=== PATIENT | male | born 1995 | race Caucasian/White ===

== ENCOUNTER 2025-02-02 13:23 | Inpatient (IN) | payer OTHER, SELFPAY ==
[2025-02-02] VITALS (14 sets, daily range): BP systolic 112–143; BP diastolic 69–84; BMI 33.3
--- NOTE | 2025-02-02 10:14 | ED.GENMED ---
History of Present Illness
General
Chief Complaint: Wound Check/Suture Removal
Source: patient, records and police
Exam Limitations: none
Time Seen by Provider: 02/02/25 09:37
Nursing documentation reviewed up to this point in time: agreed with
History of Present Illness
History of Present Illness:
29-year-old male with extensive medical history including insulin-dependent diabetes, CAD, CHF, CKD, Guillain-Potts� syndrome, right BKA and recent left 1st and 2nd toe amputation presents to the emergency room from [facility]
for evaluation of pain and bleeding from left foot. Patient reports that he is from [place] and that he receives most of his care throughout his life at [facility] in [place]. He says that unfortunately because of his Guillain-Potts�
syndrome he will sometimes drag his foot and sustained a bad foot wound on his left foot that ultimately became infected and he developed osteomyelitis and required amputation of his 1st and 2nd toe. This was done while incarcerated�was transported
to [facility] for this procedure. Procedure was on 01/21/2025. He says that he also had a heel wound on the left that was debrided at that time. He says that he was discharged on 01/24/2025 and was transported to [place]
in police custody for incarceration in [facility]. He says that after he got off of the plane from [place] he was having bleeding and pain from the surgical sites and was transported to [facility]. He says that he was admitted
at [facility] until yesterday at which point he was discharged back to skilled nursing. Today he bled through his dressing mainly from his heel wound on the left. I spoke to the medical staff at present and they had trouble stopping the bleeding with direct
pressure and so he was referred to the ER. He does have pain in the left foot after the operation but no drainage noted. No other acute issues. He is not apparently on blood thinners.
Review of Systems
Review of Systems
All Other Systems: ROS reviewed and negative except as documented in HPI and ROS
Constitutional: Denies fever
Skin: Reports other (Bleeding from left foot wound)
Phy Exam
Physical Exam
Physical Exam:
General: Awake, alert, oriented x3; no acute distress
Head: Normocephalic, atraumatic
Eyes: Conjunctiva normal
Throat: Airway intact, handling secretions
Neck: Trachea midline, no JVD
Lungs: Clear to auscultation bilaterally, no wheezing, rales, rhonchi
Heart: Regular rate and rhythm, no murmurs, gallops, or rubs
Abd: Soft, non distended, nontender
Skin: Patient has approximately 2 cm diameter wound on the medial aspect of the right heel with slow steady bleeding�oozing, no pulsatile bleeding; no drainage, no erythema the skin or warmth; he also has surgical incision on the tip of the foot
status post amputation of the 1st and 2nd digits of the left foot�sutures remain in place, no wound dehiscence, no drainage or erythema and no bleeding; very minor scab on the right BKA stump but no erythema, warmth or signs of acute infection
Extremities: Right BKA, left foot findings as above
Scores
Heart Failure Risk
Heart Failure Risk Score: Not Applicable
Heart Score for Chest Pain Patients
STEMI patient?: Not applicable
Withdrawal Assessment of Alcohol
Withdrawal Assessment Completed?: Not applicable
Course
Orders/Labs/Results
Orders:
Orders
02/02/25 10:33
PODIATRY CONSULT Urgent
Consulting Provider: Silvina Whatley
Was physician already notified: Yes
02/02/25 10:39
Complete Blood Count/With Diff Urgent
Hemoglobin A1c [Glycohemoglobin (HgbA1c)] Urgent
02/02/25 11:30
Cardiovascular Evaluation Urgent
Comprehensive Metabolic Panel Urgent
02/02/25 12:14
0.9% Sodium Chloride 1000 ml [Nss] 1,000 ml IV BOLUS
Hydrocodone 5/APAP 325 [[place] 5/325] 1 tablet PO NOW STA
02/02/25 12:23
Type+Screen Urgent
PTT Urgent
Prothrombin Time Urgent
Abnormal Lab Results
02/02/25 02/02/25
10:39 11:30
RBC 2.71 L 10^6/uL
(4.70-6.10)
Hgb 7.6 L g/dL
(13.0-18.0)
Hct 23.9 L %
(39.0-52.0)
MCHC 31.8 L g/dL
(33.0-37.0)
RDW 16.4 H %
(11.5-14.5)
Plt Count 412 H 10^3/uL
(130-400)
MPV 11.2 H fL
(7.4-10.4)
Abs Immat Gran (auto) 0.1 H 10^3/uL
(0-0.05)
Absolute Neuts (auto) 6.9 H 10^3/uL
(1.4-6.5)
Absolute Monos (auto) 0.7 H 10^3/uL
(0.1-0.6)
Immature Gran % 1.3 H %
(0-0.5)
Lymphocytes % 17.9 L %
(20.5-51.1)
BUN 60 H mg/dl
(9-20)
Glucose 327 H mg/dl
(70-99)
Triglycerides 316 H mg/dl
(10-149)
VLDL Cholesterol, Calc 63 H mg/dl
(0-30)
02/02/25 10:39
02/02/25 11:30
Vital Signs
Initial and Last Documented VS:
Initial Vital Signs
Temp Pulse Resp BP Pulse Ox
36.7 C 82 16 143/84 98
02/02/25 09:17 02/02/25 09:17 02/02/25 09:17 02/02/25 09:17 02/02/25 09:17
Last Documented Vital Signs
Temp Pulse Resp BP Pulse Ox
36.7 C 80 9 143/84 98
02/02/25 09:17 02/02/25 10:30 02/02/25 10:30 02/02/25 09:17 02/02/25 10:16
MDM/Problems Addressed
Differential Diagnosis Includes:
Chronic wounds
MDM/Problems Addressed:
29-year-old male with complicated recent history presents to the ER essentially for uncontrolled bleeding from recently debrided left heel wound. He also had recent amputation of the first second digit and has clean appearing incision today with no
bleeding. His vital signs are normal. Physical exam as above. I applied Surgicel and gauze dressing for hemostasis of heel wounds. They do not appear necessarily to be acutely infected but he does have area of necrotic appearing tissue near the
heel wound and with poorly controlled bleeding I discussed with podiatry for assessment. Will check a set of baseline lab work. Reassess after the above. I did make record requests with both [facility] and [facility] from recent
admissions to try to obtain collateral history.
Reviewed chart from [facility]�it sounds like he had osteomyelitis and there was concern for necrotizing infection with subcutaneous emphysema at the time. We are still awaiting chart from [facility].
Labs reviewed: CBC shows anemia to 7.6 hemoglobin today�patient says that his baseline runs around 9.5. Still has some light oozing from his wound but with Surgicel dressing applied and has greatly improved. Discussed with podiatry they will
consult on patient. His chemistry today shows marked hyperglycemia to 327 and given this finding in the setting of open wound to the foot I think he does need tighter glucose control. Will plan to admit for trending of hemoglobin, podiatry
consultation and better glucose control. Discussed case with hospitalist for admission.
Chronic conditions affecting care:
Insulin-dependent diabetes, Guillain-Potts� syndrome
*Pulse Oximetry
SaO2: 98
Oxygen Mode of Delivery: Room air
Patient hypoxic: no (98%)
*Critical Care Note
Total Time (30-74mins, 75-104mins- exclusive of procedures): Not Applicable
Data Reviewed
Source: patient, records and police
Patient Management
Discussion with other providers: Hospitalist (Discussed with hospitalist) and Baggage Agent (Discussed with podiatry)
Escalation/DeEscalation of care consider admission/obs:
Admission indicated
ED Attending Note
-
Portions of this chart may have been created with voice recognition software.� Occasional wrong word or��sound alike� substitutions may have occurred due to the inherent limitations of voice recognition software.
Discharge Plan
Departure
Patient Disposition: Admit
Date of Disposition: 02/02/25
Time of Disposition: 12:25
Admit to doctor: Silas
Presentation/result/management discussed w/ accepting MD/DO: Hospitalist
Discharge Problem:
Hyperglycemia, Acute blood loss anemia, Post-op bleeding, Wound, open, foot
Referrals:
[facility] [Family Provider, General]
Interventions
Interventions:
*Risk Screen - Suicide Last Done: 02/02/25 09:17
*General Assessment Last Done: 02/02/25 09:17
*Neglect/Abuse Screening Last Done: 02/02/25 09:17
*ED COVID-19 Vaccine History Last Done: 02/02/25 10:42
Discharge Date and Time
Print Language: IVORIAN
[2025-02-02 10:45] LABS: Hematocrit 23.9 % (39.0-52.0); Hemoglobin 7.6 g/dL (13.0-18.0); Mean Corp Hgb Conc. 31.8 g/dL (33.0-37.0); Mean Corpuscular Volume 88.2 fL (80.0-94.0); Nucleated Red Blood Cells % 0 % (-); Platelet Count 412 10^3/uL (130-400); Red Cell Dist. Width 16.4 % (11.5-14.5)
[2025-02-02 11:52] LABS: ALT (SGPT) 22 U/L (0-50); AST (SGOT) 24 U/L (17-59); Albumin 3.6 g/dl (3.5-5.0); Alkaline Phosphatase 93 U/L (38-126); Blood Urea Nitrogen 60 mg/dl (9-20); Calcium 8.6 mg/dl (8.4-10.2); Carbon Dioxide 29 mmol/L (22-30); Chloride 100 mmol/L (98-107); Estimated Creatinine Clearance 117 ml/min; Glucose 327 mg/dl (70-99); HDL Cholesterol 33 mg/dl; LDL Cholesterol, Calculated 87 mg/dl; Potassium 4.6 mmol/L (3.5-5.1); Sodium 135 mmol/L (135-145); Total Protein 6.9 g/dl (6.3-8.2); Very Low Density Lipoprotein 63 mg/dl (0-30); eGFR > 60.00
--- NOTE | 2025-02-02 12:21 | HPS.HSE ---
Family Physician
-
Family Physician: Facility [facility]. [facility]
Chief Complaint
-
bleeding wound
History of Present Illness
Mr. Sang Anderson is a 29 yo man with hx IDDM, CAD with hx multiple PCI, CHF, CKD, GBS (dx 2018), right BKA, chronic left heel wound and recent left first and second toe amputation (01/21/25), who presents to the ER with pain and bleeding from
wound in left foot.
Patient is from [place]. Due to GBS, he sometimes drags left foot and sustained wound which became infected, he developed osteo and is s/p amputation of 1st and 2nd toe (01/21/25). This was done while patient was incarcerated. Patient was
transported to [place] on 01/24/25 to police custody for incarceration in [facility]. He had bleeding after he got off plane and was hospitalized at [facility]. Patient was discharged yesterday. He bled through dressing today, and
was therefore brought to the ER.
Patient states at recent hospitalization at [place], his pain was controlled and he received local wound care, no surgical intervention.
Currently states pain in heel is getting worse. He states this area never stopped bleeding since he arrived to [place] last week.
No fevers/chills. No shortness of breath. He states the weakness in his left lower extremity from GBS has been getting worse over past several months. No nausea/vomiting/diarrhea. No abdominal pain.
Medical History
Past Medical History
Past Medical History: Reports Other (IDDM, CAD, CHF, CKD, GBS, right BKA)
Past Surgical History: Reports Orthopedic (first and second left toe amputations)
Social History
Tobacco: Non-smoker
Drug: None
Family History
Family History: Not pertinent
Allergies / Home Medications
Allergies reflects when Allergies were last updated in [facility].
Home Medications with original date entered in [facility]
Allergy/Medication List:
Allergies
Allergy/AdvReac Type Severity Reaction Status Date / Time
ibuprofen Allergy Unknown Unknown Verified 02/02/25 09:14
oxycodone Allergy Unknown Unknown Verified 02/02/25 09:14
Penicillins Allergy Unknown Unknown Verified 02/02/25 09:14
sweet potato Allergy Unknown Unknown Verified 02/02/25 09:14
tuna oil Allergy Unknown Unknown Verified 02/02/25 09:14
turkey Allergy Unknown Unknown Verified 02/02/25 09:14
Home Medications
acetaminophen 300 mg-codeine 30 mg tablet 2 tab PO .TAPER Pain 02/02/25
aspirin 81 mg tablet,delayed release 81 mg PO DAILY Blood Clot Prevention/Tx 02/02/25
atorvastatin 80 mg tablet 80 mg PO HS High Cholesterol 02/02/25
carvedilol 25 mg tablet 25 mg PO BID Heart Failure 02/02/25
clopidogrel 75 mg tablet 75 mg PO DAILY Blood Clot Prevention/Tx 02/02/25
insulin glargine 100 unit/mL (3 mL) subcutaneous pen (Lantus Solostar U-100 Insulin) 30 unit SC AMHS Diabetes 02/02/25
insulin lispro 100 unit/mL subcutaneous pen 5 unit SC AC Diabetes 02/02/25
isosorbide mononitrate 60 mg tablet,extended release 24 hr 60 mg PO DAILY Heart Disease/Condition 02/02/25
pantoprazole 40 mg tablet,delayed release (Protonix) 40 mg PO DAILY Gastrointestinal Issue 02/02/25
ranolazine 1,000 mg tablet,extended release,12 hr 1,000 mg PO BID Heart Disease/Condition 02/02/25
torsemide 20 mg tablet 40 mg PO DAILY Fluid Retention/Swelling 02/02/25
Review of Systems
-
History Source: Patient
A 12 point ROS was completed and negative except as noted: Yes
Physical Exam
Vital Signs
Vital Signs
Temp Pulse Resp BP Pulse Ox
98.1 F 80 9 143/84 98
02/02/25 09:17 02/02/25 10:30 02/02/25 10:30 02/02/25 09:17 02/02/25 10:16
Physical Exam
General: No Apparent Distress
HEENT: PERRLA
Respiratory: Clear; No Wheezes
Cardiac: S1/S2 and Regular Rhythm
GI: Soft and Non Tender
Musculoskeletal: Other (right BKA; left foot with steristrips on left heel; sutures in place s/p toe amputation )
Neuro: AO x 3
Psych: Calm
Laboratory Results
-
02/02/25 10:39
02/02/25 11:30
Laboratory Results
Total Bilirubin 0.5 mg/dl (0.2-1.3) 02/02/25 11:30
AST 24 U/L (17-59) 02/02/25 11:30
ALT 22 U/L (0-50) 02/02/25 11:30
Alkaline Phosphatase 93 U/L (38-126) 02/02/25 11:30
Data Reviewed
-
Diagnostic Radiology: Report Reviewed by me
Lab Data: Labs Reviewed by me
Impression/Plan
-
Mr. Sang Anderson is a 29 yo man with hx DM 1, CAD, CHF, CKD, GBS, right BKA and recent left first and second toe amputation who presents to the ER with pain and bleeding from wound in left foot.
Triage VS: T 36.7 C, P 82, RR 16, BP 143/84, SpO2 98%
LABS: WBC 9.7, Hg 7.6, PLT 412, Na 135, K+ 4.6, Cl 100, CO2 29, BUN 60, Cr 1.2, Glucose 327, liver enzymes WNL
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
Osteomyelitis of left hallux s/p amputation on 01/21/25
-patient recently hospitalized in [place] where CT showed subcutaneous emphysema in the hallux s/p 1st and 2nd amputation
-s/p debridement of heel now with persistent bleeding. Per Dr. Posey, small area of necrosis in center, may need further debridement
-Podiatry consulted
-obtain LE arterial US
-pain control
Acute Blood Loss Anemia
-monitor on telemetry until Hg stable
-transfuse 1 unit for Hg <8, given patient's significant cardiac history
-trend Hg
IDDM
Hyperglycemia
-insulin 8 units subQ now
-patient is on Lantus 30units BID at home; aspart 5 units TID pre-meals; start with Lantus 20 units BID and aspart 3 units - adjust as needed
-ISS low
CAD
Hx PCI
-patient states that last stent in his heart was over a year ago
-hold Plavix in setting of bleed
-aspirin 81mg PO QD
-Atorvastatin 80mg PO qhs
-DATA GOVERNANCE ANALYST Coreg, Ranexa
Essential HTN
-DATA GOVERNANCE ANALYST Coreg, Imdur
HF, unknown EF
-continue DATA GOVERNANCE ANALYST Coreg, Imdur
-DATA GOVERNANCE ANALYST Torsemide
Guillian [place]
-PT consult when cleared by Podiatry
GERD
-DATA GOVERNANCE ANALYST Protonix
DVT PPx - SCD (on left)
FULL CODE
76 minutes spent on patient care
[2025-02-02 12:24] LABS: Glycohemoglobin (HgbA1c) 8.1 % (4.0-5.6)
[2025-02-02] MEDS: NOVOLIN R 8 UNITS SC (13:05)
[2025-02-02] MEDS: NSS 1000 IV (13:06)
[2025-02-02] MEDS: NORCO 5/325 1 TABLET PO ×2 (13:06→20:19)
[2025-02-02 13:19] LABS: INR 0.93; PT 13.0 Sec (11.4-14.6)
[2025-02-02 13:20] LABS: APTT 24.3 Sec (23.4-35.0)
[2025-02-02 14:21] LABS: Glucose - Point of Care 272 mg/dl (70-99)
--- NOTE | 2025-02-02 14:38 | CM ---
Patient seen in ED. Patient is currently with guards and plan is to [facility] when medically appropriate. CM will call to [facility] to confirm plan. CM will continue to follow for discharge planning needs.
Plan; return to [facility]
[2025-02-02] MEDS: DILAUDID 0.5 MG IV ×2 (15:58→22:39)
--- NOTE | 2025-02-02 16:42 | PTCARENOTE ---
1632- Pt received to room 328 accompanied by 2 officers.
[2025-02-02 16:51] LABS: Glucose - Point of Care 183 mg/dl (70-99)
--- NOTE | 2025-02-02 17:35 | PTCARENOTE ---
Rn institutional research coordinator- Patient requesting to see the larry. Call placed and left message.
[2025-02-02] MEDS: NOVOLOG FLEXPEN 3 UNITS SC (18:18)
[2025-02-02] MEDS: NOVOLOG FLEXPEN-LOW RESISTANCE 1 UNITS SC (18:18)
[2025-02-02] MEDS: RANEXA EXTENDED RELEASE 1000 MG PO (20:16)
[2025-02-02] MEDS: COREG 25 MG PO (20:16)
--- NOTE | 2025-02-02 22:00 | PTCARENOTE ---
pt blood transfusion completed. vss. no reaction noted. later pt had a soft bm. then a some amount of BRBPR. pt reports hx of hemorrhoids. hgb 8.2 informed ammunition assembly ii laborer Shante. pt has serial h&h already ordered.
[2025-02-02 22:34] LABS: Hemoglobin 8.2 g/dL (13.0-18.0)
[2025-02-02 22:35] LABS: Glucose - Point of Care 215 mg/dl (70-99)
[2025-02-02] MEDS: LIPITOR 80 MG PO (22:37)
[2025-02-02] MEDS: LANTUS 0.2 UNITS SC (22:37)
[2025-02-03] MEDS: NORCO 5/325 1 TABLET PO ×5 (00:47→20:49)
[2025-02-03 03:07] VITALS: BP 126/82
[2025-02-03] MEDS: DILAUDID 0.5 MG IV ×4 (03:23→16:28)
[2025-02-03 06:00] VITALS: BMI 32.1
[2025-02-03 07:50] LABS: Glucose - Point of Care 97 mg/dl (70-99)
[2025-02-03] MEDS: NOVOLOG FLEXPEN-LOW RESISTANCE SC ×3 (08:05→16:37)
[2025-02-03 08:07] VITALS: BP 120/79
[2025-02-03] MEDS: LANTUS 0.2 UNITS SC ×2 (08:07→20:49)
[2025-02-03] MEDS: NOVOLOG FLEXPEN 3 UNITS SC ×3 (08:07→16:37)
[2025-02-03] MEDS: ASPIR LOW (ENTERIC COATED) 81 MG PO (08:08)
[2025-02-03] MEDS: PROTONIX 40 MG PO (08:08)
[2025-02-03] MEDS: DEMADEX 40 MG PO (08:08)
[2025-02-03] MEDS: RANEXA EXTENDED RELEASE 1000 MG PO ×2 (08:08→19:55)
[2025-02-03] MEDS: COREG 25 MG PO ×2 (08:08→19:55)
[2025-02-03] MEDS: IMDUR (EXTENDED RELEASE) 60 MG PO (08:09)
[2025-02-03 08:16] LABS: Hematocrit 26.0 % (39.0-52.0); Hemoglobin 8.3 g/dL (13.0-18.0); Mean Corp Hgb Conc. 31.9 g/dL (33.0-37.0); Mean Corpuscular Volume 87.8 fL (80.0-94.0); Nucleated Red Blood Cells % 0 % (-); Platelet Count 390 10^3/uL (130-400); Red Cell Dist. Width 16.7 % (11.5-14.5)
[2025-02-03 08:43] LABS: Blood Urea Nitrogen 45 mg/dl (9-20); Calcium 8.7 mg/dl (8.4-10.2); Carbon Dioxide 30 mmol/L (22-30); Chloride 105 mmol/L (98-107); Estimated Creatinine Clearance > 125 ml/min; Glucose 95 mg/dl (70-99); Magnesium 2.0 mg/dl (1.6-2.3); Potassium 4.1 mmol/L (3.5-5.1); Sodium 140 mmol/L (135-145); eGFR > 60.00
--- NOTE | 2025-02-03 10:25 | PTCARENOTE ---
pt noted to be bleeding through dressing on LLE. MD Causey and MD Lora made aware. MD lora just left bedside. MD cauesy to arrive around 1200. andriy bandage applied to provided pressure; intervention endorsed by MD Causey. H&H to
be walker at 1330. pt denies feeling lightheaded/dizzy. plan of care continues to be followed.
[2025-02-03 11:23] VITALS: BP 128/77
[2025-02-03 11:42] LABS: Glucose - Point of Care 90 mg/dl (70-99)
--- NOTE | 2025-02-03 12:59 | CM ---
Pt admitted from ED with bleeding wound due to dragging his foot due to Guillain-Potts� Syndrome. Recently moved from [place] to [place].
CM following for discharge to [facility] when medically cleared.
Report: [phone]
--- NOTE | 2025-02-03 13:24 | W.PN.HOSP.TC ---
Today's Communication/Plan
-
Hold Plavix
Pressure to the wound.
Podiatry evaluation
Trend hemoglobin transfuse if below 8
Assessment / Plan
Assessment / Plan
Impression
Mr. Sang Anderson is a 29 yo man with hx DM 1, CAD, CHF, CKD, GBS, right BKA and recent left first and second toe amputation who presents to the ER with pain and bleeding from wound in left foot.
Chronic medial heel wound left foot with soft tissue hemorrhage secondary possibly mechanical trauma and antiplatelet/Plavix
Osteomyelitis of the left hallux status post amputation on 01/21/2025.
Acute blood loss anemia requiring transfusion
IDDM with hyperglycemia
CAD.
Essential hypertension
Heart failure unknown EF, compensated
History of GBS
GERD.
Plan:
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
Osteomyelitis of left hallux s/p amputation on 01/21/25
-patient recently hospitalized in [place] where CT showed subcutaneous emphysema in the hallux s/p 1st and 2nd amputation
-s/p debridement of heel now with persistent bleeding. Per Dr. Posey, small area of necrosis in center, may need further debridement
-Podiatry consulted
- Arterial ultrasound without significant stenosis Limited study given prior amputation.
-pain control
Acute Blood Loss Anemia
-monitor on telemetry until Hg stable
- S/p transfusion 1 unit for Hg <8, given patient's significant cardiac history
-trend Hg transfuse to keep above 8
IDDM
Hyperglycemia
-insulin 8 units subQ now
-patient is on Lantus 30units BID at home; aspart 5 units TID pre-meals; start with Lantus 20 units BID and aspart 3 units - adjust as needed
-ISS low
CAD
Hx PCI
-patient states that last stent in his heart was over a year ago
-hold Plavix in setting of bleed
-aspirin 81mg PO QD
-Atorvastatin 80mg PO qhs
-HARNESS CUTTER Coreg, Ranexa
Essential HTN
-HARNESS CUTTER Coreg, Imdur
HF, unknown EF
-continue HARNESS CUTTER Coreg, Imdur
-HARNESS CUTTER Torsemide
Guillian [place]
-PT consult when cleared by Podiatry
GERD
-HARNESS CUTTER Protonix
DVT PPx - SCD (on left)
FULL CODE
Anticipated Discharge: 24 - 48 hours
Subjective/Interval History
-
Date of Service: February 03, 2025
Objective Data
-
Labs:
Laboratory Results
02/03/25 02/03/25 02/03/25
02:00 03:15 07:46
WBC 7.7
Hgb Cancelled Cancelled 8.3 L
Hct Cancelled 26.0 L
Plt Count 390
Sodium 140
Potassium 4.1
Chloride 105
Carbon Dioxide 30
BUN 45 H
Creatinine 1.1
Glucose 95
Calcium 8.7
02/03/25 02/03/25 02/03/25
10:00 11:15 13:30
WBC
Hgb Cancelled Cancelled Pending
Hct Cancelled Pending
Plt Count
Sodium
Potassium
Chloride
Carbon Dioxide
BUN
Creatinine
Glucose
Calcium
02/03/25 02/03/25
19:15 21:30
WBC
Hgb Cancelled Pending
Hct Cancelled Pending
Plt Count
Sodium
Potassium
Chloride
Carbon Dioxide
BUN
Creatinine
Glucose
Calcium
Vital Signs:
Vital Signs
Temp Pulse Resp BP Pulse Ox
99.1 F 84 14 128/77 99
02/03/25 11:23 02/03/25 11:23 02/03/25 11:23 02/03/25 11:23 02/03/25 11:23
I&O
02/02/25 02/03/25 02/04/25
06:59 06:59 06:59
Intake Total 730 / 730 1080 / 1080
Output Total 1400 / 1400
Balance -670 / -670 1080 / 1080
Physical Exam
-
General: Well Developed and No Apparent Distress
HEENT: Normocephalic, Atraumatic and Moist Mucous Membranes
Respiratory: Clear to Auscultation
Cardiac: Regular Rhythm and S1/S2; Negative Murmur, Rub or Gallop
GI: Soft, Nontender, Nondistended and Normal Bowel Sounds; Negative Organomegaly
Rectal: Deferred by Provider
Musculoskeletal: No Clubbing, No Cyanosis, No Edema and Other (Right BKA)
Skin: Negative Rash
Neuro: Nonfocal/Grossly Intact
--- NOTE | 2025-02-03 13:58 | CON.MD ---
Consultation - Medical
-
Consult for left foot pain and bleeding. 29 year old male admitted with bleeding from left heel. Amputation left 1,2 toes and debridement of left medial heel ulcer on 01/21/25. Taken to the ED as patient bled through surgical dressings. PMH
includes IDDM, CAD, CHF, CKD, Guillain-[place] as well as right BKA.
Patient seen with Nisha from wound care. Dressing clean and in tact with blood soaked through at the medial heel. Dressing removed to reveal no local edema or erythema and no cellulitis. Circular wound at the medial heel approximately 3 cm in
diameter with stable wound edges, central granulation and no sign of soft tissue necrosis. No malodor or drainage present and no active bleeding. Surgical site from left 1,2 toe amputation stable with sutures in tact. No dehiscence and no erythema
present at the forefoot area.
WBC 7.7 with most recent Hgb 26.0 and afebrile. Ultrasound performed shows DP and PT arteries with monophasic wave forms. Arterial duplex of more proximal arteries with multiphasic wave forms. IRVING unmeasurable due to non compressible arteries.
Impression
-Left heel surgical site with uncontrolled bleeding
Status post left hallux and 2nd digit amputation due to osteomyelitis and debridement of left heel ulcer 01/21/25
No sign of surrounding soft tissue infection Ulcer granular with stable edges and no current active bleeding.
Ultrasound shows noncompressible arteries. With an open surgical site, calcified arteries do not compress with normal bandaging causing the wound to bleed with any movement.
Discussed with wound care use of alginate dressing to promote blood clotting at sight
If abnormal bleeding continues, may consider splint to prevent ankle movement
No surgical intervention needed at this time
-IDDM
-CHF
-CAD
-CKD
-Guillain-[place]
[2025-02-03 14:13] LABS: Hematocrit 26.7 % (39.0-52.0); Hemoglobin 8.6 g/dL (13.0-18.0)
[2025-02-03 15:00] VITALS: BP 139/72
[2025-02-03 15:07] VITALS: BMI 32.1
--- NOTE | 2025-02-03 15:41 | WOUNDNOTE ---
[facility] RN note: Patient admitted with left bleeding newly debrided heel wound.
See H&P for complete history.
PMH: IDDM, CHF, CAD, CKD, Guillain-[place]
Wound Location and type/assessment: Patient admitted with left bleeding newly debrided left heel wound (01/21). Patient with recent amputations of first and second toe with sutures intact. Heel with saturated sanguinous dressings, but no erythema,
pain or odor noted. Right BKA intact. Patient is able to turn self in bed and sacrum is intact.
Appetite: Fair
Pressure redistribution devices in place: Versa Care with Accumax, left heel off-loaded with pillow under calf.
Plan: Consulted with Dr. Whatley and plan is for daily wound care to heel with alginate dressing to help manage drainage. Will confirm orders with hospitalist and update nurse. Updated care plan and will follow as needed.
Note to case management of equipment requested for discharge:
Recommend follow up at wound care center upon discharge.
--- NOTE | 2025-02-03 15:52 | WOUNDNOTE ---
TOE [facility] SITE 1995, [id number]
--- NOTE | 2025-02-03 15:53 | WOUNDNOTE ---
LEFT HEEL 1995, [id number]
[2025-02-03 16:38] LABS: Glucose - Point of Care 100 mg/dl (70-99)
[2025-02-03 19:14] VITALS: BP 124/69
[2025-02-03 20:42] LABS: Glucose - Point of Care 132 mg/dl (70-99)
[2025-02-03] MEDS: LIPITOR 80 MG PO (20:49)
[2025-02-03 23:12] VITALS: BP 152/88
[2025-02-04 03:07] VITALS: BP 160/88
[2025-02-04 06:30] LABS: Hematocrit 27.1 % (39.0-52.0); Hemoglobin 8.5 g/dL (13.0-18.0)
[2025-02-04 07:00] VITALS: BP 174/101
--- NOTE | 2025-02-04 07:10 | PTCARENOTE ---
pt given prn norco at 2048 w/ =eff. pt later asked for dilaudid. informed him he was due for the norco =and that i would be back with that. returned and pt was alseep. checked on patient throughout the night and asked if he needed anything. pt
stated he was fine.
[2025-02-04 08:22] LABS: Glucose - Point of Care 334 mg/dl (70-99)
[2025-02-04] MEDS: DEMADEX 40 MG PO (08:37)
[2025-02-04] MEDS: LANTUS 0.2 UNITS SC (08:37)
[2025-02-04] MEDS: IMDUR (EXTENDED RELEASE) 60 MG PO (08:38)
[2025-02-04] MEDS: RANEXA EXTENDED RELEASE 1000 MG PO (08:38)
[2025-02-04] MEDS: PROTONIX 40 MG PO (08:38)
[2025-02-04] MEDS: COREG 25 MG PO (08:38)
[2025-02-04] MEDS: ASPIR LOW (ENTERIC COATED) 81 MG PO (08:38)
[2025-02-04] MEDS: NORCO 5/325 1 TABLET PO (08:38)
[2025-02-04] MEDS: NOVOLOG FLEXPEN 3 UNITS SC ×2 (08:39→12:23)
[2025-02-04] MEDS: NOVOLOG FLEXPEN-LOW RESISTANCE 4 UNITS SC (08:39)
[2025-02-04 10:45] VITALS: BP 159/87
[2025-02-04 11:47] LABS: Troponin I < 0.012 ng/ml
[2025-02-04 12:15] LABS: Glucose - Point of Care 420 mg/dl (70-99)
[2025-02-04] MEDS: NOVOLOG FLEXPEN-LOW RESISTANCE 6 UNITS SC (12:24)
[2025-02-04 12:56] LABS: Glucose 357 mg/dl (70-99)
--- NOTE | 2025-02-04 13:22 | CM ---
Pt cleared for discharge to [facility] today. Pt to return to [facility] via shelter transport.
Report: [phone]
--- NOTE | 2025-02-04 13:36 | W.PN.UPDATE ---
Update Note
Progress Note Update
Dressing checked which is clean and dry with no bleeding through bandaging at the heel. With proper wound care continued, patient stable from a wound standpoint for discharge.
--- NOTE | 2025-02-04 14:13 | CHAP ---
Emotional and spiritual support given as requested. Bible provided, prayer shared.
[2025-02-04 14:19] LABS: Glucose - Point of Care 356 mg/dl (70-99)
--- NOTE | 2025-02-04 14:24 | W.DS.TRANS ---
DC Summary - Service Line Coordinator
-
Discharge Instructions:
Sleep Apnea Risk Low
Discharge Diagnosis/Procedures Chronic medial heel wound left foot with soft
tissue hemorrhage secondary possibly mechanical
trauma and antiplatelet/Plavix
Osteomyelitis of the left hallux status post
amputation on 01/21/2025.
Acute blood loss anemia requiring transfusion
IDDM with hyperglycemia
CAD.
Essential hypertension
Heart failure unknown EF, compensated
History of GBS
GERD.
Diet Diabetic, Carb Controlled
Instructions:
Stand-Alone Forms:
Changes to Home Medications: No
Discharge Medications:
DC Medications w/original date entered in [employer]
acetaminophen 300 mg-codeine 30 mg tablet 2 tab PO .TAPER Pain 02/02/25
aspirin 81 mg tablet,delayed release 81 mg PO DAILY Blood Clot Prevention/Tx 02/02/25
atorvastatin 80 mg tablet 80 mg PO HS High Cholesterol 02/02/25
carvedilol 25 mg tablet 25 mg PO BID Heart Failure 02/02/25
clopidogrel 75 mg tablet 75 mg PO DAILY Blood Clot Prevention/Tx 02/02/25
insulin glargine 100 unit/mL (3 mL) subcutaneous pen (Lantus Solostar U-100 Insulin) 30 unit SC AMHS Diabetes 02/02/25
insulin lispro 100 unit/mL subcutaneous pen 5 unit SC AC Diabetes 02/02/25
isosorbide mononitrate 60 mg tablet,extended release 24 hr 60 mg PO DAILY Heart Disease/Condition 02/02/25
pantoprazole 40 mg tablet,delayed release (Protonix) 40 mg PO DAILY Gastrointestinal Issue 02/02/25
ranolazine 1,000 mg tablet,extended release,12 hr 1,000 mg PO BID Heart Disease/Condition 02/02/25
torsemide 20 mg tablet 40 mg PO DAILY Fluid Retention/Swelling 02/02/25
Home Medication Changes
Pending Results: No
[2025-02-04] MEDS: NOVOLOG FLEXPEN 10 UNITS SC (14:42)
[2025-02-04 15:00] VITALS: BP 152/93
== END 2025-02-04 15:23 | DRG 920 ==
LOC: 3 WEST ACU 13:23
PROVIDERS: ADMITTING PHYSICIAN Student in an Organized Health Care Education/Training Program; ATTENDING PHYSICIAN Internal Medicine; CONSULT PHYSICIAN Podiatrist Foot & Ankle Surgery; EMERGENCY PHYSICIAN Emergency Medicine
PROC: 30233N1 Transfusion of Nonautologous Red Blood Cells into Peripheral Vein, Percutaneous Approach (ICD-10-PCS; 2025-02-02)
DX: L76.22 Postprocedural hemorrhage of skin and subcutaneous tissue following other procedure (principal); D62 Acute posthemorrhagic anemia; I13.0 Hypertensive heart and chronic kidney disease with heart failure and stage 1 through stage 4 chronic kidney disease, or unspecified chronic kidney disease; G61.0 Guillain-Barre syndrome; M86.9 Osteomyelitis, unspecified; T79.7XXA Traumatic subcutaneous emphysema, initial encounter; L97.424 Non-pressure chronic ulcer of left heel and midfoot with necrosis of bone; E10.65 Type 1 diabetes mellitus with hyperglycemia; Z79.4 Long term (current) use of insulin; I25.10 Atherosclerotic heart disease of native coronary artery without angina pectoris; I50.9 Heart failure, unspecified; N18.9 Chronic kidney disease, unspecified; K21.9 Gastro-esophageal reflux disease without esophagitis; E10.69 Type 1 diabetes mellitus with other specified complication; E10.22 Type 1 diabetes mellitus with diabetic chronic kidney disease; Z89.511 Acquired absence of right leg below knee; Z98.61 Coronary angioplasty status
CPT/HCPCS: 80048; 80053; 80061; 82947; 82962; 83036; 83735; 84484; 85014; 85018; 85025; 85610; 85730; 86850; 86900; 86901; 86920; 87070; 93005; 93922; 93925; 99285; P9016

== ENCOUNTER 2025-02-07 19:19 | Inpatient (IN) | payer OTHER, SELFPAY ==
[2025-02-07] VITALS (7 sets, daily range): BP systolic 108–145; BP diastolic 70–87; BMI 32.7
[2025-02-07 13:50] LABS: Glucose - Point of Care 342 mg/dl (70-99)
--- NOTE | 2025-02-07 15:11 | ED.GENMED ---
History of Present Illness
<Poncho Nugent MD, Resident - Last Filed: 02/08/25 05:58>
General
Chief Complaint: Skin Problem
Source: patient and police
Time Seen by Provider: 02/07/25 14:21
History of Present Illness
History of Present Illness:
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
heel and feeling light headed and week. He was at the hospital last week for similar symptoms and was discharged from the hospital following transfusion with a unit of blood. He states that his bleeding from his heel continued after he was
discharged from the hospital to the correctional facility and that he started developing symptoms of anemia. He states that he has been going through multiple dressings for his left foot and the correctional officers confirm that he was bleeding
while brought to the dispensary.
Past History
<Poncho Nugent MD, Resident - Last Filed: 02/08/25 05:58>
Past History
ED Past Medical History: CHF, HTN, IDDM, [place], Other (BKA right, Two toe amputation left, left heel debridement) and Other (Guillian [place], Chronic Inflammatory Demylinating Polyneuropathy)
ED Past Surgical History: Orthopedic (Right BKA, left two toe amputation, left heel debridement)
Social History
Tobacco: Non-smoker
Drug: None
Review of Systems
<Poncho Nugent MD, Resident - Last Filed: 02/08/25 05:58>
Review of Systems
Allergies reviewed?: Yes
Constitutional: Reports fatigue and chills
Phy Exam
<Poncho Nugent MD, Resident - Last Filed: 02/08/25 05:58>
General Physical Exam
General Presentation: moderate distress
General Skin: warm and dry
Cardiovascular Exam
Cardiovascular Exam: regular rate/rhythm and no murmur
Pulmonary Exam
Pulmonary Exam: lungs clear, no respiratory distress, no rales, no crackles and no wheezing
Gastrointestinal Exam
Gastrointestinal Exam: normal bowel sounds, non tender, soft and non distended
Musculoskeletal Exam
Musculoskeletal Exam: BKA (Right foot) and other (Left foot two toe amputation and left heel debridement (bleeding))
Course
<Poncho Nugent MD, Resident - Last Filed: 02/08/25 05:58>
Orders/Labs/Results
Orders:
Orders
02/07/25 Dinner
1800 calorie (15 carb) Diabetic
At Your Request: Full Participation
Does patient need a safe tray?: Yes
02/07/25 15:12
Electrocardiogram (*1) Stat
Reason for Study: Chest Pain
EKG- Treatment ONCE
02/07/25 15:34
Complete Blood Count/With Diff Urgent
Comprehensive Metabolic Panel Urgent
Troponin I Urgent
02/07/25 16:29
Tramadol HCl [Ultram] 50 mg PO NOW STA
02/07/25 16:45
Type+Screen Stat
BBK Wristband Number:
02/07/25 18:05
Oxycodone/Acetaminophen [Percocet 5/325] 1 tablet PO NOW STA
02/07/25 18:37
Splint [Braces/Immobilizers] As Directed
Type of Brace/Immobilizer: Other
Other brace/immobilizer: cam boot
Location for Brace/Immobilizer: left leg
Instructions: apply cam boot now monitor for any bleeding if bleeding please let CR[employer] SC[employer] INVESTIGATOR or
provider know as we will need to call podiatry
02/07/25 19:04
Admit/Transfer Patient As Directed
Co-Sign Provider:
Level of Care: Inpatient admission
Assign to:: Telemetry
Physician / Group: radha stockton
Diagnosis: Blood loss anemia from left heel wound
Reason for Telemetry: Arrhythmia
Date to Stop Telemetry: 02/10/25
Time to Stop Telemetry: 11:00
Reason for Hospitalization: Blood loss anemia from left heel wound
Expected length of stay greater than two midnights?: Yes
ELOS- Estimated Length of Stay in days: 5
I certify the patient meets the requirements for IP care: Yes
Code Status As Directed
Resuscitation Status: Full Code
02/07/25 19:13
PRN Pain Medication Management As Directed
May give lesser potent ordered pain med per pt: Yes
preference::
Protocol:: Medication orders for pain may be administered in a
manner that supports deferring to patient preference
when the pt is:
- Requesting an ordered lesser potent pain medication.
Least to most potent pain medications are defined
as: acetaminophen < NSAID < tramadol < opioids
(morphine, oxycodone, hydromorphone).
- Requesting a lesser dose of the same medication IF
ORDERED.
- Requesting a less intrusive route of administration
if both routes are prescribed by the provider (PO <
IV).
02/07/25 20:54
Acetaminophen [Tylenol] 650 mg PO Q4HPRN PRN
Bisacodyl [Dulcolax] 10 mg RECTAL [id number] PRN
Carvedilol [Coreg] 25 mg PO BID
Docusate W/Senna [Senokot-S] 1 tablet PO BIDPRN PRN
HYDROmorphone [Dilaudid] 0.5 mg IV Q4HPRN PRN
Ondansetron Injectable [Zofran] 4 mg IV Q6HPRN PRN
Polyethylene Glycol Powder [Miralax] 17 grams PO DAILYPRN PRN
insulin glargine [Lantus Solostar U-100 Insulin] 30 unit SC BID
02/07/25 20:54
VTE Contraindication Routine
VTE Mechanical Device Contraindication: Medical Contraindication
Pharmocologic Contraindication: Medical Contraindication
Comment: blleding anemia
Activity As Directed
Activity Level: As Tolerated
Intake/ Output As Directed
Frequency: Per unit guidelines
Vital Signs As Directed
Frequency: Per unit guidelines
Pt Eval And Treat Routine
Activity Level: As Tolerated
02/07/25 21:00
Ranolazine Extended Release [Ranexa Extended Release] 1,000 mg PO BID
02/07/25 22:00
H&H Urgent
Atorvastatin [Lipitor] 80 mg PO HS
Gabapentin [Neurontin] 300 mg PO TID
02/08/25 08:00
Duloxetine Delayed Release [Cymbalta Delayed Release] 30 mg PO DAILY
ISOSORBIDE MONOnitrate ER [Imdur (Extended Release)] 60 mg PO DAILY
Pantoprazole [Protonix] 40 mg PO DAILY
Torsemide [Demadex] 40 mg PO DAILY
02/09/25 06:00
Complete Blood Count/With Diff IN AM
Comprehensive Metabolic Panel IN AM
02/10/25 06:00
Complete Blood Count/With Diff IN AM
Comprehensive Metabolic Panel IN AM
02/10/25 11:00
DC Protocol for Telemetry ONCE
Abnormal Lab Results
02/07/25 02/07/25 02/07/25
13:48 15:34 16:45
RBC 2.77 L 10^6/uL
(4.70-6.10)
Hgb 7.8 L g/dL
(13.0-18.0)
Hct 24.8 L %
(39.0-52.0)
MCHC 31.5 L g/dL
(33.0-37.0)
RDW 17.0 H %
(11.5-14.5)
Plt Count 406 H 10^3/uL
(130-400)
Abs Immat Gran (auto) 0.1 H 10^3/uL
(0-0.05)
Absolute Monos (auto) 0.8 H 10^3/uL
(0.1-0.6)
Immature Gran % 0.8 H %
(0-0.5)
Carbon Dioxide 31 H mmol/L
(22-30)
BUN 26 H mg/dl
(9-20)
Glucose 318 H mg/dl
(70-99)
Calcium 8.1 L mg/dl
(8.4-10.2)
POC Glucose 342 H mg/dl
(70-99)
Crossmatch IS Only See Detail
02/07/25 15:34
02/07/25 15:34
Vital Signs
Initial and Last Documented VS:
Initial Vital Signs
Temp Pulse Resp BP Pulse Ox
98.4 F 94 18 145/85 98
02/07/25 12:57 02/07/25 12:57 02/07/25 12:57 02/07/25 12:57 02/07/25 12:57
Last Documented Vital Signs
Temp Pulse Resp BP Pulse Ox
98.2 F 95 20 114/72 100
02/08/25 11:00 02/08/25 11:00 02/08/25 11:00 02/08/25 11:00 02/08/25 11:00
<Reginald Zamudio MD - Last Filed: 02/08/25 15:04>
Orders/Labs/Results
Orders:
Orders
02/07/25 Dinner
1800 calorie (15 carb) Diabetic
At Your Request: Full Participation
Does patient need a safe tray?: Yes
02/07/25 15:12
Electrocardiogram (*1) Stat
Reason for Study: Chest Pain
EKG- Treatment ONCE
02/07/25 15:34
Complete Blood Count/With Diff Urgent
Comprehensive Metabolic Panel Urgent
Troponin I Urgent
02/07/25 16:29
Tramadol HCl [Ultram] 50 mg PO NOW STA
02/07/25 16:45
Type+Screen Stat
BBK Wristband Number:
02/07/25 18:05
Oxycodone/Acetaminophen [Percocet 5/325] 1 tablet PO NOW STA
02/07/25 18:37
Splint [Braces/Immobilizers] As Directed
Type of Brace/Immobilizer: Other
Other brace/immobilizer: cam boot
Location for Brace/Immobilizer: left leg
Instructions: apply cam boot now monitor for any bleeding if bleeding please let CR[employer] SC[employer] INVESTIGATOR or
provider know as we will need to call podiatry
02/07/25 19:04
Admit/Transfer Patient As Directed
Co-Sign Provider:
Level of Care: Inpatient admission
Assign to:: Telemetry
Physician / Group: radha stockton
Diagnosis: Blood loss anemia from left heel wound
Reason for Telemetry: Arrhythmia
Date to Stop Telemetry: 02/10/25
Time to Stop Telemetry: 11:00
Reason for Hospitalization: Blood loss anemia from left heel wound
Expected length of stay greater than two midnights?: Yes
ELOS- Estimated Length of Stay in days: 5
I certify the patient meets the requirements for IP care: Yes
Code Status As Directed
Resuscitation Status: Full Code
02/07/25 19:13
PRN Pain Medication Management As Directed
May give lesser potent ordered pain med per pt: Yes
preference::
Protocol:: Medication orders for pain may be administered in a
manner that supports deferring to patient preference
when the pt is:
- Requesting an ordered lesser potent pain medication.
Least to most potent pain medications are defined
as: acetaminophen < NSAID < tramadol < opioids
(morphine, oxycodone, hydromorphone).
- Requesting a lesser dose of the same medication IF
ORDERED.
- Requesting a less intrusive route of administration
if both routes are prescribed by the provider (PO <
IV).
02/07/25 20:54
Acetaminophen [Tylenol] 650 mg PO Q4HPRN PRN
Bisacodyl [Dulcolax] 10 mg RECTAL [id number] PRN
Carvedilol [Coreg] 25 mg PO BID
Docusate W/Senna [Senokot-S] 1 tablet PO BIDPRN PRN
HYDROmorphone [Dilaudid] 0.5 mg IV Q4HPRN PRN
Ondansetron Injectable [Zofran] 4 mg IV Q6HPRN PRN
Polyethylene Glycol Powder [Miralax] 17 grams PO DAILYPRN PRN
insulin glargine [Lantus Solostar U-100 Insulin] 30 unit SC BID
02/07/25 20:54
VTE Contraindication Routine
VTE Mechanical Device Contraindication: Medical Contraindication
Pharmocologic Contraindication: Medical Contraindication
Comment: blleding anemia
Activity As Directed
Activity Level: As Tolerated
Intake/ Output As Directed
Frequency: Per unit guidelines
Vital Signs As Directed
Frequency: Per unit guidelines
Pt Eval And Treat Routine
Activity Level: As Tolerated
02/07/25 21:00
Ranolazine Extended Release [Ranexa Extended Release] 1,000 mg PO BID
02/07/25 22:00
H&H Urgent
Atorvastatin [Lipitor] 80 mg PO HS
Gabapentin [Neurontin] 300 mg PO TID
02/08/25 08:00
Duloxetine Delayed Release [Cymbalta Delayed Release] 30 mg PO DAILY
ISOSORBIDE MONOnitrate ER [Imdur (Extended Release)] 60 mg PO DAILY
Pantoprazole [Protonix] 40 mg PO DAILY
Torsemide [Demadex] 40 mg PO DAILY
02/09/25 06:00
Complete Blood Count/With Diff IN AM
Comprehensive Metabolic Panel IN AM
02/10/25 06:00
Complete Blood Count/With Diff IN AM
Comprehensive Metabolic Panel IN AM
02/10/25 11:00
DC Protocol for Telemetry ONCE
Abnormal Lab Results
02/07/25 02/07/25 02/07/25
13:48 15:34 16:45
RBC 2.77 L 10^6/uL
(4.70-6.10)
Hgb 7.8 L g/dL
(13.0-18.0)
Hct 24.8 L %
(39.0-52.0)
MCHC 31.5 L g/dL
(33.0-37.0)
RDW 17.0 H %
(11.5-14.5)
Plt Count 406 H 10^3/uL
(130-400)
Abs Immat Gran (auto) 0.1 H 10^3/uL
(0-0.05)
Absolute Monos (auto) 0.8 H 10^3/uL
(0.1-0.6)
Immature Gran % 0.8 H %
(0-0.5)
Carbon Dioxide 31 H mmol/L
(22-30)
BUN 26 H mg/dl
(9-20)
Glucose 318 H mg/dl
(70-99)
Calcium 8.1 L mg/dl
(8.4-10.2)
POC Glucose 342 H mg/dl
(70-99)
Crossmatch IS Only See Detail
02/07/25 15:34
02/07/25 15:34
Vital Signs
Initial and Last Documented VS:
Initial Vital Signs
Temp Pulse Resp BP Pulse Ox
98.4 F 94 18 145/85 98
02/07/25 12:57 02/07/25 12:57 02/07/25 12:57 02/07/25 12:57 02/07/25 12:57
Last Documented Vital Signs
Temp Pulse Resp BP Pulse Ox
98.2 F 95 20 114/72 100
02/08/25 11:00 02/08/25 11:00 02/08/25 11:00 02/08/25 11:00 02/08/25 11:00
<Poncho Nugent MD, Resident - Last Filed: 02/08/25 05:58>
*Pulse Oximetry
SaO2: 98
Oxygen Mode of Delivery: Room air
Patient hypoxic: no
*Critical Care Note
Total Time (30-74mins, 75-104mins- exclusive of procedures): Not Applicable
ED Attending Note
<Poncho Nugent MD, Resident - Last Filed: 02/08/25 05:58>
-
Portions of this chart may have been created with voice recognition software.� Occasional wrong word or��sound alike� substitutions may have occurred due to the inherent limitations of voice recognition software.
<Reginald Zamudio MD - Last Filed: 02/08/25 15:04>
ED Attending Note
Patient seen and examined by attending physician: Yes
ED Attending Note:
Patient with history of diabetes, status post left toe amputation 2 weeks ago, discharged from the hospital 3 days ago, presents to ED secondary to continual bleeding from his wound after being [facility].
Patient was evaluated by [facility], where he was noted to have significant bleeding. Patient denies dizziness or shortness of breath. Patient does report generalized weakness. In addition, patient is concerned for progressive worsening lower leg
weakness, which patient states that he has had secondary to underlying CIDP, requiring plasma exchange. Denies fever or chills. Denies new trauma.
Physical Exam
General: mild painful distress, not acutely ill. afebrile.
Head: nc/at. eomi
Neck: supple. no meningeal signs.
Heart: s1/s2 regular rate and rhythm
Lungs: no acute respiratory distress. clear bilaterally
Abdomen: normal bowel sounds. not tender.
Neuro: alert and oriented x 3. no focal neurological deficits
Skin: left heel: old blood noted with open wound, without active bleeding. left toes: well healing scar with sutures in place without bleeding
Psychiatric: well kept. interactive and cooperative
Extremities: no edema.
History/exam concerning for ongoing postop bleeding, with hb trending down. No acute hemorrhage noted on initial exam. Will require repeat H/H. Transfusion consent on the chart. In addition, patient with underlying history of CIDP, with worsening
lower leg weakness. Patient has required multiple plasma exchange due to symptoms. As such, may benefit from neurology consultation for plasma exchange treatment.
Discharge Plan
Departure
Patient Disposition: Admit
Date of Disposition: 02/07/25
Time of Disposition: 16:49
Admit to: Med/Surg
Presentation/result/management discussed w/ accepting MD/DO: Hospitalist
Discharge Problem:
Post-op bleeding, Chronic inflammatory demyelinating polyneuropathy
Interventions
Interventions:
*Risk Screen - Suicide Last Done: 02/07/25 13:03
*General Assessment Last Done: 02/07/25 13:03
*Neglect/Abuse Screening Last Done: 02/07/25 13:03
*ED- Fall Risk Assessment Last Done: 02/07/25 13:03
*ED COVID-19 Vaccine History Last Done: 02/07/25 13:03
*Nursing Disposition Last Done: 02/07/25 20:51
ED-Skin Assessment Last Done: 02/07/25 17:51
Discharge Date and Time
Discharge Date/Time: 02/07/25 20:51
[2025-02-07 15:43] LABS: Hematocrit 24.8 % (39.0-52.0); Hemoglobin 7.8 g/dL (13.0-18.0); Mean Corp Hgb Conc. 31.5 g/dL (33.0-37.0); Mean Corpuscular Volume 89.5 fL (80.0-94.0); Nucleated Red Blood Cells % 0 % (-); Platelet Count 406 10^3/uL (130-400); Red Cell Dist. Width 17.0 % (11.5-14.5)
[2025-02-07 16:01] LABS: ALT (SGPT) 22 U/L (0-50); AST (SGOT) 19 U/L (17-59); Albumin 3.5 g/dl (3.5-5.0); Alkaline Phosphatase 85 U/L (38-126); Blood Urea Nitrogen 26 mg/dl (9-20); Calcium 8.1 mg/dl (8.4-10.2); Carbon Dioxide 31 mmol/L (22-30); Chloride 102 mmol/L (98-107); Estimated Creatinine Clearance 116 ml/min; Glucose 318 mg/dl (70-99); Potassium 4.6 mmol/L (3.5-5.1); Sodium 136 mmol/L (135-145); Total Protein 6.6 g/dl (6.3-8.2); eGFR > 60.00
[2025-02-07 16:11] LABS: Troponin I < 0.012 ng/ml
[2025-02-07] MEDS: ULTRAM 50 MG PO (16:41)
--- NOTE | 2025-02-07 18:05 | HPS.HSE ---
Family Physician
-
Family Physician: Facility [facility]
Chief Complaint
-
Left heel wound bleeding
History of Present Illness
29-year-old male from [facility] who was admitted on 02/02/2025 due to blood loss anemia from an oozing left heel wound status post left hallux second digit amputation due to osteomyelitis and debridement of left heel ulcer on
01/21/2025 at that time he did receive transfusion of blood. He was seen by podiatry who recommended alginate dressing and monitoring of wound bleeding with recommendations may need to consider splint to prevent ankle movement. At the correctional
facility he has been going through several dressings to his foot saturated with blood. Correctional officers are confirming that. His hemoglobin was noted to trend down to 7.8 he was 8.5 on 02/04/2025 discharge. Patient reports he has had the
wound dressed 3-4 times a day due to it being saturated. I discussed the case with the prior small machine bindery operator that saw him inpatient who stated that she was advised by prior correctional officers he was picking at the heel. She did not see any obvious
source to cauterize and recommended immobilization with dressings. She is currently recommending a cam boot monitoring of any bleeding and notification to her if any bleeding as he might require vascular surgery evaluation. The patient is
requesting to see neurology for his CIDP he states he is not received his plasma exchange that he normally gets every 2 months where he was residing in [facility] at [facility]. He has past medical history of IDDM, right BKA,S/P
left hallux and 2nd digit amputation due to osteomyelitis and debridement of left heel ulcer 01/21/25, CAD status post PCI, HTN, heart failure unknown EF, Elias Potts�, GERD.
Medical History
Past Medical History
Past Medical History: Reports Other
Additional Past Medical History:
IDDM,
right BKA
S/P left hallux and 2nd digit amputation due to osteomyelitis and debridement of left heel ulcer 01/21/25
CAD status post PCI
HTN
heart failure unknown EF
Guilvernellan Potts�
GERD.
Past Surgical History: Reports Other
Additional Past Surgical History:
right BKA
S/P left hallux and 2nd digit amputation due to osteomyelitis and debridement of left heel ulcer 01/21/25
CAD status post PCI
Social History
Tobacco: Non-smoker
Alcohol: None
Drug: None
Personal: Single
Living: Alf ([facility])
Employment: Disabled
Family History
Family History: Other (Mother factor V Leiden, CAD/CABG, DM 2 55, father living history CAD multiple stents, DM 2, 4 half sisters 1 with history of factor V Leiden)
Allergies / Home Medications
Allergies reflects when Allergies were last updated in eelusion.
Home Medications with original date entered in eelusion
Allergy/Medication List:
Allergies
Allergy/AdvReac Type Severity Reaction Status Date / Time
silver Allergy Mild Hives Verified 02/07/25 13:07
silver nitrate Allergy Mild Hives Verified 02/07/25 13:07
ibuprofen Allergy Unknown Unknown Verified 02/07/25 13:05
oxycodone Allergy Unknown Unknown Verified 02/07/25 13:05
Penicillins Allergy Unknown Unknown Verified 02/07/25 13:05
sweet potato Allergy Unknown Unknown Verified 02/07/25 13:05
tuna oil Allergy Unknown Unknown Verified 02/07/25 13:05
turkey Allergy Unknown Unknown Verified 02/07/25 13:05
Home Medications
acetaminophen 300 mg-codeine 30 mg tablet 2 tab PO DIRECTED Pain 02/02/25
aspirin 81 mg tablet,delayed release 81 mg PO DAILY Blood Clot Prevention/Tx 02/02/25
atorvastatin 80 mg tablet 80 mg PO HS High Cholesterol 02/02/25
carvedilol 25 mg tablet 25 mg PO BID Heart Failure 02/02/25
clopidogrel 75 mg tablet 75 mg PO DAILY Blood Clot Prevention/Tx 02/02/25
insulin glargine 100 unit/mL (3 mL) subcutaneous pen (Lantus Solostar U-100 Insulin) 30 unit SC BID Diabetes 02/02/25
isosorbide mononitrate 60 mg tablet,extended release 24 hr 60 mg PO DAILY Heart Disease/Condition 02/02/25
pantoprazole 40 mg tablet,delayed release (Protonix) 40 mg PO DAILY Gastrointestinal Issue 02/02/25
ranolazine 1,000 mg tablet,extended release,12 hr 1,000 mg PO BID Heart Disease/Condition 02/02/25
torsemide 20 mg tablet 40 mg PO DAILY Fluid Retention/Swelling 02/02/25
duloxetine 30 mg capsule,delayed release 30 mg PO DAILY 02/07/25
gabapentin 300 mg capsule 300 mg PO TID 02/07/25
insulin regular human 100 unit/mL injection solution (Humulin R Regular U-100 Insulin) 1 sliding scale dose SC AC 02/07/25
Review of Systems
-
History Source: Patient and Other (2 correctional officers at bedside)
A 12 point ROS was completed and negative except as noted: Yes
Constitutional: Denies Fever or Chills
EENT: Denies Sore Throat or Runny Nose
Respiratory: Denies Cough or Trouble Breathing
Cardiac: Denies Chest Pain, Diaphoresis, Palpitations or Syncope
Abdomen/GI: Denies Abdominal Pain, Nausea, Vomiting, Diarrhea, Constipated, Bloody Stools or Black Stools
: Denies Dysuria, Frequency, Flank Pain, Incontinence, Difficulty Voiding or Urgency
Musculoskeletal: Reports Other (Right AKA, left heel with compression dressing in place no current active bleeding at present time); Denies Joint Pain or Edema
Skin: Denies Itching or Rash
Neurological: Reports Weakness (Patient reports weakness in bilateral legs due to his CIDP); Denies Dizzy or Headache
Endocrine: Reports No Symptoms
Hematologic/Lymphatic: Reports No Symptoms
Psych: Reports Calm
Physical Exam
Vital Signs
Vital Signs
Temp Pulse Resp BP Pulse Ox
98.4 F 91 18 108/74 99
02/07/25 12:57 02/07/25 17:00 02/07/25 17:00 02/07/25 17:00 02/07/25 17:00
Physical Exam
General: Pain; No Fever or Chills
HEENT: NormoCephalic, Anicteric, Moist mucous membranes, PERRLA, [place] Conjunctivae and No Ptosis
Respiratory: Clear; No Wheezes, Rales or Rhonchi
Cardiac: S1/S2 and Regular Rhythm; No Murmur, Rub, Gallop or Peripheral Edema
GI: Soft, Non Tender, Non Distended, Normal Bowel Sounds and No Hepatosplenomegaly
Rectal: Deferred by Provider
Genito-urinary: Deferred by me
Musculoskeletal: No Clubbing, No Cyanosis, No Edema and Other (Right AKA, left heel with compression dressing in place no current active bleeding at present time)
Skin: Warm and Dry; No Rash
Neuro: AO x 3, No Motor Deficits, Cranial Nerves Intact and No Sensory Deficits; No Slurred Speech, Facial Droop, Tremors or Sedated
Psych: Calm
Laboratory Results
-
02/07/25 15:34
02/07/25 15:34
Laboratory Results
Total Bilirubin 0.3 mg/dl (0.2-1.3) 02/07/25 15:34
AST 19 U/L (17-59) 02/07/25 15:34
ALT 22 U/L (0-50) 02/07/25 15:34
Alkaline Phosphatase 85 U/L (38-126) 02/07/25 15:34
Troponin I < 0.012 ng/ml 02/07/25 15:34
Impression/Plan
-
Impression/plan:
Admit to telemetry
#Acute blood loss anemia secondary to left foot/heel bleeding S/P left hallux and 2nd digit amputation due to osteomyelitis and debridement of left heel ulcer 01/21/25
Hgb 7.8 <8.5 on 02/04/2025
# Acute on chronic pain left heel
- Patient reports is allergic to oxycodone and Percocet makes his throat swell is able to tolerate Vicodin, [place] and Dilaudid however
trend Hg transfuse to keep above 8
- Type and screen obtained blood consent on chart
- Seen by Dr. Hassan recent admission with recommendations below:
Discussed with wound care use of alginate dressing to promote blood clotting at sight
If abnormal bleeding continues, may consider splint to prevent ankle movement
No surgical intervention needed at this time
-Apply Cam boot per podiatry monitor for bleeding - May require vascular surgery discussed case with podiatry Dr. Hassan will update if any wound bleeding this evening
02/02/2025 Ultrasound shows noncompressible arteries. With an open surgical site, calcified arteries do not compress with normal bandaging causing the wound to bleed with any movement.
#Right BKA hx
#CIDP
- Patient reports was getting plasma exchange every 2 months at [facility] in [facility]
Patient requesting neurology evaluation for his CIDP, progressive leg weakness unable to walk and uses prostatic
- Consult neuro
#IDDM
Hyperglycemia
-BS 318
-patient is on Lantus 30units BID at home; aspart 5 units TID pre-meals; start with Lantus 20 units BID and aspart 3 units - adjust as needed
-ISS low
#CAD
#Hx PCI
-patient states that last stent in his heart was over a year ago
-Hold Plavix in setting of bleed
-Hold aspirin 81mg PO QD
-Atorvastatin 80mg PO qhs
-CABLE WORKER HELPER Coreg, Ranexa
#Essential HTN
-CABLE WORKER HELPER Coreg, Imdur
#HF, unknown EF
-continue CABLE WORKER HELPER Coreg, Imdur
-CABLE WORKER HELPER Torsemide
#Guillian Russia
-PT consult when cleared by Podiatry
#GERD
-CABLE WORKER HELPER Protonix
DVT PPx - SCD (on left)
FULL CODE
--- NOTE | 2025-02-07 19:44 | W.PN.UPDATE ---
Update Note
Progress Note Update
This is an addendum to H&P written by Ena Carrillo on 02/07/2025. �Patient seen and examined independently with CUSTOMS COLLECTOR.
29-year-old male past medical history of type I diabetes, right BKA, left hallux/second digit amputation due to osteomyelitis and debridement of left heel ulcer on 01/21, CAD status post PCI a year ago, hypertension, heart failure unknown EF, CIDP,
GERD, presenting with bleeding from the right heel.
Patient was admitted from 02/02 to 02/04 after being admitted from hemorrhage from chronic left foot wound. �Recently hospitalized in [facility] for osteomyelitis and 1st and 2nd hallux amputation. �While recently hospitalized he was seen by
podiatry who performed debridement and recommended dressing changes. �He received 1 unit of blood transfusion. �Plavix was resumed.
He is back again for suspected picking of the heel causing persistent bleeding. �Podiatry recommended compressive dressing with CAM boot to immobilize the ankle and prevent patient from picking. �Hold aspirin and Plavix for now. �Recheck hemoglobin
and transfuse for hemoglobin below 8.
Patient normally gets plasma exchange for CIDP every 2-month which he has not received since September in [place]. Neurology consulted to come up with plan.�
[2025-02-07] MEDS: NORCO 5/325 2 TABLET PO (20:03)
[2025-02-07 21:45] LABS: Glucose - Point of Care 139 mg/dl (70-99)
[2025-02-07] MEDS: DILAUDID 0.5 MG IV (21:50)
[2025-02-07] MEDS: LIPITOR 80 MG PO (21:51)
[2025-02-07] MEDS: COREG 25 MG PO (21:51)
[2025-02-07] MEDS: RANEXA EXTENDED RELEASE 1000 MG PO (21:51)
[2025-02-07] MEDS: NEURONTIN 300 MG PO (21:51)
[2025-02-07 22:14] LABS: Hematocrit 24.2 % (39.0-52.0); Hemoglobin 7.9 g/dL (13.0-18.0)
[2025-02-07] MEDS: LANTUS SC (23:01)
[2025-02-07] MEDS: LANTUS 0.2 UNITS SC (23:13)
[2025-02-08] VITALS (9 sets, daily range): BP systolic 100–129; BP diastolic 58–81
[2025-02-08] MEDS: NORCO 5/325 1 TABLET PO ×5 (00:13→18:25)
--- NOTE | 2025-02-08 02:46 | PTCARENOTE ---
02/07 at 2052- Pt Received via stretcher w/ [employer] at bedside. Assist x2 from stretcher to bed. Telemetry order- NSR on monitor, VSS, 03/23 pain to left foot. CAM boot, Hemal wrap and dressing removed to assess wounds and
redressed- refer to worklist, and bleeding- minimal drainage.
BSG- 139. Lantus 30 units ordered. House OUTSIDE MAINTENANCE WORKER notified, order changed to Lantus 20 units- snack provided.
OUTSIDE MAINTENANCE WORKER also made aware of HGB on admission 7.8- Per Podiatry report, transfuse Hgb <8. 2200 Hgb 7.9- 1 unit PRBC ordered and administered.
PMH/ medications reviewed by this RN and patient/ past medical records. Plan of care discussed. Call morales within reach.
--- NOTE | 2025-02-08 03:19 | PTCARENOTE ---
1 unit PRBC transfused w/o issue.
[2025-02-08] MEDS: DILAUDID 0.5 MG IV ×5 (03:35→20:44)
[2025-02-08 03:42] LABS: Glucose - Point of Care 214 mg/dl (70-99)
[2025-02-08 07:50] LABS: Glucose - Point of Care 110 mg/dl (70-99)
[2025-02-08 08:27] LABS: Hematocrit 27.2 % (39.0-52.0); Hemoglobin 8.7 g/dL (13.0-18.0); Mean Corp Hgb Conc. 32.0 g/dL (33.0-37.0); Mean Corpuscular Volume 89.2 fL (80.0-94.0); Nucleated Red Blood Cells % 0 % (-); Platelet Count 400 10^3/uL (130-400); Red Cell Dist. Width 16.6 % (11.5-14.5)
[2025-02-08] MEDS: NOVOLOG FLEXPEN-LOW RESISTANCE SC ×3 (08:31→18:26)
[2025-02-08] MEDS: IMDUR (EXTENDED RELEASE) 60 MG PO (09:07)
[2025-02-08] MEDS: CYMBALTA DELAYED RELEASE 30 MG PO (09:07)
[2025-02-08] MEDS: LANTUS 0.3 UNITS SC ×2 (09:07→22:23)
[2025-02-08] MEDS: COREG 25 MG PO ×2 (09:08→20:42)
[2025-02-08] MEDS: RANEXA EXTENDED RELEASE 1000 MG PO ×2 (09:08→20:43)
[2025-02-08] MEDS: NEURONTIN 300 MG PO ×3 (09:08→20:43)
[2025-02-08] MEDS: DEMADEX 40 MG PO (09:08)
[2025-02-08] MEDS: PROTONIX 40 MG PO (09:08)
[2025-02-08 09:18] LABS: ALT (SGPT) 20 U/L (0-50); AST (SGOT) 17 U/L (17-59); Albumin 3.8 g/dl (3.5-5.0); Alkaline Phosphatase 84 U/L (38-126); Blood Urea Nitrogen 30 mg/dl (9-20); Calcium 8.1 mg/dl (8.4-10.2); Carbon Dioxide 30 mmol/L (22-30); Chloride 100 mmol/L (98-107); Estimated Creatinine Clearance 107 ml/min; Glucose 116 mg/dl (70-99); Potassium 3.9 mmol/L (3.5-5.1); Sodium 138 mmol/L (135-145); Total Protein 7.3 g/dl (6.3-8.2); eGFR > 60.00
--- NOTE | 2025-02-08 10:36 | CM ---
Reviewed the chart notes and spoke with the patient at the bedside. Two guards at bedside as well. The patient was recently hospitalized here at (02/02-02/04). The patient is wheelchair bound due to R BKA and wounds to L heel. CM continues to
be available to patient/family and is monitoring medical plan for needs at discharge.
Plan: Discharge back to [facility] when medically stable.
Report: [phone]
[2025-02-08 11:27] LABS: Glucose - Point of Care 99 mg/dl (70-99)
--- NOTE | 2025-02-08 11:46 | CON.NEURO ---
Addendum entered and electronically signed by Harry Almaraz MD 02/08/25 14:15:
Studies reviewed.
I have personally examined the patient. I reviewed and agree with the HOSPICE AIDE's Note.
My addenda:
Awake, alert, interactive. No acute distress.
Speech intact.
Follows 2-step requests w/o difficulty. No tremor.
Extra-ocular movements grossly intact.
Facial movements full and symmetric. Hearing intact to normal conversational volume.
Normal UE movements bilaterally.
Neck: full ROM.
Chest: no dyspnea
Heart: no JVD
Ext: (-) Clubbing, (-) Cyanosis, (-) Edema
IMPRESSIONS/RECOMMENDATIONS:
Abrupt onset of osteomyelitis with suggested history of chronic inflammatory demyelinating polyneuropathy (CIDP)
obtain records from [place] regarding prior diagnosis
would pursue outpatient plasma-exchange (PLEX) of 3 or 5 exchanges
would check new Echo prior to PLEX to confirm tolerance for that therapy
consider outpatient treatment with immunosuppressant medications, self-reported inadequate improvement with Efgartigomod
D/W patient
Will continue to follow as outpatient.
Original Note:
Documented by User: Kendra Reese NP 02/08/25 13:23
Neuro Assessment/Plan
Assessment
29-year-old male with a past medical history of IDDM, right BKA,S/P left hallux and 2nd digit amputation due to osteomyelitis and debridement of left heel ulcer 01/21/25, CAD status post PCI, HTN, heart failure unknown EF, Guillain-Potts�, GERD
neurology consulted for history of CIDP.
Plan
Impression: progressive lower extremity weakness due to history of CIDP
-PT/OT evaluations
-plasmapheresis as outpatient
-obtain records from [facility] in [place], [place]
-fall precautions
-case management
All questions encouraged and answered, plan of care discussed with Dr. Almaraz, Dr. Young and patient
Consultation
Order
Date of Consultation: 02/08/25
Requesting Provider: hospitalist/ Dr. Young
Reason for Consult: lower extremity weakness and history of CIDP
Subjective/Objective
Subjective Data
Date of Service: February 08, 2025
29-year-old male with a past medical history of IDDM, right BKA,S/P left hallux and 2nd digit amputation due to osteomyelitis and debridement of left heel ulcer 01/21/25, CAD status post PCI, HTN, heart failure unknown EF, Guillain-Potts�, GERD, who
presents from [facility] on 02/07/2025 for evaluation of increased bleeding from his left heel. He was recently admitted on 02/02/2025 due to blood loss anemia. He is status post left hallux second digit amputation due to
osteomyelitis and debridement of left heel ulcer on 01/21/2025. At that time he did receive transfusion of blood. He was seen by podiatry who recommended alginate dressing and monitoring of wound bleeding with recommendations may need to consider
splint to prevent ankle movement. At the correctional facility he has been going through several dressings to his foot saturated with blood. His hemoglobin was noted to trend down to 7.8 he was 8.5 on 02/04/2025 discharge. Patient reports he has
had the wound dressed 3-4 times a day due to it being saturated. Per his correctional officers, he was picking at the heel. Was seen by podiatry, did not see any obvious source to cauterize and recommended immobilization with dressings. Currently
recommending a cam boot and monitoring of any bleeding and notification to her if any bleeding as he might require vascular surgery evaluation. The patient is requesting to see neurology for his history of CIDP. He states he is not received his
plasma exchange that he normally gets every 2 months where he was residing in [facility] at [facility].
Per patient, he was diagnosed with Guillain-Potts� in 2018, had EMG in 2019 which confirmed CIDP and had 2 more EMGs to confirm diagnosis. He states he has gotten IVIG and plasmapheresis in the past, but plasmapheresis works the best. He states he
cannot take steroids due to his diabetes. He states he has tried Vyvgart but found this ineffective. His last treatment of IVIG was during his hospitalization on October 10 while in [place]. He states the IVIG did not work and he only received 2
treatments instead of his usual 5 treatments. He reports weakness in bilateral legs. Denies dizziness or headache. Denies issues with speech or swallow. Denies chest pain or SOB. Denies vision changes. Denies weakness, numbness or tingling in upper
extremities.
Objective Data
Vital Signs
Temp Pulse Resp BP Pulse Ox
98 F 84 20 129/81 100
02/08/25 07:00 02/08/25 07:00 02/08/25 07:00 02/08/25 07:00 02/08/25 07:00
Lab Results
02/08/25 08:18
02/08/25 08:18
Sodium 138 mmol/L (135-145) 02/08/25 08:18
Potassium 3.9 mmol/L (3.5-5.1) 02/08/25 08:18
BUN 30 mg/dl (9-20) H 02/08/25 08:18
Glucose 116 mg/dl (70-99) H 02/08/25 08:18
Calcium 8.1 mg/dl (8.4-10.2) L 02/08/25 08:18
Patient Allergies
silver Allergy (Mild, Verified 02/07/25 13:07)
Hives
silver nitrate Allergy (Mild, Verified 02/07/25 13:07)
Hives
ibuprofen Allergy (Unknown, Verified 02/07/25 13:05)
Unknown
oxycodone Allergy (Unknown, Verified 02/07/25 13:05)
Unknown
Penicillins Allergy (Unknown, Verified 02/07/25 13:05)
Unknown
sweet potato Allergy (Unknown, Verified 02/07/25 13:05)
Unknown
tuna oil Allergy (Unknown, Verified 02/07/25 13:05)
Unknown
turkey Allergy (Unknown, Verified 02/07/25 13:05)
Unknown
Review of Systems
-
History Source: Patient
Constitutional: Weakness
EENT: No Symptoms Reported
Respiratory: No Symptoms
Cardiac: No Symptoms
Abdomen/GI: No Symptoms
Skin: Sores
Neuro: Weakness
Endocrine: No Symptoms
Hematologic / Lymphatic: No Symptoms
Physical Exam
-
General: No Apparent Distress and Comfortable
HEENT: Normocephalic, Atraumatic and Anicteric
Neck: Full Range of Motion
Respiratory: No Dyspnea
Cardiac: No JVD
GI: Non-distended
Skin: Ulcers and Lesions
Extremities: Other (R BKA)
Psych: Unremarkable
Extended Neurological Exam
Mood & Affect: Mood Unremarkable
Attention Span & Concentration: Awake, Alert, Interactive and No Difficulty with 2 Step Request
Memory: Unremarkable
Tremor: Hand Tremor Absent and Head Tremor Absent
Involuntary Movement: None
Speech: Quality Unremarkable, Quantity Unremarkable and Rate of Production Unremarkable
Cranial Nerve II: Left Eye: Pupillary Reactivity Unremarkable, Pupillary Size Unremarkable and Visual Whittaker Intact
Cranial Nerve II: Right Eye: Pupillary Reactivity Unremarkable, Pupillary Size Unremarkable and Visual Whittaker Intact
Cranial Nerves III, IV, : Extraocular Movement: Extraocular Movement Full in all Directions
Cranial Nerve VII: Facial Symmetry: Normal Facial Symmetry
Cranial Nerve VIII: Hearing: Unremarkable Hearing to Normal Conversational Volume
Cranial Nerves IX, X: Palate Movement: Palate Elevation Symmetric
Muscle Strength, Overall: Reduced (3/5 on the RLE 2/5 on the LLE)
Pronator Drift: No Drift in Upper Extremities
Deep Tendon Reflexes: Absent (lower extremities)
Coordination: [id number] Testing Unremarkable and Reaches for Objects without Difficulty
Data Reviewed
-
Labs: Report Reviewed
Reviewed with: Physician and Patient
Old Records: Summarized
Medications
-
Active Medications
Generic Name Dose Route Start Last Admin
Trade Name Freq PRN Reason Stop Dose Admin
Acetaminophen 650 mg 02/07/25 20:54
Acetaminophen 325 Mg Tablet PO 03/07/25 20:53
Q4HPRN PRN
mild pain/SHANNON/temp> 100.4F
Hydrocodone Bitart/Acetaminophen 1 tablet 02/08/25 00:00 02/08/25 10:02
Hydrocodone 5 Mg/Acetaminophen 325 Mg Tablet PO 02/22/25 00:00 1 tablet
Q4HPRN PRN Administration
mod pain
Atorvastatin Calcium 80 mg 02/07/25 22:00 02/07/25 21:51
Atorvastatin (Lipitor) 80 Mg Tablet PO 03/07/25 21:59 80 mg
HS JATIN Administration
Bisacodyl 10 mg 02/07/25 20:54
Bisacodyl 10 Mg Rectal Suppository RECTAL 03/07/25 20:53
[id number] PRN
constipation
Carvedilol 25 mg 02/07/25 20:54 02/08/25 09:08
Carvedilol 25 Mg Tablet PO 03/07/25 20:53 25 mg
BID JATIN Administration
Dextrose 12.5 grams 02/07/25 20:54
Dextrose 50% (0.5 Grams/Ml) 50 Ml Syringe IV 03/07/25 20:53
[id number] PRN
hypoglycemia
Protocol
Duloxetine HCl 30 mg 02/08/25 08:00 02/08/25 09:07
Duloxetine Delayed Release 30 Mg Capsule PO 03/08/25 07:59 30 mg
DAILY JATIN Administration
Gabapentin 300 mg 02/07/25 22:00 02/08/25 09:08
Gabapentin 300 Mg Capsule PO 03/07/25 21:59 300 mg
TID JATIN Administration
Glucagon 1 mg 02/07/25 20:54
Glucagon 1 Mg Vial IM 03/07/25 20:53
PRN PRN
hypoglycemia
Protocol
Hydromorphone HCl 0.5 mg 02/07/25 20:54 02/08/25 07:41
Hydromorphone 0.5 Mg/0.5 Ml Syringe IV 02/21/25 20:53 0.5 mg
Q4HPRN PRN Administration
severe pain
Insulin Glargine 30 units/ 0.3 mls @ 0 mls/hr 02/07/25 21:00 02/08/25 09:07
Device SC 03/07/25 20:59 0.3 mls
BID JATIN Administration
As Directed
Insulin Aspart 0 units 02/08/25 07:30 02/08/25 08:31
Insulin Aspart Low Resistance 300 Units/3 Ml Pen.Injctr SC 03/08/25 07:29 Not Given
AC JATIN
Protocol
Isosorbide Mononitrate 60 mg 02/08/25 08:00 02/08/25 09:07
Isosorbide Mononitrate 60 Mg Extended Release Tablet PO 03/08/25 07:59 60 mg
DAILY JATIN Administration
Ondansetron HCl 4 mg 02/07/25 20:54
Ondansetron 4 Mg/2 Ml Vial IV 03/07/25 20:53
Q6HPRN PRN
nausea and vomiting
Pantoprazole Sodium 40 mg 02/08/25 08:00 02/08/25 09:08
Pantoprazole 40 Mg Delayed Release Tablet PO 03/08/25 07:59 40 mg
DAILY JATIN Administration
Polyethylene Glycol 17 grams 02/07/25 20:54
Polyethylene Glycol Powder 17 Grams Packet PO 03/07/25 20:53
DAILYPRN PRN
constipation
Ranolazine 1,000 mg 02/07/25 21:00 02/08/25 09:08
Ranolazine 500 Mg Extended Release Tablet PO 03/07/25 20:59 1,000 mg
BID JATIN Administration
Senna/Docusate Sodium 1 tablet 02/07/25 20:54
Docusate W/Senna (Yael-Colace) Tablet PO 03/07/25 20:53
BIDPRN PRN
constipation
Sodium Chloride 0 flush 02/07/25 20:00
Sodium Chloride 0.9% (Flush) Syringe IV 03/07/25 19:59
PER PROTOCOL JATIN
Torsemide 40 mg 02/08/25 08:00 02/08/25 09:08
Torsemide 20 Mg Tablet PO 03/08/25 07:59 40 mg
DAILY JATIN Administration
Home Medications
�Medication �Instructions �Recorded
acetaminophen 300 mg-codeine 30 mg 2 tab PO DIRECTED Pain 02/02/25
tablet
aspirin 81 mg tablet,delayed 81 mg PO DAILY Blood Clot 02/02/25
release Prevention/Tx
atorvastatin 80 mg tablet 80 mg PO HS High Cholesterol 02/02/25
carvedilol 25 mg tablet 25 mg PO BID Heart Failure 02/02/25
clopidogrel 75 mg tablet 75 mg PO DAILY Blood Clot 02/02/25
Prevention/Tx
insulin glargine 100 unit/mL (3 30 unit SC BID Diabetes 02/02/25
mL) subcutaneous pen (Lantus
Solostar U-100 Insulin)
isosorbide mononitrate 60 mg 60 mg PO DAILY Heart 02/02/25
tablet,extended release 24 hr Disease/Condition
pantoprazole 40 mg tablet,delayed 40 mg PO DAILY Gastrointestinal 02/02/25
release (Protonix) Issue
ranolazine 1,000 mg 1,000 mg PO BID Heart 02/02/25
tablet,extended release,12 hr Disease/Condition
torsemide 20 mg tablet 40 mg PO DAILY Fluid 02/02/25
Retention/Swelling
duloxetine 30 mg capsule,delayed 30 mg PO DAILY Mental 02/07/25
release Health/Anxiety
gabapentin 300 mg capsule 300 mg PO TID NEUROPATHIC PAIN 02/07/25
insulin regular human 100 unit/mL 1 sliding scale dose SC AC Diabetes 02/07/25
injection solution (Humulin R
Regular U-100 Insulin)
Past History
Past History
ED Past Medical History: CHF, HTN, IDDM, CT, Other (BKA right, Two toe amputation left, left heel debridement) and Other (Guillian Hammond, Chronic Inflammatory Demylinating Polyneuropathy)
ED Past Surgical History: Orthopedic (Right BKA, left two toe amputation, left heel debridement)
Family/Social History
Tobacco: Non-smoker
Drug: None

Documented by User: Harry Almaraz MD 02/08/25 14:08
Neuro Assessment/Plan
Assessment
29-year-old male with a past medical history of IDDM, right BKA,S/P left hallux and 2nd digit amputation due to osteomyelitis and debridement of left heel ulcer 01/21/25, CAD status post PCI, HTN, heart failure unknown EF, Guillain-Potts�, GERD
neurology consulted for history of CIDP.
Impression: progressive lower extremity weakness due to history of CIDP
-
Plan
PT/OT evaluations
-plasmapheresis as outpatient
-obtain records from [facility] in [place], [place]
-fall precautions
-case management
All questions encouraged and answered, plan of care discussed with Dr. Almaraz, Dr. Young and patient
--- NOTE | 2025-02-08 13:30 | PTCARENOTE ---
Patient has order to straight cath self; straight cath'd -450 ml ye colored urine.
--- NOTE | 2025-02-08 14:39 | WOUNDNOTE ---
L TOE AMP SITES
--- NOTE | 2025-02-08 14:41 | WOUNDNOTE ---
MEDIAL LOWER LEG
--- NOTE | 2025-02-08 14:42 | WOUNDNOTE ---
Geovanna JACOBSON STUMP
--- NOTE | 2025-02-08 14:43 | WOUNDNOTE ---
L MEDIAL LOWER LEG AND HEEL
--- NOTE | 2025-02-08 14:45 | WOUNDNOTE ---
WON RN note: Patient admitted with bleeding Left heel wound.
See H&P for complete history.
PMH: IDDM, CHF, CAD, CKD, Guillain-[place],anemia, CIVP(chronic inflammatory demylinating polyneuropathy), RF, [place], R BKA, L 1-2 toe amp's in [place], L heel debridement by Dr. Whatley 01/21/25.
Wound Location and type/assessment: Patient last seen 02/03 for bleeding L heel wound. Today L toe amp sites with intact sutures, drainage serosanguineous near 3rd toe. Heel has dark maroon center with guzman edges, boggy at heel, suspect fluid
collection under skin. Patient complains of pain upon palpation. + palpable pedal pulses, skin warm and dry. R BKA site with few intact dry scabs, patient states they are from a fall. Has not been using prosthetic leg lately. Using Cam boot for L
leg, removed for assessment. Patient reports he feels pressure and pain in heel when wearing boot. L heel offloaded with folded pillow under calf. Podiatry on consult. Patient able to turn self to L side, sacrum is intact.
Appetite: Fair
Pressure redistribution devices in place: Versa Care with Accumax, left heel off-loaded with pillow under calf.
Plan: Adaptic, ABD and kerlix to toe amp sites, adaptic, alginate abd pad and kerlix applied to L heel. R BKA site applied skin prep and adhesive foam. Offloaded L heel. Will defer to Dr. Whatley for any changes to wound care and offloading. Will
confirm orders with hospitalist and updated nurse Mellisa.
Updated care plan and will follow along as needed.
Note to case management of equipment requested for discharge: TBD
Recommend follow up with [employer].
--- NOTE | 2025-02-08 14:47 | WOUNDNOTE ---
WON RN note: Patient admitted with bleeding Left heel wound.
See H&P for complete history.
PMH: IDDM, CHF, CAD, CKD, Guillain-[place],anemia, CIVP(chronic inflammatory demylinating polyneuropathy), RF, [place], R BKA, L 1-2 toe amp, L heel debridement by Dr. Whatley 01/21/25. Recently admitted for bleeding L heel wound.
Wound Location and type/assessment: Patient last seen 02/03 for same bleeding L heel wound and s/p L great and 2nd toe amputations by Dr. Whatley. Today amp sites with intact sutures, drainage serosanguineous near 3rd toe. Heel has dark maroon
center with guzman edges, boggy at heel, suspect fluid collection under skin. Patient complains of pain upon palpation. + palpable pedal pulses, skin warm and dry. R BKA site with few intact dry scabs, patient states they are from a fall. Has not been
using prosthetic leg lately. Using Cam boot for L leg, removed for assessment. Patient reports he feels pressure and pain in heel when wearing boot. L heel offloaded with folded pillow under calf. Podiatry on consult. Patient able to turn self to L
side, sacrum is intact.
Appetite: Fair
Pressure redistribution devices in place: Versa Care with Accumax, left heel off-loaded with pillow under calf.
Plan: Adaptic, ABD and kerlix to toe amp sites, adaptic, alginate abd pad and kerlix applied to L heel. R BKA site applied skin prep and adhesive foam. Offloaded L heel. Will defer to Dr. Whatley for any changes to wound care and offloading. Will
confirm orders with hospitalist and updated nurse Mellisa.
Updated care plan and will follow along as needed.
Note to case management of equipment requested for discharge: TBD
Recommend follow up with [employer].
--- NOTE | 2025-02-08 16:54 | W.PN.HOSP.TC ---
Today's Communication/Plan
-
Hold Plavix
Wound care per
Podiatry to reevaluate.
Follow-up with hemoglobin in the morning
Assessment / Plan
Assessment / Plan
Impression:
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
Osteomyelitis of the left hallux status post amputation 01/21/2025 in outside hospital
Acute blood loss anemia requiring transfusion
Other conditions
Insulin requiring diabetes.
CAD with stenting
Essential hypertension.
Heart failure with unknown EF, compensated on admission.
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
GERD.
Plan:
Recurrent wound bleeding with acute blood loss anemia.
Blood on admission at 7.8 (8.5 upon discharge in 02/04). Status posttransfusion 1 unit of packed red blood cells improved at 8.7
Wound care with pressure dressing
Podiatry to reevaluate
Hold Plavix until cleared with podiatry
History of CIDP.
Patient reports generalized fatigue.
Requested neurology evaluation
Input appreciated.
Recommended outpatient follow-up and treatment
Chronic pain likely attributed to above as well as recent surgeries.
Continue duloxetine, Tylenol, gabapentin, hydrocodone.
Wean off hydromorphone
Cardiovascular.
CAD with prior PCI and stenting.
Essential hypertension
Chronic CHF unknown EF.
Volume status compensated.
Continue Coreg, Imdur, Ranexa, Demadex
IDDM.
Basal bolus protocol.
Lantus/aspart
Carbohydrate diet
Anticipated Discharge: 24 - 48 hours
Subjective/Interval History
-
Date of Service: February 08, 2025
Objective Data
-
Labs:
Laboratory Results
02/08/25 02/08/25
06:35 08:18
WBC Cancelled 10.6
Hgb Cancelled 8.7 L
Hct Cancelled 27.2 L
Plt Count Cancelled 400
Sodium Cancelled 138
Potassium Cancelled 3.9
Chloride Cancelled 100
Carbon Dioxide Cancelled 30
BUN Cancelled 30 H
Creatinine Cancelled 1.3
Glucose Cancelled 116 H
Calcium Cancelled 8.1 L
Total Bilirubin Cancelled 0.5
AST Cancelled 17
ALT Cancelled 20
Alkaline Phosphatase Cancelled 84
Vital Signs:
Vital Signs
Temp Pulse Resp BP Pulse Ox
99.3 F 90 20 114/69 94
02/08/25 15:01 02/08/25 15:01 02/08/25 15:01 02/08/25 15:01 02/08/25 15:01
I&O
02/07/25 02/08/25 02/09/25
06:59 06:59 06:59
Intake Total 250 / 250
Output Total 350 / 350 450 / 450
Balance -100 / -100 -450 / -450
Physical Exam
-
General: Well Developed and No Apparent Distress
HEENT: Normocephalic, Atraumatic and Moist Mucous Membranes
Respiratory: Clear to Auscultation
Cardiac: Regular Rhythm and S1/S2; Negative Murmur, Rub or Gallop
GI: Soft, Nontender, Nondistended and Normal Bowel Sounds; Negative Organomegaly
Rectal: Deferred by Provider
Musculoskeletal: No Clubbing, No Cyanosis, No Edema and Other (Right BKA)
Skin: Negative Rash
Neuro: Nonfocal/Grossly Intact
[2025-02-08 16:59] LABS: Glucose - Point of Care 170 mg/dl (70-99)
[2025-02-08] MEDS: LIPITOR 80 MG PO (20:43)
[2025-02-08] MEDS: SENOKOT-S 1 TABLET PO (20:43)
[2025-02-08 21:20] LABS: Glucose - Point of Care 279 mg/dl (70-99)
[2025-02-09] VITALS (7 sets, daily range): BP systolic 114–151; BP diastolic 65–82; BMI 32.3
[2025-02-09 03:07] LABS: Glucose - Point of Care 274 mg/dl (70-99)
[2025-02-09] MEDS: TYLENOL 650 MG PO ×2 (03:15→21:04)
[2025-02-09] MEDS: NORCO 5/325 1 TABLET PO ×5 (03:15→21:02)
[2025-02-09] MEDS: DILAUDID 0.5 MG IV ×5 (05:20→22:17)
[2025-02-09 07:09] LABS: Glucose - Point of Care 242 mg/dl (70-99)
[2025-02-09] MEDS: IMDUR (EXTENDED RELEASE) 60 MG PO (08:14)
[2025-02-09] MEDS: COREG 25 MG PO ×2 (08:14→21:04)
[2025-02-09] MEDS: CYMBALTA DELAYED RELEASE 30 MG PO (08:14)
[2025-02-09] MEDS: NEURONTIN 300 MG PO ×3 (08:14→21:05)
[2025-02-09] MEDS: PROTONIX 40 MG PO (08:14)
[2025-02-09] MEDS: RANEXA EXTENDED RELEASE 1000 MG PO ×2 (08:15→21:03)
[2025-02-09] MEDS: DEMADEX 40 MG PO (08:15)
[2025-02-09 08:17] LABS: Hematocrit 25.7 % (39.0-52.0); Hemoglobin 8.2 g/dL (13.0-18.0); Mean Corp Hgb Conc. 31.9 g/dL (33.0-37.0); Mean Corpuscular Volume 88.3 fL (80.0-94.0); Nucleated Red Blood Cells % 0 % (-); Platelet Count 395 10^3/uL (130-400); Red Cell Dist. Width 16.3 % (11.5-14.5)
[2025-02-09] MEDS: NOVOLOG FLEXPEN-LOW RESISTANCE 300 UNITS SC (08:20)
[2025-02-09] MEDS: LANTUS 0.3 UNITS SC ×2 (08:21→22:17)
--- NOTE | 2025-02-09 08:22 | CON.MD ---
Consultation - Medical
-
Consult for Pain and bleeding at surgical wound left foot. 29 year old male with hx of diabetes and Guillain barre syndrome, CHF, CKD, CAD, right BKA and recent Left 1,2 digit amputation due to osteomyelitis presented back to the ED after recent
discharge regarding left heel wound bleeding through the dressing. Patient was incarcerated in [place] and taken to the [facility] for an infection in the left foot. Amputation of the 1,2 toes as well as debridement of medial heel
ulcer was performed on . He was then transported on 01/24/2025 back to [place] and was taken from the airport to [facility] with bleeding through the surgical dressing. Once discharged and sent back to [facility], staff had difficulty stopping the bleeding at the medial heel wound and was sent to ED and admitted. Change in dressing type was suggested and he was discharged, but once again suffered uncontrollable bleeding through wound dressings
and was sent back to the ED.
On examination today, dressing removed and site left open with no spontaneous bleeding noted. Small amount of dark discoloration at the central aspect of the wound, slightly boggy but with no drainage and stable wound edges. Distal sutures in tact
with surrounding dried blood but no dehiscence. Pedal pulses palpable but diminished and minimal active range of motion present.
Impression/Plan
-Excessive bleeding may be due to combination of antiplatelet treatment, trauma and calcified vessels. Ultrasound performed on last admission showed no significant arterial stenosis
-Today plavix held and dressing has been dry since last night. No spontaneous bleeding noted with dressing removed for a time during exam today.
-I dont think further surgical debridement at this time will solve the issue of chronic bleeding. Discussed with wound care team to start Santyl for debridement of any superficial soft tissue necrosis. Suggest we then resume Plavix to test wound
hemostasis and if bleeding persists, may need to cauterize local vessels in the OR.
--- NOTE | 2025-02-09 08:28 | WOUNDNOTE ---
AMANDA RN NOTE: Wound care order updated to include Santyl to L heel after discussing plan with Dr. Whatley. Updated nurse, care plan and discharge instructions.
[2025-02-09 09:01] LABS: ALT (SGPT) 17 U/L (0-50); AST (SGOT) 14 U/L (17-59); Albumin 3.3 g/dl (3.5-5.0); Alkaline Phosphatase 88 U/L (38-126); Blood Urea Nitrogen 32 mg/dl (9-20); Calcium 8.0 mg/dl (8.4-10.2); Carbon Dioxide 30 mmol/L (22-30); Chloride 100 mmol/L (98-107); Estimated Creatinine Clearance 106 ml/min; Glucose 228 mg/dl (70-99); Potassium 4.7 mmol/L (3.5-5.1); Sodium 136 mmol/L (135-145); Total Protein 6.4 g/dl (6.3-8.2); eGFR > 60.00
--- NOTE | 2025-02-09 10:43 | W.PN.HOSP.TC ---
Today's Communication/Plan
-
Resume antiplatelet agents and watch for bleeding.
Check heme stools , iron studies and follow H&H.
Assessment / Plan
Assessment / Plan
Impression:
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
Osteomyelitis of the left hallux status post amputation 01/21/2025 in outside hospital
Acute blood loss anemia requiring transfusion
Other conditions
Insulin requiring diabetes.
CAD with stenting
Essential hypertension.
Heart failure with unknown EF, compensated on admission.
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
GERD.
Plan:
Recurrent wound bleeding with acute blood loss anemia.
Blood on admission at 7.8 (8.5 upon discharge in 02/04). Status posttransfusion 1 unit of packed red blood cells improved at 8.7
Wound care with pressure dressing
Podiatry evaluation noted-no current active bleeding. Recommends resumption of antiplatelet agents and if he were to bleed then consider cautery. Also if he were to bleed will consult cardiology regarding dual antiplatelet use.
History of CIDP.
Patient reports generalized fatigue.
Requested neurology evaluation
Input appreciated.
Recommended outpatient follow-up and treatment
Chronic pain likely attributed to above as well as recent surgeries.
Continue duloxetine, Tylenol, gabapentin, hydrocodone.
Wean off hydromorphone
Cardiovascular.
CAD with prior PCI and stenting.
Essential hypertension
Chronic CHF unknown EF.
Volume status compensated.
Continue Coreg, Imdur, Ranexa, Demadex
IDDM.
Basal bolus protocol.
Lantus/aspart
Carbohydrate diet
Anticipated Discharge: Within 24 hours
Subjective/Interval History
-
Date of Service: February 09, 2025
Left foot in dressing. Apparently no bleeding as noted by media associate.
No fever chills.
Denies any chest pain shortness of breath this morning.
Patient says he had multiple coronary artery stents the last one was in March 2024 in [place]. Patient is from [place].
Objective Data
-
Labs:
Laboratory Results
02/09/25
07:11
WBC 10.6
Hgb 8.2 L
Hct 25.7 L
Plt Count 395
Sodium 136
Potassium 4.7
Chloride 100
Carbon Dioxide 30
BUN 32 H
Creatinine 1.3
Glucose 228 H
Calcium 8.0 L
Total Bilirubin 0.3
AST 14 L
ALT 17
Alkaline Phosphatase 88
Vital Signs:
Vital Signs
Temp Pulse Resp BP Pulse Ox
99.1 F 87 20 125/77 96
02/09/25 07:00 02/09/25 08:15 02/09/25 07:00 02/09/25 08:15 02/09/25 07:00
I&O
02/08/25 02/09/25 02/10/25
06:59 06:59 06:59
Intake Total 250 / 250 1140 / 1140
Output Total 350 / 350 2280 / 2280
Balance -100 / -100 -1140 / -1140
Physical Exam
-
General: No Apparent Distress
Respiratory: Clear to Auscultation and Non Labored Respirations; Negative Accessory Resp Muscle Use
Cardiac: Regular Rhythm and S1/S2
Neuro: AO x 3
Psych: Calm; Negative Confused or Agitated
Data Reviewed
-
Labs: Labs Reviewed by me
[2025-02-09 11:08] LABS: Glucose - Point of Care 259 mg/dl (70-99)
[2025-02-09] MEDS: SANTYL OINTMENT 1 APPLIC TOPICAL (11:31)
[2025-02-09] MEDS: NOVOLOG FLEXPEN-LOW RESISTANCE 3 UNITS SC (11:32)
[2025-02-09] MEDS: PLAVIX 75 MG PO (12:32)
[2025-02-09] MEDS: ASPIR LOW (ENTERIC COATED) 81 MG PO (12:32)
--- NOTE | 2025-02-09 14:11 | PN.CDI ---
CDI
- -
CDI:
Physician Documentation Request
Admit Date: 02/07/25 19:19
Dear Doctor Terrance,
Please review the following and provide your response in the progress notes.
Clinical Indicators:
PN, 02/09
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
#...in the settings of antiplatelet therapy with dual antiplatelet agents.
#...Osteomyelitis of the left hallux status post amputation 01/21/2025 in outside hospital
#...Acute blood loss anemia requiring transfusion
Please clarify the relationship, if any, between these conditions:
Yes, left heel wound recurrent hemorrhage is related to/associated with/due to dual antiplatelet agents.
No, left heel wound recurrent hemorrhage is not related to/associated with/due to dual antiplatelet agents___ but it is due to ___. (Please specify)
Other (please specify)
Use of terms such as suspected, likely, concern for, or probable (associated with a specific diagnosis that is being evaluated, monitored, or treated as if it exists) are acceptable and can be coded in the inpatient setting, when documented at the
time of discharge.
Thank you,
Claudia Finn RN BSN CCDS
CDI Specialist
Please contact via tiger text
Please use your independent medical judgment in providing your response.
--- NOTE | 2025-02-09 14:38 | CM ---
Reviewed the chart notes. CM consult received for an order for plasma exchange therapy for CIDP - 3 treatments every 3 months. CM spoke with [facility] RN and was informed that a copy of this order needs to be in the discharge instructions and then
they will arrange at correctional facility. CM continues to be available to patient/family and is monitoring medical plan for needs at discharge.
Plan: Discharge back to [facility] when medically stable.
--- NOTE | 2025-02-09 16:39 | CHAP ---
Emotional and spiritual support provided as requested. Bible and prayer book given. Will follow as able.
[2025-02-09 17:12] LABS: Glucose - Point of Care 112 mg/dl (70-99)
[2025-02-09] MEDS: NOVOLOG FLEXPEN-LOW RESISTANCE SC (17:12)
[2025-02-09] MEDS: LIPITOR 80 MG PO (21:04)
[2025-02-09 22:15] LABS: Glucose - Point of Care 119 mg/dl (70-99)
[2025-02-10 00:14] LABS: Glucose - Point of Care 161 mg/dl (70-99)
[2025-02-10 03:32] VITALS: BP 141/74
[2025-02-10] MEDS: NORCO 5/325 1 TABLET PO ×5 (05:11→23:39)
[2025-02-10 06:00] VITALS: BMI 32.5
[2025-02-10] MEDS: DILAUDID 0.5 MG IV ×4 (06:33→20:36)
[2025-02-10 08:00] VITALS: BP 150/75
[2025-02-10 08:02] LABS: Glucose - Point of Care 165 mg/dl (70-99)
[2025-02-10 08:06] LABS: Hematocrit 25.1 % (39.0-52.0); Hemoglobin 8.1 g/dL (13.0-18.0); Mean Corp Hgb Conc. 32.3 g/dL (33.0-37.0); Mean Corpuscular Volume 87.8 fL (80.0-94.0); Nucleated Red Blood Cells % 0 % (-); Platelet Count 428 10^3/uL (130-400); Red Cell Dist. Width 16.2 % (11.5-14.5)
[2025-02-10] MEDS: RANEXA EXTENDED RELEASE 1000 MG PO ×2 (08:12→19:37)
[2025-02-10] MEDS: ASPIR LOW (ENTERIC COATED) 81 MG PO (08:12)
[2025-02-10] MEDS: CYMBALTA DELAYED RELEASE 30 MG PO (08:13)
[2025-02-10] MEDS: COREG 25 MG PO ×2 (08:13→19:38)
[2025-02-10] MEDS: DEMADEX 40 MG PO (08:13)
[2025-02-10] MEDS: PROTONIX 40 MG PO (08:13)
[2025-02-10] MEDS: LANTUS 0.3 UNITS SC ×2 (08:14→21:35)
[2025-02-10] MEDS: NOVOLOG FLEXPEN-LOW RESISTANCE 1 UNITS SC (08:16)
[2025-02-10] MEDS: IMDUR (EXTENDED RELEASE) 60 MG PO (08:19)
[2025-02-10] MEDS: NEURONTIN 300 MG PO ×3 (08:19→21:34)
[2025-02-10] MEDS: PLAVIX 75 MG PO (08:19)
[2025-02-10 08:21] LABS: ALT (SGPT) 16 U/L (0-50); AST (SGOT) 14 U/L (17-59); Albumin 3.4 g/dl (3.5-5.0); Alkaline Phosphatase 97 U/L (38-126); Blood Urea Nitrogen 28 mg/dl (9-20); Calcium 8.3 mg/dl (8.4-10.2); Carbon Dioxide 27 mmol/L (22-30); Chloride 101 mmol/L (98-107); Estimated Creatinine Clearance 99 ml/min; Glucose 139 mg/dl (70-99); Potassium 4.4 mmol/L (3.5-5.1); Sodium 136 mmol/L (135-145); Total Protein 6.7 g/dl (6.3-8.2); eGFR > 60.00
[2025-02-10 08:31] LABS: Total Iron Binding Capacity 234 ug/dl (261-462)
[2025-02-10 09:03] LABS: Iron < 20 ug/dl (49-181)
[2025-02-10 10:39] LABS: Ferritin 125.0 ng/ml (17.9-464.0)
--- NOTE | 2025-02-10 10:40 | PTCARENOTE ---
prn pain medication give per parameters. See MAR for proper documentation.
[2025-02-10 11:05] VITALS: BP 150/58
[2025-02-10] MEDS: TYLENOL 650 MG PO (11:25)
[2025-02-10 12:22] LABS: Glucose - Point of Care 274 mg/dl (70-99)
[2025-02-10] MEDS: NOVOLOG FLEXPEN-LOW RESISTANCE 3 UNITS SC ×2 (12:30→17:26)
[2025-02-10] MEDS: SANTYL OINTMENT 1 APPLIC TOPICAL (12:35)
--- NOTE | 2025-02-10 12:42 | W.PN.POD ---
Today's Communication
Today's Communication
improved hemostasis of wound site
Assessment / Plan
-
Impression/plan
Excessive bleeding may be due to combination of antiplatelet treatment, trauma and calcified vessels. Ultrasound performed on last admission showed no significant arterial stenosis
-Plavix and ASA resumed last night. Moderate bleeding on dressing only. No spontaneous bleeding noted with dressing removed for a time during exam today.
-Continue Santyl as a debriding agent. So far hemostasis stable with patient receiving Plavix. Surgical debridement at this time is not warranted.
Subjective
Chief Complaint
Patient admitted with uncontrollable bleeding of left medial heel surgical site.
Subjective
Seen resting in bed with nursing present
Objective
Temp Pulse Resp BP Pulse Ox
100.4 F H 96 20 150/58 97
02/10/25 11:05 02/10/25 11:05 02/10/25 11:05 02/10/25 11:05 02/10/25 11:05
02/10/25 06:57
02/10/25 06:57
Vital Signs and Lab results were reviewed.
Physical Exam
Physical Exam
Dressing with minimal bleeding present, no malodor and no further necrosis. No longer boggy and wound edges stable. No surrounding edema or cellulitis. Rash present anterior leg with similar skin changes surrounding the medial heel wound.
Sutures at the forefoot surgical site stable with no dehiscense.
--- NOTE | 2025-02-10 14:42 | W.PN.HOSP.TC ---
Addendum entered and electronically signed by Bryan Carlos MD 02/17/25 08:04:
Left heal wound with bleeding associated with antiplatelet therapy
Original Note:
Today's Communication/Plan
-
Follow fever curve
Check blood cultures and urine cultures
Follow left foot wound.
Hold on antibiotics today.
Assessment / Plan
Assessment / Plan
Impression:
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
Osteomyelitis of the left hallux status post amputation 01/21/2025 in outside hospital
Acute blood loss anemia requiring transfusion
Fever
Other conditions
Insulin requiring diabetes.
CAD with stenting
Essential hypertension.
Heart failure with unknown EF, compensated on admission.
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
GERD.
Plan:
Recurrent wound bleeding with acute blood loss anemia.
Blood on admission at 7.8 (8.5 upon discharge in 02/04). Status posttransfusion 1 unit of packed red blood cells improved at 8.7
Wound care with pressure dressing
Podiatry evaluation noted-no current active bleeding. Recommends resumption of antiplatelet agents and if he were to bleed then consider cautery. Also if he were to bleed will consult cardiology regarding dual antiplatelet use.
Fever? Source
Fitness Center Attendant did not feel wound is infected.
Check blood cultures. Check urine analysis and a culture. Patient self catheterizes.
History of CIDP.
Patient reports generalized fatigue.
Requested neurology evaluation
Input appreciated.
Recommended outpatient follow-up and treatment
Chronic pain likely attributed to above as well as recent surgeries.
Continue duloxetine, Tylenol, gabapentin, hydrocodone.
Wean off hydromorphone
Cardiovascular.
CAD with prior PCI and stenting.
Essential hypertension
Chronic CHF unknown EF.
Volume status compensated.
Continue Coreg, Imdur, Ranexa, Demadex
IDDM.
Basal bolus protocol.
Lantus/aspart
Carbohydrate diet
Anticipated Discharge: > 48 hours
Subjective/Interval History
-
Date of Service: February 10, 2025
He had a spike of fever today.
Still complains of some discomfort and pain in the left foot. Seen by ophthalmic asst today who felt there was no obvious infection.
Patient also self catheterizes. Denies any pain and burning. Denies any odor.
Feeling constipated.
Denies any sore throat or shortness of breath. No cough.
Objective Data
-
Labs:
Laboratory Results
02/10/25
06:57
WBC 11.6 H
Hgb 8.1 L
Hct 25.1 L
Plt Count 428 H
Sodium 136
Potassium 4.4
Chloride 101
Carbon Dioxide 27
BUN 28 H
Creatinine 1.4 H
Glucose 139 H
Calcium 8.3 L
Total Bilirubin 0.4
AST 14 L
ALT 16
Alkaline Phosphatase 97
Vital Signs:
Vital Signs
Temp Pulse Resp BP Pulse Ox
100.4 F H 96 20 150/58 97
02/10/25 11:05 02/10/25 11:05 02/10/25 11:05 02/10/25 11:05 02/10/25 11:05
I&O
02/09/25 02/10/25 02/11/25
06:59 06:59 06:59
Intake Total 1140 / 1140 1140 / 1140
Output Total 2280 / 2280 2950 / 2950
Balance -1140 / -1140 -1810 / -1810
Physical Exam
-
General: Comfortable
Respiratory: Non Labored Respirations; Negative Clear to Auscultation or Accessory Resp Muscle Use
Cardiac: Regular Rhythm, S1/S2 and Tachycardic
GI: Soft, Nontender, Nondistended and Normal Bowel Sounds
Musculoskeletal: Other (Left foot in dressing)
Neuro: AO x 3
Psych: Calm; Negative Confused
Data Reviewed
-
Labs: Labs Reviewed by me
[2025-02-10 15:35] VITALS: BP 118/69
--- NOTE | 2025-02-10 15:42 | CM ---
Chart reviewed; anticipated discharge > 48 hours
Plan: return to [facility] when medically stable
[2025-02-10 16:57] LABS: Glucose - Point of Care 238 mg/dl (70-99)
[2025-02-10 17:08] LABS: Urine Character Slightly Cloudy (Clear)
[2025-02-10 17:35] LABS: Urine Red Blood Cell 0-2 /HPF (0-2); Urine Squamous Cell 0-2 /LPF (Few); Urine Urothelial Cell 0-2 /LPF (FEW)
[2025-02-10 17:36] LABS: Urine White Cell 60-70 /HPF (0-5)
[2025-02-10] MEDS: COLACE 100 MG PO (19:38)
[2025-02-10] MEDS: LIPITOR 80 MG PO (21:34)
[2025-02-10 21:38] LABS: Glucose - Point of Care 243 mg/dl (70-99)
[2025-02-10 23:32] VITALS: BP 148/87
[2025-02-11] MEDS: DILAUDID 0.5 MG IV ×3 (02:09→11:27)
[2025-02-11] MEDS: NORCO 5/325 1 TABLET PO ×4 (05:04→19:59)
[2025-02-11 05:07] VITALS: BMI 32.7
[2025-02-11 07:45] LABS: Hematocrit 22.3 % (39.0-52.0); Hemoglobin 7.4 g/dL (13.0-18.0); Mean Corp Hgb Conc. 33.2 g/dL (33.0-37.0); Mean Corpuscular Volume 83.2 fL (80.0-94.0); Platelet Count 293 10^3/uL (130-400); Red Cell Dist. Width 15.9 % (11.5-14.5)
[2025-02-11 07:45] LABS: Glucose - Point of Care 224 mg/dl (70-99)
[2025-02-11] MEDS: COREG 25 MG PO ×2 (07:54→20:02)
[2025-02-11] MEDS: NOVOLOG FLEXPEN-LOW RESISTANCE 2 UNITS SC (07:54)
[2025-02-11] MEDS: LANTUS 0.3 UNITS SC ×2 (07:54→21:50)
[2025-02-11] MEDS: RANEXA EXTENDED RELEASE 1000 MG PO ×2 (07:55→19:59)
[2025-02-11] MEDS: PLAVIX 75 MG PO (07:55)
[2025-02-11] MEDS: DEMADEX 40 MG PO (07:55)
[2025-02-11] MEDS: IMDUR (EXTENDED RELEASE) 60 MG PO (07:55)
[2025-02-11] MEDS: CYMBALTA DELAYED RELEASE 30 MG PO (07:55)
[2025-02-11] MEDS: SANTYL OINTMENT 1 APPLIC TOPICAL (07:55)
[2025-02-11] MEDS: PROTONIX 40 MG PO (07:55)
[2025-02-11] MEDS: NEURONTIN 300 MG PO ×3 (07:55→21:49)
[2025-02-11] MEDS: ASPIR LOW (ENTERIC COATED) 81 MG PO (07:55)
[2025-02-11 08:01] VITALS: BP 158/84
[2025-02-11 08:18] LABS: Blood Urea Nitrogen 35 mg/dl (9-20); Calcium 8.7 mg/dl (8.4-10.2); Carbon Dioxide 24 mmol/L (22-30); Chloride 101 mmol/L (98-107); Estimated Creatinine Clearance 107 ml/min; Glucose 212 mg/dl (70-99); Potassium 4.6 mmol/L (3.5-5.1); Sodium 134 mmol/L (135-145); eGFR > 60.00
[2025-02-11] MEDS: COLACE PO (08:57)
--- NOTE | 2025-02-11 09:17 | PTCARENOTE ---
Md made aware of hgb drop from 02/10 to 02/11. IV iron ordered. blood cultures drawn yesterday and remain pending. left heel site with minimal bloody output. kerlix and andriy wrap remain CDI. patient refused colace this morning.
--- NOTE | 2025-02-11 10:44 | CM ---
Reviewed the chart notes. CM continues to be available to patient/family and is monitoring medical plan for needs at discharge.
Plan: Discharge back to [facility] when medically stable.
Report: [phone]
--- NOTE | 2025-02-11 11:09 | W.PN.HOSP.TC ---
Today's Communication/Plan
-
Transfuse 1 unit of PRBC
Trend CBC
Follow-up on the culture data
Await podiatry input
Assessment / Plan
Assessment / Plan
Impression:
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
Osteomyelitis of the left hallux status post amputation 01/21/2025 in outside hospital
Acute blood loss anemia requiring transfusion
Fever
Other conditions
Insulin requiring diabetes.
CAD with stenting
Essential hypertension.
Heart failure with unknown EF, compensated on admission.
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
GERD.
Plan:
Recurrent wound bleeding with acute blood loss anemia.
Hemoglobin of 7.4. Transfuse additional unit of PRBC.
Wound care with pressure dressing
Podiatry evaluation noted-no current active bleeding. No overall breakthrough bleeding. Await for repeat podiatry recs.
Fever? Source
Video Game Maker did not feel wound is infected.
Follow-up on the blood and urine culture data.
Patient self catheterizes.
History of CIDP.
Patient reports generalized fatigue.
Requested neurology evaluation
Input appreciated.
Recommended outpatient follow-up and treatment
Chronic pain likely attributed to above as well as recent surgeries.
Continue duloxetine, Tylenol, gabapentin, hydrocodone.
dc hydromorphone
Cardiovascular.
CAD with prior PCI and stenting.
Essential hypertension
Chronic CHF unknown EF.
Volume status compensated.
Continue Coreg, Imdur, Ranexa, Demadex
IDDM.
Basal bolus protocol.
Lantus/aspart
Carbohydrate diet
Anticipated Discharge: 24 - 48 hours
Subjective/Interval History
-
Date of Service: February 11, 2025
Patient remains afebrile overnight
Not any breakthrough bleeding
Objective Data
-
Labs:
Laboratory Results
02/11/25
07:17
WBC 9.6
Hgb 7.4 L
Hct 22.3 L
Plt Count 293 D
Sodium 134 L
Potassium 4.6
Chloride 101
Carbon Dioxide 24
BUN 35 H
Creatinine 1.3
Glucose 212 H
Calcium 8.7
Vital Signs:
Vital Signs
Temp Pulse Resp BP Pulse Ox
98.1 F 88 16 158/84 98
02/11/25 08:01 02/11/25 08:01 02/11/25 08:01 02/11/25 08:01 02/11/25 08:01
I&O
02/10/25 02/11/25 02/12/25
06:59 06:59 06:59
Intake Total 1140 / 1140 1420 / 1420
Output Total 2950 / 2950 3500 / 3500
Balance -1810 / -1810 -2080 / -2080
Physical Exam
-
General: Comfortable and Other (Looks older than stated age)
Respiratory: Non Labored Respirations; Negative Clear to Auscultation or Accessory Resp Muscle Use
Cardiac: Regular Rhythm and S1/S2
GI: Soft, Nontender, Nondistended and Normal Bowel Sounds
Musculoskeletal: Other (Left foot in dressing. Left lateral leg with old bruise noted and scabbing.)
Neuro: Awake, Alert, Oriented and AO x 3
Psych: Calm; Negative Confused
Data Reviewed
-
Total Time Spent with Patient (in minutes): 55
[2025-02-11] MEDS: NOVOLOG FLEXPEN-LOW RESISTANCE 4 UNITS SC (12:12)
--- NOTE | 2025-02-11 13:00 | W.PN.POD ---
Today's Communication
Today's Communication
Hemostasis achieved at the medial heel wound. Continue with Santyl and wound care. Reconsult as needed
Assessment / Plan
-
Impression/plan
Excessive bleeding left medial heel wound
-May be due to combination of antiplatelet treatment, trauma and calcified vessels. Ultrasound performed on last admission showed no significant arterial stenosis
-Plavix and ASA resumed last night. Minimal bleeding on dressing only. No spontaneous bleeding noted with dressing removed for a time during exam today.
-Continue Santyl as a debriding agent. So far hemostasis stable with patient receiving Plavix. Surgical debridement at this time is not warranted.
-Concern regarding continued low hemoglobin despite hemostasis
-Sign off today as original issue has resolved. Please re consult if needed.
Fever source
-WBC now 9.6 and patient afebrile today. Urine culture positive for gram negative Bacilli
-With low Hgb over time the wound can become infected due to lack of oxygen. If blood cultures negative and other sources ruled out, would consider MRI of the foot to rule this out as source of infection.
Right BKA
-Patient states his right prosthesis is back in [place] where he had his last surgery. For this reason, PT is not an option for weight bearing.
IDDM with peripheral neuropathy
CIDP
CAD
CHF
Subjective
Objective
Temp Pulse Resp BP Pulse Ox
98.1 F 88 16 158/84 98
02/11/25 08:01 02/11/25 08:01 02/11/25 08:01 02/11/25 08:01 02/11/25 08:01
02/11/25 07:17
02/11/25 07:17
Vital Signs and Lab results were reviewed.
Physical Exam
Physical Exam
dressing changed today with no notable bleeding. Some drainage which may be attributed to use of Santyl. No surrounding edema or erythema. Central aspect of the wound dry but no purulence.
[2025-02-11 13:26] VITALS: BP 144/79
[2025-02-11 13:43] VITALS: BP 128/75
[2025-02-11] MEDS: STERILE WATER FOR INJECTION 10 ML IV (14:55)
[2025-02-11] MEDS: ROCEPHIN 1000 MG IV (14:55)
[2025-02-11 15:46] VITALS: BP 132/72
[2025-02-11] MEDS: FERRLECIT 110 MG IV (15:47)
--- NOTE | 2025-02-11 16:00 | PTCARENOTE ---
1 unit of PRBC hung this afternoon. blood complete around 1546. pt IV iron hung following his blood through his R AC site.
[2025-02-11] MEDS: TYLENOL 650 MG PO (16:18)
[2025-02-11] MEDS: NOVOLOG FLEXPEN-LOW RESISTANCE 3 UNITS SC (16:21)
[2025-02-11 16:47] LABS: Glucose - Point of Care 317 mg/dl (70-99)
[2025-02-11 16:48] LABS: Glucose - Point of Care 274 mg/dl (70-99)
[2025-02-11] MEDS: COLACE 100 MG PO (19:59)
[2025-02-11 21:09] LABS: Glucose - Point of Care 269 mg/dl (70-99)
[2025-02-11] MEDS: LIPITOR 80 MG PO (21:50)
[2025-02-11 23:35] VITALS: BP 129/74
[2025-02-12] MEDS: NORCO 5/325 1 TABLET PO ×3 (05:11→14:42)
[2025-02-12 05:45] VITALS: BMI 32.8
[2025-02-12 07:00] VITALS: BP 150/80
[2025-02-12 07:45] LABS: Glucose - Point of Care 174 mg/dl (70-99)
--- NOTE | 2025-02-12 07:57 | W.PN.HOSP.TC ---
Today's Communication/Plan
-
await ucx data
iv abx in the interim
Assessment / Plan
Assessment / Plan
Impression:
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
Osteomyelitis of the left hallux status post amputation 01/21/2025 in outside hospital
Acute blood loss anemia requiring transfusion
Fever likely UTI
Other conditions
Insulin requiring diabetes.
CAD with stenting
Essential hypertension.
Heart failure with unknown EF, compensated on admission.
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
GERD.
Plan:
Recurrent wound bleeding with acute blood loss anemia.
Hemoglobin of 8.2. s/p 2u of PRBC
Wound care with pressure dressing
Podiatry evaluation noted-no current active bleeding. No overall breakthrough bleeding.
Valve Assembler did not feel wound is infected.
Blood cultures are negative. Urine culture gram-negative. Await urine culture identification susceptibility.
Patient self catheterizes.
History of CIDP.
Patient reports generalized fatigue.
Requested neurology evaluation
Input appreciated.
Recommended outpatient follow-up and treatment
Chronic pain likely attributed to above as well as recent surgeries.
Continue duloxetine, Tylenol, gabapentin, hydrocodone.
dc hydromorphone
Cardiovascular.
CAD with prior PCI and stenting.
Essential hypertension
Chronic CHF unknown EF.
Volume status compensated.
Continue Coreg, Imdur, Ranexa, Demadex
IDDM.
Basal bolus protocol.
Lantus/aspart
Carbohydrate diet
Anticipated Discharge: 24 - 48 hours
Subjective/Interval History
-
Date of Service: February 12, 2025
states of pain
had bm yesterday
Objective Data
-
Labs:
Laboratory Results
02/12/25
06:00
WBC Pending
Hgb Pending
Hct Pending
Plt Count Pending
Sodium Pending
Potassium Pending
Chloride Pending
Carbon Dioxide Pending
BUN Pending
Creatinine Pending
Glucose Pending
Calcium Pending
Vital Signs:
Vital Signs
Temp Pulse Resp BP Pulse Ox
98.4 F 81 16 129/74 96
02/11/25 23:35 02/11/25 23:35 02/11/25 23:35 02/11/25 23:35 02/11/25 23:35
I&O
02/11/25 02/12/25 02/13/25
06:59 06:59 06:59
Intake Total 1420 / 1420 2320 / 2320
Output Total 3500 / 3500 2850 / 2850
Balance -2080 / -2080 -530 / -530
Physical Exam
-
General: Comfortable and Other (Looks older than stated age)
Respiratory: Non Labored Respirations; Negative Clear to Auscultation or Accessory Resp Muscle Use
Cardiac: Regular Rhythm and S1/S2
GI: Soft, Nontender, Nondistended and Normal Bowel Sounds
Musculoskeletal: Other (Left foot in dressing. Left lateral leg with old bruise noted and scabbing.)
Neuro: Awake, Alert, Oriented and AO x 3
Psych: Calm; Negative Confused
[2025-02-12] MEDS: SANTYL OINTMENT 1 APPLIC TOPICAL (08:38)
[2025-02-12] MEDS: ASPIR LOW (ENTERIC COATED) 81 MG PO (08:39)
[2025-02-12] MEDS: COREG 25 MG PO ×2 (08:39→19:34)
[2025-02-12] MEDS: NEURONTIN 300 MG PO ×3 (08:40→21:13)
[2025-02-12] MEDS: RANEXA EXTENDED RELEASE 1000 MG PO ×2 (08:40→19:33)
[2025-02-12] MEDS: CYMBALTA DELAYED RELEASE 30 MG PO (08:40)
[2025-02-12] MEDS: DEMADEX 40 MG PO (08:41)
[2025-02-12] MEDS: COLACE PO (08:41)
[2025-02-12] MEDS: IMDUR (EXTENDED RELEASE) 60 MG PO (08:41)
[2025-02-12] MEDS: PROTONIX 40 MG PO (08:42)
[2025-02-12] MEDS: PLAVIX PO (08:42)
[2025-02-12 08:44] LABS: Hematocrit 24.7 % (39.0-52.0); Hemoglobin 8.2 g/dL (13.0-18.0); Mean Corp Hgb Conc. 33.2 g/dL (33.0-37.0); Mean Corpuscular Volume 86.7 fL (80.0-94.0); Nucleated Red Blood Cells % 0 % (-); Platelet Count 447 10^3/uL (130-400); Red Cell Dist. Width 16.1 % (11.5-14.5)
[2025-02-12 09:08] LABS: Blood Urea Nitrogen 36 mg/dl (9-20); Calcium 8.5 mg/dl (8.4-10.2); Carbon Dioxide 30 mmol/L (22-30); Chloride 101 mmol/L (98-107); Estimated Creatinine Clearance 116 ml/min; Glucose 166 mg/dl (70-99); Potassium 4.2 mmol/L (3.5-5.1); Sodium 136 mmol/L (135-145); eGFR > 60.00
[2025-02-12] MEDS: NOVOLOG FLEXPEN-LOW RESISTANCE 1 UNITS SC (10:15)
[2025-02-12] MEDS: LANTUS 0.3 UNITS SC ×2 (10:15→21:13)
[2025-02-12] MEDS: PLAVIX 75 MG PO (10:16)
[2025-02-12 12:21] LABS: Glucose - Point of Care 333 mg/dl (70-99)
[2025-02-12] MEDS: NOVOLOG FLEXPEN-LOW RESISTANCE 4 UNITS SC (13:02)
[2025-02-12] MEDS: ROCEPHIN 1000 MG IV (14:43)
[2025-02-12] MEDS: STERILE WATER FOR INJECTION 10 ML IV (14:43)
[2025-02-12] MEDS: FERRLECIT 110 MG IV (14:44)
[2025-02-12 15:00] VITALS: BP 117/69
[2025-02-12 17:18] LABS: Glucose - Point of Care 277 mg/dl (70-99)
[2025-02-12] MEDS: NOVOLOG FLEXPEN-LOW RESISTANCE 3 UNITS SC (18:16)
[2025-02-12] MEDS: COLACE 100 MG PO (19:34)
[2025-02-12 21:08] LABS: Glucose - Point of Care 210 mg/dl (70-99)
[2025-02-12] MEDS: LIPITOR 80 MG PO (21:13)
[2025-02-12 23:35] VITALS: BP 125/70
[2025-02-13 07:35] VITALS: BP 174/91
[2025-02-13 07:48] LABS: Glucose - Point of Care 134 mg/dl (70-99)
--- NOTE | 2025-02-13 07:50 | W.PN.HOSP.TC ---
Addendum entered and electronically signed by Brian Dunne MD 02/23/25 13:10:
UTI only Without Systemic symptoms
Original Note:
Today's Communication/Plan
-
DC ceftriaxone
ID input for antibiotic
Blood cultures negative
Assessment / Plan
Assessment / Plan
Impression:
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
Osteomyelitis of the left hallux status post amputation 01/21/2025 in outside hospital
Acute blood loss anemia requiring transfusion
Fever likely Klebsiella multidrug urinary tract infection versus low likelihood of wound infection
Other conditions
Insulin requiring diabetes.
CAD with stenting
Essential hypertension.
Heart failure with unknown EF, compensated on admission.
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
GERD.
Plan:
Recurrent wound bleeding with acute blood loss anemia.
Hemoglobin of 8.1. s/p 2u of PRBC
Wound care with pressure dressing
Podiatry evaluation noted-no current active bleeding. No overall breakthrough bleeding.
Job Molder did not feel wound is infected.
Blood cultures are negative.
Urine culture with multidrug-resistant organisms
Patient self catheterizes.
DC ceftriaxone. Sensitivity to only gentamicin and tobramycin noted
Will ask infectious disease for input
History of CIDP.
Patient reports generalized fatigue.
Requested neurology evaluation
Input appreciated.
Recommended outpatient follow-up and treatment
Chronic pain likely attributed to above as well as recent surgeries.
Continue duloxetine, Tylenol, gabapentin, hydrocodone.
dc hydromorphone
Cardiovascular.
CAD with prior PCI and stenting.
Essential hypertension
Chronic CHF unknown EF.
Volume status compensated.
Continue Coreg, Imdur, Ranexa, Demadex
IDDM.
Basal bolus protocol.
Lantus/aspart
Carbohydrate diet
Anticipated Discharge: 24 - 48 hours
Subjective/Interval History
-
Date of Service: February 13, 2025
States he slept well overnight
States feeling weak
Objective Data
-
Labs:
Laboratory Results
02/13/25
06:00
WBC Pending
Hgb Pending
Hct Pending
Plt Count Pending
Sodium Pending
Potassium Pending
Chloride Pending
Carbon Dioxide Pending
BUN Pending
Creatinine Pending
Glucose Pending
Calcium Pending
Vital Signs:
Vital Signs
Temp Pulse Resp BP Pulse Ox
98.2 F 83 20 125/70 96
02/12/25 23:35 02/12/25 23:35 02/12/25 23:35 02/12/25 23:35 02/12/25 23:35
I&O
02/12/25 02/13/25 02/14/25
06:59 06:59 06:59
Intake Total 2320 / 2320 1620 / 1620
Output Total 2850 / 2850 2550 / 2550
Balance -530 / -530 -930 / -930
Physical Exam
-
General: Comfortable and Other (Looks older than stated age)
Respiratory: Non Labored Respirations; Negative Clear to Auscultation or Accessory Resp Muscle Use
Cardiac: Regular Rhythm and S1/S2
GI: Soft, Nontender, Nondistended and Normal Bowel Sounds
Musculoskeletal: Other (Left foot in dressing. Left lateral leg with old bruise noted and scabbing.)
Neuro: Awake, Alert, Oriented and AO x 3
Psych: Calm; Negative Confused
[2025-02-13 09:04] LABS: Hematocrit 25.0 % (39.0-52.0); Hemoglobin 8.1 g/dL (13.0-18.0); Mean Corp Hgb Conc. 32.4 g/dL (33.0-37.0); Mean Corpuscular Volume 85.9 fL (80.0-94.0); Nucleated Red Blood Cells % 0 % (-); Platelet Count 516 10^3/uL (130-400); Red Cell Dist. Width 16.3 % (11.5-14.5)
[2025-02-13] MEDS: ASPIR LOW (ENTERIC COATED) 81 MG PO (09:06)
[2025-02-13] MEDS: NOVOLOG FLEXPEN-LOW RESISTANCE SC ×2 (09:06→12:49)
[2025-02-13] MEDS: DEMADEX 40 MG PO (09:06)
[2025-02-13] MEDS: COREG 25 MG PO ×2 (09:07→20:46)
[2025-02-13] MEDS: RANEXA EXTENDED RELEASE 1000 MG PO ×2 (09:07→20:46)
[2025-02-13] MEDS: IMDUR (EXTENDED RELEASE) 60 MG PO (09:07)
[2025-02-13] MEDS: COLACE 100 MG PO (09:07)
[2025-02-13] MEDS: CYMBALTA DELAYED RELEASE 30 MG PO (09:07)
[2025-02-13] MEDS: PROTONIX 40 MG PO (09:07)
[2025-02-13] MEDS: SANTYL OINTMENT 1 APPLIC TOPICAL (09:08)
[2025-02-13] MEDS: PLAVIX 75 MG PO (09:08)
[2025-02-13] MEDS: NEURONTIN 300 MG PO ×3 (09:08→20:50)
[2025-02-13] MEDS: LANTUS 0.3 UNITS SC ×2 (09:09→21:42)
[2025-02-13 11:57] LABS: Glucose - Point of Care 91 mg/dl (70-99)
[2025-02-13] MEDS: NORCO 5/325 1 TABLET PO (13:11)
[2025-02-13] MEDS: FERRLECIT 110 MG IV (14:22)
[2025-02-13 15:30] VITALS: BP 117/64
[2025-02-13] MEDS: NORCO 7.5/325 1 TABLET PO ×2 (15:48→20:46)
--- NOTE | 2025-02-13 15:52 | CON.ID ---
Consultation
-
Date/Time Consultation Requested: February 13, 2025 1026
Date/Time Consultation Performed: February 13, 2025 1550
Requesting Provider: Dr. Brian Dunne
Performing Provider: Dr. Mary Kay Ca
Reason for Consultation: Drug-resistant UTI
Chief Complaint / Past History
Chief Complaint
Left heel wound bleeding
History of Present Illness
29-year-old male currently incarcerated with history of diabetes mellitus, CAD, Guillain-Potts� syndrome/CIDP, right BKA, left toes osteomyelitis status post amputation and debridement of left heel ulcer on January 21, 2025 who presented to the ER on
February 07 due to profuse bleeding from the left heel wound with blood loss anemia. During the hospital stay he spiked a temperature up to 101.4 on February 09. Also with new leukocytosis. Patient was pancultured. The urine culture resulted as
multidrug-resistant Enterobacter. Blood cultures negative. Patient does report chills yesterday. He also has dysuria. No flank pain. He has chronic bilateral back pain. Patient reports he had history of UTI once and he was septic from it; this
was in [place]. He states he has chronic kidney disease stage III although his current creatinine clearance is more than 60.
Past History
Additional Past Medical History:
Diabetes mellitus
CAD status post PCI
CHF
hx CKD3
Hypertension
Guillain-Potts� syndrome/CIDP, plasma exchange q 2 months
PAD status post right BKA
Left hallux and second toe osteomyelitis status post amputation and debridement of left heel ulcer January 21, 2025
Allergy History:
silver Allergy (Mild, Verified 02/07/25 13:07)
Hives
silver nitrate Allergy (Mild, Verified 02/07/25 13:07)
Hives
ibuprofen Allergy (Unknown, Verified 02/07/25 13:05)
Unknown
oxycodone Allergy (Unknown, Verified 02/07/25 13:05)
Unknown
Penicillins Allergy (Unknown, Verified 02/07/25 13:05)
Unknown
sweet potato Allergy (Unknown, Verified 02/07/25 13:05)
Unknown
tuna oil Allergy (Unknown, Verified 02/07/25 13:05)
Unknown
turkey Allergy (Unknown, Verified 02/07/25 13:05)
Unknown
Medications Reviewed: Yes
Current Antibiotics:
Ceftriaxone
Social History
Tobacco: Non-Smoker
Alcohol: None
Drug: None
Living: Group Home
Family History
Family History: Not Pertinent
Review of Systems
Review of Systems
General: Fever and Chills; Negative Change in Appetite
HEENT: Negative Sinus Problems or Headache
Cardiovascular: Negative Chest Pain or Dyspnea
Respiratory: Negative Dyspnea or Cough
Gasteroenterology: Negative Nausea, Vomiting or Diarrhea
Genital / Urological: Dysuria; Negative Flank Pain
Endocrine: Weakness
All systems: All other systems were reviewed and were negative
Vital Signs
Temp Pulse Resp BP Pulse Ox
98.8 F 87 16 117/64 97
02/13/25 15:30 02/13/25 15:30 02/13/25 15:30 02/13/25 15:30 02/13/25 15:30
Physical Exam
Physical Exam
Constitutional: No Acute Distress and Chronically Ill
Eyes: No Conjunctival Hemorrhage and Sclera Anicteric
Cardiovascular: Regular Rate and S1/S2
Pulmonary: Clear
Gastrointestinal: Soft, Non Tender, Non Distended and Normal Bowel Sounds
Genito-Urinary: Negative CVA Tenderness
Extremities: Other (Right BKA ); Negative Edema
Wound: Other (Left foot dressing dry)
Neurological: AO x 3
Lab / Diagnostic Study Results
02/13/25 08:53
02/13/25 09:39
Abs Immat Gran (auto) 0.2 10^3/uL (0-0.05) H 02/13/25 08:53
Absolute Neuts (auto) 9.3 10^3/uL (1.4-6.5) H 02/13/25 08:53
Absolute Lymphs (auto) 1.2 10^3/uL (1.2-3.4) 02/13/25 08:53
Absolute Monos (auto) 1.0 10^3/uL (0.1-0.6) H 02/13/25 08:53
Absolute Basos (auto) 0.0 10^3/uL (0-0.2) 02/13/25 08:53
Immature Gran % 1.6 % (0-0.5) H 02/13/25 08:53
Neutrophils % 77.7 % (42.2-75.2) H 02/13/25 08:53
Lymphocytes % 9.6 % (20.5-51.1) L 02/13/25 08:53
Monocytes % 8.7 % (1.7-9.3) 02/13/25 08:53
Eosinophils % 2.1 % (0-6) 02/13/25 08:53
Basophils % 0.3 % (0-2) 02/13/25 08:53
Ur Squamous Epith Cells 0-2 /LPF (Few) 02/10/25 17:05
Microbiology Results
Micro:
02/10/25 17:05 Urine Culture - Final
Urine Enterobacter species
02/10/25 19:30 Blood Culture - Preliminary
Blood/Venous No Growth in 48 hours- Final report to follow
02/10/25 18:04 Blood Culture - Preliminary
Blood/Venous No Growth in 48 hours- Final report to follow
02/08/25 16:16 MRSA Screen - Final
Nose No Methicillin Resistant Staphylococcus aureus isolated.
Assessment / Plan
# Symptomatic UTI with MDR/Carbapenem- resistant Enterobacter
# Fever
# Leukocytosis
- Blood cx's negative.
- Organism is sensitive only to aminoglycoside.
- Asked micro to test the Enterobacter for Avycaz sensitivity.
- Start tobramycin IV.
-Monitor closely for nephrotoxicity and ototoxicity while on tobramycin.
-Trend temperature/white count.
-Place patient in contact precaution.
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
Diabetes mellitus
CAD status post PCI
CHF
hx CKD3
Hypertension
Guillain-Potts� syndrome/CIDP, plasma exchange q 2 months
PAD status post right BKA
Left hallux and second toe osteomyelitis status post amputation and debridement of left heel ulcer January 21, 2025
[2025-02-13 16:32] LABS: Glucose - Point of Care 218 mg/dl (70-99)
--- NOTE | 2025-02-13 16:41 | PHA.KIN.INIT ---
Assessment / Plan
- Assessment
Renal Function: Appears similar to baseline
Has Patient Previously Received this Agent: No/Unknown
- Plan
Dosing plan:
Extended interval dosing regimen - treatment of MDR Enterobacter UTI
Maintenance regimen: 540 mg (~6 mg/kg) q24h
Monitoring: Obtain level 02/14 at 6:00 AM labs (~12 hour level)
Initial Pharmacokinetics Note
- -
Patient Age: 29
Patient Sex: Male
Antibiotic: Tobramycin
Antibiotic Day #: 1
Indication: Genito-Urinary Tract
Requesting Provider: Dr. Ca
Pertinent Antimicrobial Allergies:
PCN: unknown
Height / Weight:
Height 6 ft
Actual Weight 109.724 kg
IBW in k.6 kg
Adjusted BW in k.4 kg
Pertinent Past Medical History: DM, Guillian [place], right BKA, BMI: 32.8
- Vital Signs / Lab results
Temp Pulse Resp BP Pulse Ox
98.8 F 87 16 117/64 97
02/13/25 15:30 02/13/25 15:30 02/13/25 15:30 02/13/25 15:30 02/13/25 15:30
Maximum Temperature:
Lab Results - Hematology
02/11/25 02/12/25 02/13/25
07:17 08:01 08:53
WBC 9.6 12.4 H 12.0 H
Lab Results - Chemistry
02/11/25 02/12/25 02/13/25
07:17 08:01 08:53
BUN 35 H 36 H Cancelled
Creatinine 1.3 1.2 Cancelled
Estimated Creat Clear 107 116 Cancelled
02/13/25
09:39
BUN Cancelled
Creatinine Cancelled
Estimated Creat Clear Cancelled
Lab Results - Urine
02/10/25
17:05
Urine Nitrite (Reflex) Negative
Leukocyte Esterase Rfl 3+ A
Urine WBC (Reflex) 60-70 A
Ur Squamous Epith Cells 0-2
Urine Bacteria (Reflex) Moderate A
Microbiology Results
02/10/25 17:05 Urine Culture - Final
Urine Enterobacter species
02/10/25 19:30 Blood Culture - Preliminary
Blood/Venous No Growth in 48 hours- Final report to follow
02/10/25 18:04 Blood Culture - Preliminary
Blood/Venous No Growth in 48 hours- Final report to follow
Historical Micro:
Concomitant Antimicrobials:
[2025-02-13] MEDS: NOVOLOG FLEXPEN-LOW RESISTANCE 2 UNITS SC (17:47)
[2025-02-13] MEDS: NEBCIN 63.5 MG IV (18:06)
[2025-02-13] MEDS: LIPITOR 80 MG PO (20:50)
[2025-02-13] MEDS: COLACE PO (20:51)
[2025-02-13 21:23] LABS: Glucose - Point of Care 237 mg/dl (70-99)
[2025-02-13 23:18] VITALS: BP 136/70
[2025-02-14 06:00] VITALS: BMI 31.3
[2025-02-14 07:36] LABS: Glucose - Point of Care 88 mg/dl (70-99)
[2025-02-14 07:37] VITALS: BP 162/79
[2025-02-14 08:51] LABS: Hematocrit 25.9 % (39.0-52.0); Hemoglobin 8.1 g/dL (13.0-18.0); Mean Corp Hgb Conc. 31.3 g/dL (33.0-37.0); Mean Corpuscular Volume 87.5 fL (80.0-94.0); Nucleated Red Blood Cells % 0 % (-); Platelet Count 529 10^3/uL (130-400); Red Cell Dist. Width 16.8 % (11.5-14.5)
[2025-02-14] MEDS: NORCO 7.5/325 1 TABLET PO ×4 (09:16→22:01)
[2025-02-14] MEDS: PROTONIX 40 MG PO (09:16)
[2025-02-14] MEDS: ASPIR LOW (ENTERIC COATED) 81 MG PO (09:16)
[2025-02-14] MEDS: NEURONTIN 300 MG PO ×3 (09:16→22:02)
[2025-02-14] MEDS: COREG 25 MG PO ×2 (09:17→22:02)
[2025-02-14] MEDS: CYMBALTA DELAYED RELEASE 30 MG PO (09:17)
[2025-02-14] MEDS: PLAVIX 75 MG PO (09:17)
[2025-02-14] MEDS: COLACE 100 MG PO (09:17)
[2025-02-14] MEDS: DEMADEX 40 MG PO (09:17)
[2025-02-14] MEDS: RANEXA EXTENDED RELEASE 1000 MG PO ×2 (09:18→22:02)
[2025-02-14] MEDS: LANTUS 0.3 UNITS SC ×2 (09:18→22:03)
[2025-02-14] MEDS: SANTYL OINTMENT 1 APPLIC TOPICAL (09:18)
[2025-02-14 09:19] LABS: Blood Urea Nitrogen 30 mg/dl (9-20); Calcium 8.5 mg/dl (8.4-10.2); Carbon Dioxide 30 mmol/L (22-30); Chloride 101 mmol/L (98-107); Estimated Creatinine Clearance 97 ml/min; Glucose 74 mg/dl (70-99); Potassium 3.8 mmol/L (3.5-5.1); Sodium 139 mmol/L (135-145); eGFR > 60.00
[2025-02-14] MEDS: IMDUR (EXTENDED RELEASE) 60 MG PO (09:19)
[2025-02-14] MEDS: NOVOLOG FLEXPEN-LOW RESISTANCE SC (09:19)
--- NOTE | 2025-02-14 09:20 | CM ---
Reviewed the chart notes. Patient started on tobramycin IV. CM continues to be available to patient/family and is monitoring medical plan for needs at discharge.
Plan: Discharge back to [facility] when medically stable.
[2025-02-14 11:35] LABS: Glucose - Point of Care 195 mg/dl (70-99)
[2025-02-14] MEDS: NOVOLOG FLEXPEN-LOW RESISTANCE 1 UNITS SC ×2 (11:54→17:29)
--- NOTE | 2025-02-14 14:02 | PHA.KIN.UP ---
Assessment / Plan
- Assessment
Renal Function: Stable
WBC's are: Stable
In the past 24 hrs, patient has been: Afebrile
- Plan: Continue Present Regimen
Continue: Tobramycin 540mg Q24H
Random level pending from outside lab
Will continue present dosing for today
Consider peak/trough following 3rd dose tomorrow
- Follow Up
Pharmacy will continue to follow.
FollowUp Pharmacokinetics Note
- -
Patient Age: 29
Patient Sex: Male
Antibiotic: Tobramycin
Antibiotic Day #: 2
Indication: Genito-Urinary Tract
Requesting Provider: Dr. Ca
Pertinent Antimicrobial Allergies:
PCN - unknown; tolerated amoxicillin
Height / Weight:
Height 6 ft
Actual Weight 104.598 kg
Pertinent Past Medical History: DM, Guillian [place], right BKA, BMI: 32.8
- Vital Signs / Lab Results
Temp Pulse Resp BP Pulse Ox
97.8 F 85 20 162/79 96
02/14/25 07:37 02/14/25 09:17 02/14/25 07:37 02/14/25 09:17 02/14/25 07:37
Lab Results - Hematology
02/12/25 02/13/25 02/14/25
08:01 08:53 08:36
WBC 12.4 H 12.0 H 12.1 H
Lab Results - Chemistry
02/12/25 02/13/25 02/13/25
08:01 08:53 09:39
BUN 36 H Cancelled Cancelled
Creatinine 1.2 Cancelled Cancelled
Estimated Creat Clear 116 Cancelled Cancelled
02/14/25
08:36
BUN 30 H
Creatinine 1.4 H
Estimated Creat Clear 97
Microbiology Results
02/10/25 17:05 Urine Culture - Final
Urine Enterobacter species
02/10/25 19:30 Blood Culture - Preliminary
Blood/Venous No Growth in 72 hours- Final report to follow
02/10/25 18:04 Blood Culture - Preliminary
Blood/Venous No Growth in 72 hours- Final report to follow
[2025-02-14] MEDS: FERRLECIT 110 MG IV (14:42)
[2025-02-14 15:16] VITALS: BP 139/77
--- NOTE | 2025-02-14 15:54 | W.PN.HOSP.TC ---
Today's Communication/Plan
-
Continue tobramycin
Renal bladder sonogram
Castillo catheter
Echocardiogram
Hold Demadex
Assessment / Plan
Assessment / Plan
Impression:
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
Osteomyelitis of the left hallux status post amputation 01/21/2025 in outside hospital
Acute blood loss anemia requiring transfusion
Complicated UTI
Other conditions
Insulin requiring diabetes.
CAD with stenting
Essential hypertension.
Heart failure with unknown EF, compensated on admission.
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
GERD.
Plan:
Recurrent wound bleeding with acute blood loss anemia.
Hemoglobin of 8.1. s/p 2u of PRBC
Wound care with pressure dressing
Podiatry evaluation noted-no current active bleeding. No overall breakthrough bleeding.
Cigar Wrapper Tender Automatic did not feel wound is infected.
Blood cultures are negative.
Urine culture with multidrug-resistant organisms
Patient self catheterizes.
DC ceftriaxone. Sensitivity to only gentamicin and tobramycin noted
Will ask infectious disease for input
Complicated UTI in a patient with chronic bladder outlet obstruction requiring self-catheterization.
Urine culture with MDR Enterobacter sensitive to aminoglycosides only.
Started on tobramycin
Monitor renal function closely
Castillo catheter to be placed on 02/14
AMBER
Creatinine rising to 1.4
Castillo catheter
Renal/bladder sonogram
IV hydration
Monitor renal function closely while on aminoglycosides
Hold Demadex
History of CIDP.
Patient reports generalized fatigue.
Requested neurology evaluation
Input appreciated.
Recommended outpatient follow-up and treatment
Chronic pain likely attributed to above as well as recent surgeries.
Continue duloxetine, Tylenol, gabapentin, hydrocodone.
dc hydromorphone
Cardiovascular.
CAD with prior PCI and stenting.
Essential hypertension
Chronic CHF unknown EF.
Volume status compensated.
PARKING MANAGER regimen: Coreg, Imdur, Ranexa, Demadex
Echocardiogram
IDDM.
Basal bolus protocol.
Lantus/aspart
Carbohydrate diet
Anticipated Discharge: 24 - 48 hours
Subjective/Interval History
-
Date of Service: February 14, 2025
Objective Data
-
Labs:
Laboratory Results
02/14/25
08:36
WBC 12.1 H
Hgb 8.1 L
Hct 25.9 L
Plt Count 529 H
Sodium 139
Potassium 3.8
Chloride 101
Carbon Dioxide 30
BUN 30 H
Creatinine 1.4 H
Glucose 74
Calcium 8.5
Vital Signs:
Vital Signs
Temp Pulse Resp BP Pulse Ox
98.4 F 88 14 139/77 98
02/14/25 15:16 02/14/25 15:16 02/14/25 15:16 02/14/25 15:16 02/14/25 15:16
I&O
02/13/25 02/14/25 02/15/25
06:59 06:59 06:59
Intake Total 1620 / 1620 720 / 720
Output Total 2550 / 2550 2250 / 2250
Balance -930 / -930 -1530 / -1530
Physical Exam
-
General: Comfortable and Other (Looks older than stated age)
Respiratory: Non Labored Respirations; Negative Clear to Auscultation or Accessory Resp Muscle Use
Cardiac: Regular Rhythm and S1/S2
GI: Soft, Nontender, Nondistended and Normal Bowel Sounds
Musculoskeletal: Other (Left foot in dressing. Left lateral leg with old bruise noted and scabbing.)
Neuro: Awake, Alert, Oriented and AO x 3
Psych: Calm; Negative Confused
[2025-02-14] MEDS: DILAUDID 0.25 MG IV (16:23)
[2025-02-14] MEDS: NSS 1000 IV (16:26)
[2025-02-14 17:04] LABS: Glucose - Point of Care 185 mg/dl (70-99)
[2025-02-14] MEDS: NEBCIN 63.5 MG IV (17:30)
[2025-02-14 21:42] LABS: Glucose - Point of Care 158 mg/dl (70-99)
[2025-02-14] MEDS: COLACE PO (21:54)
[2025-02-14] MEDS: LIPITOR 80 MG PO (22:02)
[2025-02-14 23:25] VITALS: BP 147/84
[2025-02-15] VITALS (8 sets, daily range): BP systolic 127–170; BP diastolic 73–92
[2025-02-15] MEDS: DILAUDID 0.25 MG IV ×3 (00:24→18:30)
[2025-02-15 08:14] LABS: Hematocrit 22.6 % (39.0-52.0); Hemoglobin 7.2 g/dL (13.0-18.0); Mean Corp Hgb Conc. 31.9 g/dL (33.0-37.0); Mean Corpuscular Volume 86.3 fL (80.0-94.0); Nucleated Red Blood Cells % 0 % (-); Platelet Count 480 10^3/uL (130-400); Red Cell Dist. Width 16.5 % (11.5-14.5)
[2025-02-15] MEDS: NOVOLOG FLEXPEN-LOW RESISTANCE SC ×2 (08:39→11:54)
[2025-02-15] MEDS: PROTONIX 40 MG PO (08:49)
[2025-02-15] MEDS: PLAVIX 75 MG PO (08:49)
[2025-02-15] MEDS: NEURONTIN 300 MG PO ×3 (08:50→21:55)
[2025-02-15] MEDS: COREG 25 MG PO ×2 (08:50→20:23)
[2025-02-15] MEDS: SANTYL OINTMENT 1 APPLIC TOPICAL (08:50)
[2025-02-15] MEDS: CYMBALTA DELAYED RELEASE 30 MG PO (08:50)
[2025-02-15] MEDS: IMDUR (EXTENDED RELEASE) 60 MG PO (08:50)
[2025-02-15] MEDS: RANEXA EXTENDED RELEASE 1000 MG PO ×2 (08:50→20:23)
[2025-02-15] MEDS: LANTUS 0.3 UNITS SC ×2 (08:51→21:58)
[2025-02-15] MEDS: ASPIR LOW (ENTERIC COATED) 81 MG PO (08:51)
[2025-02-15] MEDS: COLACE PO ×2 (08:54→20:23)
--- NOTE | 2025-02-15 08:57 | PHA.KIN.UP ---
Assessment / Plan
- Assessment
Renal Function: SCR Increasing
Level Today was: Random (7.3 - drawn yesterday ~14.5H after start of prior infusion; level resulted last night)
Based on a variety of nomograms, patient likely to require Q48H interval
Discussed with ID and will switch to gentamicin today for easier monitoring
- Plan: Adjust Regimen Based on Level
Dose will be adjusted to: Gentamicin 540mg Q48H - will start tonight in lieu of tobramycin
Repeat Level due (date): peak 02/15 19:30 and random 02/16 0600
levels will not be at steady state but will obtain 2 levels to assess more patient-specific PK
Changing interval to Q48H; however, will start gent tonight 24H after last tobra dose as switching drug and to assess levels prior to discharge
Follow renal function - may require dosing by level vs further increased interval if continues to increase
- Follow Up
Pharmacy will continue to follow.
FollowUp Pharmacokinetics Note
- -
Patient Age: 29
Patient Sex: Male
Antibiotic: Gentamicin (changed from tobramycin to gentamicin 02/15)
Antibiotic Day #: 3
Indication: Genito-Urinary Tract
Requesting Provider: Dr. Ca
Pertinent Antimicrobial Allergies:
PCN - unknown; tolerated amoxicillin
Height / Weight:
Height 6 ft
Actual Weight 104.598 kg
IBW in k.6 kg
Adjusted BW in k.4 kg
Pertinent Past Medical History: DM, Guillian [place], right BKA, BMI: 32.8
- Vital Signs / Lab Results
Temp Pulse Resp BP Pulse Ox
97.8 F 79 16 149/85 97
02/15/25 07:50 02/15/25 07:50 02/15/25 07:50 02/15/25 07:50 02/15/25 07:50
Lab Results - Hematology
0802/14/25 02/15/25
08:53 08:36 07:48
WBC 12.0 H 12.1 H 9.6
Lab Results - Chemistry
02/12/25 02/13/25 02/13/25
08:01 08:53 09:39
BUN 36 H Cancelled Cancelled
Creatinine 1.2 Cancelled Cancelled
Estimated Creat Clear 116 Cancelled Cancelled
02/14/25
08:36
BUN 30 H
Creatinine 1.4 H
Estimated Creat Clear 97
Microbiology Results
02/10/25 17:05 Urine Culture - Preliminary
Urine Enterobacter species
02/10/25 19:30 Blood Culture - Preliminary
Blood/Venous No Growth in 4 days- Final report to follow
02/10/25 18:04 Blood Culture - Preliminary
Blood/Venous No Growth in 4 days- Final report to follow
Concomitant Antimicrobials:
[2025-02-15] MEDS: NORCO 7.5/325 1 TABLET PO ×3 (08:58→20:26)
[2025-02-15 09:22] LABS: Blood Urea Nitrogen 28 mg/dl (9-20); Calcium 8.1 mg/dl (8.4-10.2); Carbon Dioxide 24 mmol/L (22-30); Chloride 103 mmol/L (98-107); Estimated Creatinine Clearance 80 ml/min; Glucose 80 mg/dl (70-99); Potassium 3.9 mmol/L (3.5-5.1); Sodium 136 mmol/L (135-145); eGFR 55.27
[2025-02-15 10:29] LABS: Total Iron Binding Capacity 189 ug/dl (261-462)
[2025-02-15 10:33] LABS: Iron < 20 ug/dl (49-181)
[2025-02-15 10:41] LABS: Urine Character Clear (Clear)
--- NOTE | 2025-02-15 10:41 | PN.CDI ---
CDI
- -
CDI:
Physician Documentation Request
Admit Date: 02/07/25 19:19
Dear Doctor Hannah,
Please review the following and provide your response in the progress notes.
Clinical Indicators:
PN, 02/09
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
#...in the settings of antiplatelet therapy with dual antiplatelet agents.
#...Osteomyelitis of the left hallux status post amputation 01/21/2025 in outside hospital
#...Acute blood loss anemia requiring transfusion
Please clarify the relationship, if any, between these conditions:
Yes, left heel wound recurrent hemorrhage is related to/associated with/due to dual antiplatelet agents.
No, left heel wound recurrent hemorrhage is not related to/associated with/due to dual antiplatelet agents___ but it is due to ___. (Please specify)
Other (please specify)
Use of terms such as suspected, likely, concern for, or probable (associated with a specific diagnosis that is being evaluated, monitored, or treated as if it exists) are acceptable and can be coded in the inpatient setting, when documented at the
time of discharge.
Thank you,
Claudia Finn RN BSN CCDS
CDI Specialist
Please contact via tiger text
Please use your independent medical judgment in providing your response.
--- NOTE | 2025-02-15 10:45 | PN.CDI ---
CDI
- -
CDI:
Physician Documentation Request
Admit Date: 02/07/25 19:19
Dear Doctor Hannah,
Please review the following and provide your response in the progress notes.
Clinical Indicators:
PN, 02/14
#Complicated UTI in a patient with chronic bladder outlet obstruction
#...requiring self-catheterization.
#Urine culture with MDR Enterobacter sensitive to aminoglycosides only.
#...Started on tobramycin
#Castillo catheter to be placed on 02/14
Based on the above and your clinical assessment, please clarify the relationship, if any, between these conditions:
Yes, Complicated UTI is related to/associated with/due to self-catheterization.
No, Complicated UTI is not related to/associated with/due to self-catheterization but it is due to ___. (Please specify)
Other (please specify)
Unable to determine
Use of terms such as suspected, likely, concern for, or probable (associated with a specific diagnosis that is being evaluated, monitored, or treated as if it exists) are acceptable and can be coded in the inpatient setting, when documented at the
time of discharge.
Thank you,
Claudia Finn RN BSN CCDS
CDI Specialist
Please contact via tiger text
Please use your independent medical judgment in providing your response.
[2025-02-15 11:06] LABS: Urine Red Blood Cell 0-2 /HPF (0-2); Urine White Cell 16-20 /HPF (0-5)
--- NOTE | 2025-02-15 11:10 | PTCARENOTE ---
Hgb this AM was 7.2, made aware, blood products ordered.
[2025-02-15 11:31] LABS: Body Fluid for Eosinophils 2% Eosinophils seen
[2025-02-15 11:44] LABS: Glucose - Point of Care 93 mg/dl (70-99)
[2025-02-15 11:51] LABS: Glucose - Point of Care 120 mg/dl (70-99)
[2025-02-15 11:57] LABS: Ferritin 458.0 ng/ml (17.9-464.0)
--- NOTE | 2025-02-15 12:15 | W.PN.ID1 ---
Date of Service
Date of Service: February 15, 2025
Today's Communication
DC tobramycin.
Assessment / Plan
# Symptomatic UTI with MDR/Carbapenem- resistant Enterobacter
# Fever -resolved
# Leukocytosis - resolved
# AMBER
- Blood cx's negative.
- Organism is sensitive only to aminoglycoside.
- Asked micro to test the Enterobacter for Avycaz sensitivity, pending.
- DC tobramycin due to AMBER and 2% eos in urine.
- Start Avycaz 2.5g IV q8h.
- Follow renal function closely
- Appreciate nephrology eval.
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
Diabetes mellitus
CAD status post PCI
CHF
hx CKD3
Hypertension
Guillain-Potts� syndrome/CIDP, plasma exchange q 2 months
PAD status post right BKA
Left hallux and second toe osteomyelitis status post amputation and debridement of left heel ulcer January 21, 2025
Chief Complaint
-: UTI
Subjective / Review of Systems
No new complaints
Vital Signs / Physical Exam
Vital Signs
Vital Signs
Temp Pulse Resp BP Pulse Ox
97.8 F 79 16 149/85 97
02/15/25 07:50 02/15/25 08:50 02/15/25 07:50 02/15/25 08:50 02/15/25 07:50
Physical Exam
Constitutional: No Acute Distress and Comfortable
Cardiovascular: Regular Rate and S1/S2
Pulmonary: Clear
Gastrointestinal: Soft and Non Tender
Genito-Urinary: Castillo and Clear Urine
Neurological: AO x 3
Objective Data
Lab Data
Lab Results
02/15/25 07:48
02/15/25 07:48
Estimated Creat Clear 80 ml/min 02/15/25 07:48
Total Bilirubin 0.4 mg/dl (0.2-1.3) 02/10/25 06:57
AST 14 U/L (17-59) L 02/10/25 06:57
ALT 16 U/L (0-50) 02/10/25 06:57
Alkaline Phosphatase 97 U/L (38-126) 02/10/25 06:57
Most recent labs reviewed.
Micro Results:
02/10/25 17:05 Urine Culture - Preliminary
Urine Enterobacter species
02/10/25 19:30 Blood Culture - Preliminary
Blood/Venous No Growth in 4 days- Final report to follow
02/10/25 18:04 Blood Culture - Preliminary
Blood/Venous No Growth in 4 days- Final report to follow
02/08/25 16:16 MRSA Screen - Final
Nose No Methicillin Resistant Staphylococcus aureus isolated.
Care Review
Plan reviewed with: Physician (Drs. Young and Angélica)
--- NOTE | 2025-02-15 12:43 | W.CON.NEPH ---
Consultation
-
Date/Time Consultation Requested: 02/15/2025 9 AM
Date/Time Consultation Performed: 02/15/2025 9 AM
Requesting Provider: Dr. Young
Performing Provider: Dr. Lindsay
Reason for Consultation: AMBER
Medical History
-
Chief Complaint: AMBER
History of Present Illness:
This is a 29-year-old incarcerated gentleman who has type 1 diabetes on chronic insulin therapy which is well-controlled by his report. He also has CIDP which he says is treated with plasma exchange every 2 months but he has not had one recently.
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 He presents with osteomyelitis of the left foot status post amputation and debridement of left heel ulcer on January 21, 2025. He was subsequently discharged back to jail but returned
because of bleeding from the left heel wound and anemia. His creatinine typically in the normal range has now increased to 1.7 we are asked to assist with management of the acute kidney injury. He has received only 2 days of aminoglycosides since
admission.
Past Medical History
Diabetes mellitus
CAD status post PCI
CHF
hx CKD3
Hypertension
Guillain-Potts� syndrome/CIDP, plasma exchange q 2 months
PAD status post right BKA
Left hallux and second toe osteomyelitis status post amputation and debridement of left heel ulcer January 21, 2025
Social History
Tobacco: Non-Smoker
Alcohol: None
Living: Detention
Family History
Factor V Leiden, diabetes mellitus type 2, coronary artery disease
Grandmother ESRD in her 80s
Allergies / Home Medications
Allergy/AdvReac Type Severity Reaction Status Date / Time
ibuprofen Allergy Unknown Verified 02/14/25 16:06
oxycodone Allergy Unknown Verified 02/14/25 16:06
Penicillins Allergy Unknown/tolerated Verified 02/14/25 16:06
amoxicillin
silver Allergy Hives Verified 02/14/25 16:06
silver nitrate Allergy Hives Verified 02/14/25 16:06
sweet potato Allergy Unknown Verified 02/14/25 16:06
tuna oil Allergy Unknown Verified 02/14/25 16:06
turkey Allergy Unknown Verified 02/14/25 16:06
�Medication �Instructions �Recorded �Confirmed �Type
acetaminophen 300 mg-codeine 30 mg 2 tab PO DIRECTED Pain 02/02/25 02/07/25 History
tablet
aspirin 81 mg tablet,delayed 81 mg PO DAILY Blood Clot 02/02/25 02/07/25 History
release Prevention/Tx
atorvastatin 80 mg tablet 80 mg PO HS High Cholesterol 02/02/25 02/07/25 History
carvedilol 25 mg tablet 25 mg PO BID Heart Failure 02/02/25 02/07/25 History
clopidogrel 75 mg tablet 75 mg PO DAILY Blood Clot 02/02/25 02/07/25 History
Prevention/Tx
insulin glargine 100 unit/mL (3 30 unit SC BID Diabetes 02/02/25 02/07/25 History
mL) subcutaneous pen (Lantus
Solostar U-100 Insulin)
isosorbide mononitrate 60 mg 60 mg PO DAILY Heart 02/02/25 02/07/25 History
tablet,extended release 24 hr Disease/Condition
pantoprazole 40 mg tablet,delayed 40 mg PO DAILY Gastrointestinal 02/02/25 02/07/25 History
release (Protonix) Issue
ranolazine 1,000 mg 1,000 mg PO BID Heart 02/02/25 02/07/25 History
tablet,extended release,12 hr Disease/Condition
torsemide 20 mg tablet 40 mg PO DAILY Fluid 02/02/25 02/07/25 History
Retention/Swelling
duloxetine 30 mg capsule,delayed 30 mg PO DAILY Mental 02/07/25 02/07/25 History
release Health/Anxiety
gabapentin 300 mg capsule 300 mg PO TID NEUROPATHIC PAIN 02/07/25 02/07/25 History
insulin regular human 100 unit/mL 1 sliding scale dose SC AC Diabetes 02/07/25 02/07/25 History
injection solution (Humulin R
Regular U-100 Insulin)
Review of Systems
-
No chest pain or shortness of breath. Bleeding from the left heel wound.
All other systems: Negative unless noted
Physical Exam
Vital Signs
Vital Signs
Temp Pulse Resp BP Pulse Ox
97.8 F 79 16 149/85 97
02/15/25 07:50 02/15/25 08:50 02/15/25 07:50 02/15/25 08:50 02/15/25 08:14
Lab Results
WBC 9.6 10^3/uL (4.8-10.8) 02/15/25 07:48
RBC 2.62 10^6/uL (4.70-6.10) L 02/15/25 07:48
Hgb 7.2 g/dL (13.0-18.0) L 02/15/25 07:48
Hct 22.6 % (39.0-52.0) L 02/15/25 07:48
Plt Count 480 10^3/uL (130-400) H 02/15/25 07:48
Sodium 136 mmol/L (135-145) 02/15/25 07:48
Potassium 3.9 mmol/L (3.5-5.1) 02/15/25 07:48
Chloride 103 mmol/L (98-107) 02/15/25 07:48
Carbon Dioxide 24 mmol/L (22-30) 02/15/25 07:48
BUN 28 mg/dl (9-20) H 02/15/25 07:48
Creatinine 1.7 mg/dL (0.7-1.3) H 02/15/25 07:48
eGFR 55.27 02/15/25 07:48
Glucose 80 mg/dl (70-99) 02/15/25 07:48
Calcium 8.1 mg/dl (8.4-10.2) L 02/15/25 07:48
Albumin 3.4 g/dl (3.5-5.0) L 02/10/25 06:57
Laboratory Tests
02/12/25 02/14/25 02/15/25
08:01 08:36 07:48
Hgb 8.1 L
Creatinine 1.2
Iron < 20 L
TIBC 189 L
Ferritin 458.0
Urine Occult Blood
Ur Leukocyte Esterase
Urine WBC
Urine Bacteria
Urine Albumin
02/15/25
09:25
Hgb
Creatinine
Iron
TIBC
Ferritin
Urine Occult Blood 3+ A
Ur Leukocyte Esterase 3+ A
Urine WBC 16-20 A
Urine Bacteria Few A
Urine Albumin 3+ A
Laboratory Tests
02/15/25
09:25
Fluid Eosinophils 2% eosinophils seen
Physical Exam
Patient is awake alert oriented and in no distress. Mood and affect were pleasant, insight and judgment were good. Pupils are equal round and reactive to light, extraocular movements are intact, sclera were anicteric. Hearing was normal, ears and
nose are intact. Oropharynx was clear. Neck was supple with trachea midline and no thyromegaly. Heart was regular rate and rhythm without rubs. Lower extremities without edema. Lungs were clear to auscultation bilaterally and with normal
excursion. Abdomen was soft, nontender, with normal active bowel sounds, and no hepatosplenomegaly. Skin was without rash and with normal turgor. Left heel bandaged
Data Reviewed
-
Medical Tests (Nuc Med, Echo etc): Image Personally Visualized and interpreted (EKG 02/14/2025 by my read sinus rhythm)
Labs: Labs Reviewed by me
Old Records: Reviewed
Assessment/Plan
-
Assessment
AMBER
Left heel wound, osteomyelitis
Diabetes mellitus type 1
Anemia, iron deficiency
Heart failure unknown EF
CIDP
GERD
Bladder outlet obstruction, Castillo catheter
Proteinuria
Plan
Quantify proteinuria
IV iron
Antibiotics changed from aminoglycosides
Follow BMP
hold Protonix
Renal ultrasound
Maintain Castillo
Timeline is early for aminoglycoside renal toxicity
[2025-02-15] MEDS: FERRLECIT 110 MG IV (13:21)
--- NOTE | 2025-02-15 14:22 | W.PN.HOSP.TC ---
Today's Communication/Plan
-
Managing AMBER
Antibiotics
Echo
Wound care
Assessment / Plan
Assessment / Plan
Impression:
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
Osteomyelitis of the left hallux status post amputation 01/21/2025 in outside hospital
Acute blood loss anemia requiring transfusion
Complicated UTI
Other conditions
Insulin requiring diabetes.
CAD with stenting
Essential hypertension.
Heart failure with unknown EF, compensated on admission.
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
GERD.
Plan:
Recurrent wound bleeding with acute blood loss anemia.
Appropriate response to transfusion. Continue to follow hemoglobin transfuse if below 7.
Wound care with pressure dressing
Podiatry evaluation noted-no current active bleeding. No overall breakthrough bleeding.
Police Communications Dispatcher did not feel wound is infected.
Blood cultures are negative.
Urine culture with multidrug-resistant organisms
Patient self catheterizes.
DC ceftriaxone. Sensitivity to only gentamicin and tobramycin noted
Will ask infectious disease for input
Complicated UTI in a patient with chronic bladder outlet obstruction requiring self-catheterization.
Urine culture with MDR Enterobacter sensitive to aminoglycosides only.
Started on tobramycin
Given AMBER, antibiotics transition to IV 02/15
Castillo catheter to be placed on 02/14
AMBER
Creatinine rising to 1.7
Castillo catheter placed on 804
Renal/bladder sonogram pending
Urine eosinophils 2% on 02/15, although too early for possible aminoglycoside injury.
Urine protein/creatinine ratio pending
Demadex held on 02/14
IV hydration
Off aminoglycoside
Hold Demadex
Nephrology input appreciated
History of CIDP.
Patient reports generalized fatigue.
Requested neurology evaluation
Input appreciated.
Recommended outpatient follow-up and treatment
Chronic pain likely attributed to above as well as recent surgeries.
Continue duloxetine, Tylenol, gabapentin, hydrocodone.
dc hydromorphone
Cardiovascular.
CAD with prior PCI and stenting.
Essential hypertension
Chronic CHF unknown EF.
Volume status compensated.
LOCATE TECHNICIAN regimen: Coreg, Imdur, Ranexa, Demadex
Echocardiogram
IDDM.
Basal bolus protocol.
Lantus/aspart
Carbohydrate diet
Anticipated Discharge: > 48 hours
Subjective/Interval History
-
Date of Service: February 15, 2025
Objective Data
-
Labs:
Laboratory Results
02/15/25
07:48
WBC 9.6
Hgb 7.2 L
Hct 22.6 L
Plt Count 480 H
Sodium 136
Potassium 3.9
Chloride 103
Carbon Dioxide 24
BUN 28 H
Creatinine 1.7 H
Glucose 80
Calcium 8.1 L
Vital Signs:
Vital Signs
Temp Pulse Resp BP Pulse Ox
97.8 F 79 16 149/85 97
02/15/25 07:50 02/15/25 08:50 02/15/25 07:50 02/15/25 08:50 02/15/25 13:56
I&O
02/14/25 02/15/25 02/16/25
06:59 06:59 06:59
Intake Total 720 / 720 1680 / 1680
Output Total 2250 / 2250 1700 / 1700 700 / 700
Balance -1530 / -1530 -20 / -20 -700 / -700
Physical Exam
-
General: Comfortable and Other (Looks older than stated age)
Respiratory: Non Labored Respirations; Negative Clear to Auscultation or Accessory Resp Muscle Use
Cardiac: Regular Rhythm and S1/S2
GI: Soft, Nontender, Nondistended and Normal Bowel Sounds
Musculoskeletal: Other (Left foot in dressing. Left lateral leg with old bruise noted and scabbing.)
Neuro: Awake, Alert, Oriented and AO x 3
Psych: Calm; Negative Confused
[2025-02-15] MEDS: NORCO 5/325 1 TABLET PO (16:04)
[2025-02-15] MEDS: NOVOLOG FLEXPEN-LOW RESISTANCE 1 UNITS SC (17:37)
[2025-02-15 21:08] LABS: Gentamicin Peak < 0.6 ug/ml
[2025-02-15] MEDS: LIPITOR 80 MG PO (21:55)
[2025-02-15 22:04] LABS: Glucose - Point of Care 188 mg/dl (70-99)
[2025-02-15 22:04] LABS: Glucose - Point of Care 251 mg/dl (70-99)
[2025-02-16] MEDS: NORCO 7.5/325 1 TABLET PO ×5 (01:31→21:09)
[2025-02-16] MEDS: DILAUDID 0.25 MG IV ×3 (02:34→18:38)
[2025-02-16 06:00] VITALS: BMI 31.8
[2025-02-16 07:24] VITALS: BP 171/92
[2025-02-16 08:38] LABS: Glucose - Point of Care 159 mg/dl (70-99)
[2025-02-16] MEDS: CYMBALTA DELAYED RELEASE 30 MG PO (08:39)
[2025-02-16] MEDS: ASPIR LOW (ENTERIC COATED) 81 MG PO (08:39)
[2025-02-16] MEDS: IMDUR (EXTENDED RELEASE) 60 MG PO (08:39)
[2025-02-16] MEDS: NEURONTIN 300 MG PO ×3 (08:39→21:09)
[2025-02-16] MEDS: RANEXA EXTENDED RELEASE 1000 MG PO ×2 (08:39→21:08)
[2025-02-16] MEDS: PROTONIX 40 MG PO (08:40)
[2025-02-16] MEDS: COREG 25 MG PO ×2 (08:40→20:36)
[2025-02-16] MEDS: PLAVIX 75 MG PO (08:40)
[2025-02-16] MEDS: SANTYL OINTMENT 1 APPLIC TOPICAL (08:40)
[2025-02-16] MEDS: COLACE PO ×2 (09:01→20:37)
--- NOTE | 2025-02-16 10:23 | CM ---
Reviewed the chart notes. Tobramycin stopped. Avycaz started. CM continues to be available to patient/family and is monitoring medical plan for needs at discharge.
Plan: Discharge back to [facility] when medically stable.
[2025-02-16] MEDS: NOVOLOG FLEXPEN-LOW RESISTANCE 1 UNITS SC ×3 (10:31→17:26)
[2025-02-16] MEDS: LANTUS 0.3 UNITS SC ×2 (10:31→21:51)
[2025-02-16 11:03] VITALS: BP 157/87
--- NOTE | 2025-02-16 11:15 | W.PN.NEPH.PH ---
Today's Communication / Plan
-
see plan
Assessment/Plan
-
Assessment
AMBER
Left heel wound, osteomyelitis
Diabetes mellitus type 1
Anemia, iron deficiency
Heart failure unknown EF
CIDP
GERD
Bladder outlet obstruction(does SC at home), Brink catheter
Proteinuria
Plan
AMBER-suspect AIN, eosinophil+ve? off Tobramycin 2nd dose on 02/14, hold PPI too
Timeline is early for aminoglycoside renal toxicity
also with albuminuria -Quantify proteinuria
given worsening cr will check serologies, complements
pt reports having AMBER in January cr over 4 and HD was discussed but did not require in one of the [facility]
keep brink for now, non oliguric
renal US shows cystitis and no hydro
wt is up but stable resp status, hold diuretics still
hb stable s/p IV iron
Antibiotics per ID
Follow BMP
adjust meds renally, avoid nephrotoxins
-
-
Date of Service: February 16, 2025
CC / HPI / ROS
-
Chief Complaint:
AMBER
History of Present Illness:
cr up at 2.4, non oliguric with brink
BPs table
wt si up off torsemie
Review of Systems:
no cp or sob
c/o hand edema
known h/o neurogenic bladder and was doing SC at home
no n/v
Labs
-
Labs:
eGFR 55.27 02/15/25 07:48
Albumin 3.4 g/dl (3.5-5.0) L 02/10/25 06:57
Physical Exam
-
Vital Signs:
Vital Signs
Temp Pulse Resp BP Pulse Ox
98.1 F 87 18 157/87 98
02/16/25 07:24 02/16/25 11:03 02/15/25 23:18 02/16/25 11:03 02/16/25 09:00
Cardiovascular:: Regular rate and rhythm
Respiratory:: Bilateral: CTA
Lung Excursion:: Normal
Abdomen:: Nontender and Soft
Extremity Edema:: +1: Left:
Brink Catheter: Yes
Other Findings::
rt BKA, left leg in bandage
[2025-02-16 11:55] LABS: Blood Urea Nitrogen 34 mg/dl (9-20); Calcium 8.4 mg/dl (8.4-10.2); Carbon Dioxide 27 mmol/L (22-30); Chloride 103 mmol/L (98-107); Estimated Creatinine Clearance 57 ml/min; Glucose 126 mg/dl (70-99); Potassium 4.7 mmol/L (3.5-5.1); Sodium 139 mmol/L (135-145); eGFR 36.54
--- NOTE | 2025-02-16 12:44 | W.PN.ID1 ---
Date of Service
Date of Service: February 16, 2025
Today's Communication
Continue Avycaz
Assessment / Plan
# Symptomatic UTI with MDR/Carbapenem- resistant Enterobacter
# Fever -resolved
# Leukocytosis - resolved
# AMBER on day 2 tobramycin -> dc'd
- Blood cx's negative.
- Organism is sensitive to Avycaz
- Continue Avycaz 2.5g IV q8h (d2).
- Follow renal function closely. Unable to draw labs today.
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
Diabetes mellitus
CAD status post PCI
CHF
hx CKD3
Hypertension
Guillain-Potts� syndrome/CIDP, plasma exchange q 2 months
PAD status post right BKA
Left hallux and second toe osteomyelitis status post amputation and debridement of left heel ulcer January 21, 2025
Chief Complaint
-: UTI
Vital Signs / Physical Exam
Vital Signs
Vital Signs
Temp Pulse Resp BP Pulse Ox
98.1 F 87 18 157/87 98
02/16/25 07:24 02/16/25 11:03 02/15/25 23:18 02/16/25 11:03 02/16/25 11:12
Physical Exam
Constitutional: No Acute Distress and Comfortable
Cardiovascular: Regular Rate and S1/S2
Pulmonary: Clear
Gastrointestinal: Soft and Non Tender
Genito-Urinary: Castillo and Clear Urine
Neurological: AO x 3
Objective Data
Lab Data
Lab Results
02/16/25 11:25
Estimated Creat Clear 57 ml/min 02/16/25 11:25
Total Bilirubin 0.4 mg/dl (0.2-1.3) 02/10/25 06:57
AST 14 U/L (17-59) L 02/10/25 06:57
ALT 16 U/L (0-50) 02/10/25 06:57
Alkaline Phosphatase 97 U/L (38-126) 02/10/25 06:57
Most recent labs reviewed.
Micro Results:
02/10/25 17:05 Urine Culture - Final
Urine Enterobacter species
Enterobacter species#2
02/10/25 19:30 Blood Culture - Final
Blood/Venous No Growth - Final Report
02/10/25 18:04 Blood Culture - Final
Blood/Venous No Growth - Final Report
02/08/25 16:16 MRSA Screen - Final
Nose No Methicillin Resistant Staphylococcus aureus isolated.
[2025-02-16 12:47] LABS: Glucose - Point of Care 169 mg/dl (70-99)
[2025-02-16 13:09] LABS: Hematocrit 27.1 % (39.0-52.0); Hemoglobin 8.7 g/dL (13.0-18.0); Mean Corp Hgb Conc. 32.1 g/dL (33.0-37.0); Mean Corpuscular Volume 86.3 fL (80.0-94.0); Nucleated Red Blood Cells % 0 % (-); Platelet Count 554 10^3/uL (130-400); Red Cell Dist. Width 16.7 % (11.5-14.5)
[2025-02-16 15:02] VITALS: BP 134/76
[2025-02-16] MEDS: NORCO 5/325 1 TABLET PO (15:56)
--- NOTE | 2025-02-16 16:41 | W.PN.HOSP.TC ---
Today's Communication/Plan
-
Monitor renal function and urine output.
Maintain Castillo.
Follow serologies.
Continue antibiotics
Assessment / Plan
Assessment / Plan
Impression:
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
Osteomyelitis of the left hallux status post amputation 01/21/2025 in outside hospital
Acute blood loss anemia requiring transfusion
Complicated UTI
Other conditions
Insulin requiring diabetes.
CAD with stenting
Essential hypertension.
Heart failure with unknown EF, compensated on admission.
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
GERD.
Plan:
Recurrent wound bleeding with acute blood loss anemia.
Appropriate response to transfusion. Continue to follow hemoglobin transfuse if below 7.
Wound care with pressure dressing
Podiatry evaluation noted-no current active bleeding. No overall breakthrough bleeding.
Wounds with dry necrotic eschar. Will ask podiatry to reevaluate on 02/16
Complicated UTI in a patient with chronic bladder outlet obstruction requiring self-catheterization.
Urine culture with MDR Enterobacter sensitive to aminoglycosides only.
Started on tobramycin
Given AMBER, antibiotics transition to Avycaz on 02/15
Castillo catheter to be placed on 02/14
AMBER
Possibly AIN. Noted eosinophilia
Nonoliguric
Renal sonogram with no obstruction
Creatinine rising to 2.4
Castillo catheter placed on 804
Renal/bladder sonogram pending
Urine eosinophils 2% on 02/15, although too early for possible aminoglycoside injury.
Urine protein/creatinine ratio pending
Demadex held on 02/14
Off aminoglycoside
Hold Demadex
Nephrology input appreciated
Given rising creatinine glomerulonephritis urology and complement ordered
History of CIDP.
Patient reports generalized fatigue.
Requested neurology evaluation
Input appreciated.
Recommended outpatient follow-up and treatment
Chronic pain likely attributed to above as well as recent surgeries.
Continue duloxetine, Tylenol, gabapentin, hydrocodone.
dc hydromorphone
Cardiovascular.
CAD with prior PCI and stenting.
Essential hypertension
Chronic CHF unknown EF.
Volume status compensated.
BOOM SUPERVISOR regimen: Coreg, Imdur, Ranexa, Demadex
Echocardiogram with preserved biventricular function, no evidence for regional wall motion normalities or valvular dysfunction.
IDDM.
Basal bolus protocol.
Lantus/aspart
Carbohydrate diet
Anticipated Discharge: > 48 hours
Subjective/Interval History
-
Date of Service: February 16, 2025
Objective Data
-
Labs:
Laboratory Results
02/16/25
11:25
WBC 10.7
Hgb 8.7 L D
Hct 27.1 L
Plt Count 554 H
Sodium 139
Potassium 4.7
Chloride 103
Carbon Dioxide 27
BUN 34 H
Creatinine 2.4 H
Glucose 126 H
Calcium 8.4
Vital Signs:
Vital Signs
Temp Pulse Resp BP Pulse Ox
98.0 F 83 16 134/76 95
02/16/25 15:02 02/16/25 15:02 02/16/25 15:02 02/16/25 15:02 02/16/25 15:02
I&O
02/15/25 02/16/25 02/17/25
06:59 06:59 06:59
Intake Total 1680 / 1680 1210 / 1210 782 / 782
Output Total 1700 / 1700 1750 / 1750 500 / 500
Balance -20 / -20 -540 / -540 282 / 282
Physical Exam
-
General: Comfortable and Other (Looks older than stated age)
Respiratory: Non Labored Respirations; Negative Clear to Auscultation or Accessory Resp Muscle Use
Cardiac: Regular Rhythm and S1/S2
GI: Soft, Nontender, Nondistended and Normal Bowel Sounds
Musculoskeletal: Other (Left foot in dressing. Left lateral leg with old bruise noted and scabbing.)
Neuro: Awake, Alert, Oriented and AO x 3
Psych: Calm; Negative Confused
[2025-02-16 17:14] LABS: Glucose - Point of Care 162 mg/dl (70-99)
[2025-02-16] MEDS: ZOFRAN 4 MG IV (17:45)
--- NOTE | 2025-02-16 18:22 | PTCARENOTE ---
Wound care provided to LLE by this RN per wound care orders, patient expressing concern he feels L heel wound has gotten worse over last few days, pic of L heel TT to MD, podiatry reconsulted per MD. Nephro and ID made aware of Cr 2.4 this AM. Per
nephro, keep Castillo in place for AMBER, Castillo order updated to reflect change by this RN.
[2025-02-16] MEDS: LIPITOR 80 MG PO (21:09)
[2025-02-16 21:44] LABS: Glucose - Point of Care 145 mg/dl (70-99)
[2025-02-16 23:12] VITALS: BP 152/83
[2025-02-17] MEDS: NORCO 7.5/325 1 TABLET PO ×4 (01:06→21:47)
[2025-02-17 06:00] VITALS: BMI 31.2
[2025-02-17] MEDS: DILAUDID 0.25 MG IV ×2 (06:25→14:39)
[2025-02-17 07:24] VITALS: BP 155/86
[2025-02-17 08:21] LABS: Hematocrit 30.6 % (39.0-52.0); Hemoglobin 9.7 g/dL (13.0-18.0); Mean Corp Hgb Conc. 31.7 g/dL (33.0-37.0); Mean Corpuscular Volume 86.9 fL (80.0-94.0); Nucleated Red Blood Cells % 0 % (-); Platelet Count 603 10^3/uL (130-400); Red Cell Dist. Width 16.5 % (11.5-14.5)
[2025-02-17] MEDS: NEURONTIN 300 MG PO ×3 (08:58→21:48)
[2025-02-17] MEDS: COREG 25 MG PO ×2 (08:58→19:40)
[2025-02-17] MEDS: IMDUR (EXTENDED RELEASE) 60 MG PO (08:58)
[2025-02-17] MEDS: COLACE 100 MG PO ×2 (08:59→19:40)
[2025-02-17] MEDS: CYMBALTA DELAYED RELEASE 30 MG PO (08:59)
[2025-02-17] MEDS: RANEXA EXTENDED RELEASE 1000 MG PO ×2 (08:59→19:40)
[2025-02-17] MEDS: PLAVIX 75 MG PO (08:59)
[2025-02-17] MEDS: SANTYL OINTMENT 1 APPLIC TOPICAL (08:59)
[2025-02-17] MEDS: ASPIR LOW (ENTERIC COATED) 81 MG PO (08:59)
[2025-02-17 09:05] LABS: Glucose - Point of Care 67 mg/dl (70-99)
[2025-02-17] MEDS: LANTUS 0.3 UNITS SC (09:07)
[2025-02-17] MEDS: NOVOLOG FLEXPEN-LOW RESISTANCE SC ×2 (09:14→12:44)
[2025-02-17 09:27] LABS: Glucose - Point of Care 70 mg/dl (70-99)
[2025-02-17 09:41] LABS: Blood Urea Nitrogen 36 mg/dl (9-20); Calcium 8.4 mg/dl (8.4-10.2); Carbon Dioxide 24 mmol/L (22-30); Chloride 106 mmol/L (98-107); Estimated Creatinine Clearance 47 ml/min; Glucose 55 mg/dl (70-99); Potassium 4.1 mmol/L (3.5-5.1); Sodium 141 mmol/L (135-145); eGFR 29.12
[2025-02-17 10:39] LABS: Glucose - Point of Care 106 mg/dl (70-99)
--- NOTE | 2025-02-17 12:23 | W.PN.NEPH.PH ---
Today's Communication / Plan
-
follow labs and hold diuretic
Assessment/Plan
-
Assessment
AMBER
Left heel wound, osteomyelitis
Diabetes mellitus type 1
Anemia, iron deficiency
Heart failure unknown EF
CIDP
GERD
Bladder outlet obstruction(does SC at home), Brink catheter
Proteinuria
Plan
AMBER-suspect AIN, eosinophil+ve? off Tobramycin 2nd dose on 02/14, hold PPI too
Timeline is early for aminoglycoside renal toxicity
also with albuminuria -3.4gm/gm of cr-check paraprotein w/u too
pending serologies, complements not low
cr cont to increase likely reaching peak, non oliguric with brink
pt reports having AMBER in January cr over 4 and HD was discussed but did not require in one of the [facility]
renal US shows cystitis and no hydro
wt is better and stable resp status, hold diuretics still
hb better s/p IV iron
Antibiotics per ID
Follow BMP
adjust meds renally, avoid nephrotoxins
d/w pt and nursing
records request sent to his old hospital in [place]
-
-
Date of Service: February 17, 2025
CC / HPI / ROS
-
Chief Complaint:
AMBER
History of Present Illness:
cr up at 2.9, non oliguric with brink
BPs table
wt is down off torsemie
Review of Systems:
no cp or sob
c/o hand edema
known h/o neurogenic bladder and was doing SC at home
no n/v
Labs
-
Labs:
WBC 13.7 10^3/uL (4.8-10.8) H 02/17/25 08:11
RBC 3.52 10^6/uL (4.70-6.10) L 02/17/25 08:11
Hgb 9.7 g/dL (13.0-18.0) L 02/17/25 08:11
Hct 30.6 % (39.0-52.0) L 02/17/25 08:11
Plt Count 603 10^3/uL (130-400) H 02/17/25 08:11
Sodium 141 mmol/L (135-145) 02/17/25 08:56
Potassium 4.1 mmol/L (3.5-5.1) 02/17/25 08:56
Chloride 106 mmol/L (98-107) 02/17/25 08:56
Carbon Dioxide 24 mmol/L (22-30) 02/17/25 08:56
BUN 36 mg/dl (9-20) H 02/17/25 08:56
Creatinine 2.9 mg/dL (0.7-1.3) H 02/17/25 08:56
eGFR 29.12 02/17/25 08:56
Glucose 55 mg/dl (70-99) L* 02/17/25 08:56
Calcium 8.4 mg/dl (8.4-10.2) 02/17/25 08:56
Albumin 3.4 g/dl (3.5-5.0) L 02/10/25 06:57
Physical Exam
-
Vital Signs:
Vital Signs
Temp Pulse Resp BP Pulse Ox
97.4 F 87 16 155/86 95
02/17/25 07:24 02/17/25 08:58 02/17/25 07:24 02/17/25 08:58 02/17/25 07:24
Cardiovascular:: Regular rate and rhythm
Respiratory:: Bilateral: CTA
Lung Excursion:: Normal
Abdomen:: Nontender and Soft
Extremity Edema:: +1: Left:
Brink Catheter: Yes
Other Findings::
rt BKA, left leg in bandage
[2025-02-17 12:42] LABS: Glucose - Point of Care 114 mg/dl (70-99)
--- NOTE | 2025-02-17 13:18 | W.PN.POD ---
Today's Communication
Today's Communication
No cellulitis but wound size larger. Generally poor wound healing potential. No acute infection but will continue observation.
Assessment / Plan
-
Impression/plan
Excessive bleeding left medial heel wound
-May be due to combination of antiplatelet treatment, trauma and calcified vessels. Ultrasound performed on last admission showed no significant arterial stenosis
-Wound appears larger but with dry eschar and stable edges. Will other current medical issues, capacity for wound healing even with further debridement, is significantly diminished. No cellulitis present.
-Continue Santyl as a debriding agent. No bleeding from heel ulcer but proximal leg wound and toes with dried blood. Possibly self inflicted.
Right BKA
-Patient states his right prosthesis is back in [place] where he had his last surgery. For this reason, PT is not an option for weight bearing
Symptomatic UTI
-resistant strain of Enterobacter sensitive to Avycaz
IDDM with peripheral neuropathy
CIDP
CAD
CHF
Subjective
Objective
Temp Pulse Resp BP Pulse Ox
97.4 F 87 16 155/86 95
02/17/25 07:24 02/17/25 08:58 02/17/25 07:24 02/17/25 08:58 02/17/25 07:24
02/17/25 08:11
02/17/25 08:56
Vital Signs and Lab results were reviewed.
--- NOTE | 2025-02-17 13:20 | CM ---
Reviewed the chart notes. Patient continues with IV abx. CM continues to be available to patient/family and is monitoring medical plan for needs at discharge.
Plan: Discharge back to [facility] when medically stable.
[2025-02-17 15:59] VITALS: BP 139/81
--- NOTE | 2025-02-17 16:17 | W.PN.ID1 ---
Date of Service
Date of Service: February 17, 2025
Today's Communication
Decrease Avycaz dose
Assessment / Plan
# Symptomatic UTI with MDR/Carbapenem- resistant Enterobacter
# Fever -resolved
# Leukocytosis
# AMBER on day 2 tobramycin -> dc'd
- Blood cx's negative.
- Organism is sensitive to Avycaz
- Renal function continues to decline.
- Decrease dose Avycaz 1.25 g IV q8h (d3) (d4 effective abx)
- Follow wbc and renal function.
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
Diabetes mellitus
CAD status post PCI
CHF
hx CKD3
Hypertension
Guillain-Potts� syndrome/CIDP, plasma exchange q 2 months
PAD status post right BKA
Left hallux and second toe osteomyelitis status post amputation and debridement of left heel ulcer January 21, 2025
Chief Complaint
-: UTI
Subjective / Review of Systems
c/o bladder pressue.
Vital Signs / Physical Exam
Vital Signs
Vital Signs
Temp Pulse Resp BP Pulse Ox
97.4 F 87 16 155/86 95
02/17/25 07:24 02/17/25 08:58 02/17/25 07:24 02/17/25 08:58 02/17/25 07:24
Physical Exam
Constitutional: Chronically Ill
Cardiovascular: Regular Rate and S1/S2
Pulmonary: Clear
Gastrointestinal: Soft, Non Tender and Non Distended
Genito-Urinary: Castillo and Clear Urine
Objective Data
Lab Data
Lab Results
02/17/25 08:11
02/17/25 08:56
Estimated Creat Clear 47 ml/min 02/17/25 08:56
Total Bilirubin 0.4 mg/dl (0.2-1.3) 02/10/25 06:57
AST 14 U/L (17-59) L 02/10/25 06:57
ALT 16 U/L (0-50) 02/10/25 06:57
Alkaline Phosphatase 97 U/L (38-126) 02/10/25 06:57
Most recent labs reviewed.
Micro Results:
02/10/25 17:05 Urine Culture - Final
Urine Enterobacter species
Enterobacter species#2
02/10/25 19:30 Blood Culture - Final
Blood/Venous No Growth - Final Report
02/10/25 18:04 Blood Culture - Final
Blood/Venous No Growth - Final Report
02/08/25 16:16 MRSA Screen - Final
Nose No Methicillin Resistant Staphylococcus aureus isolated.
[2025-02-17 16:52] LABS: Glucose - Point of Care 171 mg/dl (70-99)
[2025-02-17] MEDS: NOVOLOG FLEXPEN-LOW RESISTANCE 1 UNITS SC (17:12)
--- NOTE | 2025-02-17 17:15 | W.PN.HOSP.TC ---
Today's Communication/Plan
-
Hypoglycemic. Reduce insulin dose
Ongoing workup for AMBER
Continue Castillo catheter
Continue antibiotics. Dose being adjusted
Continue wound care
Monitor hemoglobin
Assessment / Plan
Assessment / Plan
Impression:
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
Osteomyelitis of the left hallux status post amputation 01/21/2025 in outside hospital
Acute blood loss anemia requiring transfusion
Complicated UTI
Other conditions
Insulin requiring diabetes.
CAD with stenting
Essential hypertension.
Heart failure with unknown EF, compensated on admission.
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
GERD.
Plan:
Recurrent wound bleeding with acute blood loss anemia.
Appropriate response to transfusion. Continue to follow hemoglobin transfuse if below 7.
Wound care with pressure dressing
Podiatry evaluation noted-no current active bleeding. No overall breakthrough bleeding.
Wounds with dry necrotic eschar. Podiatry reevaluated on 02/17 with so far no indication for additional debridement. Continue wound care
Complicated UTI in a patient with chronic bladder outlet obstruction requiring self-catheterization.
Urine culture with MDR Enterobacter sensitive to aminoglycosides only.
Started on tobramycin
Given AMBER, antibiotics transition to Avycaz on 02/15
Castillo catheter to be placed on 02/14
AMBER
Possibly AIN. Noted eosinophilia
Nonoliguric
Renal sonogram with no obstruction
Creatinine rising to 2.9
Castillo catheter placed on 804
Nonoliguric
Renal/bladder sonogram with no obstruction
Urine eosinophils 2% on 02/15, although too early for possible aminoglycoside injury.
Urine protein/creatinine ratio pending
Demadex held on 02/14
Off aminoglycoside
Nephrology input appreciated
Given rising creatinine glomerulonephritis urology and complement ordered
Patient reports prior history of AMBER with consideration of renal replacement therapy in outside hospital. Medical records requested
History of CIDP.
Patient reports generalized fatigue.
Requested neurology evaluation
Input appreciated.
Recommended outpatient follow-up and treatment
Chronic pain likely attributed to above as well as recent surgeries.
Continue duloxetine, Tylenol, gabapentin, hydrocodone.
dc hydromorphone
Cardiovascular.
CAD with prior PCI and stenting.
Essential hypertension
Chronic CHF unknown EF.
Volume status compensated.
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
Echocardiogram with preserved biventricular function, no evidence for regional wall motion normalities or valvular dysfunction.
IDDM.
With new onset of hypoglycemia on 02/17 possibly related to decreased GFR with AMBER.
Lantus dose reduced from 30 units twice daily to 15 units daily
Follow for recurrent hypoglycemia with serial Accu-Cheks
Monitor oral intake and renal function.
Anticipated Discharge: > 48 hours
Subjective/Interval History
-
Date of Service: February 17, 2025
Objective Data
-
Labs:
Laboratory Results
02/17/25 02/17/25
08:11 08:56
WBC 13.7 H
Hgb 9.7 L
Hct 30.6 L
Plt Count 603 H
Sodium Cancelled 141
Potassium Cancelled 4.1
Chloride Cancelled 106
Carbon Dioxide Cancelled 24
BUN Cancelled 36 H
Creatinine Cancelled 2.9 H
Glucose Cancelled 55 L*
Calcium Cancelled 8.4
Vital Signs:
Vital Signs
Temp Pulse Resp BP Pulse Ox
97.3 F 84 16 139/81 96
02/17/25 15:59 02/17/25 15:59 02/17/25 15:59 02/17/25 15:59 02/17/25 15:59
I&O
02/16/25 02/17/25 02/18/25
06:59 06:59 06:59
Intake Total 1210 / 1210 1364 / 1364
Output Total 1749 / 1749 800 / 800
Balance -540 / -540 -686 / -686 -800 / -800
Physical Exam
-
General: Comfortable and Other (Looks older than stated age)
Respiratory: Non Labored Respirations; Negative Clear to Auscultation or Accessory Resp Muscle Use
Cardiac: Regular Rhythm and S1/S2
GI: Soft, Nontender, Nondistended and Normal Bowel Sounds
Genito-urinary: Castillo
Musculoskeletal: Other (Left foot in dressing. Left lateral leg with old bruise noted and scabbing.)
Neuro: Awake, Alert, Oriented and AO x 3
Psych: Calm; Negative Confused
[2025-02-17] MEDS: LIPITOR 80 MG PO (21:48)
[2025-02-17 21:52] LABS: Glucose - Point of Care 249 mg/dl (70-99)
[2025-02-17 23:18] VITALS: BP 111/63
[2025-02-18 03:14] LABS: Glucose - Point of Care 204 mg/dl (70-99)
[2025-02-18] MEDS: NORCO 7.5/325 1 TABLET PO ×4 (05:51→21:04)
[2025-02-18 06:00] VITALS: BMI 31.2
[2025-02-18 07:50] LABS: Glucose - Point of Care 217 mg/dl (70-99)
[2025-02-18 07:53] VITALS: BP 172/91
[2025-02-18] MEDS: NEURONTIN 300 MG PO ×3 (08:12→21:04)
[2025-02-18] MEDS: COREG 25 MG PO ×2 (08:12→21:04)
[2025-02-18] MEDS: RANEXA EXTENDED RELEASE 1000 MG PO ×2 (08:12→21:05)
[2025-02-18] MEDS: SANTYL OINTMENT 1 APPLIC TOPICAL (08:12)
[2025-02-18] MEDS: ASPIR LOW (ENTERIC COATED) 81 MG PO (08:12)
[2025-02-18] MEDS: CYMBALTA DELAYED RELEASE 30 MG PO (08:13)
[2025-02-18] MEDS: LANTUS 0.15 UNITS SC (08:13)
[2025-02-18] MEDS: COLACE 100 MG PO ×2 (08:13→21:04)
[2025-02-18] MEDS: PLAVIX 75 MG PO (08:13)
[2025-02-18] MEDS: NOVOLOG FLEXPEN-LOW RESISTANCE 2 UNITS SC (08:13)
[2025-02-18] MEDS: IMDUR (EXTENDED RELEASE) 60 MG PO (08:13)
[2025-02-18] MEDS: DILAUDID 0.25 MG IV ×2 (08:15→17:30)
[2025-02-18 08:36] LABS: Blood Urea Nitrogen 37 mg/dl (9-20); Calcium 8.3 mg/dl (8.4-10.2); Carbon Dioxide 29 mmol/L (22-30); Chloride 103 mmol/L (98-107); Estimated Creatinine Clearance 44 ml/min; Glucose 214 mg/dl (70-99); Potassium 4.5 mmol/L (3.5-5.1); Sodium 140 mmol/L (135-145); eGFR 26.88
[2025-02-18] MEDS: NOVOLOG FLEXPEN-LOW RESISTANCE 3 UNITS SC (11:45)
[2025-02-18 12:00] VITALS: BP 165/86
--- NOTE | 2025-02-18 12:26 | W.PN.NEPH.PH ---
Today's Communication / Plan
-
follow BMP
Assessment/Plan
-
Assessment
AMBER
Left heel wound, osteomyelitis
Diabetes mellitus type 1
Anemia, iron deficiency
Heart failure unknown EF
CIDP
GERD
Bladder outlet obstruction(does SC at home), Brink catheter
Proteinuria
Plan
follow BMP
seems to be plateauing
no PPI still
maintain brink until Cr begins to improve
holding diuretics until Cr improves
-
-
Date of Service: February 18, 2025
CC / HPI / ROS
-
Chief Complaint:
AMBER
History of Present Illness:
cr up at 3.1
non oliguric with brink
BPs stable
Review of Systems:
no cp or sob
c/o hand edema unchanged
known h/o neurogenic bladder and was doing SC at home
no n/v
Labs
-
Labs:
WBC 13.7 10^3/uL (4.8-10.8) H 02/17/25 08:11
RBC 3.52 10^6/uL (4.70-6.10) L 02/17/25 08:11
Hgb 9.7 g/dL (13.0-18.0) L 02/17/25 08:11
Hct 30.6 % (39.0-52.0) L 02/17/25 08:11
Plt Count 603 10^3/uL (130-400) H 02/17/25 08:11
Sodium 140 mmol/L (135-145) 02/18/25 07:42
Potassium 4.5 mmol/L (3.5-5.1) 02/18/25 07:42
Chloride 103 mmol/L (98-107) 02/18/25 07:42
Carbon Dioxide 29 mmol/L (22-30) 08/08/25 07:42
BUN 37 mg/dl (9-20) H 02/18/25 07:42
Creatinine 3.1 mg/dL (0.7-1.3) H 02/18/25 07:42
eGFR 26.88 02/18/25 07:42
Glucose 214 mg/dl (70-99) H 02/18/25 07:42
Calcium 8.3 mg/dl (8.4-10.2) L 02/18/25 07:42
Albumin 3.4 g/dl (3.5-5.0) L 02/10/25 06:57
Physical Exam
-
Vital Signs:
Vital Signs
Temp Pulse Resp BP Pulse Ox
97.9 F 91 18 165/86 97
02/18/25 07:53 02/18/25 08:12 02/18/25 07:53 02/18/25 12:00 02/18/25 07:53
Cardiovascular:: Regular rate and rhythm
Respiratory:: Bilateral: Coarse
Lung Excursion:: Normal
Abdomen:: Nontender and Soft
Bowel Sounds:: Normal
Extremity Edema:: +1: Bilateral:
--- NOTE | 2025-02-18 12:28 | W.PN.HOSP.TC ---
Today's Communication/Plan
-
monitor renal function
adjust medications renally
cont abx
nephro, id recs
Assessment / Plan
Assessment / Plan
Impression:
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
Osteomyelitis of the left hallux status post amputation 01/21/2025 in outside hospital
Acute blood loss anemia requiring transfusion
Complicated UTI
Other conditions
Insulin requiring diabetes.
CAD with stenting
Essential hypertension.
Heart failure with unknown EF, compensated on admission.
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
GERD.
Plan:
#Recurrent wound bleeding with acute blood loss anemia.
Appropriate response to transfusion. Continue to follow hemoglobin transfuse if below 7.
Wound care with pressure dressing
Podiatry evaluation noted-no current active bleeding. No overall breakthrough bleeding.
Wounds with dry necrotic eschar. Podiatry reevaluated on 02/17 with so far no indication for additional debridement. Continue wound care
#Complicated UTI in a patient with chronic bladder outlet obstruction requiring self-catheterization.
#Fever, resolved
#leucocytosis
Urine culture with MDR Enterobacter sensitive to aminoglycosides only.
Started on tobramycin - dced with AMBER
Given AMBER, antibiotics transition to Avycaz on 02/15
Castillo catheter to be placed on 02/14
#AMBER
Possibly AIN. Noted eosinophilia
Nonoliguric
Renal sonogram with no obstruction
Creatinine rising to 3.1 today
Castillo catheter placed on 02/14
Nonoliguric
Renal/bladder sonogram with no obstruction
Urine eosinophils 2% on 02/15, although too early for possible aminoglycoside injury.
Demadex held on 02/14
Off aminoglycoside
Nephrology input appreciated
Given rising creatinine glomerulonephritis urology and complement ordered
Patient reports prior history of AMBER with consideration of renal replacement therapy in outside hospital. Medical records requested
#History of CIDP.
Patient reports generalized fatigue.
Requested neurology evaluation
Input appreciated.
Recommended outpatient follow-up and treatment
Chronic pain likely attributed to above as well as recent surgeries.
Continue duloxetine, Tylenol, gabapentin, hydrocodone.
dc hydromorphone
#Cardiovascular.
CAD with prior PCI and stenting.
Essential hypertension
Chronic CHF unknown EF.
Volume status compensated.
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
Echocardiogram with preserved biventricular function, no evidence for regional wall motion normalities or valvular dysfunction.
#IDDM.
With new onset of hypoglycemia on 02/17 possibly related to decreased GFR with AMBER.
Lantus dose reduced from 30 units twice daily to 15 units daily
Follow for recurrent hypoglycemia with serial Accu-Cheks
Monitor oral intake and renal function.
#DVT ppx
-May attempt to start hsq in 24 hours if hgb remains stable; last received unit on 02/15
Anticipated Discharge: > 48 hours
Subjective/Interval History
-
Date of Service: February 18, 2025
no acute events overnight
Objective Data
-
Labs:
Laboratory Results
02/18/25
07:42
Sodium 140
Potassium 4.5
Chloride 103
Carbon Dioxide 29
BUN 37 H
Creatinine 3.1 H
Glucose 214 H
Calcium 8.3 L
Vital Signs:
Vital Signs
Temp Pulse Resp BP Pulse Ox
97.9 F 91 18 165/86 97
02/18/25 07:53 02/18/25 08:12 02/18/25 07:53 02/18/25 12:00 02/18/25 07:53
I&O
02/17/25 02/18/25 02/19/25
06:59 06:59 06:59
Intake Total 1364 / 1364 2416 / 2416
Output Total 2049 1625 / 1625
Balance -686 / -686 791 / 791
Review of Systems
-
History Source: Patient
All other systems: Not reviewed unless documented
Physical Exam
-
General: Comfortable and Other (Looks older than stated age)
Respiratory: Non Labored Respirations; Negative Clear to Auscultation or Accessory Resp Muscle Use
Cardiac: Regular Rhythm and S1/S2
GI: Soft, Nontender, Nondistended and Normal Bowel Sounds
Genito-urinary: Castillo
Musculoskeletal: Other (Left foot in dressing. Left lateral leg with old bruise noted and scabbing.)
Neuro: Awake, Alert, Oriented and AO x 3
Psych: Calm; Negative Confused
Data Reviewed
-
Total Time Spent with Patient (in minutes): 55
Ultrasound: Report Reviewed by me
Labs: Labs Reviewed by me
--- NOTE | 2025-02-18 13:55 | PTCARENOTE ---
BP for AM was 172/91, pain medication administered. Rechecked BP at 165/86, pt still visibly uncomfortable. No new orders at this time.
--- NOTE | 2025-02-18 15:39 | W.PN.ID1 ---
Date of Service
Date of Service: February 18, 2025
Today's Communication
Continue Avycaz 1.25 g IV q8h through 02/20/25
Assessment / Plan
# Symptomatic UTI with MDR/Carbapenem- resistant Enterobacter
# Fever -resolved
# Leukocytosis
# AMBER on day 2 tobramycin -> dc'd
- Blood cx's negative.
- Organism sensitive to Avycaz
- Renal function continues to decline.
-Continue Avycaz 1.25 g IV q8h (d4) (d5 of 7 effective abx) through 02/20/25.
- Follow wbc and renal function.
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
Diabetes mellitus
CAD status post PCI
CHF
hx CKD3
Hypertension
Guillain-Potts� syndrome/CIDP, plasma exchange q 2 months
PAD status post right BKA
Left hallux and second toe osteomyelitis status post amputation and debridement of left heel ulcer January 21, 2025
Chief Complaint
-: UTI
Subjective / Review of Systems
No new complaints.
Vital Signs / Physical Exam
Vital Signs
Vital Signs
Temp Pulse Resp BP Pulse Ox
97.9 F 91 18 165/86 97
02/18/25 07:53 02/18/25 08:12 02/18/25 07:53 02/18/25 12:00 02/18/25 14:39
Physical Exam
Constitutional: Chronically Ill
Cardiovascular: Regular Rate and S1/S2
Pulmonary: Clear
Gastrointestinal: Soft, Non Tender and Non Distended
Genito-Urinary: Castillo and Clear Urine
Objective Data
Lab Data
Lab Results
02/17/25 08:11
02/18/25 07:42
Estimated Creat Clear 44 ml/min 02/18/25 07:42
Total Bilirubin 0.4 mg/dl (0.2-1.3) 02/10/25 06:57
AST 14 U/L (17-59) L 02/10/25 06:57
ALT 16 U/L (0-50) 02/10/25 06:57
Alkaline Phosphatase 97 U/L (38-126) 02/10/25 06:57
Most recent labs reviewed.
Micro Results:
02/10/25 17:05 Urine Culture - Final
Urine Enterobacter species
Enterobacter species#2
02/10/25 19:30 Blood Culture - Final
Blood/Venous No Growth - Final Report
02/10/25 18:04 Blood Culture - Final
Blood/Venous No Growth - Final Report
02/08/25 16:16 MRSA Screen - Final
Nose No Methicillin Resistant Staphylococcus aureus isolated.
[2025-02-18 15:51] VITALS: BP 142/84
[2025-02-18] MEDS: NOVOLOG FLEXPEN-LOW RESISTANCE 4 UNITS SC (17:08)
[2025-02-18] MEDS: LIPITOR 80 MG PO (21:04)
[2025-02-18 21:18] LABS: Glucose - Point of Care 339 mg/dl (70-99)
[2025-02-18] MEDS: NOVOLOG FLEXPEN 4 UNITS SC (21:48)
[2025-02-18 23:03] VITALS: BP 151/81
[2025-02-19 00:10] LABS: Glucose - Point of Care 330 mg/dl (70-99)
[2025-02-19] MEDS: NOVOLOG FLEXPEN 5 UNITS SC ×2 (00:41→22:39)
[2025-02-19] MEDS: NORCO 7.5/325 1 TABLET PO ×3 (01:06→22:53)
[2025-02-19 03:26] LABS: Glucose - Point of Care 298 mg/dl (70-99)
[2025-02-19] MEDS: DILAUDID 0.25 MG IV ×2 (03:51→12:34)
[2025-02-19 04:05] LABS: ANA, IgG Reflex to HEp-2 None Detected (None Detected)
[2025-02-19 06:00] VITALS: BMI 33.1
[2025-02-19 07:45] VITALS: BP 165/92
[2025-02-19 08:11] LABS: Glucose - Point of Care 313 mg/dl (70-99)
[2025-02-19] MEDS: SANTYL OINTMENT 1 APPLIC TOPICAL (08:33)
[2025-02-19] MEDS: CYMBALTA DELAYED RELEASE 30 MG PO (08:34)
[2025-02-19] MEDS: RANEXA EXTENDED RELEASE 1000 MG PO ×2 (08:34→20:23)
[2025-02-19] MEDS: IMDUR (EXTENDED RELEASE) 60 MG PO (08:34)
[2025-02-19] MEDS: COLACE 100 MG PO ×2 (08:34→20:23)
[2025-02-19] MEDS: ASPIR LOW (ENTERIC COATED) 81 MG PO (08:34)
[2025-02-19] MEDS: PLAVIX 75 MG PO (08:34)
[2025-02-19] MEDS: NEURONTIN 300 MG PO ×3 (08:34→22:18)
[2025-02-19] MEDS: LANTUS 0.15 UNITS SC ×2 (08:35→22:15)
[2025-02-19] MEDS: COREG 25 MG PO ×2 (08:35→20:24)
[2025-02-19] MEDS: NOVOLOG FLEXPEN-LOW RESISTANCE 4 UNITS SC ×2 (08:36→12:18)
[2025-02-19 09:48] LABS: Hematocrit 27.5 % (39.0-52.0); Hemoglobin 8.9 g/dL (13.0-18.0); Mean Corp Hgb Conc. 32.4 g/dL (33.0-37.0); Mean Corpuscular Volume 86.2 fL (80.0-94.0); Platelet Count 549 10^3/uL (130-400); Red Cell Dist. Width 16.6 % (11.5-14.5)
--- NOTE | 2025-02-19 11:01 | W.PN.HOSP.TC ---
Today's Communication/Plan
-
CW IV Avycaz
Follow creatinine
Continue with wound care
Assessment / Plan
Assessment / Plan
Impression:
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
Osteomyelitis of the left hallux status post amputation 01/21/2025 in outside hospital
Acute blood loss anemia requiring transfusion
Complicated UTI
AMBER
Other conditions
Insulin requiring diabetes.
CAD with stenting
Essential hypertension.
Heart failure with unknown EF, compensated on admission.
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
GERD.
Plan:
#Recurrent wound bleeding with acute blood loss anemia.
Appropriate response to transfusion. Continue to follow hemoglobin transfuse if below 7.
Wound care with pressure dressing
Podiatry evaluation noted-no current active bleeding. No overall breakthrough bleeding.
Wounds with dry necrotic eschar. Podiatry reevaluated on 02/17 with so far no indication for additional debridement. Continue wound care
#Complicated UTI in a patient with chronic bladder outlet obstruction requiring self-catheterization.
#Fever, resolved
#leucocytosis
Urine culture with MDR Enterobacter sensitive to aminoglycosides only.
Started on tobramycin - dced with AMBER
Given AMBER, antibiotics transition to Avycaz on 02/15
Castillo catheter to be placed on 02/14
#AMBER
Possibly AIN. Noted eosinophilia
Nonoliguric
Renal sonogram with no obstruction
Creatinine rising to 3.1 02/19 , labs pending from today
Castillo catheter placed on 02/14
Nonoliguric
Renal/bladder sonogram with no obstruction
Urine eosinophils 2% on 02/15, although too early for possible aminoglycoside injury.
Demadex held on 02/14
Off aminoglycoside
Nephrology input appreciated
Given rising creatinine glomerulonephritis urology and complement ordered- they are high
Patient reports prior history of AMBER with consideration of renal replacement therapy in outside hospital. Medical records requested
#History of CIDP.
Patient reports generalized fatigue.
Requested neurology evaluation
Input appreciated.
Recommended outpatient follow-up and treatment
Chronic pain likely attributed to above as well as recent surgeries.
Continue duloxetine, Tylenol, gabapentin, hydrocodone.
dc hydromorphone
#Cardiovascular.
CAD with prior PCI and stenting.
Essential hypertension
Chronic CHF unknown EF.
Volume status compensated.
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
Echocardiogram with preserved biventricular function, no evidence for regional wall motion normalities or valvular dysfunction.
#IDDM.
With new onset of hypoglycemia on 02/17 possibly related to decreased GFR with AMBER.
Lantus dose reduced from 30 units twice daily to 15 units daily
Follow for recurrent hypoglycemia with serial Accu-Cheks
Monitor oral intake and renal function.
#DVT ppx
-Start sq heparin
Anticipated Discharge: > 48 hours
Subjective/Interval History
-
Date of Service: February 19, 2025
Voicing no specific complaints.
Denies any shortness of breath or chest pain. No nausea vomiting. Denies fever chills.
Objective Data
-
Labs:
Laboratory Results
02/19/25 02/19/25
09:17 10:32
WBC 9.8
Hgb 8.9 L
Hct 27.5 L
Plt Count 549 H
Sodium Cancelled Pending
Potassium Cancelled Pending
Chloride Cancelled Pending
Carbon Dioxide Cancelled Pending
BUN Cancelled Pending
Creatinine Cancelled Pending
Glucose Cancelled Pending
Calcium Cancelled Pending
Total Bilirubin Cancelled Pending
AST Cancelled Pending
ALT Cancelled Pending
Alkaline Phosphatase Cancelled Pending
Vital Signs:
Vital Signs
Temp Pulse Resp BP Pulse Ox
98.3 F 87 18 165/92 97
02/19/25 07:45 02/19/25 08:35 02/19/25 07:45 02/19/25 08:35 02/19/25 08:53
I&O
02/18/25 02/19/25 02/20/25
06:59 06:59 06:59
Intake Total 2416 / 2416 2316 / 2316
Output Total 1625 / 1625 3400 / 3400
Balance 791 / 791 -1084 / -1084
Physical Exam
-
General: Comfortable
Respiratory: Non Labored Respirations; Negative Accessory Resp Muscle Use
Cardiac: Regular Rhythm and S1/S2
GI: Soft
Neuro: AO x 3
Psych: Calm
Data Reviewed
-
Labs: Labs Reviewed by me
[2025-02-19 11:10] LABS: ALT (SGPT) 10 U/L (0-50); AST (SGOT) 15 U/L (17-59); Albumin 3.3 g/dl (3.5-5.0); Alkaline Phosphatase 98 U/L (38-126); Blood Urea Nitrogen 30 mg/dl (9-20); Calcium 8.4 mg/dl (8.4-10.2); Carbon Dioxide 30 mmol/L (22-30); Chloride 103 mmol/L (98-107); Estimated Creatinine Clearance 62 ml/min; Glucose 339 mg/dl (70-99); Potassium 4.8 mmol/L (3.5-5.1); Sodium 139 mmol/L (135-145); Total Protein 6.7 g/dl (6.3-8.2); eGFR 40.56
[2025-02-19 11:25] LABS: Glucose - Point of Care 340 mg/dl (70-99)
--- NOTE | 2025-02-19 13:18 | W.PN.ID1 ---
Date of Service
Date of Service: February 19, 2025
Today's Communication
Tomorrow last day of Avycaz.
ID will sign off.
Assessment / Plan
# Symptomatic UTI with MDR/Carbapenem- resistant Enterobacter
# Fever -resolved
# Leukocytosis - resolved
# AMBER on day 2 tobramycin -> dc'd
- Blood cx's negative.
- Organism sensitive to Avycaz
- Renal function improving.
- Increase Avycaz 2.5 g IV q8h through 02/20/25 @ 1400 dose. (7 days total appropriate abx.
- Continue contact precaution
ID will sign off.
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
Diabetes mellitus
CAD status post PCI
CHF
hx CKD3
Hypertension
Guillain-Potts� syndrome/CIDP, plasma exchange q 2 months
PAD status post right BKA
Left hallux and second toe osteomyelitis status post amputation and debridement of left heel ulcer January 21, 2025
Chief Complaint
-: UTI
Subjective / Review of Systems
no new complaints
Vital Signs / Physical Exam
Vital Signs
Vital Signs
Temp Pulse Resp BP Pulse Ox
98.3 F 87 18 165/92 97
02/19/25 07:45 02/19/25 08:35 02/19/25 07:45 02/19/25 08:35 02/19/25 08:53
Physical Exam
Constitutional: Chronically Ill
Cardiovascular: Regular Rate and S1/S2
Pulmonary: Clear
Gastrointestinal: Soft, Non Tender and Non Distended
Genito-Urinary: Castillo and Clear Urine
Wound: Other (left foot dressing dry)
Objective Data
Lab Data
Lab Results
02/19/25 09:17
02/19/25 10:32
Estimated Creat Clear 62 ml/min 02/19/25 10:32
Total Bilirubin 0.4 mg/dl (0.2-1.3) 02/19/25 10:32
AST 15 U/L (17-59) L 02/19/25 10:32
ALT 10 U/L (0-50) 02/19/25 10:32
Alkaline Phosphatase 98 U/L (38-126) 02/19/25 10:32
Most recent labs reviewed.
Micro Results:
02/10/25 17:05 Urine Culture - Final
Urine Enterobacter species
Enterobacter species#2
02/10/25 19:30 Blood Culture - Final
Blood/Venous No Growth - Final Report
02/10/25 18:04 Blood Culture - Final
Blood/Venous No Growth - Final Report
02/08/25 16:16 MRSA Screen - Final
Nose No Methicillin Resistant Staphylococcus aureus isolated.
[2025-02-19 13:34] LABS: Serine Protease-3, IgG 1 AU/mL (0-19)
--- NOTE | 2025-02-19 13:43 | W.PN.NEPH.PH ---
Today's Communication / Plan
-
follow BMP
Assessment/Plan
-
Assessment
AMBER
Left heel wound, osteomyelitis
Diabetes mellitus type 1
Anemia, iron deficiency
Heart failure unknown EF
CIDP
GERD
Bladder outlet obstruction(does SC at home), Brink catheter
Proteinuria
Plan
follow BMP
if cr lower tomorrow, voiding trial
no PPI still
holding diuretics today
-
-
Date of Service: February 19, 2025
CC / HPI / ROS
-
Chief Complaint:
AMBER
History of Present Illness:
AMBER/Cr down to 2.2
non oliguric with brink
BPs stable
Review of Systems:
no cp or sob
c/o hand edema unchanged
known h/o neurogenic bladder and was doing CIC at home
no n/v
Labs
-
Labs:
WBC 9.8 10^3/uL (4.8-10.8) 02/19/25 09:17
RBC 3.19 10^6/uL (4.70-6.10) L 02/19/25 09:17
Hgb 8.9 g/dL (13.0-18.0) L 02/19/25 09:17
Hct 27.5 % (39.0-52.0) L 02/19/25 09:17
Plt Count 549 10^3/uL (130-400) H 02/19/25 09:17
Sodium 139 mmol/L (135-145) 02/19/25 10:32
Potassium 4.8 mmol/L (3.5-5.1) 02/19/25 10:32
Chloride 103 mmol/L (98-107) 02/19/25 10:32
Carbon Dioxide 30 mmol/L (22-30) 02/19/25 10:32
BUN 30 mg/dl (9-20) H 02/19/25 10:32
Creatinine 2.2 mg/dL (0.7-1.3) H 02/19/25 10:32
eGFR 40.56 02/19/25 10:32
Glucose 339 mg/dl (70-99) H 02/19/25 10:32
Calcium 8.4 mg/dl (8.4-10.2) 02/19/25 10:32
Albumin 3.3 g/dl (3.5-5.0) L 02/19/25 10:32
Physical Exam
-
Vital Signs:
Vital Signs
Temp Pulse Resp BP Pulse Ox
98.3 F 87 18 165/92 97
02/19/25 07:45 02/19/25 08:35 02/19/25 07:45 02/19/25 08:35 02/19/25 08:53
Cardiovascular:: Regular rate and rhythm
Respiratory:: Bilateral: CTA
Lung Excursion:: Normal
Abdomen:: Nontender and Soft
Bowel Sounds:: Normal
Extremity Edema:: +1: Bilateral:
[2025-02-19 15:50] VITALS: BP 122/65
[2025-02-19 16:18] LABS: Glucose - Point of Care 360 mg/dl (70-99)
[2025-02-19] MEDS: NOVOLOG FLEXPEN-LOW RESISTANCE 5 UNITS SC (16:51)
[2025-02-19] MEDS: HEPARIN 5000 UNITS SC (20:23)
[2025-02-19 21:38] LABS: Glucose - Point of Care 336 mg/dl (70-99)
[2025-02-19] MEDS: LIPITOR 80 MG PO (22:18)
[2025-02-19] MEDS: NOVOLOG FLEXPEN-LOW RESISTANCE SC (22:49)
[2025-02-19 23:42] VITALS: BP 155/88
[2025-02-20 00:24] LABS: Glucose - Point of Care 321 mg/dl (70-99)
[2025-02-20] MEDS: NOVOLOG FLEXPEN 6 UNITS SC (00:57)
[2025-02-20] MEDS: DILAUDID 0.25 MG IV ×4 (01:02→22:59)
[2025-02-20 02:25] VITALS: BMI 31.2
[2025-02-20 03:24] LABS: Glucose - Point of Care 306 mg/dl (70-99)
[2025-02-20] MEDS: NOVOLOG FLEXPEN 10 UNITS SC (03:41)
[2025-02-20 05:07] LABS: Glucose - Point of Care 279 mg/dl (70-99)
[2025-02-20] MEDS: NORCO 7.5/325 1 TABLET PO ×3 (05:18→18:45)
[2025-02-20 06:00] VITALS: BMI 32.7
[2025-02-20 07:37] LABS: Glucose - Point of Care 194 mg/dl (70-99)
[2025-02-20 07:40] VITALS: BP 162/56
[2025-02-20] MEDS: CYMBALTA DELAYED RELEASE 30 MG PO (07:41)
[2025-02-20] MEDS: PLAVIX 75 MG PO (07:41)
[2025-02-20] MEDS: NEURONTIN 300 MG PO ×3 (07:41→23:02)
[2025-02-20] MEDS: RANEXA EXTENDED RELEASE 1000 MG PO ×2 (07:41→21:21)
[2025-02-20] MEDS: SANTYL OINTMENT 1 APPLIC TOPICAL (07:41)
[2025-02-20] MEDS: IMDUR (EXTENDED RELEASE) 60 MG PO (07:41)
[2025-02-20] MEDS: COLACE PO (07:41)
[2025-02-20] MEDS: ASPIR LOW (ENTERIC COATED) 81 MG PO (07:41)
[2025-02-20] MEDS: NOVOLOG FLEXPEN-LOW RESISTANCE 1 UNITS SC (07:42)
[2025-02-20] MEDS: LANTUS 0.15 UNITS SC ×2 (07:42→21:15)
[2025-02-20] MEDS: HEPARIN 5000 UNITS SC (07:43)
[2025-02-20] MEDS: COREG 25 MG PO ×2 (07:44→20:55)
[2025-02-20 08:37] LABS: Hematocrit 27.7 % (39.0-52.0); Hemoglobin 8.8 g/dL (13.0-18.0); Mean Corp Hgb Conc. 31.8 g/dL (33.0-37.0); Mean Corpuscular Volume 87.4 fL (80.0-94.0); Platelet Count 544 10^3/uL (130-400); Red Cell Dist. Width 16.5 % (11.5-14.5)
[2025-02-20 08:57] LABS: Blood Urea Nitrogen 24 mg/dl (9-20); Calcium 8.6 mg/dl (8.4-10.2); Carbon Dioxide 29 mmol/L (22-30); Chloride 102 mmol/L (98-107); Estimated Creatinine Clearance 77 ml/min; Glucose 226 mg/dl (70-99); Potassium 4.4 mmol/L (3.5-5.1); Sodium 138 mmol/L (135-145); eGFR 51.61
[2025-02-20 11:10] LABS: Glucose - Point of Care 310 mg/dl (70-99)
[2025-02-20] MEDS: NOVOLOG FLEXPEN-LOW RESISTANCE 4 UNITS SC ×2 (11:51→16:39)
--- NOTE | 2025-02-20 11:55 | W.PN.HOSP.TC ---
Today's Communication/Plan
-
voiding trial
continue Avycaz per ID
follow neph recs
Assessment / Plan
Assessment / Plan
Impression:
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
Osteomyelitis of the left hallux status post amputation 01/21/2025 in outside hospital
Acute blood loss anemia requiring transfusion
Complicated UTI
AMBER
Other conditions
Insulin requiring diabetes.
CAD with stenting
Essential hypertension.
Heart failure with unknown EF, compensated on admission.
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
GERD.
Plan:
#Recurrent wound bleeding with acute blood loss anemia.
Appropriate response to transfusion. Continue to follow hemoglobin transfuse if below 7.
Wound care with pressure dressing
Podiatry evaluation noted-no current active bleeding. No overall breakthrough bleeding.
Wounds with dry necrotic eschar. Podiatry reevaluated on 02/17 with so far no indication for additional debridement. Continue wound care
#Complicated UTI in a patient with chronic bladder outlet obstruction requiring self-catheterization.
#Fever, resolved
#leucocytosis
Urine culture with MDR Enterobacter sensitive to aminoglycosides only.
Started on tobramycin - dced with AMBER
Given AMBER, antibiotics transition to Avycaz on 02/15 per ID recs
Castillo catheter to be placed on 02/14
#AMBER
Possibly AIN. Noted eosinophilia
Nonoliguric
Renal sonogram with no obstruction
Creatinine rising to 3.1 02/19 , labs pending from today
Castillo catheter placed on 02/14
Nonoliguric
Renal/bladder sonogram with no obstruction
Urine eosinophils 2% on 02/15, although too early for possible aminoglycoside injury.
Demadex held on 02/14
Off aminoglycoside
Nephrology input appreciated
Given rising creatinine glomerulonephritis urology and complement ordered- they are high
Patient reports prior history of AMBER with consideration of renal replacement therapy in outside hospital. Medical records requested
#History of CIDP.
Patient reports generalized fatigue.
Requested neurology evaluation
Input appreciated.
Recommended outpatient follow-up and treatment
Chronic pain likely attributed to above as well as recent surgeries.
Continue duloxetine, Tylenol, gabapentin, hydrocodone.
dc hydromorphone
#Cardiovascular.
CAD with prior PCI and stenting.
Essential hypertension
Chronic CHF unknown EF.
Volume status compensated.
GLOBAL COORDINATOR regimen: Coreg, Imdur, Ranexa, Demadex
Echocardiogram with preserved biventricular function, no evidence for regional wall motion normalities or valvular dysfunction.
#IDDM.
With new onset of hypoglycemia on 02/17 possibly related to decreased GFR with AMBER.
Lantus dose reduced from 30 units twice daily to 15 units daily
Follow for recurrent hypoglycemia with serial Accu-Cheks
Monitor oral intake and renal function.
#DVT ppx
-Start sq heparin
Anticipated Discharge: 24 - 48 hours
Subjective/Interval History
-
Date of Service: February 20, 2025
Seen and examined. No new complaints. No acute overnight events.
Still has Castillo in place
Objective Data
-
Labs:
Laboratory Results
02/20/25 02/20/25 02/20/25
05:50 07:53 08:29
WBC Cancelled Cancelled 12.1 H
Hgb Cancelled Cancelled 8.8 L
Hct Cancelled Cancelled 27.7 L
Plt Count Cancelled Cancelled 544 H
Sodium Cancelled Cancelled 138
Potassium Cancelled Cancelled 4.4
Chloride Cancelled Cancelled 102
Carbon Dioxide Cancelled Cancelled 29
BUN Cancelled Cancelled 24 H
Creatinine Cancelled Cancelled 1.8 H
Glucose Cancelled Cancelled 226 H
Calcium Cancelled Cancelled 8.6
Vital Signs:
Vital Signs
Temp Pulse Resp BP Pulse Ox
98.2 F 89 16 162/56 98
02/20/25 07:40 02/20/25 07:40 02/20/25 07:40 02/20/25 07:40 02/20/25 07:40
I&O
02/19/25 02/20/25 02/21/25
06:59 06:59 06:59
Intake Total 2316 / 2316 1622 / 1622
Output Total 3400 / 3400 4295 / 4295
Balance -1084 / -1084 -2673 / -2673
Physical Exam
-
General: Well Developed and Well Nourished
HEENT: Normocephalic and Atraumatic
Respiratory: Clear to Auscultation
Cardiac: Regular Rhythm and S1/S2
GI: Soft, Nontender, Nondistended and Normal Bowel Sounds
Genito-urinary: Clear Urine and Castillo
Musculoskeletal: No Clubbing, No Cyanosis and No Edema
Skin: Warm and Dry
Neuro: Awake, Alert and AO x 3
Psych: Calm
--- NOTE | 2025-02-20 11:56 | W.PN.NEPH.PH ---
Today's Communication / Plan
-
VT
Assessment/Plan
-
Assessment
AMBER
Left heel wound, osteomyelitis
Diabetes mellitus type 1
Anemia, iron deficiency
Heart failure unknown EF
CIDP
GERD
Bladder outlet obstruction(does SC at home), Brink catheter
Proteinuria
Plan
follow BMP
voiding trial
no PPI still
holding diuretics today
may use diuretics tomorrow if Cr improving
-
-
Date of Service: February 20, 2025
CC / HPI / ROS
-
Chief Complaint:
AMBER
History of Present Illness:
AMBER/Cr down to 1.8
non oliguric with brink
BPs stable
Review of Systems:
no cp or sob
c/o hand edema unchanged
known h/o neurogenic bladder and was doing CIC at home
no n/v
Labs
-
Labs:
WBC 12.1 10^3/uL (4.8-10.8) H 02/20/25 08:29
RBC 3.17 10^6/uL (4.70-6.10) L 02/20/25 08:29
Hgb 8.8 g/dL (13.0-18.0) L 02/20/25 08:29
Hct 27.7 % (39.0-52.0) L 02/20/25 08:29
Plt Count 544 10^3/uL (130-400) H 02/20/25 08:29
Sodium 138 mmol/L (135-145) 02/20/25 08:29
Potassium 4.4 mmol/L (3.5-5.1) 02/20/25 08:29
Chloride 102 mmol/L (98-107) 02/20/25 08:29
Carbon Dioxide 29 mmol/L (22-30) 02/20/25 08:29
BUN 24 mg/dl (9-20) H 02/20/25 08:29
Creatinine 1.8 mg/dL (0.7-1.3) H 02/20/25 08:29
eGFR 51.61 02/20/25 08:29
Glucose 226 mg/dl (70-99) H 02/20/25 08:29
Calcium 8.6 mg/dl (8.4-10.2) 02/20/25 08:29
Albumin 3.3 g/dl (3.5-5.0) L 02/19/25 10:32
Physical Exam
-
Vital Signs:
Vital Signs
Temp Pulse Resp BP Pulse Ox
98.2 F 89 16 162/56 98
02/20/25 07:40 02/20/25 07:40 02/20/25 07:40 02/20/25 07:40 02/20/25 07:40
Cardiovascular:: Regular rate and rhythm
Lung Excursion:: Normal
Abdomen:: Nontender and Soft
Bowel Sounds:: Normal
Extremity Edema:: +1: Bilateral:
--- NOTE | 2025-02-20 12:38 | PTCARENOTE ---
brink catheter taken out at 1230. pt due to void by 1830. wound care completed by RN. prn pain medications given per parameters. see MAR for proper documentation.
--- NOTE | 2025-02-20 13:00 | PTCARENOTE ---
Patient encouraged multiple times to brush teeth and wash hands & face. Patient states, 'I get washed up and brush my teeth before bed, not now.'
[2025-02-20 15:30] VITALS: BP 162/89
[2025-02-20 16:28] LABS: Glucose - Point of Care 316 mg/dl (70-99)
--- NOTE | 2025-02-20 18:15 | PTCARENOTE ---
at 1730 nurse called into patients room to copious amounts of sanguineous drainage on pillow and covidien. Podiatry and hospitalist sent picture. pressure held on suture site for 15-20 minutes. Per Podiatry, tight wrap, elevate, and ice top of foot.
[2025-02-20] MEDS: HEPARIN SC (19:19)
[2025-02-20] MEDS: COLACE 100 MG PO (20:55)
[2025-02-20 21:21] LABS: Glucose - Point of Care 339 mg/dl (70-99)
[2025-02-20] MEDS: LIPITOR 80 MG PO (23:02)
[2025-02-20 23:14] VITALS: BP 160/98
[2025-02-21] MEDS: NORCO 7.5/325 1 TABLET PO ×4 (00:18→17:57)
[2025-02-21 01:23] LABS: 24 Hour Urine Total Volume Random mL; Urine Collection Length Random hr
[2025-02-21] MEDS: DILAUDID 0.25 MG IV ×2 (03:13→11:25)
--- NOTE | 2025-02-21 03:17 | W.PN.UPDATE ---
Update Note
Progress Note Update
Patient with continued elevated glucose levels > 300. Changed to moderate dose SS coverage. Increased long acting insulin coverage, resumed home AM dose @ Lantus 30 units SC, continued lower HS dose @ Lantus 15 units SC. Continue to trend glucose
levels and adjust coverage as needed.
[2025-02-21 05:37] VITALS: BMI 33.4
[2025-02-21 08:12] VITALS: BP 168/101
[2025-02-21 08:12] LABS: Glucose - Point of Care 283 mg/dl (70-99)
[2025-02-21 08:15] VITALS: BP 176/94
[2025-02-21] MEDS: RANEXA EXTENDED RELEASE 1000 MG PO ×2 (08:15→21:04)
[2025-02-21] MEDS: CYMBALTA DELAYED RELEASE 30 MG PO (08:15)
[2025-02-21 08:16] LABS: Hematocrit 25.9 % (39.0-52.0); Hemoglobin 8.3 g/dL (13.0-18.0); Mean Corp Hgb Conc. 32.0 g/dL (33.0-37.0); Mean Corpuscular Volume 86.6 fL (80.0-94.0); Platelet Count 530 10^3/uL (130-400); Red Cell Dist. Width 16.5 % (11.5-14.5)
[2025-02-21] MEDS: PLAVIX PO (08:16)
[2025-02-21] MEDS: HEPARIN SC ×2 (08:16→21:04)
[2025-02-21] MEDS: ASPIR LOW (ENTERIC COATED) PO (08:16)
[2025-02-21] MEDS: SANTYL OINTMENT 1 APPLIC TOPICAL (08:16)
[2025-02-21] MEDS: NEURONTIN 300 MG PO ×2 (08:16→16:41)
[2025-02-21] MEDS: COLACE PO (08:17)
[2025-02-21] MEDS: IMDUR (EXTENDED RELEASE) 60 MG PO (08:17)
[2025-02-21] MEDS: COREG 25 MG PO ×2 (08:17→21:16)
[2025-02-21] MEDS: LANTUS 0.3 UNITS SC (08:18)
[2025-02-21] MEDS: NOVOLOG FLEXPEN-MODERATE RESISTANCE 5 UNITS SC (08:18)
[2025-02-21 08:43] LABS: Blood Urea Nitrogen 19 mg/dl (9-20); Calcium 8.9 mg/dl (8.4-10.2); Carbon Dioxide 29 mmol/L (22-30); Chloride 103 mmol/L (98-107); Estimated Creatinine Clearance 94 ml/min; Glucose 282 mg/dl (70-99); Potassium 4.4 mmol/L (3.5-5.1); Sodium 137 mmol/L (135-145); eGFR > 60.00
[2025-02-21 08:57] LABS: Glucose - Point of Care 259 mg/dl (70-99)
[2025-02-21 08:58] LABS: Glucose - Point of Care 308 mg/dl (70-99)
--- NOTE | 2025-02-21 09:45 | W.PN.UPDATE ---
Update Note
Progress Note Update
Asked to see patient due to left foot active bleeding last night. Sudden onset yesterday early evening and according to patient with no trauma. Pictures shown last night showed active bleeding at the distal site but not the medial heel. After
pressure applied by nursing staff, dressing now appears dry on the outer andriy bandage as well as gauze. Bleed through possibly due to sq heparin dose and once held, hemostasis achieved. Continue Plavix and ASA as per cardiology.
[2025-02-21 10:10] VITALS: BP 147/84
--- NOTE | 2025-02-21 11:05 | CM ---
Reviewed the chart notes. CM continues to be available to patient/family and is monitoring medical plan for needs at discharge.
Plan: Discharge back to [facility] when medically stable.
Report: [phone]
[2025-02-21 11:39] LABS: Glucose - Point of Care 321 mg/dl (70-99)
--- NOTE | 2025-02-21 11:42 | W.PN.NEPH.PH ---
Today's Communication / Plan
-
Reinitiate torsemide
Patient stable for discharge from renal perspective
Assessment/Plan
-
Assessment
AMBER
Left heel wound, osteomyelitis
Diabetes mellitus type 1
Anemia, iron deficiency
Heart failure unknown EF
CIDP
GERD
Bladder outlet obstruction(does SC at home), Castillo catheter
Proteinuria
Plan
follow BMP
voiding trial was completed
creatinine down to 1.5
no PPI still
Reinitiate torsemide at discharge today
Can have follow-up BMP at end of week
Patient is stable for discharge from renal perspective
-
-
Date of Service: February 21, 2025
CC / HPI / ROS
-
Chief Complaint:
AMBER
History of Present Illness:
AMBER/Cr down to 1.5
BPs stable
Review of Systems:
no cp or sob
c/o hand edema unchanged
known h/o neurogenic bladder and was doing CIC at home
no n/v
Labs
-
Labs:
WBC 12.6 10^3/uL (4.8-10.8) H 02/21/25 08:04
RBC 2.99 10^6/uL (4.70-6.10) L 02/21/25 08:04
Hgb 8.3 g/dL (13.0-18.0) L 02/21/25 08:04
Hct 25.9 % (39.0-52.0) L 02/21/25 08:04
Plt Count 530 10^3/uL (130-400) H 02/21/25 08:04
Sodium 137 mmol/L (135-145) 02/21/25 08:04
Potassium 4.4 mmol/L (3.5-5.1) 02/21/25 08:04
Chloride 103 mmol/L (98-107) 02/21/25 08:04
Carbon Dioxide 29 mmol/L (22-30) 02/21/25 08:04
BUN 19 mg/dl (9-20) 02/21/25 08:04
Creatinine 1.5 mg/dL (0.7-1.3) H 02/21/25 08:04
eGFR > 60.00 02/21/25 08:04
Glucose 282 mg/dl (70-99) H 02/21/25 08:04
Calcium 8.9 mg/dl (8.4-10.2) 02/21/25 08:04
Albumin 3.3 g/dl (3.5-5.0) L 02/19/25 10:32
Physical Exam
-
Vital Signs:
Vital Signs
Temp Pulse Resp BP Pulse Ox
98.1 F 102 16 147/84 96
02/21/25 08:12 02/21/25 10:10 02/21/25 08:12 02/21/25 10:10 02/21/25 08:12
Cardiovascular:: Regular rate and rhythm
Lung Excursion:: Normal
Abdomen:: Nontender and Soft
Bowel Sounds:: Normal
Extremity Edema:: +1: Bilateral:
[2025-02-21] MEDS: NOVOLOG FLEXPEN-MODERATE RESISTANCE 7 UNITS SC (12:02)
--- NOTE | 2025-02-21 12:23 | W.DCSUMMARY ---
Discharge Summary
Discharge Data
Date of Admission: 02/07/25
Date of Discharge: 02/21/25
-
Pending Results: No
Hospital Course
29 yo man with hx IDDM, CAD with hx multiple PCI, CHF, CKD, GBS (dx 2018), right BKA, chronic left heel wound and recent left first and second toe amputation (01/21/25)
Presented for left foot wound bleeding after recent hospitalization for debridement of left foot. Podiatry recommended admission compressive dressing with a cam boot. Aspirin and Plavix was held. As hemoglobin was less than eight 1 unit of PRBCs
was provided. Eventually aspirin and Plavix resumed. Podiatry recommended to continue Santyl as a debriding agent and no surgical debridement was warranted.
Hospitalization was complicated by fever. Podiatry evaluated did not believe this was source of fever/infection. No white count elevation. Urine analysis and urine culture positive however has known history of straight cathing. Therefore
infectious diseases consulted as urine cultures were MDR/Carbapenem resistant Enterobacter. Therefore started on tobramycin IV. Unfortunately, hospitalization was further complicated by AMBER which was believed to be secondary to tobramycin with a
peak creatinine of 3.1 and down trended to 1.5 on the day of discharge. Tobramycin was discontinued and was started on Avycaz IV which were discontinued on 02/20/2025 per infectious disease recommendation.
Unfortunately hospitalization was further complicated by wound bleeding on 02/20/2025 with 2 episodes of bleeding. Fortunately hemoglobin reduced remained in no further bleeding was noted after 4 AM. Podiatry did evaluate on the day of discharge
which was 02/21/2025 and recommended outpatient follow-up as there was no further bleeding.
Will need continued PCP and podiatry follow-up.
Wound Care Instructions
L toe amp site: clean with saline, Adaptic, ABD and kerlix daily and prn drainage.
L heel: clean with saline, skin prep periwound, Santyl (sultana thick), adaptic, alginate abd pad and kerlix daily
secure with andriy wrap
R BKA site: skin prep and adhesive foam change q 3 days and prn soilage
Offloading per [employer]
Follow up with [employer] when able
Seen and examined on the day of discharge. No new complaints.
Overnight around 2 AM noted to have bleeding from his left foot. Bandage was saturated. Required dressing change.
Evaluated by podiatry this morning around 945. Wound was clean dry intact and okayed for discharge from a podiatric standpoint
If bleeding recurs change dressing and apply pressure
Hemoglobin stable
General: Well Developed and Well Nourished
HEENT: Normocephalic and Atraumatic
Respiratory: Clear to Auscultation
Cardiac: Regular Rhythm and S1/S2
GI: Soft, Nontender, Nondistended and Normal Bowel Sounds
Musculoskeletal: No Clubbing, No Cyanosis and No Edema
Skin: Warm and Dry, Left foot in dressing.
Neuro: Awake, Alert and AO x 3
More than 30 minutes spent in discharge including
Final examination of the patient
Summarizing hospital stay
Instructions for continuing care to all relevant caregivers
Preparation of discharge records, prescriptions, and referral forms
Total time spent (in minutes): 36mins
Discharge Plan
-
Patient Disposition: Residential
Discharge Diagnosis/Procedures: AMBER
Left heel wound, osteomyelitis
Diabetes mellitus type 1
Anemia, iron deficiency
Heart failure unknown EF
GERD
Bladder outlet obstruction(does SC at home), Castillo catheter
Condition: Fair
Diet: As tolerated
Activity: As tolerated
Activity Restrictions/Additional Instructions:
Presented for left foot wound bleeding after recent hospitalization for debridement of left foot. Podiatry recommended admission compressive dressing with a cam boot. Aspirin and Plavix was held. As hemoglobin was less than eight 1 unit of PRBCs
was provided. Eventually aspirin and Plavix resumed. Podiatry recommended to continue Santyl as a debriding agent and no surgical debridement was warranted.
Hospitalization was complicated by fever. Podiatry evaluated did not believe this was source of fever/infection. No white count elevation. Urine analysis and urine culture positive however has known history of straight cathing. Therefore
infectious diseases consulted as urine cultures were MDR/Carbapenem resistant Enterobacter. Therefore started on tobramycin IV. Unfortunately, hospitalization was further complicated by AMBER which was believed to be secondary to tobramycin with a
peak creatinine of 3.1 and down trended to 1.5 on the day of discharge. Tobramycin was discontinued and was started on Avycaz IV which were discontinued on 02/20/2025 per infectious disease recommendation.
Unfortunately hospitalization was further complicated by wound bleeding on 02/20/2025 with 2 episodes of bleeding. Fortunately hemoglobin reduced remained in no further bleeding was noted after 4 AM. Podiatry did evaluate on the day of discharge
which was 02/21/2025 and recommended outpatient follow-up as there was no further bleeding.
Will need continued PCP and podiatry follow-up.
Wound Care Instructions
L toe amp site: clean with saline, Adaptic, ABD and kerlix daily and prn drainage.
L heel: clean with saline, skin prep periwound, Santyl (sultana thick), adaptic, alginate abd pad and kerlix daily
secure with andriy wrap
R BKA site: skin prep and adhesive foam change q 3 days and prn soilage
Offloading per [employer]
Follow up with [employer] when able
Referrals:
[facility] [Family Provider, General]
Prescriptions:
New
torsemide 20 mg Tablet
40 mg PO DAILY Qty: 30 0RF
docusate sodium 100 mg Capsule
100 mg PO BID Qty: 30 0RF
Continued
atorvastatin 80 mg Tablet
80 mg PO HS
carvedilol 25 mg Tablet
25 mg PO BID
torsemide 20 mg Tablet
40 mg PO DAILY
acetaminophen-codeine 300-30 mg Tablet
2 tab PO DIRECTED
Rx Instructions:
1 tab bid then 1 tab hs
clopidogrel 75 mg Tablet
75 mg PO DAILY
aspirin 81 mg Tablet,Delayed Release (Dr/Ec)
81 mg PO DAILY
isosorbide mononitrate 60 mg Tablet Extended Release 24 Hr
60 mg PO DAILY
pantoprazole [Protonix] 40 mg Tablet,Delayed Release (Dr/Ec)
40 mg PO DAILY
insulin glargine [Lantus Solostar U-100 Insulin] 100 unit/mL (3 mL) Insulin Pen
30 unit SC BID
ranolazine 1,000 mg Tablet Extended Release 12 Hr
1,000 mg PO BID
Humulin R Regular U-100 Insuln 100 unit/mL Solution
1 sliding scale dose SC AC
gabapentin 300 mg Capsule
300 mg PO TID
duloxetine 30 mg Capsule,Delayed Release(Dr/Ec)
30 mg PO DAILY
Discharge Orders:
Discharge Patient (As Directed); Ordered 02/21/25
Ordered By: Calderon Salcido
Discharge Date and Time
Print Language: GEORGIAN
[2025-02-21] MEDS: DEMADEX 40 MG PO (13:00)
--- NOTE | 2025-02-21 14:50 | PTCARENOTE ---
pt with copious amount of sanguineous drainage from L greater toe and second toe amputation site. increased swelling to L foot noted. MD and podiatry made aware. D/C cancelled and vascular surgery to bedside. tightly wrap, elevate and pressure were
encouraged. wound care completed by this RN.
--- NOTE | 2025-02-21 15:40 | CON.VAS ---
Addendum entered and electronically signed by Christoph Castillo III, MD 02/21/25 17:15:
This patient was seen and examined in collaboration with DONTE Marrero. I agree with the history and physical exam as well as the assessment and plan. I have the following additions:
29-year-old male
DM, CKD, CAD, R BKA
Currently incarcerated
Left toe amputations performed in [place] last month
Ongoing oozing from the suture line of the left foot
Called to evaluate
The amputation wound is clean. Skin oozing is identified at the site of one of the sutures
No drainage
No obvious infection
Also has a right medial ankle wound
Patient is allergic to silver and therefore we will not be able to use silver nitrate for cautery.
Dry pressure dressing applied to the left foot amputation site and Hemal wrapped
Will return in the morning and reevaluate. Could use bedside thermal cautery if necessary.
He will need wound care and podiatry followup
Signed:
Christoph Castillo III, MD
Vascular Surgery
[facility]
Original Note:
Consultation
Consultation Request
Date/Time Consultation Performed: 02/21/25 2:30 PM
Performing Provider: Jonathan
Reason for Consultation: Bleeding at TMA site
Medical History
-
Chief Complaint: Bleeding at TMA site
History of Present Illness:
29-year-old male with past medical history significant for CAD with 4 stents, type 1 diabetes, hypertension, heart failure, Guillian Potts�, GERD, CKD 3, right BKA, status post left hallux and second digit amputation due to osteomyelitis on 01/21/2025
in hospital in [place]. Patient is here from [facility] for blood loss anemia from oozing left heel and left hallux and second digit amputation site.
Patient was admitted from 02/02/2025 to 02/04/2025 and again readmitted on 02/07/2025 for oozing from amputation site. Patient was moved from [place] to [facility] last month so all prior medical information has been
requested. Patient is going through multiple dressings a day for continued oozing from amputation site. Vascular consult to evaluate oozing at amputation site.
Patient seen at bedside this afternoon with Dr. Castillo. Amputation site assessed and redressed with tight compression wrap. Scant ooze from middle suture site.
Past Medical History
Past Medical History: Other (CAD with stenting, type 1 diabetes, hypertension, heart failure, Mclean Potts�, GERD, CKD 3)
Past Surgical History: Other (Right BKA, left hallux and second digit amputation due to osteomyelitis)
Social History
Tobacco: Non-Smoker
Personal: Single
Living: Halfway
Allergies / Home Medications
Allergy/AdvReac Type Severity Reaction Status Date / Time
ibuprofen Allergy Unknown Verified 02/14/25 16:06
oxycodone Allergy Unknown Verified 02/14/25 16:06
Penicillins Allergy Unknown/tolerated Verified 02/14/25 16:06
amoxicillin
silver Allergy Hives Verified 02/14/25 16:06
silver nitrate Allergy Hives Verified 02/14/25 16:06
sweet potato Allergy Unknown Verified 02/14/25 16:06
tuna oil Allergy Unknown Verified 02/14/25 16:06
turkey Allergy Unknown Verified 02/14/25 16:06
�Medication �Instructions �Recorded �Confirmed �Type
acetaminophen 300 mg-codeine 30 mg 2 tab PO DIRECTED Pain 02/02/25 02/07/25 History
tablet
aspirin 81 mg tablet,delayed 81 mg PO DAILY Blood Clot 02/02/25 02/07/25 History
release Prevention/Tx
atorvastatin 80 mg tablet 80 mg PO HS High Cholesterol 02/02/25 02/07/25 History
carvedilol 25 mg tablet 25 mg PO BID Heart Failure 02/02/25 02/07/25 History
clopidogrel 75 mg tablet 75 mg PO DAILY Blood Clot 02/02/25 02/07/25 History
Prevention/Tx
insulin glargine 100 unit/mL (3 30 unit SC BID Diabetes 02/02/25 02/07/25 History
mL) subcutaneous pen (Lantus
Solostar U-100 Insulin)
isosorbide mononitrate 60 mg 60 mg PO DAILY Heart 02/02/25 02/07/25 History
tablet,extended release 24 hr Disease/Condition
pantoprazole 40 mg tablet,delayed 40 mg PO DAILY Gastrointestinal 02/02/25 02/07/25 History
release (Protonix) Issue
ranolazine 1,000 mg 1,000 mg PO BID Heart 02/02/25 02/07/25 History
tablet,extended release,12 hr Disease/Condition
torsemide 20 mg tablet 40 mg PO DAILY Fluid 02/02/25 02/07/25 History
Retention/Swelling
duloxetine 30 mg capsule,delayed 30 mg PO DAILY Mental 02/07/25 02/07/25 History
release Health/Anxiety
gabapentin 300 mg capsule 300 mg PO TID NEUROPATHIC PAIN 02/07/25 02/07/25 History
insulin regular human 100 unit/mL 1 sliding scale dose SC AC Diabetes 02/07/25 02/07/25 History
injection solution (Humulin R
Regular U-100 Insulin)
docusate sodium 100 mg capsule 100 mg PO BID #30 caps 02/21/25 Rx
torsemide 20 mg tablet 40 mg (2 x 20 mg) PO DAILY #30 tabs 02/21/25 Rx
Review of Systems
-
History Source: Patient
Constitutional: Reports No Symptoms
EENT: Reports No Symptoms
Respiratory: Reports No Symptoms
Cardiac: Reports No Symptoms
Vascular: Denies Leg Pain / Claudication
: Reports No Symptoms
Musculoskeletal: Reports Muscle Pain, Muscle Stiffness and Edema
Skin: Reports Other (oozing left hallux/second toe amputation site)
Neurological: Reports No Symptoms
Physical Exam
Vital Signs
Temp Pulse Resp BP Pulse Ox
98.1 F 102 16 147/84 96
02/21/25 08:12 02/21/25 10:10 02/21/25 08:12 02/21/25 13:00 02/21/25 08:12
Lab Results
02/21/25 08:04
Troponin I < 0.012 ng/ml 02/07/25 15:34
Physical Exam
General: No Apparent Distress
HEENT: Normocephalic and Atraumatic
Respiratory: Non Labored Respirations
Cardiac: Negative JVD
Musculoskeletal: No Clubbing, No Cyanosis and Edema
Skin: Warm and Other (See wound care notes for images)
Neuro: Awake, Alert and Oriented
Psych: Calm
Assessment / Plan
-
29-year-old male here with continued ooze from left partial TMA site
Plan:
Compression wrap and elevate
Will take dressing down and reevaluate in the morning, may cauterize if still oozing
Data Reviewed
-
Ultrasound: Discussed with Physician
Labs: Labs Reviewed by me
[2025-02-21 15:50] VITALS: BP 107/69
[2025-02-21 16:41] LABS: Glucose - Point of Care 368 mg/dl (70-99)
[2025-02-21] MEDS: NOVOLOG FLEXPEN-MODERATE RESISTANCE 9 UNITS SC (16:41)
[2025-02-21 17:38] LABS: Hematocrit 24.9 % (39.0-52.0); Hemoglobin 8.0 g/dL (13.0-18.0)
--- NOTE | 2025-02-21 18:20 | PTCARENOTE ---
H&H redrawn. results of 8.0. PO prn pain med given per parameters. see MAR for proper documentation.
--- NOTE | 2025-02-21 19:09 | PTCARENOTE ---
Mercedes. states plan for him is to be transferred to a correctional facility with an infirmary but they need to file paperwork after seeing him in person to get the process initiated. hospitalist is aware as well as concrete floor installer.
[2025-02-21] MEDS: COLACE 100 MG PO (21:04)
[2025-02-21] MEDS: LANTUS 0.15 UNITS SC (21:22)
[2025-02-21 21:26] LABS: Glucose - Point of Care 274 mg/dl (70-99)
[2025-02-21 23:24] VITALS: BP 165/85
[2025-02-22] MEDS: LIPITOR 80 MG PO ×2 (00:04→22:51)
[2025-02-22] MEDS: NEURONTIN 300 MG PO ×4 (00:04→22:51)
[2025-02-22] MEDS: NORCO 7.5/325 1 TABLET PO ×4 (00:06→20:20)
[2025-02-22 05:32] VITALS: BMI 32.7
--- NOTE | 2025-02-22 06:35 | PTCARENOTE ---
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
[2025-02-22 07:30] VITALS: BP 135/76
[2025-02-22 07:38] LABS: Glucose - Point of Care 409 mg/dl (70-99)
[2025-02-22 08:57] LABS: Glucose 359 mg/dl (70-99)
[2025-02-22 08:58] LABS: Blood Urea Nitrogen 23 mg/dl (9-20); Calcium 8.4 mg/dl (8.4-10.2); Carbon Dioxide 28 mmol/L (22-30); Chloride 99 mmol/L (98-107); Estimated Creatinine Clearance 93 ml/min; Glucose 364 mg/dl (70-99); Hematocrit 26.2 % (39.0-52.0); Hemoglobin 8.3 g/dL (13.0-18.0); Mean Corp Hgb Conc. 31.7 g/dL (33.0-37.0); Mean Corpuscular Volume 86.8 fL (80.0-94.0); Nucleated Red Blood Cells % 0 % (-); Potassium 4.7 mmol/L (3.5-5.1); Red Cell Dist. Width 16.4 % (11.5-14.5); Sodium 136 mmol/L (135-145); eGFR > 60.00
[2025-02-22] MEDS: RANEXA EXTENDED RELEASE 1000 MG PO ×2 (08:58→20:21)
[2025-02-22] MEDS: ASPIR LOW (ENTERIC COATED) 81 MG PO (08:58)
[2025-02-22] MEDS: COREG 25 MG PO ×2 (08:59→20:24)
[2025-02-22] MEDS: DEMADEX 40 MG PO (08:59)
[2025-02-22] MEDS: COLACE PO (08:59)
[2025-02-22] MEDS: CYMBALTA DELAYED RELEASE 30 MG PO (08:59)
[2025-02-22] MEDS: PLAVIX 75 MG PO (08:59)
[2025-02-22] MEDS: SANTYL OINTMENT TOPICAL (09:00)
[2025-02-22] MEDS: LANTUS 0.3 UNITS SC ×2 (09:00→20:33)
[2025-02-22] MEDS: IMDUR (EXTENDED RELEASE) 60 MG PO (09:00)
[2025-02-22] MEDS: HEPARIN SC ×2 (09:00→15:30)
[2025-02-22] MEDS: NOVOLOG FLEXPEN 8 UNITS SC ×3 (09:06→17:10)
[2025-02-22] MEDS: NOVOLOG FLEXPEN-MODERATE RESISTANCE 9 UNITS SC (09:06)
--- NOTE | 2025-02-22 10:11 | CM ---
Reviewed the chart notes. CM continues to be available to patient/family and is monitoring medical plan for needs at discharge.
Plan: Discharge back to [facility] when medically stable.
Report: [phone]
--- NOTE | 2025-02-22 10:55 | W.PN.VS ---
Addendum entered and electronically signed by Christoph Castillo III, MD 02/22/25 12:06:
This patient was seen and examined in collaboration with DONTE Marrero. I agree with the history and physical exam as well as the assessment and plan. I have the following additions:
Patient had blood through the dressing this morning
Comfortable and in no distress
Removed suture from the amputation wound at bedside to expose the area of bleeding better
Thermal cautery applied to the area of bleeding at the skin edge
Packed the site of bleeding with Surgicel
Covered with dry dressing and compressed with Hemal wrap
Recommend that podiatry reevaluate the patient. If he continues to bleed he will need to have the wound explored and addressed.
Signed:
Christoph Castillo III, MD
Vascular Surgery
[facility]
Original Note:
Today's Communication / Plan
-
Seen and assessed with Dr. Castillo
Assessment/Plan
-
29-year-old male here with continued oozing at partial TMA site
Plan:
1 suture removed and area cauterized by Dr. Castillo at bedside
Site packed and compression wrapped
Recommend monitoring today with hope for DC tomorrow
Subjective Data
-
Date of Service: February 22, 2025
Patient seen at bedside this a.m. with Dr. Castillo. Patient complains of his foot site oozing through the dressing overnight.. No other events
Objective Data
-
Vital Signs
Temp Pulse Resp BP Pulse Ox
98.2 F 87 18 135/76 97
02/22/25 07:30 02/22/25 07:30 02/22/25 07:30 02/22/25 07:30 02/22/25 07:30
Intake and Output
02/21/25 02/22/25 02/23/25
06:59 06:59 06:59
Intake Total 2224 / 2224 2279 / 2279
Output Total 1800 / 1800 3000 / 3000
Balance 424 / 424 -720 / -720
Intake:
Oral fluids 2099 / 2279
IV fluids (Total) 0 / 0
IV piggybacks 124 / 124 0 / 0
Output:
Urine, Voided 1800 / 1800 3000 / 3000
Other:
Number of approximated MODERATE 1
amounts of urine
Lab Results
02/22/25 08:25
02/22/25 08:25
Calcium 8.4 mg/dl (8.4-10.2) 02/22/25 08:25
Total Bilirubin 0.4 mg/dl (0.2-1.3) 02/19/25 10:32
AST 15 U/L (17-59) L 02/19/25 10:32
ALT 10 U/L (0-50) 02/19/25 10:32
Alkaline Phosphatase 98 U/L (38-126) 02/19/25 10:32
Total Protein 6.7 g/dl (6.3-8.2) 02/19/25 10:32
Albumin 3.3 g/dl (3.5-5.0) L 02/19/25 10:32
Physical Exam
-
AAO x 3
No tachypnea on room air
No tachycardia
Foot dressing removed at bedside
Small close at one of the middle suture sites
[2025-02-22] MEDS: DILAUDID 0.25 MG IV ×3 (10:58→22:51)
--- NOTE | 2025-02-22 11:10 | PN.DE.MGMTRT ---
Insulin Management
- -
02/22/2025 Diabetes Management Consult
Patient admitted from [facility] with c/o bleeding L heel wound, feeling light headed and weak. Consult for diabetes management 02/22. PMH type 1 diabetes, R BKA, L toe amputation, recent debridement L heel, [place], chf, HTN, CKD, [place]. Prior to admission was receiving lantus 30 units BID with Regular insulin ss AC. A1C on admission 8.1%, cr 1.5, eGFR > 60.
Patient is awake alert and oriented able to discuss diabetes care. Patient states prior to incarceration he had an insulin pump with CGM (he would not be permitted to use), he is not sure where it is. States he was 5 or 6 when diagnosed with
diabetes. Prior to incarceration was living in a longterm per patient he will return there.
Gllucose range yesterday 274 to 368. Patient received lantus 30 units in AM. Will increase lantus to 30 BID and add 5 units novolog ac with moderate corrective insulin. Instructed patient on use of menu to target 60 grams of carbs per meal. He
verbalized understanding.
Discussed with nurse
Will follow.
Diabetes History
- -
Type of Diabetes: 1
Pre-Admission Diabetes Regimen
02/22/25
08:25
Creatinine 1.5 H
Insulin Pump Settings
IP Diabetes Regimen
02/21/25 02/21/25 02/21/25
11:37 16:40 21:21
Glucose
POC Glucose 321 H 368 H 274 H
02/22/25 02/22/25 02/22/25
07:37 08:25 08:25
Glucose 359 H 364 H
POC Glucose 409 H
Meal type: Breakfast
Meal type: Dinner
Meal type: Dinner
Meal type: Lunch
Amount consumed: 100%
Amount consumed: 100%
Amount consumed: 100%
Amount consumed: 100%
Patient Education
--- NOTE | 2025-02-22 11:54 | W.PN.HOSP.TC ---
Today's Communication/Plan
-
Assessment / Plan
Assessment / Plan
General: Well Developed and Well Nourished
HEENT: Normocephalic and Atraumatic
Respiratory: Clear to Auscultation
Cardiac: Regular Rhythm and S1/S2
GI: Soft, Nontender, Nondistended and Normal Bowel Sounds
Musculoskeletal: No Clubbing, No Cyanosis and No Edema
Skin: Warm and Dry, Left foot in dressing on the distal portion with blood.
Neuro: Awake, Alert and AO x 3
Recurrent wound bleeding of the left foot
Hemoglobin stable
Podiatry consulted and following did not believe any additional debridement was required
Vascular surgery evaluated will perform bedside cauterization as bleeding occurred again
Avoid IV narcotics, wean narcs as tolerated
AMBER
Improved and stable
CAD the s/p PCI
Continue aspirin Plavix
Continue statin beta-ramón
History of CIDP
Continue duloxetine Tylenol gabapentin and hydrocodone
Neurology recommended outpatient follow-up with neurology, outpatient Plex of 3/5 exchanges
Echocardiogram that was requested by neurology to assess if would be able to tolerate Plavix therapy completed
IDDM
Accu-Cheks sliding scale long and short acting insulin
Diabetes management team
Carb controlled diet
Anticipated Discharge: Within 24 hours
Subjective/Interval History
-
Date of Service: February 22, 2025
Seen and examined. No new complaints. No acute overnight events.
Again had more bleeding yesterday therefore discharge was discontinued. Podiatry was notified. Did not believe anything was needed to be done.
Therefore consulted vascular surgery, recommended to wrap the wound tightly compression to prevent any further bleeding diuresis to help resolve the edema has been held and if further bleeding occurs then will require cauterization
This morning further bleeding was noted therefore I notified vascular surgery bedside cauterization completed successfully
-Hemoglobin stable slightly better than yesterday
Objective Data
-
Labs:
Laboratory Results
02/22/25 02/22/25
08:25 08:25
WBC 18.0 H
Hgb 8.3 L
Hct 26.2 L
Plt Count
Sodium 136
Potassium 4.7
Chloride 99
Carbon Dioxide 28
BUN 23 H
Creatinine 1.5 H
Glucose 359 H 364 H
Calcium 8.4
Vital Signs:
Vital Signs
Temp Pulse Resp BP Pulse Ox
98.2 F 87 18 135/76 97
02/22/25 07:30 02/22/25 07:30 02/22/25 07:30 02/22/25 07:30 02/22/25 07:30
I&O
02/21/25 02/22/25 02/23/25
06:59 06:59 06:59
Intake Total 2224 / 2224 2280 / 2280
Output Total 1800 / 1800 3000 / 3000
Balance 424 / 424 -720 / -720
[2025-02-22 12:02] LABS: Glucose - Point of Care 267 mg/dl (70-99)
[2025-02-22] MEDS: NOVOLOG FLEXPEN-MODERATE RESISTANCE 5 UNITS SC (12:04)
[2025-02-22 15:29] VITALS: BP 110/60
[2025-02-22 16:40] LABS: Hematocrit 22.8 % (39.0-52.0); Hemoglobin 7.5 g/dL (13.0-18.0)
[2025-02-22 17:03] LABS: Glucose - Point of Care 139 mg/dl (70-99)
[2025-02-22] MEDS: NOVOLOG FLEXPEN-MODERATE RESISTANCE SC (17:09)
[2025-02-22 17:44] VITALS: BP 128/71
--- NOTE | 2025-02-22 18:15 | W.PN.UPDATE ---
Update Note
Progress Note Update
Called in as left foot wound continues to bleed through despite local cautery by vascular service. Bleeding mild to moderate from focal area at the lateral aspect of the incision site only. Mattress suture and simple suture with 3.0 vicryl placed
along with steri strips. Area watched for 15 minutes with no active bleeding noted. Adaptic and dressing applied. Compression with andriy bandage carefully applied in graded fashion to avoid excessive pressure in the midfoot and ankle which will
cause increase in bleeding from the site. Nursing instructed not to disturb dressing unless bleed through noted and will keep the leg continuously elevated. Will follow up in am.
--- NOTE | 2025-02-22 18:29 | PTCARENOTE ---
Vascular cauterized patient this am. Patient bleeding through dressing. , Vasc and podiatry made aware. Instructed to redress foot with a quickclot dressing. Pt. bleeding through dressing again. Repeat hgb 7.5. Podiatry came to see patient.
Sutures and steri strips applied. Will pass along wound care instructions to shift supervisor film processing rn per podiatry. VSS. Serial H &Hs ordered.
[2025-02-22] MEDS: COLACE 100 MG PO (20:21)
[2025-02-22 20:22] LABS: Glucose - Point of Care 144 mg/dl (70-99)
[2025-02-22 22:35] LABS: Glucose - Point of Care 90 mg/dl (70-99)
[2025-02-22 23:13] VITALS: BP 117/65
[2025-02-22 23:21] LABS: Hematocrit 21.4 % (39.0-52.0); Hemoglobin 7.0 g/dL (13.0-18.0)
[2025-02-22 23:35] LABS: INR 1.01; PT 13.6 Sec (11.4-14.6)
[2025-02-23] VITALS (13 sets, daily range): BP systolic 95–128; BP diastolic 52–71; BMI 33.2
--- NOTE | 2025-02-23 00:10 | W.PN.UPDATE ---
Update Note
Progress Note Update
RN reports patient wound on left foot bleeding more than normal. Advised to reinforced the dressing, elevate leg and let Vascular team aware. Patient reports pain 10/10 one time dose of IV Dilaudid given.
H/h 7.0/21.4, type and screen done, consent in chart. will order 1 unit of PRBC's.
Patient seen again as RN stated still bleeding at the wound site. Podiatry double end production grinder Dr. Giles made aware, Advised she will make Dr. Whatley aware by fwd'n the messege.
Patient seen and evaluated. RN states she reinforced the dressing multiple times and still bleeding.
Left foot is continuos is ooze from the surgical site, Dressing in place. stable VS.
[place] texted Vascular team.
Vascular team Dr. REEVES advised to continue reinforcing and transfuse at present.
H&H pending
bleeding has slowed down per nursing.
--- NOTE | 2025-02-23 07:16 | PN.DE.MGMTRT ---
Insulin Management
- -
02/28/2025 Diabetes Management Consult Follow up
Patient admitted from [facility] 02/07 with c/o bleeding L heel wound, feeling light headed and weak. Consult for diabetes management 02/22. PMH type 1 diabetes, R BKA, L toe amputation, recent debridement L heel, Guill[place], chf, HTN, CKD, [place]. Prior to admission was receiving lantus 30 units BID with Regular insulin ss AC. A1C on admission 8.1%, cr 1.5, eGFR > 60.
Patient is awake alert and oriented able to discuss diabetes care. Patient states prior to incarceration he had an insulin pump with CGM (he would not be permitted to use), he is not sure where it is. States he was 5 or 6 when diagnosed with
diabetes. Prior to incarceration was living in a senior care per patient he will return there.
Glucose range yesterday 274 to 368. Patient received lantus 30 units BID with 8 units novolog ac with moderate corrective insulin yesterday. Glucose range 409 to 90. Will decrease AC novolog to 6 units and reduce corrective insulin to low.
Instructed patient on use of menu to target 60 grams of carbs per meal. He verbalized understanding.
Discussed with nurse
Will follow.
Diabetes History
- -
Type of Diabetes: 1
Pre-Admission Diabetes Regimen
02/22/25
08:25
Creatinine 1.5 H
Insulin Pump Settings
IP Diabetes Regimen
02/22/25 02/22/25 02/22/25
07:37 08:25 08:25
Glucose 359 H 364 H
POC Glucose 409 H
02/22/25 02/22/25 02/22/25
12:00 17:02 20:20
Glucose
POC Glucose 267 H 139 H 144 H
02/22/25
22:33
Glucose
POC Glucose 90
Meal type: Lunch
Meal type: Breakfast
Amount consumed: 100%
Amount consumed: 100%
Patient Education
[2025-02-23 07:26] LABS: Hematocrit 22.2 % (39.0-52.0); Hemoglobin 7.1 g/dL (13.0-18.0)
[2025-02-23 07:57] LABS: Blood Urea Nitrogen 32 mg/dl (9-20); Calcium 7.8 mg/dl (8.4-10.2); Carbon Dioxide 30 mmol/L (22-30); Chloride 99 mmol/L (98-107); Estimated Creatinine Clearance 67 ml/min; Glucose 191 mg/dl (70-99); Potassium 4.1 mmol/L (3.5-5.1); Sodium 133 mmol/L (135-145); eGFR 42.89
[2025-02-23] MEDS: IMDUR (EXTENDED RELEASE) 60 MG PO (08:18)
[2025-02-23] MEDS: RANEXA EXTENDED RELEASE 1000 MG PO ×2 (08:18→20:09)
[2025-02-23] MEDS: PLAVIX PO ×2 (08:18→09:07)
[2025-02-23] MEDS: NEURONTIN 300 MG PO ×3 (08:18→21:22)
[2025-02-23] MEDS: CYMBALTA DELAYED RELEASE 30 MG PO (08:18)
[2025-02-23] MEDS: COLACE 100 MG PO ×2 (08:19→20:08)
[2025-02-23] MEDS: DEMADEX 40 MG PO (08:19)
[2025-02-23] MEDS: COREG 25 MG PO ×2 (08:19→20:09)
[2025-02-23] MEDS: HEPARIN SC ×2 (08:20→09:07)
[2025-02-23] MEDS: ASPIR LOW (ENTERIC COATED) 81 MG PO (08:20)
[2025-02-23 08:21] LABS: Glucose - Point of Care 227 mg/dl (70-99)
[2025-02-23] MEDS: NOVOLOG FLEXPEN-LOW RESISTANCE 2 UNITS SC (08:21)
[2025-02-23] MEDS: LANTUS SC ×2 (08:22→09:06)
[2025-02-23] MEDS: NOVOLOG FLEXPEN SC ×2 (08:24→09:07)
[2025-02-23 08:53] LABS: Albumin 2.28 g/dL (3.75-5.01); SPEP IFE Reflex Not Done; Total Protein-Electrophoresis 6.2 g/dL (6.3-8.2)
--- NOTE | 2025-02-23 08:58 | W.PN.HOSP.TC ---
Today's Communication/Plan
-
1 unit PRBC
repeat Hg this afternoon
hold Hep subQ and Plavix
follow up further Podiatry recommendations
Assessment / Plan
Assessment / Plan
General: Well Developed and Well Nourished
HEENT: Normocephalic and Atraumatic
Respiratory: Clear to Auscultation
Cardiac: Regular Rhythm and S1/S2
GI: Soft, Nontender, Nondistended and Normal Bowel Sounds
Musculoskeletal: No Clubbing, No Cyanosis and No Edema
Skin: Warm and Dry, Left foot in dressing on the distal portion with blood.
Neuro: Awake, Alert and AO x 3
Recurrent wound bleeding of the left foot
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
Osteomyelitis of left hallux s/p amputation on 01/21/25
-appreciate Vascular surgery evaluation - s/p bedside cauterization for recurrent bleeding
-appreciate Podiatry consult - s/p suturing and steri strips yesterday evening, continues to bleed
-stop Plavix (PCI over one year ago)
Acute blood loss anemia
-patient ordered for 5th unit of blood this morning, goal Hg > 8 given cardiac history
AMBER
creatinine up to 2.1 this AM
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
-monitor post additional unit of blood given this AM
CAD the s/p PCI
Continue aspirin, hold PLavix with recurrent bleeding
Continue statin beta-ramón
History of CIDP
Continue duloxetine Tylenol gabapentin and hydrocodone
Neurology recommended outpatient follow-up with neurology, outpatient Plex of 3/5 exchanges
Echocardiogram that was requested by neurology to assess if would be able to tolerate Plavix therapy completed
IDDM
Accu-Cheks sliding scale long and short acting insulin
Diabetes management team
Carb controlled diet
FULL CODE
Anticipated Discharge: 24 - 48 hours
Subjective/Interval History
-
Date of Service: February 23, 2025
continues to have bleeding from wound
Objective Data
-
Labs:
Laboratory Results
02/22/25 02/23/25 02/23/25
23:06 07:16 12:45
Hgb 7.0 L 7.1 L Pending
Hct 21.4 L 22.2 L Pending
PT 13.6
INR 1.01
Sodium 133 L
Potassium 4.1
Chloride 99
Carbon Dioxide 30
BUN 32 H
Creatinine 2.1 H
Glucose 191 H
Calcium 7.8 L
02/23/25
18:45
Hgb Pending
Hct Pending
PT
INR
Sodium
Potassium
Chloride
Carbon Dioxide
BUN
Creatinine
Glucose
Calcium
Vital Signs:
Vital Signs
Temp Pulse Resp BP Pulse Ox
98 F 86 16 128/71 98
02/23/25 07:00 02/23/25 08:19 02/23/25 07:00 02/23/25 08:19 02/23/25 07:00
I&O
02/22/25 02/23/25 02/24/25
06:59 06:59 06:59
Intake Total 2280 / 2280 1870 / 1870
Output Total 3000 / 3000 750 / 750
Balance -720 / -720 1120 / 1120
Review of Systems
-
History Source: Patient
All other systems: Reviewed and negative
Physical Exam
-
General: Well Developed and Well Nourished
HEENT: Normocephalic and Atraumatic
Respiratory: Clear to Auscultation
Cardiac: Regular Rhythm and S1/S2
GI: Soft, Nontender, Nondistended and Normal Bowel Sounds
Genito-urinary: Clear Urine and Castillo
Musculoskeletal: No Clubbing, No Cyanosis, No Edema and Other (right bKa; left foot with oozing around dressing )
Skin: Warm and Dry
Neuro: Awake, Alert and AO x 3
Psych: Calm
Data Reviewed
-
Diagnostic Radiology: Report Reviewed by me
Labs: Labs Reviewed by me
[2025-02-23] MEDS: SANTYL OINTMENT TOPICAL (09:07)
--- NOTE | 2025-02-23 09:26 | CM ---
Reviewed the chart notes. CM continues to be available to patient/family and is monitoring medical plan for needs at discharge.
Plan: Discharge back to [facility] when medically stable.
Report: [phone]
[2025-02-23] MEDS: LANTUS 0.15 UNITS SC (10:11)
--- NOTE | 2025-02-23 11:02 | PN.CDI ---
CDI
- -
CDI:
Physician Documentation Request
Admit Date: 02/07/25 19:19
Dear Doctor Uzair,
Please review the following and provide your response in the progress notes.
Clinical Indicators:
Pt admitted with Bleeding chronic foot wound /ABLA
Progress note 02/10,' Fever? Source...Check blood cultures. Check urine analysis and a culture. Patient self catheterizes.... Tachycardic...'
Progress notes 02/12,' Fever likely UTI ...Blood cultures are negative. Urine culture gram-negative. Await urine culture identification susceptibility.Patient self catheterizes....'
Progress note 02/13, ' Fever likely Klebsiella multidrug urinary tract infection...'
ID progress note 02/15, ' # Symptomatic UTI with MDR/Carbapenem- resistant Enterobacter Fever -resolved Leukocytosis - resolved..'
Tmax 101.4 ( 02/09)
02/09/25
19:27 02/09/25
21:04 02/09/25
23:23
Temp 101.4 F H
Pulse 95 97
02/10/25
11:05
Temp 100.4 F H
Pulse 96
02/12/25 02/13/25 02/14/25
08:01 08:53 08:36
WBC 12.4 H 12.0 H 12.1 H
02/17/25
08:11
WBC 13.7 H
Please clarify which of the following most accurately describes the status of the patient's infection:
Sepsis
- Systemic manifestations of infection, with 2 or more SIRS criteria which include:
- Fever >100.9 degrees F or hypothermia < 96.8 degrees F
- Leukocytosis - WBC > 12,000 or leukopenia - WBC < 4,000 or > 10% bands
- Tachycardia > 90 beats per minute
- Tachypnea - RR > 20 breaths per minute or PaCO2 , 32mmHg
Source: Merck Manual 2013
UTI only , Without Systemic Illness
Other ( please specify)
Use of terms such as suspected, likely, concern for, or probable (associated with a specific diagnosis that is being evaluated, monitored, or treated as if it exists) are acceptable and can be coded in the inpatient setting, when documented at the
time of discharge.
Thank you,
Luz Elena Mtz RN
CDI Specialist
[place] [employer]
Please use your independent medical judgment in providing your response.
[2025-02-23 11:49] LABS: Glucose - Point of Care 272 mg/dl (70-99)
[2025-02-23] MEDS: NOVOLOG FLEXPEN-LOW RESISTANCE 3 UNITS SC ×2 (11:49→17:30)
[2025-02-23] MEDS: NOVOLOG FLEXPEN 6 UNITS SC ×2 (11:50→17:29)
[2025-02-23] MEDS: NORCO 7.5/325 1 TABLET PO ×2 (12:33→20:08)
[2025-02-23 16:59] LABS: Glucose - Point of Care 278 mg/dl (70-99)
--- NOTE | 2025-02-23 17:28 | PTCARENOTE ---
Bleeding noted through dressing. Dressing reenforced per podiatry. Hgb 7.1. 1 unit of PRBCs infused. Podiatry to see patient to reassess foot. Guard came to nurses station to say patient playing with foot wound under blanket. Podiatry made aware.
Order to keep boot to LLE applied at all times. VSS.
--- NOTE | 2025-02-23 17:51 | W.PN.UPDATE ---
Update Note
Progress Note Update
Called once again for bleeding through dressing from distal incision site left LE digital amputations performed in ID on 01/21/25. Sutures placed yesterday laterally remain in tact with eschar present and no active bleeding. The three medial
sutures, in tact yesterday, were completely loose with blood seeping from the adjacent area only. 3.O vicryl mattress sutures placed today medially and active bleeding immediately stopped. Area once again dressed with compression bandage and mid
calf boot placed on left leg and reinforced with taping.
Medial sutures were obviously picked at by the patient as he is aware this will cause bleeding and prevent discharge from the hospital. Guard confirmed patient was trying to pick at the dressing under the sheet, and there is no other way that
sutures in tact 24 hours ago would be pulled loose. Discussed with nursing staff as well. May need additional restraints to prevent him from picking the wound. Same issue occurred just weeks ago at the medial heel ulcer as patient was caught
picking the scab when discharge planning discussed. If no bleeding through dressing overnight, begin discharge planning.
[2025-02-23 18:21] LABS: Hematocrit 23.9 % (39.0-52.0); Hemoglobin 7.9 g/dL (13.0-18.0)
[2025-02-23 20:48] LABS: Glucose - Point of Care 379 mg/dl (70-99)
[2025-02-23] MEDS: LANTUS 0.3 UNITS SC (21:21)
[2025-02-23] MEDS: NOVOLOG FLEXPEN 5 UNITS SC (21:22)
[2025-02-23] MEDS: LIPITOR 80 MG PO (21:22)
[2025-02-23 23:29] LABS: Glucose - Point of Care 344 mg/dl (70-99)
[2025-02-23] MEDS: NOVOLOG FLEXPEN 4 UNITS SC (23:54)
[2025-02-24] MEDS: NORCO 7.5/325 1 TABLET PO ×2 (00:43→12:02)
[2025-02-24 01:17] LABS: Hematocrit 22.0 % (39.0-52.0); Hemoglobin 7.3 g/dL (13.0-18.0)
[2025-02-24 02:14] LABS: Glucose - Point of Care 292 mg/dl (70-99)
[2025-02-24 03:16] VITALS: BP 132/68
[2025-02-24 03:17] VITALS: BP 120/63
[2025-02-24 03:41] VITALS: BP 128/73
[2025-02-24 05:27] VITALS: BMI 33.0
--- NOTE | 2025-02-24 06:06 | W.PN.UPDATE ---
Update Note
Progress Note Update
hgb 7.3/22.0 stable VS, patient asymptomatic, left foot wound wrapped in dressing per nursing. Will transfuse 1 unit of PRBC's to keep hgb >8 given cardiac history.
[2025-02-24 06:36] VITALS: BP 154/84
--- NOTE | 2025-02-24 06:41 | W.PN.UPDATE ---
Update Note
Progress Note Update
hgb 7.3/22.0 stable VS, patient asymptomatic, left foot wound wrapped in dressing per nursing. Will transfuse 1 unit of PRBC's to keep hgb >8 given cardiac history.
[2025-02-24 07:00] VITALS: BP 147/84
--- NOTE | 2025-02-24 07:24 | PN.DE.MGMTRT ---
Insulin Management
- -
02/24/2025 Diabetes Management Consult Follow up
Patient admitted from [facility] 02/07 with c/o bleeding L heel wound, feeling light headed and weak. Consult for diabetes management 02/22. PMH type 1 diabetes, R BKA, L toe amputation, recent debridement L heel, Guillain
[place], chf, HTN, CKD, [place]. Prior to admission was receiving lantus 30 units BID with Regular insulin ss AC. A1C on admission 8.1%, cr 1.5, eGFR > 60.
Patient is awake alert and oriented able to discuss diabetes care.
Yesterday AM lantus decreased to 15 units, glucose range yesterday 227 to 379. Will resume 30 units lantus BID and continue AC novolog 6 units with low corrective insulin.
Discussed with nurse
Will follow.
02/22 Instructed patient on use of menu to target 60 grams of carbs per meal. He verbalized understanding. Patient states prior to incarceration he had an insulin pump with CGM (he would not be permitted to use), he is not sure where it is. States
he was 5 or 6 when diagnosed with diabetes. Prior to incarceration was living in a long-term per patient he will return there.
Diabetes History
- -
Type of Diabetes: 1
Pre-Admission Diabetes Regimen
02/23/25
07:16
Creatinine 2.1 H
Insulin Pump Settings
IP Diabetes Regimen
02/23/25 02/23/25 02/23/25
07:16 08:19 11:48
Glucose 191 H
POC Glucose 227 H 272 H
02/23/25 02/23/25 02/23/25
16:57 20:46 23:25
Glucose
POC Glucose 278 H 379 H 344 H
02/24/25
02:10
Glucose
POC Glucose 292 H
Meal type: Dinner
Meal type: Lunch
Meal type: Breakfast
Amount consumed: 100%
Amount consumed: 100%
Amount consumed: 0
Patient Education
[2025-02-24 07:52] LABS: Glucose - Point of Care 300 mg/dl (70-99)
--- NOTE | 2025-02-24 08:41 | W.PN.HOSP.TC ---
Today's Communication/Plan
-
hopefully discharge if repeat Hg stable, monitor renal function
Assessment / Plan
Assessment / Plan
General: Well Developed and Well Nourished
HEENT: Normocephalic and Atraumatic
Respiratory: Clear to Auscultation
Cardiac: Regular Rhythm and S1/S2
GI: Soft, Nontender, Nondistended and Normal Bowel Sounds
Musculoskeletal: No Clubbing, No Cyanosis and No Edema
Skin: Warm and Dry, Left foot in dressing on the distal portion with blood.
Neuro: Awake, Alert and AO x 3
Recurrent wound bleeding of the left foot
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
Osteomyelitis of left hallux s/p amputation on 01/21/25
-appreciate Vascular surgery evaluation - s/p bedside cauterization for recurrent bleeding
-appreciate Podiatry consult - s/p suturing and steri strips evening 02/22, with return of bleeding --> reevaluated on 02/23 and it was seen that 3 medial sutures that were intact on 02/22 had become loose - it was clear that they were picked at by
patient. Per Dr. Whatley 'Guard confirmed patient was trying to pick at the dressing under the sheet, and there is no other way that sutures in tact 24 hours ago would be pulled loose.'
-stop Plavix (PCI over one year ago)
-boot in place for suture protection
Acute blood loss anemia
-patient ordered for 6th unit of blood this morning, goal Hg > 8 given cardiac history
-OK for DC if Hg stable
AMBER
creatinine up to 2.1 this AM
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
-monitor post additional unit of blood given this AM
CAD the s/p PCI
Continue aspirin, hold PLavix with recurrent bleeding
Continue statin beta-ramón
History of CIDP
Continue duloxetine Tylenol gabapentin and hydrocodone
Neurology recommended outpatient follow-up with neurology, outpatient Plex of 3/5 exchanges
Echocardiogram that was requested by neurology to assess if would be able to tolerate Plavix therapy completed
IDDM
Accu-Cheks sliding scale long and short acting insulin
Diabetes management team
Carb controlled diet
FULL CODE
Anticipated Discharge: Within 24 hours
Subjective/Interval History
-
Date of Service: February 24, 2025
leg wrapped with boot on
Objective Data
-
Labs:
Laboratory Results
02/24/25 02/24/25 02/24/25
00:47 06:00 06:45
WBC Pending
Hgb 7.3 L Pending
Hct 22.0 L Pending
Plt Count Pending
Sodium Pending
Potassium Pending
Chloride Pending
Carbon Dioxide Pending
BUN Pending
Creatinine Pending
Glucose Pending
Calcium Pending
Vital Signs:
Vital Signs
Temp Pulse Resp BP Pulse Ox
97.7 F 85 14 154/84 97
02/24/25 06:36 02/24/25 06:36 02/24/25 06:36 02/24/25 06:36 02/24/25 06:36
I&O
02/23/25 02/24/25 02/25/25
06:59 06:59 06:59
Intake Total 1870 / 1870 1820 / 1820
Output Total 750 / 750 2100 / 2100
Balance 1120 / 1120 -280 / -280
Review of Systems
-
History Source: Patient
All other systems: Reviewed and negative
Physical Exam
-
General: Well Developed and Well Nourished
HEENT: Normocephalic and Atraumatic
Respiratory: Clear to Auscultation
Cardiac: Regular Rhythm and S1/S2
GI: Soft, Nontender, Nondistended and Normal Bowel Sounds
Genito-urinary: Clear Urine and Castillo
Musculoskeletal: No Clubbing, No Cyanosis, No Edema and Other (right bKa; left foot now with boot in place)
Skin: Warm and Dry
Neuro: Awake, Alert and AO x 3
Psych: Calm
[2025-02-24] MEDS: ASPIR LOW (ENTERIC COATED) 81 MG PO (08:53)
[2025-02-24] MEDS: RANEXA EXTENDED RELEASE 1000 MG PO (08:53)
[2025-02-24] MEDS: CYMBALTA DELAYED RELEASE 30 MG PO (08:53)
[2025-02-24] MEDS: IMDUR (EXTENDED RELEASE) 60 MG PO (08:53)
[2025-02-24] MEDS: COLACE 100 MG PO (08:53)
[2025-02-24] MEDS: NEURONTIN 300 MG PO (08:54)
[2025-02-24] MEDS: COREG 25 MG PO (08:54)
[2025-02-24] MEDS: LANTUS 0.3 UNITS SC (08:54)
[2025-02-24] MEDS: NOVOLOG FLEXPEN-LOW RESISTANCE 4 UNITS SC ×2 (08:55→11:57)
[2025-02-24] MEDS: NOVOLOG FLEXPEN 6 UNITS SC ×2 (08:55→11:57)
[2025-02-24] MEDS: SANTYL OINTMENT TOPICAL (08:56)
--- NOTE | 2025-02-24 09:22 | CM ---
Reviewed the chart notes. Per notes, if repeat hgb stable will be discharged. CM continues to be available to patient/family and is monitoring medical plan for needs at discharge.
Plan: Discharge back to [facility] when medically stable.
Report: [phone]
[2025-02-24 09:42] LABS: Hematocrit 27.2 % (39.0-52.0); Hemoglobin 9.0 g/dL (13.0-18.0); Mean Corp Hgb Conc. 33.1 g/dL (33.0-37.0); Mean Corpuscular Volume 85.8 fL (80.0-94.0); Platelet Count 406 10^3/uL (130-400); Red Cell Dist. Width 15.8 % (11.5-14.5)
[2025-02-24 10:37] LABS: Blood Urea Nitrogen 36 mg/dl (9-20); Calcium 8.2 mg/dl (8.4-10.2); Carbon Dioxide 27 mmol/L (22-30); Chloride 100 mmol/L (98-107); Estimated Creatinine Clearance 74 ml/min; Glucose 309 mg/dl (70-99); Potassium 4.6 mmol/L (3.5-5.1); Sodium 133 mmol/L (135-145); eGFR 48.37
--- NOTE | 2025-02-24 10:57 | W.DS.TRANS ---
DC Summary - Counter [employer]
-
Discharge Instructions:
Sleep Apnea Risk Low
Discharge Diagnosis/Procedures AMBER
Left heel wound, osteomyelitis
Diabetes mellitus type 1
Anemia, iron deficiency
Heart failure unknown EF
GERD
Bladder outlet obstruction(does SC at home),
Castillo catheter
Diet As tolerated
Activity As tolerated
Blood Work BMP on Friday02/28/25;
Instructions:
Stand-Alone Forms:
Changes to Home Medications: Yes
Discharge Medications:
DC Medications w/original date entered in [employer]
acetaminophen 300 mg-codeine 30 mg tablet 2 tab PO DIRECTED Pain 02/02/25
aspirin 81 mg tablet,delayed release 81 mg PO DAILY Blood Clot Prevention/Tx 02/02/25
atorvastatin 80 mg tablet 80 mg PO HS High Cholesterol 02/02/25
carvedilol 25 mg tablet 25 mg PO BID Heart Failure 02/02/25
insulin glargine 100 unit/mL (3 mL) subcutaneous pen (Lantus Solostar U-100 Insulin) 30 unit SC BID Diabetes 02/02/25
isosorbide mononitrate 60 mg tablet,extended release 24 hr 60 mg PO DAILY Heart Disease/Condition 02/02/25
pantoprazole 40 mg tablet,delayed release (Protonix) 40 mg PO DAILY Gastrointestinal Issue 02/02/25
ranolazine 1,000 mg tablet,extended release,12 hr 1,000 mg PO BID Heart Disease/Condition 02/02/25
torsemide 20 mg tablet 40 mg PO DAILY Fluid Retention/Swelling 02/02/25
Held on 02/24/25. Instructions: Resume on 02/28/25.
duloxetine 30 mg capsule,delayed release 30 mg PO DAILY Mental Health/Anxiety 02/07/25
gabapentin 300 mg capsule 300 mg PO TID NEUROPATHIC PAIN 02/07/25
insulin regular human 100 unit/mL injection solution (Humulin R Regular U-100 Insulin) 1 sliding scale dose SC AC Diabetes 02/07/25
docusate sodium 100 mg capsule 100 mg PO BID #30 caps 02/21/25
Home Medication Changes
HOLD TORSEMIDE until repeat labs obtained on Friday02/28/25. Resume earlier if you have lower extremity swelling or shortness of breath.
STOP PLAVIX. If recommended by your Offset Press Operator Apprentice to continue then this can be resumed once wounds heal.
Pending Results: No
[2025-02-24 11:13] VITALS: BP 133/78
[2025-02-24 11:55] LABS: Glucose - Point of Care 317 mg/dl (70-99)
--- NOTE | 2025-02-24 12:31 | W.DCSUMMARY ---
Discharge Summary
Discharge Data
Date of Admission: 02/07/25
Date of Discharge: 02/24/25
-
Pending Results: No
Hospital Course
Discharging Physician : Dr. Susanna Rosen
Disposition : Longterm
Principal Discharge diagnosis : Bleeding of chronic wound on left foot, acute blood loss anemia, urinary tract infection
Hospital Course :
Mr. Sang Anderson is a 29 yo man with hx IDDM, CAD with hx multiple PCI, CHF, CKD, GBS (dx 2018), right BKA, chronic left heel wound and recent left first and second toe amputation (01/21/25), admission 02/02-02/04 for medial heel wound bleeding
represented 02/07 with return of bleeding.
Patient was admitted to medicine with Podiatry consulting. Podiatry recommended continued Santyl for debriding agent, compressive dressing with cam boot. His aspirin and plavix were initially held then resumed. Patient then had recurrent bleeding
overnight 02/20. Seen by Podiatry and Vascular surgery. He is status post thermal cautery to area of bleeding at skin edge on 02/22. Podiatry placed sutures and steri strips and hemostasis witnessed. He then had return of bleeding following day.
He was reevaluated on 02/23 by Podiatry and it was seen that 3 medial sutures that were intact on 02/22 had become loose, raising concern they were picked at by patient. Per Dr. Whatley 'Guard confirmed patient was trying to pick at the dressing
under the sheet, and there is no other way that sutures in tact 24 hours ago would be pulled loose.'
He received a total of 6 PRBC during this hospitalization. Given cardiac stent was over one year ago, OK to stop Plavix as risk of bleeding outweigh benefits. Once wound heals can consider resuming if recommended by his field artillery operations man.
Hospitalization was complicated by fever. Podiatry evaluated did not believe that wounds were source of fever/infection. No white count elevation. Urine analysis and urine culture positive however has known history of straight cathing. Therefore
infectious diseases consulted as urine cultures were MDR/Carbapenem resistant Enterobacter. He was started on tobramycin IV. Unfortunately, hospitalization was further complicated by AMBER which was believed to be secondary to tobramycin with a peak
creatinine of 3.1 and down trended. Tobramycin was discontinued and was started on Avycaz IV which were discontinued on 02/20/2025 per infectious disease recommendation.
Regarding AMBER, creatinine remained stable around 1.5 but increased to 2.1 in setting of blood loss. It is improved to 1.9 on day of discharge. I am recommending that patient hold Torsemide until labs are repeated on Wednesday 02/28. He is to resume
Torsemide if renal function improved or earlier if increase in swelling or shortness of breath.
It is a concern that patient will cause self injury to result in readmission as evidenced by him picking at sutures. He also purposely fell of the bed prior to discharge, he has no significant bruising or swelling of knee; has full ROM, did not hit
head.
Time spent on discharge was 40 minutes.
Important imaging findings :
RENAL US 02/16/25
IMPRESSION:
1. Findings consistent with acute cystitis. Otherwise unremarkable exam.
Procedure findings :
Discharge Plan
-
Patient Disposition: Longterm
Discharge Diagnosis/Procedures: AMBER
Left heel wound, osteomyelitis
Diabetes mellitus type 1
Anemia, iron deficiency
Heart failure unknown EF
GERD
Bladder outlet obstruction(does SC at home), Castillo catheter
Condition: Fair
Diet: As tolerated
Activity: As tolerated
Blood Work: BMP on Friday02/28/25;
Specialty Instructions: Weigh Daily- Call MD for wt gain/loss 3 lbs overnight/5 lbs in 1 week
Activity Restrictions/Additional Instructions:
Presented for left foot wound bleeding after recent hospitalization for debridement of left foot. Podiatry recommended admission compressive dressing with a cam boot. His aspirin and plavix were initially held then resumed. Patient had recurrent
bleeding. Sutures were placed. With recurrent bleeding it was noticed that sutures had become loose. They were reapplied and mid calf boot placed on left leg and reinforced with taping to help prevent sutures from getting manipulated.
He received a total of 6 PRBC during this hospitalization. Given cardiac stent was over one year ago, OK to stop Plavix as risk of bleeding outweigh benefits. Once wound heals can consider resuming if recommended by his field artillery operations man.
Hospitalization was complicated by fever. Podiatry evaluated did not believe this was source of fever/infection. No white count elevation. Urine analysis and urine culture positive however has known history of straight cathing. Therefore
infectious diseases consulted as urine cultures were MDR/Carbapenem resistant Enterobacter. Therefore started on tobramycin IV. Unfortunately, hospitalization was further complicated by AMBER which was believed to be secondary to tobramycin with a
peak creatinine of 3.1 and down on the day of discharge. Tobramycin was discontinued and was started on Avycaz IV which were discontinued on 02/20/2025 per infectious disease recommendation.
Will need continued PCP and podiatry follow-up.
Wound Care Instructions
L toe amp site: clean with saline, Adaptic, ABD and kerlix daily and prn drainage.
L heel: clean with saline, skin prep periwound, Santyl (sultana thick), adaptic, alginate abd pad and kerlix daily
secure with andriy wrap
R BKA site: skin prep and adhesive foam change q 3 days and prn soilage
Offloading per Household Appliance Repairer
Follow up with Household Appliance Repairer when able
For treatment of CIDP
Per Dr. Almaraz ( Neurology) assessment: outpatient plasma-exchange therapy for CIDP. 3 treatments every 3 months.
Referrals:
[facility] [Family Provider, General]
Additional Discharge Medication Instructions: HOLD TORSEMIDE until repeat labs obtained on Friday02/28/25. Resume earlier if you have lower extremity swelling or shortness of breath.
STOP PLAVIX. If recommended by your Office Helper Clerical to continue then this can be resumed once wounds heal.
Prescriptions:
New
docusate sodium 100 mg Capsule
100 mg PO BID Qty: 30 0RF
Continued
atorvastatin 80 mg Tablet
80 mg PO HS
carvedilol 25 mg Tablet
25 mg PO BID
acetaminophen-codeine 300-30 mg Tablet
2 tab PO DIRECTED
Rx Instructions:
1 tab bid then 1 tab hs
aspirin 81 mg Tablet,Delayed Release (Dr/Ec)
81 mg PO DAILY
isosorbide mononitrate 60 mg Tablet Extended Release 24 Hr
60 mg PO DAILY
pantoprazole [Protonix] 40 mg Tablet,Delayed Release (Dr/Ec)
40 mg PO DAILY
insulin glargine [Lantus Solostar U-100 Insulin] 100 unit/mL (3 mL) Insulin Pen
30 unit SC BID
ranolazine 1,000 mg Tablet Extended Release 12 Hr
1,000 mg PO BID
Humulin R Regular U-100 Insuln 100 unit/mL Solution
1 sliding scale dose SC AC
gabapentin 300 mg Capsule
300 mg PO TID
duloxetine 30 mg Capsule,Delayed Release(Dr/Ec)
30 mg PO DAILY
Held
torsemide 20 mg Tablet
40 mg PO DAILY
Hold Instructions: Resume on 02/28/25.
Discontinued
clopidogrel 75 mg Tablet
75 mg PO DAILY
Discharge Orders:
Discharge Patient (As Directed); Ordered 02/24/25
Ordered By: Susanna Rosen
Discharge Date and Time
Print Language: FRISIAN
--- NOTE | 2025-02-24 13:08 | FALL ---
Description of Fall:
Patient straight cathing himself on side of bed. Looked back at guard and purposely fell forward onto the floor. No head injury seen during fall.
Injuries Noted:
Pt. c/o of R knee pain.
Action Taken:
MD made aware and came to assess patient. No further actions taken.
Name of Provider Notified: Dr. Rosen
--- NOTE | 2025-02-24 13:15 | PTCARENOTE ---
Dr. Rosen assessed patient post fall. Dr. Rosen said okay to move forward with discharge. Patient and guards made aware of plan.
== END 2025-02-24 13:47 | DRG 813 ==
LOC: 2 NORTH 19:19
PROVIDERS: Clinical Nurse Specialist Family Health; Hospitalist; Internal Medicine; Nurse Practitioner Gerontology; Specialist; ADMITTING PHYSICIAN Hospitalist; ATTENDING PHYSICIAN Student in an Organized Health Care Education/Training Program; CONSULT PHYSICIAN Internal Medicine Infectious Disease; CONSULT PHYSICIAN Internal Medicine Medical Oncology; CONSULT PHYSICIAN Psychiatry & Neurology Neurology; CONSULT PHYSICIAN Surgery Vascular Surgery; EMERGENCY PHYSICIAN Emergency Medicine; OTHER PHYSICIAN Podiatrist Foot & Ankle Surgery
DX: D68.32 Hemorrhagic disorder due to extrinsic circulating anticoagulants (principal); L76.22 Postprocedural hemorrhage of skin and subcutaneous tissue following other procedure; D62 Acute posthemorrhagic anemia; N17.9 Acute kidney failure, unspecified; G61.81 Chronic inflammatory demyelinating polyneuritis; I13.0 Hypertensive heart and chronic kidney disease with heart failure and stage 1 through stage 4 chronic kidney disease, or unspecified chronic kidney disease; N30.00 Acute cystitis without hematuria; Z16.24 Resistance to multiple antibiotics; G61.0 Guillain-Barre syndrome; Z16.13 Resistance to carbapenem; L97.429 Non-pressure chronic ulcer of left heel and midfoot with unspecified severity; I25.10 Atherosclerotic heart disease of native coronary artery without angina pectoris; Z95.5 Presence of coronary angioplasty implant and graft; E10.65 Type 1 diabetes mellitus with hyperglycemia; Z79.4 Long term (current) use of insulin; E10.69 Type 1 diabetes mellitus with other specified complication; E10.22 Type 1 diabetes mellitus with diabetic chronic kidney disease; N18.30 Chronic kidney disease, stage 3 unspecified; I50.9 Heart failure, unspecified; K21.9 Gastro-esophageal reflux disease without esophagitis; Z89.511 Acquired absence of right leg below knee; Z82.49 Family history of ischemic heart disease and other diseases of the circulatory system; Z83.2 Family history of diseases of the blood and blood-forming organs and certain disorders involving the immune mechanism; Z83.3 Family history of diabetes mellitus; Z88.8 Allergy status to other drugs, medicaments and biological substances; Z88.5 Allergy status to narcotic agent; Z88.0 Allergy status to penicillin; Z88.6 Allergy status to analgesic agent; Z79.82 Long term (current) use of aspirin; Z79.02 Long term (current) use of antithrombotics/antiplatelets; Z79.899 Other long term (current) drug therapy; Z87.440 Personal history of urinary (tract) infections; B96.89 Other specified bacterial agents as the cause of diseases classified elsewhere; E78.00 Pure hypercholesterolemia, unspecified; G89.29 Other chronic pain; N32.0 Bladder-neck obstruction; T36.5X5A Adverse effect of aminoglycosides, initial encounter
CPT/HCPCS: 76770; 80048; 80053; 80170; 81003; 81015; 81099; 82570; 82728; 82947; 82962; 83516; 83520; 83540; 83550; 84155; 84156; 84165; 84484; 85014; 85018; 85025; 85027; 85610; 86038; 86160; 86335; 86850; 86900; 86901; 86920; 87040; 87070; 87077; 87086; 87186; 93005; 93306; 97163; 97530; 99285; J0714; J2916; P9016

== ENCOUNTER 2025-02-26 14:56 | Emergency (ER) | payer OTHER, SELFPAY ==
[2025-02-26 14:58] VITALS: BP 129/78
[2025-02-26 15:00] VITALS: BP 126/83
[2025-02-26 15:03] VITALS: BP 189/78; BMI 33.2
--- NOTE | 2025-02-26 15:45 | ED.GENMED ---
History of Present Illness
General
Chief Complaint: Skin Problem
Source: patient
Exam Limitations: none
Time Seen by Provider: 02/26/25 15:12
Nursing documentation reviewed up to this point in time: agreed with
History of Present Illness
History of Present Illness:
Patient to ED with complaint of bleeding from left 2nd toe amputation site. Amputation was completed in [place] in January. He was transported to [facility] where he has been since. He was admitted to our facility 2 times in the past month for bleeding
issues to his left foot. He reports that he has only been bleeding from amputation site but charting also indicates past bleeding from left medial wound site. He has a known history of picking at these wounds which has led to the bleeding. He
denies picking at wounds. Sutures were placed to bleeding amputation site during last admission, plavix was discontinued and he was [facility] to [facility]. He returns today saying he has been bleeding nonstop from site and that he is
concerned that he is anemic. He required transfusions during his last admission. Brought to ED accompanied by [facility] guards.
Past History
Past History
ED Past Medical History: CHF, HTN, IDDM, OR, Other (BKA right, Two toe amputation left, left heel debridement) and Other (Guillian [place], Chronic Inflammatory Demylinating Polyneuropathy)
ED Past Surgical History: Orthopedic (Right BKA, left two toe amputation, left heel debridement)
Social History
Tobacco: Non-smoker
Drug: None
Review of Systems
Review of Systems
Allergies reviewed?: Yes
All Other Systems: ROS reviewed and negative except as documented in HPI and ROS
Constitutional: Reports no symptoms
EENT: Reports no symptoms
Respiratory: Reports no symptoms
Cardiac: Reports no symptoms
ABD/GI: Reports no symptoms
: Reports no symptoms
Musculoskeletal: Reports joint pain (pain to distal left foot)
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
Neurological: Reports no symptoms
Psychiatric: Reports no symptoms
Phy Exam
General Physical Exam
General Presentation: well appearing and no apparent distress
General age: appears stated age
General Skin: warm
General Habitus: normal
General Mental: alert
Musculoskeletal Exam
Musculoskeletal Exam: full ROM and neuro vasc intact
Skin Exam
Skin Exam: normal color, warm/dry, no rash and other (left great toe and 2nd to amputation January 2025 Has had bleeding from amputation site, seen in ED 2 times this month. On arrival dressing with bloody discharge. No active bleeding from site.
Foot left unrapped x 45 minutes, no bleeding. Will redress and discharge back to facility)
Psychiatric Exam
Psychiatric Exam: normal mood/affect
Course
Orders/Labs/Results
Orders:
Orders
02/26/25 15:42
Complete Blood Count/With Diff Urgent
Comprehensive Metabolic Panel Urgent
02/26/25 16:31
Acetaminophen with Codeine [Tylenol #3] 1 tablet PO NOW STA
Abnormal Lab Results
02/26/25
15:42
WBC 12.0 H 10^3/uL
(4.8-10.8)
RBC 2.79 L 10^6/uL
(4.70-6.10)
Hgb 8.0 L g/dL
(13.0-18.0)
Hct 24.8 L %
(39.0-52.0)
MCHC 32.3 L g/dL
(33.0-37.0)
RDW 16.3 H %
(11.5-14.5)
Plt Count 452 H 10^3/uL
(130-400)
Abs Immat Gran (auto) 0.2 H 10^3/uL
(0-0.05)
Absolute Neuts (auto) 8.6 H 10^3/uL
(1.4-6.5)
Absolute Monos (auto) 0.8 H 10^3/uL
(0.1-0.6)
Immature Gran % 1.3 H %
(0-0.5)
Lymphocytes % 19.0 L %
(20.5-51.1)
BUN 30 H mg/dl
(9-20)
Creatinine 1.5 H mg/dL
(0.7-1.3)
Glucose 111 H mg/dl
(70-99)
Calcium 7.8 L mg/dl
(8.4-10.2)
AST 16 L U/L
(17-59)
Albumin 3.4 L g/dl
(3.5-5.0)
02/26/25 15:42
02/26/25 15:42
Vital Signs
Initial and Last Documented VS:
Initial Vital Signs
BP
129/78
02/26/25 14:58
Last Documented Vital Signs
Temp Pulse Resp BP Pulse Ox
97.7 F 88 18 136/73 99
02/26/25 15:03 02/26/25 15:03 02/26/25 15:03 02/26/25 17:00 02/26/25 17:15
*Pulse Oximetry
SaO2: 100
Oxygen Mode of Delivery: Room air
Patient hypoxic: no
*Critical Care Note
Total Time (30-74mins, 75-104mins- exclusive of procedures): Not Applicable
Update Note
Update Note:
Dressing removed from left foot. Left heel ulceration is dry, no bleeding noted, no evidence of infection. Left distal foot amputation site (great toe, 2nd toe) without active bleeding noted. Blood clot at site of 2nd toe amputation. Clot left in
place. Will leave foot undressed to assess for further bleeding.
Patient pulling leg under blanket and concern is that he is picking at wound. [place] removed and foot left open to air x 45 mintues. NO active bleeding noted. Will redress with bulky dressing with specific instructions on continuously monitoring
for self injury. Hgb 8.o. Recommend rechecking this week. NO evidence of infection to amputation site or left medial heel wouond. NO bleeding from medial heel wound.
ED Attending Note
-
Portions of this chart may have been created with voice recognition software.� Occasional wrong word or��sound alike� substitutions may have occurred due to the inherent limitations of voice recognition software.
Discharge Plan
Departure
Patient Disposition: [facility]
Date of Disposition: 02/26/25
Time of Disposition: 17:11
Patient with high blood pressure during this ER visit?: No
Discharge Problem:
Visit for wound check
Instructions: Wound Care (DC)
Prescriptions:
No Action
atorvastatin 80 mg Tablet
80 mg PO HS
carvedilol 25 mg Tablet
25 mg PO BID
torsemide 20 mg Tablet
40 mg PO DAILY
acetaminophen-codeine 300-30 mg Tablet
2 tab PO DIRECTED
Rx Instructions:
1 tab bid then 1 tab hs
aspirin 81 mg Tablet,Delayed Release (Dr/Ec)
81 mg PO DAILY
isosorbide mononitrate 60 mg Tablet Extended Release 24 Hr
60 mg PO DAILY
pantoprazole [Protonix] 40 mg Tablet,Delayed Release (Dr/Ec)
40 mg PO DAILY
insulin glargine [Lantus Solostar U-100 Insulin] 100 unit/mL (3 mL) Insulin Pen
30 unit SC BID
ranolazine 1,000 mg Tablet Extended Release 12 Hr
1,000 mg PO BID
Humulin R Regular U-100 Insuln 100 unit/mL Solution
1 sliding scale dose SC AC
gabapentin 300 mg Capsule
300 mg PO TID
duloxetine 30 mg Capsule,Delayed Release(Dr/Ec)
30 mg PO DAILY
docusate sodium 100 mg Capsule
100 mg PO BID Qty: 30 0RF
Referrals:
UNKNOWN,NO INTERVIEW [Family Provider]
Activity Restrictions/Additional Instructions:
Please keep left foot visible at all times. Continue with daily wound care and extra bulky dressing to prevent access to his wounds.
Interventions
Interventions:
*Risk Screen - Suicide Last Done: 02/26/25 15:03
*General Assessment Last Done: 02/26/25 15:03
*Neglect/Abuse Screening Last Done: 02/26/25 15:03
*ED- Fall Risk Assessment Last Done: 02/26/25 15:03
*ED COVID-19 Vaccine History Last Done: 02/26/25 15:03
*Nursing Disposition Last Done: 02/26/25 17:36
ED-Skin Assessment Last Done: 02/26/25 15:03
Discharge Date and Time
Discharge Date/Time: 02/26/25 17:37
Print Language: SAUDI ARABIAN
[2025-02-26 15:51] LABS: Hematocrit 24.8 % (39.0-52.0); Hemoglobin 8.0 g/dL (13.0-18.0); Mean Corp Hgb Conc. 32.3 g/dL (33.0-37.0); Mean Corpuscular Volume 88.9 fL (80.0-94.0); Nucleated Red Blood Cells % 0 % (-); Platelet Count 452 10^3/uL (130-400); Red Cell Dist. Width 16.3 % (11.5-14.5)
[2025-02-26 16:01] VITALS: BP 105/63
[2025-02-26 16:13] LABS: ALT (SGPT) 14 U/L (0-50); AST (SGOT) 16 U/L (17-59); Albumin 3.4 g/dl (3.5-5.0); Alkaline Phosphatase 72 U/L (38-126); Blood Urea Nitrogen 30 mg/dl (9-20); Calcium 7.8 mg/dl (8.4-10.2); Carbon Dioxide 29 mmol/L (22-30); Chloride 103 mmol/L (98-107); Estimated Creatinine Clearance 93 ml/min; Glucose 111 mg/dl (70-99); Potassium 4.5 mmol/L (3.5-5.1); Sodium 136 mmol/L (135-145); Total Protein 6.4 g/dl (6.3-8.2); eGFR > 60.00
[2025-02-26] MEDS: TYLENOL #3 1 TABLET PO (16:39)
[2025-02-26 17:00] VITALS: BP 136/73
== END 2025-02-26 17:37 ==
LOC: EMR 14:56
PROVIDERS: Nurse Practitioner; EMERGENCY PHYSICIAN Emergency Medicine
DX: Z48.00 Encounter for change or removal of nonsurgical wound dressing (principal); E10.621 Type 1 diabetes mellitus with foot ulcer; L97.429 Non-pressure chronic ulcer of left heel and midfoot with unspecified severity; E10.42 Type 1 diabetes mellitus with diabetic polyneuropathy; G61.81 Chronic inflammatory demyelinating polyneuritis; I11.0 Hypertensive heart disease with heart failure; I50.9 Heart failure, unspecified; I25.2 Old myocardial infarction; Z79.4 Long term (current) use of insulin; Z89.412 Acquired absence of left great toe; Z89.422 Acquired absence of other left toe(s); Z89.511 Acquired absence of right leg below knee
CPT/HCPCS: 99283; 80053; 85025

== ENCOUNTER 2025-02-27 15:48 | Emergency (ER) | payer OTHER, SELFPAY ==
[2025-02-27 16:38] VITALS: BP 133/87
[2025-02-27 16:51] VITALS: BP 133/87
[2025-02-27 16:57] VITALS: BMI 31.9
[2025-02-27 17:00] VITALS: BP 130/87
[2025-02-27 18:00] VITALS: BP 131/90
[2025-02-27 18:22] LABS: Hematocrit 25.3 % (39.0-52.0); Hemoglobin 8.1 g/dL (13.0-18.0); Mean Corp Hgb Conc. 32.0 g/dL (33.0-37.0); Mean Corpuscular Volume 89.4 fL (80.0-94.0); Nucleated Red Blood Cells % 0 % (-); Platelet Count 502 10^3/uL (130-400); Red Cell Dist. Width 16.8 % (11.5-14.5)
--- NOTE | 2025-02-27 18:35 | ED.MUSCINJ ---
HPI-Injury
General
Chief Complaint: Fall
Source: patient
Exam Limitations: none
Time Seen by Provider: 02/27/25 17:13
Nursing documentation reviewed up to this point in time: agreed with
History of Present Illness-Injury
Initial Injury comments:
Note:
CHIEF COMPLAINT(S)
Bleeding toe wound.
HISTORY OF PRESENT ILLNESS
The patient is a 29-year-old male who presented with concerns about a bleeding injury on his left toe and right stump amputations. The patient reported that the injury occurred 'a couple of days ago' but did not provide specific details on the
mechanism of injury. The wound has been bleeding intermittently since the incident. He mentioned there was an attempt to place a dressing on the wound, but it has not stopped the bleeding effectively. The patient expressed awareness of pain around
the affected area. It was noted that the patient is diabetic, which could be significant in the wound healing process.
CHRONIC MEDICAL CONDITIONS SIGNIFICANTLY AFFECTING CARE
Diabetes.
PHYSICAL EXAM
General: Alert, minimal acute distress. Accompanied by [facility] officers
Skin: Warm, dry, but notable for a bleeding wound on the toe with an ineffective previous dressing.
Head: Normocephalic, atraumatic.
Neck: Supple, trachea midline.
Eye Ears, nose, mouth, and throat: Oral mucosa moist.
Respiratory: Respirations are non-labored. No cough
Gastrointestinal: Abdomen nondistended.
Musculoskeletal: Right BKA with small wound. Bleeding was controlled. I did apply some Surgifoam, Kerlix, and Coban. Left toes show multiple amputations. There is scant bleeding at the OpSite. Again Surgifoam, Kerlix, and Coban was applied.
There is a healing DFU to the right heel which was not addressed at this time.
Neurological: Alert and oriented to person, place, time, and situation, No focal neurological deficit observed.
Psychiatric: Cooperative, appropriate mood & affect.
PLAN
1. Apply a medicated dressing to the toe wound to assist with hemostasis and promote healing.
2. Educate the patient on monitoring the wound for signs of infection and advising on promptly seeking medical attention if symptoms worsen.
3. Consider a diabetes management review to ensure that blood glucose levels are well controlled, which is critical in effective wound healing.
4. Follow-up visit to reassess wound healing and response to treatment.
DIFFERENTIAL DIAGNOSIS
The Differential Diagnosis includes, in no particular order and is not limited to:
1. Traumatic injury to the toe
2. Diabetic foot ulcer
3. Infection (local cellulitis)
4. Peripheral vascular disease-related wound
6. Nutritional deficiency-related wound healing impairment
7. Vascular insufficiency
Disposition:
SUMMARY OF ENCOUNTER
The patient, a 29-year-old male with a history of diabetes, presented to the emergency department with a bleeding wound on his left toe and pre-existing right stump amputations. He reported falling out of his wheelchair, causing the injury. The
patient has been seen multiple times recently for similar issues. He was accompanied by [facility] officers. The wound was bleeding intermittently, and there was minimal acute distress noted. Hemostasis was achieved by applying a
medicated dressing, and his hemoglobin, while low at 8.1, had improved since the previous day.
DISPOSITION
Discharge
ASSESSMENT
The bleeding wound on the left toe appears to be related to a fall and complicated by the patients diabetic status, which could delay healing.
PLAN
1. Apply medicated dressing to the bleeding wound to assist with hemostasis and healing.
2. Educate the patient on monitoring for signs of infection and seeking prompt medical attention if symptoms worsen.
3. Review and manage diabetes to ensure optimal wound healing.
4. Schedule a follow-up visit to reassess wound healing and response to treatment.
PATIENT EDUCATION AND COUNSELING
The patient was instructed on monitoring the wound for signs of infection and advised to seek medical attention if symptoms worsen.
FOLLOW-UP INSTRUCTIONS
The patient is advised to schedule a follow-up visit to reassess wound healing and response to treatment.
MEDICAL DECISION MAKING
- Number and Complexity of Problems Addressed: Chronic conditions affecting care include the patients diabetes and recurrent bleeding wounds. The differential diagnosis considered includes traumatic injury to the toe, diabetic foot ulcer, infection,
peripheral vascular disease-related wound, tinea pedis, nutritional deficiency-related wound healing impairment, vascular insufficiency, contact dermatitis, gout, and psoriatic arthritis affecting the toes.
- Data:
Category 1: Hemoglobin was 8.1, which is elevated since yesterday.
- Risk: Consideration of admission/observation was considered given the complexity and risk of the patients presenting complaint, exam findings, and underlying comorbidities. However, ultimately the patient is deemed safe for outpatient management
with close follow-up. Hemostasis was achieved, and there were no indications of acute life/organ-threatening processes. The patient agreed with the discharge plan and is reliable for follow-up.
DIAGNOSIS
Traumatic injury to the toe (ICD-10: S90.921) and Diabetic foot ulcer (ICD-10: E11.621)
Past History
Past History
ED Past Medical History: CHF, HTN, IDDM, [place], Other (BKA right, Two toe amputation left, left heel debridement) and Other (Guillian [place], Chronic Inflammatory Demylinating Polyneuropathy)
ED Past Surgical History: Orthopedic (Right BKA, left two toe amputation, left heel debridement)
Social History
Tobacco: Non-smoker
Drug: None
Phy Exam
Physical Exam
Physical Exam:
.
General Physical Exam
General Presentation: well appearing
Skin Exam
Skin Exam: other (See detailed physical exam)
Injury Course
Orders/Labs/Results
Orders:
Orders
02/27/25 18:13
Complete Blood Count/With Diff Urgent
Comprehensive Metabolic Panel Urgent
Abnormal Lab Results
02/27/25
18:13
WBC 12.6 H 10^3/uL
(4.8-10.8)
RBC 2.83 L 10^6/uL
(4.70-6.10)
Hgb 8.1 L g/dL
(13.0-18.0)
Hct 25.3 L %
(39.0-52.0)
MCHC 32.0 L g/dL
(33.0-37.0)
RDW 16.8 H %
(11.5-14.5)
Plt Count 502 H 10^3/uL
(130-400)
Abs Immat Gran (auto) 0.1 H 10^3/uL
(0-0.05)
Absolute Neuts (auto) 8.5 H 10^3/uL
(1.4-6.5)
Absolute Monos (auto) 1.2 H 10^3/uL
(0.1-0.6)
Immature Gran % 1.0 H %
(0-0.5)
Lymphocytes % 19.8 L %
(20.5-51.1)
02/27/25 18:13
*Pulse Oximetry
SaO2: 98
Oxygen Mode of Delivery: Room air
Patient hypoxic: no
*Critical Care Note
Total Time (30-74mins, 75-104mins- exclusive of procedures): Not Applicable
ED Attending Note
-
Portions of this chart may have been created with voice recognition software.� Occasional wrong word or��sound alike� substitutions may have occurred due to the inherent limitations of voice recognition software.
Discharge Plan
Departure
Patient Disposition: Alf
Date of Disposition: 02/27/25
Time of Disposition: 18:36
Discharge Problem:
Bleeding from wound, Diabetes
Instructions: Wound Care (DC), BLOOD PRESSURE
Prescriptions:
No Action
atorvastatin 80 mg Tablet
80 mg PO HS
carvedilol 25 mg Tablet
25 mg PO BID
torsemide 20 mg Tablet
40 mg PO DAILY
acetaminophen-codeine 300-30 mg Tablet
2 tab PO DIRECTED
Rx Instructions:
1 tab bid then 1 tab hs
aspirin 81 mg Tablet,Delayed Release (Dr/Ec)
81 mg PO DAILY
isosorbide mononitrate 60 mg Tablet Extended Release 24 Hr
60 mg PO DAILY
pantoprazole [Protonix] 40 mg Tablet,Delayed Release (Dr/Ec)
40 mg PO DAILY
insulin glargine [Lantus Solostar U-100 Insulin] 100 unit/mL (3 mL) Insulin Pen
30 unit SC BID
ranolazine 1,000 mg Tablet Extended Release 12 Hr
1,000 mg PO BID
Humulin R Regular U-100 Insuln 100 unit/mL Solution
1 sliding scale dose SC AC
gabapentin 300 mg Capsule
300 mg PO TID
duloxetine 30 mg Capsule,Delayed Release(Dr/Ec)
30 mg PO DAILY
docusate sodium 100 mg Capsule
100 mg PO BID Qty: 30 0RF
Referrals:
[facility] [Family Provider, General]
Activity Restrictions/Additional Instructions:
Patient is medically cleared for incarceration
Please put patient on strict fall precautions.
Interventions
Interventions:
*Risk Screen - Suicide Last Done: 02/27/25 16:53
*General Assessment Last Done: 02/27/25 16:53
*Neglect/Abuse Screening Last Done: 02/27/25 16:53
*ED- Fall Risk Assessment Last Done: 02/27/25 16:53
*ED COVID-19 Vaccine History Last Done: 02/27/25 16:53
ED-Musculoskeletal Assessment Last Done: 02/27/25 16:59
ED- Neurological Assessment Last Done: 02/27/25 16:59
ED-Skin Assessment Last Done: 02/27/25 16:59
Discharge Date and Time
Print Language: BELIZEAN
[2025-02-27 18:37] LABS: ALT (SGPT) 15 U/L (0-50); AST (SGOT) 17 U/L (17-59); Albumin 3.5 g/dl (3.5-5.0); Alkaline Phosphatase 83 U/L (38-126); Blood Urea Nitrogen 30 mg/dl (9-20); Calcium 8.7 mg/dl (8.4-10.2); Carbon Dioxide 28 mmol/L (22-30); Chloride 105 mmol/L (98-107); Estimated Creatinine Clearance 92 ml/min; Glucose 245 mg/dl (70-99); Potassium 4.2 mmol/L (3.5-5.1); Sodium 138 mmol/L (135-145); Total Protein 6.9 g/dl (6.3-8.2); eGFR > 60.00
== END 2025-02-27 19:01 ==
LOC: EMR 15:48
PROVIDERS: EMERGENCY PHYSICIAN Student in an Organized Health Care Education/Training Program
DX: S91.109A Unspecified open wound of unspecified toe(s) without damage to nail, initial encounter (principal); W05.0XXA Fall from non-moving wheelchair, initial encounter; Z89.422 Acquired absence of other left toe(s); E11.42 Type 2 diabetes mellitus with diabetic polyneuropathy; E11.621 Type 2 diabetes mellitus with foot ulcer; L97.419 Non-pressure chronic ulcer of right heel and midfoot with unspecified severity; I11.0 Hypertensive heart disease with heart failure; I50.9 Heart failure, unspecified; I25.2 Old myocardial infarction; Z79.4 Long term (current) use of insulin; Z89.511 Acquired absence of right leg below knee
CPT/HCPCS: 99283; 80053; 85025

== ENCOUNTER 2025-03-05 04:13 | Inpatient (IN) | payer OTHER, SELFPAY ==
[2025-03-04 22:06] VITALS: BP 118/65
[2025-03-04 22:07] VITALS: BP 118/65
[2025-03-04 22:16] VITALS: BMI 32.9
[2025-03-04 22:51] LABS: Hematocrit 18.6 % (39.0-52.0); Hemoglobin 6.0 g/dL (13.0-18.0); Mean Corp Hgb Conc. 32.3 g/dL (33.0-37.0); Mean Corpuscular Volume 87.3 fL (80.0-94.0); Nucleated Red Blood Cells % 0 % (-); Platelet Count 458 10^3/uL (130-400); Red Cell Dist. Width 16.2 % (11.5-14.5)
[2025-03-04 23:00] VITALS: BP 132/68
[2025-03-04 23:00] LABS: ALT (SGPT) 14 U/L (0-50); AST (SGOT) 14 U/L (17-59); Albumin 3.1 g/dl (3.5-5.0); Alkaline Phosphatase 79 U/L (38-126); Blood Urea Nitrogen 29 mg/dl (9-20); Calcium 8.5 mg/dl (8.4-10.2); Carbon Dioxide 27 mmol/L (22-30); Chloride 106 mmol/L (98-107); Estimated Creatinine Clearance 93 ml/min; Glucose 241 mg/dl (70-99); Potassium 4.4 mmol/L (3.5-5.1); Sodium 138 mmol/L (135-145); Total Protein 6.2 g/dl (6.3-8.2); eGFR > 60.00
[2025-03-05] VITALS (23 sets, daily range): BP systolic 100–139; BP diastolic 57–76; BMI 32.9; BMI 34.5
[2025-03-05] MEDS: DILAUDID 1 MG IV (01:07)
--- NOTE | 2025-03-05 01:19 | ED.GENMED ---
History of Present Illness
General
Chief Complaint: Skin Problem
Source: patient
Exam Limitations: none
Time Seen by Provider: 03/04/25 23:50
Nursing documentation reviewed up to this point in time: agreed with
History of Present Illness
History of Present Illness:
29-year-old male with history of CIDP, neurogenic bladder, Cobb Potts�, CHF, HTN, HLD, CO x 2 with stents, Sepsis, IDDM, CKD, GERD, anemia, anxiety/depression, right BKA, left 1st and 2nd toe amputation, left heel ulcer debridement, fracture right
femur repair, appendectomy, CAD status post PCI presents from half-way for significant bleeding from the wounds on his left foot.
The patient had surgery on January 21, where the middle toe and big toe were amputated due to osteomyelitis. The patient has a below-knee amputation on the right leg. Since the surgery on January 21, the patient has had varying degrees of non-stop
bleeding from the left foot since. He is incarcerated and has had to crawl around in his cell causing irritation and worsening bleeding from the wounds on left foot. Bleeding has increased over past 2 weeks and his Plavix and ASA were stopped 2
weeks ago. Today, crawling to get water in his cell, bleeding became much worse. He states he 'passed out' twice today. States he was found unresponsive twice and being awakened by half-way staff by ammonia salts and deep sternal rub. The patient
reports no significant abdominal pain but mentions a recent hospitalization for a urinary tract infection with antibiotic resistance.
Past History
Past History
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
ED Past Surgical History: Orthopedic (Right BKA, left two toe amputation, left heel debridement)
Social History
Tobacco: Non-smoker
Drug: None
Living: half-way
Review of Systems
Review of Systems
Allergies reviewed?: Yes
All Other Systems: ROS reviewed and negative except as documented in HPI and ROS
Constitutional: Reports fever
Respiratory: Denies trouble breathing
Cardiac: Denies chest pain
ABD/GI: Denies abdominal pain or nausea
: Denies dysuria
Skin: Reports other (Bleeding wounds left foot)
Phy Exam
Physical Exam
Physical Exam:
GENERAL: No acute distress. A&Ox3.
CONSTITUTIONAL: 101.1
EYES: clear, conjunctivae normal
ENMT: moist mucus membranes, Pharynx nl
RESPIRATORY: Regular respirations, nonlabored, lungs clear.
CARDIOVASCULAR: Regular rate and rhythm, no murmurs, no rubs.
GI: Soft, nontender, normal BS
Rectal: Light brown stool, hematest negative
MUSCULOSKELETAL: Moves with ease. Well perfused.
SKIN: Warm, dry, pale. Bloody dressing on left foot with ortho boot on. Boot removed, large open wound across the distal left foot, minimal bleeding at this time.
PSYCH: Normal mood and affect. Well kept, interactive and appropriate
NEUROLOGIC: Awake, alert and oriented. No focal neurological deficits
Sepsis
Sepsis Screening
Sepsis Assessment: Sepsis Ruled Out
Sepsis Screen
Sepsis Screen: Sepsis Ruled Out
Date: 03/05/25
Time: 15:42
Course
Orders/Labs/Results
Orders:
Orders
03/04/25 22:33
Complete Blood Count/With Diff Urgent
Comprehensive Metabolic Panel Urgent
03/04/25 23:03
Type And Crossmatch [Type+Screen] Urgent
03/05/25 00:46
HYDROmorphone [Dilaudid] 1 mg IV NOW STA
03/05/25 00:47
Urinalysis Reflex To Culture Urgent
CR Chest - 2 Views Urgent
Comment:
Reason For Exam: fever, anemia,
CR Foot - Left Min 3 Views Urgent
Comment:
Reason For Exam: hx toe amp, osteo, now bleeding profusely
03/05/25 00:48
* Blood Bank Products Urgent
Blood Bank Products: *Packed RBC Leuko(PRBC's)
Quantity: 2
Transfuse Today: Yes
Reason: Bleeding
IV Insert/Care/Rem.- Treatment PRN
03/05/25 01:09
Lactic Acid Q4H
Comment: CANCEL 2nd LACTIC ACID IF 1st LACTIC ACID IS LESS THAN 2
Blood Culture Q30M
SABAS Source: Blood/Venous
Specimen Description:
Blood Culture Q30M
SABAS Source: Blood/Venous
Specimen Description:
03/05/25 01:19
Acetaminophen [Tylenol] 1,000 mg PO NOW STA
03/05/25 03:43
Hydrocodone 7.5/APAP 325 [[place] 7.5/325] 1 tablet PO NOW STA
03/05/25 03:44
Admit/Transfer Patient As Directed
Co-Sign Provider:
Level of Care: Inpatient admission
Assign to:: Telemetry
Physician / Group: Stephen
Diagnosis: Acute Blood Loss Anemia, L Foot Wound
Reason for Telemetry: Arrhythmia
Date to Stop Telemetry: 03/08/25
Time to Stop Telemetry: 11:00
Reason for Hospitalization: Acute Blood Loss Anemia, L Foot Wound
Expected length of stay greater than two midnights?: Yes
ELOS- Estimated Length of Stay in days: 3
I certify the patient meets the requirements for IP care: Yes
03/05/25 03:45
PRN Pain Medication Management As Directed
May give lesser potent ordered pain med per pt: Yes
preference::
Protocol:: Medication orders for pain may be administered in a
manner that supports deferring to patient preference
when the pt is:
- Requesting an ordered lesser potent pain medication.
Least to most potent pain medications are defined
as: acetaminophen < NSAID < tramadol < opioids
(morphine, oxycodone, hydromorphone).
- Requesting a lesser dose of the same medication IF
ORDERED.
- Requesting a less intrusive route of administration
if both routes are prescribed by the provider (PO <
IV).
03/05/25 03:47
Code Status As Directed
Resuscitation Status: Full Code
03/05/25 04:00
Flush (0.9% Sodium Chloride) [Flush (Nss)] See Dose Instructions IV PER PROTOCOL
03/05/25 04:07
COVID-19 Antigen Urgent
Source: Nasal Swab
03/05/25 05:01
Lactic Acid Q4H
Comment: CANCEL 2nd LACTIC ACID IF 1st LACTIC ACID IS LESS THAN 2
03/05/25 Breakfast
2000 calorie (17 carb) Diabetic
At Your Request: Full Participation
03/05/25 06:24
HYDROmorphone [Dilaudid] 0.5 mg IV Q4HPRN PRN
03/05/25 07:07
Wound Culture [Wound/Abscess/Other Culture] Urgent
SABAS Source: Foot
Specimen Description: Left
Date Specimen was Collected: 03/05/25
Time Specimen was Collected: 07:05
03/05/25 07:20
Dextrose 50%-Water [Dextrose 50% Syringe] 12.5 grams IV [id number] PRN
Glucagon [GlucaGen] 1 mg IM PRN PRN
03/05/25 07:20
Consult Notification Routine
Specialty to Notify: Podiatry
Date consulting provider notified: 03/05/25
Time consulting provider notified: 08:07
Notified:: Provider
Comment: TT'd Physician On-Call(Tom)
PODIATRY CONSULT Routine
Consulting Provider: Silvian Whatley
Was physician already notified: No
Reason for consult: L Foot Wound / Bleeding
VTE Contraindication Routine
VTE Mechanical Device Contraindication: Treatment not tolerated
Pharmocologic Contraindication: Bleeding
Activity As Directed
Activity Level: Out of Bed- Chair
With Assistance
Bedside Glucose Monitoring As Directed
Frequency: AC&HS
Additional Instructions:: Change to q6h if pt on TPN, tube feeding or not eating
Bladder Scan As Directed
Follow Bladder Retention/Intermittent Cath Algorithm?: Yes
PRN if no void in __ hours: 6
Frequency: Per Retention Algorithm
If Bladder Scan Result >: 400
then:: Straight cath
I/O [Intake/ Output] As Directed
Frequency: Per unit guidelines
Straight Cath As Directed
Frequency: Per Retention Algorithm
Additional Instructions: straight cath as needed per acute urinary retention algorithm for 24 hrs
Additional Instructions: for bladder scan greater than 400 mL
Vital Signs As Directed
Frequency: Per unit guidelines
Oxygen Therapy [O2 Therapy] [RESP] Routine
Titrate/Wean O2 to maintain O2 sat greater than (%): 94
03/05/25 07:30
Insulin Aspart Corrective Mod [Novolog Flexpen-Moderate Resistance] See Protocol SC AC
03/05/25 08:00
Aspirin Low Dose EC [Aspir Low (Enteric Coated)] 81 mg PO DAILY
Carvedilol [Coreg] 25 mg PO BID
Duloxetine Delayed Release [Cymbalta Delayed Release] 30 mg PO DAILY
Gabapentin [Neurontin] 300 mg PO TID
ISOSORBIDE MONOnitrate ER [Imdur (Extended Release)] 60 mg PO DAILY
Pantoprazole [Protonix] 40 mg PO DAILY
Ranolazine Extended Release [Ranexa Extended Release] 1,000 mg PO BID
Torsemide [Demadex] 40 mg PO DAILY
insulin glargine [Lantus Solostar U-100 Insulin] 30 unit SC BID
03/05/25 08:14
Acetaminophen [Tylenol] 650 mg PO Q4HPRN PRN
Hydrocodone 7.5/APAP 325 [[place] 7.5/325] 1 tablet PO Q4HPRN PRN
03/05/25 08:53
Ferritin Routine
Iron Routine
Total Iron Binding Routine
03/05/25 22:00
Atorvastatin [Lipitor] 80 mg PO HS
Mirtazapine [Remeron] 15 mg PO HS
03/06/25 06:00
Basic Metabolic Panel IN AM
Complete Blood Count/No Diff IN AM
03/08/25 11:00
DC Protocol for Telemetry ONCE
Abnormal Lab Results
03/04/25 03/04/25
22:33 23:03
WBC 12.7 H 10^3/uL
(4.8-10.8)
RBC 2.13 L 10^6/uL
(4.70-6.10)
Hgb 6.0 L* D g/dL
(13.0-18.0)
Hct 18.6 L* %
(39.0-52.0)
MCHC 32.3 L g/dL
(33.0-37.0)
RDW 16.2 H %
(11.5-14.5)
Plt Count 458 H 10^3/uL
(130-400)
Abs Immat Gran (auto) 0.1 H 10^3/uL
(0-0.05)
Absolute Neuts (auto) 9.1 H 10^3/uL
(1.4-6.5)
Absolute Monos (auto) 1.5 H 10^3/uL
(0.1-0.6)
Immature Gran % 1.0 H %
(0-0.5)
Lymphocytes % 13.8 L %
(20.5-51.1)
Monocytes % 11.7 H %
(1.7-9.3)
BUN 29 H mg/dl
(9-20)
Creatinine 1.5 H mg/dL
(0.7-1.3)
Glucose 241 H mg/dl
(70-99)
AST 14 L U/L
(17-59)
Total Protein 6.2 L g/dl
(6.3-8.2)
Albumin 3.1 L g/dl
(3.5-5.0)
Crossmatch IS Only See Detail
03/04/25 22:33
03/04/25 22:33
Vital Signs
Initial and Last Documented VS:
Initial Vital Signs
Temp Pulse Resp BP Pulse Ox
101.1 F H 98 14 118/65 97
03/04/25 22:06 03/04/25 22:06 03/04/25 22:06 03/04/25 22:06 03/04/25 22:06
Last Documented Vital Signs
Temp Pulse Resp BP Pulse Ox
100.0 F 94 20 100/59 98
03/05/25 11:00 03/05/25 11:00 03/05/25 11:00 03/05/25 11:00 03/05/25 11:00
MDM/Problems Addressed
Differential Diagnosis Includes:
Recurrent osteomyelitis, bleeding significant from left foot wound, self-inflicted recurrent wound of left foot.
MDM/Problems Addressed:
29-year-old male with history of CIDP, neurogenic bladder, Yeni Potts�, CHF, HTN, HLD, CO x 2 with stents, Sepsis, IDDM, CKD, GERD, anemia, anxiety/depression, right BKA, left 1st and 2nd toe amputation, left heel ulcer debridement, fracture right
femur repair, appendectomy, CAD status post PCI presents from half-way for significant bleeding from the wounds on his left foot.
The patient had surgery on January 21, where the middle toe and big toe were amputated due to osteomyelitis. The patient has a below-knee amputation on the right leg. Since the surgery on January 21, the patient has had varying degrees of non-stop
bleeding from the left foot since. He is incarcerated and has had to crawl around in his cell causing irritation and worsening bleeding from the wounds on left foot. Bleeding has increased over past 2 weeks and his Plavix and ASA were stopped 2
weeks ago. Today, crawling to get water in his cell, bleeding became much worse. He states he 'passed out' twice today. States he was found unresponsive twice and being awakened by half-way staff by ammonia salts and deep sternal rub. The patient
reports no significant abdominal pain but mentions a recent hospitalization for a urinary tract infection with antibiotic resistance.
Febrile 101.1 po
CBC: WBC 12.7 with shift. Hgb 6.0
CMP: no clinically significant abnormality; Consistent with his CKD, Glucose 241
*Pulse Oximetry
SaO2: 97
Oxygen Mode of Delivery: Room air
Patient hypoxic: no
*Critical Care Note
Total Time (30-74mins, 75-104mins- exclusive of procedures): Not Applicable
ED Attending Note
-
Portions of this chart may have been created with voice recognition software.� Occasional wrong word or��sound alike� substitutions may have occurred due to the inherent limitations of voice recognition software.
Discharge Plan
Departure
Patient Disposition: Admit
Date of Disposition: 03/05/25
Time of Disposition: 02:25
Admit to: Med/Surg
Presentation/result/management discussed w/ accepting MD/DO: Hospitalist
Condition: Fair
Discharge Problem:
Acute blood loss anemia
Interventions
Interventions:
*Risk Screen - Suicide Last Done: 03/04/25 22:06
*General Assessment Last Done: 03/04/25 22:06
*Neglect/Abuse Screening Last Done: 03/04/25 22:06
*ED- Fall Risk Assessment Last Done: 03/04/25 22:16
*ED COVID-19 Vaccine History Last Done: 03/04/25 22:16
*Nursing Disposition Last Done: 03/05/25 07:29
ED-Skin Assessment Last Done: 03/04/25 22:16
Discharge Date and Time
Discharge Date/Time: 03/05/25 07:30
[2025-03-05] MEDS: TYLENOL 1000 MG PO (02:14)
[2025-03-05] MEDS: NORCO 7.5/325 1 TABLET PO ×4 (03:53→20:14)
--- NOTE | 2025-03-05 03:53 | HPS.HSE ---
Family Physician
-
Family Physician: Facility [facility]
Chief Complaint
-
L Foot Pain / Bleeding
History of Present Illness
Patient is a 29y M with PMH significant for DM-I, ASCVD, osteomyelitis and multiple amputations who presents to ED complaining of pain and bleeding of the L foot. Patient was hospitalized here 02/07 - 02/24 for similar complaints. He was seen at
that time by Podiatry And V[facility] Surgery. It is of note that patient was witnessed by staff to intentionally pick at sutures / wounds - presumably to incite further bleeding.
Patient presents to the ED today after having dressings changed 4 times at long term. He states that he has aggravated the wound by having to crawl across his cell.
His L foot again shows pulled loose sutures with oozing blood and poorly healed amputation site.
His initial digital amputation was performed 01/21/25 in [place].
Medical History
Past Medical History
Past Medical History: Reports Other
Additional Past Medical History:
IDDM
Osteomyelitis
S/P left hallux and 2nd digit amputation due to osteomyelitis and debridement of left heel ulcer 01/21/25
CAD status post PCI
Hypertension
CHF
Guillian Potts�
GERD.
Past Surgical History: Reports Other
Additional Past Surgical History:
Right BKA
s/p Left 1st and 2nd digit amputation due to osteomyelitis and debridement of left heel ulcer 01/21/25
PTCA with Stent
Social History
Tobacco: Non-smoker
Alcohol: None
Drug: None
Personal: Single
Living: Custod[facility] ([facility])
Employment: Disabled
Family History
Family History: Other (Mother factor V Leiden, CAD/CABG, DM 2 55, father living history CAD multiple stents, DM 2, 4 half sisters 1 with history of factor V Leiden)
Allergies / Home Medications
Allergies reflects when Allergies were last updated in [facility].
Home Medications with original date entered in [facility]
Allergy/Medication List:
Allergies
Allergy/AdvReac Type Severity Reaction Status Date / Time
ibuprofen Allergy Unknown Verified 03/04/25 22:04
oxycodone Allergy Unknown Verified 03/04/25 22:04
Penicillins Allergy Unknown/tolerated Verified 03/04/25 22:04
amoxicillin
silver Allergy Hives Verified 03/04/25 22:04
silver nitrate Allergy Hives Verified 03/04/25 22:04
sweet potato Allergy Unknown Verified 03/04/25 22:04
tuna oil Allergy Unknown Verified 03/04/25 22:04
turkey Allergy Unknown Verified 03/04/25 22:04
Home Medications
aspirin 81 mg tablet,delayed release 81 mg PO DAILY Blood Clot Prevention/Tx 02/02/25
atorvastatin 80 mg tablet 80 mg PO HS High Cholesterol 02/02/25
carvedilol 25 mg tablet 25 mg PO BID Heart Failure 02/02/25
insulin glargine 100 unit/mL (3 mL) subcutaneous pen (Lantus Solostar U-100 Insulin) 30 unit SC BID Diabetes 02/02/25
isosorbide mononitrate 60 mg tablet,extended release 24 hr 60 mg PO DAILY Heart Disease/Condition 02/02/25
pantoprazole 40 mg tablet,delayed release (Protonix) 40 mg PO DAILY Gastrointestinal Issue 02/02/25
ranolazine 1,000 mg tablet,extended release,12 hr 1,000 mg PO BID Heart Disease/Condition 02/02/25
duloxetine 30 mg capsule,delayed release 30 mg PO DAILY Mental Health/Anxiety 02/07/25
gabapentin 300 mg capsule 300 mg PO TID NEUROPATHIC PAIN 02/07/25
insulin regular human 100 unit/mL injection solution (Humulin R Regular U-100 Insulin) 1 sliding scale dose SC AC Diabetes 02/07/25
docusate sodium 100 mg capsule 100 mg PO BID #30 caps 02/21/25
clopidogrel 75 mg tablet 75 mg PO DAILY 03/05/25
doxycycline monohydrate 100 mg capsule 100 mg PO BID 03/05/25
mirtazapine 15 mg tablet 15 mg PO HS 03/05/25
sulfamethoxazole 800 mg-trimethoprim 160 mg tablet (Bactrim DS) 1 tab PO BID 03/05/25
torsemide 20 mg tablet 40 mg PO DAILY 03/05/25
Review of Systems
-
History Source: Patient
A 12 point ROS was completed and negative except as noted: Yes
Constitutional: Reports Fever and Fatigue; Denies Chills
EENT: Denies Sore Throat
Respiratory: Denies Cough or Trouble Breathing
Cardiac: Denies Chest Pain or Palpitations
Abdomen/GI: Denies Abdominal Pain, Nausea, Vomiting or Diarrhea
: Reports Difficulty Voiding; Denies Dysuria
Musculoskeletal: Reports Joint Pain and Edema
Skin: Reports Other (bleeding / wounds)
Physical Exam
Vital Signs
Vital Signs
Temp Pulse Resp BP Pulse Ox
98.9 F 101 18 121/66 97
03/05/25 03:03 03/05/25 03:30 03/05/25 03:30 03/05/25 03:00 03/05/25 03:30
Physical Exam
General: Other (29y M in mild distress intermittently due to pain.)
HEENT: Moist mucous membranes and PERRLA
Respiratory: Clear; No Wheezes, Rales or Rhonchi
Cardiac: S1/S2 and Regular Rhythm; No Murmur
GI: Soft, Non Tender, Non Distended and Normal Bowel Sounds
Musculoskeletal: Other (s/p R BKA. Superficial abrasion over BKA stump. L foot with open / non-healing wound bed at 1st / 2nd digit amputation site. Suture material hanging loose. Oozing / sanguinous discharge.)
Neuro: AO x 3
Laboratory Results
-
03/04/25 22:33
03/04/25 22:33
Laboratory Results
Lactic Acid 0.9 mmol/L (0.7-2.0) 03/05/25 01:09
Total Bilirubin 0.4 mg/dl (0.2-1.3) 03/04/25 22:33
AST 14 U/L (17-59) L 03/04/25 22:33
ALT 14 U/L (0-50) 03/04/25 22:33
Alkaline Phosphatase 79 U/L (38-126) 03/04/25 22:33
Impression/Plan
-
A/P: Patient is a 29y M with PMH significant for DM-I, ASCVD and osteomyelitis s/p digital amputations who presents to ED from local long term complaining of L foot pain and bleeding.
Non-Healing Left Foot Wound with Bleeding
Acute Blood Loss Anemia secondary to the above
Chronic Anemia
- Admit for further evaluation and treatment.
- Monitor patient closely for any evidence of manipulation / 'picking' at wound(s).
- Podiatry re-evaluation for local care.
- Transfusing PRBCs in the ED for Hgb = 6.
- Hold Plavix (was restarted since last admission - according to long term SEP). Would probably remain off of this.
- Continue ASA for now.
Fever
- Unclear etiology. Follow fever curve. Follow-up culture data.
- Had UTI during most recent visit complicated by abx resistance.
- Check COVID status.
- Monitor for any new symptoms of focal infection.
- Was on doxycycline + Bactrim recently at long term. Hold further abx acutely.
ASCVD
- Stable. No complaints of chest pain, dyspnea, etc.
- Continue ASA as noted above. Discontinue Plavix.
DM-I
- Stable. Continue basal : bolus insulin regimen.
- Follow glucose and cover with SSI as needed.
- A1C = 8.1% last admission.
CKD III
- SCr improving from recent admission / AMBER.
- Hold / discontinue Bactrim.
- Avoid nephrotoxic agents.
- Follow for changes in SCr.
CIDP
- Stable. Continue current med regimen.
- Previously received PLEX in [place] - need OP follow-up to arrange similar treatments locally.
DVT Prophylaxis: Unable to tolerate SCDs. Holding pharmacologic prophylaxis due to bleeding.
Code Status: Full
[2025-03-05] MEDS: FLUSH (NSS) 1 FLUSH IV (03:59)
[2025-03-05 04:36] LABS: COVID-19 Antigen Negative (Negative)
[2025-03-05] MEDS: DILAUDID 0.5 MG IV ×4 (06:29→22:21)
--- NOTE | 2025-03-05 07:34 | W.PN.HOSP.TC ---
Today's Communication/Plan
-
Received transfusion in ED, monitor h/h
Podiatry consult, wound care
Monitor fever curve off abx
Assessment / Plan
Assessment / Plan
A/P: Patient is a 29y M with PMH significant for DM-I, ASCVD and osteomyelitis s/p digital amputations who presents to ED from local snf complaining of L foot pain and bleeding.
Non-Healing Left Foot Wound with Bleeding
XR with large soft tissue wound and severe diffuse soft tissue swelling as well as severe PAD
- Podiatry re-evaluation for local care. D/w Dr. Santos, advised to reconsult Dr. Bucio as pt is known to them
wound care consult
Acute Blood Loss Anemia secondary to the above
Chronic Anemia
Hgb 6, s/p 2 unit PRBC in ED--> repeat 6.8 immediately after second transfusion.
- discontinue plavix
monitor h/h
Fever - improving
- Unclear etiology. XR does not mention OM. Follow fever curve. Follow-up culture data.
down to 100F
- Had UTI during most recent visit complicated by abx resistance.
COVID negative
no PNA on CXR
could be from foot wound, may need wound cx
- Monitor for any new symptoms of focal infection.
- Was on doxycycline + Bactrim recently at snf. Hold further abx acutely.
ASCVD
- Stable. Continue ASA as noted above. Discontinue Plavix.
DM
- Stable. Continue basal : bolus insulin regimen.
- Follow glucose and cover with SSI as needed.
- A1C = 8.1% last admission.
CKD III
- SCr improving from recent admission / AMBER.
- Hold / discontinue Bactrim.
- Avoid nephrotoxic agents.
- Follow for changes in SCr.
CIDP
- Stable. Continue current med regimen.
- Previously received PLEX in [place] - need OP follow-up to arrange similar treatments locally.
DVT Prophylaxis: Unable to tolerate SCDs. Holding pharmacologic prophylaxis due to bleeding.
Code Status: Full
Anticipated Discharge: 24 - 48 hours
Subjective/Interval History
-
Date of Service: March 05, 2025
Still having pain in his left foot. All questions answered as able.
Objective Data
-
Labs:
Laboratory Results
03/04/25
22:33
WBC 12.7 H
Hgb 6.0 L* D
Hct 18.6 L*
Plt Count 458 H
Sodium 138
Potassium 4.4
Chloride 106
Carbon Dioxide 27
BUN 29 H
Creatinine 1.5 H
Glucose 241 H
Calcium 8.5
Total Bilirubin 0.4
AST 14 L
ALT 14
Alkaline Phosphatase 79
Vital Signs:
Vital Signs
Temp Pulse Resp BP Pulse Ox
100.0 F 92 16 120/70 97
03/05/25 07:03 03/05/25 07:03 03/05/25 07:03 03/05/25 07:03 03/05/25 07:03
I&O
03/04/25 03/05/25 03/06/25
06:59 06:59 06:59
Intake Total 500 / 500
Balance 500 / 500
Review of Systems
-
All other systems: Reviewed and negative
Physical Exam
-
General: No Apparent Distress and Obese
HEENT: Moist Mucous Membranes, Anicteric and PERRLA
Respiratory: Clear to Auscultation; Negative Wheezes, Rales or Rhonchi
Cardiac: Regular Rhythm and S1/S2; Negative Murmur, Rub or Gallop
GI: Soft, Nontender, Nondistended and Normal Bowel Sounds
Musculoskeletal: Edema, Left Lower Extrem and Other (R BKA)
Skin: Warm, Dry, Ulcers (L foot in dressing c/d/i) and Lesions (multiple small wounds in various stages of healing on BLE); Negative Rash
Neuro: Awake and AO x 3
Hematologic / Lymphatic: No Lymphadenopathy
Psych: Calm
Data Reviewed
-
Diagnostic Radiology: Report Reviewed by me and Discussed with Physician
Labs: Labs Reviewed by me and Discussed with Patient
--- NOTE | 2025-03-05 08:32 | CM ---
Reviewed chart notes. Patient is from [facility]. Patient has a walker and wheelchair. CM continues to be available to patient/family and is monitoring medical plan for needs at discharge.
Plan: Discharge back to [facility] when medically stable.
Report: [phone]
[2025-03-05] MEDS: COREG 25 MG PO ×2 (08:47→20:13)
[2025-03-05] MEDS: IMDUR (EXTENDED RELEASE) 60 MG PO (08:47)
[2025-03-05] MEDS: NEURONTIN 300 MG PO ×3 (08:47→22:19)
[2025-03-05] MEDS: CYMBALTA DELAYED RELEASE 30 MG PO (08:47)
[2025-03-05] MEDS: RANEXA EXTENDED RELEASE 1000 MG PO ×2 (08:48→20:14)
[2025-03-05] MEDS: ASPIR LOW (ENTERIC COATED) 81 MG PO (08:48)
[2025-03-05] MEDS: DEMADEX PO (08:49)
[2025-03-05] MEDS: PROTONIX 40 MG PO (08:49)
[2025-03-05] MEDS: NOVOLOG FLEXPEN-MODERATE RESISTANCE 7 UNITS SC (08:51)
[2025-03-05] MEDS: LANTUS 0.3 UNITS SC ×2 (08:52→22:12)
[2025-03-05 09:24] LABS: Hematocrit 21.2 % (39.0-52.0); Hemoglobin 6.8 g/dL (13.0-18.0)
[2025-03-05 09:44] LABS: Iron 20 ug/dl (49-181)
[2025-03-05 09:54] LABS: Total Iron Binding Capacity 178 ug/dl (261-462)
[2025-03-05 10:16] LABS: Ferritin 352.0 ng/ml (17.9-464.0)
[2025-03-05] MEDS: NOVOLOG FLEXPEN-MODERATE RESISTANCE 5 UNITS SC (13:25)
--- NOTE | 2025-03-05 13:57 | W.PN.UPDATE ---
Update Note
Progress Note Update
29 M presents with dehiscence of previous amputation site (toes 1,2) and medial heel wound.
- will obtain MRI
- LWC : saline wet to dry dressing with SHILPI
- continue abx
- NWB LLE
- plan for OR debridement Friday
[2025-03-05 15:17] LABS: Hematocrit 19.2 % (39.0-52.0); Hemoglobin 6.3 g/dL (13.0-18.0)
[2025-03-05 16:59] LABS: Urine Character Slightly Cloudy (Clear)
[2025-03-05] MEDS: NOVOLOG FLEXPEN-MODERATE RESISTANCE 3 UNITS SC (17:03)
[2025-03-05 17:19] LABS: Urine Red Blood Cell 0-2 /HPF (0-2)
[2025-03-05 22:14] LABS: Hematocrit 22.1 % (39.0-52.0); Hemoglobin 7.2 g/dL (13.0-18.0)
[2025-03-05] MEDS: REMERON 15 MG PO (22:19)
[2025-03-05] MEDS: LIPITOR 80 MG PO (22:21)
[2025-03-05] MEDS: FLUSH (NSS) 2 FLUSH IV (22:25)
--- NOTE | 2025-03-05 22:34 | PTCARENOTE ---
accucheck 305. not transmitting to system. Covering provider said close enough for coverage, but re-check in 2 hours.
--- NOTE | 2025-03-05 22:42 | PTCARENOTE ---
Hgb 7.2, Advised covering provider.
[2025-03-06] MEDS: NOVOLOG FLEXPEN 5 UNITS SC (00:29)
[2025-03-06 02:29] LABS: Glucose - Point of Care 285 mg/dl (70-99)
[2025-03-06 03:05] VITALS: BP 138/76
[2025-03-06] MEDS: NORCO 7.5/325 1 TABLET PO ×5 (04:14→21:43)
--- NOTE | 2025-03-06 05:19 | PTCARENOTE ---
Patient straight catheterized himself for 1300mls of ye urine.
[2025-03-06 06:00] VITALS: BMI 35.1
[2025-03-06 06:27] LABS: Hematocrit 22.9 % (39.0-52.0); Hemoglobin 7.2 g/dL (13.0-18.0); Mean Corp Hgb Conc. 31.4 g/dL (33.0-37.0); Mean Corpuscular Volume 87.4 fL (80.0-94.0); Platelet Count 416 10^3/uL (130-400); Red Cell Dist. Width 16.9 % (11.5-14.5)
[2025-03-06 06:33] LABS: Blood Urea Nitrogen 27 mg/dl (9-20); Calcium 8.5 mg/dl (8.4-10.2); Carbon Dioxide 27 mmol/L (22-30); Chloride 105 mmol/L (98-107); Estimated Creatinine Clearance 77 ml/min; Glucose 262 mg/dl (70-99); Potassium 4.7 mmol/L (3.5-5.1); Sodium 137 mmol/L (135-145); eGFR 59.44
[2025-03-06 07:15] VITALS: BP 154/84
--- NOTE | 2025-03-06 07:36 | W.PN.HOSP.TC ---
Addendum entered and electronically signed by Khloe Mariscal MD 03/06/25 12:51:
update: positive BCx may be contaminant, possibly diptheroids, rechecking BCx, holding off broad spec abx going back to cefazolin pending repeat Cx
Original Note:
Today's Communication/Plan
-
Hgb improved
Continue wound care. Appreciate podiatry recs for OR on Friday. MRI pending.
empiric abx vanc/cefepime
torsemide for LE swelling, monitor Cr
Assessment / Plan
Assessment / Plan
A/P: Patient is a 29y M with PMH significant for DM-I, ASCVD and osteomyelitis s/p digital amputations who presents to ED from local halfway complaining of L foot pain and bleeding.
Non-Healing Left Foot Wound with Bleeding
XR with large soft tissue wound and severe diffuse soft tissue swelling as well as severe PAD
- Podiatry re-evaluation for local care.
MRI pending
OR for debridement on Friday
wound care consulted
wound cx pending
BCx NGTD
empiric abx vanc/cefepime
Positive blood cultures
2/2 Gram positive bacilli
empiric abx as above
Acute Blood Loss Anemia secondary to the above
Chronic Anemia
Hgb 6, s/p 2 unit PRBC in ED--> now improved to 7.2
- discontinued plavix
monitor h/h
Fever - improving
- Unclear etiology. XR does not mention OM. Follow fever curve. Follow-up culture data. + Blood Cx for GPB
Now afebrile
- Had UTI during most recent visit complicated by abx resistance.
COVID negative
no PNA on CXR
could be from foot wound, f/u wound cx. MRI pending. Empiric abx as above
- Was on doxycycline + Bactrim recently at halfway.
ASCVD
- Stable. Continue ASA as noted above. Discontinue Plavix.
DM
- BG uncontrolled. Lantus 30 units BID, lispro 8 units TID-meals, SSI high
- A1C = 8.1% last admission.
CKD III
- SCr improving from recent admission / AMBER. Pt reports his b/l Cr is 1.1
1.5 on discharge last admission but has not resolved.
- Hold / discontinue Bactrim.
- Avoid nephrotoxic agents.
- Follow for changes in SCr.
BLE edema
resume torsemide but monitor Cr closely
CIDP
- Stable. Continue current med regimen.
- Previously received PLEX in [place] - need OP follow-up to arrange similar treatments locally.
DVT Prophylaxis: Unable to tolerate SCDs. Holding pharmacologic prophylaxis due to bleeding.
Code Status: Full
Anticipated Discharge: 24 - 48 hours
Subjective/Interval History
-
Date of Service: March 06, 2025
Pt still having a lot of pain in his leg. Concerned about BLE swelling but did not take torsemide because it had been held at the halfway due to his kidney fxn. Having normal UOP
Objective Data
-
Labs:
Laboratory Results
03/05/25 03/06/25 03/06/25
22:09 05:37 05:37
WBC 8.9
Hgb 7.2 L 7.2 L Cancelled
Hct 22.1 L 22.9 L
Plt Count
Sodium
Potassium
Chloride
Carbon Dioxide
BUN
Creatinine
Glucose
Calcium
03/06/25
05:37
WBC
Hgb
Hct Cancelled
Plt Count 416 H
Sodium 137
Potassium 4.7
Chloride 105
Carbon Dioxide 27
BUN 27 H
Creatinine 1.6 H
Glucose 262 H
Calcium 8.5
Vital Signs:
Vital Signs
Temp Pulse Resp BP Pulse Ox
98.2 F 86 17 138/76 96
03/06/25 03:05 03/06/25 03:05 03/06/25 03:05 03/06/25 03:05 03/06/25 03:05
I&O
03/05/25 03/06/25 03/07/25
06:59 06:59 06:59
Intake Total 500 / 500 2540 / 2540
Output Total 2200 / 2200
Balance 500 / 500 340 / 340
Review of Systems
-
All other systems: Reviewed and negative
Physical Exam
-
General: No Apparent Distress and Obese
HEENT: Moist Mucous Membranes, Anicteric and PERRLA
Respiratory: Clear to Auscultation; Negative Wheezes, Rales or Rhonchi
Cardiac: Regular Rhythm and S1/S2; Negative Murmur, Rub or Gallop
GI: Soft, Nontender, Nondistended and Normal Bowel Sounds
Musculoskeletal: Edema, Left Lower Extrem and Other (R BKA)
Skin: Warm, Dry, Ulcers (L foot in dressing c/d/i) and Lesions (multiple small wounds in various stages of healing on BLE); Negative Rash
Neuro: Awake and AO x 3
Hematologic / Lymphatic: No Lymphadenopathy
Psych: Calm
Data Reviewed
-
Diagnostic Radiology: Report Reviewed by me and Discussed with Physician
Labs: Labs Reviewed by me and Discussed with Patient
[2025-03-06 08:02] LABS: Glucose - Point of Care 264 mg/dl (70-99)
[2025-03-06] MEDS: NOVOLOG FLEXPEN-MODERATE RESISTANCE 5 UNITS SC (08:33)
[2025-03-06] MEDS: LANTUS 0.3 UNITS SC ×2 (08:34→21:18)
[2025-03-06] MEDS: ASPIR LOW (ENTERIC COATED) 81 MG PO (08:35)
[2025-03-06] MEDS: CYMBALTA DELAYED RELEASE 30 MG PO (08:35)
[2025-03-06] MEDS: IMDUR (EXTENDED RELEASE) 60 MG PO (08:35)
[2025-03-06] MEDS: RANEXA EXTENDED RELEASE 1000 MG PO ×2 (08:35→19:59)
[2025-03-06] MEDS: NEURONTIN 300 MG PO ×3 (08:35→21:18)
[2025-03-06] MEDS: PROTONIX 40 MG PO (08:35)
[2025-03-06] MEDS: COREG 25 MG PO ×2 (08:35→19:59)
[2025-03-06] MEDS: ANCEF 5 IV (08:42)
[2025-03-06 11:00] VITALS: BP 130/67
[2025-03-06] MEDS: DILAUDID 0.5 MG IV ×3 (11:08→19:59)
[2025-03-06] MEDS: DEMADEX 40 MG PO (11:12)
[2025-03-06] MEDS: NOVOLOG FLEXPEN 8 UNITS SC ×2 (11:49→16:55)
[2025-03-06] MEDS: NOVOLOG FLEXPEN-HIGH RESISTANCE 10 UNITS SC (11:50)
[2025-03-06] MEDS: NOVOLOG FLEXPEN-MODERATE RESISTANCE SC (11:53)
--- NOTE | 2025-03-06 13:58 | PHA.VAN.IN ---
Assessment
- Assessment
Renal Function: SCR Appears Elevated from baseline (per notes, patient reports baseline ~1.1 but has been elevated since prior discharge)
Concomitant Antimicrobials: cefazolin
Plan
- Plan
Initial / Loading Dose: 2000mg - administration pending
Maintenance Regimen: dosing by level
Monitoring: random 03/07 06
Pharmacokinetics Vancomycin I
- -
Patient Age: 29
Patient Sex: Male
Vancomycin Day #: 1
Indication: Diabetic Foot
Requesting Provider: Dr. Mariscal
Pertinent Antimicrobial Allergies:
penicillins - unknown; tolerated amoxicillin
Height / Weight:
Height 5 ft 7 in
Actual Weight 101.65 kg
Pertinent Past Medical History: BMI ~35, DM, PAD, CKD 3 (baseline ~1.1)
- Vital Signs / Lab Results
Temp Pulse Resp BP Pulse Ox
98.1 F 85 20 130/67 95
03/06/25 11:00 03/06/25 11:00 03/06/25 11:00 03/06/25 11:00 03/06/25 11:00
Lab Results - Hematology
03/04/25 03/06/25
22:33 05:37
WBC 12.7 H 8.9
Lab Results - Chemistry
03/04/25 03/06/25
22:33 05:37
BUN 29 H 27 H
Creatinine 1.5 H 1.6 H
Estimated Creat Clear 93 77
Albumin 3.1 L
03/05/25 03/05/25
01:09 05:01
Lactic Acid 0.9 1.3
Lab Results - Urine
03/05/25
16:28
Urine Nitrite (Reflex) Negative
Leukocyte Esterase Rfl 1+ A
Urine WBC (Reflex) 6-10
Ur Squamous Epith Cells 3-5
Urine Bacteria (Reflex) Moderate A
Microbiology Results
03/05/25 07:07 Wound Culture - Preliminary
Foot - Left Gram Stain - Preliminary
03/05/25 01:09 Blood Culture - Preliminary
Blood/Venous Positive culture in progress
Gram Stain - Preliminary
03/05/25 01:09 Blood Culture - Preliminary
Blood/Venous Positive culture in progress
Gram Stain - Preliminary
[2025-03-06] MEDS: VANCOCIN 540 MG IV (14:23)
[2025-03-06 15:10] VITALS: BP 119/73
[2025-03-06] MEDS: NOVOLOG FLEXPEN-HIGH RESISTANCE 4 UNITS SC (16:56)
[2025-03-06] MEDS: ANCEF 10 IV ×2 (17:24→23:55)
[2025-03-06 19:00] VITALS: BP 141/81
[2025-03-06] MEDS: REMERON 15 MG PO (21:19)
[2025-03-06] MEDS: LIPITOR 80 MG PO (21:19)
[2025-03-06 23:17] VITALS: BP 124/69
[2025-03-07] MEDS: DILAUDID 0.5 MG IV ×6 (00:05→22:37)
[2025-03-07 03:14] VITALS: BP 124/56
[2025-03-07] MEDS: NORCO 7.5/325 1 TABLET PO ×4 (03:33→20:58)
[2025-03-07] MEDS: TYLENOL 325 MG PO (03:33)
[2025-03-07 05:25] VITALS: BMI 38.2
[2025-03-07 07:51] VITALS: BP 124/74
[2025-03-07 08:14] LABS: Hematocrit 23.3 % (39.0-52.0); Hemoglobin 7.6 g/dL (13.0-18.0)
[2025-03-07 09:01] LABS: Glucose - Point of Care 219 mg/dl (70-99)
[2025-03-07 09:01] LABS: Glucose - Point of Care 305 mg/dl (70-99)
[2025-03-07 09:01] LABS: Glucose - Point of Care 307 mg/dl (70-99)
[2025-03-07 09:01] LABS: Glucose - Point of Care 308 mg/dl (70-99)
[2025-03-07 09:01] LABS: Glucose - Point of Care 318 mg/dl (70-99)
[2025-03-07 09:01] LABS: Glucose - Point of Care 319 mg/dl (70-99)
[2025-03-07 09:01] LABS: Glucose - Point of Care 217 mg/dl (70-99)
[2025-03-07 09:01] LABS: Glucose - Point of Care 278 mg/dl (70-99)
[2025-03-07 09:01] LABS: Glucose - Point of Care 227 mg/dl (70-99)
[2025-03-07] MEDS: LANTUS 0.3 UNITS SC ×2 (09:03→21:53)
--- NOTE | 2025-03-07 09:04 | PHA.VAN.FU ---
Vancomycin Assessment / Plan
- Assessment
Renal Function: SCR Increasing
WBC's are: WNL
In the past 24 hrs, patient has been: Febrile (Tmax: 100.9 (03/07/25 at 3:14 AM))
Concomitant Antimicrobials: Cefazolin 2 gram IV q8h
- Assessment - Therapeutic Drug Monitoring
Random Level: 14.6 (03/07 at 7:33 AM) - ~15H after 2 gram loading dose
- Dosing Plan
Dosing by Level: Re-dose today (Vancomycin 1750 mg x 1 dose)
Patient in AMBER (BL SCr: 1.1), continue dose by level regimen until renal function is stable
- Monitoring Plan
Random Level: 03/08 at 06:00
- Follow Up
Pharmacy will continue to follow.
Vancomycin Follow UP
- -
Patient Age: 29
Patient Sex: Male
Vancomycin Day #: 2
Indication: Diabetic Foot
Requesting Provider: Dr. Mariscal
Pertinent Antimicrobial Allergies:
penicillins - unknown; tolerated amoxicillin
Height / Weight:
Height 5 ft 7 in
Actual Weight 110.495 kg
Pertinent Past Medical History: BMI ~35, DM, PAD, CKD 3 (baseline ~1.1)
- Vital Signs / Lab Results
Temp Pulse Resp BP Pulse Ox
98.0 F 92 16 124/74 96
03/07/25 07:51 03/07/25 07:51 03/07/25 07:51 03/07/25 07:51 03/07/25 07:51
Lab Results - Hematology
03/04/25 03/06/25
22:33 05:37
WBC 12.7 H 8.9
Lab Results - Chemistry
03/04/25 03/06/25
22:33 05:37
BUN 29 H 27 H
Creatinine 1.5 H 1.6 H
Estimated Creat Clear 93 77
Albumin 3.1 L
03/05/25 03/05/25
01:09 05:01
Lactic Acid 0.9 1.3
Microbiology Results
03/05/25 01:09 Blood Culture - Preliminary
Blood/Venous Positive culture in progress
Gram Stain - Preliminary
03/05/25 09:02 MRSA Screen - Final
Nose No Methicillin Resistant Staphylococcus aureus isolated.
03/05/25 07:07 Wound Culture - Preliminary
Foot - Left Gram Stain - Preliminary
03/05/25 01:09 Blood Culture - Preliminary
Blood/Venous Positive culture in progress
Gram Stain - Preliminary
Therapeutic Drug Monitoring
Random Vancomycin 14.6 ug/ml 03/07/25 07:33
[2025-03-07] MEDS: IMDUR (EXTENDED RELEASE) 60 MG PO (09:06)
[2025-03-07] MEDS: NEURONTIN 300 MG PO ×3 (09:06→22:36)
[2025-03-07] MEDS: DEMADEX 40 MG PO (09:06)
[2025-03-07] MEDS: ASPIR LOW (ENTERIC COATED) 81 MG PO (09:06)
[2025-03-07] MEDS: CYMBALTA DELAYED RELEASE 30 MG PO (09:06)
[2025-03-07] MEDS: RANEXA EXTENDED RELEASE 1000 MG PO ×2 (09:06→21:06)
[2025-03-07] MEDS: PROTONIX 40 MG PO (09:06)
[2025-03-07] MEDS: NOVOLOG FLEXPEN-HIGH RESISTANCE 10 UNITS SC (09:07)
[2025-03-07] MEDS: COREG 25 MG PO ×2 (09:07→21:06)
[2025-03-07] MEDS: NOVOLOG FLEXPEN 8 UNITS SC ×3 (09:07→18:16)
[2025-03-07] MEDS: ANCEF 10 IV ×2 (09:08→16:07)
--- NOTE | 2025-03-07 09:26 | WOUNDNOTE ---
R BKA STUMP (DISTAL)
--- NOTE | 2025-03-07 09:29 | WOUNDNOTE ---
L FOOT (PLANTAR LATERAL)
--- NOTE | 2025-03-07 09:29 | WOUNDNOTE ---
L HEEL/CALF (MEDIAL)
--- NOTE | 2025-03-07 09:34 | WOUNDNOTE ---
[facility] RN note: Patient admitted with acute blood loss, anemia, L foot wound. Patient admitted from [facility]. Patient recently at with history of picking at sutures per physician documentation.
See H&P for complete history.
PMH: IDDM, ASCVD, L 1st and 2nd toe amps d/t osteomyelitis (in [place], [place]), R BKA, obesity.
Wound Location and type/assessment: Patient admitted with: full thickness L distal foot from old toe amp sites to muscle, pink with yellow tissue. L lateral plantar foot with purple ecchymotic area with broken blister (not new this admission as per
RN taking care of patient during last admission). L dorsal foot old appearing purple area. L medial calf dry red dermal opening on graft site. L heel necrotic brown ulcer. R distal stump dermal ulcer suspect from patient scratching. R knee small
dermal opening suspect from patient scratching. L pedal pulse present. He was seen by vascular during recent admission.
Appetite: good.
Pressure redistribution devices in place: Centrella Max air bed. Pillow to off load heel. Patient states he doesn't get out of bed. Patient can turn self in bed.
Plan: L foot, L heel dressings changed. Adaptic and gauze applied to L lateral foot and L medial calf wounds. L heel remains offloaded on pillow. Patient for surgery tomorrow. Podiatry to manage wounds.
Will confirm orders with hospitalist or printed circuit boards stripper etcher and discussed with BRYN Beaulieu.
Care plan to be updated and will follow peripherally as needed.
[2025-03-07 11:17] VITALS: BP 105/51
[2025-03-07 11:31] LABS: Glucose - Point of Care 258 mg/dl (70-99)
--- NOTE | 2025-03-07 12:57 | W.PN.HOSP.TC ---
Today's Communication/Plan
-
abx
repeat blood cultures
MRI
OR tentatively tomorrow
Assessment / Plan
Assessment / Plan
A/P: Patient is a 29y M with PMH significant for DM-I, ASCVD and osteomyelitis s/p digital amputations who presents to ED from local [facility] complaining of L foot pain and bleeding.
Non-Healing Left Foot Wound with Bleeding
XR with large soft tissue wound and severe diffuse soft tissue swelling as well as severe PAD
- Podiatry re-evaluation for local care.
MRI pending
OR for debridement on Friday
wound care consulted
wound cx pending
BCx NGTD
empiric abx vanc/cefepime
holding plavix
Sepsis
Positive blood cultures
2/2 Gram positive bacilli
empiric abx as above
Follow-up MRI
Follow cultures
Acute Blood Loss Anemia secondary to the above
Chronic Anemia
Hgb 6, s/p 2 unit PRBC in ED--> now improved to 7.2
- discontinued plavix
-stop Plavix (PCI over one year ago)
monitor h/h
Fever - improving
- Unclear etiology. XR does not mention OM. Follow fever curve. Follow-up culture data. + Blood Cx for GPB
Now afebrile
- Had UTI during most recent visit complicated by abx resistance.
COVID negative
no PNA on CXR
could be from foot wound, f/u wound cx. MRI pending. Empiric abx as above
- Was on doxycycline + Bactrim recently at [facility].
ASCVD
- Stable. Continue ASA as noted above. Discontinue Plavix.
DM
- BG uncontrolled. Lantus 30 units BID, lispro 8 units TID-meals, SSI high
- A1C = 8.1% last admission.
CKD III
- SCr improving from recent admission / AMBER. Pt reports his b/l Cr is 1.1
1.5 on discharge last admission but has not resolved.
- Hold / discontinue Bactrim.
- Avoid nephrotoxic agents.
- Follow for changes in SCr.
BLE edema
resume torsemide but monitor Cr closely
CIDP
- Stable. Continue current med regimen.
- Previously received PLEX in [place] - need OP follow-up to arrange similar treatments locally.
DVT Prophylaxis: Unable to tolerate SCDs. Holding pharmacologic prophylaxis due to bleeding.
Code Status: Full
Total time spent on today's encounter was 51 minutes which included time spent in counseling the patient/family regarding diagnosis and treatment plan as listed above, goals of care, and symptom management. Case was discussed with nursing staff,
specialists, and care coordinators/case management. All labs and imaging personally reviewed by me. Remainder the time spent in detailed review of previous records, lab data, imaging, and other medical provider documentation.
Anticipated Discharge: > 48 hours
Subjective/Interval History
-
Date of Service: March 07, 2025
No acute events overnight
Objective Data
-
Labs:
Laboratory Results
03/07/25
07:33
Hgb 7.6 L
Hct 23.3 L
Vital Signs:
Vital Signs
Temp Pulse Resp BP Pulse Ox
98.2 F 83 16 105/51 92
03/07/25 11:17 03/07/25 11:17 03/07/25 11:17 03/07/25 11:17 03/07/25 11:17
I&O
03/06/25 03/07/25 03/08/25
06:59 06:59 06:59
Intake Total 2540 / 2540 2170 / 2170
Output Total 2200 / 2200 4400 / 4400
Balance 340 / 340 -2230 / -2230
Review of Systems
-
History Source: Patient
All other systems: Not reviewed unless documented
Physical Exam
-
General: No Apparent Distress and Obese
HEENT: Moist Mucous Membranes, Anicteric and PERRLA
Respiratory: Clear to Auscultation; Negative Wheezes, Rales or Rhonchi
Cardiac: Regular Rhythm and S1/S2; Negative Murmur, Rub or Gallop
GI: Soft, Nontender, Nondistended and Normal Bowel Sounds
Musculoskeletal: Edema, Left Lower Extrem and Other (R BKA)
Skin: Warm, Dry, Ulcers (L foot in dressing c/d/i) and Lesions (multiple small wounds in various stages of healing on BLE); Negative Rash
Neuro: Awake and AO x 3
Hematologic / Lymphatic: No Lymphadenopathy
Psych: Calm
Data Reviewed
-
Diagnostic Radiology: Report Reviewed by me and Discussed with Physician
Labs: Labs Reviewed by me
[2025-03-07] MEDS: NOVOLOG FLEXPEN-HIGH RESISTANCE 7 UNITS SC (13:10)
[2025-03-07] MEDS: VANCOCIN 535 MG IV (13:10)
--- NOTE | 2025-03-07 14:22 | CM ---
CM following re: discharge planning.
Reviewed pt's chart, met with pt and two guards at bedside.
Pt is admitted from [facility] and a plan is to discharge pt back to [facility] when medically stable.
[facility] Report: [phone]
[facility]
Plan: Discharge back to [facility] when medically stable.
[2025-03-07 15:55] VITALS: BP 107/62
[2025-03-07 17:29] LABS: Glucose - Point of Care 145 mg/dl (70-99)
[2025-03-07] MEDS: NOVOLOG FLEXPEN-HIGH RESISTANCE SC (17:57)
[2025-03-07 19:00] VITALS: BP 138/75
[2025-03-07 21:22] LABS: Glucose - Point of Care 175 mg/dl (70-99)
[2025-03-07] MEDS: REMERON 15 MG PO (22:36)
[2025-03-07] MEDS: LIPITOR 80 MG PO (22:36)
[2025-03-07] MEDS: BENADRYL 25 MG IV (22:36)
[2025-03-07 23:06] VITALS: BP 118/64
[2025-03-08] VITALS (12 sets, daily range): BP systolic 99–143; BP diastolic 52–83; BMI 38.5
[2025-03-08] MEDS: ANCEF 10 IV ×2 (00:08→08:24)
--- NOTE | 2025-03-08 05:07 | W.PN.UPDATE ---
Update Note
Progress Note Update
RN reports she noted some rash on patients abdomen, back of the thighs, arms, face upper abdomen. Patient seen and evaluated, red flat itchy hives noted reports itching and it started 14 hours ago. Patient thinks its coming from Vancomycin as he
thinks it was his first dose and may have caused the itch.
Denies itchy throat, lip swelling tingling or numbness. stable VS 138/65 80 18 97.9 98% 2L
likely Red man syndrome. May run IV Vancomycin on slower rate.
will hold Vancomycin for now
Benadryl IV given.
[2025-03-08] MEDS: DILAUDID 0.5 MG IV ×7 (05:20→20:38)
[2025-03-08 07:22] LABS: Hematocrit 22.2 % (39.0-52.0); Hemoglobin 7.1 g/dL (13.0-18.0); Mean Corp Hgb Conc. 32.0 g/dL (33.0-37.0); Mean Corpuscular Volume 87.7 fL (80.0-94.0); Platelet Count 476 10^3/uL (130-400); Red Cell Dist. Width 16.4 % (11.5-14.5)
[2025-03-08 07:36] LABS: ALT (SGPT) < 10 U/L (0-50); AST (SGOT) 13 U/L (17-59); Albumin 2.7 g/dl (3.5-5.0); Alkaline Phosphatase 77 U/L (38-126); Blood Urea Nitrogen 28 mg/dl (9-20); Calcium 8.0 mg/dl (8.4-10.2); Carbon Dioxide 27 mmol/L (22-30); Chloride 104 mmol/L (98-107); Estimated Creatinine Clearance 87 ml/min; Glucose 233 mg/dl (70-99); Potassium 4.6 mmol/L (3.5-5.1); Sodium 137 mmol/L (135-145); Total Protein 5.7 g/dl (6.3-8.2); eGFR > 60.00
--- NOTE | 2025-03-08 07:56 | PHA.VAN.FU ---
Vancomycin Assessment / Plan
- Assessment
Renal Function: Stable
WBC's are: WNL
In the past 24 hrs, patient has been: Afebrile
Concomitant Antimicrobials: cefazolin
- Assessment - Therapeutic Drug Monitoring
Random Level: 22 - drawn ~17.5H after previous dose of 1750mg
- Dosing Plan
Dosing by Level: Hold off on dosing today
- Monitoring Plan
Random Level: 03/09 06
- Follow Up
Pharmacy will continue to follow.
Vancomycin Follow UP
- -
Patient Age: 29
Patient Sex: Male
Vancomycin Day #: 3
Indication: Diabetic Foot
Requesting Provider: Dr. Mariscal
Pertinent Antimicrobial Allergies:
penicillins - unknown; tolerated amoxicillin
Height / Weight:
Height 5 ft 7 in
Actual Weight 111.538 kg
Pertinent Past Medical History: BMI ~35, DM, PAD, CKD 3 (baseline ~1.1)
- Vital Signs / Lab Results
Temp Pulse Resp BP Pulse Ox
97.9 F 87 18 143/83 98
03/08/25 03:02 03/08/25 03:02 03/08/25 03:02 03/08/25 03:02 03/08/25 03:02
Lab Results - Hematology
03/06/25 03/08/25
05:37 06:20
WBC 8.9 7.2
Lab Results - Chemistry
03/06/25 03/08/25
05:37 06:20
BUN 27 H 28 H
Creatinine 1.6 H 1.5 H
Estimated Creat Clear 77 87
Albumin 2.7 L
Microbiology Results
03/06/25 13:54 Blood Culture - Preliminary
Blood/Venous No Growth in 24 hours- Final report to follow
03/06/25 13:08 Blood Culture - Preliminary
Blood/Venous No Growth in 24 hours- Final report to follow
03/05/25 01:09 Blood Culture - Preliminary
Blood/Venous Positive culture in progress
Diptheroids
Gram Stain - Preliminary
03/05/25 01:09 Blood Culture - Preliminary
Blood/Venous Diptheroids
Gram Stain - Preliminary
03/05/25 16:28 Urine Culture - Final
Urine NO GROWTH
03/05/25 07:07 Wound Culture - Preliminary
Foot - Left Proteus mirabilis
Gram negative bacilli
Gram Stain - Preliminary
03/05/25 09:02 MRSA Screen - Final
Nose No Methicillin Resistant Staphylococcus aureus isolated.
Therapeutic Drug Monitoring
Random Vancomycin 22.0 ug/ml 03/08/25 06:20
[2025-03-08 08:09] LABS: Glucose - Point of Care 258 mg/dl (70-99)
[2025-03-08] MEDS: NOVOLOG FLEXPEN SC ×3 (08:23→16:57)
[2025-03-08] MEDS: NOVOLOG FLEXPEN-HIGH RESISTANCE 7 UNITS SC (08:24)
[2025-03-08] MEDS: LANTUS 0.3 UNITS SC ×2 (08:24→21:13)
[2025-03-08] MEDS: NEURONTIN 300 MG PO ×2 (08:25→15:07)
[2025-03-08] MEDS: RANEXA EXTENDED RELEASE 1000 MG PO ×2 (08:25→20:45)
[2025-03-08] MEDS: IMDUR (EXTENDED RELEASE) 60 MG PO (08:25)
[2025-03-08] MEDS: PROTONIX 40 MG PO (08:26)
[2025-03-08] MEDS: ASPIR LOW (ENTERIC COATED) 81 MG PO (08:26)
[2025-03-08] MEDS: COREG 25 MG PO ×2 (08:26→20:47)
[2025-03-08] MEDS: DEMADEX 40 MG PO (08:26)
[2025-03-08] MEDS: CYMBALTA DELAYED RELEASE 30 MG PO (08:26)
[2025-03-08] MEDS: NORCO 7.5/325 1 TABLET PO ×3 (08:36→21:51)
[2025-03-08 12:08] LABS: Glucose - Point of Care 193 mg/dl (70-99)
[2025-03-08] MEDS: NOVOLOG FLEXPEN-HIGH RESISTANCE 2 UNITS SC (12:30)
--- NOTE | 2025-03-08 13:17 | W.PN.HOSP.TC ---
Today's Communication/Plan
-
Podiatry plans for debridement +/- Amputation in setting of Osteo
Cont abx
f/u cultures
ID consulted
Assessment / Plan
Assessment / Plan
A/P: Patient is a 29y M with PMH significant for DM-I, ASCVD and osteomyelitis s/p digital amputations who [facility] complaining of L foot pain and bleeding.
#Non-Healing Left Foot Wound with Bleeding
XR with large soft tissue wound and severe diffuse soft tissue swelling as well as severe PAD
- Podiatry re-evaluation for local care.
-MRI�evidence of acute osteomyelitis in the 1st and 2nd metatarsal heads, medial side of the third metatarsal head and base of the proximal phalanx of the third toe, severe cellulitis throughout the dorsal left foot, probable mild acute
osteomyelitis in the posterior -medial calcaneus deep to soft tissue ulcer and mild cellulitis
OR for debridement on Friday, possible amputation
wound care consulted
wound cx pending, gram-negative bacilli growing
BCx NGTD
empiric abx cefepime
holding plavix
#Sepsis
#Positive blood cultures
#Osteomyelitis
2/2 Gram positive bacilli
empiric abx as above
Follow cultures
Intervention as per podiatry
ID consulted
Hold on Vanc
Acute Blood Loss Anemia secondary to the above
Chronic Anemia
Hgb 6, s/p 2 unit PRBC in ED--> now improved to 7.2
- discontinued plavix
-stop Plavix (PCI over one year ago)
monitor h/h
ASCVD
- Stable. Continue ASA as noted above. Discontinue Plavix.
DM
- BG uncontrolled. Lantus 30 units BID, lispro 8 units TID-meals, SSI high
- A1C = 8.1% last admission.
CKD III
- SCr improving from recent admission / AMBER. Pt reports his b/l Cr is 1.1
1.5 on discharge last admission but has not resolved.
- Hold / discontinue Bactrim.
- Avoid nephrotoxic agents.
- Follow for changes in SCr.
BLE edema
resume torsemide but monitor Cr closely
CIDP
- Stable. Continue current med regimen.
- Previously received PLEX in [place] - need OP follow-up to arrange similar treatments locally.
DVT Prophylaxis: Unable to tolerate SCDs. Holding pharmacologic prophylaxis due to bleeding.
Code Status: Full
Total time spent on today's encounter was 53 minutes which included time spent in counseling the patient/family regarding diagnosis and treatment plan as listed above, goals of care, and symptom management. Case was discussed with nursing staff,
specialists, and care coordinators/case management. All labs and imaging personally reviewed by me. Remainder the time spent in detailed review of previous records, lab data, imaging, and other medical provider documentation.
Anticipated Discharge: > 48 hours
Subjective/Interval History
-
Date of Service: March 08, 2025
Itching and rashes diffuse overnight noted this morning, stop vancomycin
Objective Data
-
Labs:
Laboratory Results
03/08/25
06:20
WBC 7.2
Hgb 7.1 L
Hct 22.2 L
Plt Count 476 H
Sodium 137
Potassium 4.6
Chloride 104
Carbon Dioxide 27
BUN 28 H
Creatinine 1.5 H
Glucose 233 H
Calcium 8.0 L
Total Bilirubin 0.2
AST 13 L
ALT < 10
Alkaline Phosphatase 77
Vital Signs:
Vital Signs
Temp Pulse Resp BP Pulse Ox
98.3 F 86 18 121/65 95
03/08/25 11:00 03/08/25 11:00 03/08/25 11:00 03/08/25 11:00 03/08/25 11:00
I&O
03/07/25 03/08/25 03/09/25
06:59 06:59 06:59
Intake Total 2170 / 2170 480 / 480
Output Total 4400 / 4400 1900 / 1900
Balance -2230 / -2230 -1420 / -1420
Review of Systems
-
History Source: Patient
All other systems: Not reviewed unless documented
Physical Exam
-
General: No Apparent Distress and Obese
HEENT: Moist Mucous Membranes, Anicteric and PERRLA
Respiratory: Clear to Auscultation; Negative Wheezes, Rales or Rhonchi
Cardiac: Regular Rhythm and S1/S2; Negative Murmur, Rub or Gallop
GI: Soft, Nontender, Nondistended and Normal Bowel Sounds
Musculoskeletal: Edema, Left Lower Extrem and Other (R BKA)
Skin: Warm, Dry, Ulcers (L foot in dressing c/d/i) and Lesions (multiple small wounds in various stages of healing on BLE); Negative Rash
Neuro: Awake and AO x 3
Hematologic / Lymphatic: No Lymphadenopathy
Psych: Calm
Data Reviewed
-
Diagnostic Radiology: Report Reviewed by me and Discussed with Physician
MRI: Report Reviewed by me
Labs: Labs Reviewed by me
[2025-03-08] MEDS: STERILE WATER FOR INJECTION 10 ML IV (13:44)
[2025-03-08] MEDS: MAXIPIME 2000 MG IV (13:45)
[2025-03-08] MEDS: BENADRYL 50 MG IV (13:45)
--- NOTE | 2025-03-08 14:59 | CON.ID ---
Consultation
-
Date/Time Consultation Requested: March 08, 2025 0850
Date/Time Consultation Performed: March 08, 2025 1130
Requesting Provider: Dr. Gucci Hernandez
Performing Provider: Dr. Mary Kay Ca
Reason for Consultation: Bacteremia, foot infection, Vanco allergy
Chief Complaint / Past History
Chief Complaint
Bleeding from foot
History of Present Illness
29-year-old male currently incarcerated with history of diabetes mellitus, CAD, Guillain-Potts� syndrome/CIDP, right BKA, left toes osteomyelitis status post amputation and debridement of left heel ulcer on January 21, 2025 who presented to the ER on
03/05 due to profuse bleeding from the left toot amp site. He was recently hospitalized from February 07 - February 24 with significant bleeding from the left heel with blood loss anemia; during hospital stay also developed symptomatic UTI with
multidrug-resistant Enterobacter treated with 7-day course of IV antibiotic; also he was in acute renal failure improved at time of discharge. Patient reports that he was placed on doxycycline and Bactrim in [facility] since discharge from last
hospitalization for his foot wounds. Patient states he has been crawling in [facility] to get his medicines and food. He thinks crawling may have dislodged the amputation site sutures which resulted in profuse bleeding. In ER, left foot noted to have
loose sutures with blood oozing. Hemoglobin 6.0. He was febrile Temperature 101.1. He was started on vancomycin and cefazolin. However last night he developed diffuse pruritic rash. Patient reports he never had vancomycin in the past. He has
penicillin allergy but tolerated amoxicillin before. No urine symptoms. No cough or shortness of breath. No diarrhea.
Past History
Additional Past Medical History:
Diabetes mellitus
CAD status post PCI
CHF
hx CKD3
Hypertension
Guillain-Potts� syndrome/CIDP, plasma exchange q 2 months
PAD status post right BKA
Left hallux and second toe osteomyelitis status post amputation and debridement of left heel ulcer January 21, 2025
Allergy History:
ibuprofen Allergy (Verified 03/04/25 22:04)
Unknown
oxycodone Allergy (Verified 03/04/25 22:04)
Unknown
Penicillins Allergy (Verified 03/04/25 22:04)
Unknown/tolerated amoxicillin
silver Allergy (Verified 03/04/25 22:04)
Hives
silver nitrate Allergy (Verified 03/04/25 22:04)
Hives
sweet potato Allergy (Verified 03/04/25 22:04)
Unknown
tuna oil Allergy (Verified 03/04/25 22:04)
Unknown
turkey Allergy (Verified 03/04/25 22:04)
Unknown
Medications Reviewed: Yes
Current Antibiotics:
cefepime day 1
Social History
Tobacco: Non-Smoker
Alcohol: None
Drug: None
Living: [facility]
Family History
Family History: Not Pertinent
Review of Systems
Review of Systems
General: Fever and Chills; Negative Change in Appetite
HEENT: Negative Headache
Cardiovascular: Negative Chest Pain or Dyspnea
Respiratory: Negative Dyspnea or Cough
Gasteroenterology: Negative Nausea, Vomiting or Diarrhea
Genital / Urological: Negative Dysuria or Flank Pain
Hematologic: Bleeding Problems
Endocrine: Weakness
All systems: All other systems were reviewed and were negative
Vital Signs
Temp Pulse Resp BP Pulse Ox
98.3 F 86 18 121/65 95
03/08/25 11:00 03/08/25 11:00 03/08/25 11:00 03/08/25 11:00 03/08/25 11:00
Physical Exam
Physical Exam
Constitutional: No Acute Distress
Cardiovascular: Regular Rate and S1/S2
Pulmonary: Clear
Gastrointestinal: Soft, Non Tender and Non Distended
Genito-Urinary: Negative CVA Tenderness
Extremities: Edema (left meidal heel wound large wound covered with dark brown slough; Left 1st and 2nd amp site with wound dehiscence unhealthy tissue, yellow slough, dried blood)
Skin: Rash (Diffuse round red patches )
Wound: Other (Review of )
Neurological: AO x 3
Lab / Diagnostic Study Results
03/08/25 06:20
Abs Immat Gran (auto) 0.1 10^3/uL (0-0.05) H 03/04/25 22:33
Absolute Neuts (auto) 9.1 10^3/uL (1.4-6.5) H 03/04/25 22:33
Absolute Lymphs (auto) 1.7 10^3/uL (1.2-3.4) 03/04/25 22:33
Absolute Monos (auto) 1.5 10^3/uL (0.1-0.6) H 03/04/25 22:33
Absolute Basos (auto) 0.1 10^3/uL (0-0.2) 03/04/25 22:33
Immature Gran % 1.0 % (0-0.5) H 03/04/25 22:33
Neutrophils % 72.2 % (42.2-75.2) 03/04/25 22:33
Lymphocytes % 13.8 % (20.5-51.1) L 03/04/25 22:33
Monocytes % 11.7 % (1.7-9.3) H 03/04/25 22:33
Eosinophils % 0.9 % (0-6) 03/04/25 22:33
Basophils % 0.4 % (0-2) 03/04/25 22:33
Lactic Acid 1.3 mmol/L (0.7-2.0) 03/05/25 05:01
Ur Squamous Epith Cells 3-5 /LPF (Few) 03/05/25 16:28
Microbiology Results
Micro:
03/07/25 14:26 Blood Culture - Preliminary
Blood/Venous No Growth in 24 hours- Final report to follow
03/06/25 13:54 Blood Culture - Preliminary
Blood/Venous No Growth in 48 hours- Final report to follow
03/06/25 13:08 Blood Culture - Preliminary
Blood/Venous No Growth in 48 hours- Final report to follow
03/05/25 01:09 Blood Culture - Preliminary
Blood/Venous Positive culture in progress
Diptheroids
Gram Stain - Preliminary
03/05/25 07:07 Wound Culture - Preliminary
Foot - Left Proteus mirabilis
Gram negative bacilli
Gram Stain - Preliminary
03/05/25 01:09 Blood Culture - Preliminary
Blood/Venous Diptheroids
Gram Stain - Preliminary
03/05/25 16:28 Urine Culture - Final
Urine NO GROWTH
03/05/25 09:02 MRSA Screen - Final
Nose No Methicillin Resistant Staphylococcus aureus isolated.
03/07/25 MRI LLE: ACUTE OSTEOMYELITIS in the 1st and 2nd METATARSAL HEADS (and in the sesamoid bones plantar to the 1st metatarsal head) which extends 1.7 cm deep to the distal articular surfaces.
2. Mild acute osteomyelitis in the medial side of the 3rd metatarsal head and base of the proximal phalanx of the 3rd toe.
3. Large soft tissue wound distal to the 1st and 2nd metatarsal heads at the site of previous left great toe and 2nd toe amputation.
4. SEVERE CELLULITIS throughout the dorsal left foot.
5. Probable mild acute osteomyelitis in the posteromedial calcaneus deep to a soft tissue ulcer and mild cellulitis.
03/05/25 CXR: No radiographic evidence for pneumonia.
Assessment / Plan
# Acute Osteomyelitis of left first, second, third met heads
# Fever reaolved
- wound dehiscence of recent left hallux and second toe amputation (01/21/25)
- Will likely need TMA
- wound swab; polymicrobial organisms
- Can continue cefepime for now.
# Pruritic rash due to Vancomycin, dc'd
- Supportive are
# Diphtheroid bacteremia x 2 drawn at the same time
# Gram positive bacilli 1 of 4 bottles
- Both skin contaminants
- Repeat blood cx's neg
- No need for abx.
# Conditions [facility]
Diabetes mellitus
CAD status post PCI
CHF
hx CKD3
Hypertension
Guillain-Potts� syndrome/CIDP, plasma exchange q 2 months
PAD status post right BKA
Left hallux and second toe osteomyelitis status post amputation and debridement of left heel ulcer January 21, 2025
Incarcerated
Care Review
Plan reviewed with: Physician (Dr. Hernandez)
--- NOTE | 2025-03-08 14:59 | CM ---
CM following re: discharge planning.
Reviewed pt's chart, met with pt and two guards at bedside.
Pt is admitted from [facility] and a plan is to discharge pt back to [facility] when medically stable.
[facility] Report: [phone]
[facility]
Plan: Discharge back to [facility] when medically stable.
[2025-03-08 16:54] LABS: Glucose - Point of Care 92 mg/dl (70-99)
[2025-03-08] MEDS: NOVOLOG FLEXPEN-HIGH RESISTANCE SC (16:57)
--- NOTE | 2025-03-08 17:15 | PTCARENOTE ---
Addendum entered by Nicolette Hyman RN 03/08/25 18:10:
This RN communicated with MD earlier in shift regarding patient's hgb 7.1 on AM labs, repeat CBC ordered for 2100 tonight per MD.
Original Note:
Patient to OR for L heel debridement and TMA. CHG bath provided, blood sugar taken prior to transport - 92. Patient transported in bed with chart.
[2025-03-08 17:26] LABS: Glucose - Point of Care 84 mg/dl (70-99)
--- NOTE | 2025-03-08 17:46 | CON.SURG ---
Surgical Consultation
-
CONSULTING PHYSICIAN: Sander Montez DPM
REFERRING PHYSICIAN: Khloe Mariscal MD
DATE/TIME OF REQUEST: 03/05/2025
DATE/TIME OF CONSULTATION: 03/05/2025
CHIEF COMPLAINT: Left foot bleeding.
SUBJECTIVE: The patient is a 29 year old male with past medical
history significant for insulin-dependent diabetes, ASCVD,
osteomyelitis with amputations of the left 1st and 2nd toe as well
as previous right lower extremity below knee amputation. He
presents to [facility] complaining of left foot pain and
bleeding. He was hospitalized 02/07/2025 through 02/24/2025 for a
similar complaint where he was seen by Podiatry and Vascular
Surgery services and on that visit witnessed by staff intentionally
picking at sutures and wounds. Today the patient presents in
custody. He had previously had dressings changed during
imprisonment. Left 1st and 2nd toe amputations performed at
[facility] in mid January. Aside from left foot pain,
denies any other complaints. Acknowledges recently blood sugars
have been elevated. Reports fever, but denies chills, shortness of
breath, or chest pain.
PHYSICAL EXAMINATION: The patient appears in no acute distress.
Respirations are unlabored. Left lower extremity exam: DP and PT
pulses faintly palpable. Sensation diminished in stocking glove
distribution. Gross motor function is intact. Tenderness on
palpation across lateral forefoot. He has dehiscence of previous
amputation site with sutures loose. Wound bed appears predominantly
fibrotic with surrounding coagulated blood. No active bleeding at
this time. Wound probes to the level of muscle. Drainage is
predominantly serosanguinous. Additionally, lateral heel eschar.
The foot is edematous and does not recede on elevation. Third toe
with fibrotic area at the PIPJ and rubra does not dissipate on
elevation.
IMAGING: Left foot radiograph: Agree with radiologist.
Left foot MRI: Reviewed and agree with radiologist impression
IMPRESSION:
1. ACUTE OSTEOMYELITIS in the 1st and 2nd METATARSAL HEADS (and in the sesamoid bones plantar to the 1st metatarsal head) which extends 1.7 cm deep to the distal articular surfaces.
2. Mild acute osteomyelitis in the medial side of the 3rd metatarsal head and base of the proximal phalanx of the 3rd toe.
3. Large soft tissue wound distal to the 1st and 2nd metatarsal heads at the site of previous left great toe and 2nd toe amputation.
4. SEVERE CELLULITIS throughout the dorsal left foot.
5. Probable mild acute osteomyelitis in the posteromedial calcaneus deep to a soft tissue ulcer and mild cellulitis.
6. Severe acute on chronic muscle denervation throughout the left foot and lower leg consistent with diabetes mellitus.
LABORATORY DATA: White count 12.7, hemoglobin 6.8, HbA1c 8.1
ASSESSMENT: The patient is a 29 year old male with past medical
history of previous right lower extremity below knee amputation
with amputation of left 1st and 2nd toes and diabetes presenting
with dehiscence of left foot surgical site with superimposed
cellulitis. Concern for underlying infection.
PLAN: Reviewed MRI showing osteomyelitis of 1st/2nd/3rd metatarsal osteomyelitis.
Discussed conservative and surgical treatment options. Given severity of wound and infection
will proceed with left transmetatarsal amputation and heel wound debridement.
Continue antibiotics in meantime. He will remain non-weight bearing to the left lower extremity.
Discussed strict glycemic control and risk for need for additional procedure/loss of limb/loss of life.
Plan for OR debridement Friday.
--- NOTE | 2025-03-08 18:55 | W.PN.SURGUPD ---
Surgical Update
Surgical Update
Patient s/p L TMA primarily closed, and left heel wound debridement with calcaneus biopsy
-Dressings to remain C/D/I, will be changed POD#2
-Follow up 2x pathology (left forefoot, left calcaneus biopsy), 1x culture
-Continue antibiotics, await final antibiotic plan pending calcaneus biopsy
-NWB to LLE
-PT/OT
-No further surgical plans
[2025-03-08 19:26] LABS: Glucose - Point of Care 101 mg/dl (70-99)
[2025-03-08 20:57] LABS: Glucose - Point of Care 106 mg/dl (70-99)
[2025-03-08 22:13] LABS: Hematocrit 23.7 % (39.0-52.0); Hemoglobin 7.7 g/dL (13.0-18.0); Mean Corp Hgb Conc. 32.5 g/dL (33.0-37.0); Mean Corpuscular Volume 86.2 fL (80.0-94.0); Platelet Count 560 10^3/uL (130-400); Red Cell Dist. Width 16.5 % (11.5-14.5)
[2025-03-09] VITALS (8 sets, daily range): BP systolic 114–160; BP diastolic 66–91; PULSE 92; O2SAT 99; BMI 37.7
[2025-03-09] MEDS: MAXIPIME 2000 MG IV ×4 (00:24→21:56)
[2025-03-09] MEDS: LIPITOR 80 MG PO ×2 (00:27→21:56)
[2025-03-09] MEDS: STERILE WATER FOR INJECTION 10 ML IV ×4 (00:27→21:57)
[2025-03-09] MEDS: NEURONTIN 300 MG PO ×4 (00:27→21:56)
[2025-03-09] MEDS: REMERON 15 MG PO ×2 (00:28→21:56)
[2025-03-09] MEDS: DILAUDID 0.5 MG IV ×5 (00:40→18:49)
[2025-03-09 06:29] LABS: Hematocrit 23.3 % (39.0-52.0); Hemoglobin 7.5 g/dL (13.0-18.0); Mean Corp Hgb Conc. 32.2 g/dL (33.0-37.0); Mean Corpuscular Volume 86.9 fL (80.0-94.0); Platelet Count 517 10^3/uL (130-400); Red Cell Dist. Width 16.1 % (11.5-14.5)
[2025-03-09 07:09] LABS: ALT (SGPT) < 10 U/L (0-50); AST (SGOT) 13 U/L (17-59); Albumin 3.1 g/dl (3.5-5.0); Alkaline Phosphatase 89 U/L (38-126); Blood Urea Nitrogen 32 mg/dl (9-20); Calcium 8.2 mg/dl (8.4-10.2); Carbon Dioxide 29 mmol/L (22-30); Chloride 100 mmol/L (98-107); Estimated Creatinine Clearance 86 ml/min; Glucose 465 mg/dl (70-99); Potassium 5.6 mmol/L (3.5-5.1); Sodium 137 mmol/L (135-145); Total Protein 6.3 g/dl (6.3-8.2); eGFR > 60.00
[2025-03-09 07:38] LABS: Glucose - Point of Care 472 mg/dl (70-99)
--- NOTE | 2025-03-09 07:53 | W.PN.UPDATE ---
Update Note
Progress Note Update
29M s/p L TMA primarily closed, and left heel wound debridement with calcaneus biopsy. This AM, patient w/ anticipated postop pain
-Dressings to remain C/D/I, will be changed POD#2
-Follow up 2x pathology (left forefoot, left calcaneus biopsy), 1x culture
-Continue antibiotics, await final antibiotic plan pending calcaneus biopsy
- continue ice/ elevation/ meds for analgesia
-NWB to LLE
-PT/OT
-No further surgical plans
[2025-03-09] MEDS: COREG 25 MG PO ×2 (08:54→21:54)
[2025-03-09] MEDS: ASPIR LOW (ENTERIC COATED) 81 MG PO (08:54)
[2025-03-09] MEDS: CYMBALTA DELAYED RELEASE 30 MG PO (08:55)
[2025-03-09] MEDS: PROTONIX 40 MG PO (08:55)
[2025-03-09] MEDS: RANEXA EXTENDED RELEASE 1000 MG PO ×2 (08:55→21:55)
[2025-03-09] MEDS: NORCO 7.5/325 1 TABLET PO ×4 (08:55→21:58)
[2025-03-09] MEDS: IMDUR (EXTENDED RELEASE) 60 MG PO (08:55)
[2025-03-09] MEDS: DEMADEX 40 MG PO (08:56)
[2025-03-09] MEDS: LANTUS 0.3 UNITS SC ×2 (08:56→21:54)
[2025-03-09] MEDS: NOVOLOG FLEXPEN 8 UNITS SC ×3 (08:58→16:51)
[2025-03-09] MEDS: NOVOLOG FLEXPEN-HIGH RESISTANCE 14 UNITS SC ×2 (08:58→12:08)
[2025-03-09] MEDS: LOKELMA 10 GRAM PO (10:31)
--- NOTE | 2025-03-09 10:34 | W.PN.ID1 ---
Date of Service
Date of Service: March 09, 2025
Today's Communication
Await bone bx. Continue cefepime.
Assessment / Plan
# Acute Osteomyelitis of left first, second, third met heads
# Possible underlying osteo of chronic left heel wound
# Fever resolved
- wound dehiscence of recent left hallux and second toe amputation (01/21/25)
- 03/08 s/p L TMA, heel debridement, and calcaneus biopsy
- Await OR heel biopsy and cx
- Continue cefepime.
# Pruritic rash due to Vancomycin, dc'd
- Supportive care
# Diphtheroid bacteremia x 2 drawn at the same time
# Gram positive bacilli 1 of 4 bottles
- Both skin contaminants
- Repeat blood cx's neg
# Conditions [employer]
Diabetes mellitus
CAD status post PCI
CHF
hx CKD3
Hypertension
Guillain-Potts� syndrome/CIDP, plasma exchange q 2 months
PAD status post right BKA
Left hallux and second toe osteomyelitis status post amputation and debridement of left heel ulcer January 21, 2025
Incarcerated
Chief Complaint
-: Other (osteo)
Subjective / Review of Systems
itchy rash persists
Vital Signs / Physical Exam
Vital Signs
Vital Signs
Temp Pulse Resp BP Pulse Ox
97.6 F 87 18 146/83 99
03/09/25 07:00 03/09/25 08:54 03/09/25 07:00 03/09/25 08:54 03/09/25 07:00
Physical Exam
Constitutional: No Acute Distress
Cardiovascular: Regular Rate and S1/S2
Pulmonary: Clear
Gastrointestinal: Soft, Non Tender and Non Distended
Skin: Rash (erythematous rash stable)
Wound: Other (Left foot dressing dry)
Neurological: AO x 3
Objective Data
Lab Data
Lab Results
03/09/25 05:30
03/09/25 05:30
Estimated Creat Clear 86 ml/min 03/09/25 05:30
Lactic Acid 1.3 mmol/L (0.7-2.0) 03/05/25 05:01
Total Bilirubin 0.3 mg/dl (0.2-1.3) 03/09/25 05:30
AST 13 U/L (17-59) L 03/09/25 05:30
ALT < 10 U/L (0-50) 03/09/25 05:30
Alkaline Phosphatase 89 U/L (38-126) 03/09/25 05:30
Most recent labs reviewed.
Micro Results:
03/08/25 18:14 Wound Culture - Pending
Foot - Left Gram Stain - Preliminary
03/05/25 07:07 Wound Culture - Preliminary
Foot - Left Proteus mirabilis
Gram negative bacilli
Gram Stain - Preliminary
03/08/25 18:14 Anaerobic Culture - Pending
Foot - Left
03/07/25 14:26 Blood Culture - Preliminary
Blood/Venous No Growth in 24 hours- Final report to follow
03/06/25 13:54 Blood Culture - Preliminary
Blood/Venous No Growth in 48 hours- Final report to follow
03/06/25 13:08 Blood Culture - Preliminary
Blood/Venous No Growth in 48 hours- Final report to follow
03/05/25 01:09 Blood Culture - Preliminary
Blood/Venous Positive culture in progress
Diptheroids
Gram Stain - Preliminary
03/05/25 01:09 Blood Culture - Preliminary
Blood/Venous Diptheroids
Gram Stain - Preliminary
03/05/25 16:28 Urine Culture - Final
Urine NO GROWTH
03/05/25 09:02 MRSA Screen - Final
Nose No Methicillin Resistant Staphylococcus aureus isolated.
8/25/25 MRI LLE: ACUTE OSTEOMYELITIS in the 1st and 2nd METATARSAL HEADS (and in the sesamoid bones plantar to the 1st metatarsal head) which extends 1.7 cm deep to the distal articular surfaces.
2. Mild acute osteomyelitis in the medial side of the 3rd metatarsal head and base of the proximal phalanx of the 3rd toe.
3. Large soft tissue wound distal to the 1st and 2nd metatarsal heads at the site of previous left great toe and 2nd toe amputation.
4. SEVERE CELLULITIS throughout the dorsal left foot.
5. Probable mild acute osteomyelitis in the posteromedial calcaneus deep to a soft tissue ulcer and mild cellulitis.
03/05/25 CXR: No radiographic evidence for pneumonia.
[2025-03-09 11:02] LABS: Glucose - Point of Care 537 mg/dl (70-99)
[2025-03-09 12:03] LABS: Glucose 539 mg/dl (70-99)
[2025-03-09 12:13] LABS: Glucose - Point of Care 555 mg/dl (70-99)
--- NOTE | 2025-03-09 13:32 | W.PN.HOSP.TC ---
Today's Communication/Plan
-
Cont abx
F/u OR cultures
Glucose adjustment
Assessment / Plan
Assessment / Plan
A/P: Patient is a 29y M with PMH significant for DM-I, ASCVD and osteomyelitis s/p digital amputations who presents to ED from local nursing home complaining of L foot pain and bleeding.
#Non-Healing Left Foot Wound with Bleeding
XR with large soft tissue wound and severe diffuse soft tissue swelling as well as severe PAD
- Podiatry re-evaluation for local care.
-MRI�evidence of acute osteomyelitis in the 1st and 2nd metatarsal heads, medial side of the third metatarsal head and base of the proximal phalanx of the third toe, severe cellulitis throughout the dorsal left foot, probable mild acute
osteomyelitis in the posterior -medial calcaneus deep to soft tissue ulcer and mild cellulitis
-wound dehiscence of recent left hallux and second toe amputation (01/21/25)
-wound care consulted
-wound cx pending, gram-negative bacilli growing
-BCx NGTD
-empiric abx cefepime
-holding plavix
#Sepsis
#Positive blood cultures
#Osteomyelitis
-empiric abx as above
- wound dehiscence of recent left hallux and second toe amputation (01/21/25)
- 03/08 s/p L TMA, heel debridement, and calcaneus biopsy
- Await OR heel biopsy and cx
- - Continue cefepime.
# Diphtheroid bacteremia x 2 drawn at the same time
# Gram positive bacilli 1 of 4 bottles
- Both skin contaminants
- Repeat blood cx's neg
Acute Blood Loss Anemia secondary to the above
Chronic Anemia
Hgb 6, s/p 2 unit PRBC in ED--> now improved to 7.2
- discontinued plavix
-stop Plavix (PCI over one year ago)
monitor h/h
ASCVD
- Stable. Continue ASA as noted above. Discontinue Plavix.
DM
- BG uncontrolled. Lantus 30 units BID, lispro 8 units TID-meals, SSI high
- A1C = 8.1% last admission.
CKD III
- SCr improving from recent admission / AMBER. Pt reports his b/l Cr is 1.1
1.5 on discharge last admission but has not resolved.
- Hold / discontinue Bactrim.
- Avoid nephrotoxic agents.
- Follow for changes in SCr.
BLE edema
resume torsemide but monitor Cr closely
CIDP
- Stable. Continue current med regimen.
- Previously received PLEX in [place] - need OP follow-up to arrange similar treatments locally.
DVT Prophylaxis: Unable to tolerate SCDs. Holding pharmacologic prophylaxis due to bleeding.
Code Status: Full
Total time spent on today's encounter was 54 minutes which included time spent in counseling the patient/family regarding diagnosis and treatment plan as listed above, goals of care, and symptom management. Case was discussed with nursing staff,
specialists, and care coordinators/case management. All labs and imaging personally reviewed by me. Remainder the time spent in detailed review of previous records, lab data, imaging, and other medical provider documentation.
Anticipated Discharge: > 48 hours
Subjective/Interval History
-
Date of Service: March 09, 2025
wound dehiscence of recent left hallux and second toe amputation (01/21/25)
Objective Data
-
Labs:
Laboratory Results
03/09/25 03/09/25
05:30 11:25
WBC 10.6
Hgb 7.5 L
Hct 23.3 L
Plt Count 517 H
Sodium 137
Potassium 5.6 H
Chloride 100
Carbon Dioxide 29
BUN 32 H
Creatinine 1.5 H
Glucose 465 H* 539 H*
Calcium 8.2 L
Total Bilirubin 0.3
AST 13 L
ALT < 10
Alkaline Phosphatase 89
Vital Signs:
Vital Signs
Temp Pulse Resp BP Pulse Ox
97.8 F 92 18 114/69 99
03/09/25 11:00 03/09/25 11:00 03/09/25 11:00 03/09/25 11:00 03/09/25 11:38
I&O
03/08/25 03/09/25 03/10/25
06:59 06:59 06:59
Intake Total 480 / 480 720 / 720
Output Total 1900 / 1900 3300 / 3300
Balance -1420 / -1420 -2580 / -2580
Review of Systems
-
History Source: Patient
All other systems: Not reviewed unless documented
Data Reviewed
-
Diagnostic Radiology: Report Reviewed by me and Discussed with Physician
MRI: Report Reviewed by me
Labs: Labs Reviewed by me
[2025-03-09 13:47] LABS: Glucose - Point of Care 495 mg/dl (70-99)
[2025-03-09] MEDS: LR 1000 IV ×2 (14:19→18:05)
[2025-03-09 14:30] LABS: Glucose 443 mg/dl (70-99)
--- NOTE | 2025-03-09 14:36 | CM ---
CM following re: discharge planning.
Reviewed pt's chart.
Pt is admitted from [facility] and a plan is to discharge pt back to [facility] when medically stable.
[facility] Report: [phone]
[facility]
Plan: Discharge back to [facility] when medically stable
[2025-03-09] MEDS: NOVOLOG FLEXPEN 10 UNITS SC ×2 (14:38→18:45)
[2025-03-09 15:37] LABS: Glucose - Point of Care 442 mg/dl (70-99)
[2025-03-09 16:21] LABS: Blood Urea Nitrogen 39 mg/dl (9-20); Calcium 8.4 mg/dl (8.4-10.2); Carbon Dioxide 32 mmol/L (22-30); Chloride 98 mmol/L (98-107); Estimated Creatinine Clearance 92 ml/min; Glucose 377 mg/dl (70-99); Potassium 4.9 mmol/L (3.5-5.1); Sodium 133 mmol/L (135-145); eGFR > 60.00
[2025-03-09] MEDS: NOVOLOG FLEXPEN-HIGH RESISTANCE 12 UNITS SC (16:50)
[2025-03-09 18:09] LABS: Glucose - Point of Care 356 mg/dl (70-99)
--- NOTE | 2025-03-09 19:46 | PTCARENOTE ---
Patient's blood sugar on AM labs 465, accucheck JOHANNM, aware, stated give scheduled 8 units and 14 units sliding scale and 30 units Lantus - see MAR. Medication administered, recheck with MD at bedside [facility], stat glucose at 1125 539, this RN
communicated with MD who stated give scheduled 8 units NovoLog and sliding scale, MD made aware sliding scale only goes up to 14 units for sugar as high as 499, MD stated give 14 units along with 8 units scheduled - see MAR and charting. Recheck
after insulin administration [facility], stat glucose at 1402 443. Orders entered per MD for one time dose of 10 units NovoLog and 1000ml LR bolus - see MAR. Recheck [facility], stat glucose at 1551 377, MD stated to give scheduled 8 units and 12 units sliding
scale - see MAR. Verbal order taken for second 1000ml LR bolus. AccuCheck at 1800 356, this RN communicated with MD, verbal order taken for 10 units NovoLog flexpen - see MAR. Dinner at bedside at time of administration. Patient AAOX3 throughout
shift, drowsy, c/o 8-10 LLE pain, medicated throughout shift with PRN PO [place] and 0.5 mg IV Dilaudid. LLE dressing C/D/I. Stat dose of Lokelma given per MD for K of 5.6 on AM labs, repeat BMP this afternoon with K of 4.9. aware, patient
remaining on tele, NSR 80s-90s.
[2025-03-09 20:06] LABS: Glucose - Point of Care 334 mg/dl (70-99)
--- NOTE | 2025-03-09 21:50 | OR.RPT ---
Addendum entered and electronically signed by Sander Montez MD 03/09/25 22:02:

Original Note:
Operative Report
Operative Report
Operative Report
Patient: Sang Anderson
Date of Surgery: 03/08/2025
Surgeon: Sander Montez DPM
Assistants: Sander Long DPM
Preoperative Diagnoses:
Osteomyelitis of the left 1st, 2nd, and 3rd metatarsal heads
Osteomyelitis of the medial calcaneus, left foot
Medial heel decubitus wound, left foot
Postoperative Diagnoses:
Same as preoperative
Procedures Performed:
Left foot transmetatarsal amputation CPT 50176
Medial heel and calcaneus debridement with bone biopsy CPT 17517
Anesthesia:
General anesthesia, 10ccs of 0.5% bupivacaine plain
Estimated Blood Loss:
Minimal
Specimens:
Left forefoot (transmetatarsal amputation specimen) sent to pathology and microbiology
Medial calcaneus bone biopsy sent for pathology
Complications:
None
Indications for Surgery:
The patient is a 29-year-old male with a history of 1st and 2nd toe amputations for osteomyelitis and recurrent nonhealing wounds. Recent advanced imaging and clinical exam confirmed residual osteomyelitis of the 1st, 2nd, and 3rd metatarsal heads,
as well as possible osteomyelitis involving the medial calcaneus in the setting of a chronic medial heel wound. Given failure of conservative treatment, surgical intervention was recommended for infection control and limb salvage. Risks, benefits,
and alternatives were discussed with the patient, and informed consent was obtained.
Operative Findings:
Nonviable, infected bone of the 1st, 2nd, and 3rd metatarsal heads
Grossly infected tissue within the medial heel wound
Medial calcaneus appeared abnormal and was biopsied for culture and histopathology
Adequate bleeding and viable soft tissue at resection margins
Procedure in Detail:
The patient was taken to the operating room, placed supine, and appropriate anesthesia administered. The left lower extremity was prepped and draped in the usual sterile fashion.
1. Transmetatarsal Amputation:
Previous amputation site was noted with grossly necrotic and infected tissue. A fish-mouth incision was designed across the forefoot proximal to the metatarsal heads. Dissection was carried through skin, subcutaneous tissue, and extensor/flexor
tendons to the level of the metatarsal shafts. Periosteum was then gently lifted and the 1st through 5th metatarsals were transected with a sagittal saw just proximal to the heads, ensuring removal of all nonviable bone. The forefoot was sent for
pathology and microbiology. The resection margins demonstrated healthy bleeding bone. The wound was irrigated with copious sterile saline. Hemostasis was achieved. The transmetatarsal amputation site was closed in layers using 3-0 Vicryl for deep
tissues and 3-0 prolene for skin closure in a horizontal mattress fashion.
2. Medial Heel/Calcaneus Wound Debridement with Bone Biopsy:
Attention was directed to the chronic medial heel wound which demonstrated a fibronecrotic wound bed with a small area of communication to the calcaneus. Using a #15 blade and curette, all nonviable soft tissue, including necrotic skin,
subcutaneous tissue, and devitalized tissue, was sharply excised back to subcutaneous tissue with healthy, bleeding margins. Through the wound bed where the calcaneus was exposed, a curette and rongeur were used to debride the medial aspect of the
exposed calcaneus and a bone biopsy specimen from the medial calcaneus was obtaine. No gross purulence was expressed.
Sterile dressings were applied, and the foot was wrapped with a compressive bandage.
The patient tolerated the procedure well and was transferred to the PACU in stable condition.
Disposition:
The patient will be continued on IV antibiotics per Infectious Disease, non-weightbearing to the left lower extremity, and followed closely for wound care and healing progression. Will await calcaneus bone biopsy results for full antibiotic plan.
[2025-03-09 21:58] LABS: Glucose - Point of Care 376 mg/dl (70-99)
[2025-03-10] VITALS (8 sets, daily range): BP systolic 115–150; BP diastolic 62–79; BMI 38.0
[2025-03-10] MEDS: DILAUDID 0.5 MG IV ×4 (00:28→20:48)
[2025-03-10] MEDS: MAXIPIME 2000 MG IV ×3 (06:27→22:40)
[2025-03-10] MEDS: STERILE WATER FOR INJECTION 10 ML IV ×3 (06:27→22:40)
[2025-03-10 06:38] LABS: ALT (SGPT) < 10 U/L (0-50); AST (SGOT) 10 U/L (17-59); Albumin 3.0 g/dl (3.5-5.0); Alkaline Phosphatase 80 U/L (38-126); Blood Urea Nitrogen 38 mg/dl (9-20); Calcium 8.5 mg/dl (8.4-10.2); Carbon Dioxide 32 mmol/L (22-30); Chloride 100 mmol/L (98-107); Estimated Creatinine Clearance 99 ml/min; Glucose 421 mg/dl (70-99); Potassium 4.7 mmol/L (3.5-5.1); Sodium 136 mmol/L (135-145); Total Protein 6.2 g/dl (6.3-8.2); eGFR > 60.00
[2025-03-10 06:59] LABS: Hematocrit 20.4 % (39.0-52.0); Hemoglobin 6.6 g/dL (13.0-18.0); Mean Corp Hgb Conc. 32.4 g/dL (33.0-37.0); Mean Corpuscular Volume 87.2 fL (80.0-94.0); Platelet Count 506 10^3/uL (130-400); Red Cell Dist. Width 16.1 % (11.5-14.5)
[2025-03-10 07:26] LABS: Glucose - Point of Care 505 mg/dl (70-99)
[2025-03-10 08:05] LABS: Glucose 444 mg/dl (70-99)
[2025-03-10] MEDS: LR 1000 IV (08:15)
[2025-03-10] MEDS: LANTUS 0.35 UNITS SC ×2 (08:15→20:48)
[2025-03-10] MEDS: NOVOLOG FLEXPEN-HIGH RESISTANCE 14 UNITS SC ×2 (08:16→13:02)
[2025-03-10] MEDS: NOVOLOG FLEXPEN 12 UNITS SC ×3 (08:16→17:37)
[2025-03-10] MEDS: DEMADEX 40 MG PO (08:18)
[2025-03-10] MEDS: NEURONTIN 300 MG PO ×3 (08:18→22:40)
[2025-03-10] MEDS: ASPIR LOW (ENTERIC COATED) 81 MG PO (08:18)
[2025-03-10] MEDS: PROTONIX 40 MG PO (08:18)
[2025-03-10] MEDS: CYMBALTA DELAYED RELEASE 30 MG PO (08:18)
[2025-03-10] MEDS: RANEXA EXTENDED RELEASE 1000 MG PO ×2 (08:18→20:42)
[2025-03-10] MEDS: IMDUR (EXTENDED RELEASE) 60 MG PO (08:18)
[2025-03-10] MEDS: COREG 25 MG PO ×2 (08:19→20:42)
[2025-03-10] MEDS: NOVOLOG FLEXPEN SC ×2 (08:20→17:35)
[2025-03-10 10:05] LABS: Glucose - Point of Care 407 mg/dl (70-99)
[2025-03-10] MEDS: NORCO 7.5/325 1 TABLET PO (10:21)
[2025-03-10 10:50] LABS: Glucose 375 mg/dl (70-99)
[2025-03-10 12:41] LABS: Glucose - Point of Care 437 mg/dl (70-99)
--- NOTE | 2025-03-10 12:45 | CM ---
CM following re: discharge planning.
Reviewed pt's chart.
Pt is admitted from [facility] and a plan is to discharge pt back to [facility] when medically stable.
[facility] Report: [phone]
[facility]
Plan: Discharge back to [facility] when medically stable
--- NOTE | 2025-03-10 13:04 | W.PN.HOSP.TC ---
Today's Communication/Plan
-
transfuse 1 unit prbc, monitor hgb
glucose/insulin adjustment
cont abx
await cultures
Assessment / Plan
Assessment / Plan
A/P: Patient is a 29y M with PMH significant for DM-I, ASCVD and osteomyelitis s/p digital amputations who presents to ED from local group home complaining of L foot pain and bleeding.
#Non-Healing Left Foot Wound with Bleeding
XR with large soft tissue wound and severe diffuse soft tissue swelling as well as severe PAD
- Podiatry re-evaluation for local care.
-MRI�evidence of acute osteomyelitis in the 1st and 2nd metatarsal heads, medial side of the third metatarsal head and base of the proximal phalanx of the third toe, severe cellulitis throughout the dorsal left foot, probable mild acute
osteomyelitis in the posterior -medial calcaneus deep to soft tissue ulcer and mild cellulitis
-wound dehiscence of recent left hallux and second toe amputation (01/21/25)
-wound care consulted
-wound cx pending, gram-negative bacilli growing
-BCx NGTD
-empiric abx cefepime
-holding plavix
#Sepsis
#Positive blood cultures
#Osteomyelitis
-empiric abx as above
- wound dehiscence of recent left hallux and second toe amputation (01/21/25)
- 03/08 s/p L TMA, heel debridement, and calcaneus biopsy
- Await OR heel biopsy and cx
- - Continue cefepime.
# Diphtheroid bacteremia x 2 drawn at the same time
# Gram positive bacilli 1 of 4 bottles
- Both skin contaminants
- Repeat blood cx's neg
Acute Blood Loss Anemia secondary to the above
Chronic Anemia
Hgb 6, s/p 2 unit PRBC in ED; Repeat unit 03/10 - total 3 units
- discontinued plavix
-stop Plavix (PCI over one year ago)
monitor h/h
ASCVD
- Stable. Continue ASA as noted above. Discontinue Plavix.
DM
- BG uncontrolled. Lantus 35 units BID, lispro 12 units TID-meals, SSI high
- A1C = 8.1% last admission.
CKD III
- SCr improving from recent admission / AMBER. Pt reports his b/l Cr is 1.1
1.5 on discharge last admission but has not resolved.
- Hold / discontinue Bactrim.
- Avoid nephrotoxic agents.
- Follow for changes in SCr.
BLE edema
resume torsemide but monitor Cr closely
CIDP
- Stable. Continue current med regimen.
- Previously received PLEX in [place] - need OP follow-up to arrange similar treatments locally.
DVT Prophylaxis: Unable to tolerate SCDs. Holding pharmacologic prophylaxis due to bleeding.
Code Status: Full
Total time spent on today's encounter was 52 minutes which included time spent in counseling the patient/family regarding diagnosis and treatment plan as listed above, goals of care, and symptom management. Case was discussed with nursing staff,
specialists, and care coordinators/case management. All labs and imaging personally reviewed by me. Remainder the time spent in detailed review of previous records, lab data, imaging, and other medical provider documentation.
Anticipated Discharge: 24 - 48 hours
Subjective/Interval History
-
Date of Service: March 10, 2025
No events overnight
Objective Data
-
Labs:
Laboratory Results
03/10/25 03/10/25 03/10/25
06:00 07:39 10:25
WBC 11.4 H
Hgb 6.6 L*
Hct 20.4 L*
Plt Count 506 H
Sodium 136
Potassium 4.7
Chloride 100
Carbon Dioxide 32 H
BUN 38 H
Creatinine 1.3
Glucose 421 H 444 H 375 H
Calcium 8.5
Total Bilirubin 0.4
AST 10 L
ALT < 10
Alkaline Phosphatase 80
Vital Signs:
Vital Signs
Temp Pulse Resp BP Pulse Ox
97.8 F 82 16 116/62 99
03/10/25 11:46 03/10/25 11:46 03/10/25 11:46 03/10/25 11:46 03/10/25 11:46
I&O
03/09/25 03/10/25 03/11/25
06:59 06:59 06:59
Intake Total 720 / 720 3000 / 3000 0 / 0
Output Total 3300 / 3300 4400 / 4400
Balance -2580 / -2580 -1400 / -1400 0 / 0
Review of Systems
-
History Source: Patient
All other systems: Not reviewed unless documented
Physical Exam
-
General: No Apparent Distress and Obese
HEENT: Moist Mucous Membranes, Anicteric and PERRLA
Respiratory: Clear to Auscultation; Negative Wheezes, Rales or Rhonchi
Cardiac: Regular Rhythm and S1/S2; Negative Murmur, Rub or Gallop
GI: Soft, Nontender, Nondistended and Normal Bowel Sounds
Musculoskeletal: Edema, Left Lower Extrem and Other (R BKA; left hallux and second toe amputation (01/21/25); left foot wrapped in andriy)
Skin: Warm and Dry; Negative Rash
Neuro: Awake and AO x 3
Hematologic / Lymphatic: No Lymphadenopathy
Psych: Calm
Data Reviewed
-
Diagnostic Radiology: Report Reviewed by me and Discussed with Physician
MRI: Report Reviewed by me
Labs: Labs Reviewed by me
[2025-03-10 14:07] LABS: Glucose - Point of Care 472 mg/dl (70-99)
[2025-03-10] MEDS: NOVOLOG FLEXPEN 5 UNITS SC (14:30)
[2025-03-10] MEDS: NOVOLOG vial 10 UNITS SC (14:30)
[2025-03-10 15:30] LABS: Glucose - Point of Care 364 mg/dl (70-99)
[2025-03-10 17:05] LABS: Glucose - Point of Care 317 mg/dl (70-99)
[2025-03-10] MEDS: NOVOLOG FLEXPEN-HIGH RESISTANCE 10 UNITS SC (17:37)
[2025-03-10 20:47] LABS: Glucose - Point of Care 208 mg/dl (70-99)
[2025-03-10] MEDS: LIPITOR 80 MG PO (22:40)
[2025-03-10] MEDS: REMERON 15 MG PO (22:40)
[2025-03-11 04:59] VITALS: BMI 38.1
[2025-03-11] MEDS: DILAUDID 0.5 MG IV ×4 (05:15→18:18)
[2025-03-11] MEDS: MAXIPIME 2000 MG IV (05:15)
[2025-03-11] MEDS: STERILE WATER FOR INJECTION 10 ML IV ×3 (05:16→23:16)
--- NOTE | 2025-03-11 06:18 | PTCARENOTE ---
Pt encouraged throughout shift to straight cath. Patient refused to straight cath throughout shift. Patient educated on importance of straight cathing and UTI prevention.
[2025-03-11 07:00] VITALS: BP 146/81
[2025-03-11 07:16] LABS: Glucose - Point of Care 282 mg/dl (70-99)
[2025-03-11] MEDS: NOVOLOG FLEXPEN-HIGH RESISTANCE 7 UNITS SC (08:02)
[2025-03-11] MEDS: NOVOLOG FLEXPEN 12 UNITS SC ×3 (08:03→18:07)
[2025-03-11] MEDS: LANTUS 0.35 UNITS SC ×2 (08:05→21:32)
[2025-03-11] MEDS: NEURONTIN 300 MG PO ×3 (08:06→21:31)
[2025-03-11] MEDS: IMDUR (EXTENDED RELEASE) 60 MG PO (08:06)
[2025-03-11] MEDS: RANEXA EXTENDED RELEASE 1000 MG PO ×2 (08:06→21:31)
[2025-03-11] MEDS: PROTONIX 40 MG PO (08:06)
[2025-03-11] MEDS: CYMBALTA DELAYED RELEASE 30 MG PO (08:06)
[2025-03-11] MEDS: COREG 25 MG PO ×2 (08:06→21:32)
[2025-03-11 08:08] LABS: Hematocrit 26.1 % (39.0-52.0); Hemoglobin 8.2 g/dL (13.0-18.0); Mean Corp Hgb Conc. 31.4 g/dL (33.0-37.0); Mean Corpuscular Volume 89.1 fL (80.0-94.0); Platelet Count 556 10^3/uL (130-400); Red Cell Dist. Width 16.0 % (11.5-14.5)
[2025-03-11] MEDS: DEMADEX 40 MG PO (08:08)
[2025-03-11] MEDS: ASPIR LOW (ENTERIC COATED) 81 MG PO (08:08)
[2025-03-11 08:23] LABS: ALT (SGPT) < 10 U/L (0-50); AST (SGOT) 12 U/L (17-59); Albumin 3.2 g/dl (3.5-5.0); Alkaline Phosphatase 75 U/L (38-126); Blood Urea Nitrogen 36 mg/dl (9-20); Calcium 8.4 mg/dl (8.4-10.2); Carbon Dioxide 35 mmol/L (22-30); Chloride 100 mmol/L (98-107); Estimated Creatinine Clearance 92 ml/min; Glucose 264 mg/dl (70-99); Potassium 4.5 mmol/L (3.5-5.1); Sodium 142 mmol/L (135-145); Total Protein 6.6 g/dl (6.3-8.2); eGFR > 60.00
--- NOTE | 2025-03-11 11:19 | CM ---
CM following re: discharge planning.
Reviewed pt's chart.
Pt is admitted from [facility] and a plan is to discharge pt back to [facility] when medically stable.
[facility] Report: [phone]
[facility]
Plan: Discharge back to [facility] when medically stable
--- NOTE | 2025-03-11 12:29 | W.PN.HOSP.TC ---
Today's Communication/Plan
-
await cultures
abx
glucose better controlled today
Assessment / Plan
Assessment / Plan
A/P: Patient is a 29y M with PMH significant for DM-I, ASCVD and osteomyelitis s/p digital amputations who presents to ED from local residential complaining of L foot pain and bleeding.
#Non-Healing Left Foot Wound with Bleeding
XR with large soft tissue wound and severe diffuse soft tissue swelling as well as severe PAD
- Podiatry re-evaluation for local care.
-MRI�evidence of acute osteomyelitis in the 1st and 2nd metatarsal heads, medial side of the third metatarsal head and base of the proximal phalanx of the third toe, severe cellulitis throughout the dorsal left foot, probable mild acute
osteomyelitis in the posterior -medial calcaneus deep to soft tissue ulcer and mild cellulitis
-wound dehiscence of recent left hallux and second toe amputation (01/21/25)
-wound care consulted
-wound cx pending, gram-negative bacilli growing
-BCx NGTD
-empiric abx cefepime
-holding plavix
#Sepsis
#Positive blood cultures
#Osteomyelitis
-empiric abx as above
- wound dehiscence of recent left hallux and second toe amputation (01/21/25)
- 03/08 s/p L TMA, heel debridement, and calcaneus biopsy
- Await OR heel biopsy and cx
- - Continue cefepime.
# Diphtheroid bacteremia x 2 drawn at the same time
# Gram positive bacilli 1 of 4 bottles
- Both skin contaminants
- Repeat blood cx's neg
Acute Blood Loss Anemia secondary to the above
Chronic Anemia
Hgb 6, s/p 2 unit PRBC in ED; Repeat unit 03/10 - total 3 units
- discontinued plavix
-stop Plavix (PCI over one year ago)
monitor h/h
ASCVD
- Stable. Continue ASA as noted above. Discontinue Plavix.
DM
- BG uncontrolled. Lantus 35 units BID, lispro 12 units TID-meals, SSI high
- A1C = 8.1% last admission.
CKD III
- SCr improving from recent admission / AMBER. Pt reports his b/l Cr is 1.1
1.5 on discharge last admission but has not resolved.
- Hold / discontinue Bactrim.
- Avoid nephrotoxic agents.
- Follow for changes in SCr.
BLE edema
resume torsemide but monitor Cr closely
CIDP
- Stable. Continue current med regimen.
- Previously received PLEX in [place] - need OP follow-up to arrange similar treatments locally.
DVT Prophylaxis: Unable to tolerate SCDs. Holding pharmacologic prophylaxis due to bleeding.
Code Status: Full
Anticipated Discharge: 24 - 48 hours
Subjective/Interval History
-
Date of Service: March 11, 2025
no acute events overnight
Objective Data
-
Labs:
Laboratory Results
03/11/25
07:03
WBC 11.8 H
Hgb 8.2 L D
Hct 26.1 L
Plt Count 556 H
Sodium 142
Potassium 4.5
Chloride 100
Carbon Dioxide 35 H
BUN 36 H
Creatinine 1.4 H
Glucose 264 H
Calcium 8.4
Total Bilirubin 0.3
AST 12 L
ALT < 10
Alkaline Phosphatase 75
Vital Signs:
Vital Signs
Temp Pulse Resp BP Pulse Ox
98 F 88 18 146/81 96
03/11/25 07:00 03/11/25 08:08 03/11/25 07:00 03/11/25 08:08 03/11/25 08:00
I&O
03/10/25 03/11/25 03/12/25
06:59 06:59 06:59
Intake Total 3000 / 3000 2170 / 2170
Output Total 4400 / 4400 4670 / 4670
Balance -1400 / -1400 -2500 / -2500
Review of Systems
-
History Source: Patient
All other systems: Not reviewed unless documented
Data Reviewed
-
Diagnostic Radiology: Report Reviewed by me and Discussed with Physician
MRI: Report Reviewed by me
Labs: Labs Reviewed by me
[2025-03-11] MEDS: NOVOLOG FLEXPEN-HIGH RESISTANCE 4 UNITS SC (12:46)
[2025-03-11 12:47] LABS: Glucose - Point of Care 227 mg/dl (70-99)
--- NOTE | 2025-03-11 14:11 | W.PN.ID1 ---
Date of Service
Date of Service: March 11, 2025
Today's Communication
Replace cefepime with meropenem.
Await heel bone path.
Assessment / Plan
# Acute Osteomyelitis of left first, second, third met heads
# Possible underlying osteo of chronic left heel wound
# Fever resolved
- wound dehiscence of recent left hallux and second toe amputation (01/21/25)
- 03/08 s/p L TMA, heel debridement, and calcaneus biopsy
- OR cx: MDR-Enterobacter, MSSA, proteus, enterococcus
- Awaiting OR heel biopsy to determine length of abx
- Replace cefepime with meropenem.
# Pruritic rash
- rash persists despite off Vancomycin and therefore not due to Vancomycin
-? due to cefepime -> dc'd
- Supportive care
# Diphtheroid bacteremia x 2 drawn at the same time
# Gram positive bacilli 1 of 4 bottles
- Both skin contaminants
- Repeat blood cx's neg
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
Diabetes mellitus
CAD status post PCI
CHF
hx CKD3
Hypertension
Guillain-Potts� syndrome/CIDP, plasma exchange q 2 months
PAD status post right BKA
Left hallux and second toe osteomyelitis status post amputation and debridement of left heel ulcer January 21, 2025
Incarcerated
Chief Complaint
-: Other (osteo)
Subjective / Review of Systems
Itchy rash still present, no worse, no better.
Vital Signs / Physical Exam
Vital Signs
Vital Signs
Temp Pulse Resp BP Pulse Ox
98 F 88 18 146/81 96
03/11/25 07:00 03/11/25 08:08 03/11/25 07:00 03/11/25 08:08 03/11/25 08:00
Physical Exam
Constitutional: No Acute Distress
Cardiovascular: Regular Rate and S1/S2
Pulmonary: Clear
Gastrointestinal: Soft, Non Tender and Non Distended
Skin: Rash (erythematous round macules/patches on thighs, back, hand)
Wound: Other (Left foot dressing dry)
Neurological: AO x 3
Objective Data
Lab Data
Lab Results
03/11/25 07:03
03/11/25 07:03
Estimated Creat Clear 92 ml/min 03/11/25 07:03
Lactic Acid 1.3 mmol/L (0.7-2.0) 03/05/25 05:01
Total Bilirubin 0.3 mg/dl (0.2-1.3) 03/11/25 07:03
AST 12 U/L (17-59) L 03/11/25 07:03
ALT < 10 U/L (0-50) 03/11/25 07:03
Alkaline Phosphatase 75 U/L (38-126) 03/11/25 07:03
Most recent labs reviewed.
Micro Results:
03/06/25 13:54 Blood Culture - Final
Blood/Venous No Growth - Final Report
03/06/25 13:08 Blood Culture - Final
Blood/Venous No Growth - Final Report
03/05/25 01:09 Blood Culture - Final
Blood/Venous Diptheroids
Gram Stain - Final
03/08/25 18:14 Wound Culture - Preliminary
Foot - Left Proteus mirabilis
Enterobacter cloacae
Enterococcus faecalis
S aureus-Methicillin Sensitive
Gram Stain - Preliminary
03/07/25 14:26 Blood Culture - Preliminary
Blood/Venous No Growth in 72 hours- Final report to follow
03/08/25 18:14 Anaerobic Culture - Preliminary
Foot - Left Culture pending. Anaerobic cultures are examined after 3
days incubation. Additional information to follow.
03/05/25 07:07 Wound Culture - Final
Foot - Left Proteus mirabilis
Enterobacter cloacae
Enterococcus faecalis
S aureus-Methicillin Sensitive
Gram Stain - Final
03/05/25 01:09 Blood Culture - Final
Blood/Venous Diptheroids
Gram Stain - Final
03/05/25 16:28 Urine Culture - Final
Urine NO GROWTH
03/05/25 09:02 MRSA Screen - Final
Nose No Methicillin Resistant Staphylococcus aureus isolated.
03/07/25 MRI LLE: ACUTE OSTEOMYELITIS in the 1st and 2nd METATARSAL HEADS (and in the sesamoid bones plantar to the 1st metatarsal head) which extends 1.7 cm deep to the distal articular surfaces.
2. Mild acute osteomyelitis in the medial side of the 3rd metatarsal head and base of the proximal phalanx of the 3rd toe.
3. Large soft tissue wound distal to the 1st and 2nd metatarsal heads at the site of previous left great toe and 2nd toe amputation.
4. SEVERE CELLULITIS throughout the dorsal left foot.
5. Probable mild acute osteomyelitis in the posteromedial calcaneus deep to a soft tissue ulcer and mild cellulitis.
03/05/25 CXR: No radiographic evidence for pneumonia.
[2025-03-11] MEDS: MAXIPIME IV (14:15)
[2025-03-11] MEDS: STERILE WATER FOR INJECTION IV (14:15)
[2025-03-11 15:00] VITALS: BP 126/72
[2025-03-11] MEDS: MERREM 500 MG IV ×2 (17:58→23:17)
[2025-03-11 18:05] LABS: Glucose - Point of Care 173 mg/dl (70-99)
[2025-03-11] MEDS: NOVOLOG FLEXPEN-HIGH RESISTANCE 2 UNITS SC (18:06)
--- NOTE | 2025-03-11 19:32 | W.PN.UPDATE ---
Update Note
Progress Note Update
29M s/p L TMA primarily closed, and left heel wound debridement with calcaneus biopsy. Today with anticipated pain. incision clean, no drainage w/ skin well reapproximated, no hematoma. heel wound w/ granular bed
-Dressings to remain C/D/I
-- redressed today, betadine paint to incision and xeroform over heel wound, dsd, andriy
-Follow up 2x pathology (left forefoot, left calcaneus biopsy), 1x culture
-Continue antibiotics, await final antibiotic plan pending calcaneus biopsy
- continue ice/ elevation/ meds for analgesia
-NWB to LLE
-PT/OT
-No further surgical plans
[2025-03-11] MEDS: LIPITOR 80 MG PO (21:31)
[2025-03-11] MEDS: REMERON 15 MG PO (21:31)
[2025-03-11 22:57] LABS: Glucose - Point of Care 162 mg/dl (70-99)
[2025-03-11 23:01] VITALS: BP 147/79
[2025-03-12] MEDS: STERILE WATER FOR INJECTION 10 ML IV ×3 (05:28→17:57)
[2025-03-12] MEDS: MERREM 500 MG IV ×3 (05:29→17:57)
[2025-03-12 07:14] VITALS: BP 148/83
[2025-03-12 07:15] LABS: Glucose - Point of Care 106 mg/dl (70-99)
[2025-03-12] MEDS: NOVOLOG FLEXPEN-HIGH RESISTANCE SC ×2 (07:30→12:30)
[2025-03-12 07:44] LABS: Hematocrit 24.7 % (39.0-52.0); Hemoglobin 8.0 g/dL (13.0-18.0); Mean Corp Hgb Conc. 32.4 g/dL (33.0-37.0); Mean Corpuscular Volume 87.6 fL (80.0-94.0); Platelet Count 550 10^3/uL (130-400); Red Cell Dist. Width 16.1 % (11.5-14.5)
[2025-03-12 08:22] LABS: ALT (SGPT) < 10 U/L (0-50); AST (SGOT) 13 U/L (17-59); Albumin 3.1 g/dl (3.5-5.0); Alkaline Phosphatase 72 U/L (38-126); Blood Urea Nitrogen 36 mg/dl (9-20); Calcium 8.4 mg/dl (8.4-10.2); Carbon Dioxide 35 mmol/L (22-30); Chloride 100 mmol/L (98-107); Estimated Creatinine Clearance 99 ml/min; Glucose 90 mg/dl (70-99); Potassium 3.8 mmol/L (3.5-5.1); Sodium 141 mmol/L (135-145); Total Protein 6.4 g/dl (6.3-8.2); eGFR > 60.00
[2025-03-12] MEDS: RANEXA EXTENDED RELEASE 1000 MG PO ×2 (08:36→20:57)
[2025-03-12] MEDS: LANTUS 0.35 UNITS SC (08:36)
[2025-03-12] MEDS: DEMADEX 40 MG PO (08:36)
[2025-03-12] MEDS: PROTONIX 40 MG PO (08:36)
[2025-03-12] MEDS: NEURONTIN 300 MG PO ×3 (08:36→22:13)
[2025-03-12] MEDS: IMDUR (EXTENDED RELEASE) 60 MG PO (08:36)
[2025-03-12] MEDS: ASPIR LOW (ENTERIC COATED) 81 MG PO (08:36)
[2025-03-12] MEDS: CYMBALTA DELAYED RELEASE 30 MG PO (08:36)
[2025-03-12] MEDS: COREG 25 MG PO ×2 (08:36→20:57)
[2025-03-12] MEDS: NOVOLOG FLEXPEN 12 UNITS SC (08:37)
[2025-03-12] MEDS: DILAUDID 0.5 MG IV (08:44)
[2025-03-12] MEDS: NORCO 7.5/325 1 TABLET PO ×2 (11:34→16:21)
--- NOTE | 2025-03-12 11:54 | W.PN.HOSP.TC ---
Today's Communication/Plan
-
Monitor pruritic rash while on meropenem
Await or biopsy
Reduce insulin dosing
Reduce Dilaudid to 2.5 mg
Assessment / Plan
Assessment / Plan
A/P: Patient is a 29y M with PMH significant for DM-I, ASCVD and osteomyelitis s/p digital amputations who presents to ED from local [facility] complaining of L foot pain and bleeding.
#Non-Healing Left Foot Wound with Bleeding
XR with large soft tissue wound and severe diffuse soft tissue swelling as well as severe PAD
- Podiatry re-evaluation for local care.
-MRI�evidence of acute osteomyelitis in the 1st and 2nd metatarsal heads, medial side of the third metatarsal head and base of the proximal phalanx of the third toe, severe cellulitis throughout the dorsal left foot, probable mild acute
osteomyelitis in the posterior -medial calcaneus deep to soft tissue ulcer and mild cellulitis
-wound dehiscence of recent left hallux and second toe amputation (01/21/25)
-wound care consulted
-OR cultures: MDR-Enterobacter, MSSA, proteus, enterococcus
- Awaiting OR heel biopsy to determine length of abx
-BCx NGTD
-cefepime - switched to Meropenem due to rash
-holding plavix
#Sepsis
#Positive blood cultures
#Osteomyelitis
-empiric abx as above
- wound dehiscence of recent left hallux and second toe amputation (01/21/25)
- 03/08 s/p L TMA, heel debridement, and calcaneus biopsy
- Await OR heel biopsy
- Cefepime switched to Meropenem due to pruritic rash
# Diphtheroid bacteremia x 2 drawn at the same time
# Gram positive bacilli 1 of 4 bottles
- Both skin contaminants
- Repeat blood cx's neg
Acute Blood Loss Anemia secondary to the above
Chronic Anemia
Hgb 6, s/p 2 unit PRBC in ED; Repeat unit 8/28 - total 3 units
- discontinued plavix
-stop Plavix (PCI over one year ago)
monitor h/h
ASCVD
- Stable. Continue ASA as noted above. Discontinue Plavix.
DM
- BG uncontrolled. Lantus 32 units BID, lispro 10 units TID-meals, SSI high
- A1C = 8.1% last admission.
CKD III
- SCr improving from recent admission / AMBER. Pt reports his b/l Cr is 1.1
1.5 on discharge last admission but has not resolved.
- Hold / discontinue Bactrim.
- Avoid nephrotoxic agents.
- Follow for changes in SCr.
BLE edema
resume torsemide but monitor Cr closely
CIDP
- Stable. Continue current med regimen.
- Previously received PLEX in [place] - need OP follow-up to arrange similar treatments locally.
DVT Prophylaxis: Unable to tolerate SCDs. Holding pharmacologic prophylaxis due to bleeding.
Code Status: Full
Anticipated Discharge: > 48 hours
Subjective/Interval History
-
Date of Service: March 12, 2025
Papular rash improving after changing abx
Objective Data
-
Labs:
Laboratory Results
03/12/25
07:06
WBC 13.2 H
Hgb 8.0 L
Hct 24.7 L
Plt Count 550 H
Sodium 141
Potassium 3.8
Chloride 100
Carbon Dioxide 35 H
BUN 36 H
Creatinine 1.3
Glucose 90
Calcium 8.4
Total Bilirubin 0.4
AST 13 L
ALT < 10
Alkaline Phosphatase 72
Vital Signs:
Vital Signs
Temp Pulse Resp BP Pulse Ox
98.6 F 87 18 148/83 97
03/12/25 07:14 03/12/25 07:14 03/12/25 07:14 03/12/25 07:14 03/12/25 07:14
I&O
03/11/25 03/12/25 03/13/25
06:59 06:59 06:59
Intake Total 2170 / 2170 2760 / 2760
Output Total 4670 / 4670 1000 / 1000
Balance -2500 / -2500 1760 / 1760
Review of Systems
-
History Source: Patient
All other systems: Not reviewed unless documented
Physical Exam
-
General: No Apparent Distress and Obese
HEENT: Moist Mucous Membranes, Anicteric and PERRLA
Respiratory: Clear to Auscultation; Negative Wheezes, Rales or Rhonchi
Cardiac: Regular Rhythm and S1/S2; Negative Murmur, Rub or Gallop
GI: Soft, Nontender, Nondistended and Normal Bowel Sounds
Musculoskeletal: Edema, Left Lower Extrem and Other (R BKA; left hallux and second toe amputation (01/21/25); left foot wrapped in andriy)
Skin: Warm and Dry; Negative Rash
Neuro: Awake and AO x 3
Hematologic / Lymphatic: No Lymphadenopathy
Psych: Calm
Data Reviewed
-
Diagnostic Radiology: Report Reviewed by me and Discussed with Physician
MRI: Report Reviewed by me
Labs: Labs Reviewed by me
[2025-03-12 12:23] LABS: Glucose - Point of Care 139 mg/dl (70-99)
[2025-03-12] MEDS: NOVOLOG FLEXPEN 10 UNITS SC ×2 (12:40→16:40)
[2025-03-12 15:00] VITALS: BP 108/59
[2025-03-12 16:36] LABS: Glucose - Point of Care 197 mg/dl (70-99)
[2025-03-12] MEDS: NOVOLOG FLEXPEN-HIGH RESISTANCE 2 UNITS SC (16:39)
[2025-03-12 20:33] LABS: Glucose - Point of Care 136 mg/dl (70-99)
[2025-03-12] MEDS: LANTUS 0.32 UNITS SC (20:57)
[2025-03-12] MEDS: DILAUDID 0.25 MG IV (22:12)
[2025-03-12] MEDS: LIPITOR 80 MG PO (22:13)
[2025-03-12] MEDS: REMERON 15 MG PO (22:13)
[2025-03-12 23:20] VITALS: BP 134/74
[2025-03-13] MEDS: STERILE WATER FOR INJECTION 10 ML IV ×5 (00:47→23:07)
[2025-03-13] MEDS: MERREM 500 MG IV ×5 (00:47→23:07)
[2025-03-13] MEDS: DILAUDID 0.25 MG IV ×5 (02:26→20:32)
[2025-03-13 06:43] LABS: ALT (SGPT) < 10 U/L (0-50); AST (SGOT) 18 U/L (17-59); Albumin 3.1 g/dl (3.5-5.0); Alkaline Phosphatase 64 U/L (38-126); Blood Urea Nitrogen 38 mg/dl (9-20); Calcium 8.1 mg/dl (8.4-10.2); Carbon Dioxide 34 mmol/L (22-30); Chloride 97 mmol/L (98-107); Estimated Creatinine Clearance 108 ml/min; Glucose 98 mg/dl (70-99); Potassium 3.7 mmol/L (3.5-5.1); Sodium 137 mmol/L (135-145); Total Protein 6.3 g/dl (6.3-8.2); eGFR > 60.00
[2025-03-13] MEDS: FLUSH (NSS) 3 FLUSH IV (06:47)
[2025-03-13 06:52] LABS: Hematocrit 23.3 % (39.0-52.0); Hemoglobin 7.6 g/dL (13.0-18.0); Mean Corp Hgb Conc. 32.6 g/dL (33.0-37.0); Mean Corpuscular Volume 86.6 fL (80.0-94.0); Platelet Count 431 10^3/uL (130-400); Red Cell Dist. Width 16.2 % (11.5-14.5)
[2025-03-13 07:14] VITALS: BP 142/80
[2025-03-13 08:29] LABS: Glucose - Point of Care 139 mg/dl (70-99)
[2025-03-13] MEDS: NOVOLOG FLEXPEN-HIGH RESISTANCE SC ×2 (08:30→17:26)
[2025-03-13] MEDS: DEMADEX 40 MG PO (08:34)
[2025-03-13] MEDS: NOVOLOG FLEXPEN 10 UNITS SC ×3 (08:35→17:33)
[2025-03-13] MEDS: PROTONIX 40 MG PO (08:35)
[2025-03-13] MEDS: IMDUR (EXTENDED RELEASE) 60 MG PO (08:35)
[2025-03-13] MEDS: NEURONTIN 300 MG PO ×3 (08:35→23:07)
[2025-03-13] MEDS: ASPIR LOW (ENTERIC COATED) 81 MG PO (08:35)
[2025-03-13] MEDS: COREG 25 MG PO ×2 (08:35→20:34)
[2025-03-13] MEDS: CYMBALTA DELAYED RELEASE 30 MG PO (08:35)
[2025-03-13] MEDS: RANEXA EXTENDED RELEASE 1000 MG PO ×2 (08:35→20:32)
[2025-03-13] MEDS: LANTUS 0.32 UNITS SC ×2 (08:35→20:33)
--- NOTE | 2025-03-13 08:37 | PTCARENOTE ---
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 BAN[employer]AD notified and ordered to cover L.foot with a pressure dressing and elevate the L. foot. L.foot has a pressure dressing and is elevated.
[2025-03-13 10:28] VITALS: BMI 38.1
--- NOTE | 2025-03-13 12:44 | W.PN.HOSP.TC ---
Today's Communication/Plan
-
await bx results
abx
Assessment / Plan
Assessment / Plan
A/P: Patient is a 29y M with PMH significant for DM-I, ASCVD and osteomyelitis s/p digital amputations who presents to ED from local assisted complaining of L foot pain and bleeding.
#Non-Healing Left Foot Wound with Bleeding
XR with large soft tissue wound and severe diffuse soft tissue swelling as well as severe PAD
- Podiatry re-evaluation for local care.
-MRI�evidence of acute osteomyelitis in the 1st and 2nd metatarsal heads, medial side of the third metatarsal head and base of the proximal phalanx of the third toe, severe cellulitis throughout the dorsal left foot, probable mild acute
osteomyelitis in the posterior -medial calcaneus deep to soft tissue ulcer and mild cellulitis
-wound dehiscence of recent left hallux and second toe amputation (01/21/25)
- 03/08 s/p L TMA, heel debridement, and calcaneus biopsy
-wound care consulted
-OR cultures: MDR-Enterobacter, MSSA, proteus, enterococcus
- Awaiting OR heel biopsy to determine length of abx
-BCx NGTD
-cefepime - switched to Meropenem due to rash
-stopped plavix
#Sepsis
#Positive blood cultures
#Osteomyelitis
- abx as above
- wound dehiscence of recent left hallux and second toe amputation (01/21/25)
- 03/08 s/p L TMA, heel debridement, and calcaneus biopsy
- Await OR heel biopsy
- Cefepime switched to Meropenem due to pruritic rash
# Diphtheroid bacteremia x 2 drawn at the same time
# Gram positive bacilli 1 of 4 bottles
- Both skin contaminants
- Repeat blood cx's neg
Acute Blood Loss Anemia secondary to the above
Chronic Anemia
Hgb 6, s/p 2 unit PRBC in ED; Repeat unit 03/10 - total 3 units
- discontinued plavix
-stop Plavix (PCI over one year ago)
monitor h/h
ASCVD
- Stable. Continue ASA as noted above. Discontinue Plavix.
DM
- BG uncontrolled. Lantus 32 units BID, lispro 10 units TID-meals, SSI high
- A1C = 8.1% last admission.
CKD III
- SCr improving from recent admission / AMBER. Pt reports his b/l Cr is 1.1
1.5 on discharge last admission but has not resolved.
- Hold / discontinue Bactrim.
- Avoid nephrotoxic agents.
- Follow for changes in SCr.
BLE edema
resume torsemide but monitor Cr closely
CIDP
- Stable. Continue current med regimen.
- Previously received PLEX in [place] - need OP follow-up to arrange similar treatments locally.
DVT Prophylaxis: Unable to tolerate SCDs. Holding pharmacologic prophylaxis due to bleeding.
Code Status: Full
Anticipated Discharge: > 48 hours
Subjective/Interval History
-
Date of Service: March 13, 2025
No acute events overnight
Objective Data
-
Labs:
Laboratory Results
03/13/25
05:51
WBC 13.6 H
Hgb 7.6 L
Hct 23.3 L
Plt Count 431 H D
Sodium 137
Potassium 3.7
Chloride 97 L
Carbon Dioxide 34 H
BUN 38 H
Creatinine 1.2
Glucose 98
Calcium 8.1 L
Total Bilirubin 0.4
AST 18
ALT < 10
Alkaline Phosphatase 64
Vital Signs:
Vital Signs
Temp Pulse Resp BP Pulse Ox
98.0 F 87 18 142/80 96
03/13/25 07:14 03/13/25 07:14 03/13/25 07:14 03/13/25 08:34 03/13/25 07:14
I&O
03/12/25 03/13/25 03/14/25
06:59 06:59 06:59
Intake Total 2760 / 2760 2420 / 2420
Output Total 1000 / 1000 4950 / 4950 1700 / 1700
Balance 1760 / 1760 -2530 / -2530 -1700 / -1700
Review of Systems
-
History Source: Patient
All other systems: Not reviewed unless documented
Data Reviewed
-
Diagnostic Radiology: Report Reviewed by me and Discussed with Physician
MRI: Report Reviewed by me
Labs: Labs Reviewed by me
[2025-03-13 13:10] LABS: Glucose - Point of Care 204 mg/dl (70-99)
[2025-03-13] MEDS: NOVOLOG FLEXPEN-HIGH RESISTANCE 4 UNITS SC (13:13)
[2025-03-13 15:03] VITALS: BP 101/55
[2025-03-13 16:59] LABS: Glucose - Point of Care 140 mg/dl (70-99)
[2025-03-13 21:36] LABS: Glucose - Point of Care 214 mg/dl (70-99)
[2025-03-13] MEDS: LIPITOR 80 MG PO (22:45)
[2025-03-13] MEDS: REMERON 15 MG PO (22:45)
[2025-03-13 23:03] VITALS: BP 132/66
[2025-03-14] MEDS: DILAUDID 0.25 MG IV ×6 (02:11→23:37)
[2025-03-14] MEDS: STERILE WATER FOR INJECTION 10 ML IV ×4 (05:32→23:37)
[2025-03-14] MEDS: MERREM 500 MG IV ×4 (05:32→23:37)
[2025-03-14 06:35] LABS: Hematocrit 23.5 % (39.0-52.0); Hemoglobin 7.7 g/dL (13.0-18.0); Mean Corp Hgb Conc. 32.8 g/dL (33.0-37.0); Mean Corpuscular Volume 87.0 fL (80.0-94.0); Platelet Count 488 10^3/uL (130-400); Red Cell Dist. Width 16.3 % (11.5-14.5)
[2025-03-14 07:05] LABS: ALT (SGPT) < 10 U/L (0-50); AST (SGOT) 14 U/L (17-59); Albumin 3.1 g/dl (3.5-5.0); Alkaline Phosphatase 78 U/L (38-126); Blood Urea Nitrogen 40 mg/dl (9-20); Calcium 8.5 mg/dl (8.4-10.2); Carbon Dioxide 35 mmol/L (22-30); Chloride 96 mmol/L (98-107); Estimated Creatinine Clearance 92 ml/min; Glucose 290 mg/dl (70-99); Potassium 4.2 mmol/L (3.5-5.1); Sodium 136 mmol/L (135-145); Total Protein 6.5 g/dl (6.3-8.2); eGFR > 60.00
[2025-03-14 07:09] VITALS: BP 127/76
[2025-03-14] MEDS: LANTUS 0.32 UNITS SC ×2 (08:03→20:21)
[2025-03-14] MEDS: DEMADEX 40 MG PO (08:03)
[2025-03-14] MEDS: COREG 25 MG PO ×2 (08:03→20:09)
[2025-03-14] MEDS: PROTONIX 40 MG PO (08:03)
[2025-03-14] MEDS: ASPIR LOW (ENTERIC COATED) 81 MG PO (08:03)
[2025-03-14] MEDS: IMDUR (EXTENDED RELEASE) 60 MG PO (08:03)
[2025-03-14] MEDS: RANEXA EXTENDED RELEASE 1000 MG PO ×2 (08:03→20:09)
[2025-03-14] MEDS: NEURONTIN 300 MG PO ×3 (08:03→22:12)
[2025-03-14] MEDS: CYMBALTA DELAYED RELEASE 30 MG PO (08:04)
[2025-03-14 08:41] LABS: Glucose - Point of Care 336 mg/dl (70-99)
[2025-03-14] MEDS: NOVOLOG FLEXPEN 10 UNITS SC ×3 (09:28→16:34)
[2025-03-14] MEDS: NOVOLOG FLEXPEN-HIGH RESISTANCE 10 UNITS SC ×2 (09:29→12:30)
--- NOTE | 2025-03-14 10:15 | W.PN.HOSP.TC ---
Today's Communication/Plan
-
awaiting pathology results
Assessment / Plan
Assessment / Plan
A/P: Patient is a 29y M with PMH significant for DM-I, ASCVD and osteomyelitis s/p digital amputations who presents to ED from local correction complaining of L foot pain and bleeding.
#Non-Healing Left Foot Wound with Bleeding
-MRI�evidence of acute osteomyelitis in the 1st and 2nd metatarsal heads, medial side of the third metatarsal head and base of the proximal phalanx of the third toe, severe cellulitis throughout the dorsal left foot, probable mild acute
osteomyelitis in the posterior -medial calcaneus deep to soft tissue ulcer and mild cellulitis
-wound dehiscence of recent left hallux and second toe amputation (01/21/25)
- 03/08 s/p L TMA, heel debridement, and calcaneus biopsy
- wound care consulted
- OR cultures: MDR-Enterobacter, MSSA, proteus, enterococcus
- Awaiting OR heel biopsy to determine length of abx
-BCx NGTD
-cefepime - switched to Meropenem due to rash.
-stopped plavix
#Sepsis
#Positive blood cultures
#Osteomyelitis
- abx as above
- wound dehiscence of recent left hallux and second toe amputation (01/21/25)
- 03/08 s/p L TMA, heel debridement, and calcaneus biopsy
- Await OR heel biopsy
- Cefepime switched to Meropenem due to pruritic rash
# Diphtheroid bacteremia x 2 drawn at the same time
# Gram positive bacilli 1 of 4 bottles
- Both skin contaminants
- Repeat blood cx's neg
Acute Blood Loss Anemia secondary to the above
Chronic Anemia
Hgb 6, s/p 2 unit PRBC in ED; Repeat unit 03/10 - total 3 units
- discontinued plavix
-stop Plavix (PCI over one year ago)
monitor h/h
ASCVD
- Stable. Continue ASA as noted above. Discontinue Plavix.
DM
- BG uncontrolled. Lantus 32 units BID, lispro 10 units TID-meals, SSI high
- A1C = 8.1% last admission.
CKD III
- SCr improving from recent admission / AMBER. Pt reports his b/l Cr is 1.1
1.5 on discharge last admission but has not resolved.
- Hold / discontinue Bactrim.
- Avoid nephrotoxic agents.
- Follow for changes in SCr.
BLE edema
resume torsemide but monitor Cr closely
CIDP
- Stable. Continue current med regimen.
- Previously received PLEX in [place] - need OP follow-up to arrange similar treatments locally.
DVT Prophylaxis: Unable to tolerate SCDs. Holding pharmacologic prophylaxis due to bleeding.
Code Status: Full
Anticipated Discharge: 24 - 48 hours
Subjective/Interval History
-
Date of Service: March 14, 2025
mild rash worsening over past 24 hours
Objective Data
-
Labs:
Laboratory Results
03/14/25
06:28
WBC 12.1 H
Hgb 7.7 L
Hct 23.5 L
Plt Count 488 H
Sodium 136
Potassium 4.2
Chloride 96 L
Carbon Dioxide 35 H
BUN 40 H
Creatinine 1.4 H
Glucose 290 H
Calcium 8.5
Total Bilirubin 0.4
AST 14 L
ALT < 10
Alkaline Phosphatase 78
Vital Signs:
Vital Signs
Temp Pulse Resp BP Pulse Ox
98.3 F 84 18 127/76 96
03/14/25 07:09 03/14/25 07:09 03/14/25 07:09 03/14/25 08:03 03/14/25 07:09
I&O
0803/14/25 03/15/25
06:59 06:59 06:59
Intake Total 2420 / 2420 600 / 600
Output Total 4950 / 4950 1700 / 1700
Balance -2530 / -2530 -1100 / -1100
Review of Systems
-
History Source: Patient
All other systems: Reviewed and negative
Physical Exam
-
General: No Apparent Distress and Obese
HEENT: Moist Mucous Membranes, Anicteric and PERRLA
Respiratory: Clear to Auscultation; Negative Wheezes, Rales or Rhonchi
Cardiac: Regular Rhythm and S1/S2; Negative Murmur, Rub or Gallop
GI: Soft, Nontender, Nondistended and Normal Bowel Sounds
Musculoskeletal: Edema, Left Lower Extrem and Other (R BKA; left hallux and second toe amputation (01/21/25); left foot wrapped in andriy)
Skin: Warm, Dry and Rash (small circular papular rash throughout arms and legs)
Neuro: Awake and AO x 3
Hematologic / Lymphatic: No Lymphadenopathy
Psych: Calm
Data Reviewed
-
Diagnostic Radiology: Report Reviewed by me
Labs: Labs Reviewed by me
[2025-03-14 12:19] LABS: Glucose - Point of Care 321 mg/dl (70-99)
[2025-03-14 15:19] VITALS: BP 141/83
[2025-03-14 16:28] LABS: Glucose - Point of Care 134 mg/dl (70-99)
[2025-03-14] MEDS: NOVOLOG FLEXPEN-HIGH RESISTANCE SC (16:33)
[2025-03-14 20:23] LABS: Glucose - Point of Care 91 mg/dl (70-99)
[2025-03-14] MEDS: LIPITOR 80 MG PO (22:12)
[2025-03-14] MEDS: REMERON 15 MG PO (22:12)
[2025-03-14 23:08] VITALS: BP 126/67
[2025-03-15] MEDS: STERILE WATER FOR INJECTION 10 ML IV (05:43)
[2025-03-15] MEDS: MERREM 500 MG IV (05:43)
[2025-03-15 06:45] LABS: Hematocrit 24.0 % (39.0-52.0); Hemoglobin 7.7 g/dL (13.0-18.0); Mean Corp Hgb Conc. 32.1 g/dL (33.0-37.0); Mean Corpuscular Volume 87.9 fL (80.0-94.0); Platelet Count 527 10^3/uL (130-400); Red Cell Dist. Width 15.9 % (11.5-14.5)
[2025-03-15 07:09] LABS: Blood Urea Nitrogen 39 mg/dl (9-20); Calcium 8.5 mg/dl (8.4-10.2); Carbon Dioxide 34 mmol/L (22-30); Chloride 97 mmol/L (98-107); Estimated Creatinine Clearance 86 ml/min; Glucose 240 mg/dl (70-99); Potassium 4.3 mmol/L (3.5-5.1); Sodium 137 mmol/L (135-145); eGFR > 60.00
[2025-03-15 07:10] VITALS: BP 159/90
[2025-03-15 07:27] LABS: Glucose - Point of Care 286 mg/dl (70-99)
[2025-03-15] MEDS: CYMBALTA DELAYED RELEASE 30 MG PO (08:30)
[2025-03-15] MEDS: NEURONTIN 300 MG PO ×3 (08:30→22:22)
[2025-03-15] MEDS: IMDUR (EXTENDED RELEASE) 60 MG PO (08:30)
[2025-03-15] MEDS: RANEXA EXTENDED RELEASE 1000 MG PO ×2 (08:30→21:07)
[2025-03-15] MEDS: COREG 25 MG PO ×2 (08:30→21:07)
[2025-03-15] MEDS: PROTONIX 40 MG PO (08:30)
[2025-03-15] MEDS: DEMADEX 40 MG PO (08:31)
[2025-03-15] MEDS: ASPIR LOW (ENTERIC COATED) 81 MG PO (08:31)
[2025-03-15] MEDS: NOVOLOG FLEXPEN 10 UNITS SC ×3 (08:32→16:50)
[2025-03-15] MEDS: LANTUS 0.32 UNITS SC ×2 (08:32→21:12)
[2025-03-15] MEDS: NOVOLOG FLEXPEN-HIGH RESISTANCE 7 UNITS SC (08:33)
[2025-03-15] MEDS: DILAUDID 0.25 MG IV ×4 (08:36→21:11)
[2025-03-15] MEDS: NORCO 7.5/325 1 TABLET PO (10:09)
--- NOTE | 2025-03-15 10:18 | W.PN.ID1 ---
Date of Service
Date of Service: March 15, 2025
Today's Communication
Replace meropenem with dapto and Avycaz.
Assessment / Plan
# Acute Osteomyelitis of left first, second, third met heads with wound dehiscence of recent left hallux and second toe amputation (01/21/25)
# Possible underlying osteo of chronic left heel wound
# Fever resolved
# Pruritic rash persists despite off Vancomycin; cefepime changed to meropenem -> rash worse.
- 03/08 s/p L TMA, heel debridement, and calcaneus biopsy
- OR cx: MDR-Enterobacter, MSSA, proteus, enterococcus
- Awaiting OR heel biopsy to determine length of abx
- Pruritic rash worse on meropenem - >dc
- Start Avicaz 2.5 g IV q8 (pt tolerated last hospitalization)
and Daptomycin 500mg IV q24. Follow CK.
Hold atorvastatin while on Daptomycin.
# Diphtheroid bacteremia x 2 drawn at the same time
# Gram positive bacilli 1 of 4 bottles
- Both skin contaminants
- Repeat blood cx's neg
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
Diabetes mellitus
CAD status post PCI
CHF
hx CKD3
Hypertension
Guillain-Potts� syndrome/CIDP, plasma exchange q 2 months
PAD status post right BKA
Left hallux and second toe osteomyelitis status post amputation and debridement of left heel ulcer January 21, 2025
Incarcerated
Chief Complaint
-: Other (osteo)
Subjective / Review of Systems
c/o pruritic rash worse, now on legs and 'eyes'
Vital Signs / Physical Exam
Vital Signs
Vital Signs
Temp Pulse Resp BP Pulse Ox
98.2 F 89 18 159/90 95
03/15/25 07:10 03/15/25 08:30 03/15/25 07:10 03/15/25 08:30 03/15/25 08:50
Physical Exam
Constitutional: No Acute Distress
Cardiovascular: Regular Rate and S1/S2
Pulmonary: Clear
Gastrointestinal: Soft, Non Tender and Non Distended
Skin: Rash (erythematous round macules/patches on thighs, lower back, BUE, and now BLE lower extremities)
Wound: Other (Left foot dressing dry)
Neurological: AO x 3
Objective Data
Lab Data
Lab Results
03/15/25 05:59
03/15/25 05:59
Estimated Creat Clear 86 ml/min 03/15/25 05:59
Lactic Acid 1.3 mmol/L (0.7-2.0) 03/05/25 05:01
Total Bilirubin 0.4 mg/dl (0.2-1.3) 03/14/25 06:28
AST 14 U/L (17-59) L 03/14/25 06:28
ALT < 10 U/L (0-50) 03/14/25 06:28
Alkaline Phosphatase 78 U/L (38-126) 03/14/25 06:28
Most recent labs reviewed.
Micro Results:
03/08/25 18:14 Wound Culture - Final
Foot - Left Proteus mirabilis
Enterobacter cloacae
Enterococcus faecalis
S aureus-Methicillin Sensitive
Gram Stain - Final
03/08/25 18:14 Anaerobic Culture - Final
Foot - Left NO ANAEROBES ISOLATED
03/07/25 14:26 Blood Culture - Final
Blood/Venous No Growth - Final Report
03/06/25 13:54 Blood Culture - Final
Blood/Venous No Growth - Final Report
03/06/25 13:08 Blood Culture - Final
Blood/Venous No Growth - Final Report
03/05/25 01:09 Blood Culture - Final
Blood/Venous Diptheroids
Gram Stain - Final
03/05/25 07:07 Wound Culture - Final
Foot - Left Proteus mirabilis
Enterobacter cloacae
Enterococcus faecalis
S aureus-Methicillin Sensitive
Gram Stain - Final
03/05/25 01:09 Blood Culture - Final
Blood/Venous Diptheroids
Gram Stain - Final
03/05/25 16:28 Urine Culture - Final
Urine NO GROWTH
03/05/25 09:02 MRSA Screen - Final
Nose No Methicillin Resistant Staphylococcus aureus isolated.
03/07/25 MRI LLE: ACUTE OSTEOMYELITIS in the 1st and 2nd METATARSAL HEADS (and in the sesamoid bones plantar to the 1st metatarsal head) which extends 1.7 cm deep to the distal articular surfaces.
2. Mild acute osteomyelitis in the medial side of the 3rd metatarsal head and base of the proximal phalanx of the 3rd toe.
3. Large soft tissue wound distal to the 1st and 2nd metatarsal heads at the site of previous left great toe and 2nd toe amputation.
4. SEVERE CELLULITIS throughout the dorsal left foot.
5. Probable mild acute osteomyelitis in the posteromedial calcaneus deep to a soft tissue ulcer and mild cellulitis.
03/05/25 CXR: No radiographic evidence for pneumonia.
--- NOTE | 2025-03-15 12:08 | W.PN.HOSP.TC ---
Today's Communication/Plan
-
Follow pathology
Continue antibiotics
Monitor renal function
Bladder scan
Hold Demadex
Assessment / Plan
Assessment / Plan
Impression
Patient is a 29y M with PMH significant for DM-I, ASCVD and osteomyelitis s/p digital amputations who presents to ED from local halfway complaining of L foot pain and bleeding.
Acute osteomyelitis of the left first, second, third metatarsal heads with wound dehiscence over recent left hallux and second toe amputation 01/21/2025.
Left heel purulent cellulitis secondary to decubitus
Diphtheroid bacteremia likely contaminant
Sepsis ruled out
Pruritic rash suspect drug reaction
Acute blood loss anemia
Conditions prior to admission
CAD with prior PCI.
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
CHF preserved EF
IDDM
AMBER with CKD 3A
Essential hypertension
History of GBS/CIDP requiring plasma exchange
.
Plan
Acute osteomyelitis of the left first, second, third metatarsal heads with wound dehiscence over recent left hallux and second toe amputation 01/21/2025.
-MRI�evidence of acute osteomyelitis in the 1st and 2nd metatarsal heads, medial side of the third metatarsal head and base of the proximal phalanx of the third toe, severe cellulitis throughout the dorsal left foot, probable mild acute
osteomyelitis in the posterior -medial calcaneus deep to soft tissue ulcer and mild cellulitis
-wound dehiscence of recent left hallux and second toe amputation (01/21/25)
- 03/08 s/p L TMA, heel debridement, and calcaneus biopsy
- OR cultures: MDR-Enterobacter, MSSA, proteus, enterococcus
-Diphtheroid bacteremia likely contaminant. Sepsis ruled out.
- Awaiting OR heel biopsy to determine length of abx
- Antibiotic regimen being adjusted according to sensitivity as well as drug reaction. Transition to daptomycin and ceftazidime.
- Continue wound care
Acute Blood Loss Anemia secondary to the above
Chronic Anemia
Hgb 6, s/p 2 unit PRBC in ED; Repeat unit 03/10 - total 3 units
-Plavix discontinued (PCI over one year ago)
Follow H&H
AMBER on CKD stage III
Creatinine rising at 1.5.
Prior history of retention. Bladder scan
Hold Demadex
Follow BMP
ASCVD
- Stable. Continue ASA as noted above. Discontinue Plavix.
CHF preserved EF
Monitor volume status closely.
Hold Demadex given rising creatinine
DM
- BG uncontrolled. Lantus 32 units BID, lispro 10 units TID-meals, SSI high
- A1C = 8.1% last admission.
CIDP
- Stable. Continue current med regimen.
- Previously received PLEX in [place] - need OP follow-up to arrange similar treatments locally.
DVT Prophylaxis: Unable to tolerate SCDs. Holding pharmacologic prophylaxis due to bleeding.
Code Status: Full
Anticipated Discharge: > 48 hours
Subjective/Interval History
-
Date of Service: March 15, 2025
Objective Data
-
Labs:
Laboratory Results
03/15/25
05:59
WBC 12.0 H
Hgb 7.7 L
Hct 24.0 L
Plt Count 527 H
Sodium 137
Potassium 4.3
Chloride 97 L
Carbon Dioxide 34 H
BUN 39 H
Creatinine 1.5 H
Glucose 240 H
Calcium 8.5
Vital Signs:
Vital Signs
Temp Pulse Resp BP Pulse Ox
98.2 F 89 18 159/90 95
03/15/25 07:10 03/15/25 08:30 03/15/25 07:10 03/15/25 08:30 03/15/25 10:39
I&O
03/14/25 03/15/25 03/16/25
06:59 06:59 06:59
Intake Total 600 / 600 2700 / 2700
Output Total 1700 / 1700 2650 / 2650 1974
Balance -1100 / -1100 50 / 50 -1974
Physical Exam
-
General: Well Developed and No Apparent Distress
HEENT: Normocephalic, Atraumatic and Moist Mucous Membranes
Respiratory: Clear to Auscultation
Cardiac: Regular Rhythm and S1/S2; Negative Murmur, Rub or Gallop
GI: Soft, Nontender, Nondistended and Normal Bowel Sounds; Negative Organomegaly
Rectal: Deferred by Provider
Musculoskeletal: No Clubbing, No Cyanosis and No Edema
Skin: Negative Rash
Neuro: Nonfocal/Grossly Intact
[2025-03-15] MEDS: CUBICIN 10 MG IV (12:26)
[2025-03-15 12:29] LABS: Glucose - Point of Care 221 mg/dl (70-99)
[2025-03-15] MEDS: NOVOLOG FLEXPEN-HIGH RESISTANCE 4 UNITS SC (12:29)
--- NOTE | 2025-03-15 13:53 | CM ---
CM following re: discharge planning.
Reviewed pt's chart.
Pt is admitted from [facility] and a plan is to discharge pt back to [facility] when medically stable.
[facility] Report: [phone]
[facility]
Plan: Discharge back to [facility] when medically stable
[2025-03-15 15:07] VITALS: BP 127/73
[2025-03-15 15:47] VITALS: BP 107/71; BP 120/72; PULSE 86; O2SAT 99
[2025-03-15 16:46] LABS: Glucose - Point of Care 176 mg/dl (70-99)
[2025-03-15] MEDS: NOVOLOG FLEXPEN-HIGH RESISTANCE 2 UNITS SC (16:50)
[2025-03-15 21:11] LABS: Glucose - Point of Care 160 mg/dl (70-99)
[2025-03-15] MEDS: REMERON 15 MG PO (22:22)
[2025-03-15 23:28] VITALS: BP 126/71
[2025-03-16] MEDS: DILAUDID 0.25 MG IV ×5 (03:56→21:44)
[2025-03-16 06:13] VITALS: BMI 37.1
[2025-03-16 07:10] VITALS: BP 115/68
[2025-03-16 07:30] LABS: Glucose - Point of Care 119 mg/dl (70-99)
[2025-03-16 07:52] LABS: Hematocrit 23.0 % (39.0-52.0); Hemoglobin 7.4 g/dL (13.0-18.0); Mean Corp Hgb Conc. 32.2 g/dL (33.0-37.0); Mean Corpuscular Volume 88.5 fL (80.0-94.0); Nucleated Red Blood Cells % 0 % (-); Platelet Count 526 10^3/uL (130-400); Red Cell Dist. Width 16.1 % (11.5-14.5)
[2025-03-16 08:24] LABS: Blood Urea Nitrogen 40 mg/dl (9-20); Calcium 8.3 mg/dl (8.4-10.2); Carbon Dioxide 34 mmol/L (22-30); Chloride 98 mmol/L (98-107); Estimated Creatinine Clearance 80 ml/min; Glucose 107 mg/dl (70-99); Potassium 4.3 mmol/L (3.5-5.1); Sodium 138 mmol/L (135-145); eGFR 59.44
[2025-03-16] MEDS: NOVOLOG FLEXPEN-HIGH RESISTANCE SC ×3 (09:15→16:56)
[2025-03-16] MEDS: ASPIR LOW (ENTERIC COATED) 81 MG PO (09:16)
[2025-03-16] MEDS: RANEXA EXTENDED RELEASE 1000 MG PO ×2 (09:16→20:41)
[2025-03-16] MEDS: NEURONTIN 300 MG PO ×3 (09:16→21:42)
[2025-03-16] MEDS: IMDUR (EXTENDED RELEASE) 60 MG PO (09:16)
[2025-03-16] MEDS: CYMBALTA DELAYED RELEASE 30 MG PO (09:16)
[2025-03-16] MEDS: COREG 25 MG PO ×2 (09:17→20:47)
[2025-03-16] MEDS: LANTUS 0.32 UNITS SC (09:17)
[2025-03-16] MEDS: PROTONIX 40 MG PO (09:18)
[2025-03-16] MEDS: NOVOLOG FLEXPEN 10 UNITS SC ×3 (09:18→16:56)
--- NOTE | 2025-03-16 10:34 | W.CON.NEPH ---
Consultation
-
Date/Time Consultation Requested: 03/16/2025 9:30 AM
Date/Time Consultation Performed: 03/16/2025 1030 AM
Requesting Provider: Dr. Young
Performing Provider: Dr. Machuca
Reason for Consultation: Acute kidney injury
Medical History
-
Chief Complaint: Acute kidney injury
History of Present Illness:
This is a 29-year-old incarcerated gentleman who has type 1 diabetes on chronic insulin therapy which is well-controlled by his report. He also has CIDP which he says is treated with plasma exchange every 2 months but he has not had one recently.
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 He presented with osteomyelitis of the left foot status post amputation and debridement of left heel ulcer on January 21, 2025. He was subsequently discharged back to [facility] but returned
because of bleeding from the left heel wound and anemia. He was discharged on February 24 with a creatinine of 1.9. The creatinine eventually nadired down to 1.4 and then he was readmitted to the hospital on 03/05/2025 with a creatinine of 1.6. Now
we are reconsulted for creatinine of 1.6. Torsemide held
Past Medical History
Diabetes mellitus
CAD status post PCI
CHF
hx CKD3
Hypertension
Guillain-Potts� syndrome/CIDP, plasma exchange q 2 months
PAD status post right BKA
Left hallux and second toe osteomyelitis status post amputation and debridement of left heel ulcer January 21, 2025
Social History
Tobacco: Non-Smoker
Alcohol: None
Living: Jail
Family History
Factor V Leiden, diabetes mellitus type 2, coronary artery disease
Grandmother ESRD in her 80s
Allergies / Home Medications
Allergy/AdvReac Type Severity Reaction Status Date / Time
ibuprofen Allergy Unknown Verified 03/04/25 22:04
oxycodone Allergy Unknown Verified 03/04/25 22:04
Penicillins Allergy Unknown/tolerated Verified 03/04/25 22:04
amoxicillin
silver Allergy Hives Verified 03/04/25 22:04
silver nitrate Allergy Hives Verified 03/04/25 22:04
sweet potato Allergy Unknown Verified 03/04/25 22:04
tuna oil Allergy Unknown Verified 03/04/25 22:04
turkey Allergy Unknown Verified 03/04/25 22:04
�Medication �Instructions �Recorded �Confirmed �Type
aspirin 81 mg tablet,delayed 81 mg PO DAILY Blood Clot 02/02/25 03/05/25 History
release Prevention/Tx
atorvastatin 80 mg tablet 80 mg PO HS High Cholesterol 02/02/25 03/05/25 History
carvedilol 25 mg tablet 25 mg PO BID Heart Failure 02/02/25 03/05/25 History
insulin glargine 100 unit/mL (3 30 unit SC BID Diabetes 02/02/25 03/05/25 History
mL) subcutaneous pen (Lantus
Solostar U-100 Insulin)
isosorbide mononitrate 60 mg 60 mg PO DAILY Heart 02/02/25 03/05/25 History
tablet,extended release 24 hr Disease/Condition
pantoprazole 40 mg tablet,delayed 40 mg PO DAILY Gastrointestinal 02/02/25 03/05/25 History
release (Protonix) Issue
ranolazine 1,000 mg 1,000 mg PO BID Heart 02/02/25 03/05/25 History
tablet,extended release,12 hr Disease/Condition
duloxetine 30 mg capsule,delayed 30 mg PO DAILY Mental 02/07/25 03/05/25 History
release Health/Anxiety
gabapentin 300 mg capsule 300 mg PO TID NEUROPATHIC PAIN 02/07/25 03/05/25 History
insulin regular human 100 unit/mL 1 sliding scale dose SC AC Diabetes 02/07/25 03/05/25 History
injection solution (Humulin R
Regular U-100 Insulin)
docusate sodium 100 mg capsule 100 mg PO BID #30 caps 02/21/25 03/05/25 Rx
clopidogrel 75 mg tablet 75 mg PO DAILY Blood Clot 03/05/25 03/05/25 History
Prevention/Tx
doxycycline monohydrate 100 mg 100 mg PO BID Infection 03/05/25 03/05/25 History
capsule
mirtazapine 15 mg tablet 15 mg PO HS Sleep 03/05/25 03/05/25 History
sulfamethoxazole 800 1 tab PO BID Infection 03/05/25 03/05/25 History
mg-trimethoprim 160 mg tablet
(Bactrim DS)
torsemide 20 mg tablet 40 mg PO DAILY Fluid 03/05/25 03/05/25 History
Retention/Swelling
Review of Systems
-
History Source: Patient
All other systems: Negative unless noted
Respiratory: No Symptoms
Cardiac: No Symptoms
: Other (Requires chronic straight cath)
Musculoskeletal: Edema and Other (Right AKA)
Skin: Other (Left lower extremity leg wound)
Physical Exam
Vital Signs
Vital Signs
Temp Pulse Resp BP Pulse Ox
98.4 F 79 16 115/68 95
03/16/25 07:10 03/16/25 07:10 03/16/25 07:10 03/16/25 09:17 03/16/25 07:10
Lab Results
03/16/25 06:46
03/16/25 06:46
WBC 11.6 10^3/uL (4.8-10.8) H 03/16/25 06:46
RBC 2.60 10^6/uL (4.70-6.10) L 03/16/25 06:46
Hgb 7.4 g/dL (13.0-18.0) L 03/16/25 06:46
Hct 23.0 % (39.0-52.0) L 03/16/25 06:46
Plt Count 526 10^3/uL (130-400) H 03/16/25 06:46
Sodium 138 mmol/L (135-145) 03/16/25 06:46
Potassium 4.3 mmol/L (3.5-5.1) 03/16/25 06:46
Chloride 98 mmol/L (98-107) 03/16/25 06:46
Carbon Dioxide 34 mmol/L (22-30) H 03/16/25 06:46
BUN 40 mg/dl (9-20) H 03/16/25 06:46
Creatinine 1.6 mg/dL (0.7-1.3) H 03/16/25 06:46
eGFR 59.44 03/16/25 06:46
Glucose 107 mg/dl (70-99) H 03/16/25 06:46
Calcium 8.3 mg/dl (8.4-10.2) L 03/16/25 06:46
Albumin 3.1 g/dl (3.5-5.0) L 03/14/25 06:28
Physical Exam
General: AOx3, Nontoxic , NAD, obese
HEENT: PERRL, EOMI, Anicteric, Conjunctivae Clear, Ear/Nose Intact, Hearing Normal, Oropharynx Clear/Moist, Dentition Intact, Facial Symmetry, Neck Supple, Neck: Trachea Midline, No JVD and No Thyromegaly, no Bruits
Respiratory: Clear to auscultation bilaterally with normal lung exersion
Cardiac: S1/S2 and Regular Rate/Rhythm
Breast: Deferred by me
Abdomen: Soft, Nontender, Nondistended, Normal Bowel Sounds and No Hepatosplenomegaly
Rectal: Deferred by Provider
Genito-urinary: No Costovertebral Tenderness
Extremities: No Clubbing, No Cyanosis and +2 pitting edema of left lower extremity, left foot wound wrapped, right AKA
Skin: No Rash or open lesions
Neuro: Nonfocal/Grossly Intact, CN II-XII (Intact) and Strength (Musculoskeletal exam 5 out of 5 both upper and lower extremities)
Hematologic/Lymphatic: No Cervical Lymphadenopathy, No Submandibular Lymphadenopathy and No Supraclavicular Lymphadenopathy
Psych: Mood/afflect pleasant, Insight/judgement good and Appropriate
Vascular: plus 1pedal and radial pulses
Data Reviewed
-
MRI: Report Reviewed by me (MRI report reviewed from 03/07/2025 of the left foot notable for acute osteomyelitis of first second third metatarsal head severe cellulitis)
Labs: Labs Reviewed by me (BMP CBC urinalysis)
Old Records: Reviewed (Reviewed previous nephrology consultation from February 2025 for acute kidney injury in the EMR)
Assessment/Plan
-
Assessment
AMBER
Left 1st, 2nd and 3rd metatarsal head osteomyelitis
Left heel wound, osteomyelitis
Diabetes mellitus type 1
Anemia, iron deficiency
Heart failure unknown EF
CIDP
GERD
Bladder outlet obstruction(does SC at home), Castillo catheter
Proteinuria
Plan
CKD likely a function of diabetic nephropathy
Creatinine is stable at 1.6
Demadex currently held
Antibiotics likely to be held discussed with infectious disease
Continue frequent straight cath as patient has chronic urinary retention, if creatinine continues to rise we may need to place Castillo cath, otherwise I would recommend straight cath 4-5 times daily
--- NOTE | 2025-03-16 10:42 | PTCARENOTE ---
pt verbalizing 9/10 pain. prn dose given. see MAR for proper documentation.
--- NOTE | 2025-03-16 11:04 | W.PN.ID1 ---
Date of Service
Date of Service: March 16, 2025
Today's Communication
DC antibiotics.
ID will sign off.
Assessment / Plan
# Acute Osteomyelitis of left first, second, third met heads with wound dehiscence of recent left hallux and second toe amputation (01/21/25)
# Possible underlying osteo of chronic left heel wound
# Fever resolved
- 03/08 s/p L TMA, heel debridement, and calcaneus biopsy
- OR cx: MDR-Enterobacter, MSSA, proteus, enterococcus
- TMA path: clean margin (surgical cure)
- Heel bone biopsy: no osteo
- DC Avicaz 2.5 g IV q8 and daptomycin.
# Pruritic rash
- Rash persisted off Vancomycin; on cefepime
- cefepime changed to meropenem -> rash worse.
- Meropenem dc'd - no progression of rash
# Diphtheroid bacteremia x 2 drawn at the same time
# Gram positive bacilli 1 of 4 bottles
- Both skin contaminants
- Repeat blood cx's neg
ID will sign off.
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
Diabetes mellitus
CAD status post PCI
CHF
hx CKD3
Hypertension
Guillain-Potts� syndrome/CIDP, plasma exchange q 2 months
PAD status post right BKA
Left hallux and second toe osteomyelitis status post amputation and debridement of left heel ulcer January 21, 2025
Incarcerated
Chief Complaint
-: Other (osteo)
Subjective / Review of Systems
rash has not progressed.
Vital Signs / Physical Exam
Vital Signs
Vital Signs
Temp Pulse Resp BP Pulse Ox
98.4 F 79 16 115/68 95
03/16/25 07:10 03/16/25 07:10 03/16/25 07:10 03/16/25 09:17 03/16/25 07:10
Physical Exam
Constitutional: No Acute Distress
Cardiovascular: Regular Rate and S1/S2
Pulmonary: Clear
Gastrointestinal: Soft, Non Tender and Non Distended
Skin: Rash (erythematous round macules/patches on thighs, lower back, BUE, and BLE lower extremities stable)
Wound: Other (Left foot dressing dry)
Neurological: AO x 3
Objective Data
Lab Data
Lab Results
03/16/25 06:46
03/16/25 06:46
Estimated Creat Clear 80 ml/min 03/16/25 06:46
Lactic Acid 1.3 mmol/L (0.7-2.0) 03/05/25 05:01
Total Bilirubin 0.4 mg/dl (0.2-1.3) 03/14/25 06:28
AST 14 U/L (17-59) L 03/14/25 06:28
ALT < 10 U/L (0-50) 03/14/25 06:28
Alkaline Phosphatase 78 U/L (38-126) 03/14/25 06:28
Most recent labs reviewed.
Micro Results:
03/08/25 18:14 Wound Culture - Final
Foot - Left Proteus mirabilis
Enterobacter cloacae
Enterococcus faecalis
S aureus-Methicillin Sensitive
Gram Stain - Final
03/08/25 18:14 Anaerobic Culture - Final
Foot - Left NO ANAEROBES ISOLATED
03/07/25 14:26 Blood Culture - Final
Blood/Venous No Growth - Final Report
03/06/25 13:54 Blood Culture - Final
Blood/Venous No Growth - Final Report
03/06/25 13:08 Blood Culture - Final
Blood/Venous No Growth - Final Report
03/05/25 01:09 Blood Culture - Final
Blood/Venous Diptheroids
Gram Stain - Final
03/05/25 07:07 Wound Culture - Final
Foot - Left Proteus mirabilis
Enterobacter cloacae
Enterococcus faecalis
S aureus-Methicillin Sensitive
Gram Stain - Final
03/05/25 01:09 Blood Culture - Final
Blood/Venous Diptheroids
Gram Stain - Final
03/05/25 16:28 Urine Culture - Final
Urine NO GROWTH
03/05/25 09:02 MRSA Screen - Final
Nose No Methicillin Resistant Staphylococcus aureus isolated.
03/07/25 MRI LLE: ACUTE OSTEOMYELITIS in the 1st and 2nd METATARSAL HEADS (and in the sesamoid bones plantar to the 1st metatarsal head) which extends 1.7 cm deep to the distal articular surfaces.
2. Mild acute osteomyelitis in the medial side of the 3rd metatarsal head and base of the proximal phalanx of the 3rd toe.
3. Large soft tissue wound distal to the 1st and 2nd metatarsal heads at the site of previous left great toe and 2nd toe amputation.
4. SEVERE CELLULITIS throughout the dorsal left foot.
5. Probable mild acute osteomyelitis in the posteromedial calcaneus deep to a soft tissue ulcer and mild cellulitis.
03/05/25 CXR: No radiographic evidence for pneumonia.
[2025-03-16 12:36] LABS: Glucose - Point of Care 102 mg/dl (70-99)
--- NOTE | 2025-03-16 13:19 | W.PN.UPDATE ---
Update Note
Progress Note Update
29M s/p L TMA primarily closed, and left heel wound debridement with calcaneus biopsy. Doing well, mild pain left foot. incision clean, no drainage, no bleeding w/ skin well reapproximated, no hematoma. heel wound w/ granular bed
-Dressings to remain C/D/I
-- redressed today, betadine paint to incision,betadine adaptic on heel wound, dsd, andriy
-- Dressing to be changed T/F
-calcaneus pathology w/o OM, forefoot pathology w/ OM
- abx per ID recs
- continue ice/ elevation/ meds for analgesia
-NWB to LLE
-PT/OT
-No further surgical plans
--- NOTE | 2025-03-16 13:26 | CM ---
CM following re: discharge planning.
Reviewed pt's chart.
Pt is admitted from [facility] and a plan is to discharge pt back to [facility] when medically stable.
[facility] Report: [phone]
[facility]
Plan: Discharge back to [facility] when medically stable
[2025-03-16 15:04] LABS: Body Fluid for Eosinophils No Eosinophils seen
[2025-03-16 15:05] VITALS: BP 113/67
--- NOTE | 2025-03-16 15:11 | W.PN.HOSP.TC ---
Today's Communication/Plan
-
Observe off antibiotics
Wound care
Monitor hemoglobin
Hold Demadex
Follow renal function
Continue straight cath
Assessment / Plan
Assessment / Plan
Impression
Patient is a 29y M with PMH significant for DM-I, ASCVD and osteomyelitis s/p digital amputations who [facility] complaining of L foot pain and bleeding.
Acute osteomyelitis of the left first, second, third metatarsal heads with wound dehiscence over recent left hallux and second toe amputation 01/21/2025.
Left heel purulent cellulitis secondary to decubitus
Diphtheroid bacteremia likely contaminant
Sepsis ruled out
Pruritic rash suspect drug reaction
Acute blood loss anemia
Conditions prior to admission
CAD with prior PCI.
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
CHF preserved EF
IDDM
AMBER with CKD 3A
Essential hypertension
History of GBS/CIDP requiring plasma exchange
.
Plan
Acute osteomyelitis of the left first, second, third metatarsal heads with wound dehiscence over recent left hallux and second toe amputation 01/21/2025.
-MRI�evidence of acute osteomyelitis in the 1st and 2nd metatarsal heads, medial side of the third metatarsal head and base of the proximal phalanx of the third toe, severe cellulitis throughout the dorsal left foot, probable mild acute
osteomyelitis in the posterior -medial calcaneus deep to soft tissue ulcer and mild cellulitis
-wound dehiscence of recent left hallux and second toe amputation (01/21/25)
- 03/08 s/p L TMA, heel debridement, and calcaneus biopsy
- OR cultures: MDR-Enterobacter, MSSA, proteus, enterococcus
-Diphtheroid bacteremia likely contaminant. Sepsis ruled out.
- Heel pathology negative for osteomyelitis
- Antibiotic discontinued on 03/16
- Continue wound care
Acute Blood Loss Anemia secondary to the above
Chronic Anemia
Hgb 6, s/p 2 unit PRBC in ED; Repeat unit 03/10 - total 3 units
-Plavix discontinued (PCI over one year ago)
Follow H&H
AMBER on CKD stage III
Creatinine rising at 1.6
Prior history of retention. Bladder scan
Hold Demadex
Follow BMP
Nephrology
ASCVD
- Stable. Continue ASA as noted above. Discontinue Plavix.
CHF preserved EF
Monitor volume status closely.
Hold Demadex given rising creatinine
DM
- BG uncontrolled. Lantus 32 units BID, lispro 10 units TID-meals, SSI high
- A1C = 8.1% last admission.
CIDP
- Stable. Continue current med regimen.
- Previously received PLEX in [place] - need OP follow-up to arrange similar treatments locally.
DVT Prophylaxis: Unable to tolerate SCDs. Holding pharmacologic prophylaxis due to bleeding.
Code Status: Full
Anticipated Discharge: 24 - 48 hours
Subjective/Interval History
-
Date of Service: March 16, 2025
Objective Data
-
Labs:
Laboratory Results
03/16/25
06:46
WBC 11.6 H
Hgb 7.4 L
Hct 23.0 L
Plt Count 526 H
Sodium 138
Potassium 4.3
Chloride 98
Carbon Dioxide 34 H
BUN 40 H
Creatinine 1.6 H
Glucose 107 H
Calcium 8.3 L
Vital Signs:
Vital Signs
Temp Pulse Resp BP Pulse Ox
98.4 F 79 16 115/68 95
03/16/25 07:10 03/16/25 07:10 03/16/25 07:10 03/16/25 09:17 03/16/25 07:10
I&O
03/15/25 03/16/25 03/17/25
06:59 06:59 06:59
Intake Total 2700 / 2700 1370 / 1370
Output Total 2650 / 2650 3075 / 3075
Balance 50 / 50 -1705 / -1705
Physical Exam
-
General: Well Developed and No Apparent Distress
HEENT: Normocephalic, Atraumatic and Moist Mucous Membranes
Respiratory: Clear to Auscultation
Cardiac: Regular Rhythm and S1/S2; Negative Murmur, Rub or Gallop
GI: Soft, Nontender, Nondistended and Normal Bowel Sounds; Negative Organomegaly
Rectal: Deferred by Provider
Musculoskeletal: No Clubbing, No Cyanosis and No Edema
Skin: Negative Rash
Neuro: Nonfocal/Grossly Intact
[2025-03-16 16:57] LABS: Glucose - Point of Care 108 mg/dl (70-99)
[2025-03-16 20:31] LABS: Glucose - Point of Care 73 mg/dl (70-99)
[2025-03-16] MEDS: LANTUS SC (20:47)
[2025-03-16] MEDS: LANTUS 0.16 UNITS SC (21:42)
[2025-03-16] MEDS: REMERON 15 MG PO (21:44)
[2025-03-16 23:22] VITALS: BP 143/78
[2025-03-17 03:21] LABS: Glucose - Point of Care 106 mg/dl (70-99)
[2025-03-17] MEDS: DILAUDID 0.25 MG IV ×5 (03:24→22:20)
[2025-03-17 05:52] VITALS: BMI 37.1
[2025-03-17 07:00] VITALS: BP 163/94
[2025-03-17 07:25] LABS: Glucose - Point of Care 152 mg/dl (70-99)
[2025-03-17] MEDS: NOVOLOG FLEXPEN-HIGH RESISTANCE SC ×2 (08:14→16:53)
[2025-03-17] MEDS: CYMBALTA DELAYED RELEASE 30 MG PO (08:53)
[2025-03-17] MEDS: IMDUR (EXTENDED RELEASE) 60 MG PO (08:53)
[2025-03-17] MEDS: RANEXA EXTENDED RELEASE 1000 MG PO ×2 (08:53→20:00)
[2025-03-17] MEDS: NEURONTIN 300 MG PO ×3 (08:53→22:19)
[2025-03-17] MEDS: PROTONIX 40 MG PO (08:54)
[2025-03-17] MEDS: NOVOLOG FLEXPEN 10 UNITS SC ×2 (08:54→12:39)
[2025-03-17] MEDS: ASPIR LOW (ENTERIC COATED) 81 MG PO (08:54)
[2025-03-17] MEDS: COREG 25 MG PO ×2 (08:54→20:00)
[2025-03-17] MEDS: LANTUS 0.32 UNITS SC (08:56)
[2025-03-17 08:57] LABS: Hematocrit 25.7 % (39.0-52.0); Hemoglobin 8.1 g/dL (13.0-18.0); Mean Corp Hgb Conc. 31.5 g/dL (33.0-37.0); Mean Corpuscular Volume 88.9 fL (80.0-94.0); Nucleated Red Blood Cells % 0 % (-); Platelet Count 585 10^3/uL (130-400); Red Cell Dist. Width 15.9 % (11.5-14.5)
[2025-03-17 09:09] LABS: Blood Urea Nitrogen 38 mg/dl (9-20); Calcium 8.9 mg/dl (8.4-10.2); Carbon Dioxide 32 mmol/L (22-30); Chloride 101 mmol/L (98-107); Estimated Creatinine Clearance 85 ml/min; Glucose 136 mg/dl (70-99); Potassium 4.7 mmol/L (3.5-5.1); Sodium 139 mmol/L (135-145); eGFR > 60.00
--- NOTE | 2025-03-17 10:37 | PTCARENOTE ---
Pt called this RN to room saying he 'accidentally hit his foot and it started bleeding.' Wound care changed per order, new dressing CDI. MD and podiatry made aware.
--- NOTE | 2025-03-17 11:44 | W.PN.NEPH.PH ---
Today's Communication / Plan
-
Restart Demadex 20 mg daily
Sign off
Assessment/Plan
-
Assessment
AMBER
Left 1st, 2nd and 3rd metatarsal head osteomyelitis
Left heel wound, osteomyelitis
Diabetes mellitus type 1
Anemia, iron deficiency
Heart failure unknown EF
CIDP
GERD
Bladder outlet obstruction(does SC at home), Castillo catheter
Proteinuria
Plan
CKD likely a function of diabetic nephropathy
Creatinine is stable at 1.5
Demadex currently held, will restart at half dosage at 20 mg daily
We will sign off
Antibiotics likely to be held discussed with infectious disease
Continue frequent straight cath as patient has chronic urinary retention, if creatinine continues to rise we may need to place Castillo cath, otherwise I would recommend straight cath 4-5 times daily
-
-
Date of Service: March 17, 2025
CC / HPI / ROS
-
Chief Complaint:
Chronic kidney disease
History of Present Illness:
Creatinine down to 1.5
Hemodynamically stable
Review of Systems:
non oliguric
Labs
-
Labs:
WBC 10.7 10^3/uL (4.8-10.8) 03/17/25 07:47
RBC 2.89 10^6/uL (4.70-6.10) L 03/17/25 07:47
Hgb 8.1 g/dL (13.0-18.0) L 03/17/25 07:47
Hct 25.7 % (39.0-52.0) L 03/17/25 07:47
Plt Count 585 10^3/uL (130-400) H 03/17/25 07:47
Sodium 139 mmol/L (135-145) 03/17/25 07:47
Potassium 4.7 mmol/L (3.5-5.1) 03/17/25 07:47
Chloride 101 mmol/L (98-107) 03/17/25 07:47
Carbon Dioxide 32 mmol/L (22-30) H 03/17/25 07:47
BUN 38 mg/dl (9-20) H 03/17/25 07:47
Creatinine 1.5 mg/dL (0.7-1.3) H 03/17/25 07:47
eGFR > 60.00 03/17/25 07:47
Glucose 136 mg/dl (70-99) H 03/17/25 07:47
Calcium 8.9 mg/dl (8.4-10.2) 03/17/25 07:47
Albumin 3.1 g/dl (3.5-5.0) L 03/14/25 06:28
Physical Exam
-
Vital Signs:
Vital Signs
Temp Pulse Resp BP Pulse Ox
97.8 F 87 20 163/94 96
03/17/25 07:00 03/17/25 08:54 03/17/25 07:00 03/17/25 08:54 03/17/25 08:18
Cardiovascular:: Regular rate and rhythm
--- NOTE | 2025-03-17 11:45 | CM ---
Following up on patient.
RN reported that patient is still not ready. Patient's Abx was discontinued, now watching kidney function, and now has new bleed on his left foot due to him kicking the bed.
PLAN: Patient will return to [facility] when stable.
[2025-03-17 11:59] LABS: Glucose - Point of Care 158 mg/dl (70-99)
[2025-03-17] MEDS: NOVOLOG FLEXPEN-HIGH RESISTANCE 2 UNITS SC (12:40)
[2025-03-17] MEDS: DEMADEX 20 MG PO (12:42)
--- NOTE | 2025-03-17 13:42 | W.PN.HOSP.TC ---
Today's Communication/Plan
-
Off antibiotics
Demadex
Follow renal function
Wound care
Assessment / Plan
Assessment / Plan
Impression
Patient is a 29y M with PMH significant for DM-I, ASCVD and osteomyelitis s/p digital amputations who [facility] complaining of L foot pain and bleeding.
Acute osteomyelitis of the left first, second, third metatarsal heads with wound dehiscence over recent left hallux and second toe amputation 01/21/2025.
Left heel purulent cellulitis secondary to decubitus
Diphtheroid bacteremia likely contaminant
Sepsis ruled out
Pruritic rash suspect drug reaction
Acute blood loss anemia
Conditions prior to admission
CAD with prior PCI.
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
CHF preserved EF
IDDM
AMBER with CKD 3A
Essential hypertension
History of GBS/CIDP requiring plasma exchange
.
Plan
Acute osteomyelitis of the left first, second, third metatarsal heads with wound dehiscence over recent left hallux and second toe amputation 01/21/2025.
-MRI�evidence of acute osteomyelitis in the 1st and 2nd metatarsal heads, medial side of the third metatarsal head and base of the proximal phalanx of the third toe, severe cellulitis throughout the dorsal left foot, probable mild acute
osteomyelitis in the posterior -medial calcaneus deep to soft tissue ulcer and mild cellulitis
-wound dehiscence of recent left hallux and second toe amputation (01/21/25)
- 03/08 s/p L TMA, heel debridement, and calcaneus biopsy
- OR cultures: MDR-Enterobacter, MSSA, proteus, enterococcus
-Diphtheroid bacteremia likely contaminant. Sepsis ruled out.
- Heel pathology negative for osteomyelitis
- Antibiotic discontinued on 03/16
- Continue wound care
Acute Blood Loss Anemia secondary to the above
Chronic Anemia
Hgb 6, s/p 2 unit PRBC in ED; Repeat unit 8/28 - total 3 units
-Plavix discontinued (PCI over one year ago)
Follow H&H
AMBER on CKD stage III
Creatinine rising plateaued at 1.5 and likely close to baseline
Continue self-catheterization
Resume Demadex at lower dose 20 mg
Follow BMP
Nephrology input appreciated
ASCVD
- Stable. Continue ASA as noted above. Discontinue Plavix.
CHF preserved EF
Monitor volume status closely.
Hold Demadex given rising creatinine
DM
- BG uncontrolled. Lantus 32 units BID, lispro 10 units TID-meals, SSI high
- A1C = 8.1% last admission.
CIDP
- Stable. Continue current med regimen.
- Previously received PLEX in [place] - need OP follow-up to arrange similar treatments locally.
DVT Prophylaxis: Unable to tolerate SCDs. Holding pharmacologic prophylaxis due to bleeding.
Code Status: Full
Anticipated Discharge: 24 - 48 hours
Subjective/Interval History
-
Date of Service: March 17, 2025
Objective Data
-
Labs:
Laboratory Results
03/17/25
07:47
WBC 10.7
Hgb 8.1 L
Hct 25.7 L
Plt Count 585 H
Sodium 139
Potassium 4.7
Chloride 101
Carbon Dioxide 32 H
BUN 38 H
Creatinine 1.5 H
Glucose 136 H
Calcium 8.9
Vital Signs:
Vital Signs
Temp Pulse Resp BP Pulse Ox
97.8 F 92 20 143/94 96
03/17/25 07:00 03/17/25 12:42 03/17/25 07:00 03/17/25 12:42 03/17/25 13:23
I&O
03/16/25 03/17/25 03/18/25
06:59 06:59 06:59
Intake Total 1370 / 1370 1422 / 1422
Output Total 3075 / 3075 2850 / 2850 875 / 875
Balance -1705 / -1705 -1428 / -1428 -87 / -875
Physical Exam
-
General: Well Developed and No Apparent Distress
HEENT: Normocephalic, Atraumatic and Moist Mucous Membranes
Respiratory: Clear to Auscultation
Cardiac: Regular Rhythm and S1/S2; Negative Murmur, Rub or Gallop
GI: Soft, Nontender, Nondistended and Normal Bowel Sounds; Negative Organomegaly
Rectal: Deferred by Provider
Musculoskeletal: No Clubbing, No Cyanosis and No Edema
Skin: Negative Rash
Neuro: Nonfocal/Grossly Intact
[2025-03-17 14:12] VITALS: BP 132/76; BP 136/84; PULSE 93; O2SAT 97
[2025-03-17 15:00] VITALS: BP 128/77
[2025-03-17 16:52] LABS: Glucose - Point of Care 62 mg/dl (70-99)
[2025-03-17] MEDS: NOVOLOG FLEXPEN SC (16:53)
[2025-03-17 17:09] LABS: Glucose - Point of Care 75 mg/dl (70-99)
[2025-03-17 19:22] VITALS: BP 129/81
[2025-03-17 19:39] LABS: Glucose - Point of Care 155 mg/dl (70-99)
[2025-03-17 21:18] LABS: Glucose - Point of Care 148 mg/dl (70-99)
[2025-03-17] MEDS: LANTUS SC (21:29)
[2025-03-17] MEDS: LIPITOR PO (21:30)
[2025-03-17] MEDS: LANTUS 0.25 UNITS SC (22:18)
[2025-03-17] MEDS: REMERON 15 MG PO (22:19)
[2025-03-17 23:09] VITALS: BP 135/83
[2025-03-17 23:14] VITALS: BP 135/83
[2025-03-18] MEDS: DILAUDID 0.25 MG IV ×2 (02:34→08:31)
[2025-03-18 03:20] LABS: Glucose - Point of Care 153 mg/dl (70-99)
[2025-03-18 06:00] VITALS: BMI 36.8
[2025-03-18 07:00] VITALS: BP 134/80
[2025-03-18 07:21] LABS: Glucose - Point of Care 211 mg/dl (70-99)
[2025-03-18] MEDS: PROTONIX 40 MG PO (08:23)
[2025-03-18] MEDS: ASPIR LOW (ENTERIC COATED) 81 MG PO (08:23)
[2025-03-18] MEDS: NEURONTIN 300 MG PO ×2 (08:23→15:02)
[2025-03-18] MEDS: CYMBALTA DELAYED RELEASE 30 MG PO (08:23)
[2025-03-18] MEDS: DEMADEX 20 MG PO (08:23)
[2025-03-18] MEDS: RANEXA EXTENDED RELEASE 1000 MG PO (08:23)
[2025-03-18] MEDS: IMDUR (EXTENDED RELEASE) 60 MG PO (08:23)
[2025-03-18] MEDS: COREG 25 MG PO (08:23)
[2025-03-18] MEDS: LANTUS 0.32 UNITS SC (08:23)
[2025-03-18] MEDS: NOVOLOG FLEXPEN 10 UNITS SC ×2 (08:24→12:25)
[2025-03-18] MEDS: NOVOLOG FLEXPEN-HIGH RESISTANCE 4 UNITS SC (08:24)
[2025-03-18 08:57] LABS: Hematocrit 27.0 % (39.0-52.0); Hemoglobin 8.4 g/dL (13.0-18.0); Mean Corp Hgb Conc. 31.1 g/dL (33.0-37.0); Mean Corpuscular Volume 89.4 fL (80.0-94.0); Nucleated Red Blood Cells % 0 % (-); Platelet Count 594 10^3/uL (130-400); Red Cell Dist. Width 15.9 % (11.5-14.5)
[2025-03-18 09:31] LABS: Blood Urea Nitrogen 32 mg/dl (9-20); Calcium 8.9 mg/dl (8.4-10.2); Carbon Dioxide 30 mmol/L (22-30); Chloride 102 mmol/L (98-107); Estimated Creatinine Clearance 106 ml/min; Glucose 209 mg/dl (70-99); Potassium 5.2 mmol/L (3.5-5.1); Sodium 138 mmol/L (135-145); eGFR > 60.00
[2025-03-18 12:24] LABS: Glucose - Point of Care 146 mg/dl (70-99)
[2025-03-18] MEDS: NOVOLOG FLEXPEN-HIGH RESISTANCE 1 UNITS SC (12:25)
[2025-03-18] MEDS: NORCO 7.5/325 1 TABLET PO (12:54)
--- NOTE | 2025-03-18 14:37 | W.DCSUMMARY ---
Discharge Summary
Discharge Data
Date of Admission: 03/05/25
Date of Discharge: 03/18/25
-
Pending Results: No
Hospital Course
Patient is a 29y M with PMH significant for DM-I, ASCVD and osteomyelitis s/p digital amputations who presents to ED from local retirement complaining of L foot pain and bleeding.
Acute osteomyelitis of the left first, second, third metatarsal heads with wound dehiscence over recent left hallux and second toe amputation 01/21/2025.
Left heel purulent cellulitis secondary to decubitus
Diphtheroid bacteremia likely contaminant
Sepsis ruled out
Pruritic rash suspect drug reaction
Acute blood loss anemia
Conditions prior to admission
CAD with prior PCI.
PAD status post-RHEOSTAT ASSEMBLER
CHF preserved EF
IDDM
AMBER with CKD 3A
Essential hypertension
History of GBS/CIDP requiring plasma exchange
.
Plan
Acute osteomyelitis of the left first, second, third metatarsal heads with wound dehiscence over recent left hallux and second toe amputation 01/21/2025.
-MRI�evidence of acute osteomyelitis in the 1st and 2nd metatarsal heads, medial side of the third metatarsal head and base of the proximal phalanx of the third toe, severe cellulitis throughout the dorsal left foot, probable mild acute
osteomyelitis in the posterior -medial calcaneus deep to soft tissue ulcer and mild cellulitis
-wound dehiscence of recent left hallux and second toe amputation (01/21/25)
- 03/08 s/p L TMA, heel debridement, and calcaneus biopsy
- OR cultures: MDR-Enterobacter, MSSA, proteus, enterococcus
-Diphtheroid bacteremia likely contaminant. Sepsis ruled out.
- Heel pathology negative for osteomyelitis
- Antibiotic discontinued on 03/16
- Continue wound care as outlined
Acute Blood Loss Anemia secondary to the above
Chronic Anemia
Hgb 6, s/p 2 unit PRBC in ED; Repeat unit 03/10 - total 3 units
-Plavix discontinued (PCI over one year ago)
Hemoglobin remains stable at 8-9
AMBER on CKD stage III
Creatinine rising plateaued at 1.5 and likely close to baseline
Continue self-catheterization
Resume Demadex with dose increased back to preadmission at 40mg daily
Follow BMP
Nephrology input appreciated
ASCVD
- Stable. Continue ASA as noted above. Discontinue Plavix.
CHF preserved EF
Monitor volume status closely.
Hold Demadex given rising creatinine
DM
- BG uncontrolled. Lantus 3 units BID, lispro 10 units TID-meals, SSI high
- A1C = 8.1% last admission.
CIDP
- Stable. Continue current med regimen.
- Previously received PLEX in [place] - need OP follow-up to arrange similar treatments locally.
DVT Prophylaxis: Unable to tolerate SCDs. Holding pharmacologic prophylaxis due to bleeding.
Code Status: Full
Discharge Plan
-
Patient Disposition: Longterm
Discharge Diagnosis/Procedures: Acute osteomyelitis of the left first, second, third metatarsal heads with wound dehiscence over recent left hallux and second toe amputation 01/21/2025.
Left heel purulent cellulitis secondary to decubitus
Diphtheroid bacteremia likely contaminant
Sepsis ruled out
Pruritic rash suspect drug reaction
Acute blood loss anemia
Conditions prior to admission
CAD with prior PCI.
PAD status post-RHEOSTAT ASSEMBLER
CHF preserved EF
IDDM
AMBER with CKD 3A
Essential hypertension
History of GBS/CIDP requiring plasma exchange
Condition: Good
Diet: Diabetic, Carb Controlled
Activity Restrictions/Additional Instructions:
Wound Care Instructions
L foot-as per surgeon's instructions.
L heel-as per surgeon's instructions.
Weight bear restrictions as per surgeon's instruction.
Elevate L heel/foot off bed with pillow/s
Pressure redistributing chair cushion (i.e. Air chair cushion).
Follow up with surgeon.
Referrals:
[facility] [Family Provider, General]
Prescriptions:
New
hydrocodone-acetaminophen 7.5-325 mg Tablet
1 tab PO Q4HPRN PRN (Reason: Moderate pain) Qty: 14 0RF
insulin aspart U-100 100 unit/mL (3 mL) Insulin Pen
10 unit SC AC Qty: 15 0RF
Continued
atorvastatin 80 mg Tablet
80 mg PO HS
carvedilol 25 mg Tablet
25 mg PO BID
aspirin 81 mg Tablet,Delayed Release (Dr/Ec)
81 mg PO DAILY
isosorbide mononitrate 60 mg Tablet Extended Release 24 Hr
60 mg PO DAILY
pantoprazole [Protonix] 40 mg Tablet,Delayed Release (Dr/Ec)
40 mg PO DAILY
insulin glargine [Lantus Solostar U-100 Insulin] 100 unit/mL (3 mL) Insulin Pen
30 unit SC BID
ranolazine 1,000 mg Tablet Extended Release 12 Hr
1,000 mg PO BID
Humulin R Regular U-100 Insuln 100 unit/mL Solution
1 sliding scale dose SC AC
gabapentin 300 mg Capsule
300 mg PO TID
duloxetine 30 mg Capsule,Delayed Release(Dr/Ec)
30 mg PO DAILY
docusate sodium 100 mg Capsule
100 mg PO BID Qty: 30 0RF
mirtazapine 15 mg Tablet
15 mg PO HS
torsemide 20 mg Tablet
40 mg PO DAILY
Discontinued
sulfamethoxazole-trimethoprim [Bactrim DS] 800-160 mg Tablet
1 tab PO BID
doxycycline monohydrate 100 mg Capsule
100 mg PO BID
clopidogrel 75 mg Tablet
75 mg PO DAILY
Discharge Orders:
Discharge Patient (As Directed); Ordered 03/18/25
Ordered By: Lito Young
Discharge Date and Time
Print Language: UKRAINIAN
--- NOTE | 2025-03-18 14:51 | CM ---
CM following re: discharge planning.
Reviewed pt's chart.
Discharge order noted.
Pt is admitted from [facility] and a plan is to discharge pt back to [facility] when medically stable.
[facility] Report: [phone]
[facility]
Plan: Discharge back to [facility] when medically stable
[2025-03-18 15:00] VITALS: BP 134/80
[2025-03-18] MEDS: LOKELMA 10 GRAM PO (15:02)
[2025-03-18 16:27] LABS: Glucose - Point of Care 113 mg/dl (70-99)
[2025-03-18] MEDS: NOVOLOG FLEXPEN SC (16:43)
[2025-03-18] MEDS: NOVOLOG FLEXPEN-HIGH RESISTANCE SC (16:43)
== END 2025-03-18 18:28 | DRG 617 ==
LOC: 2 NORTH 04:13
PROVIDERS: Internal Medicine; Registered Nurse; Student in an Organized Health Care Education/Training Program; ADMITTING PHYSICIAN Hospitalist; ATTENDING PHYSICIAN Internal Medicine; CONSULT PHYSICIAN Internal Medicine Infectious Disease; EMERGENCY PHYSICIAN Student in an Organized Health Care Education/Training Program; OTHER PHYSICIAN Specialist; OTHER PHYSICIAN Student in an Organized Health Care Education/Training Program
PROC: 30233N1 Transfusion of Nonautologous Red Blood Cells into Peripheral Vein, Percutaneous Approach (ICD-10-PCS; 2025-03-05)
PROC: 0QBM0ZX Excision of Left Tarsal, Open Approach, Diagnostic (ICD-10-PCS; 2025-03-09)
PROC: 0Y6U0Z3 Detachment at Left 3rd Toe, Low, Open Approach (ICD-10-PCS; 2025-03-09)
PROC: 0Y6S0Z3 Detachment at Left 2nd Toe, Low, Open Approach (ICD-10-PCS; 2025-03-09)
PROC: 0Y6Y0Z3 Detachment at Left 5th Toe, Low, Open Approach (ICD-10-PCS; 2025-03-09)
PROC: 0Y6Q0Z3 Detachment at Left 1st Toe, Low, Open Approach (ICD-10-PCS; 2025-03-09)
PROC: 0Y6W0Z3 Detachment at Left 4th Toe, Low, Open Approach (ICD-10-PCS; 2025-03-09)
PROC: 0JBR0ZZ Excision of Left Foot Subcutaneous Tissue and Fascia, Open Approach (ICD-10-PCS; 2025-03-09)
DX: E10.69 Type 1 diabetes mellitus with other specified complication (principal); D62 Acute posthemorrhagic anemia; E10.52 Type 1 diabetes mellitus with diabetic peripheral angiopathy with gangrene; M86.172 Other acute osteomyelitis, left ankle and foot; L03.116 Cellulitis of left lower limb; T81.30XA Disruption of wound, unspecified, initial encounter; I50.32 Chronic diastolic (congestive) heart failure; I13.0 Hypertensive heart and chronic kidney disease with heart failure and stage 1 through stage 4 chronic kidney disease, or unspecified chronic kidney disease; G61.81 Chronic inflammatory demyelinating polyneuritis; L97.429 Non-pressure chronic ulcer of left heel and midfoot with unspecified severity; G61.0 Guillain-Barre syndrome; N17.9 Acute kidney failure, unspecified; I25.10 Atherosclerotic heart disease of native coronary artery without angina pectoris; Z95.5 Presence of coronary angioplasty implant and graft; E10.621 Type 1 diabetes mellitus with foot ulcer; Z79.4 Long term (current) use of insulin; N18.31 Chronic kidney disease, stage 3a; K21.9 Gastro-esophageal reflux disease without esophagitis; Z89.511 Acquired absence of right leg below knee; Z82.49 Family history of ischemic heart disease and other diseases of the circulatory system; Z83.2 Family history of diseases of the blood and blood-forming organs and certain disorders involving the immune mechanism; Z83.3 Family history of diabetes mellitus; Z88.5 Allergy status to narcotic agent; Z88.0 Allergy status to penicillin; E78.00 Pure hypercholesterolemia, unspecified; Z79.82 Long term (current) use of aspirin; Z88.8 Allergy status to other drugs, medicaments and biological substances; L29.89 Other pruritus; N32.0 Bladder-neck obstruction; D50.9 Iron deficiency anemia, unspecified; E10.22 Type 1 diabetes mellitus with diabetic chronic kidney disease; F41.9 Anxiety disorder, unspecified; I25.2 Old myocardial infarction; N31.9 Neuromuscular dysfunction of bladder, unspecified; Z79.02 Long term (current) use of antithrombotics/antiplatelets; Z79.899 Other long term (current) drug therapy; Z88.1 Allergy status to other antibiotic agents; F32.A Depression, unspecified
CPT/HCPCS: 71046; 73630; 73718; 80048; 80053; 80202; 81003; 81015; 81099; 82728; 82947; 82962; 83540; 83550; 83605; 85014; 85018; 85025; 85027; 86850; 86900; 86901; 86920; 87040; 87070; 87075; 87077; 87086; 87147; 87186; 87205; 87811; 88304; 88307; 88311; 97163; 97530; 99285; J0714; J0878; P9016

== ENCOUNTER 2025-03-18 19:48 | Emergency (ER) | payer OTHER, SELFPAY ==
[2025-03-18 19:53] VITALS: BP 130/91
--- NOTE | 2025-03-18 22:38 | ED.GENMED ---
History of Present Illness
General
Chief Complaint: Skin Problem
Time Seen by Provider: 03/18/25 21:42
History of Present Illness
History of Present Illness:
29-year-old male with history of diabetes and recent left foot infection presenting to the emergency department from correctional facility for concern of bleeding from postsurgical site. Patient with history of osteomyelitis status post left hallux
and second toe amputation on 01/21, followed by left TMA on 03/08 with heel debridement. Patient had been admitted to the hospital for anemia and osteomyelitis. Patient transfused and blood counts improved. Patient discharged today with stable
hemoglobin, antibiotics stopped on 16 March. Patient discharged today from the hospital and notes that when he was getting into the transfer vehicle back to the correctional facility, he bumped his foot on the side of the truck with subsequent
pain and bleeding. Arrives with concerns of bleeding from postsurgical site. No reported fevers or medical complaints
Past History
Past History
ED Past Medical History: CHF, HTN, IDDM, [place], Other (BKA right, Two toe amputation left, left heel debridement) and Other ([place], Chronic Inflammatory Demylinating Polyneuropathy)
ED Past Surgical History: Orthopedic (Right BKA, left two toe amputation, left heel debridement)
Social History
Tobacco: Non-smoker
Drug: None
Living: detention
Phy Exam
Physical Exam
Physical Exam:
General: Well-appearing, no clinical signs of dehydration, nontoxic and in no acute distress
HEENT: protecting airway
Neck: appears supple
CV: Normal heart rate
Resp: No accessory muscle use, no increased work of breathing
Abd: No distention
Extremities: Status post left TMA with sutures still in place with some opening at the medial aspect of the distal foot with blood clot formation. No active bleeding. No erythema or cellulitic changes. Status post debridement to the left heel,
again without any erythema or warmth to the foot
Neuro: alert, no focal neurologic deficit
: deferred
Rectal: deferred
Psych: Normal affect
Skin: Intact
Course
Vital Signs
Initial and Last Documented VS:
Initial Vital Signs
Temp Pulse Resp BP Pulse Ox
98.6 F 97 18 130/91 98
03/18/25 19:53 03/18/25 19:53 03/18/25 19:53 03/18/25 19:53 03/18/25 19:53
Last Documented Vital Signs
Temp Pulse Resp BP Pulse Ox
98.6 F 97 18 130/91 98
03/18/25 19:53 03/18/25 19:53 03/18/25 19:53 03/18/25 19:53 03/18/25 19:53
MDM/Problems Addressed
MDM/Problems Addressed:
29-year-old with history of diabetes status post left TMA presenting for concern of bleeding foot wound. Vital signs are normal.
On exam patient is resting comfortably, no acute distress. Patient's foot was completely exposed. No active bleeding, however there is a blood clot formation at the medial aspect of the foot near patient's incision. No signs of infection, no
abnormal drainage. Patient's wound was cleaned and majority of blood clot was removed. Again no active bleeding. No neurovascular compromise. No infectious findings. No indication for advanced workup with recent admission and discharge from the
hospital, currently off antibiotics. Wound was dressed with Gelfoam and compressive bandage. Feel stable for discharge with continued outpatient podiatric follow-up. Return precautions discussed
*Pulse Oximetry
SaO2: 98
Oxygen Mode of Delivery: Room air
Patient hypoxic: no
*Critical Care Note
Total Time (30-74mins, 75-104mins- exclusive of procedures): Not Applicable
ED Attending Note
-
Portions of this chart may have been created with voice recognition software.� Occasional wrong word or��sound alike� substitutions may have occurred due to the inherent limitations of voice recognition software.
Discharge Plan
Departure
Patient Disposition: Home (Routine Discharge)
Date of Disposition: 03/18/25
Time of Disposition: 22:43
Patient with high blood pressure during this ER visit?: No
Condition: Good
Discharge Problem:
Bleeding from wound, Encounter for assessment of wound
Instructions: Wound Care (DC)
Prescriptions:
No Action
atorvastatin 80 mg Tablet
80 mg PO HS
carvedilol 25 mg Tablet
25 mg PO BID
aspirin 81 mg Tablet,Delayed Release (Dr/Ec)
81 mg PO DAILY
isosorbide mononitrate 60 mg Tablet Extended Release 24 Hr
60 mg PO DAILY
pantoprazole [Protonix] 40 mg Tablet,Delayed Release (Dr/Ec)
40 mg PO DAILY
insulin glargine [Lantus Solostar U-100 Insulin] 100 unit/mL (3 mL) Insulin Pen
30 unit SC BID
ranolazine 1,000 mg Tablet Extended Release 12 Hr
1,000 mg PO BID
Humulin R Regular U-100 Insuln 100 unit/mL Solution
1 sliding scale dose SC AC
gabapentin 300 mg Capsule
300 mg PO TID
duloxetine 30 mg Capsule,Delayed Release(Dr/Ec)
30 mg PO DAILY
docusate sodium 100 mg Capsule
100 mg PO BID Qty: 30 0RF
mirtazapine 15 mg Tablet
15 mg PO HS
torsemide 20 mg Tablet
40 mg PO DAILY
hydrocodone-acetaminophen 7.5-325 mg Tablet
1 tab PO Q4HPRN PRN (Reason: Moderate pain) Qty: 14 0RF
insulin aspart U-100 100 unit/mL (3 mL) Insulin Pen
10 unit SC AC Qty: 15 0RF
Referrals:
NONE,* [Family Provider, Internal Medicine]
Activity Restrictions/Additional Instructions:
You were seen in the emergency department for bleeding to your foot
You were found to have no active bleeding. Wound was redressed. Please follow-up with your mobility architect manager.
Please follow-up closely with your primary care physician.
Return to the emergency department for any worsening of your symptoms, or any development of chest pain, difficulty breathing, abdominal pain with persistent vomiting and inability to tolerate food or liquid by mouth (concern for dehydration),
weakness, headache or confusion, fever greater than 100.4, or any additional symptoms that are concerning to you.
Thank you for choosing [facility].
Interventions
Interventions:
*Risk Screen - Suicide Last Done: 03/18/25 19:53
*Neglect/Abuse Screening Last Done: 03/18/25 19:53
Discharge Date and Time
Print Language: URUGUAYAN
== END 2025-03-18 23:02 | disposition home or self-care (01) ==
LOC: EMR 19:48
PROVIDERS: EMERGENCY PHYSICIAN Student in an Organized Health Care Education/Training Program
DX: M96.830 Postprocedural hemorrhage of a musculoskeletal structure following a musculoskeletal system procedure (principal); I25.2 Old myocardial infarction; I11.0 Hypertensive heart disease with heart failure; I50.9 Heart failure, unspecified; E11.42 Type 2 diabetes mellitus with diabetic polyneuropathy; Z89.511 Acquired absence of right leg below knee; Z89.422 Acquired absence of other left toe(s)
CPT/HCPCS: 99282

== ENCOUNTER 2025-03-23 08:02 | Inpatient (IN) | payer OTHER, SELFPAY ==
[2025-03-21 20:23] VITALS: BP 153/83
--- NOTE | 2025-03-21 20:35 | ED.GENMED ---
History of Present Illness
General
Chief Complaint: Skin Problem
Time Seen by Provider: 03/21/25 20:35
History of Present Illness
History of Present Illness:
FOCUSED PAST MEDICAL HISTORY
- CIDP, had Gamber a, CHF, high blood pressure, IDDM
REVIEW OF OLD RECORDS
- I reviewed records, the patient was admitted from 03/05/2025 through 03/18/2025. He had left hallux and second toe amputation 01/21/2025. He had transmetatarsal amputation on 82 with heel debridement and calcaneal biopsy OR culture showed MDR
Enterobacter, MSSA, Proteus, Enterococcus and it was felt that diphtheroid bacteremia with contaminant and sepsis has been ruled out. Heel pathology was negative for osteomyelitis. Antibiotics were discontinued around 03 16. He also had blood loss
anemia with a hemoglobin as low as and received 2 units of blood in the emergency department last month. Plavix was discontinued (PCI over a year ago). The patient was also seen in the emergency department 3 days ago and at that time it was
documented that there was no active bleeding and he did have a blood clot that formed medially which was cleaned and removed in the Emergency Department.
Note:
CHIEF COMPLAINT(S)
Postoperative bleeding from surgical wound, poorly controlled blood glucose levels.
HISTORY OF PRESENT ILLNESS
The patient is a 29-year-old male with a recent history of osteomyelitis. He was previously treated for this condition and has since undergone a transmetatarsal amputation of the left foot, performed by Dr. Pond. The patient required a blood
transfusion during his last hospital stay due to low hemoglobin levels. Post-discharge, he returned to the emergency department due to bleeding at the surgical site but was discharged shortly afterward. However, he has been experiencing continued
blood loss over the weekend. Additionally, the staff at [facility], where he currently resides, have reported poorly controlled blood glucose levels. Examination of the left foot reveals a warm and significantly tender dorsal
aspect, with no purulent drainage or foul odor but clotted blood is present at the surgical site without active bleeding. There is concern regarding his current elevated white blood cell count of 12.0 (up from 11.4), a hemoglobin level of 7.5, and
elevated lactic acid at 2.1. His blood glucose is significantly elevated at 438 mg/dL, although he shows no signs of diabetic ketoacidosis.
EXTERNAL RECORDS REVIEWED
Dr. Saini note on the transmetatarsal amputation. Blood transfusion record. Previous lab results showing elevated white blood cell count and low hemoglobin during prior hospitalization.
CHRONIC MEDICAL CONDITIONS SIGNIFICANTLY AFFECTING CARE
The patient has diabetes mellitus, which is currently poorly controlled, complicating his postoperative recovery and necessitating further management of his elevated blood glucose levels.
SOCIAL DETERMINANTS AFFECTING HEALTH
The patient is currently at [facility], which may impact access to consistent healthcare and management for his diabetes and postoperative care.
PHYSICAL EXAM
General: Alert, appears somewhat uncomfortable related to pain at the left foot, he is hypertensive
Skin: Warm, dry.
Head: Normocephalic, atraumatic.
Neck: Supple, trachea midline.
Eye, Ears, Nose, Mouth, and Throat: Oral mucosa moist.
Cardiovascular: Normal peripheral perfusion, no edema. Borderline tachycardic.
Respiratory: Respirations are non-labored.
Gastrointestinal : Abdomen nondistended.
Back: Normal range of motion, normal alignment.
Musculoskeletal: Evidence of transmetatarsal amputation of the left foot. The dorsal aspect of the left foot is warm and significantly tender. However, there is no significant erythema
Neurological: Alert and oriented to person, place, time, and situation. No focal neurological deficit observed.
Psychiatric: Cooperative, appropriate mood & affect.
PROBLEM LIST
Acute Problems:
- Postoperative bleeding from surgical site
- Hyperglycemia
Chronic Problems:
- Diabetes mellitus
PLAN
- Admission/observation to the hospital for re-evaluation of the surgical wound and management of hyperglycemia.
- Consult with podiatry for re-evaluation of the surgical site.
- Blood glucose control through insulin administration, with current glucose at 438 mg/dL.
- Monitor hemoglobin levels closely due to slight decrease and prior transfusion requirements.
- Continue to monitor infection risk given elevated white blood cell count and past osteomyelitis.
DIFFERENTIAL DIAGNOSIS
The Differential Diagnosis includes, in no particular order and is not limited to:
1. Postoperative hemorrhage.
2. Osteomyelitis recurrence.
3. Deep vein thrombosis.
4. Hyperglycemic hyperosmolar state.
5. Diabetic ketoacidosis.
6. Infection at surgical site (non-purulent cellulitis).
7. Anemia secondary to blood loss.
8. Abscess formation at the surgical site (subclinical).
9. Poor wound healing due to diabetes.
10. Systemic inflammatory response syndrome (SIRS) due to high lactic acid.
RADIOLOGY
- X-ray of the left foot shows transmetatarsal amputation which is new in comparison to 2324
LABS
- White count 12.0, hemoglobin 7.5, lactic 2.1
UPDATE
-
Past History
Past History
ED Past Medical History: CHF, HTN, IDDM, [place], Other (BKA right, Two toe amputation left, left heel debridement) and Other (Guillian [place], Chronic Inflammatory Demylinating Polyneuropathy)
ED Past Surgical History: Orthopedic (Right BKA, left two toe amputation, left heel debridement)
Social History
Tobacco: Non-smoker
Drug: None
Living: half-way
Phy Exam
Physical Exam
Physical Exam:
See HPI
Course
Orders/Labs/Results
Orders:
Orders
03/21/25 20:49
CR Foot - Left Min 3 Views Urgent
Comment:
Reason For Exam: eval for osteomyelitis
03/21/25 20:52
HYDROmorphone [Dilaudid] 1 mg IV NOW STA
Ondansetron Injectable [Zofran] 4 mg IV NOW STA
03/21/25 21:00
Type+Screen Urgent
Complete Blood Count/With Diff Urgent
Comprehensive Metabolic Panel Urgent
Lactic Acid Q4H
Comment: CANCEL 2nd LACTIC ACID IF 1st LACTIC ACID IS LESS THAN 2
Blood Culture Q30M
SABAS Source: Blood/Venous
Specimen Description:
Blood Culture Q30M
SABAS Source: Blood/Venous
Specimen Description:
03/21/25 21:16
Wound Culture [Wound/Abscess/Other Culture] Urgent
SABAS Source: Foot
Specimen Description: Left
Date Specimen was Collected: 03/21/25
Time Specimen was Collected: 21:14
03/21/25 22:18
Insulin Human Regular [Novolin R] 10 units SC NOW STA
03/21/25 22:46
HYDROmorphone [Dilaudid] 1 mg IV NOW STA
03/22/25 01:00
Lactic Acid Q4H
Comment: CANCEL 2nd LACTIC ACID IF 1st LACTIC ACID IS LESS THAN 2
Abnormal Lab Results
03/21/25
21:00
WBC 12.0 H 10^3/uL
(4.8-10.8)
RBC 2.71 L 10^6/uL
(4.70-6.10)
Hgb 7.5 L g/dL
(13.0-18.0)
Hct 24.1 L %
(39.0-52.0)
MCHC 31.1 L g/dL
(33.0-37.0)
RDW 16.0 H %
(11.5-14.5)
Plt Count 621 H 10^3/uL
(130-400)
Abs Immat Gran (auto) 0.1 H 10^3/uL
(0-0.05)
Absolute Neuts (auto) 9.1 H 10^3/uL
(1.4-6.5)
Absolute Monos (auto) 1.0 H 10^3/uL
(0.1-0.6)
Immature Gran % 1.0 H %
(0-0.5)
Neutrophils % 75.5 H %
(42.2-75.2)
Lymphocytes % 13.5 L %
(20.5-51.1)
BUN 31 H mg/dl
(9-20)
Glucose 438 H mg/dl
(70-99)
Lactic Acid 2.1 H mmol/L
(0.7-2.0)
Calcium 8.3 L mg/dl
(8.4-10.2)
AST 15 L U/L
(17-59)
03/21/25 21:00
03/21/25 21:00
Vital Signs
Initial and Last Documented VS:
Initial Vital Signs
Temp Pulse Resp BP Pulse Ox
37.3 C 99 18 153/83 97
03/21/25 20:23 03/21/25 20:23 03/21/25 20:23 03/21/25 20:23 03/21/25 20:23
Last Documented Vital Signs
Temp Pulse Resp BP Pulse Ox
37.3 C 99 18 153/83 97
03/21/25 20:23 03/21/25 20:23 03/21/25 20:23 03/21/25 20:23 03/21/25 20:40
*Pulse Oximetry
SaO2: 97
Oxygen Mode of Delivery: Room air
Patient hypoxic: no
*Critical Care Note
Total Time (30-74mins, 75-104mins- exclusive of procedures): Not Applicable
ED Attending Note
-
Portions of this chart may have been created with voice recognition software.� Occasional wrong word or��sound alike� substitutions may have occurred due to the inherent limitations of voice recognition software.
Discharge Plan
Departure
Patient Disposition: Admit
Date of Disposition: 03/21/25
Time of Disposition: 22:47
Presentation/result/management discussed w/ accepting MD/DO: Hospitalist
Discharge Problem:
Hyperglycemia
Prescriptions:
No Action
atorvastatin 80 mg Tablet
80 mg PO HS
carvedilol 25 mg Tablet
25 mg PO BID
aspirin 81 mg Tablet,Delayed Release (Dr/Ec)
81 mg PO DAILY
isosorbide mononitrate 60 mg Tablet Extended Release 24 Hr
60 mg PO DAILY
pantoprazole [Protonix] 40 mg Tablet,Delayed Release (Dr/Ec)
40 mg PO DAILY
insulin glargine [Lantus Solostar U-100 Insulin] 100 unit/mL (3 mL) Insulin Pen
30 unit SC BID
ranolazine 1,000 mg Tablet Extended Release 12 Hr
1,000 mg PO BID
Humulin R Regular U-100 Insuln 100 unit/mL Solution
1 sliding scale dose SC AC
gabapentin 300 mg Capsule
300 mg PO TID
duloxetine 30 mg Capsule,Delayed Release(Dr/Ec)
30 mg PO DAILY
docusate sodium 100 mg Capsule
100 mg PO BID Qty: 30 0RF
mirtazapine 15 mg Tablet
15 mg PO HS
torsemide 20 mg Tablet
40 mg PO DAILY
hydrocodone-acetaminophen 7.5-325 mg Tablet
1 tab PO Q4HPRN PRN (Reason: Moderate pain) Qty: 14 0RF
insulin aspart U-100 100 unit/mL (3 mL) Insulin Pen
10 unit SC AC Qty: 15 0RF
Referrals:
[facility] [Family Provider, General]
Interventions
Interventions:
*Risk Screen - Suicide Last Done: 03/21/25 20:23
*General Assessment Last Done: 03/21/25 20:23
*Neglect/Abuse Screening Last Done: 03/21/25 20:23
ED-Skin Assessment Last Done: 03/21/25 21:51
Discharge Date and Time
Print Language: OCCITAN
[2025-03-21] MEDS: DILAUDID 1 MG IV ×2 (21:04→23:36)
[2025-03-21] MEDS: ZOFRAN 4 MG IV (21:05)
[2025-03-21 21:20] LABS: Hematocrit 24.1 % (39.0-52.0); Hemoglobin 7.5 g/dL (13.0-18.0); Mean Corp Hgb Conc. 31.1 g/dL (33.0-37.0); Mean Corpuscular Volume 88.9 fL (80.0-94.0); Nucleated Red Blood Cells % 0 % (-); Red Cell Dist. Width 16.0 % (11.5-14.5)
[2025-03-21 21:27] LABS: ALT (SGPT) 12 U/L (0-50); AST (SGOT) 15 U/L (17-59); Albumin 3.5 g/dl (3.5-5.0); Alkaline Phosphatase 82 U/L (38-126); Blood Urea Nitrogen 31 mg/dl (9-20); Calcium 8.3 mg/dl (8.4-10.2); Carbon Dioxide 27 mmol/L (22-30); Chloride 105 mmol/L (98-107); Glucose 438 mg/dl (70-99); Potassium 4.5 mmol/L (3.5-5.1); Sodium 138 mmol/L (135-145); Total Protein 7.1 g/dl (6.3-8.2); eGFR > 60.00
[2025-03-21 21:43] LABS: Platelet Count 621 10^3/uL (130-400)
[2025-03-21] MEDS: NOVOLIN R 10 UNITS SC (23:28)
[2025-03-21 23:30] VITALS: BP 139/84
[2025-03-21 23:43] LABS: Glucose - Point of Care 288 mg/dl (70-99)
[2025-03-22] VITALS (11 sets, daily range): BP systolic 101–153; BP diastolic 50–86; BMI 32.6
--- NOTE | 2025-03-22 00:10 | HPS.HSE ---
Family Physician
-
Family Physician: Facility [facility]
Chief Complaint
-
L Foot Pain / Bleeding
History of Present Illness
Patient is a 29y M with PMH significant for DM-I, ASCVD and multiple LE amputations who presents to ED complaining of L foot pain, swelling and bleeding. Patient was recently admitted to from 03/05 - 03/18 for osteomyelitis of the L foot. He
initially underwent amputation of 1st two digits of the L foot on 01/21/25. He returned with wound dehiscence and ultimately required TMA and heel debridement (03/08/25). Patient completed inpatient course of abx on 03/16.
Patient states that he 'banged' his foot on vehicle when leaving the hospital. He returned that same day for evaluation and wound was wrapped / redressed.
He states that since that time he has had worsening bleeding / oozing from the L foot and increased pain in the L foot.
No fevers / chills. He complains of chest pain, headache, occasional SOB and has a generally positive ROS.
Medical History
Past Medical History
Past Medical History: Reports Other
Additional Past Medical History:
IDDM
Osteomyelitis
S/P left hallux and 2nd digit amputation due to osteomyelitis and debridement of left heel ulcer 01/21/25
CAD status post PCI
Hypertension
CHF
Guillian Potts�
GERD.
Past Surgical History: Reports Other
Additional Past Surgical History:
Left TMA and Heel Debridement (03/08/25)
s/p Left 1st and 2nd digit amputation due to osteomyelitis and debridement of left heel ulcer (01/21/25)
PTCA with Stent
Right BKA
Social History
Tobacco: Non-smoker
Alcohol: None
Drug: None
Personal: Single
Living: Residential ([facility]
Employment: Disabled
Family History
Family History: Other (Mother factor V Leiden, CAD/CABG, DM 2 55, father living history CAD multiple stents, DM 2, 4 half sisters 1 with history of factor V Leiden)
Allergies / Home Medications
Allergies reflects when Allergies were last updated in [facility].
Home Medications with original date entered in [facility]
Allergy/Medication List:
Allergies
Allergy/AdvReac Type Severity Reaction Status Date / Time
cefepime Allergy Itching, Verified 03/18/25 19:52
rash
ibuprofen Allergy Unknown Verified 03/18/25 19:52
meropenem Allergy Itching, Verified 03/18/25 19:52
rash
oxycodone Allergy Unknown Verified 03/18/25 19:52
Penicillins Allergy Unknown Verified 03/18/25 19:52
silver Allergy Hives Verified 03/18/25 19:52
silver nitrate Allergy Hives Verified 03/18/25 19:52
sweet potato Allergy Unknown Verified 03/18/25 19:52
tuna oil Allergy Unknown Verified 03/18/25 19:52
turkey Allergy Unknown Verified 03/18/25 19:52
Home Medications
aspirin 81 mg tablet,delayed release 81 mg PO DAILY Blood Clot Prevention/Tx 02/02/25
atorvastatin 80 mg tablet 80 mg PO HS High Cholesterol 02/02/25
carvedilol 25 mg tablet 25 mg PO BID Heart Failure 02/02/25
insulin glargine 100 unit/mL (3 mL) subcutaneous pen (Lantus Solostar U-100 Insulin) 30 unit SC BID Diabetes 02/02/25
isosorbide mononitrate 60 mg tablet,extended release 24 hr 60 mg PO DAILY Heart Disease/Condition 02/02/25
pantoprazole 40 mg tablet,delayed release (Protonix) 40 mg PO DAILY Gastrointestinal Issue 02/02/25
ranolazine 1,000 mg tablet,extended release,12 hr 1,000 mg PO BID Heart Disease/Condition 02/02/25
duloxetine 30 mg capsule,delayed release 30 mg PO DAILY Mental Health/Anxiety 02/07/25
gabapentin 300 mg capsule 300 mg PO TID NEUROPATHIC PAIN 02/07/25
insulin regular human 100 unit/mL injection solution (Humulin R Regular U-100 Insulin) 1 sliding scale dose SC AC Diabetes 02/07/25
docusate sodium 100 mg capsule 100 mg PO BID #30 caps 02/21/25
mirtazapine 15 mg tablet 30 mg PO HS Sleep 03/05/25
torsemide 20 mg tablet 40 mg PO DAILY Fluid Retention/Swelling 03/05/25
insulin aspart U-100 100 unit/mL (3 mL) subcutaneous pen 10 unit (0.1 mL) SC AC #15 mL 03/18/25
clopidogrel 75 mg tablet 75 mg PO DAILY 03/21/25
collagenase clostridium histo. 250 unit/gram topical ointment (Santyl) 1 applic topical HS 03/21/25
sodium hypochlorite 0.5 % solution (Dakin's Solution) 1 applic topical BID 03/21/25
Review of Systems
-
History Source: Patient
A 12 point ROS was completed and negative except as noted: Yes
Constitutional: Reports Fatigue; Denies Fever or Chills
EENT: Denies Sore Throat
Respiratory: Reports Trouble Breathing; Denies Cough
Cardiac: Reports Chest Pain; Denies Palpitations
Abdomen/GI: Reports Nausea; Denies Abdominal Pain, Vomiting or Diarrhea
: Denies Dysuria, Frequency or Flank Pain
Musculoskeletal: Reports Joint Pain and Edema
Neurological: Reports Headache; Denies Dizzy
Psych: Denies Depression or Anxiety
Physical Exam
Vital Signs
Vital Signs
Temp Pulse Resp BP Pulse Ox
98.3 F 93 18 139/84 98
03/21/25 23:30 03/21/25 23:30 03/21/25 23:30 03/21/25 23:30 03/21/25 23:30
Physical Exam
General: Other (29y M in no acute distress. Not ill-appearing.)
HEENT: Moist mucous membranes and PERRLA
Respiratory: Clear; No Wheezes, Rales or Rhonchi
Cardiac: S1/S2 and Regular Rhythm; No Murmur
GI: Soft, Non Tender, Non Distended and Normal Bowel Sounds
Musculoskeletal: Other (s/p R BKA. L TMA with bulky gauze dressing in place over the L foot at present. No evident bleeding / strikethrough.)
Neuro: AO x 3
Laboratory Results
-
03/21/25 21:00
03/21/25 21:00
Laboratory Results
Lactic Acid 2.1 mmol/L (0.7-2.0) H 03/21/25 21:00
Total Bilirubin 0.4 mg/dl (0.2-1.3) 03/21/25 21:00
AST 15 U/L (17-59) L 03/21/25 21:00
ALT 12 U/L (0-50) 03/21/25 21:00
Alkaline Phosphatase 82 U/L (38-126) 03/21/25 21:00
Impression/Plan
-
A/P: Patient is a 29y M with PMH significant for DM-I, ASCVD and osteomyelitis s/p digital amputations who presents to ED from local [facility] complaining of L foot pain and bleeding.
s/p L TMA and Heel Debridement (03/08/25)
Subacute Blood Loss Anemia secondary to the above
Chronic Anemia / Iron Deficiency
- Admit for further evaluation and treatment.
- Images taken prior to new dressing application show post-op changes without significant erythema, bleeding, discharge, etc.
- Podiatry eval in AM for any wound concerns.
- Observe off of any new abx for now per ID recommendations.
- Follow temperature curve. Monitor for any new / worsening symptoms.
- Follow H&H for any changes - Hgb fairly stable compared to prior.
- Transfuse if needed. (Consent signed / in chart).
- TSat was 11% on recent labs - add supplemental iron.
ASCVD
Chest Pain
- Patient states that he has been having frequent chest pain.
- Prior h/o CAD with stent, significant PAD with multiple amputations, etc.
- Check EKG, troponin.
- Continue current med regimen including DAPT, statin, etc.
DM-I with Hyperglycemia
- Stable. Continue basal : bolus insulin regimen.
- Follow glucose and cover with SSI as needed.
- A1C = 8.1% in January.
CKD III
- Stable. Renal function is at / near known baseline.
- Follow for any changes.
CIDP
- Stable. Continue current med regimen.
- Previously received PLEX in [place] - need OP follow-up to arrange similar treatments locally.
DVT Prophylaxis: Lovenox
Code Status: Full
[2025-03-22 01:24] LABS: Glucose - Point of Care 242 mg/dl (70-99)
[2025-03-22] MEDS: FLUSH (NSS) 1 FLUSH IV (02:41)
[2025-03-22 03:14] LABS: Troponin I < 0.012 ng/ml
[2025-03-22] MEDS: NORCO 5/325 1 TABLET PO ×2 (04:27→08:29)
[2025-03-22 06:55] LABS: Hematocrit 23.1 % (39.0-52.0); Hemoglobin 7.3 g/dL (13.0-18.0); Mean Corp Hgb Conc. 31.6 g/dL (33.0-37.0); Mean Corpuscular Volume 90.2 fL (80.0-94.0); Platelet Count 548 10^3/uL (130-400); Red Cell Dist. Width 15.9 % (11.5-14.5)
[2025-03-22 07:12] LABS: Troponin I < 0.012 ng/ml
[2025-03-22 07:15] LABS: Blood Urea Nitrogen 30 mg/dl (9-20); Calcium 8.1 mg/dl (8.4-10.2); Carbon Dioxide 26 mmol/L (22-30); Chloride 104 mmol/L (98-107); Estimated Creatinine Clearance 116 ml/min; Glucose 71 mg/dl (70-99); Potassium 4.0 mmol/L (3.5-5.1); Sodium 138 mmol/L (135-145); eGFR > 60.00
[2025-03-22] MEDS: NOVOLOG FLEXPEN SC (08:03)
[2025-03-22 08:04] LABS: Glucose - Point of Care 43 mg/dl (70-99)
[2025-03-22 08:20] LABS: Glucose - Point of Care 41 mg/dl (70-99)
[2025-03-22] MEDS: DEXTROSE 50% SYRINGE 12.5 GRAMS IV (08:25)
[2025-03-22] MEDS: COREG 25 MG PO ×2 (08:28→20:14)
[2025-03-22] MEDS: FEOSOL 325 MG PO ×2 (08:28→20:14)
[2025-03-22] MEDS: COLACE 100 MG PO ×2 (08:28→20:14)
[2025-03-22] MEDS: NEURONTIN 300 MG PO ×3 (08:28→22:26)
[2025-03-22] MEDS: ASPIR LOW (ENTERIC COATED) 81 MG PO (08:28)
[2025-03-22] MEDS: PROTONIX 40 MG PO (08:29)
[2025-03-22] MEDS: PLAVIX 75 MG PO (08:29)
[2025-03-22 08:52] LABS: Glucose - Point of Care 127 mg/dl (70-99)
--- NOTE | 2025-03-22 08:54 | W.PN.HOSP.TC ---
Today's Communication/Plan
-
Awaiting podiatry evaluation
Continue monitoring for any worsening neurological symptoms
Monitor sugar levels
Monitor pain levels
Assessment / Plan
Assessment / Plan
Assessment:
29-year-old with a past medical history significant for diabetes mellitus type 1, ASCVD and multiple lower extremity amputations presented to the [place] ED complaining of left foot pain, swelling and bleeding. He had recently been admitted to
the [facility] from 03/05 to 03/18 for osteomyelitis of the left foot. He had undergone amputation of the first 2 digits of the left foot on 01/21/2025. He returned for further hospitalization requiring TMA and heel debridement on 03/08/25 and
completed his in patient course of antibiotics on 03/16. As per the patient, he had banged his foot while leaving the hospital which has continued to cause and worsening bleeding/oozing from the left foot. Patient was admitted to the hospital for
podiatry evaluation regarding any wound concerns however his wound did not show any significant erythema, bleeding or discharge. Does not have any fever or chills, but reported some chest pain with negative workup.
Plan:
# Increased bleeding/oozing from site of L TMA and Heel Debridement (03/08/25)
# Subacute Blood Loss Anemia secondary to the above
# Chronic Anemia / Iron Deficiency
- Awaiting podiatry evaluation regarding any procedures that are planned
- No antibiotic treatment for now, no evidence of any infectious process
- Continue monitoring for any fevers, signs of infection
- Hemoglobin has been chronically low, continue monitor and transfuse as needed to keep hemoglobin> 7
- Consent has been signed and in chart
- Iron supplementation started
- Continues to ask for pain medications, pain control ordered
- ID consulted, input appreciated. No Abx necessary at this time as per ID.
- Podiatry to assess tomorrow for any planned procedure at [facility] time
# History of ASCVD
# Chest Pain
- EKG/troponin negative for any acute process
- Chest pain most likely musculoskeletal
- Less concern for anything like pulmonary embolism as lungs clear
# DM-I with Hyperglycemia
- Hypoglycemic this morning, Lantus was halved for this morning
- Follow glucose and cover with SSI as needed, continue home dose of insulin per meals.
- A1C = 8.1% in January.
- Diabetes CLIENT EXPERIENCE MANAGER consulted, input appreciated
# CKD IIIa
- Creatinine around his normal baseline, 1.2
- Continue monitoring BMP
# CIDP
- Continue current meds, will need to arrange for PLEX in outpatient setting once discharged
DVT Prophylaxis: Lovenox
Code Status: Full
Anticipated Discharge: Within 24 hours
Subjective/Interval History
-
Date of Service: March 22, 2025
Patient seen this morning following dressing change by podiatry. Patient says that he is in more pain due to the recent dressing change. Otherwise reports that his symptoms did not really change since he has been here. No acute changes since he
was seen last.
Objective Data
-
Labs:
Laboratory Results
03/21/25 03/22/25
21:00 06:24
WBC 12.0 H 11.7 H
Hgb 7.5 L 7.3 L
Hct 24.1 L 23.1 L
Plt Count 621 H 548 H
Sodium 138 138
Potassium 4.5 4.0
Chloride 105 104
Carbon Dioxide 27 26
BUN 31 H 30 H
Creatinine 1.3 1.2
Glucose 438 H 71
Calcium 8.3 L 8.1 L
Total Bilirubin 0.4
AST 15 L
ALT 12
Alkaline Phosphatase 82
Vital Signs:
Vital Signs
Temp Pulse Resp BP Pulse Ox
97.8 F 83 9 153/86 99
03/22/25 08:26 03/22/25 08:28 03/22/25 07:00 03/22/25 08:28 03/22/25 07:00
Review of Systems
-
History Source: Patient
Constitutional: Reports No Symptoms
EENT: Reports No Symptoms Reported
Respiratory: Reports No Symptoms
Cardiac: Reports No Symptoms
Abdomen/GI: Reports No Symptoms
Genitourinary: Reports No Symptoms
Musculoskeletal: Reports Joint Pain
Skin: Reports No Symptoms
Neuro: Reports No Symptoms
Endocrine: Reports No Symptoms
Hematologic / Lymphatic: Reports No Symptoms
Allergy / Immunology: Reports No Symptoms
Physical Exam
-
General: Well Developed, Well Nourished, No Apparent Distress and Obese
HEENT: Normocephalic and Atraumatic
Respiratory: Clear to Auscultation and Non Labored Respirations; Negative Wheezes, Rales or Rhonchi
Cardiac: Regular Rhythm and S1/S2; Negative Murmur
GI: Soft, Nontender, Nondistended and Normal Bowel Sounds
Musculoskeletal: Other (R BKA; left hallux and second toe amputation; left foot wrapped in dressing)
Skin: Warm and Dry; Negative Rash
Neuro: Awake and AO x 3
Psych: Calm
Data Reviewed
-
Diagnostic Radiology: Report Reviewed by me, Discussed with Physician, Discussed with Nurse and Discussed with Patient
Labs: Labs Reviewed by me, Discussed with Physician, Discussed with Nurse and Discussed with Patient
--- NOTE | 2025-03-22 09:15 | W.PN.UPDATE ---
Update Note
Progress Note Update
29M presents s/p L TMA and heel debridement with dehiscence, high risk of proximal amputation/loss of life.
- strongly recommend IV abx for surgical dehiscence and high risk limb amputation
- tentative plan for OR debridement with NPWT, pending progression of wound/plantar TMA flap
- will order non-invasive vascular studies
- Strict NWB LLE
- offloading precautions
- discussed tight glycemic control for incision healing
- LWC rendered, irrigation with betadine saline mix, packed with betadine dsd
- will reassess tomorrow for possible OR
[2025-03-22] MEDS: LANTUS 0.15 UNITS SC (09:21)
[2025-03-22] MEDS: RANEXA EXTENDED RELEASE 1000 MG PO ×2 (09:21→20:14)
[2025-03-22] MEDS: IMDUR (EXTENDED RELEASE) 60 MG PO (09:22)
[2025-03-22] MEDS: CYMBALTA DELAYED RELEASE 30 MG PO (09:22)
[2025-03-22] MEDS: DEMADEX 40 MG PO (09:22)
--- NOTE | 2025-03-22 09:40 | PTCARENOTE ---
pt aaox3. states 9/10 pain in left foot. dressing changed by podiatry and infectious disease dr. bo narco given pt states it does not work. dr boykin notified and in room to see pt. pt accucheck this morning was 43 juice given repeat was 41 1/2
amp dextrose given repeat 127 and pt then had breakfast. lantus decreased per dr Boykin. pt is shackled to stretcher with two guards in room
--- NOTE | 2025-03-22 10:29 | CON.ID ---
Consultation
-
Date/Time Consultation Requested: March 22, 2025 0204
Date/Time Consultation Performed: March 22, 2025 1031
Requesting Provider: Dr. Jose Mitchell
Performing Provider: Dr. Mary Kay Ca
Reason for Consultation: Foot wound
Chief Complaint / Past History
Chief Complaint
Foot wound bleeding
History of Present Illness
29-year-old male currently incarcerated with history of diabetes mellitus, CAD, Guillain-Potts� syndrome/CIDP, right BKA, left toes osteomyelitis status post amputation and debridement of left heel ulcer on January 21, 2025 who presented to the ER on
03/22 due to profuse bleeding from the left foot amp site. He was recently hospitalized from February 07 - February 24 with significant bleeding from the left heel with blood loss anemia; during hospital stay also developed symptomatic UTI with
multidrug-resistant Enterobacter treated with 7-day course of IV Avycaz; also he was in acute renal failure improved at time of discharge. He was recently re-hospitalized March 05 - March 18 with left foot amp site wound dehiscence and
bleeding. He thought perhaps crawling may have dislodged the amputation site sutures which resulted in profuse bleeding. Hemoglobin 6.0. He was febrile Temperature 101.1. He was placed on cefepime but developed pruritic rash. Cefepime changed
to meropenem with progression of pruritic rash. He received a short course of Avycaz. He underwent left foot TMA and debridement of left heel wound with bone biopsy. Pathology came back clean margin at TMA site, healed biopsy no osteomyelitis.
Antibiotic was discontinued. He was discharged back to skilled nursing on March 18.
He reports the day of discharge March 18 from the hospital, he banged his left foot against the car door. He was in the ER the same day due to bleeding. Bleeding stopped and he was discharged to skilled nursing. However, bleeding persisted and he
complains of increase foot pain. The TMA site noted to have wound dehiscence. In ED afebrile. Foot ray no osteo. He reports no fever or chills. The previous rash has resolved.
Past History
Additional Past Medical History:
Diabetes mellitus
CAD status post PCI
CHF
hx CKD3
Hypertension
Guillain-Potts� syndrome/CIDP, plasma exchange q 2 months
PAD status post right BKA
Left hallux and second toe osteomyelitis status post amputation and debridement of left heel ulcer January 21, 2025
Left foot TMA, I+D left heel wound and bone biopsy of heel Mar 08, 2025
Allergy History:
cefepime Allergy (Verified 03/18/25 19:52)
Itching, rash
ibuprofen Allergy (Verified 03/18/25 19:52)
Unknown
meropenem Allergy (Verified 03/18/25 19:52)
Itching, rash
oxycodone Allergy (Verified 03/18/25 19:52)
Unknown
Penicillins Allergy (Verified 03/18/25 19:52)
Unknown
silver Allergy (Verified 03/18/25 19:52)
Hives
silver nitrate Allergy (Verified 03/18/25 19:52)
Hives
sweet potato Allergy (Verified 03/18/25 19:52)
Unknown
tuna oil Allergy (Verified 03/18/25 19:52)
Unknown
turkey Allergy (Verified 03/18/25 19:52)
Unknown
Medications Reviewed: Yes
Current Antibiotics:
none
Social History
Tobacco: Non-Smoker
Alcohol: None
Drug: None
Living: [facility]
Family History
Family History: Not Pertinent
Review of Systems
Review of Systems
General: Negative Fever, Chills or Change in Appetite
HEENT: Negative Sinus Problems or Headache
Respiratory: Negative Dyspnea or Cough
Genital / Urological: Negative Dysuria or Flank Pain
Endocrine: Negative Weakness
Skin / Hair / Nails: Negative Rash
All systems: All other systems were reviewed and were negative
Vital Signs
Temp Pulse Resp BP Pulse Ox
97.8 F 87 13 153/86 98
03/22/25 08:26 03/22/25 09:30 03/22/25 09:30 03/22/25 09:22 03/22/25 08:45
Physical Exam
Physical Exam
Constitutional: No Acute Distress and Comfortable
Eyes: Pupils Equal and Sclera Anicteric
Cardiovascular: Regular Rate and S1/S2
Pulmonary: Clear
Gastrointestinal: Soft, Non Tender and Normal Bowel Sounds
Wound: Other (LLE: Medial heel wound with some granulation tissue, no deep probe. Left TMA site wound dehiscence laterally with packing in place, rest of TMA site without erythema. Dorsal foot with ecchymotic lesions. )
Lab / Diagnostic Study Results
03/22/25 06:24
03/22/25 06:24
Abs Immat Gran (auto) 0.1 10^3/uL (0-0.05) H 03/21/25 21:00
Absolute Neuts (auto) 9.1 10^3/uL (1.4-6.5) H 03/21/25 21:00
Absolute Lymphs (auto) 1.6 10^3/uL (1.2-3.4) 03/21/25 21:00
Absolute Monos (auto) 1.0 10^3/uL (0.1-0.6) H 03/21/25 21:00
Absolute Basos (auto) 0.1 10^3/uL (0-0.2) 03/21/25 21:00
Immature Gran % 1.0 % (0-0.5) H 03/21/25 21:00
Neutrophils % 75.5 % (42.2-75.2) H 03/21/25 21:00
Lymphocytes % 13.5 % (20.5-51.1) L 03/21/25 21:00
Monocytes % 8.2 % (1.7-9.3) 03/21/25 21:00
Eosinophils % 1.1 % (0-6) 03/21/25 21:00
Basophils % 0.7 % (0-2) 03/21/25 21:00
Lactic Acid 0.9 mmol/L (0.7-2.0) 03/22/25 02:26
Microbiology Results
Micro:
03/21/25 21:16 Wound Culture - Pending
Foot - Left Gram Stain - Pending
03/21/25 21:00 Blood Culture - Pending
Blood/Venous
03/21/25 21:00 Blood Culture - Pending
Blood/Venous
Assessment / Plan
# Left foot TMA site wound dehiscence with bleeding due to trauma
# Recent 03/08 s/p L TMA (surgical cure), heel debridement, and calcaneus biopsy (negative osteo)
# Allergies: PCN, cephalosporin, meropenem
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
# Incarcerated
- Left foot does not appear to have active infection.
- Recommend observe off abx
- Contact isolation
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
Diabetes mellitus
CAD status post PCI
CHF
hx CKD3
Hypertension
Guillain-Potts� syndrome/CIDP, plasma exchange q 2 months
PAD status post right BKA
Left hallux and second toe osteomyelitis status post amputation and debridement of left heel ulcer January 21, 2025
Left foot TMA, I+D left heel wound and bone biopsy of heel Mar 08, 2025
Care Review
Plan reviewed with: Physician (Dr. Porter Nugent)
[2025-03-22 10:37] LABS: Glycohemoglobin (HgbA1c) 6.9 % (4.0-5.6)
[2025-03-22 11:00] LABS: Glucose - Point of Care 281 mg/dl (70-99)
--- NOTE | 2025-03-22 12:09 | PN.DE.MGMTRT ---
Insulin Management
- -
03/22/2025 Diabetes Management Consult
Patient admitted from [facility] 03/21 with c/o bleeding L heel wound. PMH type 1 diabetes, R BKA, L toe amputation, recent debridement L heel, Guillian Meyers Chuck, chf, HTN, CKD, [place], recent admission 01/21 and 03/05 s/p
transmetatarsal L amputation and debridement. Prior to admission was receiving lantus 30 units BID with Humalog insulin ss AC. A1C on admission 6.9%, cr 1.2, eGFR > 60 (improved from 8.1%).
Patient is awake alert and oriented able to discuss diabetes care. Prior to incarceration was living in a [facility] per patient he will return there.
Glucose on admission 438, and 288 @ HS, received 10 units Regular insulin at that time.
Glucose this AM 43, treated then 127. Patient received lantus 15 units this AM and ordered BID. Patient also ordered 10 units novolog ac with moderate corrective insulin. Will reduce corrective insulin from moderate to low and increase lantus to
30 units first dose to start with dinner. (To resume last admission regimen). Will assess glucose for need to further adjust insulin.
Discussed with nurse
Will follow.
Diabetes History
- -
Type of Diabetes: 1
Pre-Admission Diabetes Regimen
03/21/25 03/22/25
21:00 06:24
Creatinine 1.3 1.2
Lab Results
Hemoglobin A1c 6.9 % (4.0-5.6) H 03/22/25 06:24
Insulin Pump Settings
IP Diabetes Regimen
03/21/25 03/21/25 03/22/25
21:00 23:32 01:23
Glucose 438 H
POC Glucose 288 H 242 H
03/22/25 03/22/25 03/22/25
06:24 07:58 08:19
Glucose 71
POC Glucose 43 L* 41 L*
03/22/25 03/22/25
08:50 10:59
Glucose
POC Glucose 127 H 281 H
Meal type: Breakfast
Amount consumed: 100%
Patient Education
[2025-03-22 12:49] LABS: Glucose - Point of Care 282 mg/dl (70-99)
[2025-03-22] MEDS: NOVOLOG FLEXPEN 10 UNITS SC ×2 (12:54→16:51)
[2025-03-22] MEDS: NOVOLOG FLEXPEN-LOW RESISTANCE 3 UNITS SC (12:55)
--- NOTE | 2025-03-22 13:47 | WOUNDNOTE ---
L MEDIAL LOWER LEG
--- NOTE | 2025-03-22 13:47 | WOUNDNOTE ---
L TMA WITH PACKING IN PLACE
--- NOTE | 2025-03-22 13:49 | WOUNDNOTE ---
WO RN note: Patient admitted with hyperglycemia and L foot surgical wound. Patient admitted from [facility]. Patient recently at discharged 03/18/25.
PMH: IDDM, ASCVD, L 1st and 2nd toe amps d/t osteomyelitis (in [place], [place]), R BKA, obesity.
Wound Location and type/assessment: Patient admitted with s/p non healing surgical wound post TMA and L heel debridement by Dr. Long 03/08/25. Podiatry and I&D saw patient today, packing left in place for possible OR. See pictures for details of
wounds.
Appetite: good.
Pressure redistribution devices in place: stretcher, recommend Accumax. Pillow under L leg.
Plan: L foot, L heel dressing outer dressing changed. Will follow along peripherally and assist Podiatry as needed. Will confirm orders with sinter feeder and discussed with BRYN Hilliard.
Care plan to be updated.
--- NOTE | 2025-03-22 15:00 | PTCARENOTE ---
03/22- Patient transferred and oriented to unit without issue. AAOX3; Teley #[id number], NSR. L-foot wound is freshly dressed by WOC RN in ED- dressing CDI. Will not disturb dressing at this time. R-BKA stump has a soft granulation with surrounding
erythema, no drainage. Cleaned and covered with silicone boarder foam. superior aspect of R-knee has a fully granulated abrasion KEV. Patient denies any current needs at this time.
--- NOTE | 2025-03-22 15:43 | CM ---
CM reviewed chart and met with pt bedside in ED. Pt currently resides at [facility].
He has been using a wheelchair as he is non weight bearing on his R foot. He also has a walker.
OBS form reviewed and signed by pt.
Discharge plan: Return to [facility] when medically stable.
[2025-03-22 16:46] LABS: Glucose - Point of Care 198 mg/dl (70-99)
[2025-03-22] MEDS: LANTUS 0.3 UNITS SC (16:50)
[2025-03-22] MEDS: FERRLECIT 110 MG IV (16:50)
[2025-03-22] MEDS: NOVOLOG FLEXPEN-LOW RESISTANCE 1 UNITS SC (16:51)
[2025-03-22] MEDS: LOVENOX 40 MG SC (16:52)
[2025-03-22] MEDS: TYLENOL 650 MG PO (20:17)
[2025-03-22 20:42] LABS: Glucose - Point of Care 135 mg/dl (70-99)
[2025-03-22] MEDS: LIPITOR 80 MG PO (22:26)
[2025-03-22] MEDS: REMERON 30 MG PO (22:26)
[2025-03-23] VITALS (9 sets, daily range): BP systolic 121–151; BP diastolic 69–82; BMI 32.7
--- NOTE | 2025-03-23 00:40 | PTCARENOTE ---
Patient reports having a neurogenic bladder and that he straight caths himself. Bladder scan at 2215 was 305. Repeat bladder scan at 0015 was 1130. Straight cath'd patient, 1125mls output of urine .
[2025-03-23 02:54] LABS: Glucose - Point of Care 180 mg/dl (70-99)
--- NOTE | 2025-03-23 06:00 | PTCARENOTE ---
Bladder scanned patient at 0545 d/t no urine output. Bladder scan was 777. Straight cath'd patient, 760mls urine output at 0600. Patient tolerated procedure well.
--- NOTE | 2025-03-23 07:47 | W.PN.HOSP.TC ---
Addendum entered and electronically signed by Calderon Salcido MD 03/23/25 16:57:
give 1u prbc though hgb not <7, planning for OR
pending pod follow up
Original Note:
Today's Communication/Plan
-
Awaiting podiatry eval
Pain control with Tylenol
Bladder scan and straight catheter now, may require Castillo catheter if staying
Monitor for any worsening condition
Assessment / Plan
Assessment / Plan
Assessment:
29-year-old with a past medical history significant for diabetes mellitus type 1, ASCVD and multiple lower extremity amputations presented to the [place] ED complaining of left foot pain, swelling and bleeding. He had recently been admitted to
the [facility] from 03/05 to 03/18 for osteomyelitis of the left foot. He had undergone amputation of the first 2 digits of the left foot on 01/21/2025. He returned for further hospitalization requiring TMA and heel debridement on 03/08/25 and
completed his in patient course of antibiotics on 03/16. As per the patient, he had banged his foot while leaving the hospital which has continued to cause and worsening bleeding/oozing from the left foot. Patient was admitted to the hospital for
podiatry evaluation regarding any wound concerns however his wound did not show any significant erythema, bleeding or discharge. Does not have any fever or chills, but reported some chest pain with negative workup. Pending further podiatry eval
today, will determine if he needs to go back to the OR.
Plan:
# Increased bleeding/oozing from site of L TMA and Heel Debridement (03/08/25)
# Subacute Blood Loss Anemia secondary to the above
# Chronic Anemia / Iron Deficiency
- Awaiting podiatry evaluation regarding any procedures that are planned
- No antibiotic treatment for now, no evidence of any infectious process
- Continue monitoring for any fevers, signs of infection
- Hemoglobin has been chronically low, continue monitor and transfuse as needed to keep hemoglobin> 7
- Consent has been signed and in chart
- Iron supplementation continue
- Pain control ordered with tylenol, opiates discontinued
- ID consulted, input appreciated. No Abx necessary at this time as per ID.
- Pending podiatry eval today. Possible OR
# History of ASCVD
# Chest Pain
- EKG/troponin negative for any acute process
- Chest pain most likely musculoskeletal
- Less concern for anything like pulmonary embolism as lungs clear
- Continue ASA
- Continue statin
- Continue Ranolazine
- Continue Carvedilol
# DM-I with Hyperglycemia and neuropathy
- A1C = 8.1% in January.
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
- Patient back to his home dose of 30 units of glargine twice daily alongside low-dose insulin sliding scale
- Bladder scan, straight cath as necessary, may need Castillo catheter
- Continue gabapentin, continue duloxetine
# CKD IIIa
- Creatinine around his normal baseline, 1.2
- Continue monitoring BMP
#GERD
- Continue Pantoprazole
# CIDP
- Continue current meds, will need to arrange for PLEX in outpatient setting once discharged
DVT Prophylaxis: Lovenox
Code Status: Full
Anticipated Discharge: 24 - 48 hours
Subjective/Interval History
-
Date of Service: March 23, 2025
Patient seen this morning, was resting comfortably. I woke patient, who said that he has been feeling as well due to his left lower extremity. Overall no further changes from yesterday.
Objective Data
-
Labs:
Laboratory Results
03/23/25
06:00
WBC Pending
Hgb Pending
Hct Pending
Plt Count Pending
Sodium Pending
Potassium Pending
Chloride Pending
Carbon Dioxide Pending
BUN Pending
Creatinine Pending
Glucose Pending
Calcium Pending
Total Bilirubin Pending
AST Pending
ALT Pending
Alkaline Phosphatase Pending
Vital Signs:
Vital Signs
Temp Pulse Resp BP Pulse Ox
98.2 F 91 20 135/82 97
03/23/25 03:00 03/23/25 03:00 03/23/25 03:00 03/23/25 03:00 03/23/25 03:00
I&O
03/22/25 03/23/25 03/24/25
06:59 06:59 06:59
Intake Total 960 / 960
Output Total 1885 / 1885
Balance -925 / -925
Review of Systems
-
History Source: Patient
Constitutional: Reports No Symptoms
EENT: Reports No Symptoms Reported
Respiratory: Reports No Symptoms
Cardiac: Reports Chest Pain
Abdomen/GI: Reports No Symptoms
Genitourinary: Reports Difficulty Voiding
Musculoskeletal: Reports Joint Pain
Skin: Reports No Symptoms
Neuro: Reports No Symptoms
Endocrine: Reports No Symptoms
Hematologic / Lymphatic: Reports No Symptoms
Allergy / Immunology: Reports No Symptoms
Physical Exam
-
General: Well Developed, Well Nourished, Conversant and Obese
HEENT: Normocephalic and Atraumatic
Respiratory: Clear to Auscultation and Non Labored Respirations; Negative Wheezes, Rales or Rhonchi
Cardiac: Regular Rhythm and S1/S2; Negative Murmur
GI: Soft, Nontender, Nondistended and Normal Bowel Sounds
Musculoskeletal: Other (R BKA; left hallux and second toe amputation; left foot wrapped in dressing)
Skin: Warm and Dry; Negative Rash
Neuro: Awake and AO x 3
Psych: Calm
Data Reviewed
-
Labs: Labs Reviewed by me, Discussed with Physician, Discussed with Nurse and Discussed with Patient
--- NOTE | 2025-03-23 07:50 | PN.DE.MGMTRT ---
Insulin Management
- -
03/23/2025: Diabetes Management Follow up
Patient admitted from [facility] 03/21 with c/o bleeding L heel wound. PMH type 1 diabetes, R BKA, L toe amputation, recent debridement L heel, Guillian [place], CHF, HTN, CKD, [place], recent admission 01/21 and 03/05 s/p
transmetatarsal L amputation and debridement. Prior to admission was receiving Lantus 30 units BID with Humalog insulin ss AC. A1C on admission 6.9%, Cr 1.2, eGFR > 60 (improved from 8.1%).
Prior to incarceration was living in a [place] [facility] per patient he will return there.
Patient is awake, alert and oriented, able to discuss diabetes care.
Insulin dose was adjusted yesterday to BID, Lantus 30 units was started at dinner time, HS Glucose was 135, up to 185 @3AM and fasting 245 this AM.
Pt is scheduled to receive 30 units Lantus this AM. Will cont Lantus 30 units BID.
States he is not hungry for breakfast this morning. Will cont AC NovoLog 10 units and low corrective with meals
Will assess glucose trend for need to further adjust insulin today.
Discussed with nurse. Will cont to follow.
Diabetes History
- -
Type of Diabetes: 2 requiring insulin
Pre-Admission Diabetes Regimen
Lab Results
Hemoglobin A1c 6.9 % (4.0-5.6) H 03/22/25 06:24
Insulin Pump Settings
IP Diabetes Regimen
03/22/25 03/22/25 03/22/25
07:58 08:19 08:50
POC Glucose 43 L* 41 L* 127 H
03/22/25 03/22/25 03/22/25
10:59 12:48 16:45
POC Glucose 281 H 282 H 198 H
03/22/25 03/23/25
20:41 02:53
POC Glucose 135 H 180 H
Meal type: Dinner
Meal type: Breakfast
Amount consumed: 100%
Amount consumed: 100%
Patient Education
[2025-03-23 07:54] LABS: Glucose - Point of Care 245 mg/dl (70-99)
[2025-03-23] MEDS: IMDUR (EXTENDED RELEASE) 60 MG PO (08:32)
[2025-03-23] MEDS: COLACE 100 MG PO (08:32)
[2025-03-23] MEDS: COREG 25 MG PO ×2 (08:32→21:28)
[2025-03-23] MEDS: PLAVIX 75 MG PO (08:32)
[2025-03-23] MEDS: ASPIR LOW (ENTERIC COATED) 81 MG PO (08:32)
[2025-03-23] MEDS: FEOSOL 325 MG PO ×2 (08:32→21:29)
[2025-03-23] MEDS: CYMBALTA DELAYED RELEASE 30 MG PO (08:32)
[2025-03-23] MEDS: PROTONIX 40 MG PO (08:32)
[2025-03-23] MEDS: NEURONTIN 300 MG PO ×3 (08:32→21:29)
[2025-03-23] MEDS: RANEXA EXTENDED RELEASE 1000 MG PO ×2 (08:33→21:29)
[2025-03-23] MEDS: DEMADEX 40 MG PO (08:33)
[2025-03-23] MEDS: LANTUS 0.3 UNITS SC ×2 (08:34→17:07)
[2025-03-23] MEDS: NOVOLOG FLEXPEN-LOW RESISTANCE 2 UNITS SC ×3 (08:37→17:08)
[2025-03-23] MEDS: NOVOLOG FLEXPEN SC (08:41)
[2025-03-23 09:05] LABS: Hematocrit 22.3 % (39.0-52.0); Hemoglobin 7.1 g/dL (13.0-18.0); Mean Corp Hgb Conc. 31.8 g/dL (33.0-37.0); Mean Corpuscular Volume 88.8 fL (80.0-94.0); Nucleated Red Blood Cells % 0 % (-); Platelet Count 555 10^3/uL (130-400); Red Cell Dist. Width 16.0 % (11.5-14.5)
[2025-03-23 10:19] LABS: ALT (SGPT) 10 U/L (0-50); AST (SGOT) 12 U/L (17-59); Albumin 3.0 g/dl (3.5-5.0); Alkaline Phosphatase 85 U/L (38-126); Blood Urea Nitrogen 30 mg/dl (9-20); Calcium 8.2 mg/dl (8.4-10.2); Carbon Dioxide 29 mmol/L (22-30); Chloride 104 mmol/L (98-107); Estimated Creatinine Clearance 99 ml/min; Glucose 236 mg/dl (70-99); Potassium 4.3 mmol/L (3.5-5.1); Sodium 138 mmol/L (135-145); Total Protein 6.2 g/dl (6.3-8.2); eGFR > 60.00
[2025-03-23 11:28] LABS: Glucose - Point of Care 226 mg/dl (70-99)
--- NOTE | 2025-03-23 12:04 | WOUNDNOTE ---
AMANDA RN NOTE: Dr. Long confirmed he plans to follow results of studies and reevaluate patient today. Requested wound care orders from Dr. Huntley for nurses to follow will assist as needed.
[2025-03-23] MEDS: NOVOLOG FLEXPEN 10 UNITS SC ×2 (12:35→17:08)
--- NOTE | 2025-03-23 16:16 | W.PN.UPDATE ---
Update Note
Progress Note Update
29M presents s/p L TMA and heel debridement with dehiscence. DTI posterior heel. High risk of proximal amputation/loss of life.
- plan for OR Friday, Debridement with possible NPWT
- arterial duplex reviewed
- strongly recommend IV abx for surgical dehiscence and high risk limb amputation
- Strict NWB LLE
- offloading precautions
- discussed tight glycemic control for incision healing
- LWC rendered: irrigation, packed with betadine dsd
- will continue to monitor
[2025-03-23 16:58] LABS: Glucose - Point of Care 226 mg/dl (70-99)
[2025-03-23] MEDS: TYLENOL 650 MG PO (17:06)
[2025-03-23] MEDS: LOVENOX 40 MG SC (17:09)
[2025-03-23] MEDS: COLACE PO (20:19)
[2025-03-23] MEDS: VISBIOME 2 CAP PO (21:28)
[2025-03-23] MEDS: REMERON 30 MG PO (21:29)
[2025-03-23] MEDS: LIPITOR 80 MG PO (21:29)
[2025-03-23 21:50] LABS: Glucose - Point of Care 94 mg/dl (70-99)
[2025-03-24 03:00] VITALS: BP 159/92
[2025-03-24 03:43] VITALS: BMI 32.3
[2025-03-24 07:25] VITALS: BP 144/87
--- NOTE | 2025-03-24 07:36 | W.PN.HOSP.TC ---
Addendum entered and electronically signed by Calderon Salcido MD 03/24/25 12:47:
Wound swab demonstrated Enterococcus/Anna albicans
Infectious disease following recommend start IV vancomycin
Follow renal function
2 OR on 03/25/2025 with podiatry
Diarrhea
Check C. difficile as was on prolonged antibiotics
If negative start Imodium
If becomes too frequent consider fecal management system
Original Note:
Today's Communication/Plan
-
Continue monitoring hemoglobin
Continue tight glycemic control
Monitor for any worsening pain
Monitor for any change in dressing
OR tomorrow
Assessment / Plan
Assessment / Plan
Assessment:
29-year-old with a past medical history significant for diabetes mellitus type 1, ASCVD and multiple lower extremity amputations presented to the [place] ED complaining of left foot pain, swelling and bleeding. He had recently been admitted to
[facility] from 03/05 to 03/18 for osteomyelitis of the left foot. He had undergone amputation of the first 2 digits of the left foot on 01/21/2025. He returned for further hospitalization requiring TMA and heel debridement on 03/08/25 and
completed his in patient course of antibiotics on 03/16. As per the patient, he had banged his foot while leaving the hospital which has continued to cause and worsening bleeding/oozing from the left foot. Patient was admitted to the hospital for
podiatry evaluation regarding any wound concerns however his wound did not show any significant erythema, bleeding or discharge. Does not have any fever or chills, but reported some chest pain with negative workup.
Plan:
# Increased bleeding/oozing from site of L TMA and Heel Debridement (03/08/25)
# Subacute Blood Loss Anemia secondary to the above
# Chronic Anemia / Iron Deficiency
- Awaiting podiatry evaluation regarding any procedures that are planned
- No antibiotic treatment for now, no evidence of any infectious process
- Continue monitoring for any fevers, signs of infection
- Hemoglobin has been chronically low, continue monitor and transfuse as needed to keep hemoglobin> 7
- Patient's hemoglobin was 7.1 yesterday, transfused 1 unit of PRBC. Continue to monitor CBC
- Consent has been signed and in chart
- Iron supplementation continue
- Pain control ordered with tylenol, opiates discontinued
- ID consulted, input appreciated. No Abx necessary at this time as per ID.
-Vascular ultrasound ordered by podiatry, showed no significant arterial stenosis on the left however Doppler waveforms suggest disease within the distal SFA/popliteal artery and infrapopliteal disease may also be present as per arterial studies.
Multiple lymph nodes were also seen in the left thigh which may be reactive.
- Plan by podiatry is for OR Friday, will for possible debridement and negative pressure wound therapy
# History of ASCVD
# Chest Pain
- EKG/troponin negative for any acute process
- Chest pain most likely musculoskeletal
- Less concern for anything like pulmonary embolism as lungs clear
- Continue ASA
- Continue statin
- Continue Ranolazine
- Continue Carvedilol
# DM-I with Hyperglycemia and neuropathy
- A1C = 8.1% in January.
- Diabetes WAREHOUSE AND RECEIVING SUPERVISOR consulted, input appreciated
- Patient back to his home dose of 30 units of glargine twice daily alongside low-dose insulin sliding scale
- Bladder scan, straight cath as necessary, may need Castillo catheter
- Continue gabapentin, continue duloxetine
# CKD IIIa
- Creatinine around his normal baseline, 1.2
- Continue monitoring BMP
#GERD
- Continue Pantoprazole
# CIDP
- Continue current meds, will need to arrange for PLEX in outpatient setting once discharged
DVT Prophylaxis: Lovenox
Code Status: Full
Anticipated Discharge: 24 - 48 hours
Subjective/Interval History
-
Date of Service: March 24, 2025
Patient seen this morning, resting comfortably in bed. Reported no overnight issues. Discussed with him regarding plan, podiatry signed yesterday and relayed the plan as well. No further questions from him at this time.
Objective Data
-
Labs:
Laboratory Results
03/24/25
06:00
WBC Pending
Hgb Pending
Hct Pending
Plt Count Pending
Sodium Pending
Potassium Pending
Chloride Pending
Carbon Dioxide Pending
BUN Pending
Creatinine Pending
Glucose Pending
Calcium Pending
Total Bilirubin Pending
AST Pending
ALT Pending
Alkaline Phosphatase Pending
Vital Signs:
Vital Signs
Temp Pulse Resp BP Pulse Ox
98.0 F 88 20 159/92 96
03/24/25 03:00 03/24/25 03:00 03/24/25 03:00 03/24/25 03:00 03/24/25 03:00
I&O
03/23/25 03/24/25 03/25/25
06:59 06:59 06:59
Intake Total 960 / 960 1610 / 1610
Output Total 1885 / 1885 800 / 800
Balance -925 / -925 810 / 810
Review of Systems
-
History Source: Patient
Constitutional: Reports No Symptoms
EENT: Reports No Symptoms Reported
Respiratory: Reports No Symptoms
Cardiac: Reports No Symptoms
Abdomen/GI: Reports No Symptoms
Genitourinary: Reports Difficulty Voiding
Musculoskeletal: Reports Joint Pain (Left lower extremity pain)
Skin: Reports No Symptoms
Neuro: Reports No Symptoms
Endocrine: Reports No Symptoms
Hematologic / Lymphatic: Reports No Symptoms
Allergy / Immunology: Reports No Symptoms
Physical Exam
-
General: Well Developed, Well Nourished, Conversant and Obese
HEENT: Normocephalic and Atraumatic
Respiratory: Clear to Auscultation and Non Labored Respirations; Negative Wheezes, Rales or Rhonchi
Cardiac: Regular Rhythm and S1/S2; Negative Murmur
GI: Soft, Nontender, Nondistended and Normal Bowel Sounds
Musculoskeletal: Other (R BKA; left hallux and second toe amputation; left foot wrapped in dressing)
Skin: Warm and Dry; Negative Rash
Neuro: Awake and AO x 3
Psych: Calm
Data Reviewed
-
Ultrasound: Report Reviewed by me, Discussed with Physician, Discussed with Nurse and Discussed with Patient
Labs: Labs Reviewed by me, Discussed with Physician, Discussed with Nurse and Discussed with Patient
[2025-03-24 07:55] LABS: Glucose - Point of Care 108 mg/dl (70-99)
[2025-03-24 08:25] LABS: Hematocrit 24.7 % (39.0-52.0); Hemoglobin 8.0 g/dL (13.0-18.0); Mean Corp Hgb Conc. 32.4 g/dL (33.0-37.0); Mean Corpuscular Volume 88.2 fL (80.0-94.0); Platelet Count 611 10^3/uL (130-400); Red Cell Dist. Width 16.1 % (11.5-14.5)
[2025-03-24] MEDS: NOVOLOG FLEXPEN-LOW RESISTANCE SC (08:33)
[2025-03-24] MEDS: IMDUR (EXTENDED RELEASE) 60 MG PO (08:34)
[2025-03-24] MEDS: LANTUS 0.3 UNITS SC ×2 (08:34→18:13)
[2025-03-24] MEDS: CYMBALTA DELAYED RELEASE 30 MG PO (08:34)
[2025-03-24] MEDS: RANEXA EXTENDED RELEASE 1000 MG PO ×2 (08:34→21:39)
[2025-03-24] MEDS: COREG 25 MG PO ×2 (08:34→21:40)
[2025-03-24] MEDS: NEURONTIN 300 MG PO ×3 (08:34→21:39)
[2025-03-24] MEDS: FEOSOL 325 MG PO ×2 (08:35→21:39)
[2025-03-24] MEDS: DEMADEX 40 MG PO (08:35)
[2025-03-24] MEDS: PROTONIX 40 MG PO (08:35)
[2025-03-24] MEDS: ASPIR LOW (ENTERIC COATED) 81 MG PO (08:35)
[2025-03-24] MEDS: COLACE PO ×2 (08:35→19:50)
[2025-03-24] MEDS: PLAVIX 75 MG PO (08:35)
[2025-03-24] MEDS: NOVOLOG FLEXPEN SC ×2 (08:38→08:43)
[2025-03-24 09:11] LABS: ALT (SGPT) 11 U/L (0-50); AST (SGOT) 12 U/L (17-59); Albumin 3.3 g/dl (3.5-5.0); Alkaline Phosphatase 87 U/L (38-126); Blood Urea Nitrogen 25 mg/dl (9-20); Calcium 8.4 mg/dl (8.4-10.2); Carbon Dioxide 29 mmol/L (22-30); Chloride 106 mmol/L (98-107); Estimated Creatinine Clearance 106 ml/min; Glucose 112 mg/dl (70-99); Potassium 3.7 mmol/L (3.5-5.1); Sodium 143 mmol/L (135-145); Total Protein 6.9 g/dl (6.3-8.2); eGFR > 60.00
--- NOTE | 2025-03-24 10:27 | W.PN.ID1 ---
Date of Service
Date of Service: March 24, 2025
Today's Communication
Start IV Vancomycin.
Assessment / Plan
# Left foot TMA site wound dehiscence with bleeding due to trauma
# Recent 03/08 s/p L TMA (surgical cure), heel debridement, and calcaneus biopsy (negative osteo)
# Allergies: PCN, cephalosporin, meropenem; tolerated Avyzaz
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
# Incarcerated
- To OR 03/25/25.
- Wound swab cx Enterococcus
- Abx as requested by Podiatry.
- Start IV Vancomycin.
- Follow levels and renal function closely.
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
Diabetes mellitus
CAD status post PCI
CHF
hx CKD3
Hypertension
Guillain-Potts� syndrome/CIDP, plasma exchange q 2 months
PAD status post right BKA
Left hallux and second toe osteomyelitis status post amputation and debridement of left heel ulcer January 21, 2025
Left foot TMA, I+D left heel wound and bone biopsy of heel Mar 08, 2025
Chief Complaint
-: Other (Foot wound)
Subjective / Review of Systems
No new complaints. + foot pain
Vital Signs / Physical Exam
Vital Signs
Vital Signs
Temp Pulse Resp BP Pulse Ox
98.4 F 88 16 144/87 98
03/24/25 07:25 03/24/25 07:25 03/24/25 07:25 03/24/25 07:25 03/24/25 07:25
Physical Exam
Constitutional: No Acute Distress and Comfortable
Eyes: No Conjunctival Hemorrhage and Sclera Anicteric
Cardiovascular: Regular Rate and S1/S2
Pulmonary: Clear
Gastrointestinal: Soft, Non Tender and Non Distended
Genito-Urinary: Negative CVA Tenderness
Extremities: Negative Edema
Wound: Other (Left foot dressing dry - see wound photos)
Neurological: AO x 3
Objective Data
Lab Data
Lab Results
03/24/25 07:46
03/24/25 07:46
Estimated Creat Clear 106 ml/min 03/24/25 07:46
Lactic Acid 0.9 mmol/L (0.7-2.0) 03/22/25 02:26
Total Bilirubin 0.4 mg/dl (0.2-1.3) 03/24/25 07:46
AST 12 U/L (17-59) L 03/24/25 07:46
ALT 11 U/L (0-50) 03/24/25 07:46
Alkaline Phosphatase 87 U/L (38-126) 03/24/25 07:46
Most recent labs reviewed.
Micro Results:
03/21/25 21:16 Wound Culture - Preliminary
Foot - Left Enterococcus species
Gram Stain - Preliminary
03/21/25 21:00 Blood Culture - Preliminary
Blood/Venous No Growth in 48 hours- Final report to follow
03/21/25 21:00 Blood Culture - Preliminary
Blood/Venous No Growth in 48 hours- Final report to follow
03/22/25 13:07 MRSA Screen - Final
Nose No Methicillin Resistant Staphylococcus aureus isolated.
--- NOTE | 2025-03-24 10:46 | PHA.VAN.IN ---
Assessment
- Assessment
Renal Function: Appears similar to baseline
Plan
- Plan
Initial / Loading Dose: 2000mg - administration pending
Maintenance Regimen: dosing by level
Monitoring: random 03/25 0600
patient previously accumulated following a dose of 2g and 1750mg
Patient's CrCl likely not reflective of Vanco clearance
Pharmacokinetics Vancomycin I
- -
Patient Age: 29
Patient Sex: Male
Vancomycin Day #: 1
Indication: Skin And Soft Tissue
Requesting Provider: Dr. Ca
Pertinent Antimicrobial Allergies:
cefepime - itching, rash
meropenem - itching, rash
penicillins - unknown
Height / Weight:
Height 6 ft
Actual Weight 107.983 kg
Pertinent Past Medical History: BMI ~32, DM, PAD, CKD 3 (baseline ~1.1)
- Vital Signs / Lab Results
Temp Pulse Resp BP Pulse Ox
98.4 F 88 16 144/87 98
03/24/25 07:25 03/24/25 07:25 03/24/25 07:25 03/24/25 07:25 03/24/25 07:25
Lab Results - Hematology
03/21/25 03/22/25 03/23/25
21:00 06:24 08:26
WBC 12.0 H 11.7 H 12.0 H
03/24/25
07:46
WBC 11.3 H
Lab Results - Chemistry
03/21/25 03/22/25 03/23/25
21:00 06:24 08:26
BUN 31 H 30 H 30 H
Creatinine 1.3 1.2 1.4 H
Estimated Creat Clear 116 99
Albumin 3.5 3.0 L
03/24/25
07:46
BUN 25 H
Creatinine 1.3
Estimated Creat Clear 106
Albumin 3.3 L
03/21/25 03/22/25
21:00 02:26
Lactic Acid 2.1 H 0.9
Microbiology Results
03/21/25 21:16 Wound Culture - Preliminary
Foot - Left Enterococcus species
Gram Stain - Preliminary
03/21/25 21:00 Blood Culture - Preliminary
Blood/Venous No Growth in 48 hours- Final report to follow
03/21/25 21:00 Blood Culture - Preliminary
Blood/Venous No Growth in 48 hours- Final report to follow
03/22/25 13:07 MRSA Screen - Final
Nose No Methicillin Resistant Staphylococcus aureus isolated.
[2025-03-24 11:15] LABS: Glucose - Point of Care 200 mg/dl (70-99)
[2025-03-24 11:20] VITALS: BP 133/78
--- NOTE | 2025-03-24 12:10 | PN.DE.MGMTRT ---
Insulin Management
- -
03/24/2025: Diabetes Management Follow up
Patient admitted from [facility] 03/21 with c/o bleeding L heel wound. PMH type 1 diabetes, R BKA, L toe amputation, recent debridement L heel, Guillian [place], CHF, HTN, CKD, [place], recent admission 01/21 and 03/05 s/p
transmetatarsal L amputation and debridement. Prior to admission was receiving Lantus 30 units BID with Humalog insulin ss AC. A1C on admission 6.9%, Cr 1.2, eGFR > 60 (improved from 8.1%).
Prior to incarceration was living in a senior living per patient he will return there.
Patient is awake, alert and oriented, able to discuss diabetes care.
Patient received BID, Lantus 30 units with novolog 10 units AC, HS Glucose was 94.
Fasting glucose 108 this AM. Patient received lantus 30 units this AM but refused AC novolog, ate full breakfast. Pre lunch glucose 200. Discussed with patient importance of glucose control for wound healing and that refusing insulin would not be
the best choice as he is facing surgery on Friday.
Will cont Lantus 30 units BID with AC NovoLog 10 units and low corrective with meals
Will assess glucose trend for need to further adjust insulin today. Patient for possible OR tomorrow.
Discussed with nurse. Will cont to follow.
Diabetes History
- -
Type of Diabetes: 1
Pre-Admission Diabetes Regimen
03/24/25
07:46
Creatinine 1.3
Lab Results
Hemoglobin A1c 6.9 % (4.0-5.6) H 03/22/25 06:24
Insulin Pump Settings
IP Diabetes Regimen
03/23/25 03/23/25 03/24/25
16:57 21:48 07:46
Glucose 112 H
POC Glucose 226 H 94
03/24/25 03/24/25
07:53 11:14
Glucose
POC Glucose 108 H 200 H
Meal type: Breakfast
Meal type: Dinner
Amount consumed: 75%
Amount consumed: 100%
Patient Education
--- NOTE | 2025-03-24 12:13 | CM ---
CM reviewed chart, patient inmate from [facility], guards present. Per podiatry, plan for OR tomorrow. On IV antibiotics. Patient has been using a WC as he is non weight bearing to foot, also has walker. CM will continue to follow for all discharge
planning needs.
Plan; return to [facility] when medically stable, watch for IV antibiotic needs upon d/c
[2025-03-24] MEDS: VANCOCIN 540 MG IV (13:00)
[2025-03-24] MEDS: NOVOLOG FLEXPEN 10 UNITS SC ×2 (13:03→18:11)
[2025-03-24] MEDS: NOVOLOG FLEXPEN-LOW RESISTANCE 2 UNITS SC (13:07)
[2025-03-24 15:34] VITALS: BP 143/88
[2025-03-24] MEDS: IMODIUM 2 MG PO ×2 (15:45→21:39)
[2025-03-24 16:49] LABS: Glucose - Point of Care 188 mg/dl (70-99)
[2025-03-24] MEDS: NOVOLOG FLEXPEN-LOW RESISTANCE 1 UNITS SC (18:12)
[2025-03-24] MEDS: LOVENOX 40 MG SC (18:13)
[2025-03-24 19:00] VITALS: BP 135/78
[2025-03-24 21:38] LABS: Glucose - Point of Care 149 mg/dl (70-99)
[2025-03-24] MEDS: LIPITOR 80 MG PO (21:39)
[2025-03-24] MEDS: REMERON 30 MG PO (21:39)
--- NOTE | 2025-03-24 21:50 | PTCARENOTE ---
Addendum entered by Zurdo Polk RN 03/25/25 01:24:
Pt with 101.9 temp, Tylenol administered per order. Temp rechecked, 102.4. ADVANCE AGENT on floor made aware, CBC, BMP, Lactic and Blood cultures ordered.
Original Note:
Pt reporting itchiness and rash. Upon assessment pt with blanchable red macular spots generalized, scattered throughout body. Pt reports itchy but not sore, says this started to occur post Vanco administration earlier in the day but did not think
much of it. Pt states he had previous episode of a rash with prior Vanco admin in a past hospital admission. ADVANCE AGENT made aware. 25mg PO Benadryl ordered and given per order. ADVANCE AGENT at bedside. 25mg IV Benadryl and 4mg IV Decadron ordered and administered
per order. 1X neb treatment ordered as well. No further orders.
--- NOTE | 2025-03-24 21:57 | W.PN.UPDATE ---
Update Note
Progress Note Update
-at 10 pm Patient developed itchy rash on face, chest, back and b/ arms. Patient received first dose of vancomycin at 1 pm today. Initially denies sob and no swelling of face/ lips noted. One time order of po Benadryl.
Around one hr later patient developed sob, erythema around eyes. IV benadryl, dexamethasone and neb treatment ordered.
Patient stated that he had allergic reaction to vancomycin before. Will D/C vanco
-Fever with a temp 101.9 ? could related to the vaco reaction or infection? will repeat blood cultures and order lactic.
[2025-03-24] MEDS: BENADRYL 25 MG PO (22:12)
[2025-03-24 23:00] VITALS: BP 126/66
[2025-03-24] MEDS: DECADRON 4 MG IV (23:09)
[2025-03-24] MEDS: BENADRYL 25 MG IV (23:10)
[2025-03-24] MEDS: VENTOLIN NEBULES 2.5 MG INH (23:37)
[2025-03-25] VITALS (14 sets, daily range): BP systolic 86–154; BP diastolic 64–91; BMI 31.7
[2025-03-25] MEDS: TYLENOL 650 MG PO (00:02)
[2025-03-25 01:35] LABS: Hematocrit 24.8 % (39.0-52.0); Hemoglobin 8.0 g/dL (13.0-18.0); Mean Corp Hgb Conc. 32.3 g/dL (33.0-37.0); Mean Corpuscular Volume 85.8 fL (80.0-94.0); Platelet Count 528 10^3/uL (130-400); Red Cell Dist. Width 16.3 % (11.5-14.5)
[2025-03-25 01:45] LABS: Blood Urea Nitrogen 28 mg/dl (9-20); Calcium 8.6 mg/dl (8.4-10.2); Carbon Dioxide 28 mmol/L (22-30); Chloride 104 mmol/L (98-107); Estimated Creatinine Clearance 106 ml/min; Glucose 97 mg/dl (70-99); Potassium 3.6 mmol/L (3.5-5.1); Sodium 138 mmol/L (135-145); eGFR > 60.00
[2025-03-25 06:35] LABS: Glucose - Point of Care 217 mg/dl (70-99)
--- NOTE | 2025-03-25 07:56 | PN.DE.MGMTRT ---
Insulin Management
- -
03/25/2025: Diabetes Management Follow up
Patient admitted from [facility] 03/21 with c/o bleeding L heel wound. PMH type 1 diabetes, R BKA, L toe amputation, recent debridement L heel, Guillian [place], CHF, HTN, CKD, [place], recent admission 01/21 and 03/05 s/p
transmetatarsal L amputation and debridement. Prior to admission was receiving Lantus 30 units BID with Humalog insulin ss AC. A1C on admission 6.9%, Cr 1.2, eGFR > 60 (improved from 8.1%).
Prior to incarceration was living in a half-way per patient he will return there.
Patient is awake, alert and oriented, resting in bed, offers no complaints, able to discuss diabetes care.
Patient is NPO for OR today, received BID Lantus 30 units with NovoLog 10 units AC, HS Glucose was 149 and down to 97@ 2AM.
Fasting glucose 217 this AM. Pre meal glucose range 188 to 200 yesterday.
Will cont Lantus 30 units BID with AC NovoLog 10 units and low corrective with meals.
Will assess glucose trend for need to further adjust insulin today.
Discussed with patient importance of glucose control for wound healing and that refusing insulin would not be the best choice as he is facing surgery on Friday.
Discussed with nurse. Will cont to follow.
Diabetes History
- -
Type of Diabetes: 2 requiring insulin
Pre-Admission Diabetes Regimen
03/24/25 03/25/25
07:46 01:16
Creatinine 1.3 1.3
Lab Results
Hemoglobin A1c 6.9 % (4.0-5.6) H 03/22/25 06:24
Insulin Pump Settings
IP Diabetes Regimen
03/24/25 03/24/25 03/24/25
07:46 11:14 16:48
Glucose 112 H
POC Glucose 200 H 188 H
09/06/0703/25/25 03/25/25
21:37 01:16 06:34
Glucose 97
POC Glucose 149 H 217 H
Meal type: Dinner
Meal type: Lunch
Amount consumed: 75%
Amount consumed: 75%
Patient Education
[2025-03-25 08:01] LABS: Glucose - Point of Care 258 mg/dl (70-99)
--- NOTE | 2025-03-25 08:20 | W.PN.HOSP.TC ---
Addendum entered and electronically signed by Calderon Salcido MD 03/25/25 13:30:
Wound swab demonstrated Enterococcus/Anna albicans
Infectious disease following recommend start IV vancomycin, enterococcus is vre also had a reaction to vanc therefore, DC vanc. Would initiate Ampicillin as sensitive but allergic to this
Follow renal function
2 OR on 03/25/2025 with podiatry
Diarrhea
Cdif Ag +, toxin neg
Start Imodium
Original Note:
Today's Communication/Plan
-
Podiatry surgery today
Continue monitoring sugars
Changing antibiotics from vancomycin
Watch for any further drug reactions
Assessment / Plan
Assessment / Plan
Assessment:
29-year-old with a past medical history significant for diabetes mellitus type 1, ASCVD and multiple lower extremity amputations presented to the [facility] complaining of left foot pain, swelling and bleeding. He had recently been admitted to
the [facility] from 03/05 to 03/18 for osteomyelitis of the left foot. He had undergone amputation of the first 2 digits of the left foot on 01/21/2025. He returned for further hospitalization requiring TMA and heel debridement on 03/08/25 and
completed his in patient course of antibiotics on 03/16. As per the patient, he had banged his foot while leaving the hospital which has continued to cause and worsening bleeding/oozing from the left foot. Patient was admitted to the hospital for
podiatry evaluation regarding any wound concerns however his wound did not show any significant erythema, bleeding or discharge. Does not have any fever or chills, but reported some chest pain with negative workup.
Plan:
# Increased bleeding/oozing from site of L TMA and Heel Debridement (03/08/25)
# Subacute Blood Loss Anemia secondary to the above
# Chronic Anemia / Iron Deficiency
- Awaiting podiatry evaluation regarding any procedures that are planned
- No antibiotic treatment for now, no evidence of any infectious process
- Continue monitoring for any fevers, signs of infection
- Hemoglobin has been chronically low, continue monitor and transfuse as needed to keep hemoglobin> 7
- Patient's hemoglobin was 7.1 yesterday, transfused 1 unit of PRBC. Continue to monitor CBC
- Consent has been signed and in chart
- Iron supplementation continue
- Pain control ordered with tylenol, opiates discontinued
- ID consulted, input appreciated. Vancomycin was started yesterday following their discussion with podiatry, patient had an adverse allergic reaction to vancomycin which was discontinued.
- Awaiting further recommendations to starting IV antibiotics
-Vascular ultrasound ordered by podiatry, showed no significant arterial stenosis on the left however Doppler waveforms suggest disease within the distal SFA/popliteal artery and infrapopliteal disease may also be present as per arterial studies.
Multiple lymph nodes were also seen in the left thigh which may be reactive.
- Plan by podiatry is for OR Friday, for possible debridement and negative pressure wound therapy
# History of ASCVD
# Chest Pain
- EKG/troponin negative for any acute process
- Chest pain most likely musculoskeletal
- Less concern for anything like pulmonary embolism as lungs clear
- Continue ASA
- Continue statin
- Continue Ranolazine
- Continue Carvedilol
# DM-I with Hyperglycemia and neuropathy
- A1C = 8.1% in January.
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
- Patient back to his home dose of 30 units of glargine twice daily alongside low-dose insulin sliding scale
- Bladder scan, straight cath as necessary, may need Castillo catheter
- Continue gabapentin, continue duloxetine
# CKD IIIa
- Creatinine around his normal baseline, 1.2
- Continue monitoring BMP
#GERD
- Continue Pantoprazole
# CIDP
- Continue current meds, will need to arrange for PLEX in outpatient setting once discharged
DVT Prophylaxis: Lovenox
Code Status: Full
Anticipated Discharge: Within 24 hours
Subjective/Interval History
-
Date of Service: March 25, 2025
Spoke with patient today, was resting comfortably in his bed. Let me know that he had a bout of difficulty breathing, increased temperature and rash on his upper extremities last night. He said that he has had allergic reaction to vancomycin
before which is what may have been causing his symptoms last night. Recommendation was discontinued and he was given a dose of Benadryl which seemed to resolve his symptoms. This morning he did not have any of the symptoms that he had last night,
had no difficulty breathing had no shortness of breath, and had no further evidence of rash that I can see. Overall feeling better and ready for podiatry surgery today.
Objective Data
-
Labs:
Laboratory Results
03/25/25 03/25/25
01:16 06:00
WBC 12.9 H Pending
Hgb 8.0 L Pending
Hct 24.8 L Pending
Plt Count 528 H Pending
Sodium 138 Pending
Potassium 3.6 Pending
Chloride 104 Pending
Carbon Dioxide 28 Pending
BUN 28 H Pending
Creatinine 1.3 Pending
Glucose 97 Pending
Calcium 8.6 Pending
Total Bilirubin Pending
AST Pending
ALT Pending
Alkaline Phosphatase Pending
Vital Signs:
Vital Signs
Temp Pulse Resp BP Pulse Ox
97.7 F 86 18 154/91 99
03/25/25 07:18 03/25/25 07:18 03/25/25 07:18 03/25/25 07:18 03/25/25 07:18
I&O
03/24/25 03/25/25 03/26/25
06:59 06:59 06:59
Intake Total 1610 / 1610 1100 / 1100
Output Total 800 / 800 4000 / 4000
Balance 810 / 810 -2900 / -2900
Review of Systems
-
History Source: Patient
Constitutional: Reports No Symptoms
EENT: Reports No Symptoms Reported
Respiratory: Reports No Symptoms
Cardiac: Reports No Symptoms
Abdomen/GI: Reports No Symptoms
Genitourinary: Reports Difficulty Voiding (Self caths)
Musculoskeletal: Reports Joint Pain (Left lower extremity pain)
Skin: Reports No Symptoms
Neuro: Reports No Symptoms
Endocrine: Reports No Symptoms
Hematologic / Lymphatic: Reports No Symptoms
Allergy / Immunology: Reports No Symptoms
Physical Exam
-
General: Well Developed, Well Nourished, Conversant and Obese
HEENT: Normocephalic and Atraumatic
Respiratory: Clear to Auscultation and Non Labored Respirations; Negative Wheezes, Rales or Rhonchi
Cardiac: Regular Rhythm and S1/S2; Negative Murmur
GI: Soft, Nontender, Nondistended and Normal Bowel Sounds
Musculoskeletal: Other (R BKA; left hallux and second toe amputation; left foot wrapped in dressing)
Skin: Warm and Dry; Negative Rash
Neuro: Awake and AO x 3
Psych: Calm
Data Reviewed
-
Labs: Labs Reviewed by me, Discussed with Physician, Discussed with Nurse and Discussed with Patient
[2025-03-25] MEDS: NOVOLOG FLEXPEN-LOW RESISTANCE SC ×2 (08:37→12:00)
[2025-03-25] MEDS: NOVOLOG FLEXPEN SC ×2 (08:37→12:00)
[2025-03-25] MEDS: RANEXA EXTENDED RELEASE 1000 MG PO ×2 (08:38→20:59)
[2025-03-25] MEDS: LANTUS SC (08:38)
[2025-03-25] MEDS: DEMADEX 40 MG PO (08:39)
[2025-03-25] MEDS: COLACE 100 MG PO ×2 (08:39→20:58)
[2025-03-25] MEDS: IMDUR (EXTENDED RELEASE) 60 MG PO (08:39)
[2025-03-25] MEDS: CYMBALTA DELAYED RELEASE 30 MG PO (08:39)
[2025-03-25] MEDS: NEURONTIN 300 MG PO ×3 (08:39→20:59)
[2025-03-25] MEDS: PROTONIX 40 MG PO (08:39)
[2025-03-25] MEDS: ASPIR LOW (ENTERIC COATED) 81 MG PO (08:39)
[2025-03-25] MEDS: FEOSOL 325 MG PO ×2 (08:40→20:59)
[2025-03-25] MEDS: COREG 25 MG PO ×2 (08:40→20:58)
[2025-03-25] MEDS: PLAVIX 75 MG PO (08:40)
[2025-03-25 09:44] LABS: Hematocrit 25.3 % (39.0-52.0); Hemoglobin 8.3 g/dL (13.0-18.0); Mean Corp Hgb Conc. 32.8 g/dL (33.0-37.0); Mean Corpuscular Volume 85.8 fL (80.0-94.0); Platelet Count 552 10^3/uL (130-400); Red Cell Dist. Width 15.9 % (11.5-14.5)
[2025-03-25 10:01] LABS: ALT (SGPT) 11 U/L (0-50); AST (SGOT) 12 U/L (17-59); Albumin 3.4 g/dl (3.5-5.0); Alkaline Phosphatase 88 U/L (38-126); Blood Urea Nitrogen 31 mg/dl (9-20); Calcium 8.4 mg/dl (8.4-10.2); Carbon Dioxide 24 mmol/L (22-30); Chloride 105 mmol/L (98-107); Estimated Creatinine Clearance 105 ml/min; Glucose 276 mg/dl (70-99); Potassium 3.9 mmol/L (3.5-5.1); Sodium 140 mmol/L (135-145); Total Protein 7.0 g/dl (6.3-8.2); eGFR > 60.00
[2025-03-25 11:42] LABS: Glucose - Point of Care 289 mg/dl (70-99)
--- NOTE | 2025-03-25 14:09 | W.PN.ID1 ---
Date of Service
Date of Service: March 25, 2025
Today's Communication
transition to daptomycin.
Assessment / Plan
# Left foot TMA site wound dehiscence with bleeding due to trauma
# Recent 03/08 s/p L TMA (surgical cure), heel debridement, and calcaneus biopsy (negative osteo)
# Allergies: PCN, cephalosporin, meropenem; tolerated Avyzaz
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
# Incarcerated
- To OR 03/25/25.
- Wound swab cx Enterococcus (VRE); sensitive to dapto.
- Transition to daptomycin. Hold statin.
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
Diabetes mellitus
CAD status post PCI
CHF
hx CKD3
Hypertension
Guillain-Potts� syndrome/CIDP, plasma exchange q 2 months
PAD status post right BKA
Left hallux and second toe osteomyelitis status post amputation and debridement of left heel ulcer January 21, 2025
Left foot TMA, I+D left heel wound and bone biopsy of heel Mar 08, 2025
Chief Complaint
-: Other (Foot wound)
Subjective / Review of Systems
Patient seen and examined. Chart reviewed. Patient received vancomycin yesterday afternoon at approximately 1 PM. Reportedly well for the next 8 to 9 hours, but per chart review, at approximately 10 PM patient developed itchy rash on face, chest,
back and bilateral arms. Currently feels well. Rash has resolved. No shortness of breath.
Vital Signs / Physical Exam
Vital Signs
Vital Signs
Temp Pulse Resp BP Pulse Ox
98.4 F 93 18 143/87 95
03/25/25 11:45 03/25/25 11:45 03/25/25 11:45 03/25/25 11:45 03/25/25 11:45
Physical Exam
Constitutional: No Acute Distress and Comfortable
Eyes: No Conjunctival Hemorrhage and Sclera Anicteric
Cardiovascular: Regular Rate and S1/S2
Pulmonary: Clear
Gastrointestinal: Soft, Non Tender and Non Distended
Genito-Urinary: Negative CVA Tenderness
Extremities: Negative Edema
Wound: Other (Left foot dressing dry - see wound photos)
Neurological: AO x 3
Objective Data
Lab Data
Lab Results
03/25/25 09:32
03/25/25 09:32
Estimated Creat Clear 105 ml/min 03/25/25 09:32
Lactic Acid 0.8 mmol/L (0.7-2.0) 03/25/25 01:16
Total Bilirubin 0.5 mg/dl (0.2-1.3) 03/25/25 09:32
AST 12 U/L (17-59) L 03/25/25 09:32
ALT 11 U/L (0-50) 03/25/25 09:32
Alkaline Phosphatase 88 U/L (38-126) 03/25/25 09:32
Most recent labs reviewed.
Micro Results:
03/24/25 12:51 Salmonella/Shigella Culture - Preliminary
Feces/Stool Culture in Progress
Campylobacter Culture - Preliminary
Culture in Progress
Shiga Toxin Test - Pending
03/25/25 09:33 Blood Culture - Pending
Blood/Venous
03/21/25 21:16 Wound Culture - Final
Foot - Left Enterococcus faecalis - VRE
Anna albicans
Gram Stain - Final
03/25/25 01:16 Blood Culture - Pending
Blood/Venous
03/21/25 21:00 Blood Culture - Preliminary
Blood/Venous No Growth in 72 hours- Final report to follow
03/21/25 21:00 Blood Culture - Preliminary
Blood/Venous No Growth in 72 hours- Final report to follow
03/24/25 12:53 C. difficile GDH Antigen & Toxins - Final
Feces/Stool C. difficile antigen positive, toxin negative.
Clostridium difficile present, but toxin not detected.
Patient may be a carrier, colonized with nontoxinogenic
strain or the level of toxin in sample is below detection
limits. This information should be used in conjunction with
the patient's clinical history.
03/22/25 13:07 MRSA Screen - Final
Nose No Methicillin Resistant Staphylococcus aureus isolated.
[2025-03-25] MEDS: IMODIUM 2 MG PO (14:50)
[2025-03-25 15:54] LABS: Glucose - Point of Care 318 mg/dl (70-99)
--- NOTE | 2025-03-25 16:59 | W.PN.SURGUPD ---
Surgical Update
Surgical Update
29 yo M s/p left foot debridement with metatarsal debridement, heel wound debridement, wound vac application
-2x cultures obtained, 1x pathology of 2nd metatarsal
-Wound VAC to remain C/D/I at 125mmHg
-Continue abx per ID recs
-Plan for return to OR for possible debridement vs closure pending cultures and clinical evaluation
[2025-03-25] MEDS: SUBLIMAZE 50 MCG IV (17:32)
[2025-03-25] MEDS: DILAUDID 0.5 MG IV (17:58)
[2025-03-25] MEDS: CUBICIN IV (18:20)
[2025-03-25 19:28] LABS: Glucose - Point of Care 261 mg/dl (70-99)
[2025-03-25] MEDS: NOVOLOG FLEXPEN 10 UNITS SC (19:29)
[2025-03-25] MEDS: NOVOLOG FLEXPEN-LOW RESISTANCE 3 UNITS SC (19:30)
[2025-03-25] MEDS: LANTUS 0.3 UNITS SC (19:31)
[2025-03-25] MEDS: LOVENOX 40 MG SC (19:32)
--- NOTE | 2025-03-25 20:00 | PTCARENOTE ---
Addendum entered by Libia Gallagher RN 03/25/25 23:04:
At 2100 also reached out to podiatry-surgical dumper [employer], no response.
Original Note:
Pt. received from PACU, left foot wound vac alarming when pt. brought to room, tried to trouble shoot without success, pt. bleeding moderately, notified DONTE Romero, took off dressing and placed new wound vac dressing, pain medication
administered, will continue to monitor.
[2025-03-25] MEDS: FLUSH (NSS) 1 FLUSH IV ×2 (20:55→22:23)
[2025-03-25] MEDS: DILAUDID 0.25 MG IV ×2 (20:55→22:29)
[2025-03-25] MEDS: REMERON 30 MG PO (20:59)
[2025-03-25 21:13] LABS: Glucose - Point of Care 342 mg/dl (70-99)
--- NOTE | 2025-03-25 22:18 | W.PN.UPDATE ---
Update Note
Progress Note Update
-Around 9 pm, Called at bedside as wound vac is not functioning. Wound vac machine tube is clogged and blood leaking around the dressing. Old dressing/granu foam/ suction tubing/and canister were removed and exchanged. Wound vac machine worked fine.
IVF maintenance ordered NSS 100cc/hr.
-2 hrs Later, reported by nursing staff that machine is not functioning again, Wrecker Operator economic geographer recommended to add compression dressing and leave wound vac off at the mean time.
- 4am Patient is hypotensive 80/40, hr 80 asymptomatic. Compression dressing noted with no blood leaking
-NSS IV bolus 1000cc ordered.
-Stat h&h, type& screen ordered.
-hgb 5.7 previously 8.3.
-2 units of blood ordered.
-Tele
[2025-03-25] MEDS: NSS 1000 IV (22:22)
[2025-03-25] MEDS: NOVOLOG FLEXPEN 4 UNITS SC (22:28)
[2025-03-26] VITALS (17 sets, daily range): BP systolic 86–125; BP diastolic 41–62; BMI 31.0
[2025-03-26 00:13] LABS: Glucose - Point of Care 310 mg/dl (70-99)
--- NOTE | 2025-03-26 00:45 | PTCARENOTE ---
Pt's new wound vac occluded and pt. bleeding moderately through dressing again, notified podiatry/surg Dr. Guerra, ordered a compression dressing and leave wound vac off for now, will continue to monitor.
[2025-03-26] MEDS: DILAUDID 0.25 MG IV ×6 (02:37→22:58)
[2025-03-26] MEDS: NSS 1000 IV (04:28)
--- NOTE | 2025-03-26 05:00 | PTCARENOTE ---
Pt. willian blood pressure 80/42, pt. noted he felt 'dizzy', left foot dressing saturating through the heel area on the compression dressing, notified DONTE Romero, stat labs ordered, 1000 NSS bolus given, hgb 5.7, two units PRBC's ordered, will
continue to monitor.
[2025-03-26 05:07] LABS: Hematocrit 17.7 % (39.0-52.0); Hemoglobin 5.7 g/dL (13.0-18.0)
[2025-03-26 08:16] LABS: Glucose - Point of Care 295 mg/dl (70-99)
[2025-03-26] MEDS: COREG PO (08:43)
[2025-03-26] MEDS: IMDUR (EXTENDED RELEASE) PO (08:44)
[2025-03-26] MEDS: CYMBALTA DELAYED RELEASE 30 MG PO (08:45)
[2025-03-26] MEDS: PLAVIX 75 MG PO (08:45)
[2025-03-26] MEDS: DEMADEX 40 MG PO (08:45)
[2025-03-26] MEDS: ASPIR LOW (ENTERIC COATED) 81 MG PO (08:45)
[2025-03-26] MEDS: PROTONIX 40 MG PO (08:45)
[2025-03-26] MEDS: COLACE 100 MG PO ×2 (08:45→21:52)
[2025-03-26] MEDS: RANEXA EXTENDED RELEASE 1000 MG PO ×2 (08:45→21:52)
[2025-03-26] MEDS: NEURONTIN 300 MG PO ×3 (08:45→21:52)
[2025-03-26] MEDS: NOVOLOG FLEXPEN 10 UNITS SC ×4 (08:46→23:52)
[2025-03-26] MEDS: NOVOLOG FLEXPEN-LOW RESISTANCE 3 UNITS SC (08:46)
[2025-03-26] MEDS: FEOSOL 325 MG PO ×2 (08:46→21:52)
[2025-03-26] MEDS: LANTUS 0.3 UNITS SC ×2 (08:46→17:06)
--- NOTE | 2025-03-26 10:27 | W.PN.UPDATE ---
Update Note
Progress Note Update
29 yo M s/p left foot debridement with metatarsal debridement, heel wound debridement, wound vac application. Patient NAD, overnight NPWT removed due to blockage and converted to saline wet to dry dressing. AM hgb 5.7 receiving 2 units. dressing
with NO strikethrough.
- NWB RLE
- continue offloading precautions, pillow behind calf to have heel and lateral foot in floating position
-2x cultures obtained, 1x pathology of 2nd metatarsal
- Anticipate reapplication of NPWT Friday
-Continue abx per ID recs
-Plan for return to OR for possible debridement vs closure pending cultures and clinical evaluation
[2025-03-26 11:23] LABS: ALT (SGPT) < 10 U/L (0-50); AST (SGOT) 12 U/L (17-59); Albumin 2.6 g/dl (3.5-5.0); Alkaline Phosphatase 52 U/L (38-126); Blood Urea Nitrogen 45 mg/dl (9-20); Calcium 7.7 mg/dl (8.4-10.2); Carbon Dioxide 25 mmol/L (22-30); Chloride 102 mmol/L (98-107); Estimated Creatinine Clearance 54 ml/min; Glucose 313 mg/dl (70-99); Potassium 4.2 mmol/L (3.5-5.1); Sodium 134 mmol/L (135-145); Total Protein 5.6 g/dl (6.3-8.2); eGFR 34.80
[2025-03-26 11:50] LABS: Glucose - Point of Care 366 mg/dl (70-99)
[2025-03-26 11:53] LABS: Glucose - Point of Care 336 mg/dl (70-99)
[2025-03-26] MEDS: NOVOLOG FLEXPEN-LOW RESISTANCE 4 UNITS SC (12:01)
--- NOTE | 2025-03-26 12:02 | W.PN.UPDATE ---
Addendum entered and electronically signed by Calderon Salcido MD 03/26/25 14:35:
Repeat BMP reviewed
Cr remains high
Likely AMBER which is secondary to acute blood loss anemia secondary to podiatry debridement and likely ischemic atn will low BP
Gives prbc
Main need IVF
Repeat BMP in the evening
Check RBUS
Check Urine studies such as Tabatha/UCr/UProtein
Original Note:
Update Note
Progress Note Update
S/p left foot debridement postop day one of the metatarsal, heel, pod #1.
Wound VAC per Pod
Nonweightbearing right lower extremity
Offloading
Blood cultures and intraoperative cultures
Continue antibiotics per infectious disease podiatry
Plan to return to the OR for possible debridement versus closure pending cultures and clinical evaluation per podiatry
Acute blood loss anemia requiring blood transfusion related to operative debridement of left foot and associated with aspirin Plavix for CAD history.
Repeat CBC after second unit of PRBC completed
Maintain Hgb >7
Diarrhea, improving on Imodium
Cdif Ag +, toxin neg
[2025-03-26 12:38] LABS: Hematocrit 21.6 % (39.0-52.0); Hemoglobin 6.9 g/dL (13.0-18.0)
[2025-03-26 12:41] LABS: Blood Urea Nitrogen 43 mg/dl (9-20); Calcium 7.5 mg/dl (8.4-10.2); Carbon Dioxide 25 mmol/L (22-30); Chloride 101 mmol/L (98-107); Estimated Creatinine Clearance 48 ml/min; Glucose 312 mg/dl (70-99); Potassium 4.0 mmol/L (3.5-5.1); Sodium 135 mmol/L (135-145); eGFR 30.37
[2025-03-26] MEDS: BENADRYL 25 MG IV ×3 (13:26→23:03)
--- NOTE | 2025-03-26 13:34 | W.PN.ID1 ---
Date of Service
Date of Service: March 26, 2025
Today's Communication
continue daptomycin
Assessment / Plan
# Left foot TMA site wound dehiscence with bleeding due to trauma
# Recent 03/08 s/p L TMA (surgical cure), heel debridement, and calcaneus biopsy (negative osteo)
# AMBER
# Allergies: PCN, cephalosporin, meropenem; tolerated Avyzaz
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
# Incarcerated
- taken OR 03/25/25; wound vac placed
- follow up AMBER - possibly related to hypotension
- check urine for eosinophils
- rash is macular, flat, pruritic, not hives, may be related to vancomycin which is still in his system at this time
- Wound swab cx Enterococcus (VRE); sensitive to dapto.
- c/w daptomycin. Hold statin.
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
Diabetes mellitus
CAD status post PCI
CHF
hx CKD3
Hypertension
Guillain-Potts� syndrome/CIDP, plasma exchange q 2 months
PAD status post right BKA
Left hallux and second toe osteomyelitis status post amputation and debridement of left heel ulcer January 21, 2025
Left foot TMA, I+D left heel wound and bone biopsy of heel Mar 08, 2025
Chief Complaint
-: Other (Foot wound)
Subjective / Review of Systems
afebrile
bp stable
reported a rash of the palmar aspect, he hasnt yet received a dose of daptomycin, suspect rash may relate to recent vancomycin
Vital Signs / Physical Exam
Vital Signs
Vital Signs
Temp Pulse Resp BP Pulse Ox
98.1 F 81 18 99/46 100
03/26/25 13:15 03/26/25 13:15 03/26/25 13:15 03/26/25 13:15 03/26/25 11:15
Physical Exam
Constitutional: No Acute Distress
Cardiovascular: Regular Rate and S1/S2; Negative Murmur or Rub
Pulmonary: Clear and Symmetric; Negative Wheezes or Rales
Gastrointestinal: Soft, Non Tender, Non Distended and Normal Bowel Sounds
Skin: Warm and Dry; Negative Rash or Jaundice
Objective Data
Lab Data
Lab Results
03/26/25 12:13
03/26/25 12:13
Estimated Creat Clear 48 ml/min 03/26/25 12:13
Lactic Acid 0.8 mmol/L (0.7-2.0) 03/25/25 01:16
Total Bilirubin 0.3 mg/dl (0.2-1.3) 03/26/25 10:47
AST 12 U/L (17-59) L 03/26/25 10:47
ALT < 10 U/L (0-50) 03/26/25 10:47
Alkaline Phosphatase 52 U/L (38-126) 03/26/25 10:47
Most recent labs reviewed.
Micro Results:
03/25/25 16:56 Anaerobic Culture - Preliminary
Foot - Left Culture pending. Anaerobic cultures are examined after 3
days incubation. Additional information to follow.
03/25/25 16:56 Wound Culture - Preliminary
Foot - Left Gram Stain - Preliminary
03/25/25 16:52 Anaerobic Culture - Preliminary
Foot - Left Culture pending. Anaerobic cultures are examined after 3
days incubation. Additional information to follow.
03/25/25 16:52 Wound Culture - Preliminary
Foot - Left Gram Stain - Preliminary
03/25/25 09:33 Blood Culture - Preliminary
Blood/Venous No Growth in 24 hours- Final report to follow
03/24/25 12:51 Salmonella/Shigella Culture - Final
Feces/Stool No Salmonella, Shigella, Aeromonas or Plesiomonas species
isolated.
Campylobacter Culture - Final
No Campylobacter species isolated.
Shiga Toxin Test - Pending
03/25/25 01:16 Blood Culture - Preliminary
Blood/Venous No Growth in 24 hours- Final report to follow
03/21/25 21:00 Blood Culture - Preliminary
Blood/Venous No Growth in 4 days- Final report to follow
03/21/25 21:00 Blood Culture - Preliminary
Blood/Venous No Growth in 4 days- Final report to follow
03/25/25 16:52 Fungal Culture - Preliminary
Foot - Left Culture in progress.
Positive cultures are reported as soon as detected.
Final report to follow in four to five weeks.
03/21/25 21:16 Wound Culture - Final
Foot - Left Enterococcus faecalis - VRE
Anna albicans
Gram Stain - Final
03/24/25 12:53 C. difficile GDH Antigen & Toxins - Final
Feces/Stool C. difficile antigen positive, toxin negative.
Clostridium difficile present, but toxin not detected.
Patient may be a carrier, colonized with nontoxinogenic
strain or the level of toxin in sample is below detection
limits. This information should be used in conjunction with
the patient's clinical history.
03/22/25 13:07 MRSA Screen - Final
Nose No Methicillin Resistant Staphylococcus aureus isolated.
--- NOTE | 2025-03-26 15:08 | W.PN.HOSP.TC ---
Addendum entered and electronically signed by Calderon Salcido MD 03/26/25 17:31:
see update note
Original Note:
Today's Communication/Plan
-
Transfuse PRBC 2 units
Assessment / Plan
Assessment / Plan
Assessment:
29-year-old with a past medical history significant for diabetes mellitus type 1, ASCVD and multiple lower extremity amputations presented to the [facility] ED complaining of left foot pain, swelling and bleeding. He had recently been admitted to
the hospital from 03/05 to 03/18 for osteomyelitis of the left foot. He had undergone amputation of the first 2 digits of the left foot on 01/21/2025. He returned for further hospitalization requiring TMA and heel debridement on 03/08/25 and
completed his in patient course of antibiotics on 03/16. As per the patient, he had banged his foot while leaving the hospital which has continued to cause and worsening bleeding/oozing from the left foot. Patient was admitted to the hospital for
podiatry evaluation regarding any wound concerns however his wound did not show any significant erythema, bleeding or discharge. Does not have any fever or chills, but reported some chest pain with negative workup.
Plan:
Left foot TMA site with wound dehiscence:
Acute bleed: from site of L TMA and Heel Debridement (03/25) overnight. H&H 5.7/17.7. 2 units PRBC was ordered. Hgb 6.9 after 1 unit transfused, give second bag. Recheck CBC
Acute blood Loss Anemia secondary to the above:
Chronic Anemia / Iron Deficiency:
- Vascular ultrasound showed no significant arterial stenosis on the left however Doppler waveforms suggest disease within the distal SFA/popliteal artery and infrapopliteal disease may also be present as per arterial studies. Multiple lymph nodes
were also seen in the left thigh which may be reactive.
- Status postdebridement yesterday. Appreciate podiatry, likely plan for closure soon
- No antibiotic treatment for now, no evidence of any infectious process
- Iron supplementation continue
- Pain control with as needed Dilaudid/Tylenol. Discontinue Dilaudid after today
- ID consulted, input appreciated. Vancomycin was started yesterday following their discussion with podiatry, patient had an adverse allergic reaction to vancomycin which was discontinued
Itchy rash:
- Patchy itchy rash noted over the past few days. Does not appear to be hives. Likely from earlier reaction vancomycin
- As needed diphenhydramine
# History of ASCVD
# Chest Pain
- EKG/troponin negative for any acute process
- Chest pain is chronic. Not above baseline. Most likely musculoskeletal
- Less concern for anything like pulmonary embolism as lungs clear, adequate saturation, normal resp rate
- Continue ASA
- Continue statin
- Continue Ranolazine
- Continue Carvedilol
# DM-I with Hyperglycemia and neuropathy
- A1C = 8.1% in January.
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
- Patient back to his home dose of 30 units of glargine twice daily alongside low-dose insulin sliding scale
- Bladder scan, straight cath as necessary, may need Castillo catheter
- Continue gabapentin, continue duloxetine
# CKD IIIa
- Creatinine around his normal baseline, 1.2
- Continue monitoring BMP
#GERD
- Continue Pantoprazole
# CIDP
- Continue current meds, will need to arrange for PLEX in outpatient setting once discharged
DVT Prophylaxis: Lovenox
Code Status: Full
Anticipated Discharge: > 48 hours
Subjective/Interval History
-
Date of Service: March 26, 2025
Overnight, wound vac dressing malfunction overnight with significant bleeding from site. H&H 5.7/17.7. 2 units PRBC was ordered. 1 unit PRBC was given
Pt reports pain in leg and itchy rash
Objective Data
-
Labs:
Laboratory Results
03/26/25 03/26/25 03/26/25
04:53 10:47 12:13
WBC Cancelled
Hgb 5.7 L* D Cancelled 6.9 L* D
Hct 17.7 L* Cancelled 21.6 L
Plt Count Cancelled
Sodium 134 L 135
Potassium 4.2 4.0
Chloride 102 101
Carbon Dioxide 25 25
BUN 45 H 43 H
Creatinine 2.5 H 2.8 H
Glucose 313 H 312 H
Calcium 7.7 L 7.5 L
Total Bilirubin 0.3
AST 12 L
ALT < 10
Alkaline Phosphatase 52
Vital Signs:
Vital Signs
Temp Pulse Resp BP Pulse Ox
97.8 F 86 18 101/51 100
03/26/25 13:35 03/26/25 13:35 03/26/25 13:35 03/26/25 13:35 03/26/25 11:15
I&O
03/25/25 03/26/25 03/27/25
06:59 06:59 06:59
Intake Total 1100 / 1100 1460 / 1460 250 / 250
Output Total 4000 / 4000 600 / 600
Balance -2900 / -2900 860 / 860 250 / 250
Review of Systems
-
History Source: Patient
Respiratory: Reports Other (denies new SOB)
Cardiac: Reports Other (denies new chest pain or paplpitations)
Abdomen/GI: Reports Diarrhea; Denies Abdominal Pain, Nausea, Vomiting or Bloody Stools
Genitourinary: Denies Dysuria or Difficulty Voiding
Musculoskeletal: Reports Other (left foot pain )
Skin: Reports Itching and Rash
Physical Exam
-
General: Well Developed, Well Nourished, No Apparent Distress and Comfortable
HEENT: Normocephalic, Atraumatic and Moist Mucous Membranes
Respiratory: Clear to Auscultation and Non Labored Respirations; Negative Wheezes, Rales, Rhonchi or Crackles
Cardiac: Regular Rhythm, S1/S2 and Irregular Rhythm
GI: Soft, Nontender, Nondistended and Normal Bowel Sounds
Musculoskeletal: No Clubbing, No Cyanosis and Other (left foot in compression dressing, intact. Tender)
Skin: Warm, Dry and Rash (Scattered patchy rash across buttock, legs, hands)
Neuro: Awake, Alert and Oriented
Psych: Calm
[2025-03-26] MEDS: CUBICIN 16 MG IV (15:16)
[2025-03-26 16:34] LABS: Glucose - Point of Care 357 mg/dl (70-99)
[2025-03-26] MEDS: LOVENOX 40 MG SC (17:05)
[2025-03-26] MEDS: NOVOLOG FLEXPEN-LOW RESISTANCE 5 UNITS SC (17:06)
[2025-03-26 19:50] LABS: Hematocrit 23.4 % (39.0-52.0); Hemoglobin 7.9 g/dL (13.0-18.0); Mean Corp Hgb Conc. 33.8 g/dL (33.0-37.0); Mean Corpuscular Volume 86.7 fL (80.0-94.0); Platelet Count 396 10^3/uL (130-400); Red Cell Dist. Width 14.9 % (11.5-14.5)
[2025-03-26 19:57] LABS: Body Fluid for Eosinophils No Eosinophils seen
[2025-03-26 19:58] LABS: Blood Urea Nitrogen 49 mg/dl (9-20); Calcium 7.5 mg/dl (8.4-10.2); Carbon Dioxide 24 mmol/L (22-30); Chloride 100 mmol/L (98-107); Estimated Creatinine Clearance 47 ml/min; Glucose 364 mg/dl (70-99); Potassium 4.4 mmol/L (3.5-5.1); Sodium 132 mmol/L (135-145); eGFR 29.12
[2025-03-26 21:25] LABS: Glucose - Point of Care 412 mg/dl (70-99)
--- NOTE | 2025-03-26 21:25 | PTCARENOTE ---
Pt's blood sugar was high on glucometer, stat lab noted 404, notified DONTE Núñez, ordered Novalog 10 units to be given.
[2025-03-26] MEDS: COREG 25 MG PO (21:54)
[2025-03-26] MEDS: REMERON 30 MG PO (21:54)
[2025-03-26 22:53] LABS: Glucose 404 mg/dl (70-99)
[2025-03-26] MEDS: FLUSH (NSS) 1 FLUSH IV (22:59)
[2025-03-27 03:20] VITALS: BP 119/65
[2025-03-27] MEDS: DILAUDID 0.25 MG IV ×4 (04:03→21:16)
[2025-03-27] MEDS: FLUSH (NSS) 1 FLUSH IV (04:04)
[2025-03-27 05:59] VITALS: BMI 31.2
[2025-03-27 07:33] LABS: Glucose - Point of Care 327 mg/dl (70-99)
[2025-03-27 08:00] VITALS: BP 138/82
--- NOTE | 2025-03-27 08:13 | OR.RPT ---
Operative Report
Operative Report
Operative Report
Patient: Sang Anderson

Date of Surgery: 03/25/2025
Surgeon: Sander Montez DPM
Assistants: Sander Long DPM
Anesthesia: General anesthesia
Preoperative Diagnosis:
Left transmetatarsal amputation site wound dehiscence with infection
Left heel diabetic wound down to muscle player
Postoperative Diagnosis:
Same as preoperative
Procedure:
Debridement of infected left transmetatarsal amputation site including removal of nonviable bone CPT 19138 Modifier-79
Excisional debridement of left heel wound down to subcutaneous tissue CPT 73899 Modifier-79
Hemostasis: Anatomic dissection
Estimated Blood Loss: <50 mL
Specimens:
Intraoperative wound culture (pre-pulse lavage)
Intraoperative wound culture (post-pulse lavage)
Bone specimen, left 2nd metatarsal, to pathology
Complications: None
Indications for Surgery:
The patient is a 29-year-old male with a history of left transmetatarsal amputation and concomitant heel debridement performed on 03/08/2025. He was discharged but subsequently re-presented to [facility] with wound dehiscence and clinical
signs of infection at the transmetatarsal amputation site. He was started on intravenous antibiotics. Given the extent of soft tissue compromise and concern for ongoing deep infection with possible osteomyelitis, surgical exploration, incision and
drainage, and debridement including bone removal were indicated. The risks, benefits, and alternatives were discussed with the patient, and informed consent was obtained.
Procedure in Detail:
The patient was brought to the operating room and placed supine on the operating table. General anesthesia was induced. The left foot was prepped and draped in the usual sterile manner. A surgical timeout was performed.
Attention was directed to the left transmetatarsal amputation site. A full thickness surgical dehiscence was noted with necrosis noted to the plantar skin flap. Multiplane fascial exploration was carried out through the wound dehiscence. Dissection
was carried through skin, subcutaneous tissue, and down to fascial layers. Extensive necrotic and nonviable soft tissue was identified and excised. No gurinder purulent drainage was encountered.
A culture was taken of the wound bed prior to irrigation. All nonviable bone was then identified and removed using a sagittal saw, including a segment of the 2nd metatarsal, which was sent to pathology for evaluation. Residual bone appeared firm and
viable following debridement. Following bone and soft tissue debridement, the wound was irrigated with copious pulsatile lavage. A second culture was obtained post-lavage to assess for residual contamination.
The wound was inspected thoroughly, and no further necrotic or infected tissue remained. Hemostasis was achieved with electrocautery. The wound was left open and a wound VAC was applied and secured with tegaderm. An excellent seal was noted and
wound VAC was functioning at 125mmHg.
Attention was then directed to the left heel wound. The wound was sharply debrided using a #15 blade and curette down to subcutaneous tissue. Devitalized skin and soft tissue were removed. No evidence of active infection was present in the heel
wound. Irrigation with sterile saline was performed, and a sterile dressing was applied.
The patient tolerated the procedure well and was transported to recovery in stable condition. He will continue to receive antibiotics per ID recommendations. We will follow his cultures and pathology results. Will continue with local wound care and
monitor his wound. Will require rigid blood sugar control and wound to be free from infection and necrosis prior to delayed primary closure.
[2025-03-27 08:55] LABS: Hematocrit 22.5 % (39.0-52.0); Hemoglobin 7.4 g/dL (13.0-18.0); Mean Corp Hgb Conc. 32.9 g/dL (33.0-37.0); Mean Corpuscular Volume 86.2 fL (80.0-94.0); Platelet Count 382 10^3/uL (130-400); Red Cell Dist. Width 14.9 % (11.5-14.5)
[2025-03-27] MEDS: LANTUS 0.3 UNITS SC ×2 (09:03→16:53)
[2025-03-27] MEDS: NOVOLOG FLEXPEN-LOW RESISTANCE 4 UNITS SC (09:04)
[2025-03-27] MEDS: NOVOLOG FLEXPEN 10 UNITS SC ×3 (09:04→16:54)
[2025-03-27] MEDS: PROTONIX 40 MG PO (09:05)
[2025-03-27] MEDS: ASPIR LOW (ENTERIC COATED) 81 MG PO (09:05)
[2025-03-27] MEDS: NEURONTIN 300 MG PO ×3 (09:05→21:14)
[2025-03-27] MEDS: FEOSOL 325 MG PO ×2 (09:06→19:42)
[2025-03-27] MEDS: IMDUR (EXTENDED RELEASE) 60 MG PO (09:06)
[2025-03-27] MEDS: PLAVIX 75 MG PO (09:06)
[2025-03-27] MEDS: COLACE 100 MG PO ×2 (09:06→19:42)
[2025-03-27] MEDS: CYMBALTA DELAYED RELEASE 30 MG PO (09:06)
[2025-03-27] MEDS: DEMADEX 40 MG PO (09:06)
[2025-03-27] MEDS: RANEXA EXTENDED RELEASE 1000 MG PO ×2 (09:06→19:43)
[2025-03-27] MEDS: COREG 25 MG PO ×2 (09:07→19:54)
[2025-03-27 09:23] LABS: Blood Urea Nitrogen 49 mg/dl (9-20); Calcium 7.6 mg/dl (8.4-10.2); Carbon Dioxide 26 mmol/L (22-30); Chloride 103 mmol/L (98-107); Estimated Creatinine Clearance 62 ml/min; Glucose 298 mg/dl (70-99); Sodium 135 mmol/L (135-145); eGFR 40.56
[2025-03-27 09:30] LABS: Potassium 4.1 mmol/L (3.5-5.1)
[2025-03-27 10:56] LABS: Urine Character Clear (Clear)
--- NOTE | 2025-03-27 11:04 | W.PN.UPDATE ---
Update Note
Progress Note Update
S/p left foot debridement postop day one of the metatarsal, heel, pod #1.
Wound VAC per Pod
Nonweightbearing right lower extremity
Offloading
Blood cultures and intraoperative cultures
Continue antibiotics per infectious disease podiatry
Plan to return to the OR for possible debridement versus closure pending cultures and clinical evaluation per podiatry
Acute blood loss anemia requiring blood transfusion related to operative debridement of left foot and associated with aspirin Plavix for CAD history.
Repeat CBC after second unit of PRBC completed
Maintain Hgb >7
Diarrhea, improving on Imodium
Cdif Ag +, toxin neg
AMBER
Cr remains high, though improving
Likely AMBER which is secondary to acute blood loss anemia secondary to podiatry debridement and likely ischemic atn will low BP
Gives prbc
Main need IVF
Repeat BMP in the evening
Check RBUS
Check Urine studies such as Tabatha/UCr/UProtein
[2025-03-27 11:09] LABS: Urine Squamous Cell 0-2 /LPF (Few)
[2025-03-27 11:11] LABS: Urine Red Blood Cell 0-2 /HPF (0-2)
[2025-03-27 12:00] VITALS: BP 140/83
--- NOTE | 2025-03-27 12:01 | W.PN.HOSP.TC ---
Addendum entered and electronically signed by Calderon Salcido MD 03/27/25 12:21:
please see update note
Original Note:
Today's Communication/Plan
-
Continue Daptomycin
elevate left foot, soft padding, offload pressure
Assessment / Plan
Assessment / Plan
Assessment:
29-year-old with a past medical history significant for diabetes mellitus type 1, ASCVD and multiple lower extremity amputations presented to the [place] ED complaining of left foot pain, swelling and bleeding. He had recently been admitted to
the hospital from 03/05 to 03/18 for osteomyelitis of the left foot. He had undergone amputation of the first 2 digits of the left foot on 01/21/2025. He returned for further hospitalization requiring TMA and heel debridement on 03/08/25 and
completed his in patient course of antibiotics on 03/16. As per the patient, he had banged his foot while leaving the hospital which has continued to cause and worsening bleeding/oozing from the left foot. Patient was admitted to the hospital for
podiatry evaluation regarding any wound concerns however his wound did not show any significant erythema, bleeding or discharge. Does not have any fever or chills, but reported some chest pain with negative workup.
Plan:
Left foot TMA site with wound dehiscence:
Acute bleed: from site of L TMA and Heel Debridement (03/25) overnight. Associated with aspirin Plavix for CAD history. Hgb 5.7 on 03/26. 2 units PRBC given. Hemoglobin currently 7.4.
Acute blood Loss Anemia secondary to the above:
Chronic Anemia / Iron Deficiency:
- Vascular ultrasound showed no significant arterial stenosis on the left however Doppler waveforms suggest disease within the distal SFA/popliteal artery and infrapopliteal disease may also be present as per arterial studies. Multiple lymph nodes
were also seen in the left thigh which may be reactive.
- Status postdebridement 03/25. Appreciate podiatry, plan for closure soon
- Continue Daptomycin
- Iron supplementation continue
- Pain control with as needed Dilaudid/Tylenol.
- Appreciate ID
Itchy rash:
- Patchy itchy rash noted over the past few days. Does not appear to be hives. Likely from earlier reaction vancomycin
- As needed diphenhydramine
# History of ASCVD
# Chest Pain
- EKG/troponin negative for any acute process
- Chest pain is chronic. Not above baseline. Most likely musculoskeletal
- Less concern for anything like pulmonary embolism as lungs clear, adequate saturation, normal resp rate
- Continue ASA
- Continue statin
- Continue Ranolazine
- Continue Carvedilol
# DM-I with Hyperglycemia and neuropathy
- A1C = 8.1% in January.
- Diabetes WINDOW AIR CONDITIONER INSTALLER consulted, input appreciated
- Patient back to his home dose of 30 units of glargine twice daily alongside low-dose insulin sliding scale
- Pt self caths, may need Castillo catheter
- Continue gabapentin, continue duloxetine
# AMBER on CKD IIIa
- Creatinine baseline, 1.2. increased to 2.9. now downtrending, 2.2
- Likely prerenal from hypovolemic state
- Check urine studies
- Continue monitoring BMP
#GERD
- Continue Pantoprazole
# CIDP
- Continue current meds, will need to arrange for PLEX in outpatient setting once discharged
DVT Prophylaxis: Lovenox
Code Status: Full
Anticipated Discharge: > 48 hours
Subjective/Interval History
-
Date of Service: March 27, 2025
NovoLog given overnight for hyperglycemia, treated with NovoLog 10 units
Objective Data
-
Labs:
Laboratory Results
03/27/25
07:59
WBC 9.1
Hgb 7.4 L
Hct 22.5 L
Plt Count 382
Sodium 135
Potassium 4.1
Chloride 103
Carbon Dioxide 26
BUN 49 H
Creatinine 2.2 H
Glucose 298 H
Calcium 7.6 L
Vital Signs:
Vital Signs
Temp Pulse Resp BP Pulse Ox
97.7 F 82 16 138/82 100
03/27/25 08:00 03/27/25 09:07 03/27/25 08:00 03/27/25 09:07 03/27/25 08:00
I&O
03/26/25 03/27/25 03/28/25
06:59 06:59 06:59
Intake Total 1460 / 1460 1700 / 1700
Output Total 600 / 600 450 / 450
Balance 860 / 860 1250 / 1250
Review of Systems
-
History Source: Patient
Constitutional: Denies Fever
Respiratory: Denies Trouble Breathing
Cardiac: Denies Chest Pain
Abdomen/GI: Denies Abdominal Pain, Nausea or Vomiting
Genitourinary: Reports Difficulty Voiding (Self caths)
Musculoskeletal: Reports Other (Left foot pain)
Skin: Reports Itching and Rash
Physical Exam
-
General: Well Developed, Well Nourished and No Apparent Distress
HEENT: Normocephalic and Atraumatic
Respiratory: Clear to Auscultation and Non Labored Respirations; Negative Wheezes, Rales, Rhonchi or Crackles
Cardiac: Regular Rhythm and S1/S2; Negative Murmur or Rub
GI: Soft, Nontender, Nondistended and Normal Bowel Sounds
Musculoskeletal: No Clubbing, No Cyanosis and No Edema
Skin: Rash
Neuro: Awake, Alert and Oriented
Psych: Calm
[2025-03-27] MEDS: TYLENOL 650 MG PO ×2 (12:54→19:54)
[2025-03-27 12:55] LABS: Glucose - Point of Care 239 mg/dl (70-99)
[2025-03-27] MEDS: NOVOLOG FLEXPEN-LOW RESISTANCE 2 UNITS SC (12:56)
[2025-03-27] MEDS: CUBICIN 16 MG IV (14:40)
[2025-03-27 16:00] VITALS: BP 106/62
[2025-03-27 16:52] LABS: Glucose - Point of Care 165 mg/dl (70-99)
[2025-03-27] MEDS: NOVOLOG FLEXPEN-LOW RESISTANCE 1 UNITS SC (16:54)
[2025-03-27] MEDS: LOVENOX 40 MG SC (17:21)
[2025-03-27] MEDS: BENADRYL 25 MG IV (19:44)
[2025-03-27 19:58] VITALS: BP 116/67
[2025-03-27] MEDS: REMERON 30 MG PO (21:14)
[2025-03-27 21:45] LABS: Glucose - Point of Care 248 mg/dl (70-99)
[2025-03-27 23:32] VITALS: BP 112/59
[2025-03-28] VITALS (10 sets, daily range): BP systolic 111–137; BP diastolic 60–82; BMI 32.1
[2025-03-28] MEDS: DILAUDID 0.25 MG IV ×4 (03:46→22:28)
[2025-03-28] MEDS: BENADRYL 25 MG IV ×3 (03:47→20:07)
[2025-03-28 06:44] LABS: Hematocrit 21.8 % (39.0-52.0); Hemoglobin 7.2 g/dL (13.0-18.0); Mean Corp Hgb Conc. 33.0 g/dL (33.0-37.0); Mean Corpuscular Volume 89.3 fL (80.0-94.0); Platelet Count 375 10^3/uL (130-400); Red Cell Dist. Width 15.0 % (11.5-14.5)
[2025-03-28 07:04] LABS: Blood Urea Nitrogen 49 mg/dl (9-20); Calcium 8.2 mg/dl (8.4-10.2); Carbon Dioxide 26 mmol/L (22-30); Chloride 106 mmol/L (98-107); Estimated Creatinine Clearance 86 ml/min; Glucose 200 mg/dl (70-99); Potassium 4.5 mmol/L (3.5-5.1); Sodium 139 mmol/L (135-145); eGFR 59.44
[2025-03-28 07:57] LABS: Glucose - Point of Care 210 mg/dl (70-99)
[2025-03-28] MEDS: NOVOLOG FLEXPEN 10 UNITS SC (08:06)
[2025-03-28] MEDS: IMDUR (EXTENDED RELEASE) 60 MG PO (08:07)
[2025-03-28] MEDS: NOVOLOG FLEXPEN-LOW RESISTANCE 2 UNITS SC (08:07)
[2025-03-28] MEDS: LANTUS 0.3 UNITS SC (08:07)
[2025-03-28] MEDS: NEURONTIN 300 MG PO ×3 (08:07→22:16)
[2025-03-28] MEDS: DEMADEX 40 MG PO (08:08)
[2025-03-28] MEDS: RANEXA EXTENDED RELEASE 1000 MG PO ×2 (08:08→20:07)
[2025-03-28] MEDS: ASPIR LOW (ENTERIC COATED) 81 MG PO (08:09)
[2025-03-28] MEDS: COLACE 100 MG PO (08:09)
[2025-03-28] MEDS: PLAVIX 75 MG PO (08:09)
[2025-03-28] MEDS: COREG 25 MG PO ×2 (08:09→20:07)
[2025-03-28] MEDS: PROTONIX 40 MG PO (08:09)
[2025-03-28] MEDS: CYMBALTA DELAYED RELEASE 30 MG PO (08:09)
[2025-03-28] MEDS: FEOSOL 325 MG PO ×2 (08:09→22:15)
--- NOTE | 2025-03-28 08:16 | PN.DE.MGMTRT ---
Insulin Management
- -
03/28/2025: Diabetes Management Follow up
Patient admitted from [facility] 03/21 with c/o bleeding L heel wound. PMH type 1 diabetes, R BKA, L toe amputation, recent debridement L heel, Guillian Brooks, CHF, HTN, CKD, [place], recent admission 01/21 and 03/05 s/p
transmetatarsal L amputation and debridement. Prior to admission was receiving Lantus 30 units BID with Humalog insulin ss AC. A1C on admission 6.9%, Cr 1.2, eGFR > 60 (improved from 8.1%).
Prior to incarceration was living in a shelter per patient he will return there.
Patient is awake, alert and oriented, resting in bed, offers no complaints, able to discuss diabetes care plan at length.
HS Glucose was 248, received Lantus 30 units, fasting glucose today 200 V, 210 POC. Will increase BID Lantus to 34 units.
Premeal glucose yesterday was 165 to 327, received 1 to 4 units of corrective insulin with meals
Will increase AC NovoLog to 12 units. Cont low corrective with meals.
Will assess glucose trend for need to further adjust insulin today.
Pt asking for Glucerna supplements for added protein intake to promote wound healing, Will ask Dietitian to review.
Discussed with nurse. Will cont to follow.
Diabetes History
- -
Type of Diabetes: 1
Pre-Admission Diabetes Regimen
03/27/25 03/28/25
07:59 06:25
Creatinine 2.2 H 1.6 H
Lab Results
Hemoglobin A1c 6.9 % (4.0-5.6) H 03/22/25 06:24
Insulin Pump Settings
IP Diabetes Regimen
03/27/25 03/27/25 03/27/25
07:59 12:54 16:51
Glucose 298 H
POC Glucose 239 H 165 H
03/27/25 03/28/25 03/28/25
21:44 06:25 07:43
Glucose 200 H
POC Glucose 248 H 210 H
Meal type: Dinner
Meal type: Breakfast
Meal type: Lunch
Amount consumed: 100%
Amount consumed: 100%
Amount consumed: 100%
Patient Education
--- NOTE | 2025-03-28 08:23 | W.PN.HOSP.TC ---
Today's Communication/Plan
-
Awaiting podiatry recommendations, possible wound VAC today
Transfusion 1 unit of blood most likely today
Continue monitoring for any worsening symptoms
Wound care as needed
Assessment / Plan
Assessment / Plan
Assessment:
29-year-old with a past medical history significant for diabetes mellitus type 1, ASCVD and multiple lower extremity amputations presented to the [place] ED complaining of left foot pain, swelling and bleeding. He had recently been admitted to
the [facility] from 03/05 to 03/18 for osteomyelitis of the left foot. He had undergone amputation of the first 2 digits of the left foot on 01/21/2025. He returned for further hospitalization requiring TMA and heel debridement on 03/08/25 and
completed his in patient course of antibiotics on 03/16. As per the patient, he had banged his foot while leaving the hospital which has continued to cause and worsening bleeding/oozing from the left foot. Patient was admitted to the hospital for
podiatry evaluation regarding any wound concerns however his wound did not show any significant erythema, bleeding or discharge. Does not have any fever or chills, but reported some chest pain with negative workup. Patient is currently postop
day#3 following left foot debridement of metatarsal and heel.
Plan:
#Left foot TMA site with wound dehiscence:
#Acute bleed: from site of L TMA and Heel Debridement (03/25) overnight. Associated with aspirin Plavix for CAD history. Hgb 5.7 on 03/26. 2 units PRBC given.
#Acute blood Loss Anemia secondary to the above:
#Chronic Anemia / Iron Deficiency:
- Vascular ultrasound showed no significant arterial stenosis on the left however Doppler waveforms suggest disease within the distal SFA/popliteal artery and infrapopliteal disease may also be present as per arterial studies. Multiple lymph nodes
were also seen in the left thigh which may be reactive.
- Status postdebridement 03/25. Appreciate podiatry, plan for closure probably today
- Wound cultures grew MRSA, VRE
- Appreciate ID
- Continue Daptomycin
- Iron supplementation continue
- Pain control with as needed Dilaudid/Tylenol
- Hemoglobin dropped to 7.2, most likely will require another unit of blood today
#Itchy rash:
- Patchy itchy rash noted over the past few days. Does not appear to be hives. Likely from earlier reaction vancomycin
- As needed diphenhydramine
# History of ASCVD
# Chest Pain
- EKG/troponin negative for any acute process
- Chest pain is chronic. Not above baseline. Most likely musculoskeletal
- Less concern for anything like pulmonary embolism as lungs clear, adequate saturation, normal resp rate
- Continue ASA
- Continue statin
- Continue Ranolazine
- Continue Carvedilol
# DM-I with Hyperglycemia and neuropathy
- A1C = 8.1% in January.
- Diabetes DIRECTOR ADVERTISING consulted, input appreciated
- Patient back to his home dose of 30 units of glargine twice daily alongside low-dose insulin sliding scale
- Pt self caths, may need Castillo catheter
- Continue gabapentin, continue duloxetine
# AMBER on CKD IIIa
- Creatinine baseline, 1.2. increased to 2.9. now downtrending, 1.6
- Urine studies show pre-renal cause, likely from hypovolemic state
- Continue monitoring BMP
#GERD
- Continue Pantoprazole
# CIDP
- Continue current meds, will need to arrange for PLEX in outpatient setting once discharged
DVT Prophylaxis: Lovenox
Code Status: Full
Anticipated Discharge: 24 - 48 hours
Subjective/Interval History
-
Date of Service: March 28, 2025
Patient seen today, resting comfortably in his bed. Dressing was intact, not bleeding at the time however patient says that it had been bleeding profusely over the weekend. Does not report any shortness of breath, dizziness, fatigue at this time.
Continued lower extremity pain in the left foot.
Objective Data
-
Labs:
Laboratory Results
03/28/25
06:25
WBC 9.9
Hgb 7.2 L
Hct 21.8 L
Plt Count 375
Sodium 139
Potassium 4.5
Chloride 106
Carbon Dioxide 26
BUN 49 H
Creatinine 1.6 H
Glucose 200 H
Calcium 8.2 L
Vital Signs:
Vital Signs
Temp Pulse Resp BP Pulse Ox
97.7 F 85 16 137/82 96
03/28/25 07:47 03/28/25 08:08 03/28/25 07:47 03/28/25 08:08 03/28/25 07:47
I&O
03/27/25 03/28/25 03/29/25
06:59 06:59 06:59
Intake Total 1700 / 1700 1406 / 1406
Output Total 450 / 450 3775 / 3775
Balance 1250 / 1250 -2369 / -2369
Review of Systems
-
History Source: Patient
Constitutional: Reports No Symptoms
EENT: Reports No Symptoms Reported
Respiratory: Reports No Symptoms
Cardiac: Reports No Symptoms
Abdomen/GI: Reports No Symptoms
Genitourinary: Reports Difficulty Voiding (Self caths)
Musculoskeletal: Reports Joint Pain (Left lower extremity pain)
Skin: Reports No Symptoms
Neuro: Reports No Symptoms
Endocrine: Reports No Symptoms
Hematologic / Lymphatic: Reports No Symptoms
Allergy / Immunology: Reports No Symptoms
Physical Exam
-
General: Well Developed, Well Nourished, Conversant and Obese
HEENT: Normocephalic and Atraumatic
Respiratory: Clear to Auscultation and Non Labored Respirations; Negative Wheezes, Rales or Rhonchi
Cardiac: Regular Rhythm and S1/S2; Negative Murmur
GI: Soft, Nontender, Nondistended and Normal Bowel Sounds
Musculoskeletal: Other (R BKA; left hallux and second toe amputation; left foot wrapped in dressing)
Skin: Warm and Dry; Negative Rash
Neuro: Awake and AO x 3
Psych: Calm
Data Reviewed
-
Labs: Labs Reviewed by me, Discussed with Physician, Discussed with Nurse and Discussed with Patient
--- NOTE | 2025-03-28 10:57 | CM ---
Chart reviewed. Care ongoing.
Currently postop day#3 following left foot debridement of metatarsal and heel.
Poss wound VAC today, awaiting podiatry
Possible transfusion today
[facility]
--- NOTE | 2025-03-28 11:04 | W.PN.ID1 ---
Date of Service
Date of Service: March 28, 2025
Today's Communication
Continue daptomycin.
Assessment / Plan
# Pruritic rash due to Vancomycin
# Left foot TMA site wound dehiscence
# Recent 03/08 s/p L TMA (surgical cure), heel debridement, and calcaneus biopsy (negative osteo)
# AMBER improving
# Allergies: PCN, cephalosporin, meropenem, Vancomycin; tolerated Avyzaz
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
# Incarcerated
- taken OR 03/25/25 s/p I+D, removal of necrotic bone at amp site, I+D heel wound to subcutaneous tisse; wound vac placed
- OR cx Enterococcus (VRE) and MRSA.
- Path pending
- Continue daptomycin. Hold statin.
- Check CK
- Await path to determine length of abx course.
-Continue contact isolation
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
Diabetes mellitus
CAD status post PCI
CHF
hx CKD3
Hypertension
Guillain-Potts� syndrome/CIDP, plasma exchange q 2 months
PAD status post right BKA
Left hallux and second toe osteomyelitis status post amputation and debridement of left heel ulcer January 21, 2025
Left foot TMA, I+D left heel wound and bone biopsy of heel Mar 08, 2025
Chief Complaint
-: Other (Foot wound)
Subjective / Review of Systems
Rash and itching stable, not worse. + diarrhea.
Vital Signs / Physical Exam
Vital Signs
Vital Signs
Temp Pulse Resp BP Pulse Ox
97.7 F 85 16 137/82 96
03/28/25 07:47 03/28/25 08:08 03/28/25 07:47 03/28/25 08:08 03/28/25 07:47
Physical Exam
Constitutional: No Acute Distress and Comfortable
Cardiovascular: Regular Rate and S1/S2
Pulmonary: Clear
Gastrointestinal: Soft, Non Tender and Non Distended
Skin: Rash (Scattered macules )
Wound: Other (left foot dressing dry. )
Neurological: AO x 3
Objective Data
Lab Data
Lab Results
03/28/25 06:25
03/28/25 06:25
Estimated Creat Clear 86 ml/min 03/28/25 06:25
Lactic Acid 0.8 mmol/L (0.7-2.0) 03/25/25 01:16
Total Bilirubin 0.3 mg/dl (0.2-1.3) 03/26/25 10:47
AST 12 U/L (17-59) L 03/26/25 10:47
ALT < 10 U/L (0-50) 03/26/25 10:47
Alkaline Phosphatase 52 U/L (38-126) 03/26/25 10:47
Most recent labs reviewed.
Micro Results:
03/27/25 10:35 Urine Culture - Preliminary
Urine Yeast
03/25/25 09:33 Blood Culture - Preliminary
Blood/Venous No Growth in 72 hours- Final report to follow
03/24/25 12:51 Salmonella/Shigella Culture - Final
Feces/Stool No Salmonella, Shigella, Aeromonas or Plesiomonas species
isolated.
Campylobacter Culture - Final
No Campylobacter species isolated.
Shiga Toxin Test - Final
No E. coli Shiga Toxin 1 or 2 detected.
03/25/25 16:56 Wound Culture - Preliminary
Foot - Left Staph aureus MRSA
Enterococcus faecalis - VRE
Gram Stain - Preliminary
03/25/25 16:52 Wound Culture - Preliminary
Foot - Left Staph aureus MRSA
Enterococcus faecalis - VRE
Gram Stain - Preliminary
03/25/25 01:16 Blood Culture - Preliminary
Blood/Venous No Growth in 72 hours- Final report to follow
03/21/25 21:00 Blood Culture - Final
Blood/Venous No Growth - Final Report
03/21/25 21:00 Blood Culture - Final
Blood/Venous No Growth - Final Report
03/25/25 16:56 Anaerobic Culture - Preliminary
Foot - Left Culture pending. Anaerobic cultures are examined after 3
days incubation. Additional information to follow.
03/25/25 16:52 Anaerobic Culture - Preliminary
Foot - Left Culture pending. Anaerobic cultures are examined after 3
days incubation. Additional information to follow.
03/25/25 16:52 Fungal Culture - Preliminary
Foot - Left Culture in progress.
Positive cultures are reported as soon as detected.
Final report to follow in four to five weeks.
03/21/25 21:16 Wound Culture - Final
Foot - Left Enterococcus faecalis - VRE
Anna albicans
Gram Stain - Final
03/24/25 12:53 C. difficile GDH Antigen & Toxins - Final
Feces/Stool C. difficile antigen positive, toxin negative.
Clostridium difficile present, but toxin not detected.
Patient may be a carrier, colonized with nontoxinogenic
strain or the level of toxin in sample is below detection
limits. This information should be used in conjunction with
the patient's clinical history.
03/22/25 13:07 MRSA Screen - Final
Nose No Methicillin Resistant Staphylococcus aureus isolated.
[2025-03-28 11:28] LABS: Glucose - Point of Care 162 mg/dl (70-99)
[2025-03-28] MEDS: NOVOLOG FLEXPEN 12 UNITS SC ×2 (12:13→17:33)
[2025-03-28] MEDS: NOVOLOG FLEXPEN-LOW RESISTANCE 1 UNITS SC ×2 (12:14→17:33)
--- NOTE | 2025-03-28 13:30 | WOUNDNOTE ---
[facility] RN note: Patient s/p L foot debridement, TMA revision by Dr. Montez on 03/25/25 with wound vac. Patient and RN Edgar report vac did not stay on d/t bleeding (Vac ulta pump serial # [id number] was placed in the OR on Friday03/25/25 and was
removed that day d/t bleeding and switched to Vac Ulta pump serial # [id number] which did not stay on d/t bleeding same day. Notified [employer] re: [employer] portal and put in for rental of 1 day for vac serial #[id number] and metal pickling equipment operator in [employer]
(Allie's desk) and requested a metal pickling equipment operator�of consignment vac [id number] for non use (metal pickling equipment operator in room 426 or 4W soiled utility room). L foot dressing with Hemal D+I. Sacral skin intact. Heel off bed with pillow. Patient has an air chair cushion and turns
self in bed. Instructed patient frequent turning and heel elevation. Podiatry to direct L foot wound care instruction.
[2025-03-28] MEDS: CUBICIN 16 MG IV (15:18)
[2025-03-28 16:57] LABS: Glucose - Point of Care 178 mg/dl (70-99)
[2025-03-28] MEDS: TYLENOL 1000 MG PO (17:31)
[2025-03-28] MEDS: LANTUS 0.34 UNITS SC (17:32)
[2025-03-28] MEDS: LOVENOX 40 MG SC (17:32)
[2025-03-28 21:10] LABS: Glucose - Point of Care 194 mg/dl (70-99)
[2025-03-28] MEDS: REMERON 30 MG PO (22:15)
[2025-03-29] MEDS: TYLENOL 1000 MG PO ×4 (00:05→17:18)
[2025-03-29] MEDS: BENADRYL 25 MG IV ×4 (00:07→22:34)
[2025-03-29 03:33] VITALS: BP 132/79
[2025-03-29 06:00] VITALS: BMI 31.8
[2025-03-29] MEDS: DILAUDID 0.25 MG IV ×3 (06:06→18:13)
[2025-03-29 07:25] VITALS: BP 104/53
--- NOTE | 2025-03-29 07:56 | PN.DE.MGMTRT ---
Insulin Management
- -
03/29/2025: Diabetes Management Follow up
Patient admitted from [facility] 03/21 with c/o bleeding L heel wound. PMH type 1 diabetes, R BKA, L toe amputation, recent debridement L heel, Guillian Cullman, CHF, HTN, CKD, [place], recent admission 01/21 and 03/05 s/p
transmetatarsal L amputation and debridement. Prior to admission was receiving Lantus 30 units BID with Humalog insulin ss AC. A1C on admission 6.9%, Cr 1.2, eGFR > 60 (improved from 8.1%).
Prior to incarceration was living in a halfway per patient he will return there.
Patient is awake, alert and oriented, resting in bed, offers no complaints, able to discuss diabetes care plan at length.
Premeal glucose yesterday was 162 to 210, received 1 to 2 units of corrective insulin with meals
AC NovoLog increased yesterday to 12 units, lantus increased to 34 units BID first dose last evening with low corrective with meals.
Fasting glucose 148. Will make no change to current regimen as glucose improved.
Will assess glucose trend for need to further adjust insulin today.
Discussed with nurse.
Will cont to follow.
Diabetes History
- -
Type of Diabetes: 1
Pre-Admission Diabetes Regimen
Lab Results
Hemoglobin A1c 6.9 % (4.0-5.6) H 03/22/25 06:24
Insulin Pump Settings
IP Diabetes Regimen
03/28/25 03/28/25 03/28/25
07:43 11:24 16:55
POC Glucose 210 H 162 H 178 H
03/28/25
21:09
POC Glucose 194 H
Patient Education
[2025-03-29 08:03] LABS: Glucose - Point of Care 148 mg/dl (70-99)
[2025-03-29] MEDS: NOVOLOG FLEXPEN-LOW RESISTANCE SC ×2 (08:07→11:49)
[2025-03-29] MEDS: LANTUS 0.34 UNITS SC ×2 (08:25→17:16)
[2025-03-29] MEDS: RANEXA EXTENDED RELEASE 1000 MG PO ×2 (08:26→20:49)
[2025-03-29] MEDS: CYMBALTA DELAYED RELEASE 30 MG PO (08:26)
[2025-03-29] MEDS: NOVOLOG FLEXPEN 12 UNITS SC ×3 (08:26→17:17)
[2025-03-29] MEDS: DEMADEX 40 MG PO (08:26)
[2025-03-29] MEDS: NEURONTIN 300 MG PO ×3 (08:26→20:49)
[2025-03-29] MEDS: ASPIR LOW (ENTERIC COATED) 81 MG PO (08:27)
[2025-03-29] MEDS: PLAVIX 75 MG PO (08:27)
[2025-03-29] MEDS: FEOSOL 325 MG PO ×2 (08:27→20:49)
[2025-03-29] MEDS: PROTONIX 40 MG PO (08:27)
[2025-03-29] MEDS: IMDUR (EXTENDED RELEASE) 60 MG PO (08:27)
[2025-03-29] MEDS: COREG 25 MG PO ×2 (08:27→20:54)
[2025-03-29 08:46] LABS: Hematocrit 24.2 % (39.0-52.0); Hemoglobin 8.0 g/dL (13.0-18.0); Mean Corp Hgb Conc. 33.1 g/dL (33.0-37.0); Mean Corpuscular Volume 90.0 fL (80.0-94.0); Nucleated Red Blood Cells % 0 % (-); Platelet Count 397 10^3/uL (130-400); Red Cell Dist. Width 15.9 % (11.5-14.5)
[2025-03-29 09:27] LABS: ALT (SGPT) 11 U/L (0-50); AST (SGOT) 13 U/L (17-59); Albumin 2.9 g/dl (3.5-5.0); Alkaline Phosphatase 71 U/L (38-126); Blood Urea Nitrogen 39 mg/dl (9-20); Calcium 8.0 mg/dl (8.4-10.2); Carbon Dioxide 30 mmol/L (22-30); Chloride 106 mmol/L (98-107); Estimated Creatinine Clearance 98 ml/min; Glucose 148 mg/dl (70-99); Potassium 4.7 mmol/L (3.5-5.1); Sodium 140 mmol/L (135-145); Total Protein 5.9 g/dl (6.3-8.2); eGFR > 60.00
--- NOTE | 2025-03-29 10:02 | W.PN.HOSP.TC ---
Today's Communication/Plan
-
Awaiting plan by podiatry, possible OR today or further in the week
Continue monitoring for any worsening symptoms like any bleeding
Continue antibiotics
Assessment / Plan
Assessment / Plan
Assessment:
29-year-old with a past medical history significant for diabetes mellitus type 1, ASCVD and multiple lower extremity amputations presented to the [facility] ED complaining of left foot pain, swelling and bleeding. He had recently been admitted to
the [facility] from 03/05 to 03/18 for osteomyelitis of the left foot. He had undergone amputation of the first 2 digits of the left foot on 01/21/2025. He returned for further hospitalization requiring TMA and heel debridement on 03/08/25 and
completed his in patient course of antibiotics on 03/16. As per the patient, he had banged his foot while leaving the hospital which has continued to cause and worsening bleeding/oozing from the left foot. Patient was admitted to the hospital for
podiatry evaluation regarding any wound concerns however his wound did not show any significant erythema, bleeding or discharge. Does not have any fever or chills, but reported some chest pain with negative workup. Patient is currently postop
day#4 following left foot debridement of metatarsal and heel.
Plan:
#Left foot TMA site with wound dehiscence:
#Acute bleed: from site of L TMA and Heel Debridement (03/25) overnight. Associated with aspirin Plavix for CAD history. Hgb 5.7 on 03/26. 2 units PRBC given.
#Acute blood Loss Anemia secondary to the above:
#Chronic Anemia / Iron Deficiency:
- Vascular ultrasound showed no significant arterial stenosis on the left however Doppler waveforms suggest disease within the distal SFA/popliteal artery and infrapopliteal disease may also be present as per arterial studies. Multiple lymph nodes
were also seen in the left thigh which may be reactive.
- Status postdebridement 03/25. Appreciate podiatry, plan for closure/further OR today or further week depending on podiatry
- Wound cultures grew MRSA, VRE
- Appreciate ID
- Continue Daptomycin
- Iron supplementation continue
- Pain control with as needed Dilaudid/Tylenol
- Hemoglobin dropped to 7.2 requiring blood transfusion, given 1 unit of blood
- Hemoglobin today was 8.0 much improved from yesterday
- Continue monitoring hemoglobin daily and transfuse as needed
#Itchy rash:
- Resolved for now, continue monitoring for any development of rash
# History of ASCVD
# Chest Pain
- EKG/troponin negative for any acute process
- Chest pain is chronic. Not above baseline. Most likely musculoskeletal
- Less concern for anything like pulmonary embolism as lungs clear, adequate saturation, normal resp rate
- Continue ASA
- Continue statin
- Continue Ranolazine
- Continue Carvedilol
# DM-I with Hyperglycemia and neuropathy
- A1C = 8.1% in January.
- Diabetes EYEGLASS MAKER consulted, input appreciated
- Patient back to his home dose of 30 units of glargine twice daily alongside low-dose insulin sliding scale
- Pt self caths, may need Castillo catheter
- Continue gabapentin, continue duloxetine
# AMBER on CKD IIIa
- Creatinine baseline, 1.2. increased to 2.9. now downtrending, 1. 4
- Urine studies show pre-renal cause, likely from hypovolemic state
- Continue monitoring BMP
#GERD
- Continue Pantoprazole
# CIDP
- Continue current meds, will need to arrange for PLEX in outpatient setting once discharged
DVT Prophylaxis: Lovenox
Code Status: Full
Anticipated Discharge: 24 - 48 hours
Subjective/Interval History
-
Date of Service: March 29, 2025
Patient seen this morning, says that he is feeling pretty much the same. No changes from yesterday, reports that the bleeding has much improved from over the weekend. No wound VAC still, as per discussions with patient and podiatry he most likely
be going back to the OR over the week. Pain level is under control for now.
Objective Data
-
Labs:
Laboratory Results
03/29/25
08:18
WBC 10.7
Hgb 8.0 L
Hct 24.2 L
Plt Count 397
Sodium 140
Potassium 4.7
Chloride 106
Carbon Dioxide 30
BUN 39 H
Creatinine 1.4 H
Glucose 148 H
Calcium 8.0 L
Total Bilirubin 0.1 L
AST 13 L
ALT 11
Alkaline Phosphatase 71
Vital Signs:
Vital Signs
Temp Pulse Resp BP Pulse Ox
97.8 F 76 16 104/53 96
03/29/25 07:25 03/29/25 07:25 03/29/25 07:25 03/29/25 07:25 03/29/25 07:25
I&O
03/28/25 03/29/25 03/30/25
06:59 06:59 06:59
Intake Total 1406 / 1406 250 / 250
Output Total 3775 / 3775 5030 / 5030
Balance -2369 / -2369 -4780 / -4780
Review of Systems
-
History Source: Patient
Constitutional: Reports No Symptoms
EENT: Reports No Symptoms Reported
Respiratory: Reports No Symptoms
Cardiac: Reports No Symptoms
Abdomen/GI: Reports No Symptoms
Genitourinary: Reports Difficulty Voiding (Self caths)
Musculoskeletal: Reports Joint Pain (Left lower extremity pain)
Skin: Reports No Symptoms
Neuro: Reports No Symptoms
Endocrine: Reports No Symptoms
Hematologic / Lymphatic: Reports No Symptoms
Allergy / Immunology: Reports No Symptoms
Physical Exam
-
General: Well Developed, Well Nourished, Conversant and Obese
HEENT: Normocephalic and Atraumatic
Respiratory: Clear to Auscultation and Non Labored Respirations; Negative Wheezes, Rales or Rhonchi
Cardiac: Regular Rhythm and S1/S2; Negative Murmur
GI: Soft, Nontender, Nondistended and Normal Bowel Sounds
Musculoskeletal: Other (R BKA; left hallux and second toe amputation; left foot wrapped in dressing)
Skin: Warm and Dry; Negative Rash
Neuro: Awake and AO x 3
Psych: Calm
Data Reviewed
-
Labs: Labs Reviewed by me, Discussed with Physician and Discussed with Patient
--- NOTE | 2025-03-29 10:54 | CM ---
Patient seen at bedside with long-term guards present on . Patient asked about next steps, CM spoke with physician and pending possible wound vac when [facility] contact number is [phone]/fax [phone]. CM will
continue to follow for discharge planning needs.
Plan; return to [facility] when medically appropriate.
[2025-03-29 11:25] VITALS: BP 121/64
--- NOTE | 2025-03-29 11:29 | W.PN.ID1 ---
Date of Service
Date of Service: March 29, 2025
Today's Communication
Continue daptomycin.
Assessment / Plan
# Pruritic rash due to Vancomycin
# Left foot TMA site wound dehiscence
# Recent 03/08 s/p L TMA (surgical cure), heel debridement, and calcaneus biopsy (negative osteo)
# AMBER improving
# Allergies: PCN, cephalosporin, meropenem, Vancomycin; tolerated Avyzaz
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
# Incarcerated
- taken OR 03/25/25 s/p I+D, removal of necrotic bone at amp site, I+D heel wound to subcutaneous tisse; wound vac placed
- OR cx Enterococcus (VRE) and MRSA.
- Path pending
- Will take back to OR this week, per Podiatry.
- Continue daptomycin. Hold statin.
CK normal
-Continue contact isolation
Conditions APPEALS REPRESENTATIVE
Diabetes mellitus
CAD status post PCI
CHF
hx CKD3
Hypertension
Guillain-Potts� syndrome/CIDP, plasma exchange q 2 months
PAD status post right BKA
Left hallux and second toe osteomyelitis status post amputation and debridement of left heel ulcer January 21, 2025
Left foot TMA, I+D left heel wound and bone biopsy of heel Mar 08, 2025
Chief Complaint
-: Other (Foot wound)
Subjective / Review of Systems
Feels tired. Itching controlled with antihistamine. No worsening of rash.
Vital Signs / Physical Exam
Vital Signs
Vital Signs
Temp Pulse Resp BP Pulse Ox
97.8 F 76 16 104/53 96
03/29/25 07:25 03/29/25 07:25 03/29/25 07:25 03/29/25 07:25 03/29/25 07:25
Physical Exam
Constitutional: No Acute Distress and Comfortable
Cardiovascular: Regular Rate and S1/S2
Pulmonary: Clear
Gastrointestinal: Soft, Non Tender and Non Distended
Skin: Rash (Scattered macules )
Wound: Other (left foot dressing dry. )
Neurological: AO x 3
Objective Data
Lab Data
Lab Results
03/29/25 08:18
03/29/25 08:18
Estimated Creat Clear 98 ml/min 03/29/25 08:18
Lactic Acid 0.8 mmol/L (0.7-2.0) 03/25/25 01:16
Total Bilirubin 0.1 mg/dl (0.2-1.3) L 03/29/25 08:18
AST 13 U/L (17-59) L 03/29/25 08:18
ALT 11 U/L (0-50) 03/29/25 08:18
Alkaline Phosphatase 71 U/L (38-126) 03/29/25 08:18
Most recent labs reviewed.
Micro Results:
03/25/25 09:33 Blood Culture - Preliminary
Blood/Venous No Growth in 4 days- Final report to follow
03/25/25 16:52 Fungal Culture - Preliminary
Foot - Left Culture in progress.
Positive cultures are reported as soon as detected.
Final report to follow in four to five weeks.
03/25/25 16:52 Anaerobic Culture - Preliminary
Foot - Left Culture pending. Anaerobic cultures are examined after 3
days incubation. Additional information to follow.
03/27/25 10:35 Urine Culture - Final
Urine Anna albicans
03/25/25 01:16 Blood Culture - Preliminary
Blood/Venous No Growth in 4 days- Final report to follow
03/25/25 16:56 Anaerobic Culture - Preliminary
Foot - Left NO ANAEROBES ISOLATED
03/24/25 12:51 Salmonella/Shigella Culture - Final
Feces/Stool No Salmonella, Shigella, Aeromonas or Plesiomonas species
isolated.
Campylobacter Culture - Final
No Campylobacter species isolated.
Shiga Toxin Test - Final
No E. coli Shiga Toxin 1 or 2 detected.
03/25/25 16:56 Wound Culture - Preliminary
Foot - Left Staph aureus MRSA
Enterococcus faecalis - VRE
Gram Stain - Preliminary
03/25/25 16:52 Wound Culture - Preliminary
Foot - Left Staph aureus MRSA
Enterococcus faecalis - VRE
Gram Stain - Preliminary
03/21/25 21:00 Blood Culture - Final
Blood/Venous No Growth - Final Report
03/21/25 21:00 Blood Culture - Final
Blood/Venous No Growth - Final Report
03/21/25 21:16 Wound Culture - Final
Foot - Left Enterococcus faecalis - VRE
Anna albicans
Gram Stain - Final
03/24/25 12:53 C. difficile GDH Antigen & Toxins - Final
Feces/Stool C. difficile antigen positive, toxin negative.
Clostridium difficile present, but toxin not detected.
Patient may be a carrier, colonized with nontoxinogenic
strain or the level of toxin in sample is below detection
limits. This information should be used in conjunction with
the patient's clinical history.
03/22/25 13:07 MRSA Screen - Final
Nose No Methicillin Resistant Staphylococcus aureus isolated.
[2025-03-29 11:47] LABS: Glucose - Point of Care 129 mg/dl (70-99)
[2025-03-29] MEDS: CUBICIN 16 MG IV (15:09)
[2025-03-29 15:20] VITALS: BP 108/57
[2025-03-29 16:11] LABS: Glucose - Point of Care 187 mg/dl (70-99)
[2025-03-29] MEDS: NOVOLOG FLEXPEN-LOW RESISTANCE 1 UNITS SC (17:17)
[2025-03-29] MEDS: LOVENOX 40 MG SC (17:18)
[2025-03-29 19:30] VITALS: BP 133/77
[2025-03-29] MEDS: REMERON 30 MG PO (20:49)
[2025-03-29 21:29] LABS: Glucose - Point of Care 212 mg/dl (70-99)
[2025-03-29 23:36] VITALS: BP 118/70
[2025-03-30] MEDS: TYLENOL PO (00:35)
[2025-03-30] MEDS: BENADRYL 25 MG IV ×5 (04:18→23:06)
[2025-03-30] MEDS: DILAUDID 0.25 MG IV ×4 (04:18→23:07)
[2025-03-30] MEDS: TYLENOL 1000 MG PO ×4 (05:22→23:06)
[2025-03-30 05:58] VITALS: BMI 32.1
[2025-03-30 07:25] VITALS: BP 139/79
--- NOTE | 2025-03-30 07:43 | W.PN.HOSP.TC ---
Today's Communication/Plan
-
Monitor Hemoglobin, awaiting further recommendations from podiatry
Continue IV antibiotics
Assessment / Plan
Assessment / Plan
Assessment:
29-year-old with a past medical history significant for diabetes mellitus type 1, ASCVD and multiple lower extremity amputations presented to the [place] ED complaining of left foot pain, swelling and bleeding. He had recently been admitted to
the hospital from 03/05 to 03/18 for osteomyelitis of the left foot. He had undergone amputation of the first 2 digits of the left foot on 01/21/2025. He returned for further hospitalization requiring TMA and heel debridement on 03/08/25 and
completed his in patient course of antibiotics on 03/16. As per the patient, he had banged his foot while leaving the hospital which has continued to cause and worsening bleeding/oozing from the left foot. Patient was admitted to the hospital for
podiatry evaluation regarding any wound concerns however his wound did not show any significant erythema, bleeding or discharge. Does not have any fever or chills, but reported some chest pain with negative workup. Patient is currently postop
day#5 following left foot debridement of metatarsal and heel.
Plan:
#Left foot TMA site with wound dehiscence:
#Acute bleed: from site of L TMA and Heel Debridement (03/25) overnight. Associated with aspirin Plavix for CAD history. Hgb 5.7 on 03/26. 2 units PRBC given.
#Acute blood Loss Anemia secondary to the above:
#Chronic Anemia / Iron Deficiency:
- Vascular ultrasound showed no significant arterial stenosis on the left however Doppler waveforms suggest disease within the distal SFA/popliteal artery and infrapopliteal disease may also be present as per arterial studies. Multiple lymph nodes
were also seen in the left thigh which may be reactive.
- Wound cultures grew MRSA, VRE
- Appreciate ID
- Continue Daptomycin
- Iron supplementation continue
- Pain control with as needed Dilaudid/Tylenol
- Status postdebridement 03/25. Appreciate podiatry, plan for closure/further OR today or further week. Discussed with them yesterday that they are currently awaiting pathology results before further procedures
- Hemoglobin dropped to 7.2 requiring blood transfusion, given 1 unit of blood
- Continue monitoring hemoglobin daily and transfuse as needed
#Itchy rash:
- Resolved for now, continue monitoring for any development of rash
# History of ASCVD
# Chest Pain
- EKG/troponin negative for any acute process
- Chest pain is chronic. Not above baseline. Most likely musculoskeletal
- Less concern for anything like pulmonary embolism as lungs clear, adequate saturation, normal resp rate
- Continue ASA
- Continue statin
- Continue Ranolazine
- Continue Carvedilol
# DM-I with Hyperglycemia and neuropathy
- A1C = 8.1% in January.
- Diabetes SITE CONTROLLER consulted, input appreciated
- Patient back to his home dose of 30 units of glargine twice daily alongside low-dose insulin sliding scale
- Pt self caths, may need Castillo catheter
- Continue gabapentin, continue duloxetine
# AMBER on CKD IIIa
- Creatinine baseline, 1.2. increased to 2.9. now downtrending, 1. 4
- Urine studies show pre-renal cause, likely from hypovolemic state
- Continue monitoring BMP
#GERD
- Continue Pantoprazole
# CIDP
- Continue current meds, will need to arrange for PLEX in outpatient setting once discharged
DVT Prophylaxis: Lovenox
Code Status: Full
Anticipated Discharge: > 48 hours
Subjective/Interval History
-
Date of Service: March 30, 2025
Patient seen today in the morning, resting comfortably in his bed. Reports no concerns at this time. Aware of possible further debridement/OR later in the week.
Objective Data
-
Labs:
Laboratory Results
03/30/25
06:28
WBC Pending
Hgb Pending
Hct Pending
Plt Count Pending
Sodium Pending
Potassium Pending
Chloride Pending
Carbon Dioxide Pending
BUN Pending
Creatinine Pending
Glucose Pending
Calcium Pending
Total Bilirubin Pending
AST Pending
ALT Pending
Alkaline Phosphatase Pending
Vital Signs:
Vital Signs
Temp Pulse Resp BP Pulse Ox
98.2 F 85 20 118/70 98
03/29/25 23:36 03/29/25 23:36 03/29/25 23:36 03/29/25 23:36 03/29/25 23:36
I&O
03/29/25 03/30/25 03/31/25
06:59 06:59 06:59
Intake Total 250 / 250 1680 / 1680
Output Total 5030 / 5030 3040 / 3040
Balance -4780 / -4780 -1360 / -1360
Review of Systems
-
History Source: Patient
Constitutional: Reports No Symptoms
EENT: Reports No Symptoms Reported
Respiratory: Reports No Symptoms
Cardiac: Reports No Symptoms
Abdomen/GI: Reports No Symptoms
Genitourinary: Reports Difficulty Voiding (Self caths)
Musculoskeletal: Reports Joint Pain (Left lower extremity pain)
Skin: Reports No Symptoms
Neuro: Reports No Symptoms
Endocrine: Reports No Symptoms
Hematologic / Lymphatic: Reports No Symptoms
Allergy / Immunology: Reports No Symptoms
Physical Exam
-
General: Well Developed, Well Nourished, Conversant and Obese
HEENT: Normocephalic and Atraumatic
Respiratory: Clear to Auscultation and Non Labored Respirations; Negative Wheezes, Rales or Rhonchi
Cardiac: Regular Rhythm and S1/S2; Negative Murmur
GI: Soft, Nontender, Nondistended and Normal Bowel Sounds
Musculoskeletal: Other (R BKA; left hallux and second toe amputation; left foot wrapped in dressing)
Skin: Warm and Dry; Negative Rash
Neuro: Awake and AO x 3
Psych: Calm
Data Reviewed
-
Labs: Labs Reviewed by me, Discussed with Physician and Discussed with Patient
[2025-03-30 07:56] LABS: Glucose - Point of Care 221 mg/dl (70-99)
[2025-03-30 08:17] LABS: Hematocrit 26.3 % (39.0-52.0); Hemoglobin 8.7 g/dL (13.0-18.0); Mean Corp Hgb Conc. 33.1 g/dL (33.0-37.0); Mean Corpuscular Volume 90.7 fL (80.0-94.0); Platelet Count 456 10^3/uL (130-400); Red Cell Dist. Width 15.9 % (11.5-14.5)
--- NOTE | 2025-03-30 08:22 | PN.DE.MGMTRT ---
Insulin Management
- -
03/30/2025: Diabetes Management Follow up
Patient admitted from [facility] 03/21 with c/o bleeding L heel wound. PMH type 1 diabetes, R BKA, L toe amputation, recent debridement L heel, Gu[place], CHF, HTN, CKD, NV, recent admission 01/21 and 03/05 s/p
transmetatarsal L amputation and debridement. Prior to admission was receiving Lantus 30 units BID with Humalog insulin ss AC. A1C on admission 6.9%, Cr 1.2, eGFR > 60 (improved from 8.1%).
Prior to incarceration was living in a [facility] per patient he will return there.
Patient is awake, alert and oriented, resting in bed, offers no complaints, able to discuss diabetes care plan at length.
Premeal glucose yesterday was 129 to 187, received 1 to 2 units of corrective insulin with meals; HS glucose 212.
Yesterday received AC NovoLog 12 units, lantus 34 units BID with low corrective with meals.
Fasting glucose 221. Patient did have multiple saltine wrappers on bedside table but denied eating last evening. Will make no change to current regimen as glucose improved.
Will assess glucose trend for need to further adjust insulin today.
Discussed with nurse.
Will cont to follow.
Diabetes History
- -
Type of Diabetes: 1
Pre-Admission Diabetes Regimen
03/29/25
08:18
Creatinine 1.4 H
Lab Results
Hemoglobin A1c 6.9 % (4.0-5.6) H 03/22/25 06:24
Insulin Pump Settings
IP Diabetes Regimen
03/29/25 03/29/25 03/29/25
08:18 11:46 16:09
Glucose 148 H
POC Glucose 129 H 187 H
03/29/25 03/30/25
21:28 07:55
Glucose
POC Glucose 212 H 221 H
Meal type: Lunch
Meal type: Breakfast
Amount consumed: 100%
Amount consumed: 100%
Patient Education
[2025-03-30] MEDS: PLAVIX 75 MG PO (09:02)
[2025-03-30] MEDS: IMDUR (EXTENDED RELEASE) 60 MG PO (09:02)
[2025-03-30] MEDS: COREG 25 MG PO ×2 (09:02→20:26)
[2025-03-30] MEDS: NEURONTIN 300 MG PO ×3 (09:02→20:26)
[2025-03-30] MEDS: DEMADEX 40 MG PO (09:03)
[2025-03-30] MEDS: RANEXA EXTENDED RELEASE 1000 MG PO ×2 (09:03→20:27)
[2025-03-30] MEDS: CYMBALTA DELAYED RELEASE 30 MG PO (09:03)
[2025-03-30] MEDS: PROTONIX 40 MG PO (09:03)
[2025-03-30] MEDS: ASPIR LOW (ENTERIC COATED) 81 MG PO (09:03)
[2025-03-30] MEDS: NOVOLOG FLEXPEN 12 UNITS SC ×3 (09:04→17:55)
[2025-03-30] MEDS: NOVOLOG FLEXPEN-LOW RESISTANCE 2 UNITS SC (09:04)
[2025-03-30] MEDS: FEOSOL 325 MG PO ×2 (09:04→20:27)
[2025-03-30 09:23] LABS: ALT (SGPT) 13 U/L (0-50); AST (SGOT) 17 U/L (17-59); Albumin 3.2 g/dl (3.5-5.0); Alkaline Phosphatase 74 U/L (38-126); Blood Urea Nitrogen 38 mg/dl (9-20); Calcium 8.2 mg/dl (8.4-10.2); Carbon Dioxide 28 mmol/L (22-30); Chloride 103 mmol/L (98-107); Estimated Creatinine Clearance 115 ml/min; Glucose 213 mg/dl (70-99); Potassium 5.0 mmol/L (3.5-5.1); Sodium 136 mmol/L (135-145); Total Protein 6.5 g/dl (6.3-8.2); eGFR > 60.00
--- NOTE | 2025-03-30 09:53 | W.PN.ID1 ---
Date of Service
Date of Service: March 30, 2025
Today's Communication
Continue daptomycin.
Assessment / Plan
# Pruritic rash due to Vancomycin
# Left foot TMA site wound dehiscence
# Recent 03/08 s/p L TMA (surgical cure), heel debridement, and calcaneus biopsy (negative osteo)
# AMBER improving
# Allergies: PCN, cephalosporin, meropenem, Vancomycin; tolerated Avyzaz
# MDRO
# Incarcerated
- taken OR 03/25/25 s/p I+D, removal of necrotic bone at amp site, I+D heel wound to subcutaneous tisse; wound vac placed
- OR cx Enterococcus (VRE) and MRSA.
- Path pending
- Will take back to OR this week, per Podiatry.
- Continue daptomycin. Hold statin.
CK normal
-Continue contact isolation
Conditions PATIENT ACCESS DIRECTOR
Diabetes mellitus
CAD status post PCI
CHF
hx CKD3
Hypertension
Guillain-Potts� syndrome/CIDP, plasma exchange q 2 months
PAD status post right BKA
Left hallux and second toe osteomyelitis status post amputation and debridement of left heel ulcer January 21, 2025
Left foot TMA, I+D left heel wound and bone biopsy of heel Mar 08, 2025
Chief Complaint
-: Other (Foot wound)
Subjective / Review of Systems
Tolerating daptomycin.
No new complaints.Still itching from previous vancomycin.
No diarrhea.
Vital Signs / Physical Exam
Vital Signs
Vital Signs
Temp Pulse Resp BP Pulse Ox
98.1 F 81 16 139/79 97
03/30/25 07:25 03/30/25 09:02 03/30/25 07:25 03/30/25 09:02 03/30/25 07:25
Physical Exam
Constitutional: No Acute Distress and Comfortable
Cardiovascular: Regular Rate and S1/S2
Pulmonary: Clear
Gastrointestinal: Soft, Non Tender and Non Distended
Skin: Rash (Scattered macules )
Wound: Other (left foot dressing dry. )
Neurological: AO x 3
Objective Data
Lab Data
Lab Results
03/30/25 07:50
03/30/25 07:50
Estimated Creat Clear 115 ml/min 03/30/25 07:50
Lactic Acid 0.8 mmol/L (0.7-2.0) 03/25/25 01:16
Total Bilirubin 0.3 mg/dl (0.2-1.3) 03/30/25 07:50
AST 17 U/L (17-59) 03/30/25 07:50
ALT 13 U/L (0-50) 03/30/25 07:50
Alkaline Phosphatase 74 U/L (38-126) 03/30/25 07:50
Most recent labs reviewed.
Micro Results:
03/25/25 09:33 Blood Culture - Final
Blood/Venous No Growth - Final Report
03/25/25 16:56 Wound Culture - Final
Foot - Left Staph aureus MRSA
Enterococcus faecalis - VRE
Gram Stain - Final
03/25/25 16:56 Anaerobic Culture - Final
Foot - Left NO ANAEROBES ISOLATED
03/25/25 16:52 Wound Culture - Final
Foot - Left Staph aureus MRSA
Enterococcus faecalis - VRE
Gram Stain - Final
03/25/25 16:52 Anaerobic Culture - Final
Foot - Left NO ANAEROBES ISOLATED
03/25/25 01:16 Blood Culture - Final
Blood/Venous No Growth - Final Report
03/25/25 16:52 Fungal Culture - Preliminary
Foot - Left Culture in progress.
Positive cultures are reported as soon as detected.
Final report to follow in four to five weeks.
03/27/25 10:35 Urine Culture - Final
Urine Anna albicans
03/24/25 12:51 Salmonella/Shigella Culture - Final
Feces/Stool No Salmonella, Shigella, Aeromonas or Plesiomonas species
isolated.
Campylobacter Culture - Final
No Campylobacter species isolated.
Shiga Toxin Test - Final
No E. coli Shiga Toxin 1 or 2 detected.
03/21/25 21:00 Blood Culture - Final
Blood/Venous No Growth - Final Report
03/21/25 21:00 Blood Culture - Final
Blood/Venous No Growth - Final Report
03/21/25 21:16 Wound Culture - Final
Foot - Left Enterococcus faecalis - VRE
Anna albicans
Gram Stain - Final
03/24/25 12:53 C. difficile GDH Antigen & Toxins - Final
Feces/Stool C. difficile antigen positive, toxin negative.
Clostridium difficile present, but toxin not detected.
Patient may be a carrier, colonized with nontoxinogenic
strain or the level of toxin in sample is below detection
limits. This information should be used in conjunction with
the patient's clinical history.
03/22/25 13:07 MRSA Screen - Final
Nose No Methicillin Resistant Staphylococcus aureus isolated.
[2025-03-30] MEDS: LANTUS 0.34 UNITS SC ×2 (10:22→17:57)
[2025-03-30 12:57] LABS: Glucose - Point of Care 169 mg/dl (70-99)
[2025-03-30] MEDS: NOVOLOG FLEXPEN-LOW RESISTANCE 1 UNITS SC (13:28)
[2025-03-30 15:25] VITALS: BP 105/53
[2025-03-30] MEDS: CUBICIN 16 MG IV (15:31)
[2025-03-30 16:58] LABS: Glucose - Point of Care 127 mg/dl (70-99)
[2025-03-30] MEDS: NOVOLOG FLEXPEN-LOW RESISTANCE SC (17:06)
[2025-03-30] MEDS: LOVENOX 40 MG SC (17:55)
[2025-03-30 21:22] LABS: Glucose - Point of Care 109 mg/dl (70-99)
[2025-03-30 22:39] VITALS: BP 130/72
[2025-03-30] MEDS: REMERON 30 MG PO (23:06)
[2025-03-31] MEDS: DILAUDID 0.25 MG IV ×3 (05:16→17:57)
[2025-03-31] MEDS: TYLENOL 1000 MG PO ×4 (05:16→23:30)
[2025-03-31] MEDS: BENADRYL 25 MG IV ×3 (05:23→17:57)
[2025-03-31 06:00] VITALS: BMI 31.5
[2025-03-31 07:07] VITALS: BP 123/64
--- NOTE | 2025-03-31 07:52 | W.PN.HOSP.TC ---
Today's Communication/Plan
-
Awaiting podiatry evaluation
Continue monitoring for any worsening symptoms
Transfuse blood if needed
Continue IV antibiotics
Assessment / Plan
Assessment / Plan
Assessment:
29-year-old with a past medical history significant for diabetes mellitus type 1, ASCVD and multiple lower extremity amputations presented to the [place] ED complaining of left foot pain, swelling and bleeding. He had recently been admitted to
the hospital from 03/05 to 03/18 for osteomyelitis of the left foot. He had undergone amputation of the first 2 digits of the left foot on 01/21/2025. He returned for further hospitalization requiring TMA and heel debridement on 03/08/25 and
completed his in patient course of antibiotics on 03/16. As per the patient, he had banged his foot while leaving the hospital which has continued to cause and worsening bleeding/oozing from the left foot. Patient was admitted to the hospital for
podiatry evaluation regarding any wound concerns however his wound did not show any significant erythema, bleeding or discharge. Does not have any fever or chills, but reported some chest pain with negative workup. Patient is currently postop
day#6 following left foot debridement of metatarsal and heel.
Plan:
#Left foot TMA site with wound dehiscence:
#Acute bleed: from site of L TMA and Heel Debridement (03/25) overnight. Associated with aspirin Plavix for CAD history. Hgb 5.7 on 03/26. 2 units PRBC given.
#Acute blood Loss Anemia secondary to the above:
#Chronic Anemia / Iron Deficiency:
- Vascular ultrasound showed no significant arterial stenosis on the left however Doppler waveforms suggest disease within the distal SFA/popliteal artery and infrapopliteal disease may also be present as per arterial studies. Multiple lymph nodes
were also seen in the left thigh which may be reactive.
- Wound cultures grew MRSA, VRE
- Appreciate ID
- Continue Daptomycin
- Iron supplementation continue
- Pain control with as needed Dilaudid/Tylenol
- Status postdebridement 03/25. Appreciate podiatry, plan for closure/further OR today or further week. Still awaiting pathology results, should see patient today for further evaluation.
- Hemoglobin dropped to 7.2 requiring blood transfusion, given 1 unit of blood
- Continue monitoring hemoglobin daily and transfuse as needed
#Itchy rash:
- Resolved for now, continue monitoring for any development of rash
# History of ASCVD
# Chest Pain
- EKG/troponin negative for any acute process
- Chest pain is chronic. Not above baseline. Most likely musculoskeletal
- Less concern for anything like pulmonary embolism as lungs clear, adequate saturation, normal resp rate
- Continue ASA
- Continue statin
- Continue Ranolazine
- Continue Carvedilol
# DM-I with Hyperglycemia and neuropathy
- A1C = 8.1% in January.
- Diabetes BLOOD DONOR RECRUITER consulted, input appreciated
- Patient back to his home dose of 30 units of glargine twice daily alongside low-dose insulin sliding scale
- Pt self caths, may need Castillo catheter
- Continue gabapentin, continue duloxetine
# AMBER on CKD IIIa
- Creatinine baseline, 1.2. increased to 2.9. now downtrending, 1. 4
- Urine studies show pre-renal cause, likely from hypovolemic state
- Continue monitoring BMP
#GERD
- Continue Pantoprazole
# CIDP
- Continue current meds, will need to arrange for PLEX in outpatient setting once discharged
DVT Prophylaxis: Lovenox
Code Status: Full
Anticipated Discharge: > 48 hours
Subjective/Interval History
-
Date of Service: March 31, 2025
Patient seen this morning, was complaining of left lower extremity pain. Says that he has been feeling like the lower extremity is burning. Has not noticed any fever or chills.
Objective Data
-
Labs:
Laboratory Results
03/31/25
06:00
WBC Pending
Hgb Pending
Hct Pending
Plt Count Pending
Sodium Pending
Potassium Pending
Chloride Pending
Carbon Dioxide Pending
BUN Pending
Creatinine Pending
Glucose Pending
Calcium Pending
Total Bilirubin Pending
AST Pending
ALT Pending
Alkaline Phosphatase Pending
Vital Signs:
Vital Signs
Temp Pulse Resp BP Pulse Ox
98.7 F 96 16 130/72 94
03/30/25 22:39 03/30/25 22:39 03/30/25 22:39 03/30/25 22:39 03/30/25 22:39
I&O
03/30/25 03/31/25 04/01/25
06:59 06:59 06:59
Intake Total 1680 / 1680 1640 / 1640
Output Total 3040 / 3040 3050 / 3050
Balance -1360 / -1360 -1410 / -1410
Review of Systems
-
History Source: Patient
Constitutional: Reports No Symptoms
EENT: Reports No Symptoms Reported
Respiratory: Reports No Symptoms
Cardiac: Reports No Symptoms
Abdomen/GI: Reports No Symptoms
Genitourinary: Reports Difficulty Voiding (Self caths)
Musculoskeletal: Reports Joint Pain (Left lower extremity pain)
Skin: Reports No Symptoms
Neuro: Reports No Symptoms
Endocrine: Reports No Symptoms
Hematologic / Lymphatic: Reports No Symptoms
Allergy / Immunology: Reports No Symptoms
Physical Exam
-
General: Well Developed, Well Nourished, Conversant and Obese
HEENT: Normocephalic and Atraumatic
Respiratory: Clear to Auscultation and Non Labored Respirations; Negative Wheezes, Rales, Rhonchi or Crackles
Cardiac: Regular Rhythm and S1/S2; Negative Murmur or Tachycardic
GI: Soft, Nontender, Nondistended and Normal Bowel Sounds
Musculoskeletal: No Clubbing, No Cyanosis and Other (R BKA; left hallux and second toe amputation; left foot wrapped in dressing)
Skin: Warm and Dry; Negative Rash
Neuro: Awake, Alert, Oriented and AO x 3
Psych: Calm
Data Reviewed
-
Labs: Labs Reviewed by me and Discussed with Physician
[2025-03-31 07:56] LABS: Glucose - Point of Care 59 mg/dl (70-99)
--- NOTE | 2025-03-31 08:19 | PN.DE.MGMTRT ---
Insulin Management
- -
03/30/2025: Diabetes Management Follow up
Patient admitted from [facility] 03/21 with c/o bleeding L heel wound. PMH type 1 diabetes, R BKA, L toe amputation, recent debridement L heel, Guillian [place], CHF, HTN, CKD, [place], recent admission 01/21 and 03/05 s/p
transmetatarsal L amputation and debridement. Prior to admission was receiving Lantus 30 units BID with Humalog insulin ss AC. A1C on admission 6.9%, Cr 1.2, eGFR > 60 (improved from 8.1%).
Prior to incarceration was living in a care home per patient he will return there.
Patient is awake, alert and oriented, resting in bed, offers no complaints, able to discuss diabetes care plan at length.
Premeal glucose yesterday was 109 to 221, received 1 to 2 units of corrective insulin with meals; HS glucose 109.
Yesterday received AC NovoLog 12 units, lantus 34 units BID with low corrective with meals.
Fasting glucose 59. Suspect his dinner intake was poor. Will reduce evening lantus to 32 units, continue 34 units in AM and 12 units novolog AC with low corrective insulin AC.
Will assess glucose trend for need to further adjust insulin today.
Discussed with nurse.
Will cont to follow.
Diabetes History
- -
Type of Diabetes: 1
Pre-Admission Diabetes Regimen
03/30/25
07:50
Creatinine 1.2
Lab Results
Hemoglobin A1c 6.9 % (4.0-5.6) H 03/22/25 06:24
Insulin Pump Settings
IP Diabetes Regimen
03/30/25 03/30/25 03/30/25
07:50 12:56 16:57
Glucose 213 H
POC Glucose 169 H 127 H
03/30/25 03/31/25
21:21 07:51
Glucose
POC Glucose 109 H 59 L
Meal type: Lunch
Meal type: Breakfast
Amount consumed: 100%
Amount consumed: 100%
Patient Education
[2025-03-31 08:23] LABS: Glucose - Point of Care 61 mg/dl (70-99)
[2025-03-31 08:41] LABS: Glucose - Point of Care 81 mg/dl (70-99)
[2025-03-31 08:54] LABS: Hematocrit 25.9 % (39.0-52.0); Hemoglobin 8.3 g/dL (13.0-18.0); Mean Corp Hgb Conc. 32.0 g/dL (33.0-37.0); Mean Corpuscular Volume 91.5 fL (80.0-94.0); Platelet Count 445 10^3/uL (130-400); Red Cell Dist. Width 15.8 % (11.5-14.5)
[2025-03-31] MEDS: NOVOLOG FLEXPEN-LOW RESISTANCE SC ×3 (08:56→16:13)
[2025-03-31] MEDS: ASPIR LOW (ENTERIC COATED) 81 MG PO (08:59)
[2025-03-31] MEDS: DEMADEX 40 MG PO (08:59)
[2025-03-31] MEDS: COREG 25 MG PO ×2 (09:00→21:03)
[2025-03-31] MEDS: PLAVIX 75 MG PO (09:00)
[2025-03-31] MEDS: IMDUR (EXTENDED RELEASE) 60 MG PO (09:00)
[2025-03-31] MEDS: NEURONTIN 300 MG PO ×3 (09:00→21:02)
[2025-03-31] MEDS: RANEXA EXTENDED RELEASE 1000 MG PO ×2 (09:00→21:01)
[2025-03-31] MEDS: PROTONIX 40 MG PO (09:00)
[2025-03-31] MEDS: CYMBALTA DELAYED RELEASE 30 MG PO (09:00)
[2025-03-31] MEDS: FEOSOL 325 MG PO ×2 (09:00→21:02)
[2025-03-31] MEDS: LANTUS SC (09:04)
[2025-03-31] MEDS: NOVOLOG FLEXPEN 12 UNITS SC ×3 (09:13→17:58)
--- NOTE | 2025-03-31 09:13 | CM ---
Chart reviewed. Care ongoing.
Cont IV abx
Await podiatry eval
[facility]
Report: [phone]

Plan: Return to [facility] when medically stable
[2025-03-31] MEDS: LANTUS 0.34 UNITS SC (09:14)
[2025-03-31 09:34] LABS: ALT (SGPT) 13 U/L (0-50); AST (SGOT) 15 U/L (17-59); Albumin 3.1 g/dl (3.5-5.0); Alkaline Phosphatase 86 U/L (38-126); Blood Urea Nitrogen 37 mg/dl (9-20); Calcium 8.6 mg/dl (8.4-10.2); Carbon Dioxide 33 mmol/L (22-30); Chloride 102 mmol/L (98-107); Estimated Creatinine Clearance 98 ml/min; Glucose 59 mg/dl (70-99); Potassium 4.7 mmol/L (3.5-5.1); Sodium 140 mmol/L (135-145); Total Protein 6.6 g/dl (6.3-8.2); eGFR > 60.00
--- NOTE | 2025-03-31 10:08 | W.PN.ID1 ---
Date of Service
Date of Service: March 31, 2025
Today's Communication
See below.
Assessment / Plan
# Leukocytosis trending up
# Temps trending up
# Left foot TMA site wound dehiscence with necrosis
# Recent 03/08 s/p L TMA (surgical cure), heel debridement, and calcaneus biopsy (negative osteo)
# AMBER improving
# Allergies: PCN, cephalosporin, meropenem, Vancomycin; tolerated Avyzaz
# MDRO
# Incarcerated
- taken OR 03/25/25 s/p I+D, removal of necrotic bone at amp site, I+D heel wound to subcutaneous tisse; wound vac placed
- OR cx Enterococcus (VRE) and MRSA.
- Path still pending.
- Will take back to OR this week, per Podiatry.
- Continue daptomycin. Hold statin.
CK normal
- Work-up for leukocytosis and increase temps
No diarrhea - not C. diff.
Chest exam clear - not PNA
Check for COVID.
Check blood cx's x 2
For LLE venous US per primary team.
Follow temps/wbc
-Continue contact isolation
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
Diabetes mellitus
CAD status post PCI
CHF
hx CKD3
Hypertension
Guillain-Potts� syndrome/CIDP, plasma exchange q 2 months
PAD status post right BKA
Left hallux and second toe osteomyelitis status post amputation and debridement of left heel ulcer January 21, 2025
Left foot TMA, I+D left heel wound and bone biopsy of heel Mar 08, 2025
Chief Complaint
-: Leukocytosis and Other (Foot wound)
Subjective / Review of Systems
c/o 'flu-like sxs' past few days.
+ fever
No rhinorrhea/sorethroat/cough
No diarrhea.
Increase urination (self-cath)
c/o left calf discomfort
Vital Signs / Physical Exam
Vital Signs
Vital Signs
Temp Pulse Resp BP Pulse Ox
100.0 F 96 18 130/72 96
03/31/25 07:07 03/31/25 08:59 03/31/25 07:07 03/31/25 08:59 03/31/25 07:07
Physical Exam
Constitutional: Comfortable and Chronically Ill
Head: Other (No frontal or maxillary sinus tenderness)
Cardiovascular: Regular Rate and S1/S2
Pulmonary: Clear, Symmetric and Non Labored; Negative Wheezes, Rales, Rhonchi or Coarse
Gastrointestinal: Soft, Non Tender, Non Distended and Normal Bowel Sounds
Genito-Urinary: Negative CVA Tenderness
Extremities: Negative Edema
Musculoskeletal: Negative Spinal Tenderness
Wound: Other (left foot dressing dry)
Neurological: AO x 3; Negative Meningeal Signs
Lines: Other (LUE midline no erythema)
Objective Data
Lab Data
Lab Results
03/31/25 08:31
03/31/25 08:31
Estimated Creat Clear 98 ml/min 03/31/25 08:31
Lactic Acid 0.8 mmol/L (0.7-2.0) 03/25/25 01:16
Total Bilirubin 0.5 mg/dl (0.2-1.3) 03/31/25 08:31
AST 15 U/L (17-59) L 03/31/25 08:31
ALT 13 U/L (0-50) 03/31/25 08:31
Alkaline Phosphatase 86 U/L (38-126) 03/31/25 08:31
Most recent labs reviewed.
Micro Results:
03/25/25 09:33 Blood Culture - Final
Blood/Venous No Growth - Final Report
03/25/25 16:56 Wound Culture - Final
Foot - Left Staph aureus MRSA
Enterococcus faecalis - VRE
Gram Stain - Final
03/25/25 16:56 Anaerobic Culture - Final
Foot - Left NO ANAEROBES ISOLATED
03/25/25 16:52 Wound Culture - Final
Foot - Left Staph aureus MRSA
Enterococcus faecalis - VRE
Gram Stain - Final
03/25/25 16:52 Anaerobic Culture - Final
Foot - Left NO ANAEROBES ISOLATED
03/25/25 01:16 Blood Culture - Final
Blood/Venous No Growth - Final Report
03/25/25 16:52 Fungal Culture - Preliminary
Foot - Left Culture in progress.
Positive cultures are reported as soon as detected.
Final report to follow in four to five weeks.
03/27/25 10:35 Urine Culture - Final
Urine Anna albicans
03/24/25 12:51 Salmonella/Shigella Culture - Final
Feces/Stool No Salmonella, Shigella, Aeromonas or Plesiomonas species
isolated.
Campylobacter Culture - Final
No Campylobacter species isolated.
Shiga Toxin Test - Final
No E. coli Shiga Toxin 1 or 2 detected.
03/21/25 21:00 Blood Culture - Final
Blood/Venous No Growth - Final Report
03/21/25 21:00 Blood Culture - Final
Blood/Venous No Growth - Final Report
03/21/25 21:16 Wound Culture - Final
Foot - Left Enterococcus faecalis - VRE
Anna albicans
Gram Stain - Final
03/24/25 12:53 C. difficile GDH Antigen & Toxins - Final
Feces/Stool C. difficile antigen positive, toxin negative.
Clostridium difficile present, but toxin not detected.
Patient may be a carrier, colonized with nontoxinogenic
strain or the level of toxin in sample is below detection
limits. This information should be used in conjunction with
the patient's clinical history.
03/22/25 13:07 MRSA Screen - Final
Nose No Methicillin Resistant Staphylococcus aureus isolated.
Care Review
Plan reviewed with: Physician (Dr. Nugent)
[2025-03-31 10:43] LABS: Glucose - Point of Care 195 mg/dl (70-99)
[2025-03-31 11:03] LABS: COVID-19 Antigen Negative (Negative)
[2025-03-31 11:44] LABS: Nucleated Red Blood Cells % 0 % (-)
[2025-03-31 11:49] LABS: Glucose - Point of Care 162 mg/dl (70-99)
[2025-03-31 13:36] LABS: Glucose - Point of Care 94 mg/dl (70-99)
[2025-03-31 15:05] VITALS: BP 123/73
[2025-03-31] MEDS: CUBICIN 16 MG IV (15:18)
[2025-03-31 16:00] LABS: Glucose - Point of Care 73 mg/dl (70-99)
[2025-03-31 17:17] LABS: Glucose - Point of Care 74 mg/dl (70-99)
[2025-03-31] MEDS: LOVENOX 40 MG SC (17:58)
[2025-03-31 18:34] LABS: Glucose - Point of Care 68 mg/dl (70-99)
[2025-03-31 18:48] LABS: Glucose - Point of Care 94 mg/dl (70-99)
[2025-03-31 19:17] LABS: Glucose - Point of Care 117 mg/dl (70-99)
[2025-03-31 20:59] LABS: Glucose - Point of Care 125 mg/dl (70-99)
[2025-03-31] MEDS: LANTUS 0.32 UNITS SC (21:01)
[2025-03-31] MEDS: REMERON 30 MG PO (21:02)
[2025-03-31 21:09] VITALS: BP 106/53
[2025-03-31 22:49] LABS: Glucose - Point of Care 117 mg/dl (70-99)
[2025-03-31 23:00] VITALS: BP 128/71
[2025-04-01] MEDS: BENADRYL 25 MG IV ×2 (02:07→08:26)
[2025-04-01] MEDS: DILAUDID 0.25 MG IV ×4 (02:08→20:46)
[2025-04-01 04:02] LABS: Glucose - Point of Care 118 mg/dl (70-99)
[2025-04-01 06:00] VITALS: BMI 31.4
[2025-04-01] MEDS: TYLENOL 1000 MG PO ×4 (06:03→22:58)
[2025-04-01 07:26] LABS: Hematocrit 26.3 % (39.0-52.0); Hemoglobin 8.3 g/dL (13.0-18.0); Mean Corp Hgb Conc. 31.6 g/dL (33.0-37.0); Mean Corpuscular Volume 91.0 fL (80.0-94.0); Nucleated Red Blood Cells % 0 % (-); Platelet Count 457 10^3/uL (130-400); Red Cell Dist. Width 15.3 % (11.5-14.5)
[2025-04-01 07:31] VITALS: BP 121/72
--- NOTE | 2025-04-01 07:52 | W.PN.HOSP.TC ---
Today's Communication/Plan
-
Awaiting pathology results, podiatry evaluation
Continue monitoring for any worsening pain
Continue antibiotics
Awaiting blood cultures
Assessment / Plan
Assessment / Plan
Assessment:
29-year-old with a past medical history significant for diabetes mellitus type 1, ASCVD and multiple lower extremity amputations presented to the [place] ED complaining of left foot pain, swelling and bleeding. He had recently been admitted to
the hospital from 03/05 to 03/18 for osteomyelitis of the left foot. He had undergone amputation of the first 2 digits of the left foot on 01/21/2025. He returned for further hospitalization requiring TMA and heel debridement on 03/08/25 and
completed his in patient course of antibiotics on 03/16. As per the patient, he had banged his foot while leaving the hospital which has continued to cause and worsening bleeding/oozing from the left foot. Patient was admitted to the hospital for
podiatry evaluation regarding any wound concerns however his wound did not show any significant erythema, bleeding or discharge. Does not have any fever or chills, but reported some chest pain with negative workup. Patient is currently postop
day#7 following left foot debridement of metatarsal and heel.
Plan:
#Left foot TMA site with wound dehiscence:
#Acute bleed: from site of L TMA and Heel Debridement (03/25) overnight. Associated with aspirin Plavix for CAD history. Hgb 5.7 on 03/26. 2 units PRBC given.
#Acute blood Loss Anemia secondary to the above:
#Chronic Anemia / Iron Deficiency:
- Vascular ultrasound showed no significant arterial stenosis on the left however Doppler waveforms suggest disease within the distal SFA/popliteal artery and infrapopliteal disease may also be present as per arterial studies. Multiple lymph nodes
were also seen in the left thigh which may be reactive.
- Wound cultures grew MRSA, VRE
- Appreciate ID
- Continue Daptomycin
- Had increased leukocytosis yesterday, with alert but elevated temperatures to 100 F, blood cultures were drawn will continue to follow
- Underwent ultrasound of the left lower extremity did not show any evidence of DVT
- Iron supplementation continue
- Pain control with as needed Dilaudid/Tylenol
- Hemoglobin dropped to 7.2 requiring blood transfusion, given 1 unit of blood
- Continue monitoring hemoglobin daily and transfuse as needed
- Status postdebridement 03/25. Appreciate podiatry, plan for closure/further OR today or further week. Still awaiting pathology results, should see patient today for further evaluation. Discussed with pathology who stated that bone samples need
to decalcify, usually takes 3 to 5 days for samples to come out. Podiatry still awaiting pathology results for further plan.
#Itchy rash:
- Resolved for now, continue monitoring for any development of rash
# History of ASCVD
# Chest Pain
- EKG/troponin negative for any acute process
- Chest pain is chronic. Not above baseline. Most likely musculoskeletal
- Less concern for anything like pulmonary embolism as lungs clear, adequate saturation, normal resp rate
- Continue ASA
- Continue statin
- Continue Ranolazine
- Continue Carvedilol
# DM-I with Hyperglycemia and neuropathy
- A1C = 8.1% in January.
- Diabetes CEMENT PATCHER consulted, input appreciated
- Pt self caths, may need Castillo catheter
- Continue gabapentin, continue duloxetine
# MABER on CKD IIIa
- Continue to monitoring creatinine, has been hovering around 1.4/1.5
- Urine studies show pre-renal cause, likely from hypovolemic state
- Continue monitoring BMP
#GERD
- Continue Pantoprazole
# CIDP
- Continue current meds, will need to arrange for PLEX in outpatient setting once discharged
DVT Prophylaxis: Lovenox
Code Status: Full
Anticipated Discharge: > 48 hours
Subjective/Interval History
-
Date of Service: April 01, 2025
Saw patient this morning, was resting comfortably in his bed. Feeling a lot better from yesterday, reports that his breathing is much improved, and does not feel any fevers like symptoms as he was feeling yesterday. Does not report any worsening
pain, says that his symptoms have improved from yesterday.
Objective Data
-
Labs:
Laboratory Results
04/01/25
07:06
WBC 12.3 H
Hgb 8.3 L
Hct 26.3 L
Plt Count 457 H
Sodium Pending
Potassium Pending
Chloride Pending
Carbon Dioxide Pending
BUN Pending
Creatinine Pending
Glucose Pending
Calcium Pending
Total Bilirubin Pending
AST Pending
ALT Pending
Alkaline Phosphatase Pending
Vital Signs:
Vital Signs
Temp Pulse Resp BP Pulse Ox
97.4 F 83 18 128/71 97
03/31/25 23:00 03/31/25 23:00 03/31/25 23:00 03/31/25 23:00 03/31/25 23:00
I&O
03/31/25 04/01/25 04/02/25
06:59 06:59 06:59
Intake Total 1640 / 1640 240 / 240
Output Total 3050 / 3050 1974 / 1974
Balance -1410 / -1410 -1735 / -1735
Review of Systems
-
History Source: Patient
Constitutional: Reports No Symptoms; Denies Fever or Fatigue
EENT: Reports No Symptoms Reported
Respiratory: Reports No Symptoms
Cardiac: Reports No Symptoms
Abdomen/GI: Reports No Symptoms; Denies Abdominal Pain or Nausea
Genitourinary: Reports Difficulty Voiding (Self caths)
Musculoskeletal: Reports Joint Pain (Left lower extremity pain)
Skin: Reports No Symptoms
Neuro: Reports No Symptoms
Endocrine: Reports No Symptoms
Hematologic / Lymphatic: Reports No Symptoms; Denies Bleeding or Bruising
Allergy / Immunology: Reports No Symptoms
Physical Exam
-
General: Well Developed, Well Nourished, Conversant and Obese
HEENT: Normocephalic and Atraumatic
Respiratory: Clear to Auscultation and Non Labored Respirations; Negative Wheezes, Rales, Rhonchi or Crackles
Cardiac: Regular Rhythm and S1/S2; Negative Murmur or Tachycardic
GI: Soft, Nontender, Nondistended and Normal Bowel Sounds; Negative Organomegaly
Musculoskeletal: No Clubbing, No Cyanosis and Other (R BKA; left hallux and second toe amputation; left foot wrapped in dressing)
Skin: Warm and Dry; Negative Rash or Ulcers
Neuro: Awake, Alert, Oriented and AO x 3
Psych: Calm
Data Reviewed
-
Labs: Labs Reviewed by me, Discussed with Physician and Discussed with Patient
[2025-04-01 07:55] LABS: ALT (SGPT) 12 U/L (0-50); AST (SGOT) 14 U/L (17-59); Albumin 3.2 g/dl (3.5-5.0); Alkaline Phosphatase 83 U/L (38-126); Blood Urea Nitrogen 33 mg/dl (9-20); Calcium 8.8 mg/dl (8.4-10.2); Carbon Dioxide 32 mmol/L (22-30); Chloride 103 mmol/L (98-107); Estimated Creatinine Clearance 91 ml/min; Glucose 122 mg/dl (70-99); Potassium 4.5 mmol/L (3.5-5.1); Sodium 140 mmol/L (135-145); Total Protein 6.6 g/dl (6.3-8.2); eGFR > 60.00
[2025-04-01 08:13] LABS: Glucose - Point of Care 128 mg/dl (70-99)
--- NOTE | 2025-04-01 08:14 | PN.DE.MGMTRT ---
Insulin Management
- -
04/01/2025: Diabetes Management Follow up
Patient admitted from [facility] 03/21 with c/o bleeding L heel wound. PMH type 1 diabetes, R BKA, L toe amputation, recent debridement L heel, Guillian [place], CHF, HTN, CKD, [place], recent admission 01/21 and 03/05 s/p
transmetatarsal L amputation and debridement. Prior to admission was receiving Lantus 30 units BID with Humalog insulin ss AC. A1C on admission 6.9%, Cr 1.2, eGFR > 60 (improved from 8.1%).
Prior to incarceration was living in a senior care per patient he will return there.
Patient is awake, alert and oriented, resting in bed, offers no complaints, able to discuss diabetes care plan at length.
Noted for recurrent episodes of hypoglycemia yesterday, as low as 59.
Yesterday received AC NovoLog 12 units, Lantus 34 units with breakfast and 30 units at HS.
Fasting glucose 122 V, 128 POC. Will reduce Lantus dose to 30 units BID and reduce AC NovoLog to 10 units with low corrective insulin AC.
Will assess glucose trend for need to further adjust insulin today.
Discussed with nurse. Will cont to follow.
Diabetes History
- -
Type of Diabetes: 2 requiring insulin
Pre-Admission Diabetes Regimen
03/31/25 04/01/25
08:31 07:06
Creatinine 1.4 H 1.5 H
Lab Results
Hemoglobin A1c 6.9 % (4.0-5.6) H 03/22/25 06:24
Insulin Pump Settings
IP Diabetes Regimen
03/31/25 03/31/25 03/31/25
08:22 08:31 08:40
Glucose 59 L
POC Glucose 61 L 81
03/31/25 03/31/25 03/31/25
10:41 11:46 13:34
Glucose
POC Glucose 195 H 162 H 94
03/31/25 03/31/25 03/31/25
15:59 17:14 18:33
Glucose
POC Glucose 73 74 68 L
03/31/25 03/31/25 03/31/25
18:47 19:15 20:57
Glucose
POC Glucose 94 117 H 125 H
03/31/25 04/01/25 04/01/25
22:47 04:01 07:06
Glucose 122 H
POC Glucose 117 H 118 H
04/01/25
08:12
Glucose
POC Glucose 128 H
Patient Education
[2025-04-01] MEDS: ASPIR LOW (ENTERIC COATED) 81 MG PO (08:24)
[2025-04-01] MEDS: NOVOLOG FLEXPEN-LOW RESISTANCE SC ×2 (08:24→17:11)
[2025-04-01] MEDS: FEOSOL 325 MG PO ×2 (08:25→20:56)
[2025-04-01] MEDS: NEURONTIN 300 MG PO ×3 (08:25→22:55)
[2025-04-01] MEDS: IMDUR (EXTENDED RELEASE) 60 MG PO (08:25)
[2025-04-01] MEDS: CYMBALTA DELAYED RELEASE 30 MG PO (08:25)
[2025-04-01] MEDS: COREG 25 MG PO ×2 (08:25→20:52)
[2025-04-01] MEDS: DEMADEX 40 MG PO (08:25)
[2025-04-01] MEDS: RANEXA EXTENDED RELEASE 1000 MG PO ×2 (08:26→20:56)
[2025-04-01] MEDS: PLAVIX 75 MG PO (08:26)
[2025-04-01] MEDS: PROTONIX 40 MG PO (08:26)
[2025-04-01] MEDS: NOVOLOG FLEXPEN SC (09:34)
[2025-04-01] MEDS: LANTUS SC (09:34)
[2025-04-01] MEDS: LANTUS 0.3 UNITS SC (10:13)
[2025-04-01] MEDS: NOVOLOG FLEXPEN 10 UNITS SC ×3 (10:13→17:16)
[2025-04-01 11:34] LABS: Glucose - Point of Care 237 mg/dl (70-99)
[2025-04-01] MEDS: NOVOLOG FLEXPEN-LOW RESISTANCE 2 UNITS SC (12:38)
--- NOTE | 2025-04-01 13:33 | PTCARENOTE ---
Addendum entered by Silvina Cuello RN 04/01/25 17:23:
Dressing reinforced again with new 4x4's, ABD's and hemal wrap after pt straight cathed himself and dangled foot over edge of bed. Blood noted all over floor and dressing.
Original Note:
Pt's dressing changed by podiatry. Dressing/ foot noted to be dripping blood onto the sheets through the dressing. Hemal wrap removed and dressing reinforced. will continue to monitor and reinforce as needed.
--- NOTE | 2025-04-01 14:01 | WOUNDNOTE ---
[facility] RN note: Babar texted Dr. Jb Long asking if nursing is the change patient's L foot/heel dressing. Dr. Long responded he changed patient's dressing today and due to the problems he's had with bleeding they's rather leave the clot
as undisturbed as possible. He stated they plan to take patient to OR early next week when path results are in. Podiatry to manage patient's L heel/foot wounds. Will follow peripherally as needed. Nursing can contact podiatry service with
questions/problems regarding patient's foot/heel wounds. Babar texted Silvina an update.
[2025-04-01] MEDS: CUBICIN 16 MG IV (14:31)
--- NOTE | 2025-04-01 14:54 | W.PN.ID1 ---
Date of Service
Date of Service: April 01, 2025
Today's Communication
Continue daptomycin.
Assessment / Plan
# Leukocytosis spontaneously trending down
# Left foot TMA site wound dehiscence with necrosis
# Recent 03/08 s/p L TMA (surgical cure), heel debridement, and calcaneus biopsy (negative osteo)
# AMBER improving
# Allergies: PCN, cephalosporin, meropenem, Vancomycin; tolerated Avyzaz
# MDRO
# Incarcerated
- Blood cx neg's to date
- taken OR 03/25/25 s/p I+D, removal of necrotic bone at amp site, I+D heel wound to subcutaneous tisse; wound vac placed
- OR cx Enterococcus (VRE) and MRSA.
- Bone path: 2nd metatarsal focal acute osteo
- Per Podiatry, for additional surgery
- Continue daptomycin (d8). Hold statin.
Check CK on Friday.
- Follow wbc.
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
Diabetes mellitus
CAD status post PCI
CHF
hx CKD3
Hypertension
Guillain-Potts� syndrome/CIDP, plasma exchange q 2 months
PAD status post right BKA
Left hallux and second toe osteomyelitis status post amputation and debridement of left heel ulcer January 21, 2025
Left foot TMA, I+D left heel wound and bone biopsy of heel Mar 08, 2025
Chief Complaint
-: Leukocytosis and Other (Foot wound)
Subjective / Review of Systems
Still itching. Asking for increase dose of Benadryl at night.
Vital Signs / Physical Exam
Vital Signs
Vital Signs
Temp Pulse Resp BP Pulse Ox
98.1 F 89 18 121/72 93
04/01/25 07:31 04/01/25 07:31 04/01/25 07:31 04/01/25 07:31 04/01/25 08:20
Physical Exam
Constitutional: Comfortable and Chronically Ill
Eyes: Sclera Anicteric
Cardiovascular: Regular Rate and S1/S2
Pulmonary: Clear, Symmetric and Non Labored; Negative Wheezes, Rales, Rhonchi or Coarse
Gastrointestinal: Soft, Non Tender, Non Distended and Normal Bowel Sounds
Genito-Urinary: Negative CVA Tenderness
Extremities: Negative Edema
Musculoskeletal: Negative Spinal Tenderness
Wound: Other (left foot dressing dry)
Neurological: AO x 3
Lines: Other (LUE midline no erythema)
Objective Data
Lab Data
Lab Results
04/01/25 07:06
04/01/25 07:06
Estimated Creat Clear 91 ml/min 04/01/25 07:06
Lactic Acid 0.8 mmol/L (0.7-2.0) 03/25/25 01:16
Total Bilirubin 0.3 mg/dl (0.2-1.3) 04/01/25 07:06
AST 14 U/L (17-59) L 04/01/25 07:06
ALT 12 U/L (0-50) 04/01/25 07:06
Alkaline Phosphatase 83 U/L (38-126) 04/01/25 07:06
Most recent labs reviewed.
Micro Results:
03/31/25 10:51 Blood Culture - Preliminary
Blood/Venous No Growth in 24 hours- Final report to follow
03/31/25 10:22 Blood Culture - Preliminary
Blood/Venous No Growth in 24 hours- Final report to follow
03/25/25 09:33 Blood Culture - Final
Blood/Venous No Growth - Final Report
03/25/25 16:56 Wound Culture - Final
Foot - Left Staph aureus MRSA
Enterococcus faecalis - VRE
Gram Stain - Final
03/25/25 16:56 Anaerobic Culture - Final
Foot - Left NO ANAEROBES ISOLATED
03/25/25 16:52 Wound Culture - Final
Foot - Left Staph aureus MRSA
Enterococcus faecalis - VRE
Gram Stain - Final
03/25/25 16:52 Anaerobic Culture - Final
Foot - Left NO ANAEROBES ISOLATED
03/25/25 01:16 Blood Culture - Final
Blood/Venous No Growth - Final Report
03/25/25 16:52 Fungal Culture - Preliminary
Foot - Left Culture in progress.
Positive cultures are reported as soon as detected.
Final report to follow in four to five weeks.
03/27/25 10:35 Urine Culture - Final
Urine Anna albicans
03/24/25 12:51 Salmonella/Shigella Culture - Final
Feces/Stool No Salmonella, Shigella, Aeromonas or Plesiomonas species
isolated.
Campylobacter Culture - Final
No Campylobacter species isolated.
Shiga Toxin Test - Final
No E. coli Shiga Toxin 1 or 2 detected.
03/21/25 21:00 Blood Culture - Final
Blood/Venous No Growth - Final Report
03/21/25 21:00 Blood Culture - Final
Blood/Venous No Growth - Final Report
03/21/25 21:16 Wound Culture - Final
Foot - Left Enterococcus faecalis - VRE
Anna albicans
Gram Stain - Final
03/24/25 12:53 C. difficile GDH Antigen & Toxins - Final
Feces/Stool C. difficile antigen positive, toxin negative.
Clostridium difficile present, but toxin not detected.
Patient may be a carrier, colonized with nontoxinogenic
strain or the level of toxin in sample is below detection
limits. This information should be used in conjunction with
the patient's clinical history.
03/22/25 13:07 MRSA Screen - Final
Nose No Methicillin Resistant Staphylococcus aureus isolated.
--- NOTE | 2025-04-01 16:15 | W.PN.UPDATE ---
Update Note
Progress Note Update
29 yo M s/p left foot debridement with metatarsal debridement, heel wound debridement. patiend doing well. Plantar flap with adequate perfusion, wound bed granular w/ sanguinous drainage. no purulence, no fluctuance. Post lavage Micro returned
positive for MRSA and Enterococcus. Patho returned this afternoon with focal OM.
- plan for OR friday open TMA revision, tentative plan for NPWT
- local wound care rendered today : adaptic, betadine dsd, andriy. Dressing to remian intact until OR, in effort to preserve clot.
- NWB RLE
- continue offloading precautions, pillow behind calf to have heel and lateral foot in floating position
-Continue abx per ID recs
- will continue to monitor
[2025-04-01] MEDS: LOVENOX SC (17:10)
[2025-04-01 17:16] LABS: Glucose - Point of Care 127 mg/dl (70-99)
[2025-04-01 20:48] LABS: Glucose - Point of Care 91 mg/dl (70-99)
[2025-04-01] MEDS: BENADRYL 50 MG IV (20:58)
[2025-04-01 22:05] LABS: Glucose - Point of Care 115 mg/dl (70-99)
[2025-04-01] MEDS: REMERON 30 MG PO (22:55)
[2025-04-01 23:00] VITALS: BP 122/69
[2025-04-02 00:18] LABS: Glucose - Point of Care 132 mg/dl (70-99)
[2025-04-02] MEDS: LANTUS 0.3 UNITS SC ×3 (00:36→21:37)
--- NOTE | 2025-04-02 04:33 | PTCARENOTE ---
At 1999, pt had 30 units of lantus insulin scheduled; however, the glucose level at that time was noted to be 91. ASSEMBLER KNIFE was promptly notified, advised holding the lantus dose until 0000 (midnight). The ASSEMBLER KNIFE instructed to reassess the pt's glucose at that
time and to administer the insulin only if glucose levels exceeded 100. The pt verbalized concern regarding perceived hypoglycemic symptoms and expressed that their glucose felt as though it was dropping. A repeat glucose was obtained approx 2200,
glucose- 115. At 0000, the pt's glucose was reassessed and found to be 132. Based on ASSEMBLER KNIFE's prior guidance, 30 units of lantus were administered at that time without complication. ASSEMBLER KNIFE updated accordingly. Throughout shift, pt remained hemodynamically
stable, without acute distress. No s/s of hypoglycemia were observed during reassessments. Pt education was reinforced regarding glucose monitoring, insulin timing, and sx reporting.
[2025-04-02 05:18] VITALS: BMI 31.9
[2025-04-02 05:50] LABS: Hematocrit 24.4 % (39.0-52.0); Hemoglobin 7.8 g/dL (13.0-18.0); Mean Corp Hgb Conc. 32.0 g/dL (33.0-37.0); Mean Corpuscular Volume 90.0 fL (80.0-94.0); Platelet Count 468 10^3/uL (130-400); Red Cell Dist. Width 15.0 % (11.5-14.5)
[2025-04-02] MEDS: TYLENOL 1000 MG PO ×4 (05:51→23:21)
[2025-04-02] MEDS: DILAUDID 0.25 MG IV ×3 (06:15→18:25)
[2025-04-02 06:20] LABS: Blood Urea Nitrogen 37 mg/dl (9-20); Calcium 8.5 mg/dl (8.4-10.2); Carbon Dioxide 32 mmol/L (22-30); Chloride 103 mmol/L (98-107); Estimated Creatinine Clearance 86 ml/min; Glucose 116 mg/dl (70-99); Potassium 4.8 mmol/L (3.5-5.1); Sodium 139 mmol/L (135-145); eGFR 59.44
[2025-04-02 07:25] VITALS: BP 123/71
--- NOTE | 2025-04-02 08:38 | W.PN.HOSP.TC ---
Today's Communication/Plan
-
Continue antibiotics
Continue monitoring Castillo output
Monitoring sugar levels
Assessment / Plan
Assessment / Plan
Assessment:
29-year-old with a past medical history significant for diabetes mellitus type 1, ASCVD and multiple lower extremity amputations presented to the [place] ED complaining of left foot pain, swelling and bleeding. He had recently been admitted to
the hospital from 03/05 to 03/18 for osteomyelitis of the left foot. He had undergone amputation of the first 2 digits of the left foot on 01/21/2025. He returned for further hospitalization requiring TMA and heel debridement on 03/08/25 and
completed his in patient course of antibiotics on 03/16. As per the patient, he had banged his foot while leaving the hospital which has continued to cause and worsening bleeding/oozing from the left foot. Patient was admitted to the hospital for
podiatry evaluation regarding any wound concerns however his wound did not show any significant erythema, bleeding or discharge. Does not have any fever or chills, but reported some chest pain with negative workup. Patient is currently postop
day#8 following left foot debridement of metatarsal and heel.
Plan:
#Left foot TMA site with wound dehiscence:
#Acute bleed: from site of L TMA and Heel Debridement (03/25) overnight. Associated with aspirin Plavix for CAD history. Hgb 5.7 on 03/26. 2 units PRBC given.
#Acute blood Loss Anemia secondary to the above:
#Chronic Anemia / Iron Deficiency:
- Vascular ultrasound showed no significant arterial stenosis on the left however Doppler waveforms suggest disease within the distal SFA/popliteal artery and infrapopliteal disease may also be present as per arterial studies. Multiple lymph nodes
were also seen in the left thigh which may be reactive.
- Wound cultures grew MRSA, VRE
- Appreciate ID
- Continue Daptomycin
- Blood cultures did not show any growth
- Underwent ultrasound of the left lower extremity did not show any evidence of DVT
- Iron supplementation continue
- Pain control with as needed Dilaudid/Tylenol
- Continue monitoring hemoglobin daily and transfuse as needed
- Status postdebridement 03/25.
- Pathology results came back yesterday which showed focal acute osteomyelitis and detached fragment of fibrino-purulent exudate
- Following podiatry evaluation yesterday, plan is for OR either Friday or Friday for further surgical intervention. Open TMA revision and negative pressure wound therapy at that time.
#Itchy rash:
- Resolved for now, but itchiness continues. Will give Benadryl every 12 hours as needed
# History of ASCVD
# Chest Pain
- EKG/troponin negative for any acute process
- Chest pain is chronic. Not above baseline. Most likely musculoskeletal
- Less concern for anything like pulmonary embolism as lungs clear, adequate saturation, normal resp rate
- ASA held
- Statin held
- Continue Ranolazine
- Continue Carvedilol
# DM-I with Hyperglycemia and neuropathy
- A1C = 8.1% in January.
- Diabetes [employer] consulted, input appreciated
- Pt self caths, started on Castillo catheter until surgery on Friday/Friday
- Continue gabapentin, continue duloxetine
# AMBER on CKD IIIa
- Continue to monitoring creatinine, has been hovering around 1.4/1.5
- Urine studies show pre-renal cause, likely from hypovolemic state
- Continue monitoring BMP
#GERD
- Continue Pantoprazole
# CIDP
- Continue current meds, will need to arrange for PLEX in outpatient setting once discharged
DVT Prophylaxis: SCD
Code Status: Full
Anticipated Discharge: > 48 hours
Subjective/Interval History
-
Date of Service: April 02, 2025
Patient seen this morning, resting comfortably in his bed. Reports no real changes from yesterday. Was able to discuss plan moving forward including that podiatry is planning for further surgical intervention Friday or Friday. Patient relates
that he has been feeling a lot of itchiness still so would want Benadryl at least twice a day. Overall no other changes, reports no worsening of pain, shortness of breath, chest pain or any febrile like symptoms.
Objective Data
-
Labs:
Laboratory Results
04/02/25
05:39
WBC 12.5 H
Hgb 7.8 L
Hct 24.4 L
Plt Count 468 H
Sodium 139
Potassium 4.8
Chloride 103
Carbon Dioxide 32 H
BUN 37 H
Creatinine 1.6 H
Glucose 116 H
Calcium 8.5
Vital Signs:
Vital Signs
Temp Pulse Resp BP Pulse Ox
98.2 F 84 16 123/71 97
04/02/25 07:25 04/02/25 07:25 04/02/25 07:25 04/02/25 07:25 04/02/25 07:25
I&O
04/01/25 04/02/25 04/03/25
06:59 06:59 06:59
Intake Total 240 / 240
Output Total 1974 700 / 700
Balance -1735 / -1735 -700 / -700
Review of Systems
-
History Source: Patient
Constitutional: Reports No Symptoms; Denies Fever or Fatigue
EENT: Reports No Symptoms Reported
Respiratory: Reports No Symptoms
Cardiac: Reports No Symptoms
Abdomen/GI: Reports No Symptoms; Denies Abdominal Pain or Nausea
Genitourinary: Reports Difficulty Voiding (Castillo catheter placed yesterday)
Musculoskeletal: Reports Joint Pain (Left lower extremity pain)
Skin: Reports No Symptoms
Neuro: Reports No Symptoms
Endocrine: Reports No Symptoms
Hematologic / Lymphatic: Reports No Symptoms; Denies Bleeding or Bruising
Allergy / Immunology: Reports No Symptoms
Physical Exam
-
General: Well Developed, Well Nourished, Comfortable, Conversant and Obese
HEENT: Normocephalic and Atraumatic
Respiratory: Clear to Auscultation and Non Labored Respirations; Negative Wheezes, Rales, Rhonchi or Crackles
Cardiac: Regular Rhythm and S1/S2; Negative Murmur, Calf Tenderness or Tachycardic
GI: Soft, Nontender, Nondistended and Normal Bowel Sounds; Negative Organomegaly
Genito-urinary: No Costovertebral Tender, Clear Urine and Castillo
Musculoskeletal: No Clubbing, No Cyanosis and Other (R BKA; left hallux and second toe amputation; left foot wrapped in dressing)
Skin: Warm and Dry; Negative Rash or Ulcers
Neuro: Awake, Alert, Oriented and AO x 3
Psych: Calm
Data Reviewed
-
Labs: Labs Reviewed by me, Discussed with Physician and Discussed with Patient
[2025-04-02 09:45] LABS: Glucose - Point of Care 145 mg/dl (70-99)
[2025-04-02] MEDS: NOVOLOG FLEXPEN-LOW RESISTANCE SC (09:51)
[2025-04-02] MEDS: CYMBALTA DELAYED RELEASE 30 MG PO (09:51)
[2025-04-02] MEDS: NOVOLOG FLEXPEN 10 UNITS SC ×3 (09:51→18:32)
[2025-04-02] MEDS: FEOSOL 325 MG PO ×2 (09:52→21:28)
[2025-04-02] MEDS: PLAVIX 75 MG PO (09:52)
[2025-04-02] MEDS: IMDUR (EXTENDED RELEASE) 60 MG PO (09:52)
[2025-04-02] MEDS: RANEXA EXTENDED RELEASE 1000 MG PO ×2 (09:52→21:28)
[2025-04-02] MEDS: DEMADEX 40 MG PO (09:53)
[2025-04-02] MEDS: COREG 25 MG PO ×2 (09:53→21:28)
[2025-04-02] MEDS: NEURONTIN 300 MG PO ×3 (10:00→21:38)
[2025-04-02] MEDS: PROTONIX 40 MG PO (10:00)
[2025-04-02 12:23] LABS: Glucose - Point of Care 272 mg/dl (70-99)
[2025-04-02] MEDS: NOVOLOG FLEXPEN-LOW RESISTANCE 3 UNITS SC (12:28)
[2025-04-02] MEDS: CUBICIN 16 MG IV (14:32)
[2025-04-02] MEDS: BENADRYL 50 MG PO (14:34)
[2025-04-02 15:25] VITALS: BP 125/60
[2025-04-02 18:31] LABS: Glucose - Point of Care 164 mg/dl (70-99)
[2025-04-02] MEDS: NOVOLOG FLEXPEN-LOW RESISTANCE 1 UNITS SC (18:32)
[2025-04-02 21:33] LABS: Glucose - Point of Care 199 mg/dl (70-99)
[2025-04-02] MEDS: REMERON 30 MG PO (21:40)
[2025-04-02 23:00] VITALS: BP 126/65
[2025-04-03] MEDS: BENADRYL 50 MG PO (02:46)
[2025-04-03] MEDS: DILAUDID 0.25 MG IV ×4 (02:46→22:23)
[2025-04-03 02:51] VITALS: BMI 30.7
[2025-04-03 05:08] LABS: Hematocrit 21.9 % (39.0-52.0); Hemoglobin 7.0 g/dL (13.0-18.0); Mean Corp Hgb Conc. 32.0 g/dL (33.0-37.0); Mean Corpuscular Volume 90.1 fL (80.0-94.0); Platelet Count 504 10^3/uL (130-400); Red Cell Dist. Width 14.8 % (11.5-14.5)
[2025-04-03 05:28] LABS: Blood Urea Nitrogen 40 mg/dl (9-20); Calcium 8.5 mg/dl (8.4-10.2); Carbon Dioxide 30 mmol/L (22-30); Chloride 102 mmol/L (98-107); Estimated Creatinine Clearance 79 ml/min; Glucose 162 mg/dl (70-99); Potassium 4.8 mmol/L (3.5-5.1); Sodium 138 mmol/L (135-145); eGFR 55.27
[2025-04-03] MEDS: TYLENOL 1000 MG PO ×3 (06:00→18:01)
--- NOTE | 2025-04-03 06:12 | PTCARENOTE ---
Pt refused CHG wipes (midline in right arm). When offered the CHG wipes, pt stated, 'I did it twice.' Nurse clarified, 'Do you mean the brink wipes?' Pt responded, 'The orange ones, right?' and stated, 'I don't want to do it.' Pt refusal
acknowledged. Education provided regarding difference in wipes and purpose. Nursing to pass onto day shift.
[2025-04-03 07:26] VITALS: BP 131/75
[2025-04-03 07:58] LABS: Glucose - Point of Care 151 mg/dl (70-99)
--- NOTE | 2025-04-03 08:00 | W.PN.HOSP.TC ---
Today's Communication/Plan
-
Blood transfusion
Continue antibiotics
Monitor for any further blood loss
Monitor for any fevers
Assessment / Plan
Assessment / Plan
Assessment:
29-year-old with a past medical history significant for diabetes mellitus type 1, ASCVD and multiple lower extremity amputations presented to the [place] ED complaining of left foot pain, swelling and bleeding. He had recently been admitted to
the hospital from 03/05 to 03/18 for osteomyelitis of the left foot. He had undergone amputation of the first 2 digits of the left foot on 01/21/2025. He returned for further hospitalization requiring TMA and heel debridement on 03/08/25 and
completed his in patient course of antibiotics on 03/16. As per the patient, he had banged his foot while leaving the hospital which has continued to cause and worsening bleeding/oozing from the left foot. Patient was admitted to the hospital for
podiatry evaluation regarding any wound concerns however his wound did not show any significant erythema, bleeding or discharge. Does not have any fever or chills, but reported some chest pain with negative workup. Patient is currently postop
day#8 following left foot debridement of metatarsal and heel.
Plan:
#Left foot TMA site with wound dehiscence:
#Acute bleed: from site of L TMA and Heel Debridement (03/25) overnight. Associated with aspirin Plavix for CAD history. Hgb 5.7 on 03/26. 2 units PRBC given.
#Acute blood Loss Anemia secondary to the above:
#Chronic Anemia / Iron Deficiency:
- Vascular ultrasound showed no significant arterial stenosis on the left however Doppler waveforms suggest disease within the distal SFA/popliteal artery and infrapopliteal disease may also be present as per arterial studies. Multiple lymph nodes
were also seen in the left thigh which may be reactive.
- Wound cultures grew MRSA, VRE
- Appreciate ID
- Continue Daptomycin
- Blood cultures did not show any growth
- Underwent ultrasound of the left lower extremity did not show any evidence of DVT
- Iron supplementation continue
- Pain control with as needed Dilaudid/Tylenol
- Continue monitoring hemoglobin daily and transfuse as needed
- Status postdebridement 03/25.
- Pathology results came back which showed focal acute osteomyelitis and detached fragment of fibrino-purulent exudate
- Following podiatry evaluation, plan is for OR either Friday or Friday for further surgical intervention. Open TMA revision and negative pressure wound therapy at that time.
- Hemoglobin fell to 7.0 today, will give a unit of blood.
#Itchy rash:
- Resolved for now, but itchiness continues. Will give Benadryl every 12 hours as needed.
- P.o. Benadryl not working for him, will continue IV Benadryl
# History of ASCVD
# Chest Pain
- EKG/troponin negative for any acute process
- Chest pain is chronic. Not above baseline. Most likely musculoskeletal
- ASA held
- Statin held
- Continue Ranolazine
- Continue Carvedilol
# DM-I with Hyperglycemia and neuropathy
- A1C = 8.1% in January.
- Diabetes [employer] consulted, input appreciated
- Pt self caths, started on Castillo catheter until surgery on Friday/Friday
- Continue gabapentin, continue duloxetine
# AMBER on CKD IIIa
- Continue to monitoring creatinine, has been hovering around 1.4/1.5
- Urine studies show pre-renal cause, likely from hypovolemic state
- Increased to 1.7 today, will monitor following transfusion of blood which should help creatinine levels
- Continue monitoring BMP
#GERD
- Continue Pantoprazole
# CIDP
- Continue current meds, will need to arrange for PLEX in outpatient setting once discharged
DVT Prophylaxis: SCDs
Full Code
Anticipated Discharge: > 48 hours
Subjective/Interval History
-
Date of Service: April 03, 2025
Patient seen this morning, no acute complaints at this time. Says that he has been bleeding from his left lower extremity more recently. Looking forward to getting surgery possibly tomorrow. Says he prefers IV Benadryl because it helps with his
itchiness a lot more than p.o. Benadryl so would like to be converted. Overall no chest pain, shortness of breath, difficulty breathing at this time.
Objective Data
-
Labs:
Laboratory Results
04/03/25
04:53
WBC 16.1 H
Hgb 7.0 L
Hct 21.9 L
Plt Count 504 H
Sodium 138
Potassium 4.8
Chloride 102
Carbon Dioxide 30
BUN 40 H
Creatinine 1.7 H
Glucose 162 H
Calcium 8.5
Vital Signs:
Vital Signs
Temp Pulse Resp BP Pulse Ox
99.1 F 95 18 126/65 94
04/02/25 23:00 04/02/25 23:00 04/02/25 23:00 04/02/25 23:00 04/02/25 23:00
I&O
04/02/25 04/03/25 04/04/25
06:59 06:59 06:59
Intake Total 1440 / 1440
Output Total 700 / 700 1800 / 1800
Balance -700 / -700 -360 / -360
Review of Systems
-
History Source: Patient
Constitutional: Reports No Symptoms; Denies Fever or Fatigue
EENT: Reports No Symptoms Reported
Respiratory: Reports No Symptoms
Cardiac: Reports No Symptoms
Abdomen/GI: Reports No Symptoms; Denies Abdominal Pain or Nausea
Genitourinary: Reports Difficulty Voiding (Castillo catheter continues)
Musculoskeletal: Reports Joint Pain (Left lower extremity pain)
Skin: Reports No Symptoms
Neuro: Reports No Symptoms
Endocrine: Reports No Symptoms
Hematologic / Lymphatic: Reports No Symptoms; Denies Bleeding or Bruising
Allergy / Immunology: Reports No Symptoms
Physical Exam
-
General: Well Developed, Well Nourished, Comfortable, Conversant and Obese
HEENT: Normocephalic and Atraumatic
Respiratory: Clear to Auscultation and Non Labored Respirations; Negative Wheezes, Rales, Rhonchi or Crackles
Cardiac: Regular Rhythm and S1/S2; Negative Murmur, Calf Tenderness or Tachycardic
GI: Soft, Nontender, Nondistended and Normal Bowel Sounds; Negative Organomegaly
Genito-urinary: No Costovertebral Tender, Clear Urine and Castillo
Musculoskeletal: No Clubbing, No Cyanosis and Other (R BKA; left hallux and second toe amputation; left foot wrapped in dressing, not bleeding at this time)
Skin: Warm and Dry; Negative Rash or Ulcers
Neuro: Awake, Alert, Oriented, AO x 3 and No Sensory Deficits
Psych: Calm
Data Reviewed
-
Labs: Labs Reviewed by me, Discussed with Physician, Discussed with Nurse and Discussed with Patient
[2025-04-03] MEDS: LANTUS 0.3 UNITS SC (09:30)
[2025-04-03] MEDS: NEURONTIN 300 MG PO ×3 (09:32→21:00)
[2025-04-03] MEDS: RANEXA EXTENDED RELEASE 1000 MG PO ×2 (09:33→20:47)
[2025-04-03] MEDS: CYMBALTA DELAYED RELEASE 30 MG PO (09:33)
[2025-04-03] MEDS: IMDUR (EXTENDED RELEASE) 60 MG PO (09:34)
[2025-04-03] MEDS: PROTONIX 40 MG PO (09:34)
[2025-04-03] MEDS: PLAVIX 75 MG PO (09:34)
[2025-04-03] MEDS: COREG 25 MG PO ×2 (09:35→20:58)
[2025-04-03] MEDS: NOVOLOG FLEXPEN-LOW RESISTANCE 1 UNITS SC ×2 (09:35→17:59)
[2025-04-03] MEDS: FEOSOL 325 MG PO ×2 (09:36→20:47)
[2025-04-03] MEDS: DEMADEX 40 MG PO (09:36)
[2025-04-03] MEDS: NOVOLOG FLEXPEN 10 UNITS SC ×3 (09:36→18:00)
[2025-04-03 13:06] LABS: Glucose - Point of Care 136 mg/dl (70-99)
[2025-04-03] MEDS: NOVOLOG FLEXPEN-LOW RESISTANCE SC (14:26)
[2025-04-03 15:19] VITALS: BP 118/62
[2025-04-03 15:29] VITALS: BP 118/62
[2025-04-03] MEDS: CUBICIN 16 MG IV (15:37)
[2025-04-03 15:50] VITALS: BP 118/62
[2025-04-03 16:48] LABS: Glucose - Point of Care 155 mg/dl (70-99)
[2025-04-03 18:02] VITALS: BP 127/65
[2025-04-03] MEDS: BENADRYL 50 MG IV (18:19)
[2025-04-03 20:48] LABS: Glucose - Point of Care 71 mg/dl (70-99)
[2025-04-03] MEDS: REMERON 30 MG PO (21:00)
[2025-04-03] MEDS: LANTUS SC (21:09)
[2025-04-03] MEDS: LANTUS 0.15 UNITS SC (21:10)
[2025-04-03 23:00] VITALS: BP 136/82
[2025-04-04] VITALS (13 sets, daily range): BP systolic 89–132; BP diastolic 51–79; BMI 31.8
[2025-04-04] MEDS: TYLENOL 1000 MG PO ×3 (00:13→18:37)
[2025-04-04 03:34] LABS: Glucose - Point of Care 134 mg/dl (70-99)
[2025-04-04] MEDS: DILAUDID 0.25 MG IV ×3 (05:25→21:57)
--- NOTE | 2025-04-04 08:00 | W.PN.HOSP.TC ---
Addendum entered and electronically signed by Reginald Araya MD 04/04/25 21:36:
Attending Addendum-
I saw and evaluated the patient. I reviewed the resident�s note and agree with findings and plan as documented in the resident�s note. Sub: complains of pain in left foot controlled with narcotics. Denies fevresc hills. Complains if diarrhea. Full
12 point ROS reviewed and negative except as documented Exam: Vitals reviewed in chart GEN-NAD heart RRR lungs clear abd soft ND ND pos BS. LE - right BKA left TMA brink in place draing clear yellow urine
Plan:
#Left foot TMA wound dehiscence and osteomyelitis
#h/o Left TMA on 03/08
- Wound cultures-MRSA and VRE
- Appreciate ID
- Continue Daptomycin #11, monitor CPK
- Blood cultures NGTD
- Pain control
- Continue monitoring hemoglobin daily and transfuse as needed
- Status post debridement 03/25
- Pathology- showed focal acute osteomyelitis and detached fragment of fibrino-purulent exudate
- for OR 04/04 - Open TMA revision and wound debridement by pods
#Acute bleed: from site of L TMA and Heel Debridement 03/25 Associated with aspirin Plavix for CAD history
#Acute blood Loss Anemia secondary to the above
#Chronic Anemia / Iron Deficiency
- hold asa, cont plavix
- ctm CBC
- tx for HB < 7
# CAD with Stents
- cont plavix coreg
# HTN- cont imdur and coreg
# Diarrhea
- check c diff if continues
# Volume Overload
- now euvolemic
- on torsemide
- ECHO WNL
- would consider dcing
# DM-I with neuropathy
- A1C 8.1->6.9
- Diabetes TESTING MANAGER on board, input appreciated
- cont L 30BID home, N 10u q ac added
- cont duloxetine and gabapentin
# Urinary Retention
- Pt self caths
- cont brink for now, DC post op
# AMBER
- slow improvement
- unclear if CKD
- Urine studies show pre-renal cause, likely from hypovolemic state
- Continue monitoring BMP
#GERD
- Continue Pantoprazole
# CIDP
- Continue current meds, will need to arrange for PLEX in outpatient setting once discharged
DVT Prophylaxis: SCDs
Full Code
Time spent coordinating care, review of plan of care with resident, personally reviewed records in EMR, med rec, consults, notes, labs, radiology, d/w nursing, pods � 53 mins
Original Note:
Today's Communication/Plan
-
Patient slated to go to the operating room for a TMA of the second metatarsal. Depending on how he tolerates the procedure and his recovery process we will move forward with treatment plan.
Assessment / Plan
Assessment / Plan
Assessment/Plan:
-Left foot TMA site with wound dehiscence:
-Acute bleed: from site of L TMA and Heel Debridement (03/25) overnight. Associated with aspirin Plavix for CAD history. Hgb 5.7 on 03/26. 2 units PRBC given.
-Acute blood Loss Anemia secondary to the above:
Vascular ultrasound showed no significant arterial stenosis on the left however Doppler waveforms suggest disease within the distal SFA/popliteal artery and infrapopliteal disease may also be present as per arterial studies. Multiple lymph nodes
were also seen in the left thigh which may be reactive.
Wound cultures grew MRSA, VRE
Appreciate ID recommendations
Continue Daptomycin
Blood cultures did not show any growth
Underwent ultrasound of the left lower extremity did not show any evidence of DVT
Iron supplementation continue
Continue monitoring hemoglobin daily and transfuse as needed
Status postdebridement 03/25.
Pathology results came back which showed focal acute osteomyelitis and detached fragment of fibrino-purulent exudate
Patient slated to go to the operating room on 04/04/2025
-Itchy rash:
Continue IV Benadryl
- History of ASCVD
- Chest pain:
EKG/troponin negative for any acute process
Chest pain is chronic. Not above baseline. Most likely musculoskeletal
ASA held
Statin held
Continue Ranolazine
Continue Carvedilol
Type 1 diabetes with Hyperglycemia and neuropathy: Monitoring
A1C = 8.1% in January.
Diabetes TESTING MANAGER consulted, input appreciated
Pt self caths, started on Brink catheter until surgery on Friday/Friday
Continue gabapentin, continue duloxetine
-AMBER on CKD IIIa: Unresolved
Continue to monitoring creatinine, has been hovering around 1.4/1.5
Urine studies show pre-renal cause, likely from hypovolemic state
Continued elevated creatinine level at 1.6 on 04/04/2025
Continue monitoring BMP
-GERD
Continue Pantoprazole
-Chronic inflammatory demyelinating polyneuropathy:
Continue current meds, will need to arrange for PLEX in outpatient setting once discharged
FULL CODE STATUS
Stress Ulcer Prophylaxis: Pantoprazole
DVT Prophylaxis: Clopidogrel and SCDs
Imaging:
Procedures:
Anticipated Discharge: > 48 hours
Subjective/Interval History
-
Date of Service: April 04, 2025
Met with the patient at the bedside. Overall he is doing well and is a bit anxious prior to his upcoming surgery. He has some questions about how the procedure may go. Supportive counseling provided at the bedside. Patient inquired about pain
control postoperatively and states that his current pain management is adequate prior to the procedure.
Objective Data
-
Labs:
Laboratory Results
04/04/25
09:21
WBC 12.6 H
Hgb 8.1 L
Hct 24.9 L
Plt Count 508 H
Sodium 137
Potassium 4.1
Chloride 102
Carbon Dioxide 29
BUN 32 H
Creatinine 1.6 H
Glucose 148 H
Calcium 8.2 L
Vital Signs:
Vital Signs
Temp Pulse Resp BP Pulse Ox
98.1 F 94 12 104/61 100
04/04/25 18:30 04/04/25 18:30 04/04/25 18:30 04/04/25 18:30 04/04/25 18:30
I&O
04/03/25 04/04/25 04/05/25
06:59 06:59 06:59
Intake Total 1440 / 1440 740 / 740 300 / 300
Output Total 1800 / 1800 1350 / 1350
Balance -360 / -360 740 / 740 -1050 / -1050
Review of Systems
-
History Source: Patient
Constitutional: Reports No Symptoms
EENT: Reports No Symptoms Reported
Respiratory: Reports No Symptoms
Cardiac: Reports No Symptoms
Abdomen/GI: Reports No Symptoms
Genitourinary: Reports No Symptoms
Musculoskeletal: Reports Muscle Pain (Left foot)
Skin: Reports No Symptoms
Neuro: Reports No Symptoms
Endocrine: Reports No Symptoms
Hematologic / Lymphatic: Reports No Symptoms
Physical Exam
-
General: Well Developed, Well Nourished and Obese
HEENT: Normocephalic and Atraumatic
Respiratory: Clear to Auscultation
Cardiac: Regular Rhythm and S1/S2
GI: Soft, Nontender, Nondistended and Normal Bowel Sounds
Musculoskeletal: Other (Right below the knee amputation, left hallux toe amputation, left foot wrapped)
Skin: Warm, Dry, Lesions (Lesions on left foot) and Other (No bleeding at this time)
Neuro: Awake, Alert, Oriented and AO x 3
Psych: Calm
--- NOTE | 2025-04-04 08:13 | PN.DE.MGMTRT ---
Insulin Management
- -
04/03/2025: Diabetes Management Follow up
Patient admitted from [facility] 03/21 with c/o bleeding L heel wound. PMH type 1 diabetes, R BKA, L toe amputation, recent debridement L heel, Guillian [place], CHF, HTN, CKD, MA, recent admission 01/21 and 03/05 s/p
transmetatarsal L amputation and debridement. Prior to admission was receiving Lantus 30 units BID with Humalog insulin ss AC. A1C on admission 6.9%, Cr 1.2, eGFR > 60 (improved from 8.1%).
Prior to incarceration was living in a care home per patient he will return there.
Patient is awake, alert and oriented, resting in bed, offers no complaints, able to discuss diabetes care plan.
NPO for OR today. Yesterday received AC NovoLog 10 units, Lantus 30 units with breakfast and reduced dose of 15 units at 2/2 NPO status.
3AM glucose 134 V, 128 POC. Will make no changes to current regimen: Lantus 30 units BID and AC NovoLog 10 units with low corrective insulin AC.
Will assess glucose trend for need to further adjust insulin today.
Discussed with nurse. Will cont to follow.
Diabetes History
- -
Type of Diabetes: 1
Pre-Admission Diabetes Regimen
Lab Results
Hemoglobin A1c 6.9 % (4.0-5.6) H 03/22/25 06:24
Insulin Pump Settings
IP Diabetes Regimen
04/03/25 04/03/25 04/03/25
13:05 16:46 20:47
POC Glucose 136 H 155 H 71
04/04/25
03:33
POC Glucose 134 H
Meal type: Dinner
Meal type: Lunch
Meal type: Breakfast
Amount consumed: 100%
Amount consumed: 100%
Amount consumed: 95%
Patient Education
[2025-04-04] MEDS: NOVOLOG FLEXPEN SC ×3 (08:27→18:45)
[2025-04-04] MEDS: RANEXA EXTENDED RELEASE 1000 MG PO ×2 (08:53→21:52)
[2025-04-04] MEDS: IMDUR (EXTENDED RELEASE) 60 MG PO (08:54)
[2025-04-04] MEDS: COREG 25 MG PO ×2 (08:54→21:55)
[2025-04-04] MEDS: PLAVIX 75 MG PO (08:54)
[2025-04-04] MEDS: PROTONIX 40 MG PO (08:54)
[2025-04-04] MEDS: NEURONTIN 300 MG PO ×3 (08:54→21:55)
[2025-04-04] MEDS: CYMBALTA DELAYED RELEASE 30 MG PO (08:54)
[2025-04-04] MEDS: FEOSOL 325 MG PO ×2 (08:55→21:55)
[2025-04-04] MEDS: DEMADEX 40 MG PO (08:59)
[2025-04-04] MEDS: NOVOLOG FLEXPEN-LOW RESISTANCE SC ×3 (09:07→18:41)
[2025-04-04 09:09] LABS: Glucose - Point of Care 140 mg/dl (70-99)
[2025-04-04] MEDS: LANTUS 0.3 UNITS SC (09:10)
[2025-04-04 09:30] LABS: Hematocrit 24.9 % (39.0-52.0); Hemoglobin 8.1 g/dL (13.0-18.0); Mean Corp Hgb Conc. 32.5 g/dL (33.0-37.0); Mean Corpuscular Volume 90.2 fL (80.0-94.0); Platelet Count 508 10^3/uL (130-400); Red Cell Dist. Width 14.8 % (11.5-14.5)
--- NOTE | 2025-04-04 10:08 | W.PN.ID1 ---
Date of Service
Date of Service: April 04, 2025
Today's Communication
Continue daptomycin
Assessment / Plan
# Leukocytosis trending down
# Left foot TMA site wound dehiscence with necrosis
# Recent 03/08 s/p L TMA (surgical cure), heel debridement, and calcaneus biopsy (negative osteo)
# AMBER improving
# Allergies: PCN, cephalosporin, meropenem, Vancomycin; tolerated Avyzaz
# MDRO
# Incarcerated
- Blood cx neg's to date
- taken OR 03/25/25 s/p I+D, removal of necrotic bone at amp site, I+D heel wound to subcutaneous tisse; wound vac placed
- OR cx Enterococcus (VRE) and MRSA.
- 03/25 Bone path: 2nd metatarsal focal acute osteo
- Per Podiatry, for open TMA revision today
- Continue daptomycin (d11). Hold statin.
CK pending
- Follow wbc.
Conditions [employer]
Diabetes mellitus
CAD status post PCI
CHF
hx CKD3
Hypertension
Guillain-Potts� syndrome/CIDP, plasma exchange q 2 months
PAD status post right BKA
Left hallux and second toe osteomyelitis status post amputation and debridement of left heel ulcer January 21, 2025
Left foot TMA, I+D left heel wound and bone biopsy of heel Mar 08, 2025
Chief Complaint
-: Leukocytosis and Other (Foot wound)
Subjective / Review of Systems
No new complaints.
Vital Signs / Physical Exam
Vital Signs
Vital Signs
Temp Pulse Resp BP Pulse Ox
98 F 81 12 132/74 98
04/04/25 07:00 04/04/25 08:54 04/04/25 07:00 04/04/25 08:54 04/04/25 07:00
Physical Exam
Constitutional: Comfortable and Chronically Ill
Eyes: Sclera Anicteric
Cardiovascular: Regular Rate and S1/S2
Pulmonary: Clear, Symmetric and Non Labored; Negative Wheezes, Rales, Rhonchi or Coarse
Gastrointestinal: Soft, Non Tender, Non Distended and Normal Bowel Sounds
Genito-Urinary: Negative CVA Tenderness
Extremities: Negative Edema
Musculoskeletal: Negative Spinal Tenderness
Wound: Other (left foot dressing dry)
Neurological: AO x 3
Lines: Other (LUE midline no erythema)
Objective Data
Lab Data
Lab Results
04/04/25 09:21
Estimated Creat Clear 79 ml/min 04/03/25 04:53
Lactic Acid 0.8 mmol/L (0.7-2.0) 03/25/25 01:16
Total Bilirubin 0.3 mg/dl (0.2-1.3) 04/01/25 07:06
AST 14 U/L (17-59) L 04/01/25 07:06
ALT 12 U/L (0-50) 04/01/25 07:06
Alkaline Phosphatase 83 U/L (38-126) 04/01/25 07:06
Most recent labs reviewed.
Micro Results:
03/31/25 10:51 Blood Culture - Preliminary
Blood/Venous No Growth in 72 hours- Final report to follow
03/31/25 10:22 Blood Culture - Preliminary
Blood/Venous No Growth in 72 hours- Final report to follow
03/25/25 09:33 Blood Culture - Final
Blood/Venous No Growth - Final Report
03/25/25 16:56 Wound Culture - Final
Foot - Left Staph aureus MRSA
Enterococcus faecalis - VRE
Gram Stain - Final
03/25/25 16:56 Anaerobic Culture - Final
Foot - Left NO ANAEROBES ISOLATED
03/25/25 16:52 Wound Culture - Final
Foot - Left Staph aureus MRSA
Enterococcus faecalis - VRE
Gram Stain - Final
03/25/25 16:52 Anaerobic Culture - Final
Foot - Left NO ANAEROBES ISOLATED
03/25/25 01:16 Blood Culture - Final
Blood/Venous No Growth - Final Report
03/25/25 16:52 Fungal Culture - Preliminary
Foot - Left Culture in progress.
Positive cultures are reported as soon as detected.
Final report to follow in four to five weeks.
03/27/25 10:35 Urine Culture - Final
Urine Anna albicans
03/24/25 12:51 Salmonella/Shigella Culture - Final
Feces/Stool No Salmonella, Shigella, Aeromonas or Plesiomonas species
isolated.
Campylobacter Culture - Final
No Campylobacter species isolated.
Shiga Toxin Test - Final
No E. coli Shiga Toxin 1 or 2 detected.
03/21/25 21:00 Blood Culture - Final
Blood/Venous No Growth - Final Report
03/21/25 21:00 Blood Culture - Final
Blood/Venous No Growth - Final Report
03/21/25 21:16 Wound Culture - Final
Foot - Left Enterococcus faecalis - VRE
Anna albicans
Gram Stain - Final
03/24/25 12:53 C. difficile GDH Antigen & Toxins - Final
Feces/Stool C. difficile antigen positive, toxin negative.
Clostridium difficile present, but toxin not detected.
Patient may be a carrier, colonized with nontoxinogenic
strain or the level of toxin in sample is below detection
limits. This information should be used in conjunction with
the patient's clinical history.
03/22/25 13:07 MRSA Screen - Final
Nose No Methicillin Resistant Staphylococcus aureus isolated.
[2025-04-04 10:13] LABS: Blood Urea Nitrogen 32 mg/dl (9-20); Calcium 8.2 mg/dl (8.4-10.2); Carbon Dioxide 29 mmol/L (22-30); Chloride 102 mmol/L (98-107); Estimated Creatinine Clearance 86 ml/min; Glucose 148 mg/dl (70-99); Potassium 4.1 mmol/L (3.5-5.1); Sodium 137 mmol/L (135-145); eGFR 59.44
[2025-04-04] MEDS: TYLENOL PO (12:00)
[2025-04-04 12:07] LABS: Glucose - Point of Care 130 mg/dl (70-99)
[2025-04-04] MEDS: BENADRYL 50 MG IV (12:20)
--- NOTE | 2025-04-04 12:47 | CM ---
Chart reviewed. Care ongoing
Per Podiatry, for open TMA revision today
Cont IV abx
[facility]
Report: [phone]

Plan: [facility] when medically stable
[2025-04-04 16:12] LABS: Glucose - Point of Care 78 mg/dl (70-99)
[2025-04-04] MEDS: CUBICIN IV (16:24)
--- NOTE | 2025-04-04 17:02 | W.PN.SURGUPD ---
Surgical Update
Surgical Update
29 yo M s/p L TMA revision and heel wound debridement, packed open
-Dressings can be reinforced as needed
-Continue antibiotics per ID recs
-2x pathology (metatarsals, and clearing fragment) 1x post washout culture
-Surgical plans pending pathology/culture
-Strict NWB to LLE
[2025-04-04 17:04] LABS: Glucose - Point of Care 107 mg/dl (70-99)
[2025-04-04 17:09] LABS: Glucose - Point of Care 111 mg/dl (70-99)
[2025-04-04] MEDS: DILAUDID 0.5 MG IV ×2 (17:11→17:24)
[2025-04-04 18:41] LABS: Glucose - Point of Care 81 mg/dl (70-99)
--- NOTE | 2025-04-04 19:00 | PTCARENOTE ---
pt returned from OR for LLE debridement at 1830. pt site is andriy wrapped with some bloody drainage. pt currently resting in bed comfortably and eating dinner.
[2025-04-04 21:18] LABS: Glucose - Point of Care 213 mg/dl (70-99)
[2025-04-04] MEDS: REMERON 30 MG PO (21:55)
--- NOTE | 2025-04-04 22:08 | OR.RPT ---
Operative Report
Operative Report
Operative Report
Patient: Sang Anderson

Date of Surgery: 04/04/2025
Surgeon: Sander Montez DPM
Assistants: Sander Long DPM
Anesthesia: General anesthesia
Preoperative Diagnosis:
Left transmetatarsal amputation site wound dehiscence with infection
Left heel diabetic wound down to muscle player
Postoperative Diagnosis:
Same as preoperative
Procedure:
Debridement of infected left transmetatarsal amputation site including removal of nonviable bone CPT 90459 Modifier-58
Excisional debridement of left heel wound down to subcutaneous tissue CPT 55938 Modifier-58
Hemostasis: Anatomic dissection
Estimated Blood Loss: <50 mL
Specimens:
Intraoperative wound culture (post-pulse lavage)
Left metatarsals
Left 2nd metatarsal clearing fragment
Complications: None
Indications for Surgery:
The patient is a 29-year-old male with a history of left transmetatarsal amputation and concomitant heel debridement performed on 03/08/2025. He was discharged but subsequently re-presented to [facility] with wound dehiscence and clinical
signs of infection at the transmetatarsal amputation site. He then underwent TMA debridement on 03/25/2025. Post lavage cultures yielded bacteria and bone pathology was positive for osteomyelitis. He has been on intravenous antibiotics. Given the
extent of soft tissue compromise and concern for ongoing deep infection with osteomyelitis based on previous pathology, transmetatarsal amputation revision and heel debridement was indicated. The risks, benefits, and alternatives were discussed with
the patient, and informed consent was obtained.
Procedure in Detail:
The patient was brought to the operating room and placed supine on the operating table. General anesthesia was induced. The left foot was prepped and draped in the usual sterile manner. A surgical timeout was performed.
Attention was directed to the left transmetatarsal amputation site. The wound was explored and multiplane fascial exploration was carried out through the amputation site. Dissection was carried through skin, subcutaneous tissue, and down to fascial
layers. Extensive necrotic and nonviable soft tissue was identified and excised. No gurinder purulent drainage was encountered.
All nonviable bone was then identified and removed using a sagittal saw, including distal segments from all 5 metatarsals, which were sent to pathology for evaluation. A clearing fragment of metatarsal bone was obtained from the 2nd metatarsal.
Residual bone appeared firm and viable following debridement. Following bone and soft tissue debridement, the wound was irrigated with copious pulsatile lavage. A culture was obtained post-lavage to assess for residual infection.
The wound was inspected thoroughly, and no further necrotic or infected tissue remained. Hemostasis was achieved with electrocautery and vessel ligature.
Attention was then directed to the left heel wound. The wound was sharply debrided using a #15 blade and curette down to subcutaneous tissue and muscle layer. Devitalized skin and soft tissue were removed. No evidence of active infection was present
in the heel wound. There was a stable eschar noted to the posterior heel which remained intact. Irrigation with sterile saline was performed, and a sterile dressing was applied.
The patient tolerated the procedure well and was transported to recovery in stable condition. He will continue to receive antibiotics per ID recommendations. We will follow his cultures and pathology results. Will continue with local wound care and
monitor his wound. Will require rigid blood sugar control and wound to be free from infection and necrosis prior to delayed primary closure.
[2025-04-04 22:41] LABS: Glucose - Point of Care 243 mg/dl (70-99)
[2025-04-04 22:50] LABS: Hematocrit 23.0 % (39.0-52.0); Hemoglobin 7.5 g/dL (13.0-18.0)
[2025-04-04] MEDS: LR 1000 IV (23:20)
[2025-04-05] VITALS (8 sets, daily range): BP systolic 97–125; BP diastolic 56–71; BMI 30.7
[2025-04-05] MEDS: TYLENOL 1000 MG PO ×4 (00:39→23:47)
[2025-04-05] MEDS: LANTUS 0.3 UNITS SC ×3 (00:39→20:52)
--- NOTE | 2025-04-05 02:15 | PTCARENOTE ---
Sx site noted to have copious amts of sanguinous drainage. Pt appeared pale and diaphoretic. Pt c/o 'dizziness'. BS was 243. Discussed with [employer] SAMPLER extrusion engineer S Ximena. Hgb draw noted to be 7.5 from 8.1 in the AM. Lantus was given as ordered after said
discussion. No orders for blood product placed. As per AIR SAMPLER the site was redressed as per orders. Hemal wrap removed and ABDs applied and rewrapped with Hemal wrap. At this time the new dsg remains CDI. Pt is sleeping comfortably. Will recheck BS @
0300hrs. No s/s of acute distress at this time. Will continue to monitor.
[2025-04-05 03:37] LABS: Glucose - Point of Care 259 mg/dl (70-99)
[2025-04-05] MEDS: DILAUDID 0.25 MG IV ×3 (04:24→21:08)
[2025-04-05] MEDS: BENADRYL 50 MG IV ×2 (04:24→21:07)
--- NOTE | 2025-04-05 06:47 | W.PN.UPDATE ---
Update Note
Progress Note Update
~ 22:30 Pt post op Left transmetatarsal amputation site wound dehiscence with infection and left heel diabetic wound down to muscle layer. Pt w/significant drainage since arrival to floor ~ 19:00. Vital signs stable. Patient does look pale and is
slightly diaphoretic.
Ordered IV fluid bolus. Serial Hgb ordered, dressing reinforced. All anticoagulants on hold, including plavix. TT to podiatry, Dr. Montez, to update on event, asked to ensure leg is elevated and continue to reinforce dressing.
~ 6 am Pt is better, bleeding is much less and vital signs are stable. Hgb 8.1 -> 7.5, awaiting am labs for next Hgb. Pt already type and crossed, consent in chart, if blood products are required.
[2025-04-05 07:14] LABS: Glucose - Point of Care 169 mg/dl (70-99)
--- NOTE | 2025-04-05 07:19 | W.PN.HOSP.TC ---
Addendum entered and electronically signed by Reginald Araya MD 04/05/25 21:10:
Attending Addendum-
I saw and evaluated the patient. I reviewed the resident�s note and agree with findings and plan as documented in the resident�s note. Sub: ON-post op wound draining profusely was transfused prbc. complains of pain in left foot and 'itchiness'
requesting more frequent Benadryl. Denies fevers chills. Complains if diarrhea. Full 12 point ROS reviewed and negative except as documented Exam: Vitals reviewed in chart GEN-NAD heart RRR lungs clear abd soft ND ND pos BS. LE - right BKA left TMA
bandaged brink in place draining concentrated urine
Plan:
#Left foot TMA wound dehiscence and osteomyelitis
#h/o Left TMA on 03/08
- Wound cultures-MRSA and VRE
- Appreciate ID
- Continue Daptomycin #12, monitor CPK
- Blood cultures NGTD
- Pain control
- Status post debridement 03/25
- Pathology 03/25- showed focal acute osteomyelitis and detached fragment of fibrino-purulent exudate
- OR 04/04 - Debridement of infected left transmetatarsal amputation site including removal of nonviable bone
-Excisional debridement of left heel wound down to subcutaneous tissue
- path sent 04/04-P
- strict NWB
#Acute bleed: from site of L TMA and Heel Debridement ssociated with aspirin Plavix for CAD history
#Acute blood Loss Anemia secondary to the above
#Chronic Anemia / Iron Deficiency
- hold asa, hold plavix (need to find out when stents were placed)
- ctm CBC
- tx 1 unit PRBC 04/05
- tx for HB < 7
# CAD with Stents
- hold plavix cont coreg
# HTN- cont imdur and coreg
# Hypovolemic/Dehydration
- start IVF
- DC torsemide
- ECHO WNL
# DM-I with neuropathy
- A1C 8.1->6.9
- Diabetes FOOD CART ATTENDANT on board, input appreciated
- cont L 30BID home, N 10u q ac added
- cont duloxetine and gabapentin
# Urinary Retention
- Pt self caths
- cont brink for now, DC in am if able
# AMBER
- worsening
- unclear if CKD
- Urine studies show pre-renal cause, likely from hypovolemic state
- restart IVF
- dc torsemide
- Continue monitoring BMP
#GERD
- Continue Pantoprazole
# CIDP
- Continue current meds, will need to arrange for PLEX in outpatient setting once discharged
DVT Prophylaxis: SCDs
Full Code
Dispo eventual DC back to [facility]
Time spent coordinating care, review of plan of care with resident, personally reviewed records in EMR, med rec, consults, notes, labs, radiology, d/w nursing, co � 51 mins
Original Note:
Today's Communication/Plan
-
Patient was given an IV fluid bolus late last evening because he looked pale. Anticoagulants were held. Continue to hold anticoagulants. Hemoglobin was stable at 7.5.
Morning labs showed a hemoglobin of 6.6 and the patient received 1 PRBC. Additional IV fluid support given
Holding torsemide
Assessment / Plan
Assessment / Plan
Assessment/Plan:
-Left foot TMA site with wound dehiscence:
-History of left foot TMA on 03/08:
-Acute bleed: from site of L TMA and Heel Debridement (03/25) overnight. Associated with aspirin Plavix for CAD history. Hgb 5.7 on 03/26. 2 units PRBC given.
-Acute blood Loss Anemia secondary to the above:
Vascular ultrasound showed no significant arterial stenosis on the left however Doppler waveforms suggest disease within the distal SFA/popliteal artery and infrapopliteal disease may also be present as per arterial studies. Multiple lymph nodes
were also seen in the left thigh which may be reactive.
Wound cultures grew MRSA, VRE
Appreciate ID recommendations
Continue Daptomycin (currently on day 12 on 04/05/2025)
Blood cultures did not show any growth
Underwent ultrasound of the left lower extremity did not show any evidence of DVT
Iron supplementation continue
Continue monitoring hemoglobin daily and transfuse as needed
Status postdebridement 03/25.
Pathology results came back which showed focal acute osteomyelitis and detached fragment of fibrino-purulent exudate
Patient underwent his open TMA revision and wound debridement on 04/04 -there was significant drainage postoperatively
Holding anticoagulants postoperatively
Continue antibiotics as per ID recommendations
Podiatry continues to follow and depending on pathology and culture of the surgical specimens care plan will be adjusted.
Podiatry recommends nonweightbearing to the left lower extremity and continued elevation of the extremity on 2-3 pillows
-Itchy rash:
Continue IV Benadryl
-Diarrhea:
Check stool sample for C. difficile if loose stool continues
- Urinary retention:
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
Patient self caths
Brink catheter has been discontinued. Patient will be able to self cath as he usually does this in the outpatient setting
- History of ASCVD
- Chest pain:
EKG/troponin negative for any acute process
ASA held
Statin held
Continue Ranolazine
Continue Carvedilol
Type 1 diabetes with Hyperglycemia and neuropathy: Monitoring
A1C = 8.1% in January.
Diabetes FOOD CART ATTENDANT consulted, recommendations appreciated
Continue gabapentin, continue duloxetine
-AMBER on CKD IIIa: Unresolved
Continue to monitoring creatinine, has been hovering around 1.4/1.5
Urine studies show pre-renal cause, likely from hypovolemic state
Continued elevated creatinine level at 1.6 on 04/04/2025
Continue monitoring BMP.
Holding torsemide
IV fluid support
-GERD
Continue Pantoprazole
-Chronic inflammatory demyelinating polyneuropathy:
Continue current meds, will need to arrange for PLEX in outpatient setting once discharged
FULL CODE STATUS
Stress Ulcer Prophylaxis: Pantoprazole
DVT Prophylaxis: Clopidogrel and SCDs
Imaging:
-Left foot x-ray conducted on 03/21/2025:
Status post amputation at the level of the first through fifth proximal metatarsal bones.
No radiographic evidence for osteomyelitis.
- Bilateral lower extremity arterial ultrasound exam conducted on 03/23/2025:
1. Ankle-brachial indices and toe brachial indices could not be measured due to prior amputations.
2. No focal significant arterial stenosis demonstrated on the left side on duplex imaging. Spectral Doppler waveform analysis is suggestive of disease within the distal SFA/popliteal artery. Infrapopliteal disease may also be present.
3. Multiple lymph nodes are seen within the left thigh, which may be reactive.
-Peripheral vascular ultrasound of the left lower extremity conducted on 03/31/2025:
No evidence of DVT of the left lower extremity.
Procedures:
Debridement of infected left transmetatarsal amputation site including removal of nonviable bone
Excisional debridement of left heel wound down to subcutaneous tissue
Anticipated Discharge: > 48 hours
Subjective/Interval History
-
Date of Service: April 05, 2025
Met with patient at the bedside. Overall, he is stable and feels uncomfortable in his left leg. He hopes to have his pain medications adjusted. When I walked into the room he was sleeping in bed and I woke him up to talk to him. Kind and
pleasant in conversation. Patient also inquires about adjusting his Benadryl dose as he feels itchiness because he says that he is allergic to the current antibiotic. Patient does not feel short of breath nor does he have any chest pain. No
dizziness, nausea, vomiting, or diarrhea. Patient ate his breakfast completely.
Objective Data
-
Labs:
Laboratory Results
04/04/25 04/05/25 04/05/25
22:39 03:00 07:14
WBC Pending
Hgb 7.5 L Cancelled Pending
Hct 23.0 L Cancelled Pending
Plt Count Pending
Sodium Pending
Potassium Pending
Chloride Pending
Carbon Dioxide Pending
BUN Pending
Creatinine Pending
Glucose Pending
Calcium Pending
Total Bilirubin Pending
AST Pending
ALT Pending
Alkaline Phosphatase Pending
04/05/25 04/05/25 04/05/25
09:00 15:00 21:00
WBC
Hgb Pending Pending Pending
Hct Pending Pending Pending
Plt Count
Sodium
Potassium
Chloride
Carbon Dioxide
BUN
Creatinine
Glucose
Calcium
Total Bilirubin
AST
ALT
Alkaline Phosphatase
Vital Signs:
Vital Signs
Temp Pulse Resp BP Pulse Ox
98.6 F 89 14 118/60 100
04/05/25 03:30 04/05/25 03:30 04/05/25 03:30 04/05/25 03:30 04/05/25 03:30
I&O
04/04/25 04/05/25 04/06/25
06:59 06:59 06:59
Intake Total 740 / 740 300 / 300
Output Total 1350 / 1350
Balance 740 / 740 -1050 / -1050
Review of Systems
-
History Source: Patient
Constitutional: Reports No Symptoms
EENT: Reports No Symptoms Reported
Respiratory: Reports No Symptoms
Cardiac: Reports No Symptoms
Abdomen/GI: Reports No Symptoms
Breast: Reports No Symptoms
Genitourinary: Reports No Symptoms
Musculoskeletal: Reports Muscle Pain (Left lower limb)
Skin: Reports Sores (Left lower limb)
Neuro: Reports No Symptoms
Endocrine: Reports No Symptoms
Hematologic / Lymphatic: Reports No Symptoms
Allergy / Immunology: Reports Other (Itchiness without any visible signs of rash or urticaria)
Physical Exam
-
General: Well Developed, Well Nourished, Comfortable, Conversant and Obese
HEENT: Normocephalic and Atraumatic
Respiratory: Clear to Auscultation and Non Labored Respirations; Negative Wheezes, Rales, Rhonchi or Crackles
Cardiac: Regular Rhythm and S1/S2; Negative Murmur, Calf Tenderness or Tachycardic
GI: Soft, Nontender, Nondistended and Normal Bowel Sounds; Negative Organomegaly
Genito-urinary: No Costovertebral Tender, Clear Urine and Brink
Musculoskeletal: No Clubbing, No Cyanosis and Other (R BKA; left hallux and second toe amputation; left foot wrapped in dressing, not bleeding at this time)
Skin: Warm and Dry; Negative Rash or Ulcers
Neuro: Awake, Alert, Oriented, AO x 3 and No Sensory Deficits
Psych: Calm
--- NOTE | 2025-04-05 08:23 | PN.DE.MGMTRT ---
Insulin Management
- -
04/05/2025: Diabetes Management Follow up
Patient admitted from [facility] 03/21 with c/o bleeding L heel wound. PMH type 1 diabetes, R BKA, L toe amputation, recent debridement L heel, [place], CHF, HTN, CKD, MA, recent admission 01/21 and 03/05 s/p
transmetatarsal L amputation and debridement. Prior to admission was receiving Lantus 30 units BID with Humalog insulin ss AC. A1C on admission 6.9%, Cr 1.2, eGFR > 60 (improved from 8.1%).
Prior to incarceration was living in a jail per patient he will return there.
Patient is awake, alert and oriented, resting in bed, offers no complaints, able to discuss diabetes care plan.
POD 1 s/p L transmetatarsal amputation and L heel debridement. Yesterday was NPO received no novolog, did receive HS Lantus 30 units. Had Increased drainage overnight Hgb 7.5.
3AM glucose 259,fasting glucose today 169. Will make no changes to current regimen: Lantus 30 units BID and AC NovoLog 10 units with low corrective insulin AC.
Will assess glucose trend for need to further adjust insulin today.
Discussed with nurse. Will cont to follow.
Diabetes History
- -
Type of Diabetes: 1
Pre-Admission Diabetes Regimen
04/04/25
09:21
Creatinine 1.6 H
Lab Results
Hemoglobin A1c 6.9 % (4.0-5.6) H 03/22/25 06:24
Insulin Pump Settings
IP Diabetes Regimen
04/04/25 04/04/25 04/04/25
09:06 09:21 12:06
Glucose 148 H
POC Glucose 140 H 130 H
04/04/25 04/04/25 04/04/25
16:10 17:02 17:08
Glucose
POC Glucose 78 107 H 111 H
04/04/25 04/04/25 04/04/25
18:39 21:16 22:40
Glucose
POC Glucose 81 213 H 243 H
04/05/25 04/05/25
03:35 07:10
Glucose
POC Glucose 259 H 169 H
Patient Education
--- NOTE | 2025-04-05 08:45 | W.PN.UPDATE ---
Update Note
Progress Note Update
29 yo M s/p L TMA revision and heel wound debridement, packed open. Patient with sanguinous drainage overnight. Oozing from lateral operative site, After packing with surgifoam and holding extended pressure oozing reduced. Compression wet to dry
betadine pressing applied.
- hold AC, dressings to remain intact, reinforce prn
- will follow AM hgb
-Continue antibiotics per ID recs
-2x pathology (metatarsals, and clearing fragment) 1x post washout culture
-Surgical plans pending pathology/culture
-Strict NWB to LLE
- continue elevation of LLE on 2-3 pillows
[2025-04-05] MEDS: DEMADEX 40 MG PO (09:12)
[2025-04-05] MEDS: PROTONIX 40 MG PO (09:13)
[2025-04-05] MEDS: NEURONTIN 300 MG PO ×3 (09:13→20:44)
[2025-04-05] MEDS: FEOSOL 325 MG PO ×2 (09:13→20:44)
[2025-04-05] MEDS: CYMBALTA DELAYED RELEASE 30 MG PO (09:13)
[2025-04-05] MEDS: RANEXA EXTENDED RELEASE 1000 MG PO ×2 (09:14→20:44)
[2025-04-05] MEDS: IMDUR (EXTENDED RELEASE) PO (09:16)
[2025-04-05] MEDS: COREG PO (09:22)
[2025-04-05] MEDS: NOVOLOG FLEXPEN 10 UNITS SC ×3 (09:22→18:03)
[2025-04-05] MEDS: NOVOLOG FLEXPEN-LOW RESISTANCE 1 UNITS SC (09:23)
[2025-04-05 09:29] LABS: Hematocrit 21.3 % (39.0-52.0); Hemoglobin 7.0 g/dL (13.0-18.0)
[2025-04-05 09:33] LABS: ALT (SGPT) 11 U/L (0-50); AST (SGOT) 11 U/L (17-59); Albumin 3.0 g/dl (3.5-5.0); Alkaline Phosphatase 78 U/L (38-126); Blood Urea Nitrogen 43 mg/dl (9-20); Calcium 8.4 mg/dl (8.4-10.2); Carbon Dioxide 28 mmol/L (22-30); Chloride 99 mmol/L (98-107); Estimated Creatinine Clearance 45 ml/min; Glucose 162 mg/dl (70-99); Potassium 5.0 mmol/L (3.5-5.1); Sodium 135 mmol/L (135-145); Total Protein 6.3 g/dl (6.3-8.2); eGFR 27.96
[2025-04-05 10:30] LABS: Hematocrit 20.3 % (39.0-52.0); Hemoglobin 6.6 g/dL (13.0-18.0); Mean Corp Hgb Conc. 32.5 g/dL (33.0-37.0); Mean Corpuscular Volume 89.8 fL (80.0-94.0); Platelet Count 531 10^3/uL (130-400); Red Cell Dist. Width 15.0 % (11.5-14.5)
--- NOTE | 2025-04-05 11:02 | W.PN.ID1 ---
Date of Service
Date of Service: April 05, 2025
Today's Communication
Continue daptomycin.
Assessment / Plan
# Leukocytosis - post-op
# Left foot TMA site wound dehiscence with necrosis
- Blood cx neg
- OR 03/25/25 s/p I+D, removal of necrotic bone at amp site, I+D heel wound to subcutaneous tisse; wound vac placed
OR cx Enterococcus (VRE) and MRSA.
03/25 Bone path: 2nd metatarsal focal acute osteo
- 04/04/25 s/p open TMA revision today, heel wound debridement.
OR cx pending.
Bone path pending
- Continue daptomycin (d12). Hold statin.
Follow weekly CK.
- Follow wbc.
# Recent 03/08 s/p L TMA (surgical cure), heel debridement, and calcaneus biopsy (negative osteo)
# AMBER
# Allergies: PCN, cephalosporin, meropenem, Vancomycin; tolerated Avyzaz
# MDRO
# Incarcerated
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
Diabetes mellitus
CAD status post PCI
CHF
hx CKD3
Hypertension
Guillain-Potts� syndrome/CIDP, plasma exchange q 2 months
PAD status post right BKA
Left hallux and second toe osteomyelitis status post amputation and debridement of left heel ulcer January 21, 2025
Left foot TMA, I+D left heel wound and bone biopsy of heel Mar 08, 2025
Chief Complaint
-: Leukocytosis and Other (Foot wound)
Subjective / Review of Systems
Had post-op foot bleeding last night. No complaints.
Vital Signs / Physical Exam
Vital Signs
Vital Signs
Temp Pulse Resp BP Pulse Ox
98.3 F 94 16 97/56 100
04/05/25 07:00 04/05/25 07:00 04/05/25 07:00 04/05/25 07:00 04/05/25 07:00
Physical Exam
Constitutional: Comfortable and Chronically Ill
Eyes: Sclera Anicteric
Cardiovascular: Regular Rate and S1/S2
Pulmonary: Clear
Gastrointestinal: Soft, Non Tender, Non Distended and Normal Bowel Sounds
Genito-Urinary: Negative CVA Tenderness
Wound: Other (left foot dressing dry)
Neurological: AO x 3
Lines: Other (LUE midline no erythema)
Objective Data
Lab Data
Lab Results
04/05/25 08:39
Estimated Creat Clear 45 ml/min 04/05/25 08:39
Lactic Acid 0.8 mmol/L (0.7-2.0) 03/25/25 01:16
Total Bilirubin 0.3 mg/dl (0.2-1.3) 04/05/25 08:39
AST 11 U/L (17-59) L 04/05/25 08:39
ALT 11 U/L (0-50) 04/05/25 08:39
Alkaline Phosphatase 78 U/L (38-126) 04/05/25 08:39
Most recent labs reviewed.
Micro Results:
03/31/25 10:51 Blood Culture - Final
Blood/Venous No Growth - Final Report
03/31/25 10:22 Blood Culture - Final
Blood/Venous No Growth - Final Report
04/04/25 16:30 Wound Culture - Pending
Foot - Left Gram Stain - Preliminary
04/04/25 16:30 Anaerobic Culture - Pending
Foot - Left
03/25/25 16:52 Fungal Culture - Preliminary
Foot - Left Culture in progress.
Positive cultures are reported as soon as detected.
Final report to follow in four to five weeks.
03/25/25 09:33 Blood Culture - Final
Blood/Venous No Growth - Final Report
03/25/25 16:56 Wound Culture - Final
Foot - Left Staph aureus MRSA
Enterococcus faecalis - VRE
Gram Stain - Final
03/25/25 16:56 Anaerobic Culture - Final
Foot - Left NO ANAEROBES ISOLATED
03/25/25 16:52 Wound Culture - Final
Foot - Left Staph aureus MRSA
Enterococcus faecalis - VRE
Gram Stain - Final
03/25/25 16:52 Anaerobic Culture - Final
Foot - Left NO ANAEROBES ISOLATED
03/25/25 01:16 Blood Culture - Final
Blood/Venous No Growth - Final Report
03/27/25 10:35 Urine Culture - Final
Urine Anna albicans
03/24/25 12:51 Salmonella/Shigella Culture - Final
Feces/Stool No Salmonella, Shigella, Aeromonas or Plesiomonas species
isolated.
Campylobacter Culture - Final
No Campylobacter species isolated.
Shiga Toxin Test - Final
No E. coli Shiga Toxin 1 or 2 detected.
03/21/25 21:00 Blood Culture - Final
Blood/Venous No Growth - Final Report
03/21/25 21:00 Blood Culture - Final
Blood/Venous No Growth - Final Report
03/21/25 21:16 Wound Culture - Final
Foot - Left Enterococcus faecalis - VRE
Anna albicans
Gram Stain - Final
03/24/25 12:53 C. difficile GDH Antigen & Toxins - Final
Feces/Stool C. difficile antigen positive, toxin negative.
Clostridium difficile present, but toxin not detected.
Patient may be a carrier, colonized with nontoxinogenic
strain or the level of toxin in sample is below detection
limits. This information should be used in conjunction with
the patient's clinical history.
03/22/25 13:07 MRSA Screen - Final
Nose No Methicillin Resistant Staphylococcus aureus isolated.
[2025-04-05 11:49] LABS: Glucose - Point of Care 202 mg/dl (70-99)
[2025-04-05] MEDS: NOVOLOG FLEXPEN-LOW RESISTANCE 2 UNITS SC (12:15)
--- NOTE | 2025-04-05 14:55 | PTCARENOTE ---
pt tolerated infusion 1 unit PRBC, per resident cancel 1500 H&H, recheck @2100. no change in physical assessment. dressing remains CDI
[2025-04-05] MEDS: CUBICIN 16 MG IV (15:15)
[2025-04-05 17:07] LABS: Glucose - Point of Care 124 mg/dl (70-99)
[2025-04-05] MEDS: NOVOLOG FLEXPEN-LOW RESISTANCE SC (17:24)
[2025-04-05] MEDS: NSS 1000 IV (17:29)
[2025-04-05] MEDS: TYLENOL PO (17:34)
--- NOTE | 2025-04-05 18:16 | PTCARENOTE ---
IVF started, pt requesting pain medicine. Midline leaking. fluids paused, iv team contacted. Dilaudid which was already removed from Pyxis- subsequently wasted with 2nd RN d/t delay with VAT
[2025-04-05] MEDS: REMERON 30 MG PO (20:44)
[2025-04-05 20:51] LABS: Glucose - Point of Care 167 mg/dl (70-99)
[2025-04-05] MEDS: COREG 25 MG PO (20:55)
[2025-04-05 22:53] LABS: Glucose - Point of Care 53 mg/dl (70-99)
[2025-04-05 23:33] LABS: Glucose - Point of Care 82 mg/dl (70-99)
[2025-04-05 23:53] LABS: Glucose - Point of Care 117 mg/dl (70-99)
[2025-04-06] VITALS (7 sets, daily range): BP systolic 112–130; BP diastolic 59–72; BMI 31.0
[2025-04-06 00:20] LABS: Hematocrit 20.0 % (39.0-52.0); Hemoglobin 6.6 g/dL (13.0-18.0)
--- NOTE | 2025-04-06 00:33 | W.PN.UPDATE ---
Update Note
Progress Note Update
hgb 6.6, stable Vs, will order 1 unit of PRBC's.
[2025-04-06 01:52] LABS: Glucose - Point of Care 158 mg/dl (70-99)
[2025-04-06 03:57] LABS: Glucose - Point of Care 158 mg/dl (70-99)
--- NOTE | 2025-04-06 04:07 | PTCARENOTE ---
1 unit PRBCs given as ordered for Hgb 6.6. Initial VS @ 0216 98.2 oral, HR 90, RR 18, 130/72 lying utilizing LUE. 15min VS 0231 98.2 oral, HR 89, RR 16, 114/69 lying utilizing LUE. @ 15min tommy pt was w/o complaint and noted sleeping. Infusion rate
@ 125/hr. No s/s of distress assessed. Will continue to monitor.
[2025-04-06] MEDS: TYLENOL 1000 MG PO ×3 (05:41→17:12)
[2025-04-06] MEDS: DILAUDID 0.25 MG IV ×3 (05:42→17:15)
--- NOTE | 2025-04-06 07:39 | W.PN.HOSP.TC ---
Addendum entered and electronically signed by Reginald Araya MD 04/06/25 21:25:
Attending Addendum-
I saw and evaluated the patient. I reviewed the resident�s note and agree with findings and plan as documented in the resident�s note. Sub: ovenright continued to drain profusely was transfused addition unit prbc. complains of pain in left foot.
Denies fevers chills. Complains if diarrhea. Full 12 point ROS reviewed and negative except as documented Exam: Vitals reviewed in chart GEN-NAD heart RRR lungs clear abd soft ND ND pos BS. LE - right BKA left TMA bandaged - NPB
Plan:
#Left foot TMA wound dehiscence and osteomyelitis
#h/o Left TMA on 03/08
- Wound culture 03/25-MRSA and VRE
- wound cx 04/04-Enterobacter
- Appreciate ID
- Continue Daptomycin #13, monitor CPK
- add fortaz/avibactam #1 for Enterobacter likely MDR
- Blood cultures NGTD
- Pain control
- Status post debridement 03/25
- Pathology 03/25- showed focal acute osteomyelitis and detached fragment of fibrino-purulent exudate
- OR 04/04 - Debridement of infected left transmetatarsal amputation site including removal of nonviable bone
- Excisional debridement of left heel wound down to subcutaneous tissue
- path sent 04/04-P
- strict NWB
- may benefit from wound vac if able
#Acute bleed: from site of L TMA and Heel Debridement ssociated with aspirin Plavix for CAD history
#Acute blood Loss Anemia secondary to the above
#Chronic Anemia / Iron Deficiency
- hold asa, hold plavix (need to find out when stents were placed)
- ctm CBC q 12
- tx 1 unit PRBC 04/05, 04/06
- tx for HB < 7
# CAD with Stents
- hold plavix cont coreg
# HTN- cont imdur and coreg
# Hypovolemic/Dehydration
- cont IVF
- DC torsemide
- ECHO WNL
# DM-I with neuropathy
- A1C 8.1->6.9
- Diabetes ENGRAVER on board, input appreciated
- cont L 30 BID home, N 10u q ac added
- cont duloxetine and gabapentin
# Urinary Retention
- Pt self caths
- DC brink
# AMBER
- improved
- unclear if CKD
- Urine studies show pre-renal cause, likely from hypovolemic state
- cont IVF
- dc torsemide
- Continue monitoring BMP
#GERD
- Continue Pantoprazole
# CIDP
- Continue current meds, will need to arrange for PLEX in outpatient setting once discharged
DVT Prophylaxis: SCDs
Full Code
Dispo eventual DC back to [facility]
Time spent coordinating care, review of plan of care with resident, personally reviewed records in EMR, med rec, consults, notes, labs, radiology, d/w nursing, [place] pharmacy� 52 mins
Original Note:
Today's Communication/Plan
-
Patient will be on Lantus 30 at bedtime with NovoLog 10 units as per recommendations from diabetic nurse practitioner
Ceftazidime/avibactam 1250 mg IV every 8 hours added by infectious diseases
Patient received 1 PRBC at 2:16 in the morning on 04/06/2025 for hemoglobin of 6.6 - hgb stable at 7.3
Assessment / Plan
Assessment / Plan
Assessment/Plan:
-Left foot TMA site with wound dehiscence:
-History of left foot TMA on 03/08:
-Acute bleed: from site of L TMA and Heel Debridement (03/25) overnight. Associated with aspirin Plavix for CAD history. Hgb 5.7 on 03/26. 2 units PRBC given.
-Acute blood Loss Anemia secondary to the above:
Vascular ultrasound showed no significant arterial stenosis on the left however Doppler waveforms suggest disease within the distal SFA/popliteal artery and infrapopliteal disease may also be present as per arterial studies. Multiple lymph nodes
were also seen in the left thigh which may be reactive.
Wound cultures grew MRSA, VRE )
Blood cultures did not show any growth
Underwent ultrasound of the left lower extremity did not show any evidence of DVT
Iron supplementation continue
Continue monitoring hemoglobin daily and transfuse as needed
Status postdebridement 03/25.
Pathology results came back which showed focal acute osteomyelitis and detached fragment of fibrino-purulent exudate
Patient underwent his open TMA revision and wound debridement on 04/04 -there was significant drainage postoperatively
Holding anticoagulants postoperatively
Continue antibiotics as per ID recommendations
Podiatry continues to follow and depending on pathology and culture of the surgical specimens care plan will be adjusted.
Podiatry recommends nonweightbearing to the left lower extremity and continued elevation of the extremity on 2-3 pillows
POD #2 on 04/06/25
Appreciate ID recommendations
Continue Daptomycin (currently on day 13 on 04/06/2025)
Ceftazidime/avibactam 1250 mg started
-Itchy rash:
Continue IV Benadryl
-Diarrhea:
Check stool sample for C. difficile if loose stool continues
- Urinary retention:
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
Patient self caths
Brink catheter has been discontinued. Patient will be able to self cath as he usually does this in the outpatient setting
- History of ASCVD
- Chest pain:
EKG/troponin negative for any acute process
ASA held
Statin held
Continue Ranolazine
Continue Carvedilol
Type 1 diabetes with Hyperglycemia and neuropathy: Monitoring
A1C = 8.1% in January.
Diabetes ENGRAVER consulted, recommendations appreciated
Diabetic nurse practitioner recommended 28 units Lantus the evening of 04/06/2025
After initial Lantus dose we will continue the patient on Lantus 30 at bedtime with NovoLog 10 units.
Continue gabapentin, continue duloxetine
-AMBER on CKD IIIa: Unresolved
Continue to monitoring creatinine, has been hovering around 1.4/1.5
Urine studies show pre-renal cause, likely from hypovolemic state
Continued elevated creatinine level at 1.6 on 04/04/2025
Continue monitoring BMP.
Holding torsemide
IV fluid support
-GERD
Continue Pantoprazole
-Chronic inflammatory demyelinating polyneuropathy:
Continue current meds, will need to arrange for PLEX in outpatient setting once discharged
FULL CODE STATUS
Stress Ulcer Prophylaxis: Pantoprazole
DVT Prophylaxis: Clopidogrel and SCDs
Imaging:
-Left foot x-ray conducted on 03/21/2025:
Status post amputation at the level of the first through fifth proximal metatarsal bones.
No radiographic evidence for osteomyelitis.
- Bilateral lower extremity arterial ultrasound exam conducted on 03/23/2025:
1. Ankle-brachial indices and toe brachial indices could not be measured due to prior amputations.
2. No focal significant arterial stenosis demonstrated on the left side on duplex imaging. Spectral Doppler waveform analysis is suggestive of disease within the distal SFA/popliteal artery. Infrapopliteal disease may also be present.
3. Multiple lymph nodes are seen within the left thigh, which may be reactive.
-Peripheral vascular ultrasound of the left lower extremity conducted on 03/31/2025:
No evidence of DVT of the left lower extremity.
Procedures:
Debridement of infected left transmetatarsal amputation site including removal of nonviable bone
Excisional debridement of left heel wound down to subcutaneous tissue
Anticipated Discharge: 24 - 48 hours
Subjective/Interval History
-
Date of Service: April 06, 2025
Met with patient at the bedside. He states that he feels like he 'has been hit by a truck' but believes he is recovering well from is procedure but has concerns about the ongoing occasional blood dripping from the surgical wound. He asked about the
discontinuation of the brink catheter and is aware that he should resume self cathing as needed. Educated provided about infection risks of chronic brink catheter use.
Objective Data
-
Labs:
Labs
04/06/25 08:05
04/06/25 08:05
Vital Signs:
Vital Signs
Temp Pulse Resp BP Pulse Ox
97.9 F 87 16 115/70 100
04/06/25 05:38 04/06/25 05:38 04/06/25 05:38 04/06/25 05:38 04/05/25 23:44
I&O
04/05/25 04/06/25 04/07/25
06:59 06:59 06:59
Intake Total 300 / 300 2900 / 2900
Output Total 1350 / 1350 800 / 800
Balance -1050 / -1050 2100 / 2100
Review of Systems
-
History Source: Patient
Constitutional: Reports No Symptoms
EENT: Reports No Symptoms Reported
Respiratory: Reports No Symptoms
Cardiac: Reports No Symptoms
Abdomen/GI: Reports No Symptoms
Breast: Reports No Symptoms
Genitourinary: Reports No Symptoms
Musculoskeletal: Reports Muscle Pain (Left lower limb)
Skin: Reports Sores (Left lower limb)
Neuro: Reports No Symptoms
Endocrine: Reports No Symptoms
Hematologic / Lymphatic: Reports No Symptoms
Physical Exam
-
General: Well Developed, Well Nourished, Comfortable, Conversant and Obese
HEENT: Normocephalic and Atraumatic
Respiratory: Clear to Auscultation and Non Labored Respirations; Negative Wheezes, Rales, Rhonchi or Crackles
Cardiac: Regular Rhythm and S1/S2; Negative Murmur, Calf Tenderness or Tachycardic
GI: Soft, Nontender, Nondistended and Normal Bowel Sounds; Negative Organomegaly
Genito-urinary: No Costovertebral Tender, Clear Urine and Brink
Musculoskeletal: No Clubbing, No Cyanosis and Other (R BKA; left hallux and second toe amputation; left foot wrapped in dressing, not bleeding at this time)
Skin: Warm and Dry; Negative Rash or Ulcers
Neuro: Awake, Alert, Oriented, AO x 3 and No Sensory Deficits
Psych: Calm
--- NOTE | 2025-04-06 07:49 | PN.DE.MGMTRT ---
Insulin Management
- -
04/06/2025: Diabetes Management Follow up
Patient admitted from [facility] 03/21 with c/o bleeding L heel wound. PMH type 1 diabetes, R BKA, L toe amputation, recent debridement L heel, Guillian Stevinson, CHF, HTN, CKD, [place], recent admission 01/21 and 03/05 s/p
transmetatarsal L amputation and debridement. Prior to admission was receiving Lantus 30 units BID with Humalog insulin ss AC. A1C on admission 6.9%, Cr 1.2, eGFR > 60 (improved from 8.1%).
Prior to incarceration was living in a halfway per patient he will return there.
Patient is awake, alert , sleepy but arouses easy, resting in bed, offers no complaints, able to discuss diabetes care plan.
POD # 2 s/p L transmetatarsal amputation and L heel debridement, hgb 7.3 today, planned for transfusion this morning.
Noted for an episode of hypoglycemia at HS to 53, recovered after treatment, otherwise, glucose range was 124 to 202
Will give reduced dose of Lantus 28 units this morning and reduced dose of NovoLog 8 units at dinner time today.
Cont Lantus 30 units @hs and NovoLog 10 units with breakfast and lunch
Will assess glucose trend for need to further adjust insulin today.
Discussed with nurse. Will cont to follow.
Diabetes History
- -
Type of Diabetes: 1
Pre-Admission Diabetes Regimen
04/05/25
08:39
Creatinine 3.0 H
Lab Results
Hemoglobin A1c 6.9 % (4.0-5.6) H 03/22/25 06:24
Insulin Pump Settings
IP Diabetes Regimen
04/05/25 04/05/25 04/05/25
08:39 11:46 17:05
Glucose 162 H
POC Glucose 202 H 124 H
04/05/25 04/05/25 04/05/25
20:48 22:51 23:31
Glucose
POC Glucose 167 H 53 L* 82
04/05/25 04/06/25 04/06/25
23:51 01:50 03:55
Glucose
POC Glucose 117 H 158 H 158 H
Meal type: Dinner
Meal type: Lunch
Meal type: Breakfast
Amount consumed: 100%
Amount consumed: 100%
Amount consumed: 100%
Patient Education
[2025-04-06 08:05] LABS: Glucose - Point of Care 157 mg/dl (70-99)
[2025-04-06 08:22] LABS: Hematocrit 21.6 % (39.0-52.0); Hemoglobin 7.3 g/dL (13.0-18.0); Mean Corp Hgb Conc. 33.8 g/dL (33.0-37.0); Mean Corpuscular Volume 87.4 fL (80.0-94.0); Platelet Count 433 10^3/uL (130-400); Red Cell Dist. Width 14.7 % (11.5-14.5)
--- NOTE | 2025-04-06 08:53 | W.PN.ID1 ---
Date of Service
Date of Service: April 06, 2025
Today's Communication
Add ceftaz/avibactam.
Assessment / Plan
# Leukocytosis
# Left foot TMA site wound dehiscence with necrosis
- Blood cx neg
- OR 03/25/25 s/p I+D, removal of necrotic bone at amp site, I+D heel wound to subcutaneous tisse; wound vac placed
OR cx Enterococcus (VRE) and MRSA.
03/25 Bone path: 2nd metatarsal focal acute osteo
- 04/04/25 s/p open TMA revision today, heel wound debridement.
OR cx: Enterobacter cloacae - suspect MDR as previous
Bone path pending
Per Podiatry, more surgery pending bone path result.
- Continue daptomycin (d13). Hold statin.
Follow weekly CK.
- Add ceftazidime/avibactam 1.25g IV q8h.
- Follow wbc.
# Recent 03/08 s/p L TMA (surgical cure), heel debridement, and calcaneus biopsy (negative osteo)
# AMBER - abx renally adjusted
# Allergies: PCN, cephalosporin, meropenem, Vancomycin; tolerated Avyzaz
# MDRO
# Incarcerated
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
Diabetes mellitus
CAD status post PCI
CHF
hx CKD3
Hypertension
Guillain-Potts� syndrome/CIDP, plasma exchange q 2 months
PAD status post right BKA
Left hallux and second toe osteomyelitis status post amputation and debridement of left heel ulcer January 21, 2025
Left foot TMA, I+D left heel wound and bone biopsy of heel Mar 08, 2025
Chief Complaint
-: Leukocytosis and Other (Foot wound)
Subjective / Review of Systems
Stable.
Vital Signs / Physical Exam
Vital Signs
Vital Signs
Temp Pulse Resp BP Pulse Ox
97.9 F 87 16 115/70 100
04/06/25 05:38 04/06/25 05:38 04/06/25 05:38 04/06/25 05:38 04/05/25 23:44
Physical Exam
Constitutional: Comfortable and Chronically Ill
Eyes: Sclera Anicteric
Cardiovascular: Regular Rate and S1/S2
Pulmonary: Clear
Gastrointestinal: Soft, Non Tender, Non Distended and Normal Bowel Sounds
Genito-Urinary: Negative CVA Tenderness
Wound: Other (left foot dressing dry)
Neurological: AO x 3
Lines: Other (LUE midline no erythema)
Objective Data
Lab Data
Lab Results
04/06/25 08:05
Estimated Creat Clear 45 ml/min 04/05/25 08:39
Lactic Acid 0.8 mmol/L (0.7-2.0) 03/25/25 01:16
Total Bilirubin 0.3 mg/dl (0.2-1.3) 04/05/25 08:39
AST 11 U/L (17-59) L 04/05/25 08:39
ALT 11 U/L (0-50) 04/05/25 08:39
Alkaline Phosphatase 78 U/L (38-126) 04/05/25 08:39
Most recent labs reviewed.
Micro Results:
04/04/25 16:30 Wound Culture - Preliminary
Foot - Left Enterobacter cloacae
Gram Stain - Preliminary
04/04/25 16:30 Anaerobic Culture - Preliminary
Foot - Left Culture pending. Anaerobic cultures are examined after 3
days incubation. Additional information to follow.
03/31/25 10:51 Blood Culture - Final
Blood/Venous No Growth - Final Report
03/31/25 10:22 Blood Culture - Final
Blood/Venous No Growth - Final Report
03/25/25 16:52 Fungal Culture - Preliminary
Foot - Left Culture in progress.
Positive cultures are reported as soon as detected.
Final report to follow in four to five weeks.
03/25/25 09:33 Blood Culture - Final
Blood/Venous No Growth - Final Report
03/25/25 16:56 Wound Culture - Final
Foot - Left Staph aureus MRSA
Enterococcus faecalis - VRE
Gram Stain - Final
03/25/25 16:56 Anaerobic Culture - Final
Foot - Left NO ANAEROBES ISOLATED
03/25/25 16:52 Wound Culture - Final
Foot - Left Staph aureus MRSA
Enterococcus faecalis - VRE
Gram Stain - Final
03/25/25 16:52 Anaerobic Culture - Final
Foot - Left NO ANAEROBES ISOLATED
03/25/25 01:16 Blood Culture - Final
Blood/Venous No Growth - Final Report
03/27/25 10:35 Urine Culture - Final
Urine Anna albicans
03/24/25 12:51 Salmonella/Shigella Culture - Final
Feces/Stool No Salmonella, Shigella, Aeromonas or Plesiomonas species
isolated.
Campylobacter Culture - Final
No Campylobacter species isolated.
Shiga Toxin Test - Final
No E. coli Shiga Toxin 1 or 2 detected.
03/21/25 21:00 Blood Culture - Final
Blood/Venous No Growth - Final Report
03/21/25 21:00 Blood Culture - Final
Blood/Venous No Growth - Final Report
03/21/25 21:16 Wound Culture - Final
Foot - Left Enterococcus faecalis - VRE
Anna albicans
Gram Stain - Final
03/24/25 12:53 C. difficile GDH Antigen & Toxins - Final
Feces/Stool C. difficile antigen positive, toxin negative.
Clostridium difficile present, but toxin not detected.
Patient may be a carrier, colonized with nontoxinogenic
strain or the level of toxin in sample is below detection
limits. This information should be used in conjunction with
the patient's clinical history.
03/22/25 13:07 MRSA Screen - Final
Nose No Methicillin Resistant Staphylococcus aureus isolated.
[2025-04-06] MEDS: NOVOLOG FLEXPEN-LOW RESISTANCE 1 UNITS SC ×2 (09:02→13:14)
[2025-04-06] MEDS: COREG 25 MG PO ×2 (09:03→20:15)
[2025-04-06] MEDS: RANEXA EXTENDED RELEASE 1000 MG PO ×2 (09:03→20:15)
[2025-04-06] MEDS: LANTUS SC ×3 (09:03→20:38)
[2025-04-06] MEDS: NOVOLOG FLEXPEN 10 UNITS SC ×2 (09:03→13:14)
[2025-04-06] MEDS: NEURONTIN 300 MG PO ×3 (09:04→22:46)
[2025-04-06] MEDS: IMDUR (EXTENDED RELEASE) 60 MG PO (09:04)
[2025-04-06] MEDS: CYMBALTA DELAYED RELEASE 30 MG PO (09:04)
[2025-04-06] MEDS: FEOSOL 325 MG PO ×2 (09:04→20:15)
[2025-04-06] MEDS: PROTONIX 40 MG PO (09:04)
[2025-04-06 09:06] LABS: Blood Urea Nitrogen 46 mg/dl (9-20); Calcium 7.6 mg/dl (8.4-10.2); Carbon Dioxide 25 mmol/L (22-30); Chloride 103 mmol/L (98-107); Estimated Creatinine Clearance 62 ml/min; Glucose 137 mg/dl (70-99); Potassium 4.2 mmol/L (3.5-5.1); Sodium 135 mmol/L (135-145); eGFR 40.56
[2025-04-06] MEDS: LANTUS 0.28 UNITS SC (09:53)
[2025-04-06] MEDS: BENADRYL 50 MG IV (10:20)
[2025-04-06 13:07] LABS: Glucose - Point of Care 153 mg/dl (70-99)
--- NOTE | 2025-04-06 14:59 | VATNOTE ---
Upon assessment of pt's midline, biopatch completely saturated. Received in report that line was leaking yesterday but was pushed further in and redressed with no issues. Line removed and new midline to be placed in L arm. Per pt he is having at
least 2 more surgeries. TCL retrieved was 13 cm. Pressure dressing applied.
[2025-04-06] MEDS: CUBICIN 16 MG IV (16:17)
[2025-04-06 17:11] LABS: Glucose - Point of Care 104 mg/dl (70-99)
[2025-04-06] MEDS: NOVOLOG FLEXPEN-LOW RESISTANCE SC (17:12)
[2025-04-06] MEDS: NOVOLOG FLEXPEN 8 UNITS SC (17:12)
[2025-04-06] MEDS: NSS IV ×2 (18:26→18:27)
[2025-04-06 20:03] LABS: Glucose - Point of Care 49 mg/dl (70-99)
[2025-04-06 20:17] LABS: Glucose - Point of Care 54 mg/dl (70-99)
[2025-04-06 20:38] LABS: Glucose - Point of Care 60 mg/dl (70-99)
[2025-04-06 21:03] LABS: Glucose - Point of Care 109 mg/dl (70-99)
--- NOTE | 2025-04-06 21:32 | GLUCOSE ---
SITUATION:Pt rang call morales and stated he felt sugar was low. Accucheck 49. Given 4 oz OJ. Repeat accucheck 54. Additional OJ given. Repeat accucheck 60. Additional OJ and peanut butter and jana crackers given. Repeat accucheck 109. Discussed with
kelsea KENT and tan to be held tonight. Will recheck accucheck q2 x2 and at 0300.
BACKGROUND:
ASSESSMENT:
RECOMMENDATION:
[2025-04-06] MEDS: REMERON 30 MG PO (22:46)
[2025-04-06 23:06] LABS: Glucose - Point of Care 107 mg/dl (70-99)
[2025-04-06] MEDS: TYLENOL PO (23:53)
[2025-04-07] MEDS: DILAUDID 0.25 MG IV ×4 (00:19→19:27)
[2025-04-07] MEDS: TYLENOL 1000 MG PO ×5 (00:19→23:30)
[2025-04-07] MEDS: BENADRYL 50 MG IV ×2 (01:02→15:40)
[2025-04-07 01:05] LABS: Glucose - Point of Care 121 mg/dl (70-99)
[2025-04-07 03:07] LABS: Glucose - Point of Care 158 mg/dl (70-99)
[2025-04-07 03:30] VITALS: BP 165/72
[2025-04-07 04:34] LABS: Blood Urea Nitrogen 40 mg/dl (9-20); Calcium 7.8 mg/dl (8.4-10.2); Carbon Dioxide 28 mmol/L (22-30); Chloride 104 mmol/L (98-107); Estimated Creatinine Clearance 80 ml/min; Glucose 145 mg/dl (70-99); Potassium 4.1 mmol/L (3.5-5.1); Sodium 138 mmol/L (135-145); eGFR 55.27
[2025-04-07 04:41] LABS: Hematocrit 20.7 % (39.0-52.0); Hemoglobin 7.1 g/dL (13.0-18.0); Mean Corp Hgb Conc. 34.3 g/dL (33.0-37.0); Mean Corpuscular Volume 87.3 fL (80.0-94.0); Platelet Count 468 10^3/uL (130-400); Red Cell Dist. Width 14.7 % (11.5-14.5)
--- NOTE | 2025-04-07 07:20 | W.PN.HOSP.TC ---
Addendum entered and electronically signed by Reginald Araya MD 04/07/25 20:27:
Attending Addendum-
I saw and evaluated the patient. I reviewed the resident�s note and agree with findings and plan as documented in the resident�s note. Sub: overnight wound continued to drain profusely. complains of pain in left foot but sleeping comfortably on
entry to room. Denies fevers chills. Complains o diarrhea. Full 12 point ROS reviewed and negative except as documented Exam: Vitals reviewed in chart GEN-NAD heart RRR lungs clear abd soft ND ND pos BS. LE - right BKA left TMA bandaged - NPB
Plan:
#Left foot TMA wound dehiscence and osteomyelitis
#h/o Left TMA on 03/08
- Wound culture 03/25-MRSA and VRE
- wound cx 04/04-Enterobacter
- Appreciate ID
- Continue Daptomycin #14, monitor CPK
- Continue ceftazidime/avibactam #2- Enterobacter-sensi resulted, may be able to narrow
- Blood cultures NGTD
- Pain control
- Status post debridement 03/25
- Pathology 03/25- showed focal acute osteomyelitis and detached fragment of fibrino-purulent exudate
- OR 04/04 - Debridement of infected left transmetatarsal amputation site including removal of nonviable bone
- Excisional debridement of left heel wound down to subcutaneous tissue
- path sent 04/04-P
- strict NWB
- further treatment dependent on bone path results
#Acute bleed: from site of L TMA and Heel Debridement
#Acute blood Loss Anemia secondary to the above
#Chronic Anemia / Iron Deficiency
- hold asa, hold plavix (need to find out when stents were placed)
- ctm CBC q 12
- tx additional unit 04/07
- tx for HB < 7
# Acute Hypoxemic Respiratory Failure
- wean o2 for sats > 92%
# Diarrhea
-likely abx associated
-add probiotic
-if > 3x in 24 hours check c diff
# CAD with Stents
- hold plavix cont coreg
# HTN- cont imdur and coreg
# DM-I with neuropathy
- A1C 8.1->6.9
- episode of hypoglycemia
- Diabetes TRANSPORTATION DEPARTMENT SUPERVISOR on board, input appreciated
- decrease insulin (home dose- L 30 BID, aspart 10u q ac)
- cont duloxetine and gabapentin
# Urinary Retention
- Pt self caths at home
- urinating as usual
- DC'd brink
# AMBER
- resolving
- DC IVF
- dc torsemide
- Continue monitoring BMP
#GERD
- Continue Pantoprazole
# CIDP
- Continue current meds, arrange for PLEX in outpatient setting once discharged
DVT Prophylaxis: SCDs
Full Code
Dispo eventual DC back to [facility]
Time spent coordinating care, review of plan of care with resident, personally reviewed records in EMR, med rec, consults, notes, labs, radiology, d/w nursing, [place] pharmacy� 51 mins
Original Note:
Today's Communication/Plan
-
Continue current antibiotics
Patient's hemoglobin was 7.1 in the morning�repeat H&H ordered was 6.7 - 1 PRBC given
Assessment / Plan
Assessment / Plan
Assessment/Plan:
-Left foot TMA site with wound dehiscence:
-History of left foot TMA on 03/08:
-Acute bleed: from site of L TMA and Heel Debridement (03/25) overnight.
-Acute blood Loss Anemia secondary to the above:
Vascular ultrasound showed no significant arterial stenosis on the left however Doppler waveforms suggest disease within the distal SFA/popliteal artery and infrapopliteal disease may also be present as per arterial studies. Multiple lymph nodes
were also seen in the left thigh which may be reactive.
Wound cultures grew MRSA, VRE )
Blood cultures did not show any growth
Underwent ultrasound of the left lower extremity did not show any evidence of DVT
Iron supplementation continue
Continue monitoring hemoglobin daily and transfuse as needed to maintain hemoglobin greater than 7
Status postdebridement 03/25.
Pathology results came back which showed focal acute osteomyelitis and detached fragment of fibrino-purulent exudate
Patient underwent his open TMA revision and wound debridement on 04/04 -there was significant drainage postoperatively -patient may benefit from a wound VAC if able
Holding anticoagulants postoperatively
Continue antibiotics as per ID recommendations
Podiatry continues to follow and depending on pathology and culture of the surgical specimens care plan will be adjusted.
Podiatry recommends nonweightbearing to the left lower extremity and continued elevation of the extremity on 2-3 pillows
POD #2 on 04/06/25
Appreciate ID recommendations
Continue Daptomycin (currently on day 13 on 04/06/2025)
Continue ceftazidime/avibactam 1250 mg as per infectious diseases recommendations
Patient's lab work on the morning of 04/07/2025 had a hemoglobin at 7.1 with a hematocrit of 20.7�repeat H&H ordered which was 6.7 - 1 PRBC ordered on 04/07/25
Podiatry has tentatively planned for revision surgery of the L foot after pathology returns from most recent debridement on 04/06/25
-Itchy rash:
Continue IV Benadryl
-Diarrhea:
Check stool sample for C. difficile if loose stool continues
- Urinary retention:
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
Patient self caths
Brink catheter has been discontinued. Patient will be able to self cath as he usually does this in the outpatient setting
- History of ASCVD
- Chest pain:
EKG/troponin negative for any acute process
ASA held
Statin held
Continue Ranolazine
Continue Carvedilol
Type 1 diabetes with Hyperglycemia and neuropathy: Monitoring
A1C = 8.1% in January.
Diabetes TRANSPORTATION DEPARTMENT SUPERVISOR consulted, recommendations appreciated
Diabetic nurse practitioner recommended 28 units Lantus the evening of 04/06/2025
After initial Lantus dose we will continue the patient on Lantus 30 at bedtime with NovoLog 10 units.
Continue gabapentin, continue duloxetine
-AMBER on CKD IIIa: Unresolved
Continue to monitoring creatinine, has been hovering around 1.4/1.5
Urine studies show pre-renal cause, likely from hypovolemic state
Continued elevated creatinine level at 1.6 on 04/04/2025
Continue monitoring BMP.
Holding torsemide
IV fluid support
-GERD
Continue Pantoprazole
-Chronic inflammatory demyelinating polyneuropathy:
Continue current meds, will need to arrange for PLEX in outpatient setting once discharged
FULL CODE STATUS
Stress Ulcer Prophylaxis: Pantoprazole
DVT Prophylaxis: Clopidogrel and SCDs
Imaging:
-Left foot x-ray conducted on 03/21/2025:
Status post amputation at the level of the first through fifth proximal metatarsal bones.
No radiographic evidence for osteomyelitis.
- Bilateral lower extremity arterial ultrasound exam conducted on 03/23/2025:
1. Ankle-brachial indices and toe brachial indices could not be measured due to prior amputations.
2. No focal significant arterial stenosis demonstrated on the left side on duplex imaging. Spectral Doppler waveform analysis is suggestive of disease within the distal SFA/popliteal artery. Infrapopliteal disease may also be present.
3. Multiple lymph nodes are seen within the left thigh, which may be reactive.
-Peripheral vascular ultrasound of the left lower extremity conducted on 03/31/2025:
No evidence of DVT of the left lower extremity.
Procedures:
Debridement of infected left transmetatarsal amputation site including removal of nonviable bone
Excisional debridement of left heel wound down to subcutaneous tissue
Anticipated Discharge: > 48 hours
Subjective/Interval History
-
Date of Service: April 07, 2025
Met with patient at the bedside. He did not complain of any pain today. Unfortunately, he has been contending with ongoing diarrhea but has been able to eat and drink normally. He does not have any nausea or vomiting.
Objective Data
-
Labs:
Laboratory Results
04/07/25
03:48
WBC 15.1 H
Hgb 7.1 L
Hct 20.7 L*
Plt Count 468 H
Sodium 138
Potassium 4.1
Chloride 104
Carbon Dioxide 28
BUN 40 H
Creatinine 1.7 H
Glucose 145 H
Calcium 7.8 L
Vital Signs:
Vital Signs
Temp Pulse Resp BP Pulse Ox
97.8 F 86 18 122/71 100
04/06/25 23:01 04/06/25 23:01 04/06/25 23:01 04/06/25 23:01 04/06/25 23:01
I&O
04/06/25 04/07/25 04/08/25
06:59 06:59 06:59
Intake Total 2900 / 2900 480 / 480
Output Total 800 / 800 2600 / 2600
Balance 2100 / 2100 -2120 / -2120
Review of Systems
-
History Source: Patient
Constitutional: Reports No Symptoms
EENT: Reports No Symptoms Reported
Respiratory: Reports No Symptoms
Cardiac: Reports No Symptoms
Abdomen/GI: Reports Diarrhea
Breast: Reports No Symptoms
Genitourinary: Reports No Symptoms
Musculoskeletal: Reports Muscle Pain (Left lower limb)
Skin: Reports Sores (Left lower limb)
Neuro: Reports No Symptoms
Endocrine: Reports No Symptoms
Hematologic / Lymphatic: Reports No Symptoms
Physical Exam
-
General: Well Developed, Well Nourished, Comfortable, Conversant and Obese
HEENT: Normocephalic and Atraumatic
Respiratory: Clear to Auscultation and Non Labored Respirations; Negative Wheezes, Rales, Rhonchi or Crackles
Cardiac: Regular Rhythm and S1/S2; Negative Murmur, Calf Tenderness or Tachycardic
GI: Soft, Nontender, Nondistended and Normal Bowel Sounds; Negative Organomegaly
Genito-urinary: No Costovertebral Tender, Clear Urine and Brink
Musculoskeletal: No Clubbing, No Cyanosis and Other (R BKA; left hallux and second toe amputation; left foot wrapped in dressing, not bleeding at this time)
Skin: Warm and Dry; Negative Rash or Ulcers
Neuro: Awake, Alert, Oriented, AO x 3 and No Sensory Deficits
Psych: Calm
[2025-04-07 07:31] VITALS: BP 104/57
[2025-04-07 07:38] LABS: Glucose - Point of Care 150 mg/dl (70-99)
--- NOTE | 2025-04-07 08:09 | PN.DE.MGMTRT ---
Insulin Management
- -
04/07/2025: Diabetes Management Follow up
Patient admitted from [facility] 03/21 with c/o bleeding L heel wound. PMH type 1 diabetes, R BKA, L toe amputation, recent debridement L heel, Guillian Lacarne, CHF, HTN, CKD, NC, recent admission 01/21 and 03/05 s/p
transmetatarsal L amputation and debridement. Prior to admission was receiving Lantus 30 units BID with Humalog insulin ss AC. A1C on admission 6.9%, (improved from 8.1%). Cr 1.2, eGFR > 60-->1.7 today
Prior to incarceration was [facility] in a [facility] per patient he will return there.
Patient is awake, alert , sleepy but easily awakens, resting in bed, offers no complaints, able to discuss diabetes care plan.
POD # 2 s/p L transmetatarsal amputation and L heel debridement, hgb 6.7 today, planned for another transfusion this morning.
Pt received a reduced dose of NovoLog 8 units @ Dinner time and Lantus 28 units @ HS
Noted for another episode of hypoglycemia last night, as low as 49, recovered after treatment, otherwise, glucose range was 104 to 157 yesterday.
Will further reduce Lantus to 25 units BID and dinner time NovoLog dose to 5 units.
Cont NovoLog 10 units with breakfast and lunch and corrective with meals. Will add bedtime snack and Glucerna supplemental with meals.
Will assess glucose trend and further adjust insulin if necessary.
Discussed with nurse, she will TT with lunch alondra glucose level. Will cont to follow.
Diabetes History
- -
Type of Diabetes: 1
Pre-Admission Diabetes Regimen
04/06/25 04/07/25
08:05 03:48
Creatinine 2.2 H 1.7 H
Lab Results
Hemoglobin A1c 6.9 % (4.0-5.6) H 03/22/25 06:24
Insulin Pump Settings
IP Diabetes Regimen
04/06/25 04/06/25 04/06/25
08:05 13:06 17:10
Glucose 137 H
POC Glucose 153 H 104 H
04/06/25 04/06/25 04/06/25
20:02 20:16 20:36
Glucose
POC Glucose 49 L* 54 L* 60 L
04/06/25 04/06/25 04/07/25
21:02 23:04 01:03
Glucose
POC Glucose 109 H 107 H 121 H
04/07/25 04/07/25 04/07/25
03:05 03:48 07:36
Glucose 145 H
POC Glucose 158 H 150 H
Meal type: Lunch
Meal type: Breakfast
Amount consumed: 100%
Amount consumed: 100%
Patient Education
[2025-04-07] MEDS: IMDUR (EXTENDED RELEASE) 60 MG PO (09:17)
[2025-04-07] MEDS: COREG 25 MG PO ×2 (09:17→19:31)
[2025-04-07] MEDS: PROTONIX 40 MG PO (09:18)
[2025-04-07] MEDS: FEOSOL 325 MG PO ×2 (09:18→19:28)
[2025-04-07] MEDS: NEURONTIN 300 MG PO ×3 (09:18→21:40)
[2025-04-07] MEDS: RANEXA EXTENDED RELEASE 1000 MG PO ×2 (09:19→19:29)
[2025-04-07] MEDS: CYMBALTA DELAYED RELEASE 30 MG PO (09:19)
[2025-04-07] MEDS: NOVOLOG FLEXPEN-LOW RESISTANCE 1 UNITS SC ×2 (09:26→17:54)
--- NOTE | 2025-04-07 09:38 | W.PN.ID1 ---
Date of Service
Date of Service: April 07, 2025
Today's Communication
Continue dapto and Avycaz
Assessment / Plan
# Leukocytosis
# Left foot TMA site wound dehiscence with necrosis
- Blood cx neg
- OR 03/25/25 s/p I+D, removal of necrotic bone at amp site, I+D heel wound to subcutaneous tisse; wound vac placed
OR cx Enterococcus (VRE) and MRSA.
03/25 Bone path: 2nd metatarsal focal acute osteo
- 04/04/25 s/p open TMA revision today, heel wound debridement.
OR cx: Enterobacter cloacae - suspect MDR as previous
Bone path pending
Per Podiatry, more surgery pending bone path result.
- Continue daptomycin (d14). Hold statin.
Follow weekly CK.
- Continue ceftazidime/avibactam (d2)
- Follow wbc.
# Recent 03/08 s/p L TMA (surgical cure), heel debridement, and calcaneus biopsy (negative osteo)
# AMBER improving - abx dosing renally adjusted
# Allergies: PCN, cephalosporin, meropenem, Vancomycin; tolerated Avyzaz
- c/o increase puritis.
- currently on Benadryl 50mg IV bid prn
- add hydroxyzine 25 mg po bid prn
# Incarcerated
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
Diabetes mellitus
CAD status post PCI
CHF
hx CKD3
Hypertension
Guillain-Potts� syndrome/CIDP, plasma exchange q 2 months
PAD status post right BKA
Left hallux and second toe osteomyelitis status post amputation and debridement of left heel ulcer January 21, 2025
Left foot TMA, I+D left heel wound and bone biopsy of heel Mar 08, 2025
Chief Complaint
-: Leukocytosis and Other (Foot wound)
Subjective / Review of Systems
No rash but complains of increased itching.
Vital Signs / Physical Exam
Vital Signs
Vital Signs
Temp Pulse Resp BP Pulse Ox
97.9 F 83 17 104/57 100
04/07/25 07:31 04/07/25 07:31 04/07/25 07:31 04/07/25 07:31 04/07/25 07:31
Physical Exam
Constitutional: Comfortable and Chronically Ill
Eyes: Sclera Anicteric
Cardiovascular: Regular Rate and S1/S2
Pulmonary: Clear
Gastrointestinal: Soft, Non Tender, Non Distended and Normal Bowel Sounds
Genito-Urinary: Negative CVA Tenderness
Wound: Other (left foot dressing dry)
Neurological: AO x 3
Lines: Other (LUE midline no erythema)
Objective Data
Lab Data
Estimated Creat Clear 80 ml/min 04/07/25 03:48
Lactic Acid 0.8 mmol/L (0.7-2.0) 03/25/25 01:16
Total Bilirubin 0.3 mg/dl (0.2-1.3) 04/05/25 08:39
AST 11 U/L (17-59) L 04/05/25 08:39
ALT 11 U/L (0-50) 04/05/25 08:39
Alkaline Phosphatase 78 U/L (38-126) 04/05/25 08:39
Most recent labs reviewed.
Micro Results:
04/04/25 16:30 Wound Culture - Preliminary
Foot - Left Enterobacter cloacae
Gram Stain - Preliminary
04/04/25 16:30 Anaerobic Culture - Preliminary
Foot - Left Culture pending. Anaerobic cultures are examined after 3
days incubation. Additional information to follow.
03/31/25 10:51 Blood Culture - Final
Blood/Venous No Growth - Final Report
03/31/25 10:22 Blood Culture - Final
Blood/Venous No Growth - Final Report
03/25/25 16:52 Fungal Culture - Preliminary
Foot - Left Culture in progress.
Positive cultures are reported as soon as detected.
Final report to follow in four to five weeks.
03/25/25 09:33 Blood Culture - Final
Blood/Venous No Growth - Final Report
03/25/25 16:56 Wound Culture - Final
Foot - Left Staph aureus MRSA
Enterococcus faecalis - VRE
Gram Stain - Final
03/25/25 16:56 Anaerobic Culture - Final
Foot - Left NO ANAEROBES ISOLATED
03/25/25 16:52 Wound Culture - Final
Foot - Left Staph aureus MRSA
Enterococcus faecalis - VRE
Gram Stain - Final
03/25/25 16:52 Anaerobic Culture - Final
Foot - Left NO ANAEROBES ISOLATED
03/25/25 01:16 Blood Culture - Final
Blood/Venous No Growth - Final Report
03/27/25 10:35 Urine Culture - Final
Urine Anna albicans
03/24/25 12:51 Salmonella/Shigella Culture - Final
Feces/Stool No Salmonella, Shigella, Aeromonas or Plesiomonas species
isolated.
Campylobacter Culture - Final
No Campylobacter species isolated.
Shiga Toxin Test - Final
No E. coli Shiga Toxin 1 or 2 detected.
03/21/25 21:00 Blood Culture - Final
Blood/Venous No Growth - Final Report
03/21/25 21:00 Blood Culture - Final
Blood/Venous No Growth - Final Report
03/21/25 21:16 Wound Culture - Final
Foot - Left Enterococcus faecalis - VRE
Anna albicans
Gram Stain - Final
03/24/25 12:53 C. difficile GDH Antigen & Toxins - Final
Feces/Stool C. difficile antigen positive, toxin negative.
Clostridium difficile present, but toxin not detected.
Patient may be a carrier, colonized with nontoxinogenic
strain or the level of toxin in sample is below detection
limits. This information should be used in conjunction with
the patient's clinical history.
03/22/25 13:07 MRSA Screen - Final
Nose No Methicillin Resistant Staphylococcus aureus isolated.
[2025-04-07] MEDS: NOVOLOG FLEXPEN 10 UNITS SC ×2 (09:55→12:36)
[2025-04-07] MEDS: LANTUS 0.25 UNITS SC ×2 (09:55→21:40)
[2025-04-07 10:48] LABS: Hematocrit 20.4 % (39.0-52.0); Hemoglobin 6.7 g/dL (13.0-18.0); Mean Corp Hgb Conc. 32.8 g/dL (33.0-37.0); Mean Corpuscular Volume 89.5 fL (80.0-94.0); Platelet Count 457 10^3/uL (130-400); Red Cell Dist. Width 14.9 % (11.5-14.5)
[2025-04-07 10:54] LABS: ALT (SGPT) < 10 U/L (0-50); AST (SGOT) 11 U/L (17-59); Albumin 2.8 g/dl (3.5-5.0); Alkaline Phosphatase 76 U/L (38-126); Blood Urea Nitrogen 37 mg/dl (9-20); Calcium 7.7 mg/dl (8.4-10.2); Carbon Dioxide 28 mmol/L (22-30); Chloride 104 mmol/L (98-107); Estimated Creatinine Clearance 80 ml/min; Glucose 227 mg/dl (70-99); Potassium 4.4 mmol/L (3.5-5.1); Sodium 137 mmol/L (135-145); Total Protein 5.8 g/dl (6.3-8.2); eGFR 55.27
[2025-04-07 11:32] LABS: Glucose - Point of Care 229 mg/dl (70-99)
[2025-04-07] MEDS: NOVOLOG FLEXPEN-LOW RESISTANCE 2 UNITS SC (12:34)
--- NOTE | 2025-04-07 14:01 | CM ---
Chart reviewed. Care ongoing
Cont IV abx
Podiatry has tentatively planned for revision surgery of the L foot after pathology returns
POD # 2 s/p L transmetatarsal amputation and L heel debridement, hgb 6.7 today, planned for another transfusion this morning.
CM will cont to follow for d/c planning
Plan: Return to [facility] when medically stable
[2025-04-07 14:21] VITALS: BP 130/72
[2025-04-07 14:36] VITALS: BP 155/73
[2025-04-07] MEDS: CUBICIN 16 MG IV (15:35)
[2025-04-07 16:09] VITALS: BP 165/72
[2025-04-07 16:52] LABS: Glucose - Point of Care 181 mg/dl (70-99)
[2025-04-07] MEDS: NOVOLOG FLEXPEN 5 UNITS SC (17:54)
[2025-04-07 21:26] LABS: Glucose - Point of Care 247 mg/dl (70-99)
[2025-04-07] MEDS: REMERON 30 MG PO (21:40)
[2025-04-07 23:00] VITALS: BP 146/75
[2025-04-08] VITALS (11 sets, daily range): BP systolic 100–123; BP diastolic 43–65; BMI 31.2
[2025-04-08] MEDS: DILAUDID 0.25 MG IV ×4 (02:23→21:52)
[2025-04-08] MEDS: BENADRYL 25 MG IV ×2 (02:24→15:28)
[2025-04-08 05:06] LABS: Hematocrit 23.8 % (39.0-52.0); Hemoglobin 7.9 g/dL (13.0-18.0); Mean Corp Hgb Conc. 33.2 g/dL (33.0-37.0); Mean Corpuscular Volume 89.1 fL (80.0-94.0); Platelet Count 473 10^3/uL (130-400); Red Cell Dist. Width 14.9 % (11.5-14.5)
[2025-04-08 05:24] LABS: ALT (SGPT) < 10 U/L (0-50); AST (SGOT) 11 U/L (17-59); Albumin 2.7 g/dl (3.5-5.0); Alkaline Phosphatase 79 U/L (38-126); Blood Urea Nitrogen 29 mg/dl (9-20); Calcium 8.1 mg/dl (8.4-10.2); Carbon Dioxide 28 mmol/L (22-30); Chloride 106 mmol/L (98-107); Estimated Creatinine Clearance 97 ml/min; Glucose 187 mg/dl (70-99); Potassium 4.4 mmol/L (3.5-5.1); Sodium 139 mmol/L (135-145); Total Protein 5.8 g/dl (6.3-8.2); eGFR > 60.00
[2025-04-08] MEDS: TYLENOL 1000 MG PO ×2 (05:24→17:01)
--- NOTE | 2025-04-08 07:26 | W.PN.HOSP.TC ---
Addendum entered and electronically signed by Reginald Araya MD 04/08/25 21:36:
Attending Addendum-
I saw and evaluated the patient. I reviewed the resident�s note and agree with findings and plan as documented in the resident�s note. Sub: called by nursing re profuse ammount of blood draining from foot. pressure applied and stopped. Denies fevers
chills. Complains of diarrhea. Full 12 point ROS reviewed and negative except as documented Exam: Vitals reviewed in chart GEN-NAD heart RRR lungs clear abd soft ND ND pos BS. LE - right BKA left TMA bandaged and bloody - NPB
Plan:
#Left foot TMA wound dehiscence and osteomyelitis
#h/o Left TMA on 03/08
- Wound culture 03/25-MRSA and VRE
- wound cx 04/04-Enterobacter
- Appreciate ID
- Continue Daptomycin #15, monitor CPK
- Continue ceftazidime/avibactam #3- Enterobacter-sensi resulted, may be able to narrow
- Blood cultures NGTD
- Pain control
- Status post debridement 03/25
- Pathology 03/25- showed focal acute osteomyelitis and detached fragment of fibrino-purulent exudate
- OR 04/04 - Debridement of infected left transmetatarsal amputation site including removal of nonviable bone
- Excisional debridement of left heel wound down to subcutaneous tissue
- path sent 04/04-still P
- strict NWB
- further treatment dependent on bone path results
#Acute bleed: from site of L TMA and Heel Debridement
#Acute blood Loss Anemia secondary to the above
#Chronic Anemia / Iron Deficiency
- hold asa, hold plavix
- ctm CBC q 12
- stat H and H ordered - tx additional unit 04/08
- tx for HB < 7
# Acute Hypoxemic Respiratory Failure
- resolved
# Diarrhea
-likely abx associated
-add probiotic
-if > 3x in 24 hours check c diff
# CAD with Stents
- hold plavix cont coreg
# HTN- cont imdur and coreg
# DM-I with neuropathy
- A1C 8.1->6.9
- episode of hypoglycemia
- Diabetes 911 DISPATCHER on board, input appreciated
- decrease insulin L25/30 N (home dose- L30 BID, N10u q ac)
- cont duloxetine and gabapentin
# Urinary Retention
- Pt self caths at home
- urinating as usual
- DC'd brink
# AMBER
- resolving
- dc torsemide
- Continue monitoring BMP
#GERD
- Continue Pantoprazole
# CIDP
- Continue current meds, arrange for PLEX in outpatient setting once discharged
DVT Prophylaxis: SCDs
Full Code
Dispo eventual DC back to [facility]
Time spent coordinating care, review of plan of care with resident, personally reviewed records in EMR, med rec, consults, notes, labs, radiology, d/w nursing, CO, pharmacy� 52 mins
Original Note:
Today's Communication/Plan
-
Patient had an episode of acute blood loss on 04/08/2025 where a large amount of blood was lost from his foot wound. Repeat H&H ordered. Will transfuse if hemoglobin is below 7.
Continue current antibiotics.
Awaiting culture results from prior surgical debridement.
Assessment / Plan
Assessment / Plan
Assessment/Plan:
-Left foot TMA site with wound dehiscence:
-History of left foot TMA on 03/08:
-Acute bleed: from site of L TMA and Heel Debridement (03/25) overnight.
-Acute blood Loss Anemia secondary to the above:
Vascular ultrasound showed no significant arterial stenosis on the left however Doppler waveforms suggest disease within the distal SFA/popliteal artery and infrapopliteal disease may also be present as per arterial studies. Multiple lymph nodes
were also seen in the left thigh which may be reactive.
Wound cultures grew MRSA, VRE )
Blood cultures did not show any growth
Underwent ultrasound of the left lower extremity did not show any evidence of DVT
Iron supplementation continue
Continue monitoring hemoglobin daily and transfuse as needed to maintain hemoglobin greater than 7
Status postdebridement 03/25.
Pathology results came back which showed focal acute osteomyelitis and detached fragment of fibrino-purulent exudate
Patient underwent his open TMA revision and wound debridement on 04/04 -there was significant drainage postoperatively -patient may benefit from a wound VAC if able
Holding anticoagulants postoperatively
Continue antibiotics as per ID recommendations
Podiatry continues to follow and depending on pathology and culture of the surgical specimens care plan will be adjusted.
Podiatry recommends nonweightbearing to the left lower extremity and continued elevation of the extremity on 2-3 pillows
POD #2 on 04/06/25
Appreciate ID recommendations
Continue Daptomycin (currently on day 13 on 04/06/2025)
Continue ceftazidime/avibactam 1250 mg as per infectious diseases recommendations
Patient's lab work on the morning of 04/07/2025 had a hemoglobin at 7.1 with a hematocrit of 20.7�repeat H&H ordered which was 6.7 - 1 PRBC ordered on 04/07/25
Podiatry has tentatively planned for revision surgery of the L foot after pathology returns from most recent debridement on 04/06/25
Patient had an episode of acute blood loss on 04/08/2025 where a large amount of blood was lost from his foot wound. Repeat H&H ordered. Will transfuse if hemoglobin is below 7.
-Itchy rash:
Continue IV Benadryl
-Diarrhea:
Check stool sample for C. difficile if loose stool continues
- Urinary retention:
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
Patient self caths
Brink catheter has been discontinued. Patient will be able to self cath as he usually does this in the outpatient setting
- History of ASCVD
- Chest pain:
EKG/troponin negative for any acute process
ASA held
Statin held
Continue Ranolazine
Continue Carvedilol
Type 1 diabetes with Hyperglycemia and neuropathy: Monitoring
A1C = 8.1% in January.
Diabetes 911 DISPATCHER consulted, recommendations appreciated
Diabetic nurse practitioner recommended 28 units Lantus the evening of 04/06/2025
After initial Lantus dose we will continue the patient on Lantus 30 at bedtime with NovoLog 10 units.
Continue gabapentin, continue duloxetine
-AMBER on CKD IIIa: Unresolved
Continue to monitoring creatinine, has been hovering around 1.4/1.5
Urine studies show pre-renal cause, likely from hypovolemic state
Continued elevated creatinine level at 1.6 on 04/04/2025
Continue monitoring BMP.
Holding torsemide
IV fluid support
-GERD
Continue Pantoprazole
-Chronic inflammatory demyelinating polyneuropathy:
Continue current meds, will need to arrange for PLEX in outpatient setting once discharged
FULL CODE STATUS
Stress Ulcer Prophylaxis: Pantoprazole
DVT Prophylaxis: SCDs
Imaging:
-Left foot x-ray conducted on 03/21/2025:
Status post amputation at the level of the first through fifth proximal metatarsal bones.
No radiographic evidence for osteomyelitis.
- Bilateral lower extremity arterial ultrasound exam conducted on 03/23/2025:
1. Ankle-brachial indices and toe brachial indices could not be measured due to prior amputations.
2. No focal significant arterial stenosis demonstrated on the left side on duplex imaging. Spectral Doppler waveform analysis is suggestive of disease within the distal SFA/popliteal artery. Infrapopliteal disease may also be present.
3. Multiple lymph nodes are seen within the left thigh, which may be reactive.
-Peripheral vascular ultrasound of the left lower extremity conducted on 03/31/2025:
No evidence of DVT of the left lower extremity.
Procedures:
Debridement of infected left transmetatarsal amputation site including removal of nonviable bone
Excisional debridement of left heel wound down to subcutaneous tissue
Anticipated Discharge: > 48 hours
Subjective/Interval History
-
Date of Service: April 08, 2025
Met with patient at the bedside. Overall he is doing well and says that he is slowly improving. His diet is normal and he is consuming liquids as he usually would. He feels better after receiving 1 unit of blood yesterday. Unfortunately, in the
late morning he had an episode of large bleed and it took some time for the bleeding to stop.
Objective Data
-
Labs:
Laboratory Results
04/08/25
04:28
WBC 12.6 H
Hgb 7.9 L
Hct 23.8 L
Plt Count 473 H
Sodium 139
Potassium 4.4
Chloride 106
Carbon Dioxide 28
BUN 29 H
Creatinine 1.4 H
Glucose 187 H
Calcium 8.1 L
Total Bilirubin 0.2
AST 11 L
ALT < 10
Alkaline Phosphatase 79
Vital Signs:
Vital Signs
Temp Pulse Resp BP Pulse Ox
98.9 F 94 18 146/75 95
04/07/25 23:00 04/07/25 23:00 04/07/25 23:00 04/07/25 23:00 04/07/25 23:00
I&O
04/07/25 04/08/25 04/09/25
06:59 06:59 06:59
Intake Total 480 / 480 2510 / 2510
Output Total 2600 / 2600 1325 / 1325
Balance -2119 / -0 1185 / 1185
Review of Systems
-
History Source: Patient
Constitutional: Reports No Symptoms
EENT: Reports No Symptoms Reported
Respiratory: Reports No Symptoms
Cardiac: Reports No Symptoms
Abdomen/GI: Reports Diarrhea
Breast: Reports No Symptoms
Genitourinary: Reports No Symptoms
Musculoskeletal: Reports Muscle Pain (Left lower limb)
Skin: Reports Sores (Left lower limb)
Neuro: Reports No Symptoms
Endocrine: Reports No Symptoms
Hematologic / Lymphatic: Reports No Symptoms
Physical Exam
-
General: Well Developed, Well Nourished, Comfortable, Conversant and Obese
HEENT: Normocephalic and Atraumatic
Respiratory: Clear to Auscultation and Non Labored Respirations; Negative Wheezes, Rales, Rhonchi or Crackles
Cardiac: Regular Rhythm and S1/S2; Negative Murmur, Calf Tenderness or Tachycardic
GI: Soft, Nontender, Nondistended and Normal Bowel Sounds; Negative Organomegaly
Genito-urinary: No Costovertebral Tender, Clear Urine and Brink
Musculoskeletal: No Clubbing, No Cyanosis and Other (R BKA; left hallux and second toe amputation; left foot wrapped in dressing, not bleeding at this time)
Skin: Warm and Dry; Negative Rash or Ulcers
Neuro: Awake, Alert, Oriented, AO x 3 and No Sensory Deficits
Psych: Calm
[2025-04-08 08:10] LABS: Glucose - Point of Care 198 mg/dl (70-99)
--- NOTE | 2025-04-08 08:54 | PN.DE.MGMTRT ---
Insulin Management
- -
04/08/2025: Diabetes Management Follow up
Patient admitted from [facility] 03/21 with c/o bleeding L heel wound. PMH type 1 diabetes, R BKA, L toe amputation, recent debridement L heel, Guillian Noble, CHF, HTN, CKD, RI, recent admission 01/21 and 03/05 s/p
transmetatarsal L amputation and debridement. Prior to admission was receiving Lantus 30 units BID with Humalog insulin ss AC. A1C on admission 6.9%, (improved from 8.1%). Cr 1.2, eGFR > 60-->1.7 today
Prior to incarceration was living in a custodial per patient he will return there.
Patient is awake, alert, sleepy but easily awakens, resting in bed, offers no complaints, able to discuss diabetes care plan.
POD # 3 s/p Left transmetatarsal amputation and L heel debridement, hgb 7.9-->7.1 today.
Pt received a reduced dose of NovoLog 5 units @ Dinner time, HS glucose was 247, received Lantus 25 units, FBG 187 V, 198 POC.
Will increase dinner time NovoLog dose to 8 units and increase Lantus to 30 units @ HS.
Cont reduced dose of Lantus 25 units in AM and NovoLog 10 units with breakfast and lunch with corrective insulin.
Will assess glucose trend and further adjust insulin if necessary.
Discussed with nurse. Will cont to follow.
Diabetes History
- -
Type of Diabetes: 1
Pre-Admission Diabetes Regimen
04/07/25 04/08/25
59 04:28
Creatinine 1.7 H 1.4 H
Lab Results
Hemoglobin A1c 6.9 % (4.0-5.6) H 03/22/25 06:24
Insulin Pump Settings
IP Diabetes Regimen
04/07/25 04/07/25 04/07/25
11:31 16:46
Glucose 227 H
POC Glucose 229 H 181 H
04/07/25 04/08/25 04/08/25
21:25 04:28 08:08
Glucose 187 H
POC Glucose 247 H 198 H
Meal type: Lunch
Meal type: Breakfast
Amount consumed: 100%
Amount consumed: 100%
Patient Education
[2025-04-08] MEDS: NOVOLOG FLEXPEN 10 UNITS SC ×2 (09:06→12:40)
[2025-04-08] MEDS: IMDUR (EXTENDED RELEASE) 60 MG PO (09:07)
[2025-04-08] MEDS: NEURONTIN 300 MG PO ×3 (09:07→21:12)
[2025-04-08] MEDS: NOVOLOG FLEXPEN-LOW RESISTANCE 1 UNITS SC (09:07)
[2025-04-08] MEDS: RANEXA EXTENDED RELEASE 1000 MG PO ×2 (09:07→21:12)
[2025-04-08] MEDS: PROTONIX 40 MG PO (09:07)
[2025-04-08] MEDS: CYMBALTA DELAYED RELEASE 30 MG PO (09:07)
[2025-04-08] MEDS: FEOSOL 325 MG PO ×2 (09:08→21:12)
[2025-04-08] MEDS: COREG 25 MG PO ×2 (09:08→21:12)
[2025-04-08] MEDS: LANTUS 0.25 UNITS SC (09:16)
--- NOTE | 2025-04-08 10:45 | PTCARENOTE ---
Informed by pct that pts LLE is bleeding through dressing. this RN presents to bedside at 1027 with pt sitting on edge of bed, just finished straight cathing himself. pool of blood on floor with blood actively seeping through dressing. shilpi
removed, kerlix left in place, thick amount of 4x4 applied to saturation site and SHILPI bandage applied to create pressure dressing; bleeding controlled s/p intervention. pt reports feeling dizzy/lightheaded, vitals obtained; stable. MD Araya made
aware at 1028; reports will be rounding shortly. pt remains in bed eating breakfast. [facility] guards remain at bedside. bed low, rails up x 3. call morales in reach. LLE elevated on pillow. plan of care continues to be followed.
[2025-04-08] MEDS: TYLENOL PO (11:28)
[2025-04-08 12:11] LABS: Glucose - Point of Care 203 mg/dl (70-99)
[2025-04-08 12:17] LABS: Hematocrit 21.9 % (39.0-52.0); Hemoglobin 7.1 g/dL (13.0-18.0)
[2025-04-08] MEDS: NOVOLOG FLEXPEN-LOW RESISTANCE 2 UNITS SC ×2 (12:40→17:01)
[2025-04-08] MEDS: CUBICIN 16 MG IV (15:28)
[2025-04-08 16:45] LABS: Glucose - Point of Care 212 mg/dl (70-99)
[2025-04-08] MEDS: NOVOLOG FLEXPEN 8 UNITS SC (17:02)
[2025-04-08 17:33] LABS: Hematocrit 19.6 % (39.0-52.0); Hemoglobin 6.5 g/dL (13.0-18.0)
[2025-04-08] MEDS: REMERON 30 MG PO (21:12)
[2025-04-08] MEDS: ATARAX 25 MG PO (21:21)
[2025-04-08 21:28] LABS: Glucose - Point of Care 204 mg/dl (70-99)
[2025-04-08] MEDS: LANTUS 0.3 UNITS SC (21:51)
[2025-04-09] MEDS: TYLENOL PO (01:41)
[2025-04-09 03:45] VITALS: BMI 31.5
[2025-04-09] MEDS: BENADRYL 25 MG IV ×2 (04:32→17:46)
[2025-04-09] MEDS: DILAUDID 0.25 MG IV ×3 (04:33→17:46)
[2025-04-09 06:27] LABS: ALT (SGPT) < 10 U/L (0-50); AST (SGOT) 12 U/L (17-59); Albumin 2.7 g/dl (3.5-5.0); Alkaline Phosphatase 73 U/L (38-126); Blood Urea Nitrogen 25 mg/dl (9-20); Calcium 8.1 mg/dl (8.4-10.2); Carbon Dioxide 26 mmol/L (22-30); Chloride 108 mmol/L (98-107); Estimated Creatinine Clearance 114 ml/min; Glucose 164 mg/dl (70-99); Potassium 4.5 mmol/L (3.5-5.1); Sodium 139 mmol/L (135-145); Total Protein 5.8 g/dl (6.3-8.2); eGFR > 60.00
[2025-04-09 07:00] LABS: Hematocrit 23.3 % (39.0-52.0); Hemoglobin 7.8 g/dL (13.0-18.0); Mean Corp Hgb Conc. 33.5 g/dL (33.0-37.0); Mean Corpuscular Volume 90.3 fL (80.0-94.0); Platelet Count 497 10^3/uL (130-400); Red Cell Dist. Width 14.6 % (11.5-14.5)
[2025-04-09] MEDS: TYLENOL 1000 MG PO ×3 (07:34→17:44)
[2025-04-09 08:00] VITALS: BP 130/76
[2025-04-09] MEDS: FEOSOL 325 MG PO ×2 (08:31→19:32)
[2025-04-09] MEDS: PROTONIX 40 MG PO (08:31)
[2025-04-09] MEDS: CYMBALTA DELAYED RELEASE 30 MG PO (08:31)
[2025-04-09] MEDS: NEURONTIN 300 MG PO ×3 (08:31→22:52)
[2025-04-09] MEDS: IMDUR (EXTENDED RELEASE) 60 MG PO (08:31)
[2025-04-09] MEDS: RANEXA EXTENDED RELEASE 1000 MG PO ×2 (08:31→19:31)
[2025-04-09] MEDS: COREG 25 MG PO ×2 (08:34→19:32)
[2025-04-09 08:36] LABS: Glucose - Point of Care 163 mg/dl (70-99)
[2025-04-09] MEDS: LANTUS 0.25 UNITS SC (08:37)
[2025-04-09] MEDS: NOVOLOG FLEXPEN-LOW RESISTANCE 1 UNITS SC ×3 (08:38→17:48)
[2025-04-09] MEDS: NOVOLOG FLEXPEN 10 UNITS SC ×2 (08:38→13:13)
--- NOTE | 2025-04-09 11:40 | W.PN.ID1 ---
Date of Service
Date of Service: April 09, 2025
Today's Communication
Continue current abx's.
Assessment / Plan
# Leukocytosis
# Left foot TMA site wound dehiscence with necrosis
- Blood cx neg
- OR 03/25/25 s/p I+D, removal of necrotic bone at amp site, I+D heel wound to subcutaneous tisse; wound vac placed
OR cx Enterococcus (VRE) and MRSA.
03/25 Bone path: 2nd metatarsal focal acute osteo
- 04/04/25 s/p open TMA revision today, heel wound debridement.
OR cx: Enterobacter cloacae - suspect MDR as previous
Bone path pending
Per Podiatry, more surgery pending bone path result.
- Continue daptomycin (d16). Hold statin.
Follow weekly CK.
- Continue ceftazidime/avibactam (d4)
- Follow wbc.
# Recent 03/08 s/p L TMA (surgical cure), heel debridement, and calcaneus biopsy (negative osteo)
# AMBER resolving - abx dosing renally adjusted
# Allergies: PCN, cephalosporin, meropenem, Vancomycin; tolerated Avyzaz
# Incarcerated
Conditions [employer]
Diabetes mellitus
CAD status post PCI
CHF
hx CKD3
Hypertension
Guillain-Potts� syndrome/CIDP, plasma exchange q 2 months
PAD status post right BKA
Left hallux and second toe osteomyelitis status post amputation and debridement of left heel ulcer January 21, 2025
Left foot TMA, I+D left heel wound and bone biopsy of heel Mar 08, 2025
Chief Complaint
-: Leukocytosis and Other (Foot wound)
Subjective / Review of Systems
c/o Atarax ineffective. Unable to sleep due to itching. Asking for q8 IV bendaryl
Vital Signs / Physical Exam
Vital Signs
Vital Signs
Temp Pulse Resp BP Pulse Ox
98.2 F 87 16 130/76 98
04/09/25 08:00 04/09/25 08:34 04/09/25 08:00 04/09/25 08:34 04/09/25 08:00
Physical Exam
Constitutional: Comfortable and Chronically Ill
Eyes: Sclera Anicteric
Cardiovascular: Regular Rate and S1/S2
Pulmonary: Clear
Gastrointestinal: Soft, Non Tender, Non Distended and Normal Bowel Sounds
Genito-Urinary: Negative CVA Tenderness
Skin: Negative Rash
Wound: Other (left foot dressing dried blood)
Neurological: AO x 3
Lines: Other (LUE midline no erythema)
Objective Data
Lab Data
Lab Results
04/09/25 05:40
04/09/25 05:40
Estimated Creat Clear 114 ml/min 04/09/25 05:40
Lactic Acid 0.8 mmol/L (0.7-2.0) 03/25/25 01:16
Total Bilirubin 0.2 mg/dl (0.2-1.3) 04/09/25 05:40
AST 12 U/L (17-59) L 04/09/25 05:40
ALT < 10 U/L (0-50) 04/09/25 05:40
Alkaline Phosphatase 73 U/L (38-126) 04/09/25 05:40
Most recent labs reviewed.
Micro Results:
04/04/25 16:30 Wound Culture - Final
Foot - Left Enterobacter cloacae
Gram Stain - Final
04/04/25 16:30 Anaerobic Culture - Final
Foot - Left NO ANAEROBES ISOLATED
03/31/25 10:51 Blood Culture - Final
Blood/Venous No Growth - Final Report
03/31/25 10:22 Blood Culture - Final
Blood/Venous No Growth - Final Report
03/25/25 16:52 Fungal Culture - Preliminary
Foot - Left Culture in progress.
Positive cultures are reported as soon as detected.
Final report to follow in four to five weeks.
03/25/25 09:33 Blood Culture - Final
Blood/Venous No Growth - Final Report
03/25/25 16:56 Wound Culture - Final
Foot - Left Staph aureus MRSA
Enterococcus faecalis - VRE
Gram Stain - Final
03/25/25 16:56 Anaerobic Culture - Final
Foot - Left NO ANAEROBES ISOLATED
03/25/25 16:52 Wound Culture - Final
Foot - Left Staph aureus MRSA
Enterococcus faecalis - VRE
Gram Stain - Final
03/25/25 16:52 Anaerobic Culture - Final
Foot - Left NO ANAEROBES ISOLATED
03/25/25 01:16 Blood Culture - Final
Blood/Venous No Growth - Final Report
03/27/25 10:35 Urine Culture - Final
Urine Anna albicans
03/24/25 12:51 Salmonella/Shigella Culture - Final
Feces/Stool No Salmonella, Shigella, Aeromonas or Plesiomonas species
isolated.
Campylobacter Culture - Final
No Campylobacter species isolated.
Shiga Toxin Test - Final
No E. coli Shiga Toxin 1 or 2 detected.
03/21/25 21:00 Blood Culture - Final
Blood/Venous No Growth - Final Report
03/21/25 21:00 Blood Culture - Final
Blood/Venous No Growth - Final Report
03/21/25 21:16 Wound Culture - Final
Foot - Left Enterococcus faecalis - VRE
Anna albicans
Gram Stain - Final
03/24/25 12:53 C. difficile GDH Antigen & Toxins - Final
Feces/Stool C. difficile antigen positive, toxin negative.
Clostridium difficile present, but toxin not detected.
Patient may be a carrier, colonized with nontoxinogenic
strain or the level of toxin in sample is below detection
limits. This information should be used in conjunction with
the patient's clinical history.
03/22/25 13:07 MRSA Screen - Final
Nose No Methicillin Resistant Staphylococcus aureus isolated.
Care Review
Plan reviewed with: Physician (Dr. Amato)
--- NOTE | 2025-04-09 11:42 | W.PN.HOSP.TC ---
Today's Communication/Plan
-
Continue antibiotics per ID.
Monitor H&H, transfuse if less than 7.
Wound care.
Accu-Cheks and insulin sliding scale, monitor for hypoglycemia
Monitor for transfusion associated complications.
Assessment / Plan
Assessment / Plan
Assessmen -29-year-old male with PMHx significant for insulin-dependent type 1 diabetes mellitus, CIDP, Hypertension, GERD, CKD stage IIIA, history of osteomyelitis and TMA is admitted to the hospital for evaluation and management of acute blood
loss anemia from TMA wound dehiscence.
Plan-
# Acute blood loss anemia -
from left foot TMA site with wound dehiscence.
S/p 9 units blood transfusion since admission on 03/22/2025
most recent blood transfusion on 04/08/2025
Hemoglobin stable at 7.8, Trend H&H transfuse if less than 7
Monitor for transfusion associated complications.
# acute osteomyelitis of left foot,
Recurrent heel debridements.
History of left foot TMA on 03/25 after heel debridement s/p I+D, removal of necrotic bone at amp site, I+D heel wound to subcutaneous tissue; wound vac placed, cultures showed VRE and MRSA. And pathology showed focal acute osteomyelitis and
detached fragment of fibrinopurulent exudate.
Initial amputation of left forefoot transmetatarsal done on 03/09/2025
Patient readmitted for suspicious wound infection and osteomyelitis on 03/22, postdebridement on 03/25 and 04/04
On 04/04/2025-revision wound debridement, with cultures yielding Enterobacter cloacae, MDR resistant, bone pathology pending. Patient could not tolerate wound VAC. Podiatry notes reviewed, appreciate recommendations, more surgery pending the bone
pathology results. ID on board, vascular surgery on board. Continue medications- Daptomycin day 16, ceftazidime avibactam-day 4
Vascular ultrasound with no significant arterial stenosis within the distal SFA/popliteal artery and possible infrapopliteal disease
Wound cultures showed MRSA, VRE.
No growth in blood cultures.
ID on board, podiatry on board, vascular surgery on board.
pathology on Left second metatarsal bone performed on 03/25/2025 - on 03/28/2025 showed focal acute osteomyelitis and detached fragment of fibrinopurulent exudate.
Pathology of left foot metatarsals sent on 04/05/2025-pending.
Podiatry recommends nonweightbearing to the left lower extremity and continued elevation of the extremity on 2-3 pillows
# Diarrhea-
Likely antibiotic associated
Resolved. Continue probiotic.
# Itchy rash-
Continue Benadryl
# AMBER on CKD stage IIIa-
Improving renal function, serum creatinine improved to 1.2 from peak 3.0
Torsemide held, IV fluids to be continued.
Monitor carefully for blood pressure and volume overload.
# CAD s/p PCI-
# Angina-
Plavix and aspirin held in light of recurrent bleeding.
Statin held for 16 days, patient on daptomycin.
Continue carvedilol and ranolazine.
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
Diabetes education and management on board.
Continue Lantus, NovoLog and sliding scale. (Home dose-Lantus 30 twice daily, NovoLog 10 units)
Currently Lantus 20 5 AM, 30 at bedtime, NovoLog-10 units with breakfast and lunch, 8 units dinner.
Overnight additional insulin requirement minimal.
Hemoglobin A1c at 8.1 as of 02/04.
Accu-Cheks AM and at bedtime
Diabetic diet, follow blood glucose and electrolytes.
Monitor for hypoglycemic episodes.
Continue duloxetine and gabapentin for diabetic neuropathy.
# Essential hypertension-
Continue Imdur and Coreg
# Urinary retention-
Likely from diabetic autonomic dysfunction, neuropathic bladder.
Baseline patient self caths.
Not on Castillo anymore.
# CIDP-
Arrange for Plex outpatient.
# GERD-
Continue pantoprazole.
# Anxiety/depression-
Continue mirtazapine.
# DVT prophylaxis-
SCDs
# CODE STATUS-
Full code
Imaging and procedures-
03/21/2025-left foot x-ray-
Status post amputation at the level of the first through fifth proximal metatarsal bones.
No radiographic evidence for osteomyelitis.
03/23/2025-B/L LLE arterial ultrasound-
1. Ankle-brachial indices and toe brachial indices could not be measured due to prior amputations.
2. No focal significant arterial stenosis demonstrated on the left side on duplex imaging. Spectral Doppler waveform analysis is suggestive of disease within the distal SFA/popliteal artery. Infrapopliteal disease may also be present.
3. Multiple lymph nodes are seen within the left thigh, which may be reactive.
-03/31/2025-left LLE PVS -no DVT
03/03/2025-initial amputation of left transmetatarsal
03/25/2025-debridement of infected left metatarsal amputation
04/04/2025-revision debridement of left heel wound with calcaneal biopsy.
Anticipated Discharge: > 48 hours
Subjective/Interval History
-
Date of Service: April 09, 2025
Patient complains of subjective fevers. Denies chills, appetite changes, nausea, vomiting, had bowel movements, no diarrhea.
Objective Data
-
Labs:
Laboratory Results
04/09/25
05:40
WBC 13.6 H
Hgb 7.8 L
Hct 23.3 L
Plt Count 497 H
Sodium 139
Potassium 4.5
Chloride 108 H
Carbon Dioxide 26
BUN 25 H
Creatinine 1.2
Glucose 164 H
Calcium 8.1 L
Total Bilirubin 0.2
AST 12 L
ALT < 10
Alkaline Phosphatase 73
Vital Signs:
Vital Signs
Temp Pulse Resp BP Pulse Ox
98.2 F 87 16 130/76 98
04/09/25 08:00 04/09/25 08:34 04/09/25 08:00 04/09/25 08:34 04/09/25 08:00
I&O
04/08/25 04/09/25 04/10/25
06:59 06:59 06:59
Intake Total 2510 / 2510 1810 / 1810
Output Total 1325 / 1325 1800 / 1800 1400 / 1400
Balance 1185 / 1185 -1400 / -1400
Review of Systems
-
History Source: Patient
All other systems: Reviewed and negative
Constitutional: Reports Fever (Subjective, no objective evidence)
Physical Exam
-
General: Comfortable and Conversant
Respiratory: Clear to Auscultation; Negative Wheezes, Rales, Rhonchi or Crackles
Cardiac: Regular Rhythm and S1/S2; Negative Murmur, Rub or Gallop
GI: Soft, Nontender, Nondistended and Normal Bowel Sounds
Musculoskeletal: Other (Left foot dried blood noted on the dressing.)
Neuro: AO x 3 and No Motor Deficits
Psych: Calm
Data Reviewed
-
Diagnostic Radiology: Image personally visualized and interpreted, Report Reviewed by me, Discussed with Physician and Discussed with Patient
Medical Tests (Nuc Med, Echo etc): Report Reviewed by me, Discussed with Physician and Discussed with Patient
Labs: Labs Reviewed by me, Discussed with Physician and Discussed with Patient
[2025-04-09 12:03] LABS: Glucose - Point of Care 177 mg/dl (70-99)
[2025-04-09] MEDS: CUBICIN 16 MG IV (15:33)
[2025-04-09 16:00] VITALS: BP 139/73
[2025-04-09] MEDS: NOVOLOG FLEXPEN 8 UNITS SC (17:48)
[2025-04-09 17:49] LABS: Glucose - Point of Care 166 mg/dl (70-99)
[2025-04-09 22:15] LABS: Glucose - Point of Care 228 mg/dl (70-99)
[2025-04-09] MEDS: LANTUS 0.3 UNITS SC (22:51)
[2025-04-09] MEDS: REMERON 30 MG PO (22:52)
[2025-04-09 23:25] VITALS: BP 141/70
[2025-04-10] MEDS: TYLENOL 1000 MG PO ×4 (02:25→17:36)
[2025-04-10] MEDS: DILAUDID 0.25 MG IV ×4 (02:25→21:43)
[2025-04-10 06:00] VITALS: BMI 31.8
[2025-04-10 07:50] LABS: Glucose - Point of Care 121 mg/dl (70-99)
[2025-04-10] MEDS: NOVOLOG FLEXPEN-LOW RESISTANCE SC ×2 (08:21→16:13)
[2025-04-10 08:25] VITALS: BP 124/67
[2025-04-10] MEDS: COREG 25 MG PO ×2 (08:51→19:19)
[2025-04-10] MEDS: IMDUR (EXTENDED RELEASE) 60 MG PO (08:51)
[2025-04-10] MEDS: PROTONIX 40 MG PO (08:51)
[2025-04-10] MEDS: CYMBALTA DELAYED RELEASE 30 MG PO (08:51)
[2025-04-10] MEDS: FEOSOL 325 MG PO ×2 (08:51→19:14)
[2025-04-10] MEDS: NEURONTIN 300 MG PO ×3 (08:51→21:44)
[2025-04-10] MEDS: BENADRYL 25 MG IV ×2 (08:51→19:14)
[2025-04-10] MEDS: LANTUS 0.25 UNITS SC (08:52)
[2025-04-10] MEDS: RANEXA EXTENDED RELEASE 1000 MG PO ×2 (08:53→19:14)
[2025-04-10] MEDS: NOVOLOG FLEXPEN 10 UNITS SC ×2 (08:53→12:35)
[2025-04-10 09:16] LABS: Hematocrit 24.6 % (39.0-52.0); Hemoglobin 7.9 g/dL (13.0-18.0); Mean Corp Hgb Conc. 32.1 g/dL (33.0-37.0); Mean Corpuscular Volume 90.1 fL (80.0-94.0); Platelet Count 556 10^3/uL (130-400); Red Cell Dist. Width 14.7 % (11.5-14.5)
[2025-04-10 09:35] LABS: ALT (SGPT) < 10 U/L (0-50); AST (SGOT) 11 U/L (17-59); Albumin 3.0 g/dl (3.5-5.0); Alkaline Phosphatase 74 U/L (38-126); Blood Urea Nitrogen 18 mg/dl (9-20); Calcium 8.4 mg/dl (8.4-10.2); Carbon Dioxide 26 mmol/L (22-30); Chloride 111 mmol/L (98-107); Estimated Creatinine Clearance 125 ml/min; Glucose 113 mg/dl (70-99); Potassium 4.6 mmol/L (3.5-5.1); Sodium 142 mmol/L (135-145); Total Protein 6.3 g/dl (6.3-8.2); eGFR > 60.00
[2025-04-10 11:43] LABS: Glucose - Point of Care 208 mg/dl (70-99)
--- NOTE | 2025-04-10 12:27 | W.PN.HOSP.TC ---
Today's Communication/Plan
-
Trend H&H, hemoglobin at 7.9.
Check with surgical team for blood transfusion
Assessment / Plan
Assessment / Plan
Assessment -29-year-old male with PMHx significant for insulin-dependent type 1 diabetes mellitus, CIDP, Hypertension, GERD, CKD stage IIIA, history of osteomyelitis and TMA is admitted to the hospital for evaluation and management of acute blood
loss anemia from TMA wound dehiscence.
Plan-
# Acute blood loss anemia -
from left foot TMA site with wound dehiscence.
S/p 9 units blood transfusion since admission on 03/22/2025
most recent blood transfusion on 04/08/2025
Hemoglobin stable at 7.8, Trend H&H transfuse if less than 7
Monitor for transfusion associated complications.
# acute osteomyelitis of left foot,
Recurrent heel debridements.
History of left foot TMA on 03/25 after heel debridement s/p I+D, removal of necrotic bone at amp site, I+D heel wound to subcutaneous tissue; wound vac placed, cultures showed VRE and MRSA. And pathology showed focal acute osteomyelitis and
detached fragment of fibrinopurulent exudate.
Initial amputation of left forefoot transmetatarsal done on 03/09/2025
Patient readmitted for suspicious wound infection and osteomyelitis on 03/22, postdebridement on 03/25 and 04/04
On 04/04/2025-revision wound debridement, with cultures yielding Enterobacter cloacae, MDR resistant, bone pathology pending. Patient could not tolerate wound VAC. Podiatry notes reviewed, appreciate recommendations, more surgery pending the bone
pathology results. ID on board, vascular surgery on board. Continue medications- Daptomycin day 16, ceftazidime avibactam-day 4
Vascular ultrasound with no significant arterial stenosis within the distal SFA/popliteal artery and possible infrapopliteal disease
Wound cultures showed MRSA, VRE.
No growth in blood cultures.
ID on board, podiatry on board, vascular surgery on board.
pathology on Left second metatarsal bone performed on 03/25/2025 - on 03/28/2025 showed focal acute osteomyelitis and detached fragment of fibrinopurulent exudate.
Pathology of left foot metatarsals sent on 04/05/2025-pending.
Podiatry recommends nonweightbearing to the left lower extremity and continued elevation of the extremity on 2-3 pillows
# Diarrhea-
Likely antibiotic associated
Obtain stool C. difficile testing. Continue probiotic.
# Itchy rash-
Continue Benadryl every 8 hourly
# AMBER on CKD stage IIIa-
Improving renal function, serum creatinine improved to 1.2 from peak 3.0
Torsemide held, IV fluids to be continued.
Monitor carefully for blood pressure and volume overload.
# CAD s/p PCI-
# Angina-
Plavix and aspirin held in light of recurrent bleeding.
Statin held for 16 days, patient on daptomycin.
Continue carvedilol and ranolazine.
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
Diabetes education and management on board.
Continue Lantus, NovoLog and sliding scale. (Home dose-Lantus 30 twice daily, NovoLog 10 units)
Currently Lantus 20 5 AM, 30 at bedtime, NovoLog-10 units with breakfast and lunch, 8 units dinner.
Overnight additional insulin requirement minimal.
Hemoglobin A1c at 8.1 as of 02/04.
Accu-Cheks AM and at bedtime
Diabetic diet, follow blood glucose and electrolytes.
Monitor for hypoglycemic episodes.
Continue duloxetine and gabapentin for diabetic neuropathy.
# Essential hypertension-
Continue Imdur and Coreg
# Urinary retention-
Likely from diabetic autonomic dysfunction, neuropathic bladder.
Baseline patient self caths.
Not on Castillo anymore.
# CIDP-
Arrange for Plex outpatient.
# GERD-
Continue pantoprazole.
# Anxiety/depression-
Continue mirtazapine.
# DVT prophylaxis-
SCDs
# CODE STATUS-
Full code
Imaging and procedures-
03/21/2025-left foot x-ray-
Status post amputation at the level of the first through fifth proximal metatarsal bones.
No radiographic evidence for osteomyelitis.
03/23/2025-B/L LLE arterial ultrasound-
1. Ankle-brachial indices and toe brachial indices could not be measured due to prior amputations.
2. No focal significant arterial stenosis demonstrated on the left side on duplex imaging. Spectral Doppler waveform analysis is suggestive of disease within the distal SFA/popliteal artery. Infrapopliteal disease may also be present.
3. Multiple lymph nodes are seen within the left thigh, which may be reactive.
-03/31/2025-left LLE PVS -no DVT
03/03/2025-initial amputation of left transmetatarsal
03/25/2025-debridement of infected left metatarsal amputation
04/04/2025-revision debridement of left heel wound with calcaneal biopsy.
Anticipated Discharge: > 48 hours
Subjective/Interval History
-
Date of Service: April 10, 2025
Complains of worsening itching, Benadryl provides relief but however only last for 8 hours. He is also having intermittent diarrhea and fevers. No fevers overnight but reports to have multiple episodes of loose stools.
Objective Data
-
Labs:
Laboratory Results
04/10/25
08:52
WBC 13.4 H
Hgb 7.9 L
Hct 24.6 L
Plt Count 556 H
Sodium 142
Potassium 4.6
Chloride 111 H
Carbon Dioxide 26
BUN 18
Creatinine 1.1
Glucose 113 H
Calcium 8.4
Total Bilirubin 0.2
AST 11 L
ALT < 10
Alkaline Phosphatase 74
Vital Signs:
Vital Signs
Temp Pulse Resp BP Pulse Ox
98 F 85 18 124/67 100
04/10/25 08:25 04/10/25 08:25 04/10/25 08:25 04/10/25 08:25 04/10/25 08:25
I&O
04/09/25 04/10/25 04/11/25
06:59 06:59 06:59
Intake Total 1810 / 1810 2043 / 2043
Output Total 1800 / 1800 2400 / 2400 1200 / 1200
Balance -356 / -356 -1200 / -1200
Review of Systems
-
History Source: Patient
Constitutional: Reports No Symptoms and Other
Respiratory: Reports No Symptoms
Abdomen/GI: Reports Diarrhea
Genitourinary: Reports No Symptoms
Musculoskeletal: Reports No Symptoms
Skin: Reports Itching
Neuro: Reports No Symptoms
Hematologic / Lymphatic: Reports No Symptoms
Allergy / Immunology: Reports No Symptoms
Physical Exam
-
General: No Apparent Distress and Comfortable
HEENT: Moist Mucous Membranes and PERRLA
Respiratory: Clear to Auscultation; Negative Wheezes, Rales, Rhonchi or Crackles
Cardiac: Regular Rhythm and S1/S2; Negative Murmur, Rub or Gallop
GI: Soft, Nontender, Nondistended and Normal Bowel Sounds
Genito-urinary: No Costovertebral Tender
Musculoskeletal: No Clubbing, No Cyanosis and Other (BKA right leg, L TMA wound debridement-dressing intact, blood soaked the dried.)
Skin: Warm
Neuro: AO x 3 and No Motor Deficits
Psych: Calm
Data Reviewed
-
Labs: Labs Reviewed by me, Discussed with Physician and Discussed with Patient
[2025-04-10] MEDS: NOVOLOG FLEXPEN-LOW RESISTANCE 2 UNITS SC (12:36)
[2025-04-10] MEDS: CUBICIN 16 MG IV (15:19)
[2025-04-10 15:49] LABS: Glucose - Point of Care 120 mg/dl (70-99)
[2025-04-10] MEDS: NOVOLOG FLEXPEN 8 UNITS SC (16:12)
[2025-04-10 16:35] VITALS: BP 121/62
--- NOTE | 2025-04-10 17:03 | W.PN.ID1 ---
Date of Service
Date of Service: April 10, 2025
Today's Communication
continue abx's
Assessment / Plan
# Leukocytosis
# Left foot TMA site wound dehiscence with necrosis
- Blood cx neg
- OR 03/25/25 s/p I+D, removal of necrotic bone at amp site, I+D heel wound to subcutaneous tisse; wound vac placed
OR cx Enterococcus (VRE) and MRSA.
03/25 Bone path: 2nd metatarsal focal acute osteo
- 04/04/25 s/p open TMA revision today, heel wound debridement.
OR cx: Enterobacter cloacae - suspect MDR as previous
Bone path pending
Per Podiatry, more surgery pending bone path result.
- Continue daptomycin (d17). Hold statin.
Follow weekly CK in am
- Continue ceftazidime/avibactam (d5)
- Follow wbc.
# Recent 03/08 s/p L TMA (surgical cure), heel debridement, and calcaneus biopsy (negative osteo)
# AMBER resolving - abx dosing renally adjusted
# Allergies: PCN, cephalosporin, meropenem, Vancomycin; tolerated Avyzaz
# Incarcerated
Conditions HALL MONITOR
Diabetes mellitus
CAD status post PCI
CHF
hx CKD3
Hypertension
Guillain-Potts� syndrome/CIDP, plasma exchange q 2 months
PAD status post right BKA
Left hallux and second toe osteomyelitis status post amputation and debridement of left heel ulcer January 21, 2025
Left foot TMA, I+D left heel wound and bone biopsy of heel Mar 08, 2025
Chief Complaint
-: Leukocytosis and Other (Foot wound)
Subjective / Review of Systems
No new complaints.
Vital Signs / Physical Exam
Vital Signs
Vital Signs
Temp Pulse Resp BP Pulse Ox
99.0 F 81 20 121/62 98
04/10/25 16:35 04/10/25 16:35 04/10/25 16:35 04/10/25 16:35 04/10/25 16:35
Physical Exam
Constitutional: Comfortable and Chronically Ill
Cardiovascular: Regular Rate and S1/S2
Pulmonary: Clear
Gastrointestinal: Soft, Non Tender, Non Distended and Normal Bowel Sounds
Skin: Negative Rash
Wound: Other (left foot dressing dried blood)
Neurological: AO x 3
Lines: Other (LUE midline no erythema)
Objective Data
Lab Data
Lab Results
04/10/25 08:52
04/10/25 08:52
Estimated Creat Clear 125 ml/min 04/10/25 08:52
Lactic Acid 0.8 mmol/L (0.7-2.0) 03/25/25 01:16
Total Bilirubin 0.2 mg/dl (0.2-1.3) 04/10/25 08:52
AST 11 U/L (17-59) L 04/10/25 08:52
ALT < 10 U/L (0-50) 04/10/25 08:52
Alkaline Phosphatase 74 U/L (38-126) 04/10/25 08:52
Most recent labs reviewed.
Micro Results:
04/04/25 16:30 Wound Culture - Final
Foot - Left Enterobacter cloacae
Gram Stain - Final
04/04/25 16:30 Anaerobic Culture - Final
Foot - Left NO ANAEROBES ISOLATED
03/31/25 10:51 Blood Culture - Final
Blood/Venous No Growth - Final Report
03/31/25 10:22 Blood Culture - Final
Blood/Venous No Growth - Final Report
03/25/25 16:52 Fungal Culture - Preliminary
Foot - Left Culture in progress.
Positive cultures are reported as soon as detected.
Final report to follow in four to five weeks.
03/25/25 09:33 Blood Culture - Final
Blood/Venous No Growth - Final Report
03/25/25 16:56 Wound Culture - Final
Foot - Left Staph aureus MRSA
Enterococcus faecalis - VRE
Gram Stain - Final
03/25/25 16:56 Anaerobic Culture - Final
Foot - Left NO ANAEROBES ISOLATED
03/25/25 16:52 Wound Culture - Final
Foot - Left Staph aureus MRSA
Enterococcus faecalis - VRE
Gram Stain - Final
03/25/25 16:52 Anaerobic Culture - Final
Foot - Left NO ANAEROBES ISOLATED
03/25/25 01:16 Blood Culture - Final
Blood/Venous No Growth - Final Report
03/27/25 10:35 Urine Culture - Final
Urine Anna albicans
03/24/25 12:51 Salmonella/Shigella Culture - Final
Feces/Stool No Salmonella, Shigella, Aeromonas or Plesiomonas species
isolated.
Campylobacter Culture - Final
No Campylobacter species isolated.
Shiga Toxin Test - Final
No E. coli Shiga Toxin 1 or 2 detected.
03/21/25 21:00 Blood Culture - Final
Blood/Venous No Growth - Final Report
03/21/25 21:00 Blood Culture - Final
Blood/Venous No Growth - Final Report
03/21/25 21:16 Wound Culture - Final
Foot - Left Enterococcus faecalis - VRE
Anna albicans
Gram Stain - Final
03/24/25 12:53 C. difficile GDH Antigen & Toxins - Final
Feces/Stool C. difficile antigen positive, toxin negative.
Clostridium difficile present, but toxin not detected.
Patient may be a carrier, colonized with nontoxinogenic
strain or the level of toxin in sample is below detection
limits. This information should be used in conjunction with
the patient's clinical history.
03/22/25 13:07 MRSA Screen - Final
Nose No Methicillin Resistant Staphylococcus aureus isolated.
[2025-04-10 21:19] LABS: Glucose - Point of Care 105 mg/dl (70-99)
[2025-04-10] MEDS: LANTUS 0.3 UNITS SC (21:43)
[2025-04-10] MEDS: REMERON 30 MG PO (21:44)
[2025-04-10 23:00] VITALS: BP 149/78
[2025-04-11] MEDS: TYLENOL PO (01:00)
[2025-04-11 02:11] VITALS: BMI 32.5
[2025-04-11] MEDS: TYLENOL 1000 MG PO ×4 (03:50→22:34)
[2025-04-11] MEDS: DILAUDID 0.25 MG IV ×4 (03:51→22:34)
[2025-04-11] MEDS: BENADRYL 25 MG IV ×3 (03:52→21:46)
[2025-04-11 08:00] VITALS: BP 138/69
--- NOTE | 2025-04-11 08:21 | PN.DE.MGMTRT ---
Insulin Management
- -
04/11/2025: Diabetes Management Follow up
Patient admitted from [facility] 03/21 with c/o bleeding L heel wound. PMH type 1 diabetes, R BKA, L toe amputation, recent debridement L heel, Guillian Lupton, CHF, HTN, CKD, PR, recent admission 01/21 and 03/05 s/p
transmetatarsal L amputation and debridement. Prior to admission was receiving Lantus 30 units BID with Humalog insulin ss AC. A1C on admission 6.9%, (improved from 8.1%). Cr 1.2, eGFR > 60-->1.7 today
Prior to incarceration was living in a [facility] per patient he will return there.
Patient is awake, alert, sleepy but easily awakens, resting in bed, offers no complaints, able to discuss diabetes care plan.
POD # 6 s/p Left transmetatarsal amputation and L heel debridement, hgb 7.8 today.
Glucose stable and in range, no episodes of Hypoglycemia over the weekend.
Will make no changes to current regimen: Lantus 25 units in AM, 30 units @ HS. AC NovoLog 10 units with breakfast and lunch and 8 units dinner with corrective insulin. Will assess glucose trend and further adjust insulin if necessary.
Discussed with nurse. Will cont to follow.
Diabetes History
- -
Type of Diabetes: 1
Pre-Admission Diabetes Regimen
04/10/25
08:52
Creatinine 1.1
Lab Results
Hemoglobin A1c 6.9 % (4.0-5.6) H 03/22/25 06:24
Insulin Pump Settings
IP Diabetes Regimen
04/10/25 04/10/25 04/10/25
08:52 11:26 15:47
Glucose 113 H
POC Glucose 208 H 120 H
04/10/25
21:17
Glucose
POC Glucose 105 H
Patient Education
[2025-04-11 08:28] LABS: Glucose - Point of Care 113 mg/dl (70-99)
--- NOTE | 2025-04-11 09:14 | W.PN.HOSP.TC ---
Addendum entered and electronically signed by Reginald Araya MD 04/11/25 20:38:
Attending Addendum-
I saw and evaluated the patient. I reviewed the resident�s note and agree with findings and plan as documented in the resident�s note. Sub: had uneventful weekend. no complaints. Denies fevers chills. Pain in left foot well controlled. Full 12
point ROS reviewed and negative except as documented Exam: Vitals reviewed in chart GEN-NAD heart RRR lungs clear abd soft ND ND pos BS. LE - right BKA left TMA bandaged
Plan:
#Left foot TMA wound dehiscence and osteomyelitis
#h/o Left TMA on 03/08
- Wound culture 03/25-MRSA and VRE
- Wound cx-04/04-Enterobacter sensi resulted
- Appreciate ID
- Continue Daptomycin #18, monitor CPK-WNL
- Continue ceftazidime/avibactam #6
- Blood cultures NGTD
- Pain control
- Status post debridement 03/25
- Pathology 03/25- showed focal acute osteomyelitis and detached fragment of fibrino-purulent exudate
- OR 04/04 - Debridement of infected left transmetatarsal amputation site including removal of nonviable bone
- Excisional debridement of left heel wound down to subcutaneous tissue
- path sent 04/04-still P
- strict NWB
- further treatment dependent on bone path results
#Acute bleed: from site of L TMA and Heel Debridement
#Acute blood Loss Anemia secondary to the above
#Chronic Anemia / Iron Deficiency
- transfused multiple units thus far
- hold asa, hold plavix
- ctm CBC daily
- tx for HB < 7
# Acute Hypoxemic Respiratory Failure
- resolved
# Diarrhea
-likely abx associated
-add probiotic
-if > 3x in 24 hours check c diff
# CAD with Stents
- hold plavix cont coreg
# HTN- cont imdur and coreg
# DM-I with neuropathy
- A1C 8.1->6.9
- Diabetes ANIMAL SITTER on board, input appreciated
- cont L25/30 N (home dose- L30 BID, N10ac)
- cont duloxetine and gabapentin
# Urinary Retention
- Pt self caths at home
- urinating as usual
- DC'd brink
# AMBER
- resolved
- dc'd torsemide
- Continue monitoring BMP
#GERD
- Continue Pantoprazole
# CIDP
- Continue current meds, arrange for PLEX in outpatient setting once discharged
DVT Prophylaxis: SCDs
Full Code
Dispo eventual DC back to [facility]
Time spent coordinating care, review of plan of care with resident, personally reviewed records in EMR, med rec, consults, notes, labs, d/w nursing, CO, pharmacy� 51 mins
Original Note:
Today's Communication/Plan
-
Continue current antibiotics
Awaiting surgical pathology results prior to OR with podiatry
Follow H&H�if hemoglobin less than 7 transfuse red blood cells
Assessment / Plan
Assessment / Plan
HPI: 29-year-old male with PMHx significant for insulin-dependent type 1 diabetes mellitus, CIDP, Hypertension, GERD, CKD stage IIIA, history of osteomyelitis and TMA is admitted to the hospital for evaluation and management of acute blood loss
anemia from TMA wound dehiscence.
Assessment/Plan:
-Left foot TMA site with wound dehiscence:
-History of left foot TMA on 03/08:
-Acute bleed: from site of L TMA and Heel Debridement (03/25 and 04/08)
-Acute blood Loss Anemia secondary to the above:
Vascular ultrasound showed no significant arterial stenosis on the left however Doppler waveforms suggest disease within the distal SFA/popliteal artery and infrapopliteal disease may also be present as per arterial studies. Multiple lymph nodes
were also seen in the left thigh which may be reactive.
Wound cultures grew MRSA, VRE )
Blood cultures did not show any growth
Underwent ultrasound of the left lower extremity did not show any evidence of DVT
Iron supplementation continue
Continue monitoring hemoglobin daily and transfuse as needed to maintain hemoglobin greater than 7
Status postdebridement 03/25.
Pathology results came back which showed focal acute osteomyelitis and detached fragment of fibrino-purulent exudate
Patient underwent his open TMA revision and wound debridement on 04/04 -there was significant drainage postoperatively -patient may benefit from a wound VAC if able
POD #7 on 04/11/25
Holding anticoagulants postoperatively
Continue antibiotics as per ID recommendations
Podiatry continues to follow and depending on pathology and culture of the surgical specimens care plan will be adjusted.
Podiatry recommends nonweightbearing to the left lower extremity and continued elevation of the extremity on 2-3 pillows
Appreciate ID recommendations
Continue Daptomycin (currently on day 18 on 04/11/2025)
Continue ceftazidime/avibactam 1250 mg (Day 6 on 04/11/25) as per infectious diseases recommendations
Patient's lab work on the morning of 04/07/2025 had a hemoglobin at 7.1 with a hematocrit of 20.7�repeat H&H ordered which was 6.7 - 1 PRBC ordered on 04/07/25
Podiatry has tentatively planned for revision surgery of the L foot after pathology returns from most recent debridement on 04/06/25
Patient had an episode of acute blood loss on 04/08/2025 where a large amount of blood was lost from his foot wound. 1 PRBC given on 04/08/25
-Itchy rash:
Continue IV Benadryl
-Diarrhea:
Check stool sample for C. difficile if loose stool continues
- Urinary retention:
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
Patient self caths
Brink catheter has been discontinued. Patient will be able to self cath as he usually does this in the outpatient setting
- History of ASCVD
- Chest pain:
EKG/troponin negative for any acute process
ASA held
Statin held
Continue Ranolazine
Continue Carvedilol
Type 1 diabetes with Hyperglycemia and neuropathy: Monitoring
A1C = 8.1% in January.
Diabetes ANIMAL SITTER consulted, recommendations appreciated
Diabetic nurse practitioner recommended 28 units Lantus the evening of 04/06/2025
After initial Lantus dose we will continue the patient on Lantus 30 at bedtime with NovoLog 10 units.
Continue gabapentin, continue duloxetine
-AMBER on CKD IIIa: Unresolved
Continue to monitoring creatinine, has been hovering around 1.4/1.5
Urine studies show pre-renal cause, likely from hypovolemic state
Continued elevated creatinine level at 1.6 on 04/04/2025
Continue monitoring BMP.
Holding torsemide
IV fluid support
-GERD
Continue Pantoprazole
-Chronic inflammatory demyelinating polyneuropathy:
Continue current meds, will need to arrange for PLEX in outpatient setting once discharged
FULL CODE STATUS
Stress Ulcer Prophylaxis: Pantoprazole
DVT Prophylaxis: SCDs
Imaging:
-Left foot x-ray conducted on 03/21/2025:
Status post amputation at the level of the first through fifth proximal metatarsal bones.
No radiographic evidence for osteomyelitis.
- Bilateral lower extremity arterial ultrasound exam conducted on 03/23/2025:
1. Ankle-brachial indices and toe brachial indices could not be measured due to prior amputations.
2. No focal significant arterial stenosis demonstrated on the left side on duplex imaging. Spectral Doppler waveform analysis is suggestive of disease within the distal SFA/popliteal artery. Infrapopliteal disease may also be present.
3. Multiple lymph nodes are seen within the left thigh, which may be reactive.
-Peripheral vascular ultrasound of the left lower extremity conducted on 03/31/2025:
No evidence of DVT of the left lower extremity.
Procedures:
03/03/2025-initial amputation of left transmetatarsal
03/25/2025-debridement of infected left metatarsal amputation
04/04/2025-revision debridement of left heel wound with calcaneal biopsy.
Anticipated Discharge: > 48 hours
Subjective/Interval History
-
Date of Service: April 11, 2025
Met with patient at the bedside. Overall, he states that he is doing about the same with no further complaints. He is eating and drinking normally. Wound dressings are in place without any drainage or bleeding. Patient has no complaints of
shortness of breath, chest pain, or chest tightness.
Objective Data
-
Labs:
Laboratory Results
04/11/25
08:54
WBC Pending
Hgb Pending
Hct Pending
Plt Count Pending
Sodium Pending
Potassium Pending
Chloride Pending
Carbon Dioxide Pending
BUN Pending
Creatinine Pending
Glucose Pending
Calcium Pending
Total Bilirubin Pending
AST Pending
ALT Pending
Alkaline Phosphatase Pending
Vital Signs:
Vital Signs
Temp Pulse Resp BP Pulse Ox
98.5 F 90 16 138/69 96
04/11/25 08:00 04/11/25 08:00 04/11/25 08:00 04/11/25 08:00 04/11/25 08:00
I&O
04/10/25 04/11/25 04/12/25
06:59 06:59 06:59
Intake Total 2043
Output Total 2400 / 2400 2400 / 2400
Balance -356 / -356 -2400 / -2400
Review of Systems
-
History Source: Patient
Constitutional: Reports No Symptoms
Respiratory: Reports No Symptoms
Genitourinary: Reports No Symptoms
Musculoskeletal: Reports No Symptoms
Skin: Reports No Symptoms
Neuro: Reports No Symptoms
Hematologic / Lymphatic: Reports No Symptoms
Allergy / Immunology: Reports No Symptoms
Physical Exam
-
General: Well Developed, Well Nourished, Comfortable, Conversant and Obese
HEENT: Normocephalic and Atraumatic
Respiratory: Clear to Auscultation and Non Labored Respirations; Negative Wheezes, Rales, Rhonchi or Crackles
Cardiac: Regular Rhythm and S1/S2; Negative Murmur, Calf Tenderness or Tachycardic
GI: Soft, Nontender, Nondistended and Normal Bowel Sounds; Negative Organomegaly
Genito-urinary: No Costovertebral Tender, Clear Urine and Brink
Musculoskeletal: No Clubbing, No Cyanosis and Other (R BKA; left hallux and second toe amputation; left foot wrapped in dressing, not bleeding at this time)
Skin: Warm and Dry; Negative Rash or Ulcers
Neuro: Awake, Alert, Oriented, AO x 3 and No Sensory Deficits
Psych: Calm
[2025-04-11 09:34] LABS: Hematocrit 23.6 % (39.0-52.0); Hemoglobin 7.8 g/dL (13.0-18.0); Mean Corp Hgb Conc. 33.1 g/dL (33.0-37.0); Mean Corpuscular Volume 89.7 fL (80.0-94.0); Platelet Count 598 10^3/uL (130-400); Red Cell Dist. Width 14.5 % (11.5-14.5)
[2025-04-11] MEDS: NOVOLOG FLEXPEN-LOW RESISTANCE SC (09:37)
[2025-04-11] MEDS: NEURONTIN 300 MG PO ×3 (10:15→21:45)
[2025-04-11] MEDS: PROTONIX 40 MG PO (10:16)
[2025-04-11] MEDS: COREG 25 MG PO ×2 (10:16→19:59)
[2025-04-11] MEDS: IMDUR (EXTENDED RELEASE) 60 MG PO (10:16)
[2025-04-11] MEDS: CYMBALTA DELAYED RELEASE 30 MG PO (10:16)
[2025-04-11] MEDS: FEOSOL 325 MG PO ×2 (10:16→20:00)
[2025-04-11] MEDS: LANTUS 0.25 UNITS SC (10:16)
[2025-04-11 10:26] LABS: ALT (SGPT) < 10 U/L (0-50); AST (SGOT) 12 U/L (17-59); Albumin 2.9 g/dl (3.5-5.0); Alkaline Phosphatase 78 U/L (38-126); Blood Urea Nitrogen 18 mg/dl (9-20); Calcium 8.4 mg/dl (8.4-10.2); Carbon Dioxide 27 mmol/L (22-30); Chloride 107 mmol/L (98-107); Estimated Creatinine Clearance 116 ml/min; Glucose 103 mg/dl (70-99); Potassium 4.9 mmol/L (3.5-5.1); Sodium 139 mmol/L (135-145); Total Protein 6.2 g/dl (6.3-8.2); eGFR > 60.00
[2025-04-11] MEDS: NOVOLOG FLEXPEN SC (10:26)
[2025-04-11] MEDS: RANEXA EXTENDED RELEASE 1000 MG PO ×2 (11:33→19:59)
[2025-04-11 12:07] LABS: Glucose - Point of Care 152 mg/dl (70-99)
[2025-04-11] MEDS: NOVOLOG FLEXPEN 10 UNITS SC (12:34)
[2025-04-11] MEDS: NOVOLOG FLEXPEN-LOW RESISTANCE 1 UNITS SC ×2 (12:35→17:52)
--- NOTE | 2025-04-11 12:50 | PTCARENOTE ---
Reached out to Dr. Ca, Dr. Montez, Dr. Andrade, and WOJOSH Wolf for updated wound care orders/plan of care updates with left foot wound. Awaiting response from podiatry...
--- NOTE | 2025-04-11 13:38 | W.PN.ID1 ---
Date of Service
Date of Service: April 11, 2025
Today's Communication
Continue abx's.
Assessment / Plan
# Leukocytosis waxes and wanes
# Left foot TMA site wound dehiscence with necrosis
- Blood cx neg
- OR 03/25/25 s/p I+D, removal of necrotic bone at amp site, I+D heel wound to subcutaneous tisse; wound vac placed
OR cx Enterococcus (VRE) and MRSA.
03/25 Bone path: 2nd metatarsal focal acute osteo
- 04/04/25 s/p open TMA revision , heel wound debridement.
OR cx: Enterobacter cloacae - suspect MDR as previous isolate
Bone path pending
Per Podiatry, more surgery pending bone path result.
- Continue daptomycin (d18). Hold statin.
CK 27
- Continue ceftazidime/avibactam (d6)
- Follow wbc.
# Recent 03/08 s/p L TMA (surgical cure), heel debridement, and calcaneus biopsy (negative osteo)
# AMBER resolving - abx dosing renally adjusted
# Allergies: PCN, cephalosporin, meropenem, Vancomycin; tolerated Avyzaz
# Incarcerated
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
Diabetes mellitus
CAD status post PCI
CHF
hx CKD3
Hypertension
Guillain-Potts� syndrome/CIDP, plasma exchange q 2 months
PAD status post right BKA
Left hallux and second toe osteomyelitis status post amputation and debridement of left heel ulcer January 21, 2025
Left foot TMA, I+D left heel wound and bone biopsy of heel Mar 08, 2025
Chief Complaint
-: Leukocytosis and Other (Foot wound)
Subjective / Review of Systems
q8 benadryl helps with itching.
Vital Signs / Physical Exam
Vital Signs
Vital Signs
Temp Pulse Resp BP Pulse Ox
98.5 F 90 16 138/69 96
04/11/25 08:00 04/11/25 08:00 04/11/25 08:00 04/11/25 08:00 04/11/25 08:00
Physical Exam
Constitutional: Comfortable and Chronically Ill
Cardiovascular: Regular Rate and S1/S2
Pulmonary: Clear
Gastrointestinal: Soft, Non Tender, Non Distended and Normal Bowel Sounds
Wound: Other (left foot dressing dried blood)
Neurological: AO x 3
Lines: Other (LUE midline no erythema)
Objective Data
Lab Data
Lab Results
04/11/25 08:54
04/11/25 08:54
Estimated Creat Clear 116 ml/min 04/11/25 08:54
Lactic Acid 0.8 mmol/L (0.7-2.0) 03/25/25 01:16
Total Bilirubin 0.2 mg/dl (0.2-1.3) 04/11/25 08:54
AST 12 U/L (17-59) L 04/11/25 08:54
ALT < 10 U/L (0-50) 04/11/25 08:54
Alkaline Phosphatase 78 U/L (38-126) 04/11/25 08:54
Most recent labs reviewed.
Micro Results:
03/25/25 16:52 Fungal Culture - Preliminary
Foot - Left Culture in progress.
Positive cultures are reported as soon as detected.
Final report to follow in four to five weeks.
04/04/25 16:30 Wound Culture - Final
Foot - Left Enterobacter cloacae
Gram Stain - Final
04/04/25 16:30 Anaerobic Culture - Final
Foot - Left NO ANAEROBES ISOLATED
03/31/25 10:51 Blood Culture - Final
Blood/Venous No Growth - Final Report
03/31/25 10:22 Blood Culture - Final
Blood/Venous No Growth - Final Report
03/25/25 09:33 Blood Culture - Final
Blood/Venous No Growth - Final Report
03/25/25 16:56 Wound Culture - Final
Foot - Left Staph aureus MRSA
Enterococcus faecalis - VRE
Gram Stain - Final
03/25/25 16:56 Anaerobic Culture - Final
Foot - Left NO ANAEROBES ISOLATED
03/25/25 16:52 Wound Culture - Final
Foot - Left Staph aureus MRSA
Enterococcus faecalis - VRE
Gram Stain - Final
03/25/25 16:52 Anaerobic Culture - Final
Foot - Left NO ANAEROBES ISOLATED
03/25/25 01:16 Blood Culture - Final
Blood/Venous No Growth - Final Report
03/27/25 10:35 Urine Culture - Final
Urine Anna albicans
03/24/25 12:51 Salmonella/Shigella Culture - Final
Feces/Stool No Salmonella, Shigella, Aeromonas or Plesiomonas species
isolated.
Campylobacter Culture - Final
No Campylobacter species isolated.
Shiga Toxin Test - Final
No E. coli Shiga Toxin 1 or 2 detected.
03/21/25 21:00 Blood Culture - Final
Blood/Venous No Growth - Final Report
03/21/25 21:00 Blood Culture - Final
Blood/Venous No Growth - Final Report
03/21/25 21:16 Wound Culture - Final
Foot - Left Enterococcus faecalis - VRE
Anna albicans
Gram Stain - Final
03/24/25 12:53 C. difficile GDH Antigen & Toxins - Final
Feces/Stool C. difficile antigen positive, toxin negative.
Clostridium difficile present, but toxin not detected.
Patient may be a carrier, colonized with nontoxinogenic
strain or the level of toxin in sample is below detection
limits. This information should be used in conjunction with
the patient's clinical history.
03/22/25 13:07 MRSA Screen - Final
Nose No Methicillin Resistant Staphylococcus aureus isolated.
--- NOTE | 2025-04-11 15:29 | CM ---
Chart reviewed. Care ongoing. 04/04/25 s/p open TMA revision , heel wound debridement
Cont to monitor hgb and transfuse as needed
Cont abx
Diabetes management following
[facility]
Report: [phone]

Plan: Eventual return to [facility]
[2025-04-11] MEDS: CUBICIN 16 MG IV (15:39)
[2025-04-11 16:07] VITALS: BP 119/56
[2025-04-11 17:08] LABS: Glucose - Point of Care 170 mg/dl (70-99)
[2025-04-11] MEDS: NOVOLOG FLEXPEN 8 UNITS SC (17:52)
--- NOTE | 2025-04-11 18:37 | PTCARENOTE ---
Dr. Montez confirmed that nursing does not need to change left lower foot wound. Patient taking Dilaudid and Benadryl per order. See MAR/flowsheets for further care details.
[2025-04-11 21:40] LABS: Glucose - Point of Care 181 mg/dl (70-99)
[2025-04-11] MEDS: LANTUS 0.3 UNITS SC (21:45)
[2025-04-11] MEDS: REMERON 30 MG PO (21:46)
[2025-04-11 23:00] VITALS: BP 166/83
[2025-04-12 06:00] VITALS: BMI 32.5
[2025-04-12] MEDS: TYLENOL PO (06:29)
[2025-04-12] MEDS: TYLENOL 1000 MG PO ×3 (06:39→18:12)
[2025-04-12] MEDS: BENADRYL 25 MG IV ×2 (06:40→16:02)
[2025-04-12] MEDS: DILAUDID 0.25 MG IV ×3 (06:40→19:18)
[2025-04-12 07:00] VITALS: BP 116/60
--- NOTE | 2025-04-12 07:30 | W.PN.HOSP.TC ---
Addendum entered and electronically signed by Reginald Araya MD 04/12/25 17:55:
Attending Addendum-
I saw and evaluated the patient. I reviewed the resident�s note and agree with findings and plan as documented in the resident�s note. Sub: Denies fevers chills. Complains of pain in left foot. Full 12 point ROS reviewed and negative except as
documented Exam: Vitals reviewed in chart GEN-NAD heart RRR lungs clear abd soft ND ND pos BS. LE - right BKA left TMA bandaged
Plan:
#Left foot TMA wound dehiscence and osteomyelitis
#h/o Left TMA on 03/08
- Wound culture 03/25-MRSA and VRE
- Wound cx-04/04-Enterobacter Cloacae
- Appreciate ID
- Continue Daptomycin #19, monitor CPK-WNL
- Continue ceftazidime/avibactam #7
- Blood cultures NGTD
- Pain control
- Status post debridement 03/25
- Pathology 03/25- focal acute osteomyelitis and detached fragment of fibrino-purulent exudate
- OR 04/04 - Debridement of infected left transmetatarsal amputation site including removal of nonviable bone
- Excisional debridement of left heel wound down to subcutaneous tissue
- path 04/04 finally back-acute and chronic osteomyelitis
- strict NWB
- will require additional surgery, podiatry made aware
#Acute bleed: from site of L TMA and Heel Debridement
#Acute blood Loss Anemia secondary to the above
#Chronic Anemia / Iron Deficiency
- transfused multiple units thus far
- hold asa, hold plavix
- ctm CBC daily
- tx for HB < 7
# Acute Hypoxemic Respiratory Failure
- resolved
# CAD with Stents
- hold plavix cont coreg
# HTN- cont imdur and coreg
# DM-I with neuropathy
- A1C 8.1->6.9
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
- cont L212/10 N (home dose- L30 BID, N10ac)
- cont duloxetine and gabapentin
# Urinary Retention
- Pt self caths at home
- DC'd brink
# AMBER
- resolved
- dc'd torsemide
- Continue monitoring BMP
#GERD
- Continue Pantoprazole
# CIDP
- Continue current meds, arrange for PLEX in outpatient setting once discharged
DVT Prophylaxis: SCDs
Full Code
Dispo eventual DC back to [facility]
Time spent coordinating care, review of plan of care with resident, personally reviewed records in EMR, med rec, consults, notes, labs, d/w nursing, CO, pharmacy� 52 mins
Original Note:
Today's Communication/Plan
-
Continue current analgesics and supportive measures
Continue wound care
Continue current antibiotics
Awaiting Pathology results from debridement
Upcoming OR with Podiatry following pathology results.
Assessment / Plan
Assessment / Plan
HPI: 29-year-old male with PMHx significant for insulin-dependent type 1 diabetes mellitus, CIDP, Hypertension, GERD, CKD stage IIIA, history of osteomyelitis and TMA is admitted to the hospital for evaluation and management of acute blood loss
anemia from TMA wound dehiscence.
Assessment/Plan:
-Left foot TMA site with wound dehiscence:
-History of left foot TMA on 03/08:
-Acute bleed: from site of L TMA and Heel Debridement (03/25 and 04/08)
-Acute blood Loss Anemia secondary to the above:
Vascular ultrasound showed no significant arterial stenosis on the left however Doppler waveforms suggest disease within the distal SFA/popliteal artery and infrapopliteal disease may also be present as per arterial studies. Multiple lymph nodes
were also seen in the left thigh which may be reactive.
Wound cultures grew MRSA, VRE )
Blood cultures did not show any growth
Underwent ultrasound of the left lower extremity did not show any evidence of DVT
Iron supplementation continue
Continue monitoring hemoglobin daily and transfuse as needed to maintain hemoglobin greater than 7
Status postdebridement 03/25.
Pathology results came back which showed focal acute osteomyelitis and detached fragment of fibrino-purulent exudate
Patient underwent his open TMA revision and wound debridement on 04/04 -there was significant drainage postoperatively -patient may benefit from a wound VAC if able
POD #8 on 04/12/25
Holding anticoagulants postoperatively
Continue antibiotics as per ID recommendations
Podiatry continues to follow and depending on pathology and culture of the surgical specimens care plan will be adjusted.
Podiatry recommends nonweightbearing to the left lower extremity and continued elevation of the extremity on 2-3 pillows
Appreciate ID recommendations
Continue Daptomycin (currently on day 19 on 04/12/2025)
Continue ceftazidime/avibactam 1250 mg (Day 7 on 04/12/25) as per infectious diseases recommendations
Patient's lab work on the morning of 04/07/2025 had a hemoglobin at 7.1 with a hematocrit of 20.7�repeat H&H ordered which was 6.7 - 1 PRBC ordered on 04/07/25
Podiatry has tentatively planned for revision surgery of the L foot after pathology returns from most recent debridement on 04/06/25
Patient had an episode of acute blood loss on 04/08/2025 where a large amount of blood was lost from his foot wound. 1 PRBC given on 04/08/25
-Itchy rash:
Continue IV Benadryl
-Diarrhea:
Check stool sample for C. difficile if loose stool continues
- Urinary retention:
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
Patient self caths
Brink catheter has been discontinued. Patient will be able to self cath as he usually does this in the outpatient setting
- History of ASCVD
- Chest pain:
EKG/troponin negative for any acute process
ASA held
Statin held
Continue Ranolazine
Continue Carvedilol
Type 1 diabetes with Hyperglycemia and neuropathy: Monitoring
A1C = 8.1% in January.
Diabetes BIOMEDICAL ELECTRONICS TECHNICIAN consulted, recommendations appreciated
Diabetic nurse practitioner recommended 28 units Lantus the evening of 04/06/2025
After initial Lantus dose we will continue the patient on Lantus 30 at bedtime with NovoLog 10 units.
Continue gabapentin, continue duloxetine
-AMBER on CKD IIIa: Unresolved
Continue to monitoring creatinine, has been hovering around 1.4/1.5
Urine studies show pre-renal cause, likely from hypovolemic state
Continued elevated creatinine level at 1.6 on 04/04/2025
Continue monitoring BMP.
Holding torsemide
IV fluid support
-GERD
Continue Pantoprazole
-Chronic inflammatory demyelinating polyneuropathy:
Continue current meds, will need to arrange for PLEX in outpatient setting once discharged
FULL CODE STATUS
Stress Ulcer Prophylaxis: Pantoprazole
DVT Prophylaxis: SCDs
Imaging:
-Left foot x-ray conducted on 03/21/2025:
Status post amputation at the level of the first through fifth proximal metatarsal bones.
No radiographic evidence for osteomyelitis.
- Bilateral lower extremity arterial ultrasound exam conducted on 03/23/2025:
1. Ankle-brachial indices and toe brachial indices could not be measured due to prior amputations.
2. No focal significant arterial stenosis demonstrated on the left side on duplex imaging. Spectral Doppler waveform analysis is suggestive of disease within the distal SFA/popliteal artery. Infrapopliteal disease may also be present.
3. Multiple lymph nodes are seen within the left thigh, which may be reactive.
-Peripheral vascular ultrasound of the left lower extremity conducted on 03/31/2025:
No evidence of DVT of the left lower extremity.
Procedures:
03/03/2025-initial amputation of left transmetatarsal
03/25/2025-debridement of infected left metatarsal amputation
04/04/2025-revision debridement of left heel wound with calcaneal biopsy.
Anticipated Discharge: > 48 hours
Subjective/Interval History
-
Date of Service: April 12, 2025
Met with patient at the bedside. Overall, he states that he is doing the same as he did yesterday. He has not had any episodes of diarrhea. He does not have any shortness of breath, chest tightness, or chest pain. He denies any episodes of acute
bleeding. Patient states he had a fever of greater than 100 yesterday and throughout most of last week - last febrile temperature was noted as 100F on 03/31/25.
Objective Data
-
Labs:
Laboratory Results
04/12/25
07:52
WBC 13.7 H
Hgb 7.6 L
Hct 23.5 L
Plt Count 606 H
Sodium 139
Potassium 4.8
Chloride 109 H
Carbon Dioxide 24
BUN 18
Creatinine 1.0
Glucose 65 L
Calcium 8.5
Total Bilirubin 0.4
AST 15 L
ALT < 10
Alkaline Phosphatase 70
Vital Signs:
Vital Signs
Temp Pulse Resp BP Pulse Ox
98.3 F 80 16 116/60 98
04/12/25 07:00 04/12/25 07:00 04/12/25 07:00 04/12/25 08:39 04/12/25 07:00
I&O
04/11/25 04/12/25 04/13/25
06:59 06:59 06:59
Intake Total 1160 / 1160
Output Total 2400 / 2400 2400 / 2400 1200 / 1200
Balance -2400 / -2400 -1240 / -1240 -1200 / -1200
Review of Systems
-
History Source: Patient
Constitutional: Reports No Symptoms
Respiratory: Reports No Symptoms
Genitourinary: Reports No Symptoms
Musculoskeletal: Reports No Symptoms
Skin: Reports No Symptoms
Neuro: Reports No Symptoms
Hematologic / Lymphatic: Reports No Symptoms
Allergy / Immunology: Reports No Symptoms
Physical Exam
-
General: Well Developed, Well Nourished, Comfortable, Conversant and Obese
HEENT: Normocephalic and Atraumatic
Respiratory: Clear to Auscultation and Non Labored Respirations; Negative Wheezes, Rales, Rhonchi or Crackles
Cardiac: Regular Rhythm and S1/S2; Negative Murmur, Calf Tenderness or Tachycardic
GI: Soft, Nontender, Nondistended and Normal Bowel Sounds; Negative Organomegaly
Genito-urinary: No Costovertebral Tender, Clear Urine and Brink
Musculoskeletal: No Clubbing, No Cyanosis and Other (R BKA; left hallux and second toe amputation; left foot wrapped in dressing, not bleeding at this time)
Skin: Warm and Dry; Negative Rash or Ulcers
Neuro: Awake, Alert, Oriented, AO x 3 and No Sensory Deficits
Psych: Calm
--- NOTE | 2025-04-12 08:02 | PN.DE.MGMTRT ---
Insulin Management
- -
04/12/2025: Diabetes Management Follow up
Patient admitted from [facility] 03/21 with c/o bleeding L heel wound. PMH type 1 diabetes, R BKA, L toe amputation, recent debridement L heel, Guillian Francis, CHF, HTN, CKD, CT, recent admission 01/21 and 03/05 s/p
transmetatarsal L amputation and debridement. Prior to admission was receiving Lantus 30 units BID with Humalog insulin ss AC. A1C on admission 6.9%, (improved from 8.1%). Cr 1.2, eGFR > 60-->1.7 today
Prior to incarceration was living in a residential per patient he will return there.
Patient is awake, alert, sleepy but easily awakens, resting in bed, offers no complaints, able to discuss diabetes care plan.
POD # 8 s/p Left transmetatarsal amputation and L heel debridement, hgb 7.8 today.
Glucose stable and in range, no episodes of Hypoglycemia over the weekend.
Fasting glucose today 78, AM novolog held, AM lantus administered. Pre lunch glucose 142.
Will decrease lantus to Lantus 25 units BID with breakfast and HS. AC NovoLog 10 units with breakfast and lunch and 8 units dinner with low corrective insulin. Will assess glucose trend and further adjust insulin if necessary.
Discussed with nurse. Will cont to follow.
Diabetes History
- -
Type of Diabetes: 1
Pre-Admission Diabetes Regimen
04/11/25
08:54
Creatinine 1.2
Lab Results
Hemoglobin A1c 6.9 % (4.0-5.6) H 03/22/25 06:24
Insulin Pump Settings
IP Diabetes Regimen
04/11/25 04/11/25 04/11/25
08:27 08:54 12:05
Glucose 103 H
POC Glucose 113 H 152 H
04/11/25 04/11/25
17:07 21:38
Glucose
POC Glucose 170 H 181 H
Meal type: Dinner
Meal type: Lunch
Meal type: Breakfast
Amount consumed: 100%
Amount consumed: 100%
Amount consumed: 100%
Patient Education
[2025-04-12 08:08] LABS: Glucose - Point of Care 78 mg/dl (70-99)
[2025-04-12 08:09] LABS: Hematocrit 23.5 % (39.0-52.0); Hemoglobin 7.6 g/dL (13.0-18.0); Mean Corp Hgb Conc. 32.3 g/dL (33.0-37.0); Mean Corpuscular Volume 89.4 fL (80.0-94.0); Platelet Count 606 10^3/uL (130-400); Red Cell Dist. Width 14.3 % (11.5-14.5)
[2025-04-12] MEDS: NOVOLOG FLEXPEN-LOW RESISTANCE SC ×2 (08:37→11:52)
[2025-04-12] MEDS: CYMBALTA DELAYED RELEASE 30 MG PO (08:38)
[2025-04-12] MEDS: RANEXA EXTENDED RELEASE 1000 MG PO ×2 (08:39→19:18)
[2025-04-12] MEDS: FEOSOL 325 MG PO ×2 (08:39→19:18)
[2025-04-12] MEDS: NEURONTIN 300 MG PO ×3 (08:39→21:25)
[2025-04-12] MEDS: COREG 25 MG PO ×2 (08:39→19:19)
[2025-04-12] MEDS: PROTONIX 40 MG PO (08:39)
[2025-04-12] MEDS: IMDUR (EXTENDED RELEASE) 60 MG PO (08:39)
[2025-04-12] MEDS: LANTUS 0.25 UNITS SC ×2 (08:40→21:25)
[2025-04-12] MEDS: NOVOLOG FLEXPEN SC ×2 (09:05→12:13)
[2025-04-12 09:11] LABS: ALT (SGPT) < 10 U/L (0-50); AST (SGOT) 15 U/L (17-59); Albumin 3.0 g/dl (3.5-5.0); Alkaline Phosphatase 70 U/L (38-126); Blood Urea Nitrogen 18 mg/dl (9-20); Calcium 8.5 mg/dl (8.4-10.2); Carbon Dioxide 24 mmol/L (22-30); Chloride 109 mmol/L (98-107); Estimated Creatinine Clearance > 125 ml/min; Glucose 65 mg/dl (70-99); Potassium 4.8 mmol/L (3.5-5.1); Sodium 139 mmol/L (135-145); Total Protein 6.5 g/dl (6.3-8.2); eGFR > 60.00
[2025-04-12 11:42] VITALS: BP 108/69; BP 113/61; PULSE 79; PULSE 83
[2025-04-12 11:43] VITALS: BP 108/69; BP 113/61
[2025-04-12 11:49] LABS: Glucose - Point of Care 142 mg/dl (70-99)
--- NOTE | 2025-04-12 13:10 | W.PN.ID1 ---
Date of Service
Date of Service: April 12, 2025
Today's Communication
Continue abx's.
Assessment / Plan
# Leukocytosis waxes and wanes
# Left foot TMA site wound dehiscence with necrosis
- Blood cx neg
- OR 03/25/25 s/p I+D, removal of necrotic bone at amp site, I+D heel wound to subcutaneous tisse; wound vac placed
OR cx Enterococcus (VRE) and MRSA.
03/25 Bone path: 2nd metatarsal focal acute osteo
- 04/04/25 s/p open TMA revision , heel wound debridement.
OR cx: Enterobacter cloacae - suspect MDR as previous isolate
04/04 Clearing fragment bone path: chronic osteo - informed Podiatry of result
- Per Podiatry, more surgery.
- Continue daptomycin (d19). Hold statin.
Follow weekly ck
- Continue ceftazidime/avibactam (d7)
- Follow wbc.
# Recent 03/08 s/p L TMA (surgical cure), heel debridement, and calcaneus biopsy (negative osteo)
# AMBER resolving - abx dosing renally adjusted
# Allergies: PCN, cephalosporin, meropenem, Vancomycin; tolerated Avyzaz
# Incarcerated
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
Diabetes mellitus
CAD status post PCI
CHF
hx CKD3
Hypertension
Guillain-Potts� syndrome/CIDP, plasma exchange q 2 months
PAD status post right BKA
Left hallux and second toe osteomyelitis status post amputation and debridement of left heel ulcer January 21, 2025
Left foot TMA, I+D left heel wound and bone biopsy of heel Mar 08, 2025
Chief Complaint
-: Leukocytosis and Other (Foot wound)
Subjective / Review of Systems
Stable
Vital Signs / Physical Exam
Vital Signs
Vital Signs
Temp Pulse Resp BP Pulse Ox
98.3 F 80 16 116/60 98
04/12/25 07:00 04/12/25 07:00 04/12/25 07:00 04/12/25 08:39 04/12/25 07:00
Physical Exam
Constitutional: Comfortable and Chronically Ill
Cardiovascular: Regular Rate and S1/S2
Pulmonary: Clear
Gastrointestinal: Soft, Non Tender, Non Distended and Normal Bowel Sounds
Wound: Other (left foot dressing dried blood)
Neurological: AO x 3
Lines: Other (LUE midline no erythema)
Objective Data
Lab Data
Lab Results
04/12/25 07:52
04/12/25 07:52
Estimated Creat Clear > 125 ml/min 04/12/25 07:52
Lactic Acid 0.8 mmol/L (0.7-2.0) 03/25/25 01:16
Total Bilirubin 0.4 mg/dl (0.2-1.3) 04/12/25 07:52
AST 15 U/L (17-59) L 04/12/25 07:52
ALT < 10 U/L (0-50) 04/12/25 07:52
Alkaline Phosphatase 70 U/L (38-126) 04/12/25 07:52
Most recent labs reviewed.
Micro Results:
03/25/25 16:52 Fungal Culture - Preliminary
Foot - Left Culture in progress.
Positive cultures are reported as soon as detected.
Final report to follow in four to five weeks.
04/04/25 16:30 Wound Culture - Final
Foot - Left Enterobacter cloacae
Gram Stain - Final
04/04/25 16:30 Anaerobic Culture - Final
Foot - Left NO ANAEROBES ISOLATED
03/31/25 10:51 Blood Culture - Final
Blood/Venous No Growth - Final Report
03/31/25 10:22 Blood Culture - Final
Blood/Venous No Growth - Final Report
03/25/25 09:33 Blood Culture - Final
Blood/Venous No Growth - Final Report
03/25/25 16:56 Wound Culture - Final
Foot - Left Staph aureus MRSA
Enterococcus faecalis - VRE
Gram Stain - Final
03/25/25 16:56 Anaerobic Culture - Final
Foot - Left NO ANAEROBES ISOLATED
03/25/25 16:52 Wound Culture - Final
Foot - Left Staph aureus MRSA
Enterococcus faecalis - VRE
Gram Stain - Final
03/25/25 16:52 Anaerobic Culture - Final
Foot - Left NO ANAEROBES ISOLATED
03/25/25 01:16 Blood Culture - Final
Blood/Venous No Growth - Final Report
03/27/25 10:35 Urine Culture - Final
Urine Anna albicans
03/24/25 12:51 Salmonella/Shigella Culture - Final
Feces/Stool No Salmonella, Shigella, Aeromonas or Plesiomonas species
isolated.
Campylobacter Culture - Final
No Campylobacter species isolated.
Shiga Toxin Test - Final
No E. coli Shiga Toxin 1 or 2 detected.
03/21/25 21:00 Blood Culture - Final
Blood/Venous No Growth - Final Report
03/21/25 21:00 Blood Culture - Final
Blood/Venous No Growth - Final Report
03/21/25 21:16 Wound Culture - Final
Foot - Left Enterococcus faecalis - VRE
Anna albicans
Gram Stain - Final
03/24/25 12:53 C. difficile GDH Antigen & Toxins - Final
Feces/Stool C. difficile antigen positive, toxin negative.
Clostridium difficile present, but toxin not detected.
Patient may be a carrier, colonized with nontoxinogenic
strain or the level of toxin in sample is below detection
limits. This information should be used in conjunction with
the patient's clinical history.
03/22/25 13:07 MRSA Screen - Final
Nose No Methicillin Resistant Staphylococcus aureus isolated.
Care Review
Plan reviewed with: Physician (Dr. Montez)
[2025-04-12 15:12] VITALS: BP 125/66
[2025-04-12] MEDS: CUBICIN 16 MG IV (15:55)
[2025-04-12 17:00] LABS: Glucose - Point of Care 243 mg/dl (70-99)
[2025-04-12] MEDS: NOVOLOG FLEXPEN-LOW RESISTANCE 2 UNITS SC (17:39)
[2025-04-12] MEDS: NOVOLOG FLEXPEN 8 UNITS SC (17:39)
--- NOTE | 2025-04-12 20:13 | W.PN.UPDATE ---
Update Note
Progress Note Update
29 yo M s/p L TMA revision and heel wound debridement, packed open.
- OR debridement tomorrow vs lisfranc disarticulation
-- bone bx : acute OM metatarsals
-- npo at midnight
-- xray reviewed
- hold AC
-Continue antibiotics per ID recs
-Strict NWB to LLE
-continue elevation of LLE on 2-3 pillows
[2025-04-12 20:49] LABS: Glucose - Point of Care 127 mg/dl (70-99)
[2025-04-12] MEDS: REMERON 30 MG PO (21:25)
[2025-04-12 23:00] VITALS: BP 141/67
[2025-04-13] VITALS (11 sets, daily range): BP systolic 0–131; BP diastolic 52–75; BMI 32.1
[2025-04-13] MEDS: TYLENOL PO ×3 (01:00→18:00)
[2025-04-13] MEDS: DILAUDID 0.25 MG IV ×2 (01:20→08:41)
[2025-04-13] MEDS: BENADRYL 25 MG IV ×3 (01:20→21:10)
[2025-04-13] MEDS: TYLENOL 1000 MG PO (04:19)
[2025-04-13 06:02] LABS: Glucose - Point of Care 156 mg/dl (70-99)
[2025-04-13] MEDS: NOVOLOG FLEXPEN-LOW RESISTANCE 1 UNITS SC (06:23)
[2025-04-13] MEDS: NOVOLOG FLEXPEN SC ×3 (06:53→18:15)
--- NOTE | 2025-04-13 07:30 | W.PN.HOSP.TC ---
Addendum entered and electronically signed by Reginald Araya MD 04/13/25 22:00:
Attending Addendum-
I saw and evaluated the patient. I reviewed the resident�s note and agree with findings and plan as documented in the resident�s note. Sub: Denies fevers chills. pain in foot controlled. 'i guess were back to [facility]. ill be here for a while'
anxious about surgery. Full 12 point ROS reviewed and negative except as documented Exam: Vitals reviewed in chart GEN-NAD heart RRR lungs clear abd soft ND ND pos BS. LE - right BKA left TMA bandaged wet with blood
Plan:
#Left foot TMA wound dehiscence and osteomyelitis
#h/o Left TMA on 03/08
- OR 03/25- debridement
- Pathology 03/25- focal acute osteomyelitis and detached fragment of fibrino-purulent exudate
- Wound culture 03/25-MRSA and VRE
- OR 04/04 - Debridement of infected left transmetatarsal amputation site including removal of nonviable bone
- Excisional debridement of left heel wound down to subcutaneous tissue
- path 04/04-acute and chronic osteomyelitis
- Wound cx-04/04-Enterobacter Cloacae
- OR 04/13-left lisfranc disarticulation closed and heel wound debridement
- wound cx 04/13-P
- Appreciate ID
- Continue Daptomycin #20, monitor CPK-WNL
- Continue ceftazidime/avibactam #8
- hopeful DC abx if surgical cure achieved
- Blood cultures NGTD
- Pain control
- strict NWB
#Acute bleed: from site of L TMA and Heel Debridement
#Acute blood Loss Anemia secondary to the above
#Chronic Anemia / Iron Deficiency
- transfused multiple units thus far
- hold asa, hold plavix
- ctm CBC daily
- tx for HB < 7
# CAD with Stents- hold plavix cont coreg
# HTN- cont imdur and coreg
# DM-I with neuropathy
- A1C 8.1->6.9
- Diabetes SENIOR PROGRAM MANAGER on board, input appreciated
- monitor closely was given full dose lantus while NPO.
- cont L25/30 N (home dose- L30 BID, N10ac)
- cont duloxetine and gabapentin
# Urinary Retention
- Pt self caths at home
# AMBER- resolved- dc torsemide
#GERD
- Continue Pantoprazole
# CIDP-pain control
DVT Prophylaxis: SCDs
Full Code
[facility]
Time spent coordinating care, review of plan of care with resident, personally reviewed records in EMR, med rec, consults, notes, labs, d/w nursing, CO, pharmacy pods� 53 mins
Original Note:
Today's Communication/Plan
-
Scheduled for OR with podiatry for debridement vs lisfranc disarticulation on 04/13/25
Continue Abx
Follow pathology samples from today's procedure. Left foot metatarsal and wound culture sent.
Assessment / Plan
Assessment / Plan
HPI: 29-year-old male with PMHx significant for insulin-dependent type 1 diabetes mellitus, CIDP, Hypertension, GERD, CKD stage IIIA, history of osteomyelitis and TMA is admitted to the hospital for evaluation and management of acute blood loss
anemia from TMA wound dehiscence.
Assessment/Plan:
-Left foot TMA site with wound dehiscence:
-History of left foot TMA on 03/08:
-Acute bleed: from site of L TMA and Heel Debridement (03/25 and 04/08)
-Acute blood Loss Anemia secondary to the above:
Vascular ultrasound showed no significant arterial stenosis on the left however Doppler waveforms suggest disease within the distal SFA/popliteal artery and infrapopliteal disease may also be present as per arterial studies. Multiple lymph nodes
were also seen in the left thigh which may be reactive.
Wound cultures grew MRSA, VRE )
Blood cultures did not show any growth
Underwent ultrasound of the left lower extremity did not show any evidence of DVT
Iron supplementation continue
Continue monitoring hemoglobin daily and transfuse as needed to maintain hemoglobin greater than 7
Status postdebridement 03/25.
Pathology results came back which showed focal acute osteomyelitis and detached fragment of fibrino-purulent exudate
Patient underwent his open TMA revision and wound debridement on 04/04 -there was significant drainage postoperatively -patient may benefit from a wound VAC if able
POD #8 on 04/12/25
Holding anticoagulants postoperatively
Continue antibiotics as per ID recommendations
Podiatry continues to follow and depending on pathology and culture of the surgical specimens care plan will be adjusted.
Podiatry recommends nonweightbearing to the left lower extremity and continued elevation of the extremity on 2-3 pillows
Appreciate ID recommendations
Continue Daptomycin (currently on day 19 on 04/12/2025)
Continue ceftazidime/avibactam 1250 mg (Day 7 on 04/12/25) as per infectious diseases recommendations
Patient's lab work on the morning of 04/07/2025 had a hemoglobin at 7.1 with a hematocrit of 20.7�repeat H&H ordered which was 6.7 - 1 PRBC ordered on 04/07/25
Podiatry has tentatively planned for revision surgery of the L foot after pathology returns from most recent debridement on 04/06/25
Patient had an episode of acute blood loss on 04/08/2025 where a large amount of blood was lost from his foot wound. 1 PRBC given on 04/08/25
Scheduled for OR with podiatry for debridement vs lisfranc disarticulation on 04/13/25
-Itchy rash:
Continue IV Benadryl
-Diarrhea:
Check stool sample for C. difficile if loose stool continues
- Urinary retention:
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
Patient self caths
Castillo catheter has been discontinued. Patient will be able to self cath as he usually does this in the outpatient setting
- History of ASCVD
- Chest pain:
EKG/troponin negative for any acute process
ASA held
Statin held
Continue Ranolazine
Continue Carvedilol
Type 1 diabetes with Hyperglycemia and neuropathy: Monitoring
A1C = 8.1% in January.
Diabetes SENIOR PROGRAM MANAGER consulted, recommendations appreciated
Diabetic nurse practitioner recommended 28 units Lantus the evening of 04/06/2025
Lantus adjusted to 25 units BID, Aspart adjusted to 10 units at breakfast and lunch, 8 units at dinner.
Continue gabapentin, continue duloxetine
-AMBER on CKD IIIa: Unresolved
Continue to monitoring creatinine, has been hovering around 1.4/1.5
Urine studies show pre-renal cause, likely from hypovolemic state
Continued elevated creatinine level at 1.6 on 04/04/2025
Continue monitoring BMP.
Holding torsemide
IV fluid support
-GERD
Continue Pantoprazole
-Chronic inflammatory demyelinating polyneuropathy:
Continue current meds, will need to arrange for PLEX in outpatient setting once discharged
FULL CODE STATUS
Stress Ulcer Prophylaxis: Pantoprazole
DVT Prophylaxis: SCDs
Imaging:
-Left foot x-ray conducted on 03/21/2025:
Status post amputation at the level of the first through fifth proximal metatarsal bones.
No radiographic evidence for osteomyelitis.
- Bilateral lower extremity arterial ultrasound exam conducted on 03/23/2025:
1. Ankle-brachial indices and toe brachial indices could not be measured due to prior amputations.
2. No focal significant arterial stenosis demonstrated on the left side on duplex imaging. Spectral Doppler waveform analysis is suggestive of disease within the distal SFA/popliteal artery. Infrapopliteal disease may also be present.
3. Multiple lymph nodes are seen within the left thigh, which may be reactive.
-Peripheral vascular ultrasound of the left lower extremity conducted on 03/31/2025:
No evidence of DVT of the left lower extremity.
Procedures:
03/03/2025-initial amputation of left transmetatarsal
03/25/2025-debridement of infected left metatarsal amputation
04/04/2025-revision debridement of left heel wound with calcaneal biopsy.
Anticipated Discharge: > 48 hours
Subjective/Interval History
-
Date of Service: April 13, 2025
Met with patient at the bedside. He offers no complaints at the present time. He states that he is in the same state of health that he was over the last few days and is aware of his upcoming surgery with podiatry. He is also aware of the most
recent pathology findings from his most recent debridement of the left foot. He is hopeful that this procedure will be successful in managing his ongoing pain and blood loss.
Objective Data
-
Labs:
Laboratory Results
04/13/25
07:30
WBC 12.8 H
Hgb 8.1 L
Hct 25.7 L
Plt Count 686 H
Sodium 140
Potassium 5.0
Chloride 108 H
Carbon Dioxide 25
BUN 18
Creatinine 1.1
Glucose 121 H
Calcium 8.4
Total Bilirubin 0.1 L
AST 11 L
ALT < 10
Alkaline Phosphatase 76
Vital Signs:
Vital Signs
Temp Pulse Resp BP Pulse Ox
97.6 F 93 20 131/75 97
04/13/25 07:30 04/13/25 07:30 04/13/25 07:30 04/13/25 08:36 04/13/25 07:30
I&O
04/12/25 04/13/25 04/14/25
06:59 06:59 06:59
Intake Total 1160 / 1160 1620 / 1620
Output Total 2400 / 2400 2400 / 2400
Balance -1240 / -1240 -780 / -780
Review of Systems
-
History Source: Patient
Constitutional: Reports No Symptoms
Respiratory: Reports No Symptoms
Genitourinary: Reports No Symptoms
Musculoskeletal: Reports No Symptoms
Skin: Reports No Symptoms
Neuro: Reports No Symptoms
Hematologic / Lymphatic: Reports No Symptoms
Allergy / Immunology: Reports No Symptoms
Physical Exam
-
General: Well Developed, Well Nourished, Comfortable, Conversant and Obese
HEENT: Normocephalic and Atraumatic
Respiratory: Clear to Auscultation and Non Labored Respirations; Negative Wheezes, Rales, Rhonchi or Crackles
Cardiac: Regular Rhythm and S1/S2; Negative Murmur, Calf Tenderness or Tachycardic
GI: Soft, Nontender, Nondistended and Normal Bowel Sounds; Negative Organomegaly
Genito-urinary: No Costovertebral Tender, Clear Urine and Castillo
Musculoskeletal: No Clubbing, No Cyanosis and Other (R BKA; left hallux and second toe amputation; left foot wrapped in dressing, not bleeding at this time)
Skin: Warm and Dry; Negative Rash or Ulcers
Neuro: Awake, Alert, Oriented, AO x 3 and No Sensory Deficits
Psych: Calm
[2025-04-13 07:48] LABS: Glucose - Point of Care 124 mg/dl (70-99)
[2025-04-13 08:18] LABS: Hematocrit 25.7 % (39.0-52.0); Hemoglobin 8.1 g/dL (13.0-18.0); Mean Corp Hgb Conc. 31.5 g/dL (33.0-37.0); Mean Corpuscular Volume 91.1 fL (80.0-94.0); Platelet Count 686 10^3/uL (130-400); Red Cell Dist. Width 14.2 % (11.5-14.5)
--- NOTE | 2025-04-13 08:18 | PN.DE.MGMTRT ---
Insulin Management
- -
04/13/2025: Diabetes Management Follow up
Patient admitted from [facility] 03/21 with c/o bleeding L heel wound. PMH type 1 diabetes, R BKA, L toe amputation, recent debridement L heel, Guillian Paulina, CHF, HTN, CKD, RI, recent admission 01/21 and 03/05 s/p
transmetatarsal L amputation and debridement. Prior to admission was receiving Lantus 30 units BID with Humalog insulin ss AC. A1C on admission 6.9%, (improved from 8.1%). Cr 1.1, eGFR > 60 today.
Prior to incarceration was living in a [facility] per patient he will return there.
Patient is awake, alert, sleepy but easily awakens, resting in bed, offers no complaints, able to discuss diabetes care plan.
POD # 9 s/p Left transmetatarsal amputation and L heel debridement, hgb 8.1 today. Patient for OR today with podiatry for further debridement.
Glucose stable and in range, no episodes of Hypoglycemia.
Fasting glucose today 156, patient is NPO for OR, received corrective insulin.
S/P OR will continue Lantus 25 units BID with breakfast and HS. AC NovoLog 10 units with breakfast and lunch and 8 units dinner with low corrective insulin. Will assess glucose trend and further adjust insulin if necessary.
Discussed with nurse. Will cont to follow.
Diabetes History
- -
Type of Diabetes: 1
Pre-Admission Diabetes Regimen
04/12/25
07:52
Creatinine 1.0
Lab Results
Hemoglobin A1c 6.9 % (4.0-5.6) H 03/22/25 06:24
Insulin Pump Settings
IP Diabetes Regimen
04/12/25 04/12/25 04/12/25
07:52 11:47 16:58
Glucose 65 L
POC Glucose 142 H 243 H
09/30/25 10/01/25 10/01/25
20:48 06:01 07:47
Glucose
POC Glucose 127 H 156 H 124 H
Meal type: Lunch
Meal type: Breakfast
Amount consumed: 100%
Amount consumed: 100%
Patient Education
[2025-04-13] MEDS: IMDUR (EXTENDED RELEASE) 60 MG PO (08:35)
[2025-04-13] MEDS: NEURONTIN 300 MG PO ×2 (08:35→21:06)
[2025-04-13] MEDS: RANEXA EXTENDED RELEASE 1000 MG PO ×2 (08:35→20:08)
[2025-04-13] MEDS: FEOSOL 325 MG PO ×2 (08:35→20:08)
[2025-04-13] MEDS: CYMBALTA DELAYED RELEASE 30 MG PO (08:35)
[2025-04-13] MEDS: PROTONIX 40 MG PO (08:35)
[2025-04-13] MEDS: COREG 25 MG PO (08:36)
[2025-04-13] MEDS: LANTUS 0.25 UNITS SC ×2 (08:38→21:47)
[2025-04-13 09:14] LABS: ALT (SGPT) < 10 U/L (0-50); AST (SGOT) 11 U/L (17-59); Albumin 3.0 g/dl (3.5-5.0); Alkaline Phosphatase 76 U/L (38-126); Blood Urea Nitrogen 18 mg/dl (9-20); Calcium 8.4 mg/dl (8.4-10.2); Carbon Dioxide 25 mmol/L (22-30); Chloride 108 mmol/L (98-107); Estimated Creatinine Clearance > 125 ml/min; Glucose 121 mg/dl (70-99); Potassium 5.0 mmol/L (3.5-5.1); Sodium 140 mmol/L (135-145); Total Protein 6.4 g/dl (6.3-8.2); eGFR > 60.00
--- NOTE | 2025-04-13 11:53 | W.PN.ID1 ---
Date of Service
Date of Service: April 13, 2025
Today's Communication
Continue abx's.
Assessment / Plan
# Osteomyelitis Left foot TMA site wound dehiscence with necrosis
# Leukocytosis waxes and wanes
# Allergies: PCN, cephalosporin, meropenem, Vancomycin; tolerated Avyzaz
# Incarcerated
- Blood cx's neg
- OR 03/25/25 s/p I+D, removal of necrotic bone at amp site, I+D heel wound to subcutaneous tisse; wound vac placed
OR cx Enterococcus (VRE) and MRSA.
03/25 Bone path: 2nd metatarsal focal acute osteo
- 04/04/25 s/p open TMA revision , heel wound debridement.
OR cx: Enterobacter cloacae - suspect MDR as previous isolate
04/04 Clearing fragment bone path: chronic osteo
- 04/13 to OR today
- Continue daptomycin (start date 03/25). Hold statin.
Follow CK qMonday, ordered.
- Continue ceftazidime/avibactam (start date 04/06)
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
Diabetes mellitus
CAD status post PCI
CHF
hx CKD3
Hypertension
Guillain-Potts� syndrome/CIDP, plasma exchange q 2 months
PAD status post right BKA
Left hallux and second toe osteomyelitis status post amputation and debridement of left heel ulcer January 21, 2025
Left foot TMA, I+D left heel wound and bone biopsy of heel (neg osteo) Mar 08, 2025 (path surgical cure)
Chief Complaint
-: Leukocytosis and Other (Foot wound)
Subjective / Review of Systems
Will go to OR today. No new issues.
Vital Signs / Physical Exam
Vital Signs
Vital Signs
Temp Pulse Resp BP Pulse Ox
97.6 F 93 20 131/75 97
04/13/25 07:30 10/01/25 07:30 04/13/25 07:30 04/13/25 08:36 04/13/25 07:30
Physical Exam
Constitutional: Comfortable and Chronically Ill
Cardiovascular: Regular Rate and S1/S2
Pulmonary: Clear
Gastrointestinal: Soft, Non Tender, Non Distended and Normal Bowel Sounds
Wound: Other (left foot dressing dried blood)
Neurological: AO x 3
Lines: Other (LUE midline no erythema)
Objective Data
Lab Data
Lab Results
04/13/25 07:30
04/13/25 07:30
Estimated Creat Clear > 125 ml/min 04/13/25 07:30
Lactic Acid 0.8 mmol/L (0.7-2.0) 03/25/25 01:16
Total Bilirubin 0.1 mg/dl (0.2-1.3) L 04/13/25 07:30
AST 11 U/L (17-59) L 04/13/25 07:30
ALT < 10 U/L (0-50) 04/13/25 07:30
Alkaline Phosphatase 76 U/L (38-126) 04/13/25 07:30
Most recent labs reviewed.
Micro Results:
03/25/25 16:52 Fungal Culture - Preliminary
Foot - Left Culture in progress.
Positive cultures are reported as soon as detected.
Final report to follow in four to five weeks.
04/04/25 16:30 Wound Culture - Final
Foot - Left Enterobacter cloacae
Gram Stain - Final
04/04/25 16:30 Anaerobic Culture - Final
Foot - Left NO ANAEROBES ISOLATED
03/31/25 10:51 Blood Culture - Final
Blood/Venous No Growth - Final Report
03/31/25 10:22 Blood Culture - Final
Blood/Venous No Growth - Final Report
03/25/25 09:33 Blood Culture - Final
Blood/Venous No Growth - Final Report
03/25/25 16:56 Wound Culture - Final
Foot - Left Staph aureus MRSA
Enterococcus faecalis - VRE
Gram Stain - Final
03/25/25 16:56 Anaerobic Culture - Final
Foot - Left NO ANAEROBES ISOLATED
03/25/25 16:52 Wound Culture - Final
Foot - Left Staph aureus MRSA
Enterococcus faecalis - VRE
Gram Stain - Final
03/25/25 16:52 Anaerobic Culture - Final
Foot - Left NO ANAEROBES ISOLATED
03/25/25 01:16 Blood Culture - Final
Blood/Venous No Growth - Final Report
03/27/25 10:35 Urine Culture - Final
Urine Anna albicans
03/24/25 12:51 Salmonella/Shigella Culture - Final
Feces/Stool No Salmonella, Shigella, Aeromonas or Plesiomonas species
isolated.
Campylobacter Culture - Final
No Campylobacter species isolated.
Shiga Toxin Test - Final
No E. coli Shiga Toxin 1 or 2 detected.
03/21/25 21:00 Blood Culture - Final
Blood/Venous No Growth - Final Report
03/21/25 21:00 Blood Culture - Final
Blood/Venous No Growth - Final Report
03/21/25 21:16 Wound Culture - Final
Foot - Left Enterococcus faecalis - VRE
Anna albicans
Gram Stain - Final
03/24/25 12:53 C. difficile GDH Antigen & Toxins - Final
Feces/Stool C. difficile antigen positive, toxin negative.
Clostridium difficile present, but toxin not detected.
Patient may be a carrier, colonized with nontoxinogenic
strain or the level of toxin in sample is below detection
limits. This information should be used in conjunction with
the patient's clinical history.
03/22/25 13:07 MRSA Screen - Final
Nose No Methicillin Resistant Staphylococcus aureus isolated.
--- NOTE | 2025-04-13 12:10 | CM ---
CM reviewed chart, guards seen bedside.
Patient for OR today.
Continue antibiotics.
NWB to LLE.
CM will continue to follow for all d/c planning needs.
[facility]
Report: [phone]

Plan: Eventual return to [facility]
[2025-04-13 12:42] LABS: Glucose - Point of Care 80 mg/dl (70-99)
[2025-04-13] MEDS: NOVOLOG FLEXPEN-LOW RESISTANCE SC ×2 (12:43→18:04)
--- NOTE | 2025-04-13 12:50 | PTCARENOTE ---
updated nurse Magy at [facility]
[2025-04-13 13:40] LABS: Glucose - Point of Care 70 mg/dl (70-99)
--- NOTE | 2025-04-13 14:15 | PTCARENOTE ---
Patient ok to go to OR per MD Araya. Patient AAOx4, patient in NAD. VSS
[2025-04-13 15:08] LABS: Glucose - Point of Care 83 mg/dl (70-99)
[2025-04-13] MEDS: NEURONTIN PO (16:00)
[2025-04-13 16:08] LABS: Glucose - Point of Care 65 mg/dl (70-99)
--- NOTE | 2025-04-13 17:19 | W.PN.UPDATE ---
Update Note
Progress Note Update
29 yo M s/p L lisfranc disarticulation closed and heel wound debridement.
- strict NWB LLE
- Drain will be pulled Friday
- Drain stripped q6
- Continue IV abx per ID recs
-- post lavage wound cx, bone bx
- restart AC tomorrow
-- ABLA : follow AM labs
- dressings C/D/I, reinforce as needed
-continue elevation of LLE on 2-3 pillows and offloading precautions
- will reassess on AM rounds
[2025-04-13 17:23] LABS: Glucose - Point of Care 105 mg/dl (70-99)
[2025-04-13] MEDS: DILAUDID 0.5 MG IV ×2 (17:35→17:57)
[2025-04-13] MEDS: ZOFRAN 4 MG IV (17:35)
[2025-04-13] MEDS: CUBICIN IV (17:48)
[2025-04-13] MEDS: COMPAZINE 5 MG IV (17:57)
--- NOTE | 2025-04-13 18:35 | PTCARENOTE ---
Patient returned to unit from OR. VSS. Patient drowsy and awakes to voice. IV antibiotics given. call morales in reach. safety maintained.
[2025-04-13] MEDS: COREG PO (20:15)
[2025-04-13] MEDS: NSS 500 IV (20:38)
[2025-04-13] MEDS: REMERON 30 MG PO (21:06)
[2025-04-13 21:32] LABS: Glucose - Point of Care 321 mg/dl (70-99)
[2025-04-14] VITALS (9 sets, daily range): BP systolic 102–135; BP diastolic 47–83; BMI 31.9
[2025-04-14] MEDS: TYLENOL PO ×2 (01:08→06:28)
[2025-04-14] MEDS: DILAUDID 0.25 MG IV ×3 (07:53→20:03)
[2025-04-14] MEDS: FEOSOL 325 MG PO ×2 (07:55→22:46)
[2025-04-14] MEDS: NEURONTIN 300 MG PO ×3 (07:55→22:46)
[2025-04-14] MEDS: COREG 25 MG PO ×2 (07:55→22:47)
[2025-04-14] MEDS: IMDUR (EXTENDED RELEASE) 60 MG PO (07:55)
[2025-04-14] MEDS: RANEXA EXTENDED RELEASE 1000 MG PO ×2 (07:55→22:46)
[2025-04-14] MEDS: BENADRYL 25 MG IV ×2 (07:55→20:03)
[2025-04-14] MEDS: CYMBALTA DELAYED RELEASE 30 MG PO (07:55)
[2025-04-14] MEDS: PROTONIX 40 MG PO (07:55)
[2025-04-14 07:58] LABS: Glucose - Point of Care 341 mg/dl (70-99)
[2025-04-14] MEDS: LANTUS 0.25 UNITS SC (07:59)
[2025-04-14] MEDS: NOVOLOG FLEXPEN-LOW RESISTANCE 4 UNITS SC ×2 (07:59→12:16)
[2025-04-14] MEDS: NOVOLOG FLEXPEN 10 UNITS SC ×2 (08:01→12:17)
[2025-04-14 08:21] LABS: Hematocrit 22.7 % (39.0-52.0); Hemoglobin 7.1 g/dL (13.0-18.0); Mean Corp Hgb Conc. 31.3 g/dL (33.0-37.0); Mean Corpuscular Volume 93.4 fL (80.0-94.0); Platelet Count 686 10^3/uL (130-400); Red Cell Dist. Width 14.1 % (11.5-14.5)
--- NOTE | 2025-04-14 08:21 | W.PN.HOSP.TC ---
Addendum entered and electronically signed by Reginald Araya MD 04/14/25 20:54:
Attending Addendum-
I saw and evaluated the patient. I reviewed the resident�s note and agree with findings and plan as documented in the resident�s note. Sub: Denies fevers chills. seen with podiatry. foot oozing blood. Full 12 point ROS reviewed and negative except
as documented Exam: Vitals reviewed in chart GEN-NAD heart RRR lungs clear abd soft ND ND pos BS. LE - right BKA left TMA bandaged wet with blood CRAA drain in place
Plan:
#Left foot TMA wound dehiscence and osteomyelitis
#h/o Left TMA on 03/08
- OR 03/25- debridement
- Path 03/25- focal acute osteomyelitis and detached fragment of fibrino-purulent exudate
- Wound culture 03/25-MRSA and VRE
- OR 04/04 - Debridement of infected left transmetatarsal amputation site including removal of nonviable bone
- Excisional debridement of left heel wound down to subcutaneous tissue
- path 04/04-acute and chronic osteomyelitis
- Wound cx-04/04-Enterobacter Cloacae
- OR 04/13-left lisfranc disarticulation closed wound and heel wound debridement, CARA drain placed
- DC CARA drain in am
- wound cx 04/13-P, bone bx-P
- Appreciate ID
- Continue Daptomycin monitor CPK-WNL
- Continue ceftazidime/avibactam
- hopeful DC abx if surgical cure achieved
- Blood cultures NGTD
- Pain control
- strict NWB
# Acute Mild hyperkalemia
- Lokelma x 1, albuterol nebs
- cont insulin regimen
- IV insulin if further increase
- repeat BMP in am
#Acute bleed: from site of L TMA and Heel Debridement
#Acute blood Loss Anemia secondary to the above
#Chronic Anemia / Iron Deficiency
- transfused multiple units thus far
- hold asa, hold plavix
- ctm CBC daily
- transfuse 1 unit PRBC today
- tx for HB < 7
# CAD with Stents- hold plavix cont coreg
# HTN- cont imdur and coreg
# DM-I with neuropathy
- A1C 8.1->6.9
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
- uncontrolled
- increase back to home dose L- N-04/22/10
- cont duloxetine and gabapentin
# Urinary Retention
- Pt self caths at home
# AMBER- resolved- dc torsemide
#GERD
- Continue Pantoprazole
# CIDP-pain control
DVT Prophylaxis: SCDs
Full Code
Dispo eventual DC back to [facility]
Time spent coordinating care, review of plan of care with resident, personally reviewed records in EMR, med rec, consults, notes, labs, d/w nursing, CO, pharmacy, pods� 54 mins
Original Note:
Today's Communication/Plan
-
Patient tolerated the surgical procedure well�strict nonweightbearing on the left lower extremity
Will follow post lavage wound culture and bone culture
Patient's hemoglobin was 7.1 this morning�Will repeat H&H and transfuse PRBCs if hemoglobin is less than 7
CARA drain will likely be pulled Friday
Continue current antibiotics�appreciate infectious diseases recommendations
Will consider resuming anticoagulation tomorrow depending on hemoglobin stability
Assessment / Plan
Assessment / Plan
HPI: 29-year-old male with PMHx significant for insulin-dependent type 1 diabetes mellitus, CIDP, Hypertension, GERD, CKD stage IIIA, history of osteomyelitis and TMA is admitted to the hospital for evaluation and management of acute blood loss
anemia from TMA wound dehiscence.
Assessment/Plan:
-Left foot TMA site with wound dehiscence:
-History of left foot TMA on 03/08:
-Acute bleed: from site of L TMA and Heel Debridement (03/25 and 04/08)
-Acute blood Loss Anemia secondary to the above:
Vascular ultrasound showed no significant arterial stenosis on the left however Doppler waveforms suggest disease within the distal SFA/popliteal artery and infrapopliteal disease may also be present as per arterial studies. Multiple lymph nodes
were also seen in the left thigh which may be reactive.
Wound cultures grew MRSA, VRE
Blood cultures did not show any growth
Underwent ultrasound of the left lower extremity did not show any evidence of DVT
Iron supplementation continue
Continue monitoring hemoglobin daily and transfuse as needed to maintain hemoglobin greater than 7
Status postdebridement 03/25.
Pathology results came back which showed focal acute osteomyelitis and detached fragment of fibrino-purulent exudate
Patient underwent his open TMA revision and wound debridement on 04/04 -there was significant drainage postoperatively - pathology positive for acute and chronic osteomyelitis
Wound culture from 04/04 positive for Enterobacter Cloacae
Continue antibiotics as per ID recommendations
Podiatry recommends nonweightbearing to the left lower extremity and continued elevation of the extremity on 2-3 pillows
Appreciate ID recommendations
Continue Daptomycin (currently on day 21 on 04/14/2025)
Continue ceftazidime/avibactam 1250 mg (Day 9 on 04/14/25) as per infectious diseases recommendations
Patient's lab work on the morning of 04/07/2025 had a hemoglobin at 7.1 with a hematocrit of 20.7�repeat H&H ordered which was 6.7 - 1 PRBC ordered on 04/07/25
Podiatry has tentatively planned for revision surgery of the L foot after pathology returns from most recent debridement on 04/06/25
Patient had an episode of acute blood loss on 04/08/2025 where a large amount of blood was lost from his foot wound. 1 PRBC given on 04/08/25
Scheduled for OR with podiatry for debridement vs lisfranc disarticulation on 04/13/25 - procedure tolerated well
Patient's Hgb is 7.1 on 04/14/25 - repeat H&H ordered - if <7 then will transfuse PRBCs
Continue Holding anticoagulants postoperatively - will resume 24hrs postop while monitoring Hgb
-Itchy rash:
Continue IV Benadryl
-Diarrhea:
Check stool sample for C. difficile if loose stool continues
- Urinary retention:
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
Patient self caths
Castillo catheter has been discontinued. Patient will be able to self cath as he usually does this in the outpatient setting
- History of ASCVD
- Chest pain:
EKG/troponin negative for any acute process
ASA held
Statin held
Continue Ranolazine
Continue Carvedilol
Type 1 diabetes with Hyperglycemia and neuropathy: Monitoring
A1C = 8.1% in January. Hba1c on 03/21/25 was 6.9 indicating improvement in overall glycemic control
Diabetes GATEHOUSE ATTENDANT consulted, recommendations appreciated
Lantus adjusted to 25 units BID, Aspart adjusted to 10 units at breakfast and lunch, 8 units at dinner.
Continue gabapentin, continue duloxetine
-AMBER on CKD IIIa: Unresolved
Continue to monitoring creatinine, has been hovering around 1.4/1.5
Urine studies show pre-renal cause, likely from hypovolemic state
Continued elevated creatinine level at 1.6 on 04/04/2025
Continue monitoring BMP.
Holding torsemide
IV fluid support
-GERD
Continue Pantoprazole
-Chronic inflammatory demyelinating polyneuropathy:
Continue current meds, will need to arrange for PLEX in outpatient setting once discharged
FULL CODE STATUS
Stress Ulcer Prophylaxis: Pantoprazole
DVT Prophylaxis: SCDs
Imaging:
-Left foot x-ray conducted on 03/21/2025:
Status post amputation at the level of the first through fifth proximal metatarsal bones.
No radiographic evidence for osteomyelitis.
- Bilateral lower extremity arterial ultrasound exam conducted on 03/23/2025:
1. Ankle-brachial indices and toe brachial indices could not be measured due to prior amputations.
2. No focal significant arterial stenosis demonstrated on the left side on duplex imaging. Spectral Doppler waveform analysis is suggestive of disease within the distal SFA/popliteal artery. Infrapopliteal disease may also be present.
3. Multiple lymph nodes are seen within the left thigh, which may be reactive.
-Peripheral vascular ultrasound of the left lower extremity conducted on 03/31/2025:
No evidence of DVT of the left lower extremity.
Procedures:
03/03/2025-initial amputation of left transmetatarsal
03/25/2025-debridement of infected left metatarsal amputation
04/04/2025-revision debridement of left heel wound with calcaneal biopsy.
Anticipated Discharge: > 48 hours
Subjective/Interval History
-
Date of Service: April 14, 2025
Met with patient at the bedside. He states that he does not feel that great after his operation but hopes that he will recover well. He notes that his foot has been oozing serous fluid with blood but it looks like it is stopped. Patient did not
order his breakfast yet but intends to eat.
Objective Data
-
Labs:
Laboratory Results
04/14/25
07:42
WBC 13.8 H
Hgb 7.1 L
Hct 22.7 L
Plt Count 686 H
Sodium Pending
Potassium Pending
Chloride Pending
Carbon Dioxide Pending
BUN Pending
Creatinine Pending
Glucose Pending
Calcium Pending
Total Bilirubin Pending
AST Pending
ALT Pending
Alkaline Phosphatase Pending
Vital Signs:
Vital Signs
Temp Pulse Resp BP Pulse Ox
97.6 F 85 16 135/83 100
04/14/25 03:00 04/14/25 03:00 04/14/25 03:00 04/14/25 07:55 04/14/25 03:00
I&O
04/13/25 04/14/25 04/15/25
06:59 06:59 06:59
Intake Total 1620 / 1620 150 / 150
Output Total 2400 / 2400 1480 / 1480
Balance -780 / -780 -1330 / -1330
Review of Systems
-
History Source: Patient
Constitutional: Reports Fatigue
EENT: Reports No Symptoms Reported
Respiratory: Reports No Symptoms
Cardiac: Reports No Symptoms
Abdomen/GI: Reports No Symptoms
Breast: Reports No Symptoms
Musculoskeletal: Reports Joint Pain (Left foot) and Muscle Pain (Left foot)
Skin: Reports Other (Left foot bleeding)
Neuro: Reports No Symptoms
Endocrine: Reports No Symptoms
Hematologic / Lymphatic: Reports Bleeding (Left foot)
Physical Exam
-
General: Well Developed, Well Nourished, Comfortable, Conversant and Obese
HEENT: Normocephalic and Atraumatic
Respiratory: Clear to Auscultation and Non Labored Respirations; Negative Wheezes, Rales, Rhonchi or Crackles
Cardiac: Regular Rhythm and S1/S2; Negative Murmur, Calf Tenderness or Tachycardic
GI: Soft, Nontender, Nondistended and Normal Bowel Sounds; Negative Organomegaly
Genito-urinary: No Costovertebral Tender, Clear Urine and Castillo
Musculoskeletal: No Clubbing, No Cyanosis and Other (R BKA; left hallux and second toe amputation; left foot wrapped in dressing, not bleeding at this time)
Skin: Warm, Dry and Other (CARA Drain with bloody fluid filling 1/4 of the bulb); Negative Rash or Ulcers
Neuro: Awake, Alert, Oriented, AO x 3 and No Sensory Deficits
Psych: Calm
--- NOTE | 2025-04-14 08:21 | PN.DE.MGMTRT ---
Insulin Management
- -
04/14/2025: Diabetes Management Follow up
Patient admitted from [facility] 03/21 with c/o bleeding L heel wound. PMH type 1 diabetes, R BKA, L toe amputation, recent debridement L heel, [place], CHF, HTN, CKD, [place], recent admission 01/21 and 03/05 s/p
transmetatarsal L amputation and debridement. Prior to admission was receiving Lantus 30 units BID with Humalog insulin ss AC. A1C on admission 6.9%, (improved from 8.1%). Cr 1.1, eGFR > 60 today.
Prior to incarceration was living in a residential per patient he will return there.
Patient is awake, alert, sleepy but easily awakens, resting in bed, offers no complaints, able to discuss diabetes care plan.
POD # 1 s/p Left Lisfranc disarticulation closed and L heel debridement, hgb 8.1 today.
Glucose slightly low, 65 late in day due to prolonged NPO HS glucose 321..
Fasting glucose today
Will continue Lantus 25 units BID with breakfast and HS. AC NovoLog 10 units with breakfast and lunch and 8 units dinner with low corrective insulin. Will assess glucose trend and further adjust insulin if necessary.
Discussed with nurse. Will cont to follow.
Diabetes History
- -
Type of Diabetes: 1
Pre-Admission Diabetes Regimen
04/13/25
07:30
Creatinine 1.1
Lab Results
Hemoglobin A1c 6.9 % (4.0-5.6) H 03/22/25 06:24
Insulin Pump Settings
IP Diabetes Regimen
04/13/25 04/13/25 04/13/25
07:30 12:40 13:39
Glucose 121 H
POC Glucose 80 70
04/13/25 04/13/25 04/13/25
15:07 16:06 17:22
Glucose
POC Glucose 83 65 L 105 H
04/13/25 04/14/25
21:31 07:57
Glucose
POC Glucose 321 H 341 H
Meal type: Dinner
Meal type: Lunch
Meal type: Breakfast
Amount consumed: 100%
Patient Education
[2025-04-14 08:43] LABS: ALT (SGPT) < 10 U/L (0-50); AST (SGOT) 10 U/L (17-59); Albumin 2.8 g/dl (3.5-5.0); Alkaline Phosphatase 74 U/L (38-126); Blood Urea Nitrogen 27 mg/dl (9-20); Calcium 8.2 mg/dl (8.4-10.2); Carbon Dioxide 26 mmol/L (22-30); Chloride 107 mmol/L (98-107); Estimated Creatinine Clearance 106 ml/min; Glucose 351 mg/dl (70-99); Potassium 5.6 mmol/L (3.5-5.1); Sodium 139 mmol/L (135-145); Total Protein 6.1 g/dl (6.3-8.2); eGFR > 60.00
--- NOTE | 2025-04-14 11:30 | W.PN.ID1 ---
Date of Service
Date of Service: April 14, 2025
Today's Communication
continue current antibiotics
Assessment / Plan
# Osteomyelitis Left foot TMA site wound dehiscence with necrosis
# Leukocytosis waxes and wanes
# Allergies: PCN, cephalosporin, meropenem, Vancomycin; tolerated Avyzaz
# Incarcerated
- Blood cx's neg
- OR 03/25/25 s/p I+D, removal of necrotic bone at amp site, I+D heel wound to subcutaneous tisse; wound vac placed
OR cx Enterococcus (VRE) and MRSA.
03/25 Bone path: 2nd metatarsal focal acute osteo
- 04/04/25 s/p open TMA revision , heel wound debridement.
OR cx: Enterobacter cloacae - suspect MDR as previous isolate
04/04 Clearing fragment bone path: chronic osteo
- 04/13 s/p lisfranc disarticulation and heel wound debridement
OR cx in progress, bone biopsy
- Continue daptomycin (start date 03/25). Hold statin.
Follow CK qMonday, ordered.
- Continue ceftazidime/avibactam (start date 04/06)
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
Diabetes mellitus
CAD status post PCI
CHF
hx CKD3
Hypertension
Guillain-Potts� syndrome/CIDP, plasma exchange q 2 months
PAD status post right BKA
Left hallux and second toe osteomyelitis status post amputation and debridement of left heel ulcer January 21, 2025
Left foot TMA, I+D left heel wound and bone biopsy of heel (neg osteo) Mar 08, 2025 (path surgical cure)
Chief Complaint
-: Leukocytosis and Other (Foot wound)
Vital Signs / Physical Exam
Vital Signs
Vital Signs
Temp Pulse Resp BP Pulse Ox
97.9 F 88 16 135/83 99
04/14/25 08:25 04/14/25 08:25 04/14/25 08:25 04/14/25 08:25 04/14/25 08:25
Objective Data
Lab Data
Lab Results
04/14/25 13:00
04/14/25 13:00
Estimated Creat Clear 106 ml/min 04/14/25 07:42
Lactic Acid 0.8 mmol/L (0.7-2.0) 03/25/25 01:16
Total Bilirubin 0.2 mg/dl (0.2-1.3) 04/14/25 07:42
AST 10 U/L (17-59) L 04/14/25 07:42
ALT < 10 U/L (0-50) 04/14/25 07:42
Alkaline Phosphatase 74 U/L (38-126) 04/14/25 07:42
Most recent labs reviewed.
Micro Results:
04/13/25 16:07 Wound Culture - Pending
Foot - Left Gram Stain - Preliminary
04/13/25 16:07 Anaerobic Culture - Pending
Foot - Left
03/25/25 16:52 Fungal Culture - Preliminary
Foot - Left Culture in progress.
Positive cultures are reported as soon as detected.
Final report to follow in four to five weeks.
04/04/25 16:30 Wound Culture - Final
Foot - Left Enterobacter cloacae
Gram Stain - Final
04/04/25 16:30 Anaerobic Culture - Final
Foot - Left NO ANAEROBES ISOLATED
03/31/25 10:51 Blood Culture - Final
Blood/Venous No Growth - Final Report
03/31/25 10:22 Blood Culture - Final
Blood/Venous No Growth - Final Report
03/25/25 09:33 Blood Culture - Final
Blood/Venous No Growth - Final Report
03/25/25 16:56 Wound Culture - Final
Foot - Left Staph aureus MRSA
Enterococcus faecalis - VRE
Gram Stain - Final
03/25/25 16:56 Anaerobic Culture - Final
Foot - Left NO ANAEROBES ISOLATED
03/25/25 16:52 Wound Culture - Final
Foot - Left Staph aureus MRSA
Enterococcus faecalis - VRE
Gram Stain - Final
03/25/25 16:52 Anaerobic Culture - Final
Foot - Left NO ANAEROBES ISOLATED
03/25/25 01:16 Blood Culture - Final
Blood/Venous No Growth - Final Report
03/27/25 10:35 Urine Culture - Final
Urine Anna albicans
03/24/25 12:51 Salmonella/Shigella Culture - Final
Feces/Stool No Salmonella, Shigella, Aeromonas or Plesiomonas species
isolated.
Campylobacter Culture - Final
No Campylobacter species isolated.
Shiga Toxin Test - Final
No E. coli Shiga Toxin 1 or 2 detected.
03/21/25 21:00 Blood Culture - Final
Blood/Venous No Growth - Final Report
03/21/25 21:00 Blood Culture - Final
Blood/Venous No Growth - Final Report
03/21/25 21:16 Wound Culture - Final
Foot - Left Enterococcus faecalis - VRE
Anna albicans
Gram Stain - Final
03/24/25 12:53 C. difficile GDH Antigen & Toxins - Final
Feces/Stool C. difficile antigen positive, toxin negative.
Clostridium difficile present, but toxin not detected.
Patient may be a carrier, colonized with nontoxinogenic
strain or the level of toxin in sample is below detection
limits. This information should be used in conjunction with
the patient's clinical history.
03/22/25 13:07 MRSA Screen - Final
Nose No Methicillin Resistant Staphylococcus aureus isolated.
[2025-04-14 12:03] LABS: Glucose - Point of Care 357 mg/dl (70-99)
[2025-04-14 12:16] LABS: Hematocrit 21.4 % (39.0-52.0); Hemoglobin 6.7 g/dL (13.0-18.0)
[2025-04-14] MEDS: TYLENOL 1000 MG PO ×3 (12:17→22:48)
[2025-04-14 14:27] LABS: Potassium 5.5 mmol/L (3.5-5.1)
--- NOTE | 2025-04-14 16:08 | W.PN.SURGUPD ---
Surgical Update
Surgical Update
29 yo M s/p L lisfranc disarticulation closed and heel wound debridement.
- Patient seen and evaluated at bedside
- strict NWB LLE
- Drain will be pulled Friday
- Drain stripped q6
- Continue IV abx per ID recs
-- post lavage wound cx, bone bx
- Will continue to follow
-No further surgical plans
[2025-04-14 16:29] LABS: Glucose - Point of Care 436 mg/dl (70-99)
[2025-04-14 16:32] LABS: Glucose - Point of Care 428 mg/dl (70-99)
[2025-04-14 18:05] LABS: Glucose 401 mg/dl (70-99)
[2025-04-14] MEDS: NOVOLOG FLEXPEN-LOW RESISTANCE 6 UNITS SC (18:12)
[2025-04-14] MEDS: NOVOLOG FLEXPEN 8 UNITS SC (18:12)
[2025-04-14] MEDS: CUBICIN 16 MG IV (19:08)
[2025-04-14] MEDS: LOKELMA 5 GRAM PO (20:44)
[2025-04-14 22:13] LABS: Glucose - Point of Care 366 mg/dl (70-99)
[2025-04-14] MEDS: REMERON 30 MG PO (22:46)
[2025-04-14] MEDS: LANTUS 0.3 UNITS SC (22:46)
[2025-04-15] MEDS: BENADRYL 25 MG IV ×3 (03:54→20:57)
[2025-04-15] MEDS: DILAUDID 0.25 MG IV ×3 (03:54→20:55)
[2025-04-15 05:48] VITALS: BMI 32.6
[2025-04-15] MEDS: TYLENOL PO (06:13)
[2025-04-15 07:00] VITALS: BP 146/88
--- NOTE | 2025-04-15 07:30 | W.PN.HOSP.TC ---
Addendum entered and electronically signed by Reginald Araya MD 04/15/25 19:47:
Attending Addendum-
I saw and evaluated the patient. I reviewed the resident�s note and agree with findings and plan as documented in the resident�s note. Sub: left foot bandage soaked with blood. Denies fevers chills. 'i guess im here for a while' Complains if pain in
left foot. Full 12 point ROS reviewed and negative except as documented Exam: Vitals reviewed in chart GEN-NAD heart RRR lungs clear abd soft ND ND pos BS. LE - right BKA left TMA bandaged wet with blood CARA drain in place
Plan:
#Left foot TMA wound dehiscence and osteomyelitis
#h/o Left TMA on 03/08
- OR 03/25- debridement
- Path 03/25- focal acute osteomyelitis and detached fragment of fibrino-purulent exudate
- Wound culture 03/25-MRSA and VRE
- OR 04/04 - Debridement of infected left transmetatarsal amputation site including removal of nonviable bone
- Excisional debridement of left heel wound down to subcutaneous tissue
- path 04/04-acute and chronic osteomyelitis
- Wound cx-04/04-Enterobacter Cloacae
- OR 04/13-left lisfranc disarticulation, closed wound, and heel wound debridement- CARA drain placed
- DC CARA drain 04/15- minimal drainage
- wound cx 04/13-gram neg bacilli, bone bx-P
- Appreciate ID
- Continue Daptomycin and ceftazidime/avibactam
- hopeful DC abx if surgical cure achieved-await bone bx
- may eventual need left BKA
- Blood cultures NGTD
- Pain control
- strict NWB
# Acute Mild hyperkalemia
- resolved with Lokelma x 1, albuterol nebs
- cont increased insulin regimen
- repeat BMP in am
#Acute bleed: from site of L TMA and Heel Debridement
#Acute blood Loss Anemia secondary to the above
#Chronic Anemia / Iron Deficiency
- transfused multiple units thus far
- hold asa, hold plavix
- ctm CBC daily
- last transfused 1 unit PRBC on 04/14
- tx for HB < 7
# CAD with Stents- hold plavix cont coreg
# HTN- cont imdur and coreg
# DM-I with neuropathy
- A1C 8.1->6.9
- Diabetes [employer] PRINTER on board, input appreciated
- uncontrolled
- increase further to L-32uBID and N-12uqac (home dose L- N-04/22/10)
- cont duloxetine and gabapentin
# Chronic Urinary Retention
- Pt chronincally self caths
#GERD
- Continue Pantoprazole
# CIDP-pain control
DVT Prophylaxis: SCDs
Full Code
Dispo eventual DC back to [facility]
Time spent coordinating care, review of plan of care with resident, personally reviewed records in EMR, med rec, consults, notes, labs, d/w nursing, CO, pharmacy, ID� 52 mins
Original Note:
Today's Communication/Plan
-
Repeat potassium is 4.9 - within normal limits.
Hemoglobin stable at 7.5
Continue Holding anticoagulants postoperatively - will resume near discharge date
CARA drain with scant amount of bloody drainage. Podiatry to DC drain on 04/15/25 if wound stable
Appreciate ID recommendations - likely to be discharged on oral abx after most recent wound culture and bone pathology is complete
Assessment / Plan
Assessment / Plan
HPI: 29-year-old male with PMHx significant for insulin-dependent type 1 diabetes mellitus, CIDP, Hypertension, GERD, CKD stage IIIA, history of osteomyelitis and TMA is admitted to the hospital for evaluation and management of acute blood loss
anemia from TMA wound dehiscence.
Assessment/Plan:
-Left foot TMA site with wound dehiscence:
-History of left foot TMA on 03/08:
-Acute bleed: from site of L TMA and Heel Debridement (03/25 and 04/08)
-Acute blood Loss Anemia secondary to the above:
Vascular ultrasound showed no significant arterial stenosis on the left however Doppler waveforms suggest disease within the distal SFA/popliteal artery and infrapopliteal disease may also be present as per arterial studies. Multiple lymph nodes
were also seen in the left thigh which may be reactive.
Wound cultures grew MRSA, VRE
Blood cultures did not show any growth
Underwent ultrasound of the left lower extremity did not show any evidence of DVT
Iron supplementation continue
Continue monitoring hemoglobin daily and transfuse as needed to maintain hemoglobin greater than 7
Status postdebridement 03/25.
Pathology results came back which showed focal acute osteomyelitis and detached fragment of fibrino-purulent exudate
Patient underwent his open TMA revision and wound debridement on 04/04 -there was significant drainage postoperatively - pathology positive for acute and chronic osteomyelitis
Wound culture from 04/04 positive for Enterobacter Cloacae
Continue antibiotics as per ID recommendations
Podiatry recommends nonweightbearing to the left lower extremity and continued elevation of the extremity on 2-3 pillows
Continue Daptomycin (currently on day 21 on 04/14/2025)
Continue ceftazidime/avibactam 1250 mg (Day 9 on 04/14/25) as per infectious diseases recommendations
Patient's lab work on the morning of 04/07/2025 had a hemoglobin at 7.1 with a hematocrit of 20.7�repeat H&H ordered which was 6.7 - 1 PRBC ordered on 04/07/25
Podiatry has tentatively planned for revision surgery of the L foot after pathology returns from most recent debridement on 04/06/25
Patient had an episode of acute blood loss on 04/08/2025 where a large amount of blood was lost from his foot wound. 1 PRBC given on 04/08/25
Scheduled for OR with podiatry for debridement vs lisfranc disarticulation on 04/13/25 - procedure tolerated well
Patient's Hgb is 7.5 on 04/15/25 - will continue to follow - if <7 then will transfuse PRBCs
Continue Holding anticoagulants postoperatively - will resume near discharge date
CARA drain with scant amount of bloody drainage. Podiatry to DC drain on 04/15/25 if wound stable
Appreciate ID recommendations - likely to be discharged on oral abx after most recent wound culture and bone pathology is complete
-Hyperkalemia: Resolved
Patient was hyperkalemic with postassium of 5.5 on 04/14/25
Lokelma given, Insulin adjusted to home dose.
Repeat potassium on 04/15/25 is 4.9 - within normal limits.
-Itchy rash:
Continue IV Benadryl
-Diarrhea:
Check stool sample for C. difficile if loose stool continues
- Urinary retention:
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
Patient self caths
Castillo catheter has been discontinued. Patient will be able to self cath as he usually does this in the outpatient setting
- History of ASCVD
- Status post stent palcement
- Chest pain:
EKG/troponin negative for any acute process
ASA held
Plavix 75mg held
Statin held
Continue Ranolazine
Continue Carvedilol
Type 1 diabetes with Hyperglycemia and neuropathy: Monitoring
A1C = 8.1% in January. Hba1c on 03/21/25 was 6.9 indicating improvement in overall glycemic control
Diabetes [employer]INTER consulted, recommendations appreciated
Lantus adjusted to 25 units BID, Aspart adjusted to 10 units at breakfast and lunch, 8 units at dinner.
Continue gabapentin, continue duloxetine
-AMBER on CKD IIIa: Unresolved
Continue to monitoring creatinine, has been hovering around 1.4/1.5
Urine studies show pre-renal cause, likely from hypovolemic state
Continued elevated creatinine level at 1.6 on 04/04/2025
Continue monitoring BMP.
Holding torsemide - will resume near date of discharge.
IV fluid support
-GERD
Continue Pantoprazole
-Chronic inflammatory demyelinating polyneuropathy:
Continue current meds, will need to arrange for PLEX in outpatient setting once discharged
FULL CODE STATUS
Stress Ulcer Prophylaxis: Pantoprazole
DVT Prophylaxis: SCDs
Imaging:
-Left foot x-ray conducted on 03/21/2025:
Status post amputation at the level of the first through fifth proximal metatarsal bones.
No radiographic evidence for osteomyelitis.
- Bilateral lower extremity arterial ultrasound exam conducted on 03/23/2025:
1. Ankle-brachial indices and toe brachial indices could not be measured due to prior amputations.
2. No focal significant arterial stenosis demonstrated on the left side on duplex imaging. Spectral Doppler waveform analysis is suggestive of disease within the distal SFA/popliteal artery. Infrapopliteal disease may also be present.
3. Multiple lymph nodes are seen within the left thigh, which may be reactive.
-Peripheral vascular ultrasound of the left lower extremity conducted on 03/31/2025:
No evidence of DVT of the left lower extremity.
Procedures:
03/03/2025-initial amputation of left transmetatarsal
03/25/2025-debridement of infected left metatarsal amputation
04/04/2025-revision debridement of left heel wound with calcaneal biopsy.
Anticipated Discharge: > 48 hours
Subjective/Interval History
-
Date of Service: April 15, 2025
Met with patient at the bedside. Overall his condition remains unchanged from the day prior but he continues to 'feel like crap' postoperatively moreso than he has in the past. He states the unit of blood he received helped a bit but he is still not
at baseline. No nausea, vomiting or diarrhea. No shortness of breath, chest tightness, or chest pain. No abnormal bleeding.
Objective Data
-
Labs:
Laboratory Results
04/15/25
10:55
WBC 12.2 H
Hgb 7.5 L
Hct 23.5 L
Plt Count 687 H
Sodium 138
Potassium 4.9
Chloride 106
Carbon Dioxide 27
BUN 32 H
Creatinine 1.2
Glucose 269 H
Calcium 8.4
Total Bilirubin 0.3
AST 10 L
ALT < 10
Alkaline Phosphatase 75
Vital Signs:
Vital Signs
Temp Pulse Resp BP Pulse Ox
97.7 F 86 16 146/88 97
04/15/25 07:00 04/15/25 09:24 04/15/25 07:00 04/15/25 09:24 04/15/25 07:00
I&O
04/14/25 04/15/25 04/16/25
06:59 06:59 06:59
Intake Total 150 / 150 1542 / 1542
Output Total 1480 / 1480 2210 / 2210 1850 / 1850
Balance -1330 / -1330 -668 / -668 -1850 / -1850
Review of Systems
-
History Source: Patient
Constitutional: Reports Fatigue
EENT: Reports No Symptoms Reported
Respiratory: Reports No Symptoms
Cardiac: Reports No Symptoms
Abdomen/GI: Reports No Symptoms
Breast: Reports No Symptoms
Musculoskeletal: Reports Joint Pain (Left foot) and Muscle Pain (Left foot)
Neuro: Reports No Symptoms
Endocrine: Reports No Symptoms
Physical Exam
-
General: Well Developed, Well Nourished, Comfortable, Conversant and Obese
HEENT: Normocephalic and Atraumatic
Respiratory: Clear to Auscultation and Non Labored Respirations; Negative Wheezes, Rales, Rhonchi or Crackles
Cardiac: Regular Rhythm and S1/S2; Negative Murmur, Calf Tenderness or Tachycardic
GI: Soft, Nontender, Nondistended and Normal Bowel Sounds; Negative Organomegaly
Genito-urinary: No Costovertebral Tender, Clear Urine and Castillo
Musculoskeletal: No Clubbing, No Cyanosis and Other (R BKA; left foot s/p Lisfranc Disarticulation; left foot wrapped in dressing, not bleeding at this time)
Skin: Warm, Dry and Other (CARA Drain with bloody fluid filling 1/4 of the bulb); Negative Rash or Ulcers
Neuro: Awake, Alert, Oriented, AO x 3 and No Sensory Deficits
Psych: Calm
--- NOTE | 2025-04-15 07:32 | PN.DE.MGMTRT ---
Insulin Management
- -
04/15/2025: Diabetes Management Follow up
Patient admitted from [facility] 03/21 with c/o bleeding L heel wound. PMH type 1 diabetes, R BKA, L toe amputation, recent debridement L heel, [place], CHF, HTN, CKD, NV, recent admission 01/21 and 03/05 s/p
transmetatarsal L amputation and debridement. Prior to admission was receiving Lantus 30 units BID with Humalog insulin ss AC. A1C on admission 6.9%, (improved from 8.1%). Cr 1.1, eGFR > 60 today.
Prior to incarceration was living in a longterm per patient he will return there.
Patient is awake, alert, sleepy but easily awakens, resting in bed, offers no complaints, able to discuss diabetes care plan.
POD # 2 s/p Left Lisfranc disarticulation closed and L heel debridement, hgb 7.5 today.
Noted for elevated glucose throughout day yesterday, premeal 341 t0 436, required 3-[address] units of corrective insulin. Dr. Morris increased Lantus dose to 30 units BID and NovoLog dinner dose to 10 units. HS Glucose was 366, received Lantus 30 units,
fasting glucose 269 V, 296 POC.
Will increase Lantus to 32 units BID and AC NovoLog to 12 units.
Cont low corrective with meals. Will assess glucose trend for need to further adjust insulin today if necessary.
Discussed with nurse. Will cont to follow.
Diabetes History
- -
Type of Diabetes: 1
Pre-Admission Diabetes Regimen
04/14/25
07:42
Creatinine 1.3
Lab Results
Hemoglobin A1c 6.9 % (4.0-5.6) H 03/22/25 06:24
Insulin Pump Settings
IP Diabetes Regimen
04/14/25 04/14/25 04/14/25
07:42 07:57 12:02
Glucose 351 H
POC Glucose 341 H 357 H
10/02/25 10/02/25 10/02/25
16:28 16:30 17:39
Glucose 401 H
POC Glucose 436 H 428 H
04/14/25
22:12
Glucose
POC Glucose 366 H
Meal type: Dinner
Meal type: Lunch
Meal type: Breakfast
Amount consumed: 100%
Amount consumed: 100%
Amount consumed: 100%
Patient Education
[2025-04-15 08:36] LABS: Glucose - Point of Care 296 mg/dl (70-99)
[2025-04-15] MEDS: LANTUS 0.3 UNITS SC (09:23)
[2025-04-15] MEDS: RANEXA EXTENDED RELEASE 1000 MG PO ×2 (09:23→20:58)
[2025-04-15] MEDS: IMDUR (EXTENDED RELEASE) 60 MG PO (09:24)
[2025-04-15] MEDS: CYMBALTA DELAYED RELEASE 30 MG PO (09:24)
[2025-04-15] MEDS: FEOSOL 325 MG PO ×2 (09:24→20:56)
[2025-04-15] MEDS: PROTONIX 40 MG PO (09:24)
[2025-04-15] MEDS: COREG 25 MG PO ×2 (09:24→20:56)
[2025-04-15] MEDS: NEURONTIN 300 MG PO ×3 (09:24→21:01)
[2025-04-15] MEDS: NOVOLOG FLEXPEN-LOW RESISTANCE 3 UNITS SC ×3 (09:25→16:37)
[2025-04-15] MEDS: NOVOLOG FLEXPEN 10 UNITS SC ×2 (09:26→12:01)
--- NOTE | 2025-04-15 10:44 | OR.RPT ---
Operative Report
Operative Report
Operative Report
Operative Report
Operative Report
Patient: Sang Anderson

Date of Surgery: 04/13/2025
Surgeon: Sander Montez DPM
Assistants: Sander Long DPM
Anesthesia: General anesthesia
Preoperative Diagnosis:
Left transmetatarsal amputation site wound dehiscence with infection
Left heel diabetic wound down to muscle player
Postoperative Diagnosis:
Same as preoperative
Procedure:
Complex delayed primary closure of surgical wound CPT 27845 Modifier-58
Excision of metatarsal bones with Lisfranc disarticulation CPT 38988 Modifier-58
Excisional debridement of left heel wound down to subcutaneous tissue CPT 83101 Modifier-58
Hemostasis: Anatomic dissection
Estimated Blood Loss: <50 mL
Specimens:
Intraoperative wound culture (post-pulse lavage)
Left metatarsals
Complications: None
Indications for Surgery:
The patient is a 29-year-old male with a history of left transmetatarsal amputation and concomitant heel debridement performed on 03/08/2025. He was discharged but subsequently re-presented to [facility] with wound dehiscence and clinical
signs of infection at the transmetatarsal amputation site. He then underwent TMA debridement on 03/25/2025. Post lavage cultures yielded bacteria and bone pathology was positive for osteomyelitis. Subsequent debridement performed on 04/04/2025 with
post washout cultures still yielded bacteria and bone pathology was positive. He has been on intravenous antibiotics. Given the extent of soft tissue compromise and concern for ongoing deep infection with osteomyelitis based on previous pathology,
Lisfranc amputation with delayed primary closure and heel wound debridement was indicated. The risks, benefits, and alternatives were discussed with the patient, and informed consent was obtained.
Procedure in Detail:
The patient was brought to the operating room and placed supine on the operating table. General anesthesia was induced. The left foot was prepped and draped in the usual sterile manner. A surgical timeout was performed.
Attention was directed to the left transmetatarsal amputation site. The wound was explored and multiplane fascial exploration was carried out through the amputation site. Dissection was carried through skin, subcutaneous tissue, and down to fascial
layers. All necrotic and nonviable soft tissue was identified and excised. No gurinder purulent drainage was encountered.
Metatarsals 1 through 5 were then identified and excised with presumed residual osteomyelitis. A Lisfranc amputation was then performed with a combination of osteotomes, #15 blades, and sagittal keeping the base of the 5th metatarsal base intact to
keep the insertion of the peroneus brevis tendon intact. Cuneiforms, cuboid, and remaining 5th metatarsal base were noted to be firm, viable, and appeared to free from infection. Following demorval of bone, a rongeur was used to remove all residual
necrotic soft tissue from the wound bed and the wound was irrigated with copious pulsatile lavage. A culture was obtained post-lavage to assess for residual infection.
The wound was inspected thoroughly, and no further necrotic or infected tissue remained. Hemostasis was achieved with electrocautery and vessel ligature. The dorsal and plantar skin flaps were re-arranged and re-approximately to performed a complex
delayed primary closure of his surgical wound. A combination of 2-0 PDS and 3-0 PDS were used for deep and subcutaneous tissue closure. 3-0 prolene was used for skin closure. A CARA drain was placed exiting his dorsomedial foot which was secured with
a 3-0 prolene suture.
Attention was then directed to the left heel wound. The wound was sharply debrided using a #15 blade and curette down to subcutaneous tissue and muscle layer. Devitalized skin and soft tissue were removed. No evidence of active infection was present
in the heel wound. There was a stable eschar noted to the posterior heel which remained intact. Irrigation with sterile saline was performed, and a sterile dressing was applied.
The patient tolerated the procedure well and was transported to recovery in stable condition. He will continue to receive antibiotics per ID recommendations. We will follow his cultures and pathology results. Will continue with local wound care and
monitor his wound. Will require rigid blood sugar control and wound to be free from infection and necrosis prior to delayed primary closure.
[2025-04-15 11:29] LABS: Hematocrit 23.5 % (39.0-52.0); Hemoglobin 7.5 g/dL (13.0-18.0); Mean Corp Hgb Conc. 31.9 g/dL (33.0-37.0); Mean Corpuscular Volume 90.7 fL (80.0-94.0); Platelet Count 687 10^3/uL (130-400); Red Cell Dist. Width 14.5 % (11.5-14.5)
[2025-04-15 11:33] LABS: Glucose - Point of Care 291 mg/dl (70-99)
[2025-04-15 11:48] LABS: ALT (SGPT) < 10 U/L (0-50); AST (SGOT) 10 U/L (17-59); Albumin 3.0 g/dl (3.5-5.0); Alkaline Phosphatase 75 U/L (38-126); Blood Urea Nitrogen 32 mg/dl (9-20); Calcium 8.4 mg/dl (8.4-10.2); Carbon Dioxide 27 mmol/L (22-30); Chloride 106 mmol/L (98-107); Estimated Creatinine Clearance 116 ml/min; Glucose 269 mg/dl (70-99); Potassium 4.9 mmol/L (3.5-5.1); Sodium 138 mmol/L (135-145); Total Protein 6.4 g/dl (6.3-8.2); eGFR > 60.00
[2025-04-15] MEDS: TYLENOL 1000 MG PO ×2 (11:52→17:28)
[2025-04-15 12:06] VITALS: PULSE 91; O2SAT 94
--- NOTE | 2025-04-15 14:23 | CM ---
Chart reviewed. Care ongoing.
POD # 2 s/p Left Lisfranc disarticulation closed and L heel debridement. Strict NWB LLE
CARA drain d/c today
Cont abx
Plan: [facility]
--- NOTE | 2025-04-15 14:51 | W.PN.ID1 ---
Date of Service
Date of Service: April 15, 2025
Today's Communication
await pathology
continue current antibiotics
Assessment / Plan
# Osteomyelitis Left foot TMA site wound dehiscence with necrosis
# Leukocytosis waxes and wanes
# Allergies: PCN, cephalosporin, meropenem, Vancomycin; tolerated Avyzaz
# Incarcerated
- Blood cx's neg
- OR 03/25/25 s/p I+D, removal of necrotic bone at amp site, I+D heel wound to subcutaneous tisse; wound vac placed
OR cx Enterococcus (VRE) and MRSA.
03/25 Bone path: 2nd metatarsal focal acute osteo
- 04/04/25 s/p open TMA revision , heel wound debridement.
OR cx: Enterobacter cloacae - suspect MDR as previous isolate
04/04 Clearing fragment bone path: chronic osteo
- 04/13 s/p lisfranc disarticulation and heel wound debridement
OR cx in progress, bone biopsy
- 04/14 await pathology
- Continue daptomycin (start date 03/25). Hold statin.
Follow CK qMonday, ordered.
- Continue ceftazidime/avibactam (start date 04/06)
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
Diabetes mellitus
CAD status post PCI
CHF
hx CKD3
Hypertension
Guillain-Potts� syndrome/CIDP, plasma exchange q 2 months
PAD status post right BKA
Left hallux and second toe osteomyelitis status post amputation and debridement of left heel ulcer January 21, 2025
Left foot TMA, I+D left heel wound and bone biopsy of heel (neg osteo) Mar 08, 2025 (path surgical cure)
Chief Complaint
-: Leukocytosis and Other (Foot wound)
Subjective / Review of Systems
afebrile
bp stable
tolerating current therapies
Vital Signs / Physical Exam
Vital Signs
Vital Signs
Temp Pulse Resp BP Pulse Ox
97.7 F 86 16 146/88 97
04/15/25 07:00 04/15/25 09:24 04/15/25 07:00 04/15/25 09:24 04/15/25 07:00
Physical Exam
Constitutional: No Acute Distress
Cardiovascular: Regular Rate and S1/S2; Negative Murmur or Rub
Pulmonary: Clear and Symmetric; Negative Wheezes or Rales
Gastrointestinal: Soft, Non Tender, Non Distended and Normal Bowel Sounds
Skin: Warm and Dry; Negative Rash or Jaundice
Wound: Other (dressing take down deferred)
Objective Data
Lab Data
Lab Results
04/15/25 10:55
04/15/25 10:55
Estimated Creat Clear 116 ml/min 04/15/25 10:55
Lactic Acid 0.8 mmol/L (0.7-2.0) 03/25/25 01:16
Total Bilirubin 0.3 mg/dl (0.2-1.3) 04/15/25 10:55
AST 10 U/L (17-59) L 04/15/25 10:55
ALT < 10 U/L (0-50) 04/15/25 10:55
Alkaline Phosphatase 75 U/L (38-126) 04/15/25 10:55
Most recent labs reviewed.
Micro Results:
04/13/25 16:07 Wound Culture - Preliminary
Foot - Left Gram negative bacilli
Gram Stain - Preliminary
04/13/25 16:07 Anaerobic Culture - Preliminary
Foot - Left Culture pending. Anaerobic cultures are examined after 3
days incubation. Additional information to follow.
03/25/25 16:52 Fungal Culture - Preliminary
Foot - Left Culture in progress.
Positive cultures are reported as soon as detected.
Final report to follow in four to five weeks.
04/04/25 16:30 Wound Culture - Final
Foot - Left Enterobacter cloacae
Gram Stain - Final
04/04/25 16:30 Anaerobic Culture - Final
Foot - Left NO ANAEROBES ISOLATED
03/31/25 10:51 Blood Culture - Final
Blood/Venous No Growth - Final Report
03/31/25 10:22 Blood Culture - Final
Blood/Venous No Growth - Final Report
03/25/25 09:33 Blood Culture - Final
Blood/Venous No Growth - Final Report
03/25/25 16:56 Wound Culture - Final
Foot - Left Staph aureus MRSA
Enterococcus faecalis - VRE
Gram Stain - Final
03/25/25 16:56 Anaerobic Culture - Final
Foot - Left NO ANAEROBES ISOLATED
03/25/25 16:52 Wound Culture - Final
Foot - Left Staph aureus MRSA
Enterococcus faecalis - VRE
Gram Stain - Final
03/25/25 16:52 Anaerobic Culture - Final
Foot - Left NO ANAEROBES ISOLATED
03/25/25 01:16 Blood Culture - Final
Blood/Venous No Growth - Final Report
03/27/25 10:35 Urine Culture - Final
Urine Anna albicans
03/24/25 12:51 Salmonella/Shigella Culture - Final
Feces/Stool No Salmonella, Shigella, Aeromonas or Plesiomonas species
isolated.
Campylobacter Culture - Final
No Campylobacter species isolated.
Shiga Toxin Test - Final
No E. coli Shiga Toxin 1 or 2 detected.
03/21/25 21:00 Blood Culture - Final
Blood/Venous No Growth - Final Report
03/21/25 21:00 Blood Culture - Final
Blood/Venous No Growth - Final Report
03/21/25 21:16 Wound Culture - Final
Foot - Left Enterococcus faecalis - VRE
Anna albicans
Gram Stain - Final
03/24/25 12:53 C. difficile GDH Antigen & Toxins - Final
Feces/Stool C. difficile antigen positive, toxin negative.
Clostridium difficile present, but toxin not detected.
Patient may be a carrier, colonized with nontoxinogenic
strain or the level of toxin in sample is below detection
limits. This information should be used in conjunction with
the patient's clinical history.
03/22/25 13:07 MRSA Screen - Final
Nose No Methicillin Resistant Staphylococcus aureus isolated.
[2025-04-15 15:00] VITALS: BP 127/71
[2025-04-15] MEDS: CUBICIN 16 MG IV (15:20)
[2025-04-15 16:29] LABS: Glucose - Point of Care 271 mg/dl (70-99)
[2025-04-15] MEDS: NOVOLOG FLEXPEN 12 UNITS SC (16:37)
--- NOTE | 2025-04-15 19:02 | W.PN.UPDATE ---
Update Note
Progress Note Update
29 yo M s/p L lisfranc disarticulation closed and heel wound debridement. plantar flap cft ~4sec, sensation diminished, gross motor function intact, sutures in place with skin well reapproximated
- patient states he is amenable to BKA as next procedure in the setting of continued OM/infection.
- drain pulled today and LWC rendered Betadine dsd, light andriy
- continue offloading precautions
- strict NWB LLE
- Continue IV abx per ID recs
-- post lavage wound cx, bone bx
- Will continue to follow
- No further surgical plans
[2025-04-15 21:01] LABS: Glucose - Point of Care 129 mg/dl (70-99)
[2025-04-15] MEDS: REMERON 30 MG PO (21:01)
[2025-04-15] MEDS: LANTUS 0.32 UNITS SC (21:03)
[2025-04-15 23:36] VITALS: BP 127/75
[2025-04-16] VITALS (8 sets, daily range): BP systolic 108–169; BP diastolic 64–90
[2025-04-16] MEDS: TYLENOL PO (02:14)
[2025-04-16] MEDS: TYLENOL 1000 MG PO ×4 (05:32→23:00)
[2025-04-16] MEDS: DILAUDID 0.25 MG IV ×3 (05:32→21:43)
[2025-04-16] MEDS: BENADRYL 25 MG IV ×3 (05:32→21:42)
--- NOTE | 2025-04-16 06:19 | PTCARENOTE ---
Pt slept well overnight. PRN pain medication administered as ordered. Guards remain at bedside. Vital signs stable. Left foot dressing intact. No issues to report. Will monitor.
[2025-04-16 07:58] LABS: ALT (SGPT) < 10 U/L (0-50); AST (SGOT) 11 U/L (17-59); Albumin 2.8 g/dl (3.5-5.0); Alkaline Phosphatase 69 U/L (38-126); Blood Urea Nitrogen 27 mg/dl (9-20); Calcium 8.4 mg/dl (8.4-10.2); Carbon Dioxide 27 mmol/L (22-30); Chloride 110 mmol/L (98-107); Estimated Creatinine Clearance 116 ml/min; Glucose 89 mg/dl (70-99); Potassium 5.0 mmol/L (3.5-5.1); Sodium 141 mmol/L (135-145); Total Protein 6.1 g/dl (6.3-8.2); eGFR > 60.00
[2025-04-16 07:59] LABS: Glucose - Point of Care 102 mg/dl (70-99)
[2025-04-16 08:08] LABS: Hematocrit 22.3 % (39.0-52.0); Hemoglobin 7.0 g/dL (13.0-18.0); Mean Corp Hgb Conc. 31.4 g/dL (33.0-37.0); Mean Corpuscular Volume 92.1 fL (80.0-94.0); Platelet Count 639 10^3/uL (130-400); Red Cell Dist. Width 14.5 % (11.5-14.5)
[2025-04-16] MEDS: NOVOLOG FLEXPEN-LOW RESISTANCE SC ×3 (08:37→18:31)
[2025-04-16] MEDS: NEURONTIN 300 MG PO ×3 (09:48→21:42)
[2025-04-16] MEDS: COREG 25 MG PO ×2 (09:49→21:41)
[2025-04-16] MEDS: FEOSOL 325 MG PO ×2 (09:49→21:42)
[2025-04-16] MEDS: RANEXA EXTENDED RELEASE 1000 MG PO ×2 (09:50→21:42)
[2025-04-16] MEDS: CYMBALTA DELAYED RELEASE 30 MG PO (09:50)
[2025-04-16] MEDS: IMDUR (EXTENDED RELEASE) 60 MG PO (09:50)
[2025-04-16] MEDS: PROTONIX 40 MG PO (09:51)
[2025-04-16] MEDS: NOVOLOG FLEXPEN 12 UNITS SC ×3 (09:54→18:35)
[2025-04-16] MEDS: LANTUS 0.32 UNITS SC (09:58)
[2025-04-16 13:28] LABS: Glucose - Point of Care 113 mg/dl (70-99)
[2025-04-16 13:44] LABS: LDH 171 U/L (120-246)
[2025-04-16 14:56] LABS: Hematocrit 22.4 % (39.0-52.0); Hemoglobin 7.0 g/dL (13.0-18.0)
--- NOTE | 2025-04-16 15:41 | W.PN.HOSP.TC ---
Today's Communication/Plan
-
1 more unit of PRBC
Anemia workup
Hematology evaluation
Heme test stools
USS abdomen in am
Assessment / Plan
Assessment / Plan
29-year-old male recently admitted to [facility] on 03/05/2025 to 03/17/2025 for osteomyelitis of the left foot. He underwent amputation of the first 2 digits of the left foot on 01/21/2025. Return with wound dehiscence and ultimately
required TMA and heel debridement on 03/08/2025. Completed inpatient course of antibiotics on 03/16/2025. Reportedly he 'banged' his foot on the vehicle while leaving the hospital and returned on the same day for evaluation of the wound. Since then
he has had worsening of bleeding and oozing from the left foot with increased pain in the left foot. Previous notes and discharge summaries reviewed, suspecting that the patient was picking on his surgical wounds which led to the bleeding and
possible infection..
Echo 02/15/2025-normal LV size, wall thickness and systolic function. Right ventricular size and systolic function within normal limits. LA is normal. RA is normal.
Patient is awake alert oriented
Cardiovascular system S1-S2 appreciated
Chest clear to auscultation
Abdomen soft and nontender
Right BKA stump is stable
Left TMA site bandaged
# Osteomyelitis of the left foot TMA site, wound dehiscence with necrosis
Went to the OR on 03/25/2025 for I&D, removal of necrotic bone and amputation site, heel wound debridement and wound VAC-cultures grew VRE and MRSA. Wound pathology showed acute osteomyelitis
Status post revision on 04/04/2025-open TMA revision , removal of nonviable bone and heel wound debridement down to subcutaneous tissue-cultures Enterobacter Cloacae. Pathology clearing fragment chronic osteomyelitis
04/13/2025-Status post left Lisfranc disarticulation, heel wound debridement, plantar flap. Cultures with Enterobacter. Biopsy pending
May need BKA if continues to have osteomyelitis/infection
Strict nonweightbearing
IV antibiotics-daptomycin started on 03/25/2025. Ceftazidime /Avibactam started on 04/06/2025
Infectious disease following
# Diabetes-hemoglobin N1l-ffd reliable in the setting of anemia
Was on Lantus 30 units twice daily and NovoLog 10 units AC prior to arrival
Currently on 32 units of Lantus twice daily and 12 units of NovoLog AC with sliding scale
# Mild hyperkalemia-resolved with Lokelma
# Acute blood loss anemia secondary to bleeding from left TMA and heel debridement on top of chronic anemia
No active bleeding at present but patient still is anemic
Check heme test stools, LDH and haptoglobin, PT PTT INR, Candie test
9 units of PRBCs transfused this admission, Order one more today.
Hematology evaluation given so much blood requirement
Aspirin and Plavix on hold
# Coronary disease with history of PCI-restart aspirin as soon as possible . Continue Imdur, Ranexa and Coreg. Holding statin as being on daptomycin
# Thrombocytosis-likely secondary to infection
# History of heart failure unknown type per chart. Normal EF now.
# Acute kidney injury-resolved
# Hypertension-continue Coreg
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 Continue duloxetine and gabapentin for pain
# Peripheral disease with history of right BKA
# Left hallux and second toe osteomyelitis with amputation and debridement of the left heel ulcer January 21, 2025
Left foot TMA I&D left heel wound and bone biopsy of the heel March 08, 2025-negative pathology for osteomyelitis
# Diabetic neuropathy-continue gabapentin and duloxetine
# Hyperlipidemia-holding statin being on daptomycin
# Chronic urinary retention/neurogenic bladder-self catheterizes
# GERD-continue PPI
# Anxiety and depression-on Remeron, duloxetine
# Hypoalbuminemia
# DVT prophylaxis-SCDs
# Full code
D/W RN
Time over 50 min
Part of this note was created using voice recognition system. Occasional wrong word or��sound alike� substitutions may have inadvertently occurred due to the inherent limitations of voice recognition software. If noted kindly bring it to my
attention for correction.
Anticipated Discharge: > 48 hours
Subjective/Interval History
-
Date of Service: April 16, 2025
Objective Data
-
Labs:
Laboratory Results
04/16/25 04/16/25
07:00 14:10
WBC 13.2 H
Hgb 7.0 L 7.0 L
Hct 22.3 L 22.4 L
Plt Count 639 H
Sodium 141
Potassium 5.0
Chloride 110 H
Carbon Dioxide 27
BUN 27 H
Creatinine 1.2
Glucose 89
Calcium 8.4
Total Bilirubin 0.2
AST 11 L
ALT < 10
Alkaline Phosphatase 69
Vital Signs:
Vital Signs
Temp Pulse Resp BP Pulse Ox
98.1 F 84 20 143/80 97
04/16/25 07:31 04/16/25 09:49 04/16/25 07:31 04/16/25 09:49 04/16/25 07:31
I&O
04/15/25 04/16/25 04/17/25
06:59 06:59 06:59
Intake Total 1542 / 1542 1160 / 1160 1920 / 1920
Output Total 2210 / 2210 2550 / 2550 650 / 650
Balance -668 / -668 -1390 / -1390 1270 / 1270
[2025-04-16] MEDS: CUBICIN 16 MG IV (15:49)
[2025-04-16 16:32] LABS: Glucose - Point of Care 106 mg/dl (70-99)
[2025-04-16] MEDS: NOVOLOG FLEXPEN SC (18:33)
[2025-04-16] MEDS: REMERON 30 MG PO (21:42)
[2025-04-16 22:17] LABS: Glucose - Point of Care 57 mg/dl (70-99)
[2025-04-16 22:44] LABS: Glucose - Point of Care 60 mg/dl (70-99)
[2025-04-16] MEDS: LANTUS SC (22:52)
[2025-04-16 23:05] LABS: Glucose - Point of Care 97 mg/dl (70-99)
--- NOTE | 2025-04-17 01:06 | W.PN.UPDATE ---
Update Note
Progress Note Update
BS 57>60>97
Patient was mildly symptomatic, will hold the insulin
[2025-04-17 02:59] LABS: Glucose - Point of Care 150 mg/dl (70-99)
[2025-04-17 06:00] VITALS: BMI 32.2
[2025-04-17] MEDS: DILAUDID 0.25 MG IV ×3 (06:17→20:25)
[2025-04-17] MEDS: TYLENOL 1000 MG PO ×4 (06:17→23:08)
[2025-04-17 06:51] LABS: INR 1.02; PT 13.7 Sec (11.4-14.6)
[2025-04-17 06:52] LABS: APTT 33.8 Sec (23.4-35.0)
[2025-04-17 06:55] LABS: Hematocrit 27.9 % (39.0-52.0); Hemoglobin 8.7 g/dL (13.0-18.0); Mean Corp Hgb Conc. 31.2 g/dL (33.0-37.0); Mean Corpuscular Volume 89.4 fL (80.0-94.0); Nucleated Red Blood Cells % 0 % (-); Platelet Count 651 10^3/uL (130-400); Red Cell Dist. Width 15.9 % (11.5-14.5)
[2025-04-17 07:27] LABS: ALT (SGPT) 11 U/L (0-50); AST (SGOT) 12 U/L (17-59); Albumin 3.1 g/dl (3.5-5.0); Alkaline Phosphatase 76 U/L (38-126); Blood Urea Nitrogen 21 mg/dl (9-20); Calcium 8.5 mg/dl (8.4-10.2); Carbon Dioxide 27 mmol/L (22-30); Chloride 108 mmol/L (98-107); Estimated Creatinine Clearance > 125 ml/min; Glucose 194 mg/dl (70-99); Potassium 5.2 mmol/L (3.5-5.1); Sodium 140 mmol/L (135-145); Total Protein 6.4 g/dl (6.3-8.2); eGFR > 60.00
--- NOTE | 2025-04-17 07:30 | W.PN.HOSP.TC ---
Addendum entered and electronically signed by Min Collins MD 04/17/25 13:52:
29-year-old male recently admitted to [facility] on 03/05/2025 to 03/17/2025 for osteomyelitis of the left foot. He underwent amputation of the first 2 digits of the left foot on 01/21/2025. Return with wound dehiscence and ultimately
required TMA and heel debridement on 03/08/2025. Completed inpatient course of antibiotics on 03/16/2025. Reportedly he 'banged' his foot on the vehicle while leaving the hospital and returned on the same day for evaluation of the wound. Since then
he has had worsening of bleeding and oozing from the left foot with increased pain in the left foot. Previous notes and discharge summaries reviewed, suspecting that the patient was picking on his surgical wounds which led to the bleeding and
possible infection..
Echo 02/15/2025-normal LV size, wall thickness and systolic function. Right ventricular size and systolic function within normal limits. LA is normal. RA is normal.
Ultrasound of the abdomen-no hepatosplenomegaly
Patient is awake alert oriented
Cardiovascular system S1-S2 appreciated
Chest clear to auscultation
Abdomen soft and nontender
Right BKA stump is stable
Left TMA site bandaged
# Osteomyelitis of the left foot TMA site, wound dehiscence with necrosis
Went to the OR on 03/25/2025 for I&D, removal of necrotic bone and amputation site, heel wound debridement and wound VAC-cultures grew VRE and MRSA. Wound pathology showed acute osteomyelitis
Status post revision on 04/04/2025-open TMA revision , removal of nonviable bone and heel wound debridement down to subcutaneous tissue-cultures Enterobacter Cloacae. Pathology clearing fragment chronic osteomyelitis
04/13/2025-Status post left Lisfranc disarticulation, heel wound debridement, plantar flap. Cultures with Enterobacter. Biopsy pending
May need BKA if continues to have osteomyelitis/infection
Strict nonweightbearing
IV antibiotics-daptomycin started on 03/25/2025. Ceftazidime /Avibactam started on 04/06/2025
Infectious disease following
# Diabetes-hemoglobin B3s-avf reliable in the setting of anemia
Was on Lantus 30 units twice daily and NovoLog 10 units AC prior to arrival
Changed back to 30 units of Lantus twice daily and 10 units of NovoLog AC with sliding scale with low blood sugars
# Mild hyperkalemia-resolved with Lokelma
# Acute blood loss anemia secondary to bleeding from left TMA and heel debridement on top of chronic anemia
No active bleeding at present but patient still is anemic
Check heme test stools, LDH and haptoglobin, PT PTT INR, Candie test
10 units of PRBCs transfused this admission
Candie test positive . Unclear if antibiotics induced
Hematology evaluation given so much blood requirement
Heme chest stools -Heme neg
Aspirin and Plavix on hold
# Coronary disease with history of PCI-restart aspirin as soon as possible . Continue Imdur, Ranexa and Coreg. Holding statin as being on daptomycin
# Thrombocytosis-likely secondary to infection
# History of heart failure unknown type per chart. Normal EF now.
# Acute kidney injury-resolved
# Hypertension-continue Coreg
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 Continue duloxetine and gabapentin for pain
# Peripheral disease with history of right BKA
# Left hallux and second toe osteomyelitis with amputation and debridement of the left heel ulcer January 21, 2025
Left foot TMA I&D left heel wound and bone biopsy of the heel March 08, 2025-negative pathology for osteomyelitis
# Diabetic neuropathy-continue gabapentin and duloxetine
# Hyperlipidemia-holding statin being on daptomycin
# Chronic urinary retention/neurogenic bladder-self catheterizes
# GERD-continue PPI
# Anxiety and depression-on Remeron, duloxetine
# Hypoalbuminemia
# Gallstones
# DVT prophylaxis-SCDs
# Full code
D/W RN
Time over 50 min
Part of this note was created using voice recognition system. Occasional wrong word or��sound alike� substitutions may have inadvertently occurred due to the inherent limitations of voice recognition software. If noted kindly bring it to my
attention for correction.
Original Note:
Today's Communication/Plan
-
Hematology consulted due to anemia despite repeated blood transfusions
We have initiated anemia workup with LDH at 171, haptoglobin pending, Positive Candie test, 1+ BOBBY IgG, and PT/PTT were within normal limits. Based on positive Candie test, consider drug-induced immune hemolytic anemia, delayed hemolytic
transfusion reaction, or cold agglutinin disease
Lantus adjusted to 30 units, Aspart adjusted to 10 units at breakfast, lunch and dinner.
Awaiting pathology results prior to antibiotic adjustment
Awaiting ultrasound of the abdomen
Assessment / Plan
Assessment / Plan
HPI: 29-year-old male with PMHx significant for insulin-dependent type 1 diabetes mellitus, CIDP, Hypertension, GERD, CKD stage IIIA, history of osteomyelitis and TMA is admitted to the hospital for evaluation and management of acute blood loss
anemia from TMA wound dehiscence.
Assessment/Plan:
-Left foot TMA site with wound dehiscence:
-History of left foot TMA on 03/08:
-Acute bleed: from site of L TMA and Heel Debridement (03/25 and 04/08)
-Acute blood Loss Anemia secondary to the above:
Vascular ultrasound showed no significant arterial stenosis on the left however Doppler waveforms suggest disease within the distal SFA/popliteal artery and infrapopliteal disease may also be present as per arterial studies. Multiple lymph nodes
were also seen in the left thigh which may be reactive.
Wound cultures grew MRSA, VRE
Blood cultures did not show any growth
Underwent ultrasound of the left lower extremity did not show any evidence of DVT
Iron supplementation continue
Continue monitoring hemoglobin daily and transfuse as needed to maintain hemoglobin greater than 7
Status postdebridement 03/25.
Pathology results came back which showed focal acute osteomyelitis and detached fragment of fibrino-purulent exudate
Patient underwent his open TMA revision and wound debridement on 04/04 -there was significant drainage postoperatively - pathology positive for acute and chronic osteomyelitis
Wound culture from 04/04 positive for Enterobacter Cloacae
Continue antibiotics as per ID recommendations
Podiatry recommends nonweightbearing to the left lower extremity and continued elevation of the extremity on 2-3 pillows
Continue Daptomycin (currently on day 21 on 04/14/2025)
Continue ceftazidime/avibactam 1250 mg (Day 9 on 04/14/25) as per infectious diseases recommendations
Patient's lab work on the morning of 04/07/2025 had a hemoglobin at 7.1 with a hematocrit of 20.7�repeat H&H ordered which was 6.7 - 1 PRBC ordered on 04/07/25
Podiatry has tentatively planned for revision surgery of the L foot after pathology returns from most recent debridement on 04/06/25
Patient had an episode of acute blood loss on 04/08/2025 where a large amount of blood was lost from his foot wound. 1 PRBC given on 04/08/25
Scheduled for OR with podiatry for debridement vs lisfranc disarticulation on 04/13/25 - procedure tolerated well
Patient's Hgb is 7.5 on 04/15/25 - will continue to follow - if <7 then will transfuse PRBCs
Patient received 1 unit of PRBCs on 04/16/2025
Continue Holding anticoagulants postoperatively - will resume near discharge date
Appreciate ID recommendations - likely to be discharged on oral abx after most recent wound culture and bone pathology is complete
Hematology consulted due to anemia despite repeated blood transfusions
We have initiated anemia workup with LDH at 171, haptoglobin pending, Positive Candie test, 1+ BOBBY IgG, stool heme test, and PT/PTT were within normal limits. Based on positive Candie test, consider drug-induced immune hemolytic anemia, delayed
hemolytic transfusion reaction, or cold agglutinin disease
Abdominal ultrasound ordered to rule out hepatosplenomegaly in the setting of anemia
-Hyperkalemia: Resolved
Patient was hyperkalemic with postassium of 5.5 on 04/14/25
Lokelma given, Insulin adjusted to home dose.
Repeat potassium on 04/15/25 is 4.9 - within normal limits.
-Itchy rash:
Continue IV Benadryl
-Diarrhea:
Check stool sample for C. difficile if loose stool continues
- Urinary retention:
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
Patient self caths
Castillo catheter has been discontinued. Patient will be able to self cath as he usually does this in the outpatient setting
- History of ASCVD
- Status post stent palcement
- Chest pain:
EKG/troponin negative for any acute process
ASA held
Plavix 75mg held
Statin held
Continue Ranolazine
Continue Carvedilol
Type 1 diabetes with Hyperglycemia and neuropathy: Monitoring
A1C = 8.1% in January. Hba1c on 03/21/25 was 6.9 indicating improvement in overall glycemic control
Diabetes DIRECTOR OF PROCUREMENT consulted, recommendations appreciated
Lantus adjusted to 30 units, Aspart adjusted to 10 units at breakfast, lunch and dinner.
Continue gabapentin, continue duloxetine
-AMBER on CKD IIIa: Unresolved
Continue to monitoring creatinine, has been hovering around 1.4/1.5
Urine studies show pre-renal cause, likely from hypovolemic state
Continued elevated creatinine level at 1.6 on 04/04/2025
Continue monitoring BMP.
Holding torsemide - will resume near date of discharge.
IV fluid support
-GERD
Continue Pantoprazole
-Chronic inflammatory demyelinating polyneuropathy:
Continue current meds, will need to arrange for PLEX in outpatient setting once discharged
FULL CODE STATUS
Stress Ulcer Prophylaxis: Pantoprazole
DVT Prophylaxis: SCDs
Imaging:
-Left foot x-ray conducted on 03/21/2025:
Status post amputation at the level of the first through fifth proximal metatarsal bones.
No radiographic evidence for osteomyelitis.
- Bilateral lower extremity arterial ultrasound exam conducted on 03/23/2025:
1. Ankle-brachial indices and toe brachial indices could not be measured due to prior amputations.
2. No focal significant arterial stenosis demonstrated on the left side on duplex imaging. Spectral Doppler waveform analysis is suggestive of disease within the distal SFA/popliteal artery. Infrapopliteal disease may also be present.
3. Multiple lymph nodes are seen within the left thigh, which may be reactive.
-Peripheral vascular ultrasound of the left lower extremity conducted on 03/31/2025:
No evidence of DVT of the left lower extremity.
Procedures:
03/03/2025-initial amputation of left transmetatarsal
03/25/2025-debridement of infected left metatarsal amputation
04/04/2025-revision debridement of left heel wound with calcaneal biopsy.
Anticipated Discharge: > 48 hours
Subjective/Interval History
-
Date of Service: April 17, 2025
Met with patient at the bedside. Overall he states that he is doing the same as he did the day prior. He does not feel any shortness of breath, chest tightness, or chest pain. He has not had any nausea vomiting or diarrhea. He has not had any
episodes of excessive bleeding since his last transfusion.
Objective Data
-
Labs:
Laboratory Results
04/17/25
06:33
WBC 11.4 H
Hgb 8.7 L D
Hct 27.9 L
Plt Count 651 H
PT 13.7
INR 1.02
APTT 33.8
Sodium 140
Potassium 5.2 H
Chloride 108 H
Carbon Dioxide 27
BUN 21 H
Creatinine 1.0
Glucose 194 H
Calcium 8.5
Total Bilirubin 0.3
AST 12 L
ALT 11
Alkaline Phosphatase 76
Vital Signs:
Vital Signs
Temp Pulse Resp BP Pulse Ox
98.7 F 86 14 166/90 95
04/16/25 23:00 10/04/25 23:00 04/16/25 23:00 04/16/25 23:00 04/16/25 23:00
I&O
04/16/25 04/17/25 04/18/25
06:59 06:59 06:59
Intake Total 1160 / 1160 4090 / 4090
Output Total 2550 / 2550 3500 / 3500 1325 / 1325
Balance -1390 / -1390 590 / 590 -1325 / -1325
Review of Systems
-
History Source: Patient
Constitutional: Reports Fatigue
EENT: Reports No Symptoms Reported
Respiratory: Reports No Symptoms
Cardiac: Reports No Symptoms
Abdomen/GI: Reports No Symptoms
Breast: Reports No Symptoms
Musculoskeletal: Reports Joint Pain (Left foot) and Muscle Pain (Left foot)
Neuro: Reports No Symptoms
Endocrine: Reports No Symptoms
Physical Exam
-
General: Well Developed, Well Nourished, Comfortable, Conversant and Obese
HEENT: Normocephalic and Atraumatic
Respiratory: Clear to Auscultation and Non Labored Respirations; Negative Wheezes, Rales, Rhonchi or Crackles
Cardiac: Regular Rhythm and S1/S2; Negative Murmur, Calf Tenderness or Tachycardic
GI: Soft, Nontender, Nondistended and Normal Bowel Sounds; Negative Organomegaly
Genito-urinary: No Costovertebral Tender, Clear Urine and Castillo
Musculoskeletal: No Clubbing, No Cyanosis and Other (R BKA; left foot s/p Lisfranc Disarticulation; left foot wrapped in dressing, not bleeding at this time)
Skin: Warm, Dry and Other (CARA Drain with bloody fluid filling 1/4 of the bulb); Negative Rash or Ulcers
Neuro: Awake, Alert, Oriented, AO x 3 and No Sensory Deficits
Psych: Calm
[2025-04-17 08:00] VITALS: BP 143/78
[2025-04-17] MEDS: BENADRYL 25 MG IV ×2 (09:00→20:24)
[2025-04-17 10:00] LABS: Glucose - Point of Care 252 mg/dl (70-99)
[2025-04-17] MEDS: RANEXA EXTENDED RELEASE 1000 MG PO ×2 (11:19→20:19)
[2025-04-17] MEDS: NEURONTIN 300 MG PO ×3 (11:19→23:08)
[2025-04-17] MEDS: NOVOLOG FLEXPEN-LOW RESISTANCE 3 UNITS SC (11:19)
[2025-04-17] MEDS: COREG 25 MG PO ×2 (11:20→20:20)
[2025-04-17] MEDS: IMDUR (EXTENDED RELEASE) 60 MG PO (11:20)
[2025-04-17] MEDS: FEOSOL 325 MG PO ×2 (11:20→20:19)
[2025-04-17] MEDS: PROTONIX 40 MG PO (11:20)
[2025-04-17] MEDS: LANTUS 0.16 UNITS SC (11:23)
[2025-04-17] MEDS: CYMBALTA DELAYED RELEASE 30 MG PO (11:23)
[2025-04-17] MEDS: NOVOLOG FLEXPEN 8 UNITS SC (11:24)
[2025-04-17 11:25] LABS: Iron 38 ug/dl (49-181)
[2025-04-17 11:35] LABS: Total Iron Binding Capacity 209 ug/dl (261-462)
[2025-04-17 11:41] LABS: Reticulocyte Count 2.8 % (0.4-2.8)
[2025-04-17] MEDS: NOVOLOG FLEXPEN SC ×2 (11:51→18:10)
[2025-04-17] MEDS: LANTUS SC (11:52)
[2025-04-17 12:13] LABS: Ferritin 285.0 ng/ml (17.9-464.0)
[2025-04-17 12:14] LABS: Glucose - Point of Care 346 mg/dl (70-99)
[2025-04-17 12:44] LABS: Folate 3.5 ng/ml (2.76-20); Vitamin B12 588 pg/ml (239-931)
[2025-04-17] MEDS: NOVOLOG FLEXPEN 10 UNITS SC (12:51)
[2025-04-17] MEDS: NOVOLOG FLEXPEN-LOW RESISTANCE 4 UNITS SC (12:51)
--- NOTE | 2025-04-17 14:26 | CON.ONC ---
Consultation
-
Date Consultation Requested: 04/17/25
Date Consultation Performed: 04/17/25
Requesting Provider: Karina
Performing Provider: neo
Reason for Consultation: refractory anemia
Impression
Impression
- persistent moderate to severe anemia
- osteomyelitis s/p toe amputation
- diabetes
Plan
Plan
- pt has had persistent anemia in the setting of osteomyelitis requiring multiple hospitalizations, abx and surgical interventions.
- anemia work-up to date without monoclonal protein on SPEP, normal B12 folate. ESR markedly elevated at 136. IS mild low with inappropriately normal ferritin in setting of inflammation. this supports likely some element of WILBER however would hold
off on IV iron with active infection. Continue PO iron supplement for now.
- check stool hemoccult. although I suspect anemia more related to chronic illness/inflammation if stool hemoccult positive recommend GI evaluation to rule out occult GI losses contributing to anemia.
- CBC daily. transfuse for hgb < 7.0 g/dl.
Patient History
History of Present Illness
patient is a 29 yo M w/ hx of uncontrolled diabetes, PAD s/p R BKA with multiple hospitalizations over past several months for diabetic wounds, osteomyelitis. He is now on 25th day of this admission for infection of left metatarsals with multiple
surgical inventions and amputations on 03/27, 04/04 and 04/14. Throughout his hospital stays as far as our records go he has had persistent moderate to severe anemia with hgb consistently in 8-9 g/dl however multiple drops < 7.0 g/dl requiring
transfusions. He has received 11 units pRBCs through out this stay with most recent 04/16 for hgb 7.0 g/dl, now up to 8.7 g/dl. He has had intermittent operative, post-op bleeding however overall no marked bleeding to explain declines. He denies
having issues with anemia prior to ~ 6 months ago when he had first transfusion during hospital stay in [place]. He had work-up that down for the new anemia and says he was scheduled to have endoscopic exams however was extradited back to [place] before
this was done. He does not intermittent dark stool and having frequent loose stools recently. Denies gurinder blood except for rarely hemorrhoids. Denies family hx of GI cancers however both parents young from other complications. he is on ASA,
plavix at home for hx of PAD. he also takes PO iron for a couple of years.
Patient Medication
�Medication �Instructions �Recorded �Confirmed �Last Taken �Type
aspirin 81 mg tablet,delayed 81 mg PO DAILY Blood Clot 02/02/25 03/23/25 02/02/25 History
release Prevention/Tx
atorvastatin 80 mg tablet 80 mg PO HS High Cholesterol 02/02/25 03/23/25 02/02/25 History
carvedilol 25 mg tablet 25 mg PO BID Heart Failure 02/02/25 03/23/25 02/02/25 History
insulin glargine 100 unit/mL (3 30 unit SC BID Diabetes 02/02/25 03/23/25 02/02/25 History
mL) subcutaneous pen (Lantus
Solostar U-100 Insulin)
isosorbide mononitrate 60 mg 60 mg PO DAILY Heart 02/02/25 03/23/25 02/02/25 History
tablet,extended release 24 hr Disease/Condition
pantoprazole 40 mg tablet,delayed 40 mg PO DAILY Gastrointestinal 02/02/25 03/23/25 02/02/25 History
release (Protonix) Issue
ranolazine 1,000 mg 1,000 mg PO BID Heart 02/02/25 03/23/25 02/02/25 History
tablet,extended release,12 hr Disease/Condition
duloxetine 30 mg capsule,delayed 30 mg PO DAILY Mental 02/07/25 03/23/25 Unknown History
release Health/Anxiety
gabapentin 300 mg capsule 300 mg PO TID NEUROPATHIC PAIN 02/07/25 03/23/25 Unknown History
insulin regular human 100 unit/mL 1 sliding scale dose SC AC Diabetes 02/07/25 03/23/25 Unknown History
injection solution (Humulin R
Regular U-100 Insulin)
docusate sodium 100 mg capsule 100 mg PO BID #30 caps 02/21/25 03/23/25 Unknown Rx
torsemide 20 mg tablet 40 mg PO DAILY Fluid 03/05/25 03/23/25 Unknown History
Retention/Swelling
insulin aspart U-100 100 unit/mL 10 unit (0.1 mL) SC AC #15 mL 03/18/25 03/23/25 Unknown Rx
(3 mL) subcutaneous pen
clopidogrel 75 mg tablet 75 mg PO DAILY Blood Clot 03/21/25 03/23/25 Unknown History
Prevention/Tx
collagenase clostridium histo. 250 1 applic topical HS Skin Issues 03/21/25 03/23/25 Unknown History
unit/gram topical ointment (Santyl)
sodium hypochlorite 0.5 % solution 1 applic topical BID WOUND 03/21/25 03/23/25 Unknown History
(Dakin's Solution)
mirtazapine 30 mg tablet 30 mg PO HS Mental Health/Anxiety 03/23/25 03/23/25 Unknown History
Active Medications
Generic Name Dose Route Start Last Admin
Trade Name Freq PRN Reason Stop Dose Admin
Acetaminophen 1,000 mg 03/28/25 18:00 04/17/25 12:53
Acetaminophen 500 Mg Tablet PO 04/25/25 17:59 1,000 mg
Q6 JATIN Administration
Aspirin 81 mg 03/22/25 08:00 04/01/25 08:24
Aspirin 81 Mg (Enteric Coated) Tablet PO 05/15/25 07:59 81 mg
On Hold: 04/01/25 17:17 DAILY JATIN Administration
Carvedilol 25 mg 03/22/25 08:00 04/17/25 11:20
Carvedilol 25 Mg Tablet PO 05/15/25 07:59 25 mg
BID JATIN Administration
Clopidogrel Bisulfate 75 mg 03/22/25 08:00 04/04/25 08:54
Clopidogrel 75 Mg Tablet PO 05/15/25 07:59 75 mg
On Hold: 04/04/25 23:22 DAILY JATIN Administration
Dextrose 12.5 grams 03/22/25 02:04 03/22/25 08:25
Dextrose 50% (0.5 Grams/Ml) 50 Ml Syringe IV 05/15/25 02:03 12.5 grams
[id number] PRN Administration
hypoglycemia
Protocol
Diphenhydramine HCl 25 mg 04/10/25 09:42 04/17/25 09:00
Diphenhydramine 50 Mg/Ml 1 Ml Vial IV 05/08/25 09:37 25 mg
Q8HPRN PRN Administration
Itchiness
Docusate Sodium 100 mg 03/28/25 11:25
Docusate Sodium 100 Mg Capsule PO 04/25/25 11:24
QIDPRN PRN
Constipation
Duloxetine HCl 30 mg 03/22/25 08:00 04/17/25 11:23
Duloxetine Delayed Release 30 Mg Capsule PO 05/15/25 07:59 30 mg
DAILY JATIN Administration
Enoxaparin Sodium 40 mg 03/22/25 18:00 04/01/25 17:10
Enoxaparin Sodium 40 Mg/0.4 Ml Syringe SC 05/15/25 17:59 Not Given
On Hold: 04/01/25 17:10 QPM JATIN
Ferrous Sulfate 325 mg 03/22/25 08:00 04/17/25 11:20
Ferrous Sulfate 325 Mg Tablet PO 05/15/25 07:59 325 mg
BID JATIN Administration
Gabapentin 300 mg 03/22/25 08:00 04/17/25 11:19
Gabapentin 300 Mg Capsule PO 05/15/25 07:59 300 mg
TID JATIN Administration
Glucagon 1 mg 03/22/25 02:04
Glucagon 1 Mg Vial IM 05/15/25 02:03
PRN PRN
hypoglycemia
Protocol
Hydromorphone HCl 0.25 mg 04/10/25 22:00 04/17/25 12:54
Hydromorphone 0.25 Mg/0.5 Ml Syringe IV 04/24/25 21:59 0.25 mg
Q6HPRN PRN Administration
severe pain
Daptomycin 800 mg/ Device 16 mls @ 0 mls/hr 03/25/25 15:00 04/16/25 15:49
IV 16 mls
Q24H JATIN Administration
As Directed
Ceftazidime/Avibactam 2,500 mg 62 mls @ 18.667 mls/hr 04/17/25 06:00 04/17/25 06:17
/ Sodium Chloride IV 62 mls
Q8H JATIN Administration
Insulin Glargine 30 units/ 0.3 mls @ 0 mls/hr 04/18/25 08:00
Device SC 05/16/25 07:59
DAILY JATIN
As Directed
Insulin Glargine 30 units/ 0.3 mls @ 0 mls/hr 04/17/25 10:56
Device SC 05/13/25 12:50
HS JATIN
As Directed
Insulin Aspart 0 units 04/13/25 21:54 04/17/25 12:51
Insulin Aspart Low Resistance 300 Units/3 Ml Pen.Injctr SC 05/11/25 05:59 4 units
AC JATIN Administration
Protocol
Insulin Aspart 10 units 04/17/25 08:57
Insulin Aspart (Novolog) 100 Units/Ml 3 Ml Flexpen SC 05/05/25 16:29
DAILY@1630 JATIN
Insulin Aspart 10 units 04/17/25 08:57 04/17/25 12:51
Insulin Aspart (Novolog) 100 Units/Ml 3 Ml Flexpen SC 05/05/25 11:29 10 units
DAILY@1130 JATIN Administration
Insulin Aspart 10 units 04/18/25 12:51
Insulin Aspart (Novolog) 100 Units/Ml 3 Ml Flexpen SC 05/16/25 12:50
DAILY@0730 JATIN
Isosorbide Mononitrate 60 mg 03/22/25 08:00 04/17/25 11:20
Isosorbide Mononitrate 60 Mg Extended Release Tablet PO 05/15/25 08:00 60 mg
DAILY JATIN Administration
Mirtazapine 30 mg 03/22/25 22:00 04/16/25 21:42
Mirtazapine 15 Mg Regular Release Tablet PO 05/15/25 21:59 30 mg
HS JATIN Administration
Pantoprazole Sodium 40 mg 03/22/25 08:00 04/17/25 11:20
Pantoprazole 40 Mg Delayed Release Tablet PO 05/15/25 07:59 40 mg
DAILY JATIN Administration
Polyethylene Glycol 17 grams 03/22/25 02:04
Polyethylene Glycol Powder 17 Grams Packet PO 05/15/25 02:03
DAILY PRN
Constipation
Ranolazine 1,000 mg 03/22/25 08:00 04/17/25 11:19
Ranolazine 500 Mg Extended Release Tablet PO 05/15/25 07:59 1,000 mg
BID JATIN Administration
Sodium Chloride 0 flush 03/22/25 03:00 03/27/25 04:04
Sodium Chloride 0.9% (Flush) Syringe IV 05/15/25 02:59 1 flush
PER PROTOCOL JATIN Administration
Torsemide 40 mg 03/22/25 08:00 04/05/25 09:12
Torsemide 20 Mg Tablet PO 05/15/25 07:59 40 mg
On Hold: 04/05/25 16:17 DAILY JATIN Administration
Review of Systems
-
History Source: Patient
All Other Systems: Reviewed and Negative (except noted in HPI)
Physical Exam
-
General: Well Developed, Well Nourished, No Apparent Distress and Obese
HEENT: Negative Jaundice
Cardiology: Normal Sinus Rhythm
Pulmonary: Clear
Extremities: Other (s/p RLE BKA. stump without bleeding, healed. LLE foot dressing dry.)
Neurology: Non Focal
Hematologic / Lymphatic: No Petechiae
Labs
Lab Results
WBC 11.4 10^3/uL (4.8-10.8) H 04/17/25 06:33
RBC 3.12 10^6/uL (4.70-6.10) L 04/17/25 06:33
Hgb 8.7 g/dL (13.0-18.0) L D 04/17/25 06:33
Hct 27.9 % (39.0-52.0) L 04/17/25 06:33
MCV 89.4 fL (80.0-94.0) 04/17/25 06:33
MCH 27.9 pg (27.0-31.0) 04/17/25 06:33
MCHC 31.2 g/dL (33.0-37.0) L 04/17/25 06:33
RDW 15.9 % (11.5-14.5) H 04/17/25 06:33
Plt Count 651 10^3/uL (130-400) H 04/17/25 06:33
MPV 9.0 fL (7.4-10.4) 04/17/25 06:33
Abs Immat Gran (auto) 0.5 10^3/uL (0-0.05) H 04/17/25 06:33
Absolute Neuts (auto) 6.8 10^3/uL (1.4-6.5) H 04/17/25 06:33
Absolute Lymphs (auto) 2.7 10^3/uL (1.2-3.4) 04/17/25 06:33
Absolute Monos (auto) 0.8 10^3/uL (0.1-0.6) H 04/17/25 06:33
Absolute Eos (auto) 0.5 10^3/uL (0-0.7) 04/17/25 06:33
Absolute Basos (auto) 0.1 10^3/uL (0-0.2) 04/17/25 06:33
Immature Gran % 4.6 % (0-0.5) H 04/17/25 06:33
Neutrophils % 59.9 % (42.2-75.2) 04/17/25 06:33
Lymphocytes % 23.8 % (20.5-51.1) 04/17/25 06:33
Monocytes % 6.8 % (1.7-9.3) 04/17/25 06:33
Eosinophils % 4.2 % (0-6) 04/17/25 06:33
Basophils % 0.7 % (0-2) 04/17/25 06:33
Creatinine 1.0 mg/dL (0.7-1.3) 04/17/25 06:33
Vital Signs
Vital Signs
Temp Pulse Resp BP Pulse Ox
98.0 F 82 18 143/78 98
04/17/25 08:00 04/17/25 11:20 04/17/25 08:00 04/17/25 11:20 04/17/25 08:00
[2025-04-17 15:09] VITALS: BP 126/69
[2025-04-17] MEDS: CUBICIN 16 MG IV (15:09)
[2025-04-17 16:40] LABS: Glucose - Point of Care 100 mg/dl (70-99)
[2025-04-17] MEDS: NOVOLOG FLEXPEN-LOW RESISTANCE SC (17:09)
[2025-04-17 20:59] LABS: Glucose - Point of Care 183 mg/dl (70-99)
[2025-04-17] MEDS: REMERON 30 MG PO (23:08)
[2025-04-17 23:13] LABS: Glucose - Point of Care 195 mg/dl (70-99)
[2025-04-17] MEDS: LANTUS 0.3 UNITS SC (23:14)
[2025-04-18 00:02] VITALS: BP 119/68
[2025-04-18 05:55] VITALS: BMI 31.7
[2025-04-18] MEDS: TYLENOL 1000 MG PO ×3 (06:07→23:06)
[2025-04-18] MEDS: DILAUDID 0.25 MG IV ×3 (06:15→20:24)
--- NOTE | 2025-04-18 07:43 | PN.DE.MGMTRT ---
Insulin Management
- -
04/18/2025: Diabetes Management Follow up
Patient admitted from [facility] 03/21 with c/o bleeding L heel wound. PMH type 1 diabetes, R BKA, L toe amputation, recent debridement L heel, [place], CHF, HTN, CKD, NC, recent admission 01/21 and 03/05 s/p
transmetatarsal L amputation and debridement. Prior to admission was receiving Lantus 30 units BID with Humalog insulin ss AC. A1C on admission 6.9%, (improved from 8.1%). Cr 1.1, eGFR > 60 today.
Prior to incarceration was [facility] a [facility] per patient he will return there.
Patient is awake, alert, resting in bed, offers no complaints, able to discuss diabetes care plan.
POD # 5 s/p Left Lisfranc disarticulation closed and L heel debridement, hgb 8.2 today.
04/16, No HS Lantus given due to hypoglycemia of 57. 10/ Pt received reduced dose of Lantus 16 units in AM and AC NovoLog dose was reduced to 10 units. 04/17 Premeal glucose trended up to 346. HS Glucose was 183, pt received Lantus 30 units, fasting
glucose 190 v, 213 POC.
Will adjust AM Lantus dose to 25 units and continue PM dose of 30 units. Cont AC NovoLog to 10 units.
Cont low corrective with meals. Will assess glucose trend for need to further adjust insulin today if necessary.
Discussed with nurse. Will cont to follow.
Diabetes History
- -
Type of Diabetes: 1
Pre-Admission Diabetes Regimen
Lab Results
Hemoglobin A1c 6.9 % (4.0-5.6) H 03/22/25 06:24
Insulin Pump Settings
IP Diabetes Regimen
04/17/25 04/17/25 04/17/25
09:59 12:13 16:36
POC Glucose 252 H 346 H 100 H
04/17/25 04/17/25
20:57 23:11
POC Glucose 183 H 195 H
Meal type: Dinner
Meal type: Lunch
Meal type: Breakfast
Amount consumed: 100%
Amount consumed: 100%
Amount consumed: 100%
Patient Education
[2025-04-18 07:51] LABS: Glucose - Point of Care 213 mg/dl (70-99)
[2025-04-18 08:20] VITALS: BP 132/82
[2025-04-18 08:20] LABS: Hematocrit 26.4 % (39.0-52.0); Hemoglobin 8.2 g/dL (13.0-18.0); Mean Corp Hgb Conc. 31.1 g/dL (33.0-37.0); Mean Corpuscular Volume 90.7 fL (80.0-94.0); Platelet Count 626 10^3/uL (130-400); Red Cell Dist. Width 15.9 % (11.5-14.5)
[2025-04-18 08:50] LABS: ALT (SGPT) 10 U/L (0-50); AST (SGOT) 12 U/L (17-59); Albumin 2.9 g/dl (3.5-5.0); Alkaline Phosphatase 76 U/L (38-126); Blood Urea Nitrogen 22 mg/dl (9-20); Calcium 8.5 mg/dl (8.4-10.2); Carbon Dioxide 24 mmol/L (22-30); Chloride 108 mmol/L (98-107); Estimated Creatinine Clearance 125 ml/min; Glucose 190 mg/dl (70-99); Potassium 5.7 mmol/L (3.5-5.1); Sodium 138 mmol/L (135-145); Total Protein 6.2 g/dl (6.3-8.2); eGFR > 60.00
--- NOTE | 2025-04-18 09:32 | W.PN.ONC2 ---
Today's Communication / Plan
-
daily CBC, transfuse prn, monitor for bleeding, f/u heme stool
Impression
Impression
- persistent moderate to severe anemia -work-up to date without monoclonal protein on SPEP, normal B12 folate. ESR markedly elevated at 136.
-BOBBY + IgG +1, complement negative, elution negative, no antibodies detected
- osteomyelitis s/p toe amputation
- diabetes
Plan
Plan
- pt has had persistent anemia in the setting of osteomyelitis requiring multiple hospitalizations, abx and surgical interventions.
- IS mild low with inappropriately normal ferritin in setting of inflammation. this supports likely some element of WILBER however would hold off on IV iron with active infection. Continue PO iron supplement for now.
- check stool hemoccult. although I suspect anemia more related to chronic illness/inflammation if stool hemoccult positive recommend GI evaluation to rule out occult GI losses contributing to anemia.
- CBC daily. transfuse for hgb < 7.0 g/dl.
Subjective/Objective
Subjective
afebrile, no hypoxia, no hypotension
using tylenol, gabapentin, hydromorphone for pain
denies overt bleeding
Vital Signs:
Vital Signs
Temp Pulse Resp BP Pulse Ox
97.4 F 74 18 132/82 98
04/18/25 08:20 04/18/25 08:20 04/18/25 08:20 04/18/25 08:20 04/18/25 08:20
Lab Results:
Laboratory Data
WBC 11.7 10^3/uL (4.8-10.8) H 04/18/25 07:04
Hgb 8.2 g/dL (13.0-18.0) L 04/18/25 07:04
Plt Count 626 10^3/uL (130-400) H 04/18/25 07:04
PT 13.7 Sec (11.4-14.6) 04/17/25 06:33
INR 1.02 04/17/25 06:33
APTT 33.8 Sec (23.4-35.0) 04/17/25 06:33
eGFR > 60.00 04/18/25 07:04
Physical Exam
General: Well Developed, Well Nourished, No Apparent Distress and Obese
HEENT: Negative Jaundice
Cardiology: Normal Sinus Rhythm
Pulmonary: Clear
Extremities: Other (s/p RLE BKA. stump without bleeding, healed. LLE foot dressing dry.)
Neurology: Non Focal
Hematologic / Lymphatic: No Petechiae
--- NOTE | 2025-04-18 09:33 | W.PN.HOSP.TC ---
Addendum entered and electronically signed by Min Collins MD 04/18/25 17:14:
29-year-old male recently admitted to [facility] on 03/05/2025 to 03/17/2025 for osteomyelitis of the left foot. He underwent amputation of the first 2 digits of the left foot on 01/21/2025. Return with wound dehiscence and ultimately
required TMA and heel debridement on 03/08/2025. Completed inpatient course of antibiotics on 03/16/2025. Reportedly he 'banged' his foot on the vehicle while leaving the hospital and returned on the same day for evaluation of the wound. Since then
he has had worsening of bleeding and oozing from the left foot with increased pain in the left foot. Previous notes and discharge summaries reviewed, suspecting that the patient was picking on his surgical wounds which led to the bleeding and
possible infection..
Echo 02/15/2025-normal LV size, wall thickness and systolic function. Right ventricular size and systolic function within normal limits. LA is normal. RA is normal.
Ultrasound of the abdomen-no hepatosplenomegaly
Patient is awake alert oriented
Cardiovascular system S1-S2 appreciated
Chest clear to auscultation
Abdomen soft and nontender
Right BKA stump is stable
Left TMA site bandaged
# Osteomyelitis of the left foot TMA site, wound dehiscence with necrosis
Went to the OR on 03/25/2025 for I&D, removal of necrotic bone and amputation site, heel wound debridement and wound VAC-cultures grew VRE and MRSA. Wound pathology showed acute osteomyelitis
Status post revision on 04/04/2025-open TMA revision , removal of nonviable bone and heel wound debridement down to subcutaneous tissue-cultures Enterobacter Cloacae. Pathology clearing fragment chronic osteomyelitis
04/13/2025-Status post left Lisfranc disarticulation, heel wound debridement, plantar flap. Cultures with Enterobacter. Biopsy pending
May need BKA if continues to have osteomyelitis/infection
Strict nonweightbearing
IV antibiotics-daptomycin started on 03/25/2025. Ceftazidime /Avibactam started on 04/06/2025
Infectious disease following
# Diabetes-hemoglobin [id number] reliable in the setting of anemia
Was on Lantus 30 units twice daily and NovoLog 10 units AC prior to arrival
Changed back to 30 units of Lantus and and 30 U pm and 10 units of NovoLog AC with sliding scale with low blood sugars
# Mild hyperkalemia- Lokelma
# Acute blood loss anemia secondary to bleeding from left TMA and heel debridement on top of chronic anemia
No active bleeding at present but patient still is anemic
Check heme test stools, LDH and haptoglobin, PT PTT INR, Candie test
10 units of PRBCs transfused this admission
Candie test positive, no antibodies and complement negative therefore hemolysis not suspected.
Hematology evaluation appreciated
Heme chest stools -Heme neg
Aspirin and Plavix on hold
# Coronary disease with history of PCI-restart aspirin as soon as possible . Continue Imdur, Ranexa and Coreg. Holding statin as being on daptomycin
# Thrombocytosis-likely secondary to infection
# History of heart failure unknown type per chart. Normal EF now.
# Acute kidney injury-resolved
# Hypertension-continue Coreg
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 Continue duloxetine and gabapentin for pain
# Peripheral disease with history of right BKA
# Left hallux and second toe osteomyelitis with amputation and debridement of the left heel ulcer January 21, 2025
Left foot TMA I&D left heel wound and bone biopsy of the heel March 08, 2025-negative pathology for osteomyelitis
# Diabetic neuropathy-continue gabapentin and duloxetine
# Hyperlipidemia-holding statin being on daptomycin
# Chronic urinary retention/neurogenic bladder-self catheterizes
# GERD-continue PPI
# Anxiety and depression-on Remeron, duloxetine
# Hypoalbuminemia
# Gallstones
# DVT prophylaxis-SCDs
# Full code
D/W RN
D/W Heme
Original Note:
Today's Communication/Plan
-
Continue current antibiotics
Continue to follow blood glucose levels and adjust insulin as indicated
Potassium was 5.7 this morning - lokelma given - will check repeat BMP
Awaiting surgical pathology results
Assessment / Plan
Assessment / Plan
HPI: 29-year-old male with PMHx significant for insulin-dependent type 1 diabetes mellitus, CIDP, Hypertension, GERD, CKD stage IIIA, history of osteomyelitis and TMA is admitted to the hospital for evaluation and management of acute blood loss
anemia from TMA wound dehiscence.
Assessment/Plan:
-Left foot TMA site with wound dehiscence:
-History of left foot TMA on 03/08:
-Acute bleed: from site of L TMA and Heel Debridement (03/25 and 04/08)
-Acute blood Loss Anemia secondary to the above:
Vascular ultrasound showed no significant arterial stenosis on the left however Doppler waveforms suggest disease within the distal SFA/popliteal artery and infrapopliteal disease may also be present as per arterial studies. Multiple lymph nodes
were also seen in the left thigh which may be reactive.
Wound cultures grew MRSA, VRE
Blood cultures did not show any growth
Underwent ultrasound of the left lower extremity did not show any evidence of DVT
Iron supplementation continue
Continue monitoring hemoglobin daily and transfuse as needed to maintain hemoglobin greater than 7
Status postdebridement 03/25.
Pathology results came back which showed focal acute osteomyelitis and detached fragment of fibrino-purulent exudate
Patient underwent his open TMA revision and wound debridement on 04/04 -there was significant drainage postoperatively - pathology positive for acute and chronic osteomyelitis
Wound culture from 04/04 positive for Enterobacter Cloacae
Continue antibiotics as per ID recommendations
Podiatry recommends nonweightbearing to the left lower extremity and continued elevation of the extremity on 2-3 pillows
Continue Daptomycin (currently on day 21 on 04/14/2025)
Continue ceftazidime/avibactam 1250 mg (Day 9 on 04/14/25) as per infectious diseases recommendations
Patient's lab work on the morning of 04/07/2025 had a hemoglobin at 7.1 with a hematocrit of 20.7�repeat H&H ordered which was 6.7 - 1 PRBC ordered on 04/07/25
Podiatry has tentatively planned for revision surgery of the L foot after pathology returns from most recent debridement on 04/06/25
Patient had an episode of acute blood loss on 04/08/2025 where a large amount of blood was lost from his foot wound. 1 PRBC given on 04/08/25
Scheduled for OR with podiatry for debridement vs lisfranc disarticulation on 04/13/25 - procedure tolerated well
Patient's Hgb is 7.5 on 04/15/25 - will continue to follow - if <7 then will transfuse PRBCs
Patient received 1 unit of PRBCs on 04/16/2025
Continue Holding anticoagulants postoperatively - will resume near discharge date
Appreciate ID recommendations - likely to be discharged on oral abx after most recent wound culture and bone pathology is complete
Appreciate hematology recommendations -they are under the impression that the patient is suffering from some element of WILBER and recommended continuing with oral iron supplement.
We have initiated anemia workup with LDH at 171, haptoglobin pending, Positive Candie test, 1+ BOBBY IgG, stool heme test, and PT/PTT were within normal limits. Based on positive Candie test, consider drug-induced immune hemolytic anemia, delayed
hemolytic transfusion reaction, or cold agglutinin disease
Abdominal ultrasound found that the liver and spleen were within normal limits in size without hepatosplenomegaly. No ascites. Tiny gallstones without sonographic features of acute cholecystitis. No bile duct dilatation.
-Hyperkalemia: Resolved
Patient was hyperkalemic with postassium of 5.5 on 04/14/25
Lokelma given, Insulin adjusted to home dose.
Repeat potassium on 04/15/25 is 4.9 - within normal limits.
Potassium was 5.7 on 04/18/2025�Lokelma given�Will repeat with BMP
-Itchy rash:
Continue IV Benadryl
-Diarrhea:
Check stool sample for C. difficile if loose stool continues
- Urinary retention:
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
Patient self caths
Castillo catheter has been discontinued. Patient will be able to self cath as he usually does this in the outpatient setting
- History of ASCVD
- Status post stent palcement
- Chest pain:
EKG/troponin negative for any acute process
ASA held
Plavix 75mg held
Statin held
Continue Ranolazine
Continue Carvedilol
Type 1 diabetes with Hyperglycemia and neuropathy: Monitoring
A1C = 8.1% in January. Hba1c on 03/21/25 was 6.9 indicating improvement in overall glycemic control
Diabetes [employer] consulted, recommendations appreciated
Lantus adjusted to 30 units, Aspart adjusted to 10 units at breakfast, lunch and dinner.
Continue gabapentin, continue duloxetine
-AMBER on CKD IIIa: Unresolved
Continue to monitoring creatinine, has been hovering around 1.4/1.5
Urine studies show pre-renal cause, likely from hypovolemic state
Continued elevated creatinine level at 1.6 on 04/04/2025
Continue monitoring BMP.
Holding torsemide - will resume near date of discharge.
IV fluid support
-GERD
Continue Pantoprazole
-Chronic inflammatory demyelinating polyneuropathy:
Continue current meds, will need to arrange for PLEX in outpatient setting once discharged
FULL CODE STATUS
Stress Ulcer Prophylaxis: Pantoprazole
DVT Prophylaxis: SCDs
Imaging:
-Left foot x-ray conducted on 03/21/2025:
Status post amputation at the level of the first through fifth proximal metatarsal bones.
No radiographic evidence for osteomyelitis.
- Bilateral lower extremity arterial ultrasound exam conducted on 03/23/2025:
1. Ankle-brachial indices and toe brachial indices could not be measured due to prior amputations.
2. No focal significant arterial stenosis demonstrated on the left side on duplex imaging. Spectral Doppler waveform analysis is suggestive of disease within the distal SFA/popliteal artery. Infrapopliteal disease may also be present.
3. Multiple lymph nodes are seen within the left thigh, which may be reactive.
-Peripheral vascular ultrasound of the left lower extremity conducted on 03/31/2025:
No evidence of DVT of the left lower extremity.
Procedures:
03/03/2025-initial amputation of left transmetatarsal
03/25/2025-debridement of infected left metatarsal amputation
04/04/2025-revision debridement of left heel wound with calcaneal biopsy.
Anticipated Discharge: > 48 hours
Subjective/Interval History
-
Date of Service: April 18, 2025
Objective Data
-
Labs:
Laboratory Results
04/18/25 04/18/25
07:04 15:00
WBC 11.7 H
Hgb 8.2 L
Hct 26.4 L
Plt Count 626 H
Sodium 138 Pending
Potassium 5.7 H Pending
Chloride 108 H Pending
Carbon Dioxide 24 Pending
BUN 22 H Pending
Creatinine 1.1 Pending
Glucose 190 H Pending
Calcium 8.5 Pending
Total Bilirubin 0.4
AST 12 L
ALT 10
Alkaline Phosphatase 76
Vital Signs:
Vital Signs
Temp Pulse Resp BP Pulse Ox
97.4 F 74 18 132/82 98
04/18/25 08:20 04/18/25 08:20 04/18/25 08:20 04/18/25 08:20 04/18/25 08:20
I&O
04/17/25 04/18/25 04/19/25
06:59 06:59 06:59
Intake Total 4090 / 4090
Output Total 3500 / 3500 3325 / 3325
Balance 590 / 590 -3325 / -3325
[2025-04-18] MEDS: LOKELMA 5 GRAM PO (10:06)
[2025-04-18] MEDS: NOVOLOG FLEXPEN-LOW RESISTANCE 2 UNITS SC (10:06)
[2025-04-18] MEDS: LANTUS 0.25 UNITS SC (10:09)
[2025-04-18 10:21] LABS: Nucleated Red Blood Cells % 0 % (-)
--- NOTE | 2025-04-18 10:23 | CM ---
Chart reviewed and geriatric case manager spoke with [facility] today, and updated them on patient progress, wound care, patient able to self straight cath, may need IV ABX at discharge, per nursing at [facility] they are able to provide all patient care needs including
IV ABX if ordered at discharge.
Plan; Patient to return to [facility] when stable.
[facility]
[phone]
[2025-04-18 10:41] LABS: LDH 200 U/L (120-246)
[2025-04-18 11:52] LABS: Glucose - Point of Care 338 mg/dl (70-99)
[2025-04-18] MEDS: NOVOLOG FLEXPEN-LOW RESISTANCE 4 UNITS SC (12:31)
[2025-04-18] MEDS: NOVOLOG FLEXPEN 10 UNITS SC ×2 (12:32→18:04)
[2025-04-18] MEDS: NOVOLOG FLEXPEN SC (12:36)
[2025-04-18] MEDS: CYMBALTA DELAYED RELEASE 30 MG PO (12:36)
[2025-04-18] MEDS: NEURONTIN 300 MG PO ×2 (12:36→22:07)
[2025-04-18] MEDS: PROTONIX 40 MG PO (12:37)
[2025-04-18] MEDS: FEOSOL 325 MG PO ×2 (12:37→20:24)
[2025-04-18] MEDS: RANEXA EXTENDED RELEASE 1000 MG PO ×2 (12:37→20:23)
[2025-04-18] MEDS: IMDUR (EXTENDED RELEASE) 60 MG PO (12:38)
[2025-04-18] MEDS: COREG 25 MG PO ×2 (12:38→20:23)
[2025-04-18] MEDS: FLUSH (NSS) 1 FLUSH IV (12:39)
[2025-04-18] MEDS: BENADRYL 25 MG IV ×2 (12:42→20:44)
[2025-04-18 13:01] VITALS: BP 185/97
[2025-04-18] MEDS: CUBICIN 16 MG IV (15:17)
[2025-04-18 15:41] LABS: Blood Urea Nitrogen 23 mg/dl (9-20); Calcium 8.3 mg/dl (8.4-10.2); Carbon Dioxide 27 mmol/L (22-30); Chloride 107 mmol/L (98-107); Estimated Creatinine Clearance 114 ml/min; Glucose 249 mg/dl (70-99); Potassium 5.4 mmol/L (3.5-5.1); Sodium 139 mmol/L (135-145); eGFR > 60.00
[2025-04-18 16:35] LABS: Glucose - Point of Care 195 mg/dl (70-99)
[2025-04-18 16:49] VITALS: BP 110/65
[2025-04-18] MEDS: NOVOLOG FLEXPEN-LOW RESISTANCE 1 UNITS SC (18:03)
[2025-04-18] MEDS: TYLENOL PO (18:06)
[2025-04-18] MEDS: NEURONTIN PO (18:06)
[2025-04-18] MEDS: LOKELMA 10 GRAM PO (18:07)
[2025-04-18 21:20] LABS: Glucose - Point of Care 77 mg/dl (70-99)
[2025-04-18] MEDS: REMERON 30 MG PO (22:07)
[2025-04-18 22:33] LABS: Glucose - Point of Care 121 mg/dl (70-99)
[2025-04-18] MEDS: LANTUS 0.3 UNITS SC (22:34)
[2025-04-18 22:53] VITALS: BP 103/53
[2025-04-19] MEDS: DILAUDID 0.25 MG IV ×3 (02:37→21:59)
[2025-04-19] MEDS: BENADRYL 25 MG IV ×2 (05:02→15:51)
[2025-04-19] MEDS: TYLENOL 1000 MG PO ×3 (05:02→17:50)
[2025-04-19 06:00] VITALS: BMI 31.6
[2025-04-19 07:25] VITALS: BP 136/72
--- NOTE | 2025-04-19 08:07 | PN.DE.MGMTRT ---
Insulin Management
- -
04/19/2025: Diabetes Management Follow up
Patient admitted from [facility] 03/21 with c/o bleeding L heel wound. PMH type 1 diabetes, R BKA, L toe amputation, recent debridement L heel, Guillian Applegate, CHF, HTN, CKD, [place], recent admission 01/21 and 03/05 s/p
transmetatarsal L amputation and debridement. Prior to admission was receiving Lantus 30 units BID with Humalog insulin ss AC. A1C on admission 6.9%, (improved from 8.1%). Cr 1.1, eGFR > 60 today.
Prior to incarceration was living in a snf per patient he will return there.
Patient is awake, alert, resting in bed, offers no complaints, able to discuss diabetes care plan.
POD # 6 s/p Left Lisfranc disarticulation closed and L heel debridement, hgb 8.2 today.
Insulin regimen 25 units lantus in AM with 30 units @ HS resumed yesterday. Patient received no AM novolog, glucose pre lunch 338. Glucose improved to 121 @ HS.
Fasting glucose this AM 153.
Will continue lantus 25 units in AM and 30 units @ HS with novolog 10 units novolog AC with low corrective with meals. Will assess glucose trend for need to further adjust insulin today if necessary.
Discussed with nurse. Will cont to follow.
Diabetes History
- -
Type of Diabetes: 1
Pre-Admission Diabetes Regimen
04/18/25 04/18/25
07:04 15:12
Creatinine 1.1 1.2
Lab Results
Hemoglobin A1c 6.9 % (4.0-5.6) H 03/22/25 06:24
Insulin Pump Settings
IP Diabetes Regimen
04/18/25 04/18/25 04/18/25
07:04 11:50 15:12
Glucose 190 H 249 H
POC Glucose 338 H
04/18/25 04/18/25 04/18/25
16:19 21:19 22:32
Glucose
POC Glucose 195 H 77 121 H
Meal type: Dinner
Amount consumed: 100%
Patient Education
[2025-04-19 08:39] LABS: Glucose - Point of Care 172 mg/dl (70-99)
--- NOTE | 2025-04-19 08:41 | W.PN.ONC2 ---
Today's Communication / Plan
-
daily CBC, f/u heme stool, transfuse prn
Impression
Impression
- persistent moderate to severe anemia -work-up to date without monoclonal protein on SPEP, normal B12 folate. ESR markedly elevated at 136.
-BOBBY + IgG +1, complement negative, elution negative, no antibodies detected -unclear clinical significance with no other labs consistent with hemolysis
- osteomyelitis s/p toe amputation
- diabetes
-reactive thrombocytosis
Plan
Plan
- pt has had persistent anemia in the setting of osteomyelitis requiring multiple hospitalizations, abx and surgical interventions.
- IS mild low with inappropriately normal ferritin in setting of inflammation. this supports likely some element of WILBER however would hold off on IV iron with active infection. Continue PO iron supplement for now.
- check stool hemoccult. although I suspect anemia more related to chronic illness/inflammation if stool hemoccult positive recommend GI evaluation to rule out occult GI losses contributing to anemia.
- CBC daily. transfuse for hgb < 7.0 g/dl.
Subjective/Objective
Subjective
BM yesterday, no occult stool done
Tmax 100.2F
using Tylenol and hydromorphone prn pain
denies bleeding
Vital Signs:
Vital Signs
Temp Pulse Resp BP Pulse Ox
97.8 F 79 16 136/72 97
04/19/25 07:25 04/19/25 07:25 04/19/25 07:25 04/19/25 07:25 04/19/25 07:25
Lab Results:
Laboratory Data
WBC 11.7 10^3/uL (4.8-10.8) H 04/18/25 07:04
Hgb 8.2 g/dL (13.0-18.0) L 04/18/25 07:04
Plt Count 626 10^3/uL (130-400) H 04/18/25 07:04
PT 13.7 Sec (11.4-14.6) 04/17/25 06:33
INR 1.02 04/17/25 06:33
APTT 33.8 Sec (23.4-35.0) 04/17/25 06:33
eGFR > 60.00 04/18/25 15:12
Physical Exam
General: Well Developed, Well Nourished, No Apparent Distress and Obese
HEENT: Negative Jaundice
Cardiology: Normal Sinus Rhythm
Pulmonary: Clear
Extremities: Other (s/p RLE BKA. stump without bleeding, healed. LLE foot dressing dry.)
Neurology: Non Focal
Hematologic / Lymphatic: No Petechiae
[2025-04-19 08:52] LABS: Hematocrit 25.1 % (39.0-52.0); Hemoglobin 7.9 g/dL (13.0-18.0); Mean Corp Hgb Conc. 31.5 g/dL (33.0-37.0); Mean Corpuscular Volume 90.0 fL (80.0-94.0); Platelet Count 677 10^3/uL (130-400); Red Cell Dist. Width 15.7 % (11.5-14.5)
[2025-04-19 09:22] LABS: ALT (SGPT) 10 U/L (0-50); AST (SGOT) 11 U/L (17-59); Albumin 3.1 g/dl (3.5-5.0); Alkaline Phosphatase 79 U/L (38-126); Blood Urea Nitrogen 20 mg/dl (9-20); Calcium 8.4 mg/dl (8.4-10.2); Carbon Dioxide 28 mmol/L (22-30); Chloride 105 mmol/L (98-107); Estimated Creatinine Clearance 114 ml/min; Glucose 153 mg/dl (70-99); Potassium 5.0 mmol/L (3.5-5.1); Sodium 140 mmol/L (135-145); Total Protein 6.5 g/dl (6.3-8.2); eGFR > 60.00
[2025-04-19] MEDS: NOVOLOG FLEXPEN-LOW RESISTANCE 1 UNITS SC ×2 (09:34→12:41)
[2025-04-19] MEDS: LANTUS 0.25 UNITS SC (09:35)
[2025-04-19] MEDS: NOVOLOG FLEXPEN 10 UNITS SC ×3 (09:35→17:50)
[2025-04-19] MEDS: FEOSOL 325 MG PO ×2 (09:38→21:28)
[2025-04-19] MEDS: NEURONTIN 300 MG PO ×3 (09:38→21:28)
[2025-04-19] MEDS: COREG 25 MG PO ×2 (09:38→21:28)
[2025-04-19] MEDS: RANEXA EXTENDED RELEASE 1000 MG PO ×2 (09:38→21:28)
[2025-04-19] MEDS: CYMBALTA DELAYED RELEASE 30 MG PO (09:39)
[2025-04-19] MEDS: IMDUR (EXTENDED RELEASE) 60 MG PO (09:39)
[2025-04-19] MEDS: PROTONIX 40 MG PO (09:39)
[2025-04-19] MEDS: DEMADEX 40 MG PO (09:42)
--- NOTE | 2025-04-19 10:16 | W.PN.HOSP.TC ---
Addendum entered and electronically signed by Min Collins MD 04/19/25 17:22:
I saw and evaluated the patient. I reviewed the resident�s note and agree with findings and plan as documented in the resident�s note. Plan formulated together
Patient denies any melena he has loose stools. If continues to have loose stools and elevated white count consider checking C. difficile
Still awaiting bone pathology
If it is positive patient amenable for BKA
Original Note:
Today's Communication/Plan
-
Awaiting bone pathology results from left foot metatarsal
Depending on pathology results we will fine-tune antibiotics for discharge
Continue current antibiotics
Torsemide resumed
Assessment / Plan
Assessment / Plan
HPI: 29-year-old male with PMHx significant for insulin-dependent type 1 diabetes mellitus, CIDP, Hypertension, GERD, CKD stage IIIA, history of osteomyelitis and TMA is admitted to the hospital for evaluation and management of acute blood loss
anemia from TMA wound dehiscence.
Assessment/Plan:
-Left foot TMA site with wound dehiscence:
-History of left foot TMA on 03/08:
-Acute bleed: from site of L TMA and Heel Debridement (03/25 and 04/08)
-Acute blood Loss Anemia secondary to the above:
Vascular ultrasound showed no significant arterial stenosis on the left however Doppler waveforms suggest disease within the distal SFA/popliteal artery and infrapopliteal disease may also be present as per arterial studies. Multiple lymph nodes
were also seen in the left thigh which may be reactive.
Wound cultures grew MRSA, VRE
Blood cultures did not show any growth
Underwent ultrasound of the left lower extremity did not show any evidence of DVT
Iron supplementation continue
Continue monitoring hemoglobin daily and transfuse as needed to maintain hemoglobin greater than 7
Status postdebridement 03/25.
Pathology results came back which showed focal acute osteomyelitis and detached fragment of fibrino-purulent exudate
Patient underwent his open TMA revision and wound debridement on 04/04 -there was significant drainage postoperatively - pathology positive for acute and chronic osteomyelitis
Wound culture from 04/04 positive for Enterobacter Cloacae
Continue antibiotics as per ID recommendations
Podiatry recommends nonweightbearing to the left lower extremity and continued elevation of the extremity on 2-3 pillows
Continue Daptomycin (currently on day 21 on 04/14/2025)
Continue ceftazidime/avibactam 1250 mg (Day 9 on 04/14/25) as per infectious diseases recommendations
Patient's lab work on the morning of 04/07/2025 had a hemoglobin at 7.1 with a hematocrit of 20.7�repeat H&H ordered which was 6.7 - 1 PRBC ordered on 04/07/25
Podiatry has tentatively planned for revision surgery of the L foot after pathology returns from most recent debridement on 04/06/25
Patient had an episode of acute blood loss on 04/08/2025 where a large amount of blood was lost from his foot wound. 1 PRBC given on 04/08/25
Scheduled for OR with podiatry for debridement vs lisfranc disarticulation on 04/13/25 - procedure tolerated well
Patient's Hgb is 7.5 on 04/15/25 - will continue to follow - if <7 then will transfuse PRBCs
Patient received 1 unit of PRBCs on 04/16/2025
Continue Holding anticoagulants postoperatively - will resume near discharge date
Appreciate ID recommendations - likely to be discharged on oral abx after most recent wound culture and bone pathology is complete
Appreciate hematology recommendations -they are under the impression that the patient is suffering from some element of WILBER and recommended continuing with oral iron supplement.
We have initiated anemia workup with LDH at 171, haptoglobin pending, Positive Candie test, 1+ BOBBY IgG, stool heme test, and PT/PTT were within normal limits. Based on positive Candie test, consider drug-induced immune hemolytic anemia, delayed
hemolytic transfusion reaction, or cold agglutinin disease
Abdominal ultrasound found that the liver and spleen were within normal limits in size without hepatosplenomegaly. No ascites. Tiny gallstones without sonographic features of acute cholecystitis. No bile duct dilatation.
-Hyperkalemia: Resolved
Patient was hyperkalemic with postassium of 5.5 on 04/14/25
Lokelma given, Insulin adjusted to home dose.
Repeat potassium on 04/15/25 is 4.9 - within normal limits.
Potassium was 5.7 on 04/18/2025�Lokelma given�Will repeat with BMP
Torsemide has been resumed
-Itchy rash:
Continue IV Benadryl
-Diarrhea:
Check stool sample for C. difficile if loose stool continues
- Urinary retention:
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
Patient self caths
Castillo catheter has been discontinued. Patient will be able to self cath as he usually does this in the outpatient setting
- History of ASCVD
- Status post stent palcement
- Chest pain:
EKG/troponin negative for any acute process
ASA held
Plavix 75mg held
Statin held
Continue Ranolazine
Continue Carvedilol
Type 1 diabetes with Hyperglycemia and neuropathy: Monitoring
A1C = 8.1% in January. Hba1c on 03/21/25 was 6.9 indicating improvement in overall glycemic control
Diabetes BUREAU DIRECTOR consulted, recommendations appreciated
Lantus adjusted to 30 units, Aspart adjusted to 10 units at breakfast, lunch and dinner.
Continue gabapentin, continue duloxetine
-AMBER on CKD IIIa: Unresolved
Continue to monitoring creatinine, has been hovering around 1.4/1.5
Urine studies show pre-renal cause, likely from hypovolemic state
Continued elevated creatinine level at 1.6 on 04/04/2025
Continue monitoring BMP.
Torsemide resumed
IV fluid support
-GERD
Continue Pantoprazole
-Chronic inflammatory demyelinating polyneuropathy:
Continue current meds, will need to arrange for PLEX in outpatient setting once discharged
FULL CODE STATUS
Stress Ulcer Prophylaxis: Pantoprazole
DVT Prophylaxis: SCDs
Imaging:
-Left foot x-ray conducted on 03/21/2025:
Status post amputation at the level of the first through fifth proximal metatarsal bones.
No radiographic evidence for osteomyelitis.
- Bilateral lower extremity arterial ultrasound exam conducted on 03/23/2025:
1. Ankle-brachial indices and toe brachial indices could not be measured due to prior amputations.
2. No focal significant arterial stenosis demonstrated on the left side on duplex imaging. Spectral Doppler waveform analysis is suggestive of disease within the distal SFA/popliteal artery. Infrapopliteal disease may also be present.
3. Multiple lymph nodes are seen within the left thigh, which may be reactive.
-Peripheral vascular ultrasound of the left lower extremity conducted on 03/31/2025:
No evidence of DVT of the left lower extremity.
Procedures:
03/03/2025-initial amputation of left transmetatarsal
03/25/2025-debridement of infected left metatarsal amputation
04/04/2025-revision debridement of left heel wound with calcaneal biopsy.
Anticipated Discharge: > 48 hours
Subjective/Interval History
-
Date of Service: April 19, 2025
Met with patient at the bedside. Overall, he offers no new complaints or concerns. He hopes that his last operation was successful and that he will not need any further revisions or surgery moving forward. He is aware of the pathology results
that are pending. Patient denies any shortness of breath, chest tightness, or chest pain. The patient denies any nausea, vomiting, or diarrhea.
Objective Data
-
Labs:
Laboratory Results
04/19/25
08:11
WBC 11.6 H
Hgb 7.9 L
Hct 25.1 L
Plt Count 677 H
Sodium 140
Potassium 5.0
Chloride 105
Carbon Dioxide 28
BUN 20
Creatinine 1.2
Glucose 153 H
Calcium 8.4
Total Bilirubin 0.2
AST 11 L
ALT 10
Alkaline Phosphatase 79
Vital Signs:
Vital Signs
Temp Pulse Resp BP Pulse Ox
97.8 F 79 16 136/72 97
04/19/25 07:25 04/19/25 07:25 04/19/25 07:25 04/19/25 07:25 04/19/25 07:25
I&O
04/18/25 04/19/25 04/20/25
06:59 06:59 06:59
Intake Total 952 / 952
Output Total 3325 / 3325 3000 / 3000
Balance -3325 / -5 -2047 /
Review of Systems
-
History Source: Patient
Constitutional: Reports Fatigue
EENT: Reports No Symptoms Reported
Respiratory: Reports No Symptoms
Cardiac: Reports No Symptoms
Abdomen/GI: Reports No Symptoms
Breast: Reports No Symptoms
Musculoskeletal: Reports Joint Pain (Left foot) and Muscle Pain (Left foot)
Neuro: Reports No Symptoms
Endocrine: Reports No Symptoms
Physical Exam
-
General: Well Developed, Well Nourished, Comfortable, Conversant and Obese
HEENT: Normocephalic and Atraumatic
Respiratory: Clear to Auscultation and Non Labored Respirations; Negative Wheezes, Rales, Rhonchi or Crackles
Cardiac: Regular Rhythm and S1/S2; Negative Murmur, Calf Tenderness or Tachycardic
GI: Soft, Nontender, Nondistended and Normal Bowel Sounds; Negative Organomegaly
Genito-urinary: No Costovertebral Tender, Clear Urine and Castillo
Musculoskeletal: No Clubbing, No Cyanosis and Other (R BKA; left foot s/p Lisfranc Disarticulation; left foot wrapped in dressing, not bleeding at this time)
Skin: Warm and Dry; Negative Rash or Ulcers
Neuro: Awake, Alert, Oriented, AO x 3 and No Sensory Deficits
Psych: Calm
[2025-04-19 12:37] LABS: Glucose - Point of Care 181 mg/dl (70-99)
--- NOTE | 2025-04-19 12:51 | W.PN.ID1 ---
Date of Service
Date of Service: April 19, 2025
Today's Communication
Continue current abx's.
Assessment / Plan
# Osteomyelitis Left foot TMA site wound dehiscence with necrosis
# Leukocytosis waxes and wanes
# Allergies: PCN, cephalosporin, meropenem, Vancomycin; tolerated Avyzaz
# Incarcerated
- Blood cx's neg
- OR 03/25/25 s/p I+D, removal of necrotic bone at amp site, I+D heel wound to subcutaneous tisse; wound vac placed
OR cx Enterococcus (VRE) and MRSA.
03/25 Bone path: 2nd metatarsal focal acute osteo
- 04/04/25 s/p open TMA revision , heel wound debridement.
OR cx: Enterobacter cloacae - suspect MDR as previous isolate
04/04 Clearing fragment bone path: chronic osteo
- 04/13 s/p lisfranc disarticulation and heel wound debridement
OR cx Enterobacter
Bone pathology pending. If positive osteo, pt is amenable to BKA.
- Continue daptomycin (start date 03/25). Hold statin.
Follow CK qMonday
- Continue ceftazidime/avibactam (start date 04/06)
- No need to treat the yeast from foot.
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
Diabetes mellitus
CAD status post PCI
CHF
hx CKD3
Hypertension
Guillain-Potts� syndrome/CIDP, plasma exchange q 2 months
PAD status post right BKA
Left hallux and second toe osteomyelitis status post amputation and debridement of left heel ulcer January 21, 2025
Left foot TMA, I+D left heel wound and bone biopsy of heel (neg osteo) Mar 08, 2025 (path surgical cure)
Chief Complaint
-: Leukocytosis and Other (Foot wound)
Subjective / Review of Systems
No new complaints.
Vital Signs / Physical Exam
Vital Signs
Vital Signs
Temp Pulse Resp BP Pulse Ox
97.8 F 79 16 136/72 97
04/19/25 07:25 04/19/25 07:25 04/19/25 07:25 04/19/25 07:25 04/19/25 07:25
Physical Exam
Constitutional: No Acute Distress
Cardiovascular: Regular Rate and S1/S2
Pulmonary: Clear
Gastrointestinal: Soft, Non Tender, Non Distended and Normal Bowel Sounds
Skin: Negative Rash
Wound: Other (Left foot dressing dry)
Neurological: AO x 3
Objective Data
Lab Data
Lab Results
04/19/25 08:11
04/19/25 08:11
ESR Cancelled 04/17/25 10:48
PT 13.7 Sec (11.4-14.6) 04/17/25 06:33
INR 1.02 04/17/25 06:33
APTT 33.8 Sec (23.4-35.0) 04/17/25 06:33
Estimated Creat Clear 114 ml/min 04/19/25 08:11
Lactic Acid 0.8 mmol/L (0.7-2.0) 03/25/25 01:16
Total Bilirubin 0.2 mg/dl (0.2-1.3) 04/19/25 08:11
AST 11 U/L (17-59) L 04/19/25 08:11
ALT 10 U/L (0-50) 04/19/25 08:11
Alkaline Phosphatase 79 U/L (38-126) 04/19/25 08:11
Most recent labs reviewed.
Micro Results:
03/25/25 16:52 Fungal Culture - Preliminary
Foot - Left Yeast
04/13/25 16:07 Wound Culture - Final
Foot - Left Enterobacter cloacae
Gram Stain - Final
04/13/25 16:07 Anaerobic Culture - Final
Foot - Left NO ANAEROBES ISOLATED
04/04/25 16:30 Wound Culture - Final
Foot - Left Enterobacter cloacae
Gram Stain - Final
04/04/25 16:30 Anaerobic Culture - Final
Foot - Left NO ANAEROBES ISOLATED
03/31/25 10:51 Blood Culture - Final
Blood/Venous No Growth - Final Report
03/31/25 10:22 Blood Culture - Final
Blood/Venous No Growth - Final Report
03/25/25 09:33 Blood Culture - Final
Blood/Venous No Growth - Final Report
03/25/25 16:56 Wound Culture - Final
Foot - Left Staph aureus MRSA
Enterococcus faecalis - VRE
Gram Stain - Final
03/25/25 16:56 Anaerobic Culture - Final
Foot - Left NO ANAEROBES ISOLATED
03/25/25 16:52 Wound Culture - Final
Foot - Left Staph aureus MRSA
Enterococcus faecalis - VRE
Gram Stain - Final
03/25/25 16:52 Anaerobic Culture - Final
Foot - Left NO ANAEROBES ISOLATED
03/25/25 01:16 Blood Culture - Final
Blood/Venous No Growth - Final Report
03/27/25 10:35 Urine Culture - Final
Urine Anna albicans
03/24/25 12:51 Salmonella/Shigella Culture - Final
Feces/Stool No Salmonella, Shigella, Aeromonas or Plesiomonas species
isolated.
Campylobacter Culture - Final
No Campylobacter species isolated.
Shiga Toxin Test - Final
No E. coli Shiga Toxin 1 or 2 detected.
03/21/25 21:00 Blood Culture - Final
Blood/Venous No Growth - Final Report
03/21/25 21:00 Blood Culture - Final
Blood/Venous No Growth - Final Report
03/21/25 21:16 Wound Culture - Final
Foot - Left Enterococcus faecalis - VRE
Anna albicans
Gram Stain - Final
03/24/25 12:53 C. difficile GDH Antigen & Toxins - Final
Feces/Stool C. difficile antigen positive, toxin negative.
Clostridium difficile present, but toxin not detected.
Patient may be a carrier, colonized with nontoxinogenic
strain or the level of toxin in sample is below detection
limits. This information should be used in conjunction with
the patient's clinical history.
03/22/25 13:07 MRSA Screen - Final
Nose No Methicillin Resistant Staphylococcus aureus isolated.
[2025-04-19] MEDS: CUBICIN 16 MG IV (14:09)
[2025-04-19 15:25] VITALS: BP 126/72
[2025-04-19 17:14] LABS: Glucose - Point of Care 82 mg/dl (70-99)
[2025-04-19] MEDS: NOVOLOG FLEXPEN-LOW RESISTANCE SC (17:21)
[2025-04-19 21:21] LABS: Glucose - Point of Care 102 mg/dl (70-99)
[2025-04-19] MEDS: REMERON 30 MG PO (21:29)
[2025-04-19] MEDS: LANTUS 0.3 UNITS SC (21:35)
[2025-04-19] MEDS: FLUSH (NSS) 2 FLUSH IV (22:00)
[2025-04-19 23:24] VITALS: BP 127/71
[2025-04-20] MEDS: TYLENOL 1000 MG PO ×4 (00:51→17:27)
[2025-04-20] MEDS: BENADRYL 25 MG IV ×3 (02:49→20:19)
[2025-04-20] MEDS: FLUSH (NSS) 1 FLUSH IV ×2 (02:51→04:32)
[2025-04-20] MEDS: DILAUDID 0.25 MG IV ×3 (04:31→20:16)
[2025-04-20] MEDS: FLUSH (NSS) 2 FLUSH IV (05:46)
[2025-04-20 07:32] VITALS: BP 94/57
[2025-04-20 08:00] LABS: Glucose - Point of Care 122 mg/dl (70-99)
--- NOTE | 2025-04-20 08:24 | PN.DE.MGMTRT ---
Insulin Management
- -
04/20/2025: Diabetes Management Follow up
Patient admitted from [facility] 03/21 with c/o bleeding L heel wound. PMH type 1 diabetes, R BKA, L toe amputation, recent debridement L heel, Gu[place], CHF, HTN, CKD, IA, recent admission 01/21 and 03/05 s/p
transmetatarsal L amputation and debridement. Prior to admission was receiving Lantus 30 units BID with Humalog insulin ss AC. A1C on admission 6.9%, (improved from 8.1%). Cr 1.1, eGFR > 60 today.
Prior to incarceration was living in a retirement per patient he will return there.
Patient is awake, alert, resting in bed, offers no complaints, able to discuss diabetes care plan.
POD # 7 s/p Left Lisfranc disarticulation closed and L heel debridement, hgb 8.7, cr 1.3, eGFR > 60 today.
Will continue AM Lantus dose to 25 units and continue PM dose of 30 units. Cont AC NovoLog to 10 units.
Cont low corrective with meals. Will assess glucose trend for need to further adjust insulin today if necessary.
Discussed with nurse. Will cont to follow.
Diabetes History
- -
Type of Diabetes: 1
Pre-Admission Diabetes Regimen
04/19/25
08:11
Creatinine 1.2
Lab Results
Hemoglobin A1c 6.9 % (4.0-5.6) H 03/22/25 06:24
Insulin Pump Settings
IP Diabetes Regimen
04/19/25 04/19/25 04/19/25
08:11 08:37 12:36
Glucose 153 H
POC Glucose 172 H 181 H
04/19/25 04/19/25 04/20/25
17:13 21:19 07:59
Glucose
POC Glucose 82 102 H 122 H
Meal type: Breakfast
Amount consumed: 100%
Patient Education
[2025-04-20 08:29] LABS: Hematocrit 27.7 % (39.0-52.0); Hemoglobin 8.7 g/dL (13.0-18.0); Mean Corp Hgb Conc. 31.4 g/dL (33.0-37.0); Mean Corpuscular Volume 93.0 fL (80.0-94.0); Platelet Count 627 10^3/uL (130-400); Red Cell Dist. Width 15.6 % (11.5-14.5)
[2025-04-20 08:47] LABS: ALT (SGPT) < 10 U/L (0-50); AST (SGOT) 12 U/L (17-59); Albumin 3.1 g/dl (3.5-5.0); Alkaline Phosphatase 76 U/L (38-126); Blood Urea Nitrogen 22 mg/dl (9-20); Calcium 8.5 mg/dl (8.4-10.2); Carbon Dioxide 29 mmol/L (22-30); Chloride 107 mmol/L (98-107); Estimated Creatinine Clearance 105 ml/min; Glucose 99 mg/dl (70-99); Potassium 5.2 mmol/L (3.5-5.1); Sodium 141 mmol/L (135-145); Total Protein 6.4 g/dl (6.3-8.2); eGFR > 60.00
--- NOTE | 2025-04-20 08:59 | W.PN.HOSP.TC ---
Addendum entered and electronically signed by Min Collins MD 04/20/25 14:07:
29-year-old male recently admitted to [facility] on 03/05/2025 to 03/17/2025 for osteomyelitis of the left foot. He underwent amputation of the first 2 digits of the left foot on 01/21/2025. Return with wound dehiscence and ultimately
required TMA and heel debridement on 03/08/2025. Completed inpatient course of antibiotics on 03/16/2025. Reportedly he 'banged' his foot on the vehicle while leaving the hospital and returned on the same day for evaluation of the wound. Since then
he has had worsening of bleeding and oozing from the left foot with increased pain in the left foot. Previous notes and discharge summaries reviewed, suspecting that the patient was picking on his surgical wounds which led to the bleeding and
possible infection..
Echo 02/15/2025-normal LV size, wall thickness and systolic function. Right ventricular size and systolic function within normal limits. LA is normal. RA is normal.
Ultrasound of the abdomen-no hepatosplenomegaly
Patient is awake alert oriented
Cardiovascular system S1-S2 appreciated
Chest clear to auscultation
Abdomen soft and nontender
Right BKA stump is stable
Left TMA site bandaged
# Osteomyelitis of the left foot TMA site, wound dehiscence with necrosis
Went to the OR on 03/25/2025 for I&D, removal of necrotic bone and amputation site, heel wound debridement and wound VAC-cultures grew VRE and MRSA. Wound pathology showed acute osteomyelitis
Status post revision on 04/04/2025-open TMA revision , removal of nonviable bone and heel wound debridement down to subcutaneous tissue-cultures Enterobacter Cloacae. Pathology clearing fragment chronic osteomyelitis
04/13/2025-Status post left Lisfranc disarticulation, heel wound debridement, plantar flap. Cultures with Enterobacter. Biopsy pending
May need BKA if continues to have osteomyelitis/infection
Strict nonweightbearing
IV antibiotics-daptomycin started on 03/25/2025. Ceftazidime /Avibactam started on 04/06/2025
Infectious disease following
# Diabetes-hemoglobin G9i-zye reliable in the setting of anemia
Was on Lantus 30 units twice daily and NovoLog 10 units AC prior to arrival
25 units of Lantus am and and 30 U pm and 10 units of NovoLog AC with sliding scale with low blood sugars
# Mild hyperkalemia- Continue Torsamide.
# Acute blood loss anemia secondary to bleeding from left TMA and heel debridement on top of chronic anemia
No active bleeding at present but patient still is anemic
Check heme test stools, LDH and haptoglobin, PT PTT INR, Candie test
10 units of PRBCs transfused this admission
Candie test positive, no antibodies and complement negative therefore hemolysis not suspected.
Hematology evaluation appreciated
Heme chest stools -Heme neg
Aspirin and Plavix on hold
# Coronary disease with history of PCI-restart aspirin as soon as possible . Continue Imdur, Ranexa and Coreg. Holding statin as being on daptomycin
# Thrombocytosis-likely secondary to infection
# History of heart failure unknown type per chart. Normal EF now.
# Acute kidney injury-resolved
# Hypertension-continue Coreg
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 Continue duloxetine and gabapentin for pain
# Peripheral disease with history of right BKA
# Left hallux and second toe osteomyelitis with amputation and debridement of the left heel ulcer January 21, 2025
Left foot TMA I&D left heel wound and bone biopsy of the heel March 08, 2025-negative pathology for osteomyelitis
# Diabetic neuropathy-continue gabapentin and duloxetine
# Hyperlipidemia-holding statin being on daptomycin
# Chronic urinary retention/neurogenic bladder-self catheterizes
# GERD-continue PPI
# Anxiety and depression-on Remeron, duloxetine
# Hypoalbuminemia
# Gallstones
# DVT prophylaxis-SCDs
# Full code
D/W Podiatry
May need BKA
Original Note:
Today's Communication/Plan
-
Patient voiced desire to attempt left BKA. Will reach out to podiatry for futher evaluation and planning.
Assessment / Plan
Assessment / Plan
HPI: 29-year-old male with PMHx significant for insulin-dependent type 1 diabetes mellitus, CIDP, Hypertension, GERD, CKD stage IIIA, history of osteomyelitis and TMA is admitted to the hospital for evaluation and management of acute blood loss
anemia from TMA wound dehiscence.
Assessment/Plan:
-Left foot TMA site with wound dehiscence:
-History of left foot TMA on 03/08:
-Acute bleed: from site of L TMA and Heel Debridement (03/25 and 04/08)
-Acute blood Loss Anemia secondary to the above:
Vascular ultrasound showed no significant arterial stenosis on the left however Doppler waveforms suggest disease within the distal SFA/popliteal artery and infrapopliteal disease may also be present as per arterial studies. Multiple lymph nodes
were also seen in the left thigh which may be reactive.
Wound cultures grew MRSA, VRE
Blood cultures did not show any growth
Underwent ultrasound of the left lower extremity did not show any evidence of DVT
Iron supplementation continue
Continue monitoring hemoglobin daily and transfuse as needed to maintain hemoglobin greater than 7
Status postdebridement 03/25.
Pathology results came back which showed focal acute osteomyelitis and detached fragment of fibrino-purulent exudate
Patient underwent his open TMA revision and wound debridement on 04/04 -there was significant drainage postoperatively - pathology positive for acute and chronic osteomyelitis
Wound culture from 04/04 positive for Enterobacter Cloacae
Continue antibiotics as per ID recommendations
Podiatry recommends nonweightbearing to the left lower extremity and continued elevation of the extremity on 2-3 pillows
Continue Daptomycin (currently on day 21 on 04/14/2025)
Continue ceftazidime/avibactam 1250 mg (Day 9 on 04/14/25) as per infectious diseases recommendations
Patient's lab work on the morning of 04/07/2025 had a hemoglobin at 7.1 with a hematocrit of 20.7�repeat H&H ordered which was 6.7 - 1 PRBC ordered on 04/07/25
Podiatry has tentatively planned for revision surgery of the L foot after pathology returns from most recent debridement on 04/06/25
Patient had an episode of acute blood loss on 04/08/2025 where a large amount of blood was lost from his foot wound. 1 PRBC given on 04/08/25
Scheduled for OR with podiatry for debridement vs lisfranc disarticulation on 04/13/25 - procedure tolerated well
Patient's Hgb is 7.5 on 04/15/25 - will continue to follow - if <7 then will transfuse PRBCs
Patient received 1 unit of PRBCs on 04/16/2025
Continue Holding anticoagulants postoperatively - will resume near discharge date
Appreciate ID recommendations - likely to be discharged on oral abx after most recent wound culture and bone pathology is complete
Appreciate hematology recommendations -they are under the impression that the patient is suffering from some element of WILBER and recommended continuing with oral iron supplement.
We have initiated anemia workup with LDH at 171, haptoglobin pending, Positive Candie test, 1+ BOBBY IgG, stool heme test, and PT/PTT were within normal limits. Based on positive Candie test, consider drug-induced immune hemolytic anemia, delayed
hemolytic transfusion reaction, or cold agglutinin disease
Abdominal ultrasound found that the liver and spleen were within normal limits in size without hepatosplenomegaly. No ascites. Tiny gallstones without sonographic features of acute cholecystitis. No bile duct dilatation.
-Hyperkalemia: Resolved
Patient was hyperkalemic with postassium of 5.5 on 04/14/25
Lokelma given, Insulin adjusted to home dose.
Repeat potassium on 04/15/25 is 4.9 - within normal limits.
Potassium was 5.7 on 04/18/2025�Lokelma given�Will repeat with BMP
Torsemide has been resumed
-Itchy rash:
Continue IV Benadryl
-Diarrhea:
Check stool sample for C. difficile if loose stool continues
- Urinary retention:
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
Patient self caths
Castillo catheter has been discontinued. Patient will be able to self cath as he usually does this in the outpatient setting
- History of ASCVD
- Status post stent palcement
- Chest pain:
EKG/troponin negative for any acute process
ASA held
Plavix 75mg held
Statin held
Continue Ranolazine
Continue Carvedilol
Type 1 diabetes with Hyperglycemia and neuropathy: Monitoring
A1C = 8.1% in January. Hba1c on 03/21/25 was 6.9 indicating improvement in overall glycemic control
Diabetes [employer] consulted, recommendations appreciated
Lantus adjusted to 30 units, Aspart adjusted to 10 units at breakfast, lunch and dinner.
Continue gabapentin, continue duloxetine
-AMBER on CKD IIIa: Unresolved
Continue to monitoring creatinine, has been hovering around 1.4/1.5
Urine studies show pre-renal cause, likely from hypovolemic state
Continued elevated creatinine level at 1.6 on 04/04/2025
Continue monitoring BMP.
Torsemide resumed
IV fluid support
-GERD
Continue Pantoprazole
-Chronic inflammatory demyelinating polyneuropathy:
Continue current meds, will need to arrange for PLEX in outpatient setting once discharged
FULL CODE STATUS
Stress Ulcer Prophylaxis: Pantoprazole
DVT Prophylaxis: SCDs
Imaging:
-Left foot x-ray conducted on 03/21/2025:
Status post amputation at the level of the first through fifth proximal metatarsal bones.
No radiographic evidence for osteomyelitis.
- Bilateral lower extremity arterial ultrasound exam conducted on 03/23/2025:
1. Ankle-brachial indices and toe brachial indices could not be measured due to prior amputations.
2. No focal significant arterial stenosis demonstrated on the left side on duplex imaging. Spectral Doppler waveform analysis is suggestive of disease within the distal SFA/popliteal artery. Infrapopliteal disease may also be present.
3. Multiple lymph nodes are seen within the left thigh, which may be reactive.
-Peripheral vascular ultrasound of the left lower extremity conducted on 03/31/2025:
No evidence of DVT of the left lower extremity.
Procedures:
03/03/2025-initial amputation of left transmetatarsal
03/25/2025-debridement of infected left metatarsal amputation
04/04/2025-revision debridement of left heel wound with calcaneal biopsy.
Anticipated Discharge: > 48 hours
Subjective/Interval History
-
Date of Service: April 20, 2025
Met with patient at the bedside. He states that he has decided to opt for a BKA of the left lower limb. Discussed the pros and cons of the potential procedure. He states that his reasoning is rooted in the fact that he worries that further
revisions may result in him losing more of the limb possibly and further making future prosthesis adaptation more difficult for him.
Objective Data
-
Labs:
Laboratory Results
04/20/25
06:58
WBC 10.2
Hgb 8.7 L
Hct 27.7 L
Plt Count 627 H
Sodium 141
Potassium 5.2 H
Chloride 107
Carbon Dioxide 29
BUN 22 H
Creatinine 1.3
Glucose 99
Calcium 8.5
Total Bilirubin 0.2
AST 12 L
ALT < 10
Alkaline Phosphatase 76
Vital Signs:
Vital Signs
Temp Pulse Resp BP Pulse Ox
98.0 F 74 16 94/57 97
04/20/25 07:32 04/20/25 07:32 04/20/25 07:32 04/20/25 07:32 04/20/25 07:32
I&O
04/19/25 04/20/25 04/21/25
06:59 06:59 06:59
Intake Total 952 / 952 2043
Output Total 3000 / 3000 0 / 220
Balance -2047 / -8 -156 / -156
Review of Systems
-
History Source: Patient
Constitutional: Reports Fatigue
EENT: Reports No Symptoms Reported
Respiratory: Reports No Symptoms
Cardiac: Reports No Symptoms
Abdomen/GI: Reports No Symptoms
Breast: Reports No Symptoms
Musculoskeletal: Reports Joint Pain (Left foot) and Muscle Pain (Left foot)
Neuro: Reports No Symptoms
Endocrine: Reports No Symptoms
Physical Exam
-
General: Well Developed, Well Nourished, Comfortable, Conversant and Obese
HEENT: Normocephalic and Atraumatic
Respiratory: Clear to Auscultation and Non Labored Respirations; Negative Wheezes, Rales, Rhonchi or Crackles
Cardiac: Regular Rhythm and S1/S2; Negative Murmur, Calf Tenderness or Tachycardic
GI: Soft, Nontender, Nondistended and Normal Bowel Sounds; Negative Organomegaly
Genito-urinary: No Costovertebral Tender, Clear Urine and Castillo
Musculoskeletal: No Clubbing, No Cyanosis and Other (R BKA; left foot s/p Lisfranc Disarticulation; left foot wrapped in dressing, not bleeding at this time)
Skin: Warm and Dry; Negative Rash or Ulcers
Neuro: Awake, Alert, Oriented, AO x 3 and No Sensory Deficits
Psych: Calm
[2025-04-20] MEDS: NOVOLOG FLEXPEN-LOW RESISTANCE SC ×3 (09:23→17:24)
[2025-04-20] MEDS: DEMADEX 40 MG PO (09:53)
[2025-04-20] MEDS: PROTONIX 40 MG PO (09:53)
[2025-04-20] MEDS: FEOSOL 325 MG PO ×2 (09:53→20:04)
[2025-04-20] MEDS: NEURONTIN 300 MG PO ×3 (09:53→22:07)
[2025-04-20] MEDS: COREG 25 MG PO ×2 (09:55→20:05)
[2025-04-20] MEDS: CYMBALTA DELAYED RELEASE 30 MG PO (09:55)
[2025-04-20] MEDS: RANEXA EXTENDED RELEASE 1000 MG PO ×2 (09:55→20:04)
[2025-04-20] MEDS: LANTUS 0.25 UNITS SC (09:56)
[2025-04-20] MEDS: IMDUR (EXTENDED RELEASE) 60 MG PO (09:56)
[2025-04-20] MEDS: LOKELMA 5 GRAM PO (09:56)
[2025-04-20] MEDS: NOVOLOG FLEXPEN 10 UNITS SC ×2 (09:56→12:50)
[2025-04-20 12:07] LABS: Glucose - Point of Care 94 mg/dl (70-99)
--- NOTE | 2025-04-20 13:38 | W.PN.ID1 ---
Date of Service
Date of Service: April 20, 2025
Today's Communication
BKA per podiatry.
Contnue abx's.
Assessment / Plan
# Osteomyelitis Left foot TMA site wound dehiscence with necrosis
# Leukocytosis waxes and wanes
# Allergies: PCN, cephalosporin, meropenem, Vancomycin; tolerated Avyzaz
# Incarcerated
- Blood cx's neg
- OR 03/25/25 s/p I+D, removal of necrotic bone at amp site, I+D heel wound to subcutaneous tisse; wound vac placed
OR cx Enterococcus (VRE) and MRSA.
03/25 Bone path: 2nd metatarsal focal acute osteo
- 04/04/25 s/p open TMA revision , heel wound debridement.
OR cx: Enterobacter cloacae - suspect MDR as previous isolate
04/04 Clearing fragment bone path: chronic osteo
- 04/13 s/p lisfranc disarticulation and heel wound debridement
OR cx Enterobacter
04/13 Bone pathology focal chronic osteomyelitis
- Informed podiatry of bone path still with osteo.
Will likely need BKA per Podiatry. Pt amenable to procedure.
- Continue daptomycin (start date 03/25). Hold statin.
Follow CK qMonday
- Continue ceftazidime/avibactam (start date 04/06)
Conditions RESISTANCE BRAZER
Diabetes mellitus
CAD status post PCI
CHF
hx CKD3
Hypertension
Guillain-Potts� syndrome/CIDP, plasma exchange q 2 months
PAD status post right BKA
Left hallux and second toe osteomyelitis status post amputation and debridement of left heel ulcer January 21, 2025
Left foot TMA, I+D left heel wound and bone biopsy of heel (neg osteo) Mar 08, 2025 (path surgical cure)
Chief Complaint
-: Other (Foot wound)
Subjective / Review of Systems
No new complaints.
Vital Signs / Physical Exam
Vital Signs
Vital Signs
Temp Pulse Resp BP Pulse Ox
98.0 F 74 16 94/57 97
04/20/25 07:32 04/20/25 07:32 04/20/25 07:32 04/20/25 07:32 04/20/25 07:32
Physical Exam
Constitutional: No Acute Distress
Cardiovascular: Regular Rate and S1/S2
Pulmonary: Clear
Gastrointestinal: Soft, Non Tender, Non Distended and Normal Bowel Sounds
Skin: Negative Rash
Wound: Other (Left foot dressing dry)
Neurological: AO x 3
Objective Data
Lab Data
Lab Results
04/20/25 06:58
04/20/25 06:58
ESR Cancelled 04/17/25 10:48
PT 13.7 Sec (11.4-14.6) 04/17/25 06:33
INR 1.02 04/17/25 06:33
APTT 33.8 Sec (23.4-35.0) 04/17/25 06:33
Estimated Creat Clear 105 ml/min 04/20/25 06:58
Lactic Acid 0.8 mmol/L (0.7-2.0) 03/25/25 01:16
Total Bilirubin 0.2 mg/dl (0.2-1.3) 04/20/25 06:58
AST 12 U/L (17-59) L 04/20/25 06:58
ALT < 10 U/L (0-50) 04/20/25 06:58
Alkaline Phosphatase 76 U/L (38-126) 04/20/25 06:58
Most recent labs reviewed.
Micro Results:
03/25/25 16:52 Fungal Culture - Preliminary
Foot - Left Anna albicans
04/13/25 16:07 Wound Culture - Final
Foot - Left Enterobacter cloacae
Gram Stain - Final
04/13/25 16:07 Anaerobic Culture - Final
Foot - Left NO ANAEROBES ISOLATED
04/04/25 16:30 Wound Culture - Final
Foot - Left Enterobacter cloacae
Gram Stain - Final
04/04/25 16:30 Anaerobic Culture - Final
Foot - Left NO ANAEROBES ISOLATED
03/31/25 10:51 Blood Culture - Final
Blood/Venous No Growth - Final Report
03/31/25 10:22 Blood Culture - Final
Blood/Venous No Growth - Final Report
03/25/25 09:33 Blood Culture - Final
Blood/Venous No Growth - Final Report
03/25/25 16:56 Wound Culture - Final
Foot - Left Staph aureus MRSA
Enterococcus faecalis - VRE
Gram Stain - Final
03/25/25 16:56 Anaerobic Culture - Final
Foot - Left NO ANAEROBES ISOLATED
03/25/25 16:52 Wound Culture - Final
Foot - Left Staph aureus MRSA
Enterococcus faecalis - VRE
Gram Stain - Final
03/25/25 16:52 Anaerobic Culture - Final
Foot - Left NO ANAEROBES ISOLATED
03/25/25 01:16 Blood Culture - Final
Blood/Venous No Growth - Final Report
03/27/25 10:35 Urine Culture - Final
Urine Anna albicans
03/24/25 12:51 Salmonella/Shigella Culture - Final
Feces/Stool No Salmonella, Shigella, Aeromonas or Plesiomonas species
isolated.
Campylobacter Culture - Final
No Campylobacter species isolated.
Shiga Toxin Test - Final
No E. coli Shiga Toxin 1 or 2 detected.
03/21/25 21:00 Blood Culture - Final
Blood/Venous No Growth - Final Report
03/21/25 21:00 Blood Culture - Final
Blood/Venous No Growth - Final Report
03/21/25 21:16 Wound Culture - Final
Foot - Left Enterococcus faecalis - VRE
Anna albicans
Gram Stain - Final
03/24/25 12:53 C. difficile GDH Antigen & Toxins - Final
Feces/Stool C. difficile antigen positive, toxin negative.
Clostridium difficile present, but toxin not detected.
Patient may be a carrier, colonized with nontoxinogenic
strain or the level of toxin in sample is below detection
limits. This information should be used in conjunction with
the patient's clinical history.
03/22/25 13:07 MRSA Screen - Final
Nose No Methicillin Resistant Staphylococcus aureus isolated.
[2025-04-20] MEDS: CUBICIN 16 MG IV (13:42)
--- NOTE | 2025-04-20 13:45 | CM ---
Chart reviewed. Care ongoing.
Cont IV abx, may can transition to oral
Per chart, patient interested in left BKA. Podiatry to evaluate
[facility]
Report: [phone]

Plan: [facility]
[2025-04-20 15:09] VITALS: BP 132/81
[2025-04-20 15:41] VITALS: BP 124/74
--- NOTE | 2025-04-20 16:32 | W.PN.SURGUPD ---
Surgical Update
Surgical Update
29 yo M s/p L Lisfranc disarticulation
-Patient seen and evaluated at bedside
-Pathology shows chronic OM and post-washout cultures still positive
-Had extensive conversation about continued limb salvage efforts vs proximal amputation
-Given persistent infection despite numerous revision/washout attempts, recommed proximal amputation
-Patient understands the risks of spreading infection, loss of life, etc
-Will discuss with vascular surgery
[2025-04-20 17:09] LABS: Glucose - Point of Care 56 mg/dl (70-99)
[2025-04-20 17:30] LABS: Glucose - Point of Care 56 mg/dl (70-99)
[2025-04-20 17:35] LABS: Glucose - Point of Care 55 mg/dl (70-99)
[2025-04-20 17:58] LABS: Glucose - Point of Care 68 mg/dl (70-99)
[2025-04-20] MEDS: DEXTROSE 50% SYRINGE 12.5 GRAMS IV (18:05)
[2025-04-20] MEDS: NOVOLOG FLEXPEN SC (18:05)
[2025-04-20 18:31] LABS: Glucose - Point of Care 120 mg/dl (70-99)
[2025-04-20 21:23] LABS: Glucose - Point of Care 163 mg/dl (70-99)
[2025-04-20] MEDS: LANTUS 0.3 UNITS SC (22:07)
[2025-04-20] MEDS: REMERON 30 MG PO (22:07)
[2025-04-20 23:17] VITALS: BP 95/45
[2025-04-21] VITALS (14 sets, daily range): BP systolic 106–160; BP diastolic 62–99
[2025-04-21] MEDS: TYLENOL 1000 MG PO ×4 (01:12→18:45)
[2025-04-21] MEDS: DILAUDID 0.25 MG IV ×2 (02:16→08:50)
[2025-04-21 03:13] LABS: Glucose - Point of Care 74 mg/dl (70-99)
[2025-04-21] MEDS: DEXTROSE 50% SYRINGE 12.5 GRAMS IV (03:41)
--- NOTE | 2025-04-21 06:22 | PTCARENOTE ---
Pt refused CHG wipes in preparation for possible OR per report for BKA. Pt said 'there is absolutely no possibility of me going today.' Pt continued refusal. RN provided education.
[2025-04-21 06:32] LABS: Glucose - Point of Care 92 mg/dl (70-99)
[2025-04-21] MEDS: NOVOLOG FLEXPEN SC (07:47)
[2025-04-21] MEDS: NOVOLOG FLEXPEN-LOW RESISTANCE SC (07:47)
--- NOTE | 2025-04-21 08:16 | PN.DE.MGMTRT ---
Insulin Management
- -
04/21/2025: Diabetes Management Follow up
Patient admitted from [facility] 03/21 with c/o bleeding L heel wound. PMH type 1 diabetes, R BKA, L toe amputation, recent debridement L heel, [place], CHF, HTN, CKD, [place], recent admission 01/21 and 03/05 s/p
transmetatarsal L amputation and debridement. Prior to admission was receiving Lantus 30 units BID with Humalog insulin ss AC. A1C on admission 6.9%, (improved from 8.1%). Cr 1.1, eGFR > 60 today.
Prior to incarceration was living in a alf per patient he will return there.
Patient is off the unit to the OR for surgery.
POD # 8 s/p Left Lisfranc disarticulation closed and L heel debridement, hgb 8.7, cr 1.3, eGFR > 60 today. Patient for amputation of L foot 04/21, currently NPO.
Glucose yesterday trended down to 56 pre dinner, patient did not lunch. Fasting glucose today 92.
AM lantus and novolog HELD this AM. To resume ac novolog and hs lantus.
Will continue AM Lantus dose 25 units and PM dose of 30 units. Cont AC NovoLog to 10 units. AC novolog to be held due to NPO status today.
Cont low corrective with meals. Will assess glucose trend for need to further adjust insulin today if necessary.
Discussed with nurse. Will cont to follow.
Diabetes History
- -
Type of Diabetes: 1
Pre-Admission Diabetes Regimen
04/20/25
06:58
Creatinine 1.3
Lab Results
Hemoglobin A1c 6.9 % (4.0-5.6) H 03/22/25 06:24
Insulin Pump Settings
IP Diabetes Regimen
04/20/25 04/20/25 04/20/25
06:58 12:05 17:08
Glucose 99
POC Glucose 94 56 L
04/20/25 04/20/25 04/20/25
17:29 17:33 17:56
Glucose
POC Glucose 56 L 55 L* 68 L
04/20/25 04/20/25 04/21/25
18:30 21:21 03:11
Glucose
POC Glucose 120 H 163 H 74
04/21/25
06:30
Glucose
POC Glucose 92
Meal type: Breakfast
Amount consumed: 100%
Patient Education
[2025-04-21 08:45] LABS: Hematocrit 27.5 % (39.0-52.0); Hemoglobin 8.5 g/dL (13.0-18.0); Mean Corp Hgb Conc. 30.9 g/dL (33.0-37.0); Mean Corpuscular Volume 91.4 fL (80.0-94.0); Platelet Count 620 10^3/uL (130-400); Red Cell Dist. Width 15.5 % (11.5-14.5)
--- NOTE | 2025-04-21 08:46 | CON.VAS ---
Addendum entered and electronically signed by Jose Paris MD 04/21/25 09:31:
Contacted by Dr. Montez to evaluate patient regarding nonsalvageable left lower extremity. Has failed multiple attempts at limb salvage. Persistent extensive osteomyelitis. Remainder of history as noted below. Patient is amenable to proceeding
with amputation. I discussed with him below the knee amputation versus [id number] amputation. Discussed risk/benefits of both alternatives. Discussed the benefit of above-knee amputation being the best chance of healing with least chance of
complications with wound issues or infection. However, discussed the advantage of below the knee amputation mainly being improved ability for ambulation. Given his young age, would favor preservation of limb as much as possible with the hope of
being able to ambulate again (although he will be a bilateral amputee at that point). Procedure discussed. Discussed anticipated outcomes/recovery process. Risks include but limited to bleeding, infections, wound complications, need for revisions
or revision to [id number] amputation also discussed. He understands all wishes to proceed. Plan left BKA today.
Original Note:
Consultation
Consultation Request
Date/Time Consultation Performed: 04/21/2025 7:30 AM
Performing Provider: [place]
Reason for Consultation: Nonhealing left lower extremity wound
Medical History
-
Chief Complaint: Nonhealing left lower extremity wound
History of Present Illness:
29-year-old male with past medical history significant for CAD with 4 stents, type 1 diabetes, hypertension, heart failure, [place] Potts�, GERD, CKD 3, right BKA, status post left hallux and second digit amputation due to osteomyelitis on 01/21/2025
in hospital in [place]. Patient was seen by us last month while inpatient for blood loss anemia due to oozing from the left TMA site. Patient was readmitted on 03/23/2025 from [facility] for left foot pain/bruising/chest
pain/hyperglycemia.
Vascular surgery consult for evaluation for left BKA due to nonhealing left foot wound with osteomyelitis. Patient seen at bedside this a.m. with Dr. Paris. Arterial duplex reviewed. Patient denies hardware in the left lower extremity.
Past Medical History
Past Medical History: Other (CAD with stenting, type 1 diabetes, hypertension, heart failure, [place] Potts�, GERD, CKD 3)
Past Surgical History: Other (Right BKA, left hallux and second digit amputation due to osteomyelitis, multiple debridements by podiatry for the left foot)
Social History
Tobacco: Former Smoker
Personal: Single
Living: Correction
Family History
Family History: Other (Factor V deficiency)
Allergies / Home Medications
Allergy/AdvReac Type Severity Reaction Status Date / Time
cefepime Allergy Itching, Verified 03/18/25 19:52
rash
ibuprofen Allergy Unknown Verified 03/18/25 19:52
meropenem Allergy Itching, Verified 03/18/25 19:52
rash
oxycodone Allergy Unknown Verified 03/18/25 19:52
Penicillins Allergy Unknown Verified 03/18/25 19:52
silver Allergy Hives Verified 03/18/25 19:52
silver nitrate Allergy Hives Verified 03/18/25 19:52
sweet potato Allergy Unknown Verified 03/18/25 19:52
tuna oil Allergy Unknown Verified 03/18/25 19:52
turkey Allergy Unknown Verified 03/18/25 19:52
vancomycin Allergy Itchy Rash Verified 03/28/25 08:47
�Medication �Instructions �Recorded �Confirmed �Type
aspirin 81 mg tablet,delayed 81 mg PO DAILY Blood Clot 02/02/25 03/23/25 History
release Prevention/Tx
atorvastatin 80 mg tablet 80 mg PO HS High Cholesterol 02/02/25 03/23/25 History
carvedilol 25 mg tablet 25 mg PO BID Heart Failure 02/02/25 03/23/25 History
insulin glargine 100 unit/mL (3 30 unit SC BID Diabetes 02/02/25 03/23/25 History
mL) subcutaneous pen (Lantus
Solostar U-100 Insulin)
isosorbide mononitrate 60 mg 60 mg PO DAILY Heart 02/02/25 03/23/25 History
tablet,extended release 24 hr Disease/Condition
pantoprazole 40 mg tablet,delayed 40 mg PO DAILY Gastrointestinal 02/02/25 03/23/25 History
release (Protonix) Issue
ranolazine 1,000 mg 1,000 mg PO BID Heart 02/02/25 03/23/25 History
tablet,extended release,12 hr Disease/Condition
duloxetine 30 mg capsule,delayed 30 mg PO DAILY Mental 02/07/25 03/23/25 History
release Health/Anxiety
gabapentin 300 mg capsule 300 mg PO TID NEUROPATHIC PAIN 02/07/25 03/23/25 History
insulin regular human 100 unit/mL 1 sliding scale dose SC AC Diabetes 02/07/25 03/23/25 History
injection solution (Humulin R
Regular U-100 Insulin)
docusate sodium 100 mg capsule 100 mg PO BID #30 caps 02/21/25 03/23/25 Rx
torsemide 20 mg tablet 40 mg PO DAILY Fluid 03/05/25 03/23/25 History
Retention/Swelling
insulin aspart U-100 100 unit/mL 10 unit (0.1 mL) [facility] #15 mL 03/18/25 03/23/25 Rx
(3 mL) subcutaneous pen
clopidogrel 75 mg tablet 75 mg PO DAILY Blood Clot 03/21/25 03/23/25 History
Prevention/Tx
collagenase clostridium histo. 250 1 applic topical HS Skin Issues 03/21/25 03/23/25 History
unit/gram topical ointment (Santyl)
sodium hypochlorite 0.5 % solution 1 applic topical BID WOUND 03/21/25 03/23/25 History
(Dakin's Solution)
mirtazapine 30 mg tablet 30 mg PO HS Mental Health/Anxiety 03/23/25 03/23/25 History
Review of Systems
-
History Source: Patient
Constitutional: Reports No Symptoms
EENT: Reports No Symptoms
Respiratory: Reports No Symptoms
Cardiac: Reports No Symptoms
Vascular: Denies Leg Pain / Claudication
Abdomen/GI: Reports No Symptoms
: Reports No Symptoms
Musculoskeletal: Reports Edema
Skin: Reports Other (Nonhealing left foot)
Neurological: Reports No Symptoms
Physical Exam
Vital Signs
Temp Pulse Resp BP Pulse Ox
97.8 F 83 16 116/63 99
04/21/25 07:40 04/21/25 07:40 04/21/25 07:40 04/21/25 07:40 04/21/25 07:40
Lab Results
04/21/25 07:36
Troponin I Cancelled 03/22/25 14:04
Physical Exam
General: No Apparent Distress
HEENT: Normocephalic and Atraumatic
Respiratory: Non Labored Respirations
Cardiac: Negative JVD
GI: Soft
Musculoskeletal: No Clubbing, No Cyanosis and Edema
Skin: Warm and Other (Nonhealing left foot wrapped in Hemal)
Neuro: Awake, Alert and Oriented
Psych: Calm
Pulses: Left Popliteal: +2
Assessment / Plan
-
29-year-old male with nonhealing left foot wound/osteomyelitis
Plan:
N.p.o.
OR today for left BKA
Trapeze bed
Data Reviewed
-
Labs: Labs Reviewed by me
[2025-04-21] MEDS: BENADRYL 25 MG IV ×2 (08:51→18:07)
[2025-04-21] MEDS: CYMBALTA DELAYED RELEASE 30 MG PO (08:52)
[2025-04-21] MEDS: FEOSOL 325 MG PO ×2 (08:52→20:41)
[2025-04-21] MEDS: RANEXA EXTENDED RELEASE 1000 MG PO ×2 (08:52→20:41)
[2025-04-21] MEDS: IMDUR (EXTENDED RELEASE) 60 MG PO (08:52)
[2025-04-21] MEDS: COREG 25 MG PO ×2 (08:52→20:41)
[2025-04-21] MEDS: PROTONIX 40 MG PO (08:52)
[2025-04-21] MEDS: NEURONTIN 300 MG PO ×3 (08:52→21:54)
[2025-04-21 09:40] LABS: ALT (SGPT) 10 U/L (0-50); AST (SGOT) 13 U/L (17-59); Albumin 3.2 g/dl (3.5-5.0); Alkaline Phosphatase 71 U/L (38-126); Blood Urea Nitrogen 27 mg/dl (9-20); Calcium 8.4 mg/dl (8.4-10.2); Carbon Dioxide 31 mmol/L (22-30); Chloride 104 mmol/L (98-107); Estimated Creatinine Clearance 98 ml/min; Glucose 94 mg/dl (70-99); Potassium 4.9 mmol/L (3.5-5.1); Sodium 141 mmol/L (135-145); Total Protein 6.5 g/dl (6.3-8.2); eGFR > 60.00
[2025-04-21] MEDS: PERIDEX 0.12% ORAL RINSE 15 ML PO (09:54)
[2025-04-21] MEDS: BACTROBAN 2% OINTMENT 1 APPLIC NASAL (09:57)
[2025-04-21] MEDS: DEMADEX 40 MG PO (09:57)
--- NOTE | 2025-04-21 10:10 | W.PN.HOSP.TC ---
Addendum entered and electronically signed by Min Collins MD 04/21/25 15:55:
Seen and examined the patient earlier today. Status post OR for BKA
Denies any chest pain or shortness of breath
EKG reviewed-no ischemia
Left foot bandaged
Right BKA stump with small wound
Cardiovascular system S1-S2 appreciated
Chest clear to auscultation
Abdomen soft and nontender
Continue postoperative care
Patient may eventually need revision of the right BKA as well to use prosthesis given protrusion of the bone
Restrict potassium in the diet
A dose of Lokelma
Hold torsemide given slightly elevated creatinine today
BMP in the morning
Hopefully antibiotics can be discontinued soon given surgical cure
Original Note:
Today's Communication/Plan
-
Most recent pathology from left foot metatarsal was positive for chronic osteomyelitis with bone remodeling
Patient scheduled for OR today for left BKA. Patient aware of the risks and benefits of the procedure.
Vascular surgery consulted for upcoming OR L BKA procedure
Assessment / Plan
Assessment / Plan
HPI: 29-year-old male with PMHx significant for insulin-dependent type 1 diabetes mellitus, CIDP, Hypertension, GERD, CKD stage IIIA, history of osteomyelitis and TMA is admitted to the hospital for evaluation and management of acute blood loss
anemia from TMA wound dehiscence.
Assessment/Plan:
-Left foot TMA site with wound dehiscence:
-History of left foot TMA on 03/08:
-Acute bleed: from site of L TMA and Heel Debridement (03/25 and 04/08)
-Acute blood Loss Anemia secondary to the above:
Vascular ultrasound showed no significant arterial stenosis on the left however Doppler waveforms suggest disease within the distal SFA/popliteal artery and infrapopliteal disease may also be present as per arterial studies. Multiple lymph nodes
were also seen in the left thigh which may be reactive.
Wound cultures grew MRSA, VRE
Blood cultures did not show any growth
Underwent ultrasound of the left lower extremity did not show any evidence of DVT
Iron supplementation continue
Continue monitoring hemoglobin daily and transfuse as needed to maintain hemoglobin greater than 7
Status postdebridement 03/25.
Pathology results came back which showed focal acute osteomyelitis and detached fragment of fibrino-purulent exudate
Patient underwent his open TMA revision and wound debridement on 04/04 -there was significant drainage postoperatively - pathology positive for acute and chronic osteomyelitis
Wound culture from 04/04 positive for Enterobacter Cloacae
Continue antibiotics as per ID recommendations
Podiatry recommends nonweightbearing to the left lower extremity and continued elevation of the extremity on 2-3 pillows
Continue Daptomycin (currently on day 21 on 04/14/2025)
Continue ceftazidime/avibactam 1250 mg (Day 9 on 04/14/25) as per infectious diseases recommendations
Patient's lab work on the morning of 04/07/2025 had a hemoglobin at 7.1 with a hematocrit of 20.7�repeat H&H ordered which was 6.7 - 1 PRBC ordered on 04/07/25
Podiatry has tentatively planned for revision surgery of the L foot after pathology returns from most recent debridement on 04/06/25
Patient had an episode of acute blood loss on 04/08/2025 where a large amount of blood was lost from his foot wound. 1 PRBC given on 04/08/25
Scheduled for OR with podiatry for debridement vs lisfranc disarticulation on 04/13/25 - procedure tolerated well
Patient's Hgb is 7.5 on 04/15/25 - will continue to follow - if <7 then will transfuse PRBCs
Patient received 1 unit of PRBCs on 04/16/2025
Continue Holding anticoagulants postoperatively - will resume near discharge date
Appreciate ID recommendations - likely to be discharged on oral abx
Appreciate hematology recommendations -they are under the impression that the patient is suffering from some element of WILBER and recommended continuing with oral iron supplement.
We have initiated anemia workup with LDH at 171, haptoglobin pending, Positive Candie test, 1+ BOBBY IgG, stool heme test, and PT/PTT were within normal limits. Based on positive Candie test, consider drug-induced immune hemolytic anemia, delayed
hemolytic transfusion reaction, or cold agglutinin disease
Abdominal ultrasound found that the liver and spleen were within normal limits in size without hepatosplenomegaly. No ascites. Tiny gallstones without sonographic features of acute cholecystitis. No bile duct dilatation.
Most recent pathology from left foot metatarsal was positive for chronic osteomyelitis with bone remodeling
Patient scheduled for OR today for left BKA. Patient aware of the risks and benefits of the procedure.
Vascular surgery consulted for upcoming OR L BKA procedure
-Hyperkalemia: Resolved
Patient was hyperkalemic with postassium of 5.5 on 04/14/25
Lokelma given, Insulin adjusted to home dose.
Repeat potassium on 04/15/25 is 4.9 - within normal limits.
Potassium was 5.7 on 04/18/2025�Lokelma given�Will repeat with BMP
Torsemide has been resumed
-Itchy rash:
Continue IV Benadryl
-Diarrhea:
Check stool sample for C. difficile if loose stool continues
- Urinary retention:
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
Patient self caths
Castillo catheter has been discontinued. Patient will be able to self cath as he usually does this in the outpatient setting
- History of ASCVD
- Status post stent palcement
- Chest pain:
EKG/troponin negative for any acute process
ASA held
Plavix 75mg held
Statin held
Continue Ranolazine
Continue Carvedilol
Type 1 diabetes with Hyperglycemia and neuropathy: Monitoring
A1C = 8.1% in January. Hba1c on 03/21/25 was 6.9 indicating improvement in overall glycemic control
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
Lantus adjusted to 30 units, Aspart adjusted to 10 units at breakfast, lunch and dinner.
Continue gabapentin, continue duloxetine
-AMBER on CKD IIIa: Unresolved
Continue to monitoring creatinine, has been hovering around 1.4/1.5
Urine studies show pre-renal cause, likely from hypovolemic state
Continued elevated creatinine level at 1.6 on 04/04/2025
Continue monitoring BMP.
Torsemide resumed
IV fluid support
-GERD
Continue Pantoprazole
-Chronic inflammatory demyelinating polyneuropathy:
Continue current meds, will need to arrange for PLEX in outpatient setting once discharged
FULL CODE STATUS
Stress Ulcer Prophylaxis: Pantoprazole
DVT Prophylaxis: SCDs
Imaging:
-Left foot x-ray conducted on 03/21/2025:
Status post amputation at the level of the first through fifth proximal metatarsal bones.
No radiographic evidence for osteomyelitis.
- Bilateral lower extremity arterial ultrasound exam conducted on 03/23/2025:
1. Ankle-brachial indices and toe brachial indices could not be measured due to prior amputations.
2. No focal significant arterial stenosis demonstrated on the left side on duplex imaging. Spectral Doppler waveform analysis is suggestive of disease within the distal SFA/popliteal artery. Infrapopliteal disease may also be present.
3. Multiple lymph nodes are seen within the left thigh, which may be reactive.
-Peripheral vascular ultrasound of the left lower extremity conducted on 03/31/2025:
No evidence of DVT of the left lower extremity.
Procedures:
03/03/2025-initial amputation of left transmetatarsal
03/25/2025-debridement of infected left metatarsal amputation
04/04/2025-revision debridement of left heel wound with calcaneal biopsy.
Anticipated Discharge: > 48 hours
Subjective/Interval History
-
Date of Service: April 21, 2025
Met with patient at the bedside. Patient smiling and appears to be happy that he will be undergoing his BKA procedure today. Patient is aware of the risks and benefits of the procedure. He states that he is a little bit worried about the recovery
process and his future outlook but is prepared to face those problems as they come. Patient denies any nausea vomiting or diarrhea. Patient denies any shortness of breath, chest tightness, or chest pain.
Objective Data
-
Labs:
Laboratory Results
04/21/25
07:36
WBC 9.8
Hgb 8.5 L
Hct 27.5 L
Plt Count 620 H
Sodium 141
Potassium 4.9
Chloride 104
Carbon Dioxide 31 H
BUN 27 H
Creatinine 1.4 H
Glucose 94
Calcium 8.4
Total Bilirubin 0.4
AST 13 L
ALT 10
Alkaline Phosphatase 71
Vital Signs:
Vital Signs
Temp Pulse Resp BP Pulse Ox
97.8 F 83 16 116/63 99
04/21/25 07:40 04/21/25 09:57 04/21/25 07:40 04/21/25 09:57 04/21/25 07:40
I&O
04/20/25 04/21/25 04/22/25
06:59 06:59 06:59
Intake Total 2043
Output Total 2200 / 2200 3500 / 3500
Balance -156 / -156 -3500 / -3500
Review of Systems
-
History Source: Patient
Constitutional: Reports Fatigue
EENT: Reports No Symptoms Reported
Respiratory: Reports No Symptoms
Cardiac: Reports No Symptoms
Abdomen/GI: Reports No Symptoms
Breast: Reports No Symptoms
Musculoskeletal: Reports Joint Pain (Left foot) and Muscle Pain (Left foot)
Neuro: Reports No Symptoms
Endocrine: Reports No Symptoms
Physical Exam
-
General: Well Developed, Well Nourished, Comfortable, Conversant and Obese
HEENT: Normocephalic and Atraumatic
Respiratory: Clear to Auscultation and Non Labored Respirations; Negative Wheezes, Rales, Rhonchi or Crackles
Cardiac: Regular Rhythm and S1/S2; Negative Murmur, Calf Tenderness or Tachycardic
GI: Soft, Nontender, Nondistended and Normal Bowel Sounds; Negative Organomegaly
Genito-urinary: No Costovertebral Tender, Clear Urine and Castillo
Musculoskeletal: No Clubbing, No Cyanosis and Other (R BKA; left foot s/p Lisfranc Disarticulation; left foot wrapped in dressing, not bleeding at this time)
Skin: Warm and Dry; Negative Rash or Ulcers
Neuro: Awake, Alert, Oriented, AO x 3 and No Sensory Deficits
Psych: Calm
--- NOTE | 2025-04-21 10:15 | W.PN.ID1 ---
Date of Service
Date of Service: April 21, 2025
Today's Communication
Continue abx's for another 24-48h
Assessment / Plan
# Osteomyelitis Left foot TMA site wound dehiscence with necrosis
# Leukocytosis waxes and wanes
# Allergies: PCN, cephalosporin, meropenem, Vancomycin; tolerated Avyzaz
# Incarcerated
- Blood cx's neg
- OR 03/25/25 s/p I+D, removal of necrotic bone at amp site, I+D heel wound to subcutaneous tisse; wound vac placed
OR cx Enterococcus (VRE) and MRSA.
03/25 Bone path: 2nd metatarsal focal acute osteo
- 04/04/25 s/p open TMA revision , heel wound debridement.
OR cx: Enterobacter cloacae - suspect MDR as previous isolate
04/04 Clearing fragment bone path: chronic osteo
- 04/13 s/p lisfranc disarticulation and heel wound debridement
OR cx Enterobacter
04/13 Bone pathology focal chronic osteomyelitis
- L BKA today per Vascular
- Continue daptomycin (start date 03/25) for another 24-48h
- Continue ceftazidime/avibactam (start date 04/06) for another 24-48h.
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
Diabetes mellitus
CAD status post PCI
CHF
hx CKD3
Hypertension
Guillain-Potts� syndrome/CIDP, plasma exchange q 2 months
PAD status post right BKA
Left hallux and second toe osteomyelitis status post amputation and debridement of left heel ulcer January 21, 2025
Left foot TMA, I+D left heel wound and bone biopsy of heel (neg osteo) Mar 08, 2025 (path surgical cure)
Chief Complaint
-: Other (Foot wound)
Subjective / Review of Systems
Enroute to OR for BKA
Vital Signs / Physical Exam
Vital Signs
Vital Signs
Temp Pulse Resp BP Pulse Ox
97.8 F 83 16 116/63 99
04/21/25 07:40 04/21/25 09:57 04/21/25 07:40 04/21/25 09:57 04/21/25 07:40
Physical Exam
Constitutional: No Acute Distress
Cardiovascular: Regular Rate and S1/S2
Pulmonary: Clear
Gastrointestinal: Soft, Non Tender, Non Distended and Normal Bowel Sounds
Skin: Negative Rash
Wound: Other (Left foot dressing dry)
Neurological: AO x 3
Objective Data
Lab Data
Lab Results
04/21/25 07:36
04/21/25 07:36
ESR Cancelled 04/17/25 10:48
PT 13.7 Sec (11.4-14.6) 04/17/25 06:33
INR 1.02 04/17/25 06:33
APTT 33.8 Sec (23.4-35.0) 04/17/25 06:33
Estimated Creat Clear 98 ml/min 04/21/25 07:36
Lactic Acid 0.8 mmol/L (0.7-2.0) 03/25/25 01:16
Total Bilirubin 0.4 mg/dl (0.2-1.3) 04/21/25 07:36
AST 13 U/L (17-59) L 04/21/25 07:36
ALT 10 U/L (0-50) 04/21/25 07:36
Alkaline Phosphatase 71 U/L (38-126) 04/21/25 07:36
Most recent labs reviewed.
Micro Results:
03/25/25 16:52 Fungal Culture - Preliminary
Foot - Left Anna albicans
04/13/25 16:07 Wound Culture - Final
Foot - Left Enterobacter cloacae
Gram Stain - Final
04/13/25 16:07 Anaerobic Culture - Final
Foot - Left NO ANAEROBES ISOLATED
04/04/25 16:30 Wound Culture - Final
Foot - Left Enterobacter cloacae
Gram Stain - Final
04/04/25 16:30 Anaerobic Culture - Final
Foot - Left NO ANAEROBES ISOLATED
03/31/25 10:51 Blood Culture - Final
Blood/Venous No Growth - Final Report
03/31/25 10:22 Blood Culture - Final
Blood/Venous No Growth - Final Report
03/25/25 09:33 Blood Culture - Final
Blood/Venous No Growth - Final Report
03/25/25 16:56 Wound Culture - Final
Foot - Left Staph aureus MRSA
Enterococcus faecalis - VRE
Gram Stain - Final
03/25/25 16:56 Anaerobic Culture - Final
Foot - Left NO ANAEROBES ISOLATED
03/25/25 16:52 Wound Culture - Final
Foot - Left Staph aureus MRSA
Enterococcus faecalis - VRE
Gram Stain - Final
03/25/25 16:52 Anaerobic Culture - Final
Foot - Left NO ANAEROBES ISOLATED
03/25/25 01:16 Blood Culture - Final
Blood/Venous No Growth - Final Report
03/27/25 10:35 Urine Culture - Final
Urine Anna albicans
03/24/25 12:51 Salmonella/Shigella Culture - Final
Feces/Stool No Salmonella, Shigella, Aeromonas or Plesiomonas species
isolated.
Campylobacter Culture - Final
No Campylobacter species isolated.
Shiga Toxin Test - Final
No E. coli Shiga Toxin 1 or 2 detected.
03/21/25 21:00 Blood Culture - Final
Blood/Venous No Growth - Final Report
03/21/25 21:00 Blood Culture - Final
Blood/Venous No Growth - Final Report
03/21/25 21:16 Wound Culture - Final
Foot - Left Enterococcus faecalis - VRE
Anna albicans
Gram Stain - Final
03/24/25 12:53 C. difficile GDH Antigen & Toxins - Final
Feces/Stool C. difficile antigen positive, toxin negative.
Clostridium difficile present, but toxin not detected.
Patient may be a carrier, colonized with nontoxinogenic
strain or the level of toxin in sample is below detection
limits. This information should be used in conjunction with
the patient's clinical history.
03/22/25 13:07 MRSA Screen - Final
Nose No Methicillin Resistant Staphylococcus aureus isolated.
--- NOTE | 2025-04-21 10:29 | W.SUR.PREOP ---
Pre-Operative Surgical Note
-
I have examined this patient prior to the performance of the scheduled procedure.
The patient's condition is unchanged from the time of the current History and
Physical and the patient is able to undergo the scheduled procedure.
--- NOTE | 2025-04-21 10:30 | PTCARENOTE ---
Pt seen pre-procedure, VSS. Lungs CTA, sat 99% on RA. Pt R wrist PIV flushed and patent. Pt seen by MD, consent obtained. Pt seen by anesthesia as well.
--- NOTE | 2025-04-21 10:32 | W.PN.UPDATE ---
Update Note
Progress Note Update
Vascular notes reviewed, pt for OR. Came to see pt , already went to OR.
Will see after procedure
[2025-04-21 10:51] LABS: Glucose - Point of Care 133 mg/dl (70-99)
--- NOTE | 2025-04-21 12:26 | W.SUR.POST ---
Surgical Immediate Post Op
Note
Pre Op Diagnosis: Nonhealing left lower extremity wound
Post Op Diagnosis: Nonhealing left lower extremity wound
Procedure Performed: Left lower extremity below-knee amputation
Primary Surgeon: Jose Paris M.D., MD
business support assistant: DONTE Marrero
Anesthesia: GETA
Estimated Blood Loss: 50ml
Fluids: See anesthesia flowsheet
Drains/Shunts: N/A
Specimens/Cultures: Left lower extremity leg below amputation site
Doppler/Duplex/Angio (Y/N): No
Complications: None
Operative Findings: Successful amputation with complete hemostasis
--- NOTE | 2025-04-21 12:31 | OR.RPT ---
Operative Report
Operative Report
PROCEDURE DATE: 04/21/2025
Preoperative diagnosis: Chronic osteomyelitis left lower extremity, nonsalvageable limb.
Postoperative diagnosis: Same
Procedure: Left below the knee amputation
Surgeon: Wellington
Campground Attendant: DORON Vitale, required for all aspects of procedure including assistance with traction/countertraction, assistance with closure.
Complications: None
Anesthesia: General
Indications for procedure:
Left foot chronic osteomyelitis. Type I diabetic. Foot surgery felt foot was no longer salvageable from a osteomyelitis/bone infection standpoint. Risk/benefits/alternatives of left below the knee potation also discussed. Patient understood all
and wished to proceed.
Description of procedure:
Patient was identified brought to the operating room placed on the table in supine position. After the adequate administration of anesthesia and perioperative antibiotics he was prepped and draped in the standard surgical fashion. A standard
preoperative timeout was undertaken and everybody was in agreement the plan. Standard posterior flap type incisions were made in the left lower extremity with a transverse incision anteriorly at approximately 10 to 12 cm distal to the tibial
tuberosity. Medial and lateral longitudinal incisions were carried down. And then posterior transverse incision was then again carried down. Care was taken to avoid inflamed skin just distal to this region. The incisions were carried through
the skin subcutaneous tissue with the electrocautery and then through the fascial layer. Hemostasis was achieved as we progressed. Next the muscles of the anterior and lateral compartments of the calf were divided with electrocautery. The
anterior tibial neurovascular bundle was ligated between silk ties and then divided. The muscles/attachments of the tibia medially were also divided with electrocautery. As such the tibia was then freed of all its attachments and the periosteum
was circumferentially elevated. The fibula was similarly freed of all its surrounding soft tissue and muscles. These were transected with electrocautery. The intermuscular septum was then divided with electrocautery. Circumferential dissection
of the fibula was undertaken carefully and the periosteum was elevated circumferentially around the fibula as well. At this point the tibia and fibula were transected with an oscillating saw. The posterior tissues were then cut with a amputation
knife and a direction parallel to the access of the leg. This was then teed off in a perpendicular access at the distal posterior transverse skin incision site. The leg specimen was then removed. The peroneal and posterior tibial arteries were
then controlled. These were then ligated. (Ligated proximally near the transection site with silk suture ligature). Next I removed any redundant muscle with the electrocautery. Next hemostasis was achieved throughout the muscle bed with
[id number] 2-0 and 3-0 silk suture. Next the oscillating saw was used to bevel the anterior aspect of the tibia so as to avoid any pressure point. A rasp was used to smooth the edges. The fibula was then re- transected with the oscillating
saw to a point approximately 1 cm proximal to the tibial transection. The edges were noted to be smooth. Next we irrigated copiously. Hemostasis was confirmed. We then closed in layers after trimming the skin flap of any redundant/dogear type
projections. 0 Vicryl interrupted suture was used to reapproximate the fascial layer. Next running 3-0 Vicryl deep dermal suture layer was run. Finally skin clips were applied. Bulky dressings were applied. The patient tolerated procedure well.
He was transported to recovery room in stable condition.
[2025-04-21 12:45] LABS: Glucose - Point of Care 154 mg/dl (70-99)
[2025-04-21] MEDS: DILAUDID 0.5 MG IV ×2 (12:54→13:05)
[2025-04-21 13:00] LABS: Hematocrit 27.6 % (39.0-52.0); Hemoglobin 8.7 g/dL (13.0-18.0); Mean Corp Hgb Conc. 31.5 g/dL (33.0-37.0); Mean Corpuscular Volume 89.6 fL (80.0-94.0); Platelet Count 558 10^3/uL (130-400); Red Cell Dist. Width 15.4 % (11.5-14.5)
[2025-04-21 13:29] LABS: Blood Urea Nitrogen 26 mg/dl (9-20); Calcium 8.2 mg/dl (8.4-10.2); Carbon Dioxide 29 mmol/L (22-30); Chloride 105 mmol/L (98-107); Estimated Creatinine Clearance 98 ml/min; Glucose 141 mg/dl (70-99); Potassium 5.7 mmol/L (3.5-5.1); Sodium 139 mmol/L (135-145); eGFR > 60.00
[2025-04-21] MEDS: DILAUDID PCA 30 IV (13:34)
[2025-04-21 14:15] LABS: Glucose - Point of Care 172 mg/dl (70-99)
[2025-04-21] MEDS: ASPIR LOW (ENTERIC COATED) 81 MG PO (14:54)
[2025-04-21] MEDS: NOVOLOG FLEXPEN-LOW RESISTANCE 1 UNITS SC (14:57)
--- NOTE | 2025-04-21 15:41 | CM ---
Chart reviewed and patient for OR today for left BKA. Plan to return to [facility] when stable.
Plan; [facility]
[phone]
[2025-04-21] MEDS: CUBICIN 16 MG IV (15:43)
[2025-04-21] MEDS: LOKELMA 10 GRAM PO (16:42)
[2025-04-21 16:48] LABS: Glucose - Point of Care 364 mg/dl (70-99)
--- NOTE | 2025-04-21 17:14 | PTCARENOTE ---
Pt returned from OR with BOWLING PIN SETTERS INSTALLER in place, hand off with PACU staff. Pt with positive femoral pulse with doppler. Cont's pulse ox placed on pt. Pt reports relief from pain with BOWLING PIN SETTERS INSTALLER pump. Pt call morales is within reach, pt rings park. guards at bedside.
will cont to monitor.
[2025-04-21] MEDS: NOVOLOG FLEXPEN-LOW RESISTANCE 5 UNITS SC (18:09)
[2025-04-21] MEDS: NOVOLOG FLEXPEN 10 UNITS SC (18:10)
[2025-04-21 21:07] LABS: Glucose - Point of Care 392 mg/dl (70-99)
[2025-04-21] MEDS: REMERON 30 MG PO (21:54)
[2025-04-21] MEDS: LANTUS 0.3 UNITS SC (21:55)
[2025-04-21 23:49] LABS: Glucose - Point of Care 366 mg/dl (70-99)
[2025-04-22] MEDS: NOVOLOG FLEXPEN-LOW RESISTANCE SC ×2 (00:01→17:11)
[2025-04-22] MEDS: NOVOLOG FLEXPEN 5 UNITS SC (00:07)
[2025-04-22] MEDS: TYLENOL 1000 MG PO ×5 (00:45→23:58)
[2025-04-22 01:54] LABS: Glucose - Point of Care 349 mg/dl (70-99)
[2025-04-22] MEDS: NOVOLOG FLEXPEN 7 UNITS SC (02:23)
[2025-04-22] MEDS: BENADRYL 25 MG IV ×3 (02:30→18:37)
[2025-04-22 02:48] VITALS: BP 111/65
[2025-04-22 03:43] LABS: Glucose - Point of Care 318 mg/dl (70-99)
[2025-04-22 07:42] LABS: Glucose - Point of Care 225 mg/dl (70-99)
[2025-04-22 07:45] VITALS: BP 106/69
--- NOTE | 2025-04-22 08:24 | PN.DE.MGMTRT ---
Insulin Management
- -
04/22/2025: Diabetes Management Follow up
Patient admitted from [facility] 03/21 with c/o bleeding L heel wound. PMH type 1 diabetes, R BKA, L toe amputation, recent debridement L heel, [place], CHF, HTN, CKD, CA, recent admission 01/21 and 03/05 s/p
transmetatarsal L amputation and debridement. Prior to admission was receiving Lantus 30 units BID with Humalog insulin ss AC. A1C on admission 6.9%, (improved from 8.1%). Cr 1.1, eGFR > 60 today.
Prior to incarceration was [facility] in a penit[facility]iary per patient he will return there.
Patient awake, alert, oriented, sitting up in bed, able to discuss diabetes care plan.
POD# 1 s/p Left BKA, doing well, on MAINTENANCE OF WAY CLERK pump for pain control. Hgb 8.5, Cr 1.5, eGFR > 60 today.
Pt did not receive AM Lantus and AC NovoLog yesterday 2/2 NPO status. Glucose has trended up as a result of missed Lantus dose yesterday.
Post -op glucose range has been 364 to 392, fasting glucose was 225 POC today
Will make no changes to his pre-op diabetes regimen as his glucose was controlled. Expect glucose to start trending down later today.
Will continue AM Lantus dose 25 units and PM dose of 30 units. Cont AC NovoLog to 10 units.
Cont low corrective with meals. Will assess glucose trend for need to further adjust insulin today if necessary.
Discussed with nurse. Will cont to follow.
Diabetes History
- -
Type of Diabetes: 1
Pre-Admission Diabetes Regimen
04/21/25 04/21/25
07:36 12:54
Creatinine 1.4 H 1.4 H
Lab Results
Hemoglobin A1c 6.9 % (4.0-5.6) H 03/22/25 06:24
Insulin Pump Settings
IP Diabetes Regimen
04/21/25 04/21/25 04/21/25
07:36 10:40 12:43
Glucose 94
POC Glucose 133 H 154 H
04/21/25 04/21/25 04/21/25
12:54 14:14 16:47
Glucose 141 H
POC Glucose 172 H 364 H
04/21/25 04/21/25 04/22/25
21:06 23:47 01:52
Glucose
POC Glucose 392 H 366 H 349 H
04/22/25 04/22/25
03:41 07:41
Glucose
POC Glucose 318 H 225 H
Meal type: Lunch
Meal type: Breakfast
Amount consumed: 100%
Patient Education
[2025-04-22 08:54] LABS: Hematocrit 28.5 % (39.0-52.0); Hemoglobin 8.5 g/dL (13.0-18.0); Mean Corp Hgb Conc. 29.8 g/dL (33.0-37.0); Mean Corpuscular Volume 95.0 fL (80.0-94.0); Platelet Count 563 10^3/uL (130-400); Red Cell Dist. Width 15.0 % (11.5-14.5)
[2025-04-22 09:22] LABS: Blood Urea Nitrogen 37 mg/dl (9-20); Calcium 8.2 mg/dl (8.4-10.2); Carbon Dioxide 29 mmol/L (22-30); Chloride 100 mmol/L (98-107); Estimated Creatinine Clearance 91 ml/min; Glucose 227 mg/dl (70-99); Potassium 5.2 mmol/L (3.5-5.1); Sodium 136 mmol/L (135-145); eGFR > 60.00
[2025-04-22] MEDS: COREG 25 MG PO ×2 (09:45→20:37)
[2025-04-22] MEDS: RANEXA EXTENDED RELEASE 1000 MG PO ×2 (09:46→20:32)
[2025-04-22] MEDS: IMDUR (EXTENDED RELEASE) 60 MG PO (09:46)
[2025-04-22] MEDS: LANTUS 0.25 UNITS SC (09:46)
[2025-04-22] MEDS: CYMBALTA DELAYED RELEASE 30 MG PO (09:46)
[2025-04-22] MEDS: ASPIR LOW (ENTERIC COATED) 81 MG PO (09:46)
[2025-04-22] MEDS: PROTONIX 40 MG PO (09:46)
[2025-04-22] MEDS: NEURONTIN 300 MG PO ×3 (09:46→21:50)
[2025-04-22] MEDS: FEOSOL 325 MG PO ×2 (09:47→20:32)
[2025-04-22] MEDS: NOVOLOG FLEXPEN-LOW RESISTANCE 2 UNITS SC ×2 (09:48→13:20)
[2025-04-22] MEDS: NOVOLOG FLEXPEN 10 UNITS SC ×3 (09:48→18:36)
--- NOTE | 2025-04-22 10:48 | W.PN.VS ---
Today's Communication / Plan
-
.
Assessment/Plan
-
POD 1 LEFT BKA
Dressing down tomorrow
CRADLE SLIDE MAKER/pain control
Subjective Data
-
Date of Service: April 22, 2025
Reports pain controlled on CRADLE SLIDE MAKER
No other complaints this AM
Has some questions regarding his existing right BKA stump
Objective Data
-
Vital Signs
Temp Pulse Resp BP Pulse Ox
97.6 F 87 18 106/69 99
04/22/25 07:45 04/22/25 07:45 04/22/25 08:00 04/22/25 07:45 04/22/25 08:00
Intake and Output
04/21/25 04/22/25 04/23/25
06:59 06:59 06:59
Intake Total 600 / 600
Output Total 3500 / 3500 2805 / 2805
Balance -3500 / -3500 -2205 / -2205
Intake:
Oral fluids 600 / 600
Output:
Urine, Castillo 2500 / 2500 1805 / 1805
Urine, Voided 1000 / 1000 1000 / 1000
Lab Results
04/22/25 08:39
04/22/25 08:39
Calcium 8.2 mg/dl (8.4-10.2) L 04/22/25 08:39
Total Bilirubin 0.4 mg/dl (0.2-1.3) 04/21/25 07:36
AST 13 U/L (17-59) L 04/21/25 07:36
ALT 10 U/L (0-50) 04/21/25 07:36
Alkaline Phosphatase 71 U/L (38-126) 04/21/25 07:36
Total Protein 6.5 g/dl (6.3-8.2) 04/21/25 07:36
Albumin 3.2 g/dl (3.5-5.0) L 04/21/25 07:36
Physical Exam
-
Non toxic
NAD
Left BKA dressing is clean and dry
Right BKA with superficial scab/ulcer. No infection present
--- NOTE | 2025-04-22 10:49 | W.PN.ID1 ---
Date of Service
Date of Service: April 22, 2025
Today's Communication
- If stump looks clean tomorrow during dressing change, can dc daptomycin and ceftaz/avibactam.
Assessment / Plan
# Osteomyelitis Left foot TMA site wound dehiscence with necrosis
- Failed multiple revisions
- 04/21/25 s/p left BKA
- If stump looks clean tomorrow during dressing change, can dc daptomycin and ceftaz/avibactam.
# Right BKA stump superfical scab over bony prominence.
- Possible revision of stump
# Leukocytosis post-op
Trend wbc.
# Allergies: PCN, cephalosporin, meropenem, Vancomycin; tolerated Avyzaz
# Incarcerated
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
Diabetes mellitus
CAD status post PCI
CHF
hx CKD3
Hypertension
Guillain-Potts� syndrome/CIDP, plasma exchange q 2 months
PAD status post right BKA
Left hallux and second toe osteomyelitis status post amputation and debridement of left heel ulcer January 21, 2025
Left foot TMA, I+D left heel wound and bone biopsy of heel (neg osteo) Mar 08, 2025 (path surgical cure)
Chief Complaint
-: Other (Foot wound)
Subjective / Review of Systems
Post-op pain controlled
Vital Signs / Physical Exam
Vital Signs
Vital Signs
Temp Pulse Resp BP Pulse Ox
97.6 F 87 18 106/69 99
04/22/25 07:45 04/22/25 07:45 04/22/25 08:00 04/22/25 07:45 04/22/25 08:00
Physical Exam
Constitutional: No Acute Distress
Cardiovascular: Regular Rate and S1/S2
Gastrointestinal: Soft, Non Tender and Non Distended
Extremities: Negative Edema
Wound: Other (Left BKA post-op dressing dry. )
Neurological: AO x 3
Objective Data
Lab Data
Lab Results
04/22/25 08:39
04/22/25 08:39
ESR Cancelled 04/17/25 10:48
PT 13.7 Sec (11.4-14.6) 04/17/25 06:33
INR 1.02 04/17/25 06:33
APTT 33.8 Sec (23.4-35.0) 04/17/25 06:33
Estimated Creat Clear 91 ml/min 04/22/25 08:39
Lactic Acid 0.8 mmol/L (0.7-2.0) 03/25/25 01:16
Total Bilirubin 0.4 mg/dl (0.2-1.3) 04/21/25 07:36
AST 13 U/L (17-59) L 04/21/25 07:36
ALT 10 U/L (0-50) 04/21/25 07:36
Alkaline Phosphatase 71 U/L (38-126) 04/21/25 07:36
Most recent labs reviewed.
Micro Results:
03/25/25 16:52 Fungal Culture - Preliminary
Foot - Left Anna albicans
04/13/25 16:07 Wound Culture - Final
Foot - Left Enterobacter cloacae
Gram Stain - Final
04/13/25 16:07 Anaerobic Culture - Final
Foot - Left NO ANAEROBES ISOLATED
04/04/25 16:30 Wound Culture - Final
Foot - Left Enterobacter cloacae
Gram Stain - Final
04/04/25 16:30 Anaerobic Culture - Final
Foot - Left NO ANAEROBES ISOLATED
03/31/25 10:51 Blood Culture - Final
Blood/Venous No Growth - Final Report
03/31/25 10:22 Blood Culture - Final
Blood/Venous No Growth - Final Report
03/25/25 09:33 Blood Culture - Final
Blood/Venous No Growth - Final Report
03/25/25 16:56 Wound Culture - Final
Foot - Left Staph aureus MRSA
Enterococcus faecalis - VRE
Gram Stain - Final
03/25/25 16:56 Anaerobic Culture - Final
Foot - Left NO ANAEROBES ISOLATED
03/25/25 16:52 Wound Culture - Final
Foot - Left Staph aureus MRSA
Enterococcus faecalis - VRE
Gram Stain - Final
03/25/25 16:52 Anaerobic Culture - Final
Foot - Left NO ANAEROBES ISOLATED
03/25/25 01:16 Blood Culture - Final
Blood/Venous No Growth - Final Report
03/27/25 10:35 Urine Culture - Final
Urine Anna albicans
03/24/25 12:51 Salmonella/Shigella Culture - Final
Feces/Stool No Salmonella, Shigella, Aeromonas or Plesiomonas species
isolated.
Campylobacter Culture - Final
No Campylobacter species isolated.
Shiga Toxin Test - Final
No E. coli Shiga Toxin 1 or 2 detected.
03/21/25 21:00 Blood Culture - Final
Blood/Venous No Growth - Final Report
03/21/25 21:00 Blood Culture - Final
Blood/Venous No Growth - Final Report
03/21/25 21:16 Wound Culture - Final
Foot - Left Enterococcus faecalis - VRE
Anna albicans
Gram Stain - Final
03/24/25 12:53 C. difficile GDH Antigen & Toxins - Final
Feces/Stool C. difficile antigen positive, toxin negative.
Clostridium difficile present, but toxin not detected.
Patient may be a carrier, colonized with nontoxinogenic
strain or the level of toxin in sample is below detection
limits. This information should be used in conjunction with
the patient's clinical history.
03/22/25 13:07 MRSA Screen - Final
Nose No Methicillin Resistant Staphylococcus aureus isolated.
[2025-04-22 11:03] VITALS: BP 111/64
[2025-04-22] MEDS: NSS 1000 IV (11:30)
[2025-04-22 11:57] LABS: Glucose - Point of Care 223 mg/dl (70-99)
--- NOTE | 2025-04-22 13:25 | W.PN.HOSP.TC ---
Addendum entered and electronically signed by Min Collins MD 04/22/25 14:33:
Seen and examined the patient earlier today. Agree with the resident's note and assessment plan
Patient states that he is in pain.
Hemoglobin is stable
Left AKA site bandaged
Patient has Dilaudid SENIOR BUSINESS INTELLIGENCE ANALYST pump vascular surgery
Hold torsemide given creatinine is still 1.5
Potassium is better with low potassium diet
Sugars are better since insulin was resumed.
Patient had lunch yesterday after he came back without getting AC NovoLog resumed, given that is resumed at dinnertime it took time to catch up.
Follow on current regimen and watch
Right BKA stump with no infection very superficial. Concerned that patient may be manipulating that area
I would prefer that he heal completely from the left BKA before revision is considered for the right, consider this as outpatient instead of during this admission.
Would keep the right BKA stump also covered
Discussed with Dr. Castillo
Discussed with nursing at bedside
Original Note:
Today's Communication/Plan
-
POD #1 for L BKA
Continue current analgesia
R BKA to be wrapped with gauze and dressing provided to avoid further irritation to the site. Patient may be accidentally irritating the area.
Assessment / Plan
Assessment / Plan
HPI: 29-year-old male with PMHx significant for insulin-dependent type 1 diabetes mellitus, CIDP, Hypertension, GERD, CKD stage IIIA, history of osteomyelitis and TMA is admitted to the hospital for evaluation and management of acute blood loss
anemia from TMA wound dehiscence.
Assessment/Plan:
-Left foot TMA site with wound dehiscence:
-History of left foot TMA on 03/08:
-Acute bleed: from site of L TMA and Heel Debridement (03/25 and 04/08)
-Acute blood Loss Anemia secondary to the above:
Vascular ultrasound showed no significant arterial stenosis on the left however Doppler waveforms suggest disease within the distal SFA/popliteal artery and infrapopliteal disease may also be present as per arterial studies. Multiple lymph nodes
were also seen in the left thigh which may be reactive.
Wound cultures grew MRSA, VRE
Blood cultures did not show any growth
Underwent ultrasound of the left lower extremity did not show any evidence of DVT
Iron supplementation continue
Continue monitoring hemoglobin daily and transfuse as needed to maintain hemoglobin greater than 7
Status postdebridement 03/25.
Pathology results came back which showed focal acute osteomyelitis and detached fragment of fibrino-purulent exudate
Patient underwent his open TMA revision and wound debridement on 04/04 -there was significant drainage postoperatively - pathology positive for acute and chronic osteomyelitis
Wound culture from 04/04 positive for Enterobacter Cloacae
Continue antibiotics as per ID recommendations
Podiatry recommends nonweightbearing to the left lower extremity and continued elevation of the extremity on 2-3 pillows
Continue Daptomycin (currently on day 21 on 04/14/2025)
Continue ceftazidime/avibactam 1250 mg (Day 9 on 04/14/25) as per infectious diseases recommendations
Patient's lab work on the morning of 04/07/2025 had a hemoglobin at 7.1 with a hematocrit of 20.7�repeat H&H ordered which was 6.7 - 1 PRBC ordered on 04/07/25
Podiatry has tentatively planned for revision surgery of the L foot after pathology returns from most recent debridement on 04/06/25
Patient had an episode of acute blood loss on 04/08/2025 where a large amount of blood was lost from his foot wound. 1 PRBC given on 04/08/25
Scheduled for OR with podiatry for debridement vs lisfranc disarticulation on 04/13/25 - procedure tolerated well
Patient's Hgb is 7.5 on 04/15/25 - will continue to follow - if <7 then will transfuse PRBCs
Patient received 1 unit of PRBCs on 04/16/2025
Continue Holding anticoagulants postoperatively - will resume near discharge date
Appreciate ID recommendations - likely to be discharged on oral abx
Appreciate hematology recommendations -they are under the impression that the patient is suffering from some element of WILBER and recommended continuing with oral iron supplement.
We have initiated anemia workup with LDH at 171, haptoglobin pending, Positive Candie test, 1+ BOBBY IgG, stool heme test, and PT/PTT were within normal limits. Based on positive Candie test, consider drug-induced immune hemolytic anemia, delayed
hemolytic transfusion reaction, or cold agglutinin disease
Abdominal ultrasound found that the liver and spleen were within normal limits in size without hepatosplenomegaly. No ascites. Tiny gallstones without sonographic features of acute cholecystitis. No bile duct dilatation.
Most recent pathology from left foot metatarsal was positive for chronic osteomyelitis with bone remodeling
Patient tolerated his Left BKA and is recovering postoperatively. POD 1 L BKA
-Right BKA: Stable/monitoring
gauze and wrapped dressing provided to avoid further irritation to the site. Patient may be accidentally irritating the area.
-Hyperkalemia: Resolved
Patient was hyperkalemic with postassium of 5.5 on 04/14/25
Lokelma given, Insulin adjusted to home dose.
Repeat potassium on 04/15/25 is 4.9 - within normal limits.
Potassium was 5.7 on 04/18/2025�Lokelma given�Will repeat with BMP
Torsemide has been resumed
-Itchy rash:
Continue IV Benadryl
-Diarrhea:
Check stool sample for C. difficile if loose stool continues
- Urinary retention:
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
Patient self caths
Castillo catheter has been discontinued. Patient will be able to self cath as he usually does this in the outpatient setting
- History of ASCVD
- Status post stent palcement
- Chest pain:
EKG/troponin negative for any acute process
ASA held
Plavix 75mg held
Statin held
Continue Ranolazine
Continue Carvedilol
Type 1 diabetes with Hyperglycemia and neuropathy: Monitoring
A1C = 8.1% in January. Hba1c on 03/21/25 was 6.9 indicating improvement in overall glycemic control
Diabetes AS400 ADMINISTRATOR consulted, recommendations appreciated
Lantus adjusted to 30 units, Aspart adjusted to 10 units at breakfast, lunch and dinner.
Continue gabapentin, continue duloxetine
-AMBER on CKD IIIa: Unresolved
Continue to monitoring creatinine, has been hovering around 1.4/1.5
Urine studies show pre-renal cause, likely from hypovolemic state
Continued elevated creatinine level at 1.6 on 04/04/2025
Continue monitoring BMP.
Torsemide resumed
IV fluid support
-GERD
Continue Pantoprazole
-Chronic inflammatory demyelinating polyneuropathy:
Continue current meds, will need to arrange for PLEX in outpatient setting once discharged
FULL CODE STATUS
Stress Ulcer Prophylaxis: Pantoprazole
DVT Prophylaxis: SCDs
Imaging:
-Left foot x-ray conducted on 03/21/2025:
Status post amputation at the level of the first through fifth proximal metatarsal bones.
No radiographic evidence for osteomyelitis.
- Bilateral lower extremity arterial ultrasound exam conducted on 03/23/2025:
1. Ankle-brachial indices and toe brachial indices could not be measured due to prior amputations.
2. No focal significant arterial stenosis demonstrated on the left side on duplex imaging. Spectral Doppler waveform analysis is suggestive of disease within the distal SFA/popliteal artery. Infrapopliteal disease may also be present.
3. Multiple lymph nodes are seen within the left thigh, which may be reactive.
-Peripheral vascular ultrasound of the left lower extremity conducted on 03/31/2025:
No evidence of DVT of the left lower extremity.
Procedures:
03/03/2025-initial amputation of left transmetatarsal
03/25/2025-debridement of infected left metatarsal amputation
04/04/2025-revision debridement of left heel wound with calcaneal biopsy.
Anticipated Discharge: 24 - 48 hours
Subjective/Interval History
-
Date of Service: April 22, 2025
Met with patient at the bedside. He states that he is uncomfortable after his procedure but states that his pain medication management is adequate in controlling his pain. He speculates that he may be able to increase the duration of when he
receives Dilaudid so that he does not experience any type of withdrawal symptoms which he is concerned about. I spoke to the patient about the unlikelihood of withdrawal symptoms and the current hospital setting and that the patient should focus on
his comfort level primarily. Patient shared that he broke one of his upper right teeth. Patient denies any shortness of breath, chest tightness, or chest pain. Patient denies any nausea vomiting or diarrhea.
Objective Data
-
Labs:
Laboratory Results
04/22/25
08:39
WBC 12.0 H
Hgb 8.5 L
Hct 28.5 L
Plt Count 563 H
Sodium 136
Potassium 5.2 H
Chloride 100
Carbon Dioxide 29
BUN 37 H
Creatinine 1.5 H
Glucose 227 H
Calcium 8.2 L
Vital Signs:
Vital Signs
Temp Pulse Resp BP Pulse Ox
97.4 F 87 16 111/64 99
04/22/25 11:03 04/22/25 11:03 04/22/25 11:03 04/22/25 11:03 04/22/25 11:03
I&O
04/21/25 04/22/25 04/23/25
06:59 06:59 06:59
Intake Total 600 / 600
Output Total 3500 / 3500 2805 / 2805
Balance -3500 / -3500 -2205 / -2205
Review of Systems
-
History Source: Patient
Constitutional: Reports Fatigue
EENT: Reports No Symptoms Reported
Respiratory: Reports No Symptoms
Cardiac: Reports No Symptoms
Abdomen/GI: Reports No Symptoms
Breast: Reports No Symptoms
Musculoskeletal: Reports Joint Pain (Left foot) and Muscle Pain (Left foot)
Neuro: Reports No Symptoms
Endocrine: Reports No Symptoms
Physical Exam
-
General: Well Developed, Well Nourished, Comfortable, Conversant and Obese
HEENT: Normocephalic and Atraumatic
Respiratory: Clear to Auscultation and Non Labored Respirations; Negative Wheezes, Rales, Rhonchi or Crackles
Cardiac: Regular Rhythm and S1/S2; Negative Murmur, Calf Tenderness or Tachycardic
GI: Soft, Nontender, Nondistended and Normal Bowel Sounds; Negative Organomegaly
Genito-urinary: No Costovertebral Tender, Clear Urine and Castillo
Musculoskeletal: No Clubbing, No Cyanosis and Other (R BKA with superficial scab/ulcer and no infection. L BKA with clean dressing)
Skin: Warm and Dry; Negative Rash or Ulcers
Neuro: Awake, Alert, Oriented, AO x 3 and No Sensory Deficits
Psych: Calm
[2025-04-22 15:13] VITALS: BP 85/44
[2025-04-22 15:31] LABS: Glucose - Point of Care 183 mg/dl (70-99)
[2025-04-22 16:04] LABS: Hematocrit 26.9 % (39.0-52.0); Hemoglobin 8.1 g/dL (13.0-18.0)
[2025-04-22] MEDS: DILAUDID PCA 30 IV (16:35)
[2025-04-22 16:41] LABS: Glucose - Point of Care 148 mg/dl (70-99)
[2025-04-22] MEDS: NSS 250 IV (16:43)
[2025-04-22] MEDS: CUBICIN 16 MG IV (16:45)
[2025-04-22] MEDS: LOVENOX 40 MG SC (18:39)
[2025-04-22 21:34] LABS: Glucose - Point of Care 102 mg/dl (70-99)
[2025-04-22] MEDS: LANTUS 0.3 UNITS SC (21:49)
[2025-04-22] MEDS: REMERON 30 MG PO (21:50)
[2025-04-22 23:00] VITALS: BP 132/82
[2025-04-23] MEDS: TYLENOL 1000 MG PO ×4 (05:14→23:41)
[2025-04-23 06:00] VITALS: BMI 32.1
--- NOTE | 2025-04-23 06:19 | PTCARENOTE ---
1900 pt was 99% on 2L. attempted off O2 SpO2=90-96% on room air.while sleeping o2=86-90% placed back on o2. pt continues w/ STILL PHOTOGRAPHER Dilaudid pump. encourage patient to perform deep breathing. obtained IS. Pt states he will do it in the am.
0200 pt sleeping
0600 - Castillo removed. pt self caths at baseline. dressing remain c/d/i.
[2025-04-23 07:34] VITALS: BP 144/70
[2025-04-23 07:47] LABS: Glucose - Point of Care 43 mg/dl (70-99)
[2025-04-23 08:08] LABS: Glucose - Point of Care 51 mg/dl (70-99)
[2025-04-23] MEDS: NOVOLOG FLEXPEN-LOW RESISTANCE SC (08:26)
[2025-04-23 08:32] LABS: Glucose - Point of Care 50 mg/dl (70-99)
[2025-04-23] MEDS: NOVOLOG FLEXPEN SC ×2 (08:43→12:19)
[2025-04-23] MEDS: DEXTROSE 50% SYRINGE 12.5 GRAMS IV (08:44)
[2025-04-23] MEDS: NEURONTIN 300 MG PO ×3 (08:46→21:15)
[2025-04-23] MEDS: IMDUR (EXTENDED RELEASE) 60 MG PO (08:46)
[2025-04-23] MEDS: FEOSOL 325 MG PO ×2 (08:46→20:37)
[2025-04-23] MEDS: CYMBALTA DELAYED RELEASE 30 MG PO (08:46)
[2025-04-23] MEDS: RANEXA EXTENDED RELEASE 1000 MG PO ×2 (08:46→20:37)
[2025-04-23] MEDS: PROTONIX 40 MG PO (08:47)
[2025-04-23] MEDS: COREG 25 MG PO ×2 (08:47→20:37)
[2025-04-23] MEDS: ASPIR LOW (ENTERIC COATED) 81 MG PO (08:52)
[2025-04-23 09:37] LABS: Glucose - Point of Care 108 mg/dl (70-99)
[2025-04-23] MEDS: LANTUS SC (11:21)
[2025-04-23 11:43] LABS: Hematocrit 24.8 % (39.0-52.0); Hemoglobin 7.6 g/dL (13.0-18.0); Mean Corp Hgb Conc. 30.6 g/dL (33.0-37.0); Mean Corpuscular Volume 94.7 fL (80.0-94.0); Platelet Count 491 10^3/uL (130-400); Red Cell Dist. Width 15.3 % (11.5-14.5)
[2025-04-23 11:53] LABS: Glucose - Point of Care 158 mg/dl (70-99)
[2025-04-23] MEDS: BENADRYL 25 MG PO (12:04)
[2025-04-23 12:15] LABS: Blood Urea Nitrogen 39 mg/dl (9-20); Calcium 7.6 mg/dl (8.4-10.2); Carbon Dioxide 30 mmol/L (22-30); Chloride 102 mmol/L (98-107); Estimated Creatinine Clearance 77 ml/min; Glucose 95 mg/dl (70-99); Potassium 4.7 mmol/L (3.5-5.1); Sodium 140 mmol/L (135-145); eGFR 51.61
[2025-04-23] MEDS: NOVOLOG FLEXPEN-LOW RESISTANCE 1 UNITS SC (12:55)
[2025-04-23] MEDS: NSS 1000 IV (13:01)
--- NOTE | 2025-04-23 13:46 | W.PN.HOSP.TC ---
Today's Communication/Plan
-
Taper DECORATIVE ENGRAVER pump slowly
Hold NovoLog and a.m. insulin
Use sliding scale for today
Change p.m. insulin dose to 5 units
Monitor blood glucose closely.
Assessment / Plan
Assessment / Plan
Assessment - 29-year-old male with PMHx significant for IDDM, type I, CIDP, GERD, stage IIIa CKD, history of recurrent osteomyelitis with BKA, GERD, TMA, hypertension, CAD s/p CABG, presents to the hospital for evaluation of acute blood loss anemia
from TMA wound dehiscence.
# Acute on chronic anemia-
from left foot TMA site with wound dehiscence.
S/p 9 units blood transfusion since admission on 03/22/2025
most recent blood transfusion on 04/16/25
Hemoglobin stable at 7.8, Trend H&H transfuse if less than 7
Monitor for transfusion associated complications.
Likely a confluence of autoimmune anemia, anemia of chronic disease and acute blood loss, currently on iron supplementation.
Positive Candie test, LDH at 171, 1+ BOBBY IgG, stool heme test sent PT/PTT within normal limits.
Differential diagnosis at this point include drug-induced immune hemolytic anemia, delayed hemolytic transfusion reaction or cold agglutinin disease.
# acute osteomyelitis of left foot,
Recurrent heel debridements.
04/13 s/p lisfranc disarticulation and heel wound debridement, with OR cultures positive for Enterobacter, and bone pathology from 04/13 showed chronic osteomyelitis.
Left BKA on 04/20/2025 , with vascular surgeon, appreciate ID, vascular surgery, orthopedics help in management.
Currently on DECORATIVE ENGRAVER, i told the patient that it would be discontinued by tomorrow night, and currently he should be doing 20 min, and then in the evening switch to 30 minutes.
History of left foot TMA on 03/25 after heel debridement s/p I+D, removal of necrotic bone at amp site, I+D heel wound to subcutaneous tissue; wound vac placed, cultures showed VRE and MRSA. And pathology showed focal acute osteomyelitis and
detached fragment of fibrinopurulent exudate.
Initial amputation of left forefoot transmetatarsal done on 03/09/2025
Patient readmitted for suspicious wound infection and osteomyelitis on 03/22, postdebridement on 03/25 and 04/04
On 04/04/2025-revision wound debridement, with cultures yielding Enterobacter cloacae, MDR resistant, bone pathology pending. Patient could not tolerate wound VAC. Podiatry notes reviewed, appreciate recommendations, more surgery pending the bone
pathology results. ID on board, vascular surgery on board. Continue medications- Daptomycin day 27 ceftazidime avibactam-20, ID recommends discontinuation if stump looks clean. Touch base with vascular surgery for dressing change and stump.
Vascular ultrasound with no significant arterial stenosis within the distal SFA/popliteal artery and possible infrapopliteal disease
Wound cultures showed MRSA, VRE.
No growth in blood cultures.
ID on board, podiatry on board, vascular surgery on board.
pathology on Left second metatarsal bone performed on 03/25/2025 - on 03/28/2025 showed focal acute osteomyelitis and detached fragment of fibrinopurulent exudate.
Pathology of left foot metatarsals sent on 04/05/2025-showed chronic osteomyelitis.
Podiatry recommends nonweightbearing to the left lower extremity and continued elevation of the extremity on 2-3 pillows
# BKA-left-
Currently on DECORATIVE ENGRAVER, advised the patient to switch to 20 minutes and then to 30 minutes, taper by tomorrow night.
No more than 04/24/2025-DECORATIVE ENGRAVER pump
# Diarrhea-
Likely antibiotic associated
C. difficile testing in the past-not conclusive.
# Itchy rash-
Switch to oral Benadryl.
# AMBER on CKD stage IIIa-
Improving renal function, serum creatinine improved to 1.2 from peak 3.0
Torsemide held, IV fluids to be continued.
Monitor carefully for blood pressure and volume overload.
# CAD s/p PCI-
# Angina-
Plavix and aspirin held in light of recurrent bleeding.
Statin held for 31 days, patient on daptomycin.
Continue carvedilol and ranolazine.
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
Diabetes education and management on board.
Continue Lantus, NovoLog and sliding scale. (Home dose-Lantus 30 twice daily, NovoLog 10 units)
Recurrent hypoglycemic episodes in the a.m. today, Lantus 25 units in the a.m. held, all NovoLog held for the day, p.m. Lantus dose changed to 5 units, patient was put on moderate resistance sliding scale for rest of the day.
Will adjust blood sugars as needed in the a.m. tomorrow.
Overnight additional insulin requirement minimal.
Hemoglobin A1c at 8.1 as of 02/04.
Accu-Cheks AM and at bedtime
Diabetic diet, follow blood glucose and electrolytes.
Monitor for hypoglycemic episodes.
Continue duloxetine and gabapentin for diabetic neuropathy.
# Essential hypertension-
Continue Imdur and Coreg
# Urinary retention-
Likely from diabetic autonomic dysfunction, neuropathic bladder.
Baseline patient self caths.
Not on Castillo anymore.
# CIDP-
Arrange for Plex outpatient.
# GERD-
Continue pantoprazole.
# Anxiety/depression-
Continue mirtazapine.
# DVT prophylaxis-
SCDs
# CODE STATUS-
Full code
Imaging and procedures-
03/21/2025-left foot x-ray-
Status post amputation at the level of the first through fifth proximal metatarsal bones.
No radiographic evidence for osteomyelitis.
03/23/2025-B/L LLE arterial ultrasound-
1. Ankle-brachial indices and toe brachial indices could not be measured due to prior amputations.
2. No focal significant arterial stenosis demonstrated on the left side on duplex imaging. Spectral Doppler waveform analysis is suggestive of disease within the distal SFA/popliteal artery. Infrapopliteal disease may also be present.
3. Multiple lymph nodes are seen within the left thigh, which may be reactive.
-03/31/2025-left LLE PVS -no DVT
03/03/2025-initial amputation of left transmetatarsal
03/25/2025-debridement of infected left metatarsal amputation
04/04/2025-revision debridement of left heel wound with calcaneal biopsy.
Anticipated Discharge: > 48 hours
Subjective/Interval History
-
Date of Service: April 23, 2025
Patient reports that he is in severe pain, and states that he would not want to discontinue his DECORATIVE ENGRAVER until a.m.
Objective Data
-
Labs:
Laboratory Results
04/23/25
10:01
WBC 9.6
Hgb 7.6 L
Hct 24.8 L
Plt Count 491 H
Sodium 140
Potassium 4.7
Chloride 102
Carbon Dioxide 30
BUN 39 H
Creatinine 1.8 H
Glucose 95
Calcium 7.6 L
Vital Signs:
Vital Signs
Temp Pulse Resp BP Pulse Ox
98.2 F 88 16 144/70 96
04/23/25 07:34 04/23/25 07:34 04/23/25 08:00 04/23/25 07:34 04/23/25 09:00
I&O
04/22/25 04/23/25 04/24/25
06:59 06:59 06:59
Intake Total 600 / 600 3064 / 3064
Output Total 2805 / 2805 1600 / 1600
Balance -2205 / -2205 1464 / 1464
Review of Systems
-
History Source: Family
All other systems: Reviewed and negative
Constitutional: Reports Other (Pain)
EENT: Reports No Symptoms Reported
Respiratory: Reports No Symptoms
Cardiac: Reports No Symptoms
Abdomen/GI: Reports No Symptoms
Genitourinary: Reports No Symptoms
Musculoskeletal: Reports No Symptoms
Skin: Reports No Symptoms
Neuro: Reports No Symptoms
Endocrine: Reports No Symptoms
Hematologic / Lymphatic: Reports No Symptoms
Allergy / Immunology: Reports No Symptoms
Physical Exam
-
General: Comfortable; Negative Respiratory Distress
HEENT: Moist Mucous Membranes and Russell Conjunctivae; Negative Thrush
Respiratory: Clear to Auscultation; Negative Wheezes, Rales, Rhonchi or Crackles
Cardiac: Regular Rhythm and S1/S2; Negative Murmur, Rub or Gallop
GI: Soft, Nontender, Nondistended and Normal Bowel Sounds
Genito-urinary: No Costovertebral Tender
Musculoskeletal: No Clubbing, No Cyanosis and Other (Bilateral BKA's,)
Skin: Warm
Neuro: AO x 3 and No Motor Deficits
Psych: Calm
Data Reviewed
-
Labs: Labs Reviewed by me, Discussed with Physician and Discussed with Patient
--- NOTE | 2025-04-23 13:50 | W.PN.UPDATE ---
Update Note
Progress Note Update
I saw and evaluated the patient with the residents
A/P:
# Left foot Osteomyelitis with TMA site wound dehiscence with necrosis
Failed multiple revisions
s/p left BKA 04/21/25
Per ID, if stump looks clean during dressing change, can dc daptomycin and ceftaz/avibactam, and plan for DC
Hgb today at 7.6, Cont to monitor
weaning Dilaudid FOOD SPECIALIST
# Right BKA stump with superficial scab over bony prominence, likely due to pt manipulating/picking the area
Possible revision of stump, TBD by vascular surgery
Cont to cover right BKA stump
# IDDM
# Type 1 diabetes with neuropathy
HgbA1C 6.9% on 03/21/25
Hypoglycemia noted 04/23, adjust Lantus to 5 units BID, use ISS for meal time insulin coverage
Continue gabapentin, continue duloxetine for neuropathy
# AMBER on CKD 3
SCr 1.8 today, from baseline 1.2
DOCUMENT CONTROLLER torsemide on hold
Cont gentle IVF
Monitor SCr
Other chronic medical conditions:
# CAD status post PCI
Cont ASA
Resume DOCUMENT CONTROLLER Plavix when OK with vascular surgery
# CHF
# Hypertension
Cont home BP meds with holding parameter
# Guillain-Potts� syndrome/CIDP, plasma exchange q 2 months
# PAD status post right BKA
DVT ppx: Lovenox SQ
FC
total time 51 min
--- NOTE | 2025-04-23 14:38 | W.PN.ID1 ---
Date of Service
Date of Service: April 23, 2025
Today's Communication
If stump looks clean, can dc further daptomycin and ceftaz/avibactam.
Assessment / Plan
# Osteomyelitis Left foot TMA site wound dehiscence with necrosis
- Failed multiple revisions
- 04/21/25 s/p left BKA
- Vascular to change dressing.
If stump looks clean, can dc further daptomycin and ceftaz/avibactam.
# Right BKA stump superfical scab over bony prominence.
- Possible revision of stump
# Leukocytosis post-op
- Resolved
# AMBER-postop
# Allergies: PCN, cephalosporin, meropenem, Vancomycin; tolerated Avyzaz
# Incarcerated
Conditions CHIROPRACTIC DOCTOR
Diabetes mellitus
CAD status post PCI
CHF
hx CKD3
Hypertension
Guillain-Potts� syndrome/CIDP, plasma exchange q 2 months
PAD status post right BKA
Left hallux and second toe osteomyelitis status post amputation and debridement of left heel ulcer January 21, 2025
Left foot TMA, I+D left heel wound and bone biopsy of heel (neg osteo) Mar 08, 2025 (path surgical cure)
Chief Complaint
-: Other (Foot wound)
Vital Signs / Physical Exam
Vital Signs
Vital Signs
Temp Pulse Resp BP Pulse Ox
98.2 F 88 16 144/70 96
04/23/25 07:34 04/23/25 07:34 04/23/25 08:00 04/23/25 07:34 04/23/25 09:00
Physical Exam
Constitutional: No Acute Distress
Cardiovascular: Regular Rate and S1/S2
Gastrointestinal: Soft, Non Tender and Non Distended
Extremities: Negative Edema
Wound: Other (Left BKA post-op dressing dry. )
Neurological: AO x 3
Objective Data
Lab Data
Lab Results
04/23/25 10:01
04/23/25 10:01
ESR Cancelled 04/17/25 10:48
PT 13.7 Sec (11.4-14.6) 04/17/25 06:33
INR 1.02 04/17/25 06:33
APTT 33.8 Sec (23.4-35.0) 04/17/25 06:33
Estimated Creat Clear 77 ml/min 04/23/25 10:01
Lactic Acid 0.8 mmol/L (0.7-2.0) 03/25/25 01:16
Total Bilirubin 0.4 mg/dl (0.2-1.3) 04/21/25 07:36
AST 13 U/L (17-59) L 04/21/25 07:36
ALT 10 U/L (0-50) 04/21/25 07:36
Alkaline Phosphatase 71 U/L (38-126) 04/21/25 07:36
Most recent labs reviewed.
Micro Results:
03/25/25 16:52 Fungal Culture - Preliminary
Foot - Left Anna albicans
04/13/25 16:07 Wound Culture - Final
Foot - Left Enterobacter cloacae
Gram Stain - Final
04/13/25 16:07 Anaerobic Culture - Final
Foot - Left NO ANAEROBES ISOLATED
04/04/25 16:30 Wound Culture - Final
Foot - Left Enterobacter cloacae
Gram Stain - Final
04/04/25 16:30 Anaerobic Culture - Final
Foot - Left NO ANAEROBES ISOLATED
03/31/25 10:51 Blood Culture - Final
Blood/Venous No Growth - Final Report
03/31/25 10:22 Blood Culture - Final
Blood/Venous No Growth - Final Report
03/25/25 09:33 Blood Culture - Final
Blood/Venous No Growth - Final Report
03/25/25 16:56 Wound Culture - Final
Foot - Left Staph aureus MRSA
Enterococcus faecalis - VRE
Gram Stain - Final
03/25/25 16:56 Anaerobic Culture - Final
Foot - Left NO ANAEROBES ISOLATED
03/25/25 16:52 Wound Culture - Final
Foot - Left Staph aureus MRSA
Enterococcus faecalis - VRE
Gram Stain - Final
03/25/25 16:52 Anaerobic Culture - Final
Foot - Left NO ANAEROBES ISOLATED
03/25/25 01:16 Blood Culture - Final
Blood/Venous No Growth - Final Report
03/27/25 10:35 Urine Culture - Final
Urine Anna albicans
03/24/25 12:51 Salmonella/Shigella Culture - Final
Feces/Stool No Salmonella, Shigella, Aeromonas or Plesiomonas species
isolated.
Campylobacter Culture - Final
No Campylobacter species isolated.
Shiga Toxin Test - Final
No E. coli Shiga Toxin 1 or 2 detected.
03/21/25 21:00 Blood Culture - Final
Blood/Venous No Growth - Final Report
03/21/25 21:00 Blood Culture - Final
Blood/Venous No Growth - Final Report
03/21/25 21:16 Wound Culture - Final
Foot - Left Enterococcus faecalis - VRE
Anna albicans
Gram Stain - Final
03/24/25 12:53 C. difficile GDH Antigen & Toxins - Final
Feces/Stool C. difficile antigen positive, toxin negative.
Clostridium difficile present, but toxin not detected.
Patient may be a carrier, colonized with nontoxinogenic
strain or the level of toxin in sample is below detection
limits. This information should be used in conjunction with
the patient's clinical history.
03/22/25 13:07 MRSA Screen - Final
Nose No Methicillin Resistant Staphylococcus aureus isolated.
[2025-04-23 15:21] VITALS: BP 133/68
[2025-04-23] MEDS: CUBICIN 16 MG IV (16:07)
[2025-04-23 17:12] LABS: Glucose - Point of Care 203 mg/dl (70-99)
[2025-04-23] MEDS: NOVOLOG FLEXPEN-LOW RESISTANCE 2 UNITS SC (17:20)
[2025-04-23] MEDS: LOVENOX 40 MG SC (17:21)
--- NOTE | 2025-04-23 18:40 | PTCARENOTE ---
attempted education R/T GINNER pump. Resident spoke with pt earlier in the shift, encouraging less use of GINNER pump with plan to d/c. Pt expressed understanding, order was renewed. at end of shift evaluation pump indicates pt attempted 238 times to
obtain bolus with 51 successful administrations. pt reminded he should be weaning, plan is for GINNER to d/C tomorrow. Pt also education on deep breathing and provided IS. CB in reach
[2025-04-23 20:55] LABS: Glucose - Point of Care 222 mg/dl (70-99)
[2025-04-23] MEDS: LANTUS 0.05 UNITS SC (21:15)
[2025-04-23] MEDS: REMERON 30 MG PO (21:15)
[2025-04-23 23:00] VITALS: BP 132/82
[2025-04-23 23:54] VITALS: PULSE 86
--- NOTE | 2025-04-24 01:09 | PTCARENOTE ---
pt desating down in to the 40s on continuous pulse ox. Pt placed on 2L nasal canula with little improvement. O2 increased to 4L and still very little improvement (pt only reaching low 80s on pulse ox with continued dips to the 40s). WAFER MOUNTER Ross
notified and CPAP ordered placed. Respiratory therapist at bedside to place pt on CPAP. Pt SPO2 improved to 98% with CPAP. Will continue to monitor
[2025-04-24 03:59] VITALS: PULSE 86
[2025-04-24 06:00] VITALS: BMI 34.0
[2025-04-24 07:43] VITALS: BP 132/75
[2025-04-24] MEDS: TYLENOL PO (09:07)
[2025-04-24 09:13] LABS: Glucose - Point of Care 211 mg/dl (70-99)
[2025-04-24] MEDS: PROTONIX 40 MG PO (09:13)
[2025-04-24] MEDS: COREG 25 MG PO ×2 (09:13→21:23)
[2025-04-24] MEDS: CYMBALTA DELAYED RELEASE 30 MG PO (09:13)
[2025-04-24] MEDS: FEOSOL 325 MG PO ×2 (09:13→21:23)
[2025-04-24] MEDS: NEURONTIN 300 MG PO ×3 (09:14→21:24)
[2025-04-24] MEDS: RANEXA EXTENDED RELEASE 1000 MG PO ×2 (09:14→21:24)
[2025-04-24] MEDS: ASPIR LOW (ENTERIC COATED) 81 MG PO (09:14)
[2025-04-24] MEDS: IMDUR (EXTENDED RELEASE) 60 MG PO (09:15)
--- NOTE | 2025-04-24 09:26 | W.PN.UPDATE ---
Update Note
Progress Note Update
I saw and evaluated the patient with the residents
A/P:
# Left foot Osteomyelitis with TMA site wound dehiscence with necrosis
Failed multiple revisions
s/p left BKA 04/21/25
Per ID, if stump looks clean during dressing change, can dc daptomycin and ceftaz/avibactam, and plan for DC
Hgb at 7.3 today, cont to monitor Hgb closely
Stop Dilaudid MAPLE PRODUCTS SUPERVISOR and switch to Dilaudid IV PRN
# Hypoactive delirium likely due to opiate overdose
Narcan x1 dose 04/24
Stop Dilaudid MAPLE PRODUCTS SUPERVISOR and switch to Dilaudid IV PRN
# Right BKA stump with superficial scab over bony prominence, likely due to pt manipulating/picking the area
Possible revision of stump, TBD by vascular surgery
Cont to cover right BKA stump
# IDDM
# Type 1 diabetes with neuropathy
HgbA1C 6.9% on 03/21/25
Hypoglycemia noted 04/23, adjust Lantus to 5 units BID, use ISS for meal time insulin coverage
Continue gabapentin, continue duloxetine for neuropathy
# AMBER on CKD 3
SCr 1.8 today, from baseline 1.2
CORN MILLER torsemide on hold
Cont gentle IVF
Monitor SCr
Other chronic medical conditions:
# CAD status post PCI
Cont ASA
Resume CORN MILLER Plavix when OK with vascular surgery
# CHF
# Hypertension
Cont home BP meds with holding parameter
# Guillain-Potts� syndrome/CIDP, plasma exchange q 2 months
# PAD status post right BKA
DVT ppx: Lovenox SQ
FC
DW Pharm
total time 51 min
--- NOTE | 2025-04-24 09:38 | PTCARENOTE ---
pt's OCULAR PATHOLOGIST pump orders changed. 2 RNs visualized change on OCULAR PATHOLOGIST pump, work list assessment completed to reflect new lock out and max
[2025-04-24] MEDS: NOVOLOG FLEXPEN-LOW RESISTANCE 2 UNITS SC (10:19)
[2025-04-24] MEDS: LANTUS 0.05 UNITS SC ×2 (10:20→21:23)
[2025-04-24] MEDS: NARCAN 0.04 MG IV (10:56)
[2025-04-24] MEDS: NSS (PRESERVATIVE FREE) 0.9 ML IV (10:57)
--- NOTE | 2025-04-24 11:01 | PTCARENOTE ---
s/w attending and resident d/t sedation. pt is lethargic, but easily aroused, 99%, still using Cpap, states he is sleepy. narcan and decrease BODY AND FRAME TECHNICIAN further.
[2025-04-24 11:12] LABS: Hematocrit 23.3 % (39.0-52.0); Hemoglobin 7.3 g/dL (13.0-18.0); Mean Corp Hgb Conc. 31.3 g/dL (33.0-37.0); Mean Corpuscular Volume 91.7 fL (80.0-94.0); Platelet Count 422 10^3/uL (130-400); Red Cell Dist. Width 15.0 % (11.5-14.5)
--- NOTE | 2025-04-24 11:20 | W.PN.HOSP.TC ---
Today's Communication/Plan
-
1 dose Narcan
Wean off of CPAP as possible
If no improvement consider further work up
Lantus BID 5 units with Low ISS ffor now
Assessment / Plan
Assessment / Plan
Assessment - 29-year-old male with PMHx significant for IDDM, type I, CIDP, GERD, stage IIIa CKD, history of recurrent osteomyelitis with BKA, GERD, TMA, hypertension, CAD s/p CABG, presents to the hospital for evaluation of acute blood loss anemia
from TMA wound dehiscence.
# Acute on chronic anemia-
from left foot TMA site with wound dehiscence.
S/p 9 units blood transfusion since admission on 03/22/2025
most recent blood transfusion on 04/16/25
Hemoglobin stable at 7.8, Trend H&H transfuse if less than 7
Monitor for transfusion associated complications.
Likely a confluence of autoimmune anemia, anemia of chronic disease and acute blood loss, currently on iron supplementation.
Positive Candie test, LDH at 171, 1+ BOBBY IgG, stool heme test sent PT/PTT within normal limits.
Differential diagnosis at this point include drug-induced immune hemolytic anemia, delayed hemolytic transfusion reaction or cold agglutinin disease.
# Opioid intoxication with no overdose-
Respiratory depression overnight, sluggish pupils but no pinpoint pupils.
Somnolent but easily arousable, patient made 300 attempts on HORSE RACE STARTER pump through last 24 hours.
Given 1 round of Narcan, changed pain pump to q. 20 minutes lock, patient at lowest rate.
Will switch to every 30 minutes lock in the afternoon and will turn off the pain pump in the night.
# acute osteomyelitis of left foot,
Recurrent heel debridements.
04/13 s/p lisfranc disarticulation and heel wound debridement, with OR cultures positive for Enterobacter, and bone pathology from 04/13 showed chronic osteomyelitis.
Left BKA on 04/20/2025 , with vascular surgeon, appreciate ID, vascular surgery, orthopedics help in management.
Currently on HORSE RACE STARTER, i told the patient that it would be discontinued by tomorrow night, and currently he should be doing 20 min, and then in the evening switch to 30 minutes.
History of left foot TMA on 03/25 after heel debridement s/p I+D, removal of necrotic bone at amp site, I+D heel wound to subcutaneous tissue; wound vac placed, cultures showed VRE and MRSA. And pathology showed focal acute osteomyelitis and
detached fragment of fibrinopurulent exudate.
Initial amputation of left forefoot transmetatarsal done on 03/09/2025
Patient readmitted for suspicious wound infection and osteomyelitis on 03/22, postdebridement on 03/25 and 04/04
On 04/04/2025-revision wound debridement, with cultures yielding Enterobacter cloacae, MDR resistant, bone pathology pending. Patient could not tolerate wound VAC. Podiatry notes reviewed, appreciate recommendations, more surgery pending the bone
pathology results. ID on board, vascular surgery on board. Continue medications- Daptomycin day ceftazidime avibactam-20, ID recommends discontinuation if stump looks clean. Awaiting vascular surgery response, touch based with vascular
surgery.
Vascular ultrasound with no significant arterial stenosis within the distal SFA/popliteal artery and possible infrapopliteal disease
Wound cultures showed MRSA, VRE.
No growth in blood cultures.
ID on board, podiatry on board, vascular surgery on board.
pathology on Left second metatarsal bone performed on 03/25/2025 - on 03/28/2025 showed focal acute osteomyelitis and detached fragment of fibrinopurulent exudate.
Pathology of left foot metatarsals sent on 04/05/2025-showed chronic osteomyelitis.
Podiatry recommends nonweightbearing to the left lower extremity and continued elevation of the extremity on 2-3 pillows
# BKA-left-
Currently on HORSE RACE STARTER, advised the patient to switch to 20 minutes and then to 30 minutes, taper by tomorrow night.
No more than 04/24/2025-HORSE RACE STARTER pump
# Diarrhea-
Likely antibiotic associated
C. difficile testing in the past-not conclusive.
# Itchy rash-
Switch to oral Benadryl.
# AMBER on CKD stage IIIa-
Improving renal function, serum creatinine worsening again, at 1.9 today.
Torsemide held, 2kg weight gain over 24 hours, about 4kg since torsemide held.
In the light of HFpEF, IV fluid rate reduced to 20.
Resume torsemide once PCR discontinued.
Trend serum creatinine.
Monitor carefully for blood pressure and volume overload.
# CAD s/p PCI-
# Angina-
Plavix and aspirin held in light of recurrent bleeding.
Statin held for 31 days, patient on daptomycin.
Continue carvedilol and ranolazine.
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
Diabetes education and management on board.
Continue Lantus, NovoLog and sliding scale. (Home dose-Lantus 30 twice daily, NovoLog 10 units)
Recurrent hypoglycemic episodes in the a.m. today, Lantus 25 units in the a.m. held, all NovoLog held for the day, p.m. Lantus dose changed to 5 units, patient was put on moderate resistance sliding scale for rest of the day on 04/23/2025.
Labile blood sugars, adjusted Lantus to 5 units twice daily with lower assistance sliding scale.
Aspart held. -Day 2
Will adjust blood sugars as needed in the a.m. tomorrow.
Overnight additional insulin requirement minimal.
Hemoglobin A1c at 8.1 as of 02/04.
Accu-Cheks AM and at bedtime
Diabetic diet, follow blood glucose and electrolytes.
Monitor for hypoglycemic episodes.
Continue duloxetine and gabapentin for diabetic neuropathy.
# Essential hypertension-
Continue Imdur and Coreg
# Urinary retention-
Likely from diabetic autonomic dysfunction, neuropathic bladder.
Baseline patient self caths.
Not on Castillo anymore.
# CIDP-
Arrange for Plex outpatient.
# GERD-
Continue pantoprazole.
# Anxiety/depression-
Continue mirtazapine.
# DVT prophylaxis-
SCDs
# CODE STATUS-
Full code
Imaging and procedures-
03/21/2025-left foot x-ray-
Status post amputation at the level of the first through fifth proximal metatarsal bones.
No radiographic evidence for osteomyelitis.
03/23/2025-B/L LLE arterial ultrasound-
1. Ankle-brachial indices and toe brachial indices could not be measured due to prior amputations.
2. No focal significant arterial stenosis demonstrated on the left side on duplex imaging. Spectral Doppler waveform analysis is suggestive of disease within the distal SFA/popliteal artery. Infrapopliteal disease may also be present.
3. Multiple lymph nodes are seen within the left thigh, which may be reactive.
-03/31/2025-left LLE PVS -no DVT
03/03/2025-initial amputation of left transmetatarsal
03/25/2025-debridement of infected left metatarsal amputation
04/04/2025-revision debridement of left heel wound with calcaneal biopsy.
Anticipated Discharge: > 48 hours
Subjective/Interval History
-
Date of Service: April 24, 2025
Overnight, patient made about 300 attempts on his HORSE RACE STARTER pump. He had respiratory depression and was put on CPAP with 4 L nasal cannula flow. Today patient patient is somnolent but easily arousable, and has not been awake enough to use his pain pump
yet. Overnight his insulin requirement was only 4 units.
Objective Data
-
Labs:
Laboratory Results
04/24/25
10:44
WBC 9.6
Hgb 7.3 L
Hct 23.3 L
Plt Count 422 H
Sodium Pending
Potassium Pending
Chloride Pending
Carbon Dioxide Pending
BUN Pending
Creatinine Pending
Glucose Pending
Calcium Pending
Vital Signs:
Vital Signs
Temp Pulse Resp BP Pulse Ox
97.8 F 89 12 132/79 96
04/24/25 07:43 04/24/25 09:13 04/24/25 09:36 04/24/25 09:13 04/24/25 09:36
I&O
04/23/25 04/24/25 04/25/25
06:59 06:59 06:59
Intake Total 3064 / 3064
Output Total 1600 / 1600
Balance 1464 / 1464
Review of Systems
-
Unable to obtain full review of systems at this time due to: Other (Patient somnolent)
Physical Exam
-
General: Other (Somnolent, on CPAP with 4 L oxygen flow.)
HEENT: Moist Mucous Membranes and PERRLA (Sluggish pupil reaction, no pinpoint pupils.)
Respiratory: Clear to Auscultation; Negative Wheezes, Rales, Rhonchi or Crackles
Cardiac: Regular Rhythm and S1/S2; Negative Murmur, Rub or Gallop
GI: Soft, Nontender, Nondistended and Normal Bowel Sounds
Genito-urinary: No Costovertebral Tender
Musculoskeletal: No Clubbing, No Cyanosis and Other (Stump dressings, bilateral lower extremities-intact. Dressing not changed, hence unclear if patient had dry's stump without discharge.)
Skin: Warm
Neuro: No Motor Deficits
Psych: Calm
Data Reviewed
-
Labs: Labs Reviewed by me and Discussed with Physician
[2025-04-24 11:23] LABS: Albumin 3.0 g/dl (3.5-5.0); Blood Urea Nitrogen 41 mg/dl (9-20); Calcium 7.8 mg/dl (8.4-10.2); Carbon Dioxide 24 mmol/L (22-30); Chloride 104 mmol/L (98-107); Estimated Creatinine Clearance 79 ml/min; Glucose 185 mg/dl (70-99); Potassium 4.3 mmol/L (3.5-5.1); Sodium 135 mmol/L (135-145); eGFR 51.61
[2025-04-24] MEDS: TYLENOL 1000 MG PO ×2 (12:38→18:06)
[2025-04-24 12:39] LABS: Glucose - Point of Care 158 mg/dl (70-99)
[2025-04-24] MEDS: NOVOLOG FLEXPEN-LOW RESISTANCE 1 UNITS SC (13:08)
--- NOTE | 2025-04-24 13:42 | PTCARENOTE ---
12:30 d/c ROBOTYPE OPERATOR pump, remaining dilaudid wasted with 2nd RN. Pt is now more awake and alert. 98%RA 12 rr/min
[2025-04-24 15:15] VITALS: BP 111/58
--- NOTE | 2025-04-24 15:46 | PTCARENOTE ---
vascular at bedside, dressing changed
[2025-04-24] MEDS: CUBICIN 16 MG IV (16:05)
[2025-04-24 16:10] LABS: Glucose - Point of Care 258 mg/dl (70-99)
[2025-04-24] MEDS: NOVOLOG FLEXPEN-LOW RESISTANCE 3 UNITS SC (18:05)
[2025-04-24] MEDS: LASIX 20 MG IV (18:06)
[2025-04-24] MEDS: LOVENOX 40 MG SC (18:06)
--- NOTE | 2025-04-24 18:40 | W.PN.VS ---
Today's Communication / Plan
-
no changes
Assessment/Plan
-
POD 3 LEFT BKA
Daily andriy wrap
JOB COACH/JOB DEVELOPER/pain control
possible revision of RLE
Subjective Data
-
Date of Service: April 24, 2025
needed narcan for resp depression. no pain at the moment
Objective Data
-
Vital Signs
Temp Pulse Resp BP Pulse Ox
98.5 F 92 18 111/58 97
04/24/25 15:15 04/24/25 15:15 04/24/25 15:15 04/24/25 15:15 04/24/25 15:15
Intake and Output
04/23/25 04/24/25 04/25/25
06:59 06:59 06:59
Intake Total 3064 / 3064
Output Total 1600 / 1600
Balance 1464 / 1464
Intake:
Oral fluids 2410 / 2410
IV fluids (Total) 530 / 530
IV piggybacks 124 / 124
Output:
Urine, Castillo 500 / 500
Urine, Voided 1100 / 1100
Lab Results
04/24/25 10:44
04/24/25 10:44
Calcium 7.8 mg/dl (8.4-10.2) L 04/24/25 10:44
Total Bilirubin 0.4 mg/dl (0.2-1.3) 04/21/25 07:36
AST 13 U/L (17-59) L 04/21/25 07:36
ALT 10 U/L (0-50) 04/21/25 07:36
Alkaline Phosphatase 71 U/L (38-126) 04/21/25 07:36
Total Protein 6.5 g/dl (6.3-8.2) 04/21/25 07:36
Albumin 3.0 g/dl (3.5-5.0) L 04/24/25 10:44
Physical Exam
-
Left BKA - incision C/D/I
Right BKA - ulceration over tibia
[2025-04-24 20:50] VITALS: BP 161/89
[2025-04-24 20:55] LABS: Glucose - Point of Care 301 mg/dl (70-99)
[2025-04-24] MEDS: DILAUDID 0.5 MG IV (21:25)
[2025-04-24] MEDS: REMERON 30 MG PO (21:25)
[2025-04-24 23:30] VITALS: BP 138/75
[2025-04-25] MEDS: TYLENOL 1000 MG PO ×5 (00:32→23:55)
[2025-04-25 04:14] LABS: Glucose - Point of Care 399 mg/dl (70-99)
[2025-04-25] MEDS: NOVOLOG FLEXPEN 5 UNITS SC (04:52)
[2025-04-25] MEDS: DILAUDID 0.5 MG IV ×2 (04:53→22:27)
[2025-04-25 06:00] VITALS: BMI 32.4
--- NOTE | 2025-04-25 07:30 | W.PN.HOSP.TC ---
Today's Communication/Plan
-
Patient tolerated his Left BKA and is recovering postoperatively. POD 4 on 04/25/24 for L BKA
Wound care as per podiatry and surgery
Continue Holding anticoagulants postoperatively - will resume near discharge date
As per ID recommendations - Stump looks clean, can discontinue Daptomycin and Ceftazidime/Avibactam and plan for DC
Lantus adjusted to 20 units, Aspart adjusted to 8 units at breakfast, lunch and dinner.
One dose of Lantus 20 units and Aspart 8 units given on 04/25/25
1 PRBC given for ongoing anemia
PT/OT eval and treat - preparation for DC planning
Assessment / Plan
Assessment / Plan
HPI: 29-year-old male with PMHx significant for insulin-dependent type 1 diabetes mellitus, CIDP, Hypertension, GERD, CKD stage IIIA, history of osteomyelitis and TMA is admitted to the hospital for evaluation and management of acute blood loss
anemia from TMA wound dehiscence.
Assessment/Plan:
-Left foot TMA site with wound dehiscence:
-History of left foot TMA on 03/08:
-Acute bleed: from site of L TMA and Heel Debridement (03/25 and 04/08)
-Acute blood Loss Anemia secondary to the above:
Vascular ultrasound showed no significant arterial stenosis on the left however Doppler waveforms suggest disease within the distal SFA/popliteal artery and infrapopliteal disease may also be present as per arterial studies. Multiple lymph nodes
were also seen in the left thigh which may be reactive.
Wound cultures grew MRSA, VRE
Blood cultures did not show any growth
Underwent ultrasound of the left lower extremity did not show any evidence of DVT
Iron supplementation continue
Continue monitoring hemoglobin daily and transfuse as needed to maintain hemoglobin greater than 7
Status postdebridement 03/25.
Pathology results came back which showed focal acute osteomyelitis and detached fragment of fibrino-purulent exudate
Patient underwent his open TMA revision and wound debridement on 04/04 -there was significant drainage postoperatively - pathology positive for acute and chronic osteomyelitis
Wound culture from 04/04 positive for Enterobacter Cloacae
Continue antibiotics as per ID recommendations
Podiatry recommends nonweightbearing to the left lower extremity and continued elevation of the extremity on 2-3 pillows
Continue Daptomycin (currently on day 21 on 04/14/2025)
Continue ceftazidime/avibactam 1250 mg (Day 9 on 04/14/25) as per infectious diseases recommendations
Patient's lab work on the morning of 04/07/2025 had a hemoglobin at 7.1 with a hematocrit of 20.7�repeat H&H ordered which was 6.7 - 1 PRBC ordered on 04/07/25
Podiatry has tentatively planned for revision surgery of the L foot after pathology returns from most recent debridement on 04/06/25
Patient had an episode of acute blood loss on 04/08/2025 where a large amount of blood was lost from his foot wound. 1 PRBC given on 04/08/25
Scheduled for OR with podiatry for debridement vs lisfranc disarticulation on 04/13/25 - procedure tolerated well
Patient's Hgb is 7.5 on 04/15/25 - will continue to follow - if <7 then will transfuse PRBCs
Patient received 1 unit of PRBCs on 04/16/2025
Continue Holding anticoagulants postoperatively - will resume near discharge date
Appreciate hematology recommendations -they are under the impression that the patient is suffering from some element of WILBER and recommended continuing with oral iron supplement.
We have initiated anemia workup with LDH at 171, haptoglobin pending, Positive Candie test, 1+ BOBBY IgG, stool heme test, and PT/PTT were within normal limits. Based on positive Candie test, consider drug-induced immune hemolytic anemia, delayed
hemolytic transfusion reaction, or cold agglutinin disease
Abdominal ultrasound found that the liver and spleen were within normal limits in size without hepatosplenomegaly. No ascites. Tiny gallstones without sonographic features of acute cholecystitis. No bile duct dilatation.
Most recent pathology from left foot metatarsal was positive for chronic osteomyelitis with bone remodeling
Patient tolerated his Left BKA and is recovering postoperatively. POD 4 on 04/25/24 for L BKA
As per ID recommendations - Stump looks clean, can discontinue Daptomycin and Ceftazidime/Avibactam and plan for DC
-Right BKA: Stable/monitoring
gauze and wrapped dressing provided to avoid further irritation to the site. Patient may be accidentally irritating the area.
-Hypoactive delirium likely due to opiate overdose: Improving
Narcan x1 dose 04/24
Stopped Dilaudid MEDICAL SCIENCE LIAISON and switch to Dilaudid IV PRN
Continue Dilaudid
-Hyperkalemia: Resolved
Patient was hyperkalemic with postassium of 5.5 on 04/14/25
Lokelma given, Insulin adjusted to home dose.
Repeat potassium on 04/15/25 is 4.9 - within normal limits.
Potassium was 5.7 on 04/18/2025�Lokelma given�Will repeat with BMP
Torsemide has been resumed
-Itchy rash:
Continue IV Benadryl
-Diarrhea:
Check stool sample for C. difficile if loose stool continues
- Urinary retention:
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
Patient self caths
Castillo catheter has been discontinued. Patient will be able to self cath as he usually does this in the outpatient setting
- History of ASCVD
- Status post stent palcement
- Chest pain:
EKG/troponin negative for any acute process
ASA held
Plavix 75mg held
Statin held
Continue Ranolazine
Continue Carvedilol
Type 1 diabetes with Hyperglycemia and neuropathy: Monitoring
A1C = 8.1% in January. Hba1c on 03/21/25 was 6.9 indicating improvement in overall glycemic control
Diabetes SALES AND LEASING CONSULTANT consulted, recommendations appreciated
Continue gabapentin, continue duloxetine
Lantus adjusted to 20 units, Aspart adjusted to 8 units at breakfast, lunch and dinner.
One dose of Lantus 20 units and Aspart 8 units given on 04/25/25
-AMBER on CKD IIIa: Unresolved
Continue to monitoring creatinine, has been hovering around 1.4/1.5
Urine studies show pre-renal cause, likely from hypovolemic state
Continued elevated creatinine level at 1.6 on 04/04/2025
Continue monitoring BMP.
Torsemide held - will resume near discharge and upon improvement of Cr
IV fluid support
-GERD
Continue Pantoprazole
-Chronic inflammatory demyelinating polyneuropathy:
Continue current meds, will need to arrange for PLEX in outpatient setting once discharged
FULL CODE STATUS
Stress Ulcer Prophylaxis: Pantoprazole
DVT Prophylaxis: SCDs
Imaging:
-Left foot x-ray conducted on 03/21/2025:
Status post amputation at the level of the first through fifth proximal metatarsal bones.
No radiographic evidence for osteomyelitis.
- Bilateral lower extremity arterial ultrasound exam conducted on 03/23/2025:
1. Ankle-brachial indices and toe brachial indices could not be measured due to prior amputations.
2. No focal significant arterial stenosis demonstrated on the left side on duplex imaging. Spectral Doppler waveform analysis is suggestive of disease within the distal SFA/popliteal artery. Infrapopliteal disease may also be present.
3. Multiple lymph nodes are seen within the left thigh, which may be reactive.
-Peripheral vascular ultrasound of the left lower extremity conducted on 03/31/2025:
No evidence of DVT of the left lower extremity.
Procedures:
03/03/2025-initial amputation of left transmetatarsal
03/25/2025-debridement of infected left metatarsal amputation
04/04/2025-revision debridement of left heel wound with calcaneal biopsy.
Anticipated Discharge: 24 - 48 hours
Subjective/Interval History
-
Date of Service: April 25, 2025
Met with the patient at the bedside. He was sleeping when I arrived and he woke up with I introduced myself. Patient appears to be sweating and has perspiration on his brow. Slightly flushed. Patient states that his weekend was not the greatest
and is upset with hospital staff for giving him Narcan. Patient does not believe that he needed Narcan and that he is 'hurting' now. Patient denies any nausea, vomiting, or diarrhea. Patient denies any shortness of breath, chest tightness, or
chest pain. Patient did not note that his left BKA wound was slightly oozing blood.
Objective Data
-
Labs:
Labs
04/25/25 07:16
04/25/25 07:16
Vital Signs:
Vital Signs
Temp Pulse Resp BP Pulse Ox
98.5 F 87 16 123/71 97
04/25/25 07:55 04/25/25 07:55 04/25/25 07:55 04/25/25 07:55 04/25/25 07:55
I&O
04/24/25 04/25/25 04/26/25
06:59 06:59 06:59
Output Total 2350 / 2350
Balance -2350 / -2350
Review of Systems
-
History Source: Patient
Constitutional: Reports Fatigue
EENT: Reports No Symptoms Reported
Respiratory: Reports No Symptoms
Cardiac: Reports No Symptoms
Abdomen/GI: Reports No Symptoms
Breast: Reports No Symptoms
Musculoskeletal: Reports Joint Pain (Left Lower Limb) and Muscle Pain (Left Lower Limb)
Neuro: Reports No Symptoms
Endocrine: Reports No Symptoms
Physical Exam
-
General: Well Developed, Well Nourished, Comfortable, Conversant and Obese
HEENT: Normocephalic and Atraumatic
Respiratory: Clear to Auscultation and Non Labored Respirations; Negative Wheezes, Rales, Rhonchi or Crackles
Cardiac: Regular Rhythm and S1/S2; Negative Murmur, Calf Tenderness or Tachycardic
GI: Soft, Nontender, Nondistended and Normal Bowel Sounds; Negative Organomegaly
Genito-urinary: No Costovertebral Tender, Clear Urine and Castillo
Musculoskeletal: No Clubbing, No Cyanosis and Other (R BKA with superficial scab/ulcer and no infection. L BKA with bloody dressing)
Skin: Warm and Dry; Negative Rash or Ulcers
Neuro: Awake, Alert, Oriented, AO x 3 and No Sensory Deficits
Psych: Calm
[2025-04-25 07:45] LABS: Hematocrit 23.0 % (39.0-52.0); Hemoglobin 7.2 g/dL (13.0-18.0); Mean Corp Hgb Conc. 31.3 g/dL (33.0-37.0); Mean Corpuscular Volume 92.0 fL (80.0-94.0); Platelet Count 455 10^3/uL (130-400); Red Cell Dist. Width 15.2 % (11.5-14.5)
[2025-04-25 07:54] LABS: ALT (SGPT) 11 U/L (0-50); AST (SGOT) 11 U/L (17-59); Albumin 2.8 g/dl (3.5-5.0); Alkaline Phosphatase 77 U/L (38-126); Blood Urea Nitrogen 42 mg/dl (9-20); Calcium 8.2 mg/dl (8.4-10.2); Carbon Dioxide 26 mmol/L (22-30); Chloride 106 mmol/L (98-107); Estimated Creatinine Clearance 81 ml/min; Glucose 343 mg/dl (70-99); Potassium 4.6 mmol/L (3.5-5.1); Sodium 139 mmol/L (135-145); Total Protein 5.9 g/dl (6.3-8.2); eGFR 55.27
[2025-04-25 07:55] VITALS: BP 123/71
[2025-04-25 08:00] LABS: Glucose - Point of Care 343 mg/dl (70-99)
--- NOTE | 2025-04-25 08:08 | PN.DE.MGMTRT ---
Insulin Management
- -
04/25/2025: Diabetes Management Follow up
Patient admitted from [facility] 03/21 with c/o bleeding L heel wound. PMH type 1 diabetes, R BKA, L toe amputation, recent debridement L heel, [place], CHF, HTN, CKD, CT, recent admission 01/21 and 03/05 s/p
transmetatarsal L amputation and debridement. Prior to admission was receiving Lantus 30 units BID with Humalog insulin ss AC. A1C on admission 6.9%, (improved from 8.1%). Cr 1.1, eGFR > 60 today.
Prior to incarceration was living in a care home per patient he will return there.
Patient awake, alert, oriented, sitting up in bed, c/o stump pain, able to discuss diabetes care plan.
POD# 4 s/p Left BKA, doing well, off VETERINARY TECHNOLOGY INSTRUCTOR pump. Hgb stable 7.2, Cr 1.7, eGFR 55.27 today.
Pt had an episode of Hypoglycemia on 04/23, his mealtime insulin was discontinued and Lantus dose was reduced to 5 units.
He is noted for elevated glucose overnight. HS glucose was 301, pt was given 5 units of Lantus. 4AM glucose trended up to 399, Nurse reports that pt received 5 units of NovoLog and 250 ml of orange juice. His FBG is 343 V, 343 POC this AM.
Will increase Lantus to 20 units BID and NovoLog AC to 8 units. Cont low corrective with meals.
Will cont to follow and adjust insulin dose if necessary.
Discussed with Nurse and Dr. Perez
Diabetes History
- -
Type of Diabetes: 1
Pre-Admission Diabetes Regimen
04/24/25 04/25/25
10:44 07:16
Creatinine 1.8 H 1.7 H
Lab Results
Hemoglobin A1c 6.9 % (4.0-5.6) H 03/22/25 06:24
Insulin Pump Settings
IP Diabetes Regimen
10/07/0704/24/25 04/24/25
09:11 10:44 12:38
Glucose 185 H
POC Glucose 211 H 158 H
04/24/25 04/24/25 04/25/25
16:09 20:53 04:12
Glucose
POC Glucose 258 H 301 H 399 H
04/25/25 04/25/25
07:16 07:58
Glucose 343 H
POC Glucose 343 H
Meal type: Dinner
Meal type: Lunch
Amount consumed: 75%
Amount consumed: 75%
Patient Education
[2025-04-25] MEDS: NOVOLOG FLEXPEN-LOW RESISTANCE 4 UNITS SC (08:37)
[2025-04-25] MEDS: RANEXA EXTENDED RELEASE 1000 MG PO ×2 (08:38→20:56)
[2025-04-25] MEDS: FEOSOL 325 MG PO ×2 (08:41→20:56)
[2025-04-25] MEDS: NEURONTIN 300 MG PO ×3 (08:41→20:56)
[2025-04-25] MEDS: ASPIR LOW (ENTERIC COATED) 81 MG PO (08:41)
[2025-04-25] MEDS: IMDUR (EXTENDED RELEASE) 60 MG PO (08:41)
[2025-04-25] MEDS: CYMBALTA DELAYED RELEASE 30 MG PO (08:41)
[2025-04-25] MEDS: PROTONIX 40 MG PO (08:41)
[2025-04-25] MEDS: COREG 25 MG PO ×2 (08:41→20:56)
[2025-04-25] MEDS: LANTUS 0.05 UNITS SC (08:43)
--- NOTE | 2025-04-25 09:22 | W.PN.UPDATE ---
Update Note
Progress Note Update
I saw and evaluated the patient with the residents
A/P:
# Left foot Osteomyelitis with TMA site wound dehiscence with necrosis
Failed multiple revisions
s/p left BKA 04/21/25
stump looks clean, DCed further Abx daptomycin and ceftaz/avibactam
Hgb at 7.2 today, transfuse additional unit PRBC
cont to monitor Hgb closely
Stopped Dilaudid TAR DISTILLATION SUPERVISOR and switch to Dilaudid IV PRN
# Hypoactive delirium 04/24 likely due to opiate overdose
# Acute hypoxic respiratory insufficiency 2/2 above
s/p Narcan x1 dose 04/24
Stopped further Dilaudid TAR DISTILLATION SUPERVISOR and switch to Dilaudid IV PRN
Weaned back to RA
CXR unrevealing
# Right BKA stump with superficial scab over bony prominence, likely due to pt manipulating/picking the area
Possible outpt revision of stump
# IDDM
# Type 1 diabetes with neuropathy
HgbA1C 6.9% on 03/21/25
Hypoglycemia noted 04/23, Lantus was decreased, adjusted to 20 units BID by DM REFRIGERATION OPERATOR
Aspart added back to 8 units AC by DM REFRIGERATION OPERATOR
Cont ISS for coverage
Continue gabapentin, continue duloxetine for neuropathy
# AMBER on CKD 3
SCr 1.7 today, from baseline 1.2
DIRT CONTRACTOR torsemide on hold
Monitor SCr
Other chronic medical conditions:
# CAD status post PCI
Cont ASA
Resume DIRT CONTRACTOR Plavix when OK with vascular surgery and when Hgb stable
# CHF
# Hypertension
Cont home BP meds with holding parameter
# Guillain-Potts� syndrome/CIDP, plasma exchange q 2 months
# PAD status post right BKA
DVT ppx: Lovenox SQ
FC
DW DM REFRIGERATION OPERATOR
total time 51 min
[2025-04-25] MEDS: NOVOLOG FLEXPEN 8 UNITS SC ×3 (09:41→17:42)
[2025-04-25] MEDS: LANTUS 0.2 UNITS SC ×2 (09:41→22:28)
--- NOTE | 2025-04-25 10:28 | W.PN.VS ---
Addendum entered and electronically signed by Jose Paris MD 04/25/25 10:34:
Seen and examined with GRIEF COUNSELLOR. Agree with findings as noted below. Left BKA site clean dry and intact. No hematoma. Skin flaps pink. Plan/as discussed and noted below. Right BKA ulceration. I had discussed with him that it might require revision.
However would favor outpatient follow-up. Would favor recovery from the left side before we address the right. Outpatient follow-up will be scheduled by us. We will sign off. Please call with questions.
Original Note:
Today's Communication / Plan
-
Patient seen and examined at bedside with Dr. Jose Paris M.D., below plan reviewed with attending.
Assessment/Plan
-
POD 4 LEFT BKA
Plan:
Daily andriy wrap
Would plan to schedule right BKA revision in the outpatient setting following healing from his recent left BKA
Outpatient follow-up placed in discharge instructions
We will sign off please call with questions or concerns
Subjective Data
-
Date of Service: April 25, 2025
Patient seen evaluated bedside, reports well-managed postoperative pain.
Objective Data
-
Vital Signs
Temp Pulse Resp BP Pulse Ox
98.5 F 87 16 123/71 97
04/25/25 07:55 04/25/25 07:55 04/25/25 07:55 04/25/25 07:55 04/25/25 07:55
Intake and Output
04/24/25 04/25/25 04/26/25
06:59 06:59 06:59
Output Total 2350 / 2350
Balance -2350 / -2350
Output:
Urine, Voided 1000 / 1000
Straight cath output 1350 / 1350
Lab Results
04/25/25 07:16
04/25/25 07:16
Calcium 8.2 mg/dl (8.4-10.2) L 04/25/25 07:16
Total Bilirubin 0.3 mg/dl (0.2-1.3) 04/25/25 07:16
AST 11 U/L (17-59) L 04/25/25 07:16
ALT 11 U/L (0-50) 04/25/25 07:16
Alkaline Phosphatase 77 U/L (38-126) 04/25/25 07:16
Total Protein 5.9 g/dl (6.3-8.2) L 04/25/25 07:16
Albumin 2.8 g/dl (3.5-5.0) L 04/25/25 07:16
Physical Exam
-
Left BKA - incision C/D/I, trino well-approximated
Right BKA - ulceration over tibia, stable
[2025-04-25] MEDS: DILAUDID 1 MG IV ×2 (11:46→18:02)
[2025-04-25 11:54] LABS: Glucose - Point of Care 283 mg/dl (70-99)
--- NOTE | 2025-04-25 12:31 | W.PN.ID1 ---
Date of Service
Date of Service: April 25, 2025
Today's Communication
DC abx's.
ID will sign off.
Assessment / Plan
# Osteomyelitis Left foot TMA site wound dehiscence with necrosis
- Failed multiple revisions
- 04/21/25 s/p left BKA
- Per Vascular stump incision clean, dry during dressing change 04/24.
- dc daptomycin and ceftaz/avibactam.
# Right BKA stump superficial scab over bony prominence.
- Possible revision of stump
# Leukocytosis post-op
- Resolved
# AMBER-postop, improving
# Allergies: PCN, cephalosporin, meropenem, Vancomycin; tolerated Avyzaz
# Incarcerated
ID will sign off.
Conditions [place]
Diabetes mellitus
CAD status post PCI
CHF
hx CKD3
Hypertension
Guillain-Potts� syndrome/CIDP, plasma exchange q 2 months
PAD status post right BKA
Left hallux and second toe osteomyelitis status post amputation and debridement of left heel ulcer January 21, 2025
Left foot TMA, I+D left heel wound and bone biopsy of heel (neg osteo) Mar 08, 2025 (path surgical cure)
Chief Complaint
-: Other (Foot wound)
Subjective / Review of Systems
No acute issues.
Vital Signs / Physical Exam
Vital Signs
Vital Signs
Temp Pulse Resp BP Pulse Ox
98.5 F 87 16 123/71 97
04/25/25 07:55 04/25/25 07:55 04/25/25 07:55 04/25/25 07:55 04/25/25 07:55
Physical Exam
Constitutional: No Acute Distress
Cardiovascular: Regular Rate and S1/S2
Pulmonary: Clear
Gastrointestinal: Soft, Non Tender and Non Distended
Extremities: Negative Edema
Wound: Other (Left BKA dressing dry.)
Neurological: AO x 3
Objective Data
Lab Data
Lab Results
04/25/25 07:16
04/25/25 07:16
ESR Cancelled 04/17/25 10:48
PT 13.7 Sec (11.4-14.6) 04/17/25 06:33
INR 1.02 04/17/25 06:33
APTT 33.8 Sec (23.4-35.0) 04/17/25 06:33
Estimated Creat Clear 81 ml/min 04/25/25 07:16
Lactic Acid 0.8 mmol/L (0.7-2.0) 03/25/25 01:16
Total Bilirubin 0.3 mg/dl (0.2-1.3) 04/25/25 07:16
AST 11 U/L (17-59) L 04/25/25 07:16
ALT 11 U/L (0-50) 04/25/25 07:16
Alkaline Phosphatase 77 U/L (38-126) 04/25/25 07:16
Most recent labs reviewed.
Micro Results:
03/25/25 16:52 Fungal Culture - Preliminary
Foot - Left Anna albicans
04/13/25 16:07 Wound Culture - Final
Foot - Left Enterobacter cloacae
Gram Stain - Final
04/13/25 16:07 Anaerobic Culture - Final
Foot - Left NO ANAEROBES ISOLATED
04/04/25 16:30 Wound Culture - Final
Foot - Left Enterobacter cloacae
Gram Stain - Final
04/04/25 16:30 Anaerobic Culture - Final
Foot - Left NO ANAEROBES ISOLATED
03/31/25 10:51 Blood Culture - Final
Blood/Venous No Growth - Final Report
03/31/25 10:22 Blood Culture - Final
Blood/Venous No Growth - Final Report
03/25/25 09:33 Blood Culture - Final
Blood/Venous No Growth - Final Report
03/25/25 16:56 Wound Culture - Final
Foot - Left Staph aureus MRSA
Enterococcus faecalis - VRE
Gram Stain - Final
03/25/25 16:56 Anaerobic Culture - Final
Foot - Left NO ANAEROBES ISOLATED
03/25/25 16:52 Wound Culture - Final
Foot - Left Staph aureus MRSA
Enterococcus faecalis - VRE
Gram Stain - Final
03/25/25 16:52 Anaerobic Culture - Final
Foot - Left NO ANAEROBES ISOLATED
03/25/25 01:16 Blood Culture - Final
Blood/Venous No Growth - Final Report
03/27/25 10:35 Urine Culture - Final
Urine Anna albicans
03/24/25 12:51 Salmonella/Shigella Culture - Final
Feces/Stool No Salmonella, Shigella, Aeromonas or Plesiomonas species
isolated.
Campylobacter Culture - Final
No Campylobacter species isolated.
Shiga Toxin Test - Final
No E. coli Shiga Toxin 1 or 2 detected.
03/21/25 21:00 Blood Culture - Final
Blood/Venous No Growth - Final Report
03/21/25 21:00 Blood Culture - Final
Blood/Venous No Growth - Final Report
03/21/25 21:16 Wound Culture - Final
Foot - Left Enterococcus faecalis - VRE
Anna albicans
Gram Stain - Final
03/24/25 12:53 C. difficile GDH Antigen & Toxins - Final
Feces/Stool C. difficile antigen positive, toxin negative.
Clostridium difficile present, but toxin not detected.
Patient may be a carrier, colonized with nontoxinogenic
strain or the level of toxin in sample is below detection
limits. This information should be used in conjunction with
the patient's clinical history.
03/22/25 13:07 MRSA Screen - Final
Nose No Methicillin Resistant Staphylococcus aureus isolated.
Care Review
Plan reviewed with: Physician (Dr. Andrade.)
[2025-04-25] MEDS: NOVOLOG FLEXPEN-LOW RESISTANCE 3 UNITS SC (12:46)
[2025-04-25 13:52] VITALS: BP 128/76
[2025-04-25 14:12] VITALS: BP 141/78
[2025-04-25 16:16] VITALS: BP 126/64
[2025-04-25 17:03] LABS: Glucose - Point of Care 234 mg/dl (70-99)
[2025-04-25] MEDS: LOVENOX 40 MG SC (17:42)
[2025-04-25] MEDS: NOVOLOG FLEXPEN-LOW RESISTANCE 2 UNITS SC (17:42)
--- NOTE | 2025-04-25 18:19 | PTCARENOTE ---
Morning Hgb 7.2 Ordered unit of PRBC's infused without apparent reaction. PRN Dilaudid 1mg IV Q3H given for pain.
[2025-04-25 20:48] VITALS: BP 139/68
[2025-04-25] MEDS: REMERON 30 MG PO (20:56)
[2025-04-25 21:43] LABS: Glucose - Point of Care 326 mg/dl (70-99)
[2025-04-25 23:30] VITALS: BP 145/74
[2025-04-26] MEDS: DILAUDID 1 MG IV ×6 (02:00→20:44)
[2025-04-26 06:00] VITALS: BMI 31.9
[2025-04-26] MEDS: TYLENOL 1000 MG PO ×3 (06:00→18:02)
[2025-04-26 07:18] VITALS: BP 154/81
--- NOTE | 2025-04-26 07:30 | W.PN.HOSP.TC ---
Today's Communication/Plan
-
Discharge planning
Will resume anticoagulation and torsemide at discharge.
Assessment / Plan
Assessment / Plan
HPI: 29-year-old male with PMHx significant for insulin-dependent type 1 diabetes mellitus, CIDP, Hypertension, GERD, CKD stage IIIA, history of osteomyelitis and TMA is admitted to the hospital for evaluation and management of acute blood loss
anemia from TMA wound dehiscence.
Assessment/Plan:
-Left foot TMA site with wound dehiscence:
-History of left foot TMA on 03/08:
-Acute bleed: from site of L TMA and Heel Debridement (03/25 and 04/08)
-Acute blood Loss Anemia secondary to the above:
Vascular ultrasound showed no significant arterial stenosis on the left however Doppler waveforms suggest disease within the distal SFA/popliteal artery and infrapopliteal disease may also be present as per arterial studies. Multiple lymph nodes
were also seen in the left thigh which may be reactive.
Wound cultures grew MRSA, VRE
Blood cultures did not show any growth
Underwent ultrasound of the left lower extremity did not show any evidence of DVT
Iron supplementation continue
Continue monitoring hemoglobin daily and transfuse as needed to maintain hemoglobin greater than 7
Status postdebridement 03/25.
Pathology results came back which showed focal acute osteomyelitis and detached fragment of fibrino-purulent exudate
Patient underwent his open TMA revision and wound debridement on 04/04 -there was significant drainage postoperatively - pathology positive for acute and chronic osteomyelitis
Wound culture from 04/04 positive for Enterobacter Cloacae
Continue antibiotics as per ID recommendations
Podiatry recommends nonweightbearing to the left lower extremity and continued elevation of the extremity on 2-3 pillows
Continue Daptomycin (currently on day 21 on 04/14/2025)
Continue ceftazidime/avibactam 1250 mg (Day 9 on 04/14/25) as per infectious diseases recommendations
Patient's lab work on the morning of 04/07/2025 had a hemoglobin at 7.1 with a hematocrit of 20.7�repeat H&H ordered which was 6.7 - 1 PRBC ordered on 04/07/25
Podiatry has tentatively planned for revision surgery of the L foot after pathology returns from most recent debridement on 04/06/25
Patient had an episode of acute blood loss on 04/08/2025 where a large amount of blood was lost from his foot wound. 1 PRBC given on 04/08/25
Scheduled for OR with podiatry for debridement vs lisfranc disarticulation on 04/13/25 - procedure tolerated well
Patient's Hgb is 7.5 on 04/15/25 - will continue to follow - if <7 then will transfuse PRBCs
Patient received 1 unit of PRBCs on 04/16/2025
Continue Holding anticoagulants postoperatively - will resume near discharge date
Appreciate hematology recommendations -they are under the impression that the patient is suffering from some element of WILBER and recommended continuing with oral iron supplement.
We have initiated anemia workup with LDH at 171, haptoglobin pending, Positive Candie test, 1+ BOBBY IgG, stool heme test, and PT/PTT were within normal limits. Based on positive Candie test, consider drug-induced immune hemolytic anemia, delayed
hemolytic transfusion reaction, or cold agglutinin disease
Abdominal ultrasound found that the liver and spleen were within normal limits in size without hepatosplenomegaly. No ascites. Tiny gallstones without sonographic features of acute cholecystitis. No bile duct dilatation.
Most recent pathology from left foot metatarsal was positive for chronic osteomyelitis with bone remodeling
Patient tolerated his Left BKA and is recovering postoperatively. POD 5 on 04/25/24 for L BKA
As per ID recommendations - Stump looks clean, can discontinue Daptomycin and Ceftazidime/Avibactam and plan for DC
-Right BKA: Stable/monitoring
gauze and wrapped dressing provided to avoid further irritation to the site. Patient may be accidentally irritating the area.
-Hypoactive delirium likely due to opiate overdose: Improving
Narcan x1 dose 04/24
Stopped Dilaudid AUTO PHONE INSTALLER and switch to Dilaudid IV PRN
Continue Dilaudid
-Hyperkalemia: Resolved
Patient was hyperkalemic with postassium of 5.5 on 04/14/25
Lokelma given, Insulin adjusted to home dose.
Repeat potassium on 04/15/25 is 4.9 - within normal limits.
Potassium was 5.7 on 04/18/2025�Lokelma given�Will repeat with BMP
Torsemide has been resumed
-Itchy rash:
Continue IV Benadryl
-Diarrhea:
Check stool sample for C. difficile if loose stool continues
- Urinary retention:
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
Patient self caths
Castillo catheter has been discontinued. Patient will be able to self cath as he usually does this in the outpatient setting
- History of ASCVD
- Status post stent palcement
- Chest pain:
EKG/troponin negative for any acute process
ASA held
Plavix 75mg held
Statin held
Continue Ranolazine
Continue Carvedilol
Type 1 diabetes with Hyperglycemia and neuropathy: Monitoring
A1C = 8.1% in January. Hba1c on 03/21/25 was 6.9 indicating improvement in overall glycemic control
Diabetes MAPLE PRODUCTS SUPERVISOR consulted, recommendations appreciated
Continue gabapentin, continue duloxetine
Lantus adjusted to 25 units, Aspart adjusted to 8 units at breakfast, lunch and dinner.
-AMBER on CKD IIIa: Unresolved
Continue to monitoring creatinine, has been hovering around 1.4/1.5
Urine studies show pre-renal cause, likely from hypovolemic state
Continued elevated creatinine level at 1.6 on 04/04/2025
Continue monitoring BMP.
Torsemide held - will resume near discharge and upon improvement of Cr
IV fluid support
-GERD
Continue Pantoprazole
-Chronic inflammatory demyelinating polyneuropathy:
Continue current meds, will need to arrange for PLEX in outpatient setting once discharged
FULL CODE STATUS
Stress Ulcer Prophylaxis: Pantoprazole
DVT Prophylaxis: SCDs
Imaging:
-Left foot x-ray conducted on 03/21/2025:
Status post amputation at the level of the first through fifth proximal metatarsal bones.
No radiographic evidence for osteomyelitis.
- Bilateral lower extremity arterial ultrasound exam conducted on 03/23/2025:
1. Ankle-brachial indices and toe brachial indices could not be measured due to prior amputations.
2. No focal significant arterial stenosis demonstrated on the left side on duplex imaging. Spectral Doppler waveform analysis is suggestive of disease within the distal SFA/popliteal artery. Infrapopliteal disease may also be present.
3. Multiple lymph nodes are seen within the left thigh, which may be reactive.
-Peripheral vascular ultrasound of the left lower extremity conducted on 03/31/2025:
No evidence of DVT of the left lower extremity.
Procedures:
03/03/2025-initial amputation of left transmetatarsal
03/25/2025-debridement of infected left metatarsal amputation
04/04/2025-revision debridement of left heel wound with calcaneal biopsy.
Anticipated Discharge: 24 - 48 hours
Subjective/Interval History
-
Date of Service: April 26, 2025
Met with patient at the bedside. Overall he is doing well and offers no complaints at the present time. The patient does not have any shortness of breath, chest tightness, or chest pain. The patient does not have any nausea, vomiting, or diarrhea.
Objective Data
-
Labs:
Laboratory Results
04/26/25
08:04
WBC 10.6
Hgb 7.9 L
Hct 25.3 L
Plt Count 458 H
Sodium 141
Potassium 4.5
Chloride 111 H
Carbon Dioxide 26
BUN 27 H
Creatinine 1.3
Glucose 303 H
Calcium 8.5
Total Bilirubin 0.1 L
AST 11 L
ALT 10
Alkaline Phosphatase 80
Vital Signs:
Vital Signs
Temp Pulse Resp BP Pulse Ox
98.5 F 89 16 154/81 95
04/26/25 07:18 04/26/25 08:33 04/26/25 07:18 04/26/25 08:33 04/26/25 07:18
I&O
04/25/25 04/26/25 04/27/25
06:59 06:59 06:59
Intake Total 1660 / 1660
Output Total 2350 / 2350 2250 / 2250
Balance -2350 / -2350 -590 / -590
Review of Systems
-
History Source: Patient
Constitutional: Reports Fatigue
EENT: Reports No Symptoms Reported
Respiratory: Reports No Symptoms
Cardiac: Reports No Symptoms
Abdomen/GI: Reports No Symptoms
Breast: Reports No Symptoms
Musculoskeletal: Reports Joint Pain (Left Lower Limb) and Muscle Pain (Left Lower Limb)
Neuro: Reports No Symptoms
Endocrine: Reports No Symptoms
Physical Exam
-
General: Well Developed, Well Nourished, Comfortable, Conversant and Obese
HEENT: Normocephalic and Atraumatic
Respiratory: Clear to Auscultation and Non Labored Respirations; Negative Wheezes, Rales, Rhonchi or Crackles
Cardiac: Regular Rhythm and S1/S2; Negative Murmur, Calf Tenderness or Tachycardic
GI: Soft, Nontender, Nondistended and Normal Bowel Sounds; Negative Organomegaly
Genito-urinary: No Costovertebral Tender, Clear Urine and Castillo
Musculoskeletal: No Clubbing, No Cyanosis and Other (R BKA with superficial scab/ulcer and no infection. L BKA with bloody dressing)
Skin: Warm and Dry; Negative Rash or Ulcers
Neuro: Awake, Alert, Oriented, AO x 3 and No Sensory Deficits
Psych: Calm
[2025-04-26 07:42] LABS: Glucose - Point of Care 322 mg/dl (70-99)
[2025-04-26 08:27] LABS: Hematocrit 25.3 % (39.0-52.0); Hemoglobin 7.9 g/dL (13.0-18.0); Mean Corp Hgb Conc. 31.2 g/dL (33.0-37.0); Mean Corpuscular Volume 90.0 fL (80.0-94.0); Platelet Count 458 10^3/uL (130-400); Red Cell Dist. Width 15.8 % (11.5-14.5)
[2025-04-26] MEDS: NOVOLOG FLEXPEN 8 UNITS SC ×3 (08:31→17:26)
[2025-04-26] MEDS: NOVOLOG FLEXPEN-LOW RESISTANCE 4 UNITS SC (08:32)
[2025-04-26] MEDS: LANTUS 0.2 UNITS SC (08:32)
[2025-04-26] MEDS: RANEXA EXTENDED RELEASE 1000 MG PO ×2 (08:33→19:46)
[2025-04-26] MEDS: COREG 25 MG PO ×2 (08:33→19:46)
[2025-04-26] MEDS: FEOSOL 325 MG PO ×2 (08:33→19:46)
[2025-04-26] MEDS: CYMBALTA DELAYED RELEASE 30 MG PO (08:33)
[2025-04-26] MEDS: IMDUR (EXTENDED RELEASE) 60 MG PO (08:33)
[2025-04-26] MEDS: PROTONIX 40 MG PO (08:33)
--- NOTE | 2025-04-26 08:33 | PN.DE.MGMTRT ---
Insulin Management
- -
04/26/2025: Diabetes Management Follow up
Patient admitted from [email or web address] 03/21 with c/o bleeding L heel wound. PMH type 1 diabetes, R BKA, L toe amputation, recent debridement L heel, [place], CHF, HTN, CKD, MD, recent admission 01/21 and 03/05 s/p
transmetatarsal L amputation and debridement. Prior to admission was receiving Lantus 30 units BID with Humalog insulin ss AC. A1C on admission 6.9%, (improved from 8.1%). Cr 1.1, eGFR > 60 today.
Prior to incarceration was living in a long-term per patient he will return there.
Patient awake, alert, oriented, sitting up in bed, c/o stump pain, able to discuss diabetes care plan. States he doesn't know why his glucose is variable.
POD# 5 s/p Left BKA, doing well, per vascular incision clean dry and intact. Hgb stable 7.9, Cr 1.7, eGFR 55.27 today.
Pt had an episode of Hypoglycemia on 04/23, his mealtime insulin was discontinued and Lantus dose was reduced to 5 units.
Glucose has been labile > 300 then down to 80. Lantus dose was decreased to 5 units BID, glucose > 300. Lantus dose increased to 20 units BID 04/25. Glucose improved 234 to 284, HS glucose 326.
Fasting glucose today 322. Will resume lantus 25 units BID, AM dose of 20 units already given, first increased dose 25 units for HS tonight. Will continue 8 units novolog ac with corrective insulin.
Discussed with nurse, she will hold ac novolog if patient does not eat.
Will cont to follow and adjust insulin dose if necessary.
Diabetes History
- -
Type of Diabetes: 1
Pre-Admission Diabetes Regimen
Lab Results
Hemoglobin A1c 6.9 % (4.0-5.6) H 03/22/25 06:24
Insulin Pump Settings
IP Diabetes Regimen
04/25/25 04/25/25 04/25/25
11:53 17:02 21:42
POC Glucose 283 H 234 H 326 H
04/26/25
07:41
POC Glucose 322 H
Meal type: Lunch
Meal type: Breakfast
Amount consumed: 100%
Amount consumed: 100%
Patient Education
[2025-04-26] MEDS: ASPIR LOW (ENTERIC COATED) 81 MG PO (08:34)
[2025-04-26] MEDS: NEURONTIN 300 MG PO ×3 (08:34→22:27)
[2025-04-26 08:52] LABS: ALT (SGPT) 10 U/L (0-50); AST (SGOT) 11 U/L (17-59); Albumin 2.8 g/dl (3.5-5.0); Alkaline Phosphatase 80 U/L (38-126); Blood Urea Nitrogen 27 mg/dl (9-20); Calcium 8.5 mg/dl (8.4-10.2); Carbon Dioxide 26 mmol/L (22-30); Chloride 111 mmol/L (98-107); Estimated Creatinine Clearance 106 ml/min; Glucose 303 mg/dl (70-99); Potassium 4.5 mmol/L (3.5-5.1); Sodium 141 mmol/L (135-145); Total Protein 5.8 g/dl (6.3-8.2); eGFR > 60.00
[2025-04-26 12:01] LABS: Glucose - Point of Care 235 mg/dl (70-99)
[2025-04-26 12:10] VITALS: BP 156/84; PULSE 86; O2SAT 96
--- NOTE | 2025-04-26 12:27 | W.PN.UPDATE ---
Update Note
Progress Note Update
I saw and evaluated the patient with the residents
A/P:
# Left foot Osteomyelitis with TMA site wound dehiscence with necrosis
Failed multiple revisions
s/p left BKA 04/21/25
stump looks clean, off Abx daptomycin and ceftaz/avibactam
Hgb today at 7.9
cont to monitor Hgb closely
He has received a total of 12 units PRBC thus far
Stopped Dilaudid DIRECTOR VOICE and switch to Dilaudid IV PRN
# Hypoactive delirium 04/24 likely due to opiate overdose, resolved
# Acute hypoxic respiratory insufficiency 2/2 above, resolved
s/p Narcan x1 dose 04/24
Stopped further Dilaudid DIRECTOR VOICE and switch to Dilaudid IV PRN
Weaned back to RA
CXR unrevealing
# Right BKA stump with superficial scab over bony prominence, likely due to pt manipulating/picking the area
Possible outpt revision of stump
# IDDM
# Type 1 diabetes with neuropathy
HgbA1C 6.9% on 03/21/25
Hypoglycemia noted 04/23, Lantus was decreased, adjusted back to 25 units BID by DM INDUSTRIAL COFFEE GRINDER
Aspart added back to 8 units AC by DM INDUSTRIAL COFFEE GRINDER
Cont ISS for coverage
Continue gabapentin, continue duloxetine for neuropathy
# AMBER on CKD 3
SCr 1.3 today, from baseline 1.2
[employer] torsemide on hold
Monitor SCr
Other chronic medical conditions:
# CAD status post PCI
Cont ASA
Resume [employer] Plavix when Hgb remain stable
# CHF
# Hypertension
Cont home BP meds with holding parameter
# Guillain-Potts� syndrome/CIDP, plasma exchange q 2 months
# PAD status post right BKA
DVT ppx: Lovenox SQ
FC
DW CM
total time 51 min
[2025-04-26] MEDS: NOVOLOG FLEXPEN-LOW RESISTANCE 2 UNITS SC (13:21)
--- NOTE | 2025-04-26 14:05 | CM ---
Chart reviewed. Patient s/p L BKA 04/21. Plan to schedule right BKA revision in the outpatient setting following healing from his recent left BKA
Discontinued abx, cont to monitor hgb for potential transfusion
PT/OT recommending acute rehab, however, this plan is not likely as patient will return to [facility]. Patient will need assistance w/ w/c transfers. CM spoke w/ [facility] nurse, Penny, regarding patient's transfer needs and
assistance upon return. Per Penny, who spoke w/ her DON, they are unable to provide a 2 person assist for patient and he would need to be independent w/ his w/c unfortunately. They are unable to provide the level of care patient is requiring at this
time. CM asked if patient would be able to participate in OP therapy to address new deficits, Penny stated that would have to be discussed and determined by the facility's construction project administrator who is not working today. CM was advised to call tomorrow to
speak w/ the construction project administrator
Plan: Return to [facility]
[2025-04-26 15:23] VITALS: BP 141/68
[2025-04-26 17:02] LABS: Glucose - Point of Care 291 mg/dl (70-99)
[2025-04-26] MEDS: NOVOLOG FLEXPEN-LOW RESISTANCE 3 UNITS SC (17:26)
[2025-04-26] MEDS: LOVENOX 40 MG SC (17:30)
[2025-04-26 19:43] VITALS: BP 144/80
[2025-04-26 21:05] LABS: Glucose - Point of Care 266 mg/dl (70-99)
[2025-04-26 22:24] LABS: Glucose - Point of Care 267 mg/dl (70-99)
[2025-04-26] MEDS: LANTUS 0.25 UNITS SC (22:26)
[2025-04-26] MEDS: REMERON 30 MG PO (22:27)
[2025-04-26 23:30] VITALS: BP 168/84
[2025-04-27] MEDS: TYLENOL 1000 MG PO ×5 (00:32→23:57)
[2025-04-27] MEDS: DILAUDID 1 MG IV ×3 (00:35→08:52)
[2025-04-27 01:43] VITALS: BP 130/60
[2025-04-27 06:00] VITALS: BMI 31.8
[2025-04-27 07:30] VITALS: BP 143/85
--- NOTE | 2025-04-27 07:30 | W.PN.HOSP.TC ---
Today's Communication/Plan
-
Patient spiked a fever on 04/27/25 with 101.1 temp. Reconsulted ID, CXR ordered, COVID negative, UA with reflex to culture ordered, BCs x2 ordered.
Ongoing Disposition planning. Plan for outpatient rehab on discharge status post LBKA and with ongoing RBKA status.
Assessment / Plan
Assessment / Plan
HPI: 29-year-old male with PMHx significant for insulin-dependent type 1 diabetes mellitus, CIDP, Hypertension, GERD, CKD stage IIIA, history of osteomyelitis and TMA is admitted to the hospital for evaluation and management of acute blood loss
anemia from TMA wound dehiscence.
Assessment/Plan:
-Left foot TMA site with wound dehiscence:
-History of left foot TMA on 03/08:
-Acute bleed: from site of L TMA and Heel Debridement (03/25 and 04/08)
-Acute blood Loss Anemia secondary to the above:
Vascular ultrasound showed no significant arterial stenosis on the left however Doppler waveforms suggest disease within the distal SFA/popliteal artery and infrapopliteal disease may also be present as per arterial studies. Multiple lymph nodes
were also seen in the left thigh which may be reactive.
Wound cultures grew MRSA, VRE
Blood cultures did not show any growth
Underwent ultrasound of the left lower extremity did not show any evidence of DVT
Iron supplementation continue
Continue monitoring hemoglobin daily and transfuse as needed to maintain hemoglobin greater than 7
Status postdebridement 03/25.
Pathology results came back which showed focal acute osteomyelitis and detached fragment of fibrino-purulent exudate
Patient underwent his open TMA revision and wound debridement on 04/04 -there was significant drainage postoperatively - pathology positive for acute and chronic osteomyelitis
Wound culture from 04/04 positive for Enterobacter Cloacae
Podiatry recommends nonweightbearing to the left lower extremity and continued elevation of the extremity on 2-3 pillows
Patient's lab work on the morning of 04/07/2025 had a hemoglobin at 7.1 with a hematocrit of 20.7�repeat H&H ordered which was 6.7 - 1 PRBC ordered on 04/07/25
Podiatry has tentatively planned for revision surgery of the L foot after pathology returns from most recent debridement on 04/06/25
Patient had an episode of acute blood loss on 04/08/2025 where a large amount of blood was lost from his foot wound. 1 PRBC given on 04/08/25
Scheduled for OR with podiatry for debridement vs lisfranc disarticulation on 04/13/25 - procedure tolerated well
Patient's Hgb is 7.5 on 04/15/25 - will continue to follow - if <7 then will transfuse PRBCs
Patient received 1 unit of PRBCs on 04/16/2025
Continue Holding anticoagulants postoperatively - will resume near discharge date
Appreciate hematology recommendations -they are under the impression that the patient is suffering from some element of WILBER and recommended continuing with oral iron supplement.
We have initiated anemia workup with LDH at 171, haptoglobin pending, Positive Candie test, 1+ BOBBY IgG, stool heme test, and PT/PTT were within normal limits. Based on positive Candie test, consider drug-induced immune hemolytic anemia, delayed
hemolytic transfusion reaction, or cold agglutinin disease
Abdominal ultrasound found that the liver and spleen were within normal limits in size without hepatosplenomegaly. No ascites. Tiny gallstones without sonographic features of acute cholecystitis. No bile duct dilatation.
Most recent pathology from left foot metatarsal was positive for chronic osteomyelitis with bone remodeling
Patient tolerated his Left BKA and is recovering postoperatively. POD 5 on 04/25/24 for L BKA
As per ID recommendations - Stump looks clean, discontinued Daptomycin and Ceftazidime/Avibactam and plan for DC
Patient spiked a fever on 04/27/25 with 101.1 temp. Reconsulted ID, CXR ordered, COVID negative, UA with reflex to culture ordered, BCs x2 ordered.
-Right BKA: Stable/monitoring
gauze and wrapped dressing provided to avoid further irritation to the site. Patient may be accidentally irritating the area.
-Hypoactive delirium likely due to opiate overdose: Improving
Narcan x1 dose 10/12
Stopped Dilaudid CORRECTION OFFICER PENITENTIARY and switch to Dilaudid IV PRN
Continue Dilaudid
-Hyperkalemia: Resolved
Patient was hyperkalemic with postassium of 5.5 on 04/14/25
Lokelma given, Insulin adjusted to home dose.
Repeat potassium on 04/15/25 is 4.9 - within normal limits.
Potassium was 5.7 on 04/18/2025�Lokelma given�Will repeat with BMP
Torsemide has been resumed
-Itchy rash:
Continue IV Benadryl
-Diarrhea:
Check stool sample for C. difficile if loose stool continues
- Urinary retention:
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
Patient self caths
Castillo catheter has been discontinued. Patient will be able to self cath as he usually does this in the outpatient setting
- History of ASCVD
- Status post stent palcement
- Chest pain:
EKG/troponin negative for any acute process
ASA held
Plavix 75mg held
Statin held
Continue Ranolazine
Continue Carvedilol
Type 1 diabetes with Hyperglycemia and neuropathy: Monitoring
A1C = 8.1% in January. Hba1c on 03/21/25 was 6.9 indicating improvement in overall glycemic control
Diabetes PARK KEEPER consulted, recommendations appreciated
Continue gabapentin, continue duloxetine
Lantus adjusted to 25 units, Aspart adjusted to 8 units at breakfast, lunch and dinner.
-AMBER on CKD IIIa: Unresolved
Continue to monitoring creatinine, has been hovering around 1.4/1.5
Urine studies show pre-renal cause, likely from hypovolemic state
Continued elevated creatinine level at 1.6 on 04/04/2025
Continue monitoring BMP.
Torsemide held - will resume near discharge
IV fluid support
-GERD
Continue Pantoprazole
-Chronic inflammatory demyelinating polyneuropathy:
Continue current meds, will need to arrange for PLEX in outpatient setting once discharged
FULL CODE STATUS
Stress Ulcer Prophylaxis: Pantoprazole
DVT Prophylaxis: SCDs
Imaging:
-Left foot x-ray conducted on 03/21/2025:
Status post amputation at the level of the first through fifth proximal metatarsal bones.
No radiographic evidence for osteomyelitis.
- Bilateral lower extremity arterial ultrasound exam conducted on 03/23/2025:
1. Ankle-brachial indices and toe brachial indices could not be measured due to prior amputations.
2. No focal significant arterial stenosis demonstrated on the left side on duplex imaging. Spectral Doppler waveform analysis is suggestive of disease within the distal SFA/popliteal artery. Infrapopliteal disease may also be present.
3. Multiple lymph nodes are seen within the left thigh, which may be reactive.
-Peripheral vascular ultrasound of the left lower extremity conducted on 03/31/2025:
No evidence of DVT of the left lower extremity.
Procedures:
03/03/2025-initial amputation of left transmetatarsal
03/25/2025-debridement of infected left metatarsal amputation
04/04/2025-revision debridement of left heel wound with calcaneal biopsy.
Anticipated Discharge: 24 - 48 hours
Subjective/Interval History
-
Date of Service: April 27, 2025
Met with patient at the bedside. Patient spiked a fever last night and the patient noticed that he has been feeling a little feverish over the evening. Patient denies any shortness of breath, chest tightness, or chest pain. Patient denies any
nausea or vomiting.
Objective Data
-
Labs:
Laboratory Results
04/27/25
07:35
WBC 9.2
Hgb 7.4 L
Hct 23.6 L
Plt Count 404 H
Sodium 139
Potassium 4.4
Chloride 109 H
Carbon Dioxide 25
BUN 23 H
Creatinine 1.1
Glucose 288 H
Calcium 8.4
Total Bilirubin 0.2
AST 10 L
ALT 10
Alkaline Phosphatase 76
Vital Signs:
Vital Signs
Temp Pulse Resp BP Pulse Ox
98.3 F 78 16 143/85 98
04/27/25 07:30 04/27/25 07:30 04/27/25 07:30 04/27/25 07:30 04/27/25 07:30
I&O
04/26/25 04/27/25 04/28/25
06:59 06:59 06:59
Intake Total 1660 / 1660
Output Total 2250 / 2250 2500 / 2500 550 / 550
Balance -590 / -590 -2500 / -2500 -550 / -550
Review of Systems
-
History Source: Patient
Constitutional: Reports Fatigue
EENT: Reports No Symptoms Reported
Respiratory: Reports No Symptoms
Cardiac: Reports No Symptoms
Abdomen/GI: Reports No Symptoms
Breast: Reports No Symptoms
Musculoskeletal: Reports Joint Pain (Left Lower Limb) and Muscle Pain (Left Lower Limb)
Neuro: Reports No Symptoms
Endocrine: Reports No Symptoms
Physical Exam
-
General: Well Developed, Well Nourished, Comfortable, Conversant and Obese
HEENT: Normocephalic and Atraumatic
Respiratory: Clear to Auscultation and Non Labored Respirations; Negative Wheezes, Rales, Rhonchi or Crackles
Cardiac: Regular Rhythm and S1/S2; Negative Murmur, Calf Tenderness or Tachycardic
GI: Soft, Nontender, Nondistended and Normal Bowel Sounds; Negative Organomegaly
Genito-urinary: No Costovertebral Tender, Clear Urine and Castillo
Musculoskeletal: No Clubbing, No Cyanosis and Other (R BKA with superficial scab/ulcer and no infection. L BKA with bloody dressing)
Skin: Warm and Dry; Negative Rash or Ulcers
Neuro: Awake, Alert, Oriented, AO x 3 and No Sensory Deficits
Psych: Calm
[2025-04-27 07:44] LABS: Hematocrit 23.6 % (39.0-52.0); Hemoglobin 7.4 g/dL (13.0-18.0); Mean Corp Hgb Conc. 31.4 g/dL (33.0-37.0); Mean Corpuscular Volume 89.7 fL (80.0-94.0); Platelet Count 404 10^3/uL (130-400); Red Cell Dist. Width 15.9 % (11.5-14.5)
[2025-04-27 07:53] LABS: Glucose - Point of Care 291 mg/dl (70-99)
--- NOTE | 2025-04-27 08:16 | PN.DE.MGMTRT ---
Insulin Management
- -
04/27/2025: Diabetes Management Follow up
Patient admitted from [facility] 03/21 with c/o bleeding L heel wound. PMH type 1 diabetes, R BKA, L toe amputation, recent debridement L heel, Guillian [place], CHF, HTN, CKD, [place], recent admission 01/21 and 03/05 s/p
transmetatarsal L amputation and debridement. Prior to admission was receiving Lantus 30 units BID with Humalog insulin ss AC. A1C on admission 6.9%, (improved from 8.1%). Cr 1.1, eGFR > 60 today.
Prior to incarceration was [facility] a [facility]it[facility] per patient he will return there.
Patient awake, alert, oriented, sitting up in bed, c/o stump pain, able to discuss diabetes care plan. States he doesn't know why his glucose is variable.
POD# 6 s/p Left BKA, doing well, per vascular incision clean dry and intact. Hgb stable 7.4, Cr 1.7, eGFR 55.27 today.
Pt had an episode of Hypoglycemia on 04/23, his mealtime insulin was discontinued and Lantus dose was reduced to 5 units.
Glucose has been labile > 300 then down to 80. Lantus dose was decreased to 5 units BID, glucose > 300. Lantus dose increased to 20 units BID 04/25. Glucose improved 234 to 284, HS glucose 326.
04/26 Fasting glucose 322. Resumed lantus 25 units BID, continue 8 units novolog ac with corrective insulin.
04/27 Fasting glucose 291. Will continue lantus 25 units BD and novolog 8 units AC with low corrective.
Discussed with nurse, she will hold ac novolog if patient does not eat.
Will cont to follow and adjust insulin dose if necessary.
Diabetes History
- -
Type of Diabetes: 1
Pre-Admission Diabetes Regimen
04/26/25
08:04
Creatinine 1.3
Lab Results
Hemoglobin A1c 6.9 % (4.0-5.6) H 03/22/25 06:24
Insulin Pump Settings
IP Diabetes Regimen
04/26/25 04/26/25 04/26/25
08:04 12:00 17:00
Glucose 303 H
POC Glucose 235 H 291 H
04/26/25 04/26/25 04/27/25
21:04 22:23 07:52
Glucose
POC Glucose 266 H 267 H 291 H
Meal type: Breakfast
Amount consumed: 100%
Patient Education
[2025-04-27 08:25] LABS: ALT (SGPT) 10 U/L (0-50); AST (SGOT) 10 U/L (17-59); Albumin 2.7 g/dl (3.5-5.0); Alkaline Phosphatase 76 U/L (38-126); Blood Urea Nitrogen 23 mg/dl (9-20); Calcium 8.4 mg/dl (8.4-10.2); Carbon Dioxide 25 mmol/L (22-30); Chloride 109 mmol/L (98-107); Estimated Creatinine Clearance > 125 ml/min; Glucose 288 mg/dl (70-99); Potassium 4.4 mmol/L (3.5-5.1); Sodium 139 mmol/L (135-145); Total Protein 5.6 g/dl (6.3-8.2); eGFR > 60.00
[2025-04-27] MEDS: NEURONTIN 300 MG PO ×3 (08:50→21:46)
[2025-04-27] MEDS: RANEXA EXTENDED RELEASE 1000 MG PO ×2 (08:50→20:00)
[2025-04-27] MEDS: IMDUR (EXTENDED RELEASE) 60 MG PO (08:50)
[2025-04-27] MEDS: LANTUS 0.25 UNITS SC ×2 (08:50→21:46)
[2025-04-27] MEDS: PROTONIX 40 MG PO (08:50)
[2025-04-27] MEDS: COREG 25 MG PO ×2 (08:50→20:00)
[2025-04-27] MEDS: CYMBALTA DELAYED RELEASE 30 MG PO (08:50)
[2025-04-27] MEDS: ASPIR LOW (ENTERIC COATED) 81 MG PO (08:50)
[2025-04-27] MEDS: FEOSOL 325 MG PO ×2 (08:50→20:00)
[2025-04-27] MEDS: NOVOLOG FLEXPEN-LOW RESISTANCE 3 UNITS SC ×2 (08:51→12:49)
[2025-04-27] MEDS: NOVOLOG FLEXPEN 8 UNITS SC ×3 (08:51→17:34)
[2025-04-27 10:37] LABS: Urine Character Clear (Clear)
[2025-04-27 10:44] LABS: Urine White Cell 30-40 /HPF (0-5)
[2025-04-27 10:50] LABS: COVID-19 Antigen Negative (Negative)
--- NOTE | 2025-04-27 11:50 | PN.CDI ---
Addendum entered and electronically signed by Chiki Andrade MD, Resident 04/27/25 14:44:
None of those codes are indicated for this hospitalization. Patient using opioid medication postoperatively does not meet criteria for something that I would document as a problem code for this patient. Thank you.
Original Note:
CDI
- -
CDI:
Physician Documentation Request
Admit Date: 03/23/25 08:02
Dear Doctor Raymond,
04/23 Patient care note: 'at end of shift evaluation pump indicates pt attempted 238 times to obtain bolus with 51 successful administrations.'
04/24 PCN: 'pt is lethargic, but easily aroused, 99%, still using Cpap, states he is sleepy. narcan and decrease PRIME BROKER further.'
04/26 Dilaudid 1mg IV PRN administered 6 times
04/27 Dilaudid 1mg IV PRN administered 3 times, order discontinued
04/27 Hospitalist PN: 'Hypoactive delirium likely due to opiate overdose: Improving
Narcan x1 dose 04/24
Stopped Dilaudid PRIME BROKER and switch to Dilaudid IV PRN'
If possible, please provide further specificity as outlined below:
Opioid dependence
Opioid use
Other
Use of terms such as suspected, likely, concern for, or probable (associated with a specific diagnosis that is being evaluated, monitored, or treated as if it exists) are acceptable and can be coded in the inpatient setting, when documented at the
time of discharge.
Thank you,
Mayra Coleman RN, BSN
CDI Specialist
Available via [place] text
Please use your independent medical judgment in providing your response.
--- NOTE | 2025-04-27 12:00 | W.PN.UPDATE ---
Update Note
Progress Note Update
I saw and evaluated the patient with the residents
A/P:
# Left foot Osteomyelitis with TMA site wound dehiscence with necrosis
Failed multiple revisions
s/p left BKA 04/21/25
stump looks clean, off Abx daptomycin and ceftaz/avibactam
Hgb today at 7.4
cont to monitor Hgb closely
He has received a total of 12 units PRBC thus far
Stopped Dilaudid SOCIAL WORKER DELINQUENCY PREVENTION and switch to Dilaudid IV PRN
# New fever 04/27
check repeat blood cultures
Check CXR
COVID from 04/27 negative
ID reconsulted
# Hypoactive delirium 04/24 likely due to opiate overdose, resolved
# Acute hypoxic respiratory insufficiency 2/2 above, resolved
s/p Narcan x1 dose 04/24
Stopped further Dilaudid SOCIAL WORKER DELINQUENCY PREVENTION and switched to Dilaudid IV PRN
Weaned back to RA
# Right BKA stump with superficial scab over bony prominence, likely due to pt manipulating/picking the area
Possible outpt revision of stump per vascular
# IDDM
# Type 1 diabetes with neuropathy
HgbA1C 6.9% on 03/21/25
Hypoglycemia noted 04/23, Lantus was decreased then, adjusted back to 25 units BID by DM CARD PUNCHING MACHINE OPERATOR
Aspart added back at 8 units AC by DM CARD PUNCHING MACHINE OPERATOR
Cont ISS for coverage
Continue gabapentin, continue duloxetine for neuropathy
# AMBER on CKD 3
AMBER has resolved
SCr 1.1 today, at baseline
REGISTRATION REP torsemide on hold,
Monitor SCr
Other chronic medical conditions:
# CAD status post PCI
Cont ASA
Resume REGISTRATION REP Plavix when Hgb remain stable
# CHF
check daily weight and SCr
REGISTRATION REP torsemide on hold,
Consider resuming when stable
# Hypertension
Cont home BP meds with holding parameter
# Guillain-Potts� syndrome/CIDP, plasma exchange q 2 months
# PAD status post right BKA
DVT ppx: Lovenox SQ
FC
total time 51 min
--- NOTE | 2025-04-27 12:18 | W.PN.ID1 ---
Date of Service
Date of Service: April 27, 2025
Today's Communication
Observe off abx for now.
Assessment / Plan
# Fever
- Bcx's x 2 pending
- Ordered COVID19 Ag - resulted negative
- Ordered UA/rflx Ucx. UA 2+LE, 30-40WBC, Ucx pending
- Ordered CXR: no consolidation
- Pt with multiple abx allergies. Will observe off abx for now pending cx data.
- Trend temps.
# Osteomyelitis Left foot TMA site wound dehiscence with necrosis
- Failed multiple revisions
- 04/21/25 s/p left BKA
- s/p daptomycin and ceftaz/avibactam, dc'd on 04/25.
# Right BKA stump superficial scab over bony prominence.
- Possible eventual revision of stump
# Leukocytosis post-op
- Resolved
# AMBER-postop, improving
# Allergies: PCN, cephalosporin, meropenem, Vancomycin; tolerated Avyzaz
# Incarcerated
Conditions TECHNOLOGY METHODOLOGY CONSULTANT
Diabetes mellitus
CAD status post PCI
CHF
hx CKD3
Hypertension
Guillain-Potts� syndrome/CIDP, plasma exchange q 2 months
PAD status post right BKA
Left hallux and second toe osteomyelitis status post amputation and debridement of left heel ulcer January 21, 2025
Left foot TMA, I+D left heel wound and bone biopsy of heel (neg osteo) Mar 08, 2025 (path surgical cure)
Chief Complaint
-: Other (Foot wound)
Subjective / Review of Systems
Asked to see due to fever overnight.
Pt without specific sxs: no SHANNON, sorethroat, rhinorrhea, cough, sob, rash, N/V, had 3 BM yesterday none yet today, left stump looked good during dressing change, no suprapubic pain (he self-caths).
Vital Signs / Physical Exam
Vital Signs
Vital Signs
Temp Pulse Resp BP Pulse Ox
98.3 F 78 16 143/85 98
04/27/25 07:30 04/27/25 07:30 04/27/25 07:30 04/27/25 07:30 04/27/25 07:30
Selected Entries
04/26/25
23:30 04/27/25
01:43
Temp 101.1 F H 100.4 F H
Physical Exam
Constitutional: Comfortable and Non-toxic
Head: Other (No sinus tendereness)
Eyes: No Conjunctival Hemorrhage and Sclera Anicteric
Cardiovascular: Regular Rate and S1/S2
Pulmonary: Clear; Negative Wheezes or Rales
Gastrointestinal: Soft, Non Tender, Non Distended and Normal Bowel Sounds
Genito-Urinary: Negative CVA Tenderness
Extremities: Negative Edema
Musculoskeletal: Negative Spinal Tenderness
Skin: Negative Rash
Wound: Other (Left BKA stump SHILPI-Wrap dry; R BKA stump with dry scabs. )
Neurological: AO x 3
Objective Data
Lab Data
Lab Results
04/27/25 07:35
04/27/25 07:35
ESR Cancelled 04/17/25 10:48
PT 13.7 Sec (11.4-14.6) 04/17/25 06:33
INR 1.02 04/17/25 06:33
APTT 33.8 Sec (23.4-35.0) 04/17/25 06:33
Estimated Creat Clear > 125 ml/min 04/27/25 07:35
Lactic Acid 0.8 mmol/L (0.7-2.0) 03/25/25 01:16
Total Bilirubin 0.2 mg/dl (0.2-1.3) 04/27/25 07:35
AST 10 U/L (17-59) L 04/27/25 07:35
ALT 10 U/L (0-50) 04/27/25 07:35
Alkaline Phosphatase 76 U/L (38-126) 04/27/25 07:35
Most recent labs reviewed.
Micro Results:
04/27/25 10:24 Urine Culture - Pending
Urine
04/27/25 09:32 Blood Culture - Pending
Blood/Venous
04/27/25 08:33 Blood Culture - Pending
Blood/Venous
03/25/25 16:52 Fungal Culture - Final
Foot - Left Anna albicans
04/13/25 16:07 Wound Culture - Final
Foot - Left Enterobacter cloacae
Gram Stain - Final
04/13/25 16:07 Anaerobic Culture - Final
Foot - Left NO ANAEROBES ISOLATED
04/04/25 16:30 Wound Culture - Final
Foot - Left Enterobacter cloacae
Gram Stain - Final
04/04/25 16:30 Anaerobic Culture - Final
Foot - Left NO ANAEROBES ISOLATED
03/31/25 10:51 Blood Culture - Final
Blood/Venous No Growth - Final Report
03/31/25 10:22 Blood Culture - Final
Blood/Venous No Growth - Final Report
03/25/25 09:33 Blood Culture - Final
Blood/Venous No Growth - Final Report
03/25/25 16:56 Wound Culture - Final
Foot - Left Staph aureus MRSA
Enterococcus faecalis - VRE
Gram Stain - Final
03/25/25 16:56 Anaerobic Culture - Final
Foot - Left NO ANAEROBES ISOLATED
03/25/25 16:52 Wound Culture - Final
Foot - Left Staph aureus MRSA
Enterococcus faecalis - VRE
Gram Stain - Final
03/25/25 16:52 Anaerobic Culture - Final
Foot - Left NO ANAEROBES ISOLATED
03/25/25 01:16 Blood Culture - Final
Blood/Venous No Growth - Final Report
03/27/25 10:35 Urine Culture - Final
Urine Anna albicans
03/24/25 12:51 Salmonella/Shigella Culture - Final
Feces/Stool No Salmonella, Shigella, Aeromonas or Plesiomonas species
isolated.
Campylobacter Culture - Final
No Campylobacter species isolated.
Shiga Toxin Test - Final
No E. coli Shiga Toxin 1 or 2 detected.
03/21/25 21:00 Blood Culture - Final
Blood/Venous No Growth - Final Report
03/21/25 21:00 Blood Culture - Final
Blood/Venous No Growth - Final Report
03/21/25 21:16 Wound Culture - Final
Foot - Left Enterococcus faecalis - VRE
Anna albicans
Gram Stain - Final
03/24/25 12:53 C. difficile GDH Antigen & Toxins - Final
Feces/Stool C. difficile antigen positive, toxin negative.
Clostridium difficile present, but toxin not detected.
Patient may be a carrier, colonized with nontoxinogenic
strain or the level of toxin in sample is below detection
limits. This information should be used in conjunction with
the patient's clinical history.
03/22/25 13:07 MRSA Screen - Final
Nose No Methicillin Resistant Staphylococcus aureus isolated.
[2025-04-27 12:27] LABS: Glucose - Point of Care 260 mg/dl (70-99)
[2025-04-27] MEDS: DILAUDID 0.5 MG IV ×4 (12:50→23:13)
[2025-04-27 14:32] VITALS: BP 107/53; PULSE 83; O2SAT 98
[2025-04-27 15:35] VITALS: BP 119/68
[2025-04-27 17:26] LABS: Glucose - Point of Care 171 mg/dl (70-99)
[2025-04-27] MEDS: NOVOLOG FLEXPEN-LOW RESISTANCE 1 UNITS SC (17:34)
[2025-04-27] MEDS: LOVENOX 40 MG SC (17:35)
[2025-04-27 19:57] VITALS: BP 168/93
[2025-04-27 21:15] LABS: Glucose - Point of Care 233 mg/dl (70-99)
[2025-04-27] MEDS: REMERON 30 MG PO (21:46)
[2025-04-27 23:00] VITALS: BP 159/81
[2025-04-28] MEDS: TYLENOL 1000 MG PO ×3 (05:51→17:37)
[2025-04-28] MEDS: DILAUDID 0.5 MG IV ×5 (05:51→20:46)
[2025-04-28 07:05] LABS: Hematocrit 23.9 % (39.0-52.0); Hemoglobin 7.5 g/dL (13.0-18.0); Mean Corp Hgb Conc. 31.4 g/dL (33.0-37.0); Mean Corpuscular Volume 91.6 fL (80.0-94.0); Platelet Count 440 10^3/uL (130-400); Red Cell Dist. Width 15.1 % (11.5-14.5)
[2025-04-28 07:11] LABS: ALT (SGPT) 10 U/L (0-50); AST (SGOT) 11 U/L (17-59); Albumin 2.8 g/dl (3.5-5.0); Alkaline Phosphatase 80 U/L (38-126); Blood Urea Nitrogen 22 mg/dl (9-20); Calcium 8.7 mg/dl (8.4-10.2); Carbon Dioxide 26 mmol/L (22-30); Chloride 109 mmol/L (98-107); Estimated Creatinine Clearance > 125 ml/min; Glucose 213 mg/dl (70-99); Potassium 4.2 mmol/L (3.5-5.1); Sodium 139 mmol/L (135-145); Total Protein 6.0 g/dl (6.3-8.2); eGFR > 60.00
[2025-04-28 08:15] VITALS: BP 116/71
--- NOTE | 2025-04-28 08:15 | PN.DE.MGMTRT ---
Insulin Management
- -
04/28/2025: Diabetes Management Follow up
Patient admitted from [facility] 03/21 with c/o bleeding L heel wound. PMH type 1 diabetes, R BKA, L toe amputation, recent debridement L heel, Guillian [place], CHF, HTN, CKD, [place], recent admission 01/21 and 03/05 s/p
transmetatarsal L amputation and debridement. Prior to admission was receiving Lantus 30 units BID with Humalog insulin ss AC. A1C on admission 6.9%, (improved from 8.1%). Cr 1.1, eGFR > 60 today.
Prior to incarceration was living in a [facility] per patient he will return there.
Patient awake, alert, oriented, sitting up in bed, able to discuss diabetes care plan. States he doesn't know why his glucose is variable.
POD# 7 s/p Left BKA, doing well, per vascular incision clean dry and intact. Hgb stable 7.5, Cr 1, eGFR >60 today.
Pt had an episode of Hypoglycemia on 04/23, his mealtime insulin was discontinued and Lantus dose was reduced to 5 units.
Glucose has been labile > 300 then down to 80. Lantus dose was decreased to 5 units BID, glucose > 300. Lantus dose increased to 20 units BID 04/25. Glucose improved 234 to 284, HS glucose 326.
04/26 Fasting glucose 322. Resumed lantus 25 units BID, continue 8 units novolog ac with corrective insulin.
04/27 Fasting glucose 291. Will continue lantus 25 units BD and increase novolog to 10 units AC with low corrective.
Discussed with nurse, he will hold ac novolog if patient does not eat.
Will cont to follow and adjust insulin dose if necessary.
Diabetes History
- -
Type of Diabetes: 1
Pre-Admission Diabetes Regimen
04/27/25 04/28/25
07:35 06:35
Creatinine 1.1 1.0
Lab Results
Hemoglobin A1c 6.9 % (4.0-5.6) H 03/22/25 06:24
Insulin Pump Settings
IP Diabetes Regimen
04/27/25 04/27/25 04/27/25
07:35 12:26 17:25
Glucose 288 H
POC Glucose 260 H 171 H
04/27/25 04/28/25
21:14 06:35
Glucose 213 H
POC Glucose 233 H
Meal type: Dinner
Meal type: Lunch
Meal type: Breakfast
Amount consumed: 100%
Amount consumed: 100%
Amount consumed: 100%
Patient Education
[2025-04-28 08:21] LABS: Glucose - Point of Care 264 mg/dl (70-99)
[2025-04-28] MEDS: NOVOLOG FLEXPEN 10 UNITS SC ×3 (09:01→17:35)
[2025-04-28] MEDS: NOVOLOG FLEXPEN-LOW RESISTANCE 3 UNITS SC (09:02)
[2025-04-28] MEDS: LANTUS 0.25 UNITS SC ×2 (09:03→22:13)
[2025-04-28] MEDS: NEURONTIN 300 MG PO ×3 (09:04→22:14)
[2025-04-28] MEDS: FEOSOL 325 MG PO ×2 (09:04→20:41)
[2025-04-28] MEDS: PROTONIX 40 MG PO (09:04)
[2025-04-28] MEDS: COREG 25 MG PO ×2 (09:04→20:41)
[2025-04-28] MEDS: IMDUR (EXTENDED RELEASE) 60 MG PO (09:04)
[2025-04-28] MEDS: RANEXA EXTENDED RELEASE 1000 MG PO ×2 (09:05→20:40)
[2025-04-28] MEDS: ASPIR LOW (ENTERIC COATED) 81 MG PO (09:05)
[2025-04-28] MEDS: CYMBALTA DELAYED RELEASE 30 MG PO (09:05)
[2025-04-28] MEDS: NOVOLOG FLEXPEN SC (09:12)
--- NOTE | 2025-04-28 09:21 | W.PN.UPDATE ---
Update Note
Progress Note Update
I saw the patient and evaluated the patient with the residents.
A/P:
# Left foot Osteomyelitis with TMA site wound dehiscence with necrosis
Failed multiple revisions
s/p left BKA 04/21/25
stump looks clean, off Abx daptomycin and ceftaz/avibactam
Hgb today at 7.5
Mild bleeding noted at the stump, will ask anti tank missileman to apply gelfoam/ steristrip
cont to monitor Hgb closely
He has received a total of 12 units PRBC thus far
Stopped Dilaudid DIE CUTTER OPERATOR and switch to Dilaudid IV PRN
# New fever 04/27, appears to have resolved
Repeat blood cultures from 04/27 so far negative
urine culture 04/27 no growth, CXR NAD , COVID from 04/27 negative
ID reconsulted , recc to observe off Abx for now
# Hypoactive delirium 04/24 likely due to opiate overdose, resolved
# Acute hypoxic respiratory insufficiency 2/2 above, resolved
s/p Narcan x1 dose 04/24
Stopped further Dilaudid DIE CUTTER OPERATOR and switched to Dilaudid IV PRN
Weaned back to RA
# Right BKA stump with superficial scab over bony prominence, likely due to pt manipulating/picking the area
Possible outpt revision of stump per vascular
# IDDM
# Type 1 diabetes with neuropathy
HgbA1C 6.9% on 03/21/25
resolved hypoglycemia, Lantus adjusted back to 25 units BID by DM GAUGE CHECKER
Aspart added back at 8 units AC by DM GAUGE CHECKER
Cont ISS for coverage
Continue gabapentin, continue duloxetine for neuropathy
# AMBER on CKD 3
AMBER has resolved
SCr 1.0 today, at baseline
Monitor SCr
Other chronic medical conditions:
# CAD status post PCI
Cont ASA
Resume DAY CARE PROVIDER Plavix when Hgb remain stable
# CHF, stable
check daily weight
Resume DAY CARE PROVIDER torsemide at 10 mg daily (DAY CARE PROVIDER 40 mg)
Monitor SCr
# Hypertension
Cont home BP meds with holding parameter
# Guillain-Potts� syndrome/CIDP, plasma exchange q 2 months
# PAD status post right BKA
DVT ppx: Lovenox SQ
FC
total time 51 min
--- NOTE | 2025-04-28 10:00 | CM ---
Addendum entered by Daily Galeana 04/28/25 15:53:
Left additional message w/ Lidia. Spoke [facility] nurse, Brett, who confirmed that patient would get assistance from another inmate, who would be untrained, that will assist patient w/ what he says he needs. CM was told Lidia left at 3 pm and
would need her approval for patient to return at his current level.
Per PT, patient is now an assist of 1 as of today
Original Note:
CM spoke [facility] nursing administrator, Lidia, to discuss patient's need for assistance upon returning. CM shared that patient is not safe using his w/c as he is not independent w/ transfers at this time. Patient is requiring a min assist of 2. Lidia
confirmed that patient wouldn't be able to get that level of care, he is able to be assisted w/ getting wheeled for longer distances such as the dispensary but he would need to be able to transfer in out of w/c independently and complete toilet
transfers independently. CM discussed the option of OP therapy for patient, Lidia stated the staffing is already completed for the next month with other inmate appointments and not sure if multiple times of week for OP is feasible. Lidia
transferred CM to speak barbie/ Magy, the mechanical and auto body car checker. CM spoke w/ Magy about patient participating in OP therapy a few times a week to work on new deficits. Magy stated the schedule is horrible for the rest of the month but patient can do at least once
or twice a week. Next availability patient can do OP is on 05/05 and then twice a week at the beginning of May.
Updated PT supervisor alum plant and PA
Left additional message to Lidia to confirm if patient is able to return at this level or not and to also confirm if there is an available person to support patient upon his return such as a caregiver and any other additional accommodations.
[facility]
Report: [phone]

Plan: Return to [facility] once a safe d/c plan is made
--- NOTE | 2025-04-28 11:34 | W.PN.ID1 ---
Date of Service
Date of Service: April 28, 2025
Today's Communication
Repeat COVID Ag tomorrow.
Observe off abx
Assessment / Plan
# Fever - resolving
- Bcx's x 2 negative to date
- Ordered COVID19 Ag - resulted negative
- Ordered UA/rflx Ucx. UA 2+LE, 30-40WBC, Ucx No growth
- Ordered CXR: no consolidation
- Left BKA stump clean without infection
- Repeat COVID 19 ag tomorrow (48hrs from first one) as sensitivity is low early COVID.
- Observe off abx.
# Osteomyelitis Left foot TMA site wound dehiscence with necrosis
- Failed multiple revisions
- 04/21/25 s/p left BKA
- s/p daptomycin and ceftaz/avibactam, dc'd on 04/25.
- Stump overall clean with mild blood oozing. Hospitalist consulted Wound Care.
# Right BKA stump superficial scab over bony prominence.
- Possible eventual revision of stump
# Leukocytosis post-op
- Resolved
# AMBER-postop, resolved
# Allergies: PCN, cephalosporin, meropenem, Vancomycin; tolerated Avyzaz
# Incarcerated
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
Diabetes mellitus
CAD status post PCI
CHF
hx CKD3
Hypertension
Guillain-Potts� syndrome/CIDP, plasma exchange q 2 months
PAD status post right BKA
Left hallux and second toe osteomyelitis status post amputation and debridement of left heel ulcer January 21, 2025
Left foot TMA, I+D left heel wound and bone biopsy of heel (neg osteo) Mar 08, 2025 (path surgical cure)
Chief Complaint
-: Other (Foot wound)
Subjective / Review of Systems
had shaking chills last night. mild SHANNON. No rhinorrhea/sore throat.
Vital Signs / Physical Exam
Vital Signs
Vital Signs
Temp Pulse Resp BP Pulse Ox
97.9 F 75 16 116/71 97
04/28/25 08:15 04/28/25 08:15 04/28/25 08:15 04/28/25 08:15 04/28/25 08:15
Physical Exam
Constitutional: No Acute Distress and Comfortable
Cardiovascular: Regular Rate and S1/S2
Pulmonary: Clear
Gastrointestinal: Soft, Non Tender and Non Distended
Genito-Urinary: Negative CVA Tenderness
Musculoskeletal: Negative Spinal Tenderness
Wound: Other (Left BKA stump incision intact, no erythema/induration/warmth; small amt of blood oozing from anterior incision. )
Neurological: AO x 3
Objective Data
Lab Data
Lab Results
04/28/25 06:35
04/28/25 06:35
ESR Cancelled 04/17/25 10:48
PT 13.7 Sec (11.4-14.6) 04/17/25 06:33
INR 1.02 04/17/25 06:33
APTT 33.8 Sec (23.4-35.0) 04/17/25 06:33
Estimated Creat Clear > 125 ml/min 04/28/25 06:35
Lactic Acid 0.8 mmol/L (0.7-2.0) 03/25/25 01:16
Total Bilirubin 0.3 mg/dl (0.2-1.3) 04/28/25 06:35
AST 11 U/L (17-59) L 04/28/25 06:35
ALT 10 U/L (0-50) 04/28/25 06:35
Alkaline Phosphatase 80 U/L (38-126) 04/28/25 06:35
Most recent labs reviewed.
Micro Results:
04/27/25 09:32 Blood Culture - Preliminary
Blood/Venous No Growth in 24 hours- Final report to follow
04/27/25 10:24 Urine Culture - Final
Urine NO GROWTH
04/27/25 08:33 Blood Culture - Preliminary
Blood/Venous No Growth in 24 hours- Final report to follow
03/25/25 16:52 Fungal Culture - Final
Foot - Left Anna albicans
04/13/25 16:07 Wound Culture - Final
Foot - Left Enterobacter cloacae
Gram Stain - Final
04/13/25 16:07 Anaerobic Culture - Final
Foot - Left NO ANAEROBES ISOLATED
04/04/25 16:30 Wound Culture - Final
Foot - Left Enterobacter cloacae
Gram Stain - Final
04/04/25 16:30 Anaerobic Culture - Final
Foot - Left NO ANAEROBES ISOLATED
03/31/25 10:51 Blood Culture - Final
Blood/Venous No Growth - Final Report
03/31/25 10:22 Blood Culture - Final
Blood/Venous No Growth - Final Report
03/25/25 09:33 Blood Culture - Final
Blood/Venous No Growth - Final Report
03/25/25 16:56 Wound Culture - Final
Foot - Left Staph aureus MRSA
Enterococcus faecalis - VRE
Gram Stain - Final
03/25/25 16:56 Anaerobic Culture - Final
Foot - Left NO ANAEROBES ISOLATED
03/25/25 16:52 Wound Culture - Final
Foot - Left Staph aureus MRSA
Enterococcus faecalis - VRE
Gram Stain - Final
03/25/25 16:52 Anaerobic Culture - Final
Foot - Left NO ANAEROBES ISOLATED
03/25/25 01:16 Blood Culture - Final
Blood/Venous No Growth - Final Report
03/27/25 10:35 Urine Culture - Final
Urine Anna albicans
03/24/25 12:51 Salmonella/Shigella Culture - Final
Feces/Stool No Salmonella, Shigella, Aeromonas or Plesiomonas species
isolated.
Campylobacter Culture - Final
No Campylobacter species isolated.
Shiga Toxin Test - Final
No E. coli Shiga Toxin 1 or 2 detected.
03/21/25 21:00 Blood Culture - Final
Blood/Venous No Growth - Final Report
03/21/25 21:00 Blood Culture - Final
Blood/Venous No Growth - Final Report
03/21/25 21:16 Wound Culture - Final
Foot - Left Enterococcus faecalis - VRE
Anna albicans
Gram Stain - Final
03/24/25 12:53 C. difficile GDH Antigen & Toxins - Final
Feces/Stool C. difficile antigen positive, toxin negative.
Clostridium difficile present, but toxin not detected.
Patient may be a carrier, colonized with nontoxinogenic
strain or the level of toxin in sample is below detection
limits. This information should be used in conjunction with
the patient's clinical history.
03/22/25 13:07 MRSA Screen - Final
Nose No Methicillin Resistant Staphylococcus aureus isolated.
Care Review
Plan reviewed with: Physician (Drs. Perez, Raymond)
--- NOTE | 2025-04-28 11:43 | WOUNDNOTE ---
L BKA (LATERAL ANTERIOR)
--- NOTE | 2025-04-28 11:44 | WOUNDNOTE ---
Geovanna JACOBSON STUMP
--- NOTE | 2025-04-28 11:44 | WOUNDNOTE ---
R BKA STUMP (DISTAL)
[2025-04-28 11:54] LABS: Glucose - Point of Care 173 mg/dl (70-99)
--- NOTE | 2025-04-28 11:57 | WOUNDNOTE ---
[facility] RN note: Patient's L BKA dressing was removed by ID today. BRYN Swain asked this television script writer to look at L BKA. Incision with trino intact. Moderate sanguinous drainage on underpad. No active bleeding from incision. No erythema. Adger intact.
Dressing applied with ABD pads, Kerlix and Hemal. R distal stump with several dry small scabs suspect r/t stump bony prominence. Patient stated R BKA stump scabs have been there for months. Scabs swabbed with Betadine, silicone border foam applied.
Patient's sacrum intact. Scrotal MASD from spilled urine. Calazime ointment applied. Underpad changed. Air chair cushion placed under R BKA stump. Patient turns self in bed. [place] texted Mary Kay Krause vascular Pa and requested clarification of
gelfoam, steri strip order and asked if okay with R stump local care. Mary Kay Mccullough and Grisel, Crushing Machine Operator's were up to see patient. Mary Kay stated no need to use Gelfoam or steri stip to L BKA and approved local care to R BKA abrasions. Discussed with RN
Wiliam. Care plan to be updated. Will sign off. Call if needed.
--- NOTE | 2025-04-28 12:07 | W.PN.HOSP.TC ---
Today's Communication/Plan
-
Observing off of abx
LBKA wound stable - dressing clean - mild oozing noted
Assessment / Plan
Assessment / Plan
HPI: 29-year-old male with PMHx significant for insulin-dependent type 1 diabetes mellitus, CIDP, Hypertension, GERD, CKD stage IIIA, history of osteomyelitis and TMA is admitted to the hospital for evaluation and management of acute blood loss
anemia from TMA wound dehiscence.
Assessment/Plan:
-Left foot TMA site with wound dehiscence:
-History of left foot TMA on 03/08:
-Acute bleed: from site of L TMA and Heel Debridement (03/25 and 04/08)
-Acute blood Loss Anemia secondary to the above:
Vascular ultrasound showed no significant arterial stenosis on the left however Doppler waveforms suggest disease within the distal SFA/popliteal artery and infrapopliteal disease may also be present as per arterial studies. Multiple lymph nodes
were also seen in the left thigh which may be reactive.
Wound cultures grew MRSA, VRE
Blood cultures did not show any growth
Underwent ultrasound of the left lower extremity did not show any evidence of DVT
Iron supplementation continue
Continue monitoring hemoglobin daily and transfuse as needed to maintain hemoglobin greater than 7
Status postdebridement 03/25.
Pathology results came back which showed focal acute osteomyelitis and detached fragment of fibrino-purulent exudate
Patient underwent his open TMA revision and wound debridement on 04/04 -there was significant drainage postoperatively - pathology positive for acute and chronic osteomyelitis
Wound culture from 04/04 positive for Enterobacter Cloacae
Podiatry recommends nonweightbearing to the left lower extremity and continued elevation of the extremity on 2-3 pillows
Patient's lab work on the morning of 04/07/2025 had a hemoglobin at 7.1 with a hematocrit of 20.7�repeat H&H ordered which was 6.7 - 1 PRBC ordered on 04/07/25
Podiatry has tentatively planned for revision surgery of the L foot after pathology returns from most recent debridement on 04/06/25
Patient had an episode of acute blood loss on 04/08/2025 where a large amount of blood was lost from his foot wound. 1 PRBC given on 04/08/25
Scheduled for OR with podiatry for debridement vs lisfranc disarticulation on 04/13/25 - procedure tolerated well
Patient's Hgb is 7.5 on 04/15/25 - will continue to follow - if <7 then will transfuse PRBCs
Patient received 1 unit of PRBCs on 04/16/2025
Continue Holding anticoagulants postoperatively - will resume near discharge date
Appreciate hematology recommendations -they are under the impression that the patient is suffering from some element of WILBER and recommended continuing with oral iron supplement.
We have initiated anemia workup with LDH at 171, haptoglobin pending, Positive Candie test, 1+ BOBBY IgG, stool heme test, and PT/PTT were within normal limits. Based on positive Candie test, consider drug-induced immune hemolytic anemia, delayed
hemolytic transfusion reaction, or cold agglutinin disease
Abdominal ultrasound found that the liver and spleen were within normal limits in size without hepatosplenomegaly. No ascites. Tiny gallstones without sonographic features of acute cholecystitis. No bile duct dilatation.
Most recent pathology from left foot metatarsal was positive for chronic osteomyelitis with bone remodeling
Patient tolerated his Left BKA and is recovering postoperatively. POD 5 on 04/25/24 for L BKA
As per ID recommendations - Stump looks clean, discontinued Daptomycin and Ceftazidime/Avibactam and plan for DC
Patient spiked a fever on 04/27/25 with 101.1 temp. Reconsulted ID, CXR ordered, COVID negative, UA with reflex to culture ordered, BCs x2 ordered.
-Right BKA: Stable/monitoring
gauze and wrapped dressing provided to avoid further irritation to the site. Patient may be accidentally irritating the area.
-Hypoactive delirium likely due to opiate overdose: Improving
Narcan x1 dose 04/24
Stopped Dilaudid PRODUCT MGR and switch to Dilaudid IV PRN
Continue Dilaudid
-Hyperkalemia: Resolved
Patient was hyperkalemic with postassium of 5.5 on 04/14/25
Lokelma given, Insulin adjusted to home dose.
Repeat potassium on 04/15/25 is 4.9 - within normal limits.
Potassium was 5.7 on 04/18/2025�Lokelma given�Will repeat with BMP
Torsemide has been resumed
-Itchy rash:
Continue IV Benadryl
-Diarrhea:
Check stool sample for C. difficile if loose stool continues
- Urinary retention:
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
Patient self caths
Castillo catheter has been discontinued. Patient will be able to self cath as he usually does this in the outpatient setting
- History of ASCVD
- Status post stent palcement
- Chest pain:
EKG/troponin negative for any acute process
ASA held
Plavix 75mg held
Statin held
Continue Ranolazine
Continue Carvedilol
Type 1 diabetes with Hyperglycemia and neuropathy: Monitoring
A1C = 8.1% in January. Hba1c on 03/21/25 was 6.9 indicating improvement in overall glycemic control
Diabetes WORKERS COMPENSATION SPECIALIST consulted, recommendations appreciated
Continue gabapentin, continue duloxetine
Lantus adjusted to 25 units, Aspart adjusted to 8 units at breakfast, lunch and dinner.
-AMBER on CKD IIIa: Unresolved
Continue to monitoring creatinine, has been hovering around 1.4/1.5
Urine studies show pre-renal cause, likely from hypovolemic state
Continued elevated creatinine level at 1.6 on 04/04/2025
Continue monitoring BMP.
Torsemide resumed
IV fluid support
-GERD
Continue Pantoprazole
-Chronic inflammatory demyelinating polyneuropathy:
Continue current meds, will need to arrange for PLEX in outpatient setting once discharged
FULL CODE STATUS
Stress Ulcer Prophylaxis: Pantoprazole
DVT Prophylaxis: SCDs
Imaging:
-Left foot x-ray conducted on 03/21/2025:
Status post amputation at the level of the first through fifth proximal metatarsal bones.
No radiographic evidence for osteomyelitis.
- Bilateral lower extremity arterial ultrasound exam conducted on 03/23/2025:
1. Ankle-brachial indices and toe brachial indices could not be measured due to prior amputations.
2. No focal significant arterial stenosis demonstrated on the left side on duplex imaging. Spectral Doppler waveform analysis is suggestive of disease within the distal SFA/popliteal artery. Infrapopliteal disease may also be present.
3. Multiple lymph nodes are seen within the left thigh, which may be reactive.
-Peripheral vascular ultrasound of the left lower extremity conducted on 03/31/2025:
No evidence of DVT of the left lower extremity.
Procedures:
03/03/2025-initial amputation of left transmetatarsal
03/25/2025-debridement of infected left metatarsal amputation
04/04/2025-revision debridement of left heel wound with calcaneal biopsy.
Anticipated Discharge: 24 - 48 hours
Subjective/Interval History
-
Date of Service: April 28, 2025
Met with patient at the bedside. He felt feverish overnight but unfortunately there are no correlating lab values or vitals that are documented that endorse a fever. His diarrhea has improved and has not needed immodium. He is resting comfortably in
bed watching cartoons. No shortness of breath, chest tightness, or chest pain.
Objective Data
-
Labs:
Laboratory Results
04/28/25
06:35
WBC 9.4
Hgb 7.5 L
Hct 23.9 L
Plt Count 440 H
Sodium 139
Potassium 4.2
Chloride 109 H
Carbon Dioxide 26
BUN 22 H
Creatinine 1.0
Glucose 213 H
Calcium 8.7
Total Bilirubin 0.3
AST 11 L
ALT 10
Alkaline Phosphatase 80
Vital Signs:
Vital Signs
Temp Pulse Resp BP Pulse Ox
97.9 F 75 16 116/71 97
04/28/25 08:15 04/28/25 08:15 04/28/25 08:15 04/28/25 08:15 04/28/25 08:15
I&O
04/27/25 04/28/25 04/29/25
06:59 06:59 06:59
Intake Total 1710 / 1710
Output Total 2500 / 2500 2350 / 2350
Balance -2500 / -2500 -640 / -640
Review of Systems
-
History Source: Patient
Constitutional: Reports Fatigue
EENT: Reports No Symptoms Reported
Respiratory: Reports No Symptoms
Cardiac: Reports No Symptoms
Abdomen/GI: Reports No Symptoms
Breast: Reports No Symptoms
Musculoskeletal: Reports Joint Pain (Left Lower Limb) and Muscle Pain (Left Lower Limb)
Neuro: Reports No Symptoms
Endocrine: Reports No Symptoms
Physical Exam
-
General: Well Developed, Well Nourished, Comfortable, Conversant and Obese
HEENT: Normocephalic and Atraumatic
Respiratory: Clear to Auscultation and Non Labored Respirations; Negative Wheezes, Rales, Rhonchi or Crackles
Cardiac: Regular Rhythm and S1/S2; Negative Murmur, Calf Tenderness or Tachycardic
GI: Soft, Nontender, Nondistended and Normal Bowel Sounds; Negative Organomegaly
Genito-urinary: No Costovertebral Tender, Clear Urine and Castillo
Musculoskeletal: No Clubbing, No Cyanosis and Other (R BKA with superficial scab/ulcer and no infection. L BKA with clean dressing)
Skin: Warm and Dry; Negative Rash or Ulcers
Neuro: Awake, Alert, Oriented, AO x 3 and No Sensory Deficits
Psych: Calm
--- NOTE | 2025-04-28 12:21 | W.PN.UPDATE ---
Update Note
Progress Note Update
Pt seen at bedside with Dr Paris this afternoon. adoption specialist concerned for oozing at BKA site. Site unwrapped, no active ooze noted, old blood on dressing. Rewrapped with leilani and shilpi at bedside. Recommend SHILPI compression, elevation while in bed.
(Dressing should be changed daily and when soiled)
[2025-04-28] MEDS: DEMADEX 10 MG PO (12:32)
[2025-04-28] MEDS: NOVOLOG FLEXPEN-LOW RESISTANCE 1 UNITS SC ×2 (12:34→17:35)
[2025-04-28 15:13] VITALS: BP 130/74; PULSE 81; O2SAT 96
[2025-04-28 15:41] VITALS: BP 101/56
[2025-04-28 16:56] LABS: Glucose - Point of Care 164 mg/dl (70-99)
[2025-04-28] MEDS: LOVENOX 40 MG SC (17:36)
[2025-04-28 21:49] LABS: Glucose - Point of Care 283 mg/dl (70-99)
[2025-04-28] MEDS: REMERON 30 MG PO (22:14)
[2025-04-28 23:35] VITALS: BP 150/70
[2025-04-29] MEDS: TYLENOL 1000 MG PO ×4 (00:07→17:37)
[2025-04-29] MEDS: DILAUDID 0.5 MG IV ×5 (00:07→20:10)
[2025-04-29 05:51] VITALS: BMI 31.9
[2025-04-29 07:34] VITALS: BP 115/64
--- NOTE | 2025-04-29 07:45 | PN.DE.MGMTRT ---
Insulin Management
- -
04/29/2025: Diabetes Management Follow up
Patient admitted from [facility] 03/21 with c/o bleeding L heel wound. PMH type 1 diabetes, R BKA, L toe amputation, recent debridement L heel, [place], CHF, HTN, CKD, RI, recent admission 01/21 and 03/05 s/p
transmetatarsal L amputation and debridement. Prior to admission was receiving Lantus 30 units BID with Humalog insulin ss AC. A1C on admission 6.9%, (improved from 8.1%). Cr 1.1, eGFR > 60 today.
Prior to incarceration was living in a halfway per patient he will return there.
Patient awake, alert, oriented, sitting up in bed, able to discuss diabetes care plan. States he doesn't know why his glucose is variable.
POD# 8 s/p Left BKA, doing well, per vascular incision clean dry and intact. Hgb stable 7.3, Cr 1, eGFR >60 today.
Pt had an episode of Hypoglycemia on 04/23, his mealtime insulin was discontinued and Lantus dose was reduced to 5 units BID, glucose > 300.
Lantus dose increased to 20 units BID 04/25. Glucose improved 234 to 284, HS glucose 326.
AC NovoLog dose was increased yesterday for persistent Hyperglycemia >200
04/29 Fasting glucose 151 V 149 POC. Will make no changes to current regimen. continue Lantus 25 units BD and NovoLog 10 units AC with low corrective.
Discussed with nurse, he will hold AC NovoLog if patient does not eat.
Will cont to follow and adjust insulin dose if necessary.
Diabetes History
- -
Type of Diabetes: 1
Pre-Admission Diabetes Regimen
Lab Results
Hemoglobin A1c 6.9 % (4.0-5.6) H 03/22/25 06:24
Insulin Pump Settings
IP Diabetes Regimen
04/28/25 04/28/25 04/28/25
08:20 11:53 16:55
POC Glucose 264 H 173 H 164 H
04/28/25
21:43
POC Glucose 283 H
Meal type: Lunch
Meal type: Breakfast
Amount consumed: 100%
Amount consumed: 100%
Patient Education
[2025-04-29 08:21] LABS: Hematocrit 24.1 % (39.0-52.0); Hemoglobin 7.3 g/dL (13.0-18.0); Mean Corp Hgb Conc. 30.3 g/dL (33.0-37.0); Mean Corpuscular Volume 93.8 fL (80.0-94.0); Platelet Count 490 10^3/uL (130-400); Red Cell Dist. Width 15.0 % (11.5-14.5)
[2025-04-29 08:21] LABS: Glucose - Point of Care 149 mg/dl (70-99)
[2025-04-29 08:42] LABS: ALT (SGPT) < 10 U/L (0-50); AST (SGOT) 10 U/L (17-59); Albumin 2.9 g/dl (3.5-5.0); Alkaline Phosphatase 75 U/L (38-126); Blood Urea Nitrogen 22 mg/dl (9-20); Calcium 8.6 mg/dl (8.4-10.2); Carbon Dioxide 28 mmol/L (22-30); Chloride 107 mmol/L (98-107); Estimated Creatinine Clearance > 125 ml/min; Glucose 151 mg/dl (70-99); Potassium 4.4 mmol/L (3.5-5.1); Sodium 140 mmol/L (135-145); Total Protein 6.2 g/dl (6.3-8.2); eGFR > 60.00
[2025-04-29 09:14] LABS: COVID-19 Antigen Negative (Negative)
[2025-04-29] MEDS: CYMBALTA DELAYED RELEASE 30 MG PO (09:17)
[2025-04-29] MEDS: DEMADEX 10 MG PO (09:18)
[2025-04-29] MEDS: NEURONTIN 300 MG PO ×3 (09:20→22:04)
[2025-04-29] MEDS: COREG 25 MG PO ×2 (09:21→20:12)
[2025-04-29] MEDS: IMDUR (EXTENDED RELEASE) 60 MG PO (09:21)
[2025-04-29] MEDS: ASPIR LOW (ENTERIC COATED) 81 MG PO (09:21)
[2025-04-29] MEDS: RANEXA EXTENDED RELEASE 1000 MG PO ×2 (09:21→20:09)
[2025-04-29] MEDS: PROTONIX 40 MG PO (09:22)
[2025-04-29] MEDS: FEOSOL 325 MG PO ×2 (09:22→20:10)
[2025-04-29] MEDS: LANTUS 0.25 UNITS SC ×2 (09:22→22:04)
[2025-04-29] MEDS: NOVOLOG FLEXPEN-LOW RESISTANCE SC ×3 (09:25→17:38)
--- NOTE | 2025-04-29 09:44 | W.PN.UPDATE ---
Update Note
Progress Note Update
I saw the patient and evaluated the patient with the residents.
A/P:
# Left foot Osteomyelitis with TMA site wound dehiscence with necrosis
Failed multiple revisions
s/p left BKA 04/21/25
stump looks clean, off Abx daptomycin and ceftaz/avibactam
Hgb today at 7.3
Mild bleeding noted at the stump 04/28, asked help desk support specialist to apply gelfoam/ steristrip, bleeding appear to have stopped
cont to monitor Hgb closely
He has received a total of 12 units PRBC thus far
Stopped Dilaudid INTERNAL MEDICINE NURSE and switch to Dilaudid IV PRN
# New fever 04/27, appears to have resolved
Repeat blood cultures from 04/27 so far negative
urine culture 04/27 no growth, CXR NAD , COVID from 04/27 negative
ID recc to observe off Abx for now
# Hypoactive delirium 04/24 likely due to opiate overdose, resolved
# Acute hypoxic respiratory insufficiency 2/2 above, resolved
s/p Narcan x1 dose 04/24
Stopped further Dilaudid INTERNAL MEDICINE NURSE and switched to Dilaudid IV PRN
Weaned back to RA
# Right BKA stump with superficial scab over bony prominence, likely due to pt manipulating/picking the area
Possible outpt revision of stump per vascular
# IDDM
# Type 1 diabetes with neuropathy
HgbA1C 6.9% on 03/21/25
resolved hypoglycemia, Lantus adjusted back to 25 units BID by DM GYNECOLOGIST
Aspart added back at 8 units AC by DM GYNECOLOGIST
Cont ISS for coverage
Continue gabapentin, continue duloxetine for neuropathy
# AMBER on CKD 3
AMBER has resolved
SCr 1.0 today, at baseline
Monitor SCr
Other chronic medical conditions:
# CAD status post PCI
Cont ASA
Resume WINE MASTER Plavix when Hgb remain stable
# CHF, stable
check daily weight
Resumed WINE MASTER torsemide at 10 mg daily (WINE MASTER 40 mg)
Monitor SCr
# Hypertension
Cont home BP meds with holding parameter
# Guillain-Potts� syndrome/CIDP, plasma exchange q 2 months
# PAD status post right BKA
DVT ppx: Lovenox SQ
FC
Dispo: unclear, hoping to discharge him back to detention, but CM checking if detention can take back with his current his level of care
[2025-04-29] MEDS: NOVOLOG FLEXPEN 10 UNITS SC ×3 (09:59→18:39)
--- NOTE | 2025-04-29 11:04 | W.PN.ID1 ---
Date of Service
Date of Service: April 29, 2025
Today's Communication
- Repeat COVID 19 ag remains negative
- stable for d/c from ID perspective
Assessment / Plan
# Fever - resolving
- Bcx's x 2 negative to date
- Ordered COVID19 Ag - resulted negative
- Ordered UA/rflx Ucx. UA 2+LE, 30-40WBC, Ucx No growth
- Ordered CXR: no consolidation
- Left BKA stump clean without infection
- Repeat COVID 19 ag remains negative
- stable for d/c from ID perspective
# Osteomyelitis Left foot TMA site wound dehiscence with necrosis
- Failed multiple revisions
- 04/21/25 s/p left BKA
- s/p daptomycin and ceftaz/avibactam, dc'd on 04/25.
- Stump overall clean with mild blood oozing. Hospitalist consulted Wound Care.
# Right BKA stump superficial scab over bony prominence.
- Possible eventual revision of stump
# Leukocytosis post-op
- Resolved
# AMBER-postop, resolved
# Allergies: PCN, cephalosporin, meropenem, Vancomycin; tolerated Avyzaz
# Incarcerated
Conditions RESIN REMOVER
Diabetes mellitus
CAD status post PCI
CHF
hx CKD3
Hypertension
Guillain-Potts� syndrome/CIDP, plasma exchange q 2 months
PAD status post right BKA
Left hallux and second toe osteomyelitis status post amputation and debridement of left heel ulcer January 21, 2025
Left foot TMA, I+D left heel wound and bone biopsy of heel (neg osteo) Mar 08, 2025 (path surgical cure)
Chief Complaint
-: Other (Foot wound)
Subjective / Review of Systems
afebrile
bp stable
complaining of congestion
Vital Signs / Physical Exam
Vital Signs
Vital Signs
Temp Pulse Resp BP Pulse Ox
98.0 F 81 16 115/64 97
04/29/25 07:34 04/29/25 07:34 04/29/25 07:34 04/29/25 07:34 04/29/25 07:34
Physical Exam
Constitutional: No Acute Distress
Cardiovascular: Regular Rate and S1/S2; Negative Murmur or Rub
Pulmonary: Clear and Symmetric; Negative Wheezes or Rales
Gastrointestinal: Soft, Non Tender, Non Distended and Normal Bowel Sounds
Skin: Warm and Dry; Negative Rash or Jaundice
Objective Data
Lab Data
Lab Results
04/29/25 07:42
04/29/25 07:41
ESR Cancelled 04/17/25 10:48
PT 13.7 Sec (11.4-14.6) 04/17/25 06:33
INR 1.02 04/17/25 06:33
APTT 33.8 Sec (23.4-35.0) 04/17/25 06:33
Estimated Creat Clear > 125 ml/min 04/29/25 07:41
Lactic Acid 0.8 mmol/L (0.7-2.0) 03/25/25 01:16
Total Bilirubin 0.3 mg/dl (0.2-1.3) 04/29/25 07:41
AST 10 U/L (17-59) L 04/29/25 07:41
ALT < 10 U/L (0-50) 04/29/25 07:41
Alkaline Phosphatase 75 U/L (38-126) 04/29/25 07:41
Most recent labs reviewed.
Micro Results:
04/27/25 09:32 Blood Culture - Preliminary
Blood/Venous No Growth in 48 hours- Final report to follow
04/27/25 08:33 Blood Culture - Preliminary
Blood/Venous No Growth in 48 hours- Final report to follow
04/27/25 10:24 Urine Culture - Final
Urine NO GROWTH
03/25/25 16:52 Fungal Culture - Final
Foot - Left Anan albicans
04/13/25 16:07 Wound Culture - Final
Foot - Left Enterobacter cloacae
Gram Stain - Final
04/13/25 16:07 Anaerobic Culture - Final
Foot - Left NO ANAEROBES ISOLATED
04/04/25 16:30 Wound Culture - Final
Foot - Left Enterobacter cloacae
Gram Stain - Final
04/04/25 16:30 Anaerobic Culture - Final
Foot - Left NO ANAEROBES ISOLATED
03/31/25 10:51 Blood Culture - Final
Blood/Venous No Growth - Final Report
03/31/25 10:22 Blood Culture - Final
Blood/Venous No Growth - Final Report
03/25/25 09:33 Blood Culture - Final
Blood/Venous No Growth - Final Report
03/25/25 16:56 Wound Culture - Final
Foot - Left Staph aureus MRSA
Enterococcus faecalis - VRE
Gram Stain - Final
03/25/25 16:56 Anaerobic Culture - Final
Foot - Left NO ANAEROBES ISOLATED
03/25/25 16:52 Wound Culture - Final
Foot - Left Staph aureus MRSA
Enterococcus faecalis - VRE
Gram Stain - Final
03/25/25 16:52 Anaerobic Culture - Final
Foot - Left NO ANAEROBES ISOLATED
03/25/25 01:16 Blood Culture - Final
Blood/Venous No Growth - Final Report
03/27/25 10:35 Urine Culture - Final
Urine Anna albicans
03/24/25 12:51 Salmonella/Shigella Culture - Final
Feces/Stool No Salmonella, Shigella, Aeromonas or Plesiomonas species
isolated.
Campylobacter Culture - Final
No Campylobacter species isolated.
Shiga Toxin Test - Final
No E. coli Shiga Toxin 1 or 2 detected.
03/21/25 21:00 Blood Culture - Final
Blood/Venous No Growth - Final Report
03/21/25 21:00 Blood Culture - Final
Blood/Venous No Growth - Final Report
03/21/25 21:16 Wound Culture - Final
Foot - Left Enterococcus faecalis - VRE
Anna albicans
Gram Stain - Final
03/24/25 12:53 C. difficile GDH Antigen & Toxins - Final
Feces/Stool C. difficile antigen positive, toxin negative.
Clostridium difficile present, but toxin not detected.
Patient may be a carrier, colonized with nontoxinogenic
strain or the level of toxin in sample is below detection
limits. This information should be used in conjunction with
the patient's clinical history.
03/22/25 13:07 MRSA Screen - Final
Nose No Methicillin Resistant Staphylococcus aureus isolated.
[2025-04-29 12:03] VITALS: BP 124/66; PULSE 84
[2025-04-29 12:05] VITALS: BP 124/66
[2025-04-29 12:39] LABS: Glucose - Point of Care 144 mg/dl (70-99)
--- NOTE | 2025-04-29 13:25 | W.PN.HOSP.TC ---
Today's Communication/Plan
-
Ongoing discharge planning with outpatient rehab
Assessment / Plan
Assessment / Plan
HPI: 29-year-old male with PMHx significant for insulin-dependent type 1 diabetes mellitus, CIDP, Hypertension, GERD, CKD stage IIIA, history of osteomyelitis and TMA is admitted to the hospital for evaluation and management of acute blood loss
anemia from TMA wound dehiscence.
Assessment/Plan:
-Left foot TMA site with wound dehiscence:
-History of left foot TMA on 03/08:
-Acute bleed: from site of L TMA and Heel Debridement (03/25 and 04/08)
-Acute blood Loss Anemia secondary to the above:
Vascular ultrasound showed no significant arterial stenosis on the left however Doppler waveforms suggest disease within the distal SFA/popliteal artery and infrapopliteal disease may also be present as per arterial studies. Multiple lymph nodes
were also seen in the left thigh which may be reactive.
Wound cultures grew MRSA, VRE
Blood cultures did not show any growth
Underwent ultrasound of the left lower extremity did not show any evidence of DVT
Iron supplementation continue
Continue monitoring hemoglobin daily and transfuse as needed to maintain hemoglobin greater than 7
Status postdebridement 03/25.
Pathology results came back which showed focal acute osteomyelitis and detached fragment of fibrino-purulent exudate
Patient underwent his open TMA revision and wound debridement on 04/04 -there was significant drainage postoperatively - pathology positive for acute and chronic osteomyelitis
Wound culture from 04/04 positive for Enterobacter Cloacae
Podiatry recommends nonweightbearing to the left lower extremity and continued elevation of the extremity on 2-3 pillows
Patient's lab work on the morning of 04/07/2025 had a hemoglobin at 7.1 with a hematocrit of 20.7�repeat H&H ordered which was 6.7 - 1 PRBC ordered on 04/07/25
Podiatry has tentatively planned for revision surgery of the L foot after pathology returns from most recent debridement on 04/06/25
Patient had an episode of acute blood loss on 04/08/2025 where a large amount of blood was lost from his foot wound. 1 PRBC given on 04/08/25
Scheduled for OR with podiatry for debridement vs lisfranc disarticulation on 04/13/25 - procedure tolerated well
Patient's Hgb is 7.5 on 04/15/25 - will continue to follow - if <7 then will transfuse PRBCs
Patient received 1 unit of PRBCs on 04/16/2025
Continue Holding anticoagulants postoperatively - will resume near discharge date
Appreciate hematology recommendations -they are under the impression that the patient is suffering from some element of WILBER and recommended continuing with oral iron supplement.
We have initiated anemia workup with LDH at 171, haptoglobin pending, Positive Candie test, 1+ BOBBY IgG, stool heme test, and PT/PTT were within normal limits. Based on positive Candie test, consider drug-induced immune hemolytic anemia, delayed
hemolytic transfusion reaction, or cold agglutinin disease
Abdominal ultrasound found that the liver and spleen were within normal limits in size without hepatosplenomegaly. No ascites. Tiny gallstones without sonographic features of acute cholecystitis. No bile duct dilatation.
Patient tolerated his Left BKA and is recovering postoperatively. POD 5 on 04/25/24 for L BKA
As per ID recommendations - Stump looks clean, discontinued Daptomycin and Ceftazidime/Avibactam and plan for DC
Patient spiked a fever on 04/27/25 with 101.1 temp. Reconsulted ID, CXR ordered, COVID negative, UA with reflex to culture ordered, BCs x2 ordered - BCs negative and COVID negative
Patient cleared for DC from ID perspective on 04/29/25
-Right BKA: Stable/monitoring
gauze and wrapped dressing provided to avoid further irritation to the site. Patient may be accidentally irritating the area.
-Hypoactive delirium likely due to opiate overdose: Improving
Narcan x1 dose 04/24
Stopped Dilaudid ELECTRICAL SOLDERER and switch to Dilaudid IV PRN
Continue Dilaudid
-Hyperkalemia: Resolved
Patient was hyperkalemic with postassium of 5.5 on 04/14/25
Lokelma given, Insulin adjusted to home dose.
Repeat potassium on 04/15/25 is 4.9 - within normal limits.
Potassium was 5.7 on 04/18/2025�Lokelma given�Will repeat with BMP
Torsemide has been resumed
-Itchy rash:
Continue IV Benadryl
-Diarrhea:
Check stool sample for C. difficile if loose stool continues
- Urinary retention:
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
Patient self caths
Castillo catheter has been discontinued. Patient will be able to self cath as he usually does this in the outpatient setting
- History of ASCVD
- Status post stent palcement
- Chest pain:
EKG/troponin negative for any acute process
ASA held
Plavix 75mg held
Statin held
Continue Ranolazine
Continue Carvedilol
Type 1 diabetes with Hyperglycemia and neuropathy: Monitoring
A1C = 8.1% in January. Hba1c on 03/21/25 was 6.9 indicating improvement in overall glycemic control
Diabetes FIRE ASSISTANT consulted, recommendations appreciated
Continue gabapentin, continue duloxetine
Lantus adjusted to 25 units, Aspart adjusted to 8 units at breakfast, lunch and dinner.
-AMBER on CKD IIIa: Unresolved
Continue to monitoring creatinine, has been hovering around 1.4/1.5
Urine studies show pre-renal cause, likely from hypovolemic state
Continued elevated creatinine level at 1.6 on 04/04/2025
Continue monitoring BMP.
Torsemide resumed
IV fluid support
-GERD
Continue Pantoprazole
-Chronic inflammatory demyelinating polyneuropathy:
Continue current meds, will need to arrange for PLEX in outpatient setting once discharged
FULL CODE STATUS
Stress Ulcer Prophylaxis: Pantoprazole
DVT Prophylaxis: SCDs
Imaging:
-Left foot x-ray conducted on 03/21/2025:
Status post amputation at the level of the first through fifth proximal metatarsal bones.
No radiographic evidence for osteomyelitis.
- Bilateral lower extremity arterial ultrasound exam conducted on 03/23/2025:
1. Ankle-brachial indices and toe brachial indices could not be measured due to prior amputations.
2. No focal significant arterial stenosis demonstrated on the left side on duplex imaging. Spectral Doppler waveform analysis is suggestive of disease within the distal SFA/popliteal artery. Infrapopliteal disease may also be present.
3. Multiple lymph nodes are seen within the left thigh, which may be reactive.
-Peripheral vascular ultrasound of the left lower extremity conducted on 03/31/2025:
No evidence of DVT of the left lower extremity.
Procedures:
03/03/2025-initial amputation of left transmetatarsal
03/25/2025-debridement of infected left metatarsal amputation
04/04/2025-revision debridement of left heel wound with calcaneal biopsy.
Anticipated Discharge: 24 - 48 hours
Subjective/Interval History
-
Date of Service: April 29, 2025
Met with patient at the bedside. Overall he remains the same as the day prior. He does not report any nausea, vomiting, or diarrhea. He does not have any shortness of breath, chest pain, or chest tightness. His left leg hurts near his wound closure.
Objective Data
-
Labs:
Laboratory Results
04/29/25 04/29/25
07:41 07:42
WBC 8.1
Hgb 7.3 L
Hct 24.1 L
Plt Count 490 H
Sodium 140
Potassium 4.4
Chloride 107
Carbon Dioxide 28
BUN 22 H
Creatinine 1.0
Glucose 151 H
Calcium 8.6
Total Bilirubin 0.3
AST 10 L
ALT < 10
Alkaline Phosphatase 75
Vital Signs:
Vital Signs
Temp Pulse Resp BP Pulse Ox
98.0 F 81 16 115/64 97
04/29/25 07:34 04/29/25 07:34 04/29/25 07:34 04/29/25 07:34 04/29/25 07:34
I&O
04/28/25 04/29/25 04/30/25
06:59 06:59 06:59
Intake Total 1710 / 1710 1680 / 1680
Output Total 2350 / 2350 300 / 300
Balance -640 / -640 1380 / 1380
Review of Systems
-
History Source: Patient
Constitutional: Reports Fatigue
EENT: Reports No Symptoms Reported
Respiratory: Reports No Symptoms
Cardiac: Reports No Symptoms
Abdomen/GI: Reports No Symptoms
Breast: Reports No Symptoms
Musculoskeletal: Reports Joint Pain (Left Lower Limb) and Muscle Pain (Left Lower Limb)
Neuro: Reports No Symptoms
Endocrine: Reports No Symptoms
Physical Exam
-
General: Well Developed, Well Nourished, Comfortable, Conversant and Obese
HEENT: Normocephalic and Atraumatic
Respiratory: Clear to Auscultation and Non Labored Respirations; Negative Wheezes, Rales, Rhonchi or Crackles
Cardiac: Regular Rhythm and S1/S2; Negative Murmur, Calf Tenderness or Tachycardic
GI: Soft, Nontender, Nondistended and Normal Bowel Sounds; Negative Organomegaly
Genito-urinary: No Costovertebral Tender, Clear Urine and Castillo
Musculoskeletal: No Clubbing, No Cyanosis and Other (R BKA with superficial scab/ulcer and no infection. L BKA with clean dressing)
Skin: Warm and Dry; Negative Rash or Ulcers
Neuro: Awake, Alert, Oriented, AO x 3 and No Sensory Deficits
Psych: Calm
--- NOTE | 2025-04-29 15:00 | CM ---
CM left 2 messages w/ the health data administrator today to confirm if patient can return w/ the support from another inmate and OP therapy.
Pt is progressing w/ therapy, improving in his transfers, now only requiring assistance of 1
CM will continue efforts in connecting w/ health data administrator
Updated PA
[facility]
Report: [phone]

Plan: Return to [facility]
[2025-04-29 16:31] LABS: Glucose - Point of Care 112 mg/dl (70-99)
[2025-04-29] MEDS: LOVENOX 40 MG SC (17:37)
[2025-04-29 21:26] LABS: Glucose - Point of Care 103 mg/dl (70-99)
[2025-04-29] MEDS: REMERON 30 MG PO (22:03)
[2025-04-29 23:20] VITALS: BP 128/75
[2025-04-30] MEDS: DILAUDID 0.5 MG IV ×4 (03:43→11:47)
[2025-04-30 05:45] VITALS: BMI 31.8
[2025-04-30] MEDS: TYLENOL 1000 MG PO ×5 (06:04→23:32)
[2025-04-30 07:40] VITALS: BP 120/69
[2025-04-30 07:52] LABS: Glucose - Point of Care 141 mg/dl (70-99)
[2025-04-30 08:09] LABS: Hematocrit 27.7 % (39.0-52.0); Hemoglobin 8.1 g/dL (13.0-18.0); Mean Corp Hgb Conc. 29.2 g/dL (33.0-37.0); Mean Corpuscular Volume 93.6 fL (80.0-94.0); Platelet Count 496 10^3/uL (130-400); Red Cell Dist. Width 14.9 % (11.5-14.5)
[2025-04-30] MEDS: NOVOLOG FLEXPEN-LOW RESISTANCE SC ×2 (08:10→16:44)
[2025-04-30] MEDS: NEURONTIN 300 MG PO ×3 (08:11→21:54)
[2025-04-30] MEDS: RANEXA EXTENDED RELEASE 1000 MG PO ×2 (08:11→19:59)
[2025-04-30] MEDS: LANTUS 0.25 UNITS SC ×2 (08:11→21:54)
[2025-04-30] MEDS: ASPIR LOW (ENTERIC COATED) 81 MG PO (08:11)
[2025-04-30] MEDS: CYMBALTA DELAYED RELEASE 30 MG PO (08:12)
[2025-04-30] MEDS: FEOSOL 325 MG PO ×2 (08:12→19:59)
[2025-04-30] MEDS: IMDUR (EXTENDED RELEASE) 60 MG PO (08:12)
[2025-04-30] MEDS: DEMADEX 10 MG PO (08:12)
[2025-04-30] MEDS: PROTONIX 40 MG PO (08:12)
[2025-04-30] MEDS: NOVOLOG FLEXPEN 10 UNITS SC ×3 (08:13→16:44)
[2025-04-30] MEDS: COREG 25 MG PO ×2 (08:13→20:00)
[2025-04-30 08:47] LABS: ALT (SGPT) < 10 U/L (0-50); AST (SGOT) 12 U/L (17-59); Albumin 3.0 g/dl (3.5-5.0); Alkaline Phosphatase 73 U/L (38-126); Blood Urea Nitrogen 23 mg/dl (9-20); Calcium 8.4 mg/dl (8.4-10.2); Carbon Dioxide 27 mmol/L (22-30); Chloride 107 mmol/L (98-107); Estimated Creatinine Clearance > 125 ml/min; Glucose 135 mg/dl (70-99); Potassium 4.6 mmol/L (3.5-5.1); Sodium 140 mmol/L (135-145); Total Protein 6.2 g/dl (6.3-8.2); eGFR > 60.00
[2025-04-30 11:50] LABS: Glucose - Point of Care 164 mg/dl (70-99)
[2025-04-30] MEDS: NOVOLOG FLEXPEN-LOW RESISTANCE 1 UNITS SC (11:50)
--- NOTE | 2025-04-30 12:58 | CM ---
Addendum entered by Nicolette Perez 04/30/25 14:10:
Resident spoke with Kassandra Murillo at [facility], stating patient cannot return to [facility] over weekend as patient needs to be evaluated by provider before returning, no one available over weekend.
Original Note:
CM reviewed chart, reviewed with Nurse, Resident, and Hospitalist.
CM spoke with nurse Akers at [facility] [phone]- confirmed patient can return with script for outpatient therapy, will assign an inmate to assist with patients needs, aware patient will be d/c today.
CM will continue to follow.
Plan; return to [facility] with inmate assist, script for outpatient therapy
[facility]
Report: [phone]
--- NOTE | 2025-04-30 13:00 | PTCARENOTE ---
This RN was able to reach out to the penitentiary and spoke with CALIN CLEMENTE. I provided the report, and she confirmed that they will arrange for the patient's care at the facility. They will assign an inmate to assist with the patients needs, and if the
patient requires specific therapies, they will coordinate and send him out for those services.
[2025-04-30 13:15] VITALS: BP 169/97
--- NOTE | 2025-04-30 14:42 | W.PN.HOSP.TC ---
Addendum entered and electronically signed by Min Collins MD 04/30/25 15:42:
Seen and examined the patient
I agree with the plan set forth by the resident
Cardiovascular system S1-S2 appreciated
Chest clear to auscultation
Abdomen soft and nontender
Right BKA stump-superficial wound
Left BKA trino look intact no bleeding no edema
[id number] conversation with person by case management. I am being told that they can only accept him on Friday. I had a detailed conversation with the patient about getting physical therapy to move forward with his life is the best thing to
do at this point he seems to be finding reasons to stay in the hospital which I told him that is not at his best interest. He understands that disuse atrophy can happen to muscles while he is staying in bed being incarcerated this is not at his
best interest. Once he is released to the person he can get to physical therapy and outpatient PT department 3 times a week. Patient is aware that this is the best chance to return to normalcy in terms of movement. This will also aid him to get
prosthesis and he needs muscle strength to help with the training.
Hemoglobin has been stable. His stent has been over a year ago therefore continue with aspirin alone. Patient's outpatient infectious diseases physician can decide whether he needs to go back on Plavix or not. He should also follow-up with medical claims manager as
outpatient
D/W Case management
D/W RN
Original Note:
Today's Communication/Plan
-
Patient is medically stable for discharge
Awaiting clearance for acceptance back to [facility] prior to discharge -spoke with staff member Mercedes phone number [phone] (backup phone [phone]) in regards to upcoming discharge plan for Friday. She believes that there will be a healthcare
provider present who will be able to evaluate the patient on arrival to the correctional facility on Friday.
Assessment / Plan
Assessment / Plan
HPI: 29-year-old male with PMHx significant for insulin-dependent type 1 diabetes mellitus, CIDP, Hypertension, GERD, CKD stage IIIA, history of osteomyelitis and TMA is admitted to the hospital for evaluation and management of acute blood loss
anemia from TMA wound dehiscence.
Assessment/Plan:
-Left foot TMA site with wound dehiscence:
-History of left foot TMA on 03/08:
-Acute bleed: from site of L TMA and Heel Debridement (03/25 and 04/08)
-Acute blood Loss Anemia secondary to the above:
Vascular ultrasound showed no significant arterial stenosis on the left however Doppler waveforms suggest disease within the distal SFA/popliteal artery and infrapopliteal disease may also be present as per arterial studies. Multiple lymph nodes
were also seen in the left thigh which may be reactive.
Wound cultures grew MRSA, VRE
Blood cultures did not show any growth
Underwent ultrasound of the left lower extremity did not show any evidence of DVT
Iron supplementation continue
Continue monitoring hemoglobin daily and transfuse as needed to maintain hemoglobin greater than 7
Status postdebridement 03/25.
Pathology results came back which showed focal acute osteomyelitis and detached fragment of fibrino-purulent exudate
Patient underwent his open TMA revision and wound debridement on 04/04 -there was significant drainage postoperatively - pathology positive for acute and chronic osteomyelitis
Wound culture from 04/04 positive for Enterobacter Cloacae
Podiatry recommends nonweightbearing to the left lower extremity and continued elevation of the extremity on 2-3 pillows
Patient's lab work on the morning of 04/07/2025 had a hemoglobin at 7.1 with a hematocrit of 20.7�repeat H&H ordered which was 6.7 - 1 PRBC ordered on 04/07/25
Podiatry has tentatively planned for revision surgery of the L foot after pathology returns from most recent debridement on 04/06/25
Patient had an episode of acute blood loss on 04/08/2025 where a large amount of blood was lost from his foot wound. 1 PRBC given on 04/08/25
Scheduled for OR with podiatry for debridement vs lisfranc disarticulation on 04/13/25 - procedure tolerated well
Patient's Hgb is 7.5 on 04/15/25 - will continue to follow - if <7 then will transfuse PRBCs
Patient received 1 unit of PRBCs on 04/16/2025
Continue Holding anticoagulants postoperatively - will resume near discharge date
Appreciate hematology recommendations -they are under the impression that the patient is suffering from some element of WILBER and recommended continuing with oral iron supplement.
We have initiated anemia workup with LDH at 171, haptoglobin pending, Positive Candie test, 1+ BOBBY IgG, stool heme test, and PT/PTT were within normal limits. Based on positive Candie test, consider drug-induced immune hemolytic anemia, delayed
hemolytic transfusion reaction, or cold agglutinin disease
Abdominal ultrasound found that the liver and spleen were within normal limits in size without hepatosplenomegaly. No ascites. Tiny gallstones without sonographic features of acute cholecystitis. No bile duct dilatation.
Patient tolerated his Left BKA and is recovering postoperatively. POD 5 on 04/25/24 for L BKA
As per ID recommendations - Stump looks clean, discontinued Daptomycin and Ceftazidime/Avibactam and plan for DC
Patient spiked a fever on 04/27/25 with 101.1 temp. Reconsulted ID, CXR ordered, COVID negative, UA with reflex to culture ordered, BCs x2 ordered - BCs negative and COVID negative
Patient cleared for DC from ID perspective on 04/29/25
-Right BKA: Stable/monitoring
gauze and wrapped dressing provided to avoid further irritation to the site. Patient may be accidentally irritating the area.
-Hypoactive delirium likely due to opiate overdose: Improving
Narcan x1 dose 04/24
Stopped Dilaudid DIRECTOR IMAGING and switch to Dilaudid IV PRN
Continue Dilaudid
-Hyperkalemia: Resolved
Patient was hyperkalemic with postassium of 5.5 on 04/14/25
Lokelma given, Insulin adjusted to home dose.
Repeat potassium on 04/15/25 is 4.9 - within normal limits.
Potassium was 5.7 on 04/18/2025�Lokelma given�Will repeat with BMP
Torsemide has been resumed
-Itchy rash:
Continue IV Benadryl
-Diarrhea:
Check stool sample for C. difficile if loose stool continues
- Urinary retention:
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
Patient self caths
Castillo catheter has been discontinued. Patient will be able to self cath as he usually does this in the outpatient setting
- History of ASCVD
- Status post stent palcement
- Chest pain:
EKG/troponin negative for any acute process
ASA held
Plavix 75mg held
Statin held
Continue Ranolazine
Continue Carvedilol
Type 1 diabetes with Hyperglycemia and neuropathy: Monitoring
A1C = 8.1% in January. Hba1c on 03/21/25 was 6.9 indicating improvement in overall glycemic control
Diabetes DRIVER MANAGER consulted, recommendations appreciated
Continue gabapentin, continue duloxetine
Lantus adjusted to 25 units, Aspart adjusted to 8 units at breakfast, lunch and dinner.
-AMBER on CKD IIIa: Unresolved
Continue to monitoring creatinine, has been hovering around 1.4/1.5
Urine studies show pre-renal cause, likely from hypovolemic state
Continued elevated creatinine level at 1.6 on 04/04/2025
Continue monitoring BMP.
Torsemide resumed
IV fluid support
-GERD
Continue Pantoprazole
-Chronic inflammatory demyelinating polyneuropathy:
Continue current meds, will need to arrange for PLEX in outpatient setting once discharged
FULL CODE STATUS
Stress Ulcer Prophylaxis: Pantoprazole
DVT Prophylaxis: SCDs
Imaging:
-Left foot x-ray conducted on 03/21/2025:
Status post amputation at the level of the first through fifth proximal metatarsal bones.
No radiographic evidence for osteomyelitis.
- Bilateral lower extremity arterial ultrasound exam conducted on 03/23/2025:
1. Ankle-brachial indices and toe brachial indices could not be measured due to prior amputations.
2. No focal significant arterial stenosis demonstrated on the left side on duplex imaging. Spectral Doppler waveform analysis is suggestive of disease within the distal SFA/popliteal artery. Infrapopliteal disease may also be present.
3. Multiple lymph nodes are seen within the left thigh, which may be reactive.
-Peripheral vascular ultrasound of the left lower extremity conducted on 03/31/2025:
No evidence of DVT of the left lower extremity.
Procedures:
03/03/2025-initial amputation of left transmetatarsal
03/25/2025-debridement of infected left metatarsal amputation
04/04/2025-revision debridement of left heel wound with calcaneal biopsy.
Anticipated Discharge: 24 - 48 hours
Subjective/Interval History
-
Date of Service: April 30, 2025
Met with patient at the bedside. Overall he is doing well and offers no complaints at the present time. Notes occasioanl pain at times at his operative site. He hopes to receive rehab prior to going to [facility] to that he may be able to attain more
functionality. Patient denies any shortness of breath, chest tightness, or chest pain. The patient denies any nausea, vomiting, or diarrhea.
Objective Data
-
Labs:
Laboratory Results
04/30/25
07:20
WBC 7.4
Hgb 8.1 L
Hct 27.7 L
Plt Count 496 H
Sodium 140
Potassium 4.6
Chloride 107
Carbon Dioxide 27
BUN 23 H
Creatinine 1.0
Glucose 135 H
Calcium 8.4
Total Bilirubin 0.1 L
AST 12 L
ALT < 10
Alkaline Phosphatase 73
Vital Signs:
Vital Signs
Temp Pulse Resp BP Pulse Ox
97.6 F 84 18 169/97 99
04/30/25 13:15 04/30/25 13:15 04/30/25 13:15 10/18/25 13:15 04/30/25 13:15
I&O
04/29/25 04/30/25 05/01/25
06:59 06:59 06:59
Intake Total 1680 / 1680
Output Total 300 / 300 1350 / 1350
Balance 1380 / 1380 -1350 / -1350
Review of Systems
-
History Source: Patient
Constitutional: Reports Fatigue
EENT: Reports No Symptoms Reported
Respiratory: Reports No Symptoms
Cardiac: Reports No Symptoms
Abdomen/GI: Reports No Symptoms
Breast: Reports No Symptoms
Musculoskeletal: Reports Joint Pain (Left Lower Limb) and Muscle Pain (Left Lower Limb)
Neuro: Reports No Symptoms
Endocrine: Reports No Symptoms
[2025-04-30] MEDS: DILAUDID 0.25 MG IV ×3 (15:33→23:35)
[2025-04-30 15:47] LABS: Glucose - Point of Care 54 mg/dl (70-99)
[2025-04-30] MEDS: LOVENOX 40 MG SC (16:43)
[2025-04-30 16:45] LABS: Glucose - Point of Care 95 mg/dl (70-99)
[2025-04-30 21:20] LABS: Glucose - Point of Care 107 mg/dl (70-99)
[2025-04-30] MEDS: REMERON 30 MG PO (21:55)
[2025-04-30] MEDS: SENOKOT 17.2 MG PO (21:55)
[2025-04-30 23:25] VITALS: BP 141/77
[2025-05-01 03:42] LABS: Glucose - Point of Care 112 mg/dl (70-99)
[2025-05-01] MEDS: DILAUDID 0.25 MG IV ×2 (04:22→08:46)
[2025-05-01 05:32] VITALS: BMI 31.5
[2025-05-01] MEDS: TYLENOL PO (06:27)
--- NOTE | 2025-05-01 07:30 | W.PN.HOSP.TC ---
Addendum entered and electronically signed by Min Collins MD 05/01/25 14:40:
Seen and examined the patient. Agree with the plan set forth by the resident.
Exam stable
Patient reports of having loose bowel movements
Abdomen soft and nontender bowel sounds are appreciated
Discontinue all bowel regimen
Check C. difficile
Add probiotics
Discontinue Dilaudid
Discussed with nursing at bedside
Original Note:
Today's Communication/Plan
-
Patient is medically stable for discharge - hemoglobin remains stable with little/no blood loss from wound
Awaiting clearance for acceptance back to [facility] prior to discharge -spoke with staff member Mercedes phone number [phone] (backup phone [phone]) in regards to upcoming discharge plan for Friday. She believes that there will be a healthcare
provider present who will be able to evaluate the patient on arrival to the correctional facility on Friday.
Assessment / Plan
Assessment / Plan
HPI: 29-year-old male with PMHx significant for insulin-dependent type 1 diabetes mellitus, CIDP, Hypertension, GERD, CKD stage IIIA, history of osteomyelitis and TMA is admitted to the hospital for evaluation and management of acute blood loss
anemia from TMA wound dehiscence.
Assessment/Plan:
-Left foot TMA site with wound dehiscence: Resolved- left BKA
-History of left foot TMA on 03/08: Resolved�left BKA
-Acute bleed: from site of L TMA and Heel Debridement (03/25 and 04/08): Resolved�left BKA
-Acute blood Loss Anemia secondary to the above: Resolved�left BKA
Vascular ultrasound showed no significant arterial stenosis on the left however Doppler waveforms suggest disease within the distal SFA/popliteal artery and infrapopliteal disease may also be present as per arterial studies. Multiple lymph nodes
were also seen in the left thigh which may be reactive.
Wound cultures grew MRSA, VRE
Blood cultures did not show any growth
Underwent ultrasound of the left lower extremity did not show any evidence of DVT
Iron supplementation continue
Continue monitoring hemoglobin daily and transfuse as needed to maintain hemoglobin greater than 7
Status postdebridement 03/25.
Pathology results came back which showed focal acute osteomyelitis and detached fragment of fibrino-purulent exudate
Patient underwent his open TMA revision and wound debridement on 04/04 -there was significant drainage postoperatively - pathology positive for acute and chronic osteomyelitis
Wound culture from 04/04 positive for Enterobacter Cloacae
Podiatry recommends nonweightbearing to the left lower extremity and continued elevation of the extremity on 2-3 pillows
Patient's lab work on the morning of 04/07/2025 had a hemoglobin at 7.1 with a hematocrit of 20.7�repeat H&H ordered which was 6.7 - 1 PRBC ordered on 04/07/25
Podiatry has tentatively planned for revision surgery of the L foot after pathology returns from most recent debridement on 04/06/25
Patient had an episode of acute blood loss on 04/08/2025 where a large amount of blood was lost from his foot wound. 1 PRBC given on 04/08/25
Scheduled for OR with podiatry for debridement vs lisfranc disarticulation on 04/13/25 - procedure tolerated well
Patient's Hgb is 7.5 on 04/15/25 - will continue to follow - if <7 then will transfuse PRBCs
Patient received 1 unit of PRBCs on 04/16/2025
Continue Holding anticoagulants postoperatively - will resume near discharge date
Appreciate hematology recommendations -they are under the impression that the patient is suffering from some element of WILBER and recommended continuing with oral iron supplement.
We have initiated anemia workup with LDH at 171, haptoglobin pending, Positive Candie test, 1+ BOBBY IgG, stool heme test, and PT/PTT were within normal limits. Based on positive Candie test, consider drug-induced immune hemolytic anemia, delayed
hemolytic transfusion reaction, or cold agglutinin disease
Abdominal ultrasound found that the liver and spleen were within normal limits in size without hepatosplenomegaly. No ascites. Tiny gallstones without sonographic features of acute cholecystitis. No bile duct dilatation.
Patient tolerated his Left BKA and is recovering postoperatively. POD 5 on 04/25/24 for L BKA
As per ID recommendations - Stump looks clean, discontinued Daptomycin and Ceftazidime/Avibactam and plan for DC
Patient spiked a fever on 04/27/25 with 101.1 temp. Reconsulted ID, CXR ordered, COVID negative, UA with reflex to culture ordered, BCs x2 ordered - BCs negative and COVID negative
Patient cleared for DC from ID perspective on 04/29/25
-Right BKA: Stable/monitoring
gauze and wrapped dressing provided to avoid further irritation to the site. Patient may be accidentally irritating the area.
-Hypoactive delirium likely due to opiate overdose: Stable/monitoring
Narcan x1 dose 04/24
Stopped Dilaudid PATIENT CARE COORDINATOR and switch to Dilaudid IV PRN
Continue Dilaudid
-Hyperkalemia: Resolved
Patient was hyperkalemic with postassium of 5.5 on 04/14/25
Lokelma given, Insulin adjusted to home dose.
Repeat potassium on 04/15/25 is 4.9 - within normal limits.
Potassium was 5.7 on 04/18/2025�Lokelma given�Will repeat with BMP
Torsemide has been resumed
-Itchy rash: Stable/monitoring
Continue IV Benadryl
-Diarrhea: Stable/monitoring
Check stool sample for C. difficile if loose stool continues
- Urinary retention: Resolved
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
Patient self caths
Castillo catheter has been discontinued. Patient will be able to self cath as he usually does this in the outpatient setting
- History of ASCVD: Stable/monitoring
- Status post stent placement: Stable/monitoring
- Chest pain: Stable/monitoring
EKG/troponin negative for any acute process
ASA held
Plavix 75mg held
Statin held
Continue Ranolazine
Continue Carvedilol
Type 1 diabetes with Hyperglycemia and neuropathy: Stable/monitoring
A1C = 8.1% in January. Hba1c on 03/21/25 was 6.9 indicating improvement in overall glycemic control
Diabetes TRAFFIC CONTROL OPERATOR consulted, recommendations appreciated
Continue gabapentin, continue duloxetine
Lantus adjusted to 25 units, Aspart adjusted to 8 units at breakfast, lunch and dinner.
-AMBER on CKD IIIa: Stable/monitoring
Continue to monitoring creatinine, has been hovering around 1.4/1.5
Urine studies show pre-renal cause, likely from hypovolemic state
Continued elevated creatinine level at 1.6 on 04/04/2025
Continue monitoring BMP.
Torsemide resumed
IV fluid support
-GERD: Stable/monitoring
Continue Pantoprazole
-Chronic inflammatory demyelinating polyneuropathy: Stable/monitoring
Continue current meds, will need to arrange for PLEX in outpatient setting once discharged
FULL CODE STATUS
Stress Ulcer Prophylaxis: Pantoprazole
DVT Prophylaxis: SCDs
Imaging:
-Left foot x-ray conducted on 03/21/2025:
Status post amputation at the level of the first through fifth proximal metatarsal bones.
No radiographic evidence for osteomyelitis.
- Bilateral lower extremity arterial ultrasound exam conducted on 03/23/2025:
1. Ankle-brachial indices and toe brachial indices could not be measured due to prior amputations.
2. No focal significant arterial stenosis demonstrated on the left side on duplex imaging. Spectral Doppler waveform analysis is suggestive of disease within the distal SFA/popliteal artery. Infrapopliteal disease may also be present.
3. Multiple lymph nodes are seen within the left thigh, which may be reactive.
-Peripheral vascular ultrasound of the left lower extremity conducted on 03/31/2025:
No evidence of DVT of the left lower extremity.
Procedures:
03/03/2025-initial amputation of left transmetatarsal
03/25/2025-debridement of infected left metatarsal amputation
04/04/2025-revision debridement of left heel wound with calcaneal biopsy.
Anticipated Discharge: 24 - 48 hours
Subjective/Interval History
-
Date of Service: May 01, 2025
Met with patient at the bedside. He states that his status has not changed since yesterday and that he feels 'neither here nor there.' He denies any shortness of breath, chest tightness, or chest pain. The patient denies any nausea, vomiting, or
diarrhea.
Objective Data
-
Labs:
Laboratory Results
05/01/25
06:42
WBC 8.0
Hgb 8.1 L
Hct 26.0 L
Plt Count 573 H
Sodium 140
Potassium 4.5
Chloride 107
Carbon Dioxide 27
BUN 22 H
Creatinine 1.0
Glucose 104 H
Calcium 8.5
Total Bilirubin 0.3
AST 14 L
ALT 11
Alkaline Phosphatase 83
Vital Signs:
Vital Signs
Temp Pulse Resp BP Pulse Ox
97.9 F 86 16 149/78 96
05/01/25 08:00 05/01/25 08:42 05/01/25 08:00 05/01/25 08:42 05/01/25 08:00
I&O
04/30/25 05/01/25 05/02/25
06:59 06:59 06:59
Intake Total 480 / 480
Output Total 1350 / 1350
Balance -870 / -870
Review of Systems
-
History Source: Patient
Constitutional: Reports Fatigue
EENT: Reports No Symptoms Reported
Respiratory: Reports No Symptoms
Cardiac: Reports No Symptoms
Abdomen/GI: Reports No Symptoms
Breast: Reports No Symptoms
Musculoskeletal: Reports Joint Pain (Left Lower Limb) and Muscle Pain (Left Lower Limb)
Neuro: Reports No Symptoms
Endocrine: Reports No Symptoms
Physical Exam
-
General: Well Developed, Well Nourished, Comfortable, Conversant and Obese
HEENT: Normocephalic and Atraumatic
Respiratory: Clear to Auscultation and Non Labored Respirations; Negative Wheezes, Rales, Rhonchi or Crackles
Cardiac: Regular Rhythm and S1/S2; Negative Murmur, Calf Tenderness or Tachycardic
GI: Soft, Nontender, Nondistended and Normal Bowel Sounds; Negative Organomegaly
Genito-urinary: No Costovertebral Tender, Clear Urine and Castillo
Musculoskeletal: No Clubbing, No Cyanosis and Other (R BKA with superficial scab/ulcer and no infection. L BKA with clean dressing)
Skin: Warm and Dry; Negative Rash or Ulcers
Neuro: Awake, Alert, Oriented, AO x 3 and No Sensory Deficits
Psych: Calm
[2025-05-01 07:50] LABS: Hematocrit 26.0 % (39.0-52.0); Hemoglobin 8.1 g/dL (13.0-18.0); Mean Corp Hgb Conc. 31.2 g/dL (33.0-37.0); Mean Corpuscular Volume 90.6 fL (80.0-94.0); Platelet Count 573 10^3/uL (130-400); Red Cell Dist. Width 14.7 % (11.5-14.5)
[2025-05-01 08:00] VITALS: BP 149/78
[2025-05-01 08:26] LABS: ALT (SGPT) 11 U/L (0-50); AST (SGOT) 14 U/L (17-59); Albumin 3.0 g/dl (3.5-5.0); Alkaline Phosphatase 83 U/L (38-126); Blood Urea Nitrogen 22 mg/dl (9-20); Calcium 8.5 mg/dl (8.4-10.2); Carbon Dioxide 27 mmol/L (22-30); Chloride 107 mmol/L (98-107); Estimated Creatinine Clearance > 125 ml/min; Glucose 104 mg/dl (70-99); Potassium 4.5 mmol/L (3.5-5.1); Sodium 140 mmol/L (135-145); Total Protein 6.4 g/dl (6.3-8.2); eGFR > 60.00
[2025-05-01 08:39] LABS: Glucose - Point of Care 128 mg/dl (70-99)
[2025-05-01] MEDS: IMDUR (EXTENDED RELEASE) 60 MG PO (08:40)
[2025-05-01] MEDS: NOVOLOG FLEXPEN-LOW RESISTANCE SC ×3 (08:41→17:13)
[2025-05-01] MEDS: COREG 25 MG PO ×2 (08:41→21:40)
[2025-05-01] MEDS: CYMBALTA DELAYED RELEASE 30 MG PO (08:42)
[2025-05-01] MEDS: DEMADEX 10 MG PO (08:42)
[2025-05-01] MEDS: NEURONTIN 300 MG PO ×3 (08:42→21:37)
[2025-05-01] MEDS: PROTONIX 40 MG PO (08:42)
[2025-05-01] MEDS: RANEXA EXTENDED RELEASE 1000 MG PO ×2 (08:42→21:37)
[2025-05-01] MEDS: ASPIR LOW (ENTERIC COATED) 81 MG PO (08:42)
[2025-05-01] MEDS: FEOSOL 325 MG PO ×2 (08:43→21:37)
[2025-05-01] MEDS: LANTUS 0.25 UNITS SC (08:45)
[2025-05-01] MEDS: NOVOLOG FLEXPEN 10 UNITS SC ×3 (10:08→17:30)
[2025-05-01] MEDS: TYLENOL 1000 MG PO ×2 (12:07→17:23)
[2025-05-01] MEDS: MORPHINE SULFATE 15 MG PO ×2 (12:07→18:14)
[2025-05-01 12:57] LABS: Glucose - Point of Care 96 mg/dl (70-99)
[2025-05-01] MEDS: FLORASTOR 250 MG PO ×2 (13:07→21:37)
[2025-05-01 15:13] LABS: Glucose - Point of Care 84 mg/dl (70-99)
[2025-05-01 16:00] VITALS: BP 128/72
[2025-05-01 17:10] LABS: Glucose - Point of Care 97 mg/dl (70-99)
[2025-05-01 17:20] VITALS: BP 128/72
[2025-05-01] MEDS: LOVENOX 40 MG SC (17:24)
[2025-05-01] MEDS: LIPITOR 80 MG PO (17:26)
[2025-05-01 21:22] LABS: Glucose - Point of Care 55 mg/dl (70-99)
[2025-05-01] MEDS: LANTUS SC (21:38)
[2025-05-01] MEDS: REMERON 30 MG PO (21:38)
[2025-05-01 21:49] LABS: Glucose - Point of Care 73 mg/dl (70-99)
[2025-05-01 23:38] VITALS: BP 153/74
[2025-05-01 23:50] LABS: Glucose - Point of Care 128 mg/dl (70-99)
[2025-05-02] MEDS: TYLENOL PO ×2 (01:34→08:06)
[2025-05-02] MEDS: MORPHINE SULFATE 15 MG PO ×4 (01:35→23:18)
[2025-05-02 01:39] LABS: Glucose - Point of Care 113 mg/dl (70-99)
[2025-05-02 03:05] VITALS: BMI 31.4
[2025-05-02 03:05] LABS: Glucose - Point of Care 153 mg/dl (70-99)
[2025-05-02 07:30] VITALS: BP 114/91
--- NOTE | 2025-05-02 07:39 | PN.DE.MGMTRT ---
Insulin Management
- -
05/02/2025: Diabetes Management Follow up
Patient admitted from [facility] 03/21 with c/o bleeding L heel wound. PMH type 1 diabetes, R BKA, L toe amputation, recent debridement L heel, [place], CHF, HTN, CKD, [place], recent admission 01/21 and 03/05 s/p
transmetatarsal L amputation and debridement. Prior to admission was receiving Lantus 30 units BID with Humalog insulin ss AC. A1C on admission 6.9%, (improved from 8.1%). Cr 1.1, eGFR > 60 today.
Prior to incarceration was living in a group home per patient he will return there.
Patient awake, alert, oriented, sitting up in bed, able to discuss diabetes care plan. States he doesn't know why his glucose is variable.
POD# 11 s/p Left BKA, doing well, Hgb stable 8.7, Cr 1.2, eGFR >60 today. Now with +C-Diff, Awaiting return to [facility]
05/01 pre-lunch glucose was 84, received 10 units of NovoLog, pre- dinner glucose was 97, pt received NovoLog 10 units, noted for Hypoglycemia @ HS of 54, improved after txt. Will reduce AC NovoLog from 10 units to 6 units. Continue Lantus 25 units
BID and low corrective insulin with meals
Discussed with nurse. Will cont to follow and adjust insulin dose if necessary.
Pt awaiting
Diabetes History
- -
Type of Diabetes: 1
Pre-Admission Diabetes Regimen
05/01/25
06:42
Creatinine 1.0
Lab Results
Hemoglobin A1c 6.9 % (4.0-5.6) H 03/22/25 06:24
Insulin Pump Settings
IP Diabetes Regimen
05/01/25 05/01/25 05/01/25
06:42 08:37 12:55
Glucose 104 H
POC Glucose 128 H 96
05/01/25 05/01/25 05/01/25
15:11 17:09 21:20
Glucose
POC Glucose 84 97 55 L*
05/01/25 05/01/25 05/02/25
21:47 23:49 01:38
Glucose
POC Glucose 73 128 H 113 H
05/02/25
03:03
Glucose
POC Glucose 153 H
Patient Education
[2025-05-02 07:51] LABS: Glucose - Point of Care 167 mg/dl (70-99)
[2025-05-02] MEDS: NOVOLOG FLEXPEN SC (08:19)
[2025-05-02] MEDS: FLORASTOR 250 MG PO ×2 (09:28→20:28)
[2025-05-02] MEDS: CYMBALTA DELAYED RELEASE 30 MG PO (09:28)
[2025-05-02] MEDS: RANEXA EXTENDED RELEASE 1000 MG PO ×2 (09:29→20:28)
[2025-05-02] MEDS: NEURONTIN 300 MG PO ×3 (09:29→21:48)
[2025-05-02] MEDS: IMDUR (EXTENDED RELEASE) 60 MG PO (09:31)
[2025-05-02] MEDS: DEMADEX 10 MG PO (09:31)
[2025-05-02] MEDS: ASPIR LOW (ENTERIC COATED) 81 MG PO (09:32)
[2025-05-02] MEDS: PROTONIX 40 MG PO (09:32)
[2025-05-02] MEDS: COREG 25 MG PO ×2 (09:32→20:29)
[2025-05-02] MEDS: FEOSOL 325 MG PO ×2 (09:32→20:28)
--- NOTE | 2025-05-02 09:37 | W.PN.HOSP.TC ---
Addendum entered and electronically signed by Min Collins MD 05/02/25 15:46:
Seen and examined the patient earlier today. Late documentation.
Agree with assessment plan put forth by the resident. See changes in my documentation
Patient was reporting diarrhea and documented bowel movements being loose
Examination left amputation stump with trino stable
Right amputation stump ulcer stable
Abdomen soft and nontender bowel sounds present
Diarrhea-C. difficile positive
Patient is reporting that he had p.o. and IV vancomycin both because of severe reaction unable to confirm. Pharmacy also had concerns because of this reaction
Dificid ordered
Correctional facility needs to order Dificid prior to patient returning, per discussion with case management
Discharge patient to correctional facility when Dificid is available.
Original Note:
Today's Communication/Plan
-
C. Diff positive. Start Vancomycin. Restart Plavix prior to discharge. Anticipate discharge tomorrow. Continue PT/OT.
Assessment / Plan
Assessment / Plan
Sang Post is a 29M w/ PMHx significant for T1-IDDM, CIDP, HTN, GERD, CKD stage IIIA, history of osteomyelitis with R BKA who presented with left foot osteomyelitis and wound dehisence of left transmetatarsal amputaton, treated by means of L
BKA. Additionally, he has received 11U of pRBCs over the course of this admission. Patient returned C. Diff positive this morning and treatment was initiated.
Assessment/Plan:
-Left foot TMA site with wound dehiscence: Resolved- left BKA
-History of left foot TMA on 03/08: Resolved�left BKA
-Acute blood Loss Anemia secondary to the above: Resolved�left BKA
Vascular ultrasound showed no significant arterial stenosis on the left however Doppler waveforms suggest disease within the distal SFA/popliteal artery and infrapopliteal disease may also be present as per arterial studies. Multiple lymph nodes
were also seen in the left thigh which may be reactive.
Wound cultures grew MRSA, VRE
Blood cultures did not show any growth
Underwent ultrasound of the left lower extremity did not show any evidence of DVT
Iron supplementation continue
Continue monitoring hemoglobin daily and transfuse as needed to maintain hemoglobin greater than 7
Status postdebridement 03/25.
Pathology results came back which showed focal acute osteomyelitis and detached fragment of fibrino-purulent exudate
Patient underwent his open TMA revision and wound debridement on 04/04 -there was significant drainage postoperatively - pathology positive for acute and chronic osteomyelitis
Wound culture from 04/04 positive for Enterobacter Cloacae
Podiatry recommends nonweightbearing to the left lower extremity and continued elevation of the extremity on 2-3 pillows
Patient's lab work on the morning of 04/07/2025 had a hemoglobin at 7.1 with a hematocrit of 20.7�repeat H&H ordered which was 6.7 - 1 PRBC ordered on 04/07/25
Podiatry has tentatively planned for revision surgery of the L foot after pathology returns from most recent debridement on 04/06/25
Patient had an episode of acute blood loss on 04/08/2025 where a large amount of blood was lost from his foot wound. 1 PRBC given on 04/08/25
Scheduled for OR with podiatry for debridement vs lisfranc disarticulation on 04/13/25 - procedure tolerated well
Patient's Hgb is 7.5 on 04/15/25 - will continue to follow - if <7 then will transfuse PRBCs
Patient received 1 unit of PRBCs on 04/16/2025
Continue Holding anticoagulants postoperatively - will resume near discharge date
Appreciate hematology recommendations -they are under the impression that the patient is suffering from some element of WILBER and recommended continuing with oral iron supplement.
We have initiated anemia workup with LDH at 171, haptoglobin pending, Positive Candie test, 1+ BOBBY IgG, stool heme test, and PT/PTT were within normal limits. Based on positive Candie test, consider drug-induced immune hemolytic anemia, delayed
hemolytic transfusion reaction, or cold agglutinin disease
Abdominal ultrasound found that the liver and spleen were within normal limits in size without hepatosplenomegaly. No ascites. Tiny gallstones without sonographic features of acute cholecystitis. No bile duct dilatation.
Patient tolerated his Left BKA and is recovering postoperatively. POD 5 on 04/25/24 for L BKA
As per ID recommendations - Stump looks clean, discontinued Daptomycin and Ceftazidime/Avibactam and plan for DC
Patient spiked a fever on 04/27/25 with 101.1 temp. Reconsulted ID, CXR ordered, COVID negative, UA with reflex to culture ordered, BCs x2 ordered - BCs negative and COVID negative
Patient cleared for DC from ID perspective on 04/29/25
-Right BKA: Stable/monitoring
Appears clean and dry without signs of infection.
-Hypoactive delirium likely due to opiate overdose: Resolved
-Hyperkalemia: Resolved
Patient was hyperkalemic with postassium of 5.5 on 04/14/25
Lokelma given, Insulin adjusted to home dose.
Repeat potassium on 04/15/25 is 4.9 - within normal limits.
Potassium was 5.7 on 04/18/2025�Lokelma given�Will repeat with BMP
Torsemide has been resumed
Potassium stable
Clostridium Difficile Infection:
C. Diff positive 05/02
Start Vancomycin PO 125mg qid for 10 days
- History of ASCVD: Stable/monitoring
- Status post stent placement: Stable/monitoring
- Chest pain: Stable/monitoring
EKG/troponin negative for any acute process
ASA held
Plavix 75mg held
Statin held
Continue Ranolazine
Continue Carvedilol
Type 1 diabetes with Hyperglycemia and neuropathy: Stable/monitoring
A1C = 8.1% in January. Hba1c on 03/21/25 was 6.9 indicating improvement in overall glycemic control
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
Continue gabapentin, continue duloxetine
Lantus adjusted to 25 units, Aspart adjusted to 8 units at breakfast, lunch and dinner.
-AMBER on CKD IIIa: Stable/monitoring
Continue to monitoring creatinine, has been hovering around 1.4/1.5
Urine studies show pre-renal cause, likely from hypovolemic state
Continued elevated creatinine level at 1.6 on 04/04/2025
Continue monitoring BMP.
Torsemide resumed
IV fluid support
-GERD: Stable/monitoring
Continue Pantoprazole
-Chronic inflammatory demyelinating polyneuropathy: Stable/monitoring
Continue current meds, will need to arrange for PLEX in outpatient setting once discharged
FULL CODE
GI PPx: Pantoprazole
DVT Prophylaxis: SCDs

Imaging:
-Left foot x-ray conducted on 03/21/2025:
Status post amputation at the level of the first through fifth proximal metatarsal bones.
No radiographic evidence for osteomyelitis.
- Bilateral lower extremity arterial ultrasound exam conducted on 03/23/2025:
1. Ankle-brachial indices and toe brachial indices could not be measured due to prior amputations.
2. No focal significant arterial stenosis demonstrated on the left side on duplex imaging. Spectral Doppler waveform analysis is suggestive of disease within the distal SFA/popliteal artery. Infrapopliteal disease may also be present.
3. Multiple lymph nodes are seen within the left thigh, which may be reactive.
-Peripheral vascular ultrasound of the left lower extremity conducted on 03/31/2025:
No evidence of DVT of the left lower extremity.

Procedures:
03/03/2025-initial amputation of left transmetatarsal
03/25/2025-debridement of infected left metatarsal amputation
04/04/2025-revision debridement of left heel wound with calcaneal biopsy.
Anticipated Discharge: Within 24 hours
Subjective/Interval History
-
Patient seen examined while resting in bed. Endorses continued diarrhea. Has not personally visualized it. Nursing endorses 2X BM this a.m., Initially soft formed stool, second episode was more watery. Patient endorses that this is associated
with left-sided abdominal pain. Otherwise denies fevers, chest pain, shortness of breath, nausea, vomiting.
Objective Data
-
Vital Signs:
Vital Signs
Temp Pulse Resp BP Pulse Ox
98.1 F 85 18 114/91 96
05/02/25 07:30 05/02/25 07:30 05/02/25 07:30 05/02/25 07:30 05/02/25 07:30
I&O
05/01/25 05/02/25 05/03/25
06:59 06:59 06:59
Intake Total 480 / 480 1200 / 1200
Output Total 1350 / 1350 2700 / 2700
Balance -870 / -870 -1500 / -1500
Review of Systems
-
History Source: Patient
All other systems: Reviewed and negative
Physical Exam
-
General: No Apparent Distress, Comfortable and Conversant; Negative Fever
HEENT: Normocephalic, Atraumatic, Moist Mucous Membranes and Anicteric
Respiratory: Clear to Auscultation and Non Labored Respirations; Negative Wheezes, Rales or Rhonchi
Cardiac: Regular Rhythm and S1/S2
GI: Soft, Nondistended, Normal Bowel Sounds, Tender (Left upper quadrant and left lower quadrant. Moderate amount of liquidy brown stool found in bed upon bedding change. ) and Other (No guarding, no rebound.)
Musculoskeletal: Other (Left BKA: Gauze and Hemal wrap are clean dry and intact. Skin is without erythema or ecchymosis or signs of infection. Sutures are intact. Right BKA: Appears clean without signs of erythema or infection.)
Skin: Warm and Dry
Neuro: Awake and Alert
Psych: Calm
Data Reviewed
-
Labs: Labs Reviewed by me
[2025-05-02] MEDS: LANTUS 0.25 UNITS SC ×2 (10:34→21:48)
[2025-05-02] MEDS: NOVOLOG FLEXPEN-LOW RESISTANCE 1 UNITS SC ×2 (10:35→13:27)
[2025-05-02] MEDS: NOVOLOG FLEXPEN 6 UNITS SC ×3 (10:35→17:55)
--- NOTE | 2025-05-02 11:21 | W.PN.ID1 ---
Date of Service
Date of Service: May 02, 2025
Today's Communication
loose stool on miralax, unlikely C difficile
Assessment / Plan
# Loose stool
- was on scheduled miralax
- has not produced a sample to check for C difficile which indicates patient is unlikely to have C difficile; no need for testing from ID perspective
- stable for dc from ID perspective
# Osteomyelitis Left foot TMA site wound dehiscence with necrosis
- Failed multiple revisions
- 04/21/25 s/p left BKA
- s/p daptomycin and ceftaz/avibactam, dc'd on 04/25.
- Stump overall clean with mild blood oozing. Hospitalist consulted Wound Care.
# Right BKA stump superficial scab over bony prominence.
- Possible eventual revision of stump
# Leukocytosis post-op
- Resolved
# AMBER-postop, resolved
# Allergies: PCN, cephalosporin, meropenem, Vancomycin; tolerated Avyzaz
# Incarcerated
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
Diabetes mellitus
CAD status post PCI
CHF
hx CKD3
Hypertension
Guillain-Potts� syndrome/CIDP, plasma exchange q 2 months
PAD status post right BKA
Left hallux and second toe osteomyelitis status post amputation and debridement of left heel ulcer January 21, 2025
Left foot TMA, I+D left heel wound and bone biopsy of heel (neg osteo) Mar 08, 2025 (path surgical cure)
Chief Complaint
-: Other (Foot wound)
Subjective / Review of Systems
afebrile
bp stable
loose stool on miralax - he reports chronically
Vital Signs / Physical Exam
Vital Signs
Vital Signs
Temp Pulse Resp BP Pulse Ox
98.1 F 85 18 114/91 96
05/02/25 07:30 05/02/25 07:30 05/02/25 07:30 05/02/25 07:30 05/02/25 07:30
Physical Exam
Constitutional: No Acute Distress
Cardiovascular: Regular Rate and S1/S2; Negative Murmur or Rub
Pulmonary: Clear and Symmetric; Negative Wheezes or Rales
Gastrointestinal: Soft, Non Tender, Non Distended and Normal Bowel Sounds
Skin: Warm and Dry; Negative Rash or Jaundice
Objective Data
Lab Data
ESR Cancelled 04/17/25 10:48
PT 13.7 Sec (11.4-14.6) 04/17/25 06:33
INR 1.02 04/17/25 06:33
APTT 33.8 Sec (23.4-35.0) 04/17/25 06:33
Estimated Creat Clear > 125 ml/min 05/01/25 06:42
Lactic Acid 0.8 mmol/L (0.7-2.0) 03/25/25 01:16
Total Bilirubin 0.3 mg/dl (0.2-1.3) 05/01/25 06:42
AST 14 U/L (17-59) L 05/01/25 06:42
ALT 11 U/L (0-50) 05/01/25 06:42
Alkaline Phosphatase 83 U/L (38-126) 05/01/25 06:42
Most recent labs reviewed.
Micro Results:
04/27/25 09:32 Blood Culture - Final
Blood/Venous No Growth - Final Report
04/27/25 08:33 Blood Culture - Final
Blood/Venous No Growth - Final Report
04/27/25 10:24 Urine Culture - Final
Urine NO GROWTH
03/25/25 16:52 Fungal Culture - Final
Foot - Left Anna albicans
04/13/25 16:07 Wound Culture - Final
Foot - Left Enterobacter cloacae
Gram Stain - Final
04/13/25 16:07 Anaerobic Culture - Final
Foot - Left NO ANAEROBES ISOLATED
04/04/25 16:30 Wound Culture - Final
Foot - Left Enterobacter cloacae
Gram Stain - Final
04/04/25 16:30 Anaerobic Culture - Final
Foot - Left NO ANAEROBES ISOLATED
03/31/25 10:51 Blood Culture - Final
Blood/Venous No Growth - Final Report
03/31/25 10:22 Blood Culture - Final
Blood/Venous No Growth - Final Report
03/25/25 09:33 Blood Culture - Final
Blood/Venous No Growth - Final Report
03/25/25 16:56 Wound Culture - Final
Foot - Left Staph aureus MRSA
Enterococcus faecalis - VRE
Gram Stain - Final
03/25/25 16:56 Anaerobic Culture - Final
Foot - Left NO ANAEROBES ISOLATED
03/25/25 16:52 Wound Culture - Final
Foot - Left Staph aureus MRSA
Enterococcus faecalis - VRE
Gram Stain - Final
03/25/25 16:52 Anaerobic Culture - Final
Foot - Left NO ANAEROBES ISOLATED
03/25/25 01:16 Blood Culture - Final
Blood/Venous No Growth - Final Report
03/27/25 10:35 Urine Culture - Final
Urine Anna albicans
03/24/25 12:51 Salmonella/Shigella Culture - Final
Feces/Stool No Salmonella, Shigella, Aeromonas or Plesiomonas species
isolated.
Campylobacter Culture - Final
No Campylobacter species isolated.
Shiga Toxin Test - Final
No E. coli Shiga Toxin 1 or 2 detected.
03/21/25 21:00 Blood Culture - Final
Blood/Venous No Growth - Final Report
03/21/25 21:00 Blood Culture - Final
Blood/Venous No Growth - Final Report
03/21/25 21:16 Wound Culture - Final
Foot - Left Enterococcus faecalis - VRE
Anna albicans
Gram Stain - Final
03/24/25 12:53 C. difficile GDH Antigen & Toxins - Final
Feces/Stool C. difficile antigen positive, toxin negative.
Clostridium difficile present, but toxin not detected.
Patient may be a carrier, colonized with nontoxinogenic
strain or the level of toxin in sample is below detection
limits. This information should be used in conjunction with
the patient's clinical history.
03/22/25 13:07 MRSA Screen - Final
Nose No Methicillin Resistant Staphylococcus aureus isolated.
--- NOTE | 2025-05-02 11:42 | CM ---
Addendum entered by Daily Galeana 05/02/25 14:57:
Called Lidia to follow up regarding patient's return today w/ positive c diff. Lidia confirmed that patient can return, he'll be able to be isolated upon return.
Updated hospitalist, wants to be sure [facility] Dificid as patient stated he is allergic to vancomycin
Addendum entered by Daily Galeana 05/02/25 13:24:
Patient positive for c diff. Updated Lidia, will review w/ her medical provider and call CM back on if patient can return today
Original Note:
Chart reviewed. Patient stable to return to [facility]
CM followed up w/ Lidia, [facility] solaris administrator. Lidia clarified that there needs to be a provider at the facility to be able to evaluate patient upon his return. Confirmed that there is a provider today and that patient can return today. CM stated
that [facility] team will need to schedule patient w/ OP therapy. Confirmed that when previously spoken to Magy the senior master scheduler, 05/05 is available for patient to start therapy, then 2 times per week at the beginning of May. Lidia asking to update
with timing of discharge
TT sent to hospitalist, however, TT is unavailable to use
[facility]
Report: [phone]

Plan: Return to [facility]
[2025-05-02 11:44] LABS: Hematocrit 29.6 % (39.0-52.0); Hemoglobin 8.7 g/dL (13.0-18.0); Mean Corp Hgb Conc. 29.4 g/dL (33.0-37.0); Mean Corpuscular Volume 94.0 fL (80.0-94.0); Platelet Count 592 10^3/uL (130-400); Red Cell Dist. Width 15.1 % (11.5-14.5)
[2025-05-02 12:10] LABS: Blood Urea Nitrogen 26 mg/dl (9-20); Calcium 8.5 mg/dl (8.4-10.2); Carbon Dioxide 26 mmol/L (22-30); Chloride 107 mmol/L (98-107); Estimated Creatinine Clearance 114 ml/min; Glucose 187 mg/dl (70-99); Potassium 5.0 mmol/L (3.5-5.1); eGFR > 60.00
[2025-05-02 12:18] LABS: Sodium 136 mmol/L (135-145)
[2025-05-02 12:35] LABS: Glucose - Point of Care 164 mg/dl (70-99)
[2025-05-02] MEDS: TYLENOL 1000 MG PO ×3 (13:26→23:18)
[2025-05-02 15:00] VITALS: BP 105/59
[2025-05-02] MEDS: DIFICID 200 MG PO ×2 (15:21→20:29)
[2025-05-02] MEDS: LIPITOR 80 MG PO (17:47)
[2025-05-02] MEDS: LOVENOX 40 MG SC (17:48)
[2025-05-02 17:54] LABS: Glucose - Point of Care 109 mg/dl (70-99)
[2025-05-02] MEDS: NOVOLOG FLEXPEN-LOW RESISTANCE SC (17:55)
[2025-05-02] MEDS: BENADRYL 25 MG PO (18:42)
[2025-05-02 20:20] VITALS: BP 109/66
[2025-05-02 21:41] LABS: Glucose - Point of Care 120 mg/dl (70-99)
[2025-05-02] MEDS: REMERON 30 MG PO (21:48)
[2025-05-02 23:44] VITALS: BP 120/68
[2025-05-03 02:58] LABS: Glucose - Point of Care 205 mg/dl (70-99)
[2025-05-03] MEDS: BENADRYL 25 MG PO ×2 (03:40→19:58)
[2025-05-03] MEDS: TYLENOL 1000 MG PO ×3 (05:32→23:06)
[2025-05-03] MEDS: MORPHINE SULFATE 15 MG PO ×3 (05:32→19:57)
[2025-05-03 06:00] VITALS: BMI 31.2
[2025-05-03 07:00] VITALS: BP 116/60
--- NOTE | 2025-05-03 07:53 | PN.DE.MGMTRT ---
Insulin Management
- -
05/03/2025: Diabetes Management Follow up
Patient admitted from [facility] 03/21 with c/o bleeding L heel wound. PMH type 1 diabetes, R BKA, L toe amputation, recent debridement L heel, [place], CHF, HTN, CKD, NE, recent admission 01/21 and 03/05 s/p
transmetatarsal L amputation and debridement. Prior to admission was receiving Lantus 30 units BID with Humalog insulin ss AC. A1C on admission 6.9%, (improved from 8.1%). Cr 1.1, eGFR > 60 today.
Prior to incarceration was living in a fci per patient he will return there.
Patient awake, alert, oriented, sitting up in bed, able to discuss diabetes care plan. States he doesn't know why his glucose is variable.
POD# 12 s/p Left BKA, doing well, Hgb stable 8.7, Cr 1.2, eGFR >60. Now with +C-Diff, Awaiting return to [facility]
05/02 AC NovoLog reduced from 10 units to 6 units with Lantus 25 units BID and low corrective insulin with meals. Glucose range 109 to 167. Will make no change to regimen
Discussed with nurse. Will cont to follow and adjust insulin dose if necessary.
Pt awaiting transfer back to [facility].
Diabetes History
- -
Type of Diabetes: 1
Pre-Admission Diabetes Regimen
05/02/25
11:33
Creatinine 1.2
Lab Results
Hemoglobin A1c 6.9 % (4.0-5.6) H 03/22/25 06:24
Insulin Pump Settings
IP Diabetes Regimen
05/02/25 05/02/25 05/02/25
11:33 12:33 17:53
Glucose 187 H
POC Glucose 164 H 109 H
05/02/25 05/03/25
21:40 02:56
Glucose
POC Glucose 120 H 205 H
Meal type: Lunch
Meal type: Breakfast
Amount consumed: 100%
Amount consumed: 100%
Patient Education
[2025-05-03] MEDS: NEURONTIN 300 MG PO ×3 (08:08→22:52)
[2025-05-03] MEDS: PROTONIX 40 MG PO (08:08)
[2025-05-03] MEDS: DIFICID 200 MG PO (08:08)
[2025-05-03] MEDS: RANEXA EXTENDED RELEASE 1000 MG PO ×2 (08:08→19:47)
[2025-05-03] MEDS: ASPIR LOW (ENTERIC COATED) 81 MG PO (08:08)
[2025-05-03] MEDS: CYMBALTA DELAYED RELEASE 30 MG PO (08:09)
[2025-05-03] MEDS: IMDUR (EXTENDED RELEASE) 60 MG PO (08:09)
[2025-05-03] MEDS: COREG 25 MG PO ×2 (08:09→19:47)
[2025-05-03] MEDS: DEMADEX 10 MG PO (08:09)
[2025-05-03] MEDS: FEOSOL 325 MG PO ×2 (08:10→19:47)
[2025-05-03] MEDS: FLORASTOR 250 MG PO ×2 (08:13→19:47)
[2025-05-03 08:33] LABS: Glucose - Point of Care 239 mg/dl (70-99)
[2025-05-03] MEDS: NOVOLOG FLEXPEN-LOW RESISTANCE 2 UNITS SC ×2 (08:45→12:45)
[2025-05-03] MEDS: NOVOLOG FLEXPEN 6 UNITS SC ×3 (08:46→17:27)
[2025-05-03] MEDS: LANTUS 0.25 UNITS SC ×2 (08:46→22:51)
--- NOTE | 2025-05-03 09:09 | CM ---
Addendum entered by Daily Galeana 05/03/25 14:10:
PA informed CM that patient apparently had an allergic reaction to dificid, now saying he is not allergic to vancomycin and wanting oral vancomycin instead. Will await new script to fax to [facility]
Updated Lidia, will inform her charge nurse to look out for script this evening. Lidia stated depending on dosage, she'll determine how long it'll take for them to receive it
Original Note:
Spoke w/ Lidia/[facility] county administrator, confirmed patient's d/c need of dificid. Lidia requesting script to be faxed, earliest turnaround to fill rx would be tomorrow morning if script is received early
TT hospitalist, confirmed PA will write script
[facility]
Report: [phone]

Plan: Return to [facility] once medication is obtained. Hopefully tomorrow
[2025-05-03 11:40] VITALS: BP 127/67; PULSE 104; O2SAT 95
--- NOTE | 2025-05-03 12:04 | W.PN.ID1 ---
Date of Service
Date of Service: May 03, 2025
Today's Communication
- vancomycin is not absorbed systemically, agree with oral vancomycin even with reported allergy; 10 day course is sufficient
Assessment / Plan
# C difficile
- vancomycin is not absorbed systemically, agree with oral vancomycin even with reported allergy; 10 day course is sufficient
# Osteomyelitis Left foot TMA site wound dehiscence with necrosis
- Failed multiple revisions
- 04/21/25 s/p left BKA
- s/p daptomycin and ceftaz/avibactam, dc'd on 04/25.
- Wound Care.
# Right BKA stump superficial scab over bony prominence.
- Possible eventual revision of stump
# Allergies: PCN, cephalosporin, meropenem, Vancomycin; tolerated Avyzaz
# Incarcerated
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
Diabetes mellitus
CAD status post PCI
CHF
hx CKD3
Hypertension
Guillain-Potts� syndrome/CIDP, plasma exchange q 2 months
PAD status post right BKA
Left hallux and second toe osteomyelitis status post amputation and debridement of left heel ulcer January 21, 2025
Left foot TMA, I+D left heel wound and bone biopsy of heel (neg osteo) Mar 08, 2025 (path surgical cure)
Chief Complaint
-: Other (Foot wound)
Subjective / Review of Systems
afebrile
bp stable
willing to take oral vancomycin today
Vital Signs / Physical Exam
Vital Signs
Vital Signs
Temp Pulse Resp BP Pulse Ox
99.2 F 104 16 116/60 97
05/03/25 07:00 05/03/25 07:00 05/03/25 07:00 05/03/25 07:00 05/03/25 07:00
Physical Exam
Constitutional: No Acute Distress
Cardiovascular: Regular Rate and S1/S2; Negative Murmur or Rub
Pulmonary: Clear and Symmetric; Negative Wheezes or Rales
Gastrointestinal: Soft, Non Tender, Non Distended and Normal Bowel Sounds
Skin: Warm and Dry; Negative Rash or Jaundice
Objective Data
Lab Data
Lab Results
05/02/25 11:33
05/02/25 11:33
ESR Cancelled 04/17/25 10:48
PT 13.7 Sec (11.4-14.6) 04/17/25 06:33
INR 1.02 04/17/25 06:33
APTT 33.8 Sec (23.4-35.0) 04/17/25 06:33
Estimated Creat Clear 114 ml/min 05/02/25 11:33
Lactic Acid 0.8 mmol/L (0.7-2.0) 03/25/25 01:16
Total Bilirubin 0.3 mg/dl (0.2-1.3) 05/01/25 06:42
AST 14 U/L (17-59) L 05/01/25 06:42
ALT 11 U/L (0-50) 05/01/25 06:42
Alkaline Phosphatase 83 U/L (38-126) 05/01/25 06:42
Most recent labs reviewed.
Micro Results:
05/02/25 11:42 C. difficile GDH Antigen & Toxins - Final
Feces/Stool Toxigenic C.difficile Positive
04/27/25 09:32 Blood Culture - Final
Blood/Venous No Growth - Final Report
04/27/25 08:33 Blood Culture - Final
Blood/Venous No Growth - Final Report
04/27/25 10:24 Urine Culture - Final
Urine NO GROWTH
03/25/25 16:52 Fungal Culture - Final
Foot - Left Anna albicans
04/13/25 16:07 Wound Culture - Final
Foot - Left Enterobacter cloacae
Gram Stain - Final
04/13/25 16:07 Anaerobic Culture - Final
Foot - Left NO ANAEROBES ISOLATED
04/04/25 16:30 Wound Culture - Final
Foot - Left Enterobacter cloacae
Gram Stain - Final
04/04/25 16:30 Anaerobic Culture - Final
Foot - Left NO ANAEROBES ISOLATED
03/31/25 10:51 Blood Culture - Final
Blood/Venous No Growth - Final Report
03/31/25 10:22 Blood Culture - Final
Blood/Venous No Growth - Final Report
03/25/25 09:33 Blood Culture - Final
Blood/Venous No Growth - Final Report
03/25/25 16:56 Wound Culture - Final
Foot - Left Staph aureus MRSA
Enterococcus faecalis - VRE
Gram Stain - Final
03/25/25 16:56 Anaerobic Culture - Final
Foot - Left NO ANAEROBES ISOLATED
03/25/25 16:52 Wound Culture - Final
Foot - Left Staph aureus MRSA
Enterococcus faecalis - VRE
Gram Stain - Final
03/25/25 16:52 Anaerobic Culture - Final
Foot - Left NO ANAEROBES ISOLATED
03/25/25 01:16 Blood Culture - Final
Blood/Venous No Growth - Final Report
03/27/25 10:35 Urine Culture - Final
Urine Anna albicans
03/24/25 12:51 Salmonella/Shigella Culture - Final
Feces/Stool No Salmonella, Shigella, Aeromonas or Plesiomonas species
isolated.
Campylobacter Culture - Final
No Campylobacter species isolated.
Shiga Toxin Test - Final
No E. coli Shiga Toxin 1 or 2 detected.
03/21/25 21:00 Blood Culture - Final
Blood/Venous No Growth - Final Report
03/21/25 21:00 Blood Culture - Final
Blood/Venous No Growth - Final Report
03/21/25 21:16 Wound Culture - Final
Foot - Left Enterococcus faecalis - VRE
Anna albicans
Gram Stain - Final
03/24/25 12:53 C. difficile GDH Antigen & Toxins - Final
Feces/Stool C. difficile antigen positive, toxin negative.
Clostridium difficile present, but toxin not detected.
Patient may be a carrier, colonized with nontoxinogenic
strain or the level of toxin in sample is below detection
limits. This information should be used in conjunction with
the patient's clinical history.
03/22/25 13:07 MRSA Screen - Final
Nose No Methicillin Resistant Staphylococcus aureus isolated.
Care Review
Plan reviewed with: Physician (Dr Collins - oral vancomycin)
[2025-05-03 12:29] LABS: Glucose - Point of Care 204 mg/dl (70-99)
[2025-05-03] MEDS: TYLENOL PO (12:46)
--- NOTE | 2025-05-03 13:30 | W.PN.HOSP.TC ---
Addendum entered and electronically signed by Min Collins MD 05/03/25 15:47:
Seen and examined the patient separately. Agree with the plan set forth by the resident
Patient now states that he has never had oral vancomycin and he was never allergic to that. It is also unclear what kind of reaction he had with IV vancomycin.
I discussed with the patient that he has to be very sure about consequences of laboring antibiotics as allergies because he could potentially benefit from these medicines in future to treat potentially life-threatening conditions.
Abdomen is soft and nontender bowel sounds are appreciated
Antibiotics changed to p.o. vancomycin from [facility]
Correctional facility will be given a prescription
He is also complaining of some discomfort in the right knee therefore we will get x-rays
As long as correctional facility can secure vancomycin we can discharge him tomorrow.
Original Note:
Today's Communication/Plan
-
Right Knee XR. Abx changed to vancomycin PO. Discharge once the [facility] to fill [facility], likely tomorrow.
Assessment / Plan
Assessment / Plan
Sang Post is a 29M w/ PMHx significant for T1-IDDM, CIDP, HTN, GERD, CKD stage IIIA, history of osteomyelitis with R BKA who presented with left foot osteomyelitis and wound dehisence of left transmetatarsal amputaton, treated by means of L
BKA. Additionally, he has received 11U of pRBCs over the course of this admission. Patient returned C. Diff positive this morning and treatment was initiated.
Assessment/Plan:
-Left foot TMA site with wound dehiscence: Resolved- left BKA
05/03: swelling and pain noted by PT team; ordered Rt Knee XR
-History of left foot TMA on 03/08: Resolved�left BKA
-Acute blood Loss Anemia secondary to the above: Resolved�left BKA
Vascular ultrasound showed no significant arterial stenosis on the left however Doppler waveforms suggest disease within the distal SFA/popliteal artery and infrapopliteal disease may also be present as per arterial studies. Multiple lymph nodes
were also seen in the left thigh which may be reactive.
Wound cultures grew MRSA, VRE
Blood cultures did not show any growth
Underwent ultrasound of the left lower extremity did not show any evidence of DVT
Iron supplementation continue
Continue monitoring hemoglobin daily and transfuse as needed to maintain hemoglobin greater than 7
Status postdebridement 03/25.
Pathology results came back which showed focal acute osteomyelitis and detached fragment of fibrino-purulent exudate
Patient underwent his open TMA revision and wound debridement on 04/04 -there was significant drainage postoperatively - pathology positive for acute and chronic osteomyelitis
Wound culture from 04/04 positive for Enterobacter Cloacae
Podiatry recommends nonweightbearing to the left lower extremity and continued elevation of the extremity on 2-3 pillows
Patient's lab work on the morning of 04/07/2025 had a hemoglobin at 7.1 with a hematocrit of 20.7�repeat H&H ordered which was 6.7 - 1 PRBC ordered on 04/07/25
Podiatry has tentatively planned for revision surgery of the L foot after pathology returns from most recent debridement on 04/06/25
Patient had an episode of acute blood loss on 04/08/2025 where a large amount of blood was lost from his foot wound. 1 PRBC given on 04/08/25
Scheduled for OR with podiatry for debridement vs lisfranc disarticulation on 04/13/25 - procedure tolerated well
Patient's Hgb is 7.5 on 04/15/25 - will continue to follow - if <7 then will transfuse PRBCs
Patient received 1 unit of PRBCs on 04/16/2025
Continue Holding anticoagulants postoperatively - will resume near discharge date
Appreciate hematology recommendations -they are under the impression that the patient is suffering from some element of WILBER and recommended continuing with oral iron supplement.
We have initiated anemia workup with LDH at 171, haptoglobin pending, Positive Candie test, 1+ BOBBY IgG, stool heme test, and PT/PTT were within normal limits. Based on positive Candie test, consider drug-induced immune hemolytic anemia, delayed
hemolytic transfusion reaction, or cold agglutinin disease
Abdominal ultrasound found that the liver and spleen were within normal limits in size without hepatosplenomegaly. No ascites. Tiny gallstones without sonographic features of acute cholecystitis. No bile duct dilatation.
Patient tolerated his Left BKA and is recovering postoperatively. POD 5 on 04/25/24 for L BKA
As per ID recommendations - Stump looks clean, discontinued Daptomycin and Ceftazidime/Avibactam and plan for DC
Patient spiked a fever on 04/27/25 with 101.1 temp. Reconsulted ID, CXR ordered, COVID negative, UA with reflex to culture ordered, BCs x2 ordered - BCs negative and COVID negative
-Right BKA: Stable/monitoring
Appears clean and dry without signs of infection.
-Hypoactive delirium likely due to opiate overdose: Resolved
-Hyperkalemia: Resolved
Patient was hyperkalemic with postassium of 5.5 on 04/14/25
Lokelma given, Insulin adjusted to home dose.
Repeat potassium on 04/15/25 is 4.9 - within normal limits.
Potassium was 5.7 on 04/18/2025�Lokelma given
Torsemide has been resumed
Potassium stable
Clostridium Difficile Infection:
C. Diff positive 05/02
Vancomycin PO 125mg qid for 10 days (stop after 05/11)
Patient transitioned to Dificid after allergy noted, but patient states that he felt clammy and itchy. Switched back to Vancomycin 125mg qid.
Patient to be discharged once the [facility] receives the script for the abx.
- History of ASCVD: Stable/monitoring
- Status post stent placement: Stable/monitoring
- Chest pain: Stable/monitoring
EKG/troponin negative for any acute process
ASA held
Plavix 75mg held
Statin held
Continue Ranolazine
Continue Carvedilol
Type 1 diabetes with Hyperglycemia and neuropathy: Stable/monitoring
A1C = 8.1% in January. Hba1c on 03/21/25 was 6.9 indicating improvement in overall glycemic control
Diabetes BRANCH OPERATION EVALUATION MANAGER consulted, recommendations appreciated
Continue gabapentin, continue duloxetine
Lantus adjusted to 25 units, Aspart adjusted to 8 units at breakfast, lunch and dinner.
-AMBER on CKD IIIa: Stable/monitoring
Continue to monitoring creatinine, has been hovering around 1.4/1.5
Urine studies show pre-renal cause, likely from hypovolemic state
Continued elevated creatinine level at 1.6 on 04/04/2025
Continue monitoring BMP.
Torsemide resumed
IV fluid support
-GERD: Stable/monitoring
Continue Pantoprazole
-Chronic inflammatory demyelinating polyneuropathy: Stable/monitoring
Continue current meds, will need to arrange for PLEX in outpatient setting once discharged
FULL CODE
GI PPx: Pantoprazole
DVT Prophylaxis: SCDs

Imaging:
-Left foot x-ray conducted on 03/21/2025:
Status post amputation at the level of the first through fifth proximal metatarsal bones.
No radiographic evidence for osteomyelitis.
- Bilateral lower extremity arterial ultrasound exam conducted on 03/23/2025:
1. Ankle-brachial indices and toe brachial indices could not be measured due to prior amputations.
2. No focal significant arterial stenosis demonstrated on the left side on duplex imaging. Spectral Doppler waveform analysis is suggestive of disease within the distal SFA/popliteal artery. Infrapopliteal disease may also be present.
3. Multiple lymph nodes are seen within the left thigh, which may be reactive.
-Peripheral vascular ultrasound of the left lower extremity conducted on 03/31/2025:
No evidence of DVT of the left lower extremity.

Procedures:
03/03/2025-initial amputation of left transmetatarsal
03/25/2025-debridement of infected left metatarsal amputation
04/04/2025-revision debridement of left heel wound with calcaneal biopsy.
Anticipated Discharge: Within 24 hours
Subjective/Interval History
-
Date of Service: May 03, 2025
Endorses multiple loose stools overnight. Last night says he experienced itching, clamminess with dose of Dificid. Says that he has never had PO vancomycin before. Has had IV vancomycin once in the past that caused some itching, but that was well
controlled with Benadryl and a nonissue. Says that he would rather do PO vancomycin. Also c/o right knee swelling/pain.
Objective Data
-
Vital Signs:
Vital Signs
Temp Pulse Resp BP Pulse Ox
99.2 F 104 16 116/60 97
05/03/25 07:00 05/03/25 07:00 05/03/25 07:00 05/03/25 07:00 05/03/25 07:00
I&O
05/02/25 05/03/25 05/04/25
06:59 06:59 06:59
Intake Total 1200 / 1200 600 / 600
Output Total 2700 / 2700
Balance -1500 / -1500 600 / 600
Review of Systems
-
History Source: Patient
All other systems: Reviewed and negative
Physical Exam
-
General: No Apparent Distress, Comfortable and Conversant
HEENT: Normocephalic, Atraumatic and Moist Mucous Membranes
Respiratory: Clear to Auscultation and Non Labored Respirations; Negative Wheezes, Rales, Rhonchi or Crackles
Cardiac: Regular Rhythm and S1/S2
GI: Soft, Nontender, Nondistended and Normal Bowel Sounds
Musculoskeletal: Other (Left BKA: Gauze and Hemal wrap are clean dry and intact. Right BKA: Appears clean without signs of erythema or infection.)
Skin: Warm and Dry
Neuro: Awake, Alert and Oriented
Psych: Calm
Data Reviewed
-
Total Time Spent with Patient (in minutes): 34
Labs: Labs Reviewed by me
[2025-05-03 15:44] VITALS: BP 119/68
[2025-05-03 17:21] LABS: Glucose - Point of Care 301 mg/dl (70-99)
[2025-05-03] MEDS: NOVOLOG FLEXPEN-LOW RESISTANCE 4 UNITS SC (17:27)
[2025-05-03] MEDS: LIPITOR 80 MG PO (17:28)
[2025-05-03] MEDS: LOVENOX 40 MG SC (17:30)
[2025-05-03] MEDS: FIRVANQ 125 MG PO ×2 (17:56→23:06)
[2025-05-03 22:04] LABS: Glucose - Point of Care 265 mg/dl (70-99)
[2025-05-03] MEDS: REMERON 30 MG PO (22:52)
[2025-05-03 23:18] VITALS: BP 99/51
--- NOTE | 2025-05-04 02:17 | DOWNTIME ---
There was a [employer] Client Wash Tank Tender Downtime on 05/04/2025 from 0100 to 05/04/2025 at 0215. Downtime documentation of patient's care, including medication administrations, has been reconciled in the electronic record per guidelines. Refer to the
patient's paper chart under the miscellaneous tab to see printed paper medication records and downtime forms.
[2025-05-04 05:53] VITALS: BMI 31.7
[2025-05-04] MEDS: FIRVANQ 125 MG PO ×4 (06:31→23:01)
[2025-05-04] MEDS: TYLENOL 1000 MG PO ×3 (06:31→23:01)
[2025-05-04] MEDS: MORPHINE SULFATE 15 MG PO ×3 (06:34→20:03)
[2025-05-04 07:00] VITALS: BP 118/62
[2025-05-04] MEDS: DEMADEX PO (08:30)
[2025-05-04] MEDS: RANEXA EXTENDED RELEASE 1000 MG PO ×2 (08:30→20:02)
[2025-05-04] MEDS: ASPIR LOW (ENTERIC COATED) 81 MG PO (08:31)
[2025-05-04] MEDS: CYMBALTA DELAYED RELEASE 30 MG PO (08:31)
[2025-05-04] MEDS: PROTONIX 40 MG PO (08:31)
[2025-05-04] MEDS: COREG 25 MG PO ×2 (08:31→20:01)
[2025-05-04] MEDS: IMDUR (EXTENDED RELEASE) 60 MG PO (08:31)
[2025-05-04] MEDS: FEOSOL 325 MG PO ×2 (08:32→20:02)
[2025-05-04] MEDS: NEURONTIN 300 MG PO ×3 (08:32→21:47)
[2025-05-04] MEDS: FLORASTOR 250 MG PO ×2 (08:33→20:02)
[2025-05-04 08:34] LABS: Hematocrit 25.1 % (39.0-52.0); Hemoglobin 7.6 g/dL (13.0-18.0); Mean Corp Hgb Conc. 30.3 g/dL (33.0-37.0); Mean Corpuscular Volume 94.0 fL (80.0-94.0); Platelet Count 503 10^3/uL (130-400); Red Cell Dist. Width 14.7 % (11.5-14.5)
[2025-05-04 08:36] LABS: Glucose - Point of Care 244 mg/dl (70-99)
[2025-05-04] MEDS: NOVOLOG FLEXPEN-LOW RESISTANCE 2 UNITS SC ×2 (08:40→13:04)
[2025-05-04] MEDS: NOVOLOG FLEXPEN 6 UNITS SC ×2 (08:41→13:03)
[2025-05-04] MEDS: LANTUS 0.25 UNITS SC (08:41)
--- NOTE | 2025-05-04 09:16 | PN.DE.MGMTRT ---
Insulin Management
- -
05/04/2025: Diabetes Management Follow up
Patient admitted from [facility] 03/21 with c/o bleeding L heel wound. PMH type 1 diabetes, R BKA, L toe amputation, recent debridement L heel, Guillian Le [place], CHF, HTN, CKD, [place], recent admission 01/21 and 03/05 s/p
transmetatarsal L amputation and debridement. Prior to admission was receiving Lantus 30 units BID with Humalog insulin ss AC. A1C on admission 6.9%, (improved from 8.1%). Cr 1.1, eGFR > 60 today.
Prior to incarceration was living in a alf per patient he will return there.
Patient awake, alert, oriented, sitting up in bed, able to discuss diabetes care plan.
POD# 13 s/p Left BKA, doing well, Hgb stable 8.7, Cr 1.2, eGFR >60. Now with +C-Diff, Awaiting return to [facility]
05/02 AC NovoLog reduced from 10 units to 6 units with Lantus 25 units BID and low corrective insulin with meals. Glucose range 204 to 301. Would consider increasing AC novolog to 10 units but due to patient unreliability to eat meals will make
no change to regimen
Discussed with nurse. Will cont to follow and adjust insulin dose if necessary.
Pt awaiting transfer back to [facility].
Diabetes History
- -
Type of Diabetes: 1
Pre-Admission Diabetes Regimen
Lab Results
Hemoglobin A1c 6.9 % (4.0-5.6) H 03/22/25 06:24
Insulin Pump Settings
IP Diabetes Regimen
05/03/25 05/03/25 05/03/25
12:27 17:19 21:37
POC Glucose 204 H 301 H 265 H
05/04/25
08:34
POC Glucose 244 H
Meal type: Lunch
Meal type: Breakfast
Amount consumed: 100%
Amount consumed: 100%
Patient Education
--- NOTE | 2025-05-04 09:31 | W.PN.HOSP.TC ---
Addendum entered and electronically signed by Min Collins MD 05/04/25 16:37:
Seen and examined the patient. Agree with the plan set forth by the resident
Abdomen is soft and nontender. Not distended bowel sounds are appreciated. Amputation stump is stable, right knee no warmth or redness.
Patient reports diarrhea however nursing reports that he does not have that many episodes as the patient describes
Discussed with physical therapy-patient is able to transfer to chair with assist of 1
Right knee-orthopedics consulted to see if the patient needs drainage of the fluid
Hemoglobin noted-we will repeat
Hold torsemide today.
Insulin adjusted.
Pt tolerating PO Vanco
Original Note:
Today's Communication/Plan
-
Orthopedic evaluation for right knee suprapatellar effusion; if they do not plan to tap, stable for discharge.
Assessment / Plan
Assessment / Plan
Sang Post is a 29M w/ PMHx significant for T1-IDDM, CIDP, HTN, GERD, CKD stage IIIA, history of osteomyelitis with R BKA who presented with left foot osteomyelitis and wound dehisence of left transmetatarsal amputaton, treated by means of L
BKA. Additionally, he has received 11U of pRBCs over the course of this admission. Patient became C. Diff positive, and treatment was initiated. Currently being evaluated for R knee suprapatellar effusion.
Assessment/Plan:
-Left foot TMA site with wound dehiscence: Resolved- left BKA
-History of left foot TMA on 03/08: Resolved�left BKA
-Acute blood Loss Anemia secondary to the above: Resolved�left BKA
Vascular ultrasound showed no significant arterial stenosis on the left however Doppler waveforms suggest disease within the distal SFA/popliteal artery and infrapopliteal disease may also be present as per arterial studies. Multiple lymph nodes
were also seen in the left thigh which may be reactive.
Wound cultures grew MRSA, VRE
Blood cultures did not show any growth
Underwent ultrasound of the left lower extremity did not show any evidence of DVT
Iron supplementation continue
Continue monitoring hemoglobin daily and transfuse as needed to maintain hemoglobin greater than 7
Status postdebridement 03/25.
Pathology results came back which showed focal acute osteomyelitis and detached fragment of fibrino-purulent exudate
Patient underwent his open TMA revision and wound debridement on 04/04 -there was significant drainage postoperatively - pathology positive for acute and chronic osteomyelitis
Wound culture from 04/04 positive for Enterobacter Cloacae
Podiatry recommends nonweightbearing to the left lower extremity and continued elevation of the extremity on 2-3 pillows
Patient's lab work on the morning of 04/07/2025 had a hemoglobin at 7.1 with a hematocrit of 20.7�repeat H&H ordered which was 6.7 - 1 PRBC ordered on 04/07/25
Podiatry has tentatively planned for revision surgery of the L foot after pathology returns from most recent debridement on 04/06/25
Patient had an episode of acute blood loss on 04/08/2025 where a large amount of blood was lost from his foot wound. 1 PRBC given on 04/08/25
Scheduled for OR with podiatry for debridement vs lisfranc disarticulation on 04/13/25 - procedure tolerated well
Patient's Hgb is 7.5 on 04/15/25 - will continue to follow - if <7 then will transfuse PRBCs
Patient received 1 unit of PRBCs on 04/16/2025
Continue Holding anticoagulants postoperatively - will resume near discharge date
Appreciate hematology recommendations -they are under the impression that the patient is suffering from some element of WILBER and recommended continuing with oral iron supplement.
We have initiated anemia workup with LDH at 171, haptoglobin pending, Positive Candie test, 1+ BOBBY IgG, stool heme test, and PT/PTT were within normal limits. Based on positive Candie test, consider drug-induced immune hemolytic anemia, delayed
hemolytic transfusion reaction, or cold agglutinin disease
Abdominal ultrasound found that the liver and spleen were within normal limits in size without hepatosplenomegaly. No ascites. Tiny gallstones without sonographic features of acute cholecystitis. No bile duct dilatation.
Patient tolerated his Left BKA and is recovering postoperatively. POD 5 on 04/25/24 for L BKA
As per ID recommendations - Stump looks clean, discontinued Daptomycin and Ceftazidime/Avibactam and plan for DC
Patient spiked a fever on 04/27/25 with 101.1 temp. Reconsulted ID, CXR ordered, COVID negative, UA with reflex to culture ordered, BCs x2 ordered - BCs negative and COVID negative
-Right BKA: Stable/monitoring
Appears clean and dry without signs of infection.
05/03: swelling and pain noted by PT team; ordered Rt Knee XR
Shows significant suprapatellar effusion
Consulted orthopedist to evaluate (05/04)
-Hypoactive delirium likely due to opiate overdose: Resolved
-Hyperkalemia: Resolved
Patient was hyperkalemic with postassium of 5.5 on 04/14/25
Lokelma given, Insulin adjusted to home dose.
Repeat potassium on 04/15/25 is 4.9 - within normal limits.
Potassium was 5.7 on 04/18/2025�Lokelma given
Torsemide has been resumed
Potassium stable
Clostridium Difficile Infection:
C. Diff positive 05/02
Vancomycin PO 125mg qid for 10 days (stop after 05/11)
Patient transitioned to Dificid after allergy noted, but patient states that he felt clammy and itchy. Switched back to Vancomycin 125mg qid.
Patient to be discharged once the group home receives the script for the abx.
Script sent to the group home.
- History of ASCVD: Stable/monitoring
- Status post stent placement: Stable/monitoring
- Chest pain: Stable/monitoring
EKG/troponin negative for any acute process
ASA held
Plavix 75mg held
Statin held
Continue Ranolazine
Continue Carvedilol
Type 1 diabetes with Hyperglycemia and neuropathy: Stable/monitoring
A1C = 8.1% in January. Hba1c on 03/21/25 was 6.9 indicating improvement in overall glycemic control
Diabetes PARTS DEPARTMENT MANAGER consulted, recommendations appreciated
Continue gabapentin, continue duloxetine
Lantus adjusted to 25 units, Aspart adjusted to 8 units at breakfast, lunch and dinner.
-AMBER on CKD IIIa: Stable/monitoring
Continue to monitoring creatinine, has been hovering around 1.4/1.5
Urine studies show pre-renal cause, likely from hypovolemic state
Continued elevated creatinine level at 1.6 on 04/04/2025
Continue monitoring BMP.
Torsemide resumed
IV fluid support
-GERD: Stable/monitoring
Continue Pantoprazole
-Chronic inflammatory demyelinating polyneuropathy: Stable/monitoring
Continue current meds, will need to arrange for PLEX in outpatient setting once discharged
FULL CODE
GI PPx: Pantoprazole
DVT Prophylaxis: SCDs

Imaging:
-Left foot x-ray conducted on 03/21/2025:
Status post amputation at the level of the first through fifth proximal metatarsal bones.
No radiographic evidence for osteomyelitis.
- Bilateral lower extremity arterial ultrasound exam conducted on 03/23/2025:
1. Ankle-brachial indices and toe brachial indices could not be measured due to prior amputations.
2. No focal significant arterial stenosis demonstrated on the left side on duplex imaging. Spectral Doppler waveform analysis is suggestive of disease within the distal SFA/popliteal artery. Infrapopliteal disease may also be present.
3. Multiple lymph nodes are seen within the left thigh, which may be reactive.
-Peripheral vascular ultrasound of the left lower extremity conducted on 03/31/2025:
No evidence of DVT of the left lower extremity.

Procedures:
03/03/2025-initial amputation of left transmetatarsal
03/25/2025-debridement of infected left metatarsal amputation
04/04/2025-revision debridement of left heel wound with calcaneal biopsy.
Anticipated Discharge: Within 24 hours
Subjective/Interval History
-
Date of Service: May 04, 2025
Patient seen and examined while resting in bed. States he continues to have diarrhea. Continues to have swelling of the right knee. Notes that he did not have reaction to Vancomycin administration after taking Benadryl, as he did with the Dificid.
Objective Data
-
Labs:
Laboratory Results
05/04/25
08:01
WBC 13.4 H
Hgb 7.6 L
Hct 25.1 L
Plt Count 503 H
Vital Signs:
Vital Signs
Temp Pulse Resp BP Pulse Ox
97.6 F 100 15 118/62 97
05/04/25 07:00 05/04/25 07:00 05/04/25 07:00 05/04/25 07:00 05/04/25 07:00
I&O
05/03/25 05/04/25 05/05/25
06:59 06:59 06:59
Intake Total 600 / 600 1200 / 1200
Balance 600 / 600 1200 / 1200
Review of Systems
-
History Source: Patient
All other systems: Reviewed and negative
Physical Exam
-
General: No Apparent Distress; Negative Fever
HEENT: Normocephalic and Atraumatic
Respiratory: Clear to Auscultation and Non Labored Respirations; Negative Wheezes, Rales, Rhonchi or Crackles
Cardiac: Regular Rhythm and S1/S2; Negative Murmur
GI: Soft, Normal Bowel Sounds and Tender (mild, left side)
Musculoskeletal: Other (Left BKA: Gauze and Hemal wrap are clean dry and intact. Right BKA: Appears clean without signs of erythema or infection.)
Skin: Warm and Dry
Neuro: Awake and Alert
Psych: Calm
[2025-05-04 12:57] LABS: Glucose - Point of Care 254 mg/dl (70-99)
[2025-05-04] MEDS: TYLENOL PO (13:17)
[2025-05-04] MEDS: BENADRYL 25 MG PO ×2 (14:58→23:01)
[2025-05-04 15:00] VITALS: BP 134/75
[2025-05-04] MEDS: NOVOLOG FLEXPEN SC (16:40)
[2025-05-04 16:41] LABS: Hematocrit 23.3 % (39.0-52.0); Hemoglobin 7.3 g/dL (13.0-18.0)
[2025-05-04] MEDS: LOVENOX 40 MG SC (17:49)
[2025-05-04] MEDS: LIPITOR 80 MG PO (17:49)
[2025-05-04] MEDS: NOVOLOG FLEXPEN-LOW RESISTANCE 5 UNITS SC (17:50)
[2025-05-04 17:51] LABS: Glucose - Point of Care 379 mg/dl (70-99)
[2025-05-04 21:29] LABS: Glucose - Point of Care 407 mg/dl (70-99)
[2025-05-04] MEDS: REMERON 30 MG PO (21:47)
[2025-05-04 22:10] LABS: Glucose 398 mg/dl (70-99)
[2025-05-04] MEDS: LANTUS 0.26 UNITS SC (22:11)
[2025-05-04 23:42] VITALS: BP 135/66
[2025-05-05 05:14] VITALS: BMI 31.9
[2025-05-05] MEDS: FIRVANQ 125 MG PO ×4 (06:02→23:21)
[2025-05-05] MEDS: TYLENOL 1000 MG PO ×2 (06:02→11:23)
[2025-05-05] MEDS: MORPHINE SULFATE 15 MG PO ×3 (06:05→20:24)
[2025-05-05 07:51] LABS: Glucose - Point of Care 321 mg/dl (70-99)
[2025-05-05] MEDS: IMDUR (EXTENDED RELEASE) PO (08:00)
[2025-05-05 08:07] VITALS: BP 109/58
--- NOTE | 2025-05-05 08:10 | PN.DE.MGMTRT ---
Insulin Management
- -
05/05/2025: Diabetes Management Follow up
Patient admitted from [facility] 03/21 with c/o bleeding L heel wound. PMH type 1 diabetes, R BKA, L toe amputation, recent debridement L heel, Guillian Zillah, CHF, HTN, CKD, [place], recent admission 01/21 and 03/05 s/p
transmetatarsal L amputation and debridement. Prior to admission was receiving Lantus 30 units BID with Humalog insulin ss AC. A1C on admission 6.9%, (improved from 8.1%). Cr 1.1, eGFR > 60 today.
Prior to incarceration was living in a half-way per patient he will return there.
Patient awake, alert, oriented, sitting up in bed, able to discuss diabetes care plan.
POD# 14 s/p Left BKA, doing well, Hgb stable 7.3, Cr 1.2, eGFR >60. Now with +C-Diff, Awaiting return to [facility]
05/04 AC Novolog HELD at dinner HS glucose 407. Patient did receive Lantus 25 units @ HS and low corrective insulin with meals. Glucose range 379 to 407. 05/05 Will increase AC novolog to 10 units today with low corrective insulin, continue
Lantus 25 units BID.
Discussed with nurse. Will cont to follow and adjust insulin dose if necessary.
Pt awaiting transfer back to [facility].
Diabetes History
- -
Type of Diabetes: 1
Pre-Admission Diabetes Regimen
Lab Results
Hemoglobin A1c 6.9 % (4.0-5.6) H 03/22/25 06:24
Insulin Pump Settings
IP Diabetes Regimen
05/04/25 05/04/25 05/04/25
08:34 12:55 17:49
Glucose
POC Glucose 244 H 254 H 379 H
05/04/25 05/04/25 05/05/25
21:18 21:46 07:50
Glucose 398 H
POC Glucose 407 H 321 H
Meal type: Lunch
Meal type: Breakfast
Amount consumed: 85%
Amount consumed: 85%
Patient Education
[2025-05-05 08:20] LABS: Hematocrit 23.0 % (39.0-52.0); Hemoglobin 7.0 g/dL (13.0-18.0); Mean Corp Hgb Conc. 30.4 g/dL (33.0-37.0); Mean Corpuscular Volume 90.9 fL (80.0-94.0); Platelet Count 484 10^3/uL (130-400); Red Cell Dist. Width 14.9 % (11.5-14.5)
--- NOTE | 2025-05-05 08:40 | W.PN.UPDATE ---
Update Note
Progress Note Update
Patient seen this a.m. Large effusion about the right knee however some hyperechoic nature on limited nonvascular ultrasound. Utilizing sterile technique aspiration was obtained with approximately 10 cc of clear red hemarthrosis. Transferred
tubes for analysis. Recommend CT scan to evaluate for any acute osseous abnormalities relative to hemarthrosis. Full H&P to follow
[2025-05-05 09:16] LABS: ALT (SGPT) 15 U/L (0-50); AST (SGOT) 13 U/L (17-59); Albumin 3.1 g/dl (3.5-5.0); Alkaline Phosphatase 141 U/L (38-126); Blood Urea Nitrogen 62 mg/dl (9-20); Calcium 8.5 mg/dl (8.4-10.2); Carbon Dioxide 19 mmol/L (22-30); Chloride 98 mmol/L (98-107); Estimated Creatinine Clearance 34 ml/min; Glucose 309 mg/dl (70-99); Potassium 5.3 mmol/L (3.5-5.1); Sodium 126 mmol/L (135-145); eGFR 19.80
[2025-05-05 09:39] LABS: Total Protein 6.6 g/dl (6.3-8.2)
--- NOTE | 2025-05-05 10:04 | W.PN.ID1 ---
Date of Service
Date of Service: May 05, 2025
Today's Communication
fever workup
AMBER management per IM service
Assessment / Plan
# Fever
# Hemarthrosis
# AMBER - management per IM service
- fever may relate to the hemarthrosis he developed sporadically
- blood cultures x2 are ordered
- synovial fluid sent for analysis - results pending
- CT of the knee without overt complications
- ua sent
- check covid and influenza
- surgical sites are clean no evidence of infection
# C difficile
- vancomycin is not absorbed systemically, agree with oral vancomycin even with reported allergy; 10 day course is sufficient
# Osteomyelitis Left foot TMA site wound dehiscence with necrosis
- Failed multiple revisions
- 04/21/25 s/p left BKA
- s/p daptomycin and ceftaz/avibactam, dc'd on 04/25.
- Wound Care.
# Right BKA stump superficial scab over bony prominence.
- Possible eventual revision of stump
# Allergies: PCN, cephalosporin, meropenem, Vancomycin; tolerated Avyzaz
# Incarcerated
Conditions [employer]
Diabetes mellitus
CAD status post PCI
CHF
hx CKD3
Hypertension
Guillain-Potts� syndrome/CIDP, plasma exchange q 2 months
PAD status post right BKA
Left hallux and second toe osteomyelitis status post amputation and debridement of left heel ulcer January 21, 2025
Left foot TMA, I+D left heel wound and bone biopsy of heel (neg osteo) Mar 08, 2025 (path surgical cure)
Chief Complaint
-: Other (Foot wound)
Subjective / Review of Systems
febrile overnight
had a hemarthrosis of the right knee s/p aspiration
reports diarrhea is ongoing 5x/day yesterday
mild cough, no sputum production of sore throat
mild nausea no vomiting
some tenderness over the R knee,
Vital Signs / Physical Exam
Vital Signs
Vital Signs
Temp Pulse Resp BP Pulse Ox
100.1 F 98 18 109/58 96
05/05/25 08:07 05/05/25 08:07 05/05/25 08:07 05/05/25 08:07 05/05/25 08:07
Physical Exam
Constitutional: No Acute Distress
Cardiovascular: Regular Rate and S1/S2; Negative Murmur or Rub
Pulmonary: Clear and Symmetric; Negative Wheezes or Rales
Gastrointestinal: Soft, Non Tender, Non Distended and Normal Bowel Sounds
Skin: Warm and Dry; Negative Rash or Jaundice
Wound: Other (eschar over distal surgical site on the right; L side BKA site no erythema, warmth, swelling or tendnerness)
Objective Data
Lab Data
Lab Results
05/05/25 07:12
05/05/25 07:12
ESR Cancelled 04/17/25 10:48
PT 13.7 Sec (11.4-14.6) 04/17/25 06:33
INR 1.02 04/17/25 06:33
APTT 33.8 Sec (23.4-35.0) 04/17/25 06:33
Estimated Creat Clear 34 ml/min 05/05/25 07:12
Lactic Acid 0.8 mmol/L (0.7-2.0) 03/25/25 01:16
Total Bilirubin 0.4 mg/dl (0.2-1.3) 05/05/25 07:12
AST 13 U/L (17-59) L 05/05/25 07:12
ALT 15 U/L (0-50) 05/05/25 07:12
Alkaline Phosphatase 141 U/L (38-126) H 05/05/25 07:12
Most recent labs reviewed.
Micro Results:
05/05/25 09:08 Blood Culture - Pending
Blood/Venous
05/02/25 11:42 C. difficile GDH Antigen & Toxins - Final
Feces/Stool Toxigenic C.difficile Positive
04/27/25 09:32 Blood Culture - Final
Blood/Venous No Growth - Final Report
04/27/25 08:33 Blood Culture - Final
Blood/Venous No Growth - Final Report
04/27/25 10:24 Urine Culture - Final
Urine NO GROWTH
03/25/25 16:52 Fungal Culture - Final
Foot - Left Anna albicans
04/13/25 16:07 Wound Culture - Final
Foot - Left Enterobacter cloacae
Gram Stain - Final
04/13/25 16:07 Anaerobic Culture - Final
Foot - Left NO ANAEROBES ISOLATED
04/04/25 16:30 Wound Culture - Final
Foot - Left Enterobacter cloacae
Gram Stain - Final
04/04/25 16:30 Anaerobic Culture - Final
Foot - Left NO ANAEROBES ISOLATED
03/31/25 10:51 Blood Culture - Final
Blood/Venous No Growth - Final Report
03/31/25 10:22 Blood Culture - Final
Blood/Venous No Growth - Final Report
03/25/25 09:33 Blood Culture - Final
Blood/Venous No Growth - Final Report
03/25/25 16:56 Wound Culture - Final
Foot - Left Staph aureus MRSA
Enterococcus faecalis - VRE
Gram Stain - Final
03/25/25 16:56 Anaerobic Culture - Final
Foot - Left NO ANAEROBES ISOLATED
03/25/25 16:52 Wound Culture - Final
Foot - Left Staph aureus MRSA
Enterococcus faecalis - VRE
Gram Stain - Final
03/25/25 16:52 Anaerobic Culture - Final
Foot - Left NO ANAEROBES ISOLATED
03/25/25 01:16 Blood Culture - Final
Blood/Venous No Growth - Final Report
03/27/25 10:35 Urine Culture - Final
Urine Anna albicans
03/24/25 12:51 Salmonella/Shigella Culture - Final
Feces/Stool No Salmonella, Shigella, Aeromonas or Plesiomonas species
isolated.
Campylobacter Culture - Final
No Campylobacter species isolated.
Shiga Toxin Test - Final
No E. coli Shiga Toxin 1 or 2 detected.
03/21/25 21:00 Blood Culture - Final
Blood/Venous No Growth - Final Report
03/21/25 21:00 Blood Culture - Final
Blood/Venous No Growth - Final Report
03/21/25 21:16 Wound Culture - Final
Foot - Left Enterococcus faecalis - VRE
Anna albicans
Gram Stain - Final
03/24/25 12:53 C. difficile GDH Antigen & Toxins - Final
Feces/Stool C. difficile antigen positive, toxin negative.
Clostridium difficile present, but toxin not detected.
Patient may be a carrier, colonized with nontoxinogenic
strain or the level of toxin in sample is below detection
limits. This information should be used in conjunction with
the patient's clinical history.
03/22/25 13:07 MRSA Screen - Final
Nose No Methicillin Resistant Staphylococcus aureus isolated.
[2025-05-05] MEDS: NOVOLOG FLEXPEN-LOW RESISTANCE 4 UNITS SC ×2 (11:01→13:23)
[2025-05-05] MEDS: NOVOLOG FLEXPEN 10 UNITS SC ×3 (11:02→19:16)
[2025-05-05] MEDS: NSS 1000 IV ×2 (11:14→23:21)
[2025-05-05] MEDS: ASPIR LOW (ENTERIC COATED) 81 MG PO (11:19)
[2025-05-05] MEDS: COREG 25 MG PO (11:20)
[2025-05-05] MEDS: RANEXA EXTENDED RELEASE 1000 MG PO ×2 (11:22→20:20)
[2025-05-05] MEDS: FEOSOL 325 MG PO ×2 (11:22→20:20)
[2025-05-05] MEDS: PROTONIX 40 MG PO (11:22)
[2025-05-05] MEDS: NEURONTIN 300 MG PO ×3 (11:23→23:20)
[2025-05-05] MEDS: CYMBALTA DELAYED RELEASE 30 MG PO (11:23)
[2025-05-05] MEDS: LANTUS 0.26 UNITS SC ×2 (11:23→22:24)
--- NOTE | 2025-05-05 11:24 | CM ---
Chart reviewed. Patient had complaint yesterday of knee pain. Ortho was consulted, knee was aspirated this morning.
CT scan this morning
Discussed w/ nursing, patient feverish, swabbed for covid. Patient will receive transfusion today, hgb dropped
Updated Lidia/[facility] home health administrator, confirmed rx received for vancomycin. Rx to be received by tomorrow morning or afternoon
Plan: Return to [facility], hopefully tomorrow
[2025-05-05] MEDS: FLUSH (NSS) 1 FLUSH IV (11:25)
[2025-05-05 11:32] LABS: Estimated Creatinine Clearance 34 ml/min
[2025-05-05] MEDS: FLORASTOR 250 MG PO ×2 (11:33→20:20)
[2025-05-05 11:55] LABS: Glucose - Point of Care 323 mg/dl (70-99)
[2025-05-05 12:24] LABS: COVID-19 Antigen Negative (Negative)
[2025-05-05 13:14] LABS: Body Fluid Second Tech SS
[2025-05-05 13:35] VITALS: BP 113/67
[2025-05-05 13:40] LABS: Urine Character Cloudy (Clear)
[2025-05-05 13:55] VITALS: BP 114/68
[2025-05-05 14:17] LABS: Urine Red Blood Cell 21-25 /HPF (0-2); Urine Squamous Cell 0-2 /LPF (Few); Urine Urothelial Cell 0-2 /LPF (FEW); Urine White Cell 70-80 /HPF (0-5)
--- NOTE | 2025-05-05 14:50 | W.PN.UPDATE ---
Update Note
Progress Note Update
29-year-old male recently admitted to [facility] on 03/05/2025 to 03/17/2025 for osteomyelitis of the left foot. He underwent amputation of the first 2 digits of the left foot on 01/21/2025. Return with wound dehiscence and ultimately
required TMA and heel debridement on 03/08/2025. Completed inpatient course of antibiotics on 03/16/2025. Reportedly he 'banged' his foot on the vehicle while leaving the hospital and returned on the same day for evaluation of the wound. Since then
he has had worsening of bleeding and oozing from the left foot with increased pain in the left foot. Previous notes and discharge summaries reviewed, suspecting that the patient was picking on his surgical wounds which led to the bleeding and
possible infection..
Echo 02/15/2025-normal LV size, wall thickness and systolic function. Right ventricular size and systolic function within normal limits. LA is normal. RA is normal.
Right [id number] changes of the distal femur noted. Moderate to large suprapatellar joint effusion with scattered foci of gas likely related to recent aspiration. Extensive vascular calcifications.
Patient is awake alert oriented
Cardiovascular system S1-S2 appreciated
Chest clear to auscultation
Abdomen soft and nontender
Right BKA stump is stable, small superficial ulcers
Left TMA site trino intact
# Acute kidney injury earlier during admission resolved. Now creatinine is 4.1
Patient states that he forgot to straight cath himself yesterday
Patient has been doing straight caths every [address] a Castillo now
Once creatinine improves I will have nursing do straight caths every 6 hours instead of relying on the patient
Check urinalysis and urine sodium
IV fluids
Nephrology evaluation requested.
# Hyponatremia-possibly secondary to urinary retention, also spuriously in the setting of hypoglycemia
Follow BMP serially
# Right suprapatellar effusion-aspirated today 05/04/2025 by orthopedics
WBCs 9420 with 95% polymorphonuclear cells
Fluid cultures pending
Crystals pending
# C. difficile colitis
Initially patient said he was allergic to vancomycin therefore started on Dificid
Later he stated that he is not allergic to p.o. vancomycin therefore p.o. vancomycin was initiated
# Fevers
Discontinued Tylenol standing orders
Check blood cultures
Continue treatment for C. difficile
Await fluid studies from the right knee aspiration
Infectious disease following
# Osteomyelitis of the left foot TMA site, wound dehiscence with necrosis
Went to the OR on 03/25/2025 for I&D, removal of necrotic bone and amputation site, heel wound debridement and wound VAC-cultures grew VRE and MRSA. Wound pathology showed acute osteomyelitis
Status post revision on 04/04/2025-open TMA revision , removal of nonviable bone and heel wound debridement down to subcutaneous tissue-cultures Enterobacter Cloacae. Pathology clearing fragment chronic osteomyelitis
04/13/2025-Status post left Lisfranc disarticulation, heel wound debridement, plantar flap. Cultures with Enterobacter. Biopsy pending
S/P BKA on 04/21/2026
Strict nonweightbearing
IV antibiotics-daptomycin started on 03/25/2025. Ceftazidime /Avibactam started on 04/06/2025. Completed AB
# Diabetes-hemoglobin V5v-sde reliable in the setting of anemia
Was on Lantus 30 units twice daily and NovoLog 10 units AC prior to arrival
Currently on 26 units twice daily with 10 units of AC NovoLog and sliding scale.
Check beta-hydroxybutyrate. If positive will need insulin drip
# Mild hyperkalemia-resolved with Lokelma. Patient was also continuing on daily diuretics which is on hold now.
# Acute blood loss anemia secondary to bleeding from left TMA and heel debridement on top of chronic anemia
No active bleeding at present but patient still is anemic
Candie test positive, but per heme no antibodies and complement negative therefore hemolysis not suspected.
11 units of PRBCs transfused this admission, Order one more today.
Hematology evaluated this admission.
Aspirin to be continued
Plavix was discontinued this admission secondary severe anemia. 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
# Coronary disease with history of PCI-Continue aspirin ,Statin and Ranexa . Hold Imdur and Coreg.
# Thrombocytosis-likely secondary to infection
# History of heart failure unknown type per chart. Normal EF now.
# Hypertension- Hold Coreg
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 Continue duloxetine and gabapentin for pain
# Peripheral disease with history of right BKA
Right BKA stump has a small ulcer which needs wound care daily
Right BKA revision as outpatient
# Left hallux and second toe osteomyelitis with amputation and debridement of the left heel ulcer January 21, 2025
Left foot TMA I&D left heel wound and bone biopsy of the heel March 08, 2025-negative pathology for osteomyelitis
Eventually underwent left BKA on 04/21/2026
Wound is stable trino still in
# Diabetic neuropathy-continue gabapentin and duloxetine
# Hyperlipidemia-continue statin
# Chronic urinary retention/neurogenic bladder-self catheterizes. I have changed self-catheterization protocol to be done by nursing
# GERD-continue PPI
# Anxiety and depression-on Remeron, duloxetine
# Hypoalbuminemia
# DVT prophylaxis-Lovenox changed to JATIN
# Full code
D/W RN
Discussed with infectious disease
D/W Nephrology
Time over 50 min
Part of this note was created using voice recognition system. Occasional wrong word or��sound alike� substitutions may have inadvertently occurred due to the inherent limitations of voice recognition software. If noted kindly bring it to my
attention for correction.
[2025-05-05 15:07] VITALS: BP 115/72
[2025-05-05 15:30] VITALS: BP 115/72
[2025-05-05] MEDS: OMNIPAQUE 50 ML PO (16:08)
--- NOTE | 2025-05-05 16:11 | W.CON.NEPH ---
Consultation
-
Date/Time Consultation Requested: May 05, 2025 3 PM
Date/Time Consultation Performed: May 05, 2025 4 PM
Requesting Provider: Min Collins
Performing Provider: Dr. Taveras
Reason for Consultation: Acute kidney injury
Medical History
-
Chief Complaint: Acute kidney injury
History of Present Illness:
This is a 29-year-old incarcerated gentleman who has type 1 diabetes on chronic insulin therapy which is well-controlled by his report. He also has CIDP which he says is treated with plasma exchange every 2 months He also has a right BKA due to
osteomyelitis in the past. He presented with osteomyelitis of the left foot status post amputation and debridement of left heel ulcer on January 21, 2025. He was subsequently discharged back to [facility] but returned because of bleeding from the left
heel wound and anemia. He was discharged on February 24 with a creatinine of 1.9. He has been here for a long duration from March 22. He since had a left BKA had blood loss. He has been seen by hematology for anemia has been worked up for
hemolysis negative. Being treated for C. difficile on p.o. antibiotic until May 11.
He has a new acute kidney injury on chronic kidney disease with baseline creatinine around 1.4 jumped to 4.1 apparently has been doing straight catheterization every 6 hour apparently has not done so for a day although he denies that. He was
straight cathed by nursing staff put out 500 and then bladder scan showed another 500.
Also has hyponatremia.
Renal consult for acute kidney injury
Past Medical History
Diabetes mellitus
CAD status post PCI
CHF
hx CKD3
Hypertension
Guillain-Potts� syndrome/CIDP, plasma exchange q 2 months
PAD status post right BKA
Left hallux and second toe osteomyelitis status post amputation and debridement of left heel ulcer January 21, 2025
Social History
Tobacco: Non-Smoker
Alcohol: None
Living: [facility]
Family History
Factor V Leiden, diabetes mellitus type 2, coronary artery disease
Grandmother ESRD in her 80s
Allergies / Home Medications
Allergy/AdvReac Type Severity Reaction Status Date / Time
cefepime Allergy Itching, Verified 03/18/25 19:52
rash
ibuprofen Allergy Unknown Verified 03/18/25 19:52
meropenem Allergy Itching, Verified 03/18/25 19:52
rash
oxycodone Allergy Unknown Verified 03/18/25 19:52
Penicillins Allergy Unknown Verified 03/18/25 19:52
silver Allergy Hives Verified 03/18/25 19:52
silver nitrate Allergy Hives Verified 03/18/25 19:52
sweet potato Allergy Unknown Verified 03/18/25 19:52
tuna oil Allergy Unknown Verified 03/18/25 19:52
turkey Allergy Unknown Verified 03/18/25 19:52
vancomycin Allergy Itchy Rash Verified 03/28/25 08:47
�Medication �Instructions �Recorded �Confirmed �Type
aspirin 81 mg tablet,delayed 81 mg PO DAILY Blood Clot 02/02/25 03/23/25 History
release Prevention/Tx
atorvastatin 80 mg tablet 80 mg PO HS High Cholesterol 02/02/25 03/23/25 History
carvedilol 25 mg tablet 25 mg PO BID Heart Failure 02/02/25 03/23/25 History
insulin glargine 100 unit/mL (3 30 unit SC BID Diabetes 02/02/25 03/23/25 History
mL) subcutaneous pen (Lantus
Solostar U-100 Insulin)
isosorbide mononitrate 60 mg 60 mg PO DAILY Heart 02/02/25 03/23/25 History
tablet,extended release 24 hr Disease/Condition
pantoprazole 40 mg tablet,delayed 40 mg PO DAILY Gastrointestinal 02/02/25 03/23/25 History
release (Protonix) Issue
ranolazine 1,000 mg 1,000 mg PO BID Heart 02/02/25 03/23/25 History
tablet,extended release,12 hr Disease/Condition
duloxetine 30 mg capsule,delayed 30 mg PO DAILY Mental 02/07/25 03/23/25 History
release Health/Anxiety
gabapentin 300 mg capsule 300 mg PO TID NEUROPATHIC PAIN 02/07/25 03/23/25 History
insulin regular human 100 unit/mL 1 sliding scale dose SC AC Diabetes 02/07/25 03/23/25 History
injection solution (Humulin R
Regular U-100 Insulin)
docusate sodium 100 mg capsule 100 mg PO BID #30 caps 02/21/25 03/23/25 Rx
torsemide 20 mg tablet 40 mg PO DAILY Fluid 03/05/25 03/23/25 History
Retention/Swelling
insulin aspart U-100 100 unit/mL 10 unit (0.1 mL) SC AC #15 mL 03/18/25 03/23/25 Rx
(3 mL) subcutaneous pen
clopidogrel 75 mg tablet 75 mg PO DAILY Blood Clot 03/21/25 03/23/25 History
Prevention/Tx
collagenase clostridium histo. 250 1 applic topical HS Skin Issues 03/21/25 03/23/25 History
unit/gram topical ointment (Santyl)
sodium hypochlorite 0.5 % solution 1 applic topical BID WOUND 03/21/25 03/23/25 History
(Dakin's Solution)
mirtazapine 30 mg tablet 30 mg PO HS Mental Health/Anxiety 03/23/25 03/23/25 History
CBC and CMP #1 ea 04/30/25 Rx
Occupational Therapy #1 ea 04/30/25 Rx
Physical Therapy #1 ea 04/30/25 Rx
Review of Systems
-
No chest pain or shortness of breath complains of ongoing diarrhea
Physical Exam
Vital Signs
Vital Signs
Temp Pulse Resp BP Pulse Ox
98.6 F 91 20 115/72 91
05/05/25 15:07 05/05/25 15:07 05/05/25 15:07 05/05/25 15:07 05/05/25 15:07
Lab Results
WBC 12.3 10^3/uL (4.8-10.8) H 05/05/25 07:12
RBC 2.53 10^6/uL (4.70-6.10) L 05/05/25 07:12
Hgb 7.0 g/dL (13.0-18.0) L 05/05/25 07:12
Hct 23.0 % (39.0-52.0) L 05/05/25 07:12
Plt Count 484 10^3/uL (130-400) H 05/05/25 07:12
eGFR 19.80 05/05/25 07:12
Albumin 3.1 g/dl (3.5-5.0) L 05/05/25 07:12
Physical Exam
General: AOx3, Nontoxic , NAD, obese
HEENT: PERRL, EOMI, Anicteric, Conjunctivae Clear, Ear/Nose Intact, Hearing Normal, Oropharynx Clear/Moist, Dentition Intact, Facial Symmetry, Neck Supple, Neck: Trachea Midline, No JVD and No Thyromegaly, no Bruits
Respiratory: Clear to auscultation bilaterally with normal lung exersion
Cardiac: S1/S2 and Regular Rate/Rhythm
Breast: Deferred by me
Abdomen: Soft, Nontender, Nondistended, Normal Bowel Sounds and No Hepatosplenomegaly
Rectal: Deferred by Provider
Genito-urinary: No Costovertebral Tenderness
Extremities: No Clubbing, No Cyanosis and +2 pitting edema of left lower extremity, left foot wound wrapped, right AKA
Skin: No Rash or open lesions
Neuro: Nonfocal/Grossly Intact, CN II-XII (Intact) and Strength (Musculoskeletal exam 5 out of 5 both upper and lower extremities)
Hematologic/Lymphatic: No Cervical Lymphadenopathy, No Submandibular Lymphadenopathy and No Supraclavicular Lymphadenopathy
Psych: Mood/afflect pleasant, Insight/judgement good and Appropriate
Vascular: plus 1pedal and radial pulses
Data Reviewed
-
Labs: Labs Reviewed by me, Discussed with Physician and Discussed with Nurse
Assessment/Plan
-
Assessment
AMBER/hyponatremia/urinary retention requiring straight catheterization= creatinine up to 4.1 from baseline
C. difficile
Left 1st, 2nd and 3rd metatarsal head osteomyelitis/subsequent leg BKA
Left heel wound, osteomyelitis
Diabetes mellitus type 1
Anemia, iron deficiency
Heart failure unknown EF
CIDP
GERD
Bladder outlet obstruction(does SC at home), Castillo catheter
Proteinuria
Plan
New fevers= culture
Apparently has not been doing the straight catheterization for couple days.
Likely obstructive component into acute kidney injury
Castillo catheter to be placed discussed this with the primary hospitalist
AM labs
Discontinue nephrotoxic medication
--- NOTE | 2025-05-05 16:12 | W.PN.UPDATE ---
Update Note
Progress Note Update
2nd aspiration performed as cultures were not possible through specimens sent. Approximately 20cc of frothy cloudy yellow joint fluid aspirated; transferred with sterile technique for repeat cell count, cultures, gram stain and crystal analysis.
[2025-05-05 17:24] LABS: Glucose - Point of Care 136 mg/dl (70-99)
[2025-05-05] MEDS: NOVOLOG FLEXPEN SC (17:45)
[2025-05-05] MEDS: NOVOLOG FLEXPEN-LOW RESISTANCE SC (17:46)
--- NOTE | 2025-05-05 18:40 | CON.ORTHO ---
Consultation - Orthopedics
History
29-year-old male currently incarcerated with inpatient admission at [facility] dating back to 21 March and previous admission from 18 March through 02 February 2025 with a complicated past medical history with new onset of right knee pain
and swelling x 1 day. His admission is relative to his type 1 diabetes and vascular disease with relative sequela history of osteomyelitis with bilateral knee amputations.
At his baseline he reports remote amputation more than 2 years ago and history while training with his prosthetic device in [place] that he had next in the fall and sustained a distal right femur fracture. He underwent a retrograde nail fixation
there was reportedly uncomplicated per patient 2 years ago. He states over his time of admission he has not had any significant issues with his right knee however his prosthetic is in [place] and he has been nonweightbearing. He denies any new
traumatic injuries. Reports globalized pain about the right knee and his residual limb
Allergies / Home Medications
Past Medical History
Past Medical History: Reports Other
Additional Past Medical History:
IDDM
Osteomyelitis
S/P left hallux and 2nd digit amputation due to osteomyelitis and debridement of left heel ulcer 01/21/25
CAD status post PCI
Hypertension
CHF
Guillian Potts�
GERD.
Past Surgical History: Reports Other
Additional Past Surgical History:
B/L BKA
PTCA with Stent
Right distal femur retrograde IMN 2022
Social History
Tobacco: Non-smoker
Alcohol: None
Drug: None
Personal: Single
Living: Sk[facility] ([facility]
Employment: Disabled
Family History
Family History: Other (Mother factor V Leiden, CAD/CABG, DM 2 55, father living history CAD multiple stents, DM 2, 4 half sisters 1 with history of factor V Leiden)
Allergies / Home Medications
Allergy/AdvReac Type Severity Reaction Status Date / Time
cefepime Allergy Itching, Verified 03/18/25 19:52
rash
ibuprofen Allergy Unknown Verified 03/18/25 19:52
meropenem Allergy Itching, Verified 03/18/25 19:52
rash
oxycodone Allergy Unknown Verified 03/18/25 19:52
Penicillins Allergy Unknown Verified 03/18/25 19:52
silver Allergy Hives Verified 03/18/25 19:52
silver nitrate Allergy Hives Verified 03/18/25 19:52
sweet potato Allergy Unknown Verified 03/18/25 19:52
tuna oil Allergy Unknown Verified 03/18/25 19:52
turkey Allergy Unknown Verified 03/18/25 19:52
vancomycin Allergy Itchy Rash Verified 03/28/25 08:47
�Medication �Instructions �Recorded
aspirin 81 mg tablet,delayed 81 mg PO DAILY Blood Clot 02/02/25
release Prevention/Tx
atorvastatin 80 mg tablet 80 mg PO HS High Cholesterol 02/02/25
carvedilol 25 mg tablet 25 mg PO BID Heart Failure 02/02/25
insulin glargine 100 unit/mL (3 30 unit SC BID Diabetes 02/02/25
mL) subcutaneous pen (Lantus
Solostar U-100 Insulin)
isosorbide mononitrate 60 mg 60 mg PO DAILY Heart 02/02/25
tablet,extended release 24 hr Disease/Condition
pantoprazole 40 mg tablet,delayed 40 mg PO DAILY Gastrointestinal 02/02/25
release (Protonix) Issue
ranolazine 1,000 mg 1,000 mg PO BID Heart 02/02/25
tablet,extended release,12 hr Disease/Condition
duloxetine 30 mg capsule,delayed 30 mg PO DAILY Mental 02/07/25
release Health/Anxiety
gabapentin 300 mg capsule 300 mg PO TID NEUROPATHIC PAIN 02/07/25
insulin regular human 100 unit/mL 1 sliding scale dose SC AC Diabetes 02/07/25
injection solution (Humulin R
Regular U-100 Insulin)
docusate sodium 100 mg capsule 100 mg PO BID #30 caps 02/21/25
torsemide 20 mg tablet 40 mg PO DAILY Fluid 03/05/25
Retention/Swelling
insulin aspart U-100 100 unit/mL 10 unit (0.1 mL) SC AC #15 mL 03/18/25
(3 mL) subcutaneous pen
clopidogrel 75 mg tablet 75 mg PO DAILY Blood Clot 03/21/25
Prevention/Tx
collagenase clostridium histo. 250 1 applic topical HS Skin Issues 03/21/25
unit/gram topical ointment (Santyl)
sodium hypochlorite 0.5 % solution 1 applic topical BID WOUND 03/21/25
(Dakin's Solution)
mirtazapine 30 mg tablet 30 mg PO HS Mental Health/Anxiety 03/23/25
CBC and CMP #1 ea 04/30/25
Occupational Therapy #1 ea 04/30/25
Physical Therapy #1 ea 04/30/25
Vital Signs / Lab Results
Temp Pulse Resp BP Pulse Ox
98.6 F 91 20 115/72 94
05/05/25 15:30 05/05/25 15:30 05/05/25 15:30 05/05/25 15:30 05/05/25 15:30
PHYSICAL EXAM: Focused examination of the right residual limb shows a large effusion about the right knee. No erythema. Limited range of motion secondary to pain. Superficial mild chronic wounds of the distal residual limb
IMAGING: X-rays taken of the right knee show diffuse osteopenia. There is retrograde intramedullary nail fixation with possible prominence at the intercondylar notch. Status post below-knee amputation. Moderate to large effusion. Some fracture
lucency as well as evidence of some union regarding his fracture site without evidence of hardware complication otherwise
CT completed of the right knee showing partially immunized distal femur fracture without evidence of hardware complication. Possible prominence entry point at the intercondylar notch of the intramedullary nail fixation. Moderate to large effusion
05/05/25 07:12
Assessment / Plan
29-year-old male with a complicated past medical history of type 1 diabetes and severe vascular disease with admission relatively constant over the past 3 months status post bilateral knee amputation more recently in the left and remotely of the
right and history of a distal femur fracture 2 years ago with new onset of pain and swelling about the right knee. He has been nonweightbearing during his admission as he does not have his prosthetic device and denies any new injuries.
Differential diagnose at this time is septic arthritis versus inflammatory arthropathy. Patient is recommended for aspiration for diagnostic purposes.
PROCEDURE: Right knee Ultrasound Guided Arthrocentesis
MEDICATIONS INJECTED:
Lidocaine 1% without epinephrine 20mg/mL: 4cc
Bupivacaine 0.25% without epinephrine 125mg/50mL: 4cc
PROCEDURE DETAIL:
After verbal consent was obtained and laterality was confirmed, the patient was offered a lead net software developer and declined. The right knee underwent a limited non-vascular ultrasound examination; see report. The site of injection was then identified utilizing
a linear transducer. The skin was then sterilized with alcohol and the needle introduced using a direct visualization linear approach. The needle was visible on the screen and placed intra-articular and as much fluid was aspirated as possible. Once
no more aspirate could be obtained, the needle was maintained and syringe removed, and a separate syringe with the above medications was then attached, needle revisualized on screen, and injected intra-articular. There was minimal bleeding. There
were no immediate side effects or adverse events and the patient was at baseline immediately following the procedure. Approximately 15 cc of bloody joint fluid was aspirated; needle was well-visualized on limited nonvascular ultrasound however with
limited yield.

UPDATE
Lab results of the fluid testing of the right knee show total white count of only 9420 however with 95% polymorphonuclear cells and positive for calcium pyrophosphate disease. Tube specimens were incompatible for cultures. Repeat aspiration was
indicated for purpose of cultures.
Aspiration performed under sterile technique at bedside with Dr. Cain utilizing again a superior lateral approach with aid of manual pressure yielded approximately 20 cc of frothy cloudy yellow joint fluid. Bleeding was controlled afterward and the
aspiration site cleaned with alcohol and compression wrapped. Tube specimens were transferred using sterile technique.
New labs were ordered and we will follow these; discussed possibility for OR but would involve hardware removal with debridement irrigation of the right knee. Patient was counseled by Dr. Cain. Will place tentatively n.p.o. for tomorrow pending
new synovial fluid testing
--- NOTE | 2025-05-05 18:50 | PTCARENOTE ---
Patient currently off unit for radiology and Ct scan studies. Will report to nightshift.
[2025-05-05] MEDS: LIPITOR 80 MG PO (19:15)
[2025-05-05] MEDS: HEPARIN 5000 UNITS SC (20:20)
[2025-05-05 20:45] LABS: Blood Urea Nitrogen 65 mg/dl (9-20); Calcium 8.1 mg/dl (8.4-10.2); Carbon Dioxide 18 mmol/L (22-30); Chloride 99 mmol/L (98-107); Estimated Creatinine Clearance 35 ml/min; Glucose 99 mg/dl (70-99); Potassium 5.0 mmol/L (3.5-5.1); Sodium 125 mmol/L (135-145); eGFR 20.41
[2025-05-05 21:08] LABS: Glucose - Point of Care 92 mg/dl (70-99)
[2025-05-05] MEDS: REMERON 30 MG PO (23:20)
[2025-05-05 23:48] VITALS: BP 146/78
[2025-05-06] VITALS (16 sets, daily range): BP systolic 109–145; BP diastolic 69–80; BMI 32.2
[2025-05-06] MEDS: FIRVANQ 125 MG PO ×3 (05:12→19:53)
[2025-05-06] MEDS: TYLENOL 1000 MG PO (05:12)
[2025-05-06] MEDS: NSS 1000 IV ×4 (05:12→19:52)
--- NOTE | 2025-05-06 07:20 | PN.DE.MGMTRT ---
Insulin Management
- -
05/06/2025: Diabetes Management Follow up
Patient admitted from [facility] 03/21 with c/o bleeding L heel wound. PMH type 1 diabetes, R BKA, L toe amputation, recent debridement L heel, Guillian Moriches, CHF, HTN, CKD, [place], recent admission 01/21 and 03/05 s/p
transmetatarsal L amputation and debridement. Prior to admission was receiving Lantus 30 units BID with Humalog insulin ss AC. A1C on admission 6.9%, (improved from 8.1%). Cr 1.1, eGFR > 60 today.
Prior to incarceration was living in a [facility] per patient he will return there.
Patient awake, alert, oriented, sitting up in bed, c/o feeling sluggish and tired, able to discuss diabetes care plan.
POD# 15 s/p Left BKA, Hgb 6.6, Cr 3.3, eGFR 24.94. Now with +C-Diff, AMBER and w/u for septic arthritis vs inflammatory arthropathy
05/04 AC NovoLog HELD at dinner HS glucose 407. Patient did receive Lantus 25 units @ HS and low corrective insulin with meals. Glucose range 379 to 407. 05/05 Lantus dose was increased to 26 units BID and AC NovoLog to 10 units, glucose improved
to range of 92 to 136
Tis morning glucose is low normal, fasting 85V, 87 POC, pt is NPO for OR later today, on IVF, AM Lantus dose has been held today.
Resume his diabetes regimen after OR today. Lantus 26 units BID, NovoLog 10 units AC and low corrective insulin with meals
Discussed with nurse, instructed to HOLD insulin. D/W Vascular PA about timing to OR, pt may need dextrose infusion if glucose remains low.
Will cont to follow and adjust insulin dose if necessary.
Diabetes History
- -
Type of Diabetes: 1
Pre-Admission Diabetes Regimen
05/05/25 05/05/25 05/05/25
07:12 10:46 20:16
Creatinine 4.0 H 4.1 H* 3.9 H
Lab Results
Hemoglobin A1c 6.9 % (4.0-5.6) H 03/22/25 06:24
Insulin Pump Settings
IP Diabetes Regimen
05/05/25 05/05/25 05/05/25
07:12 07:50 11:53
Glucose 309 H
POC Glucose 321 H 323 H
05/05/25 05/05/25 05/05/25
17:23 20:16 21:07
Glucose 99
POC Glucose 136 H 92
Meal type: Breakfast
Amount consumed: 100%
Patient Education
--- NOTE | 2025-05-06 08:11 | W.PN.UPDATE ---
Update Note
Progress Note Update
Mr. Anderson is resting comfortably in bed this morning. He denies any improvement in his right knee symptoms overnight. He reports he continues to feel somewhat run down, but otherwise is doing well. He did have a fever of 102.9 early this morning.
His knee was re-aspirated yesterday afternoon and this was sent for testing.
Right knee aspirate cell count/gram stain/culture pending. I did reach out to the lab, and orders were incomplete, so they are working on cell count now.
Patient was negative for Flu and Covid.
Blood cultures pending.
Patient is tentatively scheduled for a knee washout today, pending labs from knee aspirate. I am also working on getting records from previous right femur IM nail. I am communicating with the community outreach worker to try and have these records faxed from
[facility] in [facility].
For now, continue treatment per primary. Pain control prn. Will continue to follow.
[2025-05-06 08:39] LABS: Glucose - Point of Care 87 mg/dl (70-99)
[2025-05-06 08:57] LABS: Blood Urea Nitrogen 63 mg/dl (9-20); Calcium 8.1 mg/dl (8.4-10.2); Carbon Dioxide 16 mmol/L (22-30); Chloride 103 mmol/L (98-107); Estimated Creatinine Clearance 42 ml/min; Glucose 85 mg/dl (70-99); Potassium 4.8 mmol/L (3.5-5.1); Sodium 125 mmol/L (135-145); eGFR 24.94
[2025-05-06] MEDS: NOVOLOG FLEXPEN-LOW RESISTANCE SC ×3 (09:05→17:18)
[2025-05-06] MEDS: NOVOLOG FLEXPEN SC ×3 (09:05→17:18)
[2025-05-06] MEDS: NEURONTIN 300 MG PO ×2 (09:16→22:53)
[2025-05-06] MEDS: RANEXA EXTENDED RELEASE 1000 MG PO ×2 (09:17→20:10)
[2025-05-06] MEDS: PROTONIX 40 MG PO (09:17)
[2025-05-06] MEDS: CYMBALTA DELAYED RELEASE 30 MG PO (09:18)
[2025-05-06] MEDS: FEOSOL 325 MG PO ×2 (09:18→19:53)
[2025-05-06] MEDS: FLORASTOR 250 MG PO ×2 (09:18→19:54)
[2025-05-06 09:23] LABS: Hematocrit 20.7 % (39.0-52.0); Hemoglobin 6.6 g/dL (13.0-18.0); Mean Corp Hgb Conc. 32.4 g/dL (33.0-37.0); Mean Corpuscular Volume 87.9 fL (80.0-94.0); Platelet Count 450 10^3/uL (130-400); Red Cell Dist. Width 15.2 % (11.5-14.5)
[2025-05-06 09:24] LABS: C-Reactive Protein > 270.00 mg/L (0.0-10.00)
[2025-05-06 10:11] LABS: Body Fluid Second Tech CMB
[2025-05-06] MEDS: ASPIR LOW (ENTERIC COATED) PO (11:25)
[2025-05-06 11:29] LABS: Glucose - Point of Care 71 mg/dl (70-99)
[2025-05-06] MEDS: HEPARIN SC (11:36)
[2025-05-06] MEDS: LANTUS SC (11:36)
--- NOTE | 2025-05-06 11:58 | W.PN.NEPH.PH ---
Today's Communication / Plan
-
IV fluid with bicarbonate maintain Castillo catheter
Assessment/Plan
-
Assessment
AMBER/hyponatremia/urinary retention requiring straight catheterization= creatinine up to 4.1 from baseline
C. difficile
Left 1st, 2nd and 3rd metatarsal head osteomyelitis/subsequent leg BKA
Left heel wound, osteomyelitis
Diabetes mellitus type 1
Anemia, iron deficiency
Heart failure unknown EF
CIDP
GERD
Bladder outlet obstruction(does SC at home), Castillo catheter
Proteinuria
Plan
New fevers= culture/knee aspirate
Castillo catheter in place nonoliguric
Creatinine improved to 3.3 this is secondary to urinary retention
Mild metabolic acidosis secondary to urinary retention on IV fluids with bicarbonate
AM labs
Torsemide on hold
Sodium 129 stable
Urine white blood cells with leukoesterase fever infectious disease on board= pancultured
-
-
Date of Service: May 06, 2025
CC / HPI / ROS
-
Chief Complaint:
AMBER with urine
History of Present Illness:
AMBER with urinary retention now with indwelling Castillo catheter improving
Review of Systems:
No chest pain or shortness of breath
Nonoliguric
Fevers
Labs
-
Labs:
WBC 12.1 10^3/uL (4.8-10.8) H 05/06/25 07:28
RBC 2.32 10^6/uL (4.70-6.10) L 05/06/25 07:28
Hgb 6.6 g/dL (13.0-18.0) L* 05/06/25 07:28
Hct 20.7 % (39.0-52.0) L* 05/06/25 07:28
Plt Count 450 10^3/uL (130-400) H 05/06/25 07:28
Sodium 125 mmol/L (135-145) L 05/06/25 07:28
Potassium 4.8 mmol/L (3.5-5.1) 05/06/25 07:28
Chloride 103 mmol/L (98-107) 05/06/25 07:28
Carbon Dioxide 16 mmol/L (22-30) L 05/06/25 07:28
BUN 63 mg/dl (9-20) H 05/06/25 07:28
Creatinine 3.3 mg/dL (0.7-1.3) H 05/06/25 07:28
eGFR 24.94 05/06/25 07:28
Glucose 85 mg/dl (70-99) 05/06/25 07:28
Calcium 8.1 mg/dl (8.4-10.2) L 05/06/25 07:28
Albumin 3.1 g/dl (3.5-5.0) L 05/05/25 07:12
Physical Exam
-
Vital Signs:
Vital Signs
Temp Pulse Resp BP Pulse Ox
99.1 F 95 20 138/74 96
05/06/25 11:45 05/06/25 11:45 05/06/25 11:45 05/06/25 11:45 05/06/25 11:45
Cardiovascular:: Regular rate and rhythm
Respiratory:: Bilateral: CTA
Lung Excursion:: Normal
Abdomen:: Soft
Bowel Sounds:: Normal
--- NOTE | 2025-05-06 13:22 | W.PN.UPDATE ---
Update Note
Progress Note Update
29-year-old male recently admitted to [facility] on 03/05/2025 to 03/17/2025 for osteomyelitis of the left foot. He underwent amputation of the first 2 digits of the left foot on 01/21/2025. Return with wound dehiscence and ultimately
required TMA and heel debridement on 03/08/2025. Completed inpatient course of antibiotics on 03/16/2025. Reportedly he 'banged' his foot on the vehicle while leaving the hospital and returned on the same day for evaluation of the wound. Since then
he has had worsening of bleeding and oozing from the left foot with increased pain in the left foot. Previous notes and discharge summaries reviewed, suspecting that the patient was picking on his surgical wounds which led to the bleeding and
possible infection..
Echo 02/15/2025-normal LV size, wall thickness and systolic function. Right ventricular size and systolic function within normal limits. LA is normal. RA is normal.
Right senp-RG-MWVO changes of the distal femur noted. Moderate to large suprapatellar joint effusion with scattered foci of gas likely related to recent aspiration. Extensive vascular calcifications.
Patient is slightly drowsy arousable able to communicate
Cardiovascular system S1-S2 appreciated
Chest clear to auscultation
Abdomen soft and nontender
Right BKA stump is stable, small superficial ulcers, status post aspiration. Mild warmth
Left TMA site trino intact
# Acute kidney injury earlier during admission resolved. Now creatinine is 4.1
Patient states that he forgot to straight cath himself one day prior to getting AMBER
Patient has been doing straight caths every 6 hours himself.
Placed a Castillo now
Once creatinine improves I will have nursing do straight caths every 6 hours instead of relying on the patient
Abnormal urinalysis
IV fluids normal saline. Extra fluids with dextrose started because of hypokalemia
Nephrology evaluation appreciated
# Hyponatremia-possibly secondary to urinary retention, also AMBER
Follow BMP
# Fevers
Discontinued Tylenol standing orders
Blood cultures negative
Continue treatment for C. difficile
Right suprapatellar effusion-aspirated 05/04/2025 and also 05/05/2025 by orthopedics
First cell count was 9420. Second cell count was 95,200 both polymorphonuclear predominance
Also has inflammatory arthritis pseudogout-possible infection on top of that
Await fluid studies from the right knee aspiration-high cell count but Gram stain is negative. Cultures pending
For I&D in the OR
Infectious disease following
With patient's anemia and fevers I have also ordered complements, serologies to rule out autoimmune
# C. difficile colitis
Initially patient said he was allergic to vancomycin therefore started on Dificid
Later he stated that he is not allergic to p.o. vancomycin therefore p.o. vancomycin was initiated
# Osteomyelitis of the left foot TMA site, wound dehiscence with necrosis
Went to the OR on 03/25/2025 for I&D, removal of necrotic bone and amputation site, heel wound debridement and wound VAC-cultures grew VRE and MRSA. Wound pathology showed acute osteomyelitis
Status post revision on 04/04/2025-open TMA revision , removal of nonviable bone and heel wound debridement down to subcutaneous tissue-cultures Enterobacter Cloacae. Pathology clearing fragment chronic osteomyelitis
04/13/2025-Status post left Lisfranc disarticulation, heel wound debridement, plantar flap. Cultures with Enterobacter. Biopsy pending
S/P BKA on 04/21/2026
Strict nonweightbearing
IV antibiotics-daptomycin started on 03/25/2025. Ceftazidime /Avibactam started on 04/06/2025. Completed AB
# Diabetes-hemoglobin [id number] reliable in the setting of anemia
Was on Lantus 30 units twice daily and NovoLog 10 units AC prior to arrival
Currently on 26 units twice daily with 10 units of AC NovoLog and sliding scale.
Lantus held in the morning of 05/06/2025 because of sugars being low.
Sugars with dextrose while n.p.o.
# Mild hyperkalemia-resolved with Lokelma. Patient was also continuing on daily diuretics which is on hold now.
# Acute blood loss anemia secondary to bleeding from left TMA and heel debridement on top of chronic anemia
No active bleeding at present but patient still is anemic
Candie test positive, but per heme no antibodies and complement negative therefore hemolysis not suspected.
12 units of PRBCs transfused this admission, Order one more today.
Hematology evaluated this admission. Again discussed on 05/05/25
Aspirin to be continued given CAD
Plavix was discontinued this admission secondary severe anemia. Patient should follow-up with hematology as well as his outpatient automatic buffing wheel former to see if he needs to restart this.
# Coronary disease with history of PCI-Continue aspirin ,Statin and Ranexa . Restart Imdur and Coreg at a lower dose.
# Thrombocytosis-likely secondary to infection
# History of heart failure unknown type per chart. Normal EF now.
# Hypertension-restart Coreg at a lower dose
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 Continue duloxetine and gabapentin for pain
# Peripheral disease with history of right BKA
Right BKA stump has a small ulcer which needs wound care daily
Right BKA revision as outpatient
# Left hallux and second toe osteomyelitis with amputation and debridement of the left heel ulcer January 21, 2025
Left foot TMA I&D left heel wound and bone biopsy of the heel March 08, 2025-negative pathology for osteomyelitis
Eventually underwent left BKA on 04/21/2026
Wound is stable trino still in
# Diabetic neuropathy-continue gabapentin and duloxetine
# Hyperlipidemia-continue statin
# Chronic urinary retention/neurogenic bladder-self catheterizes. I have changed self-catheterization protocol to be done by nursing ( Once he gets Castillo out)
# GERD-continue PPI
# Anxiety and depression-on Remeron, duloxetine
# Hypoalbuminemia
# DVT prophylaxis-Lovenox changed to JATIN
# Full code
D/W RN
D/W Nephrology
D/W Hematology orchestra conductor- Supportive treatment advised for anemia.
Transfer to telemetry
Time over 50 min
Part of this note was created using voice recognition system. Occasional wrong word or��sound alike� substitutions may have inadvertently occurred due to the inherent limitations of voice recognition software. If noted kindly bring it to my
attention for correction.
[2025-05-06] MEDS: SODIUM BICARBONATE 1150 MEQ IV (13:29)
[2025-05-06 14:45] LABS: Glucose - Point of Care 67 mg/dl (70-99)
[2025-05-06] MEDS: DEXTROSE 50% SYRINGE 12.5 GRAMS IV (14:50)
--- NOTE | 2025-05-06 15:06 | PTCARENOTE ---
Relayed to receiving RN that patients poc glucose is 67. Administered dextrose per order. Relayed that glucose check will need to be repeated in 15 min. See MAR for details
--- NOTE | 2025-05-06 15:34 | W.PN.HOSP.TC ---
Today's Communication/Plan
-
.
Assessment / Plan
Assessment / Plan
Sang Post is a 29M w/ PMHx significant for T1-IDDM, CIDP, HTN, GERD, CKD stage IIIA, history of osteomyelitis with R BKA who presented with left foot osteomyelitis and wound dehiscence of left transmetatarsal amputation, treated by means of L
BKA. Additionally, he has received 12U of pRBCs over the course of this admission. Patient became C. Diff positive, and treatment was initiated. Currently being evaluated for R knee suprapatellar effusion w/ aspirate showing a septic knee.
Assessment/Plan:
-Left foot TMA site with wound dehiscence: Resolved- left BKA
-History of left foot TMA on 03/08: Resolved�left BKA
-Acute blood Loss Anemia secondary to the above: Resolved�left BKA
Vascular ultrasound showed no significant arterial stenosis on the left however Doppler waveforms suggest disease within the distal SFA/popliteal artery and infrapopliteal disease may also be present as per arterial studies. Multiple lymph nodes
were also seen in the left thigh which may be reactive.
Wound cultures grew MRSA, VRE
Blood cultures did not show any growth
Underwent ultrasound of the left lower extremity did not show any evidence of DVT
Iron supplementation continue
Continue monitoring hemoglobin daily and transfuse as needed to maintain hemoglobin greater than 7
Status postdebridement 03/25.
Pathology results came back which showed focal acute osteomyelitis and detached fragment of fibrino-purulent exudate
Patient underwent his open TMA revision and wound debridement on 04/04 -there was significant drainage postoperatively - pathology positive for acute and chronic osteomyelitis
Wound culture from 04/04 positive for Enterobacter Cloacae
Podiatry recommends nonweightbearing to the left lower extremity and continued elevation of the extremity on 2-3 pillows
Patient's lab work on the morning of 04/07/2025 had a hemoglobin at 7.1 with a hematocrit of 20.7�repeat H&H ordered which was 6.7 - 1 PRBC ordered on 04/07/25
Podiatry has tentatively planned for revision surgery of the L foot after pathology returns from most recent debridement on 04/06/25
Patient had an episode of acute blood loss on 04/08/2025 where a large amount of blood was lost from his foot wound. 1 PRBC given on 04/08/25
Scheduled for OR with podiatry for debridement vs lisfranc disarticulation on 04/13/25 - procedure tolerated well
Patient's Hgb is 7.5 on 04/15/25 - will continue to follow - if <7 then will transfuse PRBCs
Patient received 1 unit of PRBCs on 04/16/2025
Continue Holding anticoagulants postoperatively - will resume near discharge date
Appreciate hematology recommendations -they are under the impression that the patient is suffering from some element of WILBER and recommended continuing with oral iron supplement.
We have initiated anemia workup with LDH at 171, haptoglobin pending, Positive Candie test, 1+ BOBBY IgG, stool heme test, and PT/PTT were within normal limits. Based on positive Candie test, consider drug-induced immune hemolytic anemia, delayed
hemolytic transfusion reaction, or cold agglutinin disease
Abdominal ultrasound found that the liver and spleen were within normal limits in size without hepatosplenomegaly. No ascites. Tiny gallstones without sonographic features of acute cholecystitis. No bile duct dilatation.
Patient tolerated his Left BKA and is recovering postoperatively. POD 5 on 04/25/24 for L BKA
As per ID recommendations - Stump looks clean, discontinued Daptomycin and Ceftazidime/Avibactam and plan for DC
Patient spiked a fever on 04/27/25 with 101.1 temp. Reconsulted ID, CXR ordered, COVID negative, UA with reflex to culture ordered, BCs x2 ordered - BCs negative and COVID negative
Patient required additional units of pRBCs on 05/05 and 05/06. As of that date, total 13U.
On 05/06 we discussed the case with Hematology, order reticulocyte count and they will see again. No role for BM Bx.
-Right BKA: Stable/monitoring
Swelling noted; ortho consulted
Aspirate shows a septic joint, taken for washout on 05/06/25
Await abx recommendations
-Hypoactive delirium likely due to opiate overdose: Resolved
-Hyperkalemia: Resolved
Patient was hyperkalemic with postassium of 5.5 on 04/14/25
Lokelma given, Insulin adjusted to home dose.
Repeat potassium on 04/15/25 is 4.9 - within normal limits.
Potassium was 5.7 on 04/18/2025�Lokelma given
Torsemide has been resumed
Potassium stable
Clostridium Difficile Infection:
C. Diff positive 05/02
Vancomycin PO 125mg qid for 10 days (stop after 05/11)
Patient transitioned to Dificid after allergy noted, but patient states that he felt clammy and itchy. Switched back to Vancomycin 125mg qid.
- History of ASCVD: Stable/monitoring
- Status post stent placement: Stable/monitoring
- Chest pain: Stable/monitoring
EKG/troponin negative for any acute process
ASA held
Plavix 75mg held
Statin held
Continue Ranolazine
Continue Carvedilol
Type 1 diabetes with Hyperglycemia and neuropathy: Stable/monitoring
A1C = 8.1% in January. Hba1c on 03/21/25 was 6.9 indicating improvement in overall glycemic control
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
Continue gabapentin, continue duloxetine
Lantus adjusted to 25 units, Aspart adjusted to 8 units at breakfast, lunch and dinner.
05/07: Lantus held in setting of low sugar, D5 w/ HCO3 given
-AMBER on CKD IIIa: Stable/monitoring
Continue to monitoring creatinine, has been hovering around 1.4/1.5
Urine studies show pre-renal cause, likely from hypovolemic state
Continued elevated creatinine level at 1.6 on 04/04/2025
Continue monitoring BMP.
Torsemide resumed
IV fluid support
Cr spike to 4 on 05/06; patient admitted to forgetting to straight cath himself
Nursing orders for q6h straight cath
Creatinines improving
-GERD: Stable/monitoring
Continue Pantoprazole
-Chronic inflammatory demyelinating polyneuropathy: Stable/monitoring
Continue current meds, will need to arrange for PLEX in outpatient setting once discharged
FULL CODE
GI PPx: Pantoprazole
DVT Prophylaxis: SCDs

Imaging:
-Left foot x-ray conducted on 03/21/2025:
Status post amputation at the level of the first through fifth proximal metatarsal bones.
No radiographic evidence for osteomyelitis.
- Bilateral lower extremity arterial ultrasound exam conducted on 03/23/2025:
1. Ankle-brachial indices and toe brachial indices could not be measured due to prior amputations.
2. No focal significant arterial stenosis demonstrated on the left side on duplex imaging. Spectral Doppler waveform analysis is suggestive of disease within the distal SFA/popliteal artery. Infrapopliteal disease may also be present.
3. Multiple lymph nodes are seen within the left thigh, which may be reactive.
-Peripheral vascular ultrasound of the left lower extremity conducted on 03/31/2025:
No evidence of DVT of the left lower extremity.

Procedures:
03/03/2025-initial amputation of left transmetatarsal
03/25/2025-debridement of infected left metatarsal amputation
04/04/2025-revision debridement of left heel wound with calcaneal biopsy.Anticipated Discharge: Within 24 hours
Anticipated Discharge: > 48 hours
Subjective/Interval History
-
Date of Service: May 06, 2025
Patient endorses continued knee pain. Feeling a little off, but otherwise does not endorse any acute complaints.
Patient was febrile overnight, Tmax 102.7.
Status post right knee aspiration.
Objective Data
-
Labs:
Laboratory Results
05/06/25 05/06/25
07:28 13:21
WBC 12.1 H Pending
Hgb 6.6 L* Pending
Hct 20.7 L* Pending
Plt Count 450 H Pending
Sodium 125 L Pending
Potassium 4.8 Pending
Chloride 103 Pending
Carbon Dioxide 16 L Pending
BUN 63 H Pending
Creatinine 3.3 H Pending
Glucose 85 Pending
Calcium 8.1 L Pending
Vital Signs:
Vital Signs
Temp Pulse Resp BP Pulse Ox
100.8 F H 98 16 134/80 94
05/06/25 14:42 05/06/25 14:42 05/06/25 14:42 05/06/25 14:42 05/06/25 14:42
I&O
05/05/25 05/06/25 05/07/25
06:59 06:59 06:59
Intake Total 680 / 680 730 / 730 2430 / 2430
Output Total 675 / 675 1550 / 1550
Balance 680 / 680 55 / 55 880 / 880
Review of Systems
-
History Source: Patient
All other systems: Reviewed and negative
Constitutional: Reports Fever and Fatigue
Musculoskeletal: Reports Joint Pain (R knee)
Physical Exam
-
General: No Apparent Distress and Other
HEENT: Normocephalic, Atraumatic and Moist Mucous Membranes
Respiratory: Clear to Auscultation and Non Labored Respirations; Negative Wheezes, Rales, Rhonchi or Crackles
Cardiac: Regular Rhythm and S1/S2
GI: Soft
Musculoskeletal: Other (R BKA, no changes on exam, L BKA trino intact)
Skin: Warm
Neuro: Awake and Alert
Psych: Calm and Other (Slightly drowsy but arousable and appropriately answering questions)
Data Reviewed
-
Diagnostic Radiology: Report Reviewed by me
CT Scan: Report Reviewed by me
Labs: Labs Reviewed by me and Discussed with Patient
[2025-05-06 15:51] LABS: Glucose - Point of Care 99 mg/dl (70-99)
--- NOTE | 2025-05-06 15:59 | W.PN.UPDATE ---
Update Note
Progress Note Update
Patient in washout with orthopedics at the time of rounds
Discussed the two cell counts with the hematology lab, they report both values were double checked this AM
Laboratory Tests
05/05/25 05/05/25
07:47 16:00
Fluid WBC 9420 96160
Fluid Mononuclear Cell 5 1.7
Fl Polymorphonucl Cell 95 98.3
Fluid Crystals CPPD
# Fever
# Pseudogout, possible septic joint
# Allergies: PCN, cephalosporin, meropenem, Vancomycin; tolerated Avyzaz
- joint fluid no growth at 24-48 hours, taken for washout by orthopedics
- blood cultures x2 are ordered
- ua sent with pyuria, and moderate bacteria urine culture is pending
- avycaz is ordered
- covid and influenza negative
- restart daptomycin/avycaz
- hold atorvastatin
# C difficile
- oral vancomycin 10 day course
# AMBER - management per IM service
- may be obstructive in nature
# Osteomyelitis Left foot TMA site wound dehiscence with necrosis
- Failed multiple revisions
- 04/21/25 s/p left BKA
- s/p daptomycin and ceftaz/avibactam, dc'd on 04/25.
- Wound Care.
# Right BKA stump superficial scab over bony prominence.
- Possible eventual revision of stump
# Incarcerated
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
Diabetes mellitus
CAD status post PCI
CHF
hx CKD3
Hypertension
Guillain-Potts� syndrome/CIDP, plasma exchange q 2 months
PAD status post right BKA
Left hallux and second toe osteomyelitis status post amputation and debridement of left heel ulcer January 21, 2025
Left foot TMA, I+D left heel wound and bone biopsy of heel (neg osteo) Mar 08, 2025 (path surgical cure)
[2025-05-06] MEDS: NEURONTIN PO (17:17)
--- NOTE | 2025-05-06 17:45 | W.IMMPOSTOP ---
Surgical Immed Post Op Note
-
Primary Surgeon: Payton
Boot Liner Maker: Harry Lopes PA-C
Pre-op Diagnosis: Right knee septic arthritis
Post-op Diagnosis: Right knee septic arthritis, possible intramedullary osteomyelitis
Procedure Performed: Right knee I&D, removal of femoral nail
Anesthesia Type: General
Specimen / Cultures: Right knee purulence and proximal femur fluid
Estimated Blood Loss: 20cc
Complications: None
Operative Findings: Dictated [id number]
Plan:
- Abx per infectious disease
- Follow culture results
- Staple removal in 2 weeks
[2025-05-06 17:53] LABS: Glucose - Point of Care 93 mg/dl (70-99)
[2025-05-06] MEDS: CUBICIN 18 MG IV (18:06)
[2025-05-06 18:29] LABS: Blood Urea Nitrogen 56 mg/dl (9-20); Calcium 8.0 mg/dl (8.4-10.2); Carbon Dioxide 18 mmol/L (22-30); Chloride 107 mmol/L (98-107); Estimated Creatinine Clearance 53 ml/min; Glucose 88 mg/dl (70-99); Potassium 4.9 mmol/L (3.5-5.1); Sodium 128 mmol/L (135-145); eGFR 33.20
[2025-05-06 18:37] LABS: Hematocrit 20.9 % (39.0-52.0); Hemoglobin 7.0 g/dL (13.0-18.0); Mean Corp Hgb Conc. 33.5 g/dL (33.0-37.0); Mean Corpuscular Volume 86.0 fL (80.0-94.0); Platelet Count 451 10^3/uL (130-400); Red Cell Dist. Width 15.3 % (11.5-14.5)
--- NOTE | 2025-05-06 19:20 | PTCARENOTE ---
Pt arrived to floor from PACU. Drowsy but arousable. VSS. 98% on 4L NC. R LE with andriy wrap and tape with a small aquacel to R hip intact and without drainage. IVF infusing as ordered. NSR on the monitor. 2 guards at bedside. Pt sleeping
intermittently.
[2025-05-06] MEDS: HEPARIN 5000 UNITS SC (19:53)
[2025-05-06] MEDS: SENOKOT PO (20:11)
[2025-05-06] MEDS: COLACE PO (20:11)
[2025-05-06 21:05] LABS: Glucose - Point of Care 149 mg/dl (70-99)
[2025-05-06] MEDS: LANTUS 0.26 UNITS SC (22:53)
[2025-05-06] MEDS: REMERON 30 MG PO (22:53)
[2025-05-07] VITALS (9 sets, daily range): BP systolic 142–166; BP diastolic 79–95; BMI 32.6
[2025-05-07] MEDS: FIRVANQ 125 MG PO ×4 (01:50→19:32)
[2025-05-07 07:58] LABS: Glucose - Point of Care 284 mg/dl (70-99)
[2025-05-07 09:18] LABS: Hematocrit 22.5 % (39.0-52.0); Hemoglobin 7.0 g/dL (13.0-18.0); Mean Corp Hgb Conc. 31.1 g/dL (33.0-37.0); Mean Corpuscular Volume 90.4 fL (80.0-94.0); Platelet Count 496 10^3/uL (130-400); Red Cell Dist. Width 15.6 % (11.5-14.5)
--- NOTE | 2025-05-07 09:18 | W.PN.UPDATE ---
Update Note
Progress Note Update
29 year old male POD #1 from right knee I&D and removal of intramedullary nail.
-Post op dressings in place. Did not remove.
-Diffuse tenderness to palpation. Some swelling appreciated through andriy wraps.
-Reports pain is similar to what it was yesterday.
-Gram stain and cultures from intra op fluid pending.
-Continue with IV abx per ID.
-Will continue to follow.
[2025-05-07] MEDS: LANTUS 0.26 UNITS SC ×2 (09:56→22:04)
[2025-05-07] MEDS: NEURONTIN 300 MG PO ×3 (09:57→21:17)
[2025-05-07] MEDS: RANEXA EXTENDED RELEASE 1000 MG PO ×2 (09:57→21:11)
[2025-05-07] MEDS: SENOKOT 17.2 MG PO (09:58)
[2025-05-07] MEDS: COLACE 100 MG PO (09:59)
[2025-05-07] MEDS: ASPIR LOW (ENTERIC COATED) 81 MG PO (09:59)
[2025-05-07] MEDS: FLORASTOR 250 MG PO ×2 (10:00→21:17)
[2025-05-07] MEDS: PROTONIX 40 MG PO (10:00)
[2025-05-07] MEDS: HEPARIN 5000 UNITS SC ×2 (10:08→21:11)
[2025-05-07] MEDS: CYMBALTA DELAYED RELEASE 30 MG PO (10:08)
[2025-05-07] MEDS: FEOSOL 325 MG PO ×2 (10:09→21:12)
[2025-05-07] MEDS: NOVOLOG FLEXPEN-LOW RESISTANCE 3 UNITS SC (10:11)
[2025-05-07] MEDS: NOVOLOG FLEXPEN 10 UNITS SC ×2 (10:13→12:59)
[2025-05-07 10:33] LABS: Blood Urea Nitrogen 50 mg/dl (9-20); Calcium 8.4 mg/dl (8.4-10.2); Carbon Dioxide 21 mmol/L (22-30); Chloride 112 mmol/L (98-107); Estimated Creatinine Clearance 82 ml/min; Glucose 285 mg/dl (70-99); Potassium 5.2 mmol/L (3.5-5.1); Sodium 137 mmol/L (135-145); eGFR 55.27
--- NOTE | 2025-05-07 11:29 | W.PN.NEPH.PH ---
Today's Communication / Plan
-
Maintain alkalized IV fluids another day
Maintain Castillo catheter until creatinine hits baseline
Assessment/Plan
-
Assessment
AMBER/hyponatremia/urinary retention requiring straight catheterization= creatinine up to 4.1 from baseline
C. difficile
Left 1st, 2nd and 3rd metatarsal head osteomyelitis/subsequent leg BKA
Left heel wound, osteomyelitis
Diabetes mellitus type 1
Anemia, iron deficiency
Heart failure unknown EF
CIDP
GERD
Bladder outlet obstruction(does SC at home), Castillo catheter
Proteinuria
Plan
New fevers= culture/knee aspirate
Castillo catheter in place nonoliguric
Creatinine improved to 1.7 this is secondary to urinary retention, as noted by profound postobstructive diuresis of 4.7 L
Mild metabolic acidosis secondary to urinary retention on IV fluids with bicarbonate which we will continue 1 more day
AM labs
Torsemide on hold
Sodium corrected to 137
-
-
Date of Service: May 07, 2025
CC / HPI / ROS
-
Chief Complaint:
AMBER with urine
History of Present Illness:
AMBER with urinary retention now with indwelling Castillo catheter improving
Hemodynamically stable
Metabolic acidosis improving with sodium HCO3 IV fluid
Creatinine improved to 1.7
Review of Systems:
Resting comfortably in bed
Nonoliguric
Fevers
Labs
-
Labs:
WBC 8.5 10^3/uL (4.8-10.8) 05/07/25 09:08
RBC 2.49 10^6/uL (4.70-6.10) L 05/07/25 09:08
Hgb 7.0 g/dL (13.0-18.0) L 05/07/25 09:08
Hct 22.5 % (39.0-52.0) L 05/07/25 09:08
Plt Count 496 10^3/uL (130-400) H 05/07/25 09:08
Sodium 137 mmol/L (135-145) D 05/07/25 09:08
Potassium 5.2 mmol/L (3.5-5.1) H 05/07/25 09:08
Chloride 112 mmol/L (98-107) H 05/07/25 09:08
Carbon Dioxide 21 mmol/L (22-30) L 05/07/25 09:08
BUN 50 mg/dl (9-20) H 05/07/25 09:08
Creatinine 1.7 mg/dL (0.7-1.3) H 05/07/25 09:08
eGFR 55.27 05/07/25 09:08
Glucose 285 mg/dl (70-99) H 05/07/25 09:08
Calcium 8.4 mg/dl (8.4-10.2) 05/07/25 09:08
Albumin 3.1 g/dl (3.5-5.0) L 05/05/25 07:12
Physical Exam
-
Vital Signs:
Vital Signs
Temp Pulse Resp BP Pulse Ox
98.8 F 87 16 150/79 96
05/07/25 07:00 05/07/25 07:00 05/07/25 07:00 05/07/25 07:00 05/07/25 07:00
Cardiovascular:: Regular rate and rhythm
Respiratory:: Bilateral: CTA
Lung Excursion:: Normal
Abdomen:: Soft
Bowel Sounds:: Normal
Extremity Edema:: +1: Bilateral: and None: Left: (Left BKA)
Castillo Catheter: Yes
[2025-05-07 11:42] LABS: Glucose - Point of Care 313 mg/dl (70-99)
[2025-05-07] MEDS: SODIUM BICARBONATE IV (12:25)
[2025-05-07] MEDS: NOVOLOG FLEXPEN-LOW RESISTANCE 4 UNITS SC (12:59)
--- NOTE | 2025-05-07 13:15 | W.PN.HOSP.TC ---
Addendum entered and electronically signed by Min Collins MD 05/07/25 14:47:
X ray of abdomen - Noted.
Original Note:
Today's Communication/Plan
-
Discontinued fluids with dextrose
Additional dose of NovoLog
X-ray of the abdomen-no diarrhea with history of C. difficile
Fluids with bicarb
1 more unit of blood
Autoimmune serologies pending
Continue with Castillo catheter now
Await cultures
Increased dose of Imdur and Coreg
Assessment / Plan
Assessment / Plan
29-year-old male recently admitted to [facility] on 03/05/2025 to 03/17/2025 for osteomyelitis of the left foot. He underwent amputation of the first 2 digits of the left foot on 01/21/2025. Return with wound dehiscence and ultimately
required TMA and heel debridement on 03/08/2025. Completed inpatient course of antibiotics on 03/16/2025. Reportedly he 'banged' his foot on the vehicle while leaving the hospital and returned on the same day for evaluation of the wound. Since then
he has had worsening of bleeding and oozing from the left foot with increased pain in the left foot. Previous notes and discharge summaries reviewed, suspecting that the patient was picking on his surgical wounds which led to the bleeding and
possible infection..
Echo 02/15/2025-normal LV size, wall thickness and systolic function. Right ventricular size and systolic function within normal limits. LA is normal. RA is normal.
Right qvcg-BY-KBWA changes of the distal femur noted. Moderate to large suprapatellar joint effusion with scattered foci of gas likely related to recent aspiration. Extensive vascular calcifications.
CT scan of the abdomen and pelvis-severe acute proctitis in the rectum with moderate to severe rectal wall thickening likely from C. difficile. Moderate diffuse colonic distention with air and fecal material. Mild to moderate retroperitoneal
lymphadenopathy. Mild hepatosplenomegaly. Cholelithiasis. Castillo catheter in the urinary bladder. Severe calcific atherosclerotic plaque in the coronary arteries. Mild to moderate diffuse anasarca
Patient is able to communicate
Cardiovascular system S1-S2 appreciated
Chest clear to auscultation
Abdomen soft and nontender, mild distention but no rigidity
Right BKA bandaged after I&D
Left TMA site trino intact
# Acute kidney injury earlier during admission resolved. Again creatinine went up to 4.1 on 05/05/2025
Patient states that he forgot to straight cath himself one day prior to getting AMBER
Patient has been doing straight caths every 6 hours himself.
Placed a Castillo now
Once creatinine improves I will have nursing do straight caths every 6 hours instead of relying on the patient
Abnormal urinalysis
Creatinine is improving 1.7 today
Fluids with bicarb ordered without dextrose
Nephrology evaluation appreciated
# Hyponatremia-possibly secondary to urinary retention, also AMBER
Follow BMP
# New fevers since 05/03/2025
Blood cultures negative so far
Continue treatment for C. difficile
Treating as possible septic arthritis of the right knee
Autoimmune workup also ordered
Antibiotics expanded to Avycaz and daptomycin
Infectious disease following
# Osteomyelitis of the left foot TMA site, wound dehiscence with necrosis
Left hallux and second toe osteomyelitis with amputation and debridement of the left heel ulcer January 21, 2025
Left foot TMA I&D left heel wound and bone biopsy of the heel March 08, 2025-negative pathology for osteomyelitis
Went to the OR on 03/25/2025 for I&D, removal of necrotic bone and amputation site, heel wound debridement and wound VAC-cultures grew VRE and MRSA. Wound pathology showed acute osteomyelitis
Status post revision on 04/04/2025-open TMA revision , removal of nonviable bone and heel wound debridement down to subcutaneous tissue-cultures Enterobacter Cloacae. Pathology clearing fragment chronic osteomyelitis
04/13/2025-Status post left Lisfranc disarticulation, heel wound debridement, plantar flap. Cultures with Enterobacter. Biopsy pending
S/P BKA on 04/21/2026
Wound is stable trino still in
Strict nonweightbearing
IV antibiotics-daptomycin and Avycaz were completed and see that it is restarted now for the other knee
# Right BKA site
Patient had a small ulcer at the stump which needs wound care daily
Needs right BKA revision as outpatient before prosthesis
Right knee suspected septic arthritis
Right suprapatellar effusion-aspirated 05/04/2025 and also 05/05/2025 by orthopedics
First cell count was 9420. Second cell count was 95,200 both polymorphonuclear predominance
Possible septic arthritis according to cell count and operative findings, cultures pending he likely has inflammatory arthritis such as pseudogout
# C. difficile colitis
Initially patient said he was allergic to vancomycin therefore started on Dificid
Later he stated that he is not allergic to p.o. vancomycin therefore p.o. vancomycin was initiated
Bowel movements are not charted
Get x-ray of the abdomen
# Diabetes-hemoglobin B1f-bgn reliable in the setting of anemia
Was on Lantus 30 units twice daily and NovoLog 10 units AC prior to arrival
Currently on 26 units twice daily with 10 units of AC NovoLog and sliding scale.
Patient was on fluids with dextrose discontinued
# Mild hyperkalemia-resolved with Lokelma. Patient was also continuing on daily diuretics which is on hold now.
# Acute blood loss anemia secondary to bleeding from left TMA and heel debridement on top of chronic anemia
No active bleeding at present but patient still is anemic
Candie test positive, but per heme no antibodies and complement negative therefore hemolysis not suspected.
14 units of PRBCs transfused this admission, Order one more today.
Hematology evaluated this admission. Again discussed on 05/05/25, no bone marrow at this point
Aspirin to be continued given CAD
Plavix was discontinued this admission secondary severe anemia. Patient should follow-up with hematology as well as his outpatient icer machine to see if he needs to restart this.
I have added autoimmune workup
# Coronary disease with history of PCI-Continue aspirin ,Statin Coreg, Imdur and Ranexa .
# Thrombocytosis-likely secondary to infection
# History of heart failure unknown type per chart. Normal EF now.
# Hypertension-continue Coreg
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 Continue duloxetine and gabapentin for pain
# Diabetic neuropathy-continue gabapentin and duloxetine
# Hyperlipidemia-continue statin
# Chronic urinary retention/neurogenic bladder-self catheterizes. I have changed self-catheterization protocol to be done by nursing ( Once he gets Castillo out)
# GERD-continue PPI
# Cholelithiasis
# Anxiety and depression-on Remeron, duloxetine
# Hypoalbuminemia
# DVT prophylaxis-Lovenox changed to JATIN
# Full code
Patient is sick at this point
D/W RN
D/W Nephrology
Time over 50 min
Part of this note was created using voice recognition system. Occasional wrong word or��sound alike� substitutions may have inadvertently occurred due to the inherent limitations of voice recognition software. If noted kindly bring it to my
attention for correction.
Anticipated Discharge: > 48 hours
Subjective/Interval History
-
Date of Service: May 07, 2025
Objective Data
-
Labs:
Laboratory Results
05/07/25
09:08
WBC 8.5
Hgb 7.0 L
Hct 22.5 L
Plt Count 496 H
Sodium 137 D
Potassium 5.2 H
Chloride 112 H
Carbon Dioxide 21 L
BUN 50 H
Creatinine 1.7 H
Glucose 285 H
Calcium 8.4
Vital Signs:
Vital Signs
Temp Pulse Resp BP Pulse Ox
97.4 F 84 16 156/91 94
05/07/25 11:00 05/07/25 11:00 05/07/25 11:00 05/07/25 11:00 05/07/25 11:00
I&O
05/06/25 05/07/25 05/08/25
06:59 06:59 06:59
Intake Total 730 / 730 2750 / 2750
Output Total 675 / 675 5275 / 5275 1250 / 1250
Balance 55 / 55 -2525 / -2525 -1250 / -1250
[2025-05-07] MEDS: NOVOLOG FLEXPEN 6 UNITS SC (14:00)
[2025-05-07] MEDS: SODIUM BICARBONATE 1075 MEQ IV (14:48)
[2025-05-07] MEDS: DILAUDID 0.5 MG IV (14:54)
[2025-05-07] MEDS: CUBICIN 18 MG IV (16:38)
[2025-05-07 16:44] LABS: Glucose - Point of Care 172 mg/dl (70-99)
--- NOTE | 2025-05-07 17:03 | W.PN.ID1 ---
Date of Service
Date of Service: May 07, 2025
Today's Communication
right knee with findings of purulence in the OR
continue daptomycin and avycaz
Assessment / Plan
# Right Knee Septic Arthritis with infected femoral nail
# Fever - resolved
# Leukocytosis
# AMBER - improving
- leukocytosis and fevers have resolved
- purulent material was encountered within the knee in the OR and sent for culture
- arthrocentesis fluid no growth at 48 hours
- OR cultures x2 in progress, no growth to date
- continue daptomycin and avycaz day 2 - dose adjusted for improving renal function
# C difficile
- vancomycin is not absorbed systemically, agree with oral vancomycin even with reported allergy; 10 day course is sufficient
# Osteomyelitis Left foot TMA site wound dehiscence with necrosis
- Failed multiple revisions
- 04/21/25 s/p left BKA
- s/p daptomycin and ceftaz/avibactam, dc'd on 04/25.
- Wound Care.
# Right BKA stump superficial scab over bony prominence.
- Possible eventual revision of stump
# Allergies: PCN, cephalosporin, meropenem, Vancomycin; tolerated Avyzaz
# Incarcerated
Conditions [employer]
Diabetes mellitus
CAD status post PCI
CHF
hx CKD3
Hypertension
Guillain-Potts� syndrome/CIDP, plasma exchange q 2 months
PAD status post right BKA
Left hallux and second toe osteomyelitis status post amputation and debridement of left heel ulcer January 21, 2025
Left foot TMA, I+D left heel wound and bone biopsy of heel (neg osteo) Mar 08, 2025 (path surgical cure)
Chief Complaint
-: Other (Foot wound)
Subjective / Review of Systems
purulent material encountered after incision made on the lateral side
afebrile
bp stable
no complaints
Vital Signs / Physical Exam
Vital Signs
Vital Signs
Temp Pulse Resp BP Pulse Ox
97.3 F 85 16 160/95 95
05/07/25 16:47 05/07/25 16:47 05/07/25 16:47 05/07/25 16:47 05/07/25 16:21
Objective Data
Lab Data
Lab Results
05/07/25 09:08
05/07/25 09:08
ESR Cancelled 04/17/25 10:48
PT 13.7 Sec (11.4-14.6) 04/17/25 06:33
INR 1.02 04/17/25 06:33
APTT 33.8 Sec (23.4-35.0) 04/17/25 06:33
Estimated Creat Clear 82 ml/min 05/07/25 09:08
Lactic Acid 0.8 mmol/L (0.7-2.0) 03/25/25 01:16
Total Bilirubin 0.4 mg/dl (0.2-1.3) 05/05/25 07:12
AST 13 U/L (17-59) L 05/05/25 07:12
ALT 15 U/L (0-50) 05/05/25 07:12
Alkaline Phosphatase 141 U/L (38-126) H 05/05/25 07:12
C-Reactive Protein > 270.00 mg/L (0.0-10.00) H 05/06/25 07:28
Most recent labs reviewed.
Micro Results:
05/06/25 17:47 Wound Culture - Preliminary
Femur - Right No growth
Gram Stain - Preliminary
05/06/25 16:08 Wound Culture - Preliminary
Knee - Right No growth
Gram Stain - Preliminary
05/06/25 17:47 Anaerobic Culture - Preliminary
Femur - Right Culture pending. Anaerobic cultures are examined after 3
days incubation. Additional information to follow.
05/06/25 16:08 Anaerobic Culture - Preliminary
Knee - Right Culture pending. Anaerobic cultures are examined after 3
days incubation. Additional information to follow.
05/05/25 16:00 Body Fluid Culture - Preliminary
Knee - Right No Growth After 48 Hours
Gram Stain - Preliminary
05/05/25 10:02 Blood Culture - Preliminary
Blood/Venous No Growth in 48 hours- Final report to follow
05/05/25 09:08 Blood Culture - Preliminary
Blood/Venous No Growth in 48 hours- Final report to follow
05/05/25 10:10 Urine Culture - Final
Urine Anna albicans
05/05/25 07:48 Anaerobic Culture - Preliminary
Joint Fluid Culture pending. Anaerobic cultures are examined after 3
days incubation. Additional information to follow.
05/05/25 10:49 Influenza Types A & B (JOSE) - Final
Nasal Swab Negative for Influenza A & B, NAAT
Negative results must be combined with clinical observations
and patient history.
Nucleic Acid Amplification test (NAAT)performed on the
[employer] platform.
05/02/25 11:42 C. difficile GDH Antigen & Toxins - Final
Feces/Stool Toxigenic C.difficile Positive
04/27/25 09:32 Blood Culture - Final
Blood/Venous No Growth - Final Report
04/27/25 08:33 Blood Culture - Final
Blood/Venous No Growth - Final Report
04/27/25 10:24 Urine Culture - Final
Urine NO GROWTH
03/25/25 16:52 Fungal Culture - Final
Foot - Left Anna albicans
04/13/25 16:07 Wound Culture - Final
Foot - Left Enterobacter cloacae
Gram Stain - Final
04/13/25 16:07 Anaerobic Culture - Final
Foot - Left NO ANAEROBES ISOLATED
04/04/25 16:30 Wound Culture - Final
Foot - Left Enterobacter cloacae
Gram Stain - Final
04/04/25 16:30 Anaerobic Culture - Final
Foot - Left NO ANAEROBES ISOLATED
03/31/25 10:51 Blood Culture - Final
Blood/Venous No Growth - Final Report
03/31/25 10:22 Blood Culture - Final
Blood/Venous No Growth - Final Report
03/25/25 09:33 Blood Culture - Final
Blood/Venous No Growth - Final Report
03/25/25 16:56 Wound Culture - Final
Foot - Left Staph aureus MRSA
Enterococcus faecalis - VRE
Gram Stain - Final
03/25/25 16:56 Anaerobic Culture - Final
Foot - Left NO ANAEROBES ISOLATED
03/25/25 16:52 Wound Culture - Final
Foot - Left Staph aureus MRSA
Enterococcus faecalis - VRE
Gram Stain - Final
03/25/25 16:52 Anaerobic Culture - Final
Foot - Left NO ANAEROBES ISOLATED
03/25/25 01:16 Blood Culture - Final
Blood/Venous No Growth - Final Report
03/27/25 10:35 Urine Culture - Final
Urine Anna albicans
03/24/25 12:51 Salmonella/Shigella Culture - Final
Feces/Stool No Salmonella, Shigella, Aeromonas or Plesiomonas species
isolated.
Campylobacter Culture - Final
No Campylobacter species isolated.
Shiga Toxin Test - Final
No E. coli Shiga Toxin 1 or 2 detected.
03/21/25 21:00 Blood Culture - Final
Blood/Venous No Growth - Final Report
03/21/25 21:00 Blood Culture - Final
Blood/Venous No Growth - Final Report
03/21/25 21:16 Wound Culture - Final
Foot - Left Enterococcus faecalis - VRE
Anna albicans
Gram Stain - Final
03/24/25 12:53 C. difficile GDH Antigen & Toxins - Final
Feces/Stool C. difficile antigen positive, toxin negative.
Clostridium difficile present, but toxin not detected.
Patient may be a carrier, colonized with nontoxinogenic
strain or the level of toxin in sample is below detection
limits. This information should be used in conjunction with
the patient's clinical history.
03/22/25 13:07 MRSA Screen - Final
Nose No Methicillin Resistant Staphylococcus aureus isolated.
[2025-05-07] MEDS: NOVOLOG FLEXPEN-LOW RESISTANCE SC (18:18)
[2025-05-07] MEDS: NOVOLOG FLEXPEN SC (18:18)
--- NOTE | 2025-05-07 18:18 | PTCARENOTE ---
Patient is refusing to eat dinner and did not eat lunch despite being provided one. Dinner was placed at bedside, after consulting with Dr. Collins, decision was made to hold dinnertime Novolog dose. Patient is resting comfortably in bed with call
morales in reach and bed in lowest position.
[2025-05-07] MEDS: NSS IV ×2 (19:50)
[2025-05-07] MEDS: COREG 25 MG PO (21:11)
[2025-05-07] MEDS: SENOKOT PO (21:12)
[2025-05-07] MEDS: COLACE PO (21:12)
[2025-05-07] MEDS: REMERON 30 MG PO (21:17)
[2025-05-07 21:18] LABS: Glucose - Point of Care 208 mg/dl (70-99)
[2025-05-08] MEDS: FIRVANQ 125 MG PO ×4 (00:17→17:06)
[2025-05-08 03:35] VITALS: BP 158/87
[2025-05-08 06:00] VITALS: BMI 31.9
[2025-05-08] MEDS: MORPHINE SULFATE 15 MG PO (06:18)
[2025-05-08 07:33] LABS: Hematocrit 23.1 % (39.0-52.0); Hemoglobin 7.6 g/dL (13.0-18.0); Mean Corp Hgb Conc. 32.9 g/dL (33.0-37.0); Mean Corpuscular Volume 84.6 fL (80.0-94.0); Platelet Count 592 10^3/uL (130-400); Red Cell Dist. Width 15.8 % (11.5-14.5)
[2025-05-08 08:00] VITALS: BP 163/93
[2025-05-08 08:07] LABS: Glucose - Point of Care 162 mg/dl (70-99)
[2025-05-08] MEDS: LANTUS 0.26 UNITS SC (10:05)
[2025-05-08] MEDS: FLORASTOR 250 MG PO ×2 (10:06→20:09)
[2025-05-08] MEDS: IMDUR (EXTENDED RELEASE) 60 MG PO (10:06)
[2025-05-08] MEDS: ASPIR LOW (ENTERIC COATED) 81 MG PO (10:07)
[2025-05-08] MEDS: FEOSOL 325 MG PO ×2 (10:07→20:03)
[2025-05-08] MEDS: NEURONTIN 300 MG PO ×3 (10:08→22:49)
[2025-05-08] MEDS: PROTONIX 40 MG PO (10:08)
[2025-05-08] MEDS: COREG 25 MG PO ×2 (10:08→20:05)
[2025-05-08] MEDS: DESENEX/MITRAZOL/ZEASORB 1 APPLIC TOPICAL ×2 (10:13→20:03)
[2025-05-08] MEDS: CYMBALTA DELAYED RELEASE 30 MG PO (10:13)
[2025-05-08] MEDS: COLACE PO (10:13)
[2025-05-08] MEDS: HEPARIN 5000 UNITS SC ×2 (10:14→20:04)
[2025-05-08] MEDS: RANEXA EXTENDED RELEASE 1000 MG PO ×2 (10:14→20:03)
[2025-05-08] MEDS: NOVOLOG FLEXPEN-LOW RESISTANCE SC ×3 (10:15→18:11)
[2025-05-08] MEDS: SENOKOT PO (10:15)
[2025-05-08] MEDS: NOVOLOG FLEXPEN SC ×3 (10:15→18:11)
[2025-05-08 11:00] VITALS: BP 163/90
--- NOTE | 2025-05-08 11:12 | W.PN.UPDATE ---
Update Note
Progress Note Update
29 year old male POD #2 from right knee I&D and removal of intramedullary nail.
-Post op dressings in place. Was able to look at incisions, which are c/d/i. No drainage or erythema. Diffuse TTP. motion of knee with discomfort. Moderate swelling.
-Reports pain is similar to what it was yesterday. No relief with morphine.
-Gram stain and cultures from intra op fluid with no growth to date, gram stain with no organisms seen.
-Continue with IV abx per ID pending cultures.
-Will continue to follow cultures.
[2025-05-08 11:46] LABS: Blood Urea Nitrogen 35 mg/dl (9-20); Calcium 8.5 mg/dl (8.4-10.2); Carbon Dioxide 26 mmol/L (22-30); Chloride 113 mmol/L (98-107); Estimated Creatinine Clearance 115 ml/min; Glucose 124 mg/dl (70-99); Magnesium 2.4 mg/dl (1.6-2.3); Potassium 4.5 mmol/L (3.5-5.1); Sodium 144 mmol/L (135-145); eGFR > 60.00
[2025-05-08 12:16] LABS: Glucose - Point of Care 136 mg/dl (70-99)
[2025-05-08] MEDS: DILAUDID 0.5 MG IV ×2 (13:41→17:07)
[2025-05-08] MEDS: SODIUM BICARBONATE IV (13:43)
--- NOTE | 2025-05-08 13:43 | W.PN.HOSP.TC ---
Today's Communication/Plan
-
pain control
PO vancomycin
abx as per ID
glycemic control
reduced Insulin d/t poor po intake.
Assessment / Plan
Assessment / Plan
Physical Exam
General: no acute distress, appears relatively comfortable at rest but reporting significant RLE pain at site of amputation.
Cardiovascular system: S1-S2 appreciated, no murmurs rubs or gallops
Chest: clear to auscultation b/l
Abdomen: soft and nontender, mild distention but no rigidity
Ext: s/p b/l BKA dressings clean dry intact
Neuro: alert conversant coherent
Psych: calm
29-year-old male recently admitted to [facility] 03/05/2025 to 03/17/2025 for osteomyelitis of the left foot. He underwent amputation of the first 2 digits of the left foot on 01/21/2025. Return with wound dehiscence and ultimately required TMA and
heel debridement on 03/08/2025. Completed inpatient course of antibiotics on 03/16/2025. Reportedly he 'banged' his foot on the vehicle while leaving the hospital and returned on the same day for evaluation of the wound. Since then he has had
worsening of bleeding and oozing from the left foot with increased pain in the left foot. Previous notes and discharge summaries reviewed, suspected patient was picking on his surgical wounds which led to the bleeding and possible infection.
Echo 02/15/2025-normal LV size, wall thickness and systolic function. Right ventricular size and systolic function within normal limits. LA is normal. RA is normal.
Right [id number] changes of the distal femur noted. Moderate to large suprapatellar joint effusion with scattered foci of gas likely related to recent aspiration. Extensive vascular calcifications.
CT scan of the abdomen and pelvis-severe acute proctitis in the rectum with moderate to severe rectal wall thickening likely from C. difficile. Moderate diffuse colonic distention with air and fecal material. Mild to moderate retroperitoneal
lymphadenopathy. Mild hepatosplenomegaly. Cholelithiasis. Castillo catheter in the urinary bladder. Severe calcific atherosclerotic plaque in the coronary arteries. Mild to moderate diffuse anasarca
# Acute kidney injury earlier during admission resolved. Again creatinine went up to 4.1 on 05/05/2025
Patient states that he forgot to straight cath himself one day prior to getting AMBER
Patient has been doing straight caths every 6 hours himself.
Castillo placed, cont at this time
Cr since improved
Nephrology evaluation appreciated IVF completed
cont hold Torsemide as per Nephro
# Hyponatremia-possibly secondary to urinary retention, also AMBER
Since resolved
# New fevers since 05/03/2025
Blood cultures negative so far
Continue treatment for C. difficile
Treating as possible septic arthritis of the right knee
Autoimmune workup also ordered
ID eval appreciated cont Avycaz and daptomycin
# Osteomyelitis of the left foot TMA site, wound dehiscence with necrosis
Left hallux and second toe osteomyelitis with amputation and debridement of the left heel ulcer January 21, 2025
Left foot TMA I&D left heel wound and bone biopsy of the heel March 08, 2025-negative pathology for osteomyelitis
Went to the OR on 03/25/2025 for I&D, removal of necrotic bone and amputation site, heel wound debridement and wound VAC-cultures grew VRE and MRSA. Wound pathology showed acute osteomyelitis
Status post revision on 04/04/2025-open TMA revision , removal of nonviable bone and heel wound debridement down to subcutaneous tissue-cultures Enterobacter Cloacae. Pathology clearing fragment chronic osteomyelitis
04/13/2025-Status post left Lisfranc disarticulation, heel wound debridement, plantar flap. Cultures with Enterobacter.
S/P BKA on 04/21/2026
Wound is stable trino still in
Strict nonweightbearing
IV antibiotics-daptomycin and Avycaz were completed then restarted for the other knee as above
# Right BKA site
Patient had a small ulcer at the stump which needs wound care daily
Needs right BKA revision as outpatient before prosthesis
Right knee suspected septic arthritis
Right suprapatellar effusion-aspirated 05/04/2025 and also 05/05/2025 by orthopedics
05/06/25 infected femoral nail removed by orthopedics
First cell count was 9420. Second cell count was 95,200 both polymorphonuclear predominance
Possible septic arthritis according to cell count and operative findings, cultures NGTD
Pain control, cont prn PO morphine mod severe pain, Dilaudid prn severe breakthrough pain
# C. difficile colitis
cont PO vancomycin
abd x-ray 05/07 appreciated no obstruction
# Diabetes-hemoglobin [id number] reliable with recent hx multiple blood transfusions
Was on 26 units Lantus twice daily with 10 units of AC NovoLog and sliding scale.
05/08 patient refusing to eat (citing poor appetite), premeal and sliding scale insulin held, Lantus dose cut in half 13U BID, resume full dose when oral intake improves
# Mild hyperkalemia-resolved with Lokelma. Patient was also on daily diuretics Torsemide which is on hold for now.
# Acute blood loss anemia secondary to bleeding from left TMA and heel debridement on top of chronic anemia
No active bleeding at present but patient still is anemic
Candie test positive, but per heme no antibodies and complement negative therefore hemolysis not suspected.
15 units of PRBCs transfused this admission, most recent transfusion 05/07/25.
Hematology evaluated this admission. Again discussed on 05/05/25, no bone marrow at this point
Aspirin to be continued given CAD
Plavix was discontinued this admission secondary severe anemia. 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
Follow autoimmune workup
# Coronary disease with history of PCI-Continue aspirin ,Statin Coreg, Imdur and Ranexa .
# Thrombocytosis-likely secondary to infection
# History of heart failure unknown type per chart. Normal EF now.
# Hypertension-continue Coreg
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 Continue duloxetine and gabapentin for pain
# Diabetic neuropathy-continue gabapentin and duloxetine
# Hyperlipidemia-continue statin
# Chronic urinary retention/neurogenic bladder-self catheterizes. Castillo as above
# GERD-continue PPI
# Cholelithiasis
# Anxiety and depression-on Remeron, duloxetine
# Hypoalbuminemia
# DVT prophylaxis- Heparin
# Full code
I spent a total of 45 minutes with the patient or on the floor. More than 50% of this time involved counseling and coordination of care.
Anticipated Discharge: > 48 hours
Subjective/Interval History
-
Date of Service: May 08, 2025
Endorses RLE pain at site of amputation. Poor appetite, refusing meals. Denies abd pain tenderness.
Objective Data
-
Labs:
Laboratory Results
05/08/25 05/08/25
07:07 10:50
WBC 11.5 H
Hgb 7.6 L
Hct 23.1 L
Plt Count 592 H
Sodium Cancelled 144
Potassium Cancelled 4.5
Chloride Cancelled 113 H
Carbon Dioxide Cancelled 26
BUN Cancelled 35 H
Creatinine Cancelled 1.2
Glucose Cancelled 124 H
Calcium Cancelled 8.5
Vital Signs:
Vital Signs
Temp Pulse Resp BP Pulse Ox
97.9 F 93 18 163/90 94
05/08/25 11:00 05/08/25 11:00 05/08/25 11:00 05/08/25 11:00 05/08/25 11:00
I&O
05/07/25 05/08/25 05/09/25
06:59 06:59 06:59
Intake Total 2750 / 2750 500 / 500
Output Total 5275 / 5275 1250 / 1250 600 / 600
Balance -2525 / -2525 -750 / -750 -600 / -600
--- NOTE | 2025-05-08 14:14 | W.PN.NEPH.PH ---
Today's Communication / Plan
-
DC IV fluid
Hold torsemide until weights start to rise and hypernatremia resolved
Maintain Castillo catheter
Encourage p.o. fluid intake for now
We will sign
Assessment/Plan
-
Assessment
AMBER/hyponatremia/urinary retention requiring straight catheterization= creatinine up to 4.1 from baseline
C. difficile
Left 1st, 2nd and 3rd metatarsal head osteomyelitis/subsequent leg BKA
Left heel wound, osteomyelitis
Diabetes mellitus type 1
Anemia, iron deficiency
Heart failure unknown EF
CIDP
GERD
Bladder outlet obstruction(does SC at home), Castillo catheter
Proteinuria
Plan
New fevers= culture/knee aspirate
Castillo catheter in place nonoliguric
Maintain Castillo catheter as patient has been noncompliant with straight cath
Acute kidney injury resolved with creatinine down to 1.2
I would withhold torsemide until his serum sodium levels normalize and or his weight started to increase
Urine output down to 600 cc following postobstructive diuresis
DC further IV fluids
We will sign off
-
-
Date of Service: May 08, 2025
CC / HPI / ROS
-
Chief Complaint:
AMBER with urine
History of Present Illness:
AMBER with urinary retention now with indwelling Castillo catheter improving
Hemodynamically stable
Metabolic acidosis resolved with sodium HCO3 IV fluid
Creatinine improved to 1.2
Review of Systems:
Resting comfortably in bed
Nonoliguric via catheter
Labs
-
Labs:
WBC 11.5 10^3/uL (4.8-10.8) H 05/08/25 07:07
RBC 2.73 10^6/uL (4.70-6.10) L 05/08/25 07:07
Hgb 7.6 g/dL (13.0-18.0) L 05/08/25 07:07
Hct 23.1 % (39.0-52.0) L 05/08/25 07:07
Plt Count 592 10^3/uL (130-400) H 05/08/25 07:07
Sodium 144 mmol/L (135-145) 05/08/25 10:50
Potassium 4.5 mmol/L (3.5-5.1) 05/08/25 10:50
Chloride 113 mmol/L (98-107) H 05/08/25 10:50
Carbon Dioxide 26 mmol/L (22-30) 05/08/25 10:50
BUN 35 mg/dl (9-20) H 05/08/25 10:50
Creatinine 1.2 mg/dL (0.7-1.3) 05/08/25 10:50
eGFR > 60.00 05/08/25 10:50
Glucose 124 mg/dl (70-99) H 05/08/25 10:50
Calcium 8.5 mg/dl (8.4-10.2) 05/08/25 10:50
Albumin 3.1 g/dl (3.5-5.0) L 05/05/25 07:12
Physical Exam
-
Vital Signs:
Vital Signs
Temp Pulse Resp BP Pulse Ox
97.9 F 93 18 163/90 94
05/08/25 11:00 05/08/25 11:00 05/08/25 11:00 05/08/25 11:00 05/08/25 11:00
Cardiovascular:: Regular rate and rhythm
Respiratory:: Bilateral: CTA
Lung Excursion:: Normal
Abdomen:: Soft
Bowel Sounds:: Normal
Extremity Edema:: +1: Bilateral: and None: Left: (Left BKA)
Castillo Catheter: Yes
[2025-05-08 15:00] VITALS: BP 149/84
[2025-05-08 16:59] LABS: Glucose - Point of Care 94 mg/dl (70-99)
[2025-05-08] MEDS: CUBICIN 18 MG IV (18:07)
[2025-05-08 19:29] VITALS: BP 155/76
[2025-05-08] MEDS: COLACE 100 MG PO (20:02)
[2025-05-08] MEDS: SENOKOT 17.2 MG PO (20:02)
[2025-05-08] MEDS: TYLENOL 650 MG PO (20:14)
[2025-05-08 21:23] LABS: Glucose - Point of Care 161 mg/dl (70-99)
[2025-05-08] MEDS: REMERON 30 MG PO (22:49)
[2025-05-08] MEDS: LANTUS 0.13 UNITS SC (22:50)
[2025-05-08 23:01] VITALS: BP 156/84
[2025-05-09] MEDS: FIRVANQ 125 MG PO ×5 (00:38→23:09)
[2025-05-09] MEDS: DILAUDID 0.5 MG IV ×3 (00:39→16:57)
[2025-05-09 03:35] VITALS: BP 158/83
[2025-05-09 06:00] VITALS: BMI 31.9
[2025-05-09 07:23] LABS: Hematocrit 23.1 % (39.0-52.0); Hemoglobin 7.5 g/dL (13.0-18.0); Mean Corp Hgb Conc. 32.5 g/dL (33.0-37.0); Mean Corpuscular Volume 88.2 fL (80.0-94.0); Platelet Count 607 10^3/uL (130-400); Red Cell Dist. Width 15.9 % (11.5-14.5)
--- NOTE | 2025-05-09 07:29 | PN.DE.MGMTRT ---
Insulin Management
- -
05/09/2025: Diabetes Management Follow up
Patient admitted from [facility] 03/21 with c/o bleeding L heel wound. PMH type 1 diabetes, R BKA, L toe amputation, recent debridement L heel, Guillian Lindrith, CHF, HTN, CKD, NH, recent admission 01/21 and 03/05 s/p
transmetatarsal L amputation and debridement. Prior to admission was receiving Lantus 30 units BID with Humalog insulin ss AC. A1C on admission 6.9%, (improved from 8.1%).
Prior to incarceration was living in a longterm per patient he will return there.
Patient awake, alert, oriented, sitting up in bed, c/o feeling sluggish and tired, able to discuss diabetes care plan.
Hgb 7.5. +C-Diff, Right knee septic arthritis with infected femoral nail. AMBER resolved Cr went up to 4.1 on 05/05/2025, now Cr 0.9, eGFR > 60 today.
POD #3 s/p right knee I&D and removal of intramedullary nail. POD# 15 s/p Left BKA.
05/05 Lantus dose was increased to 26 units BID and AC NovoLog to 10 units, glucose improved to range of 92 to 136
05/08 patient refusing to eat (citing poor appetite), premeal insulin was held and Lantus dose reduced to 13 units BID.
Hs glucose was 161, pt received Lantus 13 units. Noted for hypoglycemia of 44 venous this AM, POC 109 after treatment.
Pt states he has no appetite, he only ate ~20% of his breakfast today. AM Lantus and mealtime NovoLog dose have been HELD
Will reassess at lunch time and resume AC NovoLog if he is going to eat. Will plan to give Lantus at noon.
Discussed with nurse, instructed to HOLD AC insulin if patient doesn't eat.
Will cont to follow and adjust insulin dose if necessary.
Diabetes History
- -
Type of Diabetes: 1
Pre-Admission Diabetes Regimen
05/08/25 05/08/25
07:07 10:50
Creatinine Cancelled 1.2
Lab Results
Hemoglobin A1c 6.9 % (4.0-5.6) H 03/22/25 06:24
Insulin Pump Settings
IP Diabetes Regimen
05/08/25 05/08/25 05/08/25
07:07 08:06 10:50
Glucose Cancelled 124 H
POC Glucose 162 H
05/08/25 05/08/25 05/08/25
12:14 16:58 21:22
Glucose
POC Glucose 136 H 94 161 H
Patient Education
[2025-05-09 07:55] LABS: Blood Urea Nitrogen 23 mg/dl (9-20); Calcium 8.2 mg/dl (8.4-10.2); Carbon Dioxide 29 mmol/L (22-30); Chloride 108 mmol/L (98-107); Estimated Creatinine Clearance > 125 ml/min; Glucose 44 mg/dl (70-99); Magnesium 2.1 mg/dl (1.6-2.3); Potassium 4.3 mmol/L (3.5-5.1); Sodium 138 mmol/L (135-145); eGFR > 60.00
[2025-05-09] MEDS: DEXTROSE 50% SYRINGE 12.5 GRAMS IV (07:58)
[2025-05-09 08:02] VITALS: BP 146/66
[2025-05-09 08:23] LABS: Glucose - Point of Care 109 mg/dl (70-99)
--- NOTE | 2025-05-09 08:42 | W.PN.UPDATE ---
Update Note
Progress Note Update
Patient is POD #3 from right knee I&D and removal of intramedullary nail (May 07--[place]).
-Post op dressings in place. Upon removal incisions RLE proximal to stump noted to be C/D/I. No drainage or erythema. Diffuse TTP. motion of knee with discomfort. Moderate swelling.
-Reports pain is similar to what it was yesterday. Pain control per primary team
-Gram stain and cultures from intra op fluid NGTD. Continue to follow.
-Continue with IV abx per ID pending cultures
-Will continue to follow cultures.
[2025-05-09] MEDS: NOVOLOG FLEXPEN SC (09:21)
[2025-05-09] MEDS: NOVOLOG FLEXPEN-LOW RESISTANCE SC (09:22)
[2025-05-09] MEDS: RANEXA EXTENDED RELEASE 1000 MG PO ×2 (09:22→20:31)
[2025-05-09] MEDS: FLORASTOR 250 MG PO ×2 (09:23→20:31)
[2025-05-09] MEDS: LANTUS SC (09:24)
[2025-05-09] MEDS: ASPIR LOW (ENTERIC COATED) 81 MG PO (09:24)
[2025-05-09] MEDS: NEURONTIN 300 MG PO ×3 (09:24→22:58)
[2025-05-09] MEDS: IMDUR (EXTENDED RELEASE) 60 MG PO (09:24)
[2025-05-09] MEDS: HEPARIN 5000 UNITS SC ×3 (09:25→21:51)
[2025-05-09] MEDS: PROTONIX 40 MG PO (09:26)
[2025-05-09] MEDS: SENOKOT PO (09:34)
[2025-05-09] MEDS: FEOSOL 325 MG PO ×2 (09:34→20:31)
[2025-05-09] MEDS: CYMBALTA DELAYED RELEASE 30 MG PO (09:35)
[2025-05-09] MEDS: DESENEX/MITRAZOL/ZEASORB 1 APPLIC TOPICAL ×2 (09:36→20:33)
[2025-05-09] MEDS: COLACE PO (09:36)
[2025-05-09] MEDS: COREG 25 MG PO ×2 (09:36→20:32)
--- NOTE | 2025-05-09 10:01 | W.PN.UPDATE ---
Update Note
Progress Note Update
Martina removed from left BKA site, suture line is well-approximated following removal and well-healed. No evidence of skin breakdown at left BKA site.
--- NOTE | 2025-05-09 11:03 | W.PN.ID1 ---
Date of Service
Date of Service: May 09, 2025
Today's Communication
cultures no growth to date
continue avycaz and daptomycin for present
continue oral vanc to complete 10 day course
Assessment / Plan
# Right Knee Septic Arthritis with infected femoral nail
- 95K WBC, 98%PMNS, CPPD crystals also seen, culture in progress no growth to date
# CPPD disease
# Fever - resolved
# Leukocytosis - resolved
# AMBER - improving
- leukocytosis and fevers have resolved
- 05/06 purulent material was encountered within the knee in the OR, labeled proximal femur and sent for culture - no growth to date
- second OR culture no growth to date
- arthrocentesis fluid no growth at 72 hours
- continue daptomycin and avycaz day 3
# C difficile
- vancomycin is not absorbed systemically, 10 day course 05/02-
# Osteomyelitis Left foot TMA site wound dehiscence with necrosis
- Failed multiple revisions
- 04/21/25 s/p left BKA
- s/p daptomycin and ceftaz/avibactam, dc'd on 04/25.
- Wound Care.
# Right BKA stump superficial scab over bony prominence.
- Possible eventual revision of stump
# Allergies: PCN, cephalosporin, meropenem, Vancomycin; tolerated Avyzaz
# Incarcerated
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
Diabetes mellitus
CAD status post PCI
CHF
hx CKD3
Hypertension
Guillain-Potts� syndrome/CIDP, plasma exchange q 2 months
PAD status post right BKA
Left hallux and second toe osteomyelitis status post amputation and debridement of left heel ulcer January 21, 2025
Left foot TMA, I+D left heel wound and bone biopsy of heel (neg osteo) Mar 08, 2025 (path surgical cure)
Chief Complaint
-: Other (Foot wound)
Subjective / Review of Systems
afebrile
complains of some abdominal pain
also expected tenderness in the knee
Vital Signs / Physical Exam
Vital Signs
Vital Signs
Temp Pulse Resp BP Pulse Ox
98.3 F 82 16 146/66 100
05/09/25 08:02 05/09/25 08:02 05/09/25 08:02 05/09/25 08:02 05/09/25 08:02
Objective Data
Lab Data
Lab Results
05/09/25 06:15
05/09/25 06:15
ESR Cancelled 04/17/25 10:48
PT 13.7 Sec (11.4-14.6) 04/17/25 06:33
INR 1.02 04/17/25 06:33
APTT 33.8 Sec (23.4-35.0) 04/17/25 06:33
Estimated Creat Clear > 125 ml/min 05/09/25 06:15
Lactic Acid 0.8 mmol/L (0.7-2.0) 03/25/25 01:16
Total Bilirubin 0.4 mg/dl (0.2-1.3) 05/05/25 07:12
AST 13 U/L (17-59) L 05/05/25 07:12
ALT 15 U/L (0-50) 05/05/25 07:12
Alkaline Phosphatase 141 U/L (38-126) H 05/05/25 07:12
C-Reactive Protein > 270.00 mg/L (0.0-10.00) H 05/06/25 07:28
Most recent labs reviewed.
Micro Results:
05/05/25 10:02 Blood Culture - Preliminary
Blood/Venous No Growth in 4 days- Final report to follow
05/06/25 17:47 Anaerobic Culture - Preliminary
Femur - Right NO ANAEROBES ISOLATED
05/06/25 16:08 Anaerobic Culture - Preliminary
Knee - Right NO ANAEROBES ISOLATED
05/06/25 16:08 Wound Culture - Preliminary
Knee - Right No growth
Gram Stain - Preliminary
05/06/25 17:47 Wound Culture - Preliminary
Femur - Right No growth
Gram Stain - Preliminary
05/05/25 09:08 Blood Culture - Preliminary
Blood/Venous No Growth in 4 days- Final report to follow
05/05/25 07:48 Anaerobic Culture - Preliminary
Joint Fluid Culture pending. Anaerobic cultures are examined after 3
days incubation. Additional information to follow.
05/05/25 16:00 Body Fluid Culture - Preliminary
Knee - Right No Growth After 72 Hours
Gram Stain - Preliminary
05/05/25 10:10 Urine Culture - Final
Urine Anna albicans
05/05/25 10:49 Influenza Types A & B (JOSE) - Final
Nasal Swab Negative for Influenza A & B, NAAT
Negative results must be combined with clinical observations
and patient history.
Nucleic Acid Amplification test (NAAT)performed on the
[employer] platform.
05/02/25 11:42 C. difficile GDH Antigen & Toxins - Final
Feces/Stool Toxigenic C.difficile Positive
04/27/25 09:32 Blood Culture - Final
Blood/Venous No Growth - Final Report
04/27/25 08:33 Blood Culture - Final
Blood/Venous No Growth - Final Report
04/27/25 10:24 Urine Culture - Final
Urine NO GROWTH
03/25/25 16:52 Fungal Culture - Final
Foot - Left Anna albicans
04/13/25 16:07 Wound Culture - Final
Foot - Left Enterobacter cloacae
Gram Stain - Final
04/13/25 16:07 Anaerobic Culture - Final
Foot - Left NO ANAEROBES ISOLATED
04/04/25 16:30 Wound Culture - Final
Foot - Left Enterobacter cloacae
Gram Stain - Final
04/04/25 16:30 Anaerobic Culture - Final
Foot - Left NO ANAEROBES ISOLATED
03/31/25 10:51 Blood Culture - Final
Blood/Venous No Growth - Final Report
03/31/25 10:22 Blood Culture - Final
Blood/Venous No Growth - Final Report
03/25/25 09:33 Blood Culture - Final
Blood/Venous No Growth - Final Report
03/25/25 16:56 Wound Culture - Final
Foot - Left Staph aureus MRSA
Enterococcus faecalis - VRE
Gram Stain - Final
03/25/25 16:56 Anaerobic Culture - Final
Foot - Left NO ANAEROBES ISOLATED
03/25/25 16:52 Wound Culture - Final
Foot - Left Staph aureus MRSA
Enterococcus faecalis - VRE
Gram Stain - Final
03/25/25 16:52 Anaerobic Culture - Final
Foot - Left NO ANAEROBES ISOLATED
03/25/25 01:16 Blood Culture - Final
Blood/Venous No Growth - Final Report
03/27/25 10:35 Urine Culture - Final
Urine Anna albicans
03/24/25 12:51 Salmonella/Shigella Culture - Final
Feces/Stool No Salmonella, Shigella, Aeromonas or Plesiomonas species
isolated.
Campylobacter Culture - Final
No Campylobacter species isolated.
Shiga Toxin Test - Final
No E. coli Shiga Toxin 1 or 2 detected.
03/21/25 21:00 Blood Culture - Final
Blood/Venous No Growth - Final Report
03/21/25 21:00 Blood Culture - Final
Blood/Venous No Growth - Final Report
03/21/25 21:16 Wound Culture - Final
Foot - Left Enterococcus faecalis - VRE
Anna albicans
Gram Stain - Final
03/24/25 12:53 C. difficile GDH Antigen & Toxins - Final
Feces/Stool C. difficile antigen positive, toxin negative.
Clostridium difficile present, but toxin not detected.
Patient may be a carrier, colonized with nontoxinogenic
strain or the level of toxin in sample is below detection
limits. This information should be used in conjunction with
the patient's clinical history.
03/22/25 13:07 MRSA Screen - Final
Nose No Methicillin Resistant Staphylococcus aureus isolated.
[2025-05-09 11:27] LABS: Rheumatoid Agglutinin Less Than 10 IU (<10 IU)
[2025-05-09 11:37] LABS: Glucose - Point of Care 203 mg/dl (70-99)
--- NOTE | 2025-05-09 11:47 | CM ---
Chart reviewed. POD #3 from right knee I&D and removal of intramedullary nail.
Cont IV abx
Maintain brink catheter
Cont po vancomycin for c diff
[facility]
[2025-05-09 12:00] VITALS: BP 176/96
[2025-05-09] MEDS: NOVOLOG FLEXPEN-LOW RESISTANCE 2 UNITS SC (12:38)
--- NOTE | 2025-05-09 12:47 | W.PN.HOSP.TC ---
Addendum entered and electronically signed by Nichol Loera MD 05/09/25 13:43:
Attending�addendum:
I saw and evaluated the patient. I reviewed the resident�s note and agree with findings and plan as documented in the resident�s note.��patient seen and examined at bedside, dropped his glucose today morning.
No chest pain or shortness of breath.
Physical�exam:
GENERAL : Patient is awake, alert, oriented x3
HEENT: Nonicteric sclerae, PERRLA, EOMI. Oropharynx clear. Moist mucous membranes. Conjunctivae appear well perfused.
CHEST: Chest wall is nontender.
HEART: Regular rate and rhythm without murmurs.
LUNGS: Clear to auscultation bilaterally.
ABDOMEN: Soft, positive bowel sounds, nontender, no organomegaly.
RECTAL: Deferred.
MUSCLES/EXTREMITIES: Bilateral BKA .
NEUROLOGIC: Cranial nerves II-XII intact without motor/sensory deficit.
�
Assessment/plan:
Left foot wound dehiscence, status post BKA.
Acute blood loss anemia
Status post right BKA
Hyperkalemia, resolved
C. difficile colitis.
Continue vancomycin
History of coronary artery disease.
History of type 1 diabetes with hyperglycemia and neuropathy
CODE STATUS: Full code
DVT prophylaxis: SCDs
Diet: DM diet
Disposition: Continue antibiotic
�
Total time spent on today�s encounter was 51 minutes which included time spent in counseling the patient/family regarding diagnosis and treatment plan as listed above, goals of care, and symptom management. Case was discussed with nursing staff,
specialists, and care coordinators/case management. All labs and imaging personally reviewed by me. Remainder the time spent in detailed review of previous records, lab data, imaging, and other medical provider documentation.
Original Note:
Today's Communication/Plan
-
Discontinue Castillo; Resume q6h straight cath protocol. Follow up washout cultures. Continue abx.
Assessment / Plan
Assessment / Plan
Sang Post is a 29M w/ PMHx significant for T1-IDDM, CIDP, HTN, GERD, CKD stage IIIA, history of osteomyelitis with R BKA who presented with left foot osteomyelitis and wound dehiscence of left transmetatarsal amputation, treated by means of L
BKA. Additionally, he has received 12U of pRBCs over the course of this admission. Patient became C. Diff positive, and treatment was initiated. Currently being evaluated for R knee suprapatellar effusion w/ aspirate showing a septic knee.
Assessment/Plan:
-Left foot TMA site with wound dehiscence: Resolved- left BKA
-History of left foot TMA on 03/08: Resolved�left BKA
-Acute blood Loss Anemia secondary to the above: Resolved�left BKA
Vascular ultrasound showed no significant arterial stenosis on the left however Doppler waveforms suggest disease within the distal SFA/popliteal artery and infrapopliteal disease may also be present as per arterial studies. Multiple lymph nodes
were also seen in the left thigh which may be reactive.
Wound cultures grew MRSA, VRE
Blood cultures did not show any growth
Underwent ultrasound of the left lower extremity did not show any evidence of DVT
Iron supplementation continue
Continue monitoring hemoglobin daily and transfuse as needed to maintain hemoglobin greater than 7
Status postdebridement 03/25.
Pathology results came back which showed focal acute osteomyelitis and detached fragment of fibrino-purulent exudate
Patient underwent his open TMA revision and wound debridement on 04/04 -there was significant drainage postoperatively - pathology positive for acute and chronic osteomyelitis
Wound culture from 04/04 positive for Enterobacter Cloacae
Podiatry recommends nonweightbearing to the left lower extremity and continued elevation of the extremity on 2-3 pillows
Patient's lab work on the morning of 04/07/2025 had a hemoglobin at 7.1 with a hematocrit of 20.7�repeat H&H ordered which was 6.7 - 1 PRBC ordered on 04/07/25
Podiatry has tentatively planned for revision surgery of the L foot after pathology returns from most recent debridement on 04/06/25
Patient had an episode of acute blood loss on 04/08/2025 where a large amount of blood was lost from his foot wound. 1 PRBC given on 04/08/25
Scheduled for OR with podiatry for debridement vs lisfranc disarticulation on 04/13/25 - procedure tolerated well
Patient's Hgb is 7.5 on 04/15/25 - will continue to follow - if <7 then will transfuse PRBCs
Patient received 1 unit of PRBCs on 04/16/2025
Continue Holding anticoagulants postoperatively - will resume near discharge date
Appreciate hematology recommendations -they are under the impression that the patient is suffering from some element of WILBER and recommended continuing with oral iron supplement.
We have initiated anemia workup with LDH at 171, haptoglobin pending, Positive Candie test, 1+ BOBBY IgG, stool heme test, and PT/PTT were within normal limits. Based on positive Candie test, consider drug-induced immune hemolytic anemia, delayed
hemolytic transfusion reaction, or cold agglutinin disease
Abdominal ultrasound found that the liver and spleen were within normal limits in size without hepatosplenomegaly. No ascites. Tiny gallstones without sonographic features of acute cholecystitis. No bile duct dilatation.
Patient tolerated his Left BKA and is recovering postoperatively. POD 5 on 04/25/24 for L BKA
As per ID recommendations - Stump looks clean, discontinued Daptomycin and Ceftazidime/Avibactam and plan for DC
Patient spiked a fever on 04/27/25 with 101.1 temp. Reconsulted ID, CXR ordered, COVID negative, UA with reflex to culture ordered, BCs x2 ordered - BCs negative and COVID negative
Patient required additional units of pRBCs on 05/05 and 05/06. As of that date, total 13U.
On 05/06 we discussed the case with Hematology, order reticulocyte count and they will see again. No role for BM Bx.
-Right BKA: Stable/monitoring
Swelling noted; ortho consulted
Aspirate shows a septic joint, taken for washout on 05/06/25
Started on Daptomycin and Ceftazidime-Avibactam
Cultures remain pending, continue to monitor
-Hypoactive delirium likely due to opiate overdose: Resolved
-Hyperkalemia: Resolved
Patient was hyperkalemic with potassium of 5.5 on 04/14/25
Lokelma given, Insulin adjusted to home dose.
Repeat potassium on 04/15/25 is 4.9 - within normal limits.
Potassium was 5.7 on 04/18/2025�Lokelma given
Torsemide has been resumed
Potassium stable
Clostridium Difficile Infection:
C. Diff positive 05/02
Vancomycin PO 125mg qid for 10 days (stop after 05/11)
Patient transitioned to Dificid after allergy noted, but patient states that he felt clammy and itchy. Switched back to Vancomycin 125mg qid.
- History of ASCVD: Stable/monitoring
- Status post stent placement: Stable/monitoring
- Chest pain: Stable/monitoring
EKG/troponin negative for any acute process
ASA held
Plavix 75mg held
Statin held
Continue Ranolazine
Continue CarvedilolType 1 diabetes with Hyperglycemia and neuropathy: Stable/monitoring
A1C = 8.1% in January. Hba1c on 03/21/25 was 6.9 indicating improvement in overall glycemic control
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
Continue gabapentin, continue duloxetine
Lantus adjusted to 25 units, Aspart adjusted to 8 units at breakfast, lunch and dinner.
05/07: Lantus held in setting of low sugar, D5 w/ HCO3 given-AMBER on CKD IIIa: Stable/monitoring
Continue to monitoring creatinine, has been hovering around 1.4/1.5
Urine studies show pre-renal cause, likely from hypovolemic state
Continued elevated creatinine level at 1.6 on 04/04/2025
Continue monitoring BMP.
Torsemide resumed
IV fluid support
Cr spike to 4 on 05/06; patient admitted to forgetting to straight cath himself
Nursing orders for q6h straight cath
Creatinines improving
-GERD: Stable/monitoring
Continue Pantoprazole-Chronic inflammatory demyelinating polyneuropathy: Stable/monitoring
Continue current meds, will need to arrange for PLEX in outpatient setting once discharged
See attending note for 05/09 PE.
FULL CODE
GI PPx: Pantoprazole
DVT Prophylaxis: SCDs

Imaging:
-Left foot x-ray conducted on 03/21/2025:
Status post amputation at the level of the first through fifth proximal metatarsal bones.
No radiographic evidence for osteomyelitis.- Bilateral lower extremity arterial ultrasound exam conducted on 03/23/2025:
1. Ankle-brachial indices and toe brachial indices could not be measured due to prior amputations.
2. No focal significant arterial stenosis demonstrated on the left side on duplex imaging. Spectral Doppler waveform analysis is suggestive of disease within the distal SFA/popliteal artery. Infrapopliteal disease may also be present.
3. Multiple lymph nodes are seen within the left thigh, which may be reactive.-Peripheral vascular ultrasound of the left lower extremity conducted on 03/31/2025:
No evidence of DVT of the left lower extremity.

Procedures:
03/03/2025-initial amputation of left transmetatarsal
03/25/2025-debridement of infected left metatarsal amputation
04/04/2025-revision debridement of left heel wound with calcaneal biopsy
Anticipated Discharge: > 48 hours
Subjective/Interval History
-
Date of Service: May 09, 2025
Patient states that he still has abdominal pain, still has pain in the right knee.
Objective Data
-
Labs:
Laboratory Results
05/09/25
06:15
WBC 9.1
Hgb 7.5 L
Hct 23.1 L
Plt Count 607 H
Sodium 138
Potassium 4.3
Chloride 108 H
Carbon Dioxide 29
BUN 23 H
Creatinine 0.9
Glucose 44 L*
Calcium 8.2 L
Vital Signs:
Vital Signs
Temp Pulse Resp BP Pulse Ox
98.4 F 90 16 176/96 94
05/09/25 12:00 05/09/25 12:00 05/09/25 12:00 05/09/25 12:00 05/09/25 12:00
I&O
05/08/25 05/09/25 05/10/25
06:59 06:59 06:59
Intake Total 500 / 500 2880 / 2880
Output Total 1250 / 1250 5400 / 5400
Balance -750 / -750 -2520 / -2520
Review of Systems
-
History Source: Patient
All other systems: Reviewed and negative
Data Reviewed
-
Labs: Labs Reviewed by me and Discussed with Patient
[2025-05-09] MEDS: NOVOLOG FLEXPEN 3 UNITS SC ×2 (14:03→17:05)
[2025-05-09 16:00] VITALS: BP 144/87
[2025-05-09] MEDS: CUBICIN 18 MG IV (16:58)
[2025-05-09 17:00] LABS: Glucose - Point of Care 250 mg/dl (70-99)
[2025-05-09] MEDS: NOVOLOG FLEXPEN-LOW RESISTANCE 3 UNITS SC (17:05)
[2025-05-09 19:45] VITALS: BP 175/88
[2025-05-09] MEDS: COLACE 100 MG PO (20:31)
[2025-05-09] MEDS: SENOKOT 17.2 MG PO (20:31)
[2025-05-09 21:57] LABS: Glucose - Point of Care 286 mg/dl (70-99)
[2025-05-09] MEDS: REMERON 30 MG PO (22:58)
[2025-05-09] MEDS: LANTUS 0.13 UNITS SC (22:59)
[2025-05-09 23:20] VITALS: BP 187/97
[2025-05-10] MEDS: DILAUDID 0.5 MG IV ×2 (02:47→17:55)
[2025-05-10 03:00] LABS: Glucose - Point of Care 354 mg/dl (70-99)
[2025-05-10 03:10] VITALS: BP 187/86
[2025-05-10] MEDS: NOVOLOG FLEXPEN 10 UNITS SC ×2 (03:16→05:35)
[2025-05-10 04:18] VITALS: BP 151/74
[2025-05-10 05:12] LABS: Glucose - Point of Care 330 mg/dl (70-99)
[2025-05-10] MEDS: FIRVANQ 125 MG PO ×4 (05:23→23:56)
[2025-05-10 05:29] VITALS: BMI 31.3
[2025-05-10 08:00] LABS: Hematocrit 24.8 % (39.0-52.0); Hemoglobin 7.9 g/dL (13.0-18.0); Mean Corp Hgb Conc. 31.9 g/dL (33.0-37.0); Mean Corpuscular Volume 87.0 fL (80.0-94.0); Platelet Count 716 10^3/uL (130-400); Red Cell Dist. Width 15.6 % (11.5-14.5)
[2025-05-10 08:32] LABS: Blood Urea Nitrogen 14 mg/dl (9-20); Calcium 8.1 mg/dl (8.4-10.2); Carbon Dioxide 27 mmol/L (22-30); Chloride 105 mmol/L (98-107); Estimated Creatinine Clearance > 125 ml/min; Glucose 217 mg/dl (70-99); Potassium 4.2 mmol/L (3.5-5.1); Sodium 136 mmol/L (135-145); eGFR > 60.00
--- NOTE | 2025-05-10 08:53 | PN.DE.MGMTRT ---
Insulin Management
- -
05/10/2025: Diabetes Management Follow up
Patient admitted from [facility] 03/21 with c/o bleeding L heel wound. PMH type 1 diabetes, R BKA, L toe amputation, recent debridement L heel, [place], CHF, HTN, CKD, PR, recent admission 01/21 and 03/05 s/p
transmetatarsal L amputation and debridement. Prior to admission was receiving Lantus 30 units BID with Humalog insulin ss AC. A1C on admission 6.9%, (improved from 8.1%).
Prior to incarceration was living in a [facility] per patient he will return there.
Patient awake, alert, oriented, sitting up in bed, c/o feeling sluggish and tired, able to discuss diabetes care plan.
Hgb 7.5. +C-Diff, Right knee septic arthritis with infected femoral nail. AMBER resolved Cr went up to 4.1 on 05/05/2025, now Cr 0.9, eGFR > 60 today.
POD #4 s/p right knee I&D and removal of intramedullary nail. POD# 16 s/p Left BKA.
05/05 Lantus dose was increased to 26 units BID and AC NovoLog to 10 units, glucose improved to range of 92 to 136
05/08 patient refusing to eat (citing poor appetite), premeal insulin was held and Lantus dose reduced to 13 units BID.
Hs glucose was 161, pt received Lantus 13 units. Noted for hypoglycemia of 44 venous this AM, POC 109 after treatment.
Pt states he has no appetite, he only ate ~20% of his breakfast today. AM Lantus and mealtime NovoLog dose HELD .
05/09 Glucose up to 286.
05/10 3AM glucose 354, received 10 units novolog, fasting glucose 330 received 10 units novolog. Will increase AC novolog to 6 units to start with lunch
and increase BID lantus to 16 units.
Discussed with nurse, instructed to HOLD AC insulin if patient doesn't eat.
Will cont to follow and adjust insulin dose if necessary.
Diabetes History
- -
Type of Diabetes: 1
Pre-Admission Diabetes Regimen
05/10/25
07:14
Creatinine 0.8
Lab Results
Hemoglobin A1c 6.9 % (4.0-5.6) H 03/22/25 06:24
Insulin Pump Settings
IP Diabetes Regimen
05/09/25 05/09/25 05/09/25
11:35 16:59 21:56
Glucose
POC Glucose 203 H 250 H 286 H
05/10/25 05/10/25 05/10/25
02:58 05:11 07:14
Glucose 217 H
POC Glucose 354 H 330 H
Meal type: Breakfast
Amount consumed: 50%
Patient Education
--- NOTE | 2025-05-10 08:59 | W.PN.HOSP.TC ---
Addendum entered and electronically signed by Nichol Loera MD 05/10/25 11:59:
Attending�addendum:
I saw and evaluated the patient. I reviewed the resident�s note and agree with findings and plan as documented in the resident�s note.��patient seen and examined at bedside, dropped his glucose today morning.
No chest pain or shortness of breath.
Physical�exam:
GENERAL : Patient is awake, alert, oriented x3
HEENT: Nonicteric sclerae, PERRLA, EOMI. Oropharynx clear. Moist mucous membranes. Conjunctivae appear well perfused.
CHEST: Chest wall is nontender.
HEART: Regular rate and rhythm without murmurs.
LUNGS: Clear to auscultation bilaterally.
ABDOMEN: Soft, positive bowel sounds, nontender, no organomegaly.
RECTAL: Deferred.
MUSCLES/EXTREMITIES: Bilateral BKA .
NEUROLOGIC: Cranial nerves II-XII intact without motor/sensory deficit.
�
Assessment/plan:
Left foot wound dehiscence, status post BKA.
Acute blood loss anemia
Status post right BKA
Hyperkalemia, resolved
C. difficile colitis.
Continue vancomycin
History of coronary artery disease.
History of type 1 diabetes with hyperglycemia and neuropathy
CODE STATUS: Full code
DVT prophylaxis: SCDs
Diet: DM diet
Disposition: Continue antibiotic
�
Total time spent on today�s encounter was 51 minutes which included time spent in counseling the patient/family regarding diagnosis and treatment plan as listed above, goals of care, and symptom management. Case was discussed with nursing staff,
specialists, and care coordinators/case management. All labs and imaging personally reviewed by me. Remainder the time spent in detailed review of previous records, lab data, imaging, and other medical provider documentation.
Original Note:
Today's Communication/Plan
-
Await tailored abx. Cultures/gram stain pending.
Assessment / Plan
Assessment / Plan
Sang Post is a 29M w/ PMHx significant for T1-IDDM, CIDP, HTN, GERD, CKD stage IIIA, history of osteomyelitis with R BKA who presented with left foot osteomyelitis and wound dehiscence of left transmetatarsal amputation, treated by means of L
BKA. Additionally, he has received 12U of pRBCs over the course of this admission. Patient became C. Diff positive, and treatment was initiated. Currently being evaluated for R knee suprapatellar effusion w/ aspirate showing a septic knee.
Assessment/Plan:
-Left foot TMA site with wound dehiscence: Resolved- left BKA
-History of left foot TMA on 03/08: Resolved�left BKA
-Acute blood Loss Anemia secondary to the above: Resolved�left BKA
Vascular ultrasound showed no significant arterial stenosis on the left however Doppler waveforms suggest disease within the distal SFA/popliteal artery and infrapopliteal disease may also be present as per arterial studies. Multiple lymph nodes
were also seen in the left thigh which may be reactive.
Wound cultures grew MRSA, VRE
Blood cultures did not show any growth
Underwent ultrasound of the left lower extremity did not show any evidence of DVT
Iron supplementation continue
Continue monitoring hemoglobin daily and transfuse as needed to maintain hemoglobin greater than 7
Status postdebridement 03/25.
Pathology results came back which showed focal acute osteomyelitis and detached fragment of fibrino-purulent exudate
Patient underwent his open TMA revision and wound debridement on 04/04 -there was significant drainage postoperatively - pathology positive for acute and chronic osteomyelitis
Wound culture from 04/04 positive for Enterobacter Cloacae
Podiatry recommends nonweightbearing to the left lower extremity and continued elevation of the extremity on 2-3 pillows
Patient's lab work on the morning of 04/07/2025 had a hemoglobin at 7.1 with a hematocrit of 20.7�repeat H&H ordered which was 6.7 - 1 PRBC ordered on 04/07/25
Podiatry has tentatively planned for revision surgery of the L foot after pathology returns from most recent debridement on 04/06/25
Patient had an episode of acute blood loss on 04/08/2025 where a large amount of blood was lost from his foot wound. 1 PRBC given on 04/08/25
Scheduled for OR with podiatry for debridement vs lisfranc disarticulation on 04/13/25 - procedure tolerated well
Patient's Hgb is 7.5 on 04/15/25 - will continue to follow - if <7 then will transfuse PRBCs
Patient received 1 unit of PRBCs on 04/16/2025
Continue Holding anticoagulants postoperatively - will resume near discharge date
Appreciate hematology recommendations -they are under the impression that the patient is suffering from some element of WILBER and recommended continuing with oral iron supplement.
We have initiated anemia workup with LDH at 171, haptoglobin pending, Positive Candie test, 1+ BOBBY IgG, stool heme test, and PT/PTT were within normal limits. Based on positive Candie test, consider drug-induced immune hemolytic anemia, delayed
hemolytic transfusion reaction, or cold agglutinin disease
Abdominal ultrasound found that the liver and spleen were within normal limits in size without hepatosplenomegaly. No ascites. Tiny gallstones without sonographic features of acute cholecystitis. No bile duct dilatation.
Patient tolerated his Left BKA and is recovering postoperatively. POD 5 on 04/25/24 for L BKA
As per ID recommendations - Stump looks clean, discontinued Daptomycin and Ceftazidime/Avibactam and plan for DC
Patient spiked a fever on 04/27/25 with 101.1 temp. Reconsulted ID, CXR ordered, COVID negative, UA with reflex to culture ordered, BCs x2 ordered - BCs negative and COVID negative
Patient required additional units of pRBCs on 05/05 and 05/06. As of that date, total 13U.
On 05/06 we discussed the case with Hematology, order reticulocyte count and they will see again. No role for BM Bx.
-Right BKA: Stable/monitoring
Swelling noted; ortho consulted
Aspirate shows a septic joint, taken for washout on 05/06/25
Started on Daptomycin and Ceftazidime-Avibactam
Cultures remain pending, continue to monitor
-Hypoactive delirium likely due to opiate overdose: Resolved
-Hyperkalemia: Resolved
Patient was hyperkalemic with potassium of 5.5 on 04/14/25
Lokelma given, Insulin adjusted to home dose.
Repeat potassium on 04/15/25 is 4.9 - within normal limits.
Potassium was 5.7 on 04/18/2025�Lokelma given
Torsemide has been resumed
Potassium stable
Clostridium Difficile Infection:
C. Diff positive 05/02
Vancomycin PO 125mg qid for 10 days (stop after 05/11)
Patient transitioned to Dificid after allergy noted, but patient states that he felt clammy and itchy. Switched back to Vancomycin 125mg qid.
- History of ASCVD: Stable/monitoring
- Status post stent placement: Stable/monitoring
- Chest pain: Stable/monitoring
EKG/troponin negative for any acute process
ASA held
Plavix 75mg held
Statin held
Continue Ranolazine
Continue CarvedilolType 1 diabetes with Hyperglycemia and neuropathy: Stable/monitoring
A1C = 8.1% in January. Hba1c on 03/21/25 was 6.9 indicating improvement in overall glycemic control
Diabetes [facility]TAIN consulted, recommendations appreciated
Continue gabapentin, continue duloxetine
Lantus adjusted to 25 units, Aspart adjusted to 8 units at breakfast, lunch and dinner.
05/07: Lantus held in setting of low sugar, D5 w/ HCO3 given-AMBER on CKD IIIa: Stable/monitoring
Continue to monitoring creatinine, has been hovering around 1.4/1.5
Urine studies show pre-renal cause, likely from hypovolemic state
Continued elevated creatinine level at 1.6 on 04/04/2025
Continue monitoring BMP.
Torsemide resumed
IV fluid support
Cr spike to 4 on 05/06; patient admitted to forgetting to straight cath himself
Nursing orders for q6h straight cath
Creatinines improving
-GERD: Stable/monitoring
Continue Pantoprazole-Chronic inflammatory demyelinating polyneuropathy: Stable/monitoring
Continue current meds, will need to arrange for PLEX in outpatient setting once discharged
See attending note for 05/09 PE.
FULL CODE
GI PPx: Pantoprazole
DVT Prophylaxis: SCDs

Imaging:
-Left foot x-ray conducted on 03/21/2025:
Status post amputation at the level of the first through fifth proximal metatarsal bones.
No radiographic evidence for osteomyelitis.- Bilateral lower extremity arterial ultrasound exam conducted on 03/23/2025:
1. Ankle-brachial indices and toe brachial indices could not be measured due to prior amputations.
2. No focal significant arterial stenosis demonstrated on the left side on duplex imaging. Spectral Doppler waveform analysis is suggestive of disease within the distal SFA/popliteal artery. Infrapopliteal disease may also be present.
3. Multiple lymph nodes are seen within the left thigh, which may be reactive.-Peripheral vascular ultrasound of the left lower extremity conducted on 03/31/2025:
No evidence of DVT of the left lower extremity.

Procedures:
03/03/2025-initial amputation of left transmetatarsal
03/25/2025-debridement of infected left metatarsal amputation
04/04/2025-revision debridement of left heel wound with calcaneal biopsy
Anticipated Discharge: 24 - 48 hours
Subjective/Interval History
-
Date of Service: May 10, 2025
Patient seen and examined while resting comfortably in bed. States he feels fair today. Has continued pain in the R knee. States he still has continued diarrhea.
Objective Data
-
Labs:
Laboratory Results
05/10/25
07:14
WBC 9.4
Hgb 7.9 L
Hct 24.8 L
Plt Count 716 H
Sodium 136
Potassium 4.2
Chloride 105
Carbon Dioxide 27
BUN 14
Creatinine 0.8
Glucose 217 H
Calcium 8.1 L
Vital Signs:
Vital Signs
Temp Pulse Resp BP Pulse Ox
98.9 F 87 16 151/74 95
05/10/25 03:10 05/10/25 04:18 05/10/25 03:10 05/10/25 04:18 05/10/25 03:10
I&O
05/09/25 05/10/25 05/11/25
06:59 06:59 06:59
Intake Total 2880 / 2880 1920 / 1920
Output Total 5400 / 5400 3200 / 3200
Balance -2520 / -2520 -1280 / -1280
Review of Systems
-
History Source: Patient
All other systems: Reviewed and negative
Physical Exam
-
General: No Apparent Distress, Comfortable and Conversant
HEENT: Normocephalic, Atraumatic and Anicteric
Respiratory: Clear to Auscultation and Non Labored Respirations; Negative Wheezes, Rales, Rhonchi or Crackles
Cardiac: Regular Rhythm and S1/S2
GI: Soft, Nontender, Nondistended and Normal Bowel Sounds
Musculoskeletal: Other (Right Knee, mild swelling, incision site c/d/i; left knee dressing c/d/i)
Skin: Warm
Neuro: Awake, Alert and Oriented
Psych: Calm
Data Reviewed
-
Total Time Spent with Patient (in minutes): 20
Labs: Labs Reviewed by me and Discussed with Patient
[2025-05-10 09:00] LABS: Glucose - Point of Care 181 mg/dl (70-99)
[2025-05-10] MEDS: ASPIR LOW (ENTERIC COATED) 81 MG PO (09:14)
[2025-05-10] MEDS: RANEXA EXTENDED RELEASE 1000 MG PO ×2 (09:14→21:25)
[2025-05-10] MEDS: NEURONTIN 300 MG PO ×3 (09:14→21:24)
[2025-05-10] MEDS: CYMBALTA DELAYED RELEASE 30 MG PO (09:14)
[2025-05-10] MEDS: PROTONIX 40 MG PO (09:15)
[2025-05-10] MEDS: FEOSOL 325 MG PO ×2 (09:15→21:22)
[2025-05-10] MEDS: IMDUR (EXTENDED RELEASE) 60 MG PO (09:15)
[2025-05-10] MEDS: FLORASTOR 250 MG PO ×2 (09:16→21:22)
[2025-05-10] MEDS: COREG 25 MG PO ×2 (09:16→21:22)
[2025-05-10] MEDS: COLACE PO ×2 (09:17→21:22)
[2025-05-10] MEDS: HEPARIN 5000 UNITS SC ×2 (09:17→21:23)
[2025-05-10] MEDS: SENOKOT PO ×2 (09:18→21:24)
[2025-05-10] MEDS: NOVOLOG FLEXPEN-LOW RESISTANCE 1 UNITS SC (09:19)
[2025-05-10] MEDS: LANTUS 0.16 UNITS SC ×2 (09:20→21:24)
[2025-05-10] MEDS: DESENEX/MITRAZOL/ZEASORB TOPICAL (10:20)
[2025-05-10] MEDS: NOVOLOG FLEXPEN SC ×2 (10:30→17:47)
[2025-05-10] MEDS: LANTUS SC (10:31)
--- NOTE | 2025-05-10 10:35 | W.PN.UPDATE ---
Update Note
Progress Note Update
29 year old male POD #4 from right knee I&D and removal of intramedullary nail.
-Post op dressings removed yesterday. Incisions are c/d/i. No drainage or erythema.
-Diffuse TTP. motion of knee with discomfort. Moderate swelling.
-Reports pain is similar to what it was yesterday. No relief with morphine.
-Gram stain and cultures from intra op fluid with no growth to date, gram stain with no organisms seen.
-Continue with IV abx per ID pending cultures.
-Will continue to follow cultures.
-Primaseal dressings placed over incisions to keep trino covered. These may remain in place x 1 week.
-Will plan to see patient at 2 weeks post op for staple removal.
-Ortho to follow along peripherally for now until 2 weeks post op. Please re-engage with any further concerns.
[2025-05-10 11:02] VITALS: BP 145/80
[2025-05-10 12:02] LABS: Glucose - Point of Care 307 mg/dl (70-99)
[2025-05-10 12:38] VITALS: BP 163/84; PULSE 80
--- NOTE | 2025-05-10 13:10 | W.PN.ID1 ---
Date of Service
Date of Service: May 10, 2025
Today's Communication
Continue abx's.
Assessment / Plan
# Right Knee Septic Arthritis with infected femoral nail
- 95K WBC, 98%PMNS, CPPD crystals also seen, aerobic and anaerobic cultures negative
# Right Knee CPPD disease
# Fever - resolved
# Leukocytosis - resolved
# AMBER - improving
- Arthrocentesis cx's negative
- 05/06 purulent material was encountered within the knee in the OR, labeled proximal femur and sent for culture
OR cultures: No growth to date
- continue daptomycin and avycaz day 4
- follow CK
# C difficile
- Continue po Vancomycin (d9), extend 125mg po q6 through 05/15, then prophylactic dose while on abx.
# Osteomyelitis Left foot TMA site wound dehiscence with necrosis
- Failed multiple revisions
- 04/21/25 s/p left BKA
- s/p daptomycin and ceftaz/avibactam, dc'd on 04/25.
- Wound Care.
# Right BKA stump superficial scab over bony prominence.
- Possible eventual revision of stump
# Multiple abx allergies: PCN, cephalosporin, meropenem, Vancomycin; tolerated Avyzaz
# Incarcerated
Conditions [employer]
Diabetes mellitus
CAD status post PCI
CHF
hx CKD3
Hypertension
Guillain-Potts� syndrome/CIDP, plasma exchange q 2 months
PAD status post right BKA
Left hallux and second toe osteomyelitis status post amputation and debridement of left heel ulcer January 21, 2025
Left foot TMA, I+D left heel wound and bone biopsy of heel (neg osteo) Mar 08, 2025 (path surgical cure)
Chief Complaint
-: Other (Foot wound)
Subjective / Review of Systems
Still with right knee pain. Still with diarrhea.
Vital Signs / Physical Exam
Vital Signs
Vital Signs
Temp Pulse Resp BP Pulse Ox
98.4 F 80 18 145/80 94
05/10/25 11:02 05/10/25 11:02 05/10/25 11:02 05/10/25 11:02 05/10/25 11:02
Physical Exam
Constitutional: No Acute Distress
Cardiovascular: Regular Rate and S1/S2
Pulmonary: Clear
Gastrointestinal: Soft, Non Tender, Non Distended and Normal Bowel Sounds
Musculoskeletal: Other (Right knee no erythema, + tenderness to thigh)
Wound: Other (R AKA stump wound with dry eschar)
Objective Data
Lab Data
Lab Results
05/10/25 07:14
05/10/25 07:14
ESR Cancelled 04/17/25 10:48
PT 13.7 Sec (11.4-14.6) 04/17/25 06:33
INR 1.02 04/17/25 06:33
APTT 33.8 Sec (23.4-35.0) 04/17/25 06:33
Estimated Creat Clear > 125 ml/min 05/10/25 07:14
Lactic Acid 0.8 mmol/L (0.7-2.0) 03/25/25 01:16
Total Bilirubin 0.4 mg/dl (0.2-1.3) 05/05/25 07:12
AST 13 U/L (17-59) L 05/05/25 07:12
ALT 15 U/L (0-50) 05/05/25 07:12
Alkaline Phosphatase 141 U/L (38-126) H 05/05/25 07:12
C-Reactive Protein > 270.00 mg/L (0.0-10.00) H 05/06/25 07:28
Most recent labs reviewed.
Micro Results:
05/05/25 16:00 Body Fluid Culture - Final
Knee - Right No Growth After 72 Hours
Gram Stain - Final
05/05/25 07:48 Anaerobic Culture - Final
Joint Fluid NO ANAEROBES ISOLATED
05/05/25 10:02 Blood Culture - Final
Blood/Venous No Growth - Final Report
05/05/25 09:08 Blood Culture - Final
Blood/Venous No Growth - Final Report
05/06/25 17:47 Anaerobic Culture - Preliminary
Femur - Right NO ANAEROBES ISOLATED
05/06/25 16:08 Anaerobic Culture - Preliminary
Knee - Right NO ANAEROBES ISOLATED
05/06/25 16:08 Wound Culture - Preliminary
Knee - Right No growth
Gram Stain - Preliminary
05/06/25 17:47 Wound Culture - Preliminary
Femur - Right No growth
Gram Stain - Preliminary
05/05/25 10:10 Urine Culture - Final
Urine Anna albicans
05/05/25 10:49 Influenza Types A & B (JOSE) - Final
Nasal Swab Negative for Influenza A & B, NAAT
Negative results must be combined with clinical observations
and patient history.
Nucleic Acid Amplification test (NAAT)performed on the
[employer] platform.
05/02/25 11:42 C. difficile GDH Antigen & Toxins - Final
Feces/Stool Toxigenic C.difficile Positive
04/27/25 09:32 Blood Culture - Final
Blood/Venous No Growth - Final Report
04/27/25 08:33 Blood Culture - Final
Blood/Venous No Growth - Final Report
04/27/25 10:24 Urine Culture - Final
Urine NO GROWTH
03/25/25 16:52 Fungal Culture - Final
Foot - Left Anna albicans
04/13/25 16:07 Wound Culture - Final
Foot - Left Enterobacter cloacae
Gram Stain - Final
04/13/25 16:07 Anaerobic Culture - Final
Foot - Left NO ANAEROBES ISOLATED
04/04/25 16:30 Wound Culture - Final
Foot - Left Enterobacter cloacae
Gram Stain - Final
04/04/25 16:30 Anaerobic Culture - Final
Foot - Left NO ANAEROBES ISOLATED
03/31/25 10:51 Blood Culture - Final
Blood/Venous No Growth - Final Report
03/31/25 10:22 Blood Culture - Final
Blood/Venous No Growth - Final Report
03/25/25 09:33 Blood Culture - Final
Blood/Venous No Growth - Final Report
03/25/25 16:56 Wound Culture - Final
Foot - Left Staph aureus MRSA
Enterococcus faecalis - VRE
Gram Stain - Final
03/25/25 16:56 Anaerobic Culture - Final
Foot - Left NO ANAEROBES ISOLATED
03/25/25 16:52 Wound Culture - Final
Foot - Left Staph aureus MRSA
Enterococcus faecalis - VRE
Gram Stain - Final
03/25/25 16:52 Anaerobic Culture - Final
Foot - Left NO ANAEROBES ISOLATED
03/25/25 01:16 Blood Culture - Final
Blood/Venous No Growth - Final Report
03/27/25 10:35 Urine Culture - Final
Urine Anna albicans
03/24/25 12:51 Salmonella/Shigella Culture - Final
Feces/Stool No Salmonella, Shigella, Aeromonas or Plesiomonas species
isolated.
Campylobacter Culture - Final
No Campylobacter species isolated.
Shiga Toxin Test - Final
No E. coli Shiga Toxin 1 or 2 detected.
03/21/25 21:00 Blood Culture - Final
Blood/Venous No Growth - Final Report
03/21/25 21:00 Blood Culture - Final
Blood/Venous No Growth - Final Report
03/21/25 21:16 Wound Culture - Final
Foot - Left Enterococcus faecalis - VRE
Anna albicans
Gram Stain - Final
03/24/25 12:53 C. difficile GDH Antigen & Toxins - Final
Feces/Stool C. difficile antigen positive, toxin negative.
Clostridium difficile present, but toxin not detected.
Patient may be a carrier, colonized with nontoxinogenic
strain or the level of toxin in sample is below detection
limits. This information should be used in conjunction with
the patient's clinical history.
03/22/25 13:07 MRSA Screen - Final
Nose No Methicillin Resistant Staphylococcus aureus isolated.
[2025-05-10] MEDS: NOVOLOG FLEXPEN 6 UNITS SC (13:16)
[2025-05-10] MEDS: NOVOLOG FLEXPEN-LOW RESISTANCE 4 UNITS SC (13:17)
[2025-05-10 15:58] VITALS: BP 161/87
[2025-05-10 17:06] LABS: Glucose - Point of Care 130 mg/dl (70-99)
[2025-05-10] MEDS: NOVOLOG FLEXPEN-LOW RESISTANCE SC (17:48)
[2025-05-10] MEDS: CUBICIN 18 MG IV (17:49)
[2025-05-10 21:09] LABS: Glucose - Point of Care 224 mg/dl (70-99)
[2025-05-10] MEDS: REMERON 30 MG PO (21:25)
[2025-05-10] MEDS: DESENEX/MITRAZOL/ZEASORB 1 APPLIC TOPICAL (21:27)
[2025-05-10 23:05] VITALS: BP 162/83
[2025-05-11] MEDS: DILAUDID 0.5 MG IV ×4 (01:08→22:05)
--- NOTE | 2025-05-11 02:37 | PTCARENOTE ---
Joshua CLEMENTE witnessed patient straight cath himself and output 650cc at 1930 05/10. I offered pt a straight cath kit, he refused and asked to do it at 0600.
[2025-05-11] MEDS: FIRVANQ 125 MG PO ×4 (05:22→23:09)
[2025-05-11 06:00] VITALS: BMI 31.1
[2025-05-11 07:25] VITALS: BP 198/101
[2025-05-11 07:38] LABS: Glucose - Point of Care 183 mg/dl (70-99)
[2025-05-11 07:52] LABS: Hematocrit 27.2 % (39.0-52.0); Hemoglobin 8.6 g/dL (13.0-18.0); Mean Corp Hgb Conc. 31.6 g/dL (33.0-37.0); Mean Corpuscular Volume 87.2 fL (80.0-94.0); Platelet Count 757 10^3/uL (130-400); Red Cell Dist. Width 15.7 % (11.5-14.5)
[2025-05-11 08:13] LABS: Blood Urea Nitrogen 8 mg/dl (9-20); Calcium 8.1 mg/dl (8.4-10.2); Carbon Dioxide 28 mmol/L (22-30); Chloride 104 mmol/L (98-107); Estimated Creatinine Clearance > 125 ml/min; Glucose 179 mg/dl (70-99); Potassium 3.7 mmol/L (3.5-5.1); Sodium 140 mmol/L (135-145); eGFR > 60.00
--- NOTE | 2025-05-11 08:28 | PN.DE.MGMTRT ---
Insulin Management
- -
05/11/2025: Diabetes Management Follow up
Patient admitted from [facility] 03/21 with c/o bleeding L heel wound. PMH type 1 diabetes, R BKA, L toe amputation, recent debridement L heel, Guillian [place], CHF, HTN, CKD, [place], recent admission 01/21 and 03/05 s/p
transmetatarsal L amputation and debridement. Prior to admission was receiving Lantus 30 units BID with Humalog insulin ss AC. A1C on admission 6.9%, (improved from 8.1%).
Prior to incarceration was living in a half-way per patient he will return there.
Patient awake, alert, oriented, sitting up in bed, c/o feeling sluggish and tired, able to discuss diabetes care plan.
Hgb 8.6. +C-Diff, Right knee septic arthritis with infected femoral nail. AMBER resolved Cr went up to 4.1 on 05/05/2025, now Cr 0.8, eGFR > 60 today.
POD #5 s/p right knee I&D and removal of intramedullary nail. POD# 17 s/p Left BKA.
05/10 Glucose range 354 fasting to 130 pre dinner. Received 16 units lantus BID and novolog 6 units AC with low corrective.
05/11 Fasting glucose 183. Will continue AC novolog 6 units with low corrective insulin and BID lantus 16 units.
Discussed with nurse, instructed to HOLD AC insulin if patient doesn't eat.
Will cont to follow and adjust insulin dose if necessary.
Diabetes History
- -
Type of Diabetes: 1
Pre-Admission Diabetes Regimen
05/10/25 05/11/25
07:14 07:28
Creatinine 0.8 0.8
Lab Results
Hemoglobin A1c 6.9 % (4.0-5.6) H 03/22/25 06:24
Insulin Pump Settings
IP Diabetes Regimen
05/10/25 05/10/25 05/10/25
07:14 08:58 12:00
Glucose 217 H
POC Glucose 181 H 307 H
05/10/25 05/10/25 05/11/25
17:04 21:08 07:28
Glucose 179 H
POC Glucose 130 H 224 H
05/11/25
07:37
Glucose
POC Glucose 183 H
Patient Education
--- NOTE | 2025-05-11 09:01 | W.PN.HOSP.TC ---
Addendum entered and electronically signed by Nichol Loera MD 05/11/25 13:44:
Attending�addendum:
I saw and evaluated the patient. I reviewed the resident�s note and agree with findings and plan as documented in the resident�s note.��patient seen and examined at bedside, dropped his glucose today morning.
No chest pain or shortness of breath.
Physical�exam:
GENERAL : Patient is awake, alert, oriented x3
HEENT: Nonicteric sclerae, PERRLA, EOMI. Oropharynx clear. Moist mucous membranes. Conjunctivae appear well perfused.
CHEST: Chest wall is nontender.
HEART: Regular rate and rhythm without murmurs.
LUNGS: Clear to auscultation bilaterally.
ABDOMEN: Soft, positive bowel sounds, nontender, no organomegaly.
RECTAL: Deferred.
MUSCLES/EXTREMITIES: Bilateral BKA .
NEUROLOGIC: Cranial nerves II-XII intact without motor/sensory deficit.
�
Assessment/plan:
Left foot wound dehiscence, status post BKA.
Acute blood loss anemia
Status post right BKA
Continue to biotic for now, pending final culture
Hyperkalemia, resolved
C. difficile colitis.
Continue vancomycin
History of coronary artery disease.
History of type 1 diabetes with hyperglycemia and neuropathy
CODE STATUS: Full code
DVT prophylaxis: SCDs
Diet: DM diet
Disposition: Continue antibiotic pending final culture
�
Total time spent on today�s encounter was 51 minutes which included time spent in counseling the patient/family regarding diagnosis and treatment plan as listed above, goals of care, and symptom management. Case was discussed with nursing staff,
specialists, and care coordinators/case management. All labs and imaging personally reviewed by me. Remainder the time spent in detailed review of previous records, lab data, imaging, and other medical provider documentation.
Original Note:
Today's Communication/Plan
-
Continue antibiotics. Await ID recommendations on IV vs. PO. Otherwise appears stable for discharge.
Assessment / Plan
Assessment / Plan
Sang Post is a 29M w/ PMHx significant for T1-IDDM, CIDP, HTN, GERD, CKD stage IIIA, history of osteomyelitis with R BKA who presented with left foot osteomyelitis and wound dehiscence of left transmetatarsal amputation, treated by means of L
BKA. Additionally, he has received 13U of pRBCs over the course of this admission. Patient became C. Diff positive, and treatment was initiated. Currently being evaluated for R knee suprapatellar effusion w/ aspirate showing a septic knee with a
component of CPDD. Patient is currently receiving Abx treatment for C Diff as well as septic knee.
Assessment/Plan:
-Left foot TMA site with wound dehiscence: Resolved- left BKA
-History of left foot TMA on 03/08: Resolved�left BKA
-Acute blood Loss Anemia secondary to the above: Resolved�left BKA
Vascular ultrasound showed no significant arterial stenosis on the left however Doppler waveforms suggest disease within the distal SFA/popliteal artery and infrapopliteal disease may also be present as per arterial studies. Multiple lymph nodes
were also seen in the left thigh which may be reactive.
Wound cultures grew MRSA, VRE
Blood cultures did not show any growth
Underwent ultrasound of the left lower extremity did not show any evidence of DVT
Iron supplementation continue
Continue monitoring hemoglobin daily and transfuse as needed to maintain hemoglobin greater than 7
Status postdebridement 03/25.
Pathology results came back which showed focal acute osteomyelitis and detached fragment of fibrino-purulent exudate
Patient underwent his open TMA revision and wound debridement on 04/04 -there was significant drainage postoperatively - pathology positive for acute and chronic osteomyelitis
Wound culture from 04/04 positive for Enterobacter Cloacae
Podiatry recommends nonweightbearing to the left lower extremity and continued elevation of the extremity on 2-3 pillows
Patient's lab work on the morning of 04/07/2025 had a hemoglobin at 7.1 with a hematocrit of 20.7�repeat H&H ordered which was 6.7 - 1 PRBC ordered on 04/07/25
Podiatry has tentatively planned for revision surgery of the L foot after pathology returns from most recent debridement on 04/06/25
Patient had an episode of acute blood loss on 04/08/2025 where a large amount of blood was lost from his foot wound. 1 PRBC given on 04/08/25
Scheduled for OR with podiatry for debridement vs lisfranc disarticulation on 04/13/25 - procedure tolerated well
Patient's Hgb is 7.5 on 04/15/25 - will continue to follow - if <7 then will transfuse PRBCs
Patient received 1 unit of PRBCs on 04/16/2025
Continue Holding anticoagulants postoperatively - will resume near discharge date
Appreciate hematology recommendations -they are under the impression that the patient is suffering from some element of WILBER and recommended continuing with oral iron supplement.
We have initiated anemia workup with LDH at 171, haptoglobin pending, Positive Candie test, 1+ BOBBY IgG, stool heme test, and PT/PTT were within normal limits. Based on positive Candie test, consider drug-induced immune hemolytic anemia, delayed
hemolytic transfusion reaction, or cold agglutinin disease
Abdominal ultrasound found that the liver and spleen were within normal limits in size without hepatosplenomegaly. No ascites. Tiny gallstones without sonographic features of acute cholecystitis. No bile duct dilatation.
Patient tolerated his Left BKA and is recovering postoperatively. POD 5 on 04/25/24 for L BKA
As per ID recommendations - Stump looks clean, discontinued Daptomycin and Ceftazidime/Avibactam and plan for DC
Patient spiked a fever on 04/27/25 with 101.1 temp. Reconsulted ID, CXR ordered, COVID negative, UA with reflex to culture ordered, BCs x2 ordered - BCs negative and COVID negative
Patient required additional units of pRBCs on 05/05 and 05/06. As of that date, total 13U.
On 05/06 we discussed the case with Hematology, order reticulocyte count and they will see again. No role for BM Bx.
-Right BKA: Stable/monitoring
Swelling noted; ortho consulted
Aspirate shows a septic joint, taken for washout on 05/06/25
Started on Daptomycin and Ceftazidime-Avibactam
Cultures remain pending, continue to monitor
-Hypoactive delirium likely due to opiate overdose: Resolved
-Hyperkalemia: Resolved
Patient was hyperkalemic with potassium of 5.5 on 04/14/25
Lokelma given, Insulin adjusted to home dose.
Repeat potassium on 04/15/25 is 4.9 - within normal limits.
Potassium was 5.7 on 04/18/2025�Lokelma given
Torsemide has been resumed
Potassium stable
Clostridium Difficile Infection:
C. Diff positive 05/02
Vancomycin PO 125mg qid for 10 days
Course extended by ID in the setting of additional antibiotic needs
Continue through 05/15, then prophylactic dose while on antibiotics
Patient transitioned to Dificid after allergy noted, but patient states that he felt clammy and itchy. Switched back to Vancomycin 125mg qid.
- History of ASCVD: Stable/monitoring
- Status post stent placement: Stable/monitoring
- Chest pain: Stable/monitoring
EKG/troponin negative for any acute process
ASA held
Plavix 75mg held
Statin held
Continue Ranolazine
Continue Carvedilol
Type 1 diabetes with Hyperglycemia and neuropathy: Stable/monitoring
A1C = 8.1% in January. Hba1c on 03/21/25 was 6.9 indicating improvement in overall glycemic control
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
Continue gabapentin, continue duloxetine
Lantus adjusted to 25 units, Aspart adjusted to 8 units at breakfast, lunch and dinner.
05/07: Lantus held in setting of low sugar, D5 w/ HCO3 given-
AMBER on CKD IIIa: Stable/monitoring
Continue to monitoring creatinine, has been hovering around 1.4/1.5
Urine studies show pre-renal cause, likely from hypovolemic state
Continued elevated creatinine level at 1.6 on 04/04/2025
Continue monitoring BMP.
Torsemide resumed
IV fluid support
Cr spike to 4 on 05/06; patient admitted to forgetting to straight cath himself
Nursing orders for q6h straight cath
Creatinines improving
-GERD: Stable/monitoring
Continue Pantoprazole-Chronic inflammatory demyelinating polyneuropathy: Stable/monitoring
Continue current meds, will need to arrange for PLEX in outpatient setting once discharged
FULL CODE
GI PPx: Pantoprazole
DVT Prophylaxis: SCDs
05/11: mild leukocytosis but all cell lines up; afebrile. Continue to monitor.

Imaging:
-Left foot x-ray conducted on 03/21/2025:
Status post amputation at the level of the first through fifth proximal metatarsal bones.
No radiographic evidence for osteomyelitis.- Bilateral lower extremity arterial ultrasound exam conducted on 03/23/2025:
1. Ankle-brachial indices and toe brachial indices could not be measured due to prior amputations.
2. No focal significant arterial stenosis demonstrated on the left side on duplex imaging. Spectral Doppler waveform analysis is suggestive of disease within the distal SFA/popliteal artery. Infrapopliteal disease may also be present.
3. Multiple lymph nodes are seen within the left thigh, which may be reactive.-Peripheral vascular ultrasound of the left lower extremity conducted on 03/31/2025:
No evidence of DVT of the left lower extremity.

Procedures:
03/03/2025-initial amputation of left transmetatarsal
03/25/2025-debridement of infected left metatarsal amputation
04/04/2025-revision debridement of left heel wound with calcaneal biopsy
Anticipated Discharge: 24 - 48 hours
Subjective/Interval History
-
Date of Service: May 11, 2025
Patient seen and examined. Patient endorses unchanged knee pain. States that he is still having diarrhea, otherwise no acute complaints.
Objective Data
-
Labs:
Laboratory Results
05/11/25
07:28
WBC 10.9 H
Hgb 8.6 L
Hct 27.2 L
Plt Count 757 H
Sodium 140
Potassium 3.7
Chloride 104
Carbon Dioxide 28
BUN 8 L
Creatinine 0.8
Glucose 179 H
Calcium 8.1 L
Vital Signs:
Vital Signs
Temp Pulse Resp BP Pulse Ox
98.9 F 82 18 198/101 96
05/11/25 07:25 05/11/25 07:25 05/11/25 07:25 05/11/25 07:25 05/11/25 07:25
I&O
05/10/25 05/11/25 05/12/25
06:59 06:59 06:59
Intake Total 1920 / 1920 124 / 124
Output Total 3200 / 3200 1200 / 1200
Balance -1280 / -1280 -1200 / -1200 124 / 124
Review of Systems
-
History Source: Patient
All other systems: Reviewed and negative
Physical Exam
-
General: No Apparent Distress, Comfortable and Conversant
HEENT: Normocephalic, Atraumatic and Moist Mucous Membranes
Respiratory: Clear to Auscultation and Non Labored Respirations; Negative Wheezes, Rales, Rhonchi or Crackles
Cardiac: Regular Rhythm and S1/S2
GI: Soft, Nontender, Nondistended and Normal Bowel Sounds
Musculoskeletal: Other (Right knee BKA dressing c/d/i)
Skin: Warm
Neuro: Awake, Alert and Oriented
Psych: Calm
Data Reviewed
-
Labs: Labs Reviewed by me and Discussed with Patient
[2025-05-11] MEDS: LANTUS 0.16 UNITS SC ×2 (09:31→21:04)
[2025-05-11] MEDS: ASPIR LOW (ENTERIC COATED) 81 MG PO (09:33)
[2025-05-11] MEDS: COLACE 100 MG PO (09:33)
[2025-05-11] MEDS: CYMBALTA DELAYED RELEASE 30 MG PO (09:33)
[2025-05-11] MEDS: NEURONTIN 300 MG PO ×3 (09:33→21:00)
[2025-05-11] MEDS: PROTONIX 40 MG PO (09:33)
[2025-05-11] MEDS: IMDUR (EXTENDED RELEASE) 60 MG PO (09:33)
[2025-05-11] MEDS: RANEXA EXTENDED RELEASE 1000 MG PO ×2 (09:33→21:01)
[2025-05-11] MEDS: COREG 25 MG PO ×2 (09:33→20:59)
[2025-05-11] MEDS: DESENEX/MITRAZOL/ZEASORB 1 APPLIC TOPICAL ×2 (09:34→20:59)
[2025-05-11] MEDS: SENOKOT 17.2 MG PO (09:34)
[2025-05-11] MEDS: HEPARIN 5000 UNITS SC ×2 (09:34→21:00)
[2025-05-11] MEDS: FEOSOL 325 MG PO ×2 (09:34→21:01)
[2025-05-11] MEDS: NOVOLOG FLEXPEN 6 UNITS SC ×3 (09:35→18:57)
[2025-05-11] MEDS: FLORASTOR 250 MG PO ×2 (09:35→21:01)
[2025-05-11 12:02] LABS: Glucose - Point of Care 184 mg/dl (70-99)
--- NOTE | 2025-05-11 14:58 | W.PN.ID1 ---
Date of Service
Date of Service: May 11, 2025
Today's Communication
Await final OR cx.
Assessment / Plan
# Possible right Knee Septic Arthritis with infected femoral nail
- 9.4K WBC, 95%PMNS, + CPPD crystals
- 95K WBC, 98%PMNS, no crystals, aerobic and anaerobic cultures negative
# Right Knee CPPD disease
# Fever - resolved
# Leukocytosis - resolved
# AMBER - improving
- Arthrocentesis cx's negative (off abx)
- 05/06 purulent material was encountered within the knee in the OR, labeled proximal femur and sent for culture
OR cultures: No growth to date (off abx)
- continue daptomycin and avycaz day 5 for now
- If final OR cx's negative, dc antibiotics and observe.
Consider treating pseudogout with colchicine.
# C difficile
- Continue po Vancomycin (d10 of 14) through 05/15.
# Osteomyelitis Left foot TMA site wound dehiscence with necrosis
- Failed multiple revisions
- 04/21/25 s/p left BKA
- s/p daptomycin and ceftaz/avibactam, dc'd on 04/25.
- Wound Care.
# Right BKA stump superficial scab over bony prominence.
- Possible eventual revision of stump
# Multiple abx allergies: PCN, cephalosporin, meropenem, Vancomycin; tolerated Avyzaz
# Incarcerated
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
Diabetes mellitus
CAD status post PCI
CHF
hx CKD3
Hypertension
Guillain-Potts� syndrome/CIDP, plasma exchange q 2 months
PAD status post right BKA
Left hallux and second toe osteomyelitis status post amputation and debridement of left heel ulcer January 21, 2025
Left foot TMA, I+D left heel wound and bone biopsy of heel (neg osteo) Mar 08, 2025 (path surgical cure)
Chief Complaint
-: Other (Foot wound)
Subjective / Review of Systems
Right knee pain stable. Last bowel movement was last night.
Vital Signs / Physical Exam
Vital Signs
Vital Signs
Temp Pulse Resp BP Pulse Ox
98.9 F 82 18 198/101 96
05/11/25 07:25 05/11/25 07:25 05/11/25 07:25 05/11/25 07:25 05/11/25 07:25
Physical Exam
Constitutional: No Acute Distress
Cardiovascular: Regular Rate and S1/S2
Pulmonary: Clear
Gastrointestinal: Soft, Non Tender, Non Distended and Normal Bowel Sounds
Musculoskeletal: Other (Right knee no erythema, + edema, + tenderness to thigh)
Wound: Other (R AKA stump wound with dry eschar)
Neurological: AO x 3
Objective Data
Lab Data
Lab Results
05/11/25 07:28
05/11/25 07:28
ESR Cancelled 04/17/25 10:48
PT 13.7 Sec (11.4-14.6) 04/17/25 06:33
INR 1.02 04/17/25 06:33
APTT 33.8 Sec (23.4-35.0) 04/17/25 06:33
Estimated Creat Clear > 125 ml/min 05/11/25 07:28
Lactic Acid 0.8 mmol/L (0.7-2.0) 03/25/25 01:16
Total Bilirubin 0.4 mg/dl (0.2-1.3) 05/05/25 07:12
AST 13 U/L (17-59) L 05/05/25 07:12
ALT 15 U/L (0-50) 05/05/25 07:12
Alkaline Phosphatase 141 U/L (38-126) H 05/05/25 07:12
C-Reactive Protein > 270.00 mg/L (0.0-10.00) H 05/06/25 07:28
Most recent labs reviewed.
Micro Results:
05/05/25 16:00 Body Fluid Culture - Final
Knee - Right No Growth After 72 Hours
Gram Stain - Final
05/05/25 07:48 Anaerobic Culture - Final
Joint Fluid NO ANAEROBES ISOLATED
05/05/25 10:02 Blood Culture - Final
Blood/Venous No Growth - Final Report
05/05/25 09:08 Blood Culture - Final
Blood/Venous No Growth - Final Report
05/06/25 17:47 Anaerobic Culture - Preliminary
Femur - Right NO ANAEROBES ISOLATED
05/06/25 16:08 Anaerobic Culture - Preliminary
Knee - Right NO ANAEROBES ISOLATED
05/06/25 16:08 Wound Culture - Preliminary
Knee - Right No growth
Gram Stain - Preliminary
05/06/25 17:47 Wound Culture - Preliminary
Femur - Right No growth
Gram Stain - Preliminary
05/05/25 10:10 Urine Culture - Final
Urine Anna albicans
05/05/25 10:49 Influenza Types A & B (JOSE) - Final
Nasal Swab Negative for Influenza A & B, NAAT
Negative results must be combined with clinical observations
and patient history.
Nucleic Acid Amplification test (NAAT)performed on the
[employer] platform.
05/02/25 11:42 C. difficile GDH Antigen & Toxins - Final
Feces/Stool Toxigenic C.difficile Positive
04/27/25 09:32 Blood Culture - Final
Blood/Venous No Growth - Final Report
04/27/25 08:33 Blood Culture - Final
Blood/Venous No Growth - Final Report
04/27/25 10:24 Urine Culture - Final
Urine NO GROWTH
03/25/25 16:52 Fungal Culture - Final
Foot - Left Anna albicans
04/13/25 16:07 Wound Culture - Final
Foot - Left Enterobacter cloacae
Gram Stain - Final
04/13/25 16:07 Anaerobic Culture - Final
Foot - Left NO ANAEROBES ISOLATED
04/04/25 16:30 Wound Culture - Final
Foot - Left Enterobacter cloacae
Gram Stain - Final
04/04/25 16:30 Anaerobic Culture - Final
Foot - Left NO ANAEROBES ISOLATED
03/31/25 10:51 Blood Culture - Final
Blood/Venous No Growth - Final Report
03/31/25 10:22 Blood Culture - Final
Blood/Venous No Growth - Final Report
03/25/25 09:33 Blood Culture - Final
Blood/Venous No Growth - Final Report
03/25/25 16:56 Wound Culture - Final
Foot - Left Staph aureus MRSA
Enterococcus faecalis - VRE
Gram Stain - Final
03/25/25 16:56 Anaerobic Culture - Final
Foot - Left NO ANAEROBES ISOLATED
03/25/25 16:52 Wound Culture - Final
Foot - Left Staph aureus MRSA
Enterococcus faecalis - VRE
Gram Stain - Final
03/25/25 16:52 Anaerobic Culture - Final
Foot - Left NO ANAEROBES ISOLATED
03/25/25 01:16 Blood Culture - Final
Blood/Venous No Growth - Final Report
03/27/25 10:35 Urine Culture - Final
Urine Anna albicans
03/24/25 12:51 Salmonella/Shigella Culture - Final
Feces/Stool No Salmonella, Shigella, Aeromonas or Plesiomonas species
isolated.
Campylobacter Culture - Final
No Campylobacter species isolated.
Shiga Toxin Test - Final
No E. coli Shiga Toxin 1 or 2 detected.
03/21/25 21:00 Blood Culture - Final
Blood/Venous No Growth - Final Report
03/21/25 21:00 Blood Culture - Final
Blood/Venous No Growth - Final Report
03/21/25 21:16 Wound Culture - Final
Foot - Left Enterococcus faecalis - VRE
Anna albicans
Gram Stain - Final
03/24/25 12:53 C. difficile GDH Antigen & Toxins - Final
Feces/Stool C. difficile antigen positive, toxin negative.
Clostridium difficile present, but toxin not detected.
Patient may be a carrier, colonized with nontoxinogenic
strain or the level of toxin in sample is below detection
limits. This information should be used in conjunction with
the patient's clinical history.
03/22/25 13:07 MRSA Screen - Final
Nose No Methicillin Resistant Staphylococcus aureus isolated.
Care Review
Plan reviewed with: Physician (Dr. Novoa)
[2025-05-11 15:34] VITALS: BP 154/90
--- NOTE | 2025-05-11 16:01 | CM ---
Chart reviewed. Vanco extended to 05/15
D/c'd keena
Awaiting final OR cx for abx
Updated [facility], spoke w/ a nurse who confirmed they have vanco, updated that abx was extended to 05/15.
[facility]
Report: [phone]

Plan: Return to [facility]
[2025-05-11 16:59] LABS: Glucose - Point of Care 180 mg/dl (70-99)
[2025-05-11] MEDS: CUBICIN 18 MG IV (17:48)
[2025-05-11] MEDS: SENOKOT PO (21:00)
[2025-05-11] MEDS: REMERON 30 MG PO (21:00)
[2025-05-11] MEDS: COLACE PO (21:01)
[2025-05-11 21:08] LABS: Glucose - Point of Care 137 mg/dl (70-99)
[2025-05-11 23:05] VITALS: BP 159/75
--- NOTE | 2025-05-12 | PTCARENOTE ---
patient was offered straight cath, refused, and asked to wait until 0600
[2025-05-12] MEDS: FIRVANQ 125 MG PO ×4 (05:06→23:39)
[2025-05-12] MEDS: DILAUDID 0.5 MG IV ×4 (05:07→23:41)
[2025-05-12 06:00] VITALS: BMI 31.0
--- NOTE | 2025-05-12 06:36 | PTCARENOTE ---
Patient refused dressing change of left stump
[2025-05-12 07:00] VITALS: BP 166/89
[2025-05-12 08:24] LABS: Glucose - Point of Care 154 mg/dl (70-99)
[2025-05-12] MEDS: LANTUS 0.16 UNITS SC ×2 (08:36→22:34)
[2025-05-12] MEDS: NEURONTIN 300 MG PO ×3 (08:36→22:22)
[2025-05-12] MEDS: ASPIR LOW (ENTERIC COATED) 81 MG PO (08:37)
[2025-05-12] MEDS: CYMBALTA DELAYED RELEASE 30 MG PO (08:37)
[2025-05-12] MEDS: IMDUR (EXTENDED RELEASE) 60 MG PO (08:37)
[2025-05-12] MEDS: HEPARIN 5000 UNITS SC ×2 (08:37→22:33)
[2025-05-12] MEDS: RANEXA EXTENDED RELEASE 1000 MG PO ×2 (08:37→22:22)
[2025-05-12] MEDS: FEOSOL 325 MG PO ×2 (08:37→22:31)
[2025-05-12] MEDS: PROTONIX 40 MG PO (08:37)
[2025-05-12] MEDS: DESENEX/MITRAZOL/ZEASORB 1 APPLIC TOPICAL ×2 (08:38→22:33)
[2025-05-12] MEDS: SENOKOT PO ×2 (08:38→22:32)
--- NOTE | 2025-05-12 08:38 | PN.DE.MGMTRT ---
Insulin Management
- -
05/12/2025: Diabetes Management Follow up
Patient admitted from [facility] 03/21 with c/o bleeding L heel wound. PMH type 1 diabetes, R BKA, L toe amputation, recent debridement L heel, [place], CHF, HTN, CKD, [place], recent admission 01/21 and 03/05 s/p
transmetatarsal L amputation and debridement. Prior to admission was receiving Lantus 30 units BID with Humalog insulin ss AC. A1C on admission 6.9%, (improved from 8.1%).
Prior to incarceration was living in a skilled nursing per patient he will return there.
Patient awake, alert, oriented, sitting up in bed, able to discuss diabetes care plan.
Hgb 8.5. +C-Diff, Right knee septic arthritis with infected femoral nail. AMBER resolved Cr went up to 4.1 on 05/05/2025, now Cr 0.8, eGFR > 60 today.
POD #6 s/p right knee I&D and removal of intramedullary nail. POD# 17 s/p Left BKA.
05/11 Fasting glucose 183. Glucose range 184 to 137.
05/12 Will continue AC novolog 6 units with low corrective insulin and BID lantus 16 units.
Discussed with nurse, instructed to HOLD AC insulin if patient doesn't eat.
Will cont to follow and adjust insulin dose if necessary.
Diabetes History
- -
Type of Diabetes: 1
Pre-Admission Diabetes Regimen
Lab Results
Hemoglobin A1c 6.9 % (4.0-5.6) H 03/22/25 06:24
Insulin Pump Settings
IP Diabetes Regimen
05/11/25 05/11/25 05/11/25
12:01 16:57 21:06
POC Glucose 184 H 180 H 137 H
05/12/25
08:23
POC Glucose 154 H
Meal type: Lunch
Meal type: Breakfast
Amount consumed: 100%
Amount consumed: 100%
Patient Education
[2025-05-12] MEDS: COLACE PO ×2 (08:39→22:31)
[2025-05-12] MEDS: FLORASTOR 250 MG PO ×2 (08:40→22:31)
[2025-05-12] MEDS: COREG 25 MG PO ×2 (08:43→22:32)
[2025-05-12] MEDS: NOVOLOG FLEXPEN 6 UNITS SC ×3 (09:06→17:18)
[2025-05-12 09:13] LABS: Hematocrit 26.2 % (39.0-52.0); Hemoglobin 8.5 g/dL (13.0-18.0); Mean Corp Hgb Conc. 32.4 g/dL (33.0-37.0); Mean Corpuscular Volume 86.2 fL (80.0-94.0); Platelet Count 728 10^3/uL (130-400); Red Cell Dist. Width 15.9 % (11.5-14.5)
[2025-05-12 09:30] LABS: Blood Urea Nitrogen 6 mg/dl (9-20); Calcium 8.2 mg/dl (8.4-10.2); Carbon Dioxide 29 mmol/L (22-30); Chloride 104 mmol/L (98-107); Estimated Creatinine Clearance > 125 ml/min; Glucose 144 mg/dl (70-99); Potassium 3.9 mmol/L (3.5-5.1); Sodium 137 mmol/L (135-145); eGFR > 60.00
--- NOTE | 2025-05-12 09:59 | W.PN.UPDATE ---
Update Note
Progress Note Update
Seen and evaluated. Left BKA site remains nicely healed. No signs of infection or any other concerning problems. Right sided prior BKA area of ulceration appears callused or healed over somewhat. There is skin now, no open/ulceration. He has
had recent knee washout with extensive incisions. (Right lower extremity). Therefore discussed with him that based on the fact that that ulceration area seems healed, and he has these incisions, would recommend no further intervention on the BKA
stump from our standpoint at this time. Discussed with them also that if we do do a revision, we have to be prepared for possible revision to [id number] amputation. He he understands. As far as the left side it is healing well. Will see him
in the office in about a month to see and make sure the left side is fully healed and he can be fitted for prosthetic.
--- NOTE | 2025-05-12 11:19 | W.PN.HOSP.TC ---
Addendum entered and electronically signed by Nichol Loera MD 05/12/25 13:54:
Attending�addendum:
I saw and evaluated the patient. I reviewed the resident�s note and agree with findings and plan as documented in the resident�s note.��patient seen and examined at bedside, was coughing, still cultures been negative.
Physical�exam:
GENERAL : Patient is awake, alert, oriented x3
HEENT: Nonicteric sclerae, PERRLA, EOMI. Oropharynx clear. Moist mucous membranes. Conjunctivae appear well perfused.
CHEST: Chest wall is nontender.
HEART: Regular rate and rhythm without murmurs.
LUNGS: Clear to auscultation bilaterally.
ABDOMEN: Soft, positive bowel sounds, nontender, no organomegaly.
RECTAL: Deferred.
MUSCLES/EXTREMITIES: Bilateral BKA .
NEUROLOGIC: Cranial nerves II-XII intact without motor/sensory deficit.
�
Assessment/plan:
Left foot wound dehiscence, status post BKA.
Acute blood loss anemia
Status post right BKA
Continue to biotic for now, pending final culture
Hyperkalemia, resolved
C. difficile colitis.
Continue vancomycin oral.
Concern for pseudogout.
Continue short-term steroid
History of coronary artery disease.
History of type 1 diabetes with hyperglycemia and neuropathy
CODE STATUS: Full code
DVT prophylaxis: SCDs
Diet: DM diet
Disposition: continue Avycaz pending final culture. start short-term steroid
�
Total time spent on today�s encounter was 51 minutes which included time spent in counseling the patient/family regarding diagnosis and treatment plan as listed above, goals of care, and symptom management. Case was discussed with nursing staff,
specialists, and care coordinators/case management. All labs and imaging personally reviewed by me. Remainder the time spent in detailed review of previous records, lab data, imaging, and other medical provider documentation.
Original Note:
Today's Communication/Plan
-
Await cultures, abx reccs from ID; CXR and UA reflex to ucx today
Assessment / Plan
Assessment / Plan
Sang Post is a 29M w/ PMHx significant for T1-IDDM, CIDP, HTN, GERD, CKD stage IIIA, history of osteomyelitis with R BKA who presented with left foot osteomyelitis and wound dehiscence of left transmetatarsal amputation, treated by means of L
BKA. Additionally, he has received 13U of pRBCs over the course of this admission. Patient became C. Diff positive, and treatment was initiated. Currently being evaluated for R knee suprapatellar effusion w/ aspirate showing a septic knee with a
component of CPDD. Patient is currently receiving Abx treatment for C Diff as well as septic knee.
Assessment/Plan:
-Left foot TMA site with wound dehiscence: Resolved- left BKA
-History of left foot TMA on 03/08: Resolved�left BKA
-Acute blood Loss Anemia secondary to the above: Resolved�left BKA
Vascular US showed no significant arterial stenosis on the left however Doppler waveforms suggest disease within the distal SFA/popliteal artery and infrapopliteal disease may also be present as per arterial studies.
Wound cultures grew MRSA, VRE
Blood cultures did not show any growth
Underwent ultrasound of the left lower extremity did not show any evidence of DVT
Iron supplementation continue
Continue monitoring hemoglobin daily and transfuse as needed to maintain hemoglobin greater than 7
Status postdebridement 03/25.
Pathology showed focal acute osteomyelitis and detached fragment of fibrino-purulent exudate
Patient underwent his open TMA revision and wound debridement on 04/04 -there was significant drainage postoperatively - pathology positive for acute and chronic osteomyelitis
Wound culture from 04/04 positive for Enterobacter Cloacae
Podiatry has tentatively planned for revision surgery of the L foot after pathology returns from most recent debridement on 04/06/25
Scheduled for OR with podiatry for debridement vs lisfranc disarticulation on 04/13/25 - procedure tolerated well
Continue Holding anticoagulants postoperatively - will resume near discharge date
Appreciate hematology recommendations -they are under the impression that the patient is suffering from some element of WILBER and recommended continuing with oral iron supplement.
We have initiated anemia workup with LDH at 171, haptoglobin pending, Positive Candie test, 1+ BOBBY IgG, stool heme test, and PT/PTT were within normal limits. Based on positive Candie test, consider drug-induced immune hemolytic anemia, delayed
hemolytic transfusion reaction, or cold agglutinin disease
Abdominal ultrasound found that the liver and spleen were within normal limits in size without hepatosplenomegaly. No ascites. Tiny gallstones without sonographic features of acute cholecystitis. No bile duct dilatation.
Patient tolerated his Left BKA and is recovering postoperatively. POD 5 on 04/25/24 for L BKA
As per ID recommendations - Stump looks clean, discontinued Daptomycin and Ceftazidime/Avibactam and plan for DC
Patient spiked a fever on 04/27/25 with 101.1 temp. Reconsulted ID, CXR ordered, COVID negative, UA with reflex to culture ordered, BCs x2 ordered - BCs negative and COVID negative
Patient required additional units of pRBCs on 05/05 and 05/06. As of that date, total 13U.
On 05/06 we discussed the case with Hematology, order reticulocyte count and they will see again. No role for BM Bx.
-Right BKA: Stable/monitoring
Swelling noted; ortho consulted
Aspirate shows a septic joint, taken for washout on 05/06/25
Started on Daptomycin and Ceftazidime-Avibactam
Cultures remain pending, continue to monitor
-Hypoactive delirium likely due to opiate overdose: Resolved
-Hyperkalemia: Resolved
Patient was hyperkalemic with potassium of 5.5 on 04/14/25
Lokelma given, Insulin adjusted to home dose.
Repeat potassium on 04/15/25 is 4.9 - within normal limits.
Potassium was 5.7 on 04/18/2025�Lokelma given
Torsemide has been resumed
Potassium stable
Clostridium Difficile Infection:
C. Diff positive 05/02
Vancomycin PO 125mg qid for 10 days
Course extended by ID in the setting of additional antibiotic needs
Continue through 05/15, then prophylactic dose while on antibiotics
Patient initially transitioned to Dificid after allergy noted, but patient states that he felt clammy and itchy. Switched back to Vancomycin 125mg qid.
- History of ASCVD: Stable/monitoring
- Status post stent placement: Stable/monitoring
- Chest pain: Stable/monitoring
EKG/troponin negative for any acute process
ASA held
Plavix 75mg held
Statin held
Continue Ranolazine
Continue Carvedilol
Type 1 diabetes with Hyperglycemia and neuropathy: Stable/monitoring
A1C = 8.1% in January. Hba1c on 03/21/25 was 6.9 indicating improvement in overall glycemic control
Diabetes [employer]PER[employer]OR consulted, recommendations appreciated
Continue gabapentin, continue duloxetine
Lantus adjusted to 25 units, Aspart adjusted to 8 units at breakfast, lunch and dinner.
05/07: Lantus held in setting of low sugar, D5 w/ HCO3 given-
AMBER on CKD IIIa: Stable/monitoring
Continue to monitoring creatinine, has been hovering around 1.4/1.5
Urine studies show pre-renal cause, likely from hypovolemic state
Continued elevated creatinine level at 1.6 on 04/04/2025
Continue monitoring BMP.
Torsemide resumed
IV fluid support
Cr spike to 4 on 05/06; patient admitted to forgetting to straight cath himself
Nursing orders for q6h straight cath
Creatinines improving
-GERD: Stable/monitoring
Continue Pantoprazole-Chronic inflammatory demyelinating polyneuropathy: Stable/monitoring
Continue current meds, will need to arrange for PLEX in outpatient setting once discharged
FULL CODE
GI PPx: Pantoprazole
DVT Prophylaxis: SCDs
05/11: mild leukocytosis but all cell lines up; afebrile. Continue to monitor.
05/12: continued very mild leukocytosis, patient now endorses cough and painful urination; ordered CXR and UA; await OR cultures; if cx negative will start low dose colchicine

Imaging:
-Left foot x-ray conducted on 03/21/2025:
Status post amputation at the level of the first through fifth proximal metatarsal bones.
No radiographic evidence for osteomyelitis.- Bilateral lower extremity arterial ultrasound exam conducted on 03/23/2025:
1. Ankle-brachial indices and toe brachial indices could not be measured due to prior amputations.
2. No focal significant arterial stenosis demonstrated on the left side on duplex imaging. Spectral Doppler waveform analysis is suggestive of disease within the distal SFA/popliteal artery. Infrapopliteal disease may also be present.
3. Multiple lymph nodes are seen within the left thigh, which may be reactive.-Peripheral vascular ultrasound of the left lower extremity conducted on 03/31/2025:
No evidence of DVT of the left lower extremity.

Procedures:
03/03/2025-initial amputation of left transmetatarsal
03/25/2025-debridement of infected left metatarsal amputation
04/04/2025-revision debridement of left heel wound with calcaneal biopsy
Anticipated Discharge: 24 - 48 hours
Subjective/Interval History
-
Date of Service: May 12, 2025
Patient seen and examined while resting in bed.
States that he was coughing all night, was bringing up some mucus last night, green.
Had an episode of vomit, though not necessarily nauseous, feels may have been due to cough.
Otherwise endorses no acute complaints.
Objective Data
-
Labs:
Laboratory Results
05/12/25
08:31
WBC 11.8 H
Hgb 8.5 L
Hct 26.2 L
Plt Count 728 H
Sodium 137
Potassium 3.9
Chloride 104
Carbon Dioxide 29
BUN 6 L
Creatinine 0.8
Glucose 144 H
Calcium 8.2 L
Vital Signs:
Vital Signs
Temp Pulse Resp BP Pulse Ox
97.8 F 81 18 175/93 96
05/12/25 07:00 05/12/25 08:43 05/12/25 07:00 05/12/25 08:43 05/12/25 07:00
I&O
05/11/25 05/12/25 05/13/25
06:59 06:59 06:59
Intake Total 2043 / 2043
Output Total 1200 / 1200 2500 / 2500
Balance -1200 / -1200 -456 / -456
Review of Systems
-
History Source: Patient
All other systems: Reviewed and negative
Physical Exam
-
General: No Apparent Distress and Comfortable
HEENT: Normocephalic, Atraumatic and Moist Mucous Membranes
Respiratory: Clear to Auscultation and Non Labored Respirations; Negative Wheezes, Rales, Rhonchi or Crackles
Cardiac: Regular Rhythm and S1/S2
GI: Soft, Nontender and Nondistended
Musculoskeletal: Other (R BKA and L BKA stable)
Skin: Warm
Neuro: Awake, Alert and Oriented
Psych: Calm
Data Reviewed
-
Labs: Labs Reviewed by me and Discussed with Patient
--- NOTE | 2025-05-12 11:28 | W.PN.ID1 ---
Date of Service
Date of Service: May 12, 2025
Today's Communication
DC daptomycin.
Can continue Avycaz pending UA/Ucx.
Assessment / Plan
# Possible right Knee Septic Arthritis with infected femoral nail
- 9.4K WBC, 95%PMNS, + CPPD crystals
- 95K WBC, 98%PMNS, no crystals, aerobic and anaerobic cultures negative
# Right Knee CPPD disease
# Fever - resolved
# Leukocytosis - slight trend up
# AMBER - resolved
- Arthrocentesis cx's negative (off abx)
- 05/06 purulent material was encountered within the knee in the OR, labeled proximal femur and sent for culture
Final OR cultures: No growth (off abx)
- Discontinue daptomycin (d6)
- Can continue Avycaz pending UA/Ucx.
-Colchicine for pseudogout is contraindicated with carvedilol, ranolazine.
- Consider short course steroid vs obsservation.
# Dysuria
- For self-cath UA/relfex Ucx
- Doubt UTI while on Avycaz d6 for above.
- Can continue Avycaz pending UA/Ucx.
# C difficile
- Continue po Vancomycin (d11 of 14) through 05/15.
# s/p Osteomyelitis Left foot TMA site wound dehiscence with necrosis
- Failed multiple revisions
- 04/21/25 s/p left BKA
- s/p daptomycin and ceftaz/avibactam, dc'd on 04/25.
- Wound Care.
# Right BKA stump superficial scab over bony prominence.
-Per vascular no plans for revision at this time.
# Multiple abx allergies: PCN, cephalosporin, meropenem, Vancomycin; tolerated Avyzaz
# Incarcerated
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
Diabetes mellitus
CAD status post PCI
CHF
hx CKD3
Hypertension
Guillain-Potts� syndrome/CIDP, plasma exchange q 2 months
PAD status post right BKA
Left hallux and second toe osteomyelitis status post amputation and debridement of left heel ulcer January 21, 2025
Left foot TMA, I+D left heel wound and bone biopsy of heel (neg osteo) Mar 08, 2025 (path surgical cure)
Chief Complaint
-: Other (Foot wound)
Subjective / Review of Systems
c/o burning during urine straight cath. Will submit urine sample.
Vital Signs / Physical Exam
Vital Signs
Vital Signs
Temp Pulse Resp BP Pulse Ox
97.8 F 81 18 175/93 96
05/12/25 07:00 05/12/25 08:43 05/12/25 07:00 05/12/25 08:43 05/12/25 07:00
Physical Exam
Constitutional: No Acute Distress
Cardiovascular: Regular Rate and S1/S2
Pulmonary: Clear
Gastrointestinal: Soft, Non Tender, Non Distended and Normal Bowel Sounds
Musculoskeletal: Other (Right knee no erythema, + edema, + tenderness to thigh)
Wound: Other (R AKA stump wound with dry eschar)
Neurological: AO x 3
Objective Data
Lab Data
Lab Results
05/12/25 08:31
05/12/25 08:31
ESR Cancelled 04/17/25 10:48
PT 13.7 Sec (11.4-14.6) 04/17/25 06:33
INR 1.02 04/17/25 06:33
APTT 33.8 Sec (23.4-35.0) 04/17/25 06:33
Estimated Creat Clear > 125 ml/min 05/12/25 08:31
Lactic Acid 0.8 mmol/L (0.7-2.0) 03/25/25 01:16
Total Bilirubin 0.4 mg/dl (0.2-1.3) 05/05/25 07:12
AST 13 U/L (17-59) L 05/05/25 07:12
ALT 15 U/L (0-50) 05/05/25 07:12
Alkaline Phosphatase 141 U/L (38-126) H 05/05/25 07:12
C-Reactive Protein > 270.00 mg/L (0.0-10.00) H 05/06/25 07:28
Most recent labs reviewed.
Micro Results:
05/06/25 17:47 Wound Culture - Final
Femur - Right No growth
Gram Stain - Final
05/06/25 17:47 Anaerobic Culture - Final
Femur - Right NO ANAEROBES ISOLATED
05/06/25 16:08 Wound Culture - Final
Knee - Right No growth
Gram Stain - Final
05/06/25 16:08 Anaerobic Culture - Final
Knee - Right NO ANAEROBES ISOLATED
05/05/25 16:00 Body Fluid Culture - Final
Knee - Right No Growth After 72 Hours
Gram Stain - Final
05/05/25 07:48 Anaerobic Culture - Final
Joint Fluid NO ANAEROBES ISOLATED
05/05/25 10:02 Blood Culture - Final
Blood/Venous No Growth - Final Report
05/05/25 09:08 Blood Culture - Final
Blood/Venous No Growth - Final Report
05/05/25 10:10 Urine Culture - Final
Urine Anna albicans
05/05/25 10:49 Influenza Types A & B (JOSE) - Final
Nasal Swab Negative for Influenza A & B, NAAT
Negative results must be combined with clinical observations
and patient history.
Nucleic Acid Amplification test (NAAT)performed on the
[employer] platform.
05/02/25 11:42 C. difficile GDH Antigen & Toxins - Final
Feces/Stool Toxigenic C.difficile Positive
04/27/25 09:32 Blood Culture - Final
Blood/Venous No Growth - Final Report
04/27/25 08:33 Blood Culture - Final
Blood/Venous No Growth - Final Report
04/27/25 10:24 Urine Culture - Final
Urine NO GROWTH
03/25/25 16:52 Fungal Culture - Final
Foot - Left Anna albicans
04/13/25 16:07 Wound Culture - Final
Foot - Left Enterobacter cloacae
Gram Stain - Final
04/13/25 16:07 Anaerobic Culture - Final
Foot - Left NO ANAEROBES ISOLATED
04/04/25 16:30 Wound Culture - Final
Foot - Left Enterobacter cloacae
Gram Stain - Final
04/04/25 16:30 Anaerobic Culture - Final
Foot - Left NO ANAEROBES ISOLATED
03/31/25 10:51 Blood Culture - Final
Blood/Venous No Growth - Final Report
03/31/25 10:22 Blood Culture - Final
Blood/Venous No Growth - Final Report
03/25/25 09:33 Blood Culture - Final
Blood/Venous No Growth - Final Report
03/25/25 16:56 Wound Culture - Final
Foot - Left Staph aureus MRSA
Enterococcus faecalis - VRE
Gram Stain - Final
03/25/25 16:56 Anaerobic Culture - Final
Foot - Left NO ANAEROBES ISOLATED
03/25/25 16:52 Wound Culture - Final
Foot - Left Staph aureus MRSA
Enterococcus faecalis - VRE
Gram Stain - Final
03/25/25 16:52 Anaerobic Culture - Final
Foot - Left NO ANAEROBES ISOLATED
03/25/25 01:16 Blood Culture - Final
Blood/Venous No Growth - Final Report
03/27/25 10:35 Urine Culture - Final
Urine Anna albicans
03/24/25 12:51 Salmonella/Shigella Culture - Final
Feces/Stool No Salmonella, Shigella, Aeromonas or Plesiomonas species
isolated.
Campylobacter Culture - Final
No Campylobacter species isolated.
Shiga Toxin Test - Final
No E. coli Shiga Toxin 1 or 2 detected.
03/21/25 21:00 Blood Culture - Final
Blood/Venous No Growth - Final Report
03/21/25 21:00 Blood Culture - Final
Blood/Venous No Growth - Final Report
03/21/25 21:16 Wound Culture - Final
Foot - Left Enterococcus faecalis - VRE
Anna albicans
Gram Stain - Final
03/24/25 12:53 C. difficile GDH Antigen & Toxins - Final
Feces/Stool C. difficile antigen positive, toxin negative.
Clostridium difficile present, but toxin not detected.
Patient may be a carrier, colonized with nontoxinogenic
strain or the level of toxin in sample is below detection
limits. This information should be used in conjunction with
the patient's clinical history.
03/22/25 13:07 MRSA Screen - Final
Nose No Methicillin Resistant Staphylococcus aureus isolated.
Care Review
Plan reviewed with: Physician (Dr. Loera)
[2025-05-12 11:55] VITALS: BP 160/90
[2025-05-12 12:27] LABS: Glucose - Point of Care 105 mg/dl (70-99)
[2025-05-12] MEDS: NOVOLOG FLEXPEN-LOW RESISTANCE SC (13:08)
[2025-05-12 13:14] LABS: Urine Character Clear (Clear)
[2025-05-12 13:22] LABS: Urine White Cell 16-20 /HPF (0-5)
[2025-05-12] MEDS: DELTASONE 20 MG PO (14:06)
[2025-05-12 15:47] VITALS: BP 169/91
[2025-05-12 16:42] VITALS: BP 179/106; PULSE 84; O2SAT 98
[2025-05-12 17:16] LABS: Glucose - Point of Care 168 mg/dl (70-99)
[2025-05-12] MEDS: NOVOLOG FLEXPEN-LOW RESISTANCE 1 UNITS SC (17:18)
[2025-05-12 17:21] VITALS: BP 176/99
[2025-05-12] MEDS: APRESOLINE 10 MG IV ×2 (17:36→23:39)
--- NOTE | 2025-05-12 17:46 | PTCARENOTE ---
pt with elevated bps throughout the shift. PRN hydralazine order obtained, meds administered per order. plan of care continues to be followed.
[2025-05-12 18:36] VITALS: BP 144/82
[2025-05-12 22:28] LABS: Glucose - Point of Care 256 mg/dl (70-99)
[2025-05-12] MEDS: REMERON 30 MG PO (22:34)
[2025-05-13] MEDS: DILAUDID 0.5 MG IV ×2 (05:42→12:25)
[2025-05-13] MEDS: FIRVANQ 125 MG PO ×3 (05:42→17:30)
[2025-05-13 06:00] VITALS: BMI 30.9
[2025-05-13 07:00] VITALS: BP 184/96
--- NOTE | 2025-05-13 07:31 | PN.DE.MGMTRT ---
Insulin Management
- -
05/13/2025: Diabetes Management Follow up
Patient admitted from [facility] 03/21 with c/o bleeding L heel wound. PMH: T1DM, R BKA, L toe amputation, recent debridement L heel, [place], CHF, HTN, CKD, [place], recent admission 01/21 and 03/05 s/p transmetatarsal L
amputation and debridement. Prior to admission was receiving Lantus 30 units BID with Humalog insulin ss AC. A1C on admission 6.9%, (improved from 8.1%).
Prior to incarceration was living in a detention per patient he will return there.
Patient awake, alert, oriented, sitting up in bed, able to discuss diabetes care plan.
Hgb 8.5. +C-Diff, Right knee septic arthritis with infected femoral nail. AMBER resolved Cr went up to 4.1 on 05/05/2025, now Cr 0.8, eGFR > 60 today.
POD # 7 s/p right knee I&D and removal of intramedullary nail. POD# 18 s/p Left BKA.
Was started on oral steroids- Prednisone 20mg daily, contributing to hyperglycemia
05/12 HS glucose up to 256, fasting 296 this AM. Will increase Lantus to 18 units BID.
Continue AC NovoLog 6 units for now and closely monitor glucose trend, will adjust if necessary. Cont low corrective insulin with meals.
Discussed with nurse, instructed to HOLD AC insulin if patient doesn't eat.
Will cont to follow and adjust insulin dose if necessary.
Diabetes History
- -
Type of Diabetes: 1
Pre-Admission Diabetes Regimen
05/12/25
08:31
Creatinine 0.8
Lab Results
Hemoglobin A1c 6.9 % (4.0-5.6) H 03/22/25 06:24
Insulin Pump Settings
IP Diabetes Regimen
05/12/25 05/12/25 05/12/25
08 08:31 12:25
Glucose 144 H
POC Glucose 154 H 105 H
05/12/25 05/12/25
17:14 22:27
Glucose
POC Glucose 168 H 256 H
Meal type: Dinner
Meal type: Breakfast
Amount consumed: 100%
Amount consumed: 100%
Patient Education
[2025-05-13 08:41] LABS: Glucose - Point of Care 296 mg/dl (70-99)
--- NOTE | 2025-05-13 09:31 | W.PN.HOSP.TC ---
Addendum entered and electronically signed by Nichol Loera MD 05/13/25 14:54:
Attending�addendum:
I saw and evaluated the patient. I reviewed the resident�s note and agree with findings and plan as documented in the resident�s note.��patient seen and examined at bedside, was coughing, still cultures been negative.
Physical�exam:
GENERAL : Patient is awake, alert, oriented x3
HEENT: Nonicteric sclerae, PERRLA, EOMI. Oropharynx clear. Moist mucous membranes. Conjunctivae appear well perfused.
CHEST: Chest wall is nontender.
HEART: Regular rate and rhythm without murmurs.
LUNGS: Clear to auscultation bilaterally.
ABDOMEN: Soft, positive bowel sounds, nontender, no organomegaly.
RECTAL: Deferred.
MUSCLES/EXTREMITIES: Bilateral BKA .
NEUROLOGIC: Cranial nerves II-XII intact without motor/sensory deficit.
�
Assessment/plan:
Left foot wound dehiscence, status post BKA.
Acute blood loss anemia
Status post right BKA
Hyperkalemia, resolved
C. difficile colitis.
Continue vancomycin oral.
Concern for pseudogout.
Continue short-term steroid
History of coronary artery disease.
History of type 1 diabetes with hyperglycemia and neuropathy
CODE STATUS: Full code
DVT prophylaxis: SCDs
Diet: DM diet
Disposition: Discharge today
�
Total time spent on today�s encounter was 51 minutes which included time spent in counseling the patient/family regarding diagnosis and treatment plan as listed above, goals of care, and symptom management. Case was discussed with nursing staff,
specialists, and care coordinators/case management. All labs and imaging personally reviewed by me. Remainder the time spent in detailed review of previous records, lab data, imaging, and other medical provider documentation.
Original Note:
Today's Communication/Plan
-
Discharge today. Start low dose steroid for CPPD. Temporary adjustment in insulin regimen forthcoming. D/c Ceftazidime, start fluconazole.
Assessment / Plan
Assessment / Plan
Sang Post is a 29M w/ PMHx significant for T1-IDDM, CIDP, HTN, GERD, CKD stage IIIA, history of osteomyelitis with R BKA who presented with left foot osteomyelitis and wound dehiscence of left transmetatarsal amputation, treated by means of L
BKA. Additionally, he has received 13U of pRBCs over the course of this admission. Patient became C. Diff positive, and treatment was initiated. Currently being evaluated for R knee suprapatellar effusion w/ aspirate showing a septic knee with a
component of CPDD. Patient is currently receiving Abx treatment for C Diff as well as septic knee.
Assessment/Plan:
-Left foot TMA site with wound dehiscence: Resolved- left BKA
-History of left foot TMA on 03/08: Resolved�left BKA
-Acute blood Loss Anemia secondary to the above: Resolved�left BKA
Vascular US showed no significant arterial stenosis on the left however Doppler waveforms suggest disease within the distal SFA/popliteal artery and infrapopliteal disease may also be present as per arterial studies.
Wound cultures grew MRSA, VRE
Blood cultures did not show any growth
Underwent ultrasound of the left lower extremity did not show any evidence of DVT
Iron supplementation continue
Continue monitoring hemoglobin daily and transfuse as needed to maintain hemoglobin greater than 7
Status postdebridement 03/25.
Pathology showed focal acute osteomyelitis and detached fragment of fibrino-purulent exudate
Patient underwent his open TMA revision and wound debridement on 04/04 -there was significant drainage postoperatively - pathology positive for acute and chronic osteomyelitis
Wound culture from 04/04 positive for Enterobacter Cloacae
Podiatry has tentatively planned for revision surgery of the L foot after pathology returns from most recent debridement on 04/06/25
Scheduled for OR with podiatry for debridement vs lisfranc disarticulation on 04/13/25 - procedure tolerated well
Continue Holding anticoagulants postoperatively - will resume near discharge date
Appreciate hematology recommendations -they are under the impression that the patient is suffering from some element of WILBER and recommended continuing with oral iron supplement.
We have initiated anemia workup with LDH at 171, haptoglobin pending, Positive Candie test, 1+ BOBBY IgG, stool heme test, and PT/PTT were within normal limits. Based on positive Candie test, consider drug-induced immune hemolytic anemia, delayed
hemolytic transfusion reaction, or cold agglutinin disease
Abdominal ultrasound found that the liver and spleen were within normal limits in size without hepatosplenomegaly. No ascites. Tiny gallstones without sonographic features of acute cholecystitis. No bile duct dilatation.
Patient tolerated his Left BKA and is recovering postoperatively. POD 5 on 04/25/24 for L BKA
As per ID recommendations - Stump looks clean, discontinued Daptomycin and Ceftazidime/Avibactam and plan for DC
Patient spiked a fever on 04/27/25 with 101.1 temp. Reconsulted ID, CXR ordered, COVID negative, UA with reflex to culture ordered, BCs x2 ordered - BCs negative and COVID negative
Patient required additional units of pRBCs on 05/05 and 05/06. As of that date, total 13U.
On 05/06 we discussed the case with Hematology, order reticulocyte count and they will see again. No role for BM Bx.
-Right BKA: Stable/monitoring
Swelling noted; ortho consulted
Aspirate shows a septic joint, taken for washout on 05/06/25
Started on Daptomycin and Ceftazidime-Avibactam
Cultures negative; final. Antibiotics discontinued.
Positive for crystals; low dose steroid started for CPPD; colchicine relatively contraindicated in setting of CKD
-Hypoactive delirium likely due to opiate overdose: Resolved
-Hyperkalemia: Resolved
Patient was hyperkalemic with potassium of 5.5 on 04/14/25
Lokelma given, Insulin adjusted to home dose.
Repeat potassium on 04/15/25 is 4.9 - within normal limits.
Potassium was 5.7 on 04/18/2025�Lokelma given
Torsemide has been resumed
Potassium stable
Clostridium Difficile Infection:
C. Diff positive 05/02
Vancomycin PO 125mg qid for 10 days
Course extended by ID in the setting of additional antibiotic needs
Continue through 05/18
Patient initially transitioned to Dificid after allergy noted, but patient states that he felt clammy and itchy. Switched back to Vancomycin 125mg qid.
- History of ASCVD: Stable/monitoring
- Status post stent placement: Stable/monitoring
- Chest pain: Stable/monitoring
EKG/troponin negative for any acute process
ASA held
Plavix 75mg held
Statin held
Continue Ranolazine
Continue Carvedilol
Type 1 diabetes with Hyperglycemia and neuropathy: Stable/monitoring
A1C = 8.1% in January. Hba1c on 03/21/25 was 6.9 indicating improvement in overall glycemic control
Diabetes [employer] consulted, recommendations appreciated
Continue gabapentin, continue duloxetine
Lantus adjusted to 25 units, Aspart adjusted to 8 units at breakfast, lunch and dinner.
05/07: Lantus held in setting of low sugar, D5 w/ HCO3 given-
AMBER on CKD IIIa: Stable/monitoring
Continue to monitoring creatinine, has been hovering around 1.4/1.5
Urine studies show pre-renal cause, likely from hypovolemic state
Continued elevated creatinine level at 1.6 on 04/04/2025
Continue monitoring BMP.
Torsemide resumed
IV fluid support
Cr spike to 4 on 05/06; patient admitted to forgetting to straight cath himself
Nursing orders for q6h straight cath
Creatinines improving
-GERD: Stable/monitoring
Continue Pantoprazole-Chronic inflammatory demyelinating polyneuropathy: Stable/monitoring
Continue current meds, will need to arrange for PLEX in outpatient setting once discharged
- UTI
- Start Fluconazole through 05/22
FULL CODE
GI PPx: Pantoprazole
DVT Prophylaxis: SCDs

Imaging:
-Left foot x-ray conducted on 03/21/2025:
Status post amputation at the level of the first through fifth proximal metatarsal bones.
No radiographic evidence for osteomyelitis.- Bilateral lower extremity arterial ultrasound exam conducted on 03/23/2025:
1. Ankle-brachial indices and toe brachial indices could not be measured due to prior amputations.
2. No focal significant arterial stenosis demonstrated on the left side on duplex imaging. Spectral Doppler waveform analysis is suggestive of disease within the distal SFA/popliteal artery. Infrapopliteal disease may also be present.
3. Multiple lymph nodes are seen within the left thigh, which may be reactive.-Peripheral vascular ultrasound of the left lower extremity conducted on 03/31/2025:
No evidence of DVT of the left lower extremity.

Procedures:
03/03/2025-initial amputation of left transmetatarsal
03/25/2025-debridement of infected left metatarsal amputation
04/04/2025-revision debridement of left heel wound with calcaneal biopsy
Anticipated Discharge: Today
Subjective/Interval History
-
Date of Service: May 13, 2025
Patient seen and examined with attending. Patient endorses continued diarrhea, knee pain.
Objective Data
-
Labs:
Laboratory Results
05/13/25
09:17
WBC Pending
Hgb Pending
Hct Pending
Plt Count Pending
Sodium Pending
Potassium Pending
Chloride Pending
Carbon Dioxide Pending
BUN Pending
Creatinine Pending
Glucose Pending
Calcium Pending
Vital Signs:
Vital Signs
Temp Pulse Resp BP Pulse Ox
97.9 F 81 14 184/96 98
05/13/25 07:00 05/13/25 07:00 05/13/25 07:00 05/13/25 07:00 05/13/25 07:00
I&O
05/12/25 05/13/25 05/14/25
06:59 06:59 06:59
Intake Total 2044 / 2044 2876 / 2876
Output Total 2500 / 2500 3250 / 3250
Balance -456 / -456 -374 / -374
Review of Systems
-
History Source: Patient
All other systems: Reviewed and negative
Physical Exam
-
General: No Apparent Distress and Comfortable
HEENT: Normocephalic, Atraumatic and Moist Mucous Membranes
Respiratory: Clear to Auscultation and Non Labored Respirations
Cardiac: S1/S2
GI: Soft and Nontender
Musculoskeletal: Other (R BKA and L BKA stable. )
Neuro: Awake, Alert and Oriented
Psych: Calm
Data Reviewed
-
Diagnostic Radiology: Image personally visualized and interpreted and Report Reviewed by me
Labs: Labs Reviewed by me
[2025-05-13] MEDS: RANEXA EXTENDED RELEASE 1000 MG PO (09:33)
[2025-05-13] MEDS: LANTUS 0.18 UNITS SC (09:33)
[2025-05-13] MEDS: CYMBALTA DELAYED RELEASE 30 MG PO (09:34)
[2025-05-13] MEDS: FEOSOL 325 MG PO (09:34)
[2025-05-13] MEDS: IMDUR (EXTENDED RELEASE) 60 MG PO (09:34)
[2025-05-13] MEDS: PROTONIX 40 MG PO (09:34)
[2025-05-13] MEDS: COLACE PO (09:35)
[2025-05-13] MEDS: COREG 25 MG PO (09:35)
[2025-05-13] MEDS: NEURONTIN 300 MG PO ×2 (09:36→17:29)
[2025-05-13] MEDS: DELTASONE 20 MG PO (09:36)
[2025-05-13] MEDS: ASPIR LOW (ENTERIC COATED) 81 MG PO (09:37)
[2025-05-13] MEDS: NOVOLOG FLEXPEN 6 UNITS SC ×3 (09:38→17:28)
[2025-05-13] MEDS: NOVOLOG FLEXPEN-LOW RESISTANCE 3 UNITS SC ×2 (09:38→17:29)
[2025-05-13] MEDS: HEPARIN 5000 UNITS SC (09:42)
[2025-05-13] MEDS: FLORASTOR 250 MG PO (09:42)
[2025-05-13] MEDS: SENOKOT PO (09:43)
[2025-05-13] MEDS: APRESOLINE 10 MG IV (09:45)
[2025-05-13] MEDS: NORVASC 5 MG PO (09:45)
[2025-05-13 09:55] LABS: Hematocrit 33.1 % (39.0-52.0); Hemoglobin 10.0 g/dL (13.0-18.0); Mean Corp Hgb Conc. 30.2 g/dL (33.0-37.0); Mean Corpuscular Volume 92.7 fL (80.0-94.0); Platelet Count 829 10^3/uL (130-400); Red Cell Dist. Width 16.0 % (11.5-14.5)
[2025-05-13 10:13] LABS: Blood Urea Nitrogen 11 mg/dl (9-20); Calcium 8.6 mg/dl (8.4-10.2); Carbon Dioxide 31 mmol/L (22-30); Chloride 101 mmol/L (98-107); Estimated Creatinine Clearance > 125 ml/min; Glucose 336 mg/dl (70-99); Potassium 5.2 mmol/L (3.5-5.1); Sodium 136 mmol/L (135-145); eGFR > 60.00
[2025-05-13 12:03] LABS: Glucose - Point of Care 348 mg/dl (70-99)
--- NOTE | 2025-05-13 12:21 | W.PN.ID1 ---
Date of Service
Date of Service: May 13, 2025
Today's Communication
Continue po Vancomycin through 05/18/25 (5 days past dc systemic abx)
Fluconazole 200mg po qd x 10 d through 05/22/25.
Assessment / Plan
# Symptomatic UTI
- Straight cath Ucx: C. albicans
- DC Avycaz.
- Start fluconazole 200mg po qd x 10 d through 05/22/25.
# Possible right Knee Septic Arthritis with infected femoral nail
- 9.4K WBC, 95%PMNS, + CPPD crystals
- 95K WBC, 98%PMNS, no crystals, aerobic and anaerobic cultures negative
# Right Knee CPPD disease
# Fever - resolved
# Leukocytosis - slight trend up
# AMBER - resolved
- Arthrocentesis cx's negative (off abx)
- 05/06 purulent material was encountered within the knee in the OR, labeled proximal femur and sent for culture
Final OR cultures: No growth (off abx)
- Discontinue daptomycin (d6)
- Dicontinue Avycaz (d7)
-On short course steroid for pseudogout
# C difficile
- Continue po Vancomycin (d12) through 05/18/25 (5 days past dc systemic abx).
# s/p Osteomyelitis Left foot TMA site wound dehiscence with necrosis
- Failed multiple revisions
- 04/21/25 s/p left BKA
- s/p daptomycin and ceftaz/avibactam, dc'd on 04/25.
- Wound Care.
# Right BKA stump superficial scab over bony prominence.
-Per vascular no plans for revision at this time.
# Multiple abx allergies: PCN, cephalosporin, meropenem, Vancomycin; tolerated Avyzaz
# Incarcerated
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
Diabetes mellitus
CAD status post PCI
CHF
hx CKD3
Hypertension
Guillain-Potts� syndrome/CIDP, plasma exchange q 2 months
PAD status post right BKA
Left hallux and second toe osteomyelitis status post amputation and debridement of left heel ulcer January 21, 2025
Left foot TMA, I+D left heel wound and bone biopsy of heel (neg osteo) Mar 08, 2025 (path surgical cure)
Chief Complaint
-: Other (Foot wound)
Subjective / Review of Systems
Still with dysuria.
On steroid for pseudogout, he is concern about the hyperglycemia.
Vital Signs / Physical Exam
Vital Signs
Vital Signs
Temp Pulse Resp BP Pulse Ox
97.9 F 81 14 184/96 98
05/13/25 07:00 05/13/25 09:45 05/13/25 07:00 05/13/25 09:45 05/13/25 07:00
Physical Exam
Constitutional: No Acute Distress
Cardiovascular: Regular Rate and S1/S2
Pulmonary: Clear
Gastrointestinal: Soft, Non Tender, Non Distended and Normal Bowel Sounds
Musculoskeletal: Other (Right knee no erythema, + edema, + tenderness to thigh)
Wound: Other (R AKA stump wound with dry eschar)
Neurological: AO x 3
Objective Data
Lab Data
Lab Results
05/13/25 09:17
05/13/25 09:17
ESR Cancelled 04/17/25 10:48
PT 13.7 Sec (11.4-14.6) 04/17/25 06:33
INR 1.02 04/17/25 06:33
APTT 33.8 Sec (23.4-35.0) 04/17/25 06:33
Estimated Creat Clear > 125 ml/min 05/13/25 09:17
Lactic Acid 0.8 mmol/L (0.7-2.0) 03/25/25 01:16
Total Bilirubin 0.4 mg/dl (0.2-1.3) 05/05/25 07:12
AST 13 U/L (17-59) L 05/05/25 07:12
ALT 15 U/L (0-50) 05/05/25 07:12
Alkaline Phosphatase 141 U/L (38-126) H 05/05/25 07:12
C-Reactive Protein > 270.00 mg/L (0.0-10.00) H 05/06/25 07:28
Most recent labs reviewed.
Micro Results:
05/12/25 12:33 Urine Culture - Final
Urine Anna albicans
05/06/25 17:47 Wound Culture - Final
Femur - Right No growth
Gram Stain - Final
05/06/25 17:47 Anaerobic Culture - Final
Femur - Right NO ANAEROBES ISOLATED
05/06/25 16:08 Wound Culture - Final
Knee - Right No growth
Gram Stain - Final
05/06/25 16:08 Anaerobic Culture - Final
Knee - Right NO ANAEROBES ISOLATED
05/05/25 16:00 Body Fluid Culture - Final
Knee - Right No Growth After 72 Hours
Gram Stain - Final
05/05/25 07:48 Anaerobic Culture - Final
Joint Fluid NO ANAEROBES ISOLATED
05/05/25 10:02 Blood Culture - Final
Blood/Venous No Growth - Final Report
05/05/25 09:08 Blood Culture - Final
Blood/Venous No Growth - Final Report
05/05/25 10:10 Urine Culture - Final
Urine Anna albicans
05/05/25 10:49 Influenza Types A & B (JOSE) - Final
Nasal Swab Negative for Influenza A & B, NAAT
Negative results must be combined with clinical observations
and patient history.
Nucleic Acid Amplification test (NAAT)performed on the
[employer] platform.
05/02/25 11:42 C. difficile GDH Antigen & Toxins - Final
Feces/Stool Toxigenic C.difficile Positive
04/27/25 09:32 Blood Culture - Final
Blood/Venous No Growth - Final Report
04/27/25 08:33 Blood Culture - Final
Blood/Venous No Growth - Final Report
04/27/25 10:24 Urine Culture - Final
Urine NO GROWTH
03/25/25 16:52 Fungal Culture - Final
Foot - Left Anna albicans
04/13/25 16:07 Wound Culture - Final
Foot - Left Enterobacter cloacae
Gram Stain - Final
04/13/25 16:07 Anaerobic Culture - Final
Foot - Left NO ANAEROBES ISOLATED
04/04/25 16:30 Wound Culture - Final
Foot - Left Enterobacter cloacae
Gram Stain - Final
04/04/25 16:30 Anaerobic Culture - Final
Foot - Left NO ANAEROBES ISOLATED
03/31/25 10:51 Blood Culture - Final
Blood/Venous No Growth - Final Report
03/31/25 10:22 Blood Culture - Final
Blood/Venous No Growth - Final Report
03/25/25 09:33 Blood Culture - Final
Blood/Venous No Growth - Final Report
03/25/25 16:56 Wound Culture - Final
Foot - Left Staph aureus MRSA
Enterococcus faecalis - VRE
Gram Stain - Final
03/25/25 16:56 Anaerobic Culture - Final
Foot - Left NO ANAEROBES ISOLATED
03/25/25 16:52 Wound Culture - Final
Foot - Left Staph aureus MRSA
Enterococcus faecalis - VRE
Gram Stain - Final
03/25/25 16:52 Anaerobic Culture - Final
Foot - Left NO ANAEROBES ISOLATED
03/25/25 01:16 Blood Culture - Final
Blood/Venous No Growth - Final Report
03/27/25 10:35 Urine Culture - Final
Urine Anna albicans
03/24/25 12:51 Salmonella/Shigella Culture - Final
Feces/Stool No Salmonella, Shigella, Aeromonas or Plesiomonas species
isolated.
Campylobacter Culture - Final
No Campylobacter species isolated.
Shiga Toxin Test - Final
No E. coli Shiga Toxin 1 or 2 detected.
03/21/25 21:00 Blood Culture - Final
Blood/Venous No Growth - Final Report
03/21/25 21:00 Blood Culture - Final
Blood/Venous No Growth - Final Report
03/21/25 21:16 Wound Culture - Final
Foot - Left Enterococcus faecalis - VRE
Anna albicans
Gram Stain - Final
03/24/25 12:53 C. difficile GDH Antigen & Toxins - Final
Feces/Stool C. difficile antigen positive, toxin negative.
Clostridium difficile present, but toxin not detected.
Patient may be a carrier, colonized with nontoxinogenic
strain or the level of toxin in sample is below detection
limits. This information should be used in conjunction with
the patient's clinical history.
03/22/25 13:07 MRSA Screen - Final
Nose No Methicillin Resistant Staphylococcus aureus isolated.
Care Review
Plan reviewed with: Physician (Dr. Novoa)
[2025-05-13] MEDS: NOVOLOG FLEXPEN-LOW RESISTANCE 4 UNITS SC (12:58)
[2025-05-13 15:00] VITALS: BP 144/81
[2025-05-13 15:09] VITALS: BP 144/84
--- NOTE | 2025-05-13 15:10 | CM ---
entered order for discharge.
Spoke with Brett at [facility] said [facility] have [facility].
PT evaluation indicates acute rehab.
Spoke with Brett and . As per Brett acute rehab will not be able to be provided .
Guards will escort patient back to [facility].
[facility]
Report: [phone]

Plan: Return to [facility]
[2025-05-13 16:45] LABS: Glucose - Point of Care 260 mg/dl (70-99)
[2025-05-13] MEDS: DESENEX/MITRAZOL/ZEASORB TOPICAL (17:36)
[2025-05-13] MEDS: LANTUS SC (17:37)
--- NOTE | 2025-05-13 18:02 | W.DCSUMMARY ---
Addendum entered and electronically signed by Nichol Loera MD 05/16/25 08:50:
Attending�addendum:
I saw and evaluated the patient. I reviewed the resident�s note and agree with findings and plan as documented in the resident�s note.��patient seen and examined at bedside, was coughing, still cultures been negative.
Physical�exam:
GENERAL : Patient is awake, alert, oriented x3
HEENT: Nonicteric sclerae, PERRLA, EOMI. Oropharynx clear. Moist mucous membranes. Conjunctivae appear well perfused.
CHEST: Chest wall is nontender.
HEART: Regular rate and rhythm without murmurs.
LUNGS: Clear to auscultation bilaterally.
ABDOMEN: Soft, positive bowel sounds, nontender, no organomegaly.
RECTAL: Deferred.
MUSCLES/EXTREMITIES: Bilateral BKA .
NEUROLOGIC: Cranial nerves II-XII intact without motor/sensory deficit.
�
Assessment/plan:
Left foot wound dehiscence, status post BKA.
Acute blood loss anemia
Status post right BKA
Hyperkalemia, resolved
C. difficile colitis.
Continue vancomycin oral.
Concern for pseudogout.
Continue short-term steroid
History of coronary artery disease.
History of type 1 diabetes with hyperglycemia and neuropathy
CODE STATUS: Full code
DVT prophylaxis: SCDs
Diet: DM diet
Disposition: Discharge today
�
Total time spent on today�s encounter was 51 minutes which included time spent in counseling the patient/family regarding diagnosis and treatment plan as listed above, goals of care, and symptom management. Case was discussed with nursing staff,
specialists, and care coordinators/case management. All labs and imaging personally reviewed by me. Remainder the time spent in detailed review of previous records, lab data, imaging, and other medical provider documentation.
Original Note:
Documented by User: Elmo Novoa DO, Resident 05/15/25 18:33
Discharge Summary
Discharge Data
Date of Admission: 03/23/25
Date of Discharge: 05/13/25
-
Pending Results: No
Hospital Course
Sang Carballo is a 29 year old male with a past medical history of type 1 diabetes mellitus, atherosclerotic vascular disease status post percutaneous stenting, hypertension, chronic anemia, congestive heart failure and a complicated history
of osteomyelitis with multiple lower extremity amputations who presented to the emergency department at [facility] on 03/22/2025 complaining of pain, swelling, and bleeding up to the left foot.
HISTORY OF PRESENT ILLNESS
Importantly, the patient had recently been admitted to [facility] from 03/05/2025 to 03/18/2025 for osteomyelitis of the left foot. He had initially underwent amputation of the first 2 digits of the left foot on 01/21/2025. He returned with
wound dehiscence and ultimately required a transmetatarsal amputation and heel debridement on 03/08/2025. The patient had recently completed an inpatient course of antibiotics on 03/16/2025. The patient stated that he banged his foot on a vehicle
when leaving the hospital. He stated that since that time he had worsening bleeding and oozing with increased pain over the left foot.
ED COURSE
Examination of the left foot revealed a warm and significantly tender extremity with clotted blood present at the surgical site with a leukocytosis to 12K and an elevated lactic acid level of 2.1. The patient's blood glucose was also significantly
elevated at 438, although he showed no signs of diabetic ketoacidosis. Patient's vital signs were otherwise afebrile and stable. Initial x-ray did not show evidence of osteomyelitis. Patient was admitted for reevaluation of the surgical and
management of hyperglycemia. Podiatry was consulted for reevaluation of the surgical site.
HOSPITAL COURSE
The patient spent a total of 52 days in the hospital. Hospital course is split up by problem list.
Left Foot Wound Dehisence
The patient originally presented to the emergency department for wound dehiscence of a left foot transmetatarsal amputation site. He had received the surgery on 03/08/2025. There was also acute blood loss anemia secondary to this wound dehiscence.
Vascular ultrasound showed no significant arterial stenosis however Doppler waveforms suggested disease within the distal vasculature. Wound cultures taken from this dehiscence grew MRSA and VRE. This wound underwent debridement on 03/25/2025.
Pathology review showed focal acute osteomyelitis. The patient underwent a revision of the transmetatarsal amputation and wound debridement on 04/04 with significant drainage postoperatively. Pathology at this time was also positive for acute and
chronic osteomyelitis. Patient was again taken for revision surgery of the left foot. On 04/13, patient again underwent a procedure of debridement at this time with Lisfranc disarticulation. Decision was made to undergo a left knee below the knee
amputation on 04/20. In the interim, the patient was on IV antibiotics with daptomycin and Avycaz.
Acute Blood Loss Anemia
During the course of the above events for left wound dehiscence, the patient continues to suffer from acute blood loss anemia. Over the course of his admission, the patient was given a total of 13 units of blood.
Calcium Pyrophosphate Deposition Disease
Patient was admitted to the hospital with a prior right below the knee amputation. On 05/03, the patient exhibits swelling and pain of the right knee, despite the fact that procedures were done on the contralateral knee. A right knee x-ray showed
significant suprapatellar effusion. The orthopedist was called to evaluate the knee. Aspiration of the knee was taken, and this showed WBCs of greater than 90,000 and crystals. Cultures of the aspirate were sent to the lab and resulted with no
bacterial growth or Gram stain positivity. Given the patient's history of chronic kidney disease, colchicine was contraindicated so the patient was started on a short course of low-dose corticosteroids.
Clostridium Difficile Infection
Late during admission, the patient started to experience diarrhea in the setting of multiple antibiotic use over the course of the admission. He tested positive for C. difficile on 05/02/2025. He was started on vancomycin orally for 10 days
initially. However during this time, the patient also was put on prophylactic antibiotics again while aspiration of the right knee (as above and calcium pyrophosphate disposition disease) was pending fluid culture. Thus, the patient was put on an
extended course of the antibiotics. Of note, the patient originally gave a history of itching with vancomycin and so Dificid was started. The patient had an adverse reaction to Dificid including clamminess and itchiness. Dificid was changed back
to vancomycin with the patient endorsed that he can take oral vancomycin with Benadryl without issue.
Type 1 Diabetes Mellitus
The patient's hemoglobin A1c was 8.1% in January and 6.9% on 03/21/2025 indicating an overall improvement in glycemic control. However over the course of the admission, the patient's sugars were difficult to control. See diabetes WRAPPER STEMMER OPERATOR notes for
additional details. Since the patient was started on a low-dose of corticosteroids for calcium pyrophosphate deposition disease, the patient's insulin regimen was adjusted to 25 units of Lantus daily and 8 units of aspart after breakfast lunch and
dinner during the course of corticosteroids. The patient should return to his regular regimen after his corticosteroids are discontinued.
AMBER on CKD
The patient had multiple instances of acute kidney injury in the setting of his chronic kidney disease. Initially, the patient was prerenal likely from a hypovolemic state in the setting of acute blood loss anemia. The patient's torsemide was
initially discontinued and the patient was given IV fluid support. AMBER was mainly controlled until the last week of admission, when his creatinine jumped up to above 4. It was noted, that the patient at that time decided not to straight cath
himself. After a catheterization protocol was put in place for nursing, the patient's creatinine went back to baseline, and remained there for the remainder of the admission.
For details, see daily progress notes.
Discharge Plan
-
Patient Disposition: Long-Term
Discharge Diagnosis/Procedures: Osteomyelitis of the left foot status post TMA and eventual BKA on 04/21/2025
C Diff Colitis
Anna Urinary Tract Infection
Calcium Pyrophosphate Dihydrate Deposition Disease
Anemia
Hyperkalemia
Thrombocytosis
T1DM
AMBER
GERD
GBS/CIDP with history of plasma exchange
Hypertension
Coronary artery disease
History of heart failure
Hyperlipidemia
Chronic urinary retention/neurogenic bladder self catheterizes
GERD
Anxiety and depression
Gallstones
Hypoalbuminemia
Condition: Fair
Diet: Low Cholesterol, 2 Gram Sodium and Diabetic, Carb Controlled
Activity: As tolerated
Driving Restrictions: No driving
Bathing Restrictions: None
Blood Work: CBC and CMP to be completed 1 week after discharge
Specialty Instructions: Weigh Daily- Call MD for wt gain/loss 3 lbs overnight/5 lbs in 1 week
Activity Restrictions/Additional Instructions:
Wound Care Instructions
L BKA- Can place ABD pad over trino if scant drainage present, then wrap with Hemal wrap gently. Change daily or as needed if soiled. If no drainage is noted from staple sites can also just place Hemal wrap, without ABD and re-wrap daily.
R BKA stump scabbed abrasions-swab with Betadine (allow to dry), silicone border foam, change every 2 days and as needed for loosened dressing.
Pressure redistributing chair cushion (i.e. Air, gel).
Follow up with Vascular surgeon.
Follow up with Hematology/Oncology and also with your strike out machine operator before you resume Plavix.
You also need follow up with Hematology for elevated platelets and anemia
Once you don't have any more loose stools, then add Senna 17.5 mg at night if still on Morphine sulphate or any narcotics
Isolation for C. difficile colitis. Continue Vancomycin through 05/18/25.
Continue Fluconazole through 05/22/2025.
Continue Prednisone through 05/16/2025.
Lantus increased to 18U BID during prednisone course, then consider return to 16U BID.
Referrals:
[facility] [place] [facility] [Other, Vascular Surgery] - in one week
Referral Note: Staple removal
[facility] [Family Provider, General]
Julian Andrea MD [Active, Cardiology] - in one week
Referral Note: ASCVD, evaluation for need of plavix in the setting of frequent blood loss anemia
Rekha Owens MD [Active, Hematology / Oncology]
Referral Note: anemia, thrombocytosis
Additional Discharge Medication Instructions: Resume plavix after being cleared by vascular surgery and cardiology in the setting of acute blood loss anemia.
Physical Therapy on discharge
Occupational Therapy on discharge
Wound care of bilateral BKAs
CBC and CMP to be completed within one week of discharge
Prescriptions:
New
ferrous sulfate [FeroSul] 325 mg (65 mg iron) Tablet
325 mg PO BID Qty: 10 0RF
Rx Instructions:
Stools may become darker/terrell with oral iron supplement.
Insulin Glargine Lantus [Lantus] 25 UNITS
Subcutaneous Insulin Syringe [Syringe-Insulin] 0 UNIT
As Directed mls/hr SC BID@0800,2200
Reason for use: Diabetes
Ordered By: Chiki Andrade MD, Resident
Last Taken: 05/04/25 08:41 0.25 mls
(DME) CBC and CMP
See Rx Instructions .Route .MEDSUPPLY Qty: 1 0RF
Rx Instructions:
CBC and CMP to be done within one week of discharge.
(DME) Physical Therapy
See Rx Instructions .Route .MEDSUPPLY Qty: 1 0RF
Rx Instructions:
Outpatient Physical Therapy on discharge
(DME) Occupational Therapy
See Rx Instructions .Route .MEDSUPPLY Qty: 1 0RF
Rx Instructions:
Occupational Therapy on Discharge
torsemide 5 mg Tablet
10 mg PO DAILY Qty: 30 0RF
fluconazole 200 mg Tablet
200 mg PO DAILY 9 Days Qty: 9 0RF
prednisone 20 mg Tablet
20 mg PO DAILY Qty: 3 0RF
amlodipine 5 mg Tablet
5 mg PO DAILY Qty: 30 0RF
insulin aspart U-100 100 unit/mL (3 mL) Insulin Pen
6 unit SC AC Qty: 3 0RF
Saccharomyces boulardii 250 mg Capsule
250 mg PO BID Qty: 30 0RF
vancomycin 50 mg/mL Recon Soln
125 mg PO Q6 5 Days Qty: 50 0RF
Insulin Glargine Lantus [Lantus] 18 UNITS
Subcutaneous Insulin Syringe [Syringe-Insulin] 0 UNIT
As Directed mls/hr SC BID@0800,2200
Ordered By: Elmo Novoa DO, Resident
Last Taken: 05/12/25 22:34 0.16 mls
Continued
atorvastatin 80 mg Tablet
80 mg PO HS
carvedilol 25 mg Tablet
25 mg PO BID
aspirin 81 mg Tablet,Delayed Release (Dr/Ec)
81 mg PO DAILY
isosorbide mononitrate 60 mg Tablet Extended Release 24 Hr
60 mg PO DAILY
pantoprazole [Protonix] 40 mg Tablet,Delayed Release (Dr/Ec)
40 mg PO DAILY
ranolazine 1,000 mg Tablet Extended Release 12 Hr
1,000 mg PO BID
gabapentin 300 mg Capsule
300 mg PO TID
duloxetine 30 mg Capsule,Delayed Release(Dr/Ec)
30 mg PO DAILY
mirtazapine 30 mg Tablet
30 mg PO HS
docusate sodium 100 mg Capsule
100 mg PO BID Qty: 30 0RF
insulin aspart U-100 100 unit/mL (3 mL) Insulin Pen
10 unit SC AC Qty: 15 0RF
Held
clopidogrel 75 mg Tablet
75 mg PO DAILY
Hold Instructions: Resume after follow-up with cardiology and vascular surgery
Discontinued
insulin glargine [Lantus Solostar U-100 Insulin] 100 unit/mL (3 mL) Insulin Pen
30 unit SC BID
Humulin R Regular U-100 Insuln 100 unit/mL Solution
1 sliding scale dose SC AC
torsemide 20 mg Tablet
40 mg PO DAILY
Santyl 250 unit/gram Ointment
1 applic TOPICAL HS
Dakin's Solution 0.5 % Solution
1 applic TOPICAL BID
Discharge Orders:
Discharge Patient (As Directed); Ordered 05/13/25
Ordered By: Nichol Loera
Discharge Date and Time
Discharge Date/Time: 05/13/25 19:05
Print Language: GAMBIAN

Documented by User: Nichol Loera MD 05/16/25 08:48
Discharge Summary
Discharge Data
Date of Admission: 03/23/25
Date of Discharge: 05/16/25
Discharge Plan
-
Patient Disposition: Long-Term
Discharge Diagnosis/Procedures: Osteomyelitis of the left foot status post TMA and eventual BKA on 04/21/2025
C Diff Colitis
Anna Urinary Tract Infection
Calcium Pyrophosphate Dihydrate Deposition Disease
Anemia
Hyperkalemia
Thrombocytosis
T1DM
AMBER
GERD
GBS/CIDP with history of plasma exchange
Hypertension
Coronary artery disease
History of heart failure
Hyperlipidemia
Chronic urinary retention/neurogenic bladder self catheterizes
GERD
Anxiety and depression
Gallstones
Hypoalbuminemia
Condition: Fair
Diet: Low Cholesterol, 2 Gram Sodium and Diabetic, Carb Controlled
Activity: As tolerated
Driving Restrictions: No driving
Bathing Restrictions: None
Blood Work: CBC and CMP to be completed 1 week after discharge
Specialty Instructions: Weigh Daily- Call MD for wt gain/loss 3 lbs overnight/5 lbs in 1 week
Activity Restrictions/Additional Instructions:
Wound Care Instructions
L BKA- Can place ABD pad over trino if scant drainage present, then wrap with Hemal wrap gently. Change daily or as needed if soiled. If no drainage is noted from staple sites can also just place Hemal wrap, without ABD and re-wrap daily.
R BKA stump scabbed abrasions-swab with Betadine (allow to dry), silicone border foam, change every 2 days and as needed for loosened dressing.
Pressure redistributing chair cushion (i.e. Air, gel).
Follow up with Vascular surgeon.
Follow up with Hematology/Oncology and also with your strike out machine operator before you resume Plavix.
You also need follow up with Hematology for elevated platelets and anemia
Once you don't have any more loose stools, then add Senna 17.5 mg at night if still on Morphine sulphate or any narcotics
Isolation for C. difficile colitis. Continue Vancomycin through 05/18/25.
Continue Fluconazole through 05/22/2025.
Continue Prednisone through 05/16/2025.
Lantus increased to 18U BID during prednisone course, then consider return to 16U BID.
Referrals:
[facility] [place] [facility] [Other, Vascular Surgery] - in one week
Referral Note: Staple removal
[facility] [Family Provider, General]
Julian Andrea MD [Active, Cardiology] - in one week
Referral Note: ASCVD, evaluation for need of plavix in the setting of frequent blood loss anemia
Rekha Owens MD [Active, Hematology / Oncology]
Referral Note: anemia, thrombocytosis
Additional Discharge Medication Instructions: Resume plavix after being cleared by vascular surgery and cardiology in the setting of acute blood loss anemia.
Physical Therapy on discharge
Occupational Therapy on discharge
Wound care of bilateral BKAs
CBC and CMP to be completed within one week of discharge
Prescriptions:
New
ferrous sulfate [FeroSul] 325 mg (65 mg iron) Tablet
325 mg PO BID Qty: 10 0RF
Rx Instructions:
Stools may become darker/terrell with oral iron supplement.
Insulin Glargine Lantus [Lantus] 25 UNITS
Subcutaneous Insulin Syringe [Syringe-Insulin] 0 UNIT
As Directed mls/hr SC BID@0800,2200
Reason for use: Diabetes
Ordered By: Chiki Andrade MD, Resident
Last Taken: 05/04/25 08:41 0.25 mls
(DME) CBC and CMP
See Rx Instructions .Route .MEDSUPPLY Qty: 1 0RF
Rx Instructions:
CBC and CMP to be done within one week of discharge.
(DME) Physical Therapy
See Rx Instructions .Route .MEDSUPPLY Qty: 1 0RF
Rx Instructions:
Outpatient Physical Therapy on discharge
(DME) Occupational Therapy
See Rx Instructions .Route .MEDSUPPLY Qty: 1 0RF
Rx Instructions:
Occupational Therapy on Discharge
torsemide 5 mg Tablet
10 mg PO DAILY Qty: 30 0RF
fluconazole 200 mg Tablet
200 mg PO DAILY 9 Days Qty: 9 0RF
prednisone 20 mg Tablet
20 mg PO DAILY Qty: 3 0RF
amlodipine 5 mg Tablet
5 mg PO DAILY Qty: 30 0RF
insulin aspart U-100 100 unit/mL (3 mL) Insulin Pen
6 unit SC AC Qty: 3 0RF
Saccharomyces boulardii 250 mg Capsule
250 mg PO BID Qty: 30 0RF
vancomycin 50 mg/mL Recon Soln
125 mg PO Q6 5 Days Qty: 50 0RF
Insulin Glargine Lantus [Lantus] 18 UNITS
Subcutaneous Insulin Syringe [Syringe-Insulin] 0 UNIT
As Directed mls/hr SC BID@0800,2200
Ordered By: Elmo Novoa DO, Resident
Last Taken: 05/12/25 22:34 0.16 mls
Continued
atorvastatin 80 mg Tablet
80 mg PO HS
carvedilol 25 mg Tablet
25 mg PO BID
aspirin 81 mg Tablet,Delayed Release (Dr/Ec)
81 mg PO DAILY
isosorbide mononitrate 60 mg Tablet Extended Release 24 Hr
60 mg PO DAILY
pantoprazole [Protonix] 40 mg Tablet,Delayed Release (Dr/Ec)
40 mg PO DAILY
ranolazine 1,000 mg Tablet Extended Release 12 Hr
1,000 mg PO BID
gabapentin 300 mg Capsule
300 mg PO TID
duloxetine 30 mg Capsule,Delayed Release(Dr/Ec)
30 mg PO DAILY
mirtazapine 30 mg Tablet
30 mg PO HS
docusate sodium 100 mg Capsule
100 mg PO BID Qty: 30 0RF
insulin aspart U-100 100 unit/mL (3 mL) Insulin Pen
10 unit SC AC Qty: 15 0RF
Held
clopidogrel 75 mg Tablet
75 mg PO DAILY
Hold Instructions: Resume after follow-up with cardiology and vascular surgery
Discontinued
insulin glargine [Lantus Solostar U-100 Insulin] 100 unit/mL (3 mL) Insulin Pen
30 unit SC BID
Humulin R Regular U-100 Insuln 100 unit/mL Solution
1 sliding scale dose SC AC
torsemide 20 mg Tablet
40 mg PO DAILY
Santyl 250 unit/gram Ointment
1 applic TOPICAL HS
Dakin's Solution 0.5 % Solution
1 applic TOPICAL BID
Discharge Orders:
Discharge Patient (As Directed); Ordered 05/13/25
Ordered By: Nichol Loera
Discharge Date and Time
Discharge Date/Time: 05/13/25 19:05
Print Language: GAMBIAN
== END 2025-05-13 19:05 | DRG 463 ==
LOC: 4 WEST ACU 08:02
PROVIDERS: Hospitalist; Internal Medicine; Nurse Practitioner; Nurse Practitioner Family; Nurse Practitioner Gerontology; Physician Assistant Surgical; Registered Nurse; Student in an Organized Health Care Education/Training Program; ADMITTING PHYSICIAN Hospitalist; ATTENDING PHYSICIAN General Practice; CONSULT PHYSICIAN Internal Medicine Infectious Disease; CONSULT PHYSICIAN Internal Medicine Nephrology; CONSULT PHYSICIAN Orthopaedic Surgery; CONSULT PHYSICIAN Student in an Organized Health Care Education/Training Program; CONSULT PHYSICIAN Surgery Vascular Surgery; EMERGENCY PHYSICIAN Emergency Medicine; OTHER PHYSICIAN Internal Medicine Hematology & Oncology
PROC: 30233N1 Transfusion of Nonautologous Red Blood Cells into Peripheral Vein, Percutaneous Approach (ICD-10-PCS; 2025-03-23)
PROC: 0QBP0ZZ Excision of Left Metatarsal, Open Approach (ICD-10-PCS; 2025-03-25)
PROC: 0JBR0ZZ Excision of Left Foot Subcutaneous Tissue and Fascia, Open Approach (ICD-10-PCS; 2025-03-25)
PROC: 0Y6N0Z0 Detachment at Left Foot, Complete, Open Approach (ICD-10-PCS; 2025-04-13)
PROC: 0Y6J0Z2 Detachment at Left Lower Leg, Mid, Open Approach (ICD-10-PCS; 2025-04-21)
PROC: 5A09357 Assistance with Respiratory Ventilation, Less than 24 Consecutive Hours, Continuous Positive Airway Pressure (ICD-10-PCS; 2025-04-23)
PROC: 0S9C3ZZ Drainage of Right Knee Joint, Percutaneous Approach (ICD-10-PCS; 2025-05-05)
PROC: 0SBC0ZZ Excision of Right Knee Joint, Open Approach (ICD-10-PCS; 2025-05-06)
PROC: 0QPB04Z Removal of Internal Fixation Device from Right Lower Femur, Open Approach (ICD-10-PCS; 2025-05-06)
DX: T87.44 Infection of amputation stump, left lower extremity (principal); J96.01 Acute respiratory failure with hypoxia; A04.72 Enterocolitis due to Clostridium difficile, not specified as recurrent; B37.49 Other urogenital candidiasis; D62 Acute posthemorrhagic anemia; I13.0 Hypertensive heart and chronic kidney disease with heart failure and stage 1 through stage 4 chronic kidney disease, or unspecified chronic kidney disease; G61.81 Chronic inflammatory demyelinating polyneuritis; G61.0 Guillain-Barre syndrome; L97.422 Non-pressure chronic ulcer of left heel and midfoot with fat layer exposed; N17.9 Acute kidney failure, unspecified; M86.172 Other acute osteomyelitis, left ankle and foot; M86.672 Other chronic osteomyelitis, left ankle and foot; E10.52 Type 1 diabetes mellitus with diabetic peripheral angiopathy with gangrene; F05 Delirium due to known physiological condition; E87.1 Hypo-osmolality and hyponatremia; T84.620A Infection and inflammatory reaction due to internal fixation device of right femur, initial encounter; E87.20 Acidosis, unspecified; E10.621 Type 1 diabetes mellitus with foot ulcer; T87.81 Dehiscence of amputation stump; Y83.5 Amputation of limb(s) as the cause of abnormal reaction of the patient, or of later complication, without mention of misadventure at the time of the procedure; E10.69 Type 1 diabetes mellitus with other specified complication; E10.65 Type 1 diabetes mellitus with hyperglycemia; M13.861 Other specified arthritis, right knee; N18.30 Chronic kidney disease, stage 3 unspecified; E10.22 Type 1 diabetes mellitus with diabetic chronic kidney disease; Y83.1 Surgical operation with implant of artificial internal device as the cause of abnormal reaction of the patient, or of later complication, without mention of misadventure at the time of the procedure; Y79.3 Surgical instruments, materials and orthopedic devices (including sutures) associated with adverse incidents; I25.10 Atherosclerotic heart disease of native coronary artery without angina pectoris; K21.9 Gastro-esophageal reflux disease without esophagitis; E10.40 Type 1 diabetes mellitus with diabetic neuropathy, unspecified; I50.9 Heart failure, unspecified; M11.261 Other chondrocalcinosis, right knee; N32.0 Bladder-neck obstruction; M25.461 Effusion, right knee; N31.9 Neuromuscular dysfunction of bladder, unspecified; F41.9 Anxiety disorder, unspecified; M65.861 Other synovitis and tenosynovitis, right lower leg; F32.A Depression, unspecified; E88.09 Other disorders of plasma-protein metabolism, not elsewhere classified; E87.5 Hyperkalemia; K80.20 Calculus of gallbladder without cholecystitis without obstruction; Z11.52 Encounter for screening for COVID-19; Z79.02 Long term (current) use of antithrombotics/antiplatelets; Z79.4 Long term (current) use of insulin; Z79.82 Long term (current) use of aspirin; Z79.899 Other long term (current) drug therapy; Z89.412 Acquired absence of left great toe; Z89.422 Acquired absence of other left toe(s); Z89.432 Acquired absence of left foot; Z89.511 Acquired absence of right leg below knee; Z95.5 Presence of coronary angioplasty implant and graft; Z87.891 Personal history of nicotine dependence
CPT/HCPCS: 27880; 71045; 73552; 73564; 73590; 73630; 73700; 74018; 74176; 76000; 76700; 80048; 80053; 80202; 81003; 81015; 81099; 82010; 82040; 82550; 82565; 82570; 82607; 82728; 82746; 82947; 82962; 83010; 83036; 83516; 83540; 83550; 83605; 83615; 83735; 83930; 83935; 84100; 84132; 84300; 84484; 85014; 85018; 85025; 85027; 85045; 85610; 85652; 85730; 86038; 86140; 86160; 86200; 86430; 86850; 86860; 86880; 86900; 86901; 86920; 87015; 87040; 87045; 87046; 87070; 87075; 87077; 87086; 87102; 87106; 87147; 87186; 87205; 87324; 87427; 87449; 87502; 87811; 88304; 88307; 88311; 89051; 89060; 93005; 93922; 93925; 93971; 94640; 94660; 97162; 97164; 97166; 97168; 97530; 97535; C1729; J0714; J0878; J2916; J7030; P9016

== ENCOUNTER 2025-05-14 10:18 | Emergency (ER) | payer OTHER, SELFPAY ==
[2025-05-14 10:20] VITALS: BP 130/72
--- NOTE | 2025-05-14 10:29 | ED.GENMED ---
History of Present Illness
General
Chief Complaint: Wound Check/Suture Removal
Time Seen by Provider: 05/14/25 10:28
History of Present Illness
History of Present Illness:
FOCUSED PAST MEDICAL HISTORY
- Diabetes, osteomyelitis
REVIEW OF OLD RECORDS
- I reviewed records, the patient was to be on vancomycin orally through 05/18/2025 and fluconazole daily through 05/22/2025 due to symptomatic UTI growing Anna albicans
- The patient went to the OR with Dr. Cain on 05/06/2025 with concerns for right knee septic arthritis with infected femoral nail
- The patient was hospitalized with acute osteomyelitis of the left 1st, 2nd and 3rd metatarsal heads and wound dehiscence in March
Note:
CHIEF COMPLAINT(S)
Right leg wound dehiscence following recent surgical intervention.
HISTORY OF PRESENT ILLNESS
The patient is a 29-year-old male with a recent history of lower extremity surgeries who presents with a wound dehiscence on the right lower extremity. The patient underwent amputation of one limb in [place] approximately two weeks ago. Recently,
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 This current problem began when the wound dehisced after the patient had to physically crawl to the toilet, resulting in the
sensation of tearing and subsequent bleeding. The patient reported bleeding for approximately one hour before seeking medical attention.
PAST MEDICAL AND SURGICAL HISTORY
The patient has undergone several orthopedic procedures, including a lower extremity amputation performed in [place] and a titanium raza removal from the right lower extremity last Friday by an orthopedic surgeon referred to as Dr. Paris.
PHYSICAL EXAM
General: Alert, no acute distress.
Skin: Warm, dry. Evidence of wound dehiscence on the right lower extremity with bleeding noted.
Head: Normocephalic, atraumatic.
Neck: Supple, trachea midline.
Eye, Ears, Nose, Mouth, and Throat: Oral mucosa moist.
Cardiovascular: Normal peripheral perfusion, No edema.
Respiratory: Respirations are non-labored.
Gastrointestinal: Abdomen nondistended
Back: Normal range of motion, Normal alignment.
Musculoskeletal: Normal ROM, normal strength.
Neurological: Alert and oriented to person, place, time, and situation. No focal neurological deficit observed.
Psychiatric: Cooperative, appropriate mood & affect.
PLAN
The immediate plan includes sending a picture of the wound to the orthopedic team for evaluation and possible further intervention.
DIFFERENTIAL DIAGNOSIS
The Differential Diagnosis includes, in no particular order and is not limited to:
1. Surgical wound dehiscence
2. Infection at the surgical site
3. Hematoma development
4. Pseudo-gout related inflammation
5. Post-surgical bleeding complications
6. Soft tissue injury due to mechanical stress
7. Foreign body reaction
8. Deep vein thrombosis
9. Cellulitis
10. Peripheral vascular injury
Disposition:
SUMMARY OF ENCOUNTER
The patient was seen in the emergency department due to right leg wound dehiscence following a recent surgical intervention. The patient has a history of lower extremity surgeries, including a titanium raza removal last Friday, which led to the
current wound issue after increased mechanical stress. A wet-to-dry dressing was applied as recommended by the vascular on-call doctor. While the patients hemoglobin is slightly lower than the previous day at 9.4, it is higher than it was two days
ago. The patients white blood cell count is elevated, but there are no fever or signs of infection on physical examination. The patient remains on antibiotics.
MANAGEMENT OF THE PATIENTS CARE WAS DISCUSSED WITH
I discussed the case with the on-call doctor for vascular.
PLAN
The plan includes applying a wet-to-dry dressing and continuing monitoring. The patient remains on antibiotics from previous management.
INDEPENDENT REVIEW OF LABS AND INTERPRETATION OF TESTS
My independent review of the complete blood count indicates an elevated white blood cell count and a hemoglobin level of 9.4, which is slightly lower than yesterday but higher than two days ago.
MEDICATION RECONCILIATION
The patient remains on antibiotics as per previous management records.
MEDICAL DECISION MAKING
-Complexity of Data Reviewed: Chronic conditions affecting care include a history of lower extremity surgeries. Differential diagnosis includes surgical wound dehiscence, infection at the surgical site, hematoma development, pseudo-gout related
inflammation, post-surgical bleeding complications, soft tissue injury due to mechanical stress, foreign body reaction, deep vein thrombosis, cellulitis, and peripheral vascular injury.
-Data:
Category 1
Non-emergency department records reviewed, including the patients outpatient records, specifically regarding ongoing antibiotic management.
Category 3
Discussion of management with the on-call vascular doctor regarding dressing application.
-Risk:
Consideration of Admission/Observation: Escalation of care including admission/observation was considered given the complexity and risk of the patients presenting complaint, exam findings, and their underlying comorbidities. However, ultimately, I
feel the patient is safe for outpatient management with close follow-up. Reasoning: Work-up reassuring, does not reveal any acute life/organ threatening processes, patients symptoms well controlled upon reevaluation, reexamination is reassuring,
vitals are stable, patient agreeable with discharge, reliable for follow-up.
DIAGNOSIS
- Surgical wound dehiscence (T81.31XA)
- Anemia unspecified (D64.9)
- Leukocytosis, unspecified (D72.829)
Past History
Past History
ED Past Medical History: CHF, HTN, IDDM, [place], Other (BKA right, Two toe amputation left, left heel debridement) and Other (Guillian Kouts, Chronic Inflammatory Demylinating Polyneuropathy)
ED Past Surgical History: Orthopedic (Right BKA, left two toe amputation, left heel debridement)
Social History
Tobacco: Non-smoker
Drug: None
Living: nursing home
Phy Exam
Physical Exam
Physical Exam:
See HPI
Course
Orders/Labs/Results
Orders:
Orders
05/14/25 11:23
Acetaminophen [Tylenol] 1,000 mg PO NOW STA
05/14/25 11:39
Complete Blood Count/With Diff Urgent
Abnormal Lab Results
05/14/25
11:39
WBC 21.4 H 10^3/uL
(4.8-10.8)
RBC 3.40 L 10^6/uL
(4.70-6.10)
Hgb 9.4 L g/dL
(13.0-18.0)
Hct 30.2 L %
(39.0-52.0)
MCHC 31.1 L g/dL
(33.0-37.0)
RDW 16.4 H %
(11.5-14.5)
Plt Count 774 H 10^3/uL
(130-400)
Abs Immat Gran (auto) 0.7 H 10^3/uL
(0-0.05)
Absolute Neuts (auto) 18.7 H 10^3/uL
(1.4-6.5)
Absolute Monos (auto) 0.8 H 10^3/uL
(0.1-0.6)
Immature Gran % 3.2 H %
(0-0.5)
Neutrophils % 87.3 H %
(42.2-75.2)
Lymphocytes % 5.6 L %
(20.5-51.1)
05/14/25 11:39
Vital Signs
Initial and Last Documented VS:
Initial Vital Signs
Temp Pulse Resp BP Pulse Ox
37.0 C 78 18 130/72 97
05/14/25 10:20 05/14/25 10:20 05/14/25 10:20 05/14/25 10:20 05/14/25 10:20
Last Documented Vital Signs
Temp Pulse Resp BP Pulse Ox
37.0 C 87 16 138/78 98
05/14/25 10:20 05/14/25 12:21 05/14/25 12:21 05/14/25 12:21 05/14/25 12:21
*Pulse Oximetry
SaO2: 97
Patient hypoxic: no
*Critical Care Note
Total Time (30-74mins, 75-104mins- exclusive of procedures): Not Applicable
ED Attending Note
-
Portions of this chart may have been created with voice recognition software.� Occasional wrong word or��sound alike� substitutions may have occurred due to the inherent limitations of voice recognition software.
Discharge Plan
Departure
Patient Disposition: Home (Routine Discharge)
Date of Disposition: 05/14/25
Time of Disposition: 12:18
Patient with high blood pressure during this ER visit?: Yes
Discharge Problem:
Surgical wound dehiscence
Instructions: Wound Care (DC), Wound Dehiscence (DC), BLOOD PRESSURE
Prescriptions:
No Action
atorvastatin 80 mg Tablet
80 mg PO HS
carvedilol 25 mg Tablet
25 mg PO BID
aspirin 81 mg Tablet,Delayed Release (Dr/Ec)
81 mg PO DAILY
isosorbide mononitrate 60 mg Tablet Extended Release 24 Hr
60 mg PO DAILY
pantoprazole [Protonix] 40 mg Tablet,Delayed Release (Dr/Ec)
40 mg PO DAILY
ranolazine 1,000 mg Tablet Extended Release 12 Hr
1,000 mg PO BID
gabapentin 300 mg Capsule
300 mg PO TID
duloxetine 30 mg Capsule,Delayed Release(Dr/Ec)
30 mg PO DAILY
clopidogrel 75 mg Tablet
75 mg PO DAILY
mirtazapine 30 mg Tablet
30 mg PO HS
ferrous sulfate [FeroSul] 325 mg (65 mg iron) Tablet
325 mg PO BID Qty: 10 0RF
Rx Instructions:
Stools may become darker/terrell with oral iron supplement.
Insulin Glargine Lantus [Lantus] 25 UNITS
Subcutaneous Insulin Syringe [Syringe-Insulin] 0 UNIT
As Directed mls/hr SC BID@0800,2200
Reason for use: Diabetes
Ordered By: Chiki Andrade MD, Resident
Last Taken: Unknown
(DME) CBC and CMP
See Rx Instructions .Route .MEDSUPPLY Qty: 1 0RF
Rx Instructions:
CBC and CMP to be done within one week of discharge.
(DME) Physical Therapy
See Rx Instructions .Route .MEDSUPPLY Qty: 1 0RF
Rx Instructions:
Outpatient Physical Therapy on discharge
(DME) Occupational Therapy
See Rx Instructions .Route .MEDSUPPLY Qty: 1 0RF
Rx Instructions:
Occupational Therapy on Discharge
docusate sodium 100 mg Capsule
100 mg PO BID Qty: 30 0RF
insulin aspart U-100 100 unit/mL (3 mL) Insulin Pen
10 unit SC AC Qty: 15 0RF
torsemide 5 mg Tablet
10 mg PO DAILY Qty: 30 0RF
fluconazole 200 mg Tablet
200 mg PO DAILY 9 Days Qty: 9 0RF
prednisone 20 mg Tablet
20 mg PO DAILY Qty: 3 0RF
amlodipine 5 mg Tablet
5 mg PO DAILY Qty: 30 0RF
insulin aspart U-100 100 unit/mL (3 mL) Insulin Pen
6 unit SC AC Qty: 3 0RF
Saccharomyces boulardii 250 mg Capsule
250 mg PO BID Qty: 30 0RF
vancomycin 50 mg/mL Recon Soln
125 mg PO Q6 5 Days Qty: 50 0RF
Insulin Glargine Lantus [Lantus] 18 UNITS
Subcutaneous Insulin Syringe [Syringe-Insulin] 0 UNIT
As Directed mls/hr SC BID@0800,2200
Ordered By: Elmo Novoa DO, Resident
Last Taken: Unknown
Referrals:
[facility] [Family Provider, General]
Guilherme Goode MD [Active, Plastic Surgery]
Activity Restrictions/Additional Instructions:
Your hemoglobin is 9.4 and was 10.0 yesterday and was 8.5 2 days ago. This is stable. Your WBC is high, but I see no signs of infection of your wounds. I spoke to the vascular doctor postal transportation clerk. He recommended the wet-to-dry dressing which we have
placed. I have also given the contact information for a learning development specialist if needed.
Discharge Date and Time
Print Language: IRISH
[2025-05-14] MEDS: TYLENOL 1000 MG PO (11:39)
[2025-05-14 11:57] LABS: Hematocrit 30.2 % (39.0-52.0); Hemoglobin 9.4 g/dL (13.0-18.0); Mean Corp Hgb Conc. 31.1 g/dL (33.0-37.0); Mean Corpuscular Volume 88.8 fL (80.0-94.0); Nucleated Red Blood Cells % 0 % (-); Platelet Count 774 10^3/uL (130-400); Red Cell Dist. Width 16.4 % (11.5-14.5)
[2025-05-14 12:21] VITALS: BP 138/78
[2025-05-14 12:40] VITALS: BP 125/79
== END 2025-05-14 12:40 | disposition home or self-care (01) ==
LOC: EMR 10:18
PROVIDERS: EMERGENCY PHYSICIAN Emergency Medicine
DX: T81.31XA Disruption of external operation (surgical) wound, not elsewhere classified, initial encounter (principal); Y83.8 Other surgical procedures as the cause of abnormal reaction of the patient, or of later complication, without mention of misadventure at the time of the procedure; E11.69 Type 2 diabetes mellitus with other specified complication; I11.0 Hypertensive heart disease with heart failure; I50.9 Heart failure, unspecified; I25.2 Old myocardial infarction; Z89.511 Acquired absence of right leg below knee
CPT/HCPCS: 99283; 85025

== ENCOUNTER 2025-05-16 18:17 | Inpatient (IN) | payer OTHER, SELFPAY ==
[2025-05-16] VITALS (9 sets, daily range): BP systolic 114–179; BP diastolic 75–90
--- NOTE | 2025-05-16 16:23 | ED.GENMED ---
History of Present Illness
General
Chief Complaint: Skin Problem
Time Seen by Provider: 05/16/25 16:23
History of Present Illness
History of Present Illness:
FOCUSED PAST MEDICAL HISTORY
- Diabetes, has had osteomyelitis, Guillain-Potts� syndrome, CIDP
REVIEW OF OLD RECORDS
- I reviewed records, the patient was to be on vancomycin orally through 05/18/2025 and fluconazole daily through 05/22/2025 due to symptomatic UTI growing Anna albicans
- The patient went to the OR with Dr. Cain on 05/06/2025 with concerns for right knee septic arthritis with infected femoral nail
- The patient was hospitalized with acute osteomyelitis of the left 1st, 2nd and 3rd metatarsal heads and wound dehiscence in March
- 04/21 went to OR w/ Dr. Paris for L BKA for chronic osteomyelitis LLE
Note:
CHIEF COMPLAINT(S)
Persistent hyperglycemia and potential wound infection.
HISTORY OF PRESENT ILLNESS
The patient is a 29-year-old male who presents with worsening symptoms since his last visit. He reports a recent history of chronic inflammatory demyelinating polyneuropathy (CIDP), which has been exacerbated by having influenza. During the COVID-19
pandemic, this condition was a significant issue. The patient has consistently experienced elevated blood glucose levels, ranging between 500 and 600 mg/dL, which he states typically occur during episodes of influenza. He mentions having discussed
this situation with another physician recently. Additionally, there is concern about a wound that appears worse than before and may require surgical evaluation. The wound is located on the left side, and there was an incident where his son,
identified indirectly in the conversation as a 20-year-old, had picked at it, making it worse. The patient was informed that blood work might be necessary, and there is consideration for involving surgery for further management.
PAST MEDICAL AND SURIGICAL HISTORY
Reported history of chronic inflammatory demyelinating polyneuropathy (CIDP).
RADIOLOGY
- CT left lower extremity pending
LABS
- White count 14.7, hemoglobin 9.8, glucose 612
UPDATE
-SUMMARY OF ENCOUNTER
The patient presented to the emergency department with persistent hyperglycemia and a potentially infected wound. Lab results revealed a white blood cell count of 14.7, glucose level of 612 mg/dL, normal bicarbonate levels, and slightly elevated
beta hydroxybutyrate at 0.72. The case was discussed with Dr. Castillo, who recommended admission to the medical service for antibiotic treatment. Dr. Ca agreed with resuming prior antibiotics, including cefazolin and daptomycin, with the pharmacy
assisting in dosing and ordering. Dr. Castillo also recommended CT imaging, which is still pending. The patient is to be admitted due to surgical wound dehiscence with complication and possible infection.
DISPOSITION
Admit.
ASSESSMENT
Potential wound infection with surgical wound dehiscence and persistent hyperglycemia.
MANAGEMENT OF THE PATIENTS CARE WAS DISCUSSED WITH
Discussion of management with Dr. Castillo and Dr. Ca. Pharmacy is assisting with antibiotic dosing and ordering.
INDEPENDENT REVIEW OF LABS AND INTERPRETATION OF TESTS
My independent review of the complete blood count shows leukocytosis with a white blood cell count of 14.7. My independent review of glucose indicates a hyperglycemic value of 612 mg/dL. My independent review of beta hydroxybutyrate indicates a
slight elevation at 0.72.
MEDICAL DECISION MAKING
-Number and Complexity of Problems Addressed: Chronic conditions affecting care include chronic inflammatory demyelinating polyneuropathy (CIDP), persistent hyperglycemia, and potential wound infection with dehiscence. Differential diagnosis
includes wound infection, hyperglycemic crisis, or potential for diabetic ketoacidosis.
-Data:
Category 3
Discussion of management with other physicians: Case discussed with Dr. Castillo, who recommended admission and Dr. Ca, who agreed with resuming prior antibiotics.
DIAGNOSIS
Hyperglycemia (ICD-10: E11.65)
Surgical Wound Dehiscence with possible surgical wound infection
Past History
Past History
ED Past Medical History: CHF, HTN, IDDM, [place], Other (BKA right, Two toe amputation left, left heel debridement) and Other (Guillian Bastrop, Chronic Inflammatory Demylinating Polyneuropathy)
ED Past Surgical History: Orthopedic (Right BKA, left two toe amputation, left heel debridement)
Social History
Tobacco: Non-smoker
Drug: None
Living: retirement
Phy Exam
Physical Exam
Physical Exam:
See HPI
Course
Orders/Labs/Results
Orders:
Orders
05/16/25 16:32
0.9% Sodium Chloride 1000 ml [Nss] 1,000 ml IV BOLUS
05/16/25 16:43
CT Lower Ext W/iv Cont Lt Urgent
Comment:
Reason For Exam: eval for infection; worsening post op appearance
05/16/25 16:44
Acetaminophen [Tylenol] 1,000 mg PO NOW STA
05/16/25 17:21
Acetone [B-Hydroxybutyrate] Urgent
Complete Blood Count/With Diff Urgent
Comprehensive Metabolic Panel Urgent
Wound Culture [Wound/Abscess/Other Culture] Urgent
SABAS Source: Surgical Wound
Specimen Description:
Date Specimen was Collected: 05/16/25
Time Specimen was Collected: 16:54
05/16/25 17:49
Admit/Transfer Patient As Directed
Co-Sign Provider:
Level of Care: Inpatient admission
Assign to:: Medical/Surgical
Physician / Group: mahin
Diagnosis: left BKA wound infection
Reason for Hospitalization: left BKA wound infection
Expected length of stay greater than two midnights?: Yes
ELOS- Estimated Length of Stay in days: 3
I certify the patient meets the requirements for IP care: Yes
PRN Pain Medication Management As Directed
May give lesser potent ordered pain med per pt: Yes
preference::
Protocol:: Medication orders for pain may be administered in a
manner that supports deferring to patient preference
when the pt is:
- Requesting an ordered lesser potent pain medication.
Least to most potent pain medications are defined
as: acetaminophen < NSAID < tramadol < opioids
(morphine, oxycodone, hydromorphone).
- Requesting a lesser dose of the same medication IF
ORDERED.
- Requesting a less intrusive route of administration
if both routes are prescribed by the provider (PO <
IV).
05/16/25 17:52
Code Status As Directed
Resuscitation Status: Full Code
05/16/25 18:00
CefTAZidime/AVIBACTAM [Avycaz] 2,500 mg 0.9% Sodium Chloride [Nss] 50 ml IV Q8H
DAPTOmycin [Cubicin] 900 mg Syringe [Syringe-Pump] 0 ml IV Q24H
05/16/25 18:04
HYDROmorphone [Dilaudid] 1 mg IV Q4HPRN PRN
Abnormal Lab Results
05/16/25
17:21
WBC 14.7 H 10^3/uL
(4.8-10.8)
RBC 3.48 L 10^6/uL
(4.70-6.10)
Hgb 9.8 L g/dL
(13.0-18.0)
Hct 31.8 L %
(39.0-52.0)
MCHC 30.8 L g/dL
(33.0-37.0)
RDW 16.8 H %
(11.5-14.5)
Plt Count 693 H 10^3/uL
(130-400)
Abs Immat Gran (auto) 0.4 H 10^3/uL
(0-0.05)
Absolute Neuts (auto) 12.1 H 10^3/uL
(1.4-6.5)
Absolute Monos (auto) 0.9 H 10^3/uL
(0.1-0.6)
Immature Gran % 2.9 H %
(0-0.5)
Neutrophils % 82.2 H %
(42.2-75.2)
Lymphocytes % 8.7 L %
(20.5-51.1)
Sodium 127 L mmol/L
(135-145)
Chloride 90 L mmol/L
(98-107)
BUN 25 H mg/dl
(9-20)
Glucose 612 H* mg/dl
(70-99)
Calcium 8.2 L mg/dl
(8.4-10.2)
B-Hydroxybutyrate 0.72 H mmol/L
(0.02-0.27)
05/16/25 17:21
05/16/25 17:21
Vital Signs
Initial and Last Documented VS:
Initial Vital Signs
Temp Pulse Resp BP Pulse Ox
37.2 C 100 18 179/88 98
05/16/25 16:22 05/16/25 16:22 05/16/25 16:22 05/16/25 16:22 05/16/25 16:22
Last Documented Vital Signs
Temp Pulse Resp BP Pulse Ox
37.2 C 99 14 151/90 98
05/16/25 16:22 05/16/25 17:15 05/16/25 17:15 05/16/25 17:01 05/16/25 17:15
*Pulse Oximetry
Patient hypoxic: no
*Critical Care Note
Total Time (30-74mins, 75-104mins- exclusive of procedures): Not Applicable
ED Attending Note
-
Portions of this chart may have been created with voice recognition software.� Occasional wrong word or��sound alike� substitutions may have occurred due to the inherent limitations of voice recognition software.
Discharge Plan
Departure
Patient Disposition: Admit
Date of Disposition: 05/16/25
Time of Disposition: 18:20
Presentation/result/management discussed w/ accepting MD/DO: Hospitalist
Discharge Problem:
Post surgical complication
Interventions
Interventions:
*Risk Screen - Suicide Last Done: 05/16/25 16:22
*General Assessment Last Done: 05/16/25 16:22
*Neglect/Abuse Screening Last Done: 05/16/25 16:22
*ED- Fall Risk Assessment Last Done: 05/16/25 17:19
*ED COVID-19 Vaccine History Last Done: 05/16/25 17:19
*ED Influenza Vaccine History Last Done: 05/16/25 17:19
ED-Skin Assessment Last Done: 05/16/25 16:33
--- NOTE | 2025-05-16 16:51 | HPS.HSE ---
Addendum entered and electronically signed by Moriah Alan MD 05/16/25 18:38:
This is an addendum to H&P written by Rebecca Marie on 05/16/2025. �Patient seen and examined independently with SUB ACUTE CARE NURSE.
29-year-old male past medical history of osteomyelitis of left foot status post TMA and BKA on 04/21, PAD status post C. difficile colitis, pseudogout, anemia, type 1 diabetes, GERD, GBS/CIDP with history of plasma exchange, hypertension, CAD, heart
failure, hyperlipidemia, chronic urinary retention/neurogenic bladder self catheterizes, GERD, anxiety/depression, gallstones, CKD 3A, presenting with recurrent dehiscence of BKA after falling on the knee.�
Patient was recently admitted from 03/23 to 05/13 for wound dehiscence of left foot transmetatarsal amputation site. �Original surgery was on 03/08. �She had acute blood loss anemia secondary to this. �Vascular send showed no significant arterial
stenosis however Doppler waveforms suggested disease within the distal vasculature. �Wound cultures grew MRSA and VRE E. �He underwent debridement on 03/25. �He had focal osteomyelitis. �He underwent revision of the transmetatarsal amputation and
wound debridement on 04/04 with significant drainage postoperatively. �He had revision surgery of the left foot. �04/13 he underwent debridement with Lisfranc disarticulation. �Eventually he underwent below-knee amputation on 04/20. �He was treated
with IV daptomycin and Avycaz. �During the course of hospitalization he received 13 units of blood.
Hospitalization was also complicated by right knee pain and swelling with joint effusion. �He had aspiration showing greater than 90,000 WBCs and crystals. �Cultures were negative. �He is on prednisone for pseudogout.
Hospital course also complicated by diarrhea secondary to C. difficile. �He was started on p.o. vancomycin orally for 10 days but developed itching so later Dificid was started. �Developed adverse reaction to Dificid including clamminess and
itchiness. �Dificid was changed back to vancomycin.
Patient also had AMBER treated with discontinued of torsemide and IV fluids. �Creatinine increased during hospitalization because patient was not self-catheterization
Vital signs today show blood pressure 179/88. �Heart rate of 100.
Labs shows blood sugar 600 without anion gap.�
Vascular surgery consulted. �Check CT scan of the leg. �IV fluids were given. �Start daptomycin and Avycaz again. �Vascular surgery consulted. �ID consulted. �Continue fluconazole for Nikki albicans UTI. �Continue p.o. vancomycin for C. difficile
infection. �Dilaudid for pain.
12 units regular insulin being given for hyperglycemia likely from prednisone. Continue usual Lantus dosing and stop prednisone which completes today.�
Original Note:
Family Physician
-
Family Physician: [facility]. [facility]
Chief Complaint
-
left BKA wound dehiscence
History of Present Illness
29-year-old with past medical history for type 1 diabetes, CIDP, hypertension, GERD, CKD, osteomyelitis with right BKA, left foot osteomyelitis and wound to high sense of left transmetatarsal amputation presented to us with left foot dehiscence. he
had multiple falls since the discharge and wounds got dehisced. patient stated worsening fatigue and weakness due to CIDP. he has not received IVIG or plasma exchange since the september. he is falling due to the weakness as he try to transfer himself
between the bed, commode and shower chair. patient stated low grade temp of 100.6. denied SHANNON. stated some chills. he is complaining of dizziness. denied chest pain,sob. denied abdominal pain. he is still having diarrhea. denied dizzy or hematuria.
Patient was recently admitted to from 03/05 - 03/18 for osteomyelitis of the L foot. He initially underwent amputation of 1st two digits of the L foot on 01/21/25. He returned with wound dehiscence and ultimately required TMA and heel debridement
(03/08/25).OR cultures: MDR-Enterobacter, MSSA, proteus, enterococcus. Heel pathology negative for osteomyelitis
- Antibiotic discontinued on 03/16. Went to the OR on 03/25/2025 for I&D, removal of necrotic bone and amputation site, heel wound debridement and wound VAC-cultures grew VRE and MRSA. Wound pathology showed acute osteomyelitis.
Status post revision on 04/04/2025-open TMA revision , removal of nonviable bone and heel wound debridement down to subcutaneous tissue-cultures Enterobacter Cloacae. Pathology clearing fragment chronic osteomyelitis
04/13/2025-Status post left Lisfranc disarticulation, heel wound debridement, plantar flap. Cultures with Enterobacter.
S/P BKA on 04/21/2026
patient recived a dose of ceftazidime and daptomycin in ER. admitting for further managment.
Medical History
Past Medical History
Past Medical History: Reports Other
Additional Past Medical History:
Type 1 diabetes, CKD, nephrosclerosis, hyperlipoproteinemia, coronary artery disease
Past Surgical History: Reports Other
Additional Past Surgical History:
BKA amputation, multiple foot surgery
Social History
Alcohol: None
Drug: None
Living: Care Home
Family History
Family History: Not pertinent
Allergies / Home Medications
Allergies reflects when Allergies were last updated in [facility].
Home Medications with original date entered in [facility]
Allergy/Medication List:
Allergies
Allergy/AdvReac Type Severity Reaction Status Date / Time
cefepime Allergy Itching, Verified 05/14/25 10:27
rash
ibuprofen Allergy Unknown Verified 05/14/25 10:27
meropenem Allergy Itching, Verified 05/14/25 10:27
rash
oxycodone Allergy Unknown Verified 05/14/25 10:27
Penicillins Allergy Unknown Verified 05/14/25 10:27
silver Allergy Hives Verified 05/14/25 10:27
silver nitrate Allergy Hives Verified 05/14/25 10:27
sweet potato Allergy Unknown Verified 05/14/25 10:27
tuna oil Allergy Unknown Verified 05/14/25 10:27
turkey Allergy Unknown Verified 05/14/25 10:27
vancomycin Allergy Itchy Rash Verified 05/14/25 10:27
Home Medications
aspirin 81 mg tablet,delayed release 81 mg PO DAILY Blood Clot Prevention/Tx 02/02/25
atorvastatin 80 mg tablet 80 mg PO HS High Cholesterol 02/02/25
carvedilol 25 mg tablet 25 mg PO BID Heart Failure 02/02/25
isosorbide mononitrate 60 mg tablet,extended release 24 hr 60 mg PO DAILY Heart Disease/Condition 02/02/25
ranolazine 1,000 mg tablet,extended release,12 hr 1,000 mg PO BID Heart Disease/Condition 02/02/25
duloxetine 30 mg capsule,delayed release 30 mg PO DAILY Mental Health/Anxiety 02/07/25
gabapentin 300 mg capsule 300 mg PO TID NEUROPATHIC PAIN 02/07/25
mirtazapine 30 mg tablet 30 mg PO HS Mental Health/Anxiety 03/23/25
docusate sodium 100 mg capsule 100 mg PO BID Constipation #30 caps 04/30/25
ferrous sulfate 325 mg (65 mg iron) tablet (FeroSul) 325 mg PO BID anemia #10 tabs 04/30/25
torsemide 5 mg tablet 10 mg (2 x 5 mg) PO DAILY Fluid retention/Swelling #30 tabs 05/01/25
fluconazole 200 mg tablet 200 mg PO DAILY UTI 9 days #9 tabs 05/13/25
Saccharomyces boulardii 250 mg capsule 250 mg PO BID Gastrointestinal Issue 05/16/25
amlodipine 5 mg tablet 5 mg PO DAILY Blood Clot Prevention/Tx 05/16/25
insulin glargine 100 unit/mL (3 mL) subcutaneous pen (Lantus Solostar U-100 Insulin) 18 unit SC BID Diabetes 05/16/25
insulin regular human 100 unit/mL injection solution (Humulin R Regular U-100 Insulin) 6 sliding scale dose SC ACHS Diabetes 05/16/25
prednisone 20 mg tablet 20 mg PO DAILY Infection 05/16/25
vancomycin 125 mg capsule 125 mg PO QID Infection 05/16/25
Review of Systems
-
Constitutional: Reports No Symptoms
EENT: Reports No Symptoms
Respiratory: Reports No Symptoms
Cardiac: Reports No Symptoms
Abdomen/GI: Reports No Symptoms
: Reports No Symptoms
Musculoskeletal: Reports No Symptoms
Skin: Reports Other (left BKA with dehisced wound, left stump wounds)
Neurological: Reports No Symptoms
Endocrine: Reports No Symptoms
Hematologic/Lymphatic: Reports No Symptoms
Psych: Reports No Symptoms
Physical Exam
Vital Signs
Vital Signs
Temp Pulse Resp BP Pulse Ox
99 F 100 18 179/88 98
05/16/25 16:22 05/16/25 16:22 05/16/25 16:22 05/16/25 16:22 05/16/25 16:22
Physical Exam
General: Well Developed, Well Nourished and No Apparent Distress
HEENT: NormoCephalic, Moist mucous membranes and Atraumatic
Respiratory: Clear
Cardiac: S1/S2 and Regular Rhythm; No Murmur or Rub
GI: Soft, Non Tender, Non Distended and Normal Bowel Sounds; No Organomegaly
Rectal: Deferred by Provider
Musculoskeletal: No Clubbing, No Cyanosis and No Edema
Skin: Rash and Other (left dehisced wound and right stumps wounds)
Neuro: AO x 3 and Nonfocal/grossly intact
Psych: Calm
Impression/Plan
-
#BKA infection
# Left foot BKA with wound dehiscence
-plan for washout and revision as per vascular
-Dapto and Acycaz continued
-ID and vascular consulted
-Tylenol prn for pain
-Dilaudid prn for pain
-wound culture sent from ER
-CT of LE pending
# Right BKA site
#pseudogout on right BKA
-wound care consulted
-finished the course of prednisone today.
#C. difficile colitis.
-Continue vancomycin
#History of coronary artery disease.
#essential htn
-Norvasc,coreg,imdur continued with hold parameter
-asa continued
-statin continued
-ranolazine continued
-torsemide
#anxiety
-duloxetine continued
-Remeron continued for anxiety
#iron def anemia
-ferrous sulfate continued
#History of type 1 diabetes with hyperglycemia and neuropathy
-gabapentin continued
-Lantus continued
-sliding scale
-CHO diet
#hxt of CKD IIIa
#urinary retention
-bladder scan and q6h stright cath
#nikki albicans UTI
- Start Fluconazole through 05/22
Guillain-Potts� syndrome/CIDP, plasma exchange q 2 months
FULL CODE
DVT prophylaxis
-heparin sq
[2025-05-16] MEDS: TYLENOL 1000 MG PO (17:08)
[2025-05-16] MEDS: NSS 1000 IV (17:16)
[2025-05-16 17:38] LABS: Hematocrit 31.8 % (39.0-52.0); Hemoglobin 9.8 g/dL (13.0-18.0); Mean Corp Hgb Conc. 30.8 g/dL (33.0-37.0); Mean Corpuscular Volume 91.4 fL (80.0-94.0); Nucleated Red Blood Cells % 0 % (-); Red Cell Dist. Width 16.8 % (11.5-14.5)
[2025-05-16 17:49] LABS: Platelet Count 693 10^3/uL (130-400)
[2025-05-16 18:03] LABS: ALT (SGPT) 21 U/L (0-50); AST (SGOT) 19 U/L (17-59); Albumin 3.6 g/dl (3.5-5.0); Alkaline Phosphatase 120 U/L (38-126); Blood Urea Nitrogen 25 mg/dl (9-20); Calcium 8.2 mg/dl (8.4-10.2); Carbon Dioxide 28 mmol/L (22-30); Chloride 90 mmol/L (98-107); Potassium 4.8 mmol/L (3.5-5.1); Sodium 127 mmol/L (135-145); Total Protein 7.0 g/dl (6.3-8.2); eGFR > 60.00
[2025-05-16 18:09] LABS: Glucose 612 mg/dl (70-99)
[2025-05-16] MEDS: NOVOLIN R 12 UNITS SC (19:00)
[2025-05-16] MEDS: DILAUDID 1 MG IV ×2 (19:01→23:49)
[2025-05-16] MEDS: CUBICIN 18 MG IV (19:04)
[2025-05-16 20:16] LABS: Glucose - Point of Care 471 mg/dl (70-99)
[2025-05-16 22:06] LABS: Glucose 370 mg/dl (70-99)
[2025-05-16] MEDS: COREG 25 MG PO (23:06)
[2025-05-16] MEDS: COLACE PO (23:06)
[2025-05-16] MEDS: FEOSOL 325 MG PO (23:08)
[2025-05-16] MEDS: NEURONTIN 300 MG PO (23:09)
[2025-05-16] MEDS: REMERON 30 MG PO (23:10)
[2025-05-16] MEDS: FIRVANQ 125 MG PO (23:11)
[2025-05-16] MEDS: LIPITOR 80 MG PO (23:13)
[2025-05-16 23:57] LABS: Glucose - Point of Care 277 mg/dl (70-99)
[2025-05-17] VITALS (8 sets, daily range): BP systolic 99–114; BP diastolic 55–75
[2025-05-17] MEDS: FLORASTOR 250 MG PO ×3 (00:03→22:15)
[2025-05-17] MEDS: RANEXA EXTENDED RELEASE 1000 MG PO ×3 (00:05→22:15)
[2025-05-17] MEDS: LANTUS 0.18 UNITS SC ×3 (00:34→21:48)
[2025-05-17 03:54] LABS: Glucose - Point of Care 257 mg/dl (70-99)
[2025-05-17] MEDS: DILAUDID 1 MG IV ×2 (04:04→08:33)
[2025-05-17 07:14] LABS: Hematocrit 26.4 % (39.0-52.0); Hemoglobin 8.2 g/dL (13.0-18.0); Mean Corp Hgb Conc. 31.1 g/dL (33.0-37.0); Mean Corpuscular Volume 89.8 fL (80.0-94.0); Platelet Count 560 10^3/uL (130-400); Red Cell Dist. Width 17.1 % (11.5-14.5)
[2025-05-17] MEDS: COLACE 100 MG PO (07:43)
[2025-05-17] MEDS: NEURONTIN 300 MG PO ×3 (07:43→21:49)
[2025-05-17] MEDS: CYMBALTA DELAYED RELEASE 30 MG PO (07:44)
[2025-05-17] MEDS: IMDUR (EXTENDED RELEASE) 60 MG PO (07:44)
[2025-05-17] MEDS: ASPIR LOW (ENTERIC COATED) 81 MG PO (07:44)
[2025-05-17] MEDS: FEOSOL 325 MG PO ×2 (07:44→19:51)
[2025-05-17] MEDS: DIFLUCAN 200 MG PO (07:44)
[2025-05-17] MEDS: FIRVANQ 125 MG PO ×2 (07:45→14:58)
[2025-05-17] MEDS: DEMADEX 10 MG PO (07:48)
[2025-05-17] MEDS: COREG 25 MG PO ×2 (07:48→19:52)
[2025-05-17] MEDS: NORVASC 5 MG PO (07:49)
[2025-05-17 07:53] LABS: Blood Urea Nitrogen 21 mg/dl (9-20); Calcium 7.9 mg/dl (8.4-10.2); Carbon Dioxide 31 mmol/L (22-30); Chloride 96 mmol/L (98-107); Estimated Creatinine Clearance 123 ml/min; Glucose 291 mg/dl (70-99); Potassium 4.0 mmol/L (3.5-5.1); Sodium 134 mmol/L (135-145); eGFR > 60.00
[2025-05-17 08:01] LABS: Glucose - Point of Care 312 mg/dl (70-99)
[2025-05-17] MEDS: NOVOLOG FLEXPEN-MODERATE RESISTANCE 7 UNITS SC (08:33)
--- NOTE | 2025-05-17 08:37 | CON.ID ---
Consultation
-
Date/Time Consultation Requested: 05/16/2025 2156
Date/Time Consultation Performed: 05/17/2025 0840
Requesting Provider: DONTE Christine
Performing Provider: Dr. Mary Kay Ca
Reason for Consultation: Left stump wound dehiscence
Chief Complaint / Past History
Chief Complaint
left stump wound
History of Present Illness
29-year-old male currently incarcerated presented to ED 05/16 due to left BKA wound dehiscence. He is well-known to Infectious Disease service with history of diabetes mellitus, CAD, Guillain-Potts� syndrome/CIDP, right BKA, multiple
hospitalizations for left foot osteo, recent prolonged hosp stay 03/23 - 05/13 failed multiple left foot amp revisions leading to Left BKA 04/21/25; developed C.. diff diarrhea; developed acute right knee effusion, synovial fluid off abx neg, +
CPPD, s/p removal right femur raza - OR cx neg off abx, abx's dc'd and placed on short course of steroid for pseudogout. Also c/o symptomatic C. albicans UTI - placed on po fluconazole. He was discharged back to [facility] 05/13. While in correction, he was
crawling on his stumps to reach the toilet sustaining small wound dehiscence. He presented to ED 05/14, stump looked find and discharged back to [facility]. He then fell while trying to get to the toilet. He landed on the concrete fall. The left stump
incision totally dehisced with bleeding. He was finally brought to ED yesterday. CT showed 4.2 cm abscess medial to the tibial diaphysis deep to wound. He is currently on daptomycin and Avycaz. He denies fevers or chills. He reports dysuria
persists despite fluconazole. Diarrhea overall improved. Right knee better.
Past History
Additional Past Medical History:
Diabetes mellitus
CAD status post PCI
CHF
hx CKD3
Hypertension
Guillain-Potts� syndrome/CIDP, plasma exchange q 2 months
C. diff (05/02/25)
PAD status post right BKA ([place])
L foot osteo s/p LLE BKA (04/21/25) after failed multiple revisions/TMA
R femoral raza removal 05/06/25; cultures negative (before abx).
Pseudogout (R knee)
Allergy History:
cefepime Allergy (Verified 05/14/25 10:27)
Itching, rash
ibuprofen Allergy (Verified 05/14/25 10:27)
Unknown
meropenem Allergy (Verified 05/14/25 10:27)
Itching, rash
oxycodone Allergy (Verified 05/14/25 10:27)
Unknown
Penicillins Allergy (Verified 05/14/25 10:27)
Unknown
silver Allergy (Verified 05/14/25 10:27)
Hives
silver nitrate Allergy (Verified 05/14/25 10:27)
Hives
sweet potato Allergy (Verified 05/14/25 10:27)
Unknown
tuna oil Allergy (Verified 05/14/25 10:27)
Unknown
turkey Allergy (Verified 05/14/25 10:27)
Unknown
vancomycin Allergy (Verified 05/14/25 10:27)
Itchy Rash
Medications Reviewed: Yes
Current Antibiotics:
Daptomycin
Avycaz
Social History
Tobacco: Non-Smoker
Alcohol: None
Drug: None
Living: Penitentiary
Family History
Family History: Not Pertinent
Review of Systems
Review of Systems
General: Negative Fever, Chills or Change in Appetite
HEENT: Negative Sinus Problems, Headache or Pharyngitis
Cardiovascular: Negative Chest Pain or Dyspnea
Respiratory: Negative Dyspnea or Cough
Gasteroenterology: Negative Nausea or Vomiting
Genital / Urological: Dysuria; Negative Flank Pain
All systems: All other systems were reviewed and were negative
Vital Signs
Temp Pulse Resp BP Pulse Ox
97.1 F 77 24 130/75 97
05/17/25 04:16 05/17/25 07:49 05/17/25 06:00 05/17/25 07:49 05/17/25 06:00
Physical Exam
Physical Exam
Constitutional: No Acute Distress and Comfortable
Head: Other
Eyes: No Conjunctival Hemorrhage and Sclera Anicteric
Cardiovascular: Regular Rate and S1/S2
Pulmonary: Clear
Gastrointestinal: Soft, Non Tender, Non Distended and Normal Bowel Sounds
Genito-Urinary: Negative CVA Tenderness
Extremities: Negative Edema
Wound: Other (Left BKA stump total dehiscence with granulation tissue, old blood, no bone exposed, no surrounding eythema. R BKA and thigh incisions with clean trino, stump with superfical wound. )
Neurological: AO x 3
Lab / Diagnostic Study Results
05/17/25 06:57
05/17/25 06:57
Abs Immat Gran (auto) 0.4 10^3/uL (0-0.05) H 05/16/25 17:21
Absolute Neuts (auto) 12.1 10^3/uL (1.4-6.5) H 05/16/25 17:21
Absolute Lymphs (auto) 1.3 10^3/uL (1.2-3.4) 05/16/25 17:21
Absolute Monos (auto) 0.9 10^3/uL (0.1-0.6) H 05/16/25 17:21
Absolute Basos (auto) 0.0 10^3/uL (0-0.2) 05/16/25 17:21
Immature Gran % 2.9 % (0-0.5) H 05/16/25 17:21
Neutrophils % 82.2 % (42.2-75.2) H 05/16/25 17:21
Lymphocytes % 8.7 % (20.5-51.1) L 05/16/25 17:21
Monocytes % 5.9 % (1.7-9.3) 05/16/25 17:21
Eosinophils % 0.0 % (0-6) 05/16/25 17:21
Basophils % 0.3 % (0-2) 05/16/25 17:21
Microbiology Results
Micro:
05/16/25 17:21 Wound Culture - Pending
Surgical Wound Gram Stain - Pending
05/16/25 CT LLE:
1. LARGE 10.8 cm OPEN WOUND overlying the anterior and distal aspect of the tibial diaphysis at the site of the XALID-IHJ-LYWK AMPUTATION.
2. 4.2 cm ABSCESS medial to the tibial diaphysis deep to the wound.
3. Mild soft tissue emphysema around the tibial diaphysis.
4. No CT evidence for acute osteomyelitis.
5. Severe peripheral arterial calcific atherosclerotic disease.
Assessment / Plan
# Left BKA stump dehiscence due to fall. (s/p L BKA 04/21/25)
# Left BKA 'abscess' on CT. No osteo.
# Multiple abx allergies.
- For I+D per Vascular, send culture.
- Continue Daptomycin and ceftaz/avibactam pending cx.
# Leukocytosis
- Due to recent steroid for R knee pseudogout
# Recent Symptomatic UTI
- Straight cath Ucx: C. albicans
- Continue fluconazole 200mg po qd x 10 d through 05/22/25.
# Recent C. difficile, first episode
- Completed 14 days of po Vanco.
- Can decrease to prophylactic dose Vanco 125 mg po daily while on systemic abx's.
Conditions present on admission:
Diabetes mellitus
CAD status post PCI
CHF
hx CKD3
Hypertension
Guillain-Potts� syndrome/CIDP, plasma exchange q 2 months
C. diff (05/02/25)
PAD status post right BKA ([place])
L foot osteo s/p LLE BKA (04/21/25) after failed multiple revisions/TMA
R femoral raza removal 05/06/25; cultures negative (before abx).
Pseudogout (R knee)
--- NOTE | 2025-05-17 08:52 | CON.VAS ---
Addendum entered and electronically signed by Christoph Castillo III, MD 05/17/25 20:44:
This patient was seen and examined in collaboration with DONTE Gonzalez. I agree with the history and physical exam as well as the assessment and plan. I have the following additions:
Recent left BKA
[facility]reported fall at [facility]
Now with BKA dehiscence
On exam he is tender
Non toxic
Deeper BKA tissue looks to be intact but exam limited due to pain
Plan for washout and possible VAC dressing 05/18/2025. Possible revision BKA.
Stump protector
Signed:
Christoph Castillo III, MD
Vascular Surgery
[facility]
Original Note:
Consultation
Consultation Request
Date/Time Consultation Performed: 05/17/25 0900
Requesting Provider: Hospitalist
Performing Provider: Mary Kay Krause NP-C for Christoph Castillo III, MD
Reason for Consultation: Dehisced left BKA site
Medical History
-
Chief Complaint: Dehisced left BKA site
History of Present Illness:
This is a 29-year-old male with significant past medical history for CAD with 4 stents, type 1 diabetes, hypertension, heart failure, Guillian Potts�, GERD, CKD 3, right BKA, status post left hallux and second digit amputation due to osteomyelitis on
01/21/2025 in hospital in [place] who presents to [place] ED today reporting dehisced left BKA site. Patient underwent left below the knee amputation due to nonsalvageable left lower extremity on 04/21/[address] Jose Paris M.D.. He was
hospitalized with that admission from 03/23/2025 to 05/13/2025. He was seen by our team on 05/12/2025 and had skin trino removed at that time with evidence of completely healed surgical incision. Patient endorses that he fell at least twice
following discharge from the hospital causing left BKA stump site dehiscence. Please see photo below. Patient indicates once wound dehisced he was having difficulty controlling blood sugars prompting ED evaluation. He offers no other complaints.
Longterm guards accompanying patient at this time indicate that there is a concern that he may be prompting surgical breakdown with intentional falls or banging of surgical stump site on bed rails, patient denies. Cannot confirm as this has not been
witnessed while he has been inpatient.
Past Medical History
Past Medical History: CAD, CHF, GERD, HTN, IDDM and Other (CAD with 4 stents, type 1 diabetes, hypertension, heart failure, Guillian Potts�, GERD, CKD 3, right BKA, status post left hallux and second digit amputation due to osteomyelitis on 01/21/2025
in hospital in [facility])
Past Surgical History: Other (Left BKA)
Social History
Tobacco: Non-Smoker
Alcohol: None
Drug: None
Living: Longterm
Allergies / Home Medications
Allergy/AdvReac Type Severity Reaction Status Date / Time
cefepime Allergy Itching, Verified 05/14/25 10:27
rash
ibuprofen Allergy Unknown Verified 05/14/25 10:27
meropenem Allergy Itching, Verified 05/14/25 10:27
rash
oxycodone Allergy Unknown Verified 05/14/25 10:27
Penicillins Allergy Unknown Verified 05/14/25 10:27
silver Allergy Hives Verified 05/14/25 10:27
silver nitrate Allergy Hives Verified 05/14/25 10:27
sweet potato Allergy Unknown Verified 05/14/25 10:27
tuna oil Allergy Unknown Verified 05/14/25 10:27
turkey Allergy Unknown Verified 05/14/25 10:27
vancomycin Allergy Itchy Rash Verified 05/14/25 10:27
�Medication �Instructions �Recorded �Confirmed �Type
aspirin 81 mg tablet,delayed 81 mg PO DAILY Blood Clot 02/02/25 05/16/25 History
release Prevention/Tx
atorvastatin 80 mg tablet 80 mg PO HS High Cholesterol 02/02/25 05/16/25 History
carvedilol 25 mg tablet 25 mg PO BID Heart Failure 02/02/25 05/16/25 History
isosorbide mononitrate 60 mg 60 mg PO DAILY Heart 02/02/25 05/16/25 History
tablet,extended release 24 hr Disease/Condition
ranolazine 1,000 mg 1,000 mg PO BID Heart 02/02/25 05/16/25 History
tablet,extended release,12 hr Disease/Condition
duloxetine 30 mg capsule,delayed 30 mg PO DAILY Mental 02/07/25 05/16/25 History
release Health/Anxiety
gabapentin 300 mg capsule 300 mg PO TID NEUROPATHIC PAIN 02/07/25 05/16/25 History
mirtazapine 30 mg tablet 30 mg PO HS Mental Health/Anxiety 03/23/25 05/16/25 History
docusate sodium 100 mg capsule 100 mg PO BID Constipation #30 caps 04/30/25 05/16/25 Rx
ferrous sulfate 325 mg (65 mg 325 mg PO BID anemia #10 tabs 04/30/25 05/16/25 Rx
iron) tablet (FeroSul)
torsemide 5 mg tablet 10 mg (2 x 5 mg) PO DAILY Fluid 05/01/25 05/16/25 Rx
retention/Swelling #30 tabs
fluconazole 200 mg tablet 200 mg PO DAILY UTI 9 days #9 tabs 05/13/25 05/16/25 Rx
Saccharomyces boulardii 250 mg 250 mg PO BID Gastrointestinal 05/16/25 05/16/25 History
capsule Issue
amlodipine 5 mg tablet 5 mg PO DAILY Blood Clot 05/16/25 05/16/25 History
Prevention/Tx
insulin glargine 100 unit/mL (3 18 unit SC BID Diabetes 05/16/25 05/16/25 History
mL) subcutaneous pen (Lantus
Solostar U-100 Insulin)
insulin regular human 100 unit/mL 6 sliding scale dose SC ACHS 05/16/25 05/16/25 History
injection solution (Humulin R Diabetes
Regular U-100 Insulin)
prednisone 20 mg tablet 20 mg PO DAILY Infection 05/16/25 05/16/25 History
vancomycin 125 mg capsule 125 mg PO QID Infection 05/16/25 05/16/25 History
Review of Systems
-
History Source: Patient
Constitutional: Reports Fatigue
EENT: Reports No Symptoms
Respiratory: Reports No Symptoms
Cardiac: Reports No Symptoms
: Reports No Symptoms
Musculoskeletal: Reports No Symptoms
Skin: Reports Other (Left BKA stump site with superficial breakdown)
Neurological: Reports No Symptoms
Endocrine: Reports No Symptoms
Physical Exam
Vital Signs
Temp Pulse Resp BP Pulse Ox
97.1 F 77 24 130/75 97
05/17/25 04:16 05/17/25 07:49 05/17/25 06:00 05/17/25 07:49 05/17/25 06:00
Lab Results
05/17/25 06:57
05/17/25 06:57
Physical Exam
General: No Apparent Distress
HEENT: Normocephalic, Anicteric and Atraumatic
Respiratory: Non Labored Respirations
Cardiac: Negative JVD
GI: Non Distended
Musculoskeletal: No Edema
Skin: Warm and Other (Left BKA stump site with superficial first layer breakdown, non-malodorous, no evidence of drainage)
Neuro: AO x 3
Assessment / Plan
-
Assessment: 29-year-old male status post left below the knee amputation on 04/21/2026 who presents to [facility] ED with superficial skin breakdown of amputation site following reports of multiple falls
Plan:
Will plan for washout and possible VAC placement in operating room tomorrow 05/18/2025
Agree with continuation of antibiotics
N.p.o. at midnight
Plan reviewed with attending Dr. Christoph Castillo III
[2025-05-17 09:09] LABS: Glycohemoglobin (HgbA1c) 6.6 % (4.0-5.9)
[2025-05-17 11:29] LABS: Glucose - Point of Care 258 mg/dl (70-99)
[2025-05-17] MEDS: NOVOLOG FLEXPEN-MODERATE RESISTANCE 5 UNITS SC (12:12)
[2025-05-17] MEDS: NOVOLOG FLEXPEN 6 UNITS SC ×2 (12:13→17:38)
--- NOTE | 2025-05-17 12:18 | W.PN.HOSP.TC ---
Today's Communication/Plan
-
.
Assessment / Plan
Assessment / Plan
1. BKA infection 2/2 Wound Dehiscence
- Appreciate Vascular and ID reccs
- Plan for washout on 05/18 (NPO after MN)
- CT LLE (05/17):
1. LARGE 10.8 cm OPEN WOUND overlying the anterior and distal aspect of the tibial diaphysis at the site of the [id number] AMPUTATION.
2. 4.2 cm ABSCESS medial to the tibial diaphysis deep to the wound.
3. Mild soft tissue emphysema around the tibial diaphysis.
4. No CT evidence for acute osteomyelitis.
- Patient restarted on IV abx (was on same last admission) - Daptomycin/Avycaz
- Continue Tylenol for Pain
- Patient not on opioid pain meds while in half-way
- Wound Cx pending
2. C Diff Colitis
- Continue Vancomycin PO while on IV abx
- Once daily 125mg dosing per ID
3. CPPD of R Knee
- Recently completed course of steroids
4. History of CAD
- Continue ASA, statin, ranolazine
5. Essential HTN
- Continue Norvac, Coreg, Imdur
6. SHAYLA
-duloxetine continued
-Remeron continued for anxiety
7. iron def anemia
-ferrous sulfate continued
8. History of type 1 diabetes with hyperglycemia and neuropathy
-gabapentin continued
-Lantus continued
-sliding scale
-CHO diet
9. hxt of CKD IIIa
#urinary retention
-bladder scan and q6h stright cath
10. nikki albicans UTI
- Contineu fluconazole through 05/22
Diet: Low CHO (NPO after MN)
CODE: Full
PPx: SC Heparin (Hold for Procedure)
Anticipated Discharge: > 48 hours
Subjective/Interval History
-
Date of Service: May 17, 2025
Sang is a 29M with recent admission of 52 days for left foot osteomyelitis with L BKA, who's admission was complicated by C Diff colitis, CPPD of the contralateral knee with removal of R femur raza who was discharged 5 days ago on PO vancomycin
and a short course of steroids for CPPD, as well as fluconazole for candidal UTI. Patient states that at half-way he was waiting for a shower chair, and was having to drag himself on the floor to shower, resulting in wound dehiscence. Since admission
last night, patient has been seen by vascular surgery who is planning knee washout. Patient was also started on daptomycin and Avycaz. Patient denies any acute complaints over night.
Objective Data
-
Labs:
Laboratory Results
05/17/25
06:57
WBC 12.8 H
Hgb 8.2 L
Hct 26.4 L
Plt Count 560 H
Sodium 134 L
Potassium 4.0
Chloride 96 L
Carbon Dioxide 31 H
BUN 21 H
Creatinine 1.1
Glucose 291 H
Calcium 7.9 L
Vital Signs:
Vital Signs
Temp Pulse Resp BP Pulse Ox
97.1 F 77 24 130/75 97
05/17/25 04:16 05/17/25 07:49 05/17/25 06:00 05/17/25 07:49 05/17/25 06:00
Review of Systems
-
History Source: Patient
All other systems: Reviewed and negative
Physical Exam
-
General: No Apparent Distress and Comfortable
HEENT: Normocephalic, Atraumatic and Moist Mucous Membranes
Respiratory: Clear to Auscultation and Non Labored Respirations
Cardiac: Regular Rhythm and S1/S2
GI: Soft
Musculoskeletal: Other (Bilateral BKA; left knee in bandaging, clean dry and intact. )
Skin: Warm
Neuro: Awake, Alert and Oriented
Psych: Calm
Data Reviewed
-
CT Scan: Image personally visualized and interpreted and Report Reviewed by me
Labs: Labs Reviewed by me and Discussed with Patient
--- NOTE | 2025-05-17 12:32 | WOUNDNOTE ---
[facility] BKA SITE
--- NOTE | 2025-05-17 12:35 | WOUNDNOTE ---
AMANDA RN note: Patient admitted with post surgical complications.
PMH: IDDM, ASCVD, L 1st and 2nd toe amps d/t osteomyelitis, R BKA, obesity, L BKA and removal of femoral nail from R knee-septic arthritis most recently last admission.
Wound Location and type/assessment: Patient admitted with s/p non healing surgical wound L BKA site, vascular and I&D on consult. Wound culture pending. CT scan showed 4.2cm abscess deep in wound, negative osteomyelitis. R stump with slow to heal
partial thickness abraded area, scabbed over previous admission. R thigh and knee with intact trino, no drainage. Patient able to turn to side, sacrum blanchable red, mild MASD in skin folds.
Appetite: good.
Pressure redistribution devices in place: Patient is on a stretcher. Called Bed tech Ramon for a [facility] air bed, nurse notified and will transfer to bed when able.
Plan: L BKA dressing changed with dry dressing. R BKA site applied bordered gauze. Left knee and thigh staple sites open to air. Can cover with bordered gauze if patient picking at trino. Will follow along peripherally and assist as needed. Will
confirm orders with hospitalist, update orders and care plan.
--- NOTE | 2025-05-17 12:36 | WOUNDNOTE ---
AMANDA RN note: Patient admitted with post surgical complications.
PMH: IDDM, ASCVD, L 1st and 2nd toe amps d/t osteomyelitis, R BKA, obesity, L BKA and removal of femoral nail from R knee-septic arthritis most recently last admission.
Wound Location and type/assessment: Patient admitted with s/p non healing surgical wound L BKA site, vascular and I&D on consult. Wound culture pending. CT scan showed 4.2cm abscess deep in wound, negative osteomyelitis. R stump with slow to heal
partial thickness abraded area, scabbed over previous admission. R thigh and knee with intact trino, no drainage. Patient able to turn to side, sacrum blanchable red, mild MASD in skin folds.
Appetite: good.
Pressure redistribution devices in place: Patient is on a stretcher. Called Bed tech Ramon for a [facility] air bed, nurse notified and will transfer to bed when able.
Plan: L BKA dressing changed with dry dressing. R BKA site applied bordered gauze. R knee and thigh staple sites open to air. Can cover with bordered gauze if patient picking at trino. Will follow along peripherally and assist as needed. Will
confirm orders with hospitalist, update orders and care plan.
[2025-05-17] MEDS: DILAUDID 0.25 MG IV (12:38)
--- NOTE | 2025-05-17 16:11 | EDCM ---
Pt is from [facility]. Is bilateral amputee, wheelchair bound. Recent admit 03/23 - 05/13. Had L BKA 04/21, prior R BKA.
Discharge plan: Return to [facility] when medically stable.
[2025-05-17] MEDS: TYLENOL 650 MG PO (17:32)
[2025-05-17] MEDS: NOVOLOG FLEXPEN-MODERATE RESISTANCE SC (17:35)
[2025-05-17 17:37] LABS: Glucose - Point of Care 77 mg/dl (70-99)
--- NOTE | 2025-05-17 17:45 | PTCARENOTE ---
patient straight cath for 500. clear/yellow. patient states he doesn't need the nurses to do this as he can do it himself. RN explained the importance of making sure the bladder is empty and avoiding retention and renal injury. MD made aware.
[2025-05-17] MEDS: CUBICIN 18 MG IV (18:25)
[2025-05-17] MEDS: COLACE PO (19:50)
[2025-05-17] MEDS: LIPITOR 80 MG PO (21:49)
[2025-05-17 21:50] LABS: Glucose - Point of Care 113 mg/dl (70-99)
[2025-05-17] MEDS: REMERON 30 MG PO (22:15)
[2025-05-18] VITALS (14 sets, daily range): BP systolic 105–154; BP diastolic 64–83
[2025-05-18] MEDS: TYLENOL 650 MG PO ×2 (05:05→16:59)
[2025-05-18 05:17] LABS: Hematocrit 28.8 % (39.0-52.0); Hemoglobin 8.6 g/dL (13.0-18.0); Mean Corp Hgb Conc. 29.9 g/dL (33.0-37.0); Mean Corpuscular Volume 92.6 fL (80.0-94.0); Platelet Count 552 10^3/uL (130-400); Red Cell Dist. Width 17.2 % (11.5-14.5)
[2025-05-18 05:37] LABS: Blood Urea Nitrogen 24 mg/dl (9-20); Calcium 7.9 mg/dl (8.4-10.2); Carbon Dioxide 32 mmol/L (22-30); Chloride 101 mmol/L (98-107); Estimated Creatinine Clearance 97 ml/min; Glucose 198 mg/dl (70-99); Potassium 4.2 mmol/L (3.5-5.1); Sodium 139 mmol/L (135-145); eGFR > 60.00
[2025-05-18] MEDS: FEOSOL 325 MG PO ×2 (08:51→20:05)
[2025-05-18] MEDS: NEURONTIN 300 MG PO ×3 (08:51→21:19)
[2025-05-18] MEDS: NORVASC 5 MG PO (08:51)
[2025-05-18] MEDS: ASPIR LOW (ENTERIC COATED) 81 MG PO (08:51)
[2025-05-18] MEDS: COLACE PO ×2 (08:53→20:04)
[2025-05-18] MEDS: NOVOLOG FLEXPEN-MODERATE RESISTANCE 1 UNITS SC (08:54)
[2025-05-18] MEDS: NOVOLOG FLEXPEN 6 UNITS SC ×2 (08:54→17:41)
[2025-05-18] MEDS: COREG 25 MG PO ×2 (09:05→20:04)
[2025-05-18] MEDS: RANEXA EXTENDED RELEASE 1000 MG PO ×2 (09:39→21:20)
[2025-05-18] MEDS: CYMBALTA DELAYED RELEASE 30 MG PO (09:39)
[2025-05-18] MEDS: DIFLUCAN 200 MG PO (09:40)
[2025-05-18] MEDS: FLORASTOR 250 MG PO ×2 (09:40→20:05)
[2025-05-18] MEDS: DEMADEX 10 MG PO (09:40)
[2025-05-18] MEDS: IMDUR (EXTENDED RELEASE) 60 MG PO (09:40)
[2025-05-18] MEDS: LANTUS 0.18 UNITS SC ×2 (09:42→21:27)
--- NOTE | 2025-05-18 10:46 | W.PN.ID1 ---
Date of Service
Date of Service: May 18, 2025
Today's Communication
Await OR cx
Assessment / Plan
# Left BKA stump dehiscence due to fall. (Recent hx L BKA 04/21/25)
# Left BKA 'abscess' on CT. No osteo.
# Multiple abx allergies.
- For I+D per Vascular today, send culture.
- Continue Daptomycin and ceftaz/avibactam pending cx (d3)
- check CK
# Leukocytosis
- trending up
- trend wbc
# Recent Symptomatic UTI
- Straight cath Ucx: C. albicans
- Continue fluconazole 200mg po qd x 10 d through 05/22/25.
# Recent C. difficile, first episode
- Completed 14 days of po Vanco.
- Cofntinue prophylactic dose Vanco 125 mg po daily while on systemic abx's.
Conditions present on admission:
Diabetes mellitus
CAD status post PCI
CHF
hx CKD3
Hypertension
Guillain-Potts� syndrome/CIDP, plasma exchange q 2 months
C. diff (05/02/25)
PAD status post right BKA ([place])
L foot osteo s/p LLE BKA (04/21/25) after failed multiple revisions/TMA
R femoral raza removal 05/06/25; cultures negative (before abx).
Pseudogout (R knee)
Chief Complaint
-: Leukocytosis and Other (Wound dehiscence)
Subjective / Review of Systems
c/o not being straight cath for urine as scheduled
Vital Signs / Physical Exam
Vital Signs
Vital Signs
Temp Pulse Resp BP Pulse Ox
99.4 F 95 20 146/83 98
05/18/25 09:25 05/18/25 09:25 05/18/25 09:25 05/18/25 09:25 05/18/25 09:25
Physical Exam
Constitutional: No Acute Distress
Wound: Other (Reviewed wound photos of L BKA stump with large open wound, dried blood)
Neurological: AO x 3
Objective Data
Lab Data
Lab Results
05/18/25 05:00
05/18/25 05:00
Estimated Creat Clear 97 ml/min 05/18/25 05:00
Total Bilirubin 0.7 mg/dl (0.2-1.3) 05/16/25 17:21
AST 19 U/L (17-59) 05/16/25 17:21
ALT 21 U/L (0-50) 05/16/25 17:21
Alkaline Phosphatase 120 U/L (38-126) 05/16/25 17:21
Most recent labs reviewed.
Micro Results:
05/16/25 17:21 Wound Culture - Preliminary
Surgical Wound Gram Stain - Preliminary
05/16/25 CT LLE:
1. LARGE 10.8 cm OPEN WOUND overlying the anterior and distal aspect of the tibial diaphysis at the site of the [id number] AMPUTATION.
2. 4.2 cm ABSCESS medial to the tibial diaphysis deep to the wound.
3. Mild soft tissue emphysema around the tibial diaphysis.
4. No CT evidence for acute osteomyelitis.
5. Severe peripheral arterial calcific atherosclerotic disease.
Care Review
Plan reviewed with: Physician (Dr. Novoa)
[2025-05-18] MEDS: FIRVANQ 125 MG PO (11:11)
[2025-05-18] MEDS: BACTROBAN 2% OINTMENT 1 APPLIC NASAL (11:12)
[2025-05-18] MEDS: PERIDEX 0.12% ORAL RINSE 15 ML PO (11:12)
--- NOTE | 2025-05-18 11:15 | W.PN.HOSP.TC ---
Today's Communication/Plan
-
OR today. Cultures Pending.
Assessment / Plan
Assessment / Plan
1. BKA infection 2/2 Wound Dehiscence
- Appreciate Vascular and ID reccs
- For washout today
- CT LLE (05/17):
1. LARGE 10.8 cm OPEN WOUND overlying the anterior and distal aspect of the tibial diaphysis at the site of the [id number] AMPUTATION.
2. 4.2 cm ABSCESS medial to the tibial diaphysis deep to the wound.
3. Mild soft tissue emphysema around the tibial diaphysis.
4. No CT evidence for acute osteomyelitis.
- Patient restarted on IV abx (was on same last admission) - Daptomycin/Avycaz
- Continue Tylenol for Pain
- Patient not on opioid pain meds while in [facility]; consider pain control s/p surgery
- Wound Cx pending; OR cultures today
- 100.4 T overnight, white count up a little; continue to monitor Ts and WBCs
2. C Diff Colitis
- Continue Vancomycin PO while on IV abx
- Once daily 125mg dosing per ID
3. CPPD of R Knee
- Recently completed course of steroids
4. History of CAD
- Continue ASA, statin, ranolazine
5. Essential HTN
- Continue Norvac, Coreg, Imdur
6. SHAYLA
-duloxetine continued
-Remeron continued for anxiety
7. iron def anemia
-ferrous sulfate continued
8. History of type 1 diabetes with hyperglycemia and neuropathy
-gabapentin continued
-Lantus continued
-sliding scale
-CHO diet
9. hxt of CKD IIIa
#urinary retention
-bladder scan and q6h straight cath
10. nikki albicans UTI
- Continue fluconazole through 05/22
Diet: Low CHO (NPO after MN)
CODE: Full
PPx: SC Heparin (Hold for Procedure)
Anticipated Discharge: > 48 hours
Subjective/Interval History
-
Date of Service: May 18, 2025
Patient seen and examined this morning, resting in bed. Patient is awaiting R knee washout with vascular.
Patient requesting to be straight cath by nursing.
Endorses pain of the left BKA.
Objective Data
-
Labs:
Laboratory Results
05/18/25
05:00
WBC 15.2 H
Hgb 8.6 L
Hct 28.8 L
Plt Count 552 H
Sodium 139
Potassium 4.2
Chloride 101
Carbon Dioxide 32 H
BUN 24 H
Creatinine 1.4 H
Glucose 198 H
Calcium 7.9 L
Vital Signs:
Vital Signs
Temp Pulse Resp BP Pulse Ox
99.4 F 95 20 146/83 98
05/18/25 09:25 05/18/25 09:25 05/18/25 09:25 05/18/25 09:25 05/18/25 09:25
I&O
05/17/25 05/18/25 05/19/25
06:59 06:59 06:59
Output Total 975 / 975 1000 / 1000
Balance -975 / -975 -1000 / -1000
Review of Systems
-
History Source: Patient
All other systems: Reviewed and negative
Physical Exam
-
General: No Apparent Distress and Comfortable
HEENT: Normocephalic and Atraumatic
Respiratory: Clear to Auscultation and Non Labored Respirations
Cardiac: Regular Rhythm and S1/S2
GI: Soft, Nontender and Nondistended
Musculoskeletal: Other (R BKA stable, L BKA under wraps with some serosanguinous fluid on wrapping)
Skin: Warm
Neuro: Awake, Alert and Oriented
Psych: Calm
Data Reviewed
-
Labs: Labs Reviewed by me and Discussed with Patient
[2025-05-18] MEDS: NOVOLOG FLEXPEN SC (11:40)
[2025-05-18] MEDS: NOVOLOG FLEXPEN-MODERATE RESISTANCE SC ×2 (11:41→17:10)
[2025-05-18 13:23] LABS: Glucose - Point of Care 99 mg/dl (70-99)
--- NOTE | 2025-05-18 14:15 | PTCARENOTE ---
report given to organisational psychologist
--- NOTE | 2025-05-18 14:38 | W.PN.UPDATE ---
Update Note
Progress Note Update
Known to me. Seen and evaluated. Evaluated the wound. Wound actually looks fairly clean. Dehisced as noted secondary to his fall and injury. Discussed with him washing it out with possible VAC placement. Discussed that if any deeper nonhealing
or infection, may require full on revision, and VAC placement. Discussed also the potential of needing an [id number] amputation if not salvageable. However discussed that would not perform that at this time, would have to have a discussion
with him regarding that. He does understand all of this. Wishes to proceed with washout and possible revision of left BKA. Of note I reviewed his CAT scan images. I am not sure that there is a definitive abscess as noted in the CAT scan report.
There is some fullness in the collection, but this likely is postoperative hematoma. Or may be hematoma secondary to his fall recently. But regardless we will explore that area in the OR.
--- NOTE | 2025-05-18 15:27 | OR.RPT ---
Operative Report
Operative Report
PROCEDURE DATE: 05/18/2025
Preoperative diagnosis:
1. Status post left below the knee amputation.
2. Trauma/fall, dehisced left below the knee amputation stump.
Postoperative diagnosis: Same
Procedure:
1. Washout dehisced left below the knee amputation stump with pulse lavage with 1 L saline irrigation.
2. Evacuation hematoma.
3. Closure of deeper fascial/subcutaneous layer with interrupted Vicryl suture, placement of wound VAC more superficially.
Surgeon: Wellington
Associate Professor Of Management: DORON Krause, required for all aspects of procedure including assistance with traction/countertraction, VAC application.
Complications: None
Anesthesia: General
Indications for procedure:
Patient fell in his intermediate cell onto the stump. Noted it was a cement floor. Dehiscence of the wound noted. CT scan report indicated possible abscess, but to my interpretation did not appear to be an abscess but rather likely hematoma.
Risk/benefits/alternatives of washout/possible revision fully discussed. He understood the potential need for eventual conversion to [id number]-[id number] amputation. He wished to proceed.
Description of procedure:
Patient was identified brought to the operating room placed on the table in supine position. After the adequate administration of anesthesia [] was prepped and draped in the standard surgical fashion. A standard preoperative timeout was undertaken
and everybody was in agreement the plan. The dehisced site was carefully inspected. There was some muscle bulging in the central portion and I could put my finger underneath and noted that it undermined to the medial portion where there was an
opening as well. These connected in the deep subcutaneous space. Therefore I used electrocautery to divide the overlying scar tissue. Now this opened the space. The tissues all looks clean but there was a clear-cut hematoma in the space. I
evacuated this hematoma. As I had suspected based on my interpretation of the CT scan, there is no abscess but rather just a hematoma. Once I evacuated the hematoma the space and the tissues all look clean. There was a granulation layer/soft
tissue that was covering the bone. On the posterior aspect when I slid my finger under the bone I could feel some bone element and I could not tell if that was covered or not. Regardless I pulse lavaged the entire cavity here with 1 L saline
solution. Given that there was no obvious infection, and if the bone needed to be revised further up, then he would need likely an [id number]-[id number]-[id number] amputation, I felt that a trial of partial closure with wound VAC was warranted. Therefore at this
point, the fascial/deep subcutaneous tissues were reapproximated with interrupted 2-0 Vicryl suture. A wound VAC was then placed on the wound. Measuring approximately 18 cm x 6 cm x 3 cm depth. The patient tolerated the procedure well.
[2025-05-18 15:55] LABS: Glucose - Point of Care 111 mg/dl (70-99)
[2025-05-18] MEDS: DILAUDID 0.5 MG IV (16:12)
--- NOTE | 2025-05-18 17:32 | PTCARENOTE ---
Received pt from PACU, VSS with 2Lo2, admission finished, pt resting in bed with call morales at bedside, oriented to call light and room, left wrist shackled to bed with two guards at bedside. Pt with c/o pain at this time, medicated for pain with PRN
available. Wound vac CDI set at 125, WOC RN consulted. No new orders at this time.
[2025-05-18] MEDS: NORCO 5/325 1 TABLET PO (17:45)
[2025-05-18] MEDS: CUBICIN 18 MG IV (17:55)
[2025-05-18] MEDS: LIPITOR 80 MG PO (20:09)
[2025-05-18] MEDS: REMERON 30 MG PO (21:20)
[2025-05-18 21:27] LABS: Glucose - Point of Care 307 mg/dl (70-99)
[2025-05-18 23:41] LABS: Hematocrit 27.6 % (39.0-52.0); Hemoglobin 8.4 g/dL (13.0-18.0)
[2025-05-19 03:27] VITALS: BP 134/78
[2025-05-19 05:45] VITALS: BMI 30.2
[2025-05-19 07:53] LABS: Glucose - Point of Care 442 mg/dl (70-99)
[2025-05-19 07:54] VITALS: BP 168/96
[2025-05-19 08:38] LABS: Hematocrit 27.3 % (39.0-52.0); Hemoglobin 8.6 g/dL (13.0-18.0); Mean Corp Hgb Conc. 31.5 g/dL (33.0-37.0); Mean Corpuscular Volume 88.6 fL (80.0-94.0); Platelet Count 478 10^3/uL (130-400); Red Cell Dist. Width 16.7 % (11.5-14.5)
[2025-05-19] MEDS: CYMBALTA DELAYED RELEASE 30 MG PO (08:45)
[2025-05-19] MEDS: RANEXA EXTENDED RELEASE 1000 MG PO ×2 (08:45→21:42)
[2025-05-19] MEDS: NEURONTIN 300 MG PO ×3 (08:46→21:42)
[2025-05-19] MEDS: ASPIR LOW (ENTERIC COATED) 81 MG PO (08:46)
[2025-05-19] MEDS: DEMADEX 10 MG PO (08:46)
[2025-05-19] MEDS: NORVASC 5 MG PO (08:46)
[2025-05-19] MEDS: LANTUS 0.18 UNITS SC (08:46)
[2025-05-19] MEDS: IMDUR (EXTENDED RELEASE) 60 MG PO (08:46)
[2025-05-19] MEDS: COREG 25 MG PO ×2 (08:46→21:51)
[2025-05-19] MEDS: COLACE 100 MG PO (08:46)
[2025-05-19] MEDS: FEOSOL 325 MG PO ×2 (08:46→21:41)
[2025-05-19] MEDS: FIRVANQ 125 MG PO (08:47)
[2025-05-19] MEDS: DIFLUCAN 200 MG PO (08:47)
[2025-05-19] MEDS: NORCO 5/325 1 TABLET PO ×2 (08:47→14:17)
[2025-05-19] MEDS: FLORASTOR 250 MG PO ×2 (08:47→21:40)
[2025-05-19] MEDS: NOVOLOG FLEXPEN 6 UNITS SC ×3 (08:52→17:16)
[2025-05-19 09:08] LABS: Glucose 435 mg/dl (70-99)
[2025-05-19] MEDS: NOVOLOG FLEXPEN-MODERATE RESISTANCE 11 UNITS SC ×2 (09:22→12:39)
--- NOTE | 2025-05-19 09:34 | PTCARENOTE ---
pt accucheck RR high this morning. STAT glucose checked. recheck of 435. Resident made aware. standing dose, sliding scale and long acting insulin given. see Worklist for proper documentation
[2025-05-19 09:46] LABS: Blood Urea Nitrogen 32 mg/dl (9-20); Calcium 8.0 mg/dl (8.4-10.2); Carbon Dioxide 29 mmol/L (22-30); Chloride 99 mmol/L (98-107); Estimated Creatinine Clearance 84 ml/min; Glucose 421 mg/dl (70-99); Potassium 4.9 mmol/L (3.5-5.1); Sodium 133 mmol/L (135-145); eGFR 59.44
--- NOTE | 2025-05-19 10:07 | W.PN.HOSP.TC ---
Today's Communication/Plan
-
Discontinue IV abx. Monitor Ts.
Increase Basal insulin.
Pain control.
CM to inquire if patient can return to care home with Wound Vac.
Assessment / Plan
Assessment / Plan
1. BKA infection 2/2 Wound Dehiscence
- Appreciate Vascular and ID reccs
- CT LLE (05/17):
1. LARGE 10.8 cm OPEN WOUND overlying the anterior and distal aspect of the tibial diaphysis at the site of the [id number] AMPUTATION.
2. 4.2 cm ABSCESS medial to the tibial diaphysis deep to the wound.
3. Mild soft tissue emphysema around the tibial diaphysis.
4. No CT evidence for acute osteomyelitis.
- POD #1 s/p L BKA washout, hematoma evac, and wound vac placement
- Daptomycin/Avycaz discontinued
- Pain control escalated to [place] in the setting of procedure
- Patient not on opioid pain meds while in care home
- Wound Cx pending
- Continue to monitor Ts and WBCs
2. C Diff Colitis
- Continue Vancomycin PO for now (IV Abx d/c)
- Once daily 125mg dosing per ID
3. CPPD of R Knee
- Recently completed course of steroids
4. History of CAD
- Continue ASA, statin, ranolazine
5. Essential HTN
- Continue Norvac, Coreg, Imdur
6. SHAYLA
-duloxetine continued
-Remeron continued for anxiety
7. WILBER
-ferrous sulfate continued
8. History of type 1 diabetes with hyperglycemia and neuropathy
- gabapentin continued
- Lantus increased to 20U BID; continue AC and SS
- CHO diet
9. hxt of CKD IIIa
#urinary retention
-bladder scan and q6h straight cath
10. nikki albicans UTI
- Continue fluconazole through 05/22
Diet: Low CHO
CODE: Full
PPx: SC Heparin
Dispo Planning: IV abx discontinued. Reach out to if patient can return to care home with wound vac.
Anticipated Discharge: 24 - 48 hours
Subjective/Interval History
-
Date of Service: May 19, 2025
Patient seen and examined while resting in bed.
Patient is s/p L BKA washout, hematoma evac, and wound vac placement.
Endorses pain of the LLE.
Otherwise, denies any acute complaints.
Objective Data
-
Labs:
Laboratory Results
05/18/25 05/18/25 05/19/25
14:55 23:28 07:27
WBC 12.1 H
Hgb Cancelled 8.4 L 8.6 L
Hct Cancelled 27.6 L 27.3 L
Plt Count 478 H
Sodium 133 L
Potassium 4.9
Chloride 99
Carbon Dioxide 29
BUN 32 H
Creatinine 1.6 H
Glucose 421 H
Calcium 8.0 L
05/19/25
08:39
WBC
Hgb
Hct
Plt Count
Sodium
Potassium
Chloride
Carbon Dioxide
BUN
Creatinine
Glucose 435 H
Calcium
Vital Signs:
Vital Signs
Temp Pulse Resp BP Pulse Ox
97.4 F 87 18 168/96 99
05/19/25 07:54 05/19/25 07:54 05/19/25 07:54 05/19/25 08:46 05/19/25 07:54
I&O
05/18/25 05/19/25 05/20/25
06:59 06:59 06:59
Intake Total 948 / 948
Output Total 975 / 975 1999 / 1999
Balance -975 / -975 -1052 / -1052
Review of Systems
-
History Source: Patient
All other systems: Reviewed and negative
Physical Exam
-
General: Well Developed, Well Nourished and No Apparent Distress
HEENT: Normocephalic and Atraumatic
Respiratory: Clear to Auscultation and Non Labored Respirations
Cardiac: Regular Rhythm and S1/S2
GI: Soft
Musculoskeletal: Other (LBKA in SHILPI wrap, attached to wound vac draining small amounts of serosanguinous fluid)
Skin: Warm
Neuro: Awake, Alert and Oriented
Psych: Calm
Data Reviewed
-
Labs: Labs Reviewed by me and Discussed with Patient
--- NOTE | 2025-05-19 10:12 | W.PN.VS ---
Addendum entered and electronically signed by Jose Paris MD 05/19/25 15:21:
Seen and examined with INVOICE CLASSIFICATION CLERK earlier this a.m. Agree with findings and plan as noted below.
Original Note:
Today's Communication / Plan
-
Patient seen and examined at bedside with Dr. Jose Paris M.D., below plan reviewed with attending
Assessment/Plan
-
Assessment: 29-year-old male POD #1 Washout dehisced left below the knee amputation stump with pulse lavage with 1 L saline irrigation. Evacuation hematoma. Closure of deeper fascial/subcutaneous layer with interrupted Vicryl suture, placement of
wound VAC more superficially following traumatic fall onto stump.
Plan:
Will return tomorrow to change wound VAC
Given history of traumatic fall will obtain stump protector
Case management consultation
Wound care consultation
Subjective Data
-
Date of Service: May 19, 2025
Patient seen and examined at bedside, denies nausea, vomiting, fever, and chills.
Objective Data
-
Vital Signs
Temp Pulse Resp BP Pulse Ox
97.4 F 87 18 168/96 99
05/19/25 07:54 05/19/25 07:54 05/19/25 07:54 05/19/25 08:46 05/19/25 07:54
Intake and Output
05/18/25 05/19/25 05/20/25
06:59 06:59 06:59
Intake Total 948 / 948
Output Total 975 / 975 1999
Balance -975 / -975 -1052 / -1052
Intake:
Oral fluids 730 / 730
IV fluids (Total) 200 / 200
Normosol 200 / 200
IV piggybacks
Output:
Urine, Voided 0 / 0
Straight cath output 975 / 975 1999
Lab Results
05/19/25 07:27
05/19/25 08:39
Calcium 8.0 mg/dl (8.4-10.2) L 05/19/25 07:27
Total Bilirubin 0.7 mg/dl (0.2-1.3) 05/16/25 17:21
AST 19 U/L (17-59) 05/16/25 17:21
ALT 21 U/L (0-50) 05/16/25 17:21
Alkaline Phosphatase 120 U/L (38-126) 05/16/25 17:21
Total Protein 7.0 g/dl (6.3-8.2) 05/16/25 17:21
Albumin 3.6 g/dl (3.5-5.0) 05/16/25 17:21
Physical Exam
-
No apparent distress, resting in bed comfortably
No tachycardia
No dyspnea on room air
Left below the knee washout incision clean, dry, and intact with wound VAC holding suction
--- NOTE | 2025-05-19 10:31 | W.PN.ID1 ---
Date of Service
Date of Service: May 19, 2025
Today's Communication
DC Daptomycin and ceftaz/avibactam
Continue fluconazole 200mg po qd x 10 d through 05/22/25.
Continue prophylactic dose Vanco 125 mg po daily through 05/24/25
ID will sign off.
Assessment / Plan
# Left BKA stump dehiscence due to fall. (Recent hx L BKA 04/21/25)
# Left BKA hematoma
# Multiple abx allergies.
- 05/18 s/p I+D, evacuation of hematoma. Per Vascular - no hematoma.
- DC Daptomycin and ceftaz/avibactam (d4)
# Leukocytosis
- trending down
# Recent Symptomatic UTI
- Straight cath Ucx: C. albicans
- Continue fluconazole 200mg po qd x 10 d through 05/22/25.
# Recent C. difficile, first episode
- Completed 14 days of po Vanco.
- Continue prophylactic dose Vanco 125 mg po daily through 05/24/25 (5 days past dc systemic abx's)
ID will sign off.
Conditions present on admission:
Diabetes mellitus
CAD status post PCI
CHF
hx CKD3
Hypertension
Guillain-Potts� syndrome/CIDP, plasma exchange q 2 months
C. diff (05/02/25)
PAD status post right BKA ([place])
L foot osteo s/p LLE BKA (04/21/25) after failed multiple revisions/TMA
R femoral raza removal 05/06/25; cultures negative (before abx).
Pseudogout (R knee)
Chief Complaint
-: Leukocytosis and Other (Wound dehiscence)
Subjective / Review of Systems
No new issues today.
Vital Signs / Physical Exam
Vital Signs
Vital Signs
Temp Pulse Resp BP Pulse Ox
97.4 F 87 18 168/96 99
05/19/25 07:54 05/19/25 07:54 05/19/25 07:54 05/19/25 08:46 05/19/25 07:54
Physical Exam
Constitutional: No Acute Distress and Comfortable
Cardiovascular: Regular Rate and S1/S2
Pulmonary: Clear
Gastrointestinal: Soft, Non Tender, Non Distended and Normal Bowel Sounds
Wound: Other (Left BKA with wound vac)
Neurological: AO x 3
Objective Data
Lab Data
Lab Results
05/19/25 07:27
05/19/25 08:39
Estimated Creat Clear 84 ml/min 05/19/25 07:27
Total Bilirubin 0.7 mg/dl (0.2-1.3) 05/16/25 17:21
AST 19 U/L (17-59) 05/16/25 17:21
ALT 21 U/L (0-50) 05/16/25 17:21
Alkaline Phosphatase 120 U/L (38-126) 05/16/25 17:21
Most recent labs reviewed.
Micro Results:
05/16/25 17:21 Wound Culture - Final
Surgical Wound Gram Stain - Final
05/16/25 CT LLE:
1. LARGE 10.8 cm OPEN WOUND overlying the anterior and distal aspect of the tibial diaphysis at the site of the [id number] AMPUTATION.
2. 4.2 cm ABSCESS medial to the tibial diaphysis deep to the wound.
3. Mild soft tissue emphysema around the tibial diaphysis.
4. No CT evidence for acute osteomyelitis.
5. Severe peripheral arterial calcific atherosclerotic disease.
Care Review
Plan reviewed with: Physician (Dr. Novoa)
[2025-05-19 11:25] LABS: Glucose - Point of Care 452 mg/dl (70-99)
[2025-05-19 12:17] LABS: Glucose 448 mg/dl (70-99)
[2025-05-19] MEDS: LANTUS 0.02 UNITS SC (12:45)
[2025-05-19 15:00] VITALS: BP 124/73
--- NOTE | 2025-05-19 15:10 | CM ---
Patient currently for evaluation for a wound vac probable discharge to [facility] tomorrow. CM sent email to wound care department at [facility] and the [facility] supervisor tree trimming as well as the contact of the wound care company Calli Guerrier from [employer] to
coordinate wound vac. CM called and updated infirmary /email update sent as well regarding timing of discharge with wound vac. CM will continue to follow for discharge planning needs.
Plan; return to [facility] with wound vac; following contacts for coordination;
email is [email or web address] Calli Guerrier
[phone] [email or web address]
[phone] or office number is [phone];Catrachita Mora RN wound care.
Please call report to [phone]/fax [phone]
[2025-05-19] MEDS: HEPARIN SC (15:24)
[2025-05-19 17:08] LABS: Glucose - Point of Care 365 mg/dl (70-99)
[2025-05-19] MEDS: NOVOLOG FLEXPEN-MODERATE RESISTANCE 9 UNITS SC (17:15)
[2025-05-19 21:28] LABS: Glucose - Point of Care 380 mg/dl (70-99)
[2025-05-19] MEDS: LANTUS 0.2 UNITS SC (21:40)
[2025-05-19] MEDS: COLACE PO ×2 (21:42→21:56)
[2025-05-19] MEDS: LIPITOR 80 MG PO (21:42)
[2025-05-19] MEDS: REMERON 30 MG PO (21:50)
[2025-05-19] MEDS: NOVOLOG FLEXPEN 9 UNITS SC (21:56)
[2025-05-19 23:24] VITALS: BP 135/75
[2025-05-20] LABS: Glucose - Point of Care 366 mg/dl (70-99)
[2025-05-20] MEDS: HEPARIN 5000 UNITS SC ×3 (00:38→17:04)
[2025-05-20] MEDS: NOVOLOG FLEXPEN 9 UNITS SC (00:39)
[2025-05-20 03:43] LABS: Glucose - Point of Care 287 mg/dl (70-99)
[2025-05-20 07:00] VITALS: BP 144/78
--- NOTE | 2025-05-20 07:35 | W.PN.HOSP.TC ---
Today's Communication/Plan
-
Wound Vac change.
Dispo planning.
Assessment / Plan
Assessment / Plan
1. BKA infection 2/2 Wound Dehiscence
- Appreciate Vascular and ID reccs
- CT LLE (05/17):
1. LARGE 10.8 cm OPEN WOUND overlying the anterior and distal aspect of the tibial diaphysis at the site of the [id number] AMPUTATION.
2. 4.2 cm ABSCESS medial to the tibial diaphysis deep to the wound.
3. Mild soft tissue emphysema around the tibial diaphysis.
4. No CT evidence for acute osteomyelitis.
- POD #2 s/p L BKA washout, hematoma evac, and wound vac placement
- Wound vac change today; q48-72h changes on discharge, vascular follow up provided
- Daptomycin/Avycaz discontinued
- Pain control escalated to [place] in the setting of procedure
- Patient not on opioid pain meds while in custodial
- PRN pain med for wound vac change
- Wound Cx negative
- Otherwise afebrile and normocytosis
2. C Diff Colitis
- Continue Vancomycin PO for now (IV Abx d/c)
- Once daily 125mg dosing per ID through 05/24
3. CPPD of R Knee
- Recently completed course of steroids
4. History of CAD
- Continue ASA, statin, ranolazine
5. Essential HTN
- Continue Norvac, Coreg, Imdur
6. SHAYLA
-duloxetine continued
-Remeron continued for anxiety
7. WILBER
-ferrous sulfate continued
8. History of type 1 diabetes with hyperglycemia and neuropathy
- gabapentin continued
- Lantus increased to 20U BID; continue AC and SS
- CHO diet
9. hxt of CKD IIIa
#urinary retention
-bladder scan and q6h straight cath
10. nikki albicans UTI
- Continue fluconazole through 05/22
Diet: Low CHO
CODE: Full
PPx: SC Heparin
Dispo Planning:
-IV abx discontinued.
-Wound vac delivery to custodial...
-PT Eval
-Nursing available to accept patient?
Anticipated Discharge: Today
Subjective/Interval History
-
Date of Service: May 20, 2025
Patient seen and examined while resting in bed.
Patient has no acute bodily complaints at this time.
Is concerned about having time to work with physical therapy.
Objective Data
-
Labs:
Laboratory Results
05/20/25
06:00
WBC Pending
Hgb Pending
Hct Pending
Plt Count Pending
Sodium Pending
Potassium Pending
Chloride Pending
Carbon Dioxide Pending
BUN Pending
Creatinine Pending
Glucose Pending
Calcium Pending
Vital Signs:
Vital Signs
Temp Pulse Resp BP Pulse Ox
97.7 F 83 19 135/75 97
05/19/25 23:24 05/19/25 23:24 05/19/25 23:24 05/19/25 23:24 05/19/25 23:24
I&O
05/19/25 05/20/25 05/21/25
06:59 06:59 06:59
Intake Total 948 / 948 2650 / 2650
Output Total 1999 2900 / 2900
Balance -1052 / -1052 -250 / -250
Review of Systems
-
History Source: Patient
All other systems: Reviewed and negative
Physical Exam
-
General: No Apparent Distress, Comfortable and Conversant
HEENT: Normocephalic, Atraumatic and Moist Mucous Membranes
Respiratory: Clear to Auscultation and Non Labored Respirations
Cardiac: Regular Rhythm and S1/S2
GI: Soft
Musculoskeletal: Other (R BKA stable, left BKA in bumper/wound vac with minimal drainage)
Skin: Warm
Neuro: Awake and Alert
Psych: Calm
Data Reviewed
-
Labs: Labs Reviewed by me
[2025-05-20 08:39] LABS: Blood Urea Nitrogen 33 mg/dl (9-20); Calcium 8.1 mg/dl (8.4-10.2); Carbon Dioxide 31 mmol/L (22-30); Chloride 102 mmol/L (98-107); Estimated Creatinine Clearance 96 ml/min; Glucose 293 mg/dl (70-99); Potassium 4.6 mmol/L (3.5-5.1); Sodium 138 mmol/L (135-145); eGFR > 60.00
--- NOTE | 2025-05-20 09:19 | CM ---
Addendum entered by Landy Castro 05/20/25 13:18:
Please call report to [phone]/fax [phone]
Addendum entered by Landy Castro 05/20/25 13:06:
Therapy is requesting transfer board and a wheelchair at the facility. CM left VM for Magy in the [facility] to clarify if scripts needed.
Original Note:
PEDRO spoke with [facility] nurse Magy [phone] email [email or web address]. Per Magy she will be the wound care nurse at the [facility] and will call to confirm delivery with wound care and provider. Patient will be able to return to [facility] with the wound
vac as appropriate per medical treatment plan. CM will continue to follow for discharge planning needs.
Plan; return to [facility] with wound vac when appropriate.
[2025-05-20 09:23] LABS: Hematocrit 25.4 % (39.0-52.0); Hemoglobin 7.9 g/dL (13.0-18.0); Mean Corp Hgb Conc. 31.1 g/dL (33.0-37.0); Mean Corpuscular Volume 88.8 fL (80.0-94.0); Red Cell Dist. Width 17.2 % (11.5-14.5)
[2025-05-20] MEDS: LANTUS 0.2 UNITS SC ×2 (09:33→21:55)
[2025-05-20] MEDS: COREG 25 MG PO ×2 (09:34→21:47)
[2025-05-20] MEDS: FIRVANQ 125 MG PO (09:34)
[2025-05-20] MEDS: RANEXA EXTENDED RELEASE 1000 MG PO ×2 (09:34→21:40)
[2025-05-20] MEDS: DEMADEX 10 MG PO (09:35)
[2025-05-20] MEDS: CYMBALTA DELAYED RELEASE 30 MG PO (09:35)
[2025-05-20] MEDS: NEURONTIN 300 MG PO ×3 (09:35→21:40)
[2025-05-20] MEDS: IMDUR (EXTENDED RELEASE) 60 MG PO (09:35)
[2025-05-20] MEDS: FLORASTOR 250 MG PO ×2 (09:36→21:39)
[2025-05-20] MEDS: ASPIR LOW (ENTERIC COATED) 81 MG PO (09:36)
[2025-05-20] MEDS: FEOSOL 325 MG PO ×2 (09:36→21:40)
[2025-05-20] MEDS: DIFLUCAN 200 MG PO (09:36)
[2025-05-20] MEDS: NORVASC 5 MG PO (09:36)
[2025-05-20] MEDS: COLACE 100 MG PO ×2 (09:36→21:40)
[2025-05-20] MEDS: NOVOLOG FLEXPEN-MODERATE RESISTANCE SC (09:37)
[2025-05-20] MEDS: NOVOLOG FLEXPEN SC (09:37)
[2025-05-20 10:11] LABS: Glucose - Point of Care 352 mg/dl (70-99)
[2025-05-20] MEDS: NOVOLOG FLEXPEN 6 UNITS SC ×3 (10:14→17:02)
[2025-05-20] MEDS: NOVOLOG FLEXPEN-MODERATE RESISTANCE 9 UNITS SC (10:14)
--- NOTE | 2025-05-20 10:49 | WOUNDNOTE ---
WOC RN note: Confirmed with Calli Guerrier she is working on getting a PO and authorization for vac pump and vac supplies to be delivered to [facility].
[2025-05-20 11:00] VITALS: BP 146/79
--- NOTE | 2025-05-20 11:41 | W.PN.VS ---
Today's Communication / Plan
-
Discussed with Dr Castillo
Assessment/Plan
-
Assessment: 29-year-old male POD #2 Washout dehisced left below the knee amputation stump with pulse lavage with 1 L saline irrigation. Evacuation hematoma. Closure of deeper fascial/subcutaneous layer with interrupted Vicryl suture, placement of
wound VAC more superficially following traumatic fall onto stump.
Plan:
VAC placed by me at bedside, patient tolerated well
Continue stump protector when out of bed
Okay for discharge from vascular standpoint
Subjective Data
-
Date of Service: May 20, 2025
Patient seen at bedside this afternoon. Resting comfortably in bed. VAC is intact with no leak. No events overnight
Objective Data
-
Vital Signs
Temp Pulse Resp BP Pulse Ox
97.7 F 85 18 144/78 97
05/20/25 07:00 05/20/25 07:00 05/20/25 07:00 05/20/25 07:00 05/20/25 07:00
Intake and Output
05/19/25 05/20/25 05/21/25
06:59 06:59 06:59
Intake Total 948 / 948 2650 / 2650
Output Total 1999 2900 / 2900
Balance -1052 / -1052 -250 / -250
Intake:
Oral fluids 730 / 730 2650 / 2650
IV fluids (Total) 200 / 200
Normosol 200 / 200
IV piggybacks
Output:
Urine, Voided 0 / 0 1100 / 1100
Straight cath output 1999 1800 / 1800
Other:
How many times incontinent 1
MODERATE amount urine
Number of unmeasured liquid
stools
Rectum 1
Lab Results
05/20/25 07:40
05/20/25 07:40
Calcium 8.1 mg/dl (8.4-10.2) L 05/20/25 07:40
Total Bilirubin 0.7 mg/dl (0.2-1.3) 05/16/25 17:21
AST 19 U/L (17-59) 05/16/25 17:21
ALT 21 U/L (0-50) 05/16/25 17:21
Alkaline Phosphatase 120 U/L (38-126) 05/16/25 17:21
Total Protein 7.0 g/dl (6.3-8.2) 05/16/25 17:21
Albumin 3.6 g/dl (3.5-5.0) 05/16/25 17:21
Physical Exam
-
No apparent distress, resting in bed comfortably
No tachycardia
No dyspnea on room air
Left below the knee washout site clean, dry, and intact, wound bed with healthy appearing granulation tissue throughout, surrounding skin intact.
[2025-05-20 12:32] LABS: Glucose - Point of Care 298 mg/dl (70-99)
[2025-05-20] MEDS: NOVOLOG FLEXPEN-MODERATE RESISTANCE 6 UNITS SC (13:16)
--- NOTE | 2025-05-20 14:37 | CM ---
I spoke to Magy , nurse at [facility], She stated that they have a wheelchair but can not allow a sliding board as it can be used as a weapon to harm himself or others , as well as a liability if one of the inmates acting as a caregiver uses
it incorrectly and he falls . She stated they had already asked their administration and was told that they can't allow it. She also said that since she is the only person that can teach the other staff how to use the wound vac, and it has not yet
arrived, they will not be able to accept the patient over the week-end. Update to CM, PT, and CNO.
[2025-05-20] MEDS: DILAUDID 0.5 MG IV (15:00)
[2025-05-20 15:05] VITALS: BP 122/70
--- NOTE | 2025-05-20 15:30 | PTCARENOTE ---
surgery at bedside for wound vac dressing change
[2025-05-20 16:36] LABS: Glucose - Point of Care 199 mg/dl (70-99)
[2025-05-20] MEDS: NOVOLOG FLEXPEN-MODERATE RESISTANCE 1 UNITS SC (17:02)
[2025-05-20] MEDS: LIPITOR 80 MG PO (21:40)
[2025-05-20] MEDS: REMERON 30 MG PO (21:40)
[2025-05-20 21:56] LABS: Glucose - Point of Care 207 mg/dl (70-99)
[2025-05-20 23:00] VITALS: BP 135/78
[2025-05-21] MEDS: HEPARIN SC (00:30)
[2025-05-21 07:00] VITALS: BP 156/84
[2025-05-21 08:01] LABS: Glucose - Point of Care 263 mg/dl (70-99)
[2025-05-21 08:44] LABS: Hematocrit 27.6 % (39.0-52.0); Hemoglobin 8.4 g/dL (13.0-18.0); Mean Corp Hgb Conc. 30.4 g/dL (33.0-37.0); Mean Corpuscular Volume 91.7 fL (80.0-94.0); Platelet Count 485 10^3/uL (130-400); Red Cell Dist. Width 17.2 % (11.5-14.5)
[2025-05-21] MEDS: NOVOLOG FLEXPEN-MODERATE RESISTANCE 5 UNITS SC ×2 (08:56→12:37)
[2025-05-21] MEDS: NOVOLOG FLEXPEN 6 UNITS SC ×3 (08:56→18:10)
[2025-05-21] MEDS: FEOSOL 325 MG PO ×2 (08:58→21:24)
[2025-05-21] MEDS: ASPIR LOW (ENTERIC COATED) 81 MG PO (08:58)
[2025-05-21] MEDS: DIFLUCAN 200 MG PO (08:58)
[2025-05-21] MEDS: IMDUR (EXTENDED RELEASE) 60 MG PO (08:58)
[2025-05-21] MEDS: CYMBALTA DELAYED RELEASE 30 MG PO (08:58)
[2025-05-21] MEDS: NORVASC 5 MG PO (08:58)
[2025-05-21] MEDS: RANEXA EXTENDED RELEASE 1000 MG PO ×2 (08:58→21:22)
[2025-05-21] MEDS: COREG 25 MG PO ×2 (08:58→21:24)
[2025-05-21] MEDS: COLACE 100 MG PO (08:58)
[2025-05-21] MEDS: DEMADEX 10 MG PO (08:58)
[2025-05-21] MEDS: FLORASTOR 250 MG PO ×2 (08:58→21:22)
[2025-05-21] MEDS: NEURONTIN 300 MG PO ×3 (08:58→21:23)
[2025-05-21] MEDS: FIRVANQ 125 MG PO (08:59)
[2025-05-21] MEDS: HEPARIN 5000 UNITS SC ×2 (08:59→18:08)
[2025-05-21 09:25] LABS: Blood Urea Nitrogen 25 mg/dl (9-20); Calcium 8.8 mg/dl (8.4-10.2); Carbon Dioxide 32 mmol/L (22-30); Chloride 102 mmol/L (98-107); Estimated Creatinine Clearance 112 ml/min; Glucose 226 mg/dl (70-99); Potassium 4.6 mmol/L (3.5-5.1); Sodium 138 mmol/L (135-145); eGFR > 60.00
--- NOTE | 2025-05-21 12:26 | W.PN.HOSP.TC ---
Today's Communication/Plan
-
Assessment / Plan
Assessment / Plan
General: No Apparent Distress, Comfortable and Conversant, in police custody
HEENT: NormoCephalic, Moist mucous membranes, Atraumatic
Respiratory: Clear and Non Labored Respirations
Cardiac: S1/S2 and Regular Rhythm; No Rub or Gallop
GI: Soft, normal bowel sounds
Musculoskeletal: No Edema, bilateral BKA, left BKA stump dressing with wound VAC and stump protector in place
Skin: Warm and dry
: No Castillo
Neuro: Awake, Alert, Nonfocal/grossly intact
Psych: Calm and cooperative
1. BKA infection 2/2 Wound Dehiscence
- Appreciate Vascular and ID recs
- CT LLE (05/17):
1. LARGE 10.8 cm OPEN WOUND overlying the anterior and distal aspect of the tibial diaphysis at the site of the [id number] AMPUTATION.
2. 4.2 cm ABSCESS medial to the tibial diaphysis deep to the wound. Actually turned out to be hematoma not abscess after surgical evaluation
3. Mild soft tissue emphysema around the tibial diaphysis.
4. No CT evidence for acute osteomyelitis.
- POD #2 s/p L BKA washout, hematoma evac, and wound vac placement
- Wound vac change 05/20; q48-72h changes on discharge, vascular follow up provided
- Daptomycin/Avycaz discontinued
- Pain control escalated to [place] in the setting of procedure
- Patient not on opioid pain meds while in skilled nursing
- PRN pain med for wound vac change
- Wound Cx negative
- Otherwise afebrile and normocytosis
- Medically stable for discharge once wound VAC has been delivered to correctional facility
2. C Diff Colitis
- Continue Vancomycin PO for now (IV Abx d/c)
- Once daily 125mg dosing per ID through 05/24 for prophylaxis
3. CPPD of R Knee
- Recently completed course of steroids
4. History of CAD
- Continue ASA, statin, ranolazine
5. Essential HTN
- Continue Norvac, Coreg, Imdur
6. SHAYLA
-duloxetine continued
-Remeron continued for anxiety
7. WILBER
-ferrous sulfate continued
8. History of type 1 diabetes with hyperglycemia and neuropathy
- gabapentin continued
- Lantus increased to 22U BID today 05/21, first dose tonight; continue 6 units of short acting mealtime insulin, continue AC and SS
- CHO diet
9. hxt of CKD IIIa
#urinary retention
-bladder scan and q6h straight cath
10. nikki albicans UTI
- Continue fluconazole through 05/22
Diet: Low CHO
CODE: Full
PPx: [place] Heparin
Dispo Planning:
-IV abx discontinued.
-Wound vac delivery to skilled nursing...
-PT Eval
-Nursing available to accept patient?
Anticipated Discharge: 24 - 48 hours
Subjective/Interval History
-
Date of Service: May 21, 2025
Patient was seen and examined at bedside this morning. No acute distress.
Objective Data
-
Labs:
Laboratory Results
05/21/25
08:10
WBC 9.9
Hgb 8.4 L
Hct 27.6 L
Plt Count 485 H
Sodium 138
Potassium 4.6
Chloride 102
Carbon Dioxide 32 H
BUN 25 H
Creatinine 1.2
Glucose 226 H
Calcium 8.8
Vital Signs:
Vital Signs
Temp Pulse Resp BP Pulse Ox
98.2 F 85 18 156/84 99
05/21/25 07:00 05/21/25 07:00 05/21/25 07:00 05/21/25 07:00 05/21/25 07:00
I&O
05/20/25 05/21/25 05/22/25
06:59 06:59 06:59
Intake Total 2650 / 2650 2320 / 2320
Output Total 2900 / 2900 3800 / 3800
Balance -250 / -250 -1480 / -1480
Review of Systems
-
History Source: Patient
All other systems: Reviewed and negative
Physical Exam
-
General: No Apparent Distress
[2025-05-21 12:27] LABS: Glucose - Point of Care 276 mg/dl (70-99)
[2025-05-21] MEDS: LANTUS 0.2 UNITS SC (12:39)
[2025-05-21 15:00] VITALS: BP 140/74
[2025-05-21 16:48] LABS: Glucose - Point of Care 173 mg/dl (70-99)
[2025-05-21] MEDS: NOVOLOG FLEXPEN-MODERATE RESISTANCE 1 UNITS SC (18:10)
[2025-05-21] MEDS: COLACE PO (21:22)
[2025-05-21] MEDS: LIPITOR 80 MG PO (21:23)
[2025-05-21] MEDS: REMERON 30 MG PO (21:23)
[2025-05-21] MEDS: LANTUS 0.22 UNITS SC (21:27)
[2025-05-21 21:29] LABS: Glucose - Point of Care 231 mg/dl (70-99)
[2025-05-21 23:19] VITALS: BP 131/78
[2025-05-22] MEDS: HEPARIN SC (01:25)
[2025-05-22 06:00] VITALS: BMI 29.5
[2025-05-22 08:06] VITALS: BP 156/86
[2025-05-22 08:06] LABS: Glucose - Point of Care 279 mg/dl (70-99)
[2025-05-22] MEDS: NOVOLOG FLEXPEN-MODERATE RESISTANCE 5 UNITS SC (08:50)
[2025-05-22] MEDS: COREG 25 MG PO ×2 (08:51→21:29)
[2025-05-22] MEDS: NOVOLOG FLEXPEN 6 UNITS SC ×3 (08:51→18:15)
[2025-05-22] MEDS: DIFLUCAN 200 MG PO (08:51)
[2025-05-22] MEDS: FEOSOL 325 MG PO ×2 (08:51→21:30)
[2025-05-22] MEDS: RANEXA EXTENDED RELEASE 1000 MG PO ×2 (08:51→21:29)
[2025-05-22] MEDS: ASPIR LOW (ENTERIC COATED) 81 MG PO (08:52)
[2025-05-22] MEDS: NEURONTIN 300 MG PO ×3 (08:52→21:30)
[2025-05-22] MEDS: DEMADEX 10 MG PO (08:52)
[2025-05-22] MEDS: FLORASTOR 250 MG PO ×2 (08:54→21:29)
[2025-05-22] MEDS: HEPARIN 5000 UNITS SC ×2 (08:54→18:12)
[2025-05-22] MEDS: CYMBALTA DELAYED RELEASE 30 MG PO (08:54)
[2025-05-22] MEDS: NORVASC 5 MG PO (08:54)
[2025-05-22] MEDS: IMDUR (EXTENDED RELEASE) 60 MG PO (08:54)
[2025-05-22] MEDS: COLACE 100 MG PO (08:54)
[2025-05-22] MEDS: FIRVANQ 125 MG PO (08:57)
[2025-05-22] MEDS: LANTUS 0.22 UNITS SC (08:57)
[2025-05-22 12:22] LABS: Glucose - Point of Care 240 mg/dl (70-99)
--- NOTE | 2025-05-22 12:56 | W.PN.HOSP.TC ---
Today's Communication/Plan
-
Assessment / Plan
Assessment / Plan
General: No Apparent Distress, Comfortable and Conversant, in police custody
HEENT: NormoCephalic, Moist mucous membranes, Atraumatic
Respiratory: Clear and Non Labored Respirations
Cardiac: S1/S2 and Regular Rhythm; No Rub or Gallop
GI: Soft, normal bowel sounds
Musculoskeletal: No Edema, bilateral BKA, left BKA stump dressing with wound VAC and stump protector in place
Skin: Warm and dry
: No Castillo
Neuro: Awake, Alert, Nonfocal/grossly intact
Psych: Calm and cooperative
1. BKA infection 2/2 Wound Dehiscence
- Appreciate Vascular and ID recs
- CT LLE (05/17):
1. LARGE 10.8 cm OPEN WOUND overlying the anterior and distal aspect of the tibial diaphysis at the site of the [id number] AMPUTATION.
2. 4.2 cm ABSCESS medial to the tibial diaphysis deep to the wound. Actually turned out to be hematoma not abscess after surgical evaluation
3. Mild soft tissue emphysema around the tibial diaphysis.
4. No CT evidence for acute osteomyelitis.
- s/p L BKA washout, hematoma evac, and wound vac placement on 05/18
- Wound vac change 05/20; q48-72h changes on discharge, vascular follow up provided
- Daptomycin/Avycaz discontinued
- Pain control escalated to [place] in the setting of procedure
- Patient not on opioid pain meds while in nursing home
- PRN pain med for wound vac change
- Wound Cx negative
- Otherwise afebrile and normocytosis
- Medically stable for discharge once wound VAC has been delivered to correctional facility
2. C Diff Colitis
- Continue Vancomycin PO for now (IV Abx d/c)
- Once daily 125mg dosing per ID through 05/24 for prophylaxis
3. CPPD of R Knee
- Recently completed course of steroids
4. History of CAD
- Continue ASA, statin, ranolazine
5. Essential HTN
- Continue Norvac, Coreg, Imdur
6. SHAYLA
-duloxetine continued
-Remeron continued for anxiety
7. WILBER
-ferrous sulfate continued
8. History of type 1 diabetes with hyperglycemia and neuropathy
- gabapentin continued
- Lantus increased to 24U BID 05/22; continue 6 units of short acting mealtime insulin, continue AC and SS
- CHO diet
9. hxt of CKD IIIa
#urinary retention
-bladder scan and q6h straight cath
10. nikki albicans UTI
- Continue fluconazole through 05/22
Diet: Low CHO
CODE: Full
PPx: [place] Heparin
Dispo Planning:
-IV abx discontinued.
-Wound vac delivery to nursing home...
-PT Eval
-Nursing available to accept patient?
Anticipated Discharge: 24 - 48 hours
Subjective/Interval History
-
Date of Service: May 22, 2025
Patient was seen and examined at bedside this morning. No acute events overnight. Awaiting wound VAC delivery to correctional facility.
Objective Data
-
Vital Signs:
Vital Signs
Temp Pulse Resp BP Pulse Ox
98.0 F 84 16 156/86 97
05/22/25 08:06 05/22/25 08:06 05/22/25 08:06 05/22/25 08:06 05/22/25 08:30
I&O
05/21/25 05/22/25 05/23/25
06:59 06:59 06:59
Intake Total 2320 / 2320 2700 / 2700
Output Total 3800 / 3800 6450 / 6450 700 / 700
Balance -1480 / -1480 -3750 / -3750 -700 / -700
Review of Systems
-
History Source: Patient
All other systems: Reviewed and negative
Physical Exam
-
General: No Apparent Distress
[2025-05-22] MEDS: NOVOLOG FLEXPEN-MODERATE RESISTANCE 3 UNITS SC (13:07)
[2025-05-22 16:08] VITALS: BP 111/66
[2025-05-22 17:12] LABS: Glucose - Point of Care 197 mg/dl (70-99)
[2025-05-22] MEDS: NOVOLOG FLEXPEN-MODERATE RESISTANCE 1 UNITS SC (18:14)
[2025-05-22 21:20] VITALS: BP 144/85
[2025-05-22] MEDS: LIPITOR 80 MG PO (21:29)
[2025-05-22] MEDS: COLACE PO (21:30)
[2025-05-22] MEDS: REMERON 30 MG PO (21:30)
[2025-05-22] MEDS: LANTUS 0.24 UNITS SC (21:34)
[2025-05-22 22:07] LABS: Glucose - Point of Care 206 mg/dl (70-99)
[2025-05-22 23:18] VITALS: BP 132/80
[2025-05-23] MEDS: HEPARIN SC (00:02)
[2025-05-23 06:00] VITALS: BMI 29.7
[2025-05-23 08:18] LABS: Glucose - Point of Care 328 mg/dl (70-99)
[2025-05-23 08:24] VITALS: BP 134/86
[2025-05-23] MEDS: NOVOLOG FLEXPEN 6 UNITS SC ×2 (08:25→12:26)
[2025-05-23] MEDS: LANTUS 0.24 UNITS SC (08:25)
[2025-05-23] MEDS: NOVOLOG FLEXPEN-MODERATE RESISTANCE 7 UNITS SC (08:26)
[2025-05-23] MEDS: CYMBALTA DELAYED RELEASE 30 MG PO (08:27)
[2025-05-23] MEDS: IMDUR (EXTENDED RELEASE) 60 MG PO (08:27)
[2025-05-23] MEDS: COREG 25 MG PO (08:27)
[2025-05-23] MEDS: RANEXA EXTENDED RELEASE 1000 MG PO (08:27)
[2025-05-23] MEDS: DEMADEX 10 MG PO (08:27)
[2025-05-23] MEDS: ASPIR LOW (ENTERIC COATED) 81 MG PO (08:27)
[2025-05-23] MEDS: NEURONTIN 300 MG PO (08:27)
[2025-05-23] MEDS: FIRVANQ 125 MG PO (08:28)
[2025-05-23] MEDS: FLORASTOR 250 MG PO (08:28)
[2025-05-23] MEDS: COLACE 100 MG PO (08:28)
[2025-05-23] MEDS: HEPARIN 5000 UNITS SC (08:28)
[2025-05-23] MEDS: NORVASC 5 MG PO (08:28)
[2025-05-23] MEDS: FEOSOL 325 MG PO (08:28)
--- NOTE | 2025-05-23 09:43 | CM ---
Addendum entered by Sarah Soni 05/23/25 12:24:
Patient ordered Outpatient Urology Consult; Magy @ [facility] notified and is agreeable with discharge plan
Addendum entered by Sarah Soni 05/23/25 09:51:
Attending and clinical staff notified of plan for discharge
Addendum entered by Sarah Soni 05/23/25 09:48:
Spoke with Magy @ [facility] # [phone]; she reported that Wound Vac from [facility] is scheduled for delivery @ 1330 today.
Transport will be provided by [facility] support personnel
Original Note:
Plan: Discharge to [facility] today
Report # [phone]
[2025-05-23 09:50] LABS: Hematocrit 29.6 % (39.0-52.0); Hemoglobin 8.9 g/dL (13.0-18.0); Mean Corp Hgb Conc. 30.1 g/dL (33.0-37.0); Mean Corpuscular Volume 93.7 fL (80.0-94.0); Platelet Count 484 10^3/uL (130-400); Red Cell Dist. Width 16.8 % (11.5-14.5)
[2025-05-23 10:27] LABS: Blood Urea Nitrogen 18 mg/dl (9-20); Calcium 8.4 mg/dl (8.4-10.2); Carbon Dioxide 28 mmol/L (22-30); Chloride 101 mmol/L (98-107); Estimated Creatinine Clearance 109 ml/min; Glucose 343 mg/dl (70-99); Potassium 5.3 mmol/L (3.5-5.1); Sodium 136 mmol/L (135-145); eGFR > 60.00
--- NOTE | 2025-05-23 11:10 | W.PN.ID1 ---
Date of Service
Date of Service: May 23, 2025
Today's Communication
Recommend Urology consult.
Assessment / Plan
# Persistent bladder pain
-urinary retention, self-cath
- NOT CONSISTENT with UTI. Still symptomatic despite appropriate fluconazole (completed 05/22) for C. albican recovered from urine previously.
- 05/23 UA neg nitrite, neg LE
- Recommend Urology consult.
# Left BKA stump dehiscence due to fall. (Recent hx L BKA 04/21/25)
# Left BKA hematoma
# Multiple abx allergies.
- 05/18 s/p I+D, evacuation of hematoma. Per Vascular - no hematoma.
- s/p 4d Daptomycin and ceftaz/avibactam - dc'd
# Leukocytosis
- resolved
# Recent C. difficile, first episode
- Completed 14 days of po Vanco.
- Continue prophylactic dose Vanco 125 mg po daily through 05/24/25 (5 days past dc systemic abx's)
Conditions present on admission:
Diabetes mellitus
CAD status post PCI
CHF
hx CKD3
Hypertension
Guillain-Potts� syndrome/CIDP, plasma exchange q 2 months
C. diff (05/02/25)
PAD status post right BKA ([place])
L foot osteo s/p LLE BKA (04/21/25) after failed multiple revisions/TMA
R femoral raza removal 05/06/25; cultures negative (before abx).
Pseudogout (R knee)
Chief Complaint
-: Other (Wound dehiscence)
Subjective / Review of Systems
Asked to see patient.
He c/o persistent bladder needle-like pain, worse when he self-cath. Pain did not improve while on fluconazole for C. albican in urine.
Vital Signs / Physical Exam
Vital Signs
Vital Signs
Temp Pulse Resp BP Pulse Ox
98 F 84 16 134/86 98
05/23/25 08:24 05/23/25 08:24 05/23/25 08:24 05/23/25 08:24 05/23/25 08:24
Physical Exam
Constitutional: No Acute Distress and Comfortable
Cardiovascular: Regular Rate and S1/S2
Gastrointestinal: Soft, Non Tender and Non Distended
Genito-Urinary: Negative CVA Tenderness
Wound: Other (LLE stump with wound vac)
Neurological: AO x 3
Objective Data
Lab Data
Lab Results
05/23/25 09:36
05/23/25 09:36
Estimated Creat Clear 109 ml/min 05/23/25 09:36
Total Bilirubin 0.7 mg/dl (0.2-1.3) 05/16/25 17:21
AST 19 U/L (17-59) 05/16/25 17:21
ALT 21 U/L (0-50) 05/16/25 17:21
Alkaline Phosphatase 120 U/L (38-126) 05/16/25 17:21
Most recent labs reviewed.
Micro Results:
05/16/25 17:21 Wound Culture - Final
Surgical Wound Gram Stain - Final
05/16/25 CT LLE:
1. LARGE 10.8 cm OPEN WOUND overlying the anterior and distal aspect of the tibial diaphysis at the site of the [id number] AMPUTATION.
2. 4.2 cm ABSCESS medial to the tibial diaphysis deep to the wound.
3. Mild soft tissue emphysema around the tibial diaphysis.
4. No CT evidence for acute osteomyelitis.
5. Severe peripheral arterial calcific atherosclerotic disease.
Care Review
Plan reviewed with: Physician (Dr. Loera)
[2025-05-23 11:13] LABS: Urine Character Clear (Clear)
--- NOTE | 2025-05-23 11:17 | W.PN.HOSP.TC ---
Addendum entered and electronically signed by Nichol Loera MD 05/23/25 15:21:
Attending�addendum:
I saw and evaluated the patient. I reviewed the resident�s note and agree with findings and plan as documented in the resident�s note.��patient still complaining of urinary symptoms, seen by factors is recommended urology consult.
Discussed with urology on-call who recommended outpatient follow up.
Physical�exam:
GENERAL : Patient is awake, alert, oriented x3
HEENT: Nonicteric sclerae, PERRLA, EOMI. Oropharynx clear. Moist mucous membranes. Conjunctivae appear well perfused.
CHEST: Chest wall is nontender.
HEART: Regular rate and rhythm without murmurs.
LUNGS: Clear to auscultation bilaterally.
ABDOMEN: Soft, positive bowel sounds, nontender, no organomegaly.
RECTAL: Deferred.
MUSCLES/EXTREMITIES: Bilateral BKA
NEUROLOGIC: Cranial nerves II-XII intact without motor/sensory deficit.
�
Assessment/plan:
Infection secondary to wound dehiscence.
Will be discharged on wound VAC.
Appreciate infectious ease input.
Discontinued antibiotics.
Urinary symptoms.
Follow-up with urology as outpatient.
Repeat urinalysis negative
C. difficile colitis.
Continue Vanco
Discharge today
�
Total time spent on today�s encounter was 51 minutes which included time spent in counseling the patient/family regarding diagnosis and treatment plan as listed above, goals of care, and symptom management. Case was discussed with nursing staff,
specialists, and care coordinators/case management. All labs and imaging personally reviewed by me. Remainder the time spent in detailed review of previous records, lab data, imaging, and other medical provider documentation.
Original Note:
Today's Communication/Plan
-
Discharge to [facility].
Wound Vac change today at [facility].
Outpatient follow ups with vascular and urology.
Assessment / Plan
Assessment / Plan
1. BKA infection 2/2 Wound Dehiscence
- Appreciate Vascular and ID recs
- CT LLE (05/17):
1. LARGE 10.8 cm OPEN WOUND overlying the anterior and distal aspect of the tibial diaphysis at the site of the [id number] AMPUTATION.
2. 4.2 cm ABSCESS medial to the tibial diaphysis deep to the wound. Actually turned out to be hematoma not abscess after surgical evaluation
3. Mild soft tissue emphysema around the tibial diaphysis.
4. No CT evidence for acute osteomyelitis.
- s/p L BKA washout, hematoma evac, and wound vac placement on 05/18
- Wound vac change 05/20; q48-72h changes on discharge, vascular follow up provided
- Wound vac to be changed today at shelter by RN
- Daptomycin/Avycaz discontinued
- Wound Cx negative
- Otherwise afebrile and normocytosis
- Medically stable for discharge once [facility] V[facility]; discharge today
2. C Diff Colitis
- Continue Vancomycin PO for now (IV Abx d/c)
- Once daily 125mg dosing per ID through 05/24 for prophylaxis
3. CPPD of R Knee
- Recently completed course of steroids
4. History of CAD
- Continue ASA, statin, ranolazine
5. Essential HTN
- Continue Norvac, Coreg, Imdur
6. SHAYLA
-duloxetine continued
-Remeron continued for anxiety
7. WILBER
-ferrous sulfate continued
8. History of type 1 diabetes with hyperglycemia and neuropathy
- gabapentin continued
- Lantus increased to 24U BID 05/22; continue 6 units of short acting mealtime insulin, continue AC and SS
- CHO diet
9. hxt of CKD IIIa
#urinary retention
-bladder scan and q6h straight cath
10. nikki albicans UTI
- Fluconazole course completed 05/22
- Patient with continued symptoms; ID to see today
- UA (05/23) not concerning for UTI
- Urology consulted, recommends outpatient follow-up
Diet: Low CHO
CODE: Full
PPx: SC Heparin
Anticipated Discharge: Today
Subjective/Interval History
-
Date of Service: May 23, 2025
Patient seen and examined while resting comfortably in bed.
Patient feeling okay this morning.
Endorses continued pain on urination and foul smell to urine.
Otherwise denies acute complaints.
Objective Data
-
Labs:
Laboratory Results
05/23/25
09:36
WBC 9.4
Hgb 8.9 L
Hct 29.6 L
Plt Count 484 H
Sodium 136
Potassium 5.3 H
Chloride 101
Carbon Dioxide 28
BUN 18
Creatinine 1.1
Glucose 343 H
Calcium 8.4
Vital Signs:
Vital Signs
Temp Pulse Resp BP Pulse Ox
98 F 84 16 134/86 98
05/23/25 08:24 05/23/25 08:24 05/23/25 08:24 05/23/25 08:24 05/23/25 08:24
I&O
05/22/25 05/23/25 05/24/25
06:59 06:59 06:59
Intake Total 2700 / 2700 1760 / 1760
Output Total 6450 / 6450 2650 / 2650 1750 / 1750
Balance -3750 / -3750 -890 / -890 -1750 / -1750
Review of Systems
-
History Source: Patient
All other systems: Reviewed and negative
Physical Exam
-
General: No Apparent Distress, Comfortable and Conversant
HEENT: Normocephalic, Atraumatic and Moist Mucous Membranes
Respiratory: Clear to Auscultation and Non Labored Respirations; Negative Wheezes, Rales, Rhonchi or Crackles
Cardiac: Regular Rhythm and S1/S2
GI: Soft, Nontender and Normal Bowel Sounds
Musculoskeletal: Other (R BKA stable; L BKA wound vac in place, stump protector in place)
Skin: Warm
Neuro: Awake, Alert and Oriented
Psych: Calm
Data Reviewed
-
Labs: Labs Reviewed by me and Discussed with Patient
[2025-05-23 11:24] LABS: Urine Red Blood Cell 0-2 /HPF (0-2); Urine Squamous Cell 0-2 /LPF (Few); Urine White Cell 0-2 /HPF (0-5)
[2025-05-23] MEDS: NOVOLOG FLEXPEN-MODERATE RESISTANCE 5 UNITS SC (12:26)
[2025-05-23 12:42] LABS: Glucose - Point of Care 292 mg/dl (70-99)
[2025-05-23 13:07] VITALS: BP 116/70
--- NOTE | 2025-05-23 13:16 | PTCARENOTE ---
Per wound care - wound vac removed and wound packed w/ saline soaked gauze, covered w/ abd, wrapped in andriy. Wound vac will be re-applied back at [facility] [place].
--- NOTE | 2025-05-23 14:07 | WOUNDNOTE ---
WOC RN note: Notified [employer] via [employer] [facility] (serial #[id number]) stop bill date as of 05/23/25 and pump orange picker (work order #[id number]).
--- NOTE | 2025-05-23 15:49 | W.DCSUMMARY ---
Addendum entered and electronically signed by Nichlo Loera MD 05/25/25 13:22:
Attending�addendum:
I saw and evaluated the patient. I reviewed the resident�s note and agree with findings and plan as documented in the resident�s note.��patient still complaining of urinary symptoms, seen by factors is recommended urology consult.
Discussed with urology on-call who recommended outpatient follow up.
Physical�exam:
GENERAL : Patient is awake, alert, oriented x3
HEENT: Nonicteric sclerae, PERRLA, EOMI. Oropharynx clear. Moist mucous membranes. Conjunctivae appear well perfused.
CHEST: Chest wall is nontender.
HEART: Regular rate and rhythm without murmurs.
LUNGS: Clear to auscultation bilaterally.
ABDOMEN: Soft, positive bowel sounds, nontender, no organomegaly.
RECTAL: Deferred.
MUSCLES/EXTREMITIES: Bilateral BKA
NEUROLOGIC: Cranial nerves II-XII intact without motor/sensory deficit.
�
Assessment/plan:
Infection secondary to wound dehiscence.
Will be discharged on wound VAC.
Appreciate infectious ease input.
Discontinued antibiotics.
Urinary symptoms.
Follow-up with urology as outpatient.
Repeat urinalysis negative
C. difficile colitis.
Continue Vanco
Discharge today
�
Total time spent on today�s encounter was 40 minutes which included time spent in counseling the patient/family regarding diagnosis and treatment plan as listed above, goals of care, and symptom management. Case was discussed with nursing staff,
specialists, and care coordinators/case management. All labs and imaging personally reviewed by me. Remainder the time spent in detailed review of previous records, lab data, imaging, and other medical provider documentation
Original Note:
Documented by User: Elmo Novoa DO, Resident 05/25/25 12:07
Discharge Summary
Discharge Data
Date of Admission: 05/16/25
Date of Discharge: 05/23/25
Total time spent discharging patient (in min): 45
-
Pending Results: No
Hospital Course
Sang Carballo is a 29 year old male with a past medical history of type 1 diabetes mellitus, chronic inflammatory demyelinating polyneuropathy, hypertension, GERD, chronic kidney disease, osteomyelitis with right below the knee amputation, and
recent admission for left foot osteomyelitis with left transmetatarsal amputation and subsequent left below the knee amputation complicated by a course of C. difficile colitis, blood loss anemia and calcium pyrophosphate deposition disease of the
right knee. He presented to the emergency department on 05/16/2025 due to wound dehiscence of the recently amputated left knee.
HISTORY OF PRESENT ILLNESS
Patient stated that while at the present, he was waiting for delivery of a shower chair and was having to drag himself to his shower on the concrete floor resulting in dehiscence of the recent left knee below the knee amputation.
HOSPITAL COURSE
Upon admission, patient was started on intravenous antibiotics due to concern for infection. CT scan of the left lower extremity showed a large 10.8 cm open wound at the site of the below the knee amputation as well as a 4.2 cm collection (which
actually turned out to be a hematoma and not an abscess). There was no CT evidence for acute osteomyelitis. The patient was taken for a washout of the left foot below the knee amputation, hematoma evacuation, and placement of a wound VAC on 05/18.
After wound washout cultures were negative, intravenous antibiotics were discontinued. Patient otherwise remained afebrile and without leukocytosis. Patient also received a stump protector.
DISCHARGE RECOMMENDATIONS
Follow up with vascular surgery for managment of wound vac.
While wound vac is in place, change the apparatus every 48-72 hours.
Patient was also given stump protector to avoid dehiscence of surgical site.
Patient to continue vancomycin 125mf once daily through 05/24/25.
Course of fluconazole has lapsed over the course of this admission.
Patient's Lantus was increased to 24 units, twice a day in the setting of elevated blood sugars.
Meal time insulin remains the same at 6 units AC.
Continue low carbohydrate diet.
Patient with continued genitourinary symptoms. Urinalysis was negative. Suggested outpatient follow up with urology.
Discharge Plan
-
Patient Disposition: [facility]
Discharge Diagnosis/Procedures: *Wound Dehiscence of Left Knee Below the Knee Amputation
*Anna Albicans Urinary Tract Infection
*Recent History of Clostridium Difficile Colitis
*Recent History of Calcium Pyrophosphate Deposition of the Right Knee
*Type 1 Diabetes Mellitus
History of CAD
History of Hypertension
History of Anxiety
History of Iron Deficiency Anemia
History of Chronic Kidney Disease Stage 3
Condition: Fair
Diet: Diabetic, Carb Controlled
Activity: With assistance
Activity Restrictions/Additional Instructions:
Wound Care Instructions
L BKA wound: Wound vac therapy-use black foam, Change every 48 - 72 hours (i. e. Tvdkzhn-Bbfshgitkv-Wczxzoz) and prn if unable to obtain a seal. Low Intensity, Continuous at 125 mmHg. Upon discharge or transfer to another facility, remove VAC foam
and apply NS moistened gauze dressing unless home VAC unit available.
R BKA: clean with saline, apply bordered gauze or silicone foam and change daily.
R knee and thigh staple sites: clean with soap and water, leave open to air.
If patient picking at trino cover with bordered gauze or foam.
Antibiotic Instructions
Continue Fluconazole 200mg once daily through 05/22/25.
Continue Vancomycin 125mg once daily through 05/24/25.
Insulin Glargine dose increased to 20 units twice a day. Mealtime insulin remains at 6 units AC.
Patient evaluated by physical therapy while in hospital. The patient is able to perform transfer board transfer with minimal assistance to and from the wheelchair/bed. Patient will need a wheelchair with removable armrest, transfer board and
assistance to safely transfer onto surfaces.
Patient has a follow up appointment with vascular surgery on 06/03/25 at 1:00pm.
Please call the office of Dr. Lock (urology) for work up of dysuria.
Wound Vac to be changed today 05/23/2025, by nursing at [facility]. Then changed every 48-72 hours (e.g., Friday, Friday, Friday).
Referrals:
Vascular Surgery Office [Other, Vascular Surgery] - 06/03/25 1:00 pm
[facility] [Family Provider, General]
Tim Lock MD [Active, Urology]
Prescriptions:
New
vancomycin 125 mg capsule
125 mg PO DAILY 1 Days Qty: 1 0RF
Insulin Glargine Lantus [Lantus] 24 UNITS
Subcutaneous Insulin Syringe [Syringe-Insulin] 0 UNIT
As Directed mls/hr SC BID@0800,2200
Ordered By: Elmo Novoa DO, Resident
Last Taken: 05/23/25 08:25 0.24 mls
Continued
atorvastatin 80 mg Tablet
80 mg PO HS
carvedilol 25 mg Tablet
25 mg PO BID
aspirin 81 mg Tablet,Delayed Release (Dr/Ec)
81 mg PO DAILY
isosorbide mononitrate 60 mg Tablet Extended Release 24 Hr
60 mg PO DAILY
ranolazine 1,000 mg Tablet Extended Release 12 Hr
1,000 mg PO BID
gabapentin 300 mg Capsule
300 mg PO TID
duloxetine 30 mg Capsule,Delayed Release(Dr/Ec)
30 mg PO DAILY
mirtazapine 30 mg Tablet
30 mg PO HS
ferrous sulfate [FeroSul] 325 mg (65 mg iron) Tablet
325 mg PO BID Qty: 10 0RF
Rx Instructions:
Stools may become darker/terrell with oral iron supplement.
docusate sodium 100 mg Capsule
100 mg PO BID Qty: 30 0RF
torsemide 5 mg Tablet
10 mg PO DAILY Qty: 30 0RF
Humulin R Regular U-100 Insuln 100 unit/mL Solution
6 sliding scale dose SC ACHS
amlodipine 5 mg tablet
5 mg PO DAILY
Saccharomyces boulardii 250 mg capsule
250 mg PO BID
Discontinued
fluconazole 200 mg Tablet
200 mg PO DAILY 9 Days Qty: 9 0RF
vancomycin 125 mg Capsule
125 mg PO QID
insulin glargine [Lantus Solostar U-100 Insulin] 100 unit/mL (3 mL) Insulin Pen
18 unit SC BID
prednisone 20 mg tablet
20 mg PO DAILY
Discharge Orders:
Discharge Patient (As Directed); Ordered 05/23/25
Ordered By: Elmo Novoa
Discharge Date and Time
Discharge Date/Time: 05/23/25 13:06
Print Language: SURINAMESE

Documented by User: Nichol Loera MD 05/25/25 13:18
Discharge Summary
Discharge Data
Date of Admission: 05/16/25
Date of Discharge: 05/25/25
Discharge Plan
-
Patient Disposition: [facility]
Discharge Diagnosis/Procedures: *Wound Dehiscence of Left Knee Below the Knee Amputation
*Anna Albicans Urinary Tract Infection
*Recent History of Clostridium Difficile Colitis
*Recent History of Calcium Pyrophosphate Deposition of the Right Knee
*Type 1 Diabetes Mellitus
History of CAD
History of Hypertension
History of Anxiety
History of Iron Deficiency Anemia
History of Chronic Kidney Disease Stage 3
Condition: Fair
Diet: Diabetic, Carb Controlled
Activity: With assistance
Activity Restrictions/Additional Instructions:
Wound Care Instructions
L BKA wound: Wound vac therapy-use black foam, Change every 48 - 72 hours (i. e. Evvpidi-Mtnnnhetip-Tlicfwi) and prn if unable to obtain a seal. Low Intensity, Continuous at 125 mmHg. Upon discharge or transfer to another facility, remove VAC foam
and apply NS moistened gauze dressing unless home VAC unit available.
R BKA: clean with saline, apply bordered gauze or silicone foam and change daily.
R knee and thigh staple sites: clean with soap and water, leave open to air.
If patient picking at trino cover with bordered gauze or foam.
Antibiotic Instructions
Continue Fluconazole 200mg once daily through 05/22/25.
Continue Vancomycin 125mg once daily through 05/24/25.
Insulin Glargine dose increased to 20 units twice a day. Mealtime insulin remains at 6 units AC.
Patient evaluated by physical therapy while in hospital. The patient is able to perform transfer board transfer with minimal assistance to and from the wheelchair/bed. Patient will need a wheelchair with removable armrest, transfer board and
assistance to safely transfer onto surfaces.
Patient has a follow up appointment with vascular surgery on 06/03/25 at 1:00pm.
Please call the office of Dr. Lock (urology) for work up of dysuria.
Wound Vac to be changed today 05/23/2025, by nursing at [facility]. Then changed every 48-72 hours (e.g., Friday, Friday, Friday).
Referrals:
Vascular Surgery Office [Other, Vascular Surgery] - 06/03/25 1:00 pm
[facility] [Family Provider, General]
Tim Lock MD [Active, Urology]
Prescriptions:
New
vancomycin 125 mg capsule
125 mg PO DAILY 1 Days Qty: 1 0RF
Insulin Glargine Lantus [Lantus] 24 UNITS
Subcutaneous Insulin Syringe [Syringe-Insulin] 0 UNIT
As Directed mls/hr SC BID@0800,2200
Ordered By: Elmo Novoa DO, Resident
Last Taken: 05/23/25 08:25 0.24 mls
Continued
atorvastatin 80 mg Tablet
80 mg PO HS
carvedilol 25 mg Tablet
25 mg PO BID
aspirin 81 mg Tablet,Delayed Release (Dr/Ec)
81 mg PO DAILY
isosorbide mononitrate 60 mg Tablet Extended Release 24 Hr
60 mg PO DAILY
ranolazine 1,000 mg Tablet Extended Release 12 Hr
1,000 mg PO BID
gabapentin 300 mg Capsule
300 mg PO TID
duloxetine 30 mg Capsule,Delayed Release(Dr/Ec)
30 mg PO DAILY
mirtazapine 30 mg Tablet
30 mg PO HS
ferrous sulfate [FeroSul] 325 mg (65 mg iron) Tablet
325 mg PO BID Qty: 10 0RF
Rx Instructions:
Stools may become darker/terrell with oral iron supplement.
docusate sodium 100 mg Capsule
100 mg PO BID Qty: 30 0RF
torsemide 5 mg Tablet
10 mg PO DAILY Qty: 30 0RF
Humulin R Regular U-100 Insuln 100 unit/mL Solution
6 sliding scale dose SC ACHS
amlodipine 5 mg tablet
5 mg PO DAILY
Saccharomyces boulardii 250 mg capsule
250 mg PO BID
Discontinued
fluconazole 200 mg Tablet
200 mg PO DAILY 9 Days Qty: 9 0RF
vancomycin 125 mg Capsule
125 mg PO QID
insulin glargine [Lantus Solostar U-100 Insulin] 100 unit/mL (3 mL) Insulin Pen
18 unit SC BID
prednisone 20 mg tablet
20 mg PO DAILY
Discharge Orders:
Discharge Patient (As Directed); Ordered 05/23/25
Ordered By: Elmo Novoa
Discharge Date and Time
Discharge Date/Time: 05/23/25 13:06
Print Language: SURINAMESE
== END 2025-05-23 13:06 | DRG 501 ==
LOC: 2 NORTH 18:17
PROVIDERS: Internal Medicine; Registered Nurse; Student in an Organized Health Care Education/Training Program; Surgery Vascular Surgery; ADMITTING PHYSICIAN Hospitalist; ATTENDING PHYSICIAN General Practice; CONSULT PHYSICIAN Internal Medicine Infectious Disease; EMERGENCY PHYSICIAN Emergency Medicine; OTHER PHYSICIAN Surgery Vascular Surgery
PROC: 0JDP0ZZ Extraction of Left Lower Leg Subcutaneous Tissue and Fascia, Open Approach (ICD-10-PCS; 2025-05-18)
PROC: 0Y9J0ZZ Drainage of Left Lower Leg, Open Approach (ICD-10-PCS; 2025-05-18)
DX: T87.81 Dehiscence of amputation stump (principal); D62 Acute posthemorrhagic anemia; G61.81 Chronic inflammatory demyelinating polyneuritis; N17.9 Acute kidney failure, unspecified; G61.0 Guillain-Barre syndrome; I13.0 Hypertensive heart and chronic kidney disease with heart failure and stage 1 through stage 4 chronic kidney disease, or unspecified chronic kidney disease; T87.44 Infection of amputation stump, left lower extremity; E10.65 Type 1 diabetes mellitus with hyperglycemia; W19.XXXA Unspecified fall, initial encounter; I25.10 Atherosclerotic heart disease of native coronary artery without angina pectoris; Z95.5 Presence of coronary angioplasty implant and graft; N18.31 Chronic kidney disease, stage 3a; E10.22 Type 1 diabetes mellitus with diabetic chronic kidney disease; Y83.5 Amputation of limb(s) as the cause of abnormal reaction of the patient, or of later complication, without mention of misadventure at the time of the procedure; Z88.5 Allergy status to narcotic agent; Z88.1 Allergy status to other antibiotic agents; Z88.0 Allergy status to penicillin; Z88.8 Allergy status to other drugs, medicaments and biological substances; Z88.6 Allergy status to analgesic agent; Z79.82 Long term (current) use of aspirin; Z79.4 Long term (current) use of insulin; Z79.899 Other long term (current) drug therapy; D50.9 Iron deficiency anemia, unspecified; E10.69 Type 1 diabetes mellitus with other specified complication; E78.00 Pure hypercholesterolemia, unspecified; F41.9 Anxiety disorder, unspecified; I50.9 Heart failure, unspecified; N31.9 Neuromuscular dysfunction of bladder, unspecified; F32.A Depression, unspecified; K21.9 Gastro-esophageal reflux disease without esophagitis
CPT/HCPCS: 10140; 73701; 80048; 80053; 81003; 81015; 82010; 82550; 82947; 82962; 83036; 85014; 85018; 85025; 85027; 87070; 87147; 87205; 97163; 97605; J0714; J0878; Q9967

== ENCOUNTER 2025-06-13 00:35 | Observation (INO) | payer OTHER, SELFPAY ==
[2025-06-12 21:37] VITALS: BP 135/80
[2025-06-12 21:38] LABS: Glucose - Point of Care 370 mg/dl (70-99)
[2025-06-12 22:00] VITALS: BP 112/78
[2025-06-12] MEDS: DILAUDID 0.5 MG IV (22:15)
[2025-06-12 22:17] LABS: Hematocrit 29.2 % (39.0-52.0); Hemoglobin 9.1 g/dL (13.0-18.0); Mean Corp Hgb Conc. 31.2 g/dL (33.0-37.0); Mean Corpuscular Volume 88.8 fL (80.0-94.0); Nucleated Red Blood Cells % 0 % (-); Platelet Count 575 10^3/uL (130-400); Red Cell Dist. Width 16.3 % (11.5-14.5)
--- NOTE | 2025-06-12 22:29 | ED.GENMED ---
History of Present Illness
General
Chief Complaint: Skin Problem
Time Seen by Provider: 06/12/25 21:56
Nursing documentation reviewed up to this point in time: agreed with
History of Present Illness
History of Present Illness:
29-year-old male presents to the ER in police custody for evaluation of worsening pain and drainage from his left lower extremity BKA site. Patient was admitted to this hospital for amputation 6 weeks ago. He had a complicated course including
multiple intolerances to IV antibiotics and C. difficile. Patient is no longer on antibiotics. Patient had a wound VAC intact which was taken off a few days ago. He states that it had been healing well but at time of dressing change today there
was a large amount of white pus. Patient also reports that he has been feeling feverish and states that his Tmax was 100.3. He also reports that his blood sugars have been very labile in the last 48 hours. He is an insulin-dependent diabetic. He
reports the pain in his left leg to be severe, he denies any other complaints or concerns
Past History
Past History
ED Past Medical History: CHF, HTN, IDDM, NE, Other (BKA right, Two toe amputation left, left heel debridement) and Other (Guillian [place], Chronic Inflammatory Demylinating Polyneuropathy)
ED Past Surgical History: Orthopedic (Right BKA, left two toe amputation, left heel debridement)
Social History
Tobacco: Non-smoker
Drug: None
Living: long term
Review of Systems
Review of Systems
Allergies reviewed?: Yes
Phy Exam
Physical Exam
Physical Exam:
Patient is awake, alert, appears in no acute distress, head is NCAT, PERRL, EOMI mucous membranes moist, conjunctiva pink, heart regular rate and rhythm without murmurs or ectopy, lungs are clear to auscultation without wheezes rales or rhonchi, no
JVD, abdomen is soft and nontender on palpation, bilateral lower extremity examination reveals right knee status post BKA, there is a 1 cm shallow ulceration present on the distal lower leg, stump is otherwise pink and well-perfused, left lower
extremity reveals a gaping healing wound with granulating tissue, there is some white exudate present along the superior aspect of the wound, there is scant areas of bleeding along the lower wound edge, mild diffuse erythema which is blanching at
the wound edges, severe pain on even light palpation to the lower leg, no proximal streaking, GCS is 15
Sepsis
Sepsis Screening
Sepsis Assessment: Sepsis
Sepsis Screen
Sepsis Screen: Sepsis
Date: 06/13/25
Time: 01:04
Course
Orders/Labs/Results
Orders:
Orders
06/12/25 21:56
Electrocardiogram (*1) Urgent
Reason for Study: Other
Other Reason for Exam: Possible Sepsis
Cardiac Monitoring- Treatment ONCE
IV Insert/Care/Rem.- Treatment PRN
Straight cath- Treatment ONCE
O2 Therapy [RESP] Urgent
Titrate/Wean O2 to maintain O2 sat greater than (%): 93
Special Instructions: TO MAINTAIN CONTINUOUS O2 SATS > OR = 93%
Pulse Ox/cont/shift [RESP] Urgent
Quantity: 1
Special Instructions: CONTINUOUS
06/12/25 21:57
EKG- Treatment ONCE
06/12/25 22:07
HYDROmorphone [Dilaudid] 0.5 mg IV NOW STA
06/12/25 22:08
Complete Blood Count/With Diff Urgent
Comprehensive Metabolic Panel Urgent
Lactic Acid Q4H
Comment: ON ICE, CANCEL 2ND ORDER IF FIRST LACTIC ACID LEVEL <2
06/12/25 22:10
CEFTAZidime [Fortaz] 2,000 mg IV NOW STA
06/12/25 22:17
CEFTAZidime [Fortaz] 2,000 mg IV NOW STA
06/12/25 22:24
Blood Culture Q30M
SABAS Source: Blood/Venous
Specimen Description:
Wound Culture [Wound/Abscess/Other Culture] Urgent
SABAS Source: Leg
Specimen Description: Left
Date Specimen was Collected: 06/12/25
Time Specimen was Collected: 22:11
06/12/25 22:57
Blood Culture Q20M
SABAS Source: Blood/Venous
Specimen Description:
Comment: Urgent from separate sites. If patient screens positive for possible sepsis
06/12/25 23:59
Urinalysis Reflex To Culture Urgent
Date Specimen was Collected: 06/12/25
Time Specimen was Collected: 21:57
Urine Microscopic Reflex Cult Urgent
Urine Culture Urgent
SABAS Source: U
Specimen Description:
Date Specimen was Collected: 06/12/25
Time Specimen was Collected: 21:57
06/13/25 00:10
Admit/Transfer Patient As Directed
Co-Sign Provider:
Level of Care: Observation services
Assign to:: Medical/Surgical
Physician / Group: Stephen
Diagnosis: L BKA Wound
PRN Pain Medication Management As Directed
May give lesser potent ordered pain med per pt: Yes
preference::
Protocol:: Medication orders for pain may be administered in a
manner that supports deferring to patient preference
when the pt is:
- Requesting an ordered lesser potent pain medication.
Least to most potent pain medications are defined
as: acetaminophen < NSAID < tramadol < opioids
(morphine, oxycodone, hydromorphone).
- Requesting a lesser dose of the same medication IF
ORDERED.
- Requesting a less intrusive route of administration
if both routes are prescribed by the provider (PO <
IV).
06/13/25 00:12
Code Status As Directed
Resuscitation Status: Full Code
06/13/25 00:56
HYDROmorphone [Dilaudid] 0.5 mg IV Q4HPRN PRN
Hydrocodone 7.5/APAP 325 [[place] 7.5/325] 1 tablet PO Q4HPRN PRN
Abnormal Lab Results
06/12/25 06/12/25 06/12/25
21:37 22:08 23:59
WBC 15.8 H 10^3/uL
(4.8-10.8)
RBC 3.29 L 10^6/uL
(4.70-6.10)
Hgb 9.1 L g/dL
(13.0-18.0)
Hct 29.2 L %
(39.0-52.0)
MCHC 31.2 L g/dL
(33.0-37.0)
RDW 16.3 H %
(11.5-14.5)
Plt Count 575 H 10^3/uL
(130-400)
Abs Immat Gran (auto) 0.2 H 10^3/uL
(0-0.05)
Absolute Neuts (auto) 12.4 H 10^3/uL
(1.4-6.5)
Absolute Monos (auto) 0.9 H 10^3/uL
(0.1-0.6)
Immature Gran % 1.1 H %
(0-0.5)
Neutrophils % 78.3 H %
(42.2-75.2)
Lymphocytes % 13.4 L %
(20.5-51.1)
Glucose 299 H mg/dl
(70-99)
Calcium 8.3 L mg/dl
(8.4-10.2)
AST 13 L U/L
(17-59)
Albumin 3.4 L g/dl
(3.5-5.0)
Ur Occult Blood Reflex 3+ A
(Negative)
Leukocyte Esterase Rfl 2+ A
(Negative)
Urine Glucose 3+ A
(Negative)
Urine Albumin (Reflex) 3+ A
(Neg - Trace)
POC Glucose 370 H mg/dl
(70-99)
06/12/25 22:08
06/12/25 22:08
White blood count elevated. Kidney function preserved. Glucose elevated but CO2 normal-no evidence for DKA
Vital Signs
Initial and Last Documented VS:
Initial Vital Signs
Temp Pulse Resp BP Pulse Ox
99.4 F 99 15 135/80 99
06/12/25 21:37 06/12/25 21:37 06/12/25 21:37 06/12/25 21:37 06/12/25 21:37
Last Documented Vital Signs
Temp Pulse Resp BP Pulse Ox
99.4 F 102 14 119/78 98
06/12/25 21:37 06/13/25 00:10 06/13/25 00:10 06/13/25 00:10 06/13/25 00:10
MDM/Problems Addressed
Differential Diagnosis Includes:
Differential diagnosis to consider but not limited to sepsis, bacteremia DKA, wound infection along with other etiologies considered
Chronic conditions affecting care:
Insulin-dependent diabetes, now bilateral lower extremity amputee, incarceration, history of heart failure, hypertension, high cholesterol, prior NE, neurogenic bladder
*Pulse Oximetry
SaO2: 99
Oxygen Mode of Delivery: Room air
Patient hypoxic: no
*Critical Care Note
Total Time (30-74mins, 75-104mins- exclusive of procedures): Not Applicable
Data Reviewed
Review of Other/Old Records Reveals: Progress Notes (I reviewed infectious disease consultation note from Dr. Ann dated 05/23/2025-during hospitalization patient had been treated for Anna in his urine, he is intolerant of multiple antibiotics
and was on daptomycin, ceftaz and avibactam while in the hospital. He was also on oral vancomycin fo)
Update Note
Update Note:
I reviewed full patient presentation and history with the hospitalist who accepts patient for admission for further care. Antibiotics have been ordered after time of my initial evaluation, based on review of ID note from hospitalization.
Hospitalist held antibiotics pending culture as he had multiple negative cultures during previous hospitalization. IV Dilaudid given for severe reported pain. Patient admitted in stable condition.
ED Attending Note
-
Portions of this chart may have been created with voice recognition software.� Occasional wrong word or��sound alike� substitutions may have occurred due to the inherent limitations of voice recognition software.
Discharge Plan
Departure
Patient Disposition: Admit
Date of Disposition: 06/12/25
Time of Disposition: 23:47
Presentation/result/management discussed w/ accepting MD/DO: Hospitalist
Discharge Problem:
Wound infection, Hyperglycemia, Type 1 diabetes, Self-catheterizes urinary bladder, Chronic anemia
Interventions
Interventions:
*General Assessment Last Done: 06/12/25 21:44
*Neglect/Abuse Screening Last Done: 06/12/25 21:44
*ED- Fall Risk Assessment Last Done: 06/12/25 21:44
*ED COVID-19 Vaccine History Last Done: 06/12/25 21:44
*ED Influenza Vaccine History Last Done: 06/12/25 21:44
ED-Skin Assessment Last Done: 06/12/25 21:44
[2025-06-12 22:30] LABS: ALT (SGPT) 12 U/L (0-50); AST (SGOT) 13 U/L (17-59); Albumin 3.4 g/dl (3.5-5.0); Alkaline Phosphatase 111 U/L (38-126); Blood Urea Nitrogen 20 mg/dl (9-20); Calcium 8.3 mg/dl (8.4-10.2); Carbon Dioxide 28 mmol/L (22-30); Chloride 101 mmol/L (98-107); Glucose 299 mg/dl (70-99); Potassium 4.6 mmol/L (3.5-5.1); Sodium 135 mmol/L (135-145); Total Protein 6.9 g/dl (6.3-8.2); eGFR > 60.00
[2025-06-13] VITALS (17 sets, daily range): BP systolic 91–134; BP diastolic 51–85
--- NOTE | 2025-06-13 00:17 | HPS.HSE ---
Family Physician
-
Family Physician: NOT KNOW UNKNOWN - PT DOES
Chief Complaint
-
L BKA Wound Infection
History of Present Illness
Patient is a 29y M with PMH significant for DM-I, ASCVD and multiple LE amputations who presents to ED for evaluation of L BKA site. Patient was most recently hospitalized here 05/16 - 05/23 and underwent BKA site wash-out / hematoma evacuation
at that time. He was discharged with a wound vac in place and he states that this was removed about one week ago. On Friday of last week he was noted to have some clear appearing drainage from the wound. Today he had a dressing change and there
was 'white pus'. Patient was sent to the ED for further evaluation.
In addition to wound concerns, patient states that he has felt 'lousy' recently. He reports diffuse aches, malaise, dizziness and myalgias.
Patient denies any recent fall, injury or trauma.
Medical History
Past Medical History
Past Medical History: Reports Other
Additional Past Medical History:
IDDM
Osteomyelitis
S/P left hallux and 2nd digit amputation due to osteomyelitis and debridement of left heel ulcer 01/21/25
CAD status post PCI
Hypertension
CHF
Guillian Potts�
GERD.
Past Surgical History: Reports Other
Additional Past Surgical History:
s/p Left 1st and 2nd digit amputation due to osteomyelitis and debridement of left heel ulcer (01/21/25)
PTCA with Stent
Right BKA
Left TMA and Heel Debridement (03/08/25)
I&D of TMA site, Heel Debridement (03/25/25)
I&D of TMA site, Heel Debridement (04/04/25)
Left Lis franc Disarticulation, Complex Closure, Heel Debridement (04/13/25)
Left BKA (04/21/25)
Right Knee I&D, Femoral Nail Removal (05/06/25)
Left BKA I&D, Hematoma Evacuation (05/18/25)
Social History
Tobacco: Non-smoker
Alcohol: None
Drug: None
Personal: Single
Living[facility]
Employment: Disabled
Family History
Family History: Other (Mother factor V Leiden, CAD/CABG, DM 2 55, father living history CAD multiple stents, DM 2, 4 half sisters 1 with history of factor V Leiden)
Allergies / Home Medications
Allergies reflects when Allergies were last updated in [facility].
Home Medications with original date entered in [facility]
Allergy/Medication List:
Allergies
Allergy/AdvReac Type Severity Reaction Status Date / Time
cefepime Allergy Itching, Verified 06/12/25 21:42
rash
ibuprofen Allergy Unknown Verified 06/12/25 21:42
meropenem Allergy Itching, Verified 06/12/25 21:42
rash
oxycodone Allergy Unknown Verified 06/12/25 21:42
Penicillins Allergy Unknown Verified 06/12/25 21:42
silver Allergy Hives Verified 06/12/25 21:42
silver nitrate Allergy Hives Verified 06/12/25 21:42
sweet potato Allergy Unknown Verified 06/12/25 21:42
tuna oil Allergy Unknown Verified 06/12/25 21:42
turkey Allergy Unknown Verified 06/12/25 21:42
vancomycin Allergy Itchy Rash Verified 06/12/25 21:42
Home Medications
aspirin 81 mg tablet,delayed release 81 mg PO DAILY Blood Clot Prevention/Tx 02/02/25
atorvastatin 80 mg tablet 80 mg PO HS High Cholesterol 02/02/25
carvedilol 25 mg tablet 25 mg PO BID Heart Failure 02/02/25
isosorbide mononitrate 60 mg tablet,extended release 24 hr 60 mg PO DAILY Heart Disease/Condition 02/02/25
ranolazine 1,000 mg tablet,extended release,12 hr 1,000 mg PO BID Heart Disease/Condition 02/02/25
duloxetine 30 mg capsule,delayed release 30 mg PO DAILY Mental Health/Anxiety 02/07/25
gabapentin 300 mg capsule 300 mg PO TID NEUROPATHIC PAIN 02/07/25
mirtazapine 30 mg tablet 30 mg PO HS Mental Health/Anxiety 03/23/25
ferrous sulfate 325 mg (65 mg iron) tablet (FeroSul) 325 mg PO BID anemia #10 tabs 04/30/25
amlodipine 5 mg tablet 5 mg PO DAILY Blood Clot Prevention/Tx 05/16/25
insulin regular human 100 unit/mL injection solution (Humulin R Regular U-100 Insulin) 4 unit SC QID Diabetes 05/16/25
Probiotic 1 cap PO BID 06/12/25
docusate sodium 100 mg capsule 100 mg PO BID PRN Constipation 06/12/25
insulin glargine 100 unit/mL subcutaneous solution 28 unit SC HS 06/12/25
torsemide 10 mg tablet 10 mg PO DAILY 06/12/25
Review of Systems
-
History Source: Patient
Constitutional: Reports Fatigue and Chills; Denies Fever
EENT: Denies Sore Throat
Respiratory: Denies Cough or Trouble Breathing
Cardiac: Denies Chest Pain or Palpitations
Abdomen/GI: Reports Anorexia; Denies Abdominal Pain, Nausea or Vomiting
: Reports Difficulty Voiding (chronically straight-cath dependent); Denies Dysuria or Frequency
Musculoskeletal: Reports Joint Pain and Muscle Pain
Neurological: Reports Headache; Denies Dizzy
Physical Exam
Vital Signs
Vital Signs
Temp Pulse Resp BP Pulse Ox
99.4 F 102 14 119/78 98
06/12/25 21:37 06/13/25 00:10 06/13/25 00:10 06/13/25 00:10 06/13/25 00:10
Physical Exam
General: Other (29y M in no acute distress.)
HEENT: Moist mucous membranes and PERRLA
Respiratory: Clear; No Wheezes, Rales or Rhonchi
Cardiac: S1/S2 and Regular Rhythm; No Murmur
GI: Soft, Non Tender, Non Distended and Normal Bowel Sounds
Musculoskeletal: Other (R BKA site with minimal superficial crusted lesion - healing well. L BKA site with open wound bed. Scant bleeding at edges. Fibrinous material at base. No surrounding erythema, induration or purulent discharge.)
Neuro: AO x 3
Laboratory Results
-
06/12/25 22:08
06/12/25 22:08
Laboratory Results
Lactic Acid Cancelled 06/13/25 02:00
Total Bilirubin 0.3 mg/dl (0.2-1.3) 06/12/25 22:08
AST 13 U/L (17-59) L 06/12/25 22:08
ALT 12 U/L (0-50) 06/12/25 22:08
Alkaline Phosphatase 111 U/L (38-126) 06/12/25 22:08
Impression/Plan
-
A/P: Patient is a 29y M with PMH significant for multiple recent LLE surgeries and recent wound vac who presents to ED for evaluation of L BKA wound site.
Left BKA Wound
- Observe overnight for further evaluation and treatment.
- The wound does not appear acutely infected to me. Normal fibrinous material at wound bed with some punctate bleeding / healthy tissue.
- Would observe off of antibiotics for now.
- Note that despite multiple admissions and surgeries for suspected infections - patient has not had a positive culture since 04/13/25 (that was from his foot).
- Most recent I&D of this BKA site revealed only hematoma - no infection or abscess.
- Wound Care eval for local care.
- ID eval for any additional recommendations.
- Monitor fever curve / culture data / etc.
- Follow for any new / worsening symptoms.
ASCVD
- Stable. Prior h/o CAD with stent, significant PAD with multiple amputations, etc.
- Continue current med regimen including DAPT, statin, anti-anginal medications.
DM-I with Hyperglycemia
- Stable. Continue basal : bolus insulin regimen.
- Follow glucose and cover with SSI as needed.
- A1C = 6.6% on 05/17/25.
CKD III
Urinary Retention
- Stable. Renal function is at / near known baseline.
- Follow bladder scan / straight cath as needed.
- Follow for any changes.
Chronic Iron Deficiency Anemia
- Stable. Hgb is at / near known baseline.
- Continue iron supplementations.
Pseudo Gout
- Stable. No erythema, significant warmth, etc over either knee at present.
Anxiety / Depression
- Stable. Continue duloxetine, mirtazapine.
DVT Prophylaxis: Lovenox
Code Status: Full
[2025-06-13 00:34] LABS: Urine Character Slightly Cloudy (Clear)
[2025-06-13] MEDS: DILAUDID 0.5 MG IV ×5 (01:14→22:31)
[2025-06-13 01:28] LABS: Urine Squamous Cell >30 /LPF (Few); Urine White Cell >100 /HPF (0-5)
--- NOTE | 2025-06-13 03:00 | EDRN ---
Report received, patient waiting on a bed at this time.
--- NOTE | 2025-06-13 04:00 | EDRN ---
Patient placed on bedpan, as he thought he needed to have a bowl movement, patient didn't go and he took himself off of the bed jin.
[2025-06-13] MEDS: NORCO 7.5/325 1 TABLET PO ×4 (04:50→18:39)
--- NOTE | 2025-06-13 05:37 | EDRN ---
Patient requesting something for pain, medicated as ordered.
[2025-06-13 06:31] LABS: Hematocrit 26.1 % (39.0-52.0); Hemoglobin 8.4 g/dL (13.0-18.0); Mean Corp Hgb Conc. 32.2 g/dL (33.0-37.0); Mean Corpuscular Volume 89.1 fL (80.0-94.0); Platelet Count 532 10^3/uL (130-400); Red Cell Dist. Width 16.3 % (11.5-14.5)
[2025-06-13 07:32] LABS: Blood Urea Nitrogen 20 mg/dl (9-20); Calcium 8.1 mg/dl (8.4-10.2); Carbon Dioxide 27 mmol/L (22-30); Chloride 103 mmol/L (98-107); Glucose 68 mg/dl (70-99); Sodium 134 mmol/L (135-145); eGFR > 60.00
[2025-06-13 07:38] LABS: Glucose - Point of Care 93 mg/dl (70-99)
[2025-06-13 08:24] LABS: Potassium 4.4 mmol/L (3.5-5.1)
[2025-06-13] MEDS: COREG 25 MG PO ×2 (08:29→19:54)
[2025-06-13] MEDS: NOVOLOG FLEXPEN-LOW RESISTANCE SC (08:29)
[2025-06-13] MEDS: NEURONTIN 300 MG PO ×3 (08:29→22:26)
[2025-06-13] MEDS: VISBIOME 1 CAP PO ×2 (08:30→19:54)
[2025-06-13] MEDS: ASPIR LOW (ENTERIC COATED) 81 MG PO (08:30)
[2025-06-13] MEDS: CYMBALTA DELAYED RELEASE 30 MG PO (08:30)
[2025-06-13] MEDS: NORVASC 5 MG PO (08:30)
[2025-06-13] MEDS: DEMADEX 10 MG PO (08:30)
[2025-06-13] MEDS: RANEXA EXTENDED RELEASE 1000 MG PO ×2 (08:30→19:54)
[2025-06-13] MEDS: FEOSOL 325 MG PO ×2 (08:30→19:54)
[2025-06-13] MEDS: IMDUR (EXTENDED RELEASE) 60 MG PO (08:30)
[2025-06-13] MEDS: NOVOLIN R 4 UNITS SC ×2 (09:00→13:30)
--- NOTE | 2025-06-13 09:13 | W.PN.HOSP.TC ---
Today's Communication/Plan
-
Wound care
Follow cultures
Assessment / Plan
Assessment / Plan
A/P: Patient is a 29y M with PMH significant for multiple recent LLE surgeries and recent wound vac who presents to ED for evaluation of L BKA wound site.
Left BKA Wound
- The wound does not appear acutely infected to me. Normal fibrinous material at wound bed with some punctate bleeding / healthy tissue.
- Would observe off of antibiotics for now.
- Note that despite multiple admissions and surgeries for suspected infections - patient has not had a positive culture since 04/13/25 (that was from his foot).
- Most recent I&D of this BKA site revealed only hematoma - no infection or abscess.
- Wound Care eval for local care.
- ID eval for any additional recommendations.
- Monitor fever curve / culture data / etc.
- Follow for any new / worsening symptoms.
Chronic urinary retention
Self catheterizing
Urinalysis indicative of pyuria
Noted elevated white count of 15�14.
Status post single dose of ceftazidime in ED.
Recently treated for fungal UTI.
Follow cultures while monitoring closely off antibiotics
ASCVD
- Stable. Prior h/o CAD with stent, significant PAD with multiple amputations, etc.
- Continue current med regimen including DAPT, statin, anti-anginal medications.
DM-I with Hyperglycemia
- Stable. Continue basal : bolus insulin regimen.
- Follow glucose and cover with SSI as needed.
- A1C = 6.6% on 05/17/25.
CKD III
Urinary Retention
- Stable. Renal function is at / near known baseline.
- Follow bladder scan / straight cath as needed.
- Follow for any changes.
Chronic Iron Deficiency Anemia
- Stable. Hgb is at / near known baseline.
- Continue iron supplementations.
Pseudo Gout
- Stable. No erythema, significant warmth, etc over either knee at present.
Anxiety / Depression
- Stable. Continue duloxetine, mirtazapine.
DVT Prophylaxis: Lovenox
Code Status: Full
Anticipated Discharge: 24 - 48 hours
Subjective/Interval History
-
Date of Service: June 13, 2025
Objective Data
-
Labs:
Laboratory Results
06/12/25 06/13/25
22:08 06:06
WBC 15.8 H 14.9 H
Hgb 9.1 L 8.4 L
Hct 29.2 L 26.1 L
Plt Count 575 H 532 H
Sodium 135 134 L
Potassium 4.6 4.4
Chloride 101 103
Carbon Dioxide 28 27
BUN 20 20
Creatinine 1.2 1.2
Glucose 299 H 68 L
Calcium 8.3 L 8.1 L
Total Bilirubin 0.3
AST 13 L
ALT 12
Alkaline Phosphatase 111
Vital Signs:
Vital Signs
Temp Pulse Resp BP Pulse Ox
98.2 F 88 11 110/66 97
06/13/25 07:18 06/13/25 07:00 06/13/25 07:00 06/13/25 07:00 06/13/25 07:00
Physical Exam
-
General: Well Developed and No Apparent Distress
HEENT: Normocephalic, Atraumatic and Moist Mucous Membranes
Respiratory: Clear to Auscultation
Cardiac: Regular Rhythm and S1/S2; Negative Murmur, Rub or Gallop
GI: Soft, Nontender, Nondistended and Normal Bowel Sounds; Negative Organomegaly
Rectal: Deferred by Provider
Musculoskeletal: No Clubbing, No Cyanosis and No Edema
Skin: Negative Rash
Neuro: Nonfocal/Grossly Intact
--- NOTE | 2025-06-13 10:10 | CON.ID ---
Consultation
-
Date/Time Consultation Requested: June 13, 2025443
Date/Time Consultation Performed: June 13, 2025 0830
Requesting Provider: Dr. Stephen Garcia
Performing Provider: Dr. Mary Kay Ca
Reason for Consultation: ? L BKA infection
Chief Complaint / Past History
Chief Complaint
Left BKA wound with white pus drainage
History of Present Illness
29-year-old male currently incarcerated presented to ED 06/13 due to left BKA karen. He is well-known to Infectious Disease service with history of diabetes mellitus, CAD, Guillain-Potts� syndrome/CIDP, right BKA, multiple hospitalizations for
left foot osteo, recent prolonged hosp stay 03/23 - 05/13 failed multiple left foot amp revisions leading to Left BKA 04/21/25; developed C.. diff diarrhea; developed acute right knee effusion, synovial fluid off abx neg, + CPPD, s/p removal right
femur raza - OR cx neg off abx, abx's dc'd and placed on short course of steroid for pseudogout. Hospitalized 05/14 - 05/23 after a fall on his stump sustaining hematoma which was evacuated by vascular 05/18/25; no infection or abscess noted. He was
discharged with wound VAC in place.
Patient reports the wound VAC was discontinued about a week ago in intermediate. Doing dressing change of left stump on Friday, clear drainage noted on the wound. On Friday, left stump wound noted to have 'white pus' drainage during dressing change. He
was sent to the ER. Patient reports subjective fever and malaise. In ER afebrile, white count 15.8. Blood cultures, urine culture pending. Patient denies trauma to the stump. No cough or shortness of breath. No abdominal pain or diarrhea.
He has chronic bladder discomfort and to see urology as outpatient. The right leg stump wound is healing.
Past History
Additional Past Medical History:
Diabetes mellitus
CAD status post PCI
CHF
hx CKD3
Hypertension
Guillain-Potts� syndrome/CIDP, plasma exchange q 2 months
C. diff (05/02/25)
PAD status post right BKA ([place])
L foot osteo s/p LLE BKA (04/21/25) after failed multiple revisions/TMA
R femoral raza removal 05/06/25; cultures negative (before abx).
Pseudogout (R knee)
Allergy History:
cefepime Allergy (Verified 06/12/25 21:42)
Itching, rash
ibuprofen Allergy (Verified 06/12/25 21:42)
Unknown
meropenem Allergy (Verified 06/12/25 21:42)
Itching, rash
oxycodone Allergy (Verified 06/12/25 21:42)
Unknown
Penicillins Allergy (Verified 06/12/25 21:42)
Unknown
silver Allergy (Verified 06/12/25 21:42)
Hives
silver nitrate Allergy (Verified 06/12/25 21:42)
Hives
sweet potato Allergy (Verified 06/12/25 21:42)
Unknown
tuna oil Allergy (Verified 06/12/25 21:42)
Unknown
turkey Allergy (Verified 06/12/25 21:42)
Unknown
vancomycin Allergy (Verified 06/12/25 21:42)
Itchy Rash
Medications Reviewed: Yes
Current Antibiotics:
none
Social History
Tobacco: Non-Smoker
Alcohol: None
Drug: None
Living: Jail
Family History
Family History: Not Pertinent
Review of Systems
Review of Systems
General: Fever; Negative Change in Appetite
HEENT: Negative Sinus Problems or Headache
Respiratory: Negative Dyspnea or Cough
Gasteroenterology: Negative Nausea, Vomiting or Diarrhea
Genital / Urological: Negative Flank Pain
Endocrine: Weakness and Fatigue
Neurological: Negative Dizziness
All systems: All other systems were reviewed and were negative
Vital Signs
Temp Pulse Resp BP Pulse Ox
98.2 F 88 11 110/66 97
06/13/25 10:00 06/13/25 07:00 06/13/25 07:00 06/13/25 07:00 06/13/25 07:00
Physical Exam
Physical Exam
Constitutional: No Acute Distress
Eyes: No Conjunctival Hemorrhage and Sclera Anicteric
Cardiovascular: Regular Rate and S1/S2
Pulmonary: Clear
Gastrointestinal: Soft, Non Tender, Non Distended and Normal Bowel Sounds
Extremities: Negative Edema
Wound: Other (Wound across anterior BKA: no deep probe or undermining, pink granulation tissue with light yellow fibrinous slough. )
Neurological: AO x 3
Lab / Diagnostic Study Results
06/13/25 06:06
06/13/25 06:06
Abs Immat Gran (auto) 0.2 10^3/uL (0-0.05) H 06/12/25 22:08
Absolute Neuts (auto) 12.4 10^3/uL (1.4-6.5) H 06/12/25 22:08
Absolute Lymphs (auto) 2.1 10^3/uL (1.2-3.4) 06/12/25 22:08
Absolute Monos (auto) 0.9 10^3/uL (0.1-0.6) H 06/12/25 22:08
Absolute Basos (auto) 0.1 10^3/uL (0-0.2) 06/12/25 22:08
Immature Gran % 1.1 % (0-0.5) H 06/12/25 22:08
Neutrophils % 78.3 % (42.2-75.2) H 06/12/25 22:08
Lymphocytes % 13.4 % (20.5-51.1) L 06/12/25 22:08
Monocytes % 5.6 % (1.7-9.3) 06/12/25 22:08
Eosinophils % 1.2 % (0-6) 06/12/25 22:08
Basophils % 0.4 % (0-2) 06/12/25 22:08
Lactic Acid Cancelled 06/13/25 02:00
Ur Squamous Epith Cells >30 /LPF (Few) 06/12/25 23:59
Microbiology Results
Micro:
06/12/25 23:59 Urine Culture - Pending
Urine
06/12/25 22:57 Blood Culture - Pending
Blood/Venous
06/12/25 22:24 Wound Culture - Pending
Leg - Left Gram Stain - Pending
06/12/25 22:24 Blood Culture - Pending
Blood/Venous
Assessment / Plan
# Left BKA wound
- Doesn't appear infected. Expected to have fibrinous slough
- Surface wound swab can be contaminants, not infection.
- No need for abx.
- Local wound care.
# Leukocytosis
- Suspect reactive.
- Trend wbc.
# Chronic bladder discomfort
# Neurogenic bladder - self cath.
- UA with >30sq cells = contaminated specimen
- Follow-up with Urology outpaient
# Conditions prior to admission:
Diabetes mellitus
CAD status post PCI
CHF
hx CKD3
Hypertension
Guillain-Potts� syndrome/CIDP, plasma exchange q 2 months
C. diff (05/02/25)
PAD status post right BKA ([place])
L foot osteo s/p LLE BKA (04/21/25) after failed multiple revisions/TMA
R femoral raza removal 05/06/25; cultures negative (before abx).
Pseudogout (R knee)
Care Review
Plan reviewed with: Physician (Dr. Young)
[2025-06-13 12:22] LABS: Glucose - Point of Care 211 mg/dl (70-99)
[2025-06-13] MEDS: NOVOLOG FLEXPEN-LOW RESISTANCE 2 UNITS SC (13:29)
--- NOTE | 2025-06-13 16:00 | WOUNDNOTE ---
R THIGH (POSTERIOR LATERAL)
[2025-06-13 16:43] LABS: Glucose - Point of Care 293 mg/dl (70-99)
--- NOTE | 2025-06-13 17:00 | WOUNDNOTE ---
[facility] RN note: Patient seen around 1600. Patient admitted with L BKA wound. Patient admitted from [facility].
See H&P for complete history.
PMH: IDDM, ASCVD, R BKA, L BKA 04/21/25. R femoral nail removal 05/06/25, 05/18/25 L BKA I+D hematoma evacuation with wound vac. Vac was discontinued at some point at [facility]. HTN, CHF, Guillain [place].
Wound Location and type/assessment: Patient admitted with: L BKA full thickness surgical wound, pink with yellow fibrin. Moderate yellow serous drainage. Skin diffusely mild red mostly proximal to L BKA wound. Perhaps skin irritated from previous
vac drape. R BKA granular healing wound suspect was originally to subcutaneous layer. Sacrum blanchable red. R lateral posterior high with several small dermal pink openings suspect from patient picking. L medial wrist with linear shaped red skin
from prisoner cuff. ID following. Patient stated vascular service visited.
Appetite: good.
Pressure redistribution devices in place: ED stretcher. Patient can turn self on stretcher.
Plan: L BKA and R BKA dressings changed. Silicone border foam applied to sacrum and R posterior lateral thigh open areas. Protective silicone border foam applied to L medial wrist. Prisoner guard loosened L wrist cuff. Air chair cushion placed
under patient's sacral/buttocks in ED stretcher. Instructed patient pressure injury prevention measures.
Confirmed orders with Dr. Young and updated ED RN Susana.
Care plan to be updated and will follow as needed.
Recommend follow up with vascular and at wound care center upon discharge.
[2025-06-13] MEDS: LOVENOX 40 MG SC (18:40)
[2025-06-13] MEDS: NOVOLIN R SC ×2 (18:40→18:45)
[2025-06-13] MEDS: NovoLIN R Flexpen 4 UNITS SC (18:45)
[2025-06-13] MEDS: NOVOLOG FLEXPEN-LOW RESISTANCE 3 UNITS SC (18:46)
[2025-06-13 21:20] LABS: Glucose - Point of Care 288 mg/dl (70-99)
[2025-06-13] MEDS: LANTUS 0.28 UNITS SC (22:26)
[2025-06-13] MEDS: LIPITOR 80 MG PO (22:26)
[2025-06-13] MEDS: REMERON 30 MG PO (22:26)
[2025-06-13] MEDS: FLUSH (NSS) 1 FLUSH IV (22:31)
[2025-06-14] MEDS: FLUSH (NSS) 1 FLUSH IV (05:29)
[2025-06-14] MEDS: DILAUDID 0.5 MG IV ×4 (05:30→19:43)
--- NOTE | 2025-06-14 06:48 | PTCARENOTE ---
RN bladder scanned patient and got [phone]. RN straight cath'd patient, extracted 800
[2025-06-14 07:54] LABS: Glucose - Point of Care 318 mg/dl (70-99)
[2025-06-14 08:16] VITALS: BP 132/72
[2025-06-14] MEDS: NEURONTIN 300 MG PO ×3 (09:01→21:59)
[2025-06-14] MEDS: CYMBALTA DELAYED RELEASE 30 MG PO (09:01)
[2025-06-14] MEDS: IMDUR (EXTENDED RELEASE) 60 MG PO (09:01)
[2025-06-14] MEDS: COREG 25 MG PO ×2 (09:01→19:43)
[2025-06-14] MEDS: ASPIR LOW (ENTERIC COATED) 81 MG PO (09:01)
[2025-06-14] MEDS: NORVASC 5 MG PO (09:01)
[2025-06-14] MEDS: RANEXA EXTENDED RELEASE 1000 MG PO ×2 (09:01→19:44)
[2025-06-14] MEDS: NovoLIN R Flexpen 4 UNITS SC ×3 (09:02→17:42)
[2025-06-14] MEDS: FEOSOL 325 MG PO ×2 (09:02→19:43)
[2025-06-14] MEDS: DEMADEX 10 MG PO (09:02)
[2025-06-14] MEDS: VISBIOME 1 CAP PO ×2 (09:02→19:44)
[2025-06-14] MEDS: NOVOLOG FLEXPEN-LOW RESISTANCE 4 UNITS SC ×3 (09:03→17:42)
--- NOTE | 2025-06-14 09:27 | W.PN.ID1 ---
Date of Service
Date of Service: June 14, 2025
Today's Communication
Start empiric ceftaz/avibactam.
Assessment / Plan
# Chronic bladder discomfort
# Neurogenic bladder - self cath.
# Leukocytosis
# Allergy to PCN, cefepime, meropenem, vancomycin
- Ucx GNR: unclear colonization vs true UTI
- hx MDRO in urine
- Start empiric ceftaz/avibactam 2/5 g IV q8 pending cx data.
- trend wbc
- Follow-up with Urology outpatient
# Left BKA wound
- Doesn't appear infected. Expected to have fibrinous slough
- Surface wound swab can be contaminants, not infection.
- No need for abx.
- Local wound care.
# Conditions prior to admission:
Diabetes mellitus
CAD status post PCI
CHF
hx CKD3
Hypertension
Guillain-Potts� syndrome/CIDP, plasma exchange q 2 months
C. diff (05/02/25)
PAD status post right BKA ([place])
L foot osteo s/p LLE BKA (04/21/25) after failed multiple revisions/TMA
R femoral raza removal 05/06/25; cultures negative (before abx).
Pseudogout (R knee)
Chief Complaint
-: Other (BKA wound)
Subjective / Review of Systems
c/o L BKA wound pain.
c/o (chronic) bladder discomfort
Vital Signs / Physical Exam
Vital Signs
Vital Signs
Temp Pulse Resp BP Pulse Ox
97.7 F 83 16 132/72 96
06/14/25 08:16 06/14/25 08:16 06/14/25 08:16 06/14/25 08:16 06/14/25 08:16
Physical Exam
Constitutional: No Acute Distress
Gastrointestinal: Soft, Non Tender and Non Distended
Genito-Urinary: Negative CVA Tenderness
Neurological: AO x 3
Objective Data
Lab Data
Lab Results
06/13/25 06:06
06/13/25 06:06
Lactic Acid Cancelled 06/13/25 02:00
Total Bilirubin 0.3 mg/dl (0.2-1.3) 06/12/25 22:08
AST 13 U/L (17-59) L 06/12/25 22:08
ALT 12 U/L (0-50) 06/12/25 22:08
Alkaline Phosphatase 111 U/L (38-126) 06/12/25 22:08
Most recent labs reviewed.
Micro Results:
06/12/25 22:24 Wound Culture - Preliminary
Leg - Left Gram Stain - Preliminary
06/12/25 23:59 Urine Culture - Preliminary
Urine Gram negative bacilli
06/12/25 22:57 Blood Culture - Preliminary
Blood/Venous No Growth in 24 hours- Final report to follow
06/12/25 22:24 Blood Culture - Preliminary
Blood/Venous No Growth in 24 hours- Final report to follow
[2025-06-14] MEDS: FIRVANQ 125 MG PO (11:46)
[2025-06-14 11:53] LABS: Glucose - Point of Care 307 mg/dl (70-99)
[2025-06-14] MEDS: NORCO 7.5/325 1 TABLET PO ×2 (13:12→22:07)
[2025-06-14 15:03] VITALS: BP 116/69
--- NOTE | 2025-06-14 15:24 | W.PN.HOSP.TC ---
Today's Communication/Plan
-
Empiric antibiotics pending final cultures
Wound care
Assessment / Plan
Assessment / Plan
A/P: Patient is a 29y M with PMH significant for multiple recent LLE surgeries and recent wound vac who presents to ED for evaluation of L BKA wound site.
Left BKA Wound
- The wound does not appear acutely infected to me. Normal fibrinous material at wound bed with some punctate bleeding / healthy tissue.
- Would observe off of antibiotics for now.
- Note that despite multiple admissions and surgeries for suspected infections - patient has not had a positive culture since 04/13/25 (that was from his foot).
- Most recent I&D of this BKA site revealed only hematoma - no infection or abscess.
- Wound Care eval for local care.
- Discussed with ID and vascular surgery.
- Wound looks clean with no evidence of infection.
- Continue daily wound care
Chronic urinary retention
Self catheterizing
Urinalysis indicative of pyuria
Noted elevated white count of 15�14.
Status post single dose of ceftazidime in ED.
Recently treated for fungal UTI.
Repeated urine culture showing gram-negative bacteria
Empiric antibiotics initiated by ID pending final cultures
ASCVD
- Stable. Prior h/o CAD with stent, significant PAD with multiple amputations, etc.
- Continue current med regimen including DAPT, statin, anti-anginal medications.
DM-I with Hyperglycemia
- Stable. Continue basal : bolus insulin regimen.
- Follow glucose and cover with SSI as needed.
- A1C = 6.6% on 05/17/25.
CKD III
Urinary Retention
- Stable. Renal function is at / near known baseline.
- Follow bladder scan / straight cath as needed.
- Follow for any changes.
Chronic Iron Deficiency Anemia
- Stable. Hgb is at / near known baseline.
- Continue iron supplementations.
Pseudo Gout
- Stable. No erythema, significant warmth, etc over either knee at present.
Anxiety / Depression
- Stable. Continue duloxetine, mirtazapine.
DVT Prophylaxis: Lovenox
Code Status: Full
Anticipated Discharge: 24 - 48 hours
Subjective/Interval History
-
Date of Service: June 14, 2025
Objective Data
-
Vital Signs:
Vital Signs
Temp Pulse Resp BP Pulse Ox
97.3 F 88 17 116/69 97
06/14/25 15:03 06/14/25 15:03 06/14/25 15:03 06/14/25 15:03 06/14/25 15:03
I&O
06/13/25 06/14/25 06/15/25
06:59 06:59 06:59
Intake Total 1440 / 1440
Output Total 800 / 800 700 / 700
Balance 640 / 640 -700 / -700
Physical Exam
-
General: Well Developed and No Apparent Distress
HEENT: Normocephalic, Atraumatic and Moist Mucous Membranes
Respiratory: Clear to Auscultation
Cardiac: Regular Rhythm and S1/S2; Negative Murmur, Rub or Gallop
GI: Soft, Nontender, Nondistended and Normal Bowel Sounds; Negative Organomegaly
Rectal: Deferred by Provider
Musculoskeletal: No Clubbing, No Cyanosis and No Edema
Skin: Negative Rash
Neuro: Nonfocal/Grossly Intact
--- NOTE | 2025-06-14 16:52 | CM ---
Patient admitted from [facility] with anemia, wound infection and hyperglycemia; currently in custody of [facility] [employer].
Pt is receiving wound care and vancomycin pending culture results.
Plan: CM will follow to provide medical updates to [facility] as related to patient's needs when returning to [facility].
[facility] Report: [phone]
[facility]
[2025-06-14 17:26] LABS: Glucose - Point of Care 361 mg/dl (70-99)
[2025-06-14] MEDS: LOVENOX 40 MG SC (17:40)
[2025-06-14 19:37] VITALS: BP 139/87
[2025-06-14 21:18] LABS: Glucose - Point of Care 337 mg/dl (70-99)
[2025-06-14] MEDS: LANTUS 0.24 UNITS SC (21:59)
[2025-06-14] MEDS: LIPITOR 80 MG PO (21:59)
[2025-06-14] MEDS: REMERON 30 MG PO (21:59)
[2025-06-14 23:00] VITALS: BP 131/75
[2025-06-15] MEDS: DILAUDID 0.5 MG IV ×4 (00:36→21:47)
[2025-06-15 05:33] VITALS: BMI 30.4
[2025-06-15] MEDS: DEMADEX 10 MG PO (07:55)
[2025-06-15] MEDS: CYMBALTA DELAYED RELEASE 30 MG PO (07:55)
[2025-06-15] MEDS: FIRVANQ 125 MG PO (07:55)
[2025-06-15] MEDS: RANEXA EXTENDED RELEASE 1000 MG PO ×2 (07:55→20:20)
[2025-06-15] MEDS: ASPIR LOW (ENTERIC COATED) 81 MG PO (07:55)
[2025-06-15 07:56] LABS: Glucose - Point of Care 375 mg/dl (70-99)
[2025-06-15] MEDS: IMDUR (EXTENDED RELEASE) 60 MG PO (07:56)
[2025-06-15] MEDS: VISBIOME 1 CAP PO ×2 (07:57→20:20)
[2025-06-15] MEDS: FEOSOL 325 MG PO ×2 (07:57→20:20)
[2025-06-15] MEDS: NORVASC 5 MG PO (07:57)
[2025-06-15] MEDS: NEURONTIN 300 MG PO ×3 (07:57→21:47)
[2025-06-15] MEDS: COREG 25 MG PO ×2 (07:57→20:20)
[2025-06-15 08:01] VITALS: BP 142/84
[2025-06-15] MEDS: NORCO 7.5/325 1 TABLET PO ×3 (08:10→20:19)
[2025-06-15] MEDS: NovoLIN R Flexpen 4 UNITS SC ×2 (08:54→12:19)
[2025-06-15] MEDS: NOVOLOG FLEXPEN-MODERATE RESISTANCE 9 UNITS SC (08:55)
[2025-06-15] MEDS: LANTUS 0.24 UNITS SC (08:57)
[2025-06-15 09:05] LABS: Hematocrit 27.8 % (39.0-52.0); Hemoglobin 8.6 g/dL (13.0-18.0); Mean Corp Hgb Conc. 30.9 g/dL (33.0-37.0); Mean Corpuscular Volume 88.8 fL (80.0-94.0); Nucleated Red Blood Cells % 0 % (-); Platelet Count 515 10^3/uL (130-400); Red Cell Dist. Width 15.9 % (11.5-14.5)
[2025-06-15 09:23] LABS: Blood Urea Nitrogen 22 mg/dl (9-20); Calcium 8.5 mg/dl (8.4-10.2); Carbon Dioxide 29 mmol/L (22-30); Chloride 103 mmol/L (98-107); Estimated Creatinine Clearance 122 ml/min; Glucose 371 mg/dl (70-99); Potassium 5.1 mmol/L (3.5-5.1); Sodium 134 mmol/L (135-145); eGFR > 60.00
--- NOTE | 2025-06-15 10:42 | CM ---
CM continues to follow to provide medical updates to [facility] as related to patient's needs when returning to [facility].
[facility] Report: [phone]
[facility]
[2025-06-15 11:34] LABS: Glucose - Point of Care 342 mg/dl (70-99)
[2025-06-15] MEDS: NOVOLOG FLEXPEN-MODERATE RESISTANCE 7 UNITS SC (12:19)
--- NOTE | 2025-06-15 13:05 | W.PN.ID1 ---
Date of Service
Date of Service: June 15, 2025
Today's Communication
Transition to po abx.
See below.
Assessment / Plan
# Chronic bladder discomfort
# Neurogenic bladder - self cath.
# Leukocytosis resolved
# Allergy to PCN, cefepime, meropenem, vancomycin
- Ucx: Klebsiella pneumoniae
- DC ceftaz/avibactam 2/5 g IV q8
-Transition to doxycycline 100mg po bid x 7 days till 06/22/25
- Again, doubt UTI - pt still symptomatic on appropriate abx.
- Follow-up with Urology outpatient
# Hx of C. diff
- Continue prophylactic Vancomycin 125mg po daily through 06/27/25.
# Left BKA wound
- Doesn't appear infected. Expected to have fibrinous slough
- Surface wound swab can be contaminants, not infection.
- No need for abx.
- Local wound care.
# Conditions prior to admission:
Diabetes mellitus
CAD status post PCI
CHF
hx CKD3
Hypertension
Guillain-Potts� syndrome/CIDP, plasma exchange q 2 months
C. diff (05/02/25)
PAD status post right BKA ([place])
L foot osteo s/p LLE BKA (04/21/25) after failed multiple revisions/TMA
R femoral raza removal 05/06/25; cultures negative (before abx).
Pseudogout (R knee)
Chief Complaint
-: Other (BKA wound)
Subjective / Review of Systems
Still with urine sxs - worse.
No diarrhea.
Vital Signs / Physical Exam
Vital Signs
Vital Signs
Temp Pulse Resp BP Pulse Ox
98 F 81 14 142/84 99
06/15/25 08:01 06/15/25 08:01 06/15/25 08:01 06/15/25 08:01 06/15/25 08:01
Physical Exam
Constitutional: No Acute Distress
Pulmonary: Clear
Gastrointestinal: Soft, Non Tender and Non Distended
Genito-Urinary: Negative CVA Tenderness
Extremities: Negative Edema
Neurological: AO x 3
Objective Data
Lab Data
Lab Results
06/15/25 08:48
06/15/25 08:48
Estimated Creat Clear 122 ml/min 06/15/25 08:48
Lactic Acid Cancelled 06/13/25 02:00
Total Bilirubin 0.3 mg/dl (0.2-1.3) 06/12/25 22:08
AST 13 U/L (17-59) L 06/12/25 22:08
ALT 12 U/L (0-50) 06/12/25 22:08
Alkaline Phosphatase 111 U/L (38-126) 06/12/25 22:08
Most recent labs reviewed.
Micro Results:
06/12/25 22:24 Wound Culture - Preliminary
Leg - Left Staphylococcus aureus
Gram negative bacilli
Gram Stain - Preliminary
06/12/25 23:59 Urine Culture - Final
Urine Klebsiella pneumoniae
06/12/25 22:57 Blood Culture - Preliminary
Blood/Venous No Growth in 48 hours- Final report to follow
06/12/25 22:24 Blood Culture - Preliminary
Blood/Venous No Growth in 48 hours- Final report to follow
Care Review
Plan reviewed with: Physician (Dr. Young)
--- NOTE | 2025-06-15 14:29 | W.PN.HOSP.TC ---
Today's Communication/Plan
-
Transition to oral doxycycline and observe
Adjust insulin dose
Wound care
Assessment / Plan
Assessment / Plan
A/P: Patient is a 29y M with PMH significant for multiple recent LLE surgeries and recent wound vac who presents to ED for evaluation of L BKA wound site.
Left BKA Wound
- The wound does not appear acutely infected to me. Normal fibrinous material at wound bed with some punctate bleeding / healthy tissue.
- Would observe off of antibiotics for now.
- Note that despite multiple admissions and surgeries for suspected infections - patient has not had a positive culture since 04/13/25 (that was from his foot).
- Most recent I&D of this BKA site revealed only hematoma - no infection or abscess.
- Wound Care eval for local care.
- Discussed with ID and vascular surgery.
- Wound looks clean with no evidence of infection.
- Continue daily wound care
Chronic urinary retention
Self catheterizing
Urinalysis indicative of pyuria with probable UTI
Noted elevated white count of 15�14.
Initiated on empiric IV antibiotics.
Urine culture with sensitive Klebsiella
Transition to oral doxycycline and observe over the next 24 hours
ASCVD
- Stable. Prior h/o CAD with stent, significant PAD with multiple amputations, etc.
- Continue current med regimen including DAPT, statin, anti-anginal medications.
DM-I with Hyperglycemia
- Stable. Continue basal : bolus insulin regimen.
- Follow glucose and cover with SSI as needed.
- A1C = 6.6% on 05/17/25.
- Increase insulin: Lantus to 26 units twice daily, aspart 6 units AC
CKD III
Urinary Retention
- Stable. Renal function is at / near known baseline.
- Follow bladder scan / straight cath as needed.
- Follow for any changes.
Chronic Iron Deficiency Anemia
- Stable. Hgb is at / near known baseline.
- Continue iron supplementations.
Pseudo Gout
- Stable. No erythema, significant warmth, etc over either knee at present.
Anxiety / Depression
- Stable. Continue duloxetine, mirtazapine.
DVT Prophylaxis: Lovenox
Code Status: Full
Anticipated Discharge: Within 24 hours
Subjective/Interval History
-
Date of Service: June 15, 2025
Objective Data
-
Labs:
Laboratory Results
06/15/25
08:48
WBC 7.5
Hgb 8.6 L
Hct 27.8 L
Plt Count 515 H
Sodium 134 L
Potassium 5.1
Chloride 103
Carbon Dioxide 29
BUN 22 H
Creatinine 1.1
Glucose 371 H
Calcium 8.5
Vital Signs:
Vital Signs
Temp Pulse Resp BP Pulse Ox
98 F 81 14 142/84 99
06/15/25 08:01 06/15/25 08:01 06/15/25 08:01 06/15/25 08:01 06/15/25 08:01
I&O
06/14/25 06/15/25 06/16/25
06:59 06:59 06:59
Intake Total 1440 / 1440 2880 / 2880
Output Total 800 / 800 1300 / 1300
Balance 640 / 640 1580 / 1580
Physical Exam
-
General: Well Developed and No Apparent Distress
HEENT: Normocephalic, Atraumatic and Moist Mucous Membranes
Respiratory: Clear to Auscultation
Cardiac: Regular Rhythm and S1/S2; Negative Murmur, Rub or Gallop
GI: Soft, Nontender, Nondistended and Normal Bowel Sounds; Negative Organomegaly
Rectal: Deferred by Provider
Musculoskeletal: No Clubbing, No Cyanosis and No Edema
Skin: Negative Rash
Neuro: Nonfocal/Grossly Intact
[2025-06-15 15:18] VITALS: BP 108/60
[2025-06-15 16:35] LABS: Glucose - Point of Care 247 mg/dl (70-99)
[2025-06-15] MEDS: NovoLIN R Flexpen 6 UNITS SC (17:48)
[2025-06-15] MEDS: NOVOLOG FLEXPEN-MODERATE RESISTANCE 3 UNITS SC (17:49)
[2025-06-15] MEDS: LOVENOX 40 MG SC (17:49)
[2025-06-15] MEDS: VIBRAMYCIN 100 MG PO (20:20)
[2025-06-15 21:42] LABS: Glucose - Point of Care 219 mg/dl (70-99)
[2025-06-15] MEDS: LANTUS 0.26 UNITS SC (21:47)
[2025-06-15] MEDS: REMERON 30 MG PO (21:47)
[2025-06-15] MEDS: LIPITOR 80 MG PO (21:47)
[2025-06-15 23:10] VITALS: BP 133/75
[2025-06-16 06:00] VITALS: BMI 29.9
[2025-06-16 07:35] VITALS: BP 146/85
[2025-06-16] MEDS: FIRVANQ 125 MG PO (07:36)
[2025-06-16] MEDS: ASPIR LOW (ENTERIC COATED) 81 MG PO (07:36)
[2025-06-16] MEDS: RANEXA EXTENDED RELEASE 1000 MG PO (07:36)
[2025-06-16] MEDS: NEURONTIN 300 MG PO ×2 (07:36→15:22)
[2025-06-16] MEDS: FEOSOL 325 MG PO (07:37)
[2025-06-16] MEDS: VISBIOME 1 CAP PO (07:37)
[2025-06-16] MEDS: CYMBALTA DELAYED RELEASE 30 MG PO (07:37)
[2025-06-16] MEDS: VIBRAMYCIN 100 MG PO (07:37)
[2025-06-16] MEDS: NORVASC 5 MG PO (07:37)
[2025-06-16] MEDS: COREG 25 MG PO (07:38)
[2025-06-16] MEDS: IMDUR (EXTENDED RELEASE) 60 MG PO (07:38)
[2025-06-16] MEDS: DEMADEX 10 MG PO (07:38)
[2025-06-16] MEDS: NORCO 7.5/325 1 TABLET PO (07:44)
[2025-06-16 08:06] LABS: Glucose - Point of Care 326 mg/dl (70-99)
[2025-06-16] MEDS: NovoLIN R Flexpen 6 UNITS SC ×2 (09:52→12:49)
[2025-06-16] MEDS: NOVOLOG FLEXPEN-MODERATE RESISTANCE 7 UNITS SC (09:53)
[2025-06-16] MEDS: LANTUS 0.26 UNITS SC (09:55)
[2025-06-16] MEDS: DILAUDID 0.5 MG IV ×2 (10:03→14:03)
--- NOTE | 2025-06-16 11:07 | W.DS.TRANS ---
DC Summary - [employer]
-
Discharge Instructions:
Discharge Diagnosis/Procedures Left BKA wound
Probable UTI
Diet Diabetic, Carb Controlled
Instructions:
Stand-Alone Forms:
Changes to Home Medications: Yes
Discharge Medications:
DC Medications w/original date entered in [employer]
aspirin 81 mg tablet,delayed release 81 mg PO DAILY Blood Clot Prevention/Tx 02/02/25
atorvastatin 80 mg tablet 80 mg PO HS High Cholesterol 02/02/25
carvedilol 25 mg tablet 25 mg PO BID Heart Failure 02/02/25
isosorbide mononitrate 60 mg tablet,extended release 24 hr 60 mg PO DAILY Heart Disease/Condition 02/02/25
ranolazine 1,000 mg tablet,extended release,12 hr 1,000 mg PO BID Heart Disease/Condition 02/02/25
duloxetine 30 mg capsule,delayed release 30 mg PO DAILY Mental Health/Anxiety 02/07/25
gabapentin 300 mg capsule 300 mg PO TID NEUROPATHIC PAIN 02/07/25
mirtazapine 30 mg tablet 30 mg PO HS Mental Health/Anxiety 03/23/25
ferrous sulfate 325 mg (65 mg iron) tablet (FeroSul) 325 mg PO BID anemia #10 tabs 04/30/25
amlodipine 5 mg tablet 5 mg PO DAILY Blood Clot Prevention/Tx 05/16/25
insulin regular human 100 unit/mL injection solution (Humulin R Regular U-100 Insulin) 4 unit SC QID Diabetes 05/16/25
Saccharomyces boulardii 250 mg capsule (Florastor) 250 mg PO BID 06/12/25
docusate sodium 100 mg capsule 100 mg PO BIDPRN PRN Constipation 06/12/25
torsemide 10 mg tablet 10 mg PO DAILY 06/12/25
doxycycline hyclate 100 mg capsule 100 mg PO Q12 #12 caps 06/16/25
insulin glargine 100 unit/mL (3 mL) subcutaneous pen 28 unit (0.28 mL) SC BID #0 mL 06/16/25
vancomycin 50 mg/mL oral solution 125 mg (2.5 mL) PO DAILY #11 mL 06/16/25
Home Medication Changes
Antibiotics as outlined
Pending Results: No
--- NOTE | 2025-06-16 11:23 | WOUNDNOTE ---
[facility] RN Note: Patient's L BKA stump fish cleaner machine tender, moderate guzman yellow drainage. No surrounding erythema. R BKA stump wound smaller, pink. Lower sacral crease mild MASD. Patient turns independently. He declined an air overlay mattress. He stated he likes
using the air chair cushion under his buttocks. Air chair cushion to be placed under patient's sacral/buttocks by BRYN Rey after wound care completed. Will sign off. Call if needed.
[2025-06-16 12:12] LABS: Glucose - Point of Care 262 mg/dl (70-99)
[2025-06-16] MEDS: NOVOLOG FLEXPEN-MODERATE RESISTANCE 5 UNITS SC (12:49)
--- NOTE | 2025-06-16 14:00 | CM ---
Patient is cleared for discharge back to [facility] today.
[facility] Report: [phone]
[facility]
[2025-06-16 14:59] VITALS: BP 127/71
== END 2025-06-16 15:37 ==
LOC: 3 WEST ACU 00:35
PROVIDERS: ADMITTING PHYSICIAN Hospitalist; ATTENDING PHYSICIAN Internal Medicine; EMERGENCY PHYSICIAN Emergency Medicine; OTHER PHYSICIAN Internal Medicine Infectious Disease
DX: M79.605 Pain in left leg (principal); R50.9 Fever, unspecified; N18.30 Chronic kidney disease, stage 3 unspecified; E10.22 Type 1 diabetes mellitus with diabetic chronic kidney disease; G61.81 Chronic inflammatory demyelinating polyneuritis; I25.10 Atherosclerotic heart disease of native coronary artery without angina pectoris; K21.9 Gastro-esophageal reflux disease without esophagitis; N31.9 Neuromuscular dysfunction of bladder, unspecified; E78.00 Pure hypercholesterolemia, unspecified; E10.65 Type 1 diabetes mellitus with hyperglycemia; D50.9 Iron deficiency anemia, unspecified; G61.0 Guillain-Barre syndrome; I13.0 Hypertensive heart and chronic kidney disease with heart failure and stage 1 through stage 4 chronic kidney disease, or unspecified chronic kidney disease; F41.9 Anxiety disorder, unspecified; B96.1 Klebsiella pneumoniae [K. pneumoniae] as the cause of diseases classified elsewhere; R82.81 Pyuria; F32.A Depression, unspecified; R33.9 Retention of urine, unspecified; M11.261 Other chondrocalcinosis, right knee; I25.2 Old myocardial infarction; Z89.511 Acquired absence of right leg below knee; Z89.512 Acquired absence of left leg below knee; Z79.4 Long term (current) use of insulin; Z79.899 Other long term (current) drug therapy; Z95.5 Presence of coronary angioplasty implant and graft; Z82.49 Family history of ischemic heart disease and other diseases of the circulatory system; Z83.2 Family history of diseases of the blood and blood-forming organs and certain disorders involving the immune mechanism; Z83.3 Family history of diabetes mellitus; Z88.1 Allergy status to other antibiotic agents; Z88.5 Allergy status to narcotic agent; Z88.0 Allergy status to penicillin; Z91.018 Allergy to other foods; Z91.048 Other nonmedicinal substance allergy status; Z87.440 Personal history of urinary (tract) infections; Z86.19 Personal history of other infectious and parasitic diseases
CPT/HCPCS: 80048; 80053; 81003; 81015; 82962; 83605; 85025; 85027; 87040; 87070; 87077; 87086; 87147; 87186; 87205; 93005; 96374; 99285; G0378; J0714

== ENCOUNTER 2025-06-18 19:36 | Emergency (ER) | payer OTHER, SELFPAY ==
[2025-06-18 19:38] VITALS: BP 160/101
[2025-06-18 19:40] VITALS: BP 160/101
--- NOTE | 2025-06-18 19:50 | EDRN ---
patient has b/l below the knee amputations and states he was 6'0 previous to the amputation, he is unsure his current height post amputation.
[2025-06-18 19:58] LABS: Hematocrit 29.8 % (39.0-52.0); Hemoglobin 9.5 g/dL (13.0-18.0); Mean Corp Hgb Conc. 31.9 g/dL (33.0-37.0); Mean Corpuscular Volume 86.6 fL (80.0-94.0); Nucleated Red Blood Cells % 0 % (-); Platelet Count 592 10^3/uL (130-400); Red Cell Dist. Width 16.8 % (11.5-14.5)
[2025-06-18 20:00] VITALS: BP 163/90
--- NOTE | 2025-06-18 20:32 | ED.GENMED ---
History of Present Illness
General
Chief Complaint: Chest Pain
Source: patient
Exam Limitations: none
Time Seen by Provider: 06/18/25 20:07
Nursing documentation reviewed up to this point in time: agreed with
History of Present Illness
History of Present Illness:
Patient is a 29-year-old male presents from [facility] facility with history of bilateral BKA, CAD insulin-dependent diabetes, obesity chronic kidney disease ,chronic hyperlipidemia, C. difficile, sent here to the ER for evaluation. Patient
reports he has had chest pain for the past 6 days .he tells he had chest pain while he was admitted in the hospital. He was admitted from June 13 to June 16(just discharged 2 days ago )for concerns for left BKA wound infection. At that time
he was seen by infectious disease and vascular surgery .it was felt that the wound was not infected.
Past History
Past History
ED Past Medical History: CHF, HTN, IDDM, [place], Other (BKA right, Two toe amputation left, left heel debridement) and Other ([facility] [place], Chronic Inflammatory Demylinating Polyneuropathy)
ED Past Surgical History: Orthopedic (Right BKA, left two toe amputation, left heel debridement)
Social History
Tobacco: Non-smoker
Drug: None
Living: [facility]
Phy Exam
General Physical Exam
General Presentation: no apparent distress
General age: appears stated age
General Skin: warm and dry
General Habitus: normal
General Mental: alert
General Hydration: appears well hydrated
Cardiovascular Exam
Cardiovascular Exam: regular rate/rhythm, no murmur and normal peripheral pulses
Pulmonary Exam
Pulmonary Exam: lungs clear and no respiratory distress
Neurological Exam
Neurological Exam: alert
Musculoskeletal Exam
Musculoskeletal Exam: other (Left BKA with healing wound no active bleeding no evidence of infection in drainage )
Skin Exam
Skin Exam: normal color and warm/dry
Psychiatric Exam
Psychiatric Exam: normal mood/affect
Scores
Heart Score for Chest Pain Patients
STEMI patient?: Not applicable
Course
Orders/Labs/Results
Orders:
Orders
06/18/25 19:44
Electrocardiogram (*1) Urgent
Reason for Study: Chest Pain
EKG- Treatment ONCE
06/18/25 19:48
Complete Blood Count/With Diff Urgent
06/18/25 21:19
Comprehensive Metabolic Panel Urgent
Troponin I Urgent
Abnormal Lab Results
06/18/25 06/18/25
19:48 21:19
RBC 3.44 L 10^6/uL
(4.70-6.10)
Hgb 9.5 L g/dL
(13.0-18.0)
Hct 29.8 L %
(39.0-52.0)
MCHC 31.9 L g/dL
(33.0-37.0)
RDW 16.8 H %
(11.5-14.5)
Plt Count 592 H 10^3/uL
(130-400)
Abs Immat Gran (auto) 0.2 H 10^3/uL
(0-0.05)
Absolute Monos (auto) 0.8 H 10^3/uL
(0.1-0.6)
Immature Gran % 1.9 H %
(0-0.5)
BUN 26 H mg/dl
(9-20)
Glucose 355 H mg/dl
(70-99)
AST 16 L U/L
(17-59)
Alkaline Phosphatase 133 H U/L
(38-126)
Albumin 3.4 L g/dl
(3.5-5.0)
06/18/25 19:48
06/18/25 21:19
Vital Signs
Initial and Last Documented VS:
Initial Vital Signs
Temp Pulse Resp BP Pulse Ox
98.2 F 100 18 160/101 100
06/18/25 19:38 06/18/25 19:38 06/18/25 19:38 06/18/25 19:38 06/18/25 19:38
Last Documented Vital Signs
Temp Pulse Resp BP Pulse Ox
98.2 F 96 11 158/91 98
06/18/25 19:38 06/18/25 21:30 06/18/25 19:45 06/18/25 21:00 06/18/25 21:30
Grout Machine Tender consulted with Physician
Grout Machine Tender consulted with physician?: Yes
Name of Physician Consulted: brando
MDM/Problems Addressed
MDM/Problems Addressed:
As documented patient is a 29 yr old male with past medical history as documented above presents to the ER for 6 days of chest pain. Patient was just discharged 2 days ago reports he still had pain while he was in the hospital.
Troponin negative. No acute findings on EKG. He has no acute distress.
he is a chronic diabetic ; his blood sugar is elevated however he has normal renal function normal bicarb. Will give a dose of subcu insulin here. In Regards to his left wound ,this wound was felt to not be infected while he was here 2 days
ago. he was eval by vascular surgery and infectious disease. Wound today does not appear infected dried blood no dehiscence no drainage. Stable to be discharged back
To correctional facility. Case reviewed with ED physician.
Chronic conditions affecting care:
CAD, IDDM bilateral BKA
*Pulse Oximetry
SaO2: 98
Oxygen Mode of Delivery: Room air
Patient hypoxic: no
*EKG
Interpretation: normal
Rate: normal
Ischemia: no ischemia
*Critical Care Note
Total Time (30-74mins, 75-104mins- exclusive of procedures): Not Applicable
Data Reviewed
Review of Other/Old Records Reveals: Labs and Discharge Summary
Source: patient
ED Attending Note
-
Portions of this chart may have been created with voice recognition software.� Occasional wrong word or��sound alike� substitutions may have occurred due to the inherent limitations of voice recognition software.
Discharge Plan
Departure
Prescriptions:
No Action
atorvastatin 80 mg Tablet
80 mg PO HS
carvedilol 25 mg Tablet
25 mg PO BID
aspirin 81 mg Tablet,Delayed Release (Dr/Ec)
81 mg PO DAILY
isosorbide mononitrate 60 mg Tablet Extended Release 24 Hr
60 mg PO DAILY
ranolazine 1,000 mg Tablet Extended Release 12 Hr
1,000 mg PO BID
gabapentin 300 mg Capsule
300 mg PO TID
duloxetine 30 mg Capsule,Delayed Release(Dr/Ec)
30 mg PO DAILY
mirtazapine 30 mg Tablet
30 mg PO HS
ferrous sulfate [FeroSul] 325 mg (65 mg iron) Tablet
325 mg PO BID Qty: 10 0RF
Rx Instructions:
Stools may become darker/terrell with oral iron supplement.
Humulin R Regular U-100 Insuln 100 unit/mL Solution
4 unit SC QID
amlodipine 5 mg tablet
5 mg PO DAILY
torsemide 10 mg Tablet
10 mg PO DAILY
Saccharomyces boulardii [Florastor] 250 mg Capsule
250 mg PO BID
docusate sodium 100 mg capsule
100 mg PO BIDPRN PRN (Reason: Constipation)
doxycycline hyclate 100 mg Capsule
100 mg PO Q12 Qty: 12 0RF
vancomycin 50 mg/mL Recon Soln
125 mg PO DAILY Qty: 11 0RF
insulin glargine 100 unit/mL (3 mL) Insulin Pen
28 unit SC BID Qty: 0 0RF
diphenhydramine HCl [Benadryl Allergy] 25 mg tablet
25 mg PO TID PRN (Reason: itching) Qty: 20 0RF
Referrals:
[facility] [Family Provider, General]
Interventions
Interventions:
*Risk Screen - Suicide Last Done: 06/18/25 19:45
*Neglect/Abuse Screening Last Done: 06/18/25 19:45
*ED COVID-19 Vaccine History Last Done: 06/18/25 19:46
*ED Influenza Vaccine History Last Done: 06/18/25 19:46
[facility] Fall Risk Assessment Tool Last Done: 06/18/25 19:47
ED- Cardiac Assessment Last Done: 06/18/25 19:44
Discharge Date and Time
Print Language: [place]
[2025-06-18 21:00] VITALS: BP 158/91
[2025-06-18 21:50] LABS: ALT (SGPT) 13 U/L (0-50); AST (SGOT) 16 U/L (17-59); Albumin 3.4 g/dl (3.5-5.0); Alkaline Phosphatase 133 U/L (38-126); Blood Urea Nitrogen 26 mg/dl (9-20); Calcium 8.8 mg/dl (8.4-10.2); Carbon Dioxide 29 mmol/L (22-30); Chloride 102 mmol/L (98-107); Estimated Creatinine Clearance 123 ml/min; Glucose 355 mg/dl (70-99); Potassium 4.6 mmol/L (3.5-5.1); Sodium 135 mmol/L (135-145); Total Protein 7.3 g/dl (6.3-8.2); eGFR > 60.00
[2025-06-18 22:02] LABS: Troponin I < 0.012 ng/ml
[2025-06-18 23:14] LABS: Glucose - Point of Care 351 mg/dl (70-99)
[2025-06-18] MEDS: NOVOLOG vial 5 UNITS SC (23:25)
== END 2025-06-19 00:01 ==
LOC: EMR 19:36
PROVIDERS: EMERGENCY PHYSICIAN Student in an Organized Health Care Education/Training Program
DX: R07.9 Chest pain, unspecified (principal); I25.10 Atherosclerotic heart disease of native coronary artery without angina pectoris; I13.0 Hypertensive heart and chronic kidney disease with heart failure and stage 1 through stage 4 chronic kidney disease, or unspecified chronic kidney disease; E11.22 Type 2 diabetes mellitus with diabetic chronic kidney disease; I11.0 Hypertensive heart disease with heart failure; I50.9 Heart failure, unspecified; E11.42 Type 2 diabetes mellitus with diabetic polyneuropathy; N18.9 Chronic kidney disease, unspecified; I25.2 Old myocardial infarction
CPT/HCPCS: 99284; 96372; 80053; 82962; 84484; 85025; 93005

== ENCOUNTER 2025-06-19 17:32 | Emergency (ER) | payer OTHER, SELFPAY ==
[2025-06-19 17:37] VITALS: BP 146/81
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
[2025-06-19 18:53] VITALS: BP 131/82
== END 2025-06-19 18:59 | disposition home or self-care (01) ==
LOC: EMR 17:32
PROVIDERS: EMERGENCY PHYSICIAN Emergency Medicine
DX: S09.90XA Unspecified injury of head, initial encounter (principal); W19.XXXA Unspecified fall, initial encounter; I13.0 Hypertensive heart and chronic kidney disease with heart failure and stage 1 through stage 4 chronic kidney disease, or unspecified chronic kidney disease; E11.22 Type 2 diabetes mellitus with diabetic chronic kidney disease; E11.42 Type 2 diabetes mellitus with diabetic polyneuropathy; E11.69 Type 2 diabetes mellitus with other specified complication; I25.10 Atherosclerotic heart disease of native coronary artery without angina pectoris; N18.30 Chronic kidney disease, stage 3 unspecified; I25.2 Old myocardial infarction; Z79.02 Long term (current) use of antithrombotics/antiplatelets; Z79.82 Long term (current) use of aspirin; Z87.440 Personal history of urinary (tract) infections; Z89.511 Acquired absence of right leg below knee; Z89.512 Acquired absence of left leg below knee
CPT/HCPCS: 99284; 70450; 72125

== ENCOUNTER 2025-06-21 01:27 | Inpatient (IN) | payer OTHER, SELFPAY ==
--- NOTE | 2025-06-20 20:08 | ED.GENMED ---
History of Present Illness
<Reginald Zamudio MD - Last Filed: 06/21/25 12:37>
General
Chief Complaint: Skin Problem
Source: patient
Exam Limitations: none
Time Seen by Provider: 06/20/25 19:19
Nursing documentation reviewed up to this point in time: agreed with
History of Present Illness
History of Present Illness:
Patient presents to ED from [facility] secondary to persistent bleeding from his left leg stump, after it was accidentally hit during transport to the van yesterday. Since then, the dressing has been changed frequently
without improvement. Patient denies dizziness or weakness. Denies shortness of breath. Patient's medical history is significant for recent left leg amputation with wound VAC removal 1 week ago.
Past History
<Reginald Zamudio MD - Last Filed: 06/21/25 12:37>
Past History
ED Past Medical History: CHF, HTN, IDDM, [place], Other (BKA right, Two toe amputation left, left heel debridement) and Other (Guillian Stratford, Chronic Inflammatory Demylinating Polyneuropathy)
ED Past Surgical History: Orthopedic (Right BKA, left two toe amputation, left heel debridement)
Social History
Tobacco: Non-smoker
Drug: None
Living: group home
Review of Systems
<Reginald Zamudio MD - Last Filed: 06/21/25 12:37>
Review of Systems
Allergies reviewed?: Yes
All Other Systems: ROS reviewed and negative except as documented in HPI and ROS
Constitutional: Reports no symptoms
Skin: Reports other (Bleeding from left stump)
Neurological: Reports no symptoms
Phy Exam
<Reginald Zamudio MD - Last Filed: 06/21/25 12:37>
Physical Exam
Physical Exam:
Physical Exam
General: no apparent distress, not acutely ill. afebrile
Head: nc/at. eomi
Neck: supple. normal range of motion.
Abdomen: normal bowel sounds. not tender.
Neuro: alert and oriented x 3. no focal neurological deficits
Skin: left stump: healing granulation tissue noted with small area of nonpulsatile bleeding noted along inner aspect.
Psychiatric: well kept. interactive and cooperative
Extremities: no edema. no calf tenderness.
Course
<Reginald Zamudio MD - Last Filed: 06/21/25 12:37>
Orders/Labs/Results
Orders:
Orders
06/20/25 20:02
Tranexamic Acid 1,000 mg .ROUTE .STK-MED ONE
06/20/25 20:05
Acetaminophen [Tylenol] 1,000 mg PO NOW STA
06/20/25 20:15
Complete Blood Count/No Diff Urgent
06/20/25 21:52
Vital Signs- Treatment ONCE
Frequency: Once
06/21/25 00:20
Vascular Surgery Consult Urgent
Consulting Provider: Christoph Castillo III
Was physician already notified: Yes
06/21/25 00:33
Tranexamic Acid 1,000 mg .ROUTE .STK-MED ONE
06/21/25 01:13
Admit/Transfer Patient As Directed
Co-Sign Provider:
Level of Care: Inpatient admission
Assign to:: Medical/Surgical
Physician / Group: nikhil dietz
Diagnosis: lle wound bleeding
Reason for Hospitalization: vascular surgery eval for bleeding wound
Expected length of stay greater than two midnights?: Yes
ELOS- Estimated Length of Stay in days: 2
I certify the patient meets the requirements for IP care: Yes
06/21/25 01:14
PRN Pain Medication Management As Directed
May give lesser potent ordered pain med per pt: Yes
preference::
Protocol:: Medication orders for pain may be administered in a
manner that supports deferring to patient preference
when the pt is:
- Requesting an ordered lesser potent pain medication.
Least to most potent pain medications are defined
as: acetaminophen < NSAID < tramadol < opioids
(morphine, oxycodone, hydromorphone).
- Requesting a lesser dose of the same medication IF
ORDERED.
- Requesting a less intrusive route of administration
if both routes are prescribed by the provider (PO <
IV).
06/21/25 01:15
Code Status As Directed
Resuscitation Status: Full Code
06/21/25 02:00
Bisacodyl [Dulcolax] 10 mg RECTAL [id number] PRN
Docusate Sodium [Colace] 100 mg PO BIDPRN PRN Constipation
Docusate W/Senna [Senokot-S] 1 tablet PO BIDPRN PRN
Polyethylene Glycol Powder [Miralax] 17 grams PO DAILYPRN PRN
06/21/25 02:00
Activity As Directed
Activity Level: As Tolerated
Vital Signs As Directed
Frequency: Per unit guidelines
DX Deep Vein Thrombosis Video Routine
06/21/25 Breakfast
Regular
At Your Request: Full Participation
06/21/25 08:00
Amlodipine [Norvasc] 5 mg PO DAILY
Aspirin Low Dose EC [Aspir Low (Enteric Coated)] 81 mg PO DAILY
Carvedilol [Coreg] 25 mg PO BID
Doxycycline [Vibramycin] 100 mg PO Q12
Duloxetine Delayed Release [Cymbalta Delayed Release] 30 mg PO DAILY
Ferrous Sulfate [Feosol] 325 mg PO BID
Gabapentin [Neurontin] 300 mg PO TID
ISOSORBIDE MONOnitrate ER [Imdur (Extended Release)] 60 mg PO DAILY
Insulin Human Regular [Novolin R] 4 units SC QID
Ranolazine Extended Release [Ranexa Extended Release] 1,000 mg PO BID
Torsemide [Demadex] 10 mg PO DAILY
insulin glargine 28 unit SC BID
06/21/25 08:15
Basic Metabolic Panel IN AM
Complete Blood Count/No Diff IN AM
06/21/25 18:00
Enoxaparin Sodium [Lovenox] 40 mg SC QPM
06/21/25 22:00
Atorvastatin [Lipitor] 80 mg PO HS
Mirtazapine [Remeron] 30 mg PO HS
Abnormal Lab Results
06/20/25
20:15
RBC 3.09 L 10^6/uL
(4.70-6.10)
Hgb 8.5 L g/dL
(13.0-18.0)
Hct 26.6 L %
(39.0-52.0)
MCHC 32.0 L g/dL
(33.0-37.0)
RDW 16.3 H %
(11.5-14.5)
Plt Count 509 H 10^3/uL
(130-400)
06/20/25 20:15
Vital Signs
Initial and Last Documented VS:
Initial Vital Signs
Pulse Ox
98
06/20/25 19:33
Last Documented Vital Signs
Pulse Resp BP Pulse Ox
81 18 134/83 100
06/21/25 02:03 06/20/25 21:57 06/21/25 03:00 06/21/25 04:05
<Jaxon Posey MD - Last Filed: 06/21/25 03:06>
Orders/Labs/Results
Orders:
Orders
06/20/25 20:02
Tranexamic Acid 1,000 mg .ROUTE .STK-MED ONE
06/20/25 20:05
Acetaminophen [Tylenol] 1,000 mg PO NOW STA
06/20/25 20:15
Complete Blood Count/No Diff Urgent
06/20/25 21:52
Vital Signs- Treatment ONCE
Frequency: Once
06/21/25 00:20
Vascular Surgery Consult Urgent
Consulting Provider: Christoph Castillo III
Was physician already notified: Yes
06/21/25 00:33
Tranexamic Acid 1,000 mg .ROUTE .STK-MED ONE
06/21/25 01:13
Admit/Transfer Patient As Directed
Co-Sign Provider:
Level of Care: Inpatient admission
Assign to:: Medical/Surgical
Physician / Group: nikhil dietz
Diagnosis: lle wound bleeding
Reason for Hospitalization: vascular surgery eval for bleeding wound
Expected length of stay greater than two midnights?: Yes
ELOS- Estimated Length of Stay in days: 2
I certify the patient meets the requirements for IP care: Yes
06/21/25 01:14
PRN Pain Medication Management As Directed
May give lesser potent ordered pain med per pt: Yes
preference::
Protocol:: Medication orders for pain may be administered in a
manner that supports deferring to patient preference
when the pt is:
- Requesting an ordered lesser potent pain medication.
Least to most potent pain medications are defined
as: acetaminophen < NSAID < tramadol < opioids
(morphine, oxycodone, hydromorphone).
- Requesting a lesser dose of the same medication IF
ORDERED.
- Requesting a less intrusive route of administration
if both routes are prescribed by the provider (PO <
IV).
06/21/25 01:15
Code Status As Directed
Resuscitation Status: Full Code
06/21/25 02:00
Bisacodyl [Dulcolax] 10 mg RECTAL [id number] PRN
Docusate Sodium [Colace] 100 mg PO BIDPRN PRN Constipation
Docusate W/Senna [Senokot-S] 1 tablet PO BIDPRN PRN
Polyethylene Glycol Powder [Miralax] 17 grams PO DAILYPRN PRN
06/21/25 02:00
Activity As Directed
Activity Level: As Tolerated
Vital Signs As Directed
Frequency: Per unit guidelines
DX Deep Vein Thrombosis Video Routine
06/21/25 Breakfast
Regular
At Your Request: Full Participation
06/21/25 08:00
Amlodipine [Norvasc] 5 mg PO DAILY
Aspirin Low Dose EC [Aspir Low (Enteric Coated)] 81 mg PO DAILY
Carvedilol [Coreg] 25 mg PO BID
Doxycycline [Vibramycin] 100 mg PO Q12
Duloxetine Delayed Release [Cymbalta Delayed Release] 30 mg PO DAILY
Ferrous Sulfate [Feosol] 325 mg PO BID
Gabapentin [Neurontin] 300 mg PO TID
ISOSORBIDE MONOnitrate ER [Imdur (Extended Release)] 60 mg PO DAILY
Insulin Human Regular [Novolin R] 4 units SC QID
Ranolazine Extended Release [Ranexa Extended Release] 1,000 mg PO BID
Torsemide [Demadex] 10 mg PO DAILY
insulin glargine 28 unit SC BID
06/21/25 08:15
Basic Metabolic Panel IN AM
Complete Blood Count/No Diff IN AM
06/21/25 18:00
Enoxaparin Sodium [Lovenox] 40 mg SC QPM
06/21/25 22:00
Atorvastatin [Lipitor] 80 mg PO HS
Mirtazapine [Remeron] 30 mg PO HS
Abnormal Lab Results
06/20/25
20:15
RBC 3.09 L 10^6/uL
(4.70-6.10)
Hgb 8.5 L g/dL
(13.0-18.0)
Hct 26.6 L %
(39.0-52.0)
MCHC 32.0 L g/dL
(33.0-37.0)
RDW 16.3 H %
(11.5-14.5)
Plt Count 509 H 10^3/uL
(130-400)
06/20/25 20:15
Vital Signs
Initial and Last Documented VS:
Initial Vital Signs
Pulse Ox
98
06/20/25 19:33
Last Documented Vital Signs
Pulse Resp BP Pulse Ox
81 18 134/83 100
06/21/25 02:03 06/20/25 21:57 06/21/25 03:00 06/21/25 04:05
Procedures
<Reginald Zamudio MD - Last Filed: 06/21/25 12:37>
Laceration Closure
Left Lower Leg:
Status of Wound: clean
Size of Wound in cm: 2
Anesthesia: 1% Lidocaine with epi
Revision/Debridement: routine- no revision
Type of Closure: single layer closure
Skin Closure Material: 5-0 vicryl
Number of sutures: 5
<Reginald Zamudio MD - Last Filed: 06/21/25 12:37>
MDM/Problems Addressed
MDM/Problems Addressed:
TXA/Gelform applied to bleeding site and pressure dressing applied. Pt to be reassessed
Patient continues to bleed when reassessed. Discussed with on-call vascular surgery, Dr. Castillo, who recommends placing sutures to tamponade the bleeding site.
5, 5-0 Vicryl sutures placed. Gelfoam applied on top and pressure dressing applied. Patient will to be reassessed.
<Jaxon Posey MD - Last Filed: 06/21/25 03:06>
*Pulse Oximetry
Patient hypoxic: no (99%)
*Critical Care Note
Total Time (30-74mins, 75-104mins- exclusive of procedures): Not Applicable
<Jaxon Posey MD - Last Filed: 06/21/25 03:06>
Update Note
Update Note:
UPDATE (Jaxon Posey MD)
I have seen and evaluated the patient after signout and reviewed all labs and imaging.
Focused HPI: 29-year-old male with extensive medical history, recent admission and BKA, multiple visits for issues with left stump wound presents from [facility] today with bleeding from his stump wound.
Physical exam: Awake and alert, nontoxic, normotensive, heart rate in the 80s. He has a mild wound on the left stump with slow steady oozing from wound bed but no pulsatile arterial bleeding.
Medical Decision Makin-year-old male presents with bleeding from left stump wound. Vital stable. He did drop his hemoglobin from previous to 8.5 from prior value of 9.5. Multiple attempts by initial treating physician at hemostasis failed
including placing 5 Vicryl sutures, TXA pressure dressing, Surgicel pressure dressing. On my assessment still having brisk oozing from wound bed. Injected the area with lidocaine and epinephrine and applied direct pressure without hemostasis. I
then 2 additional large horizontal mattress sutures and 3 simple interrupted sutures but was not able to obtain hemostasis despite this measure. Discussed case with vascular surgery recommended pressure dressing overnight they will assess in the
morning. Discussed with hospitalist.
ED Attending Note
<Reginald Zamudio MD - Last Filed: 06/21/25 12:37>
-
Portions of this chart may have been created with voice recognition software.� Occasional wrong word or��sound alike� substitutions may have occurred due to the inherent limitations of voice recognition software.
Discharge Plan
Departure
Patient Disposition: Admit
Date of Disposition: 06/21/25
Time of Disposition: 00:38
Admit to doctor: Omari
Presentation/result/management discussed w/ accepting MD/DO: Hospitalist
Discharge Problem:
Bleeding from surgical wound
Interventions
Interventions:
*Risk Screen - Suicide Last Done: 06/21/25 02:05
*General Assessment Last Done: 06/21/25 02:05
*Neglect/Abuse Screening Last Done: 06/21/25 02:05
*ED COVID-19 Vaccine History Last Done: 06/20/25 19:27
*ED Influenza Vaccine History Last Done: 06/20/25 19:27
ED-Skin Assessment Last Done: 06/20/25 19:33
[2025-06-20] MEDS: TYLENOL 1000 MG PO (20:09)
[2025-06-20 20:22] LABS: Hematocrit 26.6 % (39.0-52.0); Hemoglobin 8.5 g/dL (13.0-18.0); Mean Corp Hgb Conc. 32.0 g/dL (33.0-37.0); Mean Corpuscular Volume 86.1 fL (80.0-94.0); Platelet Count 509 10^3/uL (130-400); Red Cell Dist. Width 16.3 % (11.5-14.5)
[2025-06-20 21:57] VITALS: BP 147/85
[2025-06-21 00:39] VITALS: BP 140/80
--- NOTE | 2025-06-21 00:45 | HPS.HSE ---
Family Physician
-
Family Physician: [facility]
Chief Complaint
-
bleeding from wound
History of Present Illness
29y M with PMH significant for DM-I, ASCVD and multiple LE amputations who presents to ED for evaluation of L BKA site due to bleeding for which the ER was unable to control. States [place] and the officers banged his
legs against the car and his wound opened up and began bleeding. Vascular surgery recommended admission with pressure dressing over right and will intervention/repair.
Medical History
Past Medical History
Past Medical History: Reports CAD, GERD, HTN, Hypercholesterolemia and IDDM
Past Surgical History: Reports Other (s/p Left 1st and 2nd digit amputation due to osteomyelitis and debridement of left heel ulcer (01/21/25) PTCA with Stent Right BKA Left TMA and Heel Debridement (03/08/25) I&D of TMA site, Heel Debridement
(03/25/25) I&D of TMA site, Heel Debridement (04/04/25) Left Lis franc Disarticulation, Complex )
Social History
Drug: None
Family History
Family History: Not pertinent
Allergies / Home Medications
Allergies reflects when Allergies were last updated in [facility].
Home Medications with original date entered in [facility]
Allergy/Medication List:
Allergies
Allergy/AdvReac Type Severity Reaction Status Date / Time
cefepime Allergy Itching, Verified 06/18/25 19:43
rash
ibuprofen Allergy Unknown Verified 06/18/25 19:43
meropenem Allergy Itching, Verified 06/18/25 19:43
rash
oxycodone Allergy Unknown Verified 06/18/25 19:43
Penicillins Allergy Unknown Verified 06/18/25 19:43
silver Allergy Hives Verified 06/18/25 19:43
silver nitrate Allergy Hives Verified 06/18/25 19:43
sweet potato Allergy Unknown Verified 06/18/25 19:43
tuna oil Allergy Unknown Verified 06/18/25 19:43
turkey Allergy Unknown Verified 06/18/25 19:43
vancomycin Allergy Itchy Rash Verified 06/18/25 19:43
Home Medications
aspirin 81 mg tablet,delayed release 81 mg PO DAILY Blood Clot Prevention/Tx 02/02/25
atorvastatin 80 mg tablet 80 mg PO HS High Cholesterol 02/02/25
carvedilol 25 mg tablet 25 mg PO BID Heart Failure 02/02/25
isosorbide mononitrate 60 mg tablet,extended release 24 hr 60 mg PO DAILY Heart Disease/Condition 02/02/25
ranolazine 1,000 mg tablet,extended release,12 hr 1,000 mg PO BID Heart Disease/Condition 02/02/25
duloxetine 30 mg capsule,delayed release 30 mg PO DAILY Mental Health/Anxiety 02/07/25
gabapentin 300 mg capsule 300 mg PO TID NEUROPATHIC PAIN 02/07/25
mirtazapine 30 mg tablet 30 mg PO HS Mental Health/Anxiety 03/23/25
ferrous sulfate 325 mg (65 mg iron) tablet (FeroSul) 325 mg PO BID anemia #10 tabs 04/30/25
amlodipine 5 mg tablet 5 mg PO DAILY Blood Clot Prevention/Tx 05/16/25
insulin regular human 100 unit/mL injection solution (Humulin R Regular U-100 Insulin) 4 unit SC QID Diabetes 05/16/25
Saccharomyces boulardii 250 mg capsule (Florastor) 250 mg PO BID 06/12/25
docusate sodium 100 mg capsule 100 mg PO BIDPRN PRN Constipation 06/12/25
torsemide 10 mg tablet 10 mg PO DAILY 06/12/25
doxycycline hyclate 100 mg capsule 100 mg PO Q12 #12 caps 06/16/25
insulin glargine 100 unit/mL (3 mL) subcutaneous pen 28 unit (0.28 mL) SC BID #0 mL 06/16/25
Review of Systems
-
A 12 point ROS was completed and negative except as noted: Yes
Physical Exam
Vital Signs
Vital Signs
Pulse Resp BP Pulse Ox
89 18 147/85 100
06/20/25 21:57 06/20/25 21:57 06/20/25 21:57 06/20/25 21:57
Physical Exam
General: Well Developed, Well Nourished and No Apparent Distress
HEENT: NormoCephalic and Anicteric
Respiratory: Clear
Cardiac: S1/S2 and Regular Rhythm
GI: Soft, Non Tender, Non Distended and Normal Bowel Sounds
Musculoskeletal: No Clubbing and No Cyanosis
Skin: Warm, Dry and Other (R BKA site with minimal superficial crusted lesion - healing well. Left bka is wrapped, dressing appear dry)
Neuro: Awake and AO x 3
Psych: Calm
Laboratory Results
-
06/20/25 20:15
Impression/Plan
-
Left BKA wound
S/p direct pressure, TXA, epi injection, Surgicel, 10+ sutures in the ER however continues to ooze
ED discussed case with vascular surgery recommended pressure dressing overnight and assess for OR in the morning
Keep dressingg intact and dry
CAD s/p PCI
Aspirin, statin, beta-ramón, Ranexa
PAD with double amputations
Hypertension
Continue antihypertensives
Diabetes type 1
Accu-Cheks sliding scale will do short acting insulin
Blood glucose 140-180
Carb controlled diet
CKD stage III
Straight cath as needed
Chronic iron deficiency anemia
Continue iron supplementation
Anxiety depression
Duloxetine mirtazapine
[2025-06-21 01:00] VITALS: BP 128/74
[2025-06-21 02:00] VITALS: BP 139/78
[2025-06-21 03:00] VITALS: BP 134/83
[2025-06-21] MEDS: DILAUDID 0.25 MG IV ×4 (03:32→22:16)
[2025-06-21 08:26] LABS: Hematocrit 24.8 % (39.0-52.0); Hemoglobin 8.0 g/dL (13.0-18.0); Mean Corp Hgb Conc. 32.3 g/dL (33.0-37.0); Mean Corpuscular Volume 85.2 fL (80.0-94.0); Platelet Count 459 10^3/uL (130-400); Red Cell Dist. Width 16.3 % (11.5-14.5)
[2025-06-21 08:40] LABS: Blood Urea Nitrogen 17 mg/dl (9-20); Calcium 8.5 mg/dl (8.4-10.2); Carbon Dioxide 28 mmol/L (22-30); Chloride 105 mmol/L (98-107); Estimated Creatinine Clearance > 125 ml/min; Glucose 165 mg/dl (70-99); Potassium 4.3 mmol/L (3.5-5.1); Sodium 136 mmol/L (135-145); eGFR > 60.00
--- NOTE | 2025-06-21 08:40 | CON.VAS ---
Addendum entered and electronically signed by Christoph Castillo III, MD 06/21/25 11:48:
This patient was seen and examined in collaboration with DONTE Marrero. I agree with the history and physical exam as well as the assessment and plan. I have the following additions:
Well-known to our service.
Left below the knee amputation with delayed wound healing
Returns after localized trauma to the left BKA stump reported to be from hitting his residual limb against a transport vehicle
Patient noted to have bleeding/oozing from the granulating wound bed
Pressure and stitches were applied in the emergency room overnight
On examination this morning the dressing was removed
The wound is clean and the base has healthy granulation tissue present
No evidence of infection
The wound is hemostatic and no active bleeding was identified
The residual limb and wound were manipulated to determine if any bleeding could be identified and there was not
A nonadherent dressing was reapplied to the wound bed and covered in dry gauze
The residual limb was wrapped gently in an Hemal wrap
Local wound care
Cleanse the left BKA wound daily
Nonadherent dressings to the left BKA wound and change daily
Cover with dry gauze and gently wrap with Hemal wrap
Follow-up with Dr. Paris in the office
Call with questions or concerns
Signed:
Christoph Castillo III, MD
Vascular Surgery
[facility]
Original Note:
Consultation
Consultation Request
Date/Time Consultation Performed: 06/21/2025 at 7:30 AM
Performing Provider: Jonathan
Reason for Consultation: Bleeding from left stump site
Medical History
-
Chief Complaint: Bleeding from left stump site
History of Present Illness:
29 yo male prisoner with significant PMH for CAD with 4 stents, type 1 diabetes, hypertension, heart failure, Guillian Potts�, GERD, CKD 3, right BKA, s/p left BKA on 04/[address] Paris presenting to the ER for left stump oozing s/p 'banging it on a
transport van.' Pt has had many admissions and ER visits since January for nonhealing wounds and bleeding events d/t injuries to surgical sites.
Vascular consult for continued bleeding overnight despite multiple sutures placed and pressure dressings applied. Pt seen at bedside this am with Dr Castillo. Dressing removed at bedside. Site is hemostatic at this time. Granulation tissue throughout
wound bed. Pressure dressing reapplied.
Past Medical History
Past Medical History: CAD, CHF, GERD, IDDM and Other (CAD with 4 stents, type 1 diabetes, hypertension, heart failure, Guillian Potts�, GERD, CKD 3, right BKA, status post left hallux and second digit amputation due to osteomyelitis on 01/21/2025 in
hospital in [place])
Past Surgical History: Other (Amputations)
Social History
Personal: Single
Family History
Family History: Reviewed & Not Pertinent
Allergies / Home Medications
Allergy/AdvReac Type Severity Reaction Status Date / Time
cefepime Allergy Itching, Verified 06/18/25 19:43
rash
ibuprofen Allergy Unknown Verified 06/18/25 19:43
meropenem Allergy Itching, Verified 06/18/25 19:43
rash
oxycodone Allergy Unknown Verified 06/18/25 19:43
Penicillins Allergy Unknown Verified 06/18/25 19:43
silver Allergy Hives Verified 06/18/25 19:43
silver nitrate Allergy Hives Verified 06/18/25 19:43
sweet potato Allergy Unknown Verified 06/18/25 19:43
tuna oil Allergy Unknown Verified 06/18/25 19:43
turkey Allergy Unknown Verified 06/18/25 19:43
vancomycin Allergy Itchy Rash Verified 06/18/25 19:43
�Medication �Instructions �Recorded �Confirmed �Type
aspirin 81 mg tablet,delayed 81 mg PO DAILY Blood Clot 02/02/25 06/21/25 History
release Prevention/Tx
atorvastatin 80 mg tablet 80 mg PO HS High Cholesterol 02/02/25 06/21/25 History
carvedilol 25 mg tablet 25 mg PO BID Heart Failure 02/02/25 06/21/25 History
isosorbide mononitrate 60 mg 60 mg PO DAILY Heart 02/02/25 06/21/25 History
tablet,extended release 24 hr Disease/Condition
ranolazine 1,000 mg 1,000 mg PO BID Heart 02/02/25 06/21/25 History
tablet,extended release,12 hr Disease/Condition
duloxetine 30 mg capsule,delayed 30 mg PO DAILY Mental 02/07/25 06/21/25 History
release Health/Anxiety
gabapentin 300 mg capsule 300 mg PO TID NEUROPATHIC PAIN 02/07/25 06/21/25 History
mirtazapine 30 mg tablet 30 mg PO HS Mental Health/Anxiety 03/23/25 06/21/25 History
ferrous sulfate 325 mg (65 mg 325 mg PO BID anemia #10 tabs 04/30/25 06/21/25 Rx
iron) tablet (FeroSul)
amlodipine 5 mg tablet 5 mg PO DAILY Blood Clot 05/16/25 06/21/25 History
Prevention/Tx
insulin regular human 100 unit/mL 4 unit SC QID Diabetes 05/16/25 06/21/25 History
injection solution (Humulin R
Regular U-100 Insulin)
docusate sodium 100 mg capsule 100 mg PO BIDPRN PRN Constipation 06/12/25 06/21/25 History
torsemide 10 mg tablet 10 mg PO DAILY 06/12/25 06/21/25 History
doxycycline hyclate 100 mg capsule 100 mg PO Q12 #12 caps 06/16/25 06/21/25 Rx
insulin glargine 100 unit/mL (3 28 unit (0.28 mL) SC BID #0 mL 06/16/25 06/21/25 Rx
mL) subcutaneous pen
Lactobac no.2-Bifidobac no.1-S. 1 cap PO BID 06/21/25 06/21/25 History
thermo 112.5 billion cell capsule
(Visbiome)
vancomycin 125 mg capsule 125 mg PO DAILY 06/21/25 06/21/25 History
Review of Systems
-
History Source: Patient
All other systems: Negative unless noted
Constitutional: Reports No Symptoms
EENT: Reports No Symptoms
Respiratory: Reports No Symptoms
Cardiac: Reports No Symptoms
Vascular: Denies Leg Pain / Claudication
Abdomen/GI: Reports No Symptoms
: Reports No Symptoms
Musculoskeletal: Reports No Symptoms
Skin: Reports Other (Bloody ooze to left stump site)
Neurological: Reports No Symptoms
Physical Exam
Vital Signs
Pulse Resp BP Pulse Ox
81 18 134/83 100
06/21/25 02:03 06/20/25 21:57 06/21/25 03:00 06/21/25 04:05
Lab Results
06/21/25 08:15
Physical Exam
General: No Apparent Distress
HEENT: Normocephalic and Atraumatic
Respiratory: Non Labored Respirations
Cardiac: Negative JVD
Musculoskeletal: No Clubbing and No Cyanosis
Skin: Warm and Other (Left stump with granulation tissue at the wound bed, scant sanguinous drainage)
Neuro: Awake, Alert and Oriented
Psych: Calm
Assessment / Plan
-
29-year-old male presenting to the [facility] from [facility] for bloody ooze from left stump site after traumatic injury
Plan:
Site is hemostatic at this time, new pressure dressing applied
Okay for discharge from vascular standpoint
[2025-06-21] MEDS: NovoLIN R Flexpen 4 UNITS SC ×2 (09:17→13:30)
[2025-06-21] MEDS: CYMBALTA DELAYED RELEASE 30 MG PO (09:18)
[2025-06-21] MEDS: IMDUR (EXTENDED RELEASE) 60 MG PO (09:18)
[2025-06-21] MEDS: DEMADEX 10 MG PO (09:18)
[2025-06-21] MEDS: RANEXA EXTENDED RELEASE 1000 MG PO ×2 (09:19→20:32)
[2025-06-21] MEDS: NEURONTIN 300 MG PO ×3 (09:20→22:16)
[2025-06-21] MEDS: NORVASC 5 MG PO (09:20)
[2025-06-21] MEDS: FEOSOL 325 MG PO ×2 (09:20→20:19)
[2025-06-21] MEDS: LANTUS 0.28 UNITS SC ×2 (09:21→20:19)
[2025-06-21] MEDS: COREG 25 MG PO ×2 (09:21→20:18)
[2025-06-21] MEDS: VIBRAMYCIN 100 MG PO ×2 (09:21→20:19)
[2025-06-21] MEDS: ASPIR LOW (ENTERIC COATED) 81 MG PO (09:21)
[2025-06-21 13:12] LABS: Glucose - Point of Care 341 mg/dl (70-99)
--- NOTE | 2025-06-21 13:21 | PTCARENOTE ---
pt aaox3. states min pain in left stump. left stump dressing intact with min bloody drainage. pt self cath. guards in room with pt. pt shackled to stretcher. pt states he is concerned about his increasing left sided weakness and would like to
speak to the dr about it.
--- NOTE | 2025-06-21 14:54 | PN.DE.MGMTRT ---
Insulin Management
- -
06/20/2025: Diabetes Management Consult
29 year old male prisoner from [facility] who presented to [facility] ED c/o left stump oozing s/p 'banging it on a transport van.' Pt has had many admissions and ER visits since January for nonhealing wounds and bleeding events d/t
injuries to surgical sites.
[facility]: T1DM, R BKA, L toe amputation, Guillian [place], CHF, HTN, CKD 3, SC, GERD, s/p left BKA on 04/21. He is well known to diabetes service from 03/14-05/13 hospital stay. Prior to admission was receiving Lantus 28 units BID and Humulin R insulin 4
units QID. Recent 6.6%, (noted for chronic Anemia, hgb 8.0), Cr 0.9, eGFR > 60 today.
Fasting Glucose today was 165 V, pre-lunch glucose was 341, admitting physician has started him on his home regimen.
Received Lantus 28 units this AM and Novolin R 4 units at breakfast and lunch. Will continue Lantus 28 units BID.
Due to the duration and timing of Novolin R that requires more foresight, will use Aspart pre-meals while pt remains in the hospital.
Will d/c Novolin R and start AC NovoLog 6 units and low corrective insulin with meals for now.
Change diet from regular to 2000 james diet.
Will closely monitor glucose trend and adjust if necessary.
Diabetes History
- -
Type of Diabetes: 1
Pre-Admission Diabetes Regimen
06/21/25
08:15
Creatinine 0.9
Insulin Pump Settings
IP Diabetes Regimen
06/21/25 06/21/25
08:15 13:11
Glucose 165 H
POC Glucose 341 H
Patient Education
--- NOTE | 2025-06-21 15:46 | W.PN.UPDATE ---
Update Note
Progress Note Update
Patient seen and examined after postmidnight admission. Called to bedside by patient's RN as the patient states that he now cannot move his left side. Last known well time 1433. He states he has not gotten his 'injections' for GBS and CIDP since
September. Patient does not have any other acute complaints at this time. Vital signs stable. No acute distress, awake and alert. NCAT, CN 2-12 intact. 0/5 LUE/LLE. Case discussed with Dr. Nugent over the phone. Pt had unremarkable CT brain 06/19. I
have a high index of suspicion that the patient is malingering. MRI brain ordered. Considering patient came into the hospital with bleeding of his left stump I highly doubt he would be a TNK candidate regardless.
--- NOTE | 2025-06-21 17:08 | CON.NEURO4 ---
Addendum entered and electronically signed by Erickson Nugent MD 06/21/25 18:45:
Recommend to get MRA of the brain and and MRA of the neck, along with the MRI of the brain without contrast.
Original Note:
Consultation - Neurology 4
-
CONSULTING PHYSICIAN: Dr. Erickson Nugent
REFERRING PHYSICIAN: Dr. Deandre Pennington
DICTATED BY: Dr Erickson Nugent
DATE/TIME OF REQUEST: 06/21/2025
DATE/TIME OF CONSULTATION: 06/21/2025
Reason for Consultation: Left-sided weakness
ASSESSMENT AND PLAN:
The patient is a 29 years old male with a past medical history of hypertension, diabetes type 1, chronic kidney disease stage III and coronary artery disease along with CIDP and GBS, who was reported by his nurse to be unable to move his left side
at around 2:30 PM today. Neurology was consulted for the left-sided weakness. According to the patient the left-sided weakness started about 2 weeks ago and has progressively been becoming worse over the last 2 weeks and certainly his weakness did
not start today as per patient. He has had bilateral BKA amputations and he presented to the hospital today for evaluation of left below the knee amputation site due to bleeding. States [place] getting [place] and the officers banged his
legs against the car and his wound opened up and began bleeding.
The patient is not a candidate for thrombolytic therapy as he is outside the time window. The left-sided weakness started about 2 weeks ago, but became worse today as per patient. The patient was able to hold the left upper extremity against
gravity and also was able to hold the left leg against gravity. CT of the head did not show any acute intracranial abnormality. MRI of the brain without contrast is pending.
. Aspirin 81 mg daily
. Atorvastatin 80 mg daily
History of Present Illness:
The patient is a 29 years old male with a past medical history of hypertension, diabetes type 1, chronic kidney disease stage III and coronary artery disease along with CIDP and GBS, who was reported by his nurse to be unable to move his left side
at around 2:30 PM today. Neurology was consulted for the left-sided weakness. According to the patient the left-sided weakness started about 2 weeks ago and has progressively been becoming worse over the last 2 weeks and certainly his weakness did
not start today as per patient. Apparently has been receiving plasma exchange in the past for CIDP. He has had bilateral BKA amputations and he presented to the hospital today for evaluation of left below the knee amputation site due to bleeding.
States [place] getting into county [place] and the officers banged his legs against the car and his wound opened up and began bleeding. Vascular surgery recommended admission with pressure dressing.
Note: The patient is a poor historian and it was very difficult to get information from him and there is a concern about malingering. The patient was brought to the hospital from [facility].
Past Medical History: Hypertension, diabetes type 1, chronic kidney disease stage III and coronary artery disease along with CIDP and GB
Surgical History: Bilateral BKAs.
Social History: Non-smoker and is living in a chcf
Review of Systems:
The 10 point review of system was negative aside from as given in the above history of present illness
Neurologic Examination:
Alert and oriented x 3,
Speech is clear,
Cranial nerves II-XII are grossly intact, the visual gerardo are grossly full bilaterally to confrontation,
The motor strength is grossly 4/5 in the left upper extremity and grossly 5/5 in the right upper extremity. The right lower extremity is grossly 4/5 and the left lower extremity is grossly 4-/5 (The patient has bilateral BKA).
The Ugwgfi-eajc-znhuws test did not show limb ataxia bilaterally.
Vital Signs and Labs
-
Vital Signs and Labs:
Vital Signs
Temp Pulse Resp BP Pulse Ox
36.7 C 81 18 134/83 100
06/21/25 13:21 06/21/25 02:03 06/20/25 21:57 06/21/25 03:00 06/21/25 04:05
Lab Results
06/21/25 08:15
06/21/25 08:15
Sodium 136 mmol/L (135-145) 06/21/25 08:15
Potassium 4.3 mmol/L (3.5-5.1) 06/21/25 08:15
BUN 17 mg/dl (9-20) 06/21/25 08:15
Glucose 165 mg/dl (70-99) H 06/21/25 08:15
Calcium 8.5 mg/dl (8.4-10.2) 06/21/25 08:15
Medications
-
Active Medications
Generic Name Dose Route Start Last Admin
Trade Name Freq PRN Reason Stop Dose Admin
Amlodipine Besylate 5 mg 06/21/25 08:00 06/21/25 09:20
Amlodipine 5 Mg Tablet PO 07/19/25 07:59 5 mg
DAILY JATIN Administration
Aspirin 81 mg 06/21/25 08:00 06/21/25 09:21
Aspirin 81 Mg (Enteric Coated) Tablet PO 07/19/25 07:59 81 mg
DAILY JATIN Administration
Atorvastatin Calcium 80 mg 06/21/25 22:00
Atorvastatin (Lipitor) 80 Mg Tablet PO 07/19/25 21:59
HS JATIN
Bisacodyl 10 mg 06/21/25 02:00
Bisacodyl 10 Mg Rectal Suppository RECTAL 07/19/25 01:59
[id number] PRN
constipation
Carvedilol 25 mg 06/21/25 08:00 06/21/25 09:21
Carvedilol 25 Mg Tablet PO 07/19/25 07:59 25 mg
BID JATIN Administration
Dextrose 12.5 grams 06/21/25 15:16
Dextrose 50% (0.5 Grams/Ml) 50 Ml Syringe IV 07/19/25 15:15
[id number] PRN
BLOOD GLUCOSE < 70
Docusate Sodium 100 mg 06/21/25 02:00
Docusate Sodium 100 Mg Capsule PO 07/19/25 01:59
BIDPRN PRN
Constipation
Doxycycline Hyclate 100 mg 06/21/25 08:00 06/21/25 09:21
Doxycycline 100 Mg Capsule PO 100 mg
Q12 JATIN Administration
Duloxetine HCl 30 mg 06/21/25 08:00 06/21/25 09:18
Duloxetine Delayed Release 30 Mg Capsule PO 07/19/25 07:59 30 mg
DAILY JATIN Administration
Enoxaparin Sodium 40 mg 06/21/25 18:00 06/21/25 17:44
Enoxaparin Sodium 40 Mg/0.4 Ml Syringe SC 07/19/25 17:59 40 mg
QPM JATIN Administration
Ferrous Sulfate 325 mg 06/21/25 08:00 06/21/25 09:20
Ferrous Sulfate 325 Mg Tablet PO 07/19/25 07:59 325 mg
BID JATIN Administration
Gabapentin 300 mg 06/21/25 08:00 06/21/25 17:44
Gabapentin 300 Mg Capsule PO 07/19/25 07:59 300 mg
TID JATIN Administration
Glucagon 1 mg 06/21/25 15:16
Glucagon 1 Mg Vial IM 07/19/25 15:15
PRN PRN
hypoglycemia
Protocol
Hydromorphone HCl 0.25 mg 06/21/25 02:59 06/21/25 14:33
Hydromorphone 0.25 Mg/0.5 Ml Syringe IV 07/05/25 02:58 0.25 mg
Q6HPRN PRN Administration
pain
Insulin Glargine 28 units/ 0.28 mls @ 0 mls/hr 06/21/25 08:00 06/21/25 09:21
Device SC 07/19/25 07:59 0.28 mls
BID JATIN Administration
As Directed
Insulin Aspart 6 units 06/21/25 16:30 06/21/25 18:28
Insulin Aspart (Novolog) 100 Units/Ml 3 Ml Flexpen SC 07/19/25 16:29 6 units
AC JATIN Administration
Isosorbide Mononitrate 60 mg 06/21/25 08:00 06/21/25 09:18
Isosorbide Mononitrate 60 Mg Extended Release Tablet PO 07/19/25 07:59 60 mg
DAILY JATIN Administration
Mirtazapine 30 mg 06/21/25 22:00
Mirtazapine 30 Mg Tablet PO 07/19/25 21:59
HS JATIN
Polyethylene Glycol 17 grams 06/21/25 02:00
Polyethylene Glycol Powder 17 Grams Packet PO 07/19/25 01:59
DAILYPRN PRN
constipation
Ranolazine 1,000 mg 06/21/25 08:00 06/21/25 09:19
Ranolazine 500 Mg Extended Release Tablet PO 07/19/25 07:59 1,000 mg
BID JATIN Administration
Senna/Docusate Sodium 1 tablet 06/21/25 02:00
Docusate W/Senna (Yael-Colace) Tablet PO 07/19/25 01:59
BIDPRN PRN
constipation
Sodium Chloride 0 flush 06/21/25 03:00
Sodium Chloride 0.9% (Flush) Syringe IV 07/19/25 02:59
PER PROTOCOL JATIN
Torsemide 10 mg 06/21/25 08:00 06/21/25 09:18
Torsemide 5 Mg Tablet PO 07/19/25 07:59 10 mg
DAILY JATIN Administration
Home Medications
�Medication �Instructions �Recorded
aspirin 81 mg tablet,delayed 81 mg PO DAILY Blood Clot 02/02/25
release Prevention/Tx
atorvastatin 80 mg tablet 80 mg PO HS High Cholesterol 02/02/25
carvedilol 25 mg tablet 25 mg PO BID Heart Failure 02/02/25
isosorbide mononitrate 60 mg 60 mg PO DAILY Heart 02/02/25
tablet,extended release 24 hr Disease/Condition
ranolazine 1,000 mg 1,000 mg PO BID Heart 02/02/25
tablet,extended release,12 hr Disease/Condition
duloxetine 30 mg capsule,delayed 30 mg PO DAILY Mental 02/07/25
release Health/Anxiety
gabapentin 300 mg capsule 300 mg PO TID NEUROPATHIC PAIN 02/07/25
mirtazapine 30 mg tablet 30 mg PO HS Mental Health/Anxiety 03/23/25
ferrous sulfate 325 mg (65 mg 325 mg PO BID anemia #10 tabs 04/30/25
iron) tablet (FeroSul)
amlodipine 5 mg tablet 5 mg PO DAILY Blood Clot 05/16/25
Prevention/Tx
insulin regular human 100 unit/mL 4 unit SC ACHS Diabetes 05/16/25
injection solution (Humulin R
Regular U-100 Insulin)
docusate sodium 100 mg capsule 100 mg PO BIDPRN PRN Constipation 06/12/25
torsemide 10 mg tablet 10 mg PO DAILY 06/12/25
doxycycline hyclate 100 mg capsule 100 mg PO Q12 #12 caps 06/16/25
insulin glargine 100 unit/mL (3 28 unit (0.28 mL) SC BID #0 mL 06/16/25
mL) subcutaneous pen
Saccharomyces boulardii 250 mg 250 mg PO BID 06/21/25
capsule (Florastor)
vancomycin 125 mg capsule 125 mg PO DAILY 06/21/25
[2025-06-21] MEDS: LOVENOX 40 MG SC (17:44)
[2025-06-21 17:51] LABS: Glucose - Point of Care 339 mg/dl (70-99)
[2025-06-21] MEDS: NOVOLOG FLEXPEN 6 UNITS SC (18:28)
[2025-06-21 20:08] LABS: Glucose - Point of Care 387 mg/dl (70-99)
[2025-06-21 20:16] VITALS: BP 138/74
[2025-06-21 20:17] VITALS: BP 138/74
[2025-06-21] MEDS: REMERON 30 MG PO (22:16)
[2025-06-21] MEDS: LIPITOR 80 MG PO (22:16)
[2025-06-22] VITALS (13 sets, daily range): BP systolic 115–158; BP diastolic 67–88
[2025-06-22 06:58] LABS: Hematocrit 22.9 % (39.0-52.0); Hemoglobin 7.1 g/dL (13.0-18.0); Mean Corp Hgb Conc. 31.0 g/dL (33.0-37.0); Mean Corpuscular Volume 87.7 fL (80.0-94.0); Platelet Count 437 10^3/uL (130-400); Red Cell Dist. Width 16.6 % (11.5-14.5)
[2025-06-22 07:11] LABS: Blood Urea Nitrogen 17 mg/dl (9-20); Calcium 8.2 mg/dl (8.4-10.2); Carbon Dioxide 29 mmol/L (22-30); Chloride 104 mmol/L (98-107); Estimated Creatinine Clearance 120 ml/min; Glucose 240 mg/dl (70-99); Potassium 4.2 mmol/L (3.5-5.1); Sodium 136 mmol/L (135-145); eGFR > 60.00
[2025-06-22 07:53] LABS: Glucose - Point of Care 249 mg/dl (70-99)
--- NOTE | 2025-06-22 08:19 | W.PN.HOSP.TC ---
Addendum entered and electronically signed by Deandre Pennington MD 06/22/25 13:06:
MRI brain: No acute intracranial abnormality.
MRA head: No MRA evidence for high-grade stenosis or occlusion in the [place].
MRA neck: No MRA evidence for high-grade stenosis or occlusion of the arterial vasculature in the neck.
Medically cleared for d/c after 2U pRBCs completed. CM and RN updated, conditional d/c placed.
Total time spent on d/c = 45 min. This included today's physical exam, progress note, review of laboratory and diagnostic data, preparation of discharge documents and prescriptions, and discussions about the pt's hospital course and discharge plan
with the patient and other medical chief technician involved in the patient's care.
Original Note:
Today's Communication/Plan
-
see plan
Assessment / Plan
Assessment / Plan
Gen: NAD, AAOx3.
Eyes: EOMI, PERRLA, no scleral icterus.
Neck: supple.
CV: RRR, +S1/S2, no m/r/g.
Resp: CTAB, no rales, wheezes, or rhonchi.
Abd: +BS, soft, NT, [place]
Skin: No rashes.
Neuro: CN 2-12 intact, LUE/LLE 4/5 (note, pt did not have any difficulties signing blood consent form)
Psych: Normal mood and affect.
Acute blood loss anemia due to trauma to the left lower extremity stump:
-underlying chronic Fe def anemia, cont FeSO4
-Hb 7.1, transfuse 1U pRBCs
-s/p direct pressure, TXA, epi injection, Surgicel, 10+ sutures in the ER however continued to ooze and therefore pt was admitted
-seen by vascular surgery 12/11AM, no evidence of bleeding at that time, vascular surgery signed off
L-sided weakness:
-acute on chronic
-seen by neuro, not a TNK candidate
-MRI brain ordered 12/9
-concern for malingering
DM1:
-uncontrolled with severe hyperglycemia
-cont to titrate Premeal NovoLog and Lantus
-diabetes [employer] following
Other problems:
CAD s/p PCI: cont ASA/statin/BB/Ranexa
PAD s/p B/L BKAs: cont ASA/statin
Essential HTN: cont Norvasc/Imdur/BB
Anxiety/depression: cont Cymbalta
FULL/Lovenox. Note, pt had acute blood loss anemia which has resolved. Pt is sedentary and risk/benefit analysis favors continuing Lovenox for now.
Anticipated Discharge: Within 24 hours
Subjective/Interval History
-
Date of Service: June 22, 2025
Pt states he's still having L-sided weakness.
Objective Data
-
Labs:
Laboratory Results
06/22/25
06:50
WBC 8.8
Hgb 7.1 L
Hct 22.9 L
Plt Count 437 H
Sodium 136
Potassium 4.2
Chloride 104
Carbon Dioxide 29
BUN 17
Creatinine 1.0
Glucose 240 H
Calcium 8.2 L
Vital Signs:
Vital Signs
Temp Pulse Resp BP Pulse Ox
98.3 F 87 13 138/74 90
06/21/25 20:17 06/22/25 04:15 06/22/25 04:15 06/21/25 20:18 06/22/25 01:15
[2025-06-22] MEDS: DILAUDID 0.25 MG IV ×2 (09:02→16:15)
[2025-06-22] MEDS: NEURONTIN 300 MG PO ×2 (09:06→16:15)
[2025-06-22] MEDS: NORVASC 5 MG PO (09:07)
[2025-06-22] MEDS: FEOSOL 325 MG PO (09:07)
[2025-06-22] MEDS: VIBRAMYCIN 100 MG PO (09:07)
[2025-06-22] MEDS: ASPIR LOW (ENTERIC COATED) 81 MG PO (09:07)
[2025-06-22] MEDS: NOVOLOG FLEXPEN 8 UNITS SC ×3 (09:07→17:22)
[2025-06-22] MEDS: COREG 25 MG PO (09:07)
--- NOTE | 2025-06-22 09:25 | CM ---
Patient admitted from [facility] with anemia, wound infection and hyperglycemia; currently in custody of [facility] Guards.
Chart reviewed
Pt came in from [facility] for left wound leg wound in the custody of [facility] guards
Per Dr. Pennington that he would need MRI of brain and 2 U PRBC and dc back to [facility] tomorrow morning if stable
Plan: CM will follow to provide medical updates to [facility] as related to patient's needs when returning to [facility].
[facility] Report: [phone]
[facility]
[2025-06-22] MEDS: LANTUS 0.28 UNITS SC (12:35)
[2025-06-22] MEDS: RANEXA EXTENDED RELEASE 1000 MG PO (12:36)
[2025-06-22] MEDS: CYMBALTA DELAYED RELEASE 30 MG PO (12:36)
[2025-06-22] MEDS: DEMADEX 10 MG PO (12:36)
[2025-06-22] MEDS: IMDUR (EXTENDED RELEASE) 60 MG PO (12:36)
--- NOTE | 2025-06-22 13:32 | W.DCSUMMARY ---
Discharge Summary
Discharge Data
Date of Admission: 06/21/25
Date of Discharge: 06/22/25
-
Pending Results: No
Hospital Course
Primary diagnoses:
Acute blood loss anemia due to trauma to the left lower extremity stump
L-sided weakness
Type 1 diabetes mellitus with severe hyperglycemia
Secondary diagnoses:
Iron deficiency anemia
Coronary artery disease s/p PCI
Peripheral artery disease s/p B/L BKAs
Essential hypertension
Anxiety
Depression
Consultants:
Neurology
Vascular surgery
Imaging:
MRI brain: No acute intracranial abnormality.
MRA head: No MRA evidence for high-grade stenosis or occlusion in the [place].
MRA neck: No MRA evidence for high-grade stenosis or occlusion of the arterial vasculature in the neck.
29-year-old male who was admitted yesterday after presenting for bleeding from his left lower extremity stump as outlined in the H&P done on admission. Hospital course per problem list:
Acute blood loss anemia due to trauma to the left lower extremity stump: On admission the patient had direct pressure, TXA, epi injection, Surgicel, 10+ sutures in the ER however his stump continued to ooze and therefore the patient was admitted. He
was seen by vascular surgery 12/11AM and had no evidence of bleeding at that time. Vascular surgery signed off. The patient had underlying chronic iron deficiency anemia and his iron sulfate was continued. His hemoglobin dropped to 7.1 and he was
transfused 2 units of packed red blood cells prior to discharge.
L-sided weakness: This was acute on chronic. The patient was seen by neurology and was not a TNK candidate. Imaging above and no evidence of LVO or acute stroke. There was concern for malingering.
DM1: This was uncontrolled with severe hyperglycemia. He was seen by the diabetes nurse practitioner. His Premeal NovoLog was increased. His Lantus dose stayed the same.
Discharge Plan
-
Patient Disposition: Skilled Nursing
Discharge Diagnosis/Procedures: Acute blood loss anemia
Condition: Good
Diet: Diabetic, Carb Controlled
Activity: With assistance
Driving Restrictions: No driving
Blood Work: BMP and CBC in 1 week, script from PCP
Referrals:
[facility] [Family Provider, General] - Immediately
Prescriptions:
New
insulin aspart U-100 100 unit/mL (3 mL) Insulin Pen
8 unit SC AC Qty: 0 0RF
Continued
atorvastatin 80 mg Tablet
80 mg PO HS
carvedilol 25 mg Tablet
25 mg PO BID
aspirin 81 mg Tablet,Delayed Release (Dr/Ec)
81 mg PO DAILY
isosorbide mononitrate 60 mg Tablet Extended Release 24 Hr
60 mg PO DAILY
ranolazine 1,000 mg Tablet Extended Release 12 Hr
1,000 mg PO BID
gabapentin 300 mg Capsule
300 mg PO TID
duloxetine 30 mg Capsule,Delayed Release(Dr/Ec)
30 mg PO DAILY
mirtazapine 30 mg Tablet
30 mg PO HS
ferrous sulfate [FeroSul] 325 mg (65 mg iron) Tablet
325 mg PO BID Qty: 10 0RF
amlodipine 5 mg tablet
5 mg PO DAILY
torsemide 10 mg Tablet
10 mg PO DAILY
docusate sodium 100 mg capsule
100 mg PO BIDPRN PRN (Reason: Constipation)
doxycycline hyclate 100 mg Capsule
100 mg PO Q12 Qty: 12 0RF
insulin glargine 100 unit/mL (3 mL) Insulin Pen
28 unit SC BID Qty: 0 0RF
vancomycin 125 mg Capsule
125 mg PO DAILY
Saccharomyces boulardii [Florastor] 250 mg Capsule
250 mg PO BID
Discontinued
Humulin R Regular U-100 Insuln 100 unit/mL Solution
4 unit SC ACHS
Discharge Orders:
Discharge Patient (As Directed); Ordered 06/22/25
Ordered By: Deandre Pennington
Discharge Date and Time
Print Language: MAURITANIAN
--- NOTE | 2025-06-22 14:12 | CON.MD ---
Consultation - Medical
-
this consult done today jun 22 2025. patient seen chart reviewed. spoke with dr connor and neurology. the patient is a 29 year old man referred from [facility]. he has hx of many serious medical issues including but not limited to iddm with amputation of
his right leg (bka) as wel as amputation of toes. the former occurred in 2022 the latter more recently. there is also hx cad w hx mi, htn chf guillain barre sydrome with cidp subsequently for which he normally has plasma exchange q 2 mos but has
not had any since october past as he has been at [facility] and for one reason or another they were postponed. he is here bc bleeding from the stump thought secondary to traumatic injury. while here c.o l sided weakness. so far cva ruled out. he believes
it began in january wh he would have had the plasma exch. typically he gets weaker as he approaches time for the exchange and his situation improves once it is done. says weakness acutely worse two weeks ago and in the past few days. he is worried
if he returns to [facility] without it being addressed he will fall again and again and be brought back. he was treated for depression for the past couple years. he experienced a lot of in his family since 2019. he was initially on zoloft then
changed to cymbalta 30 mg daily and remeron 30 mg q hs. he feels they have helped with depression significantly. sleep not great at retirement. apppetite is ok. he can enjoy some activities but enjoyment limited by med concerns. he is not suicidal
nothing to suggest psychosis. no ill effects from psych meds
past psych hx no hospital stays or recent therapy. see above re antidepressants
medical hx see above patient noted w hgb 7 he is currently receiving transfusion. ecg with nl qtc glucose 240 this am bp 152/81 mri brain no acute mra brain and neck no acute changes patient being rx for uti positive culture blood cultures
no growth.
fh deined
substance abuse denied
social hx patient born and raised in [place]. does not have contact w fa. mother as are some of his close relatives eg aunt. he does have two sibs in [place]. 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 [place] facing ch[place] in [place] i did not ask him
about them. he maintains he is innocent and god and the courts will prove it.
mse alert ox3 cooperative pleasant. speech and thought process coherent and goal oriented mood is neutral affect ok no si no hi no psychosis aver intelligence insight and judgment seem ok
dx unspecified depression
recommendation i have been asked whether patient may be malingering. i cannot answer this. he appeared to me to be sincere although obviously one can postulate that there could be secondary gain here. no one can deny that he has been very ill and
is plagued with chronic cardiovascular disease. spoke with ms arana and dr jones from neurology. they will ask apartment community assistant manager to obtain records to see actually what has been done for mr coleman and get his records. for now would continue with
yael. psych will follow if he remains.
--- NOTE | 2025-06-22 14:48 | PN.DE.MGMTRT ---
Insulin Management
- -
06/22/2025: Diabetes Management Consult Follow up
29 year old male prisoner from [facility] who presented to [facility] ED c/o left stump oozing s/p 'banging it on a transport van.' Pt has had many admissions and ER visits since January for nonhealing wounds and bleeding events d/t
injuries to surgical sites.
[facility]: T1DM, R BKA, L toe amputation, [place], CHF, HTN, CKD 3, AL, GERD, s/p left BKA on 04/21. He is well known to diabetes service from 03/14-05/13 hospital stay. Prior to admission was receiving Lantus 28 units BID and Humulin R insulin 4
units QID. Recent 6.6%, (noted for chronic Anemia, hgb 8.0), Cr 1, eGFR > 60 today.
06/21 Patient received lantus 28 units BID with regular insulin 4 units with breakfast and lunch. Regular insulin changed to novolog 6 units with dinner. HS glucose 387
06/22 Patient is awake alert and oriented sitting up in bed with two guards at bedside. Able to discuss diabetes care. Fasting Glucose today was 240. Will continue lantus 28 units BID and increase AC novolog from 6 units to 8 units.
Discussed with nurse
Will follow
Diabetes History
- -
Type of Diabetes: 1
Pre-Admission Diabetes Regimen
06/22/25
06:50
Creatinine 1.0
Insulin Pump Settings
IP Diabetes Regimen
06/21/25 06/21/25 06/22/25
17:49 20:07 06:50
Glucose 240 H
POC Glucose 339 H 387 H
06/22/25
07:52
Glucose
POC Glucose 249 H
Meal type: Breakfast
Amount consumed: 100%
Patient Education
--- NOTE | 2025-06-22 17:00 | PTCARENOTE ---
Patient able to turn self in bed. Patient straight cathed himself x2. Patient c/o left stump pain 02/20. Dilaudid given with good relief. Left stump dressing changed. Small amount of serous sang drainage noted. Patient's right stump incision scabbed
and approximated. RN observed patient picking scab and cause small amount of bleeding. Patient instructed not to pick scabs off. Patient verbalized understanding. Patient continues with c/o left arm weakness. When patient's left arm is not hand
cuffed, patient was observed using left and right hand to pull himself forward in the stretcher. Earlier patient could not straighten fingers when asked.
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
[2025-06-23 08:26] LABS: Glucose - Point of Care 227 mg/dl (70-99)
[2025-06-23 08:26] LABS: Glucose - Point of Care 173 mg/dl (70-99)
== END 2025-06-22 19:21 | DRG 565 ==
LOC: ED 01:27
PROVIDERS: ADMITTING PHYSICIAN Hospitalist; ATTENDING PHYSICIAN Internal Medicine; CONSULT PHYSICIAN Psychiatry & Neurology Neurology; CONSULT PHYSICIAN Psychiatry & Neurology Psychiatry; CONSULT PHYSICIAN Surgery Vascular Surgery; EMERGENCY PHYSICIAN Emergency Medicine
PROC: 30233N1 Transfusion of Nonautologous Red Blood Cells into Peripheral Vein, Percutaneous Approach (ICD-10-PCS; 2025-06-22)
DX: T87.89 Other complications of amputation stump (principal); D62 Acute posthemorrhagic anemia; G61.0 Guillain-Barre syndrome; G61.81 Chronic inflammatory demyelinating polyneuritis; I13.0 Hypertensive heart and chronic kidney disease with heart failure and stage 1 through stage 4 chronic kidney disease, or unspecified chronic kidney disease; E10.65 Type 1 diabetes mellitus with hyperglycemia; N18.30 Chronic kidney disease, stage 3 unspecified; I25.10 Atherosclerotic heart disease of native coronary artery without angina pectoris; E78.00 Pure hypercholesterolemia, unspecified; D50.9 Iron deficiency anemia, unspecified; F32.A Depression, unspecified; I50.9 Heart failure, unspecified; F41.9 Anxiety disorder, unspecified; R53.1 Weakness; E10.22 Type 1 diabetes mellitus with diabetic chronic kidney disease; K21.9 Gastro-esophageal reflux disease without esophagitis; E10.51 Type 1 diabetes mellitus with diabetic peripheral angiopathy without gangrene; Y83.5 Amputation of limb(s) as the cause of abnormal reaction of the patient, or of later complication, without mention of misadventure at the time of the procedure; Y92.148 Other place in prison as the place of occurrence of the external cause; Z89.512 Acquired absence of left leg below knee; Z89.511 Acquired absence of right leg below knee; I25.2 Old myocardial infarction; Z95.5 Presence of coronary angioplasty implant and graft; Z88.6 Allergy status to analgesic agent; Z88.1 Allergy status to other antibiotic agents; Z88.5 Allergy status to narcotic agent; Z88.0 Allergy status to penicillin; Z91.018 Allergy to other foods; Z91.048 Other nonmedicinal substance allergy status; Z79.82 Long term (current) use of aspirin; Z79.4 Long term (current) use of insulin; Z79.899 Other long term (current) drug therapy; Z88.8 Allergy status to other drugs, medicaments and biological substances
CPT/HCPCS: 70544; 70548; 70551; 80048; 82962; 85027; 86850; 86900; 86901; 86920; A9585; P9016